=== PATIENT | female | born 1955 | race Caucasian/White ===

== ENCOUNTER → 2017-05-21 10:48 | Outpatient (CLI) | payer OTHER, SELFPAY ==
[2017-05-21 12:13] LABS: Erythrocyte Sedimentation Rate 26 mm/hr (0-30)
[2017-05-21 12:18] LABS: Hematocrit 39.1 % (37-47); Hemoglobin 10.9 g/dl (12.0-15.0); Mean Corp Hgb Conc 27.9 g/gl (32-36); Mean Corpuscular Hgb 19.4 pg (27.0-32.0); Mean Corpuscular Volume 69.6 fL (81-99); Mean Platelet Vol. 10.9 fl (6.2-12.0); Platelet Count 321 K/mm3 (150-450); RBC Distribution Width CV 16.2 % (11.6-14.6); RBC Distribution Width SD 40.8 fl (35.1-43.9); Red Blood Count 5.62 M/mm3 (4.2-5.4)
[2017-05-21 12:28] LABS: ALB/GLOB Ratio 0.8 RATIO (0.9-2.4); AST(SGOT) 16 U/L (15-37); Alanine Aminotransfer ALT/SGPT 20 U/L (13-56); Albumin, Serum 3.2 g/dL (3.2-5.0); Alkaline Phosphatase 50 U/L (45-117); Anion Gap 6 (5-15); BUN 13 mg/dL (7-18); BUN/Creat Ratio 17.9 RATIO (10-20); CRP 5.69 mg/L (0.0-3.0); Calcium,Total 8.4 mg/dL (8.5-10.1); Chloride 103 mmol/L (98-107); Creatinine, Serum 0.73 mg/dL (0.55-1.02); EST Glomerular Filtration Rate 86 mL/min (>60); Est Glom Filt Rate - Afr Amer 104 mL/min (>60); Globulin 3.8 g/dL (2.2-4.2); Glucose 100 mg/dL (74-106); Potassium 4.2 mmol/L (3.5-5.1); Sodium Level 138 mmol/L (136-145)
[2017-05-21 12:44] LABS: Scan Indicated on CBC? Y/N YES- FLAGS NOTED
== END ==
PROVIDERS: Family Provider Family Medicine; PCP Family Medicine; Visit Provider Internal Medicine Gastroenterology
DX: K50.90 Crohn's disease, unspecified, without complications (principal)
CPT/HCPCS: 36415; 80053; 85027; 85652; 86140

== ENCOUNTER → 2017-06-09 15:34 | Outpatient (CLI) | payer OTHER, SELFPAY ==
[2017-06-09 17:51] LABS: AST(SGOT) 12 U/L (15-37); Alanine Aminotransfer ALT/SGPT 16 U/L (13-56); Albumin, Serum 3.5 g/dL (3.2-5.0); Alkaline Phosphatase 52 U/L (45-117); Bilirubin, Direct 0.09 mg/dL (0.00-0.30); Protein, Total 7.5 g/dL (6.4-8.2)
[2017-06-09 17:58] LABS: Absolute Lymphocyte Count 1.08 X10^3/ul (0.83-4.51); Basophil# 0.08 X10^3/uL; Basophil% 0.7 % (0-1); Eosinophil# 0.08 X10^3/uL; Eosinophils% 0.7 % (0-5); Hematocrit 43.8 % (37-47); Hemoglobin 12.7 g/dl (12.0-15.0); Lymphocyte # 1.08 X10^3/ul (4.0); Mean Corpuscular Hgb 21.1 pg (27.0-32.0); Mean Corpuscular Volume 72.6 fL (81-99); Mean Platelet Vol. 11.5 fl (6.2-12.0); Monocyte# 0.55 X10^3/uL; Monocyte% 5.1 % (0-10); Neutrophil # 9.03 X10^3/uL (2.7-7.7); Neutrophil % 83.3 % (47-70); Platelet Count 310 K/mm3 (150-450); RBC Distribution Width SD 58.9 fl (35.1-43.9); Red Blood Count 6.03 M/mm3 (4.2-5.4); White Blood Count 10.8 K/mm3 (4.4-11.0)
[2017-06-09 17:59] LABS: Differential Indicated SCAN CRITERIA MET; POSITIVE COUNT NO; POSITIVE DIFFERENTIAL NO; POSITIVE MORPHOLOGY YES
[2017-06-09 18:19] LABS: Differential Comment SCANNED
== END ==
PROVIDERS: Family Provider Family Medicine; PCP Family Medicine; Visit Provider Internal Medicine Gastroenterology
DX: K50.90 Crohn's disease, unspecified, without complications (principal)
CPT/HCPCS: 36415; 80076; 85025

== ENCOUNTER → 2017-07-07 11:06 | Outpatient (CLI) | payer OTHER, SELFPAY ==
[2017-07-07 12:55] LABS: AST(SGOT) 12 U/L (15-37); Alanine Aminotransfer ALT/SGPT 16 U/L (13-56); Albumin, Serum 3.1 g/dL (3.2-5.0); Alkaline Phosphatase 48 U/L (45-117); Bilirubin, Direct 0.08 mg/dL (0.00-0.30); Globulin 3.5 g/dL (2.2-4.2); Protein, Total 6.6 g/dL (6.4-8.2)
[2017-07-07 13:32] LABS: Absolute Lymphocyte Count 1.12 X10^3/ul (0.83-4.51); Absolute Neutrophil Count 4.2 X10^3/uL (2.0-7.7); Basophil# 0.08 X10^3/uL; Basophil% 1.3 % (0-1); Eosinophil# 0.13 X10^3/uL; Eosinophils% 2.1 % (0-5); Hematocrit 43.2 % (37-47); Hemoglobin 13.3 g/dl (12.0-15.0); Lymphocyte # 1.12 X10^3/ul (4.0); Lymphocyte % 18.2 % (19-41); Mean Corp Hgb Conc 30.8 g/gl (32-36); Mean Corpuscular Hgb 23.5 pg (27.0-32.0); Mean Corpuscular Volume 76.2 fL (81-99); Mean Platelet Vol. 10.9 fl (6.2-12.0); Monocyte# 0.57 X10^3/uL; Monocyte% 9.3 % (0-10); Neutrophil # 4.23 X10^3/uL (2.7-7.7); Neutrophil % 68.9 % (47-70); Platelet Count 283 K/mm3 (150-450); RBC Distribution Width CV 25.2 % (11.6-14.6); RBC Distribution Width SD 67.8 fl (35.1-43.9); Red Blood Count 5.67 M/mm3 (4.2-5.4); White Blood Count 6.1 K/mm3 (4.4-11.0)
[2017-07-07 13:33] LABS: Differential Indicated SCAN CRITERIA MET; POSITIVE COUNT NO; POSITIVE DIFFERENTIAL NO; POSITIVE MORPHOLOGY YES
== END ==
PROVIDERS: Family Provider Family Medicine; PCP Family Medicine; Visit Provider Internal Medicine Gastroenterology
DX: K50.90 Crohn's disease, unspecified, without complications (principal)
CPT/HCPCS: 36415; 80076; 85025

== ENCOUNTER → 2017-07-28 10:14 | Outpatient (CLI) | payer OTHER, SELFPAY ==
--- NOTE | 2017-07-28 10:15 | BI_ITS ---
MAMMOGRAPHY - BILATERAL SCREENING REASON FOR EXAM: Female, 62 years old. Routine annual screening examination. PERTINENT HISTORY: Non-contributory. History of prior bilateral breast reduction surgery. TECHNIQUE: Digital bilateral breast papa (3D mammographic acquisition) in the CC and MLO projections. 2-D mediolateral oblique (MLO) and craniocaudad (CC) views of both breasts were obtained. CAD: Full Field Digital Mammography with Computer Added Detection was performed. COMPARISON: Comparison is made with prior study dated April 18, 2016 and January 13, 2015. FINDINGS: Breast Composition: There are scattered areas of fibroglandular density. There are no dominant masses or suspicious calcifications. The patient is status post bilateral reduction surgery. Once again, a bandlike density is seen in the upper outer aspect of the left breast as well as in the deep mid medial portion of the right breast. Calcifications are seen within it most likely representing postoperative changes and calcifications. The calcifications have progressed in the left breast as compared to prior study. No other significant abnormalities are identified. BI/SCREENING MAMM (CAD), BILAT IMPRESSION: Stable bilateral screening mammogram. Yearly follow-up mammogram recommended. (A) ASSESSMENT CATEGORY: BIRADS Category 2: Benign. A letter regarding these results will be sent to the patient by the facility within 30 days. Approximately 10% of breast cancers are not detected by mammography. A normal mammogram should not delay biopsy of a clinically suspicious abnormality. [id number] Electronically Signed: Bob Oro MD at 12:24 EDT Tel [phone], Service support ,
== END ==
PROVIDERS: Family Provider Family Medicine; PCP Family Medicine; Visit Provider Obstetrics & Gynecology
DX: Z12.31 Encounter for screening mammogram for malignant neoplasm of breast (principal)
CPT/HCPCS: 77063; 77067

== ENCOUNTER → 2017-08-12 08:00 | Outpatient (CLI) | payer OTHER, SELFPAY ==
--- NOTE | 2017-08-12 08:00 | DT_ITS ---
This patient was seen during an EMR downtime August 11, 2017 - August 18, 2017. This patient may have a combination of paper and electronic documentation or all paper documentation. All documentation is viewable within the e-chart portion of [employer] for each patient visit.
== END ==
PROVIDERS: Family Provider Family Medicine; PCP Family Medicine; Visit Provider Obstetrics & Gynecology
DX: Z12.4 Encounter for screening for malignant neoplasm of cervix (principal)
CPT/HCPCS: 88175; G0145

== ENCOUNTER → 2017-09-15 11:04 | Outpatient (CLI) | payer OTHER, SELFPAY ==
[2017-09-15 12:10] LABS: Absolute Lymphocyte Count 0.79 X10^3/ul (0.83-4.51); Absolute Neutrophil Count 3.8 X10^3/uL (2.0-7.7); Basophil# 0.06 X10^3/uL; Basophil% 1.1 % (0-1); Eosinophil# 0.12 X10^3/uL; Eosinophils% 2.3 % (0-5); Hematocrit 43.7 % (37-47); Hemoglobin 13.5 g/dl (12.0-15.0); Lymphocyte # 0.79 X10^3/ul (4.0); Mean Corp Hgb Conc 30.9 g/gl (32-36); Mean Corpuscular Hgb 25.7 pg (27.0-32.0); Mean Corpuscular Volume 83.1 fL (81-99); Mean Platelet Vol. 11.1 fl (6.2-12.0); Monocyte# 0.48 X10^3/uL; Monocyte% 9.1 % (0-10); Neutrophil % 72.3 % (47-70); Platelet Count 289 K/mm3 (150-450); RBC Distribution Width CV 15.6 % (11.6-14.6); RBC Distribution Width SD 45.1 fl (35.1-43.9); Red Blood Count 5.26 M/mm3 (4.2-5.4); White Blood Count 5.3 K/mm3 (4.4-11.0)
[2017-09-15 12:11] LABS: AST(SGOT) 13 U/L (15-37); Alanine Aminotransfer ALT/SGPT 23 U/L (13-56); Albumin, Serum 3.1 g/dL (3.2-5.0); Alkaline Phosphatase 38 U/L (45-117); Bilirubin, Direct 0.08 mg/dL (0.00-0.30); Globulin 3.5 g/dL (2.2-4.2); Protein, Total 6.6 g/dL (6.4-8.2)
[2017-09-15 12:24] LABS: POSITIVE COUNT NO; POSITIVE DIFFERENTIAL NO; POSITIVE MORPHOLOGY NO
== END ==
PROVIDERS: Family Provider Family Medicine; PCP Family Medicine; Visit Provider Internal Medicine Gastroenterology
DX: K50.90 Crohn's disease, unspecified, without complications (principal)
CPT/HCPCS: 36415; 80076; 85025

== ENCOUNTER → 2017-10-17 15:00 | Outpatient (CLI) | payer OTHER, SELFPAY ==
[2017-10-17 17:33] LABS: Absolute Lymphocyte Count 0.88 X10^3/ul (0.83-4.51); Absolute Neutrophil Count 4.7 X10^3/uL (2.0-7.7); Basophil# 0.05 X10^3/uL; Basophil% 0.8 % (0-1); Eosinophil# 0.06 X10^3/uL; Hematocrit 43.4 % (37-47); Hemoglobin 13.8 g/dl (12.0-15.0); Lymphocyte # 0.88 X10^3/ul (4.0); Lymphocyte % 14.1 % (19-41); Mean Corp Hgb Conc 31.8 g/gl (32-36); Mean Corpuscular Hgb 26.8 pg (27.0-32.0); Mean Corpuscular Volume 84.4 fL (81-99); Mean Platelet Vol. 11.3 fl (6.2-12.0); Monocyte# 0.48 X10^3/uL; Monocyte% 7.7 % (0-10); Neutrophil # 4.74 X10^3/uL (2.7-7.7); Neutrophil % 76.1 % (47-70); POSITIVE COUNT NO; POSITIVE DIFFERENTIAL NO; POSITIVE MORPHOLOGY NO; Platelet Count 302 K/mm3 (150-450); RBC Distribution Width CV 14.6 % (11.6-14.6); RBC Distribution Width SD 44.4 fl (35.1-43.9); Red Blood Count 5.14 M/mm3 (4.2-5.4); White Blood Count 6.2 K/mm3 (4.4-11.0)
== END ==
PROVIDERS: Family Provider Family Medicine; PCP Family Medicine; Visit Provider Internal Medicine Gastroenterology
DX: K50.90 Crohn's disease, unspecified, without complications (principal)
CPT/HCPCS: 36415; 85025

== ENCOUNTER → 2017-11-06 15:16 | Outpatient (CLI) | payer OTHER, SELFPAY ==
[2017-11-06 18:34] LABS: Ferritin 22 ng/mL (8-252); Iron 31 ug/dL (50-170); T4 Free Direct 0.99 ng/dL (0.76-1.46); Thyroid Stim Hormone (TSH) 1.52 uIU/mL (0.358-3.74)
[2017-11-07 09:22] LABS: Vitamin B12 259 pg/mL (211-911)
== END ==
PROVIDERS: Family Provider Family Medicine; PCP Family Medicine; Visit Provider Family Medicine
DX: E04.2 Nontoxic multinodular goiter (principal); D64.9 Anemia, unspecified; I48.91 Unspecified atrial fibrillation; K50.90 Crohn's disease, unspecified, without complications
CPT/HCPCS: 36415; 82607; 82728; 83540; 84439; 84443

== ENCOUNTER → 2017-12-22 13:06 | Outpatient (CLI) | payer OTHER, SELFPAY ==
[2017-12-22 14:03] LABS: Absolute Neutrophil Count 2.8 X10^3/uL (2.0-7.7); Basophil# 0.04 X10^3/uL; Basophil% 0.9 % (0-1); Eosinophil# 0.11 X10^3/uL; Eosinophils% 2.3 % (0-5); Hematocrit 44.7 % (37-47); Hemoglobin 14.2 g/dl (12.0-15.0); Lymphocyte % 25.6 % (19-41); Mean Corp Hgb Conc 31.8 g/gl (32-36); Mean Corpuscular Hgb 26.9 pg (27.0-32.0); Mean Corpuscular Volume 84.8 fL (81-99); Mean Platelet Vol. 11.5 fl (6.2-12.0); Monocyte# 0.51 X10^3/uL; Monocyte% 10.9 % (0-10); Neutrophil # 2.82 X10^3/uL (2.7-7.7); Neutrophil % 60.1 % (47-70); Platelet Count 323 K/mm3 (150-450); RBC Distribution Width CV 14.4 % (11.6-14.6); Red Blood Count 5.27 M/mm3 (4.2-5.4); White Blood Count 4.7 K/mm3 (4.4-11.0)
[2017-12-22 14:07] LABS: POSITIVE COUNT NO; POSITIVE DIFFERENTIAL NO; POSITIVE MORPHOLOGY NO
[2017-12-22 14:20] LABS: AST(SGOT) 20 U/L (15-37); Alanine Aminotransfer ALT/SGPT 23 U/L (13-56); Albumin, Serum 3.4 g/dL (3.2-5.0); Alkaline Phosphatase 43 U/L (45-117); Bilirubin, Direct 0.14 mg/dL (0.00-0.30); Protein, Total 7.4 g/dL (6.4-8.2)
== END ==
PROVIDERS: Family Provider Family Medicine; PCP Family Medicine; Referring Provider Internal Medicine Gastroenterology; Visit Provider Internal Medicine Gastroenterology
DX: K50.90 Crohn's disease, unspecified, without complications (principal)
CPT/HCPCS: 36415; 80076; 85025

== ENCOUNTER → 2018-01-15 08:31 | Outpatient (CLI) | payer OTHER, SELFPAY ==
[2018-01-15 10:33] LABS: Absolute Lymphocyte Count 1.11 X10^3/ul (0.83-4.51); Absolute Neutrophil Count 3.1 X10^3/uL (2.0-7.7); Basophil# 0.03 X10^3/uL; Basophil% 0.6 % (0-1); Eosinophil# 0.11 X10^3/uL; Eosinophils% 2.3 % (0-5); Hematocrit 43.3 % (37-47); Hemoglobin 13.3 g/dl (12.0-15.0); Lymphocyte # 1.11 X10^3/ul (4.0); Lymphocyte % 22.7 % (19-41); Mean Corp Hgb Conc 30.7 g/gl (32-36); Mean Corpuscular Hgb 26.4 pg (27.0-32.0); Mean Corpuscular Volume 85.9 fL (81-99); Monocyte# 0.52 X10^3/uL; Monocyte% 10.7 % (0-10); Neutrophil % 63.5 % (47-70); Platelet Count 248 K/mm3 (150-450); RBC Distribution Width CV 14.9 % (11.6-14.6); Red Blood Count 5.04 M/mm3 (4.2-5.4); White Blood Count 4.9 K/mm3 (4.4-11.0)
[2018-01-15 10:36] LABS: POSITIVE COUNT NO; POSITIVE DIFFERENTIAL NO; POSITIVE MORPHOLOGY NO
== END ==
PROVIDERS: Family Provider Family Medicine; PCP Family Medicine; Referring Provider Internal Medicine Gastroenterology; Visit Provider Internal Medicine Gastroenterology
DX: K50.90 Crohn's disease, unspecified, without complications (principal)
CPT/HCPCS: 36415; 85025

== ENCOUNTER 2018-01-25 14:19 | Emergency (ER) | payer OTHER, SELFPAY ==
[2018-01-25 14:20] VITALS: BP 152/76; PULSE 70; RESP 18; TEMP 36.3; O2SAT 98; BMI 34.4
--- NOTE | 2018-01-25 14:52 | ED.VISSUMM ---
- ER Visit Summary Date of Service: 01/25/18 Chief Complaint: [] Lumbar back pain for about a week after straining to lift objects History of Present Illness: The patient is a 62 F [] she of chronic lumbar back pain, Crohn's disease, she indicates her lumbar back pain related to disc disease and spinal stenosis she indicates a few days ago she was basically pulling objects up some stairs the next day she felt hot constant pain to her lumbar back that is worse when she moves or leans back turns etc. better when she rests she has had no direct trauma any part of her body her bowel bladder habits have been normal she had no fever or cough she is under pain management and she receives back injections and other therapies for her back, her Crohn's is also stable there is a consideration to change her to a different immunomodulating drug, she has had no fever no cough she does not believe this back illness related to her Crohn's it is very consistent with prior back flare she has had, she not been told she is back surgery Physical Examination: [] 152/76 General, no distress resting comfortably HEENT is generally unremarkable The neck is supple no adenopathy Cardiovascular, regular rate and rhythm Lungs, clear bilateral Abdomen, soft nontender Extremities, no clubbing cyanosis or edema Pain to the mid lumbar level. She is in no distress palpation of the area shows really no significant pain there is no bruising contusion or skin rash or lesion, Neurologic, awake alert answering questions appropriately moving all 4 extremities, she is able to stand and walk she can toe raise heel raise knee bend and walk about the room without difficulty there is no signs of cauda equina Test Results: [] Emergency Department Course and Treatment: [] Long conversation with the patient we discussed imaging she deferred that we discussed the differential she believes this is related to her chronic lumbar back condition and not related to something else she simply wants something for the pain, at this time she is treated with morphine IM Flexeril she will be discharged continue her home medications and she will follow with her pain management doctors tomorrow Treatment Plan: [] Disposition: [] Home stable Impression: [] Acute exacerbation of chronic lumbar back disorder This note was generated with [employer] software. It may contain incorrect words, spelling, and punctuation that were not noted in review of the chart prior to signing ED Disposition - Plan for ED Patient: Chief Complaint: Back Referrals: Matthew Wallace DO [Primary Care Provider] -
[2018-01-25] MEDS: morphine 8 MG/ML Syringe SC (14:55)
--- NOTE | 2018-01-25 14:57 | ED.DEP ---
ED Disposition - Plan for ED Patient: Chief Complaint: Back Instructions: ED Flank Pain Uncertain Cause, ED Spasm Back No Trauma Referrals: Matthew Wallace DO [Primary Care Provider] - Additional Instructions: Follow-up with all of your outpatient providers for further management tomorrow
[2018-01-25 15:22] VITALS: BP 128/56; PULSE 74; RESP 18; O2SAT 96
== END 2018-01-25 15:36 | disposition home or self-care (01) ==
LOC: ED 15:10
PROVIDERS: Emergency Provider Emergency Medicine; Family Provider Family Medicine; PCP Family Medicine
DX: S39.012A Strain of muscle, fascia and tendon of lower back, initial encounter (principal); X50.0XXA Overexertion from strenuous movement or load, initial encounter; Y93.89 Activity, other specified; K50.90 Crohn's disease, unspecified, without complications; Z79.82 Long term (current) use of aspirin; Z79.899 Other long term (current) drug therapy
CPT/HCPCS: 96372; 99283

== ENCOUNTER → 2018-02-03 09:14 | Outpatient (CLI) | payer OTHER, SELFPAY ==
[2018-01-25 14:20] VITALS: BMI 34.4
--- NOTE | 2018-02-03 09:30 | MRI_ITS ---
STUDY: MRI LUMBAR SPINE WITHOUT CONTRAST REASON FOR EXAM: Female, 62 years old. LOW BACK PAIN, LEG WEAKNESS. TECHNIQUE: Standardized fat and water weighted pulse sequences were obtained in the sagittal and axial planes. COMPARISON: March 06, 2011 FINDINGS: T12-L1: Normal endplates. Normal disc height, hydration and morphology. Normal bilateral facet joints. Normal central canal and bilateral lateral recesses. Normal bilateral intervertebral neural foramina. Normal lumbar lordosis. There is no substantial scoliosis. Normal conus medullaris that terminates at the T12 L1-2: Normal endplates. Normal disc height, hydration and morphology. Normal bilateral facet joints. Normal central canal and bilateral lateral recesses. Normal bilateral intervertebral neural foramina. L2-3: Normal endplates. Normal disc height, hydration and morphology. Normal bilateral facet joints. Normal central canal and bilateral lateral recesses. Normal bilateral intervertebral neural foramina. L3-4: There is minimal disc space narrowing and endplates spondylosis. There is decreased mild disc bulge and moderate facet hypertrophy with mild central canal and mild bilateral foraminal stenosis. L4-5: There is minimal disc space narrowing and endplates spondylosis. There is moderate facet arthropathy with grade 1 anterolisthesis and disc bulging with mild central canal stenosis. There is mild bilateral foraminal stenosis. Findings are stable since the prior examination L5-S1: There is minimal disc space narrowing and endplates spondylosis. There is mild facet adenopathy. Normal visualized sacral ala. Normal visualized paraspinous soft tissue structures. MRI/Spine Lumbar (Routine) IMPRESSION: Mild multilevel degenerative changes. L4/L5: Stable grade 1 anterolisthesis. Electronically Signed: Nav Ruiz MD at 9:24 EST Tel , Service support ,
--- OUTSIDE RECORDS SUMMARY | 2018-03-17 22:30 | XMS RPT_ITS ---
:1955 Author Organization OHIP Support Name Relationship Address Phone DANIEL ISADORA Unavailable [address] + [place] [address] R Unavailable Unavailable Unavailable REILLY, IBETH Unavailable Unavailable + JUSTICE, ISADORA Unavailable [address] + [place] [address] R Unavailable Unavailable Unavailable REILLY, IBETH Unavailable Unavailable + [place] [address] JUSTICE, ISADORA Unavailable [address] + [place] [address] R Unavailable Unavailable Unavailable REILLY, IBETH Unavailable Unavailable + [place] [address] JUSTICE, ISADORA Unavailable Unavailable + [place] [address] R Unavailable Unavailable Unavailable REILLY, IBETH Unavailable Unavailable + [place] [address] JUSTICE, ISADORA Unavailable Unavailable + [place] [address] R Unavailable Unavailable Unavailable REILLY, IBETH Unavailable Unavailable + [place] [address] JUSTICE, ISADORA Unavailable Unavailable + [place] [address] R Unavailable Unavailable Unavailable REILLY, IBETH Unavailable Unavailable + [place] [address] JUSTICE, ISADORA Unavailable Unavailable + [place] [address] R Unavailable Unavailable Unavailable REILLY, IBETH Unavailable Unavailable + [place] [address] JUSTICE, ISADORA Unavailable Unavailable + [place] [address] R Unavailable Unavailable Unavailable REILLY, IBETH Unavailable Unavailable + [place] [address] JUSTICE, ISADORA Unavailable Unavailable + [place] [address] R Unavailable Unavailable Unavailable REILLY, IBETH Unavailable Unavailable + [place] [address] ISADORA SANCHEZ Unavailable Unavailable + [place] [address] R Unavailable Unavailable Unavailable REILLY, IBETH Unavailable Unavailable + [place] [address] R Unavailable Unavailable Unavailable REILLY, IBETH Unavailable Unavailable + [place] [address] R Unavailable Unavailable Unavailable REILLY, IBETH Unavailable Unavailable + [place] [address] R Unavailable Unavailable Unavailable REILLY, IBETH Unavailable Unavailable + [place] [address] R Unavailable Unavailable Unavailable R Unavailable Unavailable Unavailable REILLY, IBETH Unavailable . + [place] [address] BAUGHAN, LEFTY Unavailable [address] + [place] [address] JUSTICE, KAREL Unavailable [address] + [place] [address] R Unavailable Unavailable Unavailable BAUGHAN, LEFTY Unavailable [address] + [place] [address] JUSTICE, KAREL Unavailable [address] + [place] [address] R Unavailable Unavailable Unavailable BAUGHAN, LEFTY Unavailable [address] + [place] [address] JUSTICE, KAREL Unavailable [address] + [place] [address] R Unavailable Unavailable Unavailable BAUGHAN, LEFTY Unavailable [address] + [place] [address] JUSTICE, KAREL Unavailable [address] + [place] [address] R Unavailable Unavailable Unavailable BAUGHAN, LEFTY Unavailable [address] + [place] [address] JUSTICE, KAREL Unavailable [address] + [place] [address] R Unavailable Unavailable Unavailable Care Team Providers Name Role Phone Andrew Keane Attending Unavailable Matthew Wallace Referring Unavailable Jabour, Vincent Attending Unavailable Jabour, Vincent Referring Unavailable Madison, Matthew Primary Care Unavailable Francisco Blair Attending Unavailable Johnnie, Francisco Referring Unavailable Madison, Matthew Primary Care Unavailable Madison, Matthew Primary Care Unavailable Nalini Evans Attending Unavailable Jabour, Vincent Attending Unavailable Jabour, Vincent Referring Unavailable Madison, Matthew Primary Care Unavailable Jabour, Vincent Attending Unavailable Jabour, Vincent Referring Unavailable Madison, Matthew Primary Care Unavailable Madison, Matthew Attending Unavailable Madison, Matthew Primary Care Unavailable Jabour, Vincent Attending Unavailable Jabour, Vincent Referring Unavailable Madison, Matthew Primary Care Unavailable Jabour, Vincent Attending Unavailable Jabour, Vincent Referring Unavailable Madison, Matthew Primary Care Unavailable Benekos, Carola Attending Unavailable Benekos, Carola Referring Unavailable Madison, Matthew Primary Care Unavailable Benekos, Carola Attending Unavailable Benekos, Carola Referring Unavailable Madison, Matthew Primary Care Unavailable Germán Dave Attending Unavailable Madison, Matthew Referring Unavailable Madison, Matthew Primary Care Unavailable Jabour, Vincent Attending Unavailable Jabour, Vincent Referring Unavailable Madison, Matthew Primary Care Unavailable Rhiannon Chávez Attending Unavailable Jabour, Vincent Attending Unavailable Madison, Matthew Primary Care Unavailable Jabour, Vincent Referring Unavailable Jabour, Vincent Attending Unavailable Madison, Matthew Primary Care Unavailable Samantha Marx NURSE SANE-C Attending Unavailable Madison, Matthew Primary Care Unavailable Stevan Saldana D.O. Attending Unavailable Madison, Matthew Primary Care Unavailable Stevan Saldana D.O. Attending Unavailable Madison, Matthew Referring Unavailable PROBLEMS PROBLEMS DATE TYPE CONDITION / CODE ATTENDING STATUS SOURCE 02/19/2018 Unknown Z20.1 - Contact Stevan Saldana Active [place] with and D.O. 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 / Z20.1(ICD-10) 02/12/2018 Unknown I48.0 - Paroxysmal Lakhwinder, Andrew Active [place] atrial fibrillation Community / I48.0(ICD-10) Hospital Repository 02/12/2018 Unknown I10 - Essential Lakhwinder, Taylor Active [place] (primary) Community hypertension / Hospital I10(ICD-10) Repository 11/06/2017 Unknown E04.2 - Nontoxic Madison, Matthew Active [place] multinodular goiter Community / E04.2(ICD-10) Hospital Repository 11/06/2017 Unknown D64.9 - Anemia, Matthew Wallace Active [place] unspecified / Community D64.9(ICD-10) Hospital Repository 11/06/2017 Unknown I48.91 - Matthew Wallaec Active [place] Unspecified atrial Community fibrillation / Hospital I48.91(ICD-10) Repository 11/06/2017 Unknown K50.90 - Crohn's Matthew Wallace Active [place] disease, Community unspecified, Hospital without Repository complications / K50.90(ICD-10) 09/03/2017 Unknown Z12.4 - Encounter Carola Gary Active [place] for screening for Community malignant neoplasm Hospital of cervix / Repository Z12.4(ICD-10) 07/28/2017 Unknown Z12.31 - Encounter AmintasCarola Active [place] for screening Community mammogram for Hospital malignant neoplasm Repository of breast / Z12.31(ICD-10) 07/08/2017 Unknown R00.2 - Germán Dave Active [place] Palpitations / Community R00.2(ICD-10) Hospital Repository PROCEDURES PROCEDURES No Procedure Records FoundRESULTS RESULTS PULMONARY VISIT REPORT Observed: 02/19/2018 Status: F Source: [place] 11:14 AM [facility] REPOSITORY [facility] Pulmonary Medicine of [address] [place] [address] OFFICE VISIT Date of Service: 02/19/18 MR#: [id number] Acct: [id number] Name: AMANDA SANCHEZ Rep #: [id number] : 1955 Provider: Stevan Saldana D.O. Age/Sex: 62/F Location: [facility] Status: Signed Assessment AND Plan 1. IBD (inflammatory bowel disease) K52.9 Plan The patient has a history of Crohn's disease and is currently being considered for the initiation of Stelara. As part of her initial workup and interferon gamma release assay was completed and found to be positive. However, the patient does have a history of latent TB, having been treated previously in the by the health department. She has no active pulmonary symptoms. 2. TB (tuberculosis) contact Z20.1 Plan As noted above, the patient has a history of latent TB that was previously treated. A plain film chest x-ray was obtained this morning and revealed no acute cardiopulmonary process. Given that the patient is asymptomatic and has already been previously treated, there is no reason from a pulmonary perspective that she could not proceed with treatment. If there is additional concern, would recommend gastroenterology refer the patient to infectious diseases. However, at this time, I do not feel that this is warranted. Orders Orders: Plan Detail Follow Up PRN HPI HPI Comments Details: The patient is a 62-year-old female who presents to the clinic today for clearance prior to initiation of systemic immunotherapy for a diagnosis of Crohn's disease. The patient is currently being followed by Dr. Facundo Brody. 6 pages of outside medical records were personally reviewed at today's office visit. The patient does have a history of paroxysmal atrial fibrillation but is not currently anticoagulated due to a previous history of craniotomy as well as anemia related to her Crohn's disease. She does report having been exposed previously to TD her family member in the . She did follow-up with local health department and was treated for latent TB at that time. Her crater and packer is currently considering the initiation of an immunomodulating agent to treat her inflammatory bowel disease. As part of her initial workup a QuantiFERON test was completed and found to be positive. Therefore, she was referred to our office. The patient does have a history of tobacco utilization, 1 pack/day x 20 years, but quit smoking completely 15 years ago. Denies any respiratory symptoms. Specifically, she denies shortness of breath, chest pain, cough, hemoptysis, fevers, chills or night sweats. She does report that her was also treated for latent TB at the same time that she was. He is also currently on an immunomodulating medication as well. Intake Vital Signs02/19/18 Height 5 ft 10 in 02/19/18 Weight: 241 lb 02/19/18 Body Mass Index (BMI) 34.5 Intake Visit Reasons: CLEARANCE FOR STELARA Accompanied by: Self Allergies acetaminophen [From Darvocet-N] Adverse Reaction (Severe, Verified 02/19/18 08:21) GI upset hydrocodone [From Vicodin] Adverse Reaction (Severe, Verified 02/19/18 08:21) GI upset propoxyphene [From Darvocet-N] Adverse Reaction (Severe, Verified 02/19/18 08:21) GI upset cortisone Adverse Reaction (Intermediate, Verified 02/19/18 08:21) Unknown Medications aspirin 81 mg tablet,delayed release 81 mg PO QDAY 07/02/17 [History Confirmed 02/19/18] fluoxetine 40 mg capsule 40 mg PO QDAY 07/02/17 [History Confirmed 02/19/18] omeprazole 20 mg capsule,delayed release 20 mg PO QDAY 07/02/17 [History Confirmed 02/19/18] oxycodone-acetaminophen 5 mg-325 mg tablet 1 tab PO .Q4-6H PRN tab 07/02/17 [History Confirmed 02/19/18] azathioprine 50 mg tablet 150 mg PO QDAY tab 07/08/17 [History Confirmed 02/19/18] budesonide DR - ER 3 mg capsule,delayed,extended release 9 mg PO QDAY ea 07/08/17 [History Confirmed 02/19/18] ferrous sulfate 325 mg (65 mg iron) tablet 325 mg PO BID tab 07/08/17 [History Confirmed 02/19/18] multivitamin tablet 1 tab PO QDAY 07/08/17 [History Confirmed 02/19/18] sotalol 80 mg tablet 80 mg PO BID #180 tab 11/04/17 [Rx Confirmed 02/19/18] Cranberry Fruit 01/25/18 [History Confirmed 02/19/18] Cyanocobalamin (Vitamin B-12) [Vitamin B-12] 1,500 mcg PO DAILY 01/25/18 [History Confirmed 02/19/18] Pregabalin [Lyrica] 25 mg PO DAILY 01/25/18 [History Confirmed 02/19/18] Promethazine HCl 12.5 mg PO Q8H PRN 01/25/18 [History Confirmed 02/19/18] PFSH Medical History Hypertension (Chronic) Palpitations (Chronic) Hyperlipidemia (Chronic) Paroxysmal atrial fibrillation (Chronic) Shortness of breath (Acute) Surgical History Hx of craniotomy (Resolved) thyroid lobectomy (Resolved) Family History Mother CAD (coronary artery disease) Myocardial infarction Father Hypertension Brother CAD (coronary artery disease) Social History Smoking Status: Never smoker alcohol intake: never substance use type: does not use caffeine: Yes Type: carbonated beverages Number of servings: 2 what type of physical activity do you participate in: walking frequency: 3-4 times per week duration: 30-45 minutes/day seatbelt use: always do you feel safe at home: Yes Review of Systems Const CONSTITUTIONAL: Negative anorexia, body ache, chills, daytime sleepiness, fever(s), night sweats, oral thrush, stops breathing during sleep, weight loss, sleeping in chair, fatigue, weight loss, weight gain, frequent colds, seasonal allergies, other, orthopnea or headache(s) EETM Ear Nose Throat Mouth: Positive hearing normal; negative hoarseness, dry mouth in morning, change in vision, itchy eyes, eye pain, swallowing Difficulty, ear pain, nose bleed, headache(s), mouth pain, nasal congestion, nasal discharge, post nasal drip, sinus pain, sinus pressure, sore throat, other or hard of hearing Cardio Cardiovascular: Negative chest pain, chest pain at rest, chest pain with activity, irregular heart rhythm, edema, shortness of breath when lying down, palpitations, murmur or other Resp Respiratory: Positive as per HPI; negative shortness of breath, pain with cough, wheezing, chest congestion, cough, chest tightness, pain on inspiration, inhalers, increase use of rescue inhalers, snoring, apnea or other Gastro Gastrointestional: Negative bloody stools, change in appetite, difficulty swallowing, reflux, hematemesis, melena stool, loose stool, constipation or other Genitourinary: Negative blood in urine, nocturia, pain with urination or other Musc Musculoskeletal: Negative body pain, back pain, neck pain or other Skin/Breast Skin/Breast: Negative dry skin, itching, rash, unusual bruising, breast lump or other Neuro Neurological: Negative restless legs, confusion, weakness or other Psych Psychocological: Negative abnormal sleep pattern, anxiety, thoughts of hurting self/others, hopelessness or other Lymph Lymphatic: Negative easy bleeding, easy bruising, swollen lymph nodes or other Exam Const Constitutional: Positive cooperative, in no acute respiratory distress, well developed, well nourished, good hygiene, obese and conversant Head Head: Positive normocephalic and atraumatic; negative cyanosis of lips/distal nose Eyes Eye: Positive clear conjunctiva; negative nystagmus or scleral abnormality Ears Ear: Positive external ears normal and hearing normal; negative hard of hearing Nose Nose: Positive external nose normal; negative epistaxis Mouth Mouth: Positive oral mucosae normal and posterior oropharynx is adequate; negative no lesions or post nasal drip Mallampati Score: II: Mallampati Score Neck Neck: Positive normal visual inspection and trachea midline; negative lymphadenopathy Chest Wall Chest: Positive symmetric chest movement Normal AP diameter. Resp lung sounds: Positive clear to auscultation and good air exchange; negative wheezes, rhonchi or rales Cardio Cardiac: Positive regular rate, regular rhythm, S1 normal and S2 normal; negative rub, gallop or murmur GI GI: Positive normal bowel sounds and obese Soft without distention Genitourinary: Positive deferred Musc Musculoskeletal: Positive steady gait Skin Pulmonary Skin Exam: Positive intact; negative lesion, ulcers, dermal atrophy or rash Pulses Pulse: Yes Pedal pulses present: Extremities Extremities: No clubbing, No cyanosis, No edema Neuro Neurologic: Yes no focal neuro deficits, Yes cooperative, Yes conversant Lymph Lymphatic: No lymphadenopathy Psych Appearance: Positive grossly normal Mental Status: Positive mental status grossly normal Mood: Positive congruent mood Affect: Positive normal affect Coding Level of Care Code Off vis,new,level 4 Diagnoses IBD (inflammatory bowel disease) K52.9 TB (tuberculosis) contact Z20.1 02/19/18 1114 <Electronically signed by Stevan Saldana DO> Date Stevan Saldana DO Cosigner Signature: Date (if applicable) CC: Facundo Brody CHEST PA AND LATERAL Observed: 02/19/2018 Status: F Source: [place] 9:12 AM [facility] REPOSITORY [facility] Imaging Services [address] [place], [place] [address] [address] Chest PA and Lateral MR#: [id number] Acct: [id number] Name: AMANDA SANCHEZ Rep #: [id number] : 1955 F 62 From: Armen Amezcua MD PCP: Matthew Wallace DO Status: REG CLI Study: Chest PA and Lateral Date of Exam: 02/19/18 Exam# [id number] Ordering Dr: Stevan Saldana DO HISTORY: SOBShort of Breath/DyspneaRAD - Chest EXAM: XR Chest 2 Views: COMPARISON: 05/20/2013 FINDINGS: No significant change. Normal heart size. No vascular congestion, pleural effusion, or acute pulmonary infiltration. Senescent changes of the aorta and dorsal spine. RAD/Chest PA and Lateral IMPRESSION: No acute disease or significant change. at 0315 Reported and signed by: Armen Amezcua MD Electronically Signed: Armen Amezcua, at 3:13 EST Tel , Service support , CC: Stevan Saldana D.O.; Matthew Wallace DO Watch Engineer: Signed CARDIOLOGY VISIT Observed: 02/12/2018 Status: F Source: [place] REPORT 10:10 AM [facility] REPOSITORY [facility] [address] [place] [address]. [address] [place] [address] OFFICE VISIT Date of Service: 02/12/18 MR#: [id number] Acct: [id number] Name: AMANDA SANCHEZ Rep #: [id number] : 1955 Provider: Andrew Keane MD Age/Sex: 62/F Location: [facility] [place] Status: Signed HPI HPI Chief Complaint: Follow-up visit. Details: AMANDA SANCHEZ, is a 62 F who presents to the office today for a follow-up visit. She is a lady with a history of paroxysmal atrial fibrillation, hypertension, hyperlipidemia. She returns for follow-up visit. She says that she has had only occasional short episodes of tachycardia. She has tolerated the above well she has had no dizziness or diaphoresis no near syncope or syncope. She has been compliant with all her medications. She has had no neck arm or jaw discomfort suggest angina. Her physical exam today demonstrates clear lung muhammad regular rate and rhythm and no pedal edema. Intake Vital Signs02/12/18 Height 5 ft 10 in 02/12/18 Weight: 239 lb 02/12/18 Body Mass Index (BMI) 34.2 02/12/18 Blood Pressure 118/72 02/12/18 Blood Pressure Location Lt brachial Intake Visit Reasons: 7 m fu Kennel Helper Required: No Is patient in pain?: No Allergies acetaminophen [From Darvocet-N] Adverse Reaction (Severe, Verified 02/12/18 09:53) GI upset hydrocodone [From Vicodin] Adverse Reaction (Severe, Verified 02/12/18 09:53) GI upset propoxyphene [From Darvocet-N] Adverse Reaction (Severe, Verified 02/12/18 09:53) GI upset cortisone Adverse Reaction (Intermediate, Verified 02/12/18 09:53) Unknown Medications aspirin 81 mg tablet,delayed release 81 mg PO QDAY 07/02/17 [History Confirmed 02/12/18] fluoxetine 40 mg capsule 40 mg PO QDAY 07/02/17 [History Confirmed 02/12/18] omeprazole 20 mg capsule,delayed release 20 mg PO QDAY 07/02/17 [History Confirmed 02/12/18] oxycodone-acetaminophen 5 mg-325 mg tablet 1 tab PO .Q4-6H PRN tab 07/02/17 [History Confirmed 02/12/18] azathioprine 50 mg tablet 150 mg PO QDAY tab 07/08/17 [History Confirmed 02/12/18] budesonide DR - ER 3 mg capsule,delayed,extended release 9 mg PO QDAY ea 07/08/17 [History Confirmed 02/12/18] ferrous sulfate 325 mg (65 mg iron) tablet 325 mg PO BID tab 07/08/17 [History Confirmed 02/12/18] multivitamin tablet 1 tab PO QDAY 07/08/17 [History Confirmed 02/12/18] sotalol 80 mg tablet 80 mg PO BID #180 tab 11/04/17 [Rx Confirmed 02/12/18] Cranberry Fruit 01/25/18 [History Confirmed 02/12/18] Cyanocobalamin (Vitamin B-12) [Vitamin B-12] 1,500 mcg PO DAILY 01/25/18 [History Confirmed 02/12/18] Pregabalin [Lyrica] 25 mg PO DAILY 01/25/18 [History Confirmed 02/12/18] Promethazine HCl 12.5 mg PO Q8H PRN 01/25/18 [History Confirmed 02/12/18] PFSH Medical History Hypertension (Chronic) Palpitations (Chronic) Hyperlipidemia (Chronic) Paroxysmal atrial fibrillation (Chronic) Shortness of breath (Acute) Surgical History Hx of craniotomy (Resolved) thyroid lobectomy (Resolved) Family History Mother CAD (coronary artery disease) Myocardial infarction Father Hypertension Brother CAD (coronary artery disease) Social History Smoking Status: Never smoker alcohol intake: never substance use type: does not use caffeine: Yes Type: carbonated beverages Number of servings: 2 what type of physical activity do you participate in: walking frequency: 3-4 times per week duration: 30-45 minutes/day seatbelt use: always do you feel safe at home: Yes ROS Const Const: Negative for fatigue, weakness, night sweats, excessive sweating, frequent falls, headache(s) or daytime sleepiness Eyes Eyes: Negative for loss of peripheral vision, transient loss of vision, blind spots, double vision or blurry vision ENT ENT: Negative for headache(s), dizziness, balance problems, Nosebleed/epistaxis, tongue swelling or lip swelling Cardio Chest Pain: No Palpitations: No Edema: None Muscle aches with walking: None Resp Respiratory: Negative for SOB at rest, SOB orthopnea\SOB lying down, Cough, paroxysmal nocturnal dyspnea or SOB with activity GI GI: Negative nausea, vomiting, heartburn, black,tarry stools or bright, red blood in stools : Negative for hematuria Musc Musc: Negative for balance problems, muscle aches/ myalgia, muscle weakness or joint pain Skin Skin: Negative non-healing lesions, unusual bruising or rash Neuro Neuro: Negative for weakness, frequent falls, headache(s), double vision, dizziness, lightheadedness, orthostatic symptoms, blurry vision or lack of coordination Gamaliel Hematologic/Lymphatic: Negative for easy bruising or easy bleeding Endo Endo: Negative for fatigue, excessive sweating, cold intolerance, heat intolerance, increased thirst/drinking or hair loss Psych Psych: Negative for anxiety or depression Allergy Allergy/Immunology: Negative for throat swelling, Negative for tongue swelling, Negative for hives, Negative for rash, Negative for lip swelling Cardiology Exam Const Appearance: cooperative, healthy appearing, well developed, well groomed and no acute distress Nutritional Appearance: well nourished and average body habitus Orientation: alert, awake and oriented x3 Head Head: normal to inspection, normocephalic and atraumatic Ears: hearing grossly normal bilaterally and external ears normal Nose: external nose normal, nasal mucous membranes and turbinates normal, nares normal, septum normal, no nasal discharge Face and Sinus: face symmetric Mouth: oral mucosae normal, tongue normal, oropharynx normal and moist mucous membranes Teeth and gingiva: dentition normal Throat: posterior oropharynx normal, tonsils normal and uvula midline Eyes General: appearance normal, both eyes and all related structures Eyelids: eyelids normal Conjunctivae: conjunctivae normal Pupils: PERRL, normal by confrontation and accommodation normal EOM: EOM intact bilaterally Neck Neck: normal visual inspection, trachea midline and no JVD JVD: +5 Carotids: normal carotid upstroke and bounding pulses Chest Chest inspection: normal inspection of the chest, symmetric chest movement and normal respiratory effort Auscultation: Bilateral: Clear to Auscultation Cardio Palpation: normal PMI Rate: regular rate Rhythm: regular rhythm Heart sounds: S1 normal, S2 normal and normal, physiologic split S2; negative rub, gallop or murmur GI GI: normal to inspection, soft, no hepatosplenomegaly and bowel sounds present Neuro General: alert, awake, oriented x3, no focal sensory deficit, gait normal and moves all extremities Skin Skin: no rashes or lesions noted Extremities Pulses: Normal: Right Femoral Pulse, Left Femoral Pulse, Right Dorsalis Pedis Pulse, Left Dorsalis Pedis Pulse, Right Posterior Tibial Pulse, Left Posterior Tibial Pulse, Right Radial Pulse, Left Radial Pulse Lower Extremity Edema: None: Bilateral Musculoskel Musculoskeletal: No joint tenderness Psych Psychological: normal affect Assessment AND Plan 1. Paroxysmal atrial fibrillation I48.0 Plan She does have a history of paroxysmal atrial fibrillation with very rare episodes. She continues to be compliant with her sotalol which she has taken. She is not on oral anticoagulation due to previous history of craniotomy as well as anemia related to her Crohn's disease. Her chads score however remains low. We will continue to monitor the above. 2. Essential hypertension I10 Plan She does have a history of high blood pressure which is well controlled on the sotalol. No other changes will be made with regard to the above. Plan Detail Follow Up 8 Months (r) Coding Level of Care Code Off vis,est,level 3 Diagnoses Paroxysmal atrial fibrillation I48.0 Essential hypertension I10 Hypertension type: essential hypertension Coding Level of Care Code Off vis,est,level 3 Diagnoses Paroxysmal atrial fibrillation I48.0 Essential hypertension I10 Hypertension type: essential hypertension 02/12/18 1010 <Electronically signed by Andrew Keane MD> Date Andrew Keane MD Cosigner Signature: Date (if applicable) CC: Matthew Wallace DO HEPATITIS B SURFACE Collected: 02/09/2018 Status: F Source: ROBIN AG 2:35 PM [facility] REPOSITORY TYPE CODE TESTS RESULT OUT OF RANGE REFERENCE UNITS LAB L3100.0400 Negative Normal HB Negative SURF AG Result Comment: Performed at: [facility] [address] [id number] Hall Worker: Facundo Gray PhD, Phone: [phone] Performed By: #### L3100.0390 #### [facility] (refer to report for specific site) refer to report for address and phone number MISCELLANEOUS LAB Collected: 02/09/2018 Status: F Source: ROBIN PROCEDURE 2:35 PM [facility] REPOSITORY Order Comment: Comments: QFT [id number] Test(s) Ordered: QFT [id number] TYPE CODE TESTS RESULT OUT OF RANGE REFERENCE UNITS LAB L801.1541 Normal [facility] LAB TEST Result Comment: TEST RESULT LIMITS QFT-TB Plus (Client Incubated) QuantiFERON Criteria The QuantiFERON-TB Gold Plus result is determined by subtracting the Nil value from either TB antigen (Ag) tube. The mitogen tube serves as a control for the test. QuantiFERON TB1 Ag Value 0.84 IU/mL QuantiFERON TB2 Ag Value 0.94 IU/mL QuantiFERON Nil Value 0.03 IU/mL QuantiFERON Mitogen Value >10.00 IU/mL QuantiFERON-TB Gold Plus Positive Abnormal Negative The specimen received for QuantiFERON testing was incubated by the ordering institution. Specific procedures outlined in our Directory of Services and in the package insert for the QuantiFERON Gold (In Tube) test must be followed to enable for proper stimulation of cells for the production of interferon gamma. TESTING PERFORMED AT [facility]. ORIGINAL REPORT ON FILE IN LAB CONTAINS ADDITIONAL TEST SITE INFORMATION. Performed By: #### L801.1541 #### [facility] [address] [place], [place], [address] MISCELLANEOUS LAB Collected: 02/09/2018 Status: F Source: ROBIN PROCEDURE 2:35 PM [facility] REPOSITORY Order Comment: Comments: PROMETHEUS 7300 Test(s) Ordered: PROMETHEUS 7300 TYPE CODE TESTS RESULT OUT OF RANGE REFERENCE UNITS LAB L801.1541 Normal [facility] LAB TEST Result Comment: Scanned image report available in EMR Performed By: #### L801.1541 #### [facility] [address] [place], [address] CBC W/DIFF, AUTOMATED Collected: 02/09/2018 Status: F Source: SHADYSIDE 2:34 PM [facility] REPOSITORY TYPE CODE TESTS RESULT OUT OF RANGE REFERENCE UNITS LAB L100.1000 4.4-11.0 K/mm3 Normal WBC 5.1 LAB L100.1200 4.2-5.4 M/mm3 Normal RBC 5.24 LAB L100.1300 12.0-15.0 g/dl Normal HGB 14.0 LAB L100.1400 37-47 % Normal HCT 44.8 LAB L100.1500 81-99 fL Normal MCV 85.5 LAB L100.1600 27.0-32.0 pg Low MCH 26.7 LAB L100.1700 32-36 g/gl Low MCHC 31.3 LAB L100.1810 11.6-14.6 % High RDW CV 15.2 LAB L100.1820 35.1-43.9 fl High RDW SD 47.3 LAB L100.1900 150-450 K/mm3 Normal PLT 319 LAB L100.2000 6.2-12.0 fl Normal MPV 11.1 LAB L100.2100 47-70 % Normal NEUT% 67.7 LAB L100.2200 19-41 % Low LY% 18.6 LAB L100.2300 0-10 % Normal MONO% 9.8 LAB L100.2400 0-5 % Normal EO% 2.9 LAB L100.2500 0-1 % Normal BASO% 0.8 LAB L100.2550 0.0-0.9 % Normal IM GRAN % 0.200 Result Comment: IG% - Immature Granulocytes (promyelocytes, myelocytes and metamyelocytes) > 1% indicates that a LEFT SHIFT is Present. LAB L100.2620 2.0-7.7 X10 3/uL Normal Absolute Neut 3.5 LAB L100.2720 0.83-4.51 X10 3/ul Normal Absolute Lymph 0.95 Performed By: #### L100.0100 #### [facility] [address] [place], [address] SPINE LUMBAR Observed: 02/03/2018 Status: F Source: SHADYSIDE (ROUTINE) 9:31 AM [facility] REPOSITORY [facility] Imaging Services [address] [place] [address] Spine Lumbar (Routine) MR#: [id number] Acct: [id number] Name: AMANDA SANCHEZ Rep #: [id number] : 1955 F 62 From: Nav MIN: Matthew Wallace DO Status: REG CLI Study: Spine Lumbar (Routine) Date of Exam: 02/03/18 Exam# [id number] Ordering Dr: Francisco Blair MD STUDY: MRI LUMBAR SPINE WITHOUT CONTRAST REASON FOR EXAM: Female, 62 years old. LOW BACK PAIN, LEG WEAKNESS. TECHNIQUE: Standardized fat and water weighted pulse sequences were obtained in the sagittal and axial planes. COMPARISON: March 06, 2011 FINDINGS: T12-L1: Normal endplates. Normal disc height, hydration and morphology. Normal bilateral facet joints. Normal central canal and bilateral lateral recesses. Normal bilateral intervertebral neural foramina. Normal lumbar lordosis. There is no substantial scoliosis. Normal conus medullaris that terminates at the T12 L1-2: Normal endplates. Normal disc height, hydration and morphology. Normal bilateral facet joints. Normal central canal and bilateral lateral recesses. Normal bilateral intervertebral neural foramina. L2-3: Normal endplates. Normal disc height, hydration and morphology. Normal bilateral facet joints. Normal central canal and bilateral lateral recesses. Normal bilateral intervertebral neural foramina. L3-4: There is minimal disc space narrowing and endplates spondylosis. There is decreased mild disc bulge and moderate facet hypertrophy with mild central canal and mild bilateral foraminal stenosis. L4-5: There is minimal disc space narrowing and endplates spondylosis. There is moderate facet arthropathy with grade 1 anterolisthesis and disc bulging with mild central canal stenosis. There is mild bilateral foraminal stenosis. Findings are stable since the prior examination L5-S1: There is minimal disc space narrowing and endplates spondylosis. There is mild facet adenopathy. Normal visualized sacral ala. Normal visualized paraspinous soft tissue structures. MRI/Spine Lumbar (Routine) IMPRESSION: Mild multilevel degenerative changes. L4/L5: Stable grade 1 anterolisthesis. Electronically Signed: Nav Ruiz MD at 9:24 EST Tel , Service support , CC: Francisco Blair; Matthew Wallace DO Watch Engineer: Signed EMERGENCY DEPARTMENT Observed: 01/25/2018 Status: F Source: SHADYSIDE SUMMARY 3:44 PM [facility] REPOSITORY [facility] Medical Records Department [address] [place] [address] Emergency Department Summary 01/25/18 1452 MR#: [id number] Acct: [id number] Name: AMANDA SANCHEZ Rep #: [id number] : 1955 62 From: Nalini Evans MD PCP: Matthew Wallace DO Status: DEP ER - ER Visit Summary Date of Service: 01/25/18 Chief Complaint: [] Lumbar back pain for about a week after straining to lift objects History of Present Illness: The patient is a 62 F [] she of chronic lumbar back pain, Crohn's disease, she indicates her lumbar back pain related to disc disease and spinal stenosis she indicates a few days ago she was basically pulling objects up some stairs the next day she felt hot constant pain to her lumbar back that is worse when she moves or leans back turns etc. better when she rests she has had no direct trauma any part of her body her bowel bladder habits have been normal she had no fever or cough she is under pain management and she receives back injections and other therapies for her back, her Crohn's is also stable there is a consideration to change her to a different immunomodulating drug, she has had no fever no cough she does not believe this back illness related to her Crohn's it is very consistent with prior back flare she has had, she not been told she is back surgery Physical Examination: [] 152/76 General, no distress resting comfortably HEENT is generally unremarkable The neck is supple no adenopathy Cardiovascular, regular rate and rhythm Lungs, clear bilateral Abdomen, soft nontender Extremities, no clubbing cyanosis or edema Pain to the mid lumbar level. She is in no distress palpation of the area shows really no significant pain there is no bruising contusion or skin rash or lesion, Neurologic, awake alert answering questions appropriately moving all 4 extremities, she is able to stand and walk she can toe raise heel raise knee bend and walk about the room without difficulty there is no signs of cauda equina Test Results: [] Emergency Department Course and Treatment: [] Long conversation with the patient we discussed imaging she deferred that we discussed the differential she believes this is related to her chronic lumbar back condition and not related to something else she simply wants something for the pain, at this time she is treated with morphine IM Flexeril she will be discharged continue her home medications and she will follow with her pain management doctors tomorrow Treatment Plan: [] Disposition: [] Home stable Impression: [] Acute exacerbation of chronic lumbar back disorder This note was generated with [employer] software. It may contain incorrect words, spelling, and punctuation that were not noted in review of the chart prior to signing ED Disposition - Plan for ED Patient: Chief Complaint: Back Referrals: Matthew Wallace DO [Primary Care Provider] - What to do if you have Problems For any increased pain, shortness of breath, bleeding, nausea or vomiting, chest pain, or any unexpected problems, contact your Primary Care Provider. Call [facility] ([phone]) or report to the closest Emergency Room. Call 911 if necessary. 01/25/18 1544 <Electronically signed by Nalini Evans MD> Date Nalini Evans MD Cosigner Signature (If Indicated): Date CC: Matthew Wallace DO DISCHARGE INSTRUCTION Observed: 01/25/2018 Status: F Source: ROBIN 2:58 PM [facility] REPOSITORY [facility] Medical Records Department [address] [place] [address] Discharge Instruction 01/25/18 1457 MR#: [id number] Acct: [id number] Name: AMANDA SANCHEZ Rep #: [id number] : 1955 62 From: Nalini Evans MD PCP: Matthew Wallace DO Status: PRE ER ED Disposition - Plan for ED Patient: Chief Complaint: Back Instructions: ED Flank Pain Uncertain Cause, ED Spasm Back No Trauma Referrals: Matthew Wallace DO [Primary Care Provider] - Additional Instructions: Follow-up with all of your outpatient providers for further management tomorrow What to do if you have Problems For any increased pain, shortness of breath, bleeding, nausea or vomiting, chest pain, or any unexpected problems, contact your Primary Care Provider. Call [facility] ([phone]) or report to the closest Emergency Room. Call 911 if necessary. 01/25/18 8714 <Electronically signed by Nalini Evans MD> Date Nalini Evans MD Cosigner Signature (If Indicated): Date CC: Matthew Wallace DO CBC W/DIFF, AUTOMATED Collected: 01/15/2018 Status: F Source: SHADYSIDE 8:37 AM [facility] REPOSITORY TYPE CODE TESTS RESULT OUT OF RANGE REFERENCE UNITS LAB L100.1000 4.4-11.0 K/mm3 Normal WBC 4.9 LAB L100.1200 4.2-5.4 M/mm3 Normal RBC 5.04 LAB L100.1300 12.0-15.0 g/dl Normal HGB 13.3 LAB L100.1400 37-47 % Normal HCT 43.3 LAB L100.1500 81-99 fL Normal MCV 85.9 LAB L100.1600 27.0-32.0 pg Low MCH 26.4 LAB L100.1700 32-36 g/gl Low MCHC 30.7 LAB L100.1810 11.6-14.6 % High RDW CV 14.9 LAB L100.1820 35.1-43.9 fl High RDW SD 46.0 LAB L100.1900 150-450 K/mm3 Normal PLT 248 LAB L100.2000 6.2-12.0 fl Normal MPV 11.0 LAB L100.2100 47-70 % Normal NEUT% 63.5 LAB L100.2200 19-41 % Normal LY% 22.7 LAB L100.2300 0-10 % High MONO% 10.7 LAB L100.2400 0-5 % Normal EO% 2.3 LAB L100.2500 0-1 % Normal BASO% 0.6 LAB L100.2550 0.0-0.9 % Normal IM GRAN % 0.200 Result Comment: IG% - Immature Granulocytes (promyelocytes, myelocytes and metamyelocytes) > 1% indicates that a LEFT SHIFT is Present. LAB L100.2620 2.0-7.7 X10 3/uL Normal Absolute Neut 3.1 LAB L100.2720 0.83-4.51 X10 3/ul Normal Absolute Lymph 1.11 Performed By: #### L100.0100 #### [facility] [address] [place], [place], [address] CBC W/DIFF, AUTOMATED Collected: 12/22/2017 Status: F Source: SHADYSIDE 1:11 PM [facility] REPOSITORY TYPE CODE TESTS RESULT OUT OF RANGE REFERENCE UNITS LAB L100.1000 4.4-11.0 K/mm3 Normal WBC 4.7 LAB L100.1200 4.2-5.4 M/mm3 Normal RBC 5.27 LAB L100.1300 12.0-15.0 g/dl Normal HGB 14.2 LAB L100.1400 37-47 % Normal HCT 44.7 LAB L100.1500 81-99 fL Normal MCV 84.8 LAB L100.1600 27.0-32.0 pg Low MCH 26.9 LAB L100.1700 32-36 g/gl Low MCHC 31.8 LAB L100.1810 11.6-14.6 % Normal RDW CV 14.4 LAB L100.1820 35.1-43.9 fl High RDW SD 44.0 LAB L100.1900 150-450 K/mm3 Normal PLT 323 LAB L100.2000 6.2-12.0 fl Normal MPV 11.5 LAB L100.2100 47-70 % Normal NEUT% 60.1 LAB L100.2200 19-41 % Normal LY% 25.6 LAB L100.2300 0-10 % High MONO% 10.9 LAB L100.2400 0-5 % Normal EO% 2.3 LAB L100.2500 0-1 % Normal BASO% 0.9 LAB L100.2550 0.0-0.9 % Normal IM GRAN % 0.200 Result Comment: IG% - Immature Granulocytes (promyelocytes, myelocytes and metamyelocytes) > 1% indicates that a LEFT SHIFT is Present. LAB L100.2620 2.0-7.7 X10 3/uL Normal Absolute Neut 2.8 LAB L100.2720 0.83-4.51 X10 3/ul Normal Absolute Lymph 1.20 Performed By: #### L100.0100 #### [facility] [address] [place], [address] LIVER PROFILE Collected: 12/22/2017 Status: F Source: ROBIN 1:11 PM [facility] REPOSITORY TYPE CODE TESTS RESULT OUT OF RANGE REFERENCE UNITS LAB L501.1500 6.4-8.2 g/dL Normal T PROT 7.4 LAB L501.1800 3.2-5.0 g/dL Normal ALB 3.4 LAB L501.1950 2.2-4.2 g/dL Normal GLOB 4.0 LAB L501.4100 15-37 U/L Normal AST 20 LAB L501.4305 45-117 U/L Low ALK P 43 LAB L501.4405 13-56 U/L Normal ALT 23 LAB L501.4600 0.20-1.00 mg/dL Normal T BILI 0.60 LAB L501.4700 0.00-0.30 mg/dL Normal D BILI 0.14 Performed By: #### L500.3400 #### [facility] [address] [place], [address] THYROID STIM HORMONE Collected: 11/06/2017 Status: F Source: ROBIN (TSH) 3:18 PM [facility] REPOSITORY TYPE CODE TESTS RESULT OUT OF RANGE REFERENCE UNITS LAB L501.9520 0.358-3.74 uIU/mL Normal TSH 1.52 Performed By: #### L501.9520, L503.6150, L503.6550, L506.0400 #### [facility] [address] [place], [address] IRON Collected: 11/06/2017 Status: F Source: SHADYSIDE 3:18 PM [facility] REPOSITORY TYPE CODE TESTS RESULT OUT OF RANGE REFERENCE UNITS LAB L503.6150 50-170 ug/dL Low IRON 31 Performed By: #### L501.9520, L503.6150, L503.6550, L506.0400 #### [facility] [address] [place], [address] FERRITIN Collected: 11/06/2017 Status: F Source: SHADYSIDE 3:18 PM [facility] REPOSITORY TYPE CODE TESTS RESULT OUT OF RANGE REFERENCE UNITS LAB L503.6550 8-252 ng/mL Normal FERRITIN 22 Performed By: #### L501.9520, L503.6150, L503.6550, L506.0400 #### [facility] [address] [place], [address] T4 FREE DIRECT Collected: 11/06/2017 Status: F Source: SHADYSIDE 3:18 PM [facility] REPOSITORY TYPE CODE TESTS RESULT OUT OF RANGE REFERENCE UNITS LAB L506.0400 0.76-1.46 ng/dL Normal T4 FREE 0.99 DIRECT Performed By: #### L501.9520, L503.6150, L503.6550, L506.0400 #### [facility] [address] [place], [address] VITAMIN B12 Collected: 11/06/2017 Status: F Source: SHADYSIDE 3:18 PM [facility] REPOSITORY TYPE CODE TESTS RESULT OUT OF RANGE REFERENCE UNITS LAB L503.0105 211-911 pg/mL Normal Vitamin B12 259 Performed By: #### L503.0105 #### [facility] [address] [place], [address] CBC W/DIFF, AUTOMATED Collected: 10/17/2017 Status: F Source: SHADYSIDE 3:08 PM [facility] REPOSITORY TYPE CODE TESTS RESULT OUT OF RANGE REFERENCE UNITS LAB L100.1000 4.4-11.0 K/mm3 Normal WBC 6.2 LAB L100.1200 4.2-5.4 M/mm3 Normal RBC 5.14 LAB L100.1300 12.0-15.0 g/dl Normal HGB 13.8 LAB L100.1400 37-47 % Normal HCT 43.4 LAB L100.1500 81-99 fL Normal MCV 84.4 LAB L100.1600 27.0-32.0 pg Low MCH 26.8 LAB L100.1700 32-36 g/gl Low MCHC 31.8 LAB L100.1810 11.6-14.6 % Normal RDW CV 14.6 LAB L100.1820 35.1-43.9 fl High RDW SD 44.4 LAB L100.1900 150-450 K/mm3 Normal PLT 302 LAB L100.2000 6.2-12.0 fl Normal MPV 11.3 LAB L100.2100 47-70 % High NEUT% 76.1 LAB L100.2200 19-41 % Low LY% 14.1 LAB L100.2300 0-10 % Normal MONO% 7.7 LAB L100.2400 0-5 % Normal EO% 1.0 LAB L100.2500 0-1 % Normal BASO% 0.8 LAB L100.2550 0.0-0.9 % Normal IM GRAN % 0.300 Result Comment: IG% - Immature Granulocytes (promyelocytes, myelocytes and metamyelocytes) > 1% indicates that a LEFT SHIFT is Present. LAB L100.2620 2.0-7.7 X10 3/uL Normal Absolute Neut 4.7 LAB L100.2720 0.83-4.51 X10 3/ul Normal Absolute Lymph 0.88 Performed By: #### L100.0100 #### [facility] [address] [place], [address] LIVER PROFILE Collected: 09/15/2017 Status: F Source: SHADYSIDE 11:10 AM [facility] REPOSITORY TYPE CODE TESTS RESULT OUT OF RANGE REFERENCE UNITS LAB L501.1500 6.4-8.2 g/dL Normal T PROT 6.6 LAB L501.1800 3.2-5.0 g/dL Low ALB 3.1 LAB L501.1950 2.2-4.2 g/dL Normal GLOB 3.5 LAB L501.4100 15-37 U/L Low AST 13 LAB L501.4305 45-117 U/L Low ALK P 38 LAB L501.4405 13-56 U/L Normal ALT 23 LAB L501.4600 0.20-1.00 mg/dL Normal T BILI 0.30 LAB L501.4700 0.00-0.30 mg/dL Normal D BILI 0.08 Performed By: #### L500.3400 #### [facility] [address] [place], [address] CBC W/DIFF, AUTOMATED Collected: 09/15/2017 Status: F Source: SHADYSIDE 11:10 AM [facility] REPOSITORY TYPE CODE TESTS RESULT OUT OF RANGE REFERENCE UNITS LAB L100.1000 4.4-11.0 K/mm3 Normal WBC 5.3 LAB L100.1200 4.2-5.4 M/mm3 Normal RBC 5.26 LAB L100.1300 12.0-15.0 g/dl Normal HGB 13.5 LAB L100.1400 37-47 % Normal HCT 43.7 LAB L100.1500 81-99 fL Normal MCV 83.1 LAB L100.1600 27.0-32.0 pg Low MCH 25.7 LAB L100.1700 32-36 g/gl Low MCHC 30.9 LAB L100.1810 11.6-14.6 % High RDW CV 15.6 LAB L100.1820 35.1-43.9 fl High RDW SD 45.1 LAB L100.1900 150-450 K/mm3 Normal PLT 289 LAB L100.2000 6.2-12.0 fl Normal MPV 11.1 LAB L100.2100 47-70 % High NEUT% 72.3 LAB L100.2200 19-41 % Low LY% 15.0 LAB L100.2300 0-10 % Normal MONO% 9.1 LAB L100.2400 0-5 % Normal EO% 2.3 LAB L100.2500 0-1 % High BASO% 1.1 LAB L100.2550 0.0-0.9 % Normal IM GRAN % 0.200 Result Comment: IG% - Immature Granulocytes (promyelocytes, myelocytes and metamyelocytes) > 1% indicates that a LEFT SHIFT is Present. LAB L100.2620 2.0-7.7 X10 3/uL Normal Absolute Neut 3.8 LAB L100.2720 0.83-4.51 X10 3/ul Low Absolute Lymph 0.79 Performed By: #### L100.0100 #### [facility] [address] [place], [address] DOWNTIME REPORT Observed: 08/28/2017 Status: F Source: ROBIN 1:22 PM [facility] REPOSITORY [facility] Medical Records Department [address] [place] [address] Downtime Report MR#: [id number] Acct: [id number] Name: AMANDA SANCHEZ Rep #: [id number] : 1955 62 From: Arjun Vinson PCP: Matthew Wallace DO Status: REG CLI This patient was seen during an EMR downtime August 11, 2017 - August 18, 2017. This patient may have a combination of paper and electronic documentation or all paper documentation. All documentation is viewable within the e-chart portion of [employer] for each patient visit. PAP I-G W/RFX HRHPV Collected: 08/12/2017 Status: F Source: ROBIN 12:00 AM [facility] REPOSITORY Order Comment: CYTOLOGY INFORMATION: - CLINICAL INFORMATION: POSTMENOPAUSAL - DATE LMP/MENOPAUSE: - COLLECTION VIAL: Thin Prep Vial - INVESTMENT STRATEGIST SOURCE: CERVICAL/ENDOCERVICAL - COLLECTION TECHNIQUE: BRUSH/SPATULA TYPE CODE TESTS RESULT OUT OF RANGE REFERENCE UNITS LAB L7400.0800 Normal DIAGN Result Comment: NEGATIVE FOR INTRAEPITHELIAL LESION AND MALIGNANCY. THIS SPECIMEN WAS RESCREENED PART OF OUR TOP TAPER MACHINE PROGRAM. LAB L7400.0900 Normal ADEQ Result Comment: Satisfactory for evaluation. Endocervical and/or squamous metaplastic cells (endocervical component) are present. LAB L7400.1400 Normal PERFORM Result Comment: Performed by Saida Gaxiola Rehab Specialist (ASCP) LAB L7400.2550 Normal COMMENT Result Comment: The Pap smear is a screening test designed to aid in the detection of premalignant and malignant conditions of the uterine cervix. It is not a diagnostic procedure and should not be used as the sole means of detecting cervical cancer. Both false-positive and false-negative reports do occur LAB L7400.2575 Normal TEST METHOD Result Comment: This liquid based ThinPrep(R) pap test was screened with the use of an image guided system Performed By: #### L7400.0350 #### [facility] (refer to report for specific site) refer to report for address and phone number SCREENING MAMM (CAD), Observed: 07/28/2017 Status: F Source: SHADYSIDE BIL 10:15 AM [facility] REPOSITORY [facility] Imaging Services [address] [place] [address] SCREENING MAMM (CAD), BILAT MR#: [id number] Acct: [id number] Name: AMANDA SANCHEZ Rep #: [id number] : 1955 F 62 From: Bob Oro MD PCP: Matthew Wallace DO Status: REG CLI Study: SCREENING MAMM (CAD), BILAT Date of Exam: 07/28/17 Exam# [id number] Ordering Dr: Carola Gary MD MAMMOGRAPHY - BILATERAL SCREENING REASON FOR EXAM: Female, 62 years old. Routine annual screening examination. PERTINENT HISTORY: Non-contributory. History of prior bilateral breast reduction surgery. TECHNIQUE: Digital bilateral breast papa (3D mammographic acquisition) in the CC and MLO projections. 2-D mediolateral oblique (MLO) and craniocaudad (CC) views of both breasts were obtained. CAD: Full Field Digital Mammography with Computer Added Detection was performed. COMPARISON: Comparison is made with prior study dated April 18, 2016 and January 13, 2015. FINDINGS: Breast Composition: There are scattered areas of fibroglandular density. There are no dominant masses or suspicious calcifications. The patient is status post bilateral reduction surgery. Once again, a bandlike density is seen in the upper outer aspect of the left breast as well as in the deep mid medial portion of the right breast. Calcifications are seen within it most likely representing postoperative changes and calcifications. The calcifications have progressed in the left breast as compared to prior study. No other significant abnormalities are identified. BI/SCREENING MAMM (CAD), BILAT IMPRESSION: Stable bilateral screening mammogram. Yearly follow-up mammogram recommended. (A) ASSESSMENT CATEGORY: BIRADS Category 2: Benign. A letter regarding these results will be sent to the patient by the facility within 30 days. Approximately 10% of breast cancers are not detected by mammography. A normal mammogram should not delay biopsy of a clinically suspicious abnormality. [id number] Electronically Signed: Bob Oro MD at 12:24 EDT Tel [phone], Service support , CC: Carola Gary MD; Matthew Wallace DO Watch Engineer: Signed CARDIOLOGY VISIT Observed: 07/08/2017 Status: F Source: SHADYSIDE REPORT 4:27 PM [facility] REPOSITORY [facility] [address] [place] [address]. [address] [place] [address] OFFICE VISIT Date of Service: 07/08/17 MR#: [id number] Acct: [id number] Name: AMANDA SANCHEZ Rep #: [id number] : 1955 Provider: SHEMAR Dave Age/Sex: 62/F Location: [facility] [place] Status: Signed HPI HPI Details: AMANDA SANCHEZ, is a 62 F who presents to the office today for a cardiovascular outpatient follow-up. She has history of paroxysmal atrial fibrillation, hypertension, and hyperlipidemia. Pt. denies chest, arm, jaw, or neck discomfort. Her exercise tolerance is stable via walking 4 days a week. Pt. denies symptoms of CHF, lightheadedness, dizziness, near syncope, or syncopal episodes. Pt. denies edema or claudication issues. Pt. denies PND, fever, chills, blood in urine, blood in stool, myalgia, or unexplainable fatigue. She continues to get episodes of skipped beats. She states for years she has noticed some SOB when lying flat, this has not changed or worsened. Intake Vital Signs07/08/17 Height 5 ft 10 in 07/08/17 Weight: 236 lb 07/08/17 Body Mass Index (BMI) 33.8 07/08/17 Blood Pressure 128/72 Intake Visit Reasons: 6 M Kennel Helper Required: No Accompanied by: none Is patient in pain?: No Allergies acetaminophen [From Darvocet-N] Adverse Reaction (Severe, Verified 07/08/17 10:57) GI upset hydrocodone [From Vicodin] Adverse Reaction (Severe, Verified 07/08/17 10:57) GI upset propoxyphene [From Darvocet-N] Adverse Reaction (Severe, Verified 07/08/17 10:57) GI upset cortisone Adverse Reaction (Intermediate, Verified 07/08/17 10:57) Unknown Medications aspirin 81 mg tablet,delayed release 81 mg PO QDAY 07/02/17 [History Confirmed 07/08/17] fluoxetine 40 mg capsule 40 mg PO QDAY 07/02/17 [History Confirmed 07/08/17] omeprazole 20 mg capsule,delayed release 20 mg PO QDAY PRN 07/02/17 [History Confirmed 07/08/17] oxycodone-acetaminophen 5 mg-325 mg tablet 1 tab PO .Q4-6H PRN tab 07/02/17 [History Confirmed 07/08/17] sotalol 80 mg tablet 80 mg PO BID tab 07/02/17 [History Confirmed 07/08/17] azathioprine 50 mg tablet 100 mg PO QDAY tab 07/08/17 [History Confirmed 07/08/17] budesonide DR - ER 3 mg capsule,delayed,extended release 9 mg PO QDAY ea 07/08/17 [History Confirmed 07/08/17] ferrous sulfate 325 mg (65 mg iron) tablet 325 mg PO BID PRN tab 07/08/17 [History Confirmed 07/08/17] multivitamin tablet 1 tab PO QDAY 07/08/17 [History Confirmed 07/08/17] Ejection fraction %: 60 to 64 PFSH Medical History Hypertension (Chronic) Palpitations (Chronic) Hyperlipidemia (Chronic) Paroxysmal atrial fibrillation (Chronic) Shortness of breath (Acute) Surgical History Hx of craniotomy (Resolved) thyroid lobectomy (Resolved) Family History Mother CAD (coronary artery disease) Myocardial infarction Father Hypertension Brother CAD (coronary artery disease) Social History Smoking Status: Never smoker alcohol intake: never substance use type: does not use caffeine: Yes Type: carbonated beverages Number of servings: 2 what type of physical activity do you participate in: walking frequency: 3-4 times per week duration: 30-45 minutes/day seatbelt use: always do you feel safe at home: Yes ROS Const Const: Negative for weakness, body ache, fever(s), chills or fatigue ENT ENT: Negative for dizziness Cardio Chest Pain: No Palpitations: Yes Edema: None Muscle aches with walking: None Resp Respiratory: Positive for SOB orthopnea\SOB lying down; negative for SOB with activity, SOB at rest or paroxysmal nocturnal dyspnea GI GI: Negative nausea, black,tarry stools, bright, red blood in stools or vomiting blood/hematemesis : Negative for hematuria or frequent nighttime urination/ nocturia Musc Musc: Negative for muscle aches/ myalgia Neuro Neuro: Negative for lightheadedness, near syncope, syncope, orthostatic symptoms, weakness or dizziness Endo Endo: Negative for fatigue Cardiology Exam Const Appearance: cooperative, healthy appearing, comfortable and no acute distress Orientation: alert, awake and oriented x3 Head Head: normal to inspection Mouth: oral mucosae normal Neck Neck: no JVD and normal visual inspection Carotids: normal carotid upstroke Chest Chest inspection: normal inspection of the chest and normal respiratory effort Auscultation: Bilateral: Clear to Auscultation Cardio Rate: regular rate Rhythm: regular rhythm Heart sounds: S1 normal and S2 normal; negative rub or gallop GI GI: normal to inspection Neuro General: alert, awake, oriented x3 and CN's II-XI intact bilaterally Skin Skin: no rashes or lesions noted Extremities Pulses: Normal: Right Posterior Tibial Pulse, Left Posterior Tibial Pulse, Right Radial Pulse, Left Radial Pulse Lower Extremity Edema: None: Bilateral Psych Psychological: normal affect Supplemental Info Echocardiogram from September 2015 showed estimated ejection fraction of 60%, structurally normal valves, and when compared to previous study no significant changes. Stress test from August 2010 was a normal exercise stress test with no EKG changes at moderate workload, no clinical angina, no arrhythmias noted, no atrial fibrillation, and nuclear images demonstrate no evidence of ischemia. Assessment AND Plan 1. Paroxysmal atrial fibrillation I48.0 Plan - LUBA Sumner Echocardiogram from September 2015 showed estimated ejection fraction of 60%. Patient's stress test from August 2010 was negative for stress-induced myocardial ischemia. Patient's EKG in office showed sinus rhythm at a rate of 68 bpm. She does state episodes of palpitations over the last year. She has taken extra one half pill of sotalol twice when palpitations did not resolve and 5 minutes over the last year. She has not presented to the emergency department for ongoing palpitations. She is not on oral anticoagulation due to maintaining sinus rhythm, anemia in relation to Crohn's disease flares, and previous history of craniotomy. She will continue current medications and we will continue to monitor this. Orders Orders: 2. Essential hypertension I10 Plan - LUBA Sumner Patient's blood pressure is well-controlled today in the office. We will continue to monitor this. We will not make any medication regimen changes. 3. Palpitations R00.2 Plan - LUBA Sumner This is occurred very rarely. She will continue with current plan to take 40 mg of sotalol if the palpitations last for longer than 5 minutes. If the palpitations do not subside after 1 hour she was instructed to present to emergency department further evaluation. She will continue current medications. Orders Orders: 4. Pure hypercholesterolemia E78.00; E78.0 Plan - LUBA Sumner Patient's most recent lipid panel from February 2016 showed cholesterol: 175, HDL: 55, LDL: 83, and triglycerides: 187. She is not on any cholesterol lowering medication. She was instructed to discuss this with primary care physician if this has been drawn or will be drawn. She will continue with diet and lifestyle modifications. Plan Detail Additional Comments - LUBA Sumner Discussed the above patient with Dr. Keane, he agrees with the plan of care. Thank you for allowing us to participate in the patients plan of care, if you have any questions please do not hesitate to call. This note was generated using a voice recognition system and there may be incorrect words, spelling or punctuation that were not noted when reviewing the office note prior to saving. 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) Coding Level of Care Code Off vis,est,level 3 Diagnoses Paroxysmal atrial fibrillation I48.0 Essential hypertension I10 Hypertension type: essential hypertension Palpitations R00.2 Pure hypercholesterolemia E78.00; E78.0 Hyperlipidemia type: pure hypercholesterolemia Coding Level of Care Code Off vis,est,level 3 Diagnoses Paroxysmal atrial fibrillation I48.0 Essential hypertension I10 Hypertension type: essential hypertension Palpitations R00.2 Pure hypercholesterolemia E78.00; E78.0 Hyperlipidemia type: pure hypercholesterolemia 07/08/17 1253 <Electronically signed by Germán Dave NURSE SANE-C> Date Germán Dave NURSE SANE-C 07/08/17 1627<Electronically signed by Andrew Keane MD> Cosigner Signature: Date (if applicable) Andrew Keane MD CC: Matthew Wallace DO 12 LEAD EKG PERFORMED Observed: 07/08/2017 Status: F Source: [facility]IN BY [facility] 11:00 AM [facility] REPOSITORY [facility] [address] [place] [address] 12 Lead EKG performed by [facility] 07/08/17 1049 MR#: [id number] Acct: [id number] Name: AMANDA SANCHEZ Rep #: [id number] : 1955 62 From: Germán Dave NURSE SANE-C Attending Dr: Germán Dave NP Status: DEP AMB Ordering Dr: Germán Dave NURSE SANE-C Date: 07/08/17 Location: [facility] [place] Sex: F C Admitted: [facility]/12 Lead EKG performed by [facility] ECG Report Interpretation Sinus Rhythm -Incomplete left bundle branch block. ABNORMAL Electronically signed on 07/10/2017 at 17:05 by Andrew Keane 07/10/17 1710 Date Germán Dave NURSE SANE-C CC: Matthew Wallace DO Date Dictated: 07/08/171048 Date Transcribed: 07/08/171048 Watch Engineer: JOSE LUIS Signed LIVER PROFILE Collected: 07/07/2017 Status: F Source: [place] 11:15 AM [facility] REPOSITORY TYPE CODE TESTS RESULT OUT OF RANGE REFERENCE UNITS LAB L501.1500 6.4-8.2 g/dL Normal T PROT 6.6 LAB L501.1800 3.2-5.0 g/dL Low ALB 3.1 LAB L501.1950 2.2-4.2 g/dL Normal GLOB 3.5 LAB L501.4100 15-37 U/L Low AST 12 LAB L501.4305 45-117 U/L Normal ALK P 48 LAB L501.4405 13-56 U/L Normal ALT 16 LAB L501.4600 0.20-1.00 mg/dL Normal T BILI 0.30 LAB L501.4700 0.00-0.30 mg/dL Normal D BILI 0.08 Performed By: #### L500.3400 #### [facility] [address] [place], [place], [address] CBC W/DIFF, AUTOMATED Collected: 07/07/2017 Status: F Source: [place] 11:15 AM [facility] REPOSITORY TYPE CODE TESTS RESULT OUT OF RANGE REFERENCE UNITS LAB L100.1000 4.4-11.0 K/mm3 Normal WBC 6.1 LAB L100.1200 4.2-5.4 M/mm3 High RBC 5.67 LAB L100.1300 12.0-15.0 g/dl Normal HGB 13.3 LAB L100.1400 37-47 % Normal HCT 43.2 LAB L100.1500 81-99 fL Low MCV 76.2 LAB L100.1600 27.0-32.0 pg Low MCH 23.5 LAB L100.1700 32-36 g/gl Low MCHC 30.8 LAB L100.1810 11.6-14.6 % High RDW CV 25.2 LAB L100.1820 35.1-43.9 fl High RDW SD 67.8 LAB L100.1900 150-450 K/mm3 Normal PLT 283 LAB L100.2000 6.2-12.0 fl Normal MPV 10.9 LAB L100.2100 47-70 % Normal NEUT% 68.9 LAB L100.2200 19-41 % Low LY% 18.2 LAB L100.2300 0-10 % Normal MONO% 9.3 LAB L100.2400 0-5 % Normal EO% 2.1 LAB L100.2500 0-1 % High BASO% 1.3 LAB L100.2550 0.0-0.9 % Normal IM GRAN % 0.200 Result Comment: IG% - Immature Granulocytes (promyelocytes, myelocytes and metamyelocytes) > 1% indicates that a LEFT SHIFT is Present. LAB L100.2620 2.0-7.7 X10 3/uL Normal Absolute Neut 4.2 LAB L100.2720 0.83-4.51 X10 3/ul Normal Absolute Lymph 1.12 LAB L100.4500 Normal SMEAR COMMENT COMMENT Result Comment: SLIDE SCANNED - 1+ ANISO. Performed By: #### L100.0100 #### [facility] [address] [facility] [place], [place], [address] LIVER PROFILE Collected: 06/09/2017 Status: F Source: [place] 3:39 PM [facility] REPOSITORY TYPE CODE TESTS RESULT OUT OF RANGE REFERENCE UNITS LAB L501.1500 6.4-8.2 g/dL Normal T PROT 7.5 LAB L501.1800 3.2-5.0 g/dL Normal ALB 3.5 LAB L501.1950 2.2-4.2 g/dL Normal GLOB 4.0 LAB L501.4100 15-37 U/L Low AST 12 LAB L501.4305 45-117 U/L Normal ALK P 52 LAB L501.4405 13-56 U/L Normal ALT 16 Result Comment: Please note revised ALT reference range effective 2017. LAB L501.4600 0.20-1.00 mg/dL Normal T BILI 0.30 LAB L501.4700 0.00-0.30 mg/dL Normal D BILI 0.09 Performed By: #### L500.3400 #### [facility] [address] [place], [address] CBC W/DIFF, AUTOMATED Collected: 06/09/2017 Status: F Source: [place] 3:39 PM [facility] REPOSITORY TYPE CODE TESTS RESULT OUT OF RANGE REFERENCE UNITS LAB L100.1000 4.4-11.0 K/mm3 Normal WBC 10.8 LAB L100.1200 4.2-5.4 M/mm3 High RBC 6.03 LAB L100.1300 12.0-15.0 g/dl Normal HGB 12.7 LAB L100.1400 37-47 % Normal HCT 43.8 LAB L100.1500 81-99 fL Low MCV 72.6 LAB L100.1600 27.0-32.0 pg Low MCH 21.1 LAB L100.1700 32-36 g/gl Low MCHC 29.0 LAB L100.1810 11.6-14.6 % High RDW CV 23.0 LAB L100.1820 35.1-43.9 fl High RDW SD 58.9 LAB L100.1900 150-450 K/mm3 Normal PLT 310 LAB L100.2000 6.2-12.0 fl Normal MPV 11.5 LAB L100.2100 47-70 % High NEUT% 83.3 LAB L100.2200 19-41 % Low LY% 10.0 LAB L100.2300 0-10 % Normal MONO% 5.1 LAB L100.2400 0-5 % Normal EO% 0.7 LAB L100.2500 0-1 % Normal BASO% 0.7 LAB L100.2550 0.0-0.9 % Normal IM GRAN % 0.200 Result Comment: IG% - Immature Granulocytes (promyelocytes, myelocytes and metamyelocytes) > 1% indicates that a LEFT SHIFT is Present. LAB L100.2620 2.0-7.7 X10 3/uL High Absolute Neut 9.0 LAB L100.2720 0.83-4.51 X10 3/ul Normal Absolute Lymph 1.08 LAB L100.4500 Normal SMEAR COMMENT SCANNED Result Comment: 2+ ANISOCYTOSIS Performed By: #### L100.0100 #### [facility] [address] [place], [place], [address] CBC-COMPLETE BLOOD CNT Collected: 05/21/2017 Status: F Source: [place] NO DIFF 10:56 AM [facility] REPOSITORY Order Comment: SEND COPY OF RESULTS TO ALSO. TYPE CODE TESTS RESULT OUT OF RANGE REFERENCE UNITS LAB L100.1000 4.4-11.0 K/mm3 Normal WBC 8.0 LAB L100.1200 4.2-5.4 M/mm3 High RBC 5.62 LAB L100.1300 12.0-15.0 g/dl Low HGB 10.9 LAB L100.1400 37-47 % Normal HCT 39.1 LAB L100.1500 81-99 fL Low MCV 69.6 LAB L100.1600 27.0-32.0 pg Low MCH 19.4 LAB L100.1700 32-36 g/gl Low MCHC 27.9 LAB L100.1810 11.6-14.6 % High RDW CV 16.2 LAB L100.1820 35.1-43.9 fl Normal RDW SD 40.8 LAB L100.1900 150-450 K/mm3 Normal PLT 321 LAB L100.2000 6.2-12.0 fl Normal MPV 10.9 Performed By: #### L100.0500, L101.9900 #### [facility] [address] [place], [place], [id number] ERYTHROCYTE SED RATE Collected: 05/21/2017 Status: F Source: [place] 10:56 AM [facility] REPOSITORY Order Comment: SEND COPY OF RESULTS TO ALSO. TYPE CODE TESTS RESULT OUT OF RANGE REFERENCE UNITS LAB L102.0000 0-30 mm/hr Normal SED RATE 26 Performed By: #### L100.0500, L101.9900 #### [facility] [address] [place], [place], [address] COMPREHENSIVE METABOLIC Collected: 05/21/2017 Status: F Source: [place] PROFIL 10:56 AM [facility] REPOSITORY Order Comment: SEND COPY OF RESULTS TO ALSO. Comments: WB EDTA TUBE TYPE CODE TESTS RESULT OUT OF RANGE REFERENCE UNITS LAB L501.0100 74-106 mg/dL Normal GLU 100 Result Comment: Fasting Glucose result from 100 to 125 mg/dL suggests IMPAIRED HOMEOSTASIS per A.D.A. criteria. Please note revised GLUCOSE reference range effective 2017. LAB L501.1000 7-18 mg/dL Normal BUN 13 LAB L501.1100 0.55-1.02 mg/dL Normal CREAT,SERUM 0.73 Result Comment: The validity of the calculated GFR AND GFRAA in patients over 70 years has not been determined. Clinical correlation is essential. LAB L501.1110 >60 mL/min Normal EST GFR 86 Result Comment: Non- GFR Calc LAB L501.1115 >60 mL/min Normal EST GFR - AA 104 Result Comment: GFR Calc LAB L501.1300 10-20 RATIO Normal BUN/CRE 17.9 LAB L501.1500 6.4-8.2 g/dL T Normal PROT 7.0 LAB L501.1800 3.2-5.0 g/dL Normal ALB 3.2 LAB L501.1950 2.2-4.2 g/dL Normal GLOB 3.8 LAB L501.2000 0.9-2.4 RATIO Low A/G 0.8 LAB L501.2200 8.5-10.1 mg/dL Low CA 8.4 LAB L501.4100 15-37 U/L Normal AST 16 LAB L501.4305 45-117 U/L Normal ALK P 50 LAB L501.4405 13-56 U/L Normal ALT 20 Result Comment: Please note revised ALT reference range effective 2017. LAB L501.4600 0.20-1.00 mg/dL Normal T BILI 0.40 LAB L501.5300 136-145 mmol/L Normal NA 138 LAB L501.5600 3.5-5.1 mmol/L Normal K 4.2 LAB L501.5900 98-107 mmol/L Normal CL 103 LAB L501.6100 21.0-32.0 mmol/L Normal CO2 29.0 LAB L501.6200 5-15 Normal GAP 6 Performed By: #### L500.4050, L501.6710 #### [facility] [address] [place], [address] CRP Collected: 05/21/2017 Status: F Source: [place] 10:56 AM [facility] REPOSITORY Order Comment: SEND COPY OF RESULTS TO ALSO. Comments: WB EDTA TUBE TYPE CODE TESTS RESULT OUT OF RANGE REFERENCE UNITS LAB L501.6710 0.0-3.0 mg/L High 5.69 C-REACTIVE PROT Result Comment: C-Reactive Protein (CRP) provides useful information for the diagnosis, therapy and monitoring of inflammatory processes and associated diseases. For the evaluation of Relative Risk for Cardiovascular Disease, a High Sensitivity CRP (HSCRP) should be ordered. Performed By: #### L500.4050, L501.6710 #### [facility] [address] [place], [address] MISCELLANEOUS LAB Collected: 05/21/2017 Status: F Source: [place] PROCEDURE 10:56 AM [facility] REPOSITORY Order Comment: Comments: WB EDTA TUBE Test(s) Ordered: PROMETHEUS TPMT ENZYME TYPE CODE TESTS RESULT OUT OF RANGE REFERENCE UNITS LAB L801.1541 Normal MISC LAB TEST Result Comment: Scanned image report available in EMR Performed By: #### L801.1541 #### [facility] [address] [place], [address] THORACIC SPINE 3 Observed: 03/27/2017 Status: F Source: [place] VIEWS 12:14 PM [facility] REPOSITORY [facility] Imaging Services [address] [place] [address] Thoracic Spine 3 Views MR#: [id number] Acct: [id number] Name: AMANDA SANCHEZ Rep #: [id number] : 1955 F 61 From: Bob Oro MD PCP: Matthew Wallace DO Status: REG CLI Study: Thoracic Spine 3 Views Date of Exam: 03/27/17 Exam# [id number] Ordering Dr: Samantha Marx STUDY: X-RAY - THORACIC SPINE REASON FOR EXAM: Female, 61 years old. Chronic back pain. TECHNIQUE: 3 view(s) of the thoracic spine were obtained. COMPARISON: None. FINDINGS: There is an increase in the normal thoracic kyphosis. There is no substantial scoliosis. There is demineralization of the thoracic spine with endplate spondylosis. There is multilevel disc space narrowing of the thoracic spine. Approximately 20% loss of height of the superior endplate of the T8 vertebrae. The soft tissue structures are unremarkable. RAD/Thoracic Spine 3 Views IMPRESSION: Increased kyphosis. Multilevel disc space narrowing and loss of height of the T8 vertebrae. Electronically Signed: Bob Oro MD at 15:06 EST Tel [phone], Service support , CC: Samantha Marx; Matthew Wallace DO Watch Engineer: Signed ALLERGIES ALLERGIES DATE TYPE / CODE NAME / CODE REACTION SEVERITY SOURCE 02/19/2018 Drug hydrocodone/ gi upset [facility] Allergy/4160 [id number]( Hospital [facility](SNOMED XNORM) Repository CT) 02/19/2018 Drug propoxyphene gi upset [facility] Allergy/4160 /[id number]( Hospital 12407(SNOMED RXNORM) Repository CT) 02/19/2018 Drug acetaminophe gi upset [facility] Allergy/4160 n/[id number] Hospital [facility](SNOMED (RXNORM) Repository CT) 02/19/2018 Drug cortisone/F0 Unknown [place] [facility] Allergy/4160 [id number](RXN Hospital 84294(SNOMED ORM) Repository CT) ENCOUNTERS ENCOUNTERS ADMIT/DISCHARGE ACCOUNT ADMITTING ENCOUNTER LOCATION SOURCE NUMBER CLASS 02/19/2018 [id number] Ambulatory [place] [address] [facility] ing:RAD Repository 02/19/2018/ [id number] Ambulatory BMSBuilding:B [place] 8 5 MS.PMW Repository 02/12/2018/ [id number] Ambulatory BMSBuilding:B [place] 8 5 MS.WHG Repository 02/09/2018 [id number] Ambulatory [place] Robin [address] [facility] ing:MTLAB Repository 02/03/2018 [id number] Ambulatory [place] Robin [address] [facility] ing:MRI Repository 01/25/2018/ [id number] Emergency [place] [facility] Rep[facility] 01/15/2018 [id number] [facility] [place] 2 [facility] ing:MTLAB Repository 12/22/2017 [id number] Ambulatory [place] 6 [facility] ing:MTLAB Repository 11/06/2017 [id number] Ambulatory [place] 2 [facility] ing:BFHLAB Repository 10/17/2017 [id number] Ambulatory [place] [facility] 7 [facility] ing:MTLAB Repository 09/15/2017 [id number] [place] 3 [facility] ing:MTLAB Repository 08/12/2017 [id number] Ambulatory [place] 3 [facility] ing:WOBLAB Repository 07/28/2017 [id number] Ambulatory [place] 3 [facility] ing:OPBI Repository 07/08/2017/ [id number] Ambulatory BMSBuilding:B [place] 8 5 [facility] Repository 07/07/2017 [id number] Ambulatory [place] 4 [facility] ing:MTLAB Repository 07/02/2017 [id number] Ambulatory B[place] 5 [facility] Hospital Repository 06/09/2017 [id number] Amb[place] 9 [facility] ing:LAB.FUTUR Repository E 05/21/2017 [id number] Ambulatory [place] 1 [facility] ing:MTLAB Repository 03/27/2017 [id number] Ambulatory [place] 2 [facility] ing:MTRAD Repository PAYERS PAYERS ENCOUNTER GUARANTOR PAYER SUBSCRIBER SOURCE 02/19/2018 ISADORA Yuen [place] [id number] Insurance:MEDICAL JUSTICEDOB: [facility] [id number] Number: Repository [id number]: [phone] [id number] [phone] () Date:7016-00-82VU [address] [place] [address]AT: 02/19/2018 Secondary ISADORA L [place] Insurance:MED MUT JUSTICEDOB: [facility] [id number] Hospital Number: Repository [id number] Date:1498-48-36ZD [address] [address]MC: 02/19/2018 Tertiary NOT GIVENUNK [place] Insurance:SELF PAY [facility] Hospital Number: Effective Repository Date:2018-02-19 02/19/2018 ISADORA L Primary AMANDA J [place] [id number] Insurance:MEDICAL JUSTICEDOB: [facility] [id number] Number: Repository [id number]: [phone] [id number] [phone] (HP) Date:7934-12-10JY [address] [address]DN: 02/19/2018 Secondary ISADORA L [place] Insurance:MED MUT JUSTICEDOB: [facility] [id number] Hospital Number: Repository [id number] Date:8449-18-14KB [address] [address]AD: 02/19/2018 Tertiary NOT GIVENUNK [place] Insurance:SELF PAY [facility] Hospital Number: Effective Repository Date:2018-02-16 02/12/2018 ISADORA L Primary AMANDA J [place] [id number] Insurance:MEDICAL JUSTICEDOB: [facility] [id number] Number: Repository [id number]: [phone]) [id number] [phone] (HP) Date:7369-94-81SF [address] [address]HT: 02/12/2018 Secondary ISADORA L [place] Insurance:MED MUT JUSTICEDOB: [facility] [id number] Hospital Number: Repository [id number] Date:5455-81-11CH [address] [address]PW: 02/12/2018 Tertiary NOT GIVENUNK [place] Insurance:SELF PAY [facility] Hospital Number: Effective Repository Date:2018-02-12 02/09/2018 ISADORA L Primary AMANDA J [place] [id number] Insurance:MEDICAL JUSTICEDOB: [facility] [id number] Number: Repository [id number]: [phone] [id number] [phone] (HP) Date:7621-89-07CE [address] [place] [address]UY: 02/09/2018 Secondary ISADORA L [place] Insurance:MED MUT JUSTICEDOB: [facility] [id number] Hospital Number: Repository [id number] Date:4083-86-93CI [address] [address]ZE: 02/09/2018 Tertiary NOT GIVENUNK [place] Insurance:SELF PAY [facility] Hospital Number: Effective Repository Date:2018-02-09 02/03/2018 ISADORA L Primary AMANDA J [place] [id number] Insurance:MEDICAL JUSTICEDOB: [facility] [id number], [place] Number: Repository [id number]: [phone] [id number] [phone] (HP) Date:6813-00-73YS [address] [address]BJ: 02/03/2018 Secondary ISADORA L [place] Insurance:MED MUT JUSTICEDOB: [facility] [id number] Hospital Number: Repository [id number] Date:7212-36-55OP [address] [address]QD: 02/03/2018 Tertiary NOT GIVENUNK [place] Insurance:SELF PAY [facility] Number: Effective Repository Date:2018-01-26 01/25/2018 ISADORA L Primary AMANDA J [place] [id number] Insurance:MEDICAL JUSTICEDOB: [facility] [id number] [place] [address] Number: Repository [id number]: [id number] [phone]) Date:2245-03-31QE [address] [address]ZU: 01/25/2018 Secondary ISADORA L [place] Insurance:MED MUT JUSTICEDOB: [facility] [id number] Hospital Number: Repository [id number] Date:5395-01-12FU [address] [address]SP: 01/25/2018 Tertiary NOT GIVENUNK [place] Insurance:SELF PAY [facility] Number: Effective Repository Date:2018-01-25 01/15/2018 ISADORA L Primary AMANDA J [place] [id number] Insurance:MEDICAL JUSTICEDOB: [facility] [id number] Number: Repository [id number]: [phone] [id number] [phone] (HP) Date:3227-26-57DB [address] [address]NN: 01/15/2018 Secondary ISADORA L [place] Insurance:MED MUT JUSTICEDOB: [facility] [id number] Hospital Number: Repository [id number] Date:9116-63-82AD [address] [address]HN: 01/15/2018 Tertiary NOT GIVENUNK [place] Insurance:SELF PAY [facility] Number: Effective Repository Date:2018-01-15 12/22/2017 ISADORA L Primary AMANDA J [place] [id number] Insurance:MEDICAL JUSTICEDOB: [facility] [id number] Number: Repository [id number]: [phone] [id number] [phone]) Date:7332-42-27VC [address] [address]GV: 12/22/2017 Secondary ISADORA L Robin Insurance:MED MUT JUSTICEDOB: [facility] [id number] Hospital Number: Repository [id number] Date:1775-40-29WT [address] [address]IG: 12/22/2017 Tertiary NOT GIVENUNK [place] Insurance:SELF PAY [facility] Number: Effective Repository Date:2017-12-22 11/06/2017 ISADORA L Primary AMANDA J [place] [id number] Insurance:MEDICAL JUSTICEDOB: [facility] [id number] Number: Repository [id number]: [phone] [id number] [phone] (HP) Date:5462-09-14OM [address] [address]XK: 11/06/2017 Secondary ISADORA L Robin Insurance:MED MUT JUSTICEDOB: [facility] [id number] Hospital Number: Repository [id number] Date:6377-77-92GQ [address] [address]WZ: 11/06/2017 Tertiary NOT GIVENUNK [place] Insurance:SELF PAY [facility] Number: Effective Repository Date:2017-11-06 10/17/2017 ISADORA L Primary AMANDA J [place] [id number] Insurance:MEDICAL JUSTICEDOB: [facility] [id number] Number: Repository [id number]: [phone] [id number] [phone] (HP) Date:8817-63-66FL [address] [address]FI: 10/17/2017 Secondary ISADORA L Robin Insurance:MED MUT JUSTICEDOB: [facility] [id number] Hospital Number: Repository [id number] Date:1994-16-55XN [address] [address]TO: 10/17/2017 Tertiary NOT GIVENUNK [place] Insurance:SELF PAY [facility] Number: Effective Repository Date:2017-10-17 09/15/2017 Isadora L Primary AMANDA J [place] [id number] Insurance:MEDICAL JUSTICEDOB: [facility] [id number] Number: Repository [id number]: [phone] [id number] [phone]) Date:6492-31-80YI [address] [place] [address]VL: 09/15/2017 Secondary Isadora L Robin Insurance:MED MUT JusticeDOB: [facility] [id number] Hospital Number: Repository [id number] Date:4153-97-18NG [address] [address]GF: 09/15/2017 Tertiary NOT GIVENUNK [place] Insurance:SELF PAY [facility] Number: Effective Repository Date:2017-09-15 08/12/2017 Isadora L Primary AMANDA J [place] [id number] Insurance:MEDICAL JUSTICEDOB: [facility] [id number] Number: Repository [id number]: [phone] [id number] [phone]) Date:5446-68-25UL[address] [address]YW: 08/12/2017 Secondary Isadora L Robin Insurance:MED MUT JusticeDOB: [facility] [id number] Hospital Number: Repository [id number] Date:4282-10-71QV [address] [address]AP: 08/12/2017 Tertiary NOT GIVENUNK [place] Insurance:SELF PAY [facility] Number: Effective Repository Date:2017-08-12 07/28/2017 Isadora L Primary AMANDA J [place] [id number] Insurance:MEDICAL JUSTICEDOB: [facility] [id number], [place] Number: Repository [id number]: 234 [id number] [phone] (HP) Date:8572-16-84KD [address] [address]YS: 07/28/2017 Secondary Isadora L Robin Insurance:MED MUT JusticeDOB: [facility] [id number] Hospital Number: Repository [id number] Date:9413-69-49AI [address] [address]RH: 07/28/2017 Tertiary NOT GIVENUNK Robin Insurance:SELF PAY [facility] Number: Effective Repository Date:2017-07-01 07/08/2017 Isadora L Primary AMANDA J [place] [id number] Insurance:MEDICAL JUSTICEDOB: [facility] [id number] Number: Repository [id number]: ([phone] [id number] [phone]) Date:3724-89-48BG [address] [address]MZ: 07/08/2017 Secondary Isadora L Robin Insurance:MED MUT JusticeDOB: [facility] [id number] Hospital Number: Repository [id number] Date:6447-98-55AC [address] [address]DP: 07/08/2017 Tertiary NOT GIVENUNK [place] Insurance:SELF PAY [facility] Number: Effective Repository Date:2017-02-20 07/07/2017 Isadora L Primary AMANDA J [place] [id number] Insurance:MEDICAL JUSTICEDOB: [facility] [id number] Number: Repository [id number]: [phone] [id number] [phone]) Date:7893-06-98HR [address] [address]RA: 07/07/2017 Secondary Isadora L [place] Insurance:MED MUT JusticeDOB: [facility] [id number] Hospital Number: Repository [id number] Date:4032-13-98XY [address] [place] [address]XP: 07/07/2017 Tertiary NOT GIVENUNK [place] Insurance:SELF PAY [facility] Number: Effective Repository Date:2017-07-07 07/02/2017 Isadora L Primary AMANDA J [place] [id number] Insurance:MEDICAL JUSTICEDOB: [facility] [id number], [place] Number: Repository [id number]: [phone] [id number] [phone] (HP) Date:9222-16-18AG [address] [address]TC: 07/02/2017 Secondary Isadora L Robin Insurance:MED MUT JusticeDOB: [facility] [id number] Hospital Number: Repository [id number] Date:7887-04-01BO [address] [address]SP: 07/02/2017 Tertiary NOT GIVENUNK [place] Insurance:SELF PAY [facility] Number: Effective Repository Date:2017-07-02 06/09/2017 Isadora L Primary AMANDA J [place] [id number] Insurance:MEDICAL JUSTICEDOB: [facility] [id number], [place] Number: Repository [id number]: 234 [id number] [phone] (HP) Date:0142-79-96AO [address] [address]MI: 06/09/2017 Secondary Isadora L [place] Insurance:MED MUT JusticeDOB: [facility] [id number] Hospital Number: Repository [id number] Date:5360-51-24SB [address] [address]SO: 06/09/2017 Tertiary NOT GIVENUNK [place] Insurance:SELF PAY [facility] Number: Effective Repository Date:2017-05-27 05/21/2017 Isadora L Primary AMANDA J [place] [id number] Insurance:MEDICAL JUSTICEDOB: [facility] [id number], [place] Number: Repository [id number]: [phone] [id number] [phone] (HP) Date:8498-21-52BG [address] [place] [address]FN: 05/21/2017 Secondary Isadora L Robin Insurance:MED MUT JusticeDOB: [facility] [id number] Hospital Number: Repository [id number] Date:0701-62-45HZ [address] [place] [address]VY: 05/21/2017 Tertiary NOT GIVENUNK [place] Insurance:SELF PAY [facility] Number: Effective Repository Date:2017-05-21 03/27/2017 Isadora L Primary AMANDA J [place] [id number] Insurance:MEDICAL JUSTICEDOB: [facility] [id number] Number: Repository [id number]: [id number] [phone] Date:0453-71-93NF [address] () [address] [place] [address]VM: 03/27/2017 Secondary Isadora L [place] Insurance:MED MUT JusticeDOB: [facility] [id number] Hospital Number: Repository [id number] Date:4514-02-46KU [address] [place] [address]MA: 03/27/2017 Tertiary NOT GIVENUNK [place] Insurance:SELF PAY [facility] Number: Effective Repository Date:2017-03-27
== END ==
PROVIDERS: Family Provider Family Medicine; PCP Family Medicine; Referring Provider Anesthesiology Pain Medicine; Visit Provider Anesthesiology Pain Medicine
DX: M43.16 Spondylolisthesis, lumbar region (principal)
CPT/HCPCS: 72148

== ENCOUNTER 2018-02-09 14:24 | Outpatient (RCR) | payer OTHER, SELFPAY ==
[2018-02-09 16:07] LABS: Absolute Lymphocyte Count 0.95 X10^3/ul (0.83-4.51); Absolute Neutrophil Count 3.5 X10^3/uL (2.0-7.7); Basophil# 0.04 X10^3/uL; Basophil% 0.8 % (0-1); Eosinophil# 0.15 X10^3/uL; Eosinophils% 2.9 % (0-5); Hematocrit 44.8 % (37-47); Lymphocyte # 0.95 X10^3/ul (4.0); Lymphocyte % 18.6 % (19-41); Mean Corp Hgb Conc 31.3 g/gl (32-36); Mean Corpuscular Hgb 26.7 pg (27.0-32.0); Mean Corpuscular Volume 85.5 fL (81-99); Mean Platelet Vol. 11.1 fl (6.2-12.0); Monocyte% 9.8 % (0-10); Neutrophil # 3.47 X10^3/uL (2.7-7.7); Neutrophil % 67.7 % (47-70); Platelet Count 319 K/mm3 (150-450); RBC Distribution Width CV 15.2 % (11.6-14.6); RBC Distribution Width SD 47.3 fl (35.1-43.9); Red Blood Count 5.24 M/mm3 (4.2-5.4); White Blood Count 5.1 K/mm3 (4.4-11.0)
[2018-02-09 16:09] LABS: POSITIVE COUNT NO; POSITIVE DIFFERENTIAL NO; POSITIVE MORPHOLOGY NO
[2018-02-11 11:24] LABS: HEPATITIS B SURFACE AG Negative (Negative)
== END 2018-02-09 15:00 | disposition home or self-care (01) ==
LOC: MTLAB 14:24
PROVIDERS: Family Provider Family Medicine; PCP Family Medicine; Referring Provider Internal Medicine Gastroenterology; Visit Provider Internal Medicine Gastroenterology
DX: K50.80 Crohn's disease of both small and large intestine without complications (principal)
CPT/HCPCS: 36415; 85025; 87340

== ENCOUNTER → 2018-02-19 09:10 | Outpatient (CLI) | payer OTHER, SELFPAY ==
[2018-02-19 08:21] VITALS: BMI 34.5
--- NOTE | 2018-02-19 09:15 | RAD_ITS ---
HISTORY: SOBShort of Breath/DyspneaRAD - Chest EXAM: XR Chest 2 Views: COMPARISON: 05/20/2013 FINDINGS: No significant change. Normal heart size. No vascular congestion, pleural effusion, or acute pulmonary infiltration. Senescent changes of the aorta and dorsal spine. RAD/Chest PA and Lateral IMPRESSION: No acute disease or significant change. at [id number] Reported and signed by: Armen Amezcua MD Electronically Signed: Armen Amezcua, at 3:13 EST Tel , Service support ,
--- OUTSIDE RECORDS SUMMARY | 2018-04-07 02:32 | XMS RPT_ITS ---
:1955 Author Organization OHIP Support Name Relationship Address Phone ISADORA SANCHEZ Unavailable [address] + [place] [address] R Unavailable Unavailable Unavailable REILLY, IBETH Unavailable Unavailable + ISADORA SANCHEZ Unavailable [address] + [place] [address] R Unavailable Unavailable Unavailable REILLY, IBETH Unavailable Unavailable + JESSE SANCHEZIL Unavailable [address] + [place] [address] R Unavailable Unavailable Unavailable REILLY, IBETH Unavailable Unavailable + JESSE SANCHEZIL Unavailable [address] + [place] [address] R Unavailable Unavailable Unavailable REILLY, IBETH Unavailable Unavailable + [place] [address] JESSE SANCHEZIL Unavailable [address] + [place] [address] R Unavailable Unavailable Unavailable REILLY, IBETH Unavailable Unavailable + [place] [address] ISADORA SANCHEZ Unavailable Unavailable + [place] [address] R Unavailable Unavailable Unavailable REILLY, IBETH Unavailable Unavailable + [place] [address] ISADORA SANCHEZ Unavailable Unavailable + [place] [address] R Unavailable Unavailable Unavailable REILLY, IBETH Unavailable Unavailable + [place] [address] ISADORA SANCHEZ Unavailable Unavailable + [place] [address] R Unavailable Unavailable Unavailable REILLY, IBETH Unavailable Unavailable + [place] [address] JESSE SANCHEZIL Unavailable Unavailable + [place] [address] R Unavailable Unavailable Unavailable REILLY, IBETH Unavailable Unavailable + [place] [address] JESSE SANCHEZIL Unavailable Unavailable + [place] [address] R Unavailable Unavailable Unavailable REILLY, IBETH Unavailable Unavailable + [place] [address] JESSE SANCHEZIL Unavailable Unavailable + [place] [address] R Unavailable Unavailable Unavailable REILLY, IBETH Unavailable Unavailable + [place] [address] DANIEL ISADORA Unavailable Unavailable + [place] [address] R Unavailable Unavailable Unavailable REILLY, IBETH Unavailable Unavailable + [place] [address] R Unavailable Unavailable Unavailable REILLY, IBETH Unavailable Unavailable + [place] [address] R Unavailable Unavailable Unavailable REILLY, IBETH Unavailable Unavailable + [place] [address] R Unavailable Unavailable Unavailable REILLY, IBETH Unavailable Unavailable + [place] [address] R Unavailable Unavailable Unavailable R Unavailable Unavailable Unavailable REILLY, IBETH Unavailable . + [place] [address] BAUGHAN, LEFTY Unavailable [address] + [place] [address] JUSTICE, KAREL Unavailable [address] + [place] [address] R Unavailable Unavailable Unavailable BAUGHAN, LEFTY Unavailable [address] + [place] [address] JUSTICE, KAREL Unavailable [address] + [place] [address] R Unavailable Unavailable Unavailable BAUGHAN, LEFTY Unavailable [address] + [place] [address] JUSTICE, KAREL Unavailable [address] + [place] [address] R Unavailable Unavailable Unavailable BAUGHAN, LEFTY Unavailable [address] + [place] [address] JUSTICE, KAREL Unavailable [address] + [place] [address] R Unavailable Unavailable Unavailable Care Team Providers Name Role Phone Stevan Saldana D.O. Attending Unavailable Madison, Matthew Referring Unavailable Stevan Saldana D.O. Attending Unavailable Madison, Matthew Primary Care Unavailable Jabour, Vincent Attending Unavailable Madison, Matthew Primary Care Unavailable Jabour, Vincent Attending Unavailable Madison, Matthew Primary Care Unavailable Jabour, Vincent Referring Unavailable Jabour, Vincent Attending Unavailable Jabour, Vincent Referring Unavailable Madison, Matthew Primary Care Unavailable Jabour, Vincent Attending Unavailable Jabour, Vincent Referring Unavailable Madison, Matthew Primary Care Unavailable Rhiannon Chávez Attending Unavailable Jabour, Vincent Attending Unavailable Jabour, Vincent Referring Unavailable Madison, Matthew Primary Care Unavailable Germán Dave Attending Unavailable Madison, Matthew Referring Unavailable Madsion, Matthew Primary Care Unavailable Benekos, Carola Attending [...] Primary Care Unavailable Nalini Evans Attending Unavailable Francisco Blair Attending Unavailable JohnnieFrancisco Referring Unavailable Madison, Matthew Primary Care Unavailable Jabour, Vincent Attending Unavailable Jabour, Vincent Referring Unavailable Madison, Matthew Primary Care Unavailable Lakhwinder, [place] Attending Unavailable [place], Matthew Referring Unavailable PROBLEMS PROBLEMS DATE TYPE CONDITION / CODE ATTENDING STATUS SOURCE 02/19/2018 Unknown Z20.1 - Contact Marely Owen with and D.O. 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 / Z20.1(ICD-10) 02/12/2018 Unknown I48.0 - Paroxysmal Lakhwinder, [place] Active [place] atrial fibrillation Community / I48.0(ICD-10) Hospital Repository 02/12/2018 Unknown I10 - Essential Lakhwinder, Andrew Active [place] (primary) Community hypertension / Hospital I10(ICD-10) Repository 03/09/2018 Unknown K50.80 - Crohn's Facundo Brody Active [place] disease of both Community small and large Hospital intestine without Repository complications / K50.80(ICD-10) 11/06/2017 Unknown K50.90 - Crohn's Matthew Wallace Active [place] disease, Community unspecified, Hospital without Repository complications / K50.90(ICD-10) 11/06/2017 Unknown E04.2 - Nontoxic Matthew Wallace Active [place] multinodular goiter Community / E04.2(ICD-10) Hospital Repository 11/06/2017 Unknown D64.9 - Anemia, Matthew Wallace Active [place] unspecified / Community D64.9(ICD-10) Hospital Repository 11/06/2017 Unknown I48.91 - Matthew Wallace Active [place] Unspecified atrial Community fibrillation / Hospital I48.91(ICD-10) Repository 09/03/2017 Unknown Z12.4 - Encounter Carola Gary Active [place] for screening for Community malignant neoplasm Hospital of cervix / Repository Z12.4(ICD-10) 07/28/2017 Unknown Z12.31 - Encounter ClaudemesfinelliCarola Active [place] for screening Community mammogram for Hospital malignant neoplasm Repository of breast / Z12.31(ICD-10) 07/08/2017 Unknown R00.2 - Germán Dave Active [place] Palpitations / Community R00.2(ICD-10) Hospital Repository PROCEDURES PROCEDURES No Procedure Records FoundRESULTS RESULTS PULMONARY VISIT REPORT Observed: 02/19/2018 Status: F Source: [place] 11:14 AM [facility] HOSPITAL REPOSITORY [facility] [place] [address] [place] [address] OFFICE VISIT Date of Service: 02/19/18 MR#: [id number] Acct: [id number] Name: AMANDA SANCHEZ Rep #: [id number] : 1955 Provider: Stevan Saldana D.O. Age/Sex: 62/F Location: [facility] Status: Signed Assessment AND Plan 1. IBD [...] for latent TB at that time. Her mastic man is currently considering the initiation of an [...] 02/19/2018 Status: F Source: [place] 9:12 AM [facility] REPOSITORY [facility] Imaging Services [address] [place] [address] Chest PA and Lateral MR#: [id number] Acct: [id number] Name: AMANDA SANCHEZ Rep #: [id number] : 1955 F 62 From: Armen Amezcua MD PCP: Matthew Wallace DO Status: REG CLI Study: Chest PA and Lateral Date of Exam: 02/19/18 Exam# [id number] Ordering Dr: Stevan Saldana DO HISTORY: SOBShort [...] CC: Stevan Saldana D.O.; Matthew Wallace DO Monomer Recovery Supervisor: Signed CARDIOLOGY VISIT Observed: 02/12/2018 Status: F Source: [place] REPORT 10:10 AM [facility] REPOSITORY [facility] [place] [facility] 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 Plan Detail Follow Up 8 Months (jhr) Coding Level of Care Code Off vis,est,level [...] Status: F Source: [place] AG 2:35 PM [facility] REPOSITORY TYPE CODE TESTS RESULT OUT OF RANGE REFERENCE UNITS LAB L3100.0400 Negative Normal HB Negative SURF AG Result Comment: Performed at: - [facility] [address] [id number] Mud Temperer: Facundo Gray PhD, Phone: [phone] Performed By: #### L3100.0390 #### [facility] (refer to report for specific site) refer to report for address and phone number MISCELLANEOUS LAB Collected: 02/09/2018 Status: F Source: [place] PROCEDURE 2:35 PM [facility] REPOSITORY Order Comment: Comments: QFT [id number] Test(s) Ordered: QFT [id number] TYPE CODE TESTS RESULT OUT OF RANGE REFERENCE UNITS LAB L801.1541 Normal [facility] LAB TEST Result Comment: TEST RESULT LIMITS [...] production of interferon gamma. TESTING PERFORMED AT [facility]. ORIGINAL REPORT ON FILE IN LAB CONTAINS ADDITIONAL TEST SITE INFORMATION. Performed By: #### L801.1541 #### [place] [facility] [address] [place], [address] MISCELLANEOUS LAB Collected: 02/09/2018 Status: F Source: [place] PROCEDURE 2:35 PM [facility] REPOSITORY Order Comment: Comments: PROMETHEUS 7300 Test(s) Ordered: PROMETHEUS 7300 TYPE CODE TESTS RESULT OUT OF RANGE REFERENCE UNITS LAB L801.1541 Normal [facility] LAB TEST Result Comment: Scanned image report available in EMR Performed By: #### L801.1541 #### [facility] [address] [place], [place], [address] CBC W/DIFF, AUTOMATED Collected: 02/09/2018 Status: F Source: [place] 2:34 PM [facility] REPOSITORY TYPE CODE TESTS RESULT OUT OF [...] Lymph 0.95 Performed By: #### L100.0100 #### [facility] [address] [place], [place], [address] SPINE LUMBAR Observed: 02/03/2018 Status: F Source: [place] (ROUTINE) 9:31 AM [facility] REPOSITORY [facility] Imaging Services [address] [place] [address] Spine Lumbar (Routine) MR#: [id number] Acct: [id number] Name: AMANDA SANCHEZ Rep #: [id number] : 1955 F 62 From: Nav Ruiz PCP: Matthew Wallace DO Status: REG CLI Study: Spine Lumbar (Routine) Date of Exam: 02/03/18 Exam# [id number] Ordering Dr: Francisco Blair MD STUDY: MRI [...] , CC: Francisco Blair; Matthew Wallace DO Monomer Recovery Supervisor: Signed EMERGENCY DEPARTMENT Observed: 01/25/2018 Status: F Source: [place] SUMMARY 3:44 PM [facility] REPOSITORY [facility] Medical Records Department [address] [facility] [facility] [place] [address] Emergency Department Summary 01/25/18 1452 MR#: [id number] Acct: [id number] Name: AMANDA SANCHEZ Alpa Rep #: [id number] : 1955 62 From: Nalini Evans MD [...] back disorder This note was generated with [employer] dictation software. It may contain incorrect words, spelling, and punctuation that were not noted in review of the chart prior to signing ED Disposition - Plan for ED Patient: Chief Complaint: Back Referrals: Matthew Wallace, DO [Primary Care Provider] - What to do if you have Problems For any increased pain, shortness of breath, bleeding, nausea or vomiting, chest pain, or any unexpected problems, contact your Primary Care Provider. Call [facility] ([phone]) or report to the closest Emergency Room. Call 911 if necessary. 01/25/18 1544 <Electronically signed by Nalini Evans MD> Date Nalini Evans MD Cosigner Signature (If Indicated): Date CC: Matthew Wallace DO DISCHARGE INSTRUCTION Observed: 01/25/2018 Status: F Source: [place] 2:58 PM [facility] REPOSITORY [facility] Medical Records Department [address] [place] [address] Discharge Instruction 01/25/187 MR#: [id number] Acct: [id number] Name: AMANDA SANCHEZ Rep #: [id number] : 1955 62 From: Nalini Evans MD [...] your Primary Care Provider. Call [facility] ([phone]) or report to the closest Emergency Room. Call 911 if necessary. 01/25/181457 <Electronically signed by Nalini Evans MD> Date Nalini Evans MD Cosigner Signature (If Indicated): Date CC: Matthew Wallace DO CBC W/DIFF, AUTOMATED Collected: 01/15/2018 Status: F Source: [place] 8:37 AM [facility] REPOSITORY TYPE CODE TESTS RESULT OUT OF [...] Lymph 1.11 Performed By: #### L100.0100 #### [facility] [address] [facility] [place], [address] CBC W/DIFF, AUTOMATED Collected: 12/22/2017 Status: F Source: [place] 1:11 PM [facility] REPOSITORY TYPE CODE TESTS RESULT OUT OF [...] Lymph 1.20 Performed By: #### L100.0100 #### [facility] [address] [place], [place], [id number] LIVER PROFILE Collected: 12/22/2017 Status: F Source: [place] 1:11 PM [facility] REPOSITORY TYPE CODE TESTS RESULT OUT OF [...] BILI 0.14 Performed By: #### L500.3400 #### [facility] [address] [place], [address] THYROID STIM HORMONE Collected: 11/06/2017 Status: F Source: [place] (TSH) 3:18 PM [facility] REPOSITORY TYPE CODE TESTS RESULT OUT OF RANGE REFERENCE UNITS LAB L501.9520 0.358-3.74 uIU/mL Normal TSH 1.52 Performed By: #### L501.9520, L503.6150, L503.6550, L506.0400 #### [facility] [address] [place], [address] IRON Collected: 11/06/2017 Status: F Source: [place] 3:18 PM [facility] REPOSITORY TYPE CODE TESTS RESULT OUT OF RANGE REFERENCE UNITS LAB L503.6150 50-170 ug/dL Low IRON 31 Performed By: #### L501.9520, L503.6150, L503.6550, L506.0400 #### [facility] [address] [place], [address] FERRITIN Collected: 11/06/2017 Status: F Source: [place] 3:18 PM [facility] REPOSITORY TYPE CODE TESTS RESULT OUT OF RANGE REFERENCE UNITS LAB L503.6550 8-252 ng/mL Normal FERRITIN 22 Performed By: #### L501.9520, L503.6150, L503.6550, L506.0400 #### [facility] [address] [place], [address] T4 FREE DIRECT Collected: 11/06/2017 Status: F Source: [place] 3:18 PM [facility] REPOSITORY TYPE CODE TESTS RESULT OUT OF RANGE REFERENCE UNITS LAB L506.0400 0.76-1.46 ng/dL Normal T4 FREE 0.99 DIRECT Performed By: #### L501.9520, L503.6150, L503.6550, L506.0400 #### [facility] [address] [place], [address] VITAMIN B12 Collected: 11/06/2017 Status: F Source: [place] 3:18 PM [facility] REPOSITORY TYPE CODE TESTS RESULT OUT OF RANGE REFERENCE UNITS LAB L503.0105 211-911 pg/mL Normal Vitamin B12 259 Performed By: #### L503.0105 #### [facility] [address] [place], [place], [address] CBC W/DIFF, AUTOMATED Collected: 10/17/2017 Status: F Source: [place] 3:08 PM [facility] REPOSITORY TYPE CODE TESTS RESULT OUT OF [...] Lymph 0.88 Performed By: #### L100.0100 #### [facility] [address] [facility] [place], [address] LIVER PROFILE Collected: 09/15/2017 Status: F Source: [place] 11:10 AM [facility] REPOSITORY TYPE CODE TESTS RESULT OUT OF [...] BILI 0.08 Performed By: #### L500.3400 #### [facility] [address] [place], [address] CBC W/DIFF, AUTOMATED Collected: 09/15/2017 Status: F Source: [place] 11:10 AM [facility] REPOSITORY TYPE CODE TESTS RESULT OUT OF [...] Lymph 0.79 Performed By: #### L100.0100 #### [facility] [address] [place], [address] DOWNTIME REPORT Observed: 08/28/2017 Status: F Source: [place] 1:22 PM [facility] REPOSITORY [facility] Medical Records Department [address] [place] [address] Downtime Report MR#: [id number] Acct: [id number] Name: AMANDA SANCHEZ Rep #: [id number] : 1955 62 From: Arjun Vinson PCP: Matthew Wallace DO Status: REG CLI This patient was seen during an EMR downtime August 11, 2017 - August 18, 2017. This patient may have a combination of paper and electronic documentation or all paper documentation. All documentation is viewable within the e-chart portion of [employer] for each patient visit. PAP I-G W/RFX HRHPV Collected: 08/12/2017 Status: F Source: [place] 12:00 AM [facility] REPOSITORY Order Comment: CYTOLOGY INFORMATION: - CLINICAL INFORMATION: POSTMENOPAUSAL - DATE LMP/MENOPAUSE: - COLLECTION VIAL: Thin Prep Vial - ELECTRONIC SERVICE TECHNICIAN SOURCE: CERVICAL/ENDOCERVICAL - COLLECTION TECHNIQUE: BRUSH/SPATULA TYPE CODE TESTS RESULT OUT OF RANGE REFERENCE UNITS LAB L7400.0800 Normal DIAGN Result Comment: NEGATIVE FOR INTRAEPITHELIAL LESION AND MALIGNANCY. THIS SPECIMEN WAS RESCREENED PART OF OUR UNIT SUPPORT REPRESENTATIVE PROGRAM. LAB L7400.0900 Normal ADEQ Result Comment: Satisfactory for evaluation. Endocervical and/or squamous metaplastic cells (endocervical component) are present. LAB L7400.1400 Normal PERFORM Result Comment: Performed by Saida Gaxiola, Still Operator (ASCP) LAB L7400.2550 Normal COMMENT Result Comment: [...] MAMM (CAD), Observed: 07/28/2017 Status: F Source: [place] BILAT 10:15 AM [facility] REPOSITORY [facility] Imaging Services [address] [place] [address] SCREENING MAMM (CAD), BIL MR#: [id number] Acct: [id number] Name: AMANDA SANCHEZ Rep #: [id number] : 1955 F 62 From: Bob Oro MD PCP: Matthew Wallace DO Status: REG NESTOR Study: SCREENING MAMM (CAD), BILAT Date of Exam: 07/28/17 Exam# [id number] Ordering Dr: Carola Gary MD MAMMOGRAPHY - [...] delay biopsy of a clinically suspicious abnormality. [id number] Electronically Signed: Bob Oro MD at 12:24 EDT Tel [phone], Service support , CC: Carola Gary MD; Matthew Wallace DO Monomer Recovery Supervisor: Signed CARDIOLOGY VISIT Observed: 07/08/2017 Status: F Source: [place] REPORT 4:27 PM [facility] REPOSITORY [facility] [address] [place] [address]. [address] [place] [address] OFFICE VISIT Date of Service: 07/08/17 MR#: [id number] Acct: [id number] Name: AMANDA SANCHEZ Rep #: [id number] : 1955 Provider: SHEMAR Dave Age/Sex: 62/F [place] [facility] [place] Status: Signed HPI HPI Details: AMANDA SANCHEZ, [...] Pressure 128/72 Intake Visit Reasons: 6 M [employer] Professor Required: No Accompanied by: none Is patient [...] prior to saving. 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 [address] [facility] [place] [address] 12 Lead EKG performed by [facility] 07/08/17 1049 MR#: [id number] Acct: [id number] Name: AMANDA SANCHEZ Rep #: [id number] : 1955 62 From: Germán Dave PROTEIN SPECIALIST-C Attending Dr: Germán Dave NP Status: DEP AMB Ordering Dr: Germán DaveC Date: 07/08/17 Location: [facility] [place] Sex: F C Admitted: [facility]/12 Lead EKG performed by [facility] ECG Report Interpretation Sinus Rhythm -Incomplete left bundle branch block. ABNORMAL Electronically signed on 07/10/2017 at 17:05 by Andrew Keane 07/10/17 6990 Date Germán Palma Tenzin PROTEIN SPECIALIST-C CC: Matthew Wallace DO Date Dictated: 07/08/171048 Date Transcribed: 07/08/171048 Monomer Recovery Supervisor: JOSE LUIS Signed LIVER PROFILE Collected: 07/07/2017 Status: F Source: [place] 11:15 AM [facility] REPOSITORY TYPE CODE TESTS RESULT OUT OF [...] BILI 0.08 Performed By: #### L500.3400 #### [facility] [place], [address] CBC W/DIFF, AUTOMATED Collected: 07/07/2017 Status: F Source: [place] 11:15 AM [facility] REPOSITORY TYPE CODE TESTS RESULT OUT OF [...] 1+ ANISO. Performed By: #### L100.0100 #### [facility] [address] [place], [place] [address], [address] LIVER PROFILE Collected: 06/09/2017 Status: F Source: [place] 3:39 PM [facility] REPOSITORY TYPE CODE TESTS RESULT OUT OF [...] BILI 0.09 Performed By: #### L500.3400 #### [facility] [address] [place], [place], [address] CBC W/DIFF, AUTOMATED Collected: 06/09/2017 Status: F Source: [place] 3:39 PM [facility] REPOSITORY TYPE CODE TESTS RESULT OUT OF [...] 2+ ANISOCYTOSIS Performed By: #### L100.0100 #### [facility] [address] [place], [place], [address] CBC-COMPLETE BLOOD CNT Collected: 05/21/2017 Status: F Source: [place] NO DIFF 10:56 AM [facility] REPOSITORY Order Comment: SEND COPY OF RESULTS [...] 10.9 Performed By: #### L100.0500, L101.9900 #### [facility] [address] [place], [place], [address] ERYTHROCYTE SED RATE Collected: 05/21/2017 Status: F Source: [place] 10:56 AM [facility] REPOSITORY Order Comment: SEND COPY OF RESULTS TO ALSO. TYPE CODE TESTS RESULT OUT OF RANGE REFERENCE UNITS LAB L102.0000 0-30 mm/hr Normal SED RATE 26 Performed By: #### L100.0500, L101.9900 #### [facility] [address] [place], [address] COMPREHENSIVE METABOLIC Collected: 05/21/2017 Status: F Source: [place] GRIMM 10:56 AM [facility] REPOSITORY Order Comment: SEND COPY OF RESULTS [...] 6 Performed By: #### L500.4050, L501.6710 #### [facility] [address] [place], [address] CRP Collected: 05/21/2017 Status: F Source: [place] 10:56 AM [facility] REPOSITORY Order Comment: SEND COPY OF RESULTS [...] ordered. Performed By: #### L500.4050, L501.6710 #### [facility] [address] [place], [address] MISCELLANEOUS LAB Collected: 05/21/2017 Status: F Source: [place] PROCEDURE 10:56 AM [facility] REPOSITORY Order Comment: Comments: WB EDTA TUBE Test(s) Ordered: PROMETHEUS TPMT ENZYME TYPE CODE TESTS RESULT OUT OF RANGE REFERENCE UNITS LAB L801.1541 Normal MISC LAB TEST Result Comment: Scanned image report available in EMR Performed By: #### L801.1541 #### [facility] [address] [place], [address] ALLERGIES ALLERGIES DATE TYPE / CODE NAME / CODE REACTION SEVERITY SOURCE 02/19/2018 Drug hydrocodone/ gi upset [facility] Allergy/4160 [id number]( Hospital [facility](SNOMED XNORM) Repository CT) 02/19/2018 Drug propoxyphene gi upset [facility] Allergy/4160 /[id number]( Hospital [facility](SNOMED RXNORM) Repository CT) 02/19/2018 Drug acetaminophe gi upset [facility] Allergy/4160 n/[id number] Hospital [facility](SNOMED (RXNORM) Repository CT) 02/19/2018 Drug cortisone/F0 Unknown [place] [facility] Allergy/4160 [id number]([facility] [address](SNOMED ORM) Repository CT) ENCOUNTERS ENCOUNTERS ADMIT/DISCHARGE ACCOUNT ADMITTING ENCOUNTER LOCATION SOURCE NUMBER CLASS 04/01/2018 [id number] [place] [facility] ing:MTLAB Repository 03/05/2018 [id number] [place] [facility] ing:MEDOUTP Repository 02/19/2018 [id number] [place] [facility] Repository 02/19/2018/ [id number] Ambulatory [facility] [place] [facility] 5 [facility] Repository 02/12/2018/ [id number] Ambulatory [facility] [place] [facility] Repository 02/09/2018/ [id number] Amb[place] 8 [facility] ing:MTLAB Repository 02/03/2018 [id number] Ambulatory [place] 8 [facility] ing:MRI Repository 01/25/2018/ [id number] Emergency [place] [facility] 4 [facility] [facility] Rep[facility] 01/15/2018 [id number] Ambulatory [place] Robin 2 [facility] ing:MTLAB Repository 12/22/2017 [id number] Ambulatory Robin [place] 6 [facility] ing:MTLAB Repository 11/06/2017 [id number] Ambulatory Robin [place] 2 [facility] ing:BFHLAB Repository 10/17/2017 [id number] Ambulatory [place] 7 [facility] ing:MTLAB Repository 09/15/2017 [id number] Ambulatory [place] Robin 3 [facility] ing:MTLAB Repository 08/12/2017 [id number] Ambulatory Robin [place] 3 [facility] ing:WOBLAB Repository 07/28/2017 [id number] Ambulatory [place] 3 [facility] ing:OPBI Repository 07/08/2017/ [id number] Ambulatory BMSBuilding:B [place] 8 5 [facility] Repository 07/07/2017 [id number] Ambulatory [place] 4 [facility] ing:MTLAB Repository 07/02/2017 [id number] Ambulatory BMS [place] 5 [facility] Repository 06/09/2017 [id number] Ambulatory Robin [place] 9 [facility] ing:LAB.KARELY Repository E 05/21/2017 [id number] Ambulatory Robin [place] 1 [facility] ing:MTLAB Repository PAYERS PAYERS ENCOUNTER GUARANTOR PAYER SUBSCRIBER SOURCE 04/01/2018 AMANDA J Primary AMANDA J [place] [id number] Insurance:MEDICAL JUSTICEDOB: [facility] [place] Number: Repository [id number]: ([phone]) [id number] [phone] (HP) Date:5345-91-08OA [address] [address]UV: 04/01/2018 Secondary ISADORA L [place] Insurance:MED MUT JUSTICEDOB: [facility] [id number] Hospital Number: Repository [id number] Date:7640-84-10EQ[address] [address]TT: 04/01/2018 Tertiary NOT GIVENUNK [place] Insurance:SELF PAY [facility] Number: Effective Repository Date:2018-03-09 03/05/2018 ISADORA L Primary AMANDA J [place] [id number] Insurance:MEDICAL JUSTICEDOB: [facility] [place]73[place] Number: Repository [id number]: 234 [id number] [phone] (HP) Date:2950-32-31FP [address] [place] [address]CG: 03/05/2018 Secondary ISADORA L [place] Insurance:MED MUT JUSTICEDOB: [facility] [id number] Hospital Number: Repository [id number] Date:9120-29-29YA [address] [address]FO: 03/05/2018 Tertiary NOT GIVENUNK [place] Insurance:SELF PAY [facility] Hospital Number: Effective Repository Date:2018-02-23 02/19/2018 ISADORA L Primary AMANDA J [place] [id number] Insurance:MEDICAL JUSTICEDOB: [facility] 7357[place]58[place] Number: Repository [id number]: (066) [id number] [phone] (HP) Date:2825-20-44AY [address] [place] [address]FL: 02/19/2018 Secondary ISADORA L [place] Insurance:MED MUT JUSTICEDOB: [facility] [id number] Hospital Number: Repository [id number] Date:0098-34-14HD [address] [address]PB: 02/19/2018 Tertiary NOT GIVENUNK [place] Insurance:SELF PAY [facility] Hospital Number: Effective Repository Date:2018-02-19 02/19/2018 ISADORA L Primary AMANDA J [place] [id number] Insurance:MEDICAL JUSTICEDOB: [facility] [id number] Number: Repository [address]Srb: 234 [id number] [phone] (HP) Date:4139-44-69PW [address] [address]VK: 02/19/2018 Secondary ISADORA L [place] Insurance:MED MUT JUSTICEDOB: [facility] [id number] Hospital Number: Repository [id number] Date:1408-30-28SN [address] [address]LN: 02/19/2018 Tertiary NOT GIVENUNK [place] Insurance:SELF PAY [facility] Number: Effective Repository Date:2018-02-16 02/12/2018 ISADORA L Primary AMANDA J [place] [id number] Insurance:MEDICAL JUSTICEDOB: [facility] [id number] Number: Repository [id number]: 234 [id number] [phone] (HP) Date:9130-20-35VY [address] [address]OB: 02/12/2018 Secondary ISADORA L [place] Insurance:MED MUT JUSTICEDOB: [facility] [id number] Hospital Number: Repository [id number] Date:5101-41-87BU [address] [address]CT: 02/12/2018 Tertiary NOT GIVENUNK [place] Insurance:SELF PAY [facility] Number: Effective Repository Date:2018-02-12 02/09/2018 ISADORA L Primary AMANDA J [place] [id number] Insurance:MEDICAL JUSTICEDOB: [facility] 5057[place]75[place]DFW[place] Number: Repository [id number]: 234 [id number] [phone] (HP) Date:5580-56-22BG [address] [address]ZT: 02/09/2018 Secondary ISADORA L [place] Insurance:MED MUT JUSTICEDOB: [facility] [id number] Hospital Number: Repository [id number] Date:1700-97-71RR [address] [address]MV: 02/09/2018 Tertiary NOT GIVENUNK [place] Insurance:SELF PAY [facility] Hospital Number: Effective Repository Date:2018-02-09 02/03/2018 ISADORA L Primary AMANDA J [place] [id number] Insurance:MEDICAL JUSTICEDOB: [facility] 3676[place]35[place]AD[place] Number: Repository [id number]: ([phone]) [id number] [phone] (HP) Date:2663-44-32HM [address] [address]TG: 02/03/2018 Secondary ISADORA L [place] Insurance:MED MUT JUSTICEDOB: [facility] [id number] Hospital Number: Repository [id number] Date:9634-25-64OT [address] [address]UI: 02/03/2018 Tertiary NOT GIVENUNK [place] Insurance:SELF PAY [facility] Hospital Number: Effective Repository Date:2018-01-26 01/25/2018 ISADORA L Primary AMANDA J [place] [id number] Insurance:MEDICAL JUSTICEDOB: [facility] 6352-35[place]EL[place] Number: Repository [id number]: ([phone]) [id number] [phone] (HP) Date:6829-14-87QS [address] [address]YM: 01/25/2018 Secondary ISADORA L [place] Insurance:MED MUT JUSTICEDOB: [facility] [id number] Hospital Number: Repository [id number] Date:4455-76-47FO [address] [address]KW: 01/25/2018 Tertiary NOT GIVENUNK [place] Insurance:SELF PAY [facility] Hospital Number: Effective Repository Date:2018-01-25 01/15/2018 ISADORA L Primary AMANDA J [place] [id number] Insurance:MEDICAL JUSTICEDOB: [facility] [id number] Number: Repository [id number]: 234 [id number] [phone] (HP) Date:2572-42-66BU [address] [address]GK: 01/15/2018 Secondary ISADORA L [place] Insurance:MED MUT JUSTICEDOB: [facility] [id number] Hospital Number: Repository [id number] Date:6945-65-71ZC [address] [address]DG: 01/15/2018 Tertiary NOT GIVENUNK [place] Insurance:SELF PAY [facility] Hospital Number: Effective Repository Date:2018-01-15 12/22/2017 ISADORA L Primary AMANDA J [place] [id number] Insurance:MEDICAL JUSTICEDOB: [facility] 7629-99-[place]LLL[place] Number: Repository [id number]: ([phone]) [id number] [phone]) Date:2781-83-34IP [address] [address]MI: 12/22/2017 Secondary ISADORA L [place] Insurance:MED MUT JUSTICEDOB: [facility] [id number] Hospital Number: Repository [id number] Date:9897-87-37NP [address] [address]VN: 12/22/2017 Tertiary NOT GIVENUNK [place] Insurance:SELF PAY [facility] Number: Effective Repository Date:2017-12-22 11/06/2017 ISADORA L Primary AMANDA J [place] [id number] Insurance:MEDICAL JUSTICEDOB: [facility] 8476-66-[place]OU[place] Number: Repository [id number]: 234 [id number] [phone] (HP) Date:0669-74-34FJ [address] [address]CT: 11/06/2017 Secondary ISADORA L [place] Insurance:MED MUT JUSTICEDOB: [facility] [id number] Hospital Number: Repository [id number] Date:9766-27-01YN [address] [address]NN: 11/06/2017 Tertiary NOT GIVENUNK [place] Insurance:SELF PAY [facility] Hospital Number: Effective Repository Date:2017-11-06 10/17/2017 IASDORA L Primary AMANDA J [place] [id number] Insurance:MEDICAL JUSTICEDOB: [place]8416-[place] Number: Repository [address]Nxz: ([phone]) [id number] [phone]) Date:8278-42-32ID [address] [address]LQ: 10/17/2017 Secondary ISADORA L [place] Insurance:MED MUT JUSTICEDOB: [facility] [id number] Hospital Number: Repository [id number] Date:2380-97-10KY [address] [address]OM: 10/17/2017 Tertiary NOT GIVENUNK [place] Insurance:SELF PAY [facility] Number: Effective Repository Date:2017-10-17 09/15/2017 Isadora L Primary AMANDA J [place] [id number] Insurance:MEDICAL JUSTICEDOB: [facility] [id number] Number: Repository [id number]: 234 [id number] [phone] (HP) Date:1226-15-38ZY [address] [address]FS: 09/15/2017 Secondary Isadora L [place] Insurance:MED MUT JusticeDOB: [facility] [id number] Hospital Number: Repository [id number] Date:9817-51-27BN [address] [address]SA: 09/15/2017 Tertiary NOT GIVENUNK [place] Insurance:SELF PAY [facility] Hospital Number: Effective Repository Date:2017-09-15 08/12/2017 Iasdora L Primary AMANDA J [place] [id number] Insurance:MEDICAL JUSTICEDOB: [facility] 0025-91[place] Number: Repository [address]Oux: 234 [id number] [phone] (HP) Date:6950-57-36XE [address] [address]LH: 08/12/2017 Secondary Isadora L [place] Insurance:MED MUT JusticeDOB: [facility] [id number] Hospital Number: Repository [id number] Date:2243-42-32QE [address] [place] [address]VB: 08/12/2017 Tertiary NOT GIVENUNK [place] Insurance:SELF PAY [facility] Number: Effective Repository Date:2017-08-12 07/28/2017 Isadora L Primary AMANDA J [place] [id number] Insurance:MEDICAL JUSTICEDOB: [facility] 4755-17-66[place]NI[place] Number: Repository [address]Zev: 234 [id number] [phone] (HP) Date:9232-96-40OJ [address] [address]NK: 07/28/2017 Secondary Isadora L [place] Insurance:MED MUT JusticeDOB: [facility] [id number] Hospital Number: Repository [id number] Date:1228-60-33TA [address] [address]BA: 07/28/2017 Tertiary NOT GIVENUNK [place] Insurance:SELF PAY [facility] Number: Effective Repository Date:2017-07-01 07/08/2017 Isadora L Primary AMANDA J [place] [id number] Insurance:MEDICAL JUSTICEDOB: [facility] 0655-44-23[place]NB[place] Number: [place]ository [id number]: 234 [id number] [phone] (HP) Date:4470-00-52PG [address] [address]QA: 07/08/2017 Secondary Isadora L [place] Insurance:MED MUT JusticeDOB: [facility] [id number] Hospital Number: Repository [id number] Date:6674-86-01CG [address] [address]JU: 07/08/2017 Tertiary NOT GIVENUNK [place] Insurance:SELF PAY [facility] Number: Effective Repository Date:2017-02-20 07/07/2017 Isadora L Primary AMANDA J [place] [id number] Insurance:MEDICAL JUSTICEDOB: [facility] 8507-22-15[place]JK[place] Number: Repository [address]Ohp: (130) [id number] [phone] (HP) Date:5311-22-21FO [address] [place] [address]PC: 07/07/2017 Secondary Isadora L [place] Insurance:MED MUT JusticeDOB: [facility] [id number] Hospital Number: Repository [id number] Date:3313-20-20XO [address] [place] [address]HZ: 07/07/2017 Tertiary NOT GIVENUNK [place] Insurance:SELF PAY [facility] Hospital Number: Effective Repository Date:2017-07-07 07/02/2017 Isadora L Primary AMANDA J [place] [id number] Insurance:MEDICAL JUSTICEDOB: [facility] 5307-85-[place] Number[place]ository [address]Dbb: (201) [id number] [phone] (HP) Date:1957-50-58CE [address] [place] [address]GK: 07/02/2017 Secondary Isadora L [place] Insurance:MED MUT JusticeDOB: [facility] [id number] Hospital Number: Repository [id number] Date:2702-73-20DN [address] [address]LS: 07/02/2017 Tertiary NOT GIVENUNK [place] Insurance:SELF PAY [facility] Hospital Number: Effective Repository Date:2017-07-02 06/09/2017 Isadora L Primary AMANDA J [place] [id number] Insurance:MEDICAL JUSTICEDOB: [facility] 6246-16-37CTC[place] Number[place]ository [id number]: ([phone]) [id number] [phone] (HP) Date:1812-49-23VS [address] [place] [address]QM: 06/09/2017 Secondary Isadora L [place] Insurance:MED MUT JusticeDOB: [facility] [id number] Hospital Number: Repository [id number] Date:4490-85-58LT [address] [address]FD: 06/09/2017 Tertiary NOT GIVENUNK [place] Insurance:SELF PAY [facility] Hospital Number: Effective Repository Date:2017-05-27 05/21/2017 Isadora L Primary AMANDA J [place] [id number] Insurance:MEDICAL JUSTICEDOB: [facility] 6449-20-59[place]EE[place] Number: Repository [id number]: ([phone]) [id number] [phone] Date:7915-69-34PU [address] [address]XT: 05/21/2017 Secondary Isadora L [place] Insurance:MED MUT JusticeDOB: [facility] [id number] Hospital Number: Repository [id number] Date:4251-13-33UK [address] [address]SJ: 05/21/2017 Tertiary NOT GIVENUNK [place] Insurance:SELF PAY [facility] Number: Effective Repository Date:2017-05-21
== END ==
PROVIDERS: Family Provider Family Medicine; PCP Family Medicine; Visit Provider Internal Medicine Critical Care Medicine
DX: Z20.1 Contact with and (suspected) exposure to tuberculosis (principal)
CPT/HCPCS: 71046

== ENCOUNTER → 2018-03-05 08:50 | Outpatient (CLI) | payer OTHER, SELFPAY ==
[2018-02-19 08:21] VITALS: BMI 34.5
[2018-03-05 09:00] VITALS: BP 136/76; PULSE 74; RESP 16; TEMP 36.1; O2SAT 98; BMI 34.4
== END ==
PROVIDERS: Family Provider Family Medicine; PCP Family Medicine; Referring Provider Internal Medicine Gastroenterology; Visit Provider Internal Medicine Gastroenterology
DX: K50.90 Crohn's disease, unspecified, without complications (principal)
CPT/HCPCS: 96365; J7050; A4216; J3358

== ENCOUNTER 2018-04-01 10:48 | Outpatient (RCR) | payer OTHER, SELFPAY ==
[2018-03-05 09:00] VITALS: BMI 34.4
[2018-04-01 12:31] LABS: Absolute Lymphocyte Count 0.82 X10^3/ul (0.83-4.51); Absolute Neutrophil Count 2.1 X10^3/uL (2.0-7.7); Basophil# 0.07 X10^3/uL; Eosinophil# 0.15 X10^3/uL; Eosinophils% 4.2 % (0-5); Hematocrit 37.2 % (37-47); Hemoglobin 11.3 g/dl (12.0-15.0); Lymphocyte # 0.82 X10^3/ul (4.0); Lymphocyte % 23.2 % (19-41); Mean Corp Hgb Conc 30.4 g/gl (32-36); Mean Corpuscular Hgb 25.4 pg (27.0-32.0); Mean Corpuscular Volume 83.6 fL (81-99); Mean Platelet Vol. 11.4 fl (6.2-12.0); Monocyte# 0.36 X10^3/uL; Monocyte% 10.2 % (0-10); Neutrophil # 2.13 X10^3/uL (2.7-7.7); Neutrophil % 60.1 % (47-70); Platelet Count 277 K/mm3 (150-450); RBC Distribution Width CV 14.1 % (11.6-14.6); RBC Distribution Width SD 42.4 fl (35.1-43.9); Red Blood Count 4.45 M/mm3 (4.2-5.4); White Blood Count 3.5 K/mm3 (4.4-11.0)
[2018-04-01 12:35] LABS: POSITIVE COUNT NO; POSITIVE DIFFERENTIAL NO; POSITIVE MORPHOLOGY NO
--- OUTSIDE RECORDS SUMMARY | 2018-06-03 08:31 | XMS RPT_ITS ---
:1955 Author Organization OHIP Support Name Relationship Address Phone ISADORA SANCHEZ Unavailable [address] + [place] [address] R Unavailable Unavailable Unavailable REILLY, IBETH Unavailable Unavailable + ISADORA SANCHEZ Unavailable [address] + [place] [address] R Unavailable Unavailable Unavailable REILLY, IBETH Unavailable Unavailable + JESSE SANCHEZIL Unavailable [address] + [place] [address] R Unavailable Unavailable Unavailable REILLY, IBETH Unavailable Unavailable + JESSE SANCHEZIL Unavailable [address] + [place] [address] R Unavailable Unavailable Unavailable REILLY, IBETH Unavailable Unavailable + [place] [address] JESSE SANCHEZIL Unavailable [address] + [place] [address] R Unavailable Unavailable Unavailable REILLY, IBETH Unavailable Unavailable + [place] [address] ISADORA SANCHEZ Unavailable Unavailable + [place] [address] R Unavailable Unavailable Unavailable REILLY, IBETH Unavailable Unavailable + [place] [address] ISADORA SANCHEZ Unavailable Unavailable + [place] [address] R Unavailable Unavailable Unavailable REILLY, IBETH Unavailable Unavailable + [place] [address] ISADORA SANCHEZ Unavailable Unavailable + [place] [address] R Unavailable Unavailable Unavailable REILLY, IBETH Unavailable Unavailable + [place] [address] JESSE SANCHEZIL Unavailable Unavailable + [place] [address] R Unavailable Unavailable Unavailable REILLY, IBETH Unavailable Unavailable + [place] [address] JESSE SANCHEZIL Unavailable Unavailable + [place] [address] R Unavailable Unavailable Unavailable REILLY, IBETH Unavailable Unavailable + [place] [address] JESSE SANCHEZIL Unavailable Unavailable + [place] [address] R Unavailable Unavailable Unavailable REILLY, IBETH Unavailable Unavailable + [place] [address] DANIEL ISADORA Unavailable Unavailable + [place] [address] R Unavailable Unavailable Unavailable REILLY, IBETH Unavailable Unavailable + [place] [address] R Unavailable Unavailable Unavailable REILLY, IBETH Unavailable Unavailable + [place] [address] R Unavailable Unavailable Unavailable REILLY, IBETH Unavailable Unavailable + [place] [address] R Unavailable Unavailable Unavailable REILLY, IBETH Unavailable Unavailable + [place] [address] R Unavailable Unavailable Unavailable R Unavailable Unavailable Unavailable REILLY, IBETH Unavailable . + [place] [address] BAUGHAN, LEFTY Unavailable [address] + [place] [address] JUSTICE, KAREL Unavailable [address] + [place] [address] R Unavailable Unavailable Unavailable BAUGHAN, LEFTY Unavailable [address] + [place] [address] JUSTICE, KAREL Unavailable [address] + [place] [address] R Unavailable Unavailable Unavailable BAUGHAN, LEFTY Unavailable [address] + [place] [address] JUSTICE, KAREL Unavailable [address] + [place] [address] R Unavailable Unavailable Unavailable BAUGHAN, LEFTY Unavailable [address] + [place] [address] JUSTICE, KAREL Unavailable [address] + [place] [address] R Unavailable Unavailable Unavailable Care Team Providers [...] Unavailable [place], Matthew Primary Care Unavailable Lakhwinder, [place] Attending Unavailable [place], Matthew Referring Unavailable PROBLEMS PROBLEMS DATE TYPE CONDITION / CODE ATTENDING STATUS SOURCE 02/19/2018 Unknown Z20.1 - Contact Marely Owen with and D.O. 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 / Z20.1(ICD-10) 02/12/2018 Unknown I48.0 - Paroxysmal Lakhwinder, [place] Active [place] atrial fibrillation Community / I48.0(ICD-10) Hospital Repository 02/12/2018 Unknown I10 - Essential Lakhwinder, Andrew Active [place] (primary) Community hypertension / Hospital I10(ICD-10) Repository 03/09/2018 Unknown K50.80 - Crohn's Facundo Brody Active [place] disease of both Community small and large Hospital intestine without Repository complications / K50.80(ICD-10) 11/06/2017 Unknown K50.90 - Crohn's Matthew Wallace Active [place] disease, Community unspecified, Hospital without Repository complications / K50.90(ICD-10) 11/06/2017 Unknown E04.2 - Nontoxic Matthew Wallace Active [place] multinodular goiter Community / E04.2(ICD-10) Hospital Repository 11/06/2017 Unknown D64.9 - Anemia, Matthew Wallace Active [place] unspecified / Community D64.9(ICD-10) Hospital Repository 11/06/2017 Unknown I48.91 - Matthew Wallace Active [place] Unspecified atrial Community fibrillation / Hospital I48.91(ICD-10) Repository 09/03/2017 Unknown Z12.4 - Encounter AbdirahmanIdalmisCarola Active [place] for screening for Community malignant neoplasm Hospital of cervix / Repository Z12.4(ICD-10) 07/28/2017 Unknown Z12.31 - Encounter Carola Gary Active [place] for screening Community mammogram for Hospital malignant neoplasm Repository of breast / Z12.31(ICD-10) 07/08/2017 Unknown R00.2 - Germán Dave Active [place] Palpitations / Community R00.2(ICD-10) Hospital Repository PROCEDURES PROCEDURES No Procedure Records FoundRESULTS RESULTS CBC W/DIFF, AUTOMATED Collected: 04/01/2018 Status: F Source: [place] 10:55 [facility] TYPE CODE TESTS RESULT OUT OF RANGE REFERENCE UNITS LAB L100.1000 4.4-11.0 K/mm3 Low WBC 3.5 LAB L100.1200 4.2-5.4 M/mm3 Normal RBC 4.45 LAB L100.1300 12.0-15.0 g/dl Low HGB 11.3 LAB L100.1400 37-47 % Normal HCT 37.2 LAB L100.1500 81-99 fL Normal MCV 83.6 LAB L100.1600 27.0-32.0 pg Low MCH 25.4 LAB L100.1700 32-36 g/gl Low MCHC 30.4 LAB L100.1810 11.6-14.6 % Normal RDW CV 14.1 LAB L100.1820 35.1-43.9 fl Normal RDW SD 42.4 LAB L100.1900 150-450 K/mm3 Normal PLT 277 LAB L100.2000 6.2-12.0 fl Normal MPV 11.4 LAB L100.2100 47-70 % Normal NEUT% 60.1 LAB L100.2200 19-41 % Normal LY% 23.2 LAB L100.2300 0-10 % High MONO% 10.2 LAB L100.2400 0-5 % Normal EO% 4.2 LAB L100.2500 0-1 % High BASO% 2.0 LAB L100.2550 0.0-0.9 % Normal IM GRAN % 0.300 Result Comment: IG% - Immature Granulocytes (promyelocytes, myelocytes and metamyelocytes) > 1% indicates that a LEFT SHIFT is Present. LAB L100.2620 2.0-7.7 X10 3/uL Normal Absolute Neut 2.1 LAB L100.2720 0.83-4.51 X10 3/ul Low Absolute Lymph 0.82 Performed By: #### L100.0100 #### [facility] [address] [facility]. [place], [place], [address] PULMONARY VISIT REPORT Observed: 02/19/2018 Status: F Source: [place] 11:14 AM [facility] REPOSITORY [facility] Pulmonary Medicine of [address] [place] [address] OFFICE VISIT Date of Service: 02/19/18 MR#: [id number] Acct: [id number] Name: CHIDI SANCHEZTESS Yuen Rep #: [id number] : 1955 Provider: Stevan Saldana D.O. Age/Sex: 62/F Location: [facility] Status: Signed Assessment AND Plan 1. IBD [...] for latent TB at that time. Her needle control cheniller is currently considering the initiation of an [...] 02/19/2018 Status: F Source: [place] 9:12 AM [facility] REPOSITORY [facility] Imaging Services [address] [place] [address] Chest PA and Lateral MR#: [id number] Acct: [id number] Name: AMANDA SANCHEZ Rep #: [id number] : 1955 F 62 From: Armen Amezcua MD PCP: Matthew Wallace DO Status: REG CLI Study: Chest PA and Lateral Date of Exam: 02/19/18 Exam# [id number] Ordering Dr: Stevan Saldana DO HISTORY: SOBShort [...] CC: Stevan Saldana D.O.; Matthew Wallace DO Examining Officer: Signed CARDIOLOGY VISIT Observed: 02/12/2018 Status: F Source: [place] REPORT 10:10 AM [facility] REPOSITORY [facility] [place] [facility] [address] [place] [address] OFFICE VISIT Date of Service: 02/12/18 MR#: [id number] Acct: [id number] Name: AMANDA SANCHEZ Rep #: [id number] : 1955 Provider: Andrew Keane MD Age/Sex: 62/F Location: [facility] Status: Signed HPI HPI Chief Complaint: Follow-up [...] Lt brachial Intake Visit Reasons: 7 m Community Relations Liaison Required: No Is patient in pain?: No [...] Status: F Source: [place] AG 2:35 PM [facility] REPOSITORY TYPE CODE TESTS RESULT OUT OF RANGE REFERENCE UNITS LAB L3100.0400 Negative Normal HB Negative SURF AG Result Comment: Performed at: - [facility] [address] [id number] Cord Cutter: Facundo Gray PhD, Phone: [phone] Performed By: #### L3100.0390 #### [facility] (refer to report for specific site) refer to report for address and phone number MISCELLANEOUS LAB Collected: 02/09/2018 Status: F Source: [place] PROCEDURE 2:35 PM [facility] REPOSITORY Order Comment: Comments: QFT [id number] Test(s) Ordered: QFT [id number] TYPE CODE TESTS RESULT OUT OF RANGE REFERENCE UNITS LAB L801.1541 Normal [facility] TEST Result Comment: TEST RESULT LIMITS [...] of interferon gamma. TESTING PERFORMED AT [facility]. ORIGINAL REPORT ON FILE IN LAB CONTAINS ADDITIONAL TEST SITE INFORMATION. Performed By: #### L801.1541 #### [facility] [address] [place], [place], [address] MISCELLANEOUS LAB Collected: 02/09/2018 Status: F Source: [place] PROCEDURE 2:35 PM [facility] REPOSITORY Order Comment: Comments: PROMETHEUS 7300 Test(s) Ordered: PROMETHEUS 7300 TYPE CODE TESTS RESULT OUT OF RANGE REFERENCE UNITS LAB L801.1541 Normal [facility] TEST Result Comment: Scanned image report available in EMR Performed By: #### L801.1541 #### [facility] [address] [place], [address] CBC W/DIFF, AUTOMATED Collected: 02/09/2018 Status: F Source: [place] 2:34 PM [facility] REPOSITORY TYPE CODE TESTS RESULT OUT [...] Lymph 0.95 Performed By: #### L100.0100 #### [facility] [address] [facility] [place], [address] SPINE LUMBAR Observed: 02/03/2018 Status: F Source: [place] (ROUTINE) 9:31 AM [facility] REPOSITORY [facility] Imaging [address] [address] Spine Lumbar (Routine) MR#: [id number] Acct: [id number] Name: AMANDA SANCHEZ Rep #: [id number] : 1955 F 62 From: Nav Ruiz PCP: Matthew Wallace DO Status: REG CLI Study: Spine Lumbar (Routine) Date of Exam: 02/03/18 Exam# [id number] Ordering Dr: Francisco Blair MD STUDY: MRI [...] , CC: Francisco Blair; Matthew Wallace DO Examining Officer: Signed EMERGENCY DEPARTMENT Observed: 01/25/2018 Status: F Source: [place] SUMMARY 3:44 PM [facility] REPOSITORY [facility] Medical Records Department [address] [place] [address] Emergency Department Summary 01/25/18 1452 MR#: [id number] Acct: [id number] Name: AMANDA SANCHEZ Rep #: [id number] : 1955 62 From: Nalini Evans MD [...] back disorder This note was generated with Safety[employer]atation software. It may contain incorrect words, spelling, [...] your Primary Care Provider. Call [facility] ([phone]) or report to the closest Emergency Room. Call 911 if necessary. 01/25/18 1544 <Electronically signed by Nalini Evans MD> Date Nalini Evans MD Cosigner Signature (If Indicated): Date CC: Matthew Wallace DO DISCHARGE INSTRUCTION Observed: 01/25/2018 Status: F Source: [place] 2:58 PM [facility] REPOSITORY [facility] Medical Records Department [address] [place] [address] [place] [address] Discharge Instruction 01/25/18 1457 MR#: [id number] Acct: [id number] Name: AMANDA SANCHEZ Rep #: [id number] : 1955 62 From: Nalini Evans MD [...] problems, contact your Primary Care Provider. Call [facility] [employer] ([phone]) or report to the closest Emergency Room. Call 911 if necessary. 01/25/18 1458 <Electronically signed by Nalini Evans MD> Date Nalini Evans MD Cosigner Signature (If Indicated): Date CC: Matthew Wallace DO CBC W/DIFF, AUTOMATED Collected: 01/15/2018 Status: F Source: [place] 8:37 AM [facility] REPOSITORY TYPE CODE TESTS RESULT OUT [...] Lymph 1.11 Performed By: #### L100.0100 #### [facility] [address] [employer] [facility] [place], [place], [address] CBC W/DIFF, AUTOMATED Collected: 12/22/2017 Status: F Source: [place] 1:11 PM [facility] REPOSITORY TYPE CODE TESTS RESULT OUT [...] Lymph 1.20 Performed By: #### L100.0100 #### [facility] [address] [facility]. [place], [place], [address] LIVER PROFILE Collected: 12/22/2017 Status: F Source: [place] 1:11 PM [facility] REPOSITORY TYPE CODE TESTS RESULT OUT [...] BILI 0.14 Performed By: #### L500.3400 #### [facility] [address] [facility]. [place], [place], [address] THYROID STIM HORMONE Collected: 11/06/2017 Status: F Source: [place] (TSH) 3:18 PM [facility] REPOSITORY TYPE CODE TESTS RESULT OUT OF RANGE REFERENCE UNITS LAB L501.9520 0.358-3.74 uIU/mL Normal TSH 1.52 Performed By: #### L501.9520, L503.6150, L503.6550, L506.0400 #### [facility] [address] [place], [address] IRON Collected: 11/06/2017 Status: F Source: [place] 3:18 PM [facility] REPOSITORY TYPE CODE TESTS RESULT OUT OF RANGE REFERENCE UNITS LAB L503.6150 50-170 ug/dL Low IRON 31 Performed By: #### L501.9520, L503.6150, L503.6550, L506.0400 #### [facility] [address] [place], [address] FERRITIN Collected: 11/06/2017 Status: F Source: [place] 3:18 PM [facility] REPOSITORY TYPE CODE TESTS RESULT OUT OF RANGE REFERENCE UNITS LAB L503.6550 8-252 ng/mL Normal FERRITIN 22 Performed By: #### L501.9520, L503.6150, L503.6550, L506.0400 #### [facility] [address] [place], [address] T4 FREE DIRECT Collected: 11/06/2017 Status: F Source: [place] 3:18 PM [facility] REPOSITORY TYPE CODE TESTS RESULT OUT OF RANGE REFERENCE UNITS LAB L506.0400 0.76-1.46 ng/dL Normal T4 FREE 0.99 DIRECT Performed By: #### L501.9520, L503.6150, L503.6550, L506.0400 #### [facility] [address] [place], [address] VITAMIN B12 Collected: 11/06/2017 Status: F Source: [place] 3:18 PM [facility] REPOSITORY TYPE CODE TESTS RESULT OUT OF RANGE REFERENCE UNITS LAB L503.0105 211-911 pg/mL Normal Vitamin B12 259 Performed By: #### L503.0105 #### [facility] [address] [place], [address] CBC W/DIFF, AUTOMATED Collected: 10/17/2017 Status: F Source: [place] 3:08 PM [facility] REPOSITORY TYPE CODE TESTS RESULT OUT [...] Lymph 0.88 Performed By: #### L100.0100 #### [facility] [address] [place], [place], [address] LIVER PROFILE Collected: 09/15/2017 Status: F Source: [place] 11:10 AM [facility] REPOSITORY TYPE CODE TESTS RESULT OUT [...] BILI 0.08 Performed By: #### L500.3400 #### [facility] [address] [place], [address] CBC W/DIFF, AUTOMATED Collected: 09/15/2017 Status: F Source: [place] 11:10 AM [facility] REPOSITORY TYPE CODE TESTS RESULT OUT [...] Lymph 0.79 Performed By: #### L100.0100 #### [facility] [address] [facility] [place], [address] DOWNTIME REPORT Observed: 08/28/2017 Status: F Source: [place] 1:22 PM [facility] REPOSITORY [facility] Medical Records Department [address] [facility] [address] Downtime Report MR#: [id number] Acct: [id number] Name: AMANDA SANCHEZ Rep #: [id number] : 1955 62 From: Arjun Vinson PCP: Matthew Wallace DO Status: REG CLI This patient was seen during an EMR downtime August 11, 2017 - August 18, 2017. This patient may have a combination of paper and electronic documentation or all paper documentation. All documentation is viewable within the e-chart portion of [facility] for each patient visit. PAP I-G W/RFX HRHPV Collected: 08/12/2017 Status: F Source: [place] 12:00 AM [facility] REPOSITORY Order Comment: CYTOLOGY INFORMATION: - CLINICAL INFORMATION: POSTMENOPAUSAL - DATE LMP/MENOPAUSE: - COLLECTION VIAL: Thin Prep Vial - DEPUTY JAILER SOURCE: CERVICAL/ENDOCERVICAL - COLLECTION TECHNIQUE: BRUSH/SPATULA TYPE CODE TESTS RESULT OUT OF RANGE REFERENCE UNITS LAB L7400.0800 Normal DIAGN Result Comment: NEGATIVE FOR INTRAEPITHELIAL LESION AND MALIGNANCY. THIS SPECIMEN WAS RESCREENED PART OF OUR RESCUE BOAT OPERATOR PROGRAM. LAB L7400.0900 Normal ADEQ Result Comment: Satisfactory for evaluation. Endocervical and/or squamous metaplastic cells (endocervical component) are present. LAB L7400.1400 Normal PERFORM Result Comment: Performed by Saida Gaxiola Exchange Operator (ASCP) LAB L7400.2550 Normal COMMENT Result [...] MAMM (CAD), Observed: 07/28/2017 Status: F Source: [facility] 10:15 AM [facility] REPOSITORY [facility] Imaging Services [address] [place] [address] SCREENING MAMM (CAD), BILAT MR#: [id number] Acct: [id number] Name: AMANDA SANCHEZ Rep #: [id number] : 1955 F 62 From: Bob Oro MD PCP: Matthew Wallace DO Status: REG CLLauren Study: SCREENING MAMM (CAD), BILAT Date of Exam: 07/28/17 Exam# [id number] Ordering Dr: Carola Gary MD MAMMOGRAPHY - [...] delay biopsy of a clinically suspicious abnormality. [id number] Electronically Signed: Bob Oro MD at 12:24 EDT Tel [phone], Service support , CC: Carola Gary MD; Matthew Wallace DO Examining Officer: Signed CARDIOLOGY VISIT Observed: 07/08/2017 Status: F Source: [place] REPORT 4:27 PM [facility] REPOSITORY [place] [facility] [address] [place] [address]. [address] [place] [address] OFFICE VISIT Date of Service: 07/08/17 MR#: [id number] Acct: [id number] Name: AMANDA SANCHEZ Rep #: [id number] : 1955 Provider: SHEMAR Dave Age/Sex: 62/F Location: [facility] Status: Signed HPI HPI Details: AMANDA SANCHEZ, [...] Pressure 128/72 Intake Visit Reasons: 6 M Community Relations Liaison Required: No Accompanied by: none Is patient [...] AND Plan 1. Paroxysmal atrial fibrillation I48.0 LUBA Abraham Echocardiogram from September 2015 showed estimated ejection [...] prior to saving. 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) Coding Level of Care Code Off vis,est,level [...] 07/08/17 1253 <Electronically signed by Germán Dave PRODUCT/INDUSTRY CONSULTANT-C> Date Germán Dave PRODUCT/INDUSTRY CONSULTANT-C 07/08/17 1627<Electronically signed by Andrew Keane MD> Cosigner Signature: Date (if applicable) Andrew Keane MD CC: Matthew Wallace DO 12 LEAD EKG PERFORMED Observed: 07/08/2017 Status: F Source: [place] [facility] 11:[address] [address] 12 Lead EKG performed by [facility] 07/08/17 1049 MR#: [id number] Acct: [id number] Name: AMANDA SANCHEZ Rep #: [id number] : 1955 62 From: Germán Dave PRODUCT/INDUSTRY CONSULTANT-C Attending Dr: Germán Dave PRODUCT/INDUSTRY CONSULTANT Status: DEP AMB Ordering Dr: Germán Dave PRODUCT/INDUSTRY CONSULTANTInduC Date: 07/08/17 Location: [facility] Sex: F C Admitted: [facility]/12 Lead EKG performed by [facility] ECG Report Interpretation Sinus Rhythm -Incomplete left bundle branch block. ABNORMAL Electronically signed on 07/10/2017 at 17:05 by Andrew Keane 07/10/17 1710 Date Germán Dave PRODUCT/INDUSTRY CONSULTANT-C CC: Matthew Wallace DO Date Dictated: 07/08/171048 Date Transcribed: 07/08/171048 Examining Officer: JOSE LUIS Signed LIVER PROFILE Collected: 07/07/2017 Status: F Source: [place] 11:15 AM [facility] REPOSITORY TYPE CODE TESTS RESULT OUT [...] BILI 0.08 Performed By: #### L500.3400 #### [facility] [address] [place], [address] CBC W/DIFF, AUTOMATED Collected: 07/07/2017 Status: F Source: [place] 11:15 AM [facility] REPOSITORY TYPE CODE TESTS RESULT OUT [...] 1+ ANISO. Performed By: #### L100.0100 #### [facility] [place], [address] LIVER PROFILE Collected: 06/09/2017 Status: F Source: [place] 3:39 PM [facility] REPOSITORY TYPE CODE TESTS RESULT OUT [...] BILI 0.09 Performed By: #### L500.3400 #### [facility] [address] [place], [address] CBC W/DIFF, AUTOMATED Collected: 06/09/2017 Status: F Source: [place] 3:39 PM [facility] REPOSITORY TYPE CODE TESTS RESULT OUT [...] 2+ ANISOCYTOSIS Performed By: #### L100.0100 #### [facility] [address] [place], [place], [address] CBC-COMPLETE BLOOD CNT Collected: 05/21/2017 Status: F Source: [place] NO DIFF 10:56 AM [facility] REPOSITORY Order Comment: SEND COPY OF [...] 10.9 Performed By: #### L100.0500, L101.9900 #### [facility] [address] [place], [place], [address] ERYTHROCYTE SED RATE Collected: 05/21/2017 Status: F Source: [place] 10:56 AM [facility] REPOSITORY Order Comment: SEND COPY OF RESULTS TO ALSO. TYPE CODE TESTS RESULT OUT OF RANGE REFERENCE UNITS LAB L102.0000 0-30 mm/hr Normal SED RATE 26 Performed By: #### L100.0500, L101.9900 #### [facility] [address] [place], [place], [address] COMPREHENSIVE METABOLIC Collected: 05/21/2017 Status: F Source: [place] PROFIL 10:56 AM [facility] REPOSITORY Order Comment: SEND COPY OF [...] 6 Performed By: #### L500.4050, L501.6710 #### [facility] [address] [place], [address] CRP Collected: 05/21/2017 Status: F Source: [place] 10:56 AM [facility] REPOSITORY Order Comment: SEND COPY OF [...] ordered. Performed By: #### L500.4050, L501.6710 #### [facility] [address] [place], [address] MISCELLANEOUS LAB Collected: 05/21/2017 Status: F Source: [place] PROCEDURE 10:56 AM [facility] REPOSITORY Order Comment: Comments: WB EDTA TUBE Test(s) Ordered: PROMETHEUS TPMT ENZYME TYPE CODE TESTS RESULT OUT OF RANGE REFERENCE UNITS LAB L801.1541 Normal [facility] Result Comment: Scanned image report available in EMR Performed By: #### L801.1541 #### [facility] [address] [place], [address] ALLERGIES ALLERGIES DATE TYPE / CODE NAME / CODE REACTION SEVERITY SOURCE 02/19/2018 Drug hydrocodone/ gi upset [facility] Allergy/4160 [id number]( Hospital [facility](SNOMED XNORM) Repository CT) 02/19/2018 Drug propoxyphene gi upset [facility] Allergy/4160 /[id number]( Hospital [facility](SNOMED RXNORM) Repository CT) 02/19/2018 Drug acetaminophe gi upset [facility] Allergy/4160 n/[id number] Hospital [facility](SNOMED (RXNORM) Repository CT) 02/19/2018 Drug cortisone/F0 Unknown [facility] Allergy/4160 [id number](RXN Hospital [address](SNOMED ORM) Repository CT) ENCOUNTERS ENCOUNTERS ADMIT/DISCHARGE ACCOUNT ADMITTING ENCOUNTER LOCATION SOURCE NUMBER CLASS 04/01/2018 [id number] [facility] [place] [facility] Repository 03/05/2018 [id number] [facility] [place] [facility] Repository 02/19/2018 [id number] [facility] [place] [place] [facility]:RAD Repository 02/19/2018/ [id number] Ambulatory BMSBuilding:B [place] 8 5 [facility] Hospital Repository 02/12/2018/ [id number] Ambulatory BMSBuilding:B [place] 8 5 [facility] Hospital Repository 02/09/2018/ [id number] Ambulatory [place] 8 8 [facility] ing:MTLAB Repository 02/03/2018 [id number] Ambulatory [place] 8 [facility] ing:MRI Repository 01/25/2018/ [id number] Emergency [place] 8 4 [facility]:ED Repository 01/15/2018 [id number] Ambulatory [place] 2 [facility] ing:MTLAB Repository 12/22/2017 [id number] Ambulatory [place] 6 [facility] ing:MTLAB Repository 11/06/2017 [id number] Ambulatory [place] [facility] ing:BFHLAB Repository 10/17/2017 [id number] Ambulatory [place] 7 [facility] ing:MTLAB Repository 09/15/2017 [id number] Ambulatory [place] 3 [facility] ing:MTLAB Repository 08/12/2017 [id number] Ambulatory [place] 3 [facility] ing:WOBLAB Repository 07/28/2017 [id number] Ambulatory [place] 3 [facility] ing:OPBI Repository 07/08/2017/ [id number] Ambulatory BMSBuilding:B [place] 8 5 [facility] Hospital Repository 07/07/2017 [id number] Ambulatory [place] 4 [facility] ing:MTLAB Repository 07/02/2017 [id number] Ambulatory BMS [place] 5 [facility] Hospital Repository 06/09/2017 [id number] Ambulatory [place] 9 [facility] ing:LAB.FUTUR Repository E 05/21/2017 [id number] Ambulatory [place] 1 [facility] ing:MTLAB Repository PAYERS PAYERS ENCOUNTER GUARANTOR PAYER SUBSCRIBER SOURCE 04/01/2018 AMANDA Yuen Primary AMANDA J [place] [id number] Insurance:MEDICAL JUSTICEDOB: [facility] [id number] [place] [address] Number: Repository [id number]: ([phone]) [id number] [phone] (HP) Date:6255-84-84VK [address] [address]SK: 04/01/2018 Secondary ISADORA L [place] Insurance:MED MUT JUSTICEDOB: [facility] [id number] Hospital Number: Repository [id number] Date:5578-19-97LL [address] [address]IX: 04/01/2018 Tertiary NOT GIVENUNK [place] Insurance:SELF PAY [facility] Hospital Number: Effective Repository Date:2018-03-09 03/05/2018 ISADORA L Primary AMANDA J [place] [id number] Insurance:MEDICAL JUSTICEDOB: [address] Number: Repository [id number]: [id number] [phone] (HP) Date:2431-94-02LU [address] [address]JG: 03/05/2018 Secondary ISADORA L [place] Insurance:MED MUT JUSTICEDOB: [facility] [id number] Hospital Number: Repository [id number] Date:2730-42-42SM [address] [address]PL: 03/05/2018 Tertiary NOT GIVENUNK [place] Insurance:SELF PAY [facility] Hospital Number: Effective Repository Date:2018-02-23 02/19/2018 ISADORA L Primary AMANDA J [place] [id number] Insurance:MEDICAL JUSTICEDOB: [facility] [id number] Number: Repository [id number]: (063) [id number] [phone]) Date:6245-35-19SN [address] [place] [address]BX: 02/19/2018 Secondary IASDORA L [place] Insurance:MED MUT JUSTICEDOB: [facility] [id number] Hospital Number: Repository [id number] Date:7549-15-58GE [address] [address]LY: 02/19/2018 Tertiary NOT GIVENUNK [place] Insurance:SELF PAY [facility] Hospital Number: Effective Repository Date:2018-02-19 02/19/2018 ISADORA L Primary AMANDA J [place] [id number] Insurance:MEDICAL JUSTICEDOB: [facility] [id number] Number: Repository [id number]: [phone] [id number] [phone]) Date:0142-00-90LF [address] [address]IS: 02/19/2018 Secondary ISADORA L [place] Insurance:MED MUT JUSTICEDOB: [facility] [id number] Hospital Number: Repository [id number] Date:2650-67-63AR [address] [address]YY: 02/19/2018 Tertiary NOT GIVENUNK [place] Insurance:SELF PAY [facility] Hospital Number: Effective Repository Date:2018-02-16 02/12/2018 ISADORA L Primary AMANDA J [place] [id number] Insurance:MEDICAL JUSTICEDOB: [facility] 2038-94-66CFDSan [place] Number: Repository [id number]: ([phone]) [id number] [phone] (HP) Date:0081-37-05TZ [address] [address]MJ: 02/12/2018 Secondary ISADORA L Robin Insurance:MED MUT JUSTICEDOB: [facility] [id number] Hospital Number: Repository [id number] Date:0978-49-46MP [address] [address]YZ: 02/12/2018 Tertiary NOT GIVENUNK [place] Insurance:SELF PAY [facility] Hospital Number: Effective Repository Date:2018-02-12 02/09/2018 ISADORA L Primary AMANDA J [place] [id number] Insurance:MEDICAL JUSTICEDOB: [facility] [id number] Number: Repository [address]Vfw: ([phone]) [id number] [phone] (HP) Date:9329-83-76ZK [address] [address]TS: 02/09/2018 Secondary ISADORA L [place] Insurance:MED MUT JUSTICEDOB: [facility] [id number] Hospital Number: Repository [id number] Date:9795-81-94QJ [address] [address]KJ: 02/09/2018 Tertiary NOT GIVENUNK [place] Insurance:SELF PAY [facility] Number: Effective Repository Date:2018-02-09 02/03/2018 ISADORA L Primary AMANDA J [place] [id number] Insurance:MEDICAL JUSTICEDOB: [facility] [id number] [place] Number: Repository [id number]: [phone] [id number] [phone] (HP) Date:1181-46-19KT [address] [address]JA: 02/03/2018 Secondary ISADORA L [place] Insurance:MED MUT JUSTICEDOB: [facility] [id number] Hospital Number: Repository [id number] Date:6175-24-47TW [address] [address]GG: 02/03/2018 Tertiary NOT GIVENUNK [place] Insurance:SELF PAY [facility] Hospital Number: Effective Repository Date:2018-01-26 01/25/2018 ISADORA L Primary AMANDA J [place] [id number] Insurance:MEDICAL JUSTICEDOB: [facility] 6219-89-26HDYSan [place] Number: Repository [id number]: (350) [id number] [phone] (HP) Date:5146-60-38SC [address] [place] [address]JW: 01/25/2018 Secondary ISADORA L [place] Insurance:MED MUT JUSTICEDOB: [facility] [id number] Hospital Number: Repository [id number] Date:4738-32-95GE [address] [address]DK: 01/25/2018 Tertiary NOT GIVENUNK [place] Insurance:SELF PAY [facility] Hospital Number: Effective Repository Date:2018-01-25 01/15/2018 ISADORA L Primary AMANDA J [place] [id number] Insurance:MEDICAL JUSTICEDOB: [facility] [id number] Number: Repository [id number]: ([phone]) [id number] [phone] (HP) Date:7175-67-13TE [address] [address]PO: 01/15/2018 Secondary ISADORA L [place] Insurance:MED MUT JUSTICEDOB: [facility] [id number] Hospital Number: Repository [id number] Date:0845-91-16VV [address] [address]EH: 01/15/2018 Tertiary NOT GIVENUNK [place] Insurance:SELF PAY [facility] Hospital Number: Effective Repository Date:2018-01-15 12/22/2017 ISADORA L Primary AMANDA J [place] [id number] Insurance:MEDICAL JUSTICEDOB: [facility] 8558-54-98TZRSan [place] Number: Repository [address]Hxp: ([phone]) [id number] [phone]) Date:1350-48-58IH [address] [address]ZG: 12/22/2017 Secondary ISADORA L [place] Insurance:MED MUT JUSTICEDOB: [facility] [id number] Hospital Number: Repository [id number] Date:4615-78-36ND [address] [address]RY: 12/22/2017 Tertiary NOT GIVENUNK [place] Insurance:SELF PAY [facility] Hospital Number: Effective Repository Date:2017-12-22 11/06/2017 ISADORA L Primary AMANDA J [place] [id number] Insurance:MEDICAL JUSTICEDOB: [facility] [id number] [place] Number: Repository [id number]: 234 [id number] [phone] (HP) Date:7183-31-27TY [address] [address]MH: 11/06/2017 Secondary ISADORA L Robin Insurance:MED MUT JUSTICEDOB: [facility] [id number] Hospital Number: Repository [id number] Date:3397-10-22JC [address] [address]SD: 11/06/2017 Tertiary NOT GIVENUNK [place] Insurance:SELF PAY [facility] Hospital Number: Effective Repository Date:2017-11-06 10/17/2017 ISADORA L Primary AMANDA J [place] [id number] Insurance:MEDICAL JUSTICEDOB: [facility] [id number] [place] Number: Repository [address]Ggb: (117) [id number] [phone]) Date:7962-84-69KZ [address] [address]BL: 10/17/2017 Secondary ISADORA L [place] Insurance:MED MUT JUSTICEDOB: [facility] [id number] Hospital Number: Repository [id number] Date:7715-12-59BL [address] [place] [address]CU: 10/17/2017 Tertiary NOT GIVENUNK [place] Insurance:SELF PAY [facility] Number: Effective Repository Date:2017-10-17 09/15/2017 Isadora L Primary AMANDA J [place] [id number] Insurance:MEDICAL JUSTICEDOB: [facility] [id number] [place] Number: Repository [address]Tqo: 234 [id number] [phone] (HP) Date:8556-97-47YW [address] [address]GR: 09/15/2017 Secondary Isadora L [place] Insurance:MED MUT JusticeDOB: [facility] [id number] Hospital Number: Repository [id number] Date:0960-43-22PK [address] [address]FM: 09/15/2017 Tertiary NOT GIVENUNK [place] Insurance:SELF PAY [facility] Hospital Number: Effective Repository Date:2017-09-15 08/12/2017 Isadora L Primary AMANDA J [place] [id number] Insurance:MEDICAL JUSTICEDOB: [facility] 0332-87-28CAWSan [place] Number: Repository [id number]: 234 [id number] [phone] (HP) Date:9932-12-76PT [address] [place] [address]VU: 08/12/2017 Secondary Isadora L [place] Insurance:MED MUT JusticeDOB: [facility] [id number] Hospital Number: Repository [id number] Date:5709-92-86XH [address] [address]IX: 08/12/2017 Tertiary NOT GIVENUNK [place] Insurance:SELF PAY [facility] Number: Effective Repository Date:2017-08-12 07/28/2017 Isadora L Primary AMANDA J [place] [id number] Insurance:MEDICAL JUSTICEDOB: [facility] 8134-86-93ESOSan [place] Number: Repository [id number]: (494) [id number] [phone] (HP) Date:2638-12-57SQ [address] [address]FN: 07/28/2017 Secondary Isadora L [place] Insurance:MED MUT JusticeDOB: [facility] [id number] Hospital Number: Repository [id number] Date:3293-09-07QE [address] [address]EA: 07/28/2017 Tertiary NOT GIVENUNK [place] Insurance:SELF PAY [facility] Hospital Number: Effective Repository Date:2017-07-01 07/08/2017 Isadora L Primary AMANDA J [place] [id number] Insurance:MEDICAL JUSTICEDOB: [facility] [id number] [place] Number: Repository [address]Kue: (366) [id number] [phone] (HP) Date:5971-23-35HM [address] [address]AO: 07/08/2017 Secondary Isadora L [place] Insurance:MED MUT JusticeDOB: [facility] [id number] Hospital Number: Repository [id number] Date:2317-28-34PK [address] [address]PV: 07/08/2017 Tertiary NOT GIVENUNK [place] Insurance:SELF PAY [facility] Number: Effective Repository Date:2017-02-20 07/07/2017 Isadora L Primary AMANDA J [place] [id number] Insurance:MEDICAL JUSTICEDOB: [facility] 2498-77-62LCSSan [place] Number: Repository [id number]: ([phone]) [id number] [phone] (HP) Date:7374-18-84LZ [address] [place] [address]WI: 07/07/2017 Secondary Isadora L [place] Insurance:MED MUT JusticeDOB: [facility] [id number] Hospital Number: Repository [id number] Date:9541-65-39QL [address] [place] [address]KQ: 07/07/2017 Tertiary NOT GIVENUNK [place] Insurance:SELF PAY [facility] Hospital Number: Effective Repository Date:2017-07-07 07/02/2017 Isadora L Primary AMANDA J [place] [id number] Insurance:MEDICAL JUSTICEDOB: [facility] [id number] [place] Number: Repository [address]Pzj: 234 [id number] [phone] (HP) Date:1111-83-14UC [address] [address]BX: 07/02/2017 Secondary Isadora L [place] Insurance:MED MUT JusticeDOB: [facility] [id number] Hospital Number: Repository [id number] Date:9772-02-97HS [address] [address]OY: 07/02/2017 Tertiary NOT GIVENUNK [place] Insurance:SELF PAY [facility] Hospital Number: Effective Repository Date:2017-07-02 06/09/2017 Isadora L Primary AMANDA J [place] [id number] Insurance:MEDICAL JUSTICEDOB: [facility] [id number] [place] Number: Repository [address]Xkj: ([phone]) [id number] [phone] (HP) Date:3265-38-18BX [address] [address]HC: 06/09/2017 Secondary Isadora L [place] Insurance:MED MUT JusticeDOB: [facility] [id number] Hospital Number: Repository [id number] Date:3399-27-43UF[address] [address]IQ: 06/09/2017 Tertiary NOT GIVENUNK [place] Insurance:SELF PAY [facility] Number: Effective Repository Date:2017-05-27 05/21/2017 Isadora Wilks Primary AMANDA J [place] [id number] Insurance:MEDICAL JUSTICEDOB: [facility] [id number] [place], [place] Number: Repository [address]Eor: (110) [id number] [phone] Date:4932-88-94SE[address] [address]PO: 05/21/2017 Secondary Isadora Kelly Insurance:MED MUT JusticeDOB: [facility] [id number] Hospital Number: Repository [id number] Date:0945-96-38RO[address] [address]OV: 05/21/2017 Tertiary NOT GIVENUNK [place] Insurance:SELF PAY [facility] Hospital Number: Effective Repository Date:2017-05-21
== END 2018-04-01 12:00 | disposition home or self-care (01) ==
LOC: MTLAB 10:48
PROVIDERS: Family Provider Family Medicine; PCP Family Medicine; Referring Provider Internal Medicine Gastroenterology; Visit Provider Internal Medicine Gastroenterology
DX: K50.90 Crohn's disease, unspecified, without complications (principal)
CPT/HCPCS: 36415; 85025

== ENCOUNTER 2018-04-09 07:20 | Observation (INO) | payer OTHER, SELFPAY ==
[2018-03-05 09:00] VITALS: BMI 34.4
[2018-04-09] VITALS (12 sets, daily range): BP systolic 129–152; BP diastolic 57–81; PULSE 67–84; RESP 16–20; TEMP 36.6–37.3; O2SAT 91–100; BMI 34.9; BMI 34.2
--- NOTE | 2018-04-09 07:43 | EKG12_ITS ---
Test Reason : UPPER EXTREMITYPAIN Blood Pressure : / mmHG Vent. Rate : 083 BPM Atrial Rate : 083 BPM P-R Int : 166 ms QRS Dur : 092 ms QT Int : 390 ms P-R-T Axes : 031 009 002 degrees QTc Int : 458 ms Normal sinus rhythm Nonspecific ST abnormality Abnormal ECG Confirmed by SIMEON RICK, JULEE ([id number]), book or script editor VERONICA CHAMBERS ([id number]) on 04/14/2018 8:34:47 AM Referred By: MARIAH Confirmed By:JULEE HENDRIX MD
--- NOTE | 2018-04-09 07:43 | CT_ITS ---
STUDY: CTA CHEST REASON FOR EXAM: Female, 62 years old. Left shoulder pain. Vomiting. RADIATION DOSAGE (If Supplied By Facility): CTDIvol = ( 17.9 ) mGy, DLP = ( 618.79 ) mGycm TECHNIQUE: The examination was performed with the intravenous administration of 100 ml of Isovue 370 contrast material. Post-processing of the angiographic images was performed, with multiplanar reformation and 3D reconstruction. Individualized dose optimization techniques were used for this CT. COMPARISON: None. FINDINGS: Small nonocclusive intraluminal filling defects in branches of the left lower lobe pulmonary artery. Normal thoracic aorta and visualized great vessels. There is no demonstrated aortic dissection. Normal heart and pericardium. Normal mediastinum. There are calcified left hilar lymph nodes. Normal visualized trachea and bronchi. The lungs are well expanded. Mild increased linear markings at the bases suggestive scarring. Calcified granuloma in the left lower lobe. Normal pleura. Normal chest wall structures. There are degenerative changes of thoracic spine. Scattered calcified splenic granulomas. CT/CTA Chest W/WO Contrast IMPRESSION: Nonocclusive intraluminal filling defects in branches of the left lower lobe pulmonary artery. Mild pulmonary embolism. Linear scarring at the lung bases. Electronically Signed: Bob Oro MD at 9:33 EST , Service support ,
[2018-04-09 08:27] LABS: Absolute Lymphocyte Count 0.47 X10^3/ul (0.83-4.51); Basophil# 0.05 X10^3/uL; Basophil% 1.2 % (0-1); Differential Indicated SCAN CRITERIA MET; Eosinophil# 0.14 X10^3/uL; Eosinophils% 3.4 % (0-5); Hematocrit 35.9 % (37-47); Hemoglobin 10.8 g/dl (12.0-15.0); Lymphocyte # 0.47 X10^3/ul (4.0); Lymphocyte % 11.5 % (19-41); Mean Corp Hgb Conc 30.1 g/gl (32-36); Mean Corpuscular Hgb 24.5 pg (27.0-32.0); Mean Corpuscular Volume 81.6 fL (81-99); Mean Platelet Vol. 11.2 fl (6.2-12.0); Monocyte# 0.39 X10^3/uL; Monocyte% 9.5 % (0-10); Neutrophil # 3.04 X10^3/uL (2.7-7.7); Neutrophil % 74.2 % (47-70); POSITIVE COUNT NO; POSITIVE DIFFERENTIAL YES; POSITIVE MORPHOLOGY NO; Platelet Count 164 K/mm3 (150-450); RBC Distribution Width CV 14.1 % (11.6-14.6); RBC Distribution Width SD 42.4 fl (35.1-43.9); White Blood Count 4.1 K/mm3 (4.4-11.0)
[2018-04-09] MEDS: 0.9% Normal Saline 1,000 ML 1000 ML IV (08:28)
[2018-04-09] MEDS: fentaNYL 100 MCG/2 ML Ampul 50 MCG IV (08:29)
[2018-04-09] MEDS: Ondansetron 4 MG/2 ML Vial IV (08:29)
--- NOTE | 2018-04-09 08:39 | ED.RN ---
PT GIVEN FENTANYL PER ORDER FOR SHOULDER PAIN AND SPO2 DROPPED TO 80% ON RA. HOB UP AND O2 ON AT 2L AND SPO2 AT 91%.
[2018-04-09 08:42] LABS: ALB/GLOB Ratio 0.9 RATIO (0.9-2.4); AST(SGOT) 23 U/L (15-37); Alanine Aminotransfer ALT/SGPT 21 U/L (13-56); Albumin, Serum 3.1 g/dL (3.2-5.0); Alkaline Phosphatase 34 U/L (45-117); Anion Gap 5 (5-15); BUN 9 mg/dL (7-18); BUN/Creat Ratio 13.5 RATIO (10-20); Calcium,Total 8.2 mg/dL (8.5-10.1); Chloride 108 mmol/L (98-107); Creatinine, Serum 0.67 mg/dL (0.55-1.02); EST Glomerular Filtration Rate 95 mL/min (>60); Est Glom Filt Rate - Afr Amer 115 mL/min (>60); Estimated Creatinine Clearance 94.14 ml/min; Globulin 3.4 g/dL (2.2-4.2); Glucose 106 mg/dL (74-106); Lipase 174 U/L (73-393); Potassium 4.1 mmol/L (3.5-5.1); Protein, Total 6.5 g/dL (6.4-8.2); Sodium Level 139 mmol/L (136-145)
[2018-04-09 08:44] LABS: Hypochromasia RARE; Platelet Estimate ADEQUATE (ADEQ)
--- NOTE | 2018-04-09 10:09 | PCM.HP.STD ---
Problem List (1) Acute pulmonary embolism Status: Acute Qualifiers: Pulmonary embolism type: unspecified Acute cor pulmonale presence: without acute cor pulmonale Qualified Code(s): I26.99 - Other pulmonary embolism without acute cor pulmonale (2) History Thyroid Goiter Status: Chronic (3) Anxiety and depression Status: Chronic (4) Crohn disease Status: Chronic Qualifiers: Gastrointestinal tract location: unspecified location Digestive disease complication type: unspecified complication Qualified Code(s): K50.919 - Crohn's disease, unspecified, with unspecified complications (5) History of meningioma of the brain Status: Chronic (6) Hx of craniotomy Status: Chronic Comment: for meningioma (7) Hyperlipidemia Status: Chronic Qualifiers: Hyperlipidemia type: pure hypercholesterolemia Qualified Code(s): E78.00 - Pure hypercholesterolemia, unspecified; E78.0 - Pure hypercholesterolemia (8) Paroxysmal atrial fibrillation Status: Chronic History of Present Illness Date of Admission: 04/09/18 Chief Complaint: Shoulder pain, dyspnea, extremity paresthesias The patient is a 62 y/o F w/ PMHx: Crohn's Disease following w/ Dr. Brody, HLD, Obesity, Anxiety and Depression, PAF, History of Meningioma s/p craniotomy 2010, History of Thyroid Goiter s/p resection, RLS who presents to the [facility] ED on 04/09/18 with history of of sudden onset of BL shoulder to shoulder severe pain, 10/10 with associated mild dyspnea in addition to BL UE paresthesias, awakening her at 7 am, unrelenting prompting transition to the ED for evaluation. In the ED following treatment with pain regimen patient pain resolved upon evaluation. She noted additionally felling nauseated secondary to the severity of the pain with emesis x 1 and upon attempted walking, lightheaded and dizziness but this improved. She denied any chest pain specifically and noted the discomfort was primarily between her shoulders. In the ED work-up included T 99.1, heart rate 84, BP 152/81, respiratory rate 20, 98% on room air initially, BC with W BC 4.1, hemoglobin 10.8, platelet 164 with mild shift, CMP not marked appearing, troponin < 0.015, EKG without acute evidence of ischemia, CTPA w/ nonocclusive intraluminal filling defects in the branch of the left lower lobe pulmonary artery with mild pulmonary embolism with linear scarring at the lung bases bilaterally. Discussed patient presentation and history with ED physician and noted remarkable maternal family history of frequent clotting, unclear specific etiology with no recent patient travel, surgery, immobility therefore decision to obtain hypercoagulable panel prior to initiation of heparin drip. Past Medical History Past Medical History (Chronic Problems): Chronic Problems (Last Reviewed 02/19/18 @ 08:22 by Glo Meehan) History Thyroid Goiter (Chronic) Anxiety and depression (Chronic) Crohn disease (Chronic) History of meningioma of the brain (Chronic) Hypertension (Chronic) Palpitations (Chronic) Hx of craniotomy (Chronic) for meningioma Hyperlipidemia (Chronic) Paroxysmal atrial fibrillation (Chronic) Medical History: Medical History (Last Reviewed 02/19/18 @ 08:22 by Glo Meehan) Hypertension (Chronic) I10 Palpitations (Chronic) R00.2 Hyperlipidemia (Chronic) E78.5 Paroxysmal atrial fibrillation (Chronic) I48.0 Shortness of breath R06.02 Allergies prednisone Allergy (Verified 04/09/18 07:25) Itching acetaminophen [From Darvocet-N] Adverse Reaction (Severe, Verified 02/19/18 08:21) GI upset hydrocodone [From Vicodin] Adverse Reaction (Severe, Verified 02/19/18 08:21) GI upset propoxyphene [From Darvocet-N] Adverse Reaction (Severe, Verified 02/19/18 08:21) GI upset cortisone Adverse Reaction (Intermediate, Verified 02/19/18 08:21) Unknown Home Medications: Ambulatory Orders Medication Instructions Recorded aspirin 81 mg tablet,delayed 81 mg PO QDAY 07/02/17 release oxycodone-acetaminophen 5 mg-325 1 tab PO .Q4-6H PRN tab 07/02/17 mg tablet azathioprine 50 mg tablet 150 mg PO QDAY tab 07/08/17 Cranberry Fruit 1 cap PO BID 01/25/18 Cyanocobalamin (Vitamin B-12) 1,500 mcg PO QHS 01/25/18 [Vitamin B-12] Fluoxetine [Prozac] 40 mg PO DAILY 04/09/18 Sotalol Hydrochloride [Betapace 80 mg PO BID 04/09/18 (Beta Migue)] Ustekinumab [Stelara] 90 mg SQ Q60D 04/09/18 Surgical History: Surgical History (Last Reviewed 02/19/18 @ 08:22 by Glo Meehan) Hx of craniotomy (Resolved) Z98.890 for meningioma thyroid lobectomy (Resolved) Surgical History: - - Tonsillectomy, cholecystectomy, craniotomy for meningioma, partial thyroid resection for thyroid goiter. Psychiatric History: Anxiety, Depression VENEREAL DISEASE CONTROL HEAD History: No pertinent VENEREAL DISEASE CONTROL HEAD history Lives: Spouse/ Significant Other Smoking Status: Former smoker - 1/2-1 ppd x 20 year history, quit cigarette tobacco use 2004 Tobacco Use: Non-smoker Alcohol: None Drugs: None - *Family History Maternal Family History: Family History (Last Reviewed 02/19/18 @ 08:22 by Glo Meehan) Mother CAD (coronary artery disease) Myocardial infarction Father Hypertension Brother CAD (coronary artery disease) History Items: - - Patient with a maternal family history of hypertension, diabetes, coronary disease status post OR, history of multiple sclerosis in addition to history of frequent VTE. Paternal Family History: Family History (Last Reviewed 02/19/18 @ 08:22 by Glo Meehan) Mother CAD (coronary artery disease) Myocardial infarction Father Hypertension Brother CAD (coronary artery disease) History Items: Hypertension Review of Systems Constitutional: Reports: Malaise, Weakness, Fatigue. Denies: Chills, Fever, Weight Change HEENT: Denies: Head Aches, Sinus Congestion, Sinus Drainage Cardiovascular: Reports: - - Pain between BL shoulders.. Denies: Chest Pain, Palpitations Respiratory: Reports: Shortness of Breath. Denies: Cough, Shortness of breath at rest, Sputum production Gastrointestinal: Reports: Nausea, Vomiting. Denies: Abdominal Pain Genitourinary: Denies: Dysuria Musculoskeletal: Reports: Back Pain, Joint Pain, Shoulder Pain. Denies: Joint Tenderness Skin: Denies: Rash, Wounds Neurological: Denies: Numbness, Tingling, Focal weakness Psychiatric: Reports: Anxiety, Depression. Denies: Homicidal Ideations, Suicidal Ideations Hematologic/ Lymphatic: Denies: Easy Bruising, Easy Bleeding VTE Information - Inpt Only VTE Present on Admission: No VTE Mechan Device Prophylaxis: SCD's VTE Pharm Prophylaxis ordered?: Yes Patient Problems: Active and Suspected Problems (Last Reviewed 02/19/18 @ 08:22 by Glo Meehan) Acute pulmonary embolism (Acute) Subjective: Seated upright in the bed, no acute distress, notes currently no discomfort between her shoulder blades and resolution of prior noted paresthesias and mild dyspnea. Objective: Physical Examination: General: awake, alert, oriented x 3 and cooperative, seated upright in the PCU bed in no apparent distress. Skin: normal color, turgor, no icterus, cyanosis. HEENT: AT/NC, EOMI, PERRLA, MMM, no carotid bruits or JVD noted. Lungs: CTA bilaterally, moderate effort, mild decrease BL bases, no rales, ronchi or wheezing. Heart: Regular rate and rhythm; no gallop, rub audible. Abdomen: soft, obese, NTTP, ND, normal BS, no HSM. Extremities: no cyanosis, clubbing, or edema, no market tenderness to palpations of bilateral lower extremities. Neurological: patient awake, alert, oriented x 3; cognitive function intact; pupils equally reactive to light and accomodation; cranial nerves II-XII grossly normal, moving all 4 extremities, no focal deficits, strength mildly globally decreased secondary to acute presentation. Psychiatric: affect appears normal, no acute evidence of depressive or anxiety feelings. - Physical Exam Vital Signs Temp Pulse Resp BP Pulse Ox 99.1 F 84 17 138/64 H 97 04/09/18 07:20 04/09/18 09:16 04/09/18 09:16 04/09/18 09:16 04/09/18 09:16 Oxygen Flow Rate (L/min) 2 Oxygen Delivery Method Nasal Cannula Weight: 243 lb 6.245 oz Body Mass Index (BMI) 34.9 Laboratory Tests Past 24 Hrs 04/09/18 04/09/18 08:20 08:20 WBC 4.1 L RBC 4.40 Hgb 10.8 L Hct 35.9 L MCV 81.6 MCH 24.5 L MCHC 30.1 L RDW 14.1 RDW Differential 42.4 Plt Count 164 MPV 11.2 Immature Gran % (Auto) 0.200 Neut % (Auto) 74.2 H Lymph % (Auto) 11.5 L [place] % (Auto) 9.5 Eos % (Auto) 3.4 Baso % (Auto) 1.2 H Absolute Neuts (auto) 3.0 Absolute Lymphs (auto) 0.47 L Total Counted Not Reportable Platelet Estimate ADEQUATE Hypochromasia RARE Sodium 139 Potassium 4.1 Chloride 108 H Carbon Dioxide 26.0 Anion Gap 5 BUN 9 Creatinine 0.67 Estim Creat Clear Calc 94.14 Est GFR (MDRD) Af Amer 115 Est GFR (MDRD) Non-Af 95 BUN/Creatinine Ratio 13.5 Glucose 106 Calcium 8.2 L Total Bilirubin 0.60 AST 23 ALT 21 Alkaline Phosphatase 34 L Troponin I < 0.015 Total Protein 6.5 Albumin 3.1 L Globulin 3.4 Albumin/Globulin Ratio 0.9 Lipase 174 Assessment/Plan All Active Problems (Last Reviewed 02/19/18 @ 08:22 by Glo Meehan) Acute pulmonary embolism (Acute) thyroid lobectomy (Resolved) The patient is a 62 y/o F w/ PMHx: Crohn's Disease following w/ Dr. Brody, HLD, Obesity, Anxiety and Depression, PAF, History of Meningioma s/p craniotomy 2010, History of Thyroid Goiter s/p resection, RLS who presents to the [facility] ED on 04/09/18 with history of of sudden onset of BL shoulder to shoulder severe pain, 12/17 with associated mild dyspnea in addition to BL UE paresthesias, awakening her at 7 am, unrelenting prompting transition to the ED for evaluation. In the ED following treatment with pain regimen patient pain resolved upon evaluation. (1) Dyspnea, BL Shoulder pain, BL UE Paresthesias secondary to Acute Pulmonary Embolism: ED work-up included T 99.1, heart rate 84, BP 152/81, respiratory rate 20, 98% on room air initially, BC with W BC 4.1, hemoglobin 10.8, platelet 164 with mild shift, CMP not marked appearing, troponin < 0.015, EKG without acute evidence of ischemia, CTPA w/ nonocclusive intraluminal filling defects in the branch of the left lower lobe pulmonary artery with mild pulmonary embolism with linear scarring at the lung bases bilaterally. Discussed patient presentation and history with ED physician and noted remarkable maternal family history of frequent clotting, unclear specific etiology with no recent patient travel, surgery, immobility therefore decision to obtain hypercoagulable panel prior to initiation of heparin drip. Will admit to PCU, maintain on cardiac telemetry. Will obtain ECHO, BNP and BL LE DVT US. Hypercoaguable panel obtained in ED prior to administration anticoagulation heparin drip. Will continue heparin drip with pending AM insurance oral regimen investigation. (2) PAF: Maintain on home regimen sotaolol, currently on heparin drip, transition to oral anticoagulant planned as noted. (3) Crohn's Disease: Following w/ Dr. Brody, no recent flares, maintained on Stelara outpatient, continued additionally on azathioprine. (4) Anxiety and Depression: Continue home regimen prozac. (5) History of Meningioma: s/p craniotomy 2010, given timeline per discussion with ED and acute presentation initiated on anticoagulation, patient had near her surgery years prior only been placed on ASA with PAF history onset, but given timeline necessitates transition to oral anticoagulant. (6) History of Thyroid Goiter: s/p resection, was benign. (7) RLS: Start mirapex low dose. (8) GERD: Famotidine. (9) DVT Prophylaxis: SCDs pending DVT US BL LE, heparin drip continued, initiated in the ED. Pending CM/SW assist w/ oral anticoagulant cost to patient. Code Visit Inpatient E&M: 79099 Init Hosp L3
--- NOTE | 2018-04-09 10:10 | NURSING ---
DR TEJADA FOR DR LEMUS
--- NOTE | 2018-04-09 10:21 | NURSING ---
PCU PE WHITE
[2018-04-09] MEDS: HEPARIN/D5w 25,000 UNITS 25,000 UNITS/250 ML IV.SOLN. 15 UNITS IV (11:01)
[2018-04-09] MEDS: Heparin Injection (Vial) 5,000 UNIT/ML VIAL 8000 UNIT IV (11:01)
--- NOTE | 2018-04-09 11:15 | ED.VISSUMM ---
- ER Visit Summary Date of Service: 04/09/18 Chief Complaint: Pain History of Present Illness: The patient is a 62 F with bilateral shoulder pain worse on the left that started today suddenly around 7 AM. She also has tingling down her arms. This was associated with nausea, vomiting, sweats, lightheadedness, near syncope, and the need to have a bowel movement. She never had this before. She has a history of atrial fibrillation but denies any history of coronary disease. She says she had a stress test 2 or 3 years ago and it was normal. She follows with Dr. Keane. She does take aspirin but does not take any other anticoagulation. She had a craniotomy in 2010 for meningioma and she says her doctor did not want her on any other blood thinners. She denies any history of bleeding or complications from the neurosurgery. Patient denies chest pain or shortness of breath. Denies any history of PE, but her mother had a history of PE. Denies any history of aortic disease. Physical Examination: Afebrile and vital signs unremarkable. Patient is alert and oriented. No acute distress. Heart regular rate and rhythm. Lungs clear. Abdomen soft and nontender. Extremities nontender with no edema. Skin appears normal. Test Results: EKG showed sinus rhythm at a rate of 83. No sign of acute ischemia or infarction pattern. CBC showed a white count of 4.1 and hemoglobin of 10.8. Chemistry panel unremarkable. Troponin normal. CT chest showed a nonocclusive left lower lobe pulmonary embolism. Emergency Department Course and Treatment: Patient had an EKG on arrival. Placed on a monitor. I was concerned for cardiac, vascular, and pulmonary pathologies. Her workup showed a PE. Patient was discussed with the hospitalist. We cannot identify a complication to starting anticoagulation. We will start heparin. PT and PTT pending. Hypercoagulability panel is pending. Patient will be admitted for further care. Treatment Plan: As above Disposition: Admission to PCU Impression: 1. Pulmonary embolism This note was generated with Filter Squadation software. It may contain incorrect words, spelling, and punctuation that were not noted in review of the chart prior to signing ED Disposition - Plan for ED Patient: Disposition: Home or Assisted Living
--- NOTE | 2018-04-09 12:10 | ECHOCS_ITS ---
Reason For Study: Emboli Procedure This was a 2D Doppler, Color Flow transthoracic echocardiogram. Exam performed portable in patient room. Left Ventricle Normal LV size. Left ventricular systolic function is normal. The estimated ejection fraction is 60 %. Stage 1 diastolic dysfunction. No regional wall motion abnormalities noted. Right Ventricle Normal RV size. Normal systolic function. Atria Normal left atrium. Normal right atrium. Mitral Valve Normal mitral valve. Tricuspid Valve Normal tricuspid valve. Aortic Valve Trisinus/trileaflet aortic valve. Pulmonic Valve Normal pulmonic valve. Great Vessels Normal aortic root. The pulmonary artery is normal size. Normal inferior vena cava. Pericardium/Pleural No pericardial effusion. Medication Diluted definity 2ml given slow IV push to enhance endocardial definition. MMode/2D Measurements & Calculations LVIDd: 4.8 cm IVSd: 1.0 cm Ao root diam: 3.6 cm LVIDs: 2.9 cm LVPWd: 1.1 cm LA dimension: 3.6 cm RVDd: 3.9 cm FS: 38.1 % LAV(MOD-bp): 53.4 ml LA A4 area: 19.5 cm2 RA A4 area: 14.2 cm2 LAV(MOD-bp) Indexed: 23.8 ml/m2 LAV(MOD-sp2): 46.8 ml LAV(MOD-sp4): 54.4 ml Time Measurements MV dec time: 0.21 sec Doppler Measurements & Calculations MV E max kurt: 70.5 cm/sec Lat Peak E' Kurt: 11.0 cm/sec Med Peak E' Kurt: 8.3 cm/sec MV A max kurt: 84.5 cm/sec E/E' lat: 6.4 E/E' med: 8.5 MV E/A: 0.83 MV V2 max: 94.5 cm/sec MV P1/2t max kurt: 67.3 cm/sec Ao V2 max: 144.5 cm/sec MV max P.6 mmHg MV P1/2t: 94.4 msec Ao max P.3 mmHg MV V2 mean: 51.2 cm/sec MV dec slope: 208.9 cm/sec2 Ao V2 mean: 86.5 cm/sec MV mean P.2 mmHg Ao mean P.6 mmHg MV V2 VTI: 23.6 cm MVA(P1/2t): 2.3 cm2 Ao V2 VTI: 26.1 cm LV V1 max: 119.9 cm/sec PA V2 max: 114.6 cm/sec LV V1 max P.7 mmHg LV V1 mean P.7 mmHg LV V1 mean: 77.0 cm/sec LV V1 VTI: 23.3 cm Interpretation Summary Normal LV size. Left ventricular systolic function is normal. The estimated ejection fraction is 60 %. Stage 1 diastolic dysfunction. Contrast injection was performed. Ordering Physician: Adriana Mesa Referring Physician: Matthew Wallace Performed By: Te Saenz RCS
--- NOTE | 2018-04-09 12:10 | VDLE_ITS ---
Reason For Study: PE RIGHT LEFT GSV is normal. GSV is normal. CFV is compressible, spontaneous, phasic, CFV is compressible, spontaneous, phasic, competent and demonstrates normal competent, and demonstrates normal augmentation. augmentation. FV is compressible, spontaneous, phasic, FV is compressible, spontaneous, phasic, competent and demonstrates normal competent and demonstrates normal augmentation. augmentation. POP V is compressible, spontaneous, phasic, POP V is compressible, spontaneous, phasic, competent and demonstrates normal competent and demonstrates normal augmentation. augmentation. T/P Trunk is compressible. T/P Trunk is compressible. PTV is compressible. PTV is compressible. RT PerV is compressible. LT PerV is compressible. Procedure Exam performed portable in patient room. The exam was diagnostic. A preliminary report was called and/or faxed to [facility]. Interpretation Summary No evidence for acute deep venous thrombosis bilateral lower extremities with patent and compressible bilateral great saphenous veins. Ordering Physician: Adriana Mesa Performed By: Ritesh Enriquez RVDaren
[2018-04-09 12:57] LABS: Magnesium 1.9 mg/dL (1.6-2.6)
[2018-04-09 12:59] LABS: BNP,B-Type NATRIURETIC PEPTIDE 51.8 pg/mL (0-100)
[2018-04-09] MEDS: oxyCODONE 5 MG Tablet PO ×2 (13:19→21:11)
[2018-04-09] MEDS: 0.9% Normal Saline 1,000 ML 100 ML IV (13:20)
[2018-04-09] MEDS: Famotidine 20 MG Tablet PO ×2 (13:41→21:10)
[2018-04-09 14:12] LABS: Partial Thromboplast Time 141.9 Seconds (24.1-36.2)
[2018-04-09] MEDS: FLUoxetine 20 MG Capsule 40 MG PO (15:29)
[2018-04-09] MEDS: azaTHIOprine 50 MG Tablet 150 MG PO (15:30)
[2018-04-09 20:48] LABS: Partial Thromboplast Time 55.4 Seconds (24.1-36.2)
[2018-04-09] MEDS: Sotalol Hydrochloride 80 MG Tablet PO (21:10)
[2018-04-09] MEDS: Pramipexole Di-HCl 0.125 MG Tablet PO (21:11)
[2018-04-10 02:22] VITALS: BP 131/91; PULSE 71; RESP 16; TEMP 36.6; O2SAT 95
[2018-04-10 02:37] LABS: Absolute Lymphocyte Count 1.17 X10^3/ul (0.83-4.51); Absolute Neutrophil Count 2.4 X10^3/uL (2.0-7.7); Basophil# 0.05 X10^3/uL; Basophil% 1.2 % (0-1); Eosinophil# 0.15 X10^3/uL; Eosinophils% 3.5 % (0-5); Lymphocyte # 1.17 X10^3/ul (4.0); Lymphocyte % 27.3 % (19-41); Mean Corp Hgb Conc 30.3 g/gl (32-36); Mean Corpuscular Volume 82.5 fL (81-99); Mean Platelet Vol. 11.1 fl (6.2-12.0); Monocyte# 0.54 X10^3/uL; Monocyte% 12.6 % (0-10); Neutrophil # 2.36 X10^3/uL (2.7-7.7); Neutrophil % 55.2 % (47-70); POSITIVE COUNT NO; POSITIVE DIFFERENTIAL NO; POSITIVE MORPHOLOGY NO; Platelet Count 236 K/mm3 (150-450); RBC Distribution Width SD 41.7 fl (35.1-43.9); White Blood Count 4.3 K/mm3 (4.4-11.0)
[2018-04-10 02:41] LABS: Partial Thromboplast Time 61.3 Seconds (24.1-36.2)
[2018-04-10 02:55] LABS: Anion Gap 9 (5-15); BUN 9 mg/dL (7-18); BUN/Creat Ratio 16.1 RATIO (10-20); Calcium,Total 8.2 mg/dL (8.5-10.1); Chloride 108 mmol/L (98-107); Creatinine, Serum 0.56 mg/dL (0.55-1.02); EST Glomerular Filtration Rate 116 mL/min (>60); Est Glom Filt Rate - Afr Amer 141 mL/min (>60); Estimated Creatinine Clearance 112.64 ml/min; Glucose 96 mg/dL (74-106); Potassium 3.7 mmol/L (3.5-5.1); Sodium Level 143 mmol/L (136-145)
[2018-04-10 03:24] VITALS: PULSE 65
[2018-04-10] MEDS: Ondansetron 4 MG/2 ML Vial IV (05:40)
[2018-04-10] MEDS: 0.9% NaCl Peripheral Flush Adult/Peds IV (05:40)
--- NOTE | 2018-04-10 05:55 | EKG12_ITS ---
Test Reason : AM EKG Blood Pressure : / mmHG Vent. Rate : 071 BPM Atrial Rate : 071 BPM P-R Int : 178 ms QRS Dur : 094 ms QT Int : 424 ms P-R-T Axes : 038 017 013 degrees QTc Int : 460 ms Normal sinus rhythm Cannot rule out Anterior infarct , age undetermined Abnormal ECG When compared with ECG of 09-APR-2018 07:58, MANUAL COMPARISON REQUIRED, DATA IS UNCONFIRMED Confirmed by SIMEON RICK, JULEE ([id number]), art editor VERONICA CHAMBERS ([id number]) on 04/14/2018 8:59:17 AM Referred By: MALLORY Confirmed By:JULEE HENDRIX MD
--- NOTE | 2018-04-10 07:12 | DCINST_ITS ---
- Discharge Diagnoses Current Active Problems: Current Active and Chronic Problems (Last Reviewed 02/19/18 @ 08:22 by Glo Meehan) (1) Dyspnea, BL Shoulder pain, BL UE Paresthesias secondary to Acute Pulmonary Embolism (2) PAF (3) Crohn's Disease (4) Anxiety and Depression (5) History of Meningioma s/p craniotomy 2010 (6) History of Thyroid Goiter s/p resection (7) RLS (8) GERD (9) Obesity You will use the following diet at home:: Cardiac Your food should be the consistency of: Regular Your liquids should be the consistency of: Regular/Thin Discharge Activity: - - Encourage routine daily activity. No driving if still using narcotic therapy. May resume sexual activity in: No Restrictions Call your doctor if you observe: Fever of 101 or Higher, Inability to urinate, Inability to have a bowel movement, Shortness of breath, Dizziness, Fainting spells, Chest pain, Uncontrolled pain Instructions: Discharge Instructions for Pulmonary Embolism, Apixaban Oral tablet Additional Instructions: It is vital that you maintain strict adherence to your anticoagulation regimen. Pending Tests on Discharge: Hypercoagulable pending upon discharge. Please follow-up these test results with your PCP. The will take 1-2 weeks to result. Allergies/Adverse Reactions: Allergies prednisone Allergy (Verified 04/09/18 07:25) Itching acetaminophen [From Darvocet-N] Adverse Reaction (Severe, Verified 02/19/18 08:21) GI upset hydrocodone [From Vicodin] Adverse Reaction (Severe, Verified 02/19/18 08:21) GI upset propoxyphene [From Darvocet-N] Adverse Reaction (Severe, Verified 02/19/18 08:21) GI upset cortisone Adverse Reaction (Intermediate, Verified 02/19/18 08:21) Unknown Medications to take at Discharge oxycodone-acetaminophen 5 mg-325 mg tablet 1 tab PO .Q4-6H PRN tab 07/02/17 azathioprine 50 mg tablet 150 mg PO QDAY tab 07/08/17 Cranberry Fruit 1 cap PO BID 01/25/18 Cyanocobalamin (Vitamin B-12) [Vitamin B-12] 1,500 mcg PO QHS 01/25/18 Apixaban [Eliquis] 5 mg PO UD 30 Days #74 tab.ds.pk 04/09/18 Fluoxetine [Prozac] 40 mg PO DAILY 04/09/18 Sotalol Hydrochloride [Betapace (Beta Migue)] 80 mg PO BID 04/09/18 Ustekinumab [Stelara] 90 mg SQ Q60D 04/09/18 Famotidine [Pepcid] 20 mg PO BID #60 tablet 04/10/18 Ondansetron [Zofran] 8 mg PO Q8H PRN PRN #30 tablet 04/10/18 Oxycodone [Oxyir] 5 mg PO Q4H PRN PRN 4 Days #24 tablet 04/10/18 The following prescriptions were given: Oxycodone [Oxyir] 5 mg PO Q4H PRN PRN 4 Days #24 tablet PRN Reason: Moderate Pain (pain scale 4-5) Ondansetron [Zofran] 8 mg PO Q8H PRN PRN #30 tablet PRN Reason: nausea, emesis Apixaban [Eliquis] 5 mg PO UD 30 Days #74 tab.ds.pk Famotidine [Pepcid] 20 mg PO BID #60 tablet Primary Care Physician: Matthew Wallace DO [Primary Care Provider] - Please follow up with your Primary Care Physician in: Follow-up within 3-5 days to review admission. Test Results: Test results from this visit will be discussed in further detail at your follow- up appointment, if applicable. Proposed Discharge Date: 04/10/18
--- NOTE | 2018-04-10 07:12 | PCM.DC.SUM ---
Discharge Date and Diagnosis Date of Admission: 04/09/18 Date of Discharge: 04/10/18 - Primary Discharge Diagnosis Active and Suspected Problems (Last Reviewed 02/19/18 @ 08:22 by Glo Meehan) (1) Dyspnea, BL Shoulder pain, BL UE Paresthesias secondary to Acute Pulmonary Embolism (2) PAF (3) Crohn's Disease (4) Anxiety and Depression (5) History of Meningioma s/p craniotomy 2010 (6) History of Thyroid Goiter s/p resection (7) RLS (8) GERD (9) Obesity - Secondary Discharge Diagnosis Chronic Problems (Last Reviewed 02/19/18 @ 08:22 by Glo Meehan) History Thyroid Goiter (Chronic) Anxiety and depression (Chronic) Crohn disease (Chronic) History of meningioma of the brain (Chronic) Hypertension (Chronic) Palpitations (Chronic) Hx of craniotomy (Chronic) for meningioma Hyperlipidemia (Chronic) Paroxysmal atrial fibrillation (Chronic) Hospital Course and Treatment Operations: None Procedures: 2-D Echocardiogram, EKG Summary of Care Provided: The patient is a 62 y/o F w/ PMHx: Crohn's Disease following w/ Dr. Brody, HLD, Obesity, Anxiety and Depression, PAF, History of Meningioma s/p craniotomy 2010, History of Thyroid Goiter s/p resection, RLS who presented to the [facility] ED on 04/09/18 with history of of sudden onset of BL shoulder to shoulder severe pain, 10/10 with associated mild dyspnea in addition to BL UE paresthesias, awakening her at 7 am, unrelenting prompting transition to the ED for evaluation. In the ED following treatment with pain regimen patient pain resolved upon evaluation. She noted additionally felling nauseated secondary to the severity of the pain with emesis x 1 and upon attempted walking, lightheaded and dizziness but this improved. She denied any chest pain specifically and noted the discomfort was primarily between her shoulders. In the ED work-up included T 99.1, heart rate 84, BP 152/81, respiratory rate 20, 98% on room air initially, BC with W BC 4.1, hemoglobin 10.8, platelet 164 with mild shift, CMP not marked appearing, troponin < 0.015, EKG without acute evidence of ischemia, CTPA w/ nonocclusive intraluminal filling defects in the branch of the left lower lobe pulmonary artery with mild pulmonary embolism with linear scarring at the lung bases bilaterally. Discussed patient presentation and history with ED physician and noted remarkable maternal family history of frequent clotting, unclear specific etiology with no recent patient travel, surgery, immobility therefore decision to obtain hypercoagulable panel prior to initiation of heparin drip. Patient was admitted to PCU, maintained on cardiac telemetry without event, BNP obtained and was noted to be unremarkable, bilateral lower extremity DVT ultrasound was obtained with no evidence of acute DVT, obtained ECHO w/ normal LV size, normal LV systolic function, EF 60%, stage I diastolic dysfunction. Discussed patient oral anticoagulation possibilities with patient local pharmacy and they noted that Xarelto not covered however Eliquis starter pack approximately $60 however likely there would be a reduction in the following month secondary to decreased pill usage and they recommended having a 30-day free to cover the first initial month which was requested to [facility] and noted affordable to patient. 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 DAY OF DISCHARGE PROGRESS NOTE: Subjective: Patient without acute event overnight per self and nursing report. Again discussed oral anticoagulant therapy and patient notes that this will be affordable upon discharge and eager for discharge to home. Patient denies fever, chills, nausea, emesis, abdominal pain, recurrent or worsened chest pain or dyspnea. Patient will be discharged with follow-up with primary care physician within 3-5 days in addition to encouraged notification of her cardiology office to update medications as now she is on oral anticoagulant therapy. Objective: T 99, heart rate 77, BP 120/78, respiratory rate 18, 94% on RA. Physical Examination: General: awake, alert, oriented x 3 and cooperative, seated upright in the bed, NAD. Skin: normal color, turgor, no icterus, cyanosis. HEENT: AT/NC, EOMI, PERRLA, MMM. Lungs: CTA bilaterally, moderate effort, mild decrease BL bases, no rales, ronchi or wheezing; Heart: Regular rate and rhythm; no gallop, rub audible. Abdomen: soft, obese, NTTP, ND, normal BS. Extremities: no cyanosis, clubbing, or edema, NTTP. Neurological: patient awake, alert, oriented x 3; cognitive function appears intact upon questioning,; pupils equally reactive to light and accomodation; cranial nerves II-XII grossly normal, moving all 4 extremities, strength appropriate. Psychiatric: affect appears normal, no acute evidence of depressive or anxiety feelings. Assessment and Plan: Please see hospital summary above. - Physical Exam Vital Signs Temp Pulse Resp BP Pulse Ox 97.9 F 65 16 131/91 H 95 04/10/18 02:22 04/10/18 03:24 04/10/18 02:22 04/10/18 02:22 04/10/18 02:22 Oxygen Flow Rate (L/min) 2 Oxygen Delivery Method Room Air Weight: 238 lb 8.642 oz Body Mass Index (BMI) 34.2 Intake and Output for Last 24 Hours 04/08/18 04/09/18 04/10/18 23:59 23:59 23:59 Intake Total 924 / 924 1006.0 / 1006.0 Balance 924 / 924 1006.0 / 1006.0 Laboratory Tests Past 24 Hrs 04/09/18 04/09/18 04/09/18 08:20 08:20 08:20 WBC 4.1 L RBC 4.40 Hgb 10.8 L Hct 35.9 L MCV 81.6 MCH 24.5 L MCHC 30.1 L RDW 14.1 RDW Differential 42.4 Plt Count 164 MPV 11.2 Immature Gran % (Auto) 0.200 Neut % (Auto) 74.2 H Lymph % (Auto) 11.5 L [place] % (Auto) 9.5 Eos % (Auto) 3.4 Baso % (Auto) 1.2 H Absolute Neuts (auto) 3.0 Absolute Lymphs (auto) 0.47 L Total Counted Not Reportable Platelet Estimate ADEQUATE Hypochromasia RARE PT INR APTT Protein C Antigen Functional Protein C Prot C Funct Activity Antithrombin III Ag Func Antithrombin III Factor V Leiden Mutat Sodium 139 Potassium 4.1 Chloride 108 H Carbon Dioxide 26.0 Anion Gap 5 BUN 9 Creatinine 0.67 Estim Creat Clear Calc 94.14 Est GFR (MDRD) Af Amer 115 Est GFR (MDRD) Non-Af 95 BUN/Creatinine Ratio 13.5 Glucose 106 Calcium 8.2 L Magnesium 1.9 Total Bilirubin 0.60 AST 23 ALT 21 Alkaline Phosphatase 34 L Troponin I < 0.015 B-Natriuretic Peptide Total Protein 6.5 Albumin 3.1 L Globulin 3.4 Albumin/Globulin Ratio 0.9 Lipase 174 Beta-2-GPI IgG Ab Beta-2-GPI IgA Ab Beta-2-GPI IgM Ab Anti-Cardiolipin IgG Ab Anti-Cardiolipin IgM Ab Factor II DNA Analysis Miscellaneous Test 04/09/18 04/09/18 04/09/18 08:20 10:55 10:55 WBC RBC Hgb Hct MCV MCH MCHC RDW RDW Differential Plt Count MPV Immature Gran % (Auto) Neut % (Auto) Lymph % (Auto) [place] % (Auto) Eos % (Auto) Baso % (Auto) Absolute Neuts (auto) Absolute Lymphs (auto) Total Counted Platelet Estimate Hypochromasia PT 13.0 INR 1.0 APTT 25.0 Protein C Antigen Functional Protein C Prot C Funct Activity Antithrombin III Ag Func Antithrombin III Factor V Leiden Mutat Sodium Potassium Chloride Carbon Dioxide Anion Gap BUN Creatinine Estim Creat Clear Calc Est GFR (MDRD) Af Amer Est GFR (MDRD) Non-Af BUN/Creatinine Ratio Glucose Calcium Magnesium Total Bilirubin AST ALT Alkaline Phosphatase Troponin I B-Natriuretic Peptide 51.8 Total Protein Albumin Globulin Albumin/Globulin Ratio Lipase Beta-2-GPI IgG Ab Beta-2-GPI IgA Ab Beta-2-GPI IgM Ab Anti-Cardiolipin IgG Ab Anti-Cardiolipin IgM Ab Factor II DNA Analysis Miscellaneous Test Pending 04/09/18 04/09/18 04/09/18 10:55 13:55 20:26 WBC RBC Hgb Hct MCV MCH MCHC RDW RDW Differential Plt Count MPV Immature Gran % (Auto) Neut % (Auto) Lymph % (Auto) [place] % (Auto) Eos % (Auto) Baso % (Auto) Absolute Neuts (auto) Absolute Lymphs (auto) Total Counted Platelet Estimate Hypochromasia PT INR APTT 141.9 H* 55.4 H Protein C Antigen Pending Functional Protein C Pending Prot C Funct Activity Pending Antithrombin III Ag Pending Func Antithrombin III Pending Factor V Leiden Mutat Pending Sodium Potassium Chloride Carbon Dioxide Anion Gap BUN Creatinine Estim Creat Clear Calc Est GFR (MDRD) Af Amer Est GFR (MDRD) Non-Af BUN/Creatinine Ratio Glucose Calcium Magnesium Total Bilirubin AST ALT Alkaline Phosphatase Troponin I B-Natriuretic Peptide Total Protein Albumin Globulin Albumin/Globulin Ratio Lipase Beta-2-GPI IgG Ab Pending Beta-2-GPI IgA Ab Pending Beta-2-GPI IgM Ab Pending Anti-Cardiolipin IgG Ab Pending Anti-Cardiolipin IgM Ab Pending Factor II DNA Analysis Pending Miscellaneous Test 04/10/18 04/10/18 04/10/18 02:20 02:20 02:20 WBC 4.3 L RBC 4.00 L Hgb 10.0 L Hct 33.0 L MCV 82.5 MCH 25.0 L MCHC 30.3 L RDW 14.0 RDW Differential 41.7 Plt Count 236 MPV 11.1 Immature Gran % (Auto) 0.200 Neut % (Auto) 55.2 Lymph % (Auto) 27.3 [place] % (Auto) 12.6 H Eos % (Auto) 3.5 Baso % (Auto) 1.2 H Absolute Neuts (auto) 2.4 Absolute Lymphs (auto) 1.17 Total Counted Not Reportable Platelet Estimate Hypochromasia PT INR APTT 61.3 H Protein C Antigen Functional Protein C Prot C Funct Activity Antithrombin III Ag Func Antithrombin III Factor V Leiden Mutat Sodium 143 Potassium 3.7 Chloride 108 H Carbon Dioxide 26.0 Anion Gap 9 BUN 9 Creatinine 0.56 Estim Creat Clear Calc 112.64 Est GFR (MDRD) Af Amer 141 Est GFR (MDRD) Non-Af 116 BUN/Creatinine Ratio 16.1 Glucose 96 Calcium 8.2 L Magnesium Total Bilirubin AST ALT Alkaline Phosphatase Troponin I B-Natriuretic Peptide Total Protein Albumin Globulin Albumin/Globulin Ratio Lipase Beta-2-GPI IgG Ab Beta-2-GPI IgA Ab Beta-2-GPI IgM Ab Anti-Cardiolipin IgG Ab Anti-Cardiolipin IgM Ab Factor II DNA Analysis Miscellaneous Test Discharge Activity: - - Encourage routine daily activity. No driving if still using narcotic therapy. May resume sexual activity in: No Restrictions Call your doctor if you observe: Fever of 101 or Higher, Inability to urinate, Inability to have a bowel movement, Shortness of breath, Dizziness, Fainting spells, Chest pain, Uncontrolled pain Home Medications: Medications to take at Discharge oxycodone-acetaminophen 5 mg-325 mg tablet 1 tab PO .Q4-6H PRN tab 07/02/17 azathioprine 50 mg tablet 150 mg PO QDAY tab 07/08/17 Cranberry Fruit 1 cap PO BID 01/25/18 Cyanocobalamin (Vitamin B-12) [Vitamin B-12] 1,500 mcg PO QHS 01/25/18 Apixaban [Eliquis] 5 mg PO UD 30 Days #74 tab.ds.pk 04/09/18 Fluoxetine [Prozac] 40 mg PO DAILY 04/09/18 Sotalol Hydrochloride [Betapace (Beta Migue)] 80 mg PO BID 04/09/18 Ustekinumab [Stelara] 90 mg SQ Q60D 04/09/18 Famotidine [Pepcid] 20 mg PO BID #60 tablet 04/10/18 Ondansetron [Zofran] 8 mg PO Q8H PRN PRN #30 tablet 04/10/18 Oxycodone [Oxyir] 5 mg PO Q4H PRN PRN 4 Days #24 tablet 04/10/18 Following Prescrptions Were Given to Patient: Oxycodone [Oxyir] 5 mg PO Q4H PRN PRN 4 Days #24 tablet PRN Reason: Moderate Pain (pain scale 4-5) Ondansetron [Zofran] 8 mg PO Q8H PRN PRN #30 tablet PRN Reason: nausea, emesis Apixaban [Eliquis] 5 mg PO UD 30 Days #74 tab.ds.pk Famotidine [Pepcid] 20 mg PO BID #60 tablet Primary Care Physician: Matthew Wallace DO [Primary Care Provider] - Please follow up with your Primary Care Physician in: Follow-up within 3-5 days to review admission. Patient Instructions: Apixaban Oral tablet, Discharge Instructions for Pulmonary Embolism Disposition: Home Minutes spent on discharge:: 35 Patient Condition:: Fair Medical Necessity - Tobacco Use Smoking Status: Former smoker - 1/2-1 ppd x 20 year history, quit cigarette tobacco use 2004 Tobacco Use: Non-smoker Meaningful Use Info Meaningful Use Diagnoses (Choose all that apply): VTE - VTE Anticoag overlap given w/in hospital stay or rx'd at dc?: No Pt receive overlap for 5 days?: No Reason overlap not ordered, prescribed, or given for 5 days: Treatment Not Indicated - discharged on eliquis regimen. Code Visit Inpatient E&M: 52471 Disch Hosp
[2018-04-10 07:17] VITALS: PULSE 76
[2018-04-10 07:22] VITALS: O2SAT 94
[2018-04-10 08:22] VITALS: BP 120/78; PULSE 77; RESP 18; TEMP 37.2; O2SAT 93
[2018-04-10 08:47] LABS: Partial Thromboplast Time 59.9 Seconds (24.1-36.2)
[2018-04-10] MEDS: APIXABAN 5 MG TABLET 10 MG PO (08:58)
[2018-04-10] MEDS: FLUoxetine 20 MG Capsule 40 MG PO (08:59)
[2018-04-10] MEDS: Famotidine 20 MG Tablet PO (08:59)
[2018-04-10] MEDS: Sotalol Hydrochloride 80 MG Tablet PO (08:59)
[2018-04-10] MEDS: Pantoprazole Sodium 20 MG Tablet PO (08:59)
--- NOTE | 2018-04-10 09:02 | CASEMGMT ---
WON CM NOTE: Per Ahmet, pharmacist @ [facility], pt just had 60 tabs Percocet dispensed 04/07. Dr Mesa notified and reqiested for Oxycodone Prescription to not be filled. Called placed back to [place] and he was notified. [place] check done on [employer] with 30-day free trial offer. 1st month will be free and he states refills thereafter will be $60. Pt made aware and is agreeable with this. Levi JERONIMON RN CM
--- NOTE | 2018-04-10 09:13 | CASEMGMT ---
WON ESCOBAR SUPPORT MANAGER CM to room to meet with patient for initial transition planning/care coordination assessment. WON ESCOBAR introduced self and role at [facility]. Pt voices understanding and consents to assessment at this time. Pt resting in bed in no distress at this time. Pt is A/O at this time and answers all questions appropriately. Care providers, pharmacy, and demographics verified/updated at this time. PCP: Madison Arevalo Pharmacy: [facility] Insurance: MMO Prescription Benefit: Yes Living Will/HPOA: has both LW and HCPOA, who is her , Isadora. Neither found in e-chart. Pt made aware and states will see if someone can bring these into hospital sometime in the future. LNOK: Living Arrangements: Lives @ home with her . States is independent. Transportation: Pt states drives self and states no transportation concerns at this time. DME: States occasionally will use a cane when my back is bad. Also has rails beside commode. Pt states no need for further DME at this time. HHC/SNF: Has never been to a SNF or used HHC. Denies needs and no needs identified. Pt wishes to return home and states has no concerns with going home at time of discharge. CM further discharge planning/needs. Pt voices no further concerns/needs at this time. Advised pt to ask for CM if any further questions/concerns/needs arise. Voices understanding. PLAN: Home Levi AYOUB RN, CM
--- NOTE | 2018-04-10 09:42 | NURSING ---
provided krames medication teaching on [place]
[2018-04-14 20:07] LABS: Protein C Antigen 100 % (60-150); Protein C, Functional 129 % (73-180)
[2018-04-15 12:07] LABS: Anti-Cardiolipin Ab, IgG, Qn < 9 GPL U/mL (0-14)
[2018-04-15 12:08] LABS: Anti-Cardiolipin Ab, IgM, Qn < 9 MPL U/mL (0-12); Anti-Thrombin 3 AG, Immunol 82 % (72-124); Antithrombin 3 Function 117 % (75-135); Beta-2-Glycoprotein I IgA <9 (0-25); Beta-2-Glycoprotein I IgG <9 (0-20); Beta-2-Glycoprotein I IgM <9 (0-32)
== END 2018-04-10 09:45 | disposition home or self-care (01) ==
LOC: ED 07:45 → PCU 11:23
PROVIDERS: Admitting Provider Family Medicine; Emergency Provider Emergency Medicine; Family Provider Family Medicine; PCP Family Medicine; Visit Provider Family Medicine
DX: M25.512 Pain in left shoulder (principal); I26.99 Other pulmonary embolism without acute cor pulmonale; F41.9 Anxiety disorder, unspecified; F32.9 Major depressive disorder, single episode, unspecified; K50.90 Crohn's disease, unspecified, without complications; E78.5 Hyperlipidemia, unspecified; I48.0 Paroxysmal atrial fibrillation; E66.9 Obesity, unspecified; Z68.34 Body mass index [BMI] 34.0-34.9, adult; Z71.3 Dietary counseling and surveillance; Z79.899 Other long term (current) drug therapy; Z79.82 Long term (current) use of aspirin; G25.81 Restless legs syndrome; Z87.891 Personal history of nicotine dependence; K21.9 Gastro-esophageal reflux disease without esophagitis; R06.00 Dyspnea, unspecified; R20.2 Paresthesia of skin
CPT/HCPCS: 36415; 71275; 80048; 80053; 81240; 81241; 83690; 83735; 83880; 84484; 85025; 85300; 85301; 85302; 85303; 85610; 85730; 86146; 86147; 93005; 93306; 93970; 96365; 96366; 96375; 96376; 97802; 99285; J7030; Q9957; Q9967; A4216; C8929; J2405

== ENCOUNTER 2018-04-21 11:34 | Outpatient (RCR) | payer OTHER, SELFPAY ==
[2018-04-10 10:27] VITALS: BMI 34.4
[2018-04-21 13:59] LABS: Absolute Lymphocyte Count 0.94 X10^3/ul (0.83-4.51); Absolute Neutrophil Count 3.3 X10^3/uL (2.0-7.7); Basophil# 0.07 X10^3/uL; Basophil% 1.4 % (0-1); Eosinophil# 0.19 X10^3/uL; Eosinophils% 3.9 % (0-5); Hematocrit 33.8 % (37-47); Hemoglobin 9.9 g/dl (12.0-15.0); Lymphocyte # 0.94 X10^3/ul (4.0); Lymphocyte % 19.4 % (19-41); Mean Corp Hgb Conc 29.3 g/gl (32-36); Mean Platelet Vol. 11.4 fl (6.2-12.0); Monocyte# 0.34 X10^3/uL; Neutrophil # 3.29 X10^3/uL (2.7-7.7); Neutrophil % 68.1 % (47-70); Platelet Count 333 K/mm3 (150-450); RBC Distribution Width CV 14.3 % (11.6-14.6); RBC Distribution Width SD 43.2 fl (35.1-43.9); Red Blood Count 4.12 M/mm3 (4.2-5.4); White Blood Count 4.8 K/mm3 (4.4-11.0)
[2018-04-21 14:00] LABS: POSITIVE COUNT NO; POSITIVE DIFFERENTIAL NO; POSITIVE MORPHOLOGY NO
== END 2018-05-07 14:56 | disposition home or self-care (01) ==
LOC: MTLAB 11:34
PROVIDERS: Family Provider Family Medicine; PCP Family Medicine; Referring Provider Internal Medicine Gastroenterology; Visit Provider Internal Medicine Gastroenterology
DX: K50.90 Crohn's disease, unspecified, without complications (principal)
CPT/HCPCS: 36415; 85025

== ENCOUNTER → 2018-05-13 12:01 | Outpatient (CLI) | payer OTHER, SELFPAY ==
[2018-05-08 14:56] VITALS: BMI 34.2
[2018-05-13 16:31] LABS: Color, Urine Yellow (Yellow); Glucose, Dipstick Normal (Normal); Ketone-Dipstick Negative (Negative); Leukocyte Esterase-Dipstick 500 /ul (Negative); Nitrite-Dipstick Negative (Negative); Occult Blood-Urine 10 /ul (Negative); Protein-Dipstick Negative (Negative); Urine Bilirubin Dipstick Negative (Negative); Urine Clarity Clear (Clear); Urine Urobilinogen Normal (Normal)
== END ==
PROVIDERS: Family Provider Family Medicine; PCP Family Medicine; Visit Provider Family Medicine
DX: N39.0 Urinary tract infection, site not specified (principal)
CPT/HCPCS: 81002; 87077; 87086; 87088; 87186

== ENCOUNTER 2018-05-15 15:43 | Emergency (ER) | payer OTHER, SELFPAY ==
[2018-05-08 14:56] VITALS: BMI 34.2
[2018-05-15 15:44] VITALS: BP 153/93; PULSE 81; RESP 16; TEMP 37.2; O2SAT 97; BMI 34.8
--- NOTE | 2018-05-15 15:51 | RAD_ITS ---
STUDY: X-RAY - LEFT WRIST REASON FOR EXAM: Female, 62 years old. Fall pain TECHNIQUE: 3 view(s) of the wrist were obtained. COMPARISON: None. FINDINGS: There is an acute fracture of the distal radius with slight volar displacement. Normal radiocarpal articulation. Normal distal radioulnar articulation. Normal carpal bones. Normal carpal articulations. Normal carpometacarpal articulation of the thumb. Normal second through fifth carpometacarpal articulations. Normal visualized metacarpal bones. Soft tissue swelling. RAD/Wrist min 3 Views IMPRESSION: Acute fracture of the distal radius. Electronically Signed: Michelle aWtters MD at 16:11 EST Tel , Service support ,
--- NOTE | 2018-05-15 16:00 | RAD_ITS ---
STUDY: X-RAY - RIGHT KNEE REASON FOR EXAM: Female, 62 years old. Status post fall TECHNIQUE: 4 view(s) of the knee. COMPARISON: None. FINDINGS: Normal visualized distal femur. Normal visualized proximal tibia and fibula. Normal proximal tibiofibular articulation. There is mild degenerative arthrosis of the medial femorotibial compartment. There is mild degenerative arthrosis of the lateral femorotibial compartment. There is mild degenerative arthrosis of the patellofemoral articulation. The soft tissue structures are unremarkable. RAD/Knee 4 or More Views IMPRESSION: Degenerative arthrosis. Electronically Signed: Michelle Watters MD at 16:13 EST Tel , Service support ,
--- NOTE | 2018-05-15 16:35 | CT_ITS ---
STUDY: CT BRAIN WITHOUT CONTRAST REASON FOR EXAM: Female, 62 years old. Aditus post fall RADIATION DOSAGE (If Supplied By Facility): CTDIvol = ( 44.99 ) mGy, DLP = ( 846.73 ) mGycm TECHNIQUE: Transaxial CT imaging of the brain was performed without administration of intravenous contrast material. Individualized dose optimization techniques were used for this CT. COMPARISON: September 30, 2014 FINDINGS: Normal soft tissue structures. This been a left posterior parietal craniotomy. There is mild cerebral atrophy with widening of the extra-axial spaces and ventricular dilatation. There are minimal areas of decreased attenuation within the white matter tracts of the supratentorial brain, consistent with microvascular disease changes. There is low attenuation within the left side basal ganglia compatible with prior ischemic change. Normal brainstem. There is mild cerebellar atrophy. There is no intracranial hemorrhage. There are no findings of an acute ischemic infarction. Normal visualized paranasal sinuses. CT/Brain/Head without Contrast IMPRESSION: Mild atrophy. 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 Postoperative changes left side calvarium. No evidence of an acute hemorrhage infarct or edema visualized acute fracture. Electronically Signed: Michelle Watters MD at 17:25 EST Tel , Service support ,
--- NOTE | 2018-05-15 16:35 | CT_ITS ---
STUDY: CT FACIAL BONES WITHOUT CONTRAST REASON FOR EXAM: Female, 62 years old. Status post fall RADIATION DOSAGE (If Supplied By Facility): CTDIvol = ( 29.38 ) mGy, DLP = ( 496.03 ) mGycm TECHNIQUE: The patient was scanned in a multi detector CT scanner. Sagittal and coronal images were reconstructed. Individualized dose optimization techniques were used for this CT. COMPARISON: None. FINDINGS: There is a focus of right facial soft tissue edema. Normal orbital mobley and orbital contents. Normal nasal bones and anterior nasal spine. Normal facial bones. There is no demonstrated fracture. Normal visualized paranasal sinuses. Is visualized degenerative changes C1-C2. CT/Sinus/Facial Bone IMPRESSION: Mild facial soft tissue edema. No visualized acute fracture. Electronically Signed: Michelle Watters MD at 17:40 EST Tel , Service support ,
[2018-05-15 17:19] VITALS: BP 145/80; PULSE 75; RESP 14; O2SAT 98
--- NOTE | 2018-05-15 17:51 | ED.DCSUM_ITS ---
- ER Visit Summary Date of Service: 05/15/18 Chief Complaint: [Fall] History of Present Illness: The patient is a 62 F [presents the emergency department complaint of a fall that occurred just prior to arrival in emergency department around 3 PM. Patient states that she tripped on a curb and injured her right knee as well as her left hand and wrist. Patient did strike her face on the ground but had no loss of consciousness. Patient is on Eliquis for history of PEs and history of A. fib. She denies any neck pain. She denies any chest pain or abdominal pain. Patient has been ambulatory since the fall.] Physical Examination: [HEENT-PERRLA, EOMI. Cranial nerves II through XII grossly intact. TMs clear. Mucous membranes moist. No adenopathy. Patient has soft tissue swelling to the right zygomatic arch with some tenderness to palpation. Cardiovascular-regular rate and rhythm without murmur or ectopy Lungs-clear to auscultation, chest wall stable without crepitus or subcu emphysema Abdomen-normoactive bowel sounds, soft, nontender, no rebound or rigidity, no peritoneal signs. Extremities-intact ?4, normal range of motion, normal pulses. Left wrist- patient has diffuse soft tissue swelling with tenderness over the distal radius and pain with range of motion. She is neurovascular intact with normal station normal cap refill. Right knee-patient has superficial abrasion over the area of the patella with some mild tenderness to palpation. Ligamentously stable.] Test Results: [CT scan of the brain without contrast showed chronic changes related to craniotomy that was remote. No acute hemorrhage or skull fractures noted. CT facial bones showed no fractures. X-rays of the knee showed degenerative arthrosis without fractures. X-rays of the left wrist showed a distal radius fracture that is intra-articular with minimal displacement.] Emergency Department Course and Treatment: [Patient was placed in a volar splint. Patient was given a dose of [place] for pain and given a sling.] Treatment Plan: [Patient will be referred to [facility] for follow-up from she has seen in the past. She is given a prescription for Percocet for pain.] Disposition: [Discharged home in stable condition. Patient advised to ice and elevate extremity.] Impression: [Mechanical fall Left distal radius fracture Facial contusion Contusion right knee] This note was generated with Zipzoom[employer] software. It may contain incorrect words, spelling, and punctuation that were not noted in review of the chart prior to signing ED Disposition - Plan for ED Patient: Referrals: Matthew Wallace DO [Primary Care Provider] -
--- NOTE | 2018-05-15 17:51 | ED.DEP ---
ED Disposition - Plan for ED Patient: Instructions: ED Mechanical Fall, ED Fx Colles Wrist No Redu Requ, ED Contusion Face Prescriptions: Oxycodone HCl/Acetaminophen [Percocet 5/325] 1 tab PO Q6H PRN PRN 5 Days #20 tab PRN Reason: Pain Referrals: Matthew Wallace DO [Primary Care Provider] - Amadou Vinson MD [STAFF PHYSICIAN] - 3-5 Days
[2018-05-15] MEDS: oxyCODONE 5 MG Tablet PO (17:58)
[2018-05-15 18:01] VITALS: BP 135/78; PULSE 80; RESP 14; O2SAT 98
== END 2018-05-15 18:03 | disposition home or self-care (01) ==
LOC: ED 17:14
PROVIDERS: Emergency Provider Emergency Medicine; Family Provider Family Medicine; PCP Family Medicine
DX: S52.572A Other intraarticular fracture of lower end of left radius, initial encounter for closed fracture (principal); S80.01XA Contusion of right knee, initial encounter; S00.83XA Contusion of other part of head, initial encounter; W18.09XA Striking against other object with subsequent fall, initial encounter; Y93.9 Activity, unspecified; Y92.9 Unspecified place or not applicable; I48.91 Unspecified atrial fibrillation; Z86.711 Personal history of pulmonary embolism; Z79.01 Long term (current) use of anticoagulants; Z79.899 Other long term (current) drug therapy
CPT/HCPCS: 70450; 70486; 73110; 73564; 99283

== ENCOUNTER 2018-05-19 09:09 | Outpatient (RCR) | payer OTHER, SELFPAY ==
[2018-05-08 14:56] VITALS: BMI 34.2
[2018-05-19 10:00] LABS: Absolute Lymphocyte Count 0.63 X10^3/ul (0.83-4.51); Absolute Neutrophil Count 2.9 X10^3/uL (2.0-7.7); Basophil# 0.05 X10^3/uL; Basophil% 1.2 % (0-1); Eosinophil# 0.13 X10^3/uL; Eosinophils% 3.2 % (0-5); Hematocrit 40.1 % (37-47); Hemoglobin 11.5 g/dl (12.0-15.0); Lymphocyte # 0.63 X10^3/ul (4.0); Lymphocyte % 15.3 % (19-41); Mean Corp Hgb Conc 28.7 g/gl (32-36); Mean Corpuscular Hgb 24.9 pg (27.0-32.0); Mean Corpuscular Volume 86.8 fL (81-99); Mean Platelet Vol. 11.2 fl (6.2-12.0); Monocyte# 0.36 X10^3/uL; Monocyte% 8.7 % (0-10); Neutrophil # 2.94 X10^3/uL (2.7-7.7); Neutrophil % 71.4 % (47-70); POSITIVE COUNT NO; POSITIVE DIFFERENTIAL NO; POSITIVE MORPHOLOGY NO; Platelet Count 331 K/mm3 (150-450); RBC Distribution Width CV 18.3 % (11.6-14.6); RBC Distribution Width SD 57.5 fl (35.1-43.9); Red Blood Count 4.62 M/mm3 (4.2-5.4); White Blood Count 4.1 K/mm3 (4.4-11.0)
[2018-05-19 10:52] LABS: Ferritin 24 ng/mL (8-252); Iron 29 ug/dL (50-170)
== END 2018-05-19 10:00 | disposition home or self-care (01) ==
LOC: MTLAB 09:09
PROVIDERS: Family Provider Family Medicine; PCP Family Medicine; Referring Provider Internal Medicine Gastroenterology; Visit Provider Internal Medicine Gastroenterology
DX: D64.9 Anemia, unspecified (principal)
CPT/HCPCS: 36415; 82728; 83540; 85025

== ENCOUNTER → 2018-06-03 11:33 | Outpatient (CLI) | payer OTHER, SELFPAY ==
[2018-05-15 15:44] VITALS: BMI 34.8
== END ==
PROVIDERS: Family Provider Family Medicine; PCP Family Medicine; Referring Provider Nurse Practitioner Adult Health; Visit Provider Nurse Practitioner Adult Health
DX: R30.0 Dysuria (principal)
CPT/HCPCS: 87086; 87088; 87186

== ENCOUNTER → 2018-09-03 10:19 | Outpatient (CLI) | payer OTHER, SELFPAY | PROVIDERS: Family Provider Family Medicine; PCP Family Medicine; Referring Provider Nurse Practitioner Adult Health; Visit Provider Nurse Practitioner Adult Health | DX: R82.998 Other abnormal findings in urine (principal) | CPT/HCPCS: 87077; 87086; 87088; 87186 ==

== ENCOUNTER → 2018-09-04 09:49 | Outpatient (CLI) | payer OTHER, SELFPAY ==
--- NOTE | 2018-09-04 09:53 | RAD_ITS ---
STUDY: X-RAY - PELVIS AND BILATERAL HIPS REASON FOR EXAM: Female, 63 years old. Hip pain TECHNIQUE: AP view of the pelvis.? 2 views of the right hip, and 2 views of the left hip were obtained. COMPARISON: None. FINDINGS: There is a non-specific bowel gas pattern. Normal visualized soft tissue structures. Normal bilateral iliac wings, sacroiliac joints and visualized sacrum. Normal bilateral superior and inferior pubic rami. Normal pubic symphysis. Normal bilateral ischial tuberosities. Normal visualized right femoral head. Normal right acetabulum. Normal right hip joint. Normal visualized left femoral head. Normal left acetabulum. Normal left hip joint. RAD/Hips B/L min 2 views w/ Pelvis IMPRESSION: Normal x-ray examination of the pelvis and bilateral hips. Electronically Signed: Narciso Pate MD at 16:08 EDT Tel , Service support ,
--- NOTE | 2018-09-04 09:53 | RAD_ITS ---
STUDY: X-RAY - RIGHT KNEE REASON FOR EXAM: Female, 63 years old. Knee pain TECHNIQUE: 4 view(s) of the knee. COMPARISON: 05/15/2018 FINDINGS: Normal visualized distal femur. Normal visualized proximal tibia and fibula. Normal proximal tibiofibular articulation. Normal medial femorotibial compartment. Normal lateral femorotibial compartment. Normal patellofemoral articulation. The soft tissue structures are unremarkable. RAD/Knee 4 or More Views IMPRESSION: Normal x-ray examination of the knee. Electronically Signed: Narciso Pate MD at 16:07 EDT Tel , Service support ,
--- NOTE | 2018-09-04 09:55 | RAD_ITS ---
STUDY: X-RAY - LEFT KNEE REASON FOR EXAM: Female, 63 years old. Knee pain TECHNIQUE: 4 view(s) of the knee. COMPARISON: None. FINDINGS: Normal visualized distal femur. Normal visualized proximal tibia and fibula. Normal proximal tibiofibular articulation. Normal medial femorotibial compartment. Normal lateral femorotibial compartment. Normal patellofemoral articulation. The soft tissue structures are unremarkable. RAD/Knee 4 or More Views IMPRESSION: Normal x-ray examination of the knee. Electronically Signed: Narciso Pate MD at 16:06 EDT Tel , Service support ,
== END ==
PROVIDERS: Family Provider Family Medicine; PCP Family Medicine; Referring Provider Nurse Practitioner Family; Visit Provider Nurse Practitioner Family
DX: M25.562 Pain in left knee (principal); M25.561 Pain in right knee; M25.552 Pain in left hip; M25.551 Pain in right hip
CPT/HCPCS: 73521; 73564

== ENCOUNTER → 2018-09-29 12:06 | Outpatient (CLI) | payer OTHER, SELFPAY ==
[2018-10-04 17:12] LABS: Rubeola IgG Ab > 300.0 AU/mL (Immune >29.9); Rubeola IgM Ab < 0.80 AU (0.00-0.79)
== END ==
PROVIDERS: Family Provider Family Medicine; PCP Family Medicine; Visit Provider Family Medicine
DX: Z28.3 Underimmunization status (principal)
CPT/HCPCS: 86765

== ENCOUNTER → 2018-10-05 13:14 | Outpatient (CLI) | payer OTHER, SELFPAY ==
[2018-10-05 13:52] LABS: Erythrocyte Sedimentation Rate 12 mm/hr (0-30)
[2018-10-05 14:19] LABS: CRP 4.57 mg/L (0.0-3.0); Rheumatoid Factor < 10.0 IU/mL (<15)
[2018-10-06 12:59] LABS: ANTINUCLEAR ANTIBODIES DIRECT Negative (Negative)
[2018-10-07 11:15] LABS: CCP IgG Antibodies 15 units (0-19)
== END ==
PROVIDERS: Family Provider Family Medicine; PCP Family Medicine; Referring Provider Family Medicine; Visit Provider Family Medicine
DX: M25.50 Pain in unspecified joint (principal)
CPT/HCPCS: 36415; 85652; 86038; 86140; 86200; 86225; 86235; 86431

== ENCOUNTER → 2018-10-07 07:07 | Outpatient (CLI) | payer OTHER, SELFPAY ==
--- NOTE | 2018-10-07 07:09 | BI_ITS ---
MAMMOGRAPHY - BILATERAL SCREENING REASON FOR EXAM: Female, 63 years old. Routine annual screening examination. PERTINENT HISTORY: Non-contributory. History of bilateral breast reduction surgery. TECHNIQUE: Digital bilateral breast patel (3D mammographic acquisition) in the CC and MLO projections. 2-D mediolateral oblique (MLO) and craniocaudad (CC) views of both breasts were obtained. CAD: Full Field Digital Mammography with Computer Added Detection was performed. COMPARISON: Comparison is made with prior examination dated July 28, 2017 and April 18, 2016. FINDINGS: Breast Composition: The breasts are almost entirely fatty. There are no dominant masses or suspicious calcifications. Postsurgical changes are seen in both breasts especially in the upper outer aspect of the left breast and keep with prior surgery. A dense linear band of calcification is once again seen in the upper lateral portion of the left breast in keeping with prior surgery. No other significant abnormalities are identified. There has been no significant change since the prior study. BI/SCREEN MAMM (CAD) W/PATEL BILAT IMPRESSION: Stable bilateral screening mammogram. Yearly follow-up mammogram recommended. (A) ASSESSMENT CATEGORY: BIRADS Category 2: Benign. A letter regarding these results will be sent to the patient by the facility within 30 days. Approximately 10% of breast cancers are not detected by mammography. A normal mammogram should not delay biopsy of a clinically suspicious abnormality. [id number] Electronically Signed: Bob Oro, at 9:27 EDT , Service support ,
== END ==
PROVIDERS: Family Provider Family Medicine; PCP Family Medicine; Referring Provider Obstetrics & Gynecology; Visit Provider Obstetrics & Gynecology
DX: Z12.31 Encounter for screening mammogram for malignant neoplasm of breast (principal)
CPT/HCPCS: 77063; 77067

== ENCOUNTER 2018-11-30 09:00 | Outpatient (RCR) | payer OTHER, SELFPAY ==
[2018-10-13 08:23] VITALS: BMI 35.3
[2018-11-30 10:40] LABS: Ferritin 48 ng/mL (8-252); Iron 77 ug/dL (50-170)
== END 2018-11-30 18:00 | disposition home or self-care (01) ==
LOC: MTLAB 09:00
PROVIDERS: Family Provider Family Medicine; PCP Family Medicine; Referring Provider Internal Medicine Gastroenterology; Visit Provider Internal Medicine Gastroenterology
DX: D64.9 Anemia, unspecified (principal)
CPT/HCPCS: 36415; 82728; 83540

== ENCOUNTER 2019-01-05 11:04 | Outpatient (RCR) | payer OTHER, SELFPAY ==
[2018-10-13 08:23] VITALS: BMI 35.3
[2019-01-05 12:16] LABS: Absolute Lymphocyte Count 1.12 X10^3/uL (0.83-4.51); Absolute Neutrophil Count 3.3 X10^3/uL (2.0-7.7); Basophil# 0.07 X10^3/uL; Basophil% 1.3 % (0-1); Eosinophil# 0.23 X10^3/uL; Eosinophils% 4.3 % (0-5); Hematocrit 47.8 % (37-47); Hemoglobin 15.1 g/dL (12.0-15.0); Lymphocyte # 1.12 X10^3/ul (4.0); Lymphocyte % 21.1 % (19-41); Mean Corp Hgb Conc 31.6 g/dL (32-36); Mean Corpuscular Hgb 26.7 pg (27.0-32.0); Mean Corpuscular Volume 84.5 fL (81-99); Mean Platelet Vol. 11.6 fl (6.2-12.0); Monocyte# 0.56 X10^3/uL; Monocyte% 10.6 % (0-10); NRBC Flagged by Analyzer 0 % (0-5); Neutrophil % 62.3 % (47-70); Platelet Count 249 K/mm3 (150-450); RBC Distribution Width CV 12.8 % (11.6-14.6); RBC Distribution Width SD 39.4 fl (35.1-43.9); Red Blood Count 5.66 M/mm3 (4.2-5.4); White Blood Count 5.3 K/mm3 (4.4-11.0)
[2019-01-05 14:04] LABS: Ferritin 60 ng/mL (8-252); Iron 58 ug/dL (50-170)
== END 2019-01-05 18:00 | disposition home or self-care (01) ==
LOC: MTLAB 11:04
PROVIDERS: Family Provider Family Medicine; PCP Family Medicine; Referring Provider Internal Medicine Gastroenterology; Visit Provider Internal Medicine Gastroenterology
DX: D50.9 Iron deficiency anemia, unspecified (principal); K50.90 Crohn's disease, unspecified, without complications
CPT/HCPCS: 36415; 82728; 83540; 85025

== ENCOUNTER → 2019-02-10 07:19 | Outpatient (CLI) | payer OTHER, SELFPAY ==
[2018-10-13 08:23] VITALS: BMI 35.3
--- NOTE | 2019-02-10 07:21 | CT_ITS ---
STUDY: CT ENTEROGRAPHY WITH CONTRAST REASON FOR EXAM: Female, 63 years old. History of recent flareup of Crohn''s disease. RADIATION DOSAGE (If Supplied By Facility): CTDIvol = ( 24.37 ) mGy, DLP = ( 2795.30 ) mGycm TECHNIQUE: Transaxial images were obtained from the dome of the diaphragm to the symphysis pubis with oral contrast. 450ml of Volumen was administered orally at 60 minutes and 40 minutes and 225ml of Volumen was administered 20 minutes and 10 minutes prior to scanning, to a total of 1,350ml. 100 cc of Isovue 370 was administered intravenously. Sagittal and coronal images were reconstructed. TECHNICAL QUALITY: Image Quality: Satisfactory Small Bowel Distension: Adequate. Individualized dose optimization techniques were used for this CT. COMPARISON: Comparison is made with prior study dated June 24, 2014 FINDINGS: Bowel: Bowel wall thickening: Is evidence of circumferential bowel wall thickening with narrowing in the terminal ileum. There is minimal proximal dilatation of the small bowel loop. There is no evidence of bowel dilatation. Skip lesions: None. Vascularity: Normal. Enhancement: Normal. Fistula: None. Abscess: None. Other Findings: The lung bases are unremarkable. The visualized portions of the heart are within normal limits There is evidence of diffuse fatty infiltration of the liver. The patient is status post cholecystectomy. Stable 1.4 cm x 1.9 cm rounded hypodensity in the peripheral posterior aspect of the spleen. Multiple calcified splenic granulomas. Normal pancreas. Normal bilateral adrenal glands. Normal right kidney. Normal left kidney. Normal visualized stomach. Normal colon. The appendix is visualized and appears normal. Normal abdominal aorta. Normal interior vena cava. Normal retroperitoneum. Normal urinary bladder. Enlarged fibroid uterus. The Normal abdominal wall. Normal osseous structures. CT/Abdomen/Pelvis WITH Contrast IMPRESSION: Circumferential wall thickening of the terminal ileum with minimal localized bowel dilatation. There is no evidence of abscess or fistula at this time. Electronically Signed: Bbo Oro, at 8:53 EST , Service support ,
[2019-02-10 07:41] LABS: CREATININE FINGERSTICK 0.9 mg/dL (0.55-1.02); EGFR FINGERSTICK > 60.0000 mL/min (>60)
[2019-02-10 09:05] LABS: D-Dimer Quantitative (DVT/PE) 0.37 FEU/ug/m (0.27-0.49)
== END ==
PROVIDERS: Family Provider Family Medicine; PCP Family Medicine; Referring Provider Internal Medicine Gastroenterology; Visit Provider Internal Medicine Gastroenterology
DX: K50.90 Crohn's disease, unspecified, without complications (principal); R06.00 Dyspnea, unspecified
CPT/HCPCS: 36415; 74177; 85379; Q9967

== ENCOUNTER → 2019-03-31 09:16 | Outpatient (CLI) | payer OTHER, SELFPAY ==
[2018-10-13 08:23] VITALS: BMI 35.3
[2019-03-31 10:02] LABS: Absolute Lymphocyte Count 1.11 X10^3/uL (0.83-4.51); Absolute Neutrophil Count 3.5 X10^3/uL (2.0-7.7); Basophil# 0.09 X10^3/uL; Basophil% 1.7 % (0-1); Eosinophil# 0.19 X10^3/uL; Eosinophils% 3.5 % (0-5); Hematocrit 49.3 % (37-47); Hemoglobin 15.6 g/dL (12.0-15.0); Lymphocyte # 1.11 X10^3/ul (4.0); Lymphocyte % 20.6 % (19-41); Mean Corp Hgb Conc 31.6 g/dL (32-36); Mean Corpuscular Hgb 26.6 pg (27.0-32.0); Mean Platelet Vol. 11.2 fl (6.2-12.0); Monocyte# 0.48 X10^3/uL; Monocyte% 8.9 % (0-10); NRBC Flagged by Analyzer 0 % (0-5); Neutrophil % 65.1 % (47-70); Platelet Count 256 K/mm3 (150-450); RBC Distribution Width CV 13.3 % (11.6-14.6); RBC Distribution Width SD 40.8 fl (35.1-43.9); Red Blood Count 5.87 M/mm3 (4.2-5.4); White Blood Count 5.4 K/mm3 (4.4-11.0)
[2019-03-31 10:28] LABS: Ferritin 87 ng/mL (8-252); Iron 44 ug/dL (50-170)
== END ==
PROVIDERS: PCP Family Medicine; Referring Provider Internal Medicine Gastroenterology; Visit Provider Internal Medicine Gastroenterology
DX: D50.9 Iron deficiency anemia, unspecified (principal); K50.80 Crohn's disease of both small and large intestine without complications
CPT/HCPCS: 36415; 82728; 83540; 85025

== ENCOUNTER → 2019-07-16 14:16 | Outpatient (CLI) | payer OTHER, SELFPAY ==
[2018-10-13 08:23] VITALS: BMI 35.3
--- NOTE | 2019-07-16 14:21 | RAD_ITS ---
STUDY: X-RAY - LUMBAR SPINE REASON FOR EXAM: Female, 64 years old. Arthropathy of lumbar facet joint -- degeneration of lumbar intervertebral disc TECHNIQUE: 5 view(s) of the lumbar spine were obtained including oblique views. COMPARISON: Comparison is made with prior examination of November 20, 2015. FINDINGS: Normal lumbar lordosis. There is no substantial scoliosis. There is a normal alignment of the vertebrae. Normal vertebral bodies and endplates. There is mild multi-level degenerative disc disease with multi-level disc space narrowing. Facet joint osteoarthritis. There is atherosclerotic calcification of the abdominal aorta without a demonstrated aneurysm. Surgical clips are seen in the right upper quadrant suggestive of a prior cholecystectomy. Calcified granulomas in the left lower lobe. RAD/L/S Spine Min 4 Views IMPRESSION: Degenerative changes of the spine, as detailed above. Electronically Signed: Bob Oro, at 14:53 EDT , Service support ,
== END ==
PROVIDERS: PCP Family Medicine; Referring Provider Nurse Practitioner Family; Visit Provider Nurse Practitioner Family
DX: M46.96 Unspecified inflammatory spondylopathy, lumbar region (principal); M51.36 Other intervertebral disc degeneration, lumbar region; M54.16 Radiculopathy, lumbar region; M47.817 Spondylosis without myelopathy or radiculopathy, lumbosacral region
CPT/HCPCS: 72110

== ENCOUNTER → 2019-07-26 07:29 | Outpatient (CLI) | payer OTHER, SELFPAY ==
[2018-10-13 08:23] VITALS: BMI 35.3
--- NOTE | 2019-07-26 07:34 | MRI_ITS ---
STUDY: MRI LUMBAR SPINE WITHOUT CONTRAST REASON FOR EXAM: Female, 64 years old. degen disc, radiculopathy, lbp, left leg and gt; right leg pain TECHNIQUE: Standardized fat and water weighted pulse sequences were obtained in the sagittal and axial planes. COMPARISON: None FINDINGS: T12-L1: Normal endplates. Normal disc height, hydration and morphology. Normal bilateral facet joints. Normal central canal and bilateral lateral recesses. Normal bilateral intervertebral neural foramina. Normal lumbar lordosis. There is no substantial scoliosis. Normal conus medullaris that terminates at the L1-2: Normal endplates. Normal disc height, hydration and morphology. Normal bilateral facet joints. Normal central canal and bilateral lateral recesses. Normal bilateral intervertebral neural foramina. There is a hemangioma in the vertebral body of L2, it has no clinical significance. L2-3: Normal endplates. Normal disc height, hydration and morphology. Normal bilateral facet joints. Normal central canal and bilateral lateral recesses. Normal bilateral intervertebral neural foramina. L3-4: Endplate spondylosis. Decreased disc height and moderate circumferential disc bulge. Degenerative changes of the bilateral facet joints. Moderate narrowing of the central canal and bilateral intervertebral neural foramina. L4-5: Endplate spondylosis. Decreased disc height and moderate circumferential disc bulge. 5 mm spondylolisthesis. Degenerative changes of the bilateral facet joints. Moderate to severe narrowing of the central canal and bilateral intervertebral neural foramina. L5-S1: Endplate spondylosis. Decreased disc height and small circumferential disc bulge. Superimposed left paramidline disc herniation impinging on the left S1 nerve root. Degenerative changes of the bilateral facet joints. Mild narrowing of the central canal and bilateral intervertebral neural foramina. Normal visualized sacral ala. Normal visualized paraspinous soft tissue structures. MRI/Spine Lumbar (Routine) IMPRESSION: Multilevel degenerative changes, as described above. Electronically Signed: Aguila Ho, at 10:07 EDT Tel , Service support ,
== END ==
PROVIDERS: PCP Family Medicine; Referring Provider Anesthesiology Pain Medicine; Visit Provider Anesthesiology Pain Medicine
DX: M51.37 Other intervertebral disc degeneration, lumbosacral region (principal); M54.17 Radiculopathy, lumbosacral region
CPT/HCPCS: 72148

== ENCOUNTER → 2019-09-03 10:15 | Outpatient (CLI) | payer OTHER, SELFPAY ==
[2018-10-13 08:23] VITALS: BMI 35.3
[2019-09-03 12:15] LABS: Absolute Lymphocyte Count 1.24 X10^3/uL (0.83-4.51); Basophil# 0.07 X10^3/uL; Basophil% 1.1 % (0-1); Eosinophil# 0.22 X10^3/uL; Eosinophils% 3.6 % (0-5); Hematocrit 49.8 % (37-47); Hemoglobin 15.4 g/dL (12.0-15.0); Lymphocyte # 1.24 X10^3/ul (4.0); Lymphocyte % 20.3 % (19-41); Mean Corp Hgb Conc 30.9 g/dL (32-36); Mean Corpuscular Hgb 27.2 pg (27.0-32.0); Mean Platelet Vol. 11.4 fl (6.2-12.0); Monocyte# 0.56 X10^3/uL; Monocyte% 9.2 % (0-10); NRBC Flagged by Analyzer 0 % (0-5); Neutrophil # 3.98 X10^3/uL (2.7-7.7); Neutrophil % 65.3 % (47-70); Platelet Count 235 K/mm3 (150-450); RBC Distribution Width CV 13.6 % (11.6-14.6); RBC Distribution Width SD 43.3 fl (35.1-43.9); Red Blood Count 5.66 M/mm3 (4.2-5.4); White Blood Count 6.1 K/mm3 (4.4-11.0)
[2019-09-03 12:30] LABS: AST(SGOT) 25 U/L (15-37); Alanine Aminotransfer ALT/SGPT 51 U/L (13-56); Albumin, Serum 3.6 g/dL (3.2-5.0); Alkaline Phosphatase 69 U/L (45-117); Bilirubin, Direct 0.28 mg/dL (0.00-0.30); Cholesterol 192 mg/dL (200); Ferritin 123 ng/mL (8-252); Globulin 3.8 g/dL (2.2-4.2); High Density Lipoprotein 59 mg/dL; Iron 73 ug/dL (50-170); Protein, Total 7.4 g/dL (6.4-8.2); Triglycerides 116 mg/dL; Very Low Density Lipoprotein 23 mg/dL (5-40)
== END ==
PROVIDERS: PCP Family Medicine; Referring Provider Internal Medicine Cardiovascular Disease; Visit Provider Internal Medicine Cardiovascular Disease
DX: E78.00 Pure hypercholesterolemia, unspecified (principal); D50.9 Iron deficiency anemia, unspecified; K50.80 Crohn's disease of both small and large intestine without complications
CPT/HCPCS: 36415; 80061; 80076; 82728; 83540; 85025

== ENCOUNTER → 2019-10-04 14:19 | Outpatient (CLI) | payer OTHER, SELFPAY ==
[2019-09-23 13:09] VITALS: BMI 37.4
--- NOTE | 2019-10-04 14:22 | RAD_ITS ---
STUDY: X-RAY - LEFT KNEE REASON FOR EXAM: Female, 64 years old. Bilateral knee pain TECHNIQUE: 4 view(s) of the knee. COMPARISON: None. FINDINGS: Normal visualized distal femur. Normal visualized proximal tibia and fibula. Normal proximal tibiofibular articulation. There is mild degenerative arthrosis of the medial femorotibial compartment. Normal lateral femorotibial compartment. There is mild degenerative arthrosis of the patellofemoral articulation. The soft tissue structures are unremarkable. RAD/Knee 4 or More Views IMPRESSION: Mild arthrosis Electronically Signed: Remy Weeks MD at 18:55 EDT , Service support ,
--- NOTE | 2019-10-04 14:22 | RAD_ITS ---
STUDY: X-RAY - RIGHT KNEE REASON FOR EXAM: Bilateral knee pain. TECHNIQUE: 4 view(s) of the knee. COMPARISON: Radiographs 09/04/2018. FINDINGS: Normal visualized distal femur. Normal visualized proximal tibia and fibula. Normal proximal tibiofibular articulation. Normal medial femorotibial compartment. Normal lateral femorotibial compartment. Normal patellofemoral articulation. There is a small joint effusion. RAD/Knee 4 or More Views IMPRESSION: Small joint effusion. Otherwise, unremarkable x-ray examination of the right knee. Electronically Signed: Rahat Zuñiga MD at 15:02 EDT Tel , Service support ,
== END ==
PROVIDERS: PCP Family Medicine; Referring Provider Anesthesiology Pain Medicine; Visit Provider Anesthesiology Pain Medicine
DX: M25.562 Pain in left knee (principal); M25.561 Pain in right knee
CPT/HCPCS: 73564

== ENCOUNTER → 2019-11-29 12:34 | Outpatient (CLI) | payer OTHER, SELFPAY ==
[2019-09-23 13:09] VITALS: BMI 37.4
--- NOTE | 2019-11-29 12:36 | BI_ITS ---
MAMMOGRAPHY - BILATERAL SCREENING REASON FOR EXAM: Female, 64 years old. Routine annual screening examination. PERTINENT HISTORY: Non-contributory. History of bilateral breast reduction surgery. TECHNIQUE: Digital bilateral breast patel (3D mammographic acquisition) in the CC and MLO projections. 2-D mediolateral oblique (MLO) and craniocaudad (CC) views of both breasts were obtained. CAD: Full Field Digital Mammography with Computer Added Detection was performed. COMPARISON: Comparison is made with prior study dated 10/07/2018 and 07/28/2017. FINDINGS: Breast Composition: The breasts are almost entirely fatty. There are no dominant masses or suspicious calcifications. Stable postsurgical changes seen in both breasts especially in the upper outer aspect of the left breast with the linear calcification. No other significant abnormalities are identified. There has been no significant change since the prior study. BI/SCREEN MAMM (CAD) W/PATEL BILAT IMPRESSION: Stable bilateral screening mammogram. Yearly follow-up mammogram recommended. (A) ASSESSMENT CATEGORY: BIRADS Category 2: Benign. A letter regarding these results will be sent to the patient by the facility within 30 days. Approximately 10% of breast cancers are not detected by mammography. A normal mammogram should not delay biopsy of a clinically suspicious abnormality. [id number] Electronically Signed: Bob Oro, at 13:42 EDT , Service support ,
== END ==
PROVIDERS: PCP Family Medicine; Referring Provider Family Medicine; Visit Provider Student in an Organized Health Care Education/Training Program
DX: Z12.31 Encounter for screening mammogram for malignant neoplasm of breast (principal)
CPT/HCPCS: 77063; 77067

== ENCOUNTER → 2019-12-10 11:11 | Outpatient (CLI) | payer OTHER, SELFPAY ==
[2019-09-23 13:09] VITALS: BMI 37.4
--- NOTE | 2019-12-10 11:13 | RAD_ITS ---
STUDY: X-RAY - RIGHT KNEE REASON FOR EXAM: Female, 64 years old. TWISTING INJURY, FELT A and quot;POP and quot;, PAINFUL AND LROM SINCE TECHNIQUE: 4 view(s) of the knee. COMPARISON: 10/04/2019 FINDINGS: Normal visualized distal femur. Normal visualized proximal tibia and fibula. Normal proximal tibiofibular articulation. Normal medial femorotibial compartment. Normal lateral femorotibial compartment. Normal patellofemoral articulation. There is a soft tissue prominence in the suprapatellar region suggesting a small volume joint effusion. The soft tissue structures are unremarkable. RAD/Knee 4 or More Views IMPRESSION: Effusion, as described above. Electronically Signed: Narciso Pate MD at 6:36 EDT Tel , Service support ,
== END ==
PROVIDERS: PCP Family Medicine; Referring Provider Family Medicine; Visit Provider Family Medicine
DX: M25.561 Pain in right knee (principal)
CPT/HCPCS: 73564

== ENCOUNTER → 2019-12-29 09:00 | Outpatient (CLI) | payer OTHER, SELFPAY ==
[2019-09-23 13:09] VITALS: BMI 37.4
== END ==
PROVIDERS: PCP Family Medicine; Referring Provider Orthopaedic Surgery; Visit Provider Orthopaedic Surgery
DX: Z11.59 Encounter for screening for other viral diseases (principal)
CPT/HCPCS: 87635; C9803; U0003

== ENCOUNTER → 2020-01-14 14:39 | Outpatient (CLI) | payer OTHER, SELFPAY ==
[2019-09-23 13:09] VITALS: BMI 37.4
[2020-01-14 17:24] LABS: Absolute Lymphocyte Count 1.87 X10^3/uL (0.83-4.51); Absolute Neutrophil Count 3.8 X10^3/uL (2.0-7.7); Basophil# 0.08 X10^3/uL; Basophil% 1.2 % (0-1); Eosinophil# 0.25 X10^3/uL; Eosinophils% 3.8 % (0-5); Hematocrit 49.1 % (37-47); Hemoglobin 15.1 g/dL (12.0-15.0); Lymphocyte # 1.87 X10^3/ul (4.0); Lymphocyte % 28.4 % (19-41); Mean Corp Hgb Conc 30.8 g/dL (32-36); Mean Corpuscular Volume 87.8 fL (81-99); Mean Platelet Vol. 11.5 fl (6.2-12.0); Monocyte# 0.59 X10^3/uL; NRBC Flagged by Analyzer 0 % (0-5); Neutrophil # 3.78 X10^3/uL (2.7-7.7); Neutrophil % 57.3 % (47-70); Platelet Count 249 K/mm3 (150-450); RBC Distribution Width CV 13.2 % (11.6-14.6); RBC Distribution Width SD 42.3 fl (35.1-43.9); Red Blood Count 5.59 M/mm3 (4.2-5.4); White Blood Count 6.6 K/mm3 (4.4-11.0)
== END ==
PROVIDERS: PCP Family Medicine; Referring Provider Internal Medicine Gastroenterology; Visit Provider Internal Medicine Gastroenterology
DX: K50.90 Crohn's disease, unspecified, without complications (principal)
CPT/HCPCS: 36415; 85025

== ENCOUNTER → 2020-01-24 10:20 | Outpatient (CLI) | payer OTHER, SELFPAY ==
[2019-09-23 13:09] VITALS: BMI 37.4
== END ==
PROVIDERS: PCP Family Medicine; Referring Provider Family Medicine; Visit Provider Family Medicine
DX: Z20.828 Contact with and (suspected) exposure to other viral communicable diseases (principal)
CPT/HCPCS: 87635; C9803; U0003

== ENCOUNTER → 2020-02-10 09:07 | Outpatient (CLI) | payer OTHER, SELFPAY ==
[2019-09-23 13:09] VITALS: BMI 37.4
[2020-02-10 12:46] LABS: Vitamin B12 361 pg/mL (211-911)
[2020-02-10 12:58] LABS: ALB/GLOB Ratio 0.8 RATIO (0.9-2.4); AST(SGOT) 29 U/L (15-37); Alanine Aminotransfer ALT/SGPT 48 U/L (13-56); Albumin, Serum 3.3 g/dL (3.2-5.0); Alkaline Phosphatase 56 U/L (45-117); Anion Gap 6 (5-15); BUN 15 mg/dL (7-18); BUN/Creat Ratio 18.2 RATIO (10-20); Calcium,Total 8.8 mg/dL (8.5-10.1); Chloride 99 mmol/L (98-107); Cholesterol 171 mg/dL (200); Creatinine, Serum 0.82 mg/dL (0.55-1.02); EST Glomerular Filtration Rate 74 mL/min (>60); Est Glom Filt Rate - Afr Amer 90 mL/min (>60); Glucose 100 mg/dL (74-106); High Density Lipoprotein 48 mg/dL; Potassium 3.7 mmol/L (3.5-5.1); Protein, Total 7.3 g/dL (6.4-8.2); Sodium Level 138 mmol/L (136-145); Thyroid Stim Hormone (TSH) 1.78 uIU/mL (0.358-3.74); Triglycerides 149 mg/dL; Very Low Density Lipoprotein 30 mg/dL (5-40)
== END ==
PROVIDERS: PCP Family Medicine; Visit Provider Family Medicine
DX: Z00.00 Encounter for general adult medical examination without abnormal findings (principal); E04.2 Nontoxic multinodular goiter; R03.0 Elevated blood-pressure reading, without diagnosis of hypertension; I48.91 Unspecified atrial fibrillation; K50.90 Crohn's disease, unspecified, without complications; E53.8 Deficiency of other specified B group vitamins
CPT/HCPCS: 36415; 80053; 80061; 82607; 84443

== ENCOUNTER 2020-04-27 11:16 | Observation (INO) | payer OTHER, SELFPAY ==
[2019-09-23 13:09] VITALS: BMI 37.4
--- NOTE | 2020-04-14 08:25 | EKG12_ITS ---
Test Reason : PREOP Blood Pressure : / mmHG Vent. Rate : 079 BPM Atrial Rate : 079 BPM P-R Int : 172 ms QRS Dur : 094 ms QT Int : 378 ms P-R-T Axes : 039 026 035 degrees QTc Int : 433 ms Normal sinus rhythm Normal ECG Confirmed by ELAINE RICK, SHANNON ([id number]), editor & co founder JEANNINE MINOR ([id number]) on 04/14/2020 10:50:12 AM Referred By: Francisco Santos Confirmed By:SHANNON HENRY MD
--- NOTE | 2020-04-14 08:32 | RAD_ITS ---
STUDY: X-RAY CHEST REASON FOR EXAM: Female, 64 years old. Pre-op for lumbar surgery -- h/o Afib, no chest complaints TECHNIQUE: PA and lateral views of the chest. COMPARISON: Comparison is made with prior examination dated 02/19/2018. FINDINGS: Hyperinflation. Scattered calcified granulomas. There is no demonstrated pleural abnormality. Normal size heart. Normal mediastinum and ngoc. Normal visualized pulmonary arteries. There is atherosclerotic tortuosity of the aortic arch and descending thoracic aorta. There are diffuse degenerative changes of the visualized thoracic spine. Normal visualized ribs, clavicles, and shoulders. Prior cholecystectomy. RAD/Chest PA and Lateral IMPRESSION: Hyperinflation. No acute abnormality is seen. Electronically Signed: Bob Oro MD at 12:56 EST , Service support ,
[2020-04-14 09:10] LABS: Absolute Lymphocyte Count 1.46 X10^3/uL (0.83-4.51); Basophil# 0.09 X10^3/uL; Basophil% 1.4 % (0-1); Eosinophil# 0.24 X10^3/uL; Eosinophils% 3.8 % (0-5); Hematocrit 54.5 % (37-47); Hemoglobin 16.5 g/dL (12.0-15.0); Lymphocyte # 1.46 X10^3/ul (4.0); Lymphocyte % 23.3 % (19-41); Mean Corp Hgb Conc 30.3 g/dL (32-36); Mean Corpuscular Hgb 25.9 pg (27.0-32.0); Mean Corpuscular Volume 85.7 fL (81-99); Mean Platelet Vol. 11.5 fl (6.2-12.0); Monocyte# 0.48 X10^3/uL; Monocyte% 7.7 % (0-10); NRBC Flagged by Analyzer 0 % (0-5); Neutrophil # 3.98 X10^3/uL (2.7-7.7); Neutrophil % 63.5 % (47-70); Platelet Count 231 K/mm3 (150-450); RBC Distribution Width CV 14.2 % (11.6-14.6); RBC Distribution Width SD 44.4 fl (35.1-43.9); Red Blood Count 6.36 M/mm3 (4.2-5.4); White Blood Count 6.3 K/mm3 (4.4-11.0)
[2020-04-14 09:19] LABS: Prothrombin Time (Protime)PT. 12.5 SECONDS (11.7-14.9)
[2020-04-14 09:20] LABS: Partial Thromboplast Time 22.5 Seconds (24.1-36.2)
[2020-04-14 09:30] LABS: Hemoglobin A1c 5.9 % (3.8-5.6)
[2020-04-14 09:41] LABS: Anion Gap 4 (5-15); BUN 16 mg/dL (7-18); BUN/Creat Ratio 19.5 RATIO (10-20); Calcium,Total 9.3 mg/dL (8.5-10.1); Chloride 96 mmol/L (98-107); Creatinine, Serum 0.82 mg/dL (0.55-1.02); EST Glomerular Filtration Rate 75 mL/min (>60); Est Glom Filt Rate - Afr Amer 90 mL/min (>60); Glucose 99 mg/dL (74-106); Potassium 3.6 mmol/L (3.5-5.1); Sodium Level 134 mmol/L (136-145)
[2020-04-27] VITALS (18 sets, daily range): BP systolic 100–166; BP diastolic 49–76; PULSE 76–110; RESP 15–18; TEMP 36.3–37.2; O2SAT 92–98; BMI 38.2
--- NOTE | 2020-04-27 11:15 | RAD_ITS ---
HISTORY: L3-4 laminectomy. Comparison study is an MRI of the lumbar spine from July 26, 2019. Dorsal plate devices are present at the level of the L4 spinous process of the L3-L4 interspace. Trace anterior subluxation of L4 on L5 is similar to the MRI. Solitary spot fluoroscopic intraoperative image. RAD/Spine 1 View Any Level IMPRESSION: Localization of the L4 spinous process of the L3-L4 interspace. at 0658 Reported and signed by: Naveed Garcia MD Electronically Signed: Naveed Garcia MD at 6:57 EST Tel , Service support ,
--- NOTE | 2020-04-27 11:23 | PCM.DC.ORTHO ---
Discharge Diet: No Restrictions Discharge Activity: - - No bending, twisting, or lifting greater than 5 pounds May shower in (days): 1 - [place] dressing applied to incision when showering May resume sexual activity in: 3 weeks Weight Bearing Status: Weight bearing as tolerated Call your doctor if your incision/area has: Continuous Slow Oozing, Sudden Increased Bleeding, Increased Pain/ Swelling, Increased Redness, Foul Smelling Discharge, Swelling at the incision site Call your doctor if you observe: Fever of 101 or Higher, Coldness, Increased Pain, Numbness or Tingling, Change in Color, Inability to urinate, Inability to have a bowel movement, Using more than one pad per hour, Shortness of breath, Dizziness, Fainting spells, Swelling in the ankles, Chest pain, Prolonged hiccoughing, Increased palpitations (irregular heartbeat), Calf discomfort, Uncontrolled pain Change Dressing in (Days):: 1 - Daily dressing changes with iodine to incision Allergies/Adverse Reactions: Allergies prednisone Allergy (Verified 04/27/20 10:38) Itching acetaminophen [From Darvocet-N] Adverse Reaction (Severe, Verified 04/27/20 10:38) GI upset hydrocodone [From Vicodin] Adverse Reaction (Severe, Verified 04/27/20 10:38) GI upset propoxyphene [From Darvocet-N] Adverse Reaction (Severe, Verified 04/27/20 10:38) GI upset cortisone Adverse Reaction (Intermediate, Verified 04/27/20 10:38) Unknown Medications to take at Discharge oxycodone-acetaminophen 5 mg-325 mg tablet 1 tab PO .Q4-6H PRN tab 07/02/17 gabapentin 300 mg capsule 300 mg PO TID 10/13/18 pantoprazole 40 mg tablet,delayed release 40 mg PO DAILY 10/13/18 ropinirole 0.5 mg tablet 0.5 mg PO .0600, 1400 10/13/18 cephalexin 250 mg tablet 250 mg PO DAILY tab 09/23/19 cyclobenzaprine 10 mg tablet 10 mg PO PRN PRN 09/23/19 fluoxetine 40 mg capsule 40 mg PO DAILY cap 09/23/19 oxybutynin chloride 5 mg tablet,extended release 24 hr 10 mg PO DAILY 09/23/19 sotalol 80 mg tablet 80 mg PO BID #180 tab 09/23/19 Hydrochlorothiazide [Hctz] 25 mg PO DAILY 04/13/20 Latanoprost 0.005% [Xalatan Opthalmic] 1 drp EACH EYE QHS 04/13/20 Ropinirole HCl 1 mg PO QHS 04/13/20 Oxycodone HCl/Acetaminophen [Percocet 5/325] 1 - 2 tab PO Q6H PRN PRN 7 Days #56 tab 04/27/20 The following prescriptions were given: Oxycodone HCl/Acetaminophen [Percocet 5/325] 1 - 2 tab PO Q6H PRN PRN 7 Days #56 tab PRN Reason: Pain Transmission Status: Received by [facility] Primary Care Physician: Matthew Wallace DO [Primary Care Provider] - Test Results: Test results from this visit will be discussed in further detail at your follow-up appointment, if applicable. Please Follow Up With: Francisco Santos DO - 3 weeks
[2020-04-27] MEDS: Lactated Ringers 1,000 ML 100 ML IV ×3 (11:26→16:00)
[2020-04-27] MEDS: Cefazolin 2 GM in 0.9% Normal Saline 100 ML IV (11:28)
[2020-04-27] MEDS: Thrombin 5,000 IU Kit (PSA) 5,000 IU Vial 5000 IU (12:00)
[2020-04-27] MEDS: Bupivacaine 0.25% 30 ML Vial (15:15)
--- NOTE | 2020-04-27 15:32 | OP.PCM_ITS ---
Problem List (1) Lumbar stenosis without neurogenic claudication Status: Acute Report of Operation Date of Procedure: 04/27/20 Pre-Operative Diagnosis: 1. Lumbar stenosis, L3-4, L4-5 with spondylosis. 2. Lumbar degenerative disc disease, L3-4, L4-5 Post-Operative Diagnosis: 1. Lumbar stenosis, L3-4, L4-5 with spondylosis. 2. Lumbar degenerative disc disease, L3-4, L4-5 Surgery/Procedure Performed:: 1. L3 bilateral laminectomies, foraminotomies, decompression of bilateral L3 nerve roots. 2. L4 bilateral laminectomies, foraminotomies, decompression of bilateral L4 nerve roots. Description of Surgical Findings:: STATEMENT OF MEDICAL NECESSITY: The patient is a 64-year-old female with intractable back and leg pain. Image studies confirm above diagnosis. She has failed conservative treatment to include: medicine, therapy, and injections. The patient opted for operative intervention, understanding the risks to include, but not limited to infection, bleeding, damage to nerves, arteries, and veins, possibility of spinal fluid leak, continued pain, need for further surgery, deep vein thrombosis, pulmonary embolism, heart attack, risk of stroke, or . DESCRIPTION OF PROCEDURE: The patient's identity was confirmed by the patient, staff, anesthesia, and the surgeon. She was given preoperative antibiotics, Ancef, then the patient was transferred to the [facility] operating table in the prone position. All bony prominences were padded accordingly. The lumbar spine was prepped and draped in standard surgical fashion. Harvey huggers were not turned on until drapes were placed and sealed with Ioban. A Midline incision was made and taken down to the lumbodorsal fascia. This was divided and subperiosteal dissection taken down to the level of facet joints. Deep ret ractors were placed. We began with the Misonix bone scalpel, then a series of rongeurs and Kerrisons removing the spinous process and lamina at L3, and L4. Then, foraminotomies were performed decompressing bilateral the L3 and L4 nerve roots. The incision was then thoroughly irrigated. Tissel was placed over the dura as a hemostatic agent. A deep drain was placed. Fascia was closed with #1 Vicryl, subcutaneous with 2-0 Vicryl, and skin with 2-0 nylon. Sterile dressing was applied with 4 x 4, ABD, and tape. Sponge, instrument, and needle counts were correct at the end of the case. The patient was extubated, taken to PACU without incident. Type of Anesthesia:: General Specimen's removed: none Drains: hemavac Estimated Blood Loss (mL): 100 Fluids Replaced: 2000 - Complications none - Admit VTE Documentation VTE Present on Admission: No VTE Mechan Device Prophylaxis: SCD's, Knee High SHARIF Hose
--- NOTE | 2020-04-27 15:34 | PCM.PN.HOSP ---
Patient Problems: Active and Suspected Problems (Last Reviewed 09/23/19 @ 16:[address] Andrew Keane MD) Lumbar stenosis without neurogenic claudication (Acute) Subjective: 64-year-old female presenting to the hospital for an elective surgery for her lumbar stenosis with spondylosis and degenerative disc disease. She underwent bilateral laminectomies and foraminotomies as well as decompression of her bilateral nerve roots on L3-4. She states that the pain that caused her to need surgery has resolved after surgery. She states that she has been in her general health prior to admission and has no complaints otherwise. She currently feels fine however while in PACU it was thought by anesthesia that she went into an 8 run beat of V. tach and therefore she was transitioned to the PCU with a cardiology consult. Heart rate is currently normal and she is on 2 L nasal cannula. She denies any chest pain or lightheadedness or dizziness. Vitals/I&O's: Vital Signs Temp Pulse Resp BP Pulse Ox 98.8 F 76 16 130/68 H 98 04/27/20 10:42 04/27/20 10:42 04/27/20 10:42 04/27/20 10:42 04/27/20 10:42 Oxygen Delivery Method Room Air Weight: 266 lb 12.149 oz Body Mass Index (BMI) 38.2 Intake and Output for Last 24 Hours 04/25/20 04/26/20 04/27/20 23:59 23:59 23:59 Output Total 900 / 900 Balance -900 / -900 General: Alert, Oriented x3, Cooperative, No apparent distress HEENT: Atraumatic, PERRLA, EOMI, Normocephalic Oral: Moist Mucosa Neck: Supple, No JVD Lungs: Clear to auscultation, Normal air movement, No rhonchi, No wheeze, No rales, Diminished Cardiovascular: Regular rate, Regular Rhythm, Normal S1, Normal S2, No murmurs Abdomen: Soft, Non Tender, Non-Distended, No Hepato-splenomegaly Extremities: No edema, Capillary Refill Less than 3 Seconds Skin: No rashes, No breakdown Neurological: Neuro grossly intact, Sensory exam intact to light touch and pain Psych/Mental Status: Normal Affect, Appropriate Microbiology Past 72 Hours 04/26/20 08:30 Interface Orders SARS-CoV-2 Antigen (Rapid) - Final Current Medications Lactated Ringer's () 1,000 mls @ 100 mls/hr IV .Q10H VALERIE Last Admin: 04/27/20 11:26 Dose: 100 mls/hr Documented by: Medical Necessity - Tobacco Use Smoking Status: Former smoker Tobacco Use: Non-smoker Assessment/Plan All Active Problems (Last Reviewed 09/23/19 @ 16:[address] Andrew Keane MD) Lumbar stenosis without neurogenic claudication (Acute) Dyspnea (Acute) History of pulmonary embolus (PE) (Resolved 04/09/18) Acute pulmonary embolism (Resolved) 1. Status post laminectomies and foraminotomies L3-L4 on 04/27/2020 -Pain management per primary -PT/OT -Discussed with her that she will need to use incentive spirometer to try to wean herself off of oxygen -Continue with her Flexeril as well as oxycodone and as needed morphine -Maintain Ancef while she has a drain in 2. A wide-complex tachycardia/paroxysmal A. fib/hyperlipidemia/hypertension -Cardiology feels that this could potentially be an atrial tachycardia with aberrancy -She does have a history of paroxysmal A. fib -Continue with her sotalol and hydrochlorothiazide -We will continue to monitor her on telemetry -Per cardiology, no anticoagulation at this time -Her magnesium was 1.7 was replaced by cardiology -Echo in a.m. 3. Anxiety/depression -Stable -Continue with Prozac 4. GERD -Stable -Continue with PPI DVT: SCDs OBSV E&M: [id number] Subsequent observation care L3
--- NOTE | 2020-04-27 15:44 | PCM.PN.ORT ---
Patient Problems: Active and Suspected Problems (Last Reviewed 09/23/19 @ 16:[address] Andrew Keane MD) Lumbar stenosis without neurogenic claudication (Acute) Subjective: The patient was seen and examined in the PACU. She is resting comfortably. Her pain is controlled. She has no complaints. - Physical Exam Vitals/I&O's: Vital Signs Temp Pulse Resp BP Pulse Ox 98.8 F 76 16 130/68 H 98 04/27/20 10:42 04/27/20 10:42 04/27/20 10:42 04/27/20 10:42 04/27/20 10:42 Oxygen Delivery Method Room Air Weight: 266 lb 12.149 oz Body Mass Index (BMI) 38.2 Intake and Output for Last 24 Hours 04/25/20 04/26/20 04/27/20 23:59 23:59 23:59 Intake Total 110 / 110 Output Total 900 / 900 Balance -790 / -790 General: Alert, Oriented x3, Cooperative, No apparent distress HEENT: PERRLA, EOMI Neck: Supple, No JVD Lungs: Normal air movement Cardiovascular: Regular rate Abdomen: Soft, Non Tender Extremities: No cyanosis, No edema, Capillary Refill Less than 3 Seconds, No Calf Tenderness Skin: - - Dressing clean dry and intact. Drain in place and functioning Neurological: Cranial nerves II-XII grossly intact, Deep Tendon Reflexes 2+/4 and Symmetrical, Neuro grossly intact, Motor Exam 5/5 strength throughout Psych/Mental Status: Normal Affect, Appropriate Microbiology Past 72 Hours 04/26/20 08:30 Interface Orders SARS-CoV-2 Antigen (Rapid) - Final Current Medications Lactated Ringer's () 1,000 mls @ 100 mls/hr IV .Q10H VALERIE Last Admin: 04/27/20 11:26 Dose: 100 mls/hr Documented by: Medical Necessity - Tobacco Use Smoking Status: Former smoker Tobacco Use: Non-smoker Assessment/Plan All Active Problems (Last Reviewed 09/23/19 @ 16:[address] Andrew Keane MD) Lumbar stenosis without neurogenic claudication (Acute) Dyspnea (Acute) History of pulmonary embolus (PE) (Resolved 04/09/18) Acute pulmonary embolism (Resolved) Admit to floor, see orders Pain control and activity as tolerated Continue antibiotics until drain is out
--- NOTE | 2020-04-27 16:08 | EKG12_ITS ---
Test Reason : Blood Pressure : / mmHG Vent. Rate : 110 BPM Atrial Rate : 110 BPM P-R Int : 168 ms QRS Dur : 094 ms QT Int : 358 ms P-R-T Axes : 030 -06 138 degrees QTc Int : 484 ms Sinus tachycardia Left ventricular hypertrophy with repolarization abnormality Inferior infarct , age undetermined Anterior infarct , age undetermined Abnormal ECG Confirmed by SIMEON RICK, JULEE ([id number]), builder operator JOSELUIS MELLO ([id number]) on 05/01/2020 11:02:37 AM Referred By: Francisco Santos Confirmed By:JULEE HENDRIX MD
--- NOTE | 2020-04-27 16:23 | EKG12_ITS ---
Test Reason : Blood Pressure : / mmHG Vent. Rate : 158 BPM Atrial Rate : 159 BPM P-R Int : 000 ms QRS Dur : 142 ms QT Int : 324 ms P-R-T Axes : 000 -39 140 degrees QTc Int : 525 ms Wide QRS tachycardia Left axis deviation Left bundle branch block Abnormal ECG Confirmed by SIMEON RICK, JULEE ([id number]), society editor JOSELUIS MELLO ([id number]) on 05/01/2020 11:03:02 AM Referred By: Francisco Santos Confirmed By:JULEE HENDRIX MD
[2020-04-27 17:09] LABS: ALB/GLOB Ratio 0.9 RATIO (0.9-2.4); AST(SGOT) 33 U/L (15-37); Alanine Aminotransfer ALT/SGPT 42 U/L (13-56); Albumin, Serum 3.2 g/dL (3.2-5.0); Alkaline Phosphatase 57 U/L (45-117); Anion Gap 5 (5-15); BUN 11 mg/dL (7-18); BUN/Creat Ratio 13.5 RATIO (10-20); Calcium,Total 8.6 mg/dL (8.5-10.1); Chloride 104 mmol/L (98-107); Creatinine, Serum 0.81 mg/dL (0.55-1.02); EST Glomerular Filtration Rate 75 mL/min (>60); Est Glom Filt Rate - Afr Amer 91 mL/min (>60); Estimated Creatinine Clearance 75.88 ml/min; Globulin 3.4 g/dL (2.2-4.2); Glucose 158 mg/dL (74-106); Magnesium 1.7 mg/dL (1.6-2.6); Potassium 4.1 mmol/L (3.5-5.1); Protein, Total 6.6 g/dL (6.4-8.2); Sodium Level 138 mmol/L (136-145)
--- NOTE | 2020-04-27 17:20 | CON.PCM_ITS ---
Reason for Consult Date of Consultation: 04/27/20 Reason for Consultation: Abnormal cardiac rhythm History of Present Illness: The patient is a 64 year old F with a history of hypertension and paroxysmal atrial fibrillation who presented for back surgery today. She apparently had been in her normal state of health denying any chest pain or shortness of breath or paroxysmal nocturnal dyspnea or pedal edema she has had no neck arm or jaw discomfort suggest angina she has been compliant with all her medications. She did have blood work done almost 2 weeks ago which had demonstrated a potassium of 3.6. Today she underwent back surgery and postoperatively was noted to have short runs of a wide-complex tachycardia. She initially had an 8 beat run and then subsequently had a long enough run to be called on twelve-lead EKG. She was completely asymptomatic. She has no known previous coronary artery disease and had previous echocardiogram done demonstrated preserved ejection fraction. [] Past Medical History Allergies/Adverse Reactions: Allergies prednisone Allergy (Verified 04/27/20 10:38) Itching acetaminophen [From Darvocet-N] Adverse Reaction (Severe, Verified 04/27/20 10:38) GI upset hydrocodone [From Vicodin] Adverse Reaction (Severe, Verified 04/27/20 10:38) GI upset propoxyphene [From Darvocet-N] Adverse Reaction (Severe, Verified 04/27/20 10:38) GI upset cortisone Adverse Reaction (Intermediate, Verified 04/27/20 10:38) Unknown Home Medications: Ambulatory Orders Medication Instructions Recorded oxycodone-acetaminophen 5 mg-325 1 tab PO .Q4-6H PRN tab 07/02/17 mg tablet gabapentin 300 mg capsule 300 mg PO TID 10/13/18 pantoprazole 40 mg tablet,delayed 40 mg PO DAILY 10/13/18 release ropinirole 0.5 mg tablet 0.5 mg PO .0600, 1400 10/13/18 cephalexin 250 mg tablet 250 mg PO DAILY tab 09/23/19 cyclobenzaprine 10 mg tablet 10 mg PO PRN PRN 09/23/19 fluoxetine 40 mg capsule 40 mg PO DAILY cap 09/23/19 oxybutynin chloride 5 mg 10 mg PO DAILY 09/23/19 tablet,extended release 24 hr sotalol 80 mg tablet 80 mg PO BID #180 tab 09/23/19 Hydrochlorothiazide [Hctz] 25 mg PO DAILY 04/13/20 Latanoprost 0.005% [Xalatan 1 drp EACH EYE QHS 04/13/20 Opthalmic] Ropinirole HCl 1 mg PO QHS 04/13/20 Oxycodone HCl/Acetaminophen 1 - 2 tab PO Q6H PRN PRN 7 Days 04/27/20 [Percocet 5/325] #56 tab Past Medical History (Chronic Problems): Chronic Problems (Last Reviewed 09/23/19 @ 16:[address] Andrew Keane MD) Palpitations (Chronic) Paroxysmal atrial fibrillation (Chronic) Essential (primary) hypertension (Chronic) Hyperlipidemia (Chronic) Surgical History: - - Tonsillectomy, cholecystectomy, craniotomy for meningioma, partial thyroid resection for thyroid goiter. Psychiatric History: Anxiety, Depression BAR HOSTESS History: No pertinent BAR HOSTESS history - *Family History Maternal Family History: Family History (Last Reviewed 09/23/19 @ 16:[address] Andrew Keane MD) Mother CAD (coronary artery disease) Myocardial infarction Father Hypertension Brother CAD (coronary artery disease) History Items: - Paternal Family History: Family History (Last Reviewed 09/23/19 @ 16:[address] Andrew Keane MD) Mother CAD (coronary artery disease) Myocardial infarction Father Hypertension Brother CAD (coronary artery disease) History Items: Hypertension Smoking Status: Former smoker Tobacco Use: Non-smoker Alcohol: None Drugs: None Review of Systems - Review of Systems General: Denies: Fever, Night Sweats, Fatigue HEENT: Denies: Vision Change Cardiovascular: Denies: Chest Discomfort, Shortness of Breath, Orthopnea, PND, Peripheral Edema, Palpitations, Lightheadedness, Dizziness, Near Syncope, Syncope Respiratory: Denies: Cough, Sputum Production, Hemoptysis Gastrointestinal: Denies: Hematemesis, Hematochezia, Melena Genitourinary: Denies: Dysuria, Hematuria Skin: Denies: Rash Neurological: Denies: Dizziness Psychiatric: Denies: Anxiety Subjectve: Pleasant lady in no distress seen postop in the PACU Objective: Vital Signs Temp Pulse Resp BP Pulse Ox 98.9 F 105 H 16 116/58 L 93 04/27/20 15:42 04/27/20 17:15 04/27/20 17:15 04/27/20 17:15 04/27/20 17:15 Oxygen Flow Rate (L/min) 2 Oxygen Delivery Method Nasal Cannula Weight: 266 lb 12.149 oz Body Mass Index (BMI) 38.2 Intake and Output for Last 24 Hours 04/25/20 04/26/20 04/27/20 23:59 23:59 23:59 Intake Total 2110 / 2110 Output Total 900 / 900 Balance 1210 / 1210 General: Awake, Alert, Oriented x 3 HEENT: PERRL, EOMI, Sclera Non Icteric Neck: Supple, Good ROM, No Lymph Node Enlargement Lungs: Clear to auscultation Cardiovascular: Regular Rhythm, Normal S1, Normal S2, No Murmurs, No Rubs, No Gallops Vascular: No Carotid Bruits, Normal Femoral Pulses, Normal Radial Pulses, Normal Dorsalis Pedal Pulse, Normal Posterior Tibial Pulses Abdomen: Bowel Sounds Present, Soft, Non Tender, No HSM, No Organomegaly Extremities: No Cyanosis, No Clubbing, No edema Musculoskeletal: No Erythema Skin: No Rashes Lymphatic: No Lymph Node Enlargement Neurological: No Focal Motor or Sensory Deficit Psych/Mental Status: Appropriate 04/27/20 16:28: Troponin I < 0.015 04/27/20 16:28: Sodium 138, Potassium 4.1, Chloride 104, Carbon Dioxide 29.0, Anion Gap 5, BUN 11, Creatinine 0.81, Est GFR (MDRD) Af Amer 91, Est GFR (MDRD) Non-Af 75, BUN/Creatinine Ratio 13.5, Glucose 158 H, Calcium 8.6, Magnesium 1.7, Total Bilirubin 1.00 Rhythm: EKG: Wide-complex tachycardia with a rate of approximately 138 bpm. Atrial flutter with 2-1 and aberrancy cannot be completely excluded. ECHO: Stress Test: Cardiac Cath: PCI: CT Surgery: Holter monitor: EPS: PPM: CXR: Chest CT Scan: Assessment/Plan 1. Wide-complex tachycardia-likely atrial tachycardia with aberrancy * Would recommend obtaining echocardiogram to reassess left ventricular function * Would suggest repleting magnesium to a level of more than 2 * Continue sotalol tonight * Continue telemetry monitoring * Depending on the findings of the above tests further recommendations will be made. * 2. Hypertension * Good control on the current medical therapy * 3. Paroxysmal atrial fibrillation * Patient has been maintaining sinus rhythm on the current medical therapy. * I would not recommend anticoagulation at this present time. * * Thank you for allowing me to participate in the care of your patient. Please don't hesitate to call if any issues arise.
--- NOTE | 2020-04-27 17:27 | ECHOCS_ITS ---
Reason For Study: ARRHYTHMIA Procedure This was a 2D Doppler, Color Flow transthoracic echocardiogram. The study was technically difficult. Due to body habitus. Contrast injection was performed. Exam performed portable in patient room. Left Ventricle Normal LV size. Left ventricular systolic function is normal. The estimated ejection fraction is 65 %. Stage 1 diastolic dysfunction. No regional wall motion abnormalities noted. Right Ventricle Normal RV size. Normal systolic function. Atria The left atrium is mildly enlarged. Normal right atrium. Mitral Valve Normal mitral valve. Tricuspid Valve Normal tricuspid valve. Mild tricuspid valve insufficiency. Pulmonary artery systolic pressure is 23 mmHg. Aortic Valve Normal aortic valve. Pulmonic Valve The pulmonic valve is not well visualized. Great Vessels Normal aortic root. The pulmonary artery is normal size. Normal inferior vena cava. Pericardium/Pleural No pericardial effusion. Medication Diluted definity 4.0ml given slow IV push to enhance endocardial definition. MMode/2D Measurements & Calculations LVIDd: 4.5 cm IVSd: 1.1 cm Ao root diam: 3.0 cm LVIDs: 3.1 cm LVPWd: 1.1 cm FS: 31.7 % LAV(MOD-bp): 58.5 ml LA A4 area: 21.0 cm2 LA dimension(2D): 3.6 cm LAV(MOD-bp) Indexed: 24.8 ml/m2 LAV(MOD-sp2): 48.8 ml LAV(MOD-sp4): 64.5 ml RA A4 area: 15.4 cm2 Time Measurements MV dec time: 0.21 sec Doppler Measurements & Calculations MV E max kurt: 57.4 cm/sec Lat Peak E' Kurt: 8.7 cm/sec Med Peak E' Kurt: 8.0 cm/sec MV A max kurt: 65.2 cm/sec E/E' lat: 6.6 E/E' med: 7.2 MV E/A: 0.88 Ao V2 max: 159.7 cm/sec LV V1 max: 100.3 cm/sec PA V2 max: 117.7 cm/sec Ao max P.2 mmHg LV V1 max P.0 mmHg TR max kurt: 216.5 cm/sec TR max P.7 mmHg Interpretation Summary Normal LV size. Left ventricular systolic function is normal. The estimated ejection fraction is 65 %. Pulmonary artery systolic pressure is 23 mmHg. Stage 1 diastolic dysfunction. Contrast injection was performed. Ordering Physician: Andrew Keane Referring Physician: Francisco Santos Performed By: Gloria Scott RDCS, RVT
[2020-04-27] MEDS: Ensure Surgery 237 ML LIQUID PO (19:15)
[2020-04-27] MEDS: oxyCODONE 5 MG Tablet PO (20:24)
[2020-04-27] MEDS: Cefazolin 1 GM/50 ML BAG IV (20:59)
[2020-04-27] MEDS: Sotalol Hydrochloride 80 MG Tablet PO (22:14)
[2020-04-27] MEDS: Pramipexole Di-HCl 0.5 MG Tablet PO (22:14)
[2020-04-27] MEDS: Gabapentin 300 MG Capsule PO (22:15)
[2020-04-28] VITALS (12 sets, daily range): BP systolic 99–109; BP diastolic 44–80; PULSE 65–85; RESP 15–18; TEMP 36.7–36.8; O2SAT 91–100; BMI 38.3
[2020-04-28] MEDS: oxyCODONE 5 MG Tablet PO ×3 (00:34→16:07)
[2020-04-28] MEDS: Lactated Ringers 1,000 ML 100 ML IV (02:19)
[2020-04-28] MEDS: Cefazolin 1 GM/50 ML BAG IV ×2 (03:08→11:17)
[2020-04-28] MEDS: Pramipexole Di-HCl 0.25 MG Tablet PO ×2 (06:31→11:22)
[2020-04-28 06:55] LABS: Absolute Lymphocyte Count 1.01 X10^3/uL (0.83-4.51); Absolute Neutrophil Count 9.8 X10^3/uL (2.0-7.7); Basophil# 0.02 X10^3/uL; Basophil% 0.2 % (0-1); Hematocrit 41.4 % (37-47); Hemoglobin 12.8 g/dL (12.0-15.0); Lymphocyte # 1.01 X10^3/ul (4.0); Lymphocyte % 8.7 % (19-41); Mean Corp Hgb Conc 30.9 g/dL (32-36); Mean Corpuscular Hgb 26.7 pg (27.0-32.0); Mean Corpuscular Volume 86.3 fL (81-99); Mean Platelet Vol. 10.8 fl (6.2-12.0); Monocyte# 0.83 X10^3/uL; Monocyte% 7.1 % (0-10); NRBC Flagged by Analyzer 0 % (0-5); Neutrophil # 9.76 X10^3/uL (2.7-7.7); Neutrophil % 83.7 % (47-70); Platelet Count 222 K/mm3 (150-450); RBC Distribution Width CV 13.9 % (11.6-14.6); RBC Distribution Width SD 44.4 fl (35.1-43.9); White Blood Count 11.7 K/mm3 (4.4-11.0)
[2020-04-28 07:26] LABS: Anion Gap 4 (5-15); BUN 10 mg/dL (7-18); BUN/Creat Ratio 12.9 RATIO (10-20); Calcium,Total 8.5 mg/dL (8.5-10.1); Chloride 103 mmol/L (98-107); Creatinine, Serum 0.78 mg/dL (0.55-1.02); EST Glomerular Filtration Rate 79 mL/min (>60); Est Glom Filt Rate - Afr Amer 96 mL/min (>60); Estimated Creatinine Clearance 78.79 ml/min; Glucose 136 mg/dL (74-106); Magnesium 2.1 mg/dL (1.6-2.6); Potassium 3.8 mmol/L (3.5-5.1); Sodium Level 137 mmol/L (136-145)
--- NOTE | 2020-04-28 07:33 | PCM.PN.ORT ---
Patient Problems: Active and Suspected Problems (Last Reviewed 09/23/19 @ 16:[address] Andrew Keane MD) Lumbar stenosis without neurogenic claudication (Acute) Subjective: The patient was seen and examined. She is doing very well. She is resting comfortably in bed and her pain is controlled. She denies any complaints including numbness, tingling, weakness, chest pain or shortness of breath. She has been out of bed and mobilizing. Her Jalloh catheter has been removed. The patient had a short run of wide-complex tachycardia postop in the PACU. She was admitted to the progressive care unit and placed on telemetry monitoring. She has so far been stable. She is scheduled for an echocardiogram today. - Physical Exam Vitals/I&O's: Vital Signs Temp Pulse Resp BP Pulse Ox 98.2 F 74 15 109/51 L 95 04/28/20 05:34 04/28/20 05:34 04/28/20 05:34 04/28/20 05:34 04/28/20 05:34 Oxygen Flow Rate (L/min) 1 Oxygen Delivery Method Nasal Cannula Weight: 266 lb 12.149 oz Body Mass Index (BMI) 38.2 Intake and Output for Last 24 Hours 04/26/20 04/27/20 04/28/20 23:59 23:59 23:59 Intake Total 2264 / 2664 2463.33 / 2463.33 Output Total 1160 / 1580 1530 / 1530 Balance 1104 / 1084 933.33 / 933.33 General: Alert, Oriented x3, Cooperative, No apparent distress HEENT: PERRLA, EOMI Neck: Supple, No JVD Lungs: Normal air movement Cardiovascular: Regular rate Abdomen: Soft, Non Tender Extremities: No cyanosis, No edema, Capillary Refill Less than 3 Seconds, No Calf Tenderness Skin: - - Dressing clean dry and intact. Drain in place and functioning. 80 cc output over the past 12 hours per the nurse. Neurological: Cranial nerves II-XII grossly intact, Deep Tendon Reflexes 2+/4 and Symmetrical, Neuro grossly intact, Motor Exam 5/5 strength throughout Psych/Mental Status: Normal Affect, Appropriate Microbiology Past 72 Hours 04/26/20 08:30 Interface Orders SARS-CoV-2 Antigen (Rapid) - Final Laboratory Results 04/27/20 16:28: Troponin I < 0.015 04/27/20 16:28: Sodium 138, Potassium 4.1, Chloride 104, Carbon Dioxide 29.0, Anion Gap 5, BUN 11, Creatinine 0.81, Estim Creat Clear Calc 75.88, Est GFR (MDRD) Af Amer 91, Est GFR (MDRD) Non-Af 75, BUN/Creatinine Ratio 13.5, Glucose 158 H, Calcium 8.6, Magnesium 1.7, Total Bilirubin 1.00, AST 33, ALT 42, Alkaline Phosphatase 57, Total Protein 6.6, Albumin 3.2, Globulin 3.4, Albumin/Globulin Ratio 0.9 04/28/20 06:16: WBC 11.7 H, RBC 4.80, Hgb 12.8, Hct 41.4, MCV 86.3, MCH 26.7 L, MCHC 30.9 L, RDW Std Deviation 44.4 H, RDW Coeff of Laura 13.9, Plt Count 222, MPV 10.8, Immature Gran % (Auto) 0.300, Neut % (Auto) 83.7 H, Lymph % (Auto) 8.7 L, [place] % (Auto) 7.1, Eos % (Auto) 0.0, Baso % (Auto) 0.2, Absolute Neuts (auto) 9.8 H, Absolute Lymphs (auto) 1.01, Nucleated RBC % 0 04/28/20 06:16: Sodium 137, Potassium 3.8, Chloride 103, Carbon Dioxide 30.0, Anion Gap 4 L, BUN 10, Creatinine 0.78, Estim Creat Clear Calc 78.79, Est GFR (MDRD) Af Amer 96, Est GFR (MDRD) Non-Af 79, BUN/Creatinine Ratio 12.9, Glucose 136 H, Calcium 8.5, Magnesium 2.1 Current Medications Cyclobenzaprine HCl (Cyclobenzaprine Hcl 10 Mg Tablet) 10 mg PO TID PRN PRN Reason: MUSCLE RELAXANT Enteral Nutritional Formula (Ensure Surgery 237 Ml Liquid) 237 ml PO TIDCM [facility] Last Admin: 04/27/20 19:16 Dose: Not Given Documented by: Fluoxetine HCl (Fluoxetine 20 Mg Capsule) 40 mg PO DAILY VALERIE Gabapentin (Gabapentin 300 Mg Capsule) 300 mg PO TIDCM [facility] Last Admin: 04/27/20 22:15 Dose: 300 mg Documented by: Hydrochlorothiazide (Hydrochlorothiazide 25 Mg Tablet) 25 mg PO DAILY [facility] Lactated Ringer's () 1,000 mls @ 100 mls/hr IV .Q10H [facility] Last Infusion: 04/28/20 05:15 Dose: 0 mls/hr Documented by: Cefazolin Sodium () 1 gm in 50 mls @ 100 mls/hr IV Q8H [facility] Last Infusion: 04/28/20 03:38 Dose: Infused Documented by: Morphine Sulfate (Morphine 4 Mg/Ml Syringe) 2 - 4 mg IV Q2H PRN PRN PRN Reason: Pain Score 6-10 Morphine Sulfate (Morphine 2 Mg/Ml Syringe) 2 - 4 mg IV Q2H PRN PRN PRN Reason: Pain Score 6-10 Oxycodone HCl (Oxycodone 5 Mg Tablet) 2.5 - 5 mg PO Q4H PRN PRN PRN Reason: Pain Score 6-10 Last Admin: 04/28/20 00:34 Dose: 5 mg Documented by: Pantoprazole Sodium (Pantoprazole Sodium 40 Mg Tablet) 40 mg PO DAILY [facility] Pramipexole Dihydrochloride (Pramipexole Di-Hcl 0.5 Mg Tablet) 0.5 mg PO QHS [facility] Last Admin: 04/27/20 22:14 Dose: 0.5 mg Documented by: Pramipexole Dihydrochloride (Pramipexole Di-Hcl 0.25 Mg Tablet) 0.25 mg PO 0600,1400 [facility] Last Admin: 04/28/20 06:31 Dose: 0.25 mg Documented by: Sodium Chloride (0.9% Saline Lock 10 Ml Syringe) 10 - 40 ml IV UD PRN PRN Reason: SALINE FLUSH Sotalol HCl (Sotalol Hydrochloride 80 Mg Tablet) 80 mg PO BID [facility] Last Admin: 04/27/20 22:14 Dose: 80 mg Documented by: Medical Necessity - Tobacco Use Smoking Status: Former smoker Tobacco Use: Non-smoker Assessment/Plan All Active Problems (Last Reviewed 09/23/19 @ 16:[address] Andrew Keane MD) Lumbar stenosis without neurogenic claudication (Acute) Dyspnea (Acute) History of pulmonary embolus (PE) (Resolved 04/09/18) Acute pulmonary embolism (Resolved) Postoperative day 1 status post L3 and L4 laminectomy decompression. The patient had a short run of wide-complex tachycardia. Scheduled for an echocardiogram today Jalloh catheter has been removed. If no urine output after 4 hours of Jalloh being removed, bladder scan. If scan is greater than 400 cc, straight cath and call Dr. Santos. Continue pain control and mobilization. Activity as tolerated. No repetitive bending twisting or lifting anything greater than 5 pounds Give last dose of antibiotics, Ancef, then okay to stop antibiotics.
[2020-04-28] MEDS: Pantoprazole Sodium 40 MG Tablet PO (08:07)
[2020-04-28] MEDS: FLUoxetine 20 MG Capsule 40 MG PO (08:07)
[2020-04-28] MEDS: Sotalol Hydrochloride 80 MG Tablet PO (08:07)
[2020-04-28] MEDS: Gabapentin 300 MG Capsule PO ×3 (08:07→16:08)
[2020-04-28] MEDS: hydroCHLOROthiazide 25 MG Tablet PO (08:10)
[2020-04-28] MEDS: Ensure Surgery 237 ML LIQUID PO ×3 (08:10→16:07)
[2020-04-28] MEDS: cycloBENZAPRine HCl 10 MG Tablet PO (15:11)
--- NOTE | 2020-04-28 17:06 | PCM.DC.SUM ---
Discharge Date and Diagnosis - Problem List Patient Problems: Active and Suspected Problems (Last Reviewed 09/23/19 @ 16:[address] Andrew Keane MD) Lumbar stenosis without neurogenic claudication (Acute) Date of Admission: 04/27/20 Date of Discharge: 04/28/20 - Primary Discharge Diagnosis Acute Problems: Active Problems (Last Reviewed 09/23/19 @ 16:[address] Andrew Keane MD) Lumbar stenosis without neurogenic claudication (Acute) - Secondary Discharge Diagnosis Chronic Problems: Chronic Problems (Last Reviewed 09/23/19 @ 16:[address] Andrew Keane MD) Palpitations (Chronic) Paroxysmal atrial fibrillation (Chronic) Essential (primary) hypertension (Chronic) Hyperlipidemia (Chronic) Hospital Course and Treatment Internal medicine for medical management. Cardiology for episode of wide complex tachycardia. Operations: None, - - Lumbar 3, lumbar 4 laminectomy Procedures: 2-D Echocardiogram Summary of Care Provided: The patient is a 64 year old F Who underwent an L3 and L4 laminectomy on 04/27/20. The surgery was uneventful. However, postoperatively in the PACU she had an episode of wide complex tachycardia. She was subsequently admitted to the progressive care unit and cardiology was consulted. She underwent an echocardiogram on 04/28/20. Her rhythm stabilized and she did not experience any other episodes of arrhythmia. The hospitalist was consulted for medical management. She progressed well with physical therapy and was mobilizing including walking the halls. Her drain was removed on 04/28/20. Her pain was well controlled. Her diet was advanced as tolerated without issue. Her Jalloh catheter was removed on postoperative day 1. 4 hours after catheter removal she underwent a bladder scan which showed 400 cc of residual urine. She was given a straight cath. Subsequently, she was urinating normally. She had no other medical issues during her stay. The medicine and cardiology service cleared her for discharge on 04/28/20. [] Patient Problems: Active and Suspected Problems (Last Reviewed 09/23/19 @ 16:[address] Andrew Keane MD) Lumbar stenosis without neurogenic claudication (Acute) Subjective: The patient was seen and examined postoperative day 1. She is resting comfortably in bed. She stood up without difficulty and her drain was removed. Her pain is well controlled and she has no complaints including numbness, tingling, weakness, chest pain, or shortness of breath. She has been out of bed and walking the halls with physical therapy and is mobilizing well. - Physical Exam Vitals/I&O's: Vital Signs Temp Pulse Resp BP Pulse Ox 98.2 F 72 18 104/58 L 100 04/28/20 14:00 04/28/20 14:51 04/28/20 14:00 04/28/20 14:00 04/28/20 14:00 Oxygen Flow Rate (L/min) 1 Oxygen Delivery Method Room Air Weight: 266 lb 12.149 oz Body Mass Index (BMI) 38.2 Intake and Output for Last 24 Hours 04/26/20 04/27/20 04/28/20 23:59 23:59 23:59 Intake Total 2264 / 2664 2513.33 / 2513.33 Output Total 1160 / 1580 3080 / 3080 Balance 1104 / 1084 -566.67 / -566.67 General: Alert, Oriented x3, Cooperative, No apparent distress HEENT: PERRLA, EOMI Neck: No JVD, Negative Carotid Bruits Lungs: Normal air movement Cardiovascular: Regular rate Abdomen: Bowel Sounds Present, Soft, Non Tender Skin: - - Drain was pulled and incision examined. Lumbar incision is well approximated with interrupted sutures In place. Minimal erythema and tenderness. No drainage or fluctuance Neurological: Cranial nerves II-XII grossly intact, Deep Tendon Reflexes 2+/4 and Symmetrical, Neuro grossly intact, Motor Exam 5/5 strength throughout Psych/Mental Status: Normal Affect, Appropriate Microbiology Past 72 Hours 04/26/20 08:30 Interface Orders SARS-CoV-2 Antigen (Rapid) - Final Laboratory Results 04/27/20 16:28: Sodium 138, Potassium 4.1, Chloride 104, Carbon Dioxide 29.0, Anion Gap 5, BUN 11, Creatinine 0.81, Estim Creat Clear Calc 75.88, Est GFR (MDRD) Af Amer 91, Est GFR (MDRD) Non-Af 75, BUN/Creatinine Ratio 13.5, Glucose 158 H, Calcium 8.6, Magnesium 1.7, Total Bilirubin 1.00, AST 33, ALT 42, Alkaline Phosphatase 57, Total Protein 6.6, Albumin 3.2, Globulin 3.4, Albumin/Globulin Ratio 0.9 04/28/20 06:16: WBC 11.7 H, RBC 4.80, Hgb 12.8, Hct 41.4, MCV 86.3, MCH 26.7 L, MCHC 30.9 L, RDW Std Deviation 44.4 H, RDW Coeff of Laura 13.9, Plt Count 222, MPV 10.8, Immature Gran % (Auto) 0.300, Neut % (Auto) 83.7 H, Lymph % (Auto) 8.7 L, [place] % (Auto) 7.1, Eos % (Auto) 0.0, Baso % (Auto) 0.2, Absolute Neuts (auto) 9.8 H, Absolute Lymphs (auto) 1.01, Nucleated RBC % 0 04/28/20 06:16: Sodium 137, Potassium 3.8, Chloride 103, Carbon Dioxide 30.0, Anion Gap 4 L, BUN 10, Creatinine 0.78, Estim Creat Clear Calc 78.79, Est GFR (MDRD) Af Amer 96, Est GFR (MDRD) Non-Af 79, BUN/Creatinine Ratio 12.9, Glucose 136 H, Calcium 8.5, Magnesium 2.1 Current Medications Cyclobenzaprine HCl (Cyclobenzaprine Hcl 10 Mg Tablet) 10 mg PO TID PRN PRN Reason: MUSCLE RELAXANT Last Admin: 04/28/20 15:11 Dose: 10 mg Documented by: Enteral Nutritional Formula (Ensure Surgery 237 Ml Liquid) 237 ml PO TIDCM [facility] Last Admin: 04/28/20 16:07 Dose: 237 ml Documented by: Fluoxetine HCl (Fluoxetine 20 Mg Capsule) 40 mg PO DAILY [facility] Last Admin: 04/28/20 08:07 Dose: 40 mg Documented by: Gabapentin (Gabapentin 300 Mg Capsule) 300 mg PO TIDCM [facility] Last Admin: 04/28/20 16:08 Dose: 300 mg Documented by: Hydrochlorothiazide (Hydrochlorothiazide 25 Mg Tablet) 25 mg PO DAILY [facility] Last Admin: 04/28/20 08:10 Dose: 25 mg Documented by: Lactated Ringer's () 1,000 mls @ 100 mls/hr IV .Q10H [facility] Last Infusion: 04/28/20 05:15 Dose: 0 mls/hr Documented by: Morphine Sulfate (Morphine 4 Mg/Ml Syringe) 2 - 4 mg IV Q2H PRN PRN PRN Reason: Pain Score 6-10 Morphine Sulfate (Morphine 2 Mg/Ml Syringe) 2 - 4 mg IV Q2H PRN PRN PRN Reason: Pain Score 6-10 Oxycodone HCl (Oxycodone 5 Mg Tablet) 2.5 - 5 mg PO Q4H PRN PRN PRN Reason: Pain Score 6-10 Last Admin: 04/28/20 16:07 Dose: 5 mg Documented by: Pantoprazole Sodium (Pantoprazole Sodium 40 Mg Tablet) 40 mg PO DAILY [facility] Last Admin: 04/28/20 08:07 Dose: 40 mg Documented by: Pramipexole Dihydrochloride (Pramipexole Di-Hcl 0.5 Mg Tablet) 0.5 mg PO QHS [facility] Last Admin: 04/27/20 22:14 Dose: 0.5 mg Documented by: Pramipexole Dihydrochloride (Pramipexole Di-Hcl 0.25 Mg Tablet) 0.25 mg PO 0600,1400 [facility] Last Admin: 04/28/20 11:22 Dose: 0.25 mg Documented by: Sodium Chloride (0.9% Saline Lock 10 Ml Syringe) 10 - 40 ml IV UD PRN PRN Reason: SALINE FLUSH Sotalol HCl (Sotalol Hydrochloride 80 Mg Tablet) 80 mg PO BID [facility] Last Admin: 04/28/20 08:07 Dose: 80 mg Documented by: Discharge Diet: No Restrictions Discharge Activity: - - No bending, twisting, or lifting greater than 5 pounds May shower in (days): 1 - [place] dressing applied to incision when showering May resume sexual activity in: 3 weeks Weight Bearing Status: Weight bearing as tolerated Additional Activity Instructions:: Wear SHARIF hose As instructed for 6 weeks. Call your doctor if your incision/area has: Continuous Slow Oozing, Sudden Increased Bleeding, Increased Pain/ Swelling, Increased Redness, Foul Smelling Discharge, Swelling at the incision site Call your doctor if you observe: Fever of 101 or Higher, Coldness, Increased Pain, Numbness or Tingling, Change in Color, Inability to urinate, Inability to have a bowel movement, Using more than one pad per hour, Shortness of breath, Dizziness, Fainting spells, Swelling in the ankles, Chest pain, Prolonged hiccoughing, Increased palpitations (irregular heartbeat), Calf discomfort, Uncontrolled pain Change Dressing in (Days):: 1 - Daily dressing changes with iodine to incision Cleanse incision/area with: Do not get Incision Wet, Keep Dressing Clean & Dry, - - Okay to shower if waterproof dressing is applied to incision. Home Medications: Medications to take at Discharge oxycodone-acetaminophen 5 mg-325 mg tablet 1 tab PO .Q4-6H PRN tab 07/02/17 gabapentin 300 mg capsule 300 mg PO TID 10/13/18 pantoprazole 40 mg tablet,delayed release 40 mg PO DAILY 10/13/18 ropinirole 0.5 mg tablet 0.5 mg PO .0600, 1400 10/13/18 cephalexin 250 mg tablet 250 mg PO DAILY tab 09/23/19 cyclobenzaprine 10 mg tablet 10 mg PO PRN PRN 09/23/19 fluoxetine 40 mg capsule 40 mg PO DAILY cap 09/23/19 oxybutynin chloride 5 mg tablet,extended release 24 hr 10 mg PO DAILY 09/23/19 sotalol 80 mg tablet 80 mg PO BID #180 tab 09/23/19 Hydrochlorothiazide [Hctz] 25 mg PO DAILY 04/13/20 Latanoprost 0.005% [Xalatan Opthalmic] 1 drp EACH EYE QHS 04/13/20 Ropinirole HCl 1 mg PO QHS 04/13/20 Oxycodone HCl/Acetaminophen [Percocet 5/325] 1 - 2 tab PO Q6H PRN PRN 7 Days #56 tab 04/27/20 Following Prescriptions Were Given to Patient: Oxycodone HCl/Acetaminophen [Percocet 5/325] 1 - 2 tab PO Q6H PRN PRN 7 Days #56 tab PRN Reason: Pain Transmission Status: Received by [facility] Primary Care Physician: Matthew Wallace DO [Primary Care Provider] - Please Follow Up With: Francisco Santos DO - 3 weeks Please Follow Up With: Andrew Keane MD - 1 week or as scheduled. Call office to schedule if needed Disposition: Home Patient Condition:: Stable Medical Necessity - Tobacco Use Smoking Status: Former smoker Tobacco Use: Non-smoker Meaningful Use Info Meaningful Use Diagnoses (Choose all that apply): None applicable
== END 2020-04-28 17:27 | disposition home or self-care (01) ==
LOC: SDC 11:41 → MS3 14:46 → PCU 17:07
PROVIDERS: Anesthesiology; Family Medicine; Admitting Provider Orthopaedic Surgery; PCP Family Medicine; Referring Provider Orthopaedic Surgery; Visit Provider Orthopaedic Surgery
PROC: (CPT 63030; principal; 2020-04-27 11:00)
DX: M48.061 Spinal stenosis, lumbar region without neurogenic claudication (principal); M51.36 Other intervertebral disc degeneration, lumbar region; M47.896 Other spondylosis, lumbar region; I47.2 Ventricular tachycardia; E78.5 Hyperlipidemia, unspecified; I10 Essential (primary) hypertension; I48.0 Paroxysmal atrial fibrillation; F41.9 Anxiety disorder, unspecified; F32.9 Major depressive disorder, single episode, unspecified; K21.9 Gastro-esophageal reflux disease without esophagitis; Z20.828 Contact with and (suspected) exposure to other viral communicable diseases; Z79.899 Other long term (current) drug therapy; Z79.82 Long term (current) use of aspirin; Z87.891 Personal history of nicotine dependence; Z86.711 Personal history of pulmonary embolism; K50.90 Crohn's disease, unspecified, without complications; G25.81 Restless legs syndrome
CPT/HCPCS: 63047; 63048; 36415; 71046; 72020; 76000; 80048; 80053; 83036; 83735; 84484; 85025; 85610; 85730; 87426; 93005; 93306; 96361; 96365; 96366; 97162; 99218; 99251; C9803; J7120; Q9957; A4216; C8929; G0378; G0379; G0463; J2405

== ENCOUNTER → 2020-05-12 10:27 | Outpatient (CLI) | payer OTHER, SELFPAY ==
[2020-05-03 13:04] VITALS: BMI 35.9
== END ==
PROVIDERS: PCP Family Medicine; Referring Provider Internal Medicine Cardiovascular Disease; Visit Provider Internal Medicine Cardiovascular Disease
DX: I48.0 Paroxysmal atrial fibrillation (principal); I47.2 Ventricular tachycardia
CPT/HCPCS: 93225; 93226

== ENCOUNTER → 2020-06-13 13:15 | Outpatient (CLI) | payer OTHER, SELFPAY ==
[2020-05-03 13:04] VITALS: BMI 35.9
[2020-06-13 15:20] LABS: Absolute Lymphocyte Count 1.68 X10^3/uL (0.83-4.51); Absolute Neutrophil Count 3.9 X10^3/uL (2.0-7.7); Basophil% 1.5 % (0-1); Eosinophil# 0.26 X10^3/uL; Hematocrit 50.3 % (37-47); Hemoglobin 15.6 g/dL (12.0-15.0); Lymphocyte # 1.68 X10^3/ul (4.0); Mean Corpuscular Volume 83.8 fL (81-99); Mean Platelet Vol. 11.7 fl (6.2-12.0); Monocyte% 7.7 % (0-10); NRBC Flagged by Analyzer 0 % (0-5); Neutrophil # 3.91 X10^3/uL (2.7-7.7); Neutrophil % 60.5 % (47-70); Platelet Count 300 K/mm3 (150-450); RBC Distribution Width CV 13.8 % (11.6-14.6); RBC Distribution Width SD 41.6 fl (35.1-43.9); White Blood Count 6.5 K/mm3 (4.4-11.0)
== END ==
PROVIDERS: PCP Family Medicine; Referring Provider Internal Medicine Gastroenterology; Visit Provider Internal Medicine Gastroenterology
DX: K50.90 Crohn's disease, unspecified, without complications (principal)
CPT/HCPCS: 36415; 85025

== ENCOUNTER → 2020-06-29 12:56 | Outpatient (CLI) | payer OTHER, SELFPAY ==
[2020-05-03 13:04] VITALS: BMI 35.9
[2020-06-29 13:14] LABS: Bacteria 0 SEEN /hpf (None Seen); Mucous, Urine 0 SEEN /hpf (<or=2+); Red Blood Cells-Urine 0 SEEN /hpf (0-5)
[2020-06-29 13:35] LABS: Color, Urine Yellow (Yellow); Glucose, Dipstick Normal (Normal); Ketone-Dipstick Negative (Negative); Leukocyte Esterase-Dipstick Negative /ul (Negative); Nitrite-Dipstick Negative (Negative); Occult Blood-Urine 25 /ul (Negative); Protein-Dipstick Negative (Negative); Specific Gravity, Urine 1.005 (1.002-1.030); Urine Bilirubin Dipstick Negative (Negative); Urine Clarity Clear (Clear); Urine Urobilinogen Normal (Normal)
[2020-06-29 13:59] LABS: Squamous Epithelial Cells - UA 0-5 SEEN /hpf (5-10); White Blood Cells 0-5 SEEN /hpf (0-5)
== END ==
PROVIDERS: PCP Family Medicine; Referring Provider Nurse Practitioner Adult Health; Visit Provider Nurse Practitioner Adult Health
DX: N30.21 Other chronic cystitis with hematuria (principal)
CPT/HCPCS: 81001

== ENCOUNTER → 2020-07-26 15:22 | Outpatient (CLI) | payer OTHER, SELFPAY ==
[2020-05-03 13:04] VITALS: BMI 35.9
== END ==
PROVIDERS: PCP Family Medicine; Referring Provider Internal Medicine Gastroenterology; Visit Provider Internal Medicine Gastroenterology
DX: Z11.59 Encounter for screening for other viral diseases (principal)
CPT/HCPCS: 87635; C9803; U0002

== ENCOUNTER 2020-09-01 10:19 | Day surgery (SDC) | payer OTHER, SELFPAY ==
[2020-05-03 13:04] VITALS: BMI 35.9
[2020-09-01 10:47] VITALS: BP 148/69; PULSE 74; RESP 16; TEMP 36.3; O2SAT 98; BMI 37.6
[2020-09-01] MEDS: Lactated Ringers 1,000 ML 100 ML IV (11:12)
[2020-09-01] MEDS: Cefazolin 2 GM in 0.9% Normal Saline 100 ML IV (12:30)
--- NOTE | 2020-09-01 12:43 | HP.PCM_ITS ---
HPI - General HPI Narrative AMANDA SANCHEZ, is a 65 F who presents for Botox injection she has a history of urge incontinence has failed medical therapy and we talked about options of management including InterStim therapy Botox second line third line medications and she is elected to undergo Botox therapy we will use 100 units. She unde rstands of the risk of infection bleeding and urinary retention and failure to improve symptoms. [facility] Medical History (Updated 09/01/20 @ 12:[address] Renato Frazier MD) Ambulates with cane Anxiety and depression Arthritis Back pain Bladder disease Cardiology follow-up encounter COVID-19 virus detected (01/24/20) Crohn disease Essential (primary) hypertension Former smoker Gastric reflux High cholesterol History of atrial fibrillation History of Crohn's disease History of IBS History of meningioma of the brain History of pain when walking History of pulmonary embolus (PE) (04/09/18) History of stress test History of trigger finger Hx of echocardiogram Hyperlipidemia Hypertension Leg cramps Lumbar stenosis without neurogenic claudication Obesity Palpitations Paroxysmal atrial fibrillation Pulmonary embolism Restless legs Shortness of breath Thyroid goiter Wears dentures Wears glasses Wide-complex tachycardia (04/27/20) Home Medications oxycodone-acetaminophen 5 mg-325 mg tablet 1 tab PO .Q4-6H PRN tab 07/02/17 [History Last Taken 04/08/18 22:00] gabapentin 300 mg capsule 300 mg PO TID 10/13/18 [History Last Taken 09/01/20 05:30] pantoprazole 40 mg tablet,delayed release 40 mg PO DAILY 10/13/18 [History Last Taken 09/01/20 05:30] ropinirole 0.5 mg tablet 1 mg PO .0600, 1400 10/13/18 [History Last Taken 09/01/20 05:30] cephalexin 250 mg tablet 250 mg PO DAILY tab 09/23/19 [History Last Taken Unknown] cyclobenzaprine 10 mg tablet 10 mg PO PRN PRN 09/23/19 [History Last Taken Unknown] fluoxetine 40 mg capsule 40 mg PO DAILY cap 09/23/19 [History Last Taken Unknown] sotalol 80 mg tablet 80 mg PO BID #180 tab 09/23/19 [Rx Last Taken 09/01/20 05:30] hydrochlorothiazide 25 mg PO DAILY 04/13/20 [History Last Taken Unknown] latanoprost 1 drp EACH EYE QHS 04/13/20 [History Last Taken Unknown] ropinirole 2 mg PO QHS 04/13/20 [History Last Taken Unknown] Stelara 90 mg SUBCUT .Q2MO 08/24/20 [History Last Taken Unknown] aspirin 81 mg PO QHS 08/24/20 [History Last Taken 08/21/20] lorazepam 0.5 mg PO DAILY PRN 08/24/20 [History Last Taken Unknown] promethazine 25 mg PO Q6H PRN 08/24/20 [History Last Taken Unknown] ciprofloxacin HCl [Cipro] 500 mg PO BID #10 tab 09/01/20 [Rx Last Taken Unknown] Allergy/AdvReac Type Severity Reaction Status Date / Time prednisone Allergy Itching Verified 09/01/20 10:44 acetaminophen AdvReac Severe GI upset Verified 09/01/20 10:44 [From Darvocet-N] hydrocodone [From Vicodin] AdvReac Severe GI upset Verified 09/01/20 10:44 propoxyphene AdvReac Severe GI upset Verified 09/01/20 10:44 [From Darvocet-N] cortisone AdvReac Intermediate Unknown Verified 09/01/20 10:44 Family History Mother CAD (coronary artery disease) Myocardial infarction Father Hypertension Brother CAD (coronary artery disease) Surgical History (Updated 08/24/20 @ 09:26 by Shanta Dent) History of back surgery (04/2020) History of carpal tunnel surgery of right wrist History of lobectomy of thyroid History of tonsillectomy and adenoidectomy Hx laparoscopic cholecystectomy Hx of bilateral breast reduction surgery Hx of craniotomy Social History (Updated 05/03/20 @ 13:[address] Andrew Keane MD) Smoking Status: Former smoker alcohol intake: never substance use type: does not use caffeine: Yes Type: carbonated beverages Number of servings: 2 what type of physical activity do you participate in: walking frequency: 3-4 times per week duration: 30-45 minutes/day seatbelt use: always do you feel safe at home: Yes ROS Constitutional Constitutional: Denies chills, fever(s) or malaise Eyes Eyes: Denies blurry vision or change in vision ENT HEENT: Reports none Cardiovascular Cardiovascular: Denies chest pain or palpitations Respiratory/Chest Respiratory/Chest: Denies cough or shortness of breath with exertion Gastrointestinal Gastrointestinal: Denies abdominal pain, constipation or diarrhea Musculoskeletal Musculoskeletal: Denies back pain, joint stiffness or joint swelling Integumentary Integumentary: Denies dry skin, jaundice, lesions or rash Neurologic Neurologic: Denies confusion, syncope or weakness Psychiatric Psychiatric: Reports none; Denies anxiety or depression Endocrine Endocrinology: Denies excessive sweating, fatigue or flushing Hematologic/Lymphatic Hematologic/Lymphatic: Denies anemia, easy bleeding or easy bruising Vital Signs Vital Signs Vital Signs: 09/01/20 10:47 Temperature 97.4 F L Temperature Source Temporal Pulse Rate 74 Respiratory Rate 16 Respiratory Pattern Normal Blood Pressure 148/69 H Blood Pressure Mean 95 Blood Pressure Source Monitor Blood Pressure Position Semi-Fowlers Blood Pressure Location Left Arm Pulse Ox 98 Oxygen Delivery Method Room Air Weight Weight: 119 kg Body Mass Index (BMI) 37.6 Physical Exam Const alert and oriented x3 General Appearance: cooperative HEENT normocephalic, head/scalp atraumatic, EAC's normal and TM's normal bilaterally Eyes PERRL and EOMs intact bilaterally Pupil: sluggish Neck no lymphadenopathy, supple and no JVD General: trachea midline Lymph Lymphatic: no lymphadenopathy noted, lymphedema and lymphadenopathy Resp normal respiratory effort, normal air movement and clear to auscultation bilaterally Cardio regular rate, regular rhythm and peripheral pulses 2+ throughout GI soft to palpation, non-tender and non-distended Extremity normal capillary refill and no clubbing, cyanosis or edema General Extremity: no tenderness to palpation of joints or extremities Skin no rashes or lesions noted General Skin Exam: turgor normal Lesions: no lesions Rashes: no rashes Neuro CN's II-XII intact bilaterally Speech: speech normal Motor Exam: strength 5/5 throughout; Negative for general weakness Psych thought process normal, cooperative and affect normal Appearance: appropriate Assessment & Plan Assessment/Plan (1) Urge incontinence: PLAN: Plan to proceed with Botox therapy and in the operating room 100 units
--- NOTE | 2020-09-01 12:43 | PCM.DC ---
Discharge Instructions Diet Discharge Diet: No restrictions Activity Discharge Activity: Return to Normal Activity and May Not Drive (while taking narcotic pain medications.) Dressing / Incision Call your doctor if you observe: Fever of 101 or Higher Follow Up Care Please Follow Up With: Renato Frazier MD When: Call [phone] for an appointment Test Results: Test results from this visit will be discussed in further detail at your follow-up appointment, if applicable. Discharge Plan Admission Primary Reason for Your Visit: botox inj. Attending Provider: Renato Frazier Primary Care Provider: Matthew Wallace Discharge Orders/Prescriptions Prescriptions: New ciprofloxacin HCl [Cipro] 500 mg tablet 500 mg PO BID Qty: 10 RF: 0 Continued oxycodone-acetaminophen 5-325 mg tablet 1 tab PO .Q4-6H PRN (Reason: Pain) RF: 0 pantoprazole [Protonix] 40 mg tablet,delayed release (DR/EC) 40 mg PO DAILY RF: 0 ropinirole 0.5 mg tablet 1 mg PO .0600, 1400 RF: 0 gabapentin 300 mg capsule 300 mg PO TID RF: 0 fluoxetine 40 mg capsule 40 mg PO DAILY RF: 0 cyclobenzaprine 10 mg tablet 10 mg PO PRN PRN (Reason: MUSCLE RELAXANT) RF: 0 cephalexin 250 mg tablet 250 mg tablet 250 mg PO DAILY RF: 0 sotalol 80 mg tablet 80 mg PO BID Qty: 180 RF: 3 latanoprost 1 DROP bottle 1 drp EACH EYE QHS RF: 0 ropinirole 1 MG tablet 2 mg PO QHS RF: 0 hydrochlorothiazide 25 MG tablet 25 mg PO DAILY RF: 0 aspirin 81 mg Tablet,Delayed Release (Dr/Ec) 81 mg PO QHS RF: 0 promethazine 25 mg Tablet 25 mg PO Q6H PRN (Reason: Nausea) RF: 0 lorazepam 1 mg Tablet 0.5 mg PO DAILY PRN (Reason: Anxiety) RF: 0 Stelara 90 mg/mL Syringe 90 mg SUBCUT .Q2MO RF: 0 Referrals / Follow Up: Renato Frazier MD [STAFF PHYSICIAN] - Matthew Wallace DO [Primary Care Provider] - Disposition Disposition (needs filled in before D/C Order can be placed): Home, Self Care
[2020-09-01] MEDS: 0.9% Normal Saline (Pres. free 10 ML Vial (12:50)
--- NOTE | 2020-09-01 12:53 | OP.PCM_ITS ---
Report of Operation Date of Procedure: 09/01/20 Pre-Operative Diagnosis: Urge incontinence Post-Operative Diagnosis: Same Surgery/Procedure Performed:: Cystoscopy with injection of neuro paralytic Botox into the bladder 100 units Description of Surgical Findings:: Patient has a history of urge incontinence which is failed conservative measures and medical therapy. Today the patient presents to the hospital for an injection of Botox into the bladder. The patient understands the risk of the procedure involved bleeding, infection, paralytic bladder and failure to empty the bladder. The possibility of needing a catheter or self intermittent catheterization of the bladder is not able to function properly. The risk of infection and bleeding and the risk of anesthesia was discussed with the patient. Patient signed the consent form and we proceeded to the operating room. Patient was taken back to the operating room after induction of anesthesia, the patient was placed supine on the table in the legs were placed in dorsolithotomy position. The genitals and urethra were prepped and draped in usual sterile fashion. Using a 21 Ethiopian offset cystoscope I went into the bladder via the urethra. The bladder was inspected. The trigone was normal. The left and right ureter orifice were identified. On the back table the Botox medication was prepared per the clip on sunglasses assembler's instruction, a total of 100 units of Botox were prepared. We then used a Botox needle through the cystoscope and then injected 0.5 cc of Botox solution into each site going through a matrix pattern in the back of the bladder to inject about every centimeter across the back of the bladder in several layers avoiding the trigone. After a total of 100 units of Botox was injected into the bladder there was minimal bleeding. The bladder was drained. The patient's anesthetic was reversed and the patient was taken back to the PACU in stable condition. Surgeon: Karin Type of Anesthesia: MAC Admit VTE Documentation VTE Present on Admission: No VTE Mechan Device Prophylaxis: SCD's
[2020-09-01 13:00] VITALS: BP 144/72; BP 148/69; PULSE 89; RESP 16; TEMP 37; O2SAT 94
[2020-09-01 13:05] VITALS: BP 148/69; BP 149/89; PULSE 88; RESP 16; O2SAT 94
[2020-09-01 13:10] VITALS: BP 130/81; BP 148/69; PULSE 85; RESP 16; O2SAT 95
[2020-09-01 13:15] VITALS: BP 133/78; BP 148/69; PULSE 83; RESP 16; TEMP 37.2; O2SAT 95
[2020-09-01 14:05] VITALS: BP 123/53; BP 148/69; PULSE 76; RESP 16; TEMP 36.2; O2SAT 96
== END 2020-09-01 14:13 | disposition home or self-care (01) ==
LOC: SDC 10:20 → AC 10:21
PROVIDERS: PCP Family Medicine; Referring Provider Urology; Visit Provider Urology
PROC: 3E0K8GC Introduction of Other Therapeutic Substance into Genitourinary Tract, Via Natural or Artificial Opening Endoscopic (ICD-10-PCS; CPT 52287; principal; 2020-09-01 12:20)
DX: N39.41 Urge incontinence (principal); I10 Essential (primary) hypertension; F32.9 Major depressive disorder, single episode, unspecified; F41.9 Anxiety disorder, unspecified; M19.90 Unspecified osteoarthritis, unspecified site; K50.90 Crohn's disease, unspecified, without complications; E78.5 Hyperlipidemia, unspecified; K21.9 Gastro-esophageal reflux disease without esophagitis; E66.9 Obesity, unspecified; G25.81 Restless legs syndrome; I48.0 Paroxysmal atrial fibrillation; Z86.16 Personal history of COVID-19; Z87.891 Personal history of nicotine dependence; Z86.711 Personal history of pulmonary embolism; Z79.899 Other long term (current) drug therapy; Z79.82 Long term (current) use of aspirin; Z86.718 Personal history of other venous thrombosis and embolism; Z68.37 Body mass index [BMI] 37.0-37.9, adult
CPT/HCPCS: 00910; 52287; J7120; J0585; J3490

== ENCOUNTER → 2020-12-14 15:10 | Outpatient (CLI) | payer OTHER, SELFPAY ==
[2020-12-14 18:03] LABS: Absolute Lymphocyte Count 1.82 X10^3/uL (0.83-4.51); Absolute Neutrophil Count 4.1 X10^3/uL (2.0-7.7); Basophil# 0.08 X10^3/uL; Basophil% 1.2 % (0-1); Eosinophil# 0.24 X10^3/uL; Eosinophils% 3.5 % (0-5); Hematocrit 46.3 % (37-47); Hemoglobin 14.2 g/dL (12.0-15.0); Lymphocyte # 1.82 X10^3/ul (0.83-4.51); Lymphocyte % 26.6 % (19-41); Mean Corp Hgb Conc 30.7 g/dL (32-36); Mean Corpuscular Hgb 25.6 pg (27.0-32.0); Mean Corpuscular Volume 83.6 fL (81-99); Mean Platelet Vol. 11.6 fl (6.2-12.0); Monocyte# 0.61 X10^3/uL; Monocyte% 8.9 % (0-10); NRBC Flagged by Analyzer 0 % (0-5); Neutrophil # 4.06 X10^3/uL (2.7-7.7); Neutrophil % 59.4 % (47-70); Platelet Count 242 K/mm3 (150-450); RBC Distribution Width CV 14.7 % (11.6-14.6); RBC Distribution Width SD 44.7 fl (35.1-43.9); Red Blood Count 5.54 M/mm3 (4.2-5.4); White Blood Count 6.8 K/mm3 (4.4-11.0)
== END ==
PROVIDERS: PCP Family Medicine; Referring Provider Internal Medicine Gastroenterology; Visit Provider Internal Medicine Gastroenterology
DX: K50.90 Crohn's disease, unspecified, without complications (principal)
CPT/HCPCS: 36415; 85025

== ENCOUNTER → 2021-01-16 11:13 | Outpatient (CLI) | payer OTHER, SELFPAY ==
[2021-01-19 13:35] LABS: HPV APTIMA, High Risk Negative (Negative)
== END ==
PROVIDERS: PCP Family Medicine; Visit Provider Student in an Organized Health Care Education/Training Program
DX: Z12.4 Encounter for screening for malignant neoplasm of cervix (principal)
CPT/HCPCS: 87624; 88175; G0145

== ENCOUNTER → 2021-01-24 09:13 | Outpatient (CLI) | payer OTHER, SELFPAY ==
--- NOTE | 2021-01-24 09:16 | BI_ITS ---
MAMMOGRAPHY - BILATERAL SCREENING REASON FOR EXAM: Female, 65 years old. Routine annual screening examination. PERTINENT HISTORY: Non-contributory. History of prior bilateral breast reduction surgery. TECHNIQUE: Digital bilateral breast patel (3D mammographic acquisition) in the CC and MLO projections. 2-D mediolateral oblique (MLO) and craniocaudad (CC) views of both breasts were obtained. CAD: Full Field Digital Mammography with Computer Added Detection was performed. COMPARISON: Comparison is made with prior study dated 11/29/2019 and 10/07/2018. FINDINGS: Breast Composition: The breasts are almost entirely fatty. There are no dominant masses or suspicious calcifications. Stable postsurgical calcification in the upper lateral portion of the left breast. The patient is status post bilateral breast reduction. No other significant abnormalities are identified. There has been no significant change since the prior study. BI/SCRN MAMM (CAD)W/PATEL BILAT IMPRESSION: Stable bilateral screening mammogram. Yearly follow-up mammogram recommended. (A) ASSESSMENT CATEGORY: BIRADS Category 2: Benign. A letter regarding these results will be sent to the patient by the facility within 30 days. Approximately 10% of breast cancers are not detected by mammography. A normal mammogram should not delay biopsy of a clinically suspicious abnormality. [id number] Electronically Signed: Bob Oro MD at 10:20 EST , Service support ,
== END ==
PROVIDERS: PCP Family Medicine; Referring Provider Student in an Organized Health Care Education/Training Program; Visit Provider Student in an Organized Health Care Education/Training Program
DX: Z12.31 Encounter for screening mammogram for malignant neoplasm of breast (principal)
CPT/HCPCS: 77063; 77067

== ENCOUNTER → 2021-02-20 07:40 | Outpatient (CLI) | payer OTHER, SELFPAY ==
[2021-02-20 10:32] LABS: Cholesterol 173 mg/dL (200); High Density Lipoprotein 47 mg/dL; Thyroid Stim Hormone (TSH) 4.56 uIU/mL (0.358-3.74); Triglycerides 179 mg/dL; Very Low Density Lipoprotein 36 mg/dL (5-40)
== END ==
PROVIDERS: Student in an Organized Health Care Education/Training Program; PCP Family Medicine; Referring Provider Family Medicine; Visit Provider Family Medicine
DX: E04.2 Nontoxic multinodular goiter (principal); E78.5 Hyperlipidemia, unspecified; Z03.818 Encounter for observation for suspected exposure to other biological agents ruled out
CPT/HCPCS: 36415; 80061; 84443; 87635; U0005; U0003

== ENCOUNTER 2021-02-22 06:57 | Day surgery (SDC) | payer OTHER, SELFPAY ==
[2021-02-20 10:32] LABS: Hematocrit 47.3 % (37-47); Hemoglobin 14.7 g/dL (12.0-15.0); Mean Corp Hgb Conc 31.1 g/dL (32-36); Mean Corpuscular Hgb 26.1 pg (27.0-32.0); Mean Platelet Vol. 12.3 fl (6.2-12.0); Platelet Count 241 K/mm3 (150-450); RBC Distribution Width CV 13.9 % (11.6-14.6); RBC Distribution Width SD 42.4 fl (35.1-43.9); Red Blood Count 5.63 M/mm3 (4.2-5.4); White Blood Count 6.2 K/mm3 (4.4-11.0)
--- NOTE | 2021-02-22 | EMB_PTH ---
PATIENT: AMANDA SANCHEZ LOC: [facility] [place] U#:[id number] AGE/SX: 65/F ROOM: RE02/22/[address]: Dr. Breanne Vinson DO : 1955 BED: DIS: 02/22/2021 SPEC #: [id number] RECD: 02/23/21 10:23 STATUS: ANTONIA KEYONA #: [id number] YANICK: 02/22/21 00:[address]: Breanne Vinson DEPT: SURGICAL PATHOLOGY RECD BY: Farhan River ENTERED: 02/23/21 10:24 SP TYPE: ENDOM BX/C CAROLYN DR: Dr. Matthew Wallace, Tissues: Endometrium, NOS Procedures: Surgery Specimen Level IV HEADER OPERATION: Hysteroscopy, dilation and curettage PRE-OP DIAGNOSIS: Postmenopausal bleeding TISSUE SUBMITTED: Endometrial curettings MICROSCOPIC DIAGNOSIS Endometrium, curettings: Strips of benign superficial glandular and squamous mucosa. AM:ludy 02/26/2021 MICROSCOPIC DESCRIPTION Slides are reviewed. GROSS DESCRIPTION Received in fixative is one container labeled with the patient's name and designated endometrial curettings. The specimen consists of multiple mucoid fragments of godwin tissue that in aggregate measure 1.5 x 1 x <0.1 cm. The specimen is totally submitted in one cassette. / AM:ludy 02/23/21 TC:5 CPT: 08392
--- NOTE | 2021-02-22 07:15 | PCM.HP.BLA ---
History and Physical Date of Admission: 02/22/21 HISTORY OF PRESENT ILLNESS: On 02/20/2021, Abi Reyna, a 65 year old female 4 0 0 0 4, presented for: hysteroscopy dilation and curettage for post menopausal bleeding. Ultrasound findings showed fluid in endometrial canal with nodule at fundus. MEDICAL HISTORY: 1. Atrial fibrillation 2. Hypertension 3. Anxiety/Depression 4. Chronic pain ALLERGIES: Darvocet, vicodin, Darvocet-N, Severe nausea & vomiting, Vicodin, Paranoia, Prednisone and Paranoia MEDICATIONS HISTORY: Patient is also takin. sotalol 80 mg tablet, 1 bid for A.Fib 2. fluoxetine 40 mg capsule, 1 paulino 3. promethazine 25 mg tablet, 1/2 q 8 hrs prn 4. Protonix [address] for susp in packet, 1 bid 5. ropinirole 0.5 mg tablet, One tablet am, one tab lunch, 2 tabs bedtime 6. Stelara 90 mg/mL subcutaneous syringe, 60 days 7. aspirin 81 mg tablet,delayed release, One tablet by mouth at bedtime 8. gabapentin 300 mg capsule, One capsule by mouth 3 x daily 9. cephalexin 250 mg capsule, One capsule by mouth once daily 10. hydrochlorothiazide 25 mg tablet, one tablet by mouth once daily 11. cyclobenzaprine 10 mg tablet, one table three times daily as needed 12. Flonase Allergy Relief 50 mcg/actuation nasal spray,suspension, As Directed 13. lorazepam 1 mg tablet, 0.5 tablet two times daily as needed 14. oxycodone 5 mg tablet, As needed SURGICAL HISTORY: 1. cholecystectomy, 1989 2. colonoscopy, 1991 3. T and A, 1960 4. 06/01/2013 A1 tendon release, right carpel tunnel Dr. Tejada 5. Colonoscopy 2007 Dr. Davis screening 6. 09/14/2009 Brain Tumor Removed tumor 7. 11/17/2009 Partial Thyroidectomy 8. 01/04/14, Breast Reduction 9. Rhizotomy of back, 09/18 MENSTRUAL HISTORY: LMP Known?- Postmenopausal, LMP - 08/26/07, Age Onset Menarche - 12 PAST PREGNANCIES: Total Pregnancies - 4; Full Term Pregnancies - 4; Premature - 0; Abortions, Induced - 0; Abortions, Spontaneous - 0; Ectopics - 0; Multiple Births - 0; Living Children - 4 FAMILY HISTORY: heart disease SOCIAL HISTORY: Alcohol Use - denies use Smoking - used to smoke but quit and 2000 Drug Use - denies REVIEW OF SYSTEMS: GENERAL - Denies fever, or chills SKIN - Denies skin changes EYES - wears eye glasses EARS - Denies difficulty hearing NOSE - Denies nasal congestion or bleeding MOUTH - Denies sore throat or difficulty swallowing NECK - Denies pain or swelling RESPIRATORY - Denies shortness of breath or wheezing CARDIOVASCULAR - Denies palpitations or chest pain GASTROINTESTINAL - Denies nausea, vomiting, diarrhea, constipation GENITOURINARY - Denies dysuria, frequency of urination, urgency, or hesitancy MUSCULOSKELETAL - Denies joint or muscle pain NEUROLOGICAL - Denies localized numbness or weakness PSYCHIATRIC - Depression -- On Fluoxetine ENDOCRINE - Denies heat or cold intolerance, weight loss or gain HEMATO-IMMUNOLOGIC - Denies excessive bleeding with cuts PHYSICAL EXAMINATION BP- 130/68 sitting, right forearm Weight- [id number] lbs Height- 69.75 inch BMI:37.80 CONSTITUTIONAL - NAD, well nourished, and well developed SKIN - No rash, lesions, or ulcers HEENT - Normocephalic, PERRLA, EOMI LUNGS - CTA x2 without wheezes, crackles or rales ABDOMEN - Without hepatosplenomegaly, distention, masses, rebound, or guarding; normal bowel sounds; no hernias EXTREMITIES - No edema or calf tenderness NEUROLOGICAL - Cranial nerves II-XII grossly intact PSYCHIATRIC - A and O to time, place, person, mood and affect ASSESSMENT: PLAN BY DIAGNOSIS: 1. Postmenopausal Bleeding One time PMB, spotting. US with mostly fluid in endometrial cavity likely secondary to cervical stenosis. Nodule noted in endometrial cavity Based on nodule at fundus - would recommend hysteroscopy, dilation and curettage to ensure evaluation of this region. R/B/A discussed. Risks include, but are not limited to: risks of bleeding to the point of transfusion, infection, injury to surrounding tissue (bowel/bladder/uterine perforation), VTE, ICU admission. Consented.
[2021-02-22 07:30] VITALS: BP 127/58; PULSE 75; RESP 16; TEMP 36; O2SAT 99; BMI 37.6
[2021-02-22] MEDS: Lactated Ringers 1,000 ML 15 ML IV (07:39)
--- NOTE | 2021-02-22 08:01 | PCM.OPRPT ---
Report of Operation Date of Procedure: 02/22/21 Pre-Operative Diagnosis: Postmenopausal Bleeding Post-Operative Diagnosis: Postmenopausal Bleeding Surgery/Procedure Performed:: Hysteroscopy, Dilation and Curettage Description of Surgical Findings:: Normal-appearing external genitalia. Grade 3 anterior and uterine prolapse. Endometrial polyp right lateral wall. Type of Anesthesia: MAC Specimen's removed: Endometrial curettings Estimated Blood Loss (mL): 5cc Fluids Replaced: 400cc Description of Procedure: Patient taken to the operating room, MAC anesthesia induced. Patient placed in the dorsal lithotomy position and prepped and draped in the usual sterile fashion. Weighted speculum placed in the posterior vagina and a Arguello retractor used to visualize cervix. Anterior lip of the cervix grasped with Allis clamp. Cervix sequentially dilated. Hysteroscope placed through cervical canal and inspection of endometrial cavity completed with findings as above. Hysteroscope removed. Endometrial curettage completed in a 360 degree manner. Hysteroscope replaced. Polyp noted to be gone. Hysteroscope removed. Allis clamp removed. Weighted speculum and Arguello retractor removed. Cervix hemostatic. At the end of the procedure all needle, lap, sponge counts correct. Complications None
--- NOTE | 2021-02-22 08:02 | PCM.DC ---
Discharge Instructions Diet Discharge Diet: No restrictions Activity Discharge Activity: Return to Normal Activity and May Shower May resume sexual activity in: 2 weeks Weight Bearing Status: Weight bearing as tolerated Lifting Restrictions: None Dressing / Incision Call your doctor if you observe: Fever of 101 or Higher, Change in Color, Inability to urinate, Using more than 1 pad per hour, Shortness of breath, Dizziness, Swelling in the ankles, Chest pain and Calf discomfort Follow Up Care Please Follow Up With: Breanne Vinson DO When: 1-2 wee post op visit Test Results: Test results from this visit will be discussed in further detail at your follow-up appointment, if applicable. Discharge Plan Admission Primary Reason for Your Visit: Hysteroscopy, Dilation and Curettage Attending Provider: Breanne Vinson Primary Care Provider: Matthew Wallace Discharge Orders/Prescriptions Prescriptions: Continued oxycodone-acetaminophen 5-325 mg tablet 1 tab PO .Q4-6H PRN (Reason: Pain) RF: 0 pantoprazole [Protonix] 40 mg tablet,delayed release (DR/EC) 40 mg PO DAILY RF: 0 ropinirole 0.5 mg tablet 1 mg PO .0600, 1400 RF: 0 gabapentin 300 mg capsule 300 mg PO TID RF: 0 fluoxetine 40 mg capsule 40 mg PO DAILY RF: 0 cyclobenzaprine 10 mg tablet 10 mg PO PRN PRN (Reason: MUSCLE RELAXANT) RF: 0 cephalexin 250 mg tablet 250 mg tablet 250 mg PO DAILY RF: 0 meloxicam 15 mg tablet 15 mg PO PRN PRN (Reason: Pain) RF: 0 latanoprost 1 DROP bottle 1 drp EACH EYE QHS RF: 0 ropinirole 1 MG tablet 2 mg PO QHS RF: 0 hydrochlorothiazide 25 MG tablet 25 mg PO DAILY RF: 0 aspirin 81 mg Tablet,Delayed Release (Dr/Ec) 81 mg PO QHS RF: 0 promethazine 25 mg Tablet 25 mg PO Q6H PRN (Reason: Nausea) RF: 0 lorazepam 1 mg Tablet 0.5 mg PO DAILY PRN (Reason: Anxiety) RF: 0 Stelara 90 mg/mL Syringe 90 mg SUBCUT .Q2MO RF: 0 sotalol 80 mg tablet 80 mg PO BID Qty: 180 RF: 3 Referrals / Follow Up: Matthew Wallace DO [Primary Care Provider] - Disposition Disposition (needs filled in before D/C Order can be placed): Home, Self Care
[2021-02-22 08:40] VITALS: BP 127/58; BP 129/64; PULSE 81; RESP 16; TEMP 36.3; O2SAT 91
[2021-02-22 08:45] VITALS: BP 120/56; BP 127/58; PULSE 82; RESP 18; O2SAT 97
[2021-02-22 08:50] VITALS: BP 101/44; BP 127/58; PULSE 74; RESP 18; O2SAT 94
[2021-02-22 08:55] VITALS: BP 108/75; BP 127/58; PULSE 70; RESP 18; TEMP 35.9; O2SAT 100
[2021-02-22 10:03] VITALS: BP 111/68; BP 127/58; PULSE 60; RESP 16; TEMP 36.4; O2SAT 97
== END 2021-02-22 10:06 | disposition home or self-care (01) ==
LOC: SDC 06:57 → AC 06:58
PROVIDERS: PCP Family Medicine; Referring Provider Student in an Organized Health Care Education/Training Program; Visit Provider Student in an Organized Health Care Education/Training Program
PROC: 0UDB8ZZ Extraction of Endometrium, Via Natural or Artificial Opening Endoscopic (ICD-10-PCS; CPT 58558; principal; 2021-02-22 08:05)
DX: N95.0 Postmenopausal bleeding (principal); N84.0 Polyp of corpus uteri; I10 Essential (primary) hypertension; F41.9 Anxiety disorder, unspecified; F32.A Depression, unspecified; G89.29 Other chronic pain; Z79.899 Other long term (current) drug therapy; Z79.82 Long term (current) use of aspirin; I48.0 Paroxysmal atrial fibrillation; N39.41 Urge incontinence; M19.90 Unspecified osteoarthritis, unspecified site; E78.00 Pure hypercholesterolemia, unspecified; K21.9 Gastro-esophageal reflux disease without esophagitis; K50.90 Crohn's disease, unspecified, without complications; E66.9 Obesity, unspecified; Z86.711 Personal history of pulmonary embolism; G25.81 Restless legs syndrome; Z68.37 Body mass index [BMI] 37.0-37.9, adult; Z87.891 Personal history of nicotine dependence
CPT/HCPCS: 58558; 36415; 85027; 86850; 86900; 86901; 88305; J7120; J2405

== ENCOUNTER → 2021-08-02 | Outpatient (CLI) | payer OTHER, SELFPAY ==
[2021-08-02 15:07] LABS: Absolute Neutrophil Count 3.5 X10^3/uL (2.0-7.7); Basophil# 0.08 X10^3/uL; Basophil% 1.4 % (0-1); Eosinophil# 0.24 X10^3/uL; Eosinophils% 4.1 % (0-5); Hematocrit 44.4 % (37-47); Hemoglobin 13.7 g/dL (12.0-15.0); Lymphocyte % 25.5 % (19-41); Mean Corp Hgb Conc 30.9 g/dL (32-36); Mean Corpuscular Hgb 25.1 pg (27.0-32.0); Mean Corpuscular Volume 81.5 fL (81-99); Mean Platelet Vol. 12.6 fl (6.2-12.0); Monocyte# 0.58 X10^3/uL; Monocyte% 9.8 % (0-10); NRBC Flagged by Analyzer 0 % (0-5); Neutrophil # 3.47 X10^3/uL (2.7-7.7); Neutrophil % 58.9 % (47-70); Platelet Count 232 K/mm3 (150-450); RBC Distribution Width CV 14.5 % (11.6-14.6); RBC Distribution Width SD 42.5 fl (35.1-43.9); Red Blood Count 5.45 M/mm3 (4.2-5.4); White Blood Count 5.9 K/mm3 (4.4-11.0)
== END | disposition home or self-care (01) ==
PROVIDERS: PCP Family Medicine; Referring Provider Internal Medicine Gastroenterology; Visit Provider Internal Medicine Gastroenterology
DX: K50.90 Crohn's disease, unspecified, without complications (principal); R19.7 Diarrhea, unspecified
CPT/HCPCS: 36415; 85025; 86140

== ENCOUNTER → 2021-08-08 | Outpatient (CLI) | payer OTHER, SELFPAY ==
[2021-08-13 16:29] LABS: Calprotectin, Stool 199 ug/g (0-120)
== END | disposition home or self-care (01) ==
PROVIDERS: PCP Family Medicine; Referring Provider Internal Medicine Gastroenterology; Visit Provider Internal Medicine Gastroenterology
DX: K50.90 Crohn's disease, unspecified, without complications (principal); R19.7 Diarrhea, unspecified
CPT/HCPCS: 83993; 87493

== ENCOUNTER → 2021-08-15 | Outpatient (CLI) | payer OTHER, SELFPAY | END | disposition home or self-care (01) | LOC: MTLAB 15:35 | PROVIDERS: PCP Family Medicine; Referring Provider Internal Medicine Gastroenterology; Visit Provider Internal Medicine Gastroenterology | DX: K50.90 Crohn's disease, unspecified, without complications (principal) | CPT/HCPCS: 36415 ==

== ENCOUNTER → 2021-09-14 | Outpatient (CLI) | payer OTHER, SELFPAY ==
--- NOTE | 2021-09-14 14:07 | CT_ITS ---
STUDY: CT Abdomen And Pelvis W/ Contrast Injection 09/14/2021 7:07 PM REASON FOR EXAM: Female, 66 years old. ABDOMINAL PAIN CROHNS Technologist Notes Chrohns flare up, diagnosed in 1990. History of cholecystectomy. TECHNIQUE: Transaxial images were obtained without oral contrast, and with IV 100mL Isovue-300 intravenous contrast. Individualized dose optimization techniques were used for this CT. COMPARISON: 02/10/2019. FINDINGS: The visualized lung bases are unremarkable. The visualized portions of the heart are within normal limits. There is decreased attenuation of the liver consistent with steatosis. Unremarkable 23 gallbladder and extrahepatic biliary system. There are multiple benign calcified granulomata of the spleen. Unremarkable pancreas. Unremarkable bilateral adrenal glands. No acute findings of the right kidney. No acute findings of the left kidney. Unremarkable visualized stomach. Wall thickening and inflammation of the terminal ileum. Scattered subcentimeter mesenteric lymph nodes. Mild diffuse inflammation of the colon. There is non-visualization of the appendix. There are calcifications of the abdominal aorta. This is consistent for atherosclerotic disease. There is no abdominal aortic aneurysm. Unremarkable inferior vena cava. Subcentimeter mesenteric lymph nodes. Unremarkable urinary bladder. There is absence of the uterus consistent with a prior hysterectomy. There is an umbilical hernia containing fat. There are diffuse degenerative changes of the visualized lumbar spine. Grade 1 anterolisthesis of L4 on L5. CT/Abdomen/Pelvis WITH Contrast IMPRESSION: (NOT LISTED IN ORDER OF SIGNIFICANCE) Fatty liver. Pancolitis. This can be seen in Crohn''s disease. Terminal ileitis. Other findings as above. Electronically Signed: Isaac Chong MD at 19:25 EDT ,
[2021-09-14 14:51] LABS: CREATININE FINGERSTICK < 0.9 mg/dL (0.55-1.02); EGFR FINGERSTICK > 60.0000 mL/min (>60)
== END | disposition home or self-care (01) ==
LOC: CT 14:03
PROVIDERS: PCP Family Medicine; Referring Provider Internal Medicine Gastroenterology; Visit Provider Internal Medicine Gastroenterology
DX: K50.90 Crohn's disease, unspecified, without complications (principal)
CPT/HCPCS: 74177

== ENCOUNTER → 2021-11-27 | Outpatient (CLI) | payer OTHER, SELFPAY ==
--- NOTE | 2021-11-27 11:15 | TISS_PTH ---
PATIENT: AMANDA SANCHEZ LOC: [facility] U#:[id number] AGE/SX: 66/F ROOM: RE11/27/[address]: Dr. 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 See comment. NICK:ludy 11/29/2021 COMMENT No evidence of melanocytic lesion is noted in the specimen. MICROSCOPIC DESCRIPTION Slides are reviewed. GROSS DESCRIPTION Received in fixative is one container labeled with the patient's name and designated right posterior thigh. The specimen consists of a piece of godwin-brown skin measuring 0.5 x 0.4 x 0.1 cm. The specimen is inked, bisected and submitted entirely in one cassette. / SJ:rg 11/28/2021 TC:1 [facility]: [id number]
== END | disposition home or self-care (01) ==
PROVIDERS: PCP Family Medicine; Visit Provider Family Medicine
DX: D48.5 Neoplasm of uncertain behavior of skin (principal)
CPT/HCPCS: 88305

== ENCOUNTER → 2022-01-02 | Outpatient (CLI) | payer OTHER, SELFPAY ==
--- NOTE | 2022-01-02 12:07 | EKG12_ITS ---
Test Reason : PRE OP Blood Pressure : / mmHG Vent. Rate : 074 BPM Atrial Rate : 074 BPM P-R Int : 170 ms QRS Dur : 090 ms QT Int : 390 ms P-R-T Axes : 055 062 082 degrees QTc Int : 432 ms Normal sinus rhythm Nonspecific ST abnormality Abnormal ECG Confirmed by SIMEON RICK, JULEE ([id number]), market editor JOSELUIS MELLO ([id number]) on 01/03/2022 10:27:07 AM Referred By: Makeda Hermosillo Confirmed By:JULEE HENDRIX MD
[2022-01-02 12:44] LABS: Absolute Lymphocyte Count 1.81 X10^3/uL (0.83-4.51); Absolute Neutrophil Count 4.9 X10^3/uL (2.0-7.7); Basophil# 0.08 X10^3/uL; Eosinophil# 0.21 X10^3/uL; Eosinophils% 2.7 % (0-5); Hematocrit 44.1 % (37-47); Hemoglobin 14.1 g/dL (12.0-15.0); Lymphocyte # 1.81 X10^3/ul (0.83-4.51); Lymphocyte % 23.7 % (19-41); Mean Corpuscular Hgb 26.3 pg (27.0-32.0); Mean Corpuscular Volume 82.1 fL (81-99); Mean Platelet Vol. 11.2 fl (6.2-12.0); Monocyte# 0.57 X10^3/uL; Monocyte% 7.5 % (0-10); NRBC Flagged by Analyzer 0 % (0-5); Neutrophil # 4.94 X10^3/uL (2.7-7.7); Neutrophil % 64.7 % (47-70); Platelet Count 255 K/mm3 (150-450); RBC Distribution Width CV 14.4 % (11.6-14.6); RBC Distribution Width SD 43.2 fl (35.1-43.9); Red Blood Count 5.37 M/mm3 (4.2-5.4); White Blood Count 7.6 K/mm3 (4.4-11.0)
[2022-01-02 13:08] LABS: Anion Gap 4 (5-15); BUN 16 mg/dL (7-18); BUN/Creat Ratio 21.7 RATIO (10-20); Calcium,Total 9.1 mg/dL (8.5-10.1); Chloride 99 mmol/L (98-107); Creatinine, Serum 0.74 mg/dL (0.55-1.02); EST Glomerular Filtration Rate 83 mL/min (>60); Est Glom Filt Rate - Afr Amer 101 mL/min (>60); Glucose 165 mg/dL (74-106); Potassium 3.3 mmol/L (3.5-5.1); Sodium Level 137 mmol/L (136-145)
== END | disposition home or self-care (01) ==
LOC: PSN 12:00
PROVIDERS: PCP Family Medicine; Referring Provider Physician Assistant Surgical; Visit Provider Physician Assistant Surgical
DX: Z01.810 Encounter for preprocedural cardiovascular examination (principal)
CPT/HCPCS: 36415; 80048; 85025; 93005

== ENCOUNTER → 2022-03-21 | Outpatient (CLI) | payer OTHER, SELFPAY ==
[2022-03-21 15:15] LABS: Absolute Lymphocyte Count 1.85 X10^3/uL (0.83-4.51); Absolute Neutrophil Count 3.3 X10^3/uL (2.0-7.7); Basophil% 1.7 % (0-1); Eosinophils% 3.3 % (0-5); Hemoglobin 13.3 g/dL (12.0-15.0); Lymphocyte # 1.85 X10^3/ul (0.83-4.51); Lymphocyte % 30.9 % (19-41); Mean Corp Hgb Conc 30.2 g/dL (32-36); Mean Corpuscular Hgb 24.6 pg (27.0-32.0); Mean Corpuscular Volume 81.3 fL (81-99); Mean Platelet Vol. 11.9 fl (6.2-12.0); Monocyte# 0.52 X10^3/uL; Monocyte% 8.7 % (0-10); NRBC Flagged by Analyzer 0 % (0-5); Neutrophil % 55.2 % (47-70); Platelet Count 250 K/mm3 (150-450); RBC Distribution Width CV 14.1 % (11.6-14.6); RBC Distribution Width SD 41.1 fl (35.1-43.9); Red Blood Count 5.41 M/mm3 (4.2-5.4)
== END | disposition home or self-care (01) ==
PROVIDERS: PCP Family Medicine; Referring Provider Internal Medicine Gastroenterology; Visit Provider Internal Medicine Gastroenterology
DX: K50.90 Crohn's disease, unspecified, without complications (principal)
CPT/HCPCS: 36415; 85025

== ENCOUNTER → 2022-04-22 | Outpatient (CLI) | payer OTHER, SELFPAY ==
[2022-04-22 15:00] LABS: Absolute Lymphocyte Count 2.15 X10^3/uL (0.83-4.51); Absolute Neutrophil Count 7.2 X10^3/uL (2.0-7.7); Basophil# 0.08 X10^3/uL; Basophil% 0.8 % (0-1); Eosinophil# 0.09 X10^3/uL; Eosinophils% 0.9 % (0-5); Hematocrit 47.4 % (37-47); Hemoglobin 14.8 g/dL (12.0-15.0); Lymphocyte # 2.15 X10^3/ul (0.83-4.51); Lymphocyte % 20.9 % (19-41); Mean Corp Hgb Conc 31.2 g/dL (32-36); Mean Corpuscular Hgb 24.8 pg (27.0-32.0); Mean Corpuscular Volume 79.4 fL (81-99); Mean Platelet Vol. 10.9 fl (6.2-12.0); Monocyte# 0.77 X10^3/uL; Monocyte% 7.5 % (0-10); NRBC Flagged by Analyzer 0 % (0-5); Neutrophil # 7.19 X10^3/uL (2.7-7.7); Neutrophil % 69.6 % (47-70); Platelet Count 278 K/mm3 (150-450); RBC Distribution Width CV 14.2 % (11.6-14.6); RBC Distribution Width SD 40.9 fl (35.1-43.9); Red Blood Count 5.97 M/mm3 (4.2-5.4); White Blood Count 10.3 K/mm3 (4.4-11.0)
[2022-04-22 15:45] LABS: Estradiol < 11.0 pg/mL; Follicle Stimulating Hormone 29.7 mIU/mL; Luteinizing Hormone 18.3 mIU/mL; Thyroid Stim Hormone (TSH) 3.24 uIU/mL (0.358-3.74)
[2022-04-22 17:29] LABS: Progesterone Level < 0.21 ng/mL (See Comment)
== END | disposition home or self-care (01) ==
PROVIDERS: PCP Family Medicine; Visit Provider Student in an Organized Health Care Education/Training Program
DX: N95.1 Menopausal and female climacteric states (principal)
CPT/HCPCS: 36415; 82670; 83001; 83002; 84144; 84443; 85025

== ENCOUNTER → 2022-09-20 | Outpatient (CLI) | payer OTHER, SELFPAY ==
[2022-09-20 12:32] LABS: Absolute Lymphocyte Count 1.49 X10^3/uL (0.83-4.51); Absolute Neutrophil Count 3.3 X10^3/uL (2.0-7.7); Basophil# 0.08 X10^3/uL; Basophil% 1.5 % (0-1); Eosinophil# 0.18 X10^3/uL; Eosinophils% 3.3 % (0-5); Hematocrit 43.4 % (37-47); Lymphocyte # 1.49 X10^3/ul (0.83-4.51); Mean Corpuscular Hgb 23.8 pg (27.0-32.0); Mean Corpuscular Volume 79.5 fL (81-99); Mean Platelet Vol. 11.4 fl (6.2-12.0); Monocyte# 0.49 X10^3/uL; Monocyte% 8.9 % (0-10); NRBC Flagged by Analyzer 0 % (0-5); Neutrophil # 3.26 X10^3/uL (2.7-7.7); Neutrophil % 59.1 % (47-70); Platelet Count 252 K/mm3 (150-450); RBC Distribution Width CV 15.7 % (11.6-14.6); RBC Distribution Width SD 44.6 fl (35.1-43.9); Red Blood Count 5.46 M/mm3 (4.2-5.4); White Blood Count 5.5 K/mm3 (4.4-11.0)
[2022-09-20 12:47] LABS: Anion Gap 3 (5-15); BUN 13 mg/dL (7-18); BUN/Creat Ratio 16.4 RATIO (10-20); Chloride 103 mmol/L (98-107); Creatinine, Serum 0.79 mg/dL (0.55-1.02); EST Glomerular Filtration Rate 77 mL/min (>60); Est Glom Filt Rate - Afr Amer 93 mL/min (>60); Glucose 114 mg/dL (74-106); Potassium 4.1 mmol/L (3.5-5.1); Sodium Level 138 mmol/L (136-145)
== END | disposition home or self-care (01) ==
LOC: MTLAB 10:03
PROVIDERS: Nurse Practitioner Acute Care; PCP Family Medicine; Referring Provider Internal Medicine Gastroenterology; Visit Provider Internal Medicine Gastroenterology
DX: K50.90 Crohn's disease, unspecified, without complications (principal)
CPT/HCPCS: 36415; 80048; 85025

== ENCOUNTER → 2022-10-21 | Outpatient (CLI) | payer OTHER, SELFPAY ==
--- NOTE | 2022-10-21 12:18 | US_ITS ---
EXAM: US RETROPERITONEAL LIMITED, RENAL CLINICAL INDICATION: UTI, FLANK PAIN TECHNIQUE: Limited grayscale and color Doppler sonographic evaluation of the retroperitoneum was performed. COMPARISON: September 14, 2021 CT abdomen and pelvis. FINDINGS: RIGHT KIDNEY: 13.7 cm x 6.2 cm x 4.4 cm. Slightly prominent calyces. No shadowing calculus. No focal lesion. No perinephric collection is demonstrated. LEFT KIDNEY: Slightly prominent calyces. 12.3 cm x 5.1 cm x 5.6 cm. No shadowing calculus. No focal lesion. No perinephric collection is demonstrated. BLADDER: Calculated volume 328 cc. Bilateral ureteral jets are demonstrated in the bladder, evidence against a high-grade ureter obstruction. No significant bladder wall thickening. 3.5 mm estimated wall. No intraluminal debris. US/Kidney and Bladder IMPRESSION: Slightly prominent calyces of the kidneys but well demonstrated ureteral jets, evidence against a high-grade ureter obstruction. Otherwise unremarkable exam. Electronically Signed: Lupe Brizuela MD at 6:25 EDT ,
== END | disposition home or self-care (01) ==
LOC: US 12:16
PROVIDERS: PCP Family Medicine; Referring Provider Urology; Visit Provider Urology
DX: N39.0 Urinary tract infection, site not specified (principal); R10.9 Unspecified abdominal pain
CPT/HCPCS: 76770

== ENCOUNTER → 2022-11-22 | Outpatient (CLI) | payer OTHER, SELFPAY ==
[2022-11-22 15:06] LABS: Absolute Neutrophil Count 4.4 X10^3/uL (2.0-7.7); Basophil# 0.08 X10^3/uL; Basophil% 1.2 % (0-1); Eosinophil# 0.13 X10^3/uL; Eosinophils% 1.9 % (0-5); Hematocrit 46.1 % (37-47); Hemoglobin 13.5 g/dL (12.0-15.0); Lymphocyte % 23.4 % (19-41); Mean Corp Hgb Conc 29.3 g/dL (32-36); Mean Corpuscular Hgb 23.5 pg (27.0-32.0); Mean Corpuscular Volume 80.3 fL (81-99); Mean Platelet Vol. 11.6 fl (6.2-12.0); Monocyte# 0.58 X10^3/uL; Monocyte% 8.5 % (0-10); NRBC Flagged by Analyzer 0 % (0-5); Neutrophil # 4.41 X10^3/uL (2.7-7.7); Neutrophil % 64.6 % (47-70); Platelet Count 297 K/mm3 (150-450); RBC Distribution Width CV 16.1 % (11.6-14.6); RBC Distribution Width SD 46.4 fl (35.1-43.9); Red Blood Count 5.74 M/mm3 (4.2-5.4); White Blood Count 6.8 K/mm3 (4.4-11.0)
[2022-11-22 15:54] LABS: ALB/GLOB Ratio 0.8 RATIO (0.9-2.4); AST(SGOT) 36 U/L (15-37); Alanine Aminotransfer ALT/SGPT 49 U/L (13-56); Albumin, Serum 3.3 g/dL (3.2-5.0); Alkaline Phosphatase 61 U/L (45-117); Anion Gap 5 (5-15); BUN 11 mg/dL (7-18); BUN/Creat Ratio 15.9 RATIO (10-20); Calcium,Total 9.1 mg/dL (8.5-10.1); Chloride 101 mmol/L (98-107); Creatinine, Serum 0.69 mg/dL (0.55-1.02); EST Glomerular Filtration Rate 90 mL/min (>60); Est Glom Filt Rate - Afr Amer 109 mL/min (>60); Globulin 3.9 g/dL (2.2-4.2); Glucose 110 mg/dL (74-106); Potassium 3.3 mmol/L (3.5-5.1); Protein, Total 7.2 g/dL (6.4-8.2); Sodium Level 139 mmol/L (136-145); Thyroid Stim Hormone (TSH) 2.11 uIU/mL (0.358-3.74)
== END | disposition home or self-care (01) ==
LOC: BFHLAB 11:39
PROVIDERS: PCP Family Medicine; Referring Provider Family Medicine; Visit Provider Family Medicine
DX: R53.83 Other fatigue (principal); R61 Generalized hyperhidrosis
CPT/HCPCS: 36415; 80053; 84443; 85025

== ENCOUNTER → 2023-02-21 | Outpatient (CLI) | payer OTHER, SELFPAY ==
--- NOTE | 2023-02-21 08:46 | VDLE_ITS ---
Reason For Study: BLE Venous Insufficiency RIGHT LEFT CFV is compressible, spontaneous, phasic, CFV is compressible, spontaneous, phasic, competent and demonstrates normal competent, and demonstrates normal augmentation. augmentation. FV is compressible, spontaneous, phasic, FV is compressible, spontaneous, phasic, competent and demonstrates normal competent and demonstrates normal augmentation. augmentation. POP V is compressible, spontaneous, phasic, POP V is compressible, spontaneous, phasic, competent and demonstrates normal competent and demonstrates normal augmentation. augmentation. T/P Trunk is compressible. T/P Trunk is compressible. PTV is compressible. PTV is compressible. RT PerV is compressible. LT PerV is compressible. SFJ is competent and measures 0.63 cm. SFJ is competent and measures 0.60 cm. GSV proximal thigh measures 0.24 x 0.29 cm. GSV proximal thigh measures 0.28 x 0.26 cm. GSV at knee measures 0.41x 0.35 cm. GSV at knee measures 0.32 x 0.30 cm. GSV is competent throughout. GSV is competent throughout. SSV proximal calf is competent and measures SSV proximal calf is competent and measures 0.50 x 0.54 cm. 0.46 x 0.45 cm. Procedure This is a venous duplex using B-mode, color flow and spectral Doppler. Exam performed in department. The exam was diagnostic. VL/Venous Duplex US - Zhen Extrem Interpretation Summary Deep veins of the bilateral lower extremities are patent and compressible segme ntally. There is no evidence of bilateral lower extremity deep vein thrombosis. The bilateral great saphenous veins appear patent and compressible segmentally. Negative for reflux bilateral Ordering Physician: Matthew Wallace Referring Physician: Matthew Wallace Performed By: Henok Govea, RVDaren
== END | disposition home or self-care (01) ==
LOC: CVS 08:45
PROVIDERS: PCP Family Medicine; Referring Provider Family Medicine; Visit Provider Family Medicine
DX: I87.2 Venous insufficiency (chronic) (peripheral) (principal)
CPT/HCPCS: 93970

== ENCOUNTER 2023-06-20 14:08 | Outpatient (RCR) | payer OTHER, SELFPAY ==
[2023-06-20 17:54] LABS: Absolute Lymphocyte Count 2.04 X10^3/uL (0.83-4.51); Absolute Neutrophil Count 4.9 X10^3/uL (2.0-7.7); Basophil# 0.13 X10^3/uL; Basophil% 1.6 % (0-1); Eosinophil# 0.26 X10^3/uL; Eosinophils% 3.2 % (0-5); Hematocrit 43.4 % (37-47); Hemoglobin 12.6 g/dL (12.0-15.0); Lymphocyte # 2.04 X10^3/ul (0.83-4.51); Lymphocyte % 25.3 % (19-41); Mean Corpuscular Hgb 21.9 pg (27.0-32.0); Mean Corpuscular Volume 75.5 fL (81-99); Mean Platelet Vol. 11.9 fl (6.2-12.0); Monocyte# 0.65 X10^3/uL; Monocyte% 8.1 % (0-10); NRBC Flagged by Analyzer 0 % (0-5); Neutrophil # 4.94 X10^3/uL (2.7-7.7); Neutrophil % 61.4 % (47-70); POSITIVE COUNT YES; RBC Distribution Width CV 15.9 % (11.6-14.6); RBC Distribution Width SD 42.6 fl (35.1-43.9); Red Blood Count 5.75 M/mm3 (4.2-5.4); White Blood Count 8.1 K/mm3 (4.4-11.0)
[2023-06-20 17:59] LABS: Differential Indicated SCAN CRITERIA MET
[2023-06-20 18:18] LABS: Differential Comment SCANNED; Platelet Estimate ADEQUATE (ADEQ)
== END 2023-07-08 22:13 | disposition home or self-care (01) ==
LOC: MTLAB 14:08
PROVIDERS: PCP Family Medicine; Referring Provider Internal Medicine Gastroenterology; Visit Provider Internal Medicine Gastroenterology
DX: K50.90 Crohn's disease, unspecified, without complications (principal)
CPT/HCPCS: 36415; 85025

== ENCOUNTER → 2023-07-05 | Outpatient (CLI) | payer OTHER, SELFPAY ==
[2023-07-05 08:45] LABS: CRP 7.67 mg/L (0.0-3.0); Ferritin 24 ng/mL (8-252); Iron 55 ug/dL (50-170); Iron Binding Capacity,Total 486 ug/dL (250-450); PERCENT IRON SATURATION 11.3 % (15.0-55.0)
== END | disposition home or self-care (01) ==
LOC: LAB 07:14
PROVIDERS: PCP Family Medicine; Referring Provider Internal Medicine Gastroenterology; Visit Provider Internal Medicine Gastroenterology
DX: D50.9 Iron deficiency anemia, unspecified (principal)
CPT/HCPCS: 36415; 82728; 83540; 83550; 86140

== ENCOUNTER 2023-08-11 09:05 | Outpatient (RCR) | payer OTHER, SELFPAY ==
[2023-08-11 10:31] LABS: Absolute Neutrophil Count 3.8 X10^3/uL (2.0-7.7); Basophil# 0.08 X10^3/uL; Basophil% 1.3 % (0-1); Eosinophil# 0.21 X10^3/uL; Eosinophils% 3.3 % (0-5); Hematocrit 44.9 % (37-47); Hemoglobin 13.1 g/dL (12.0-15.0); Lymphocyte % 26.7 % (19-41); Mean Corp Hgb Conc 29.2 g/dL (32-36); Mean Corpuscular Hgb 23.4 pg (27.0-32.0); Mean Corpuscular Volume 80.3 fL (81-99); Mean Platelet Vol. 11.5 fl (6.2-12.0); Monocyte# 0.51 X10^3/uL; NRBC Flagged by Analyzer 0 % (0-5); Neutrophil # 3.84 X10^3/uL (2.7-7.7); Neutrophil % 60.2 % (47-70); Platelet Count 211 K/mm3 (150-450); RBC Distribution Width CV 19.3 % (11.6-14.6); RBC Distribution Width SD 55.1 fl (35.1-43.9); Red Blood Count 5.59 M/mm3 (4.2-5.4); White Blood Count 6.4 K/mm3 (4.4-11.0)
[2023-08-11 14:12] LABS: Anion Gap 7 (5-15); BUN 14 mg/dL (7-18); BUN/Creat Ratio 21.1 RATIO (10-20); Calcium,Total 9.2 mg/dL (8.5-10.1); Chloride 101 mmol/L (98-107); Creatinine, Serum 0.66 mg/dL (0.55-1.02); EST Glomerular Filtration Rate 94 mL/min (>60); Est Glom Filt Rate - Afr Amer 114 mL/min (>60); Free T3 2.7 pg/mL (2.18-3.98); Glucose 120 mg/dL (74-106); Magnesium 2.1 mg/dL (1.6-2.6); Potassium 3.7 mmol/L (3.5-5.1); Sodium Level 137 mmol/L (136-145); T4 Free Direct 1.01 ng/dL (0.76-1.46); Thyroid Stim Hormone (TSH) 2.73 uIU/mL (0.358-3.74)
== END 2023-08-11 18:00 | disposition home or self-care (01) ==
LOC: LAB 09:05
PROVIDERS: Physician Assistant Medical; PCP Family Medicine; Referring Provider Internal Medicine Gastroenterology; Visit Provider Internal Medicine Gastroenterology
DX: K50.90 Crohn's disease, unspecified, without complications (principal)
CPT/HCPCS: 36415; 80048; 83735; 84439; 84443; 84481; 85025

== ENCOUNTER → 2023-08-20 | Outpatient (CLI) | payer OTHER, SELFPAY | END | disposition home or self-care (01) | LOC: PSN 08:39 | PROVIDERS: PCP Family Medicine; Referring Provider Physician Assistant Medical; Visit Provider Physician Assistant Medical | DX: I48.0 Paroxysmal atrial fibrillation (principal); E78.00 Pure hypercholesterolemia, unspecified; I10 Essential (primary) hypertension | CPT/HCPCS: 93225; 93226 ==

== ENCOUNTER 2023-10-28 08:38 | Outpatient (RCR) | payer OTHER, SELFPAY ==
[2023-10-28 10:40] LABS: Absolute Lymphocyte Count 1.63 X10^3/uL (0.83-4.51); Absolute Neutrophil Count 4.2 X10^3/uL (2.0-7.7); Basophil# 0.07 X10^3/uL; Basophil% 1.1 % (0-1); Eosinophil# 0.21 X10^3/uL; Eosinophils% 3.2 % (0-5); Hematocrit 47.8 % (37-47); Hemoglobin 14.9 g/dL (12.0-15.0); Lymphocyte # 1.63 X10^3/ul (0.83-4.51); Lymphocyte % 24.5 % (19-41); Mean Corp Hgb Conc 31.2 g/dL (32-36); Mean Corpuscular Hgb 25.9 pg (27.0-32.0); Mean Corpuscular Volume 83.1 fL (81-99); Mean Platelet Vol. 11.5 fl (6.2-12.0); Monocyte% 7.5 % (0-10); NRBC Flagged by Analyzer 0 % (0-5); Neutrophil # 4.23 X10^3/uL (2.7-7.7); Neutrophil % 63.4 % (47-70); Platelet Count 262 K/mm3 (150-450); RBC Distribution Width CV 14.8 % (11.6-14.6); RBC Distribution Width SD 44.1 fl (35.1-43.9); Red Blood Count 5.75 M/mm3 (4.2-5.4); White Blood Count 6.7 K/mm3 (4.4-11.0)
== END 2023-10-28 18:00 | disposition home or self-care (01) ==
LOC: MTLAB 08:38
PROVIDERS: PCP Family Medicine; Referring Provider Internal Medicine Gastroenterology; Visit Provider Internal Medicine Gastroenterology
DX: K50.90 Crohn's disease, unspecified, without complications (principal)
CPT/HCPCS: 36415; 85025

== ENCOUNTER 2024-01-05 10:06 | Outpatient (RCR) | payer OTHER, SELFPAY ==
[2024-01-05 12:21] LABS: Absolute Neutrophil Count 4.4 X10^3/uL (2.0-7.7); Basophil# 0.07 X10^3/uL; Eosinophil# 0.28 X10^3/uL; Eosinophils% 4.1 % (0-5); Hematocrit 45.9 % (37-47); Hemoglobin 14.3 g/dL (12.0-15.0); Lymphocyte % 22.2 % (19-41); Mean Corp Hgb Conc 31.2 g/dL (32-36); Mean Corpuscular Hgb 26.7 pg (27.0-32.0); Mean Corpuscular Volume 85.8 fL (81-99); Mean Platelet Vol. 11.8 fl (6.2-12.0); Monocyte# 0.51 X10^3/uL; Monocyte% 7.6 % (0-10); NRBC Flagged by Analyzer 0 % (0-5); Neutrophil # 4.37 X10^3/uL (2.7-7.7); Neutrophil % 64.8 % (47-70); Platelet Count 218 K/mm3 (150-450); RBC Distribution Width CV 14.3 % (11.6-14.6); RBC Distribution Width SD 43.8 fl (35.1-43.9); Red Blood Count 5.35 M/mm3 (4.2-5.4); White Blood Count 6.8 K/mm3 (4.4-11.0)
== END 2024-01-05 18:00 | disposition home or self-care (01) ==
LOC: MTLAB 10:06
PROVIDERS: PCP Family Medicine; Referring Provider Internal Medicine Gastroenterology; Visit Provider Internal Medicine Gastroenterology
DX: M25.552 Pain in left hip (principal); K50.90 Crohn's disease, unspecified, without complications
CPT/HCPCS: 36415; 73502; 85025

== ENCOUNTER → 2024-04-20 | Outpatient (CLI) | payer OTHER, SELFPAY ==
--- NOTE | 2024-04-20 16:24 | RAD_ITS ---
EXAM: HIP, UNI W/ PELVIS 2-3 VIEWS CLINICAL HISTORY: Right hip pain. COMPARISON: None. TECHNIQUE: Three views were obtained. FINDINGS: Moderate degree of joint space narrowing involving both hip joints with acetabular spurs. Narrowing and sclerosis of the symphysis pubis. Degenerative changes of the sacroiliac joints. A calcified phlebolith is seen in the right hemipelvis. RAD/HIP, UNI W/ Pelvis 2-3 Views IMPRESSION: Degenerative changes as described. Reading Location: [facility]
--- NOTE | 2024-04-20 16:24 | RAD_ITS ---
PROCEDURE: L/S SPINE MIN 4 VIEWS REASON FOR EXAM: Pain. TECHNIQUE: 6 view lumbar spine series including bilateral oblique and lateral flexion and extension views. COMPARISON: None. RAD/L/S Spine Min 4 Views IMPRESSION: Right upper quadrant abdominal surgical clips are noted. Mild right and [id number] left sacroiliac joint degenerative changes are noted. No evidence of spondylolysis. Slight anterolisthesis of L4 upon L5 is noted. No dynamic instability is seen on lateral flexion and extension views. Fjkt-[id number] degenerative changes are seen throughout the lumbar spine, mos t prominent at the mid to lower lumbar posterior facets. Moderate disc narrowing is seen at L4-L5 and L5-S1 levels. No fracture site is evident. Reading Location: [id number]
== END | disposition home or self-care (01) ==
LOC: MTRAD 16:22
PROVIDERS: PCP Family Medicine; Referring Provider Clinical Nurse Specialist Adult Health; Visit Provider Clinical Nurse Specialist Adult Health
DX: M25.551 Pain in right hip (principal); M51.369 Other intervertebral disc degeneration, lumbar region without mention of lumbar back pain or lower extremity pain
CPT/HCPCS: 72110; 73502

== ENCOUNTER 2024-05-10 08:58 | Outpatient (RCR) | payer OTHER, SELFPAY | END 2024-05-10 18:00 | disposition home or self-care (01) | LOC: MTLAB 08:58 | PROVIDERS: PCP Family Medicine; Referring Provider Internal Medicine Gastroenterology; Visit Provider Internal Medicine Gastroenterology | DX: K50.90 Crohn's disease, unspecified, without complications (principal) ==

== ENCOUNTER 2024-05-27 10:05 | Day surgery (SDC) | payer OTHER, SELFPAY ==
[2024-05-10 13:24] LABS: Absolute Neutrophil Count 4.7 X10^3/uL (2.0-7.7); Basophil% 1.4 % (0-1); Eosinophil# 0.28 X10^3/uL; Eosinophils% 3.9 % (0-5); Hematocrit 45.9 % (37-47); Hemoglobin 14.7 g/dL (12.0-15.0); Lymphocyte % 22.3 % (19-41); Mean Corpuscular Volume 84.2 fL (81-99); Mean Platelet Vol. 11.5 fl (6.2-12.0); Monocyte# 0.49 X10^3/uL; Monocyte% 6.8 % (0-10); NRBC Flagged by Analyzer 0 % (0-5); Neutrophil # 4.69 X10^3/uL (2.7-7.7); Neutrophil % 65.2 % (47-70); Platelet Count 241 K/mm3 (150-450); RBC Distribution Width CV 13.8 % (11.6-14.6); RBC Distribution Width SD 42.1 fl (35.1-43.9); Red Blood Count 5.45 M/mm3 (4.2-5.4); White Blood Count 7.2 K/mm3 (4.4-11.0)
[2024-05-10 13:26] LABS: Anion Gap 10 (5-15); BUN 9 mg/dL (4-19); BUN/Creat Ratio 13.5 RATIO (10-20); Calcium 9.5 mg/dL (7.6-11.0); Carbon Dioxide 30.3 mmol/L (22.0-29.0); Chloride 97 mmol/L (96-108); Creatinine, Serum 0.65 mg/dL (0.70-1.20); EST Glomerular Filtration Rate 96 (>60); Glucose 114 mg/dL (70-99); Sodium Level 137 mmol/L (133-145)
--- NOTE | 2024-05-12 11:48 | PAT.ANESEVAL ---
Pre-Assessment Diagnosis/Proposed Procedure Planned Operative Procedure(s): CARPAL METACARPAL ARTHROPLASTY, TRAPEZIECTOMY, LIGAMENT RECONSTRUCTION, TENDON INTERPOSITION Anesthesia History Anesthesia History - medical reviewer: Anesthesia History - medical reviewer Hx Hospitalization No 05/12/24 11:05 Any Problems With Anesthesia No 05/12/24 11:05 Cholinesterase deficiency No 05/12/24 11:05 You/Your Family Experience No 05/12/24 11:05 fever (hyperthermia) with Relationship Recent Exposure to Contagious No 02/22/21 07:30 Disease Does patient have nerve No 05/12/24 11:05 stimulator Patient instructed to have device shut off --Does patient have Pacemaker or ICD? When Was Last Pacemaker Check QUESTION #4 FULL TEXT: You/Your Family Experience fever (hyperthermia) with Anesthesia Last Oral Intake Last Oral intake: Last Oral Intake NPO since Meds taken in AM with sips of water? Meds patient instructed to take am of surgery PONV PONV - medical reviewer: PONV - medical reviewer Female Yes 05/12/24 11:05 HX of Motion Sickness Yes 05/12/24 11:05 HX of N/V After Surgery No 05/12/24 11:05 Non-Smoker Yes 05/12/24 11:05 Duration of Surgery greater Yes 05/12/24 11:05 than 60 minutes Number of Risk Factors 4 05/12/24 11:05 PONV Score Severe Risk 05/12/24 11:05 Height & Weight Height & Weight: Anesthesia: Height & Weight Height 5 ft 10 in 08/11/23 08:29 Respiratory Assessment Respiratory Assessment - medical reviewer: Respiratory Tract Infection Hx - medical reviewer Hx Respiratory Tract Infection No 05/12/24 11:05 STOP Sleep Apnea STOP Sleep Apnea - medical reviewer: STOP Sleep Apnea - medical reviewer Hx Hypertension Yes: CONTROLLED WITH MEDS 05/12/24 11:05 Hx Sleep Apnea No 05/12/24 11:05 CPAP BIPAP Do you snore loudly (louder No 05/12/24 11:05 than talking or can be heard Do you often feel tired/ No 05/12/24 11:05 fatigued/ sleepy during daytime? Has anyone observed you stop No 05/12/24 11:05 breathing during sleep? STOP Results Negative 05/12/24 11:05 QUESTION #5 FULL TEXT : Do you snore loudly (louder than talking or can be heard through closed doors)? 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 Specify any problems Hx of Preganancy in last 3 No 05/12/24 11:05 Months Nurse Filling Out Transfusion [email or web address] 05/12/24 11:05 & Questions: Date: 05/12/24 05/12/24 11:05 Time: 11:08 05/12/24 11:05 Patient unable to answer at this time (ie. confused, unrespo /Reproduction History /Reproductive History - medical reviewer: /Reproductive Hx- medical reviewer Hx Now Gestational Age (in weeks): EDC: Hx Hx Para Hx Section SAB No 02/20/21 08:22 PFSH Medical History (Updated 05/12/24 @ 11:13 by Bernard Hernadez) History of steroid therapy History of Holter monitoring Cardiology follow-up encounter Wears glasses Wears dentures Arthritis Bladder disease Pulmonary embolism High cholesterol Restless legs Back pain History of IBS History of Crohn's disease Gastric reflux Former smoker Leg cramps History of pain when walking Hypertension History of stress test Hx of echocardiogram History of atrial fibrillation History of trigger finger Wide-complex tachycardia (04/27/20) COVID-19 virus detected (01/24/20) Obesity Lumbar stenosis without neurogenic claudication Essential (primary) hypertension History of pulmonary embolus (PE) (04/09/18) Thyroid goiter History of meningioma of the brain Crohn disease Anxiety and depression Shortness of breath Palpitations Hyperlipidemia Paroxysmal atrial fibrillation Home Medications ?Medication ?Instructions ?Recorded ?Last Taken ?Type oxycodone-acetaminophen 5 mg-325 1 tab PO Q4H PRN Pain 07/02/17 04/08/18 22:00 History mg tablet pantoprazole 40 mg tablet,delayed 40 mg PO DAILY 10/13/18 02/22/21 History release (Protonix) 40 MG ropinirole 0.5 mg tablet 0.5 mg PO BID 10/13/18 02/22/21 History 1 MG cephalexin 250 mg tablet 250 mg PO DAILY 09/23/19 Unknown History cyclobenzaprine 10 mg tablet 10 mg PO PRN PRN MUSCLE RELAXANT 09/23/19 Unknown History hydrochlorothiazide 25 mg tablet 25 mg PO DAILY 04/13/20 Unknown History latanoprost 0.005 % eye drops 1 drp EACH EYE QHS 04/13/20 Unknown History ropinirole 1 mg tablet 1 mg PO QHS 04/13/20 Unknown History aspirin 81 mg tablet,delayed 81 mg PO QHS 08/24/20 08/21/20 History release promethazine 25 mg tablet 25 mg PO Q6H PRN Nausea 08/24/20 Unknown History ustekinumab 90 mg/mL subcutaneous 90 mg subcut .Q2MO 08/24/20 Unknown History syringe (Stelara) bupropion HCl 150 mg tablet,12 hr 150 mg PO QAM 08/11/23 Unknown History sustained-release (Wellbutrin SR) sotalol 80 mg tablet 80 mg PO BID #180 TABLETS 08/25/23 Unknown Rx gabapentin 400 mg capsule 400 mg PO TID 05/12/24 Unknown History Allergy/AdvReac Type Severity Reaction Status Date / Time prednisone Allergy Itching Verified 05/12/24 11:00 hydrocodone (From Vicodin) AdvReac Severe GI upset Verified 05/12/24 11:00 propoxyphene (From AdvReac Severe GI upset Verified 05/12/24 11:00 Darvocet-N) cortisone AdvReac Intermediate Unknown Verified 05/12/24 11:00 Family History Mother CAD (coronary artery disease) Myocardial infarction Father Hypertension Brother CAD (coronary artery disease) Surgical History History of cystoscopy History of tonsillectomy and adenoidectomy Hx laparoscopic cholecystectomy History of carpal tunnel surgery of right wrist Hx of bilateral breast reduction surgery History of back surgery (04/2020) History of lobectomy of thyroid Hx of craniotomy Social History Smoking Status: Former smoker alcohol intake: never substance use type: does not use caffeine: Yes Type: carbonated beverages Number of servings: 2 what type of physical activity do you participate in: walking frequency: 3-4 times per week duration: 30-45 minutes/day seatbelt use: always do you feel safe at home: Yes Audit: Pertinent Findings Pertinent Findings EKG Perinent findings: 08/11/2023 sinus rhythm frequent PACs Echo (EF%) pertinent findings: 04/27/2020 EF 65%. PA pressure 23 Consult pertinent findings: Cardiology 08/11/2023. 1. Paroxysmal A-fib. Continue sotalol and ASA. 2. Hypertension. Chronic. Controlled on hydrochlorothiazide. Recommendation Anesthesia Recommendation Anesthesia recommendation: OPTIMIZED for anesthesia
--- NOTE | 2024-05-21 07:45 | EKG12_ITS ---
Test Reason : PRE OP Blood Pressure : */* mmHG Vent. Rate : 63 BPM Atrial Rate : 63 BPM P-R Int : 194 ms QRS Dur : 92 ms QT Int : 414 ms P-R-T Axes : 51 45 41 degrees QTcB Int : 423 ms Normal sinus rhythm Normal ECG Confirmed by BYRON RICK, BENJAMIN ([id number]), assignment editor ATUL MARINO ([id number]) on 05/24/2024 10:51:06 AM Referred By: Bruno Avila Confirmed By: BENJAMIN MATTHEWS MD
[2024-05-27] VITALS (10 sets, daily range): BP systolic 101–118; BP diastolic 51–65; PULSE 69–79; RESP 16–22; TEMP 36.2–37; O2SAT 92–98; BMI 36.0
[2024-05-27] MEDS: 0.9% Normal Saline (1000mL) 1,000 ML 15 ML IV (10:56)
--- NOTE | 2024-05-27 11:05 | PCM.PRE.AN2 ---
ASA Classification* ASA Classification ASA Classification: 3 Assessment & Plan Anesthesia* Anesthesia Assessment Anesthesia Assessment: Discussed sedation and/or anesthesia options, risks, benefits, and alternatives with patient/parents/legal guardian/POA. Questions invited. The patient/parents/legal guardian/POA seems to understand and agrees to proceed with anesthesia plan. Reviewed the physical assessment, medical history, allergy history and patient home medications list prior to surgery/procedure/anesthetic and documented any changes. Performed airway and anesthesia risk assessments. Anesthesia Type Anesthesia Type: General and Block (Patient is consented for axillary block.) History Source History Obtained from:: Patient and Chart Anesthesia Focused Assessment* Temperature: 97.2 F Pulse Rate: 76 Blood Pressure: 117/65 Respiratory Rate: 18 Pulse Ox: 92 Oxygen Delivery Method: Room Air Airway Assessment Mouth opens: >3 cm Mallampati Score: IV Teeth Condition: Dentures (Patient has full upper and lower dentures. They will come out prior to surgery.) Neck Range of motion (ROM): Limited ROM (Slight decrease in extension) Focused Labs Anesthesia Preop lab: CBC WBC 7.2 K/mm3 (4.4-11.0) 05/10/24 09:16 05/10/24 RBC 5.45 M/mm3 (4.2-5.4) H 05/10/24 09:16 05/10/24 Hgb 14.7 g/dL (12.0-15.0) 05/10/24 09:16 05/10/24 Hct 45.9 % (37-47) 05/10/24 09:16 05/10/24 Plt Count 241 K/mm3 (150-450) 05/10/24 09:16 05/10/24 CHEMISTRY Potassium 4.0 mmol/L (3.3-5.1) 05/10/24 09:16 05/10/24 Sodium 137 mmol/L (133-145) 05/10/24 09:16 05/10/24 Magnesium 2.1 mg/dL (1.6-2.6) 08/11/23 09:16 08/11/23 BUN 9 mg/dL (4-19) 05/10/24 09:16 05/10/24 Creatinine 0.65 mg/dL (0.70-1.20) L 05/10/24 09:16 05/10/24 Glucose 114 mg/dL (70-99) H 05/10/24 09:16 05/10/24 TSH 2.73 uIU/mL (0.358-3.74) 08/11/23 09:16 08/11/23 COAG PT 12.5 SECONDS (11.7-14.9) 04/14/20 08:13 04/14/20 Pre-Assessment Diagnosis/Proposed Procedure Planned Operative Procedure(s): CARPAL METACARPAL ARTHROPLASTY, TRAPEZIECTOMY, LIGAMENT RECONSTRUCTION, TENDON INTERPOSITION Anesthesia History Anesthesia History - musical string maker: Anesthesia History - musical string maker Hx Hospitalization No 05/12/24 11:05 Any Problems With Anesthesia No 05/12/24 11:05 Cholinesterase deficiency No 05/12/24 11:05 You/Your Family Experience No 05/12/24 11:05 fever (hyperthermia) with Relationship Recent Exposure to Contagious No 05/27/24 10:37 Disease Does patient have nerve No 05/12/24 11:05 stimulator Patient instructed to have device shut off --Does patient have Pacemaker No 05/27/24 10:40 or ICD? When Was Last Pacemaker Check QUESTION #4 FULL TEXT: You/Your Family Experience fever (hyperthermia) with Anesthesia Last Oral Intake Last Oral intake: Last Oral Intake NPO since 22:00 05/27/24 10:40 Meds taken in AM with sips of Yes 05/27/24 10:40 water? Meds patient instructed to take am of surgery PONV PONV - musical string maker: PONV - musical string maker Female Yes 05/12/24 11:05 HX of Motion Sickness Yes 05/12/24 11:05 HX of N/V After Surgery No 05/12/24 11:05 Non-Smoker Yes 05/12/24 11:05 Duration of Surgery greater Yes 05/12/24 11:05 than 60 minutes Number of Risk Factors 4 05/12/24 11:05 PONV Score Severe Risk 05/12/24 11:05 Height & Weight Height & Weight: Anesthesia: Height & Weight Height 5 ft 10 in 05/27/24 10:40 Weight: 113.852 kg 05/27/24 10:40 Body Mass Index (BMI) 36.0 05/27/24 10:40 Respiratory Assessment Respiratory Assessment - musical string maker: Respiratory Tract Infection Hx - musical string maker Hx Respiratory Tract Infection No 05/12/24 11:05 STOP Sleep Apnea STOP Sleep Apnea - musical string maker: STOP Sleep Apnea - musical string maker Hx Hypertension Yes: CONTROLLED WITH MEDS 05/12/24 11:05 Hx Sleep Apnea No 05/12/24 11:05 CPAP BIPAP Do you snore loudly (louder No 05/12/24 11:05 than talking or can be heard Do you often feel tired/ No 05/12/24 11:05 fatigued/ sleepy during daytime? Has anyone observed you stop No 05/12/24 11:05 breathing during sleep? STOP Results Negative 05/12/24 11:05 QUESTION #5 FULL TEXT : Do you snore loudly (louder than talking or can be heard through closed doors)? 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 Specify any problems Hx of Preganancy in last 3 No 05/12/24 11:05 Months Nurse Filling Out Transfusion [email or web address] 05/12/24 11:05 & Questions: Date: 05/12/24 05/12/24 11:05 Time: 11:08 05/12/24 11:05 Patient unable to answer at this time (ie. confused, unrespo /Reproduction History /Reproductive History - musical string maker: /Reproductive Hx- musical string maker Hx Now Gestational Age (in weeks): EDC: Hx Hx Para Hx Section SAB No 02/20/21 08:22 Active Medications Active Medications: Current Medications Generic Name Dose Route Start Last Admin Trade Name Freq PRN Reason Stop Dose Admin Cefazolin Sodium 2 gm/ N/A 20 mls @ 400 mls/hr 05/27/24 12:25 IV 05/27/24 12:27 PREOP ONE Sodium Chloride 1,000 mls @ 15 mls/hr 05/27/24 10:25 05/27/24 10:56 IV 06/01/24 23:44 15 mls/hr .Q48H VALERIE Administration PFSH Medical History History of steroid therapy History of Holter monitoring Cardiology follow-up encounter Wears glasses Wears dentures Arthritis Bladder disease Pulmonary embolism High cholesterol Restless legs Back pain History of IBS History of Crohn's disease Gastric reflux Former smoker Leg cramps History of pain when walking Hypertension History of stress test Hx of echocardiogram History of atrial fibrillation History of trigger finger Wide-complex tachycardia (04/27/20) COVID-19 virus detected (01/24/20) Obesity Lumbar stenosis without neurogenic claudication Essential (primary) hypertension History of pulmonary embolus (PE) (04/09/18) Thyroid goiter History of meningioma of the brain Crohn disease Anxiety and depression Shortness of breath Palpitations Hyperlipidemia Paroxysmal atrial fibrillation Home Medications ?Medication ?Instructions ?Recorded ?Last Taken ?Type oxycodone-acetaminophen 5 mg-325 1 tab PO Q4H PRN Pain 07/02/17 04/08/18 22:00 History mg tablet pantoprazole 40 mg tablet,delayed 40 mg PO DAILY 10/13/18 05/27/24 07:30 History release (Protonix) ropinirole 0.5 mg tablet 0.5 mg PO BID 10/13/18 05/26/24 History cephalexin 250 mg tablet 250 mg PO DAILY 09/23/19 05/26/24 History cyclobenzaprine 10 mg tablet 10 mg PO PRN PRN MUSCLE RELAXANT 09/23/19 Unknown History hydrochlorothiazide 25 mg tablet 25 mg PO DAILY 04/13/20 Unknown History latanoprost 0.005 % eye drops 1 drp EACH EYE QHS 04/13/20 Unknown History ropinirole 1 mg tablet 1 mg PO QHS 04/13/20 05/26/24 History aspirin 81 mg tablet,delayed 81 mg PO QHS 08/24/20 05/26/24 History release promethazine 25 mg tablet 25 mg PO Q6H PRN Nausea 08/24/20 Unknown History ustekinumab 90 mg/mL subcutaneous 90 mg subcut .Q2MO 08/24/20 Unknown History syringe (Stelara) bupropion HCl 150 mg tablet,12 hr 150 mg PO QAM 08/11/23 05/26/24 History sustained-release (Wellbutrin SR) sotalol 80 mg tablet 80 mg PO BID #180 TABLETS 08/25/23 05/27/24 07:30 Rx gabapentin 400 mg capsule 400 mg PO TID 05/12/24 05/27/24 07:30 History Allergy/AdvReac Type Severity Reaction Status Date / Time prednisone Allergy Itching Verified 05/27/24 10:34 hydrocodone (From Vicodin) AdvReac Severe GI upset Verified 05/27/24 10:34 propoxyphene (From AdvReac Severe GI upset Verified 05/27/24 10:34 Darvocet-N) cortisone AdvReac Intermediate Unknown Verified 05/27/24 10:34 Family History Mother CAD (coronary artery disease) Myocardial infarction Father Hypertension Brother CAD (coronary artery disease) Surgical History History of cystoscopy History of tonsillectomy and adenoidectomy Hx laparoscopic cholecystectomy History of carpal tunnel surgery of right wrist Hx of bilateral breast reduction surgery History of back surgery (04/2020) History of lobectomy of thyroid Hx of craniotomy Social History Smoking Status: Former smoker alcohol intake: never substance use type: does not use caffeine: Yes Type: carbonated beverages Number of servings: 2 what type of physical activity do you participate in: walking frequency: 3-4 times per week duration: 30-45 minutes/day seatbelt use: always do you feel safe at home: Yes Review of Systems (Anesthesia) ROS Narrative System reviewed and no additional complaints, except as documented.
[2024-05-27] MEDS: Cefazolin 2 GM in Syringe IV (11:53)
--- NOTE | 2024-05-27 12:15 | RAD_ITS ---
EXAM: XR Left Hand, 2 Views CLINICAL INDICATION: PAIN TECHNIQUE: Frontal and lateral views of the left hand. COMPARISON: No relevant prior studies available. FINDINGS: BONES/JOINTS: Unremarkable. No acute fracture. No dislocation. SOFT TISSUES: Unremarkable. No radiopaque foreign body. OTHER FINDINGS: Multiple fluoroscopic spot images were used intraoperatively for guidance. A total 4 images were obtained. Total fluoroscopy time 9.3 seconds. Total radiation dose 0.24 mGy. RAD/Hand 2 Views IMPRESSION: Fluoroscopic guidance used intraoperatively. Please refer to the operative not e for further details. Reading Location: [facility]
--- NOTE | 2024-05-27 13:41 | OP.PCM_ITS ---
Operative Report (Standard) Operative Information Date of Procedure: 05/27/24 Pre-Operative Diagnosis: Right first carpal metacarpal joint osteoarthritis Post-Operative Diagnosis: Right first carpal metacarpal joint osteoarthritis Surgery/Procedure Performed: Right first carpometacarpal joint arthroplasty with trapezium excision, ligament reconstruction tendon interposition sales account representative: Yes Recreational Counselor: Makeda Hermosillo Tasks completed by surgical supply assistant: Opening & closing and Implanting device Type of Anesthesia: Block,Axillary and General RN Documented Start/Stop Times: Operation Date: 05/27/24 11:45 Case Time Into Pre-Op 05/27/24 10:22 Anesthesia Start 05/27/24 11:48 Into Room 05/27/24 11:48 Out of Pre-Op 05/27/24 11:48 Procedure Start 05/27/24 12:06 Procedure End 05/27/24 13:36 Anesthesia End 05/27/24 13:41 Out of Room 05/27/24 13:41 Procedure Start Time: 12:06 Procedure Stop Time: 13:36 Select all DRAINS/GRAFTS/IMPLANTS that apply: Implanted device Implanted device details: Arthrex bio composite 4 x 10 mm tenodesis screw, fiber tape suture Estimated Blood Loss: 10 cc Specimen collected: No Description of surgery: Patient was seen in preoperative holding area. She was identified by name, medical record number, date of . The operative extremity was marked with a surgical marker. We confirmed informed consent with the patient and all questions were answered to his satisfaction. Axillary block was then placed by anesthesia staff prior to the procedure. At time of her procedure, patient was brought to the operative suite and positioned supine a standard operating table. All bony prominences were well- padded. General anesthesia was induced and endotracheal tube placed. The right upper extremity was then prepped for surgery by first applying a well-padded pneumatic tourniquet to the right upper arm. The hand table attached to the right side of the table. We spun the bed 90 degrees. The right upper extremities then prepped and draped in normal, sterile orthopedic fashion. 2 g Ancef was administered prior to incision by anesthesia staff. We performed a timeout at this point confirming side, site, and operation to be performed. No concerns voiced and elected to proceed. We first exsanguinated the right upper extremity with an Esmarch bandage. Tourniquet was inflated to 250 mmHg, approximately 1 hour inflation time. I first made my incision overlying the anatomic snuffbox of the right dorsal first CMC. Incision was carried sharply through skin and subcutaneous tissue. Superfic ial veins were cauterized. Superficial sensory branches from the radial nerve were protected and retracted. We bluntly dissected through the fascia down to the level of the dorsal branch of the radial artery. I retracted this dorsally after cauterizing capsular branches from the radial artery using bipolar cautery. We then identified the dorsal radial capsule of the first CMC. This was split in line with the incision and elevated subperiosteally. The trapezium was then freed from capsular attachment sharply with 15 blade scalpel and subsequently with a McGlamry elevator. We were able to free the trapezium circumferentially and excised the trapezium en bloc. This was examined and had severe degenerative changes on the distal articular surface at the first CMC. The trapezoid was examined and appeared unremarkable. The FCR was identified in the wound. Attenuation of the tendon was noted at this time. The wound was copiously irrigated with normal saline and any loose pieces of cartilage were debrided. I then turned my attention to the flexor carpi radialis and the right mid to distal forearm. A transverse incision approximately 5 mm was made overlying the flexor carpi radialis tendon. Superficial vein was identified and cauterized with bipolar cautery. I was then able to bluntly dissect through the tendon sheath down the level of the tendon. A Ragnell retractor was placed underneath the tendon and the tendon was pulled out of the wound. Sharply transected the tendon at the level of the incision. I then used a right angle hemostat to retrieve the flexor carpi radialis tendon from the distal wound. When I retrieved the distal tendon, it was noted that a complete rupture had occurred at the distal insertion of the FCR tendon. I made a decision to proceed with a suture suspensioplasty. FCR tendon stump was identified. I used a #2 tape suture to establish our suspensioplasty by first securing into the distal tendon stump of the FCR tendon. I drilled in standard fashion at the base of the fifth metacarpal and passed a single limb of suture within the first metacarpal base and another limb around the base. Sutures were then tensioned and tied. I did place our tenodesis screw for additional fixation within the bony tunnel. The first metacarpal base was stable to axial traction with appropriate pistoning and stability. The FCR tendon that was harvested was then wrapped in an accordion fashion and secured with a 3-0 Ethibond suture to the capsule. Final images were obtained. We then deflated the tourniquet. Hemostasis was excellent. I closed the caps ule in watertight fashion with an 0 Vicryl suture. Subcutaneous layers were reapproximated with 3-0 Vicryl in a running subcuticular Monocryl. Dermabond was used to finally reapproximate skin. Sterile compression dressing was applied. A well-padded thumb spica fiberglass splint was then applied. Patient tolerated procedure well without apparent complication. She was subsequently extubated and transferred to PACU in stable condition. Need for skilled catering administrative assistant: Makeda Hermosillo PA-C was critical to the outcome of the case. During the course of the procedure the physician catering administrative assistant played a vital role. Her intimate knowledge of my steps in the procedure aided in safe and expedient completion of the procedure. The PA played a vital role in positioning particularly in obtaining the appropriate positioning. The PA was also vital in the retraction of soft tissues during the exposure and protecting vital structures. The PA was also vital and obtaining reduction and assisting with hardware placement. She also played a vital role in closure and splint application with my direct supervision. Intraoperative medications: 2 g Ancef administered by anesthesia prior to incision Post Operative Plan: Weightbearing: Nonweightbearing operative extremity Antibiotics: Ancef 2 g x 1 dose preoperatively DVT Prophylaxis: 81 mg aspirin twice daily beginning postoperative day number 1 x 2 weeks Jalloh: None Dressing: Maintain splint, keep it clean dry and intact until follow-up. Plan to transition to short arm thumb spica cast for an additional 2 weeks for a total immobilization time of 4 weeks. X-Rays: 2 weeks postop in the office Pain Medication: Oxycodone Rx upon discharge Follow-up: 2 weeks post-operatively with me in the office Surgical Findings: Stable first metacarpal base following final fixation. FCR rupture. Complications Complications: No Admit VTE Documentation VTE Present on Admission: No VTE Mechan Device Prophylaxis: SCD's VTE Pharm Prophylaxis ordered?: Yes
--- NOTE | 2024-05-27 13:46 | PCM.POST.ANE ---
Anesthesia: Postop Eval I Current Vital Signs Temperature: 98.6 F Pulse Rate: 79 Blood Pressure: 118/61 Respiratory Rate: 22 Pulse Ox: 95 Oxygen Delivery Method: Room Air Assessment Airway patent: Yes Spontaneous unlabored respirations: Yes Mental status: Awake and Calm nausea: No Vomiting: No Anesthesia Complication: No Fluid Hydration Crystalloid volume administer (ml): 800 Total IV fluid infused: 800 Progress Note Anesthesia document: Postop Eval 1 completed: Yes
--- NOTE | 2024-05-27 14:41 | POSTOPAN2_ITS ---
Anesthesia Postop Eval I Sum Postop Eval Completion status Anesthesia document: Postop Eval 1 completed: Yes Anesthesia Postop Eval I Summary Anesthesia Postop Eval I Summary: Anesthesia Postop Eval I: Assessment Summary Airway patent Yes 05/27/24 13:47 TRAINING [email or web address] Spontaneous unlabored Yes 05/27/24 13:47 TRAINING LEAD.OS respirations Mental status Awake,Calm 05/27/24 13:47 TRAINING [email or web address] nausea No 05/27/24 13:47 TRAINING [email or web address].[email or web address] Vomiting No 05/27/24 13:47 TRAINING LEAD.[facility] Anesthesia Postop Eval I: Fluid Summary Crystalloid volume administer 800 05/27/24 13:47 TRAINING [email or web address].BHOS (ml) Colloids volume administered ( ml) Blood Product volume administered (ml) Total IV fluid infused 800 05/27/24 13:47 TRAINING LEAD.OS Anesthesia Postop Eval I: Summary Notes Anesthesia Complication No 05/27/24 13:47 TRAINING LEAD.[facility] Anesthesia Complication Comment: Post-operative progress note Anesthesia: Postop Eval II Evaluation Mental status: Awake Pain Level: 1 nausea: No Vomiting: No
--- NOTE | 2024-05-27 14:41 | PCM.POSTANE2 ---
Anesthesia Postop Eval I Sum Postop Eval Completion status Anesthesia document: Postop Eval 1 completed: Yes Anesthesia Postop Eval I Summary Anesthesia Postop Eval I Summary: Anesthesia Postop Eval I: Assessment Summary Airway patent Yes 05/27/24 13:47 [email or web address] Spontaneous unlabored Yes 05/27/24 13:47 [email or web address] respirations Mental status Awake,Calm 05/27/24 13:47 [email or web address] nausea No 05/27/24 13:47 [email or web address] Vomiting No 05/27/24 13:47 [email or web address].[email or web address] Anesthesia Postop Eval I: Fluid Summary Crystalloid volume administer 800 05/27/24 13:47 [email or web address] (ml) Colloids volume administered ( ml) Blood Product volume administered (ml) Total IV fluid infused 800 05/27/24 13:47 [email or web address] Anesthesia Postop Eval I: Summary Notes Anesthesia Complication No 05/27/24 13:47 [email or web address].[email or web address] Anesthesia Complication Comment: Post-operative progress note Anesthesia: Postop Eval II Evaluation Mental status: Awake Pain Level: 1 nausea: No Vomiting: No
== END 2024-05-27 15:05 | disposition home or self-care (01) ==
LOC: SDC 10:08 → AC 10:08
PROVIDERS: PCP Family Medicine; Referring Provider Student in an Organized Health Care Education/Training Program; Visit Provider Student in an Organized Health Care Education/Training Program
PROC: (CPT 25447; principal; 2024-05-27 11:30)
DX: M18.11 Unilateral primary osteoarthritis of first carpometacarpal joint, right hand (principal); K50.90 Crohn's disease, unspecified, without complications; I48.91 Unspecified atrial fibrillation; F32.A Depression, unspecified; Z79.82 Long term (current) use of aspirin; Z79.899 Other long term (current) drug therapy; Z86.711 Personal history of pulmonary embolism; Z87.891 Personal history of nicotine dependence
CPT/HCPCS: 25447; 01830; 36415; 73120; 76000; 80048; 85025; 93005; J2405

== ENCOUNTER 2024-07-20 11:30 | Outpatient (RCR) | payer OTHER, SELFPAY ==
--- NOTE | 2024-06-28 17:46 | HP.OTEVAL ---
Patient's Visit Information Visit Information Visit Information: AMANDA SANCHEZ is a 69 year old F, referred to Occupational Therapy by Dr. Bruno Avila DO, with a diagnosis of right primary OA cmcJ. Date of Evaluation: 06/28/24 Occupational Therapist: ANTHONY Durant/Lashaun, CHT Subjective Subjective: This 69 year old female was seen for OT eval with dx of right unilateral primary osteoarthritis of first carpometacarpal joint. pt states she had difficulty with right thumb pain for years and went through a number of injections. pt states when last injection- pt is right handed pt arrives with cast on and ready to remove the cast and get into the orthosis. pt denies pain at this time- pt states her does help her with daily tasks ( cooking, laundry etc) Pain right thumb/hand: Current Pain Intensity: 0 Pain Intensity Range: 0 and 1 ROM Wrist: right 40/ 20 left 65/60 CMC: right 10 left 20 MP: right 20 left 60 IP: right 20 left 60 Strength Automotive Service Assistant: right NT left 65# Lateral Pinch: right NT left 12# Tripod Pinch: right NT left 16# Sensation Sensation Comments: denies Goals Goal:Daily scar massage when approriate: Yes Goal:ROM equal to unaffected hand: Yes Goal:Automotive Service Assistant/Pinch strength at least 75% of unaffected hand: Yes Comment: will not initiate until week 6 for cooper helper/pinch at week 8 or later Goal:No pain with affected hand use: Yes Goal:Full use of affected hand in daily activities including work: Yes Other Goal: Orthosis use: pt will demo understanding of using orthosis and skin care precautions by end of 1st session. Rehabilitation General Assessment: pt arrives s/p 4 weeks and 4 days s/p right cmc arthroplasty. Pt currently limited with ROM and strength due to newly healing structures. This increases need of assistance by her to assist with IADLs and some ADLs. pt demo need for skilled OT services 1-2x week for 6-8 weeks to return pt to her PLOF. Today therapist abe. custom orthosis to provide support and protection while healing. therapist ed. in skin care and precautions- also ed. pt on short arch wrist ROM and supporting CMC to allow for light IP and MP motion- pt to initiate scar mobilization - pt was given handout and demo understanding and agree to POC. Rehabilitation Potential: Good Anticipated Interventions Anticipated Interventions: A/AAROM/PROM, Strengthening, Scar Care, Modalities, Orthoses, Joint Protection/Energy Conservation, Ergonomic Education, Fine Motor Coord/Gio, Education re assistive Equipment and Education re Diagnosis Visit Plan Frequency: 1-2x /Week Duration: 6-8 weeks General Plan: CMC arthroplasty Week 4: exercise- AROM performed for digits and thumb IP joint only Begin short arc wrist motion - initiate scar mtg Week 4: thumb spica -Begin PROM to wrist if tight- AROM for thumb CMC- joint- cont. scar mtg/edema control (modalities as indicated for pain and edema. Week 6: comfort cool splint orthoplast splint at night and heavy activity. Exercise: start gentle strengthening(thera-putty), progress as tolerated Progress to wrist strengthening and heavier prehension tasks at 8 weeks post-operative *Avoid forceful extension of thumb * Week 8 D/C orthoplast splint by week 8 except for heavy activity PRN -progress to wrist strengthening and heavier prehension tasks *Avoid forceful extension of the thumb* Expectations: Most patients are treated with a Home Program and checked after each MD visit for program progression 2x weekly for 4-6 weeks for symptomatic patients or those returning to heavier work demands. 2 months to resume normal activities, 3 months for strenuous 3-6 months to reach optimum results slight decrease in pinch and cooper helper strength generally, gain 70% of strength and motion of unoperated hand. TEXT: Thank you for the opportunity to evaluate your patient. For Medicare and Medicare HMO plans, please review the plan of care and approve it. It will need to be FAXED BACK to us at [phone] for Medicare purposes. Please let me know if there are questions or concerns regarding this plan of care. Physician Signature: Date:
--- NOTE | 2024-07-20 12:00 | OTREVAL_ITS ---
Re-Evaluation Intro: Dr. Bruno Avila, DO, It has been my pleasure to treat AMANDA SANCHEZ over the last 4 visits for right primary OA cmcJ. Please see the progress note below for an update on the occupational therapy plan of care! Subjective Subjective: pt arrives 7 weeks and 5 days s/p from cmc arthroplasty. pt states she is doing well- pt states she is using her right hand with bathing and dressing, light cleaning and light cooking. pt states she does go to the grocery store and will push her cart ok. carries bags in the home. pt states she is driving now. Objective Objective/Function: right wrist 55/30 right IP 40* right MP 40* right boilermaker pipe fitter strength 32# left is 55# right lateral pinch 6# pt is making good gains with her ROM and strength. she returns to next week and will see if he would like her to cont. with therapy vs HEP. Plan Plan Visits in this POC: 12 Plan: light strengthening will return to next week to see if he agrees with cont. of therapy vs HEP. Pt demo understanding of his HEP. Goals Goals Patient Goals: Regain Mobility, Improve Fine Motor Skills, Use Hand/Wrist/Arm Normally Again and Be More Independent in ADLS Goal:Daily scar massage when approriate: Yes Goal:ROM equal to unaffected hand: Yes Goal:Real Estate Appraiser Supervisor/Pinch strength at least 75% of unaffected hand: Yes Goal:No pain with affected hand use: Yes Goal:Full use of affected hand in daily activities including work: Yes Other Goal: Orthosis use: pt will demo understanding of using orthosis and skin care precautions by end of 1st session. Anticipated Interventions Anticipated Interventions Anticipated Interventions: A/AAROM/PROM, Strengthening, Scar Care, Modalities, Orthoses, Joint Protection/Energy Conservation, Ergonomic Education, Fine Motor Coord/Gio, Education re assistive Equipment and Education re Diagnosis Re-Evaluation Ending Re-evaluation ending: Please do not hesitate to contact me at [phone] by phone or Fax: if you have questions or concerns regarding this new plan of care! Sincerely, Janeth Nash, OTR/L, CHT
--- NOTE | 2024-11-11 09:20 | HP.OT.NRP ---
Patient Information Patient Information: AMANDA SANCHEZ was seen in my office for initial evaluation on 06/28/24. The following Plan of Care was established for this patient: POC Established Initial Frequency: 1-2x /Week Initial Duration: 6-8 weeks Plan: light strengthening will return to DrMarek next week to see if he agrees with cont. of therapy vs HEP. Pt demo understanding of his HEP. Anticipated Interventions Anticipated Interventions: A/AAROM/PROM, Strengthening, Scar Care, Modalities, Orthoses, Joint Protection/Energy Conservation, Ergonomic Education, Fine Motor Coord/Gio, Education re assistive Equipment and Education re Diagnosis Last Seen Last Seen: This patient was last seen in our office 07/20/24. Pertinent comments regarding their Occupational therapy will appear below: No further apts have been scheduled and due to time lapse in services pt is d/c. At this point I will be discontinuing this patient from occupational therapy. I would be happy to see this patient again in the future if found appropriate by the physician. Thank you! Janeth Nash, OTR/L, CHT
== END 2024-07-20 19:00 | disposition home or self-care (01) ==
LOC: OT 11:30
PROVIDERS: PCP Family Medicine; Referring Provider Student in an Organized Health Care Education/Training Program; Visit Provider Student in an Organized Health Care Education/Training Program
DX: M18.11 Unilateral primary osteoarthritis of first carpometacarpal joint, right hand (principal)
CPT/HCPCS: 97110; 97140; 97166; 97530; 97760

== ENCOUNTER → 2024-08-04 | Outpatient (CLI) | payer OTHER, SELFPAY ==
--- NOTE | 2024-08-04 08:49 | BI_ITS ---
EXAM: SCRN MAMM (CAD)W/PATEL BILAT 08/04/2024 CLINICAL HISTORY: F, Age 69 y/o , SCREENING TECHNIQUE: Bilateral screening digital breast tomosynthesis with 2D and 3D images. Computer aided detection. COMPARISON: Prior exam(s) dated 01/24/2021, 11/29/2019, 10/07/2018. FINDINGS: TISSUE DENSITY: The breast tissue is composed of scattered area of fibroglandular density. Bilateral Breast Mammographic Findings: No significant masses, calcifications or other abnormalities are identified. BI/SCRN MAMM (CAD)W/PATEL BILAT IMPRESSION: Right Breast: BIRADS 1 NEGATIVE. Left Breast: BIRADS 1 NEGATIVE. OVERALL FINAL ASSESSMENT: BIRADS 1 NEGATIVE. RECOMMENDATION: Routine annual follow-up in 1 Year A letter with findings and recommendations will be mailed to the patient. Reading Location: [id number]
== END | disposition home or self-care (01) ==
PROVIDERS: PCP Family Medicine; Referring Provider Family Medicine; Visit Provider Family Medicine
DX: Z12.31 Encounter for screening mammogram for malignant neoplasm of breast (principal)
CPT/HCPCS: 77063; 77067

== ENCOUNTER 2024-08-15 01:45 | Emergency (ER) | payer OTHER, SELFPAY ==
[2024-08-15 01:47] VITALS: BP 119/94; PULSE 135; RESP 18; TEMP 36.7; O2SAT 98; BMI 37.5
--- NOTE | 2024-08-15 02:03 | EX.ED.DYSGE1 ---
HPI History of Present Illness Chief Complaint: Palpitations Informant: patient Narrative Narrative: Palpitations recurrent A-fib waking her at 11:30 PM 2.5 hours ago. Went to bed feeling fine. History of paroxysmal A-fib followed by ramp service employee Dr. Keane. She states she had a brain tumor craniotomy 2004 therefore she election was not to do anticoagulants. She has no recent illness no cough no recent vomiting or diarrhea. No coronary disease history. She is on sotalol she took extra half dose of sotalol at midnight as treatment plans with her ramp service employee. She still feels symptoms. Prior similar symptoms: Yes PFSH [facility] Medical History History of steroid therapy History of Holter monitoring Cardiology follow-up encounter Wears glasses Wears dentures Arthritis Bladder disease Pulmonary embolism High cholesterol Restless legs Back pain History of IBS History of Crohn's disease Gastric reflux Former smoker Leg cramps History of pain when walking Hypertension History of stress test Hx of echocardiogram History of atrial fibrillation History of trigger finger Wide-complex tachycardia (04/27/20) COVID-19 virus detected (01/24/20) Obesity Lumbar stenosis without neurogenic claudication Essential (primary) hypertension History of pulmonary embolus (PE) (04/09/18) Thyroid goiter History of meningioma of the brain Crohn disease Anxiety and depression Shortness of breath Palpitations Hyperlipidemia Paroxysmal atrial fibrillation Home Medications ?Medication ?Instructions ?Recorded ?Last Taken ?Type oxycodone-acetaminophen 5 mg-325 1 tab PO Q4H PRN Pain 07/02/17 04/08/18 22:00 History mg tablet pantoprazole 40 mg tablet,delayed 40 mg PO DAILY 10/13/18 05/27/24 07:30 History release (Protonix) cephalexin 250 mg tablet 250 mg PO DAILY 09/23/19 05/26/24 History cyclobenzaprine 10 mg tablet 10 mg PO PRN PRN MUSCLE RELAXANT 09/23/19 Unknown History hydrochlorothiazide 25 mg tablet 25 mg PO DAILY 04/13/20 Unknown History latanoprost 0.005 % eye drops 1 drp EACH EYE QHS 04/13/20 Unknown History aspirin 81 mg tablet,delayed 81 mg PO QHS 08/24/20 05/26/24 History release promethazine 25 mg tablet 25 mg PO Q6H PRN Nausea 08/24/20 Unknown History ustekinumab 90 mg/mL subcutaneous 90 mg subcut .Q2MO 08/24/20 Unknown History syringe (Stelara) sotalol 80 mg tablet 80 mg PO BID #180 TABLETS 08/25/23 05/27/24 07:30 Rx gabapentin 400 mg capsule 400 mg PO TID 05/12/24 05/27/24 07:30 History betamethasone dipropionate 0.05 % 1 applic topical QDAY PRN skin 08/10/24 Unknown History topical ointment irritation bupropion HCl 150 mg 24 hr tablet, 150 mg PO QDAY 08/10/24 Unknown History extended release clobetasol 0.05 % topical cream 1 applic topical BID 08/10/24 Unknown History clotrimazole 1 % topical cream 1 applic topical BID 08/10/24 Unknown History ferrous sulfate 325 mg (65 mg 325 mg PO QDAY 08/10/24 Unknown History iron) tablet,delayed release hyoscyamine sulfate 0.125 mg 0.125 mg PO Q6 PRN nausea/vomiting 08/10/24 Unknown History disintegrating tablet primidone 50 mg tablet 100 mg PO BID 08/10/24 Unknown History ropinirole 0.5 mg tablet 0.5 mg PO .COMPLEX 08/10/24 Unknown History timolol maleate 0.5 % eye drops 1 drp ophthalmic (eye) DAILY 08/10/24 Unknown History Allergy/AdvReac Type Severity Reaction Status Date / Time prednisone Allergy Itching Verified 08/15/24 01:46 hydrocodone (From Vicodin) AdvReac Severe GI upset Verified 08/15/24 01:46 propoxyphene (From AdvReac Severe GI upset Verified 08/15/24 01:46 Darvocet-N) cortisone AdvReac Intermediate Unknown Verified 08/15/24 01:46 Family History Mother CAD (coronary artery disease) Myocardial infarction Father Hypertension Brother CAD (coronary artery disease) Surgical History History of thumb surgery (~05/2024) History of cystoscopy History of tonsillectomy and adenoidectomy Hx laparoscopic cholecystectomy History of carpal tunnel surgery of right wrist Hx of bilateral breast reduction surgery History of back surgery (04/2020) History of lobectomy of thyroid Hx of craniotomy Social History Smoking Status: Former smoker alcohol intake: never substance use type: does not use caffeine: Yes Type: carbonated beverages Number of servings: 2 what type of physical activity do you participate in: walking frequency: 3-4 times per week duration: 30-45 minutes/day seatbelt use: always do you feel safe at home: Yes ROS ROS ED Constitutional Constitutional ED: Denies chills, fever(s) or sweats ENT ENT ED: Denies sore throat Cardiovascular Cardiovascular: Reports palpitations and racing heartbeat; Denies chest pain or leg edema Respiratory/Chest Respiratory/Chest: Denies cough, dyspnea or dyspnea on exertion Gastrointestinal Gastrointestinal: Denies abdominal pain, diarrhea, nausea or vomiting Genitourinary Genitourinary ED: Denies dysuria, hematuria or urinary frequency Musculoskeletal Musculoskeletal: Denies back pain, extremity pain or neck pain Integumentary Denies rash or wounds Neurologic Neurologic: Denies headache(s), paresthesias or weakness EXAM Physical Exam Const Vital Signs: 08/15/24 01:47 08/15/24 01:49 Temperature 98.1 F Temperature Source Oral Pulse Rate 135 H Respiratory Rate 18 Respiratory Effort Normal Non-Labored Respiratory Pattern Normal Blood Pressure 119/94 H Blood Pressure Mean 102 Pulse Ox 98 Oxygen Delivery Method Room Air Positive well nourished and well developed General Appearance ED: well developed and NAD HEENT Reports moist mucous membranes normocephalic and atraumatic Eyes General Eye ED: Yes normal appearance of both eyes Neck full ROM Chest Wall Chest: Negative for tenderness Resp normal respiratory effort and normal air movement Effort and Inspection: symmetric chest movement; Negative for respiratory distress Cardio no murmurs Rate: tachycardic Rhythm: abnormal rhythm Peripheral Pulses: pulses 2+ throughout GI normal to inspection, nondistended, normoactive bowel sounds and non-tender Palpation: Negative for guarding or rebound tenderness present Extremity normal to inspection General Extremety ED: Negative for edema or tenderness General Extremity: Negative for edema Neuro oriented x3 and no sensory deficits noted Sensorium / Orientation: awake and alert Skin no rashes or lesions noted and no wounds MDM MDM MDM Narrative Medical decision making narrative: Interventions / MDM: Differential diagnosis: A-fib with RVR, Diagnosis considered but do not suspect: N/A My EKG interpretation: A-fib RVR rate 151, no ST changes. QTc 497. Repeat EKG at 0209: Sinus rate of [address] changes. QTc 431. Imaging independently reviewed and interpreted by myself: N/A External documents reviewed: N/A Test considered but not ordered:N/A ED course: EKG A-fib RVR blood pressure 119/94. IV established labs were sent. No clinical illnesses to cause recurrent A-fib last time she when A-fib was over a year ago. Symptoms onset 2.5 hours ago. 0200: I spoke with on-call ramp service employee Dr. Manuel, with patient's known feeling symptomatic 2 and half hours ago, discussed no current anticoagulants. Reports since symptoms are known, cardioversion can be performed discussing risk and benefits with the patient. She agrees to pursue. Will set up for cardioversion. Written consent. Risk and benefits discussed. Patient's last meal was 7 PM over 7 hours ago. 0208: Prior to any preparations, reported she may have converted. In the room she is sinus rate in the 80s. Blood pressure systolic 102. Will repeat EKG. 0209: Repeat EKG sinus rhythm. 0255: Labs all stable. Remains sinus rhythm rate in the 70s on reevaluation. Patient continue home medications. Follow-up with her ramp service employee. All questions were answered. Re-evaluation: stable Disposition discussed with patient/family/significant other: Case discussed with consulting clinician: Cardiology This note was generated with [employer] dictation software. It may contain incorrect words, spelling, and punctuation that were not noted in checking the note before signing. Lab Data Attestation: I reviewed the patient's lab results. Labs: Laboratory Results - last 24 hr 08/15/24 02:07 WBC 7.8 RBC 5.53 H Hgb 14.8 Hct 46.5 MCV 84.1 MCH 26.8 L MCHC 31.8 L RDW Std Deviation 41.9 RDW Coeff of Laura 13.7 Plt Count 238 MPV 11.1 Immature Gran % (Auto) 0.300 Neut % (Auto) 56.9 Lymph % (Auto) 29.9 Edwards % (Auto) 8.6 Eos % (Auto) 3.3 Baso % (Auto) 1.0 Absolute Neuts (auto) 4.4 Absolute Lymphs (auto) 2.33 Nucleated RBC % 0 PT 12.3 INR 0.9 APTT 22.6 L Sodium 139 Potassium 3.6 Chloride 100 Carbon Dioxide 27.8 Anion Gap 11 BUN 9 Creatinine 0.70 Estim Creat Clear Calc 92.81 Est GFR (MDRD) Non-Af 94 BUN/Creatinine Ratio 12.8 Glucose 138 H Calcium 9.1 Discharge Plan Triage Chief Complaint: Palpitations ED Provider: Hugh Hooker Dx/Rx/DC Orders Clinical Impression: Paroxysmal atrial fibrillation, Palpitations Instructions: AFib Dc Prescriptions: No Action oxycodone-acetaminophen 5-325 mg tablet 1 tab PO Q4H PRN (Reason: Pain) pantoprazole [Protonix] 40 mg tablet,delayed release (DR/EC) 40 mg PO DAILY ropinirole 0.5 mg tablet 0.5 mg PO .COMPLEX Rx Instructions: 0.5 mg orally; 1 qam, 2 @ 12, 2 qpm cyclobenzaprine 10 mg tablet 10 mg PO PRN PRN (Reason: MUSCLE RELAXANT) Patient Comments: take 1 tablet by mouth three times a day if needed for muscle spasm cephalexin 250 mg tablet 250 mg PO DAILY ferrous sulfate 325 mg (65 mg iron) tablet,delayed release (DR/EC) 325 mg PO QDAY primidone 50 mg tablet 100 mg PO BID hyoscyamine sulfate 0.125 mg tablet,disintegrating 0.125 mg PO Q6 PRN (Reason: nausea/vomiting) clotrimazole 1 % cream 1 applic topical BID betamethasone dipropionate 0.05 % ointment 1 applic topical QDAY PRN (Reason: skin irritation) clobetasol 0.05 % cream 1 applic topical BID bupropion HCl 150 mg tablet extended release 24 hr 150 mg PO QDAY timolol maleate 0.5 % drops 1 drp ophthalmic (eye) DAILY latanoprost 1 DROP bottle 1 drp EACH EYE QHS hydrochlorothiazide 25 MG tablet 25 mg PO DAILY aspirin 81 mg Tablet,Delayed Release (Dr/Ec) 81 mg PO QHS promethazine 25 mg Tablet 25 mg PO Q6H PRN (Reason: Nausea) ustekinumab [Stelara] 90 mg/mL Syringe 90 mg SUBCUT .Q2MO gabapentin 400 mg capsule 400 mg PO TID sotalol 80 mg tablet 80 mg PO BID Qty: 180 3RF Primary Care Provider: Matthew Wallace Referrals: Andrew Keane MD [Med Staff - Active Staff] - 1-2 Weeks Matthew Wallace DO [Primary Care Provider] - Activity Restrictions/Additional Instructions: You were in A-fib with RVR spontaneous converted before cardioversion needed. Continue your home medications. Follow-up with Dr. Keane. Print Language: Burkinan Disposition Disposition: Home, Self Care
[2024-08-15 02:06] VITALS: PULSE 85
--- NOTE | 2024-08-15 02:10 | EKG12_ITS ---
Test Reason : HIGH HR Blood Pressure : */* mmHG Vent. Rate : 151 BPM Atrial Rate : * BPM P-R Int : * ms QRS Dur : 92 ms QT Int : 314 ms P-R-T Axes : * 27 10 degrees QTcB Int : 497 ms Critical Test Result: High HR Atrial fibrillation with rapid ventricular response Possible Inferior infarct , age undetermined Abnormal ECG Confirmed by Chavez Schroeder ([id number]), editor school photograph ATUL MARINO ([id number]) on 08/16/2024 9:33:58 AM Referred By: Confirmed By: Chavez Schroeder
--- NOTE | 2024-08-15 02:14 | EKG12_ITS ---
Test Reason : REPEAT Blood Pressure : */* mmHG Vent. Rate : 79 BPM Atrial Rate : 79 BPM P-R Int : 190 ms QRS Dur : 92 ms QT Int : 376 ms P-R-T Axes : 28 26 25 degrees QTcB Int : 431 ms Normal sinus rhythm Normal ECG Confirmed by Chavez Schroeder ([id number]), photograph editor ATUL MARINO ([id number]) on 08/16/2024 9:34:09 AM Referred By: Confirmed By: Chavez Schroeder
[2024-08-15 02:18] LABS: Absolute Lymphocyte Count 2.33 X10^3/uL (0.83-4.51); Absolute Neutrophil Count 4.4 X10^3/uL (2.0-7.7); Basophil# 0.08 X10^3/uL; Eosinophil# 0.26 X10^3/uL; Eosinophils% 3.3 % (0-5); Hematocrit 46.5 % (37-47); Hemoglobin 14.8 g/dL (12.0-15.0); Lymphocyte # 2.33 X10^3/ul (0.83-4.51); Lymphocyte % 29.9 % (19-41); Mean Corp Hgb Conc 31.8 g/dL (32-36); Mean Corpuscular Hgb 26.8 pg (27.0-32.0); Mean Corpuscular Volume 84.1 fL (81-99); Mean Platelet Vol. 11.1 fl (6.2-12.0); Monocyte# 0.67 X10^3/uL; Monocyte% 8.6 % (0-10); NRBC Flagged by Analyzer 0 % (0-5); Neutrophil # 4.42 X10^3/uL (2.7-7.7); Neutrophil % 56.9 % (47-70); Platelet Count 238 K/mm3 (150-450); RBC Distribution Width CV 13.7 % (11.6-14.6); RBC Distribution Width SD 41.9 fl (35.1-43.9); Red Blood Count 5.53 M/mm3 (4.2-5.4); White Blood Count 7.8 K/mm3 (4.4-11.0)
[2024-08-15 02:32] LABS: International Normalized Ratio 0.9; Prothrombin Time (Protime)PT. 12.3 SECONDS (11.7-14.9)
[2024-08-15 02:33] LABS: Partial Thromboplast Time 22.6 Seconds (24.1-36.2)
[2024-08-15 02:41] LABS: Anion Gap 11 (5-15); BUN 9 mg/dL (4-19); BUN/Creat Ratio 12.8 RATIO (10-20); Calcium,Total 9.1 mg/dL (7.6-11.0); Carbon Dioxide 27.8 mmol/L (21.0-32.0); Chloride 100 mmol/L (98-108); EST Glomerular Filtration Rate 94 (>60); Estimated Creatinine Clearance 92.81 ml/min (50-250); Glucose 138 mg/dL (70-99); Potassium 3.6 mmol/L (3.3-5.1); Sodium Level 139 mmol/L (133-145)
--- OUTSIDE RECORDS SUMMARY | 2024-08-15 02:56 | XMS RPT_ITS | CCD ---
Author Organization [facility] Care Team Providers Care Electronic Commerce Specialist Name Role Phone DR OTTONIEL PAGE DO A Primary Care Physician [phone] Dr. Ottoniel Page Primary Care Provider [phone] Dr. Ottoniel Page Referring Provider Dr. Andrew Keane Attending Provider [phone] OTTONIEL PAGE DO A Primary Care Physician [phone] Dr. Ottoniel Page Primary Care Provider [phone] Dr. Andrew Keane Attending Provider [phone] KIMBERLY Hermosillo Referring Provider Dr. Ottoniel Page Primary Care Provider Dr. Ottoniel Page Referring Provider KIMBERLY Rider Attending Provider Dr. Ottoniel Page Primary Care Provider Dr. Wilmer Erazo Attending Provider [phone] Ottoniel Page DO Primary Care Provider NP. Daly Del Rio Attending Provider [phone] NP. Daly Del Rio Referring Provider [phone] Dr. Facundo Kat MD Attending Provider Dr. Facundo Kat MD Referring Provider Dr. Daphne Manuel MD Attending Provider Dr. Bruno Avila DO Referring Provider Dr. Bruno Avila DO Attending Provider Makeda Us Other Provider Dr. Ottoniel Page DO Attending Provider [phone] Dr. Ottoniel Page DO Referring Provider [phone] Janeth Rider Attending Provider Ottoniel Page Attending Unavailable Madison, Ottoniel Referring Unavailable Madison, Ottoniel Primary Care Unavailable Janeth Rider Attending Unavail able Janeth Rider Referring Unavail able Madison, Ottoniel Primary Care Unavailable Madison, Ottoniel Primary Care Unavailable Bruno Avila Attending Unavailable Bruno Avila Referring Unavailable Makeda Hermosillo Consulting Unavailable Facundo Kat Attending Unavailable Jabour, Facundo Referring Unavailable Madison, Ottoniel Primary Care Unavailable Facundo Kat Attending Unavailable Jabour, Facundo Referring Unavailable Madison, Ottoniel Primary Care Unavailable Bruno Avila Attending Unavailable Bruno Avila Referring Unavailable Madison, Ottoniel Primary Care Unavailable Janeth Rider Attending Unavail able Madison, Ottoniel Referring Unavailable Madison, Ottoniel Primary Care Unavailable Janeth Rider Referring Unavail able Andrew Keane Attending Unavailable Madison, Ottoniel Primary Care Unavailable SpiBruno torres Referring Unavailable Daphne Manuel Attending Unavailabl e Madison, Ottoniel Primary Care Unavailable Jabour, Facundo Attending Unavailable Jabour, Antoinetteent Referring Unavailable Steptoe, Daly Consulting Unavailable Madison, Ottoniel Primary Care Unavailable Madison, Ottoniel Primary Care Unavailable Jabour, Antoinetteent Attending Unavailable Jabour, Vincent Referring Unavailable Eliane, Daly Consulting Unavailable Eliane, Daly Attending Unavailable Eliane, Daly Referring Unavailable Mdaison, Ottoniel Primary Care Unavailable Allergies Allergy Classification Reported Allergen(s) Allergy Type Date of Onset Reaction(s) Facility (5 sources) Acetaminophen / HYDROcodone; Translations: [acetaminophen-hy drocodone] Drug Allergy Paranoid disorder (disorder), Vomiting (disorder), Nausea (finding) [facility] (20 sources) predniSONE; Translations: [prednisone] Drug Allergy 2 Paranoid disorder (disorder) [facility] (13 sources) Acetaminophen Drug Allergy 2 GI upset [facility] (17 sources) Cortisone Drug Allergy 2 Unknown [facility] (17 sources) HYDROcodone Drug Allergy 2 GI upset [facility] (17 sources) Propoxyphene Drug Allergy 2 GI upset [facility] (1 source) Acetaminophen Drug Allergy 4 [facility] (1 source) Cortisone Drug Allergy 5 [facility] (1 source) HYDROcodone Drug Allergy 5 [facility] (1 source) predniSONE Drug Allergy 5 [facility] (1 source) Propoxyphene Drug Allergy 5 [facility] Medications Current Medications Medication Drug Class(es) Dates Sig (Normalized) Sig (Original) acetaminophen 325 mg oral capsule (1 source) Start: 06-11-2021 End: 06-25-2021 acetaminophen 325 mg oral capsule Dose : 650 mg = 2 cap(s), Oral, q6hr, PRN as needed for pain, X 7 day(s), # 28 cap(s), 1 Refill(s), 06/25/21 13:17:00 EDT, Pharmacy: [facility], 177.8, cm, 06/11/21 8:38:00 EDT, Height Start Date: 06/11/21 Stop Date: 06/25/21 Status: Ordered acetaminophen 325 mg / oxyCODONE hydrochloride 5 mg oral tablet (20 sources) Opioid Agonist Start: 04-25-2021 acetaminophen-oxyCOD ONE 325 mg-5 mg oral tablet Dose = 1 tab(s), Oral, TID, PRN as needed for pain, TAKE 1 TABLET BY MOUTH 2-3 TIMES DAILY NEEDED FOR PAIN, 0 Refill(s) Start Date: 04/25/21 Status: Ordered Start: 04-25-2021 acetaminophen- oxyCODONE 325 mg-5 mg oral tablet TAKE 1 TABLET BY MOUTH 2-3 TIMES DAILY NEEDED FOR PAIN Start Date: 04/25/21 Status: Ordered Start: 04-27-2020 End: 05-04-2020 Oxycodone-Acetaminophen 1 TA BLET tablet Discontinued 1 - 2 {tbl} PO EVERY 6 HOURS NEEDED as needed for Pain 56 7 April 27, 2020 May 03, 2020 1:00am May 04, 2020 1:03am PRN pain Start: 04-27-2020 End: 05-04-2020 take 1 tablet by mouth every six hours as needed for pain Oxycodone-Acetaminophen Discontinued 1 - 2 TABLET PO EVERY 6 HOURS NEEDED 56 7 April 27, 2020 May 04, 2020 1:03am PRN pain Start: 05-15-2018 End: 05-20-2018 Oxycodone-Acetaminophen 1 TA BLET tablet Discontinued 1 {tbl} PO EVERY 6 HOURS NEEDED as needed for Pain 20 May 15, 2018 1:00am May 19, 2018 12:00am May 20, 2018 12:08am Start: 05-15-2018 End: 05-20-2018 take 1 tablet by mouth every six hours as needed Oxycodone-Acetaminophen Discontinued 1 TABLET PO EVERY 6 HOURS NEEDED 20 May 15, 2018 1:00am May 20, 2018 12:08am Start: 07-02-2017 Oxycodone-Acet aminophen 5-325 mg tablet Active 1 {tbl} PO Q4H as needed for Pain July 02, 2017 12:00am Start: 07-02-2017 take 1 tablet by kane th every four to six hours Oxycodone-Acetaminophen Active 1 TABLET PO .Q4-6H July 02, 2017 12:00am aspirin 81 mg delayed release oral tablet (20 sources) Platelet Aggregation Inhibitor, Nonsteroidal Anti-inflammatory Drug Start: 04-25-2021 aspirin 81 mg ora l delayed release tablet Dose : 81 mg = 1 tab(s), Oral, qHS, 0 Refill(s) Start Date: 04/25/21 Status: Ordered Start: 04-25-2021 aspirin 81 mg oral delayed release tablet Dose : 81 mg = 1 tab(s), Oral, qDay, # 90 tab(s), 0 Refill(s) Start Date: 04/25/21 Status: Ordered Start: 08-24-2020 take 1 tablet by kane th at bedtime Aspirin 81 mg Tablet,Delayed Release (Dr/Ec) Active 81 mg PO AT BEDTIME August 24, 2020 12:00am Start: 10-13-2018 End: 04-27-2020 take 1 tablet by mouth once daily Aspirin 81 mg tablet,delayed release (DR/EC) Discontinued 81 mg PO DAILY October 13, 2018 12:00am April 27, 2020 12:07pm Start: 07-02-2017 End: 04-10-2018 Aspirin (Adult Low Dose Aspi rin) 81 mg tablet,delayed release (DR/EC) Discontinued 81 mg PO daily July 02, 2017 12:00am April 10, 2018 8:04am betamethasone 0.0005 mg/mg topical ointment (1 source) Corticosteroid Start: 08-10-2024 Betamethasone Dipropionate 0.05 % ointment Active TOPICAL daily as needed August 10, 2024 12:00am brimonidine tartrate 2 mg/ml / brinzolamide 10 mg/ml ophthalmic suspension (4 sources) Carbonic Anhydrase Inhibitor, alpha-Adrenergic Agonist Start: 05-28-2021 brimonidine-brinzola m gopal 0.2%-1% ophthalmic suspension Dose = 1 drop(s), Eye, left, BID, # 8 mL, 0 Refill(s) Start Date: 05/28/21 Status: Ordered Start: 05-28-2021 brimonidine-br inzolamide 0.2%-1% ophthalmic suspension Dose = 1 drop(s), Eye, left, BID, # 8 mL, 0 Refill(s) Start Date: 05/28/21 Status: Ordered 12 hr buPROPion hydrochloride 150 mg extended release oral tablet (5 sources) Aminoketone Start: 08-11-2023 End: 08-10-2024 take 1 tablet by mouth once daily Bupropion Hcl 150 mg tablet extended release 24 hr Active 150 mg PO daily August 10, 2024 12:00am cephalexin 250 mg oral tablet (20 sources) Cephalosporin Antibacterial Start: 09-23-2019 End: 05-05-2021 take 1 tablet by mouth once daily Cephalexin 250 mg tablet Active 250 mg PO DAILY September 23, 2019 12:00am clobetasol propionate 0.5 mg/ml topical cream (1 source) Corticosteroid Start: 08-10-2024 Clobetasol 0.05 % cream Active TOPICAL TWICE A DAY as needed August 10, 2024 12:00am clotrimazole 10 mg/ml topical cream (1 source) Azole Antifungal Start: 08-10-2024 Clotrimazole 1 % cream Active NMA TOPICAL TWICE A DAY August 10, 2024 12:00am cyclobenzaprine hydrochloride 10 mg oral tablet (20 sources) Muscle Relaxant Start: 09-23-2019 Cyclobenzaprine 10 mg tablet Active 10 mg PO NEEDED as needed for MUSCLE RELAXANT September 23, 2019 12:00am docusate sodium 100 mg oral capsule (5 sources) Start: 06-11-2021 Colace 100 mg oral capsule Dose : 100 mg = 1 cap(s), Oral, BID, PRN for constipation, # 60 cap(s), 1 Refill(s), Pharmacy: [facility], 177.8, cm, 06/11/21 8:38:00 EDT, Height Start Date: 06/11/21 Status: Ordered Start: 04-25-2021 Dulcolax Stool Softener 100 mg oral capsule Dose : 100 mg = 1 cap(s), Oral, BID, PRN as needed for constipation, # 20 cap(s), 0 Refill(s) Start Date: 04/25/21 Status: Ordered ferrous sulfate 325 mg delayed release oral tablet (18 sources) Start: 08-10-2024 take 1 tablet by mouth once daily Ferrous Sulfate 325 mg (65 mg iron) tablet,delayed release (DR/EC) Active 325 mg PO daily August 10, 2024 12:00am Start: 10-13-2018 End: 09-23-2019 take 1 tablet by mouth twice daily Ferrous Sulfate 325 mg (65 mg iron) tablet,delayed release (DR/EC) Discontinued 325 mg PO TWICE A DAY October 13, 2018 12:00am September 23, 2019 3:47pm gabapentin 400 mg oral capsule (20 sources) Anti-epileptic Agent Start: 05-12-2024 take 1 capsule by mouth three times daily Gabapentin 400 mg capsule Active 400 mg PO THREE TIMES A DAY May 12, 2024 1:00am Start: 10-13-2018 End: 05-12-2024 take 1 capsule by mouth three times daily Gabapentin 300 mg capsule Discontinued 300 mg PO THREE TIMES A DAY October 13, 2018 12:00am May 12, 2024 12:02pm Start: 07-02-2017 End: 07-08-2017 take 1 capsule by mouth four times daily Gabapentin 300 mg capsule Discontinued 300 mg PO .QID July 02, 2017 12:00am July 08, 2017 11:13am hydroCHLOROthiazide 25 mg oral tablet (20 sources) Thiazide Diuretic Start: 04-13-2020 take 1 tablet by mouth once daily Hydrochlorothiazide 25 MG tablet Active 25 mg PO DAILY April 13, 2020 1:00am hyoscyamine sulfate 0.125 mg disintegrating oral tablet (1 source) Start: 08-10-2024 take 1 tablet by mouth every six hours as needed for nausea Hyoscyamine Sulfate 0.125 mg tablet,disintegrating Active 0.125 mg PO EVERY 6 HOURS as needed for nausea/vomiting August 10, 2024 12:00am latanoprost 0.05 mg/ml ophthalmic solution (20 sources) Prostaglandin Analog Start: 04-25-2021 take 1 dose into the eye(s) once daily at bedtime latanoprost 0.005% ophthalmic solution Dose = 1 drop(s), Eyes, both, qHS, 0 Refill(s) Start Date: 04/25/21 Status: Ordered Start: 04-25-2021 take 1 dose into the eye(s) once daily at bedtime latanoprost 0.005% ophthalmic solution Dose = 1 drop(s), Eyes, both, qHS, 0 Refill(s) Start Date: 04/25/21 Status: Ordered Start: 04-25-2021 take 1 dose into the eye(s) once daily at bedtime latanoprost 0.005% ophthalmic solution Dose = 1 drop(s), Eyes, both, qHS, # 2.5 mL, 0 Refill(s) Start Date: 04/25/21 Status: Ordered Start: 04-13-2020 Latanoprost 1 DROP bottle Active 1 NMA EACH EYE AT BEDTIME April 13, 2020 1:00am Start: 04-13-2020 Latanoprost Ac tive 1 DRP EACH EYE AT BEDTIME April 13, 2020 1:00am LORazepam 1 mg oral tablet (20 sources) Benzodiazepine Start: 04-25-2021 LORazepam 1 mg oral tablet Dose : 1 mg = 1 tab(s), Oral, BID, PRN as needed for anxiety, take 1/2 to 1 tablet, 0 Refill(s) Start Date: 04/25/21 Status: Ordered Start: 08-24-2020 End: 05-12-2024 take 0.5 mg by mouth once daily as needed for anxiety Lorazepam 1 mg Tablet Discontinued 0.5 mg PO DAILY as needed for Anxiety August 24, 2020 12:00am May 12, 2024 12:03pm Start: 08-24-2020 take 0.5 mg by mouth once lorenzo y Lorazepam Active 0.5 MG PO DAILY August 24, 2020 12:00am oxyCODONE hydrochloride 5 mg oral tablet (20 sources) Opioid Agonist Start: 06-27-2021 take 1 tablet by mouth every four hours for pain oxyCODONE 5 mg oral tablet ( IMMEDIATE release ) take 1 tablet by mouth every 4 hours if needed for pain Start Date: 06/27/21 Status: Ordered Start: 06-11-2021 End: 06-18-2021 oxyCODONE 5 mg oral tablet ( IMMEDIATE release ) Dose : 5 mg = 1 tab(s), Oral, q4h, PRN for pain, X 7 day(s), # 42 tab(s), 0 Refill(s), 06/18/21 13:15:00 EDT, Pharmacy: [facility], Post-op pain, 177.8, cm, 06/11/21 8:38:00 EDT, Height, 117.1 Start Date: 06/11/21 Stop Date: 06/18/21 Status: Ordered Start: 04-10-2018 End: 04-14-2018 take 1 tablet by mouth every four hours as needed for pain Oxycodone 5 MG tablet Discontinued 5 mg PO EVERY 4 HOURS NEEDED as needed for Moderate Pain (pain scale 4-5) 24 4 April 10, 2018 1:00am April 13, 2018 1:00am April 14, 2018 1:08am pantoprazole 40 mg delayed release oral tablet (20 sources) Proton Pump Inhibitor Start: 10-13-2018 take 1 tablet by mouth once daily Pantoprazole (Protonix) 40 mg tablet,delayed release (DR/EC) Active 40 mg PO DAILY October 13, 2018 12:00am primidone 50 mg oral tablet (1 source) Anti-epileptic Agent Start: 08-10-2024 take 1 tablet by mouth twice daily Primidone 50 mg tablet Active 100 mg PO TWICE A DAY August 10, 2024 12:00am promethazine hydrochloride 25 mg oral tablet (20 sources) Phenothiazine Start: 04-25-2021 promethazine 12.5 mg oral tablet Dose : 12.5 mg = 1 tab(s), Oral, q4h, PRN for nausea/vomiting, # 60 tab(s), 0 Refill(s) Start Date: 04/25/21 Status: Ordered Start: 08-24-2020 take 1 tablet by kane th every six hours as needed for nausea Promethazine 25 mg Tablet Active 25 mg PO EVERY 6 HOURS as needed for Nausea August 24, 2020 12:00am rOPINIRole 0.5 mg oral tablet (20 sources) Nonergot Dopamine Agonist Start: 08-10-2024 Ropinirole 0.5 mg tablet Active 0.5 mg PO .COMPLEX August 10, 2024 8:34am 0.5 mg orally; 1 qam, 2 @ 12, 2 qpm Start: 04-25-2021 rOPINIRole 0.5 mg oral tablet Dose : 1 mg = 2 tab(s), Oral, qHS, 0 Refill(s) Start Date: 05/28/21 Status: Ordered Start: 04-13-2020 End: 08-10-2024 take 1 tablet by mouth at bedtime Ropinirole 1 MG tablet Discontinued 1 mg PO AT BEDTIME April 13, 2020 1:00am August 10, 2024 8:36am Start: 04-13-2020 take 2 mg by mouth at bedtime Ropinirole Active 2 MG PO AT BEDTIME April 13, 2020 1:00am Start: 10-13-2018 End: 08-10-2024 take 1 tablet by mouth twice daily Ropinirole 0.5 mg tablet Discontinued 0.5 mg PO TWICE A DAY October 13, 2018 12:00am August 10, 2024 8:39am Start: 10-13-2018 Ropinirole Act francis 1 MG PO .0600, 1400 October 13, 2018 12:00am Start: 07-02-2017 End: 07-08-2017 take 1 tablet by mouth at bedtime Ropinirole 0.5 mg tablet Discontinued 0.5 mg PO AT BEDTIME July 02, 2017 12:00am July 08, 2017 11:15am Timolol Maleate (1 source) beta-Adrenergic Migue Start: 08-10-2024 Timolo l Maleate 0.5 % drops Active NMA OPHTHALMIC August 10, 2024 12:00am 1 ml ustekinumab 90 mg/ml prefilled syringe (20 sources) Interleukin-12 Antagonist, Interleukin-23 Antagonist Start: 08-24-2020 Ustekinumab (Stelara) 90 mg/mL Syringe Active 90 mg SC .Q2MO August 24, 2020 12:00am Start: 09-23-2019 End: 04-27-2020 Ustekinumab 90 mg/mL syringe Discontinued 90 mg SC Q2M September 23, 2019 3:46pm April 27, 2020 12:08pm Start: 04-09-2018 End: 09-23-2019 Ustekinumab 90 MG/ML syringe Discontinued 90 mg SQ Q60D April 09, 2018 1:00am September 23, 2019 3:47pm Start: 04-09-2018 End: 04-27-2020 Ustekinumab Discontinued 90 MG SC Q2M September 23, 2019 3:46pm April 27, 2020 12:08pm Completed/Discontinued Medications Medication Drug Class(es) Dates Sig (Normalized) Sig (Original) apixaban 5 mg oral tablet (20 sources) Factor Xa Inhibitor Start: 10-13-2018 End: 10-13-2018 take 1 tablet by mouth twice daily Apixaban (Eliquis) 5 mg tablet Discontinued 5 mg PO TWICE A DAY October 13, 2018 12:00am October 13, 2018 8:30am Start: 04-09-2018 End: 05-09-2018 take 2 tablets by mouth twice daily, then take 1 tablet by mouth twice daily Apixaban (Eliquis) 5 MG Tab.Ds.Pk Discontinued 5 mg PO DIRECTED 74 April 09, 2018 1:00am May 08, 2018 1:00am May 09, 2018 1:10am Take 10 mg BID x 7 days and then transition to 5 mg BID. azaTHIOprine 50 mg oral tablet (17 sources) Purine Antimetabolite Start: 07-08-2017 End: 10-13-2018 take 1 tablet by mouth once daily Azathioprine 50 mg tablet Discontinued 150 mg PO daily July 08, 2017 12:00am October 13, 2018 8:29am Start: 07-08-2017 End: 10-13-2018 take 150 mg by mouth once daily Azathioprine Discontinued 150 MG PO daily July 08, 2017 12:00am October 13, 2018 8:29am ciprofloxacin 500 mg oral tablet (17 sources) Quinolone Antimicrobial Start: 09-01-2020 End: 10-31-2020 take 1 tablet by mouth twice daily Ciprofloxacin Hcl (Cipro) 500 mg tablet Discontinued 500 mg PO TWICE A DAY September 01, 2020 12:00am October 31, 2020 1:04pm Cranberry Fruit (17 sources) Start: 01-25-2018 End: 09-23-2019 take 1 capsule by mouth twice daily Cranberry Fruit Discontinued 1 CAP PO TWICE A DAY January 25, 2018 3:33pm September 23, 2019 3:45pm Start: 01-25-2018 End: 09-23-2019 Cranberry Fruit Discontinued 1 NMA PO TWICE A DAY January 25, 2018 1:00am September 23, 2019 3:45pm Start: 01-25-2018 End: 09-23-2019 take 1 capsule by mouth twice daily Cranberry Fruit Discontinued 1 CAP PO TWICE A DAY January 25, 2018 12:00am September 23, 2019 2:45pm Start: 01-25-2018 End: 09-23-2019 take 1 capsule by mouth twice daily Cranberry Fruit Discontinued 1 CAP PO TWICE A DAY January 25, 2018 1:00am September 23, 2019 3:45pm famotidine 20 mg oral tablet (17 sources) Histamine-2 Receptor Antagonist Start: 04-10-2018 End: 10-13-2018 take 1 tablet by mouth twice daily Famotidine 20 MG tablet Discontinued 20 mg PO TWICE A DAY April 10, 2018 1:00am October 13, 2018 8:28am FLUoxetine 40 mg oral capsule (20 sources) Serotonin Reuptake Inhibitor Start: 09-23-2019 End: 08-08-2022 take 1 capsule by mouth once daily Fluoxetine 40 mg capsule Discontinued 40 mg PO DAILY September 23, 2019 12:00am August 08, 2022 8:44am Start: 04-09-2018 End: 09-23-2019 take 2 capsules by mouth once daily Fluoxetine 20 MG capsule Discontinued 40 mg PO DAILY April 09, 2018 1:00am September 23, 2019 3:45pm Start: 04-09-2018 End: 09-23-2019 take 40 mg by mouth once daily Fluoxetine Discontinued 40 MG PO DAILY April 09, 2018 1:00am September 23, 2019 3:45pm ibuprofen 200 mg oral tablet (17 sources) Nonsteroidal Anti-inflammatory Drug Start: 07-02-2017 End: 07-08-2017 Ibuprofen 200 mg tablet Discontinued 200 mg PO .As Needed July 02, 2017 12:00am July 08, 2017 11:15am meloxicam 15 mg oral tablet (20 sources) Nonsteroidal Anti-inflammatory Drug Start: 10-31-2020 End: 05-12-2024 Meloxicam 15 mg tablet Discontinued 15 mg PO NEEDED as needed for Pain October 31, 2020 12:00am May 12, 2024 12:03pm Start: 04-13-2020 End: 04-27-2020 take 1-10 tablets by mouth once daily as needed for pain Meloxicam 15 MG tablet Discontinued 15 mg PO DAILY as needed for Pain 1-10 Or Fever April 13, 2020 1:00am April 27, 2020 12:07pm ondansetron 8 mg oral tablet (17 sources) Serotonin-3 Receptor Antagonist Start: 04-10-2018 End: 10-13-2018 take 1 tablet by mouth every eight hours as needed for nausea Ondansetron Hcl 8 MG tablet Discontinued 8 mg PO EVERY 8 HOURS NEEDED as needed for nausea, emesis April 10, 2018 1:00am October 13, 2018 8:30am sotalol hydrochloride 80 mg oral tablet (20 sources) Antiarrhythmic Start: 07-02-2017 End: 08-25-2023 take 1 tablet by mouth twice daily Sotalol 80 mg tablet Discontinued 80 mg PO TWICE A DAY August 28, 2022 8:40am August 25, 2023 8:02am Stelara PFS 90 mg/mL subcutaneous solution (1 source) Start: 06-07-2021 inject 1 mL by subcutaneous injection every two months Stelara PFS 90 mg/mL subcutaneous solution Dose : 90 mg = 1 mL, Subcutaneous, EVERY 2 MONTHS, # 1 mL, 0 Refill(s) Start Date: 06/07/21 Status: Ordered vitamin b12 1 mg oral capsule (17 sources) Vitamin B12 Start: 01-25-2018 End: 10-13-2018 Cyanocobalamin (Vitamin B-12) 1,000 MCG capsule Discontinued 1500 ug PO AT BEDTIME January 25, 2018 1:00am October 13, 2018 8:32am Start: 01-25-2018 End: 10-13-2018 take 1500 ug by mouth at bedtime Cyanocobalamin (Vitamin B-12) Discontinued 1500 MCG PO AT BEDTIME January 25, 2018 1:00am October 13, 2018 8:32am Problems Active Problems Problem Classification Problem Date Documented Da te Episodic/Chronic Anxiety disorders (5 sources) Anxiety 04-24-2021 Chronic Cardiac dysrhythmias (20 sources) Atrial fibrillation; Translations: [Wide QRS ventricular tachycardia] Onset: 04-27-2020 04-24-2021 Chronic Cardiac dysrhythmias (20 sources) Palpitations; Translations: [Palpitations] Onset: 04-27-2020 09-23-2019 Episodic Disorders of lipid metabolism (17 sources) Hyperlipidemia; Translations: [Hyperlipidemia, unspecified] 04-09-2018 Chronic Essential hypertension (20 sources) Essential hypertension; Translations: [Essential (primary) hypertension] Chronic Genitourinary symptoms and ill-defined conditions (17 sources) Urge incontinence of urine; Translations: [Urge incontinence] 09-01-2020 Chronic Menopausal disorders (1 source) Postmenopausal bleeding; Translations: [Postmenopausal bleeding] Onset: 05-28-2021 Chronic Mood disorders (5 sources) Depression 04-24-2021 Chronic Osteoarthritis (1 source) Unilateral primary osteoarthritis of first carpometacarpal joint, right hand; Translations: [Unilateral primary osteoarthritis of first carpometacarpal joint, right hand] Onset: 05-31-2024 Chronic Other gastrointestinal disorders (1 source) Intra-abdominal and pelvic swelling, mass and lump; Translations: [Other intra-abdominal and pelvic swelling, mass and lump] Onset: 05-28-2021 Episodic Other screening for suspected conditions (not mental disorders or infectious disease) (1 source) Encounter for screening mammogram for malignant neoplasm of breast; Translations: [Encounter for screening mammogram for malignant neoplasm of breast] Onset: 08-09-2024 Episodic Pulmonary heart disease (20 sources) Pulmonary embolism; Translations: [Acute pulmonary embolism] Onset: 04-09-2018 04-24-2021 Episodic Regional enteritis and ulcerative colitis (5 sources) Crohn's disease 02-15-2022 Chronic Residual codes; unclassified (5 sources) Chronic back pain 04-24-2021 Episodic Past or Other Problems Problem Classification Problem Date Documented Da te Episodic/Chronic Other non-traumatic joint disorders (1 source) Pain in right hip; Translations: [Pain in right hip] Onset: 05-06-2024 Episodic Viral infection (17 sources) COVID-19; Translations: [Severe acute respiratory syndrome coronavirus 2 (SARS-CoV-2) detected] Onset: 01-24-2020 05-02-2020 Episodic Results Test Name Value Interpretation Reference Range Facility Cardiology Visit Reporton Cardiology Visit Report [facility] [address] [place] [address] OFFICE VISIT Date of Service: 08/10/24 MR#: [id number] Acct: [id number] Name: ABI REYNA Rep #: [id number] : 1955 Provider: KIMBERLY Casey Age/Sex: 69/F Location: [email or web address] Status: Signed HPI HPI History of Present Illness Details: ABI REYNA, is a 69 F who presents to the office today for a follow-up visit. She has a history of paroxysmal atrial fibrillation, hypertension, and hyperlipidemia. 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 You remember that her ejection fraction is preserved. From a cardiac standpoint, patient is doing well. She does not have any chest discomfort/heaviness/ tightness. Her exercise tolerance is stable for her age. She does not have any worsening symptoms of shortness of breath. She does not have any orthopnea. She denies PND. She does not have any symptoms of congestive heart failure. She does not have any palpitations that she is aware of. She does not have any lightheadedness or dizziness. She does not have any near- syncope or syncope. She does not have any lower extremity edema. She does not have any symptoms of claudication. She has been haivn g back issues and has been doing PT for this. Intake Vital Signs 08/11/23 08:29 05/27/24 10:40 08/10/24 08:31 Height 5 ft 10 in 5 ft 10 in 5 ft 10 in Weight: 253 lb BMI 36.3 BP 117/73 Blood Pressure Location Lt brachial Position Sitting Respiration 16 Pulse 74 Pulse Source NIBP Intake Visit Reasons: 1 Y FU Piping Drafter Required: No Is patient in pain?: No Allergies prednisone Allergy (Verified 08/10/24 08:32) Itching hydrocodone (From Vicodin) Adverse Reaction (Severe, Verified 08/10/24 08:32) GI upset propoxyphene (From Darvocet-N) Adverse Reaction (Severe, Verified 08/10/24 08:32) GI upset cortisone Adverse Reaction (Intermediate, Verified 08/10/24 08:32) Unknown Medications ???Medication ???Instructions ???Recorded ???Confirmed ???Type oxycodone-acetaminoph en 5 mg-325 1 tab PO Q4H PRN Pain 07/02/1706/01 History mg tablet pantoprazole 40 mg tablet,delayed 40 mg PO DAILY 10/13/18 08/10/24 History release (Protonix) cephalexin 250 mg tablet 250 mg PO DAILY 09/23/19 08/10/24 History cyclobenzaprine 10 mg tablet 10 mg PO PRN PRN MUSCLE RELAXANT 0 09/23/19 08/10/24 History hydrochlorothiazide 25 mg tablet 25 mg PO DAILY 04/13/20 08/10/24 H istory latanoprost 0.005 % eye drops 1 drp EACH EYE QHS 04/13/20 History aspirin 81 mg tablet,delayed 81 mg PO QHS 08/24/20 08/10/24 His tory release promethazine 25 mg tablet 25 mg PO Q6H PRN Nausea 08/24/20 0 08/10/24 History ustekinumab 90 mg/mL subcutaneous 90 mg subcut .Q2MO 08/24/2008/10 History syringe (Stelara) sotalol 80 mg tablet 80 mg PO BID #180 TABLETS 08/25/23 08/10/24 Rx gabapentin 400 mg capsule 400 mg PO TID 05/12/24 08/10/24 Hi story betamethasone dipropionate 0.05 % topical QDAY PRN 08/10/24 5 History topical ointment bupropion HCl 150 mg 24 hr tablet, 150 mg PO QDAY 08/10/24 08/10/24 History extended release clobetasol 0.05 % topical cream topical BID PRN 08/10/24 08/10/24 History clotrimazole 1 % topical cream applic topical BID 08/10/24 History ferrous sulfate 325 mg (65 mg 325 mg PO QDAY 08/10/24 08/10/24 H istory iron) tablet,delayed release hyoscyamine sulfate 0.125 mg 0.125 mg PO Q6 PRN nausea/vomiting 08/10/24 08/10/24 History disintegrating tablet primidone 50 mg tablet 100 mg PO BID 08/10/24 08/10/24 Hi story ropinirole 0.5 mg tablet 0.5 mg PO .COMPLEX 08/10/24 History timolol maleate 0.5 % eye drops drp ophthalmic (eye) 08/10/2406/01 History Ejection fraction %: 65 Have you fallen in the past year?: Yes PFSH Medical History History of steroid therapy History of Holter monitoring Cardiology follow-up encounter Wears glasses Wears dentures Arthritis Bladder disease Pulmonary embolism High cholesterol Restless legs Back pain History of IBS History of Crohn's disease Gastric reflux Former smoker Leg cramps History of pain when walking Hypertension History of stress test Hx of echocardiogram History of atrial fibrillation History of trigger finger Wide-complex tachycardia (04/27/20) COVID-19 virus detected (01/24/20) Obesity Lumbar stenosis without neurogenic claudication Essential (primary) hypertension History of pulmonary embolus (PE) (04/09/18) Thyroid goiter History of meningioma of the brain Crohn disease Anxiety and depression Shortness of breath Palpitations Hyperlipidemia Paroxysmal a (more content not included)... Normal [facility] Breast imaging reportOrdered By: Basilia Estrada on 08-04-2024 Study report [facility] Imaging Services [address] [place] [address] SCRN MAMM (CAD)W/PATEL STEVEAT MR#: [id number] Acct: [id number] Name: DANIELABITESS GREGORY Rep #: [id number] : 1955 F 69 From: Miroslava Estrada MD PCP: Dr. Ottoniel Page DO Status: REG CLI Study:SCRN MAMM (CAD)W/PATEL BILAT Date of Exa m: 08/04/24 Exam# [id number] Ordering Dr: Ottoniel Page DO EXAM: SCRN MAMM (CAD)W/PATEL BILAT 08/04/2024 CLINICAL HISTORY: F, Age 69 y/o , SCREENING TECHNIQUE: Bilateral screening digital breast tomosynthesis with 2D and 3D images. Computeraided detection. COMPARISON: Prior exam(s) dated 01/24/2021, 11/29/2019, 10/07/2018. FINDINGS: TISSUE DENSITY: The breast tissue is composed of scattered area of fibroglandular density. Bilateral Breast Mammographic Findings: No significant masses, calcifications or other abnormalities are identified. BI/SCRN MAMM (CAD)W/PATEL BILAT IMPRESSION: Right Breast: BIRADS 1 NEGATIVE. Left Breast: BIRADS 1 NEGATIVE. OVERALL FINAL ASSESSMENT: BIRADS 1 NEGATIVE. RECOMMENDATION: Routine annual follow-up in 1 Year A letter with findings and recommendations will be mailed to the patient. Reading Location: [facility] CC: Dr. Ottoniel Page DO ~ Electrical Equipment Technician: Signed [facility] SCRN MAMM (CAD)W/PATEL BILATo n 08-04-2024 SCRN MAMM (CAD)W/PATEL BILAT [facility] Imaging Services [address] [place], [place] [id number] SCRN MAMM (CAD)W/PATEL BILAT MR#: [id number] Acct: [id number] Name: ABI REYNA Rep #: [id number] : 1955 F 69 From: Basilia Estrada MD PCP: Dr. Ottoniel Page DO Status: REG CLI Study: SCRN MAMM (CAD)W/PATEL BILAT Date of Exam: 07/09 11/01 Exam# [id number] Ordering Dr: Ottoniel Page DO EXAM: SCRN MAMM (CAD)W/PATEL BILAT 08/04/2024 CLINICAL HISTORY: F, Age 69 y/o , SCREENING TECHNIQUE: Bilateral screening digital breast tomosynthesis with 2D and 3D images. Computer aided detection. COMPARISON: Prior exam(s) dated 01/24/2021, 11/29/2019, 10/07/2018. FINDINGS: TISSUE DENSITY: The breast tissue is composed of scattered area of fibroglandular density. Bilateral Breast Mammographic Findings: No significant masses, calcifications or other abnormalities are identified. BI/SCRN MAMM (CAD)W/PATEL BILAT IMPRESSION: Right Breast: BIRADS 1 NEGATIVE. Left Breast: BIRADS 1 NEGATIVE. OVERALL FINAL ASSESSMENT: BIRADS 1 NEGATIVE. RECOMMENDATION: Routine annual follow-up in 1 Year A letter with findings and recommendations will be mailed to the patient. Reading Location: [facility] CC: Dr. Ottoniel Page DO Electrical Equipment Technician: Signed Normal [facility] Re-Evalution OT 07-20-2024 Re-Evalution OT [facility] Occupational Therapy [facility] [address] [place] [address]. [address] [place] [address] / REEVALUATION / MEDICARE RECERTIFICATION OCCUPATIONAL THERAPY MR#: [id number] Acct: [id number] Name: ABI REYNA Rep #: [id number] : 1955 69 From: Janeth CRUZ/Lashaun, T Referring Dr.: Dr. Bruno Avila DO Status: REG R Insurance: [employer] Date: SELF PAY INSURANCE Re-Evaluation Intro: Dr. Bruno Avila DO, It has been my pleasure to treat ABI REYNA over the last 4 visits for right primary OA cmcJ. Please see the progress note below for an update on the occupational therapy plan of care! Subjective Subjective: pt arrives 7 weeks and 5 days s/p from cmc arthroplasty. pt states she is doing well- pt states she is using her right hand with bathing and dressing, light cleaning and light cooking. pt states she does go to the grocery store and will push her cart ok. carries bags in the home. pt states she is driving now. Objective Objective/Function: right wrist 55/30 right IP 40* right MP 40* right financial recruiter strength 32# left is 55# right lateral pinch 6# pt is making good gains with her ROM and strength. she returns to next week and will see if he would like her to cont. with therapy vs HEP. Plan Plan Visits in this POC: 12 Plan: light strengthening will return to next week to see if he agrees with cont. of therapy vs HEP. Pt demo understanding of his HEP. Goals Goals Patient Goals: Regain Mobility, Improve Fine Motor Skills, Use Hand/Wrist/Arm Normally Again and Be More Independent in ADLS Goal:Daily scar massage when approriate: Yes Goal:ROM equal to unaffected hand: Yes Goal:Degreaser/Pinch strength at least 75% of unaffected hand: Yes Goal:No pain with affected hand use: Yes Goal:Full use of affected hand in daily activities including work: Yes Other Goal: Orthosis use: pt will demo understanding of using orthosis and skin care precautions by end of 1st session. Anticipated Interventions Anticipated Interventions Anticipated Interventions: A/AAROM/PROM, Strengthening, Scar Care, Modalities, Orthoses, Joint Protection/Energy Conservation, Ergonomic Education, Fine Motor Coord/Gio, Education re assistive Equipment and Education re Diagnosis Re-Evaluation Ending Re-evaluation ending: Please do not hesitate to contact me at [phone] by phone or if you have questions or concerns regarding this new plan of care! Sincerely, Janeth Nash, OTR/L, CHT 07/20/24 1201 CC: Dr. Ottoniel Page, DO; Dr. Bruno Avila, DO MK Signed For Medicare only, by signing this I certify the plan of care. Physicians Signature Date Normal [facility] OT General Evaluationon - OT General Evaluation [facility] Occupational Therapy [address] [place] [address] / REHABILITATION SERVICES INITIAL EVALUATION MR#: [id number] Acct: [id number] Name: ABI REYNA Rep #: [id number] : 1955 69 From: Janeth SOTO, BK Referring Dr.: Dr. Bruno Avila DO Status: REG RCR Insurance: [employer] Date: SELF PAY INSURANCE Patient's Visit Information Visit Information Visit Information: ABI REYNA is a 69 year old F, referred to Occupational Therapy by Dr. Bruno Avila DO, with a diagnosis of right primary OA cmcJ. Date of Evaluation: 06/28/24 Occupational Therapist: ANTHONY Durant/Lashaun, STEPHANIET Subjective Subjective: This 69 year old female was seen for OT eval with dx of right unilateral primary osteoarthritis of first carpometacarpal joint. pt states she had difficulty with right thumb pain for years and went through a number of injections. pt states when last injection- pt is right handed pt arrives with cast on and ready to remove the cast and get into the orthosis. pt denies pain at this time- pt states her does help her with daily tasks ( cooking, laundry etc) Pain right thumb/hand: Current Pain Intensity: 0 Pain Intensity Range: 0 and 1 ROM Wrist: right 40/ 20 left 65/60 CMC: right 10 left 20 MP: right 20 left 60 IP: right 20 left 60 Strength Degreaser: right NT left 65# Lateral Pinch: right NT left 12# Tripod Pinch: right NT left 16# Sensation Sensation Comments: denies Goals Goal:Daily scar massage when approriate: Yes Goal:ROM equal to unaffected hand: Yes Goal:Degreaser/Pinch strength at least 75% of unaffected hand: Yes Comment: will not initiate until week 6 for financial recruiter/pinch at week 8 or later Goal:No pain with affected hand use: Yes Goal:Full use of affected hand in daily activities including work: Yes Other Goal: Orthosis use: pt will demo understanding of using orthosis and skin care precautions by end of 1st session. Rehabilitation General Assessment: pt arrives s/p 4 weeks and 4 days s/p right cmc arthroplasty. Pt currently limited with ROM and strength due to newly healing structures. This increases need of assistance by her to assist with IADLs and some ADLs. pt demo need for skilled OT services 1-2x week for 6-8 weeks to return pt to her PLOF. Today therapist abe. custom orthosis to provide support and protection while healing. therapist ed. in skin care and precautions- also ed. pt on short arch wrist ROM and supporting CMC to allow for light IP and MP motion- pt to initiate scar mobilization - pt was given handout and demo understanding and agree to POC. Rehabilitation Potential: Good Anticipated Interventions Anticipated Interventions: A/AAROM/PROM, Strengthening, Scar Care, Modalities, Orthoses, Joint Protection/Energy Conservation, Ergonomic Education, Fine Motor Coord/Gio, Education re assistive Equipment and Education re Diagnosis Visit Plan Frequency: 1-2x /Week Duration: 6-8 weeks General Plan: CMC arthroplasty Week 4: exercise- AROM performed for digits and thumb IP joint only Begin short arc wrist motion - initiate scar mtg Week 4: thumb spica -Begin PROM to wrist if tight- AROM for thumb CMC- joint- cont. scar mtg/edema control (modalities as indicated for pain and edema. Week 6: comfort cool splint orthoplast splint at night and heavy activity. Exercise: start gentle strengthening(thera-p utty), progress as tolerated Progress to wrist strengthening and heavier prehension tasks at 8 weeks post-operative *Avoid forceful extension of thumb * Week 8 D/C orthoplast splint by week 8 except for heavy activity PRN -progress to wrist strengthening and heavier prehension tasks *Avoid forceful extension of the thumb* Expectations: Most patients are treated with a Home Program and checked after each MD visit for program progression 2x weekly for 4-6 weeks for symptomatic patients or those returning to heavier work demands. 2 months to resume normal activities, 3 months for strenuous 3-6 months to reach optimum results slight decrease in pinch and financial recruiter strength generally, gain 70% of strength and motion of unoperated hand. TEXT: Thank you for the opportunity to evaluate your patient. For Medicare and Medicare HMO plans, please review the plan of care and approve it. It will need to be FAXED BACK to us at [phone] for Medicare purposes. Please let me know if there are questions or concerns regarding this plan of care. Physician Signature: Date : 06/28/24 1746 CC: Dr. Ottoniel Page DO; Dr. Bruno Avila DO MK Signed For Medicare only, by signing this I certify the plan of care. _ (more content not included)... Normal [facility] Hand 2 Viewson 05-27-2024 Hand 2 Views [facility] Imaging Services [address] [place] [address] Hand 2 Views MR#: [id number] Acct: [id number] Name: ABI REYNA Rep #: [id number] : 1955 F 68 From: Ottoniel Hooker MD PCP: Dr. Ottoniel Page DO Status: [facility] Study: Hand 2 Views Date of Exam: 05/27/24 Exam# [id number] Ordering Dr: Bruno Avila DO EXAM: XR Left Hand, 2 Views CLINICAL INDICATION: PAIN TECHNIQUE: Frontal and lateral views of the left hand. COMPARISON: No relevant prior studies available. FINDINGS: BONES/JOINTS: Unremarkable. No acute fracture. No dislocation. SOFT TISSUES: Unremarkable. No radiopaque foreign body. OTHER FINDINGS: Multiple fluoroscopic spot images were used intraoperatively for guidance. A total 4 images were obtained. Total fluoroscopy time 9.3 seconds. Total radiation dose 0.24 mGy. RAD/Hand 2 Views IMPRESSION: Fluoroscopic guidance used intraoperatively. Please refer to the operative note for further details. Reading [facility] CC: Dr. Ottoniel Page DO; Dr. Bruno Avila DO Electrical Equipment Technician: Signed Normal [facility] MR/POSTOP.ANEon 05-27-2024 MR/POSTOP.ANE [facility] Medical Records Department [address] [place] [address] Anesthesia Postop Eval I 05/27/24 1346 MR#: [id number] Acct: [id number] Name: ABI REYNAETTE Rep #: [id number] : 1955 68 From: Gatito Jiménez CRNA PCP: Dr. Ottoniel Page, DO Status:REG SDC Y Race: C Location: [place] [address] Anesthesia: Postop Eval I Current Vital Signs Temperature: 98.6 F Pulse Rate: 79 Blood Pressure: 118/61 Respiratory Rate: 22 Pulse Ox: 95 Oxygen Delivery Method: Room Air Assessment Airway patent: Yes Spontaneous unlabored respirations: Yes Mental status: Awake and Calm nausea: No Vomiting: No Anesthesia Complication: No Fluid Hydration Crystalloid volume administer (ml): 800 Total IV fluid infused: 800 Progress Note Anesthesia document: Postop Eval 1 completed: Yes 05/27/24 1347 Date Gatito Jiménez STRUCTURAL STEEL PAINTER Cosigner Signature: Date CC: Signed Normal [facility] MR/[id number] 05-27-2024 /[facility] Medical Records Department [address] [facility] [place] [address] Anesthesia Postop Eval II 05/27/24 1441 MR#: [id number] Acct: [id number] Name: ABI REYNAETTE Rep #: [id number] : 1955 68 From: Zuri Copeland PCP: Dr. Ottoniel Page, DO Status:REG SDC Y Race: C Location: [place] [address] Anesthesia Postop Eval I Sum Postop Eval Completion status Anesthesia document: Postop Eval 1 completed: Yes Anesthesia Postop Eval I Summary Anesthesia Postop Eval I Summary: Anesthesia Postop Eval I: Assessment Summary Airway patent Yes 05/27/24 13:47 STRUCTURAL STEEL PAINTER.BHOS Spontaneous unlabored Yes 05/27/24 13:47 STRUCTURAL STEEL PAINTER[employer]BHOS respirations Mental status Awake,Calm 05/27/24 13:47 STRUCTURAL STEEL PAINTER.BHOS nausea No 05/27/24 13:47 STRUCTURAL STEEL PAINTER[employer]BHOS Vomiting No 05/27/24 13:47 STRUCTURAL STEEL PAINTER[employer]BHOS Anesthesia Postop Eval I: Fluid Summary Crystalloid volume administer 800 05/27/24 13:47 STRUCTURAL STEEL PAINTER.BHOS (ml) Colloids volume administered ( ml) Blood Product volume administered (ml) Total IV fluid infused 800 05/27/24 13:47 STRUCTURAL STEEL PAINTER.BHOS Anesthesia Postop Eval I: Summary Notes Anesthesia Complication No 05/27/24 13:47 STRUCTURAL STEEL PAINTER.BHOS Anesthesia Complication Comment: Post-operative progress note Anesthesia: Postop Eval II Evaluation Mental status: Awake Pain Level: 1 nausea: No Vomiting: No 05/27/24 1441 Date Zuri Madrid Signature: Date CC: Signed Normal [facility] Operative Reporton 5 Operative Report [facility] Medical Records Department [address] [place] [address] Operative Report 05/27/24 1341 MR#: [id number] Acct: [id number] Name: ABI REYNA Rep #: [id number] : 1955 68 From: Bruno Avila DO PCP: Dr. Ottoniel Page DO Status:[facility] Location: [place] [address] Operative Report (Standard) Operative Information Date of Procedure: 05/27/24 Pre-Operative Diagnosis: Right first carpal metacarpal joint osteoarthritis Post-Operative Diagnosis: Right first carpal metacarpal joint osteoarthritis Surgery/Procedure Performed: Right first carpometacarpal joint arthroplasty with trapezium excision, ligament reconstruction tendon interposition metal expediter: Yes Papeterie Table Assembler: Makeda Hermosillo Tasks completed by first helper: Opening closing and Implanting device Type of Anesthesia: Block,Axillary and General RN Documented Start/Stop Times: Operation Date: 05/27/24 11:45 Case Time Into Pre-Op 05/27/24 10:22 Anesthesia Start 05/27/24 11:48 Into Room 05/27/24 11:48 Out of Pre-Op 05/27/24 11:48 Procedure Start 05/27/24 12:06 Procedure End 05/27/24 13:36 Anesthesia End 05/27/24 13:41 Out of Room 05/27/24 13:41 Procedure Start Time: 12:06 Procedure Stop Time: 13:36 Select all DRAINS/GRAFTS/IMPLANT S that apply: Implanted device Implanted device details: Arthrex bio composite 4 x 10 mm tenodesis screw, fiber tape suture Estimated Blood Loss: 10 cc Specimen collected: No Description of surgery: Patient was seen in preoperative holding area. She was identified by name, medical record number, date of . The operative extremity was marked with a surgical marker. We confirmed informed consent with the patient and all questions were answered to his satisfaction. Axillary block was then placed by anesthesia staff prior to the procedure. At time of her procedure, patient was brought to the operative suite and positioned supine a standard operating table. All bony prominences were well-padded. General anesthesia was induced and endotracheal tube placed. The right upper extremity was then prepped for surgery by first applying a well-padded pneumatic tourniquet to the right upper arm. The hand table attached to the right side of the table. We spun the bed 90 degrees. The right upper extremities then prepped and draped in normal, sterile orthopedic fashion. 2 g Ancef was administered prior to incision by anesthesia staff. We performed a timeout at this point confirming side, site, and operation to be performed. No concerns voiced and elected to proceed. We first exsanguinated the right upper extremity with an Esmarch bandage. Tourniquet was inflated to 250 mmHg, approximately 1 hour inflation time. I first made my incision overlying the anatomic snuffbox of the right dorsal first CMC. Incision was carried sharply through skin and subcutaneous tissue. Superficial veins were cauterized. Superficial sensory branches from the radial nerve were protected and retracted. We bluntly dissected through the fascia down to the level of the dorsal branch of the radial artery. I retracted this dorsally after cauterizing capsular branches from the radial artery using bipolar cautery. We then identified the dorsal radial capsule of the first CMC. This was split in line with the incision and elevated subperiosteally. The trapezium was then freed from capsular attachment sharply with 15 blade scalpel and subsequently with a McGlamry elevator. We were able to free the trapezium circumferentially and excised the trapezium en bloc. This was examined and had severe degenerative changes on the distal articular surface at the first CMC. The trapezoid was examined and appeared unremarkable. The FCR was identified in the wound. Attenuation of the tendon was noted at this time. The wound was copiously irrigated with normal saline and any loose pieces of cartilage were debrided. I then turned my attention to the flexor carpi radialis and the right mid to distal forearm. A transverse incision approximately 5 mm was made overlying the flexor carpi radialis tendon. Superficial vein was identified and cauterized with bipolar cautery. I was then able to bluntly dissect through the tendon sheath down the level of the tendon. A Ragnell retractor was placed underneath the tendon and the tendon was pulled out of the wound. Sharply transected the tendon at the level of the incision. I then used a right angle hemostat to retrieve the flexor carpi radialis tendon from the distal wound. When I retrieved the distal tendon, it was noted that a complete rupture had occurred at the distal insertion of the FCR tendon. I made a decision to proceed with a suture suspensioplasty. FCR tendon stump was identified. I used a #2 tape suture to establish our suspensioplasty by first securing into the distal tendon stump of the FCR tendon. (more content not included)... Normal [facility] Electrocardiogram reportOrde red By: Daphne Manuel on 05-24-2024 EKG study [facility] Cardiovascular Services [address] [place] [address] 12 Lead EKG 05/21/24 0753 MR#: [id number] Acct: [id number] Name: ABI REYNA Rep #:[id number] : 1955 68 From: Daphne marie MD Attending Dr: Dr. Bruno Avila, DO Status: PRE SDC Ordering Dr: Bruno Avila DO Date: 05/21/24 Location: SDC Sex: F C Admitted: Test Reason : PRE OP Blood Pressure : */* mmHG Vent. Rate : 63 BPM Atrial Rate : 63 BPM P-R Int : 194 ms QRS Dur : 92 ms QT Int : 414 ms P-R-T Axes : 51 45 41 degrees QTcB Int : 423 ms Normal sinus rhythm Normal ECG Confirmed by BYRON RICK, BENJAMIN ([id number]), movie editor ATUL MARINO ([id number]) on 05/24/2024 10:51:06 AM Referred By: Bruno Avila Confirmed By: BENJAMIN MANUEL MD 05/24/24 105 Date _ Daphne Manuel MD CC: Dr. Ottoniel Page, ; Dr. Bruno Avila DO ~ Signed [facility] Work Phone: 12 Lead EKGon 05-21-2024 12 Lead EKG [facility] Cardiovascular Services [address] [place] [address] 12 Lead EKG 05/21/24 0753 MR#: [id number] Acct: [id number] Name: ABI REYNA Rep #: [id number] : 1955 68 From: Daphne Manuel MD Attending Dr: Dr. Bruno Avila DO Status: PRE SDC Ordering Dr: Bruno Avila DO Date: 05/21/24 Location: SDC Sex: F C Admitted: Test Reason : PRE OP Blood Pressure : */* mmHG Vent. Rate : 63 BPM Atrial Rate : 63 BPM P-R Int : 194 ms QRS Dur : 92 ms QT Int : 414 ms P-R-T Axes : 51 45 41 degrees QTcB Int : 423 ms Normal sinus rhythm Normal ECG Confirmed by BENJAMIN MANUEL MD ([id number]), movie editor ATUL MARINO ([id number]) on 05/24/2024 10:51:06 AM Referred By: Bruno Avila Confirmed By: BENJAMIN MANUEL MD 05/24/24 1051 Date Daphne Manuel MD CC: Dr. Ottoniel Page DO; Dr. Bruno Avila, DO Signed [facility] MR/PAT.[facility] 05-12-2024 MR/PAT.[facility] Medical Records Department [address] [place] [address] PAT - Anesthesia 05/12/24 1148 MR#: [id number] Acct: [id number] Name: ABI REYNA Rep #: [id number] : 1955 68 From: Lars Dela Cruz MD PCP: Dr. 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 When Was Last Pacemaker Check QUESTION #4 FULL TEXT: You/Your Family Experience fever (hyperthermia) with Anesthesia Last Oral Intake Last Oral intake: Last Oral Intake NPO since Meds taken in AM with sips of water? Meds patient instructed to take am of surgery PONV PONV - paymaster of purses: PONV - paymaster of purses Female Yes 05/12/24 11:05 HX of Motion Sickness Yes 05/12/24 11:05 HX of N/V After Surgery No 05/12/24 11:05 Non-Smoker Yes 05/12/24 11:05 Duration of Surgery greater Yes 05/12/24 11:05 than 60 minutes Number of Risk Factors 4 05/12/24 11:05 PONV Score Severe Risk 05/12/24 11:05 Height Weight Height Weight: Anesthesia: Height Weight Height 5 ft 10 in 08/11/23 08:29 Respiratory Assessment Respiratory Assessment - paymaster of purses: Respiratory Tract Infection Hx - paymaster of purses Hx Respiratory Tract Infection No 05/12/24 11:05 STOP Sleep Apnea STOP Sleep Apnea - paymaster of purses: STOP Sleep Apnea - paymaster of purses Hx Hypertension Yes: CONTROLLED WITH MEDS 05/12/24 11:05 Hx Sleep Apnea No 05/12/24 11:05 CPAP BIPAP Do you snore loudly (louder No 05/12/24 11:05 than talking or can be heard Do you often feel tired/ No 05/12/24 11:05 fatigued/ sleepy during daytime? Has anyone observed you stop No 05/12/24 11:05 breathing during sleep? STOP Results Negative 05/12/24 11:05 QUESTION #5 FULL TEXT : Do you snore loudly (louder than talking or can be heard through closed doors)? 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 Specify any problems Hx of Preganancy in last 3 No 05/12/24 11:05 Months Nurse Filling Out Transfusion [email or web address] 05/12/24 11:05 Questions: Date: 05/12/24 05/12/24 11:05 Time: 11:08 05/12/24 11:05 Patient unable to answer at this time (ie. confused, unrespo /Reproductio n History /Reproductiv e History - paymaster of purses: /Reproductiv e Hx- paymaster of purses Hx Now Gestational Age (in weeks): EDC: Hx Hx Para Hx Section SAB No 02/20/21 08:22 [facility] Medical History (Updated 05/12/24 @ 11:13 by Bernard Hernadez) History of steroid therapy History of Holter monitoring Cardiology follow-up encounter Wears glasses Wears dentures Arthritis Bladder disease Pulmonary embolism High cholesterol Restless legs Back pain History of IBS History of Crohn's disease Gastric reflux Former smoker Leg cramps History of pain when walking Hypertension History of stress test Hx of echocardiogram History of atrial fibrillation History of trigger finger Wide-complex tachycardia (04/27/20) COVID-19 virus detected (01/24/20) Obesity Lumbar stenosis without neurogenic claudication Essential (primary) hypertension History of pulmonary embolus (PE) (04/09/18) Thyroid goiter History of meningioma of the brain Crohn disease Anxiety and depression (more content not included)... Normal [facility] Absolute lymphocyte countOrd ered By: Bruno Avila on 05-10-2024 Lymphocytes Auto (Unsp spec) [#/Vol] 1.60 10*3/uL 0.83-4.51 [facility] Absolute neutrophil countOrd ered By: Bruno Avila on 05-10-2024 Neutrophils (Bld) [#/Vol] 4.7 10*3/uL 2.0-7.7 [facility] Automated lymphocyte count a s percentage of total leukocytesOrdered By: Bruno Avila on 05-10-2024 Lymphocytes/100 WBC Auto (Unsp spec) 22.3 % 19-41 [facility] BUN/creatinine ratioOrdered By: Bruno Avila on 05-10-2024 Urea nitrogen/Creatinine [Mass ratio] 13.5 mg/mg 10-20 [facility] Basic Metabolic Profile (BMP )on 05-10-2024 Anion gap [Moles/Vol] 10 mmol/L Normal 5-15 [facility] Comment on above: Order Comment: DR PAL STOKES NEEDS RESULTS OF CBC ALSO Performed By: #### L 100.0100, L500.2500 ####[facility] [address] [place], [address] BUN/CRE 13.5 RATIO Normal 10-20 [facility] Comment on above: Order Comment: DR PAL STOKES NEEDS RESULTS OF CBC ALSO Performed By: #### L 100.0100, L500.2500 ####[facility] [address] [place], [address] Calcium [Mass/Vol] 9.5 mg/dL Normal 7.6-11.0 [facility] Comment on above: Order Comment: DR PAL STOKES NEEDS RESULTS OF CBC ALSO Performed By: #### L 100.0100, L500.2500 ####[facility] [address] [place], [address] Chloride [Moles/Vol] 97 mmol/L Normal 96-108 [facility] Comment on above: Order Comment: DR PAL STOKES NEEDS RESULTS OF CBC ALSO Performed By: #### L 100.0100, L500.2500 ####[facility] [address] [place], [address] CO2 [Moles/Vol] 30.3 mmol/L High 22.0-29.0 [facility] Comment on above: Order Comment: DR PAL STOKES NEEDS RESULTS OF CBC ALSO Performed By: #### L 100.0100, L500.2500 ####[facility] [address] [place], [address] Creatinine [Mass/Vol] 0.65 mg/dL Low 0.70-1.20 [facility] Comment on above: Order Comment: DR PAL STOKES NEEDS RESULTS OF CBC ALSO Performed By: #### L 100.0100, L500.2500 ####[facility] [address] [place], [address] GFR/1.73 sq M.predicted among non-blacks MDRD (S/P/Bld) [Vol rate/Area] 96 mL/min/{1.73_m2} Normal >60 [facility] Comment on above: Order Comment: DR PAL STOKES NEEDS RESULTS OF CBC ALSO Result Comment: mL/m in/1.73m2 CKD-EPI Creatinine Equation (2020) Performed By: #### L 100.0100, L500.2500 ####[facility] [address] [place], [address] Glucose [Mass/Vol] 114 mg/dL High 70-99 [facility] Comment on above: Order Comment: DR PAL STOKES NEEDS RESULTS OF CBC ALSO Performed By: #### L 100.0100, L500.2500 ####[facility] [address] [place], [address] Potassium [Moles/Vol] 4.0 mmol/L Normal 3.3-5.1 [facility] Comment on above: Order Comment: DR PAL STOKES NEEDS RESULTS OF CBC ALSO Performed By: #### L 100.0100, L500.2500 ####[facility] [address] [place], [address] Sodium [Moles/Vol] 137 mmol/L Normal 133-145 [facility] Comment on above: Order Comment: DR PAL STOKES NEEDS RESULTS OF CBC ALSO Performed By: #### L 100.0100, L500.2500 ####[facility] [address] [place], [address] Urea nitrogen [Mass/Vol] 9 mg/dL Normal 4-19 [facility] Comment on above: Order Comment: DR PAL STOKES NEEDS RESULTS OF CBC ALSO Performed By: #### L 100.0100, L500.2500 ####[facility] [address] [place], [address] Anion Gap Normal 5-15 [facility] Comment on above: Result Comment: ANNA G V ACCOUNT Performed By: #### L 500.2500, L100.0100 ####[facility] [address] [place], [address] BUN Normal 4-19 [facility] Comment on above: Result Comment: WRON G V ACCOUNT Performed By: #### L 500.2500, L100.0100 ####[facility] [address] [place], [address] BUN/CRE Normal 10-20 [facility] Comment on above: Result Comment: WRON G V ACCOUNT Performed By: #### L 500.2500, L100.0100 ####[facility] [address] [place], [address] Calcium Normal 7.6-11.0 [facility] Comment on above: Result Comment: WRON G V ACCOUNT Performed By: #### L 500.2500, L100.0100 ####[facility] [address] [place], [address] Chloride Normal 96-108 [facility] Comment on above: Result Comment: WRON G V ACCOUNT Performed By: #### L 500.2500, L100.0100 ####[facility] [address] [place], [address] CO2 Normal 22.0-29.0 [facility] Comment on above: Result Comment: WRON G V ACCOUNT Performed By: #### L 500.2500, L100.0100 ####[facility] [address] [place], [address] CREAT,SERUM Normal 0.70-1.20 [facility] Comment on above: Result Comment: WRON G V ACCOUNT Performed By: #### L 500.2500, L100.0100 ####[facility] [address] [place], [address] eGFR Normal >60 [facility] Comment on above: Result Comment: WRON G V ACCOUNT Performed By: #### L 500.2500, L100.0100 ####[facility] [address] [place], [address] GLU Normal 70-99 [facility] Comment on above: Result Comment: WRON G V ACCOUNT Performed By: #### L 500.2500, L100.0100 ####[facility] [address] [place], [address] Potassium Normal 3.3-5.1 [facility] Comment on above: Result Comment: WRON G V ACCOUNT Performed By: #### L 500.2500, L100.0100 ####[facility] [address] [place], [address] Sodium Normal 133-145 [facility] Comment on above: Result Comment: WRON G V ACCOUNT Performed By: #### L 500.2500, L100.0100 ####[facility] [address] [place], [address] Basophil percentageOrdered B y: Bruno Avila on 05-10-2024 Basophils/100 WBC (Bld) 1.4 % High 0-1 [facility] CBC W/ Manual Differentialon 05-10-2024 Absolute Neut Normal 2.0-7.7 [facility] Comment on above: Result Comment: WRON G V ACCOUNT Performed By: #### L 100.0125 #### [facility] [address] [place], [address] HCT Normal 37-47 [facility] Comment on above: Result Comment: WRON G V ACCOUNT Performed By: #### L 100.0125 #### [facility] [address] [place], [address] HGB Normal 12.0-15.0 [facility] Comment on above: Result Comment: WRON G V ACCOUNT Performed By: #### L 100.0125 #### [facility] [address] [place], [address] MCH Normal 27.0-32.0 [facility] Comment on above: Result Comment: WRON G V ACCOUNT Performed By: #### L 100.0125 #### [facility] [address] [place], [address] MCHC Normal 32-36 [facility] Comment on above: Result Comment: WRON G V ACCOUNT Performed By: #### L 100.0125 #### [facility] [address] [place], [address] MCV Normal 81-99 [facility] Comment on above: Result Comment: WRON G V ACCOUNT Performed By: #### L 100.0125 #### [facility] [address] [place], [address] PLT Normal 150-450 [facility] Comment on above: Result Comment: WRON G V ACCOUNT Performed By: #### L 100.0125 #### [facility] [address] [place], [address] RBC Normal 4.2-5.4 [facility] Comment on above: Result Comment: WRON G V ACCOUNT Performed By: #### L 100.0125 #### [facility] [address] [place], [address] RDW Normal 11.6-14.6 [facility] Comment on above: Result Comment: WRON G V ACCOUNT Performed By: #### L 100.0125 #### [facility] [address] [place], [address] WBC Normal 4.4-11.0 [facility] Comment on above: Result Comment: WRON G V ACCOUNT Performed By: #### L 100.0125 #### [facility] [address] [place], [address] CBC W/Diff, Automatedon 03-0 3-2024 Absolute Lymph 1.60 X10 3/uL Normal 0.83-4.51 [facility] Comment on above: Order Comment: DR. Alpa DONOVAN NEEDS RESULTS OF CBC ALSO Performed By: #### L 100.0100, L500.2500 #### [facility] [address] [place], [address] Absolute Neut 4.7 X10 3/uL Normal 2.0-7.7 [facility] Comment on above: Order Comment: DR. Alpa DONOVAN NEEDS RESULTS OF CBC ALSO Performed By: #### L 100.0100, L500.2500 #### [facility] [address] [place], [address] Basophils/100 WBC (Bld) 1.4 % High 0-1 [facility] Comment on above: Order Comment: DR. Alpa DONOVAN NEEDS RESULTS OF CBC ALSO Performed By: #### L 100.0100, L500.2500 #### [facility] [address] [place], [address] Eosinophils/100 WBC (Bld) 3.9 % Normal 0-5 [facility] Comment on above: Order Comment: DR. Alpa DONOVAN NEEDS RESULTS OF CBC ALSO Performed By: #### L 100.0100, L500.2500 #### [facility] [address] [place], [address] Erythrocyte distribution width (RBC) [Ratio] 13.8 % Normal 11.6-14.6 [facility] Comment on above: Order Comment: DR. Alpa DONOVAN NEEDS RESULTS OF CBC ALSO Performed By: #### L 100.0100, L500.2500 #### [facility] [address] [place], [address] Hematocrit (Bld) [Volume fraction] 45.9 % Normal 37-47 [facility] Comment on above: Order Comment: DR. Alpa DONOVAN NEEDS RESULTS OF CBC ALSO Performed By: #### L 100.0100, L500.2500 #### [facility] [address] [place], [address] Hemoglobin (Bld) [Mass/Vol] 14.7 g/dL Normal 12.0-15.0 [facility] Comment on above: Order Comment: DR. Alpa DONOVAN NEEDS RESULTS OF CBC ALSO Performed By: #### L 100.0100, L500.2500 #### [facility] [address] [place], [address] IG% 0.400 Normal 0.0-0.9 [facility] Comment on above: Order Comment: DR. Alpa DONOVAN NEEDS RESULTS OF CBC ALSO Result Comment: IG% - Immature Granulocytes (promyelocytes, myelocytes and metamyelocytes) > 1% indicates that a LEFT SHIFT is Present. Performed By: #### L 100.0100, L500.2500 #### [facility] [address] [place], [address] Lymphocytes/100 WBC (Bld) 22.3 % Normal 19-41 [facility] Comment on above: Order Comment: DR. Alpa DONOVAN NEEDS RESULTS OF CBC ALSO Performed By: #### L 100.0100, L500.2500 #### [facility] [address] [place], [address] MCH (RBC) [Entitic mass] 27.0 pg Normal 27.0-32.0 [facility] Comment on above: Order Comment: DR. Alpa DONOVAN NEEDS RESULTS OF CBC ALSO Performed By: #### L 100.0100, L500.2500 #### [facility] [address] [place], [address] MCHC (RBC) [Mass/Vol] 32.0 g/dL Normal 32-36 [facility] Comment on above: Order Comment: DR. Alpa DONOVAN NEEDS RESULTS OF CBC ALSO Performed By: #### L 100.0100, L500.2500 #### [facility] [address] [place], [address] MCV (RBC) [Entitic vol] 84.2 fL Normal 81-99 [facility] Comment on above: Order Comment: DR. Alpa DONOVAN NEEDS RESULTS OF CBC ALSO Performed By: #### L 100.0100, L500.2500 #### [facility] [address] [place], [address] Monocytes/100 WBC (Bld) 6.8 % Normal 0-10 [facility] Comment on above: Order Comment: DR. Alpa DONOVAN NEEDS RESULTS OF CBC ALSO Performed By: #### L 100.0100, L500.2500 #### [facility] [address] [place], [address] Neutrophils/100 WBC (Bld) 65.2 % Normal 47-70 [facility] Comment on above: Order Comment: DR. Alpa DONOVAN NEEDS RESULTS OF CBC ALSO Performed By: #### L 100.0100, L500.2500 #### [facility] [address] [place], [address] Nucleated RBC (Bld) [#/Vol] 0 10*3/uL Normal 0-5 [facility] Comment on above: Order Comment: DR. Alpa DONOVAN NEEDS RESULTS OF CBC ALSO Performed By: #### L 100.0100, L500.2500 #### [facility] [address] [place], [address] Platelet mean volume (Bld) [Entitic vol] 11.5 fL Normal 6.2-12.0 [facility] Comment on above: Order Comment: DR. Alpa DONOVAN NEEDS RESULTS OF CBC ALSO Performed By: #### L 100.0100, L500.2500 #### [facility] [address] [place], [address] Platelets (Bld) [#/Vol] 241 10*3/uL Normal 150-450 [facility] Comment on above: Order Comment: DR. Alpa DONOVAN NEEDS RESULTS OF CBC ALSO Performed By: #### L 100.0100, L500.2500 #### [facility] [address] [place], [address] RBC (Bld) [#/Vol] 5.45 10*6/uL High 4.2-5.4 [facility] Comment on above: Order Comment: DR. Alpa DONOVAN NEEDS RESULTS OF CBC ALSO Performed By: #### L 100.0100, L500.2500 #### [facility] [address] [place], [address] RDW SD 42.1 fl Normal 35.1-43.9 [facility] Comment on above: Order Comment: DR. Alpa DONOVAN NEEDS RESULTS OF CBC ALSO Performed By: #### L 100.0100, L500.2500 #### [facility] [address] [place], [address] WBC (Bld) [#/Vol] 7.2 10*3/uL Normal 4.4-11.0 [facility] Comment on above: Order Comment: DR. Alpa DONOVAN NEEDS RESULTS OF CBC ALSO Performed By: #### L 100.0100, L500.2500 #### [facility] [address] [place], [address] Absolute Neut Normal 2.0-7.7 [facility] Comment on above: Result Comment: WRON G V ACCOUNT Performed By: #### L 500.2500, L100.0100 ####[facility] [address] [place], [address] HCT Normal 37-47 [facility] Comment on above: Result Comment: WRON G V ACCOUNT Performed By: #### L 500.2500, L100.0100 ####[facility] [address] [place], [address] HGB Normal 12.0-15.0 [facility] Comment on above: Result Comment: WRON G V ACCOUNT Performed By: #### L 500.2500, L100.0100 ####[facility] [address] [place], [address] MCH Normal 27.0-32.0 [facility] Comment on above: Result Comment: WRON G V ACCOUNT Performed By: #### L 500.2500, L100.0100 ####[facility] [address] [place], [address] MCHC Normal 32-36 [facility] Comment on above: Result Comment: WRON G V ACCOUNT Performed By: #### L 500.2500, L100.0100 ####[facility] [address] [place], [address] MCV Normal 81-99 [facility] Comment on above: Result Comment: WRON G V ACCOUNT Performed By: #### L 500.2500, L100.0100 ####[facility] [address] [place], [address] NEUT% Normal 47-70 [facility] Comment on above: Result Comment: WRON G V ACCOUNT Performed By: #### L 500.2500, L100.0100 ####[facility] [address] [place], [address] PLT Normal 150-450 [facility] Comment on above: Result Comment: WRON G V ACCOUNT Performed By: #### L 500.2500, L100.0100 ####[facility] [address] [place], [address] RBC Normal 4.2-5.4 [facility] Comment on above: Result Comment: WRON G V ACCOUNT Performed By: #### L 500.2500, L100.0100 ####[facility] [address] [place], [address] RDW CV Normal 11.6-14.6 [facility] Comment on above: Result Comment: WRON G V ACCOUNT Performed By: #### L 500.2500, L100.0100 ####[facility] [address] [place], [address] RDW SD Normal 35.1-43.9 [facility] Comment on above: Result Comment: WRON G V ACCOUNT Performed By: #### L 500.2500, L100.0100 ####[facility] [address] [place], [place], [address] WBC Normal 4.4-11.0 [facility] Comment on above: Result Comment: WRANCELMO Salgado V ACCOUNT Performed By: #### L 500.2500, L100.0100 ####[facility] [address] [place], [place], [address] Carbon dioxide measurementOr dered By: Bruno Avila on 05-10-2024 CO2 [Moles/Vol] 30.3 mmol/L High 22.0-29.0 [facility] Chloride measurementOrdered By: Bruno Avila on 05-10-2024 Chloride [Moles/Vol] 97 mmol/L 96-108 [facility] Eosinophil percentageOrdered By: Bruno Avila on 05-10-2024 Eosinophils/100 WBC (Bld) 3.9 % 0-5 [facility] Erythrocyte distribution wid th ratioOrdered By: Bruno Avila on 05-10-2024 Erythrocyte distribution width (RBC) [Ratio] 13.8 % 11.6-14.6 [facility] Erythrocyte distribution wid th standard deviationOrdered By: Bruno Avila on 05-10-2024 Erythrocyte distribution width (RBC) [Entitic vol] 42.1 fL 35.1-43.9 [facility] Erythrocyte distribution width (RBC) [Ratio] 42.1 fl 35.1-43.9 [facility] GFR/1.73 sq M.predicted nikki g non-blacks MDRD (S/P/Bld) [Vol rate/Area]Ordered By: Bruno Avila on 05-10-2024 Estimated GFR (MDRD) Non-Af Amer 96 >60 [facility] Comment on above: mL/min/1.73m2 CKD-EP I Creatinine Equation (2020) Glomerular filtration rate ( GFR) estimation/1.73 sq m using serum, plasma, or whole bOrdered By: Bruno Avila on 05-10-2024 GFR/1.73 sq M.predicted among non-blacks MDRD (S/P/Bld) [Vol rate/Area] 96 mL/min/{1.73_m2} >60 [facility] Comment on above: mL/min/1.73m2 CKD-EP I Creatinine Equation (2020) Hematocrit Auto (Bld) [Volum e fraction]Ordered By: Bruno Avila on 05-10-2024 Hematocrit (Bld) [Volume fraction] 45.9 % 37-47 [facility] Hemoglobin measurementOrdere d By: Bruno Avila on 05-10-2024 Hemoglobin (Bld) [Mass/Vol] 14.7 g/dL 12.0-15.0 [facility] Immature granulocytes/100 WB C Auto (Bld)Ordered By: Bruno Avila on 05-10-2024 Immature granulocytes/100 WBC (Bld) 0.400 % 0.0-0.9 [facility] Comment on above: IG% - Immature Granu locytes (promyelocytes, myelocytes and metamyelocytes) > 1% indicates that a LEFT SHIFT is Present. Lymphocytes Auto (Unsp spec) [#/Vol]Ordered By: Bruno Avila on 05-10-2024 Lymphocytes (Bld) [#/Vol] 1.60 10*3/uL 0.83-4.51 [facility] Lymphocytes/100 WBC Auto (Un sp spec)Ordered By: Bruno Avila on 05-10-2024 Lymphocytes/100 WBC (Bld) 22.3 % 19-41 [facility] MCV (mean corpuscular volume ) determinationOrdered By: Bruno Avila on 05-10-2024 MCV (RBC) [Entitic vol] 84.2 fL 81-99 [facility] Mean corpuscular hemoglobin (MCH) determinationOrdered By: Bruno Avila on 05-10-2024 MCH (RBC) [Entitic mass] 27.0 pg 27.0-32.0 [facility] Mean corpuscular hemoglobin concentration (MCHC) determinationOrdered By: Bruno Avila on 05-10-2024 MCHC (RBC) [Mass/Vol] 32.0 g/dL 32-36 [facility] Mean platelet volume determi nationOrdered By: Bruno Avila on 05-10-2024 Platelet mean volume (Bld) [Entitic vol] 11.5 fL 6.2-12.0 [facility] Monocyte percentageOrdered B y: Bruno Avila on 05-10-2024 Monocytes/100 WBC (Bld) 6.8 % 0-10 [facility] Neutrophil percentageOrdered By: Bruno Avila on 05-10-2024 Neutrophils/100 WBC (Bld) 65.2 % 47-70 [facility] Nucleated red blood cell per centageOrdered By: Bruno Avila on 05-10-2024 Nucleated RBC/100 WBC (Bld) [Ratio] 0 % 0-5 [facility] Platelet countOrdered By: Rosita Avila on 05-10-2024 Platelets (Bld) [#/Vol] 241 10*3/uL 150-450 [facility] RBC Auto (Bld) [#/Vol]Ordere d By: Bruno Avila on 05-10-2024 RBC (Bld) [#/Vol] 5.45 10*6/uL High 4.2-5.4 [facility] Serum creatinine measurement (mass/volume)Ordered By: Bruno Avila on 05-10-2024 Creatinine [Mass/Vol] 0.65 mg/dL Low 0.70-1.20 [facility] Serum glucose measurement (m ass/volume)Ordered By: Bruno Avila on 05-10-2024 Glucose [Mass/Vol] 114 mg/dL High 70-99 [facility] Serum or plasma anion gap de termination (moles/volume)Ordered By: Bruno Avila on 05-10-2024 Anion gap [Moles/Vol] 10 mmol/L 5-15 [facility] Serum or plasma calcium [place] urement (mass/volume)Ordered By: Bruno Avila on 05-10-2024 Calcium [Mass/Vol] 9.5 mg/dL 7.6-11.0 [facility] Serum or plasma potassium me asurementOrdered By: Bruno Avila on 05-10-2024 Potassium [Moles/Vol] 4.0 mmol/L 3.3-5.1 [facility] Serum or plasma sodium measu rement (moles/volume)Ordered By: Bruno Avila on 05-10-2024 Sodium [Moles/Vol] 137 mmol/L 133-145 [facility] Serum or plasma urea nitroge n measurement (mass/volume)Ordered By: Bruno Avila on 05-10-2024 Urea nitrogen [Mass/Vol] 9 mg/dL 4-19 [facility] White blood cell (WBC) count Ordered By: Bruno Avila on 05-10-2024 WBC (Bld) [#/Vol] 7.2 10*3/uL 4.4-11.0 [facility] HIP, UNI W/ Pelvis 2-3 Views on 04-20-2024 HIP, UNI W/ Pelvis 2-3 Views [facility] Imaging Services [address], [place] [id number] HIP, UNI W/ Pelvis 2-3 Views MR#: [id number] Acct: [id number] Name: ABI REYNA Rep #: [id number] : 1955 F 68 From: Bob amaro MD PCP: Dr. Ottoniel Page DO Status: REG CLI Study: HIP, UNI W/ Pelvis 2-3 Views Date of Exam: 02/01 Exam# [id number] Ordering Dr: Daly Del Rio EXAM: HIP, UNI W/ PELVIS 2-3 VIEWS CLINICAL HISTORY: Right hip pain. COMPARISON: None. TECHNIQUE: Three views were obtained. FINDINGS: Moderate degree of joint space narrowing involving both hip joints with acetabular spurs. Narrowing and sclerosis of the symphysis pubis. Degenerative changes of the sacroiliac joints. A calcified phlebolith is seen in the right hemipelvis. RAD/HIP, UNI W/ Pelvis 2-3 Views IMPRESSION: Degenerative changes as described. Reading Location: [place] [address] CC: Daly Del Rio; Dr. Ottoniel Page DO Electrical Equipment Technician: Signed Normal [facility] L/S Spine Min 4 Viewson 04-10 L/S Spine Min 4 Views [facility] [address] [place] [address] L/S Spine Min 4 Views MR#: [id number] Acct: [id number] Name: ABI REYNA Rep #: [id number] : 1955 F 68 From: Mitch Rogers PCP: Dr. Ottoniel Page DO Status: REG CLI Study: L/S Spine Min 4 Views Date of Exam: 04/20/24 Exam# [id number] Ordering Dr: Daly Del Rio PROCEDURE: L/S SPINE MIN 4 VIEWS REASON FOR EXAM: Pain. TECHNIQUE: 6 view lumbar spine series including bilateral oblique and lateral flexion and extension views. COMPARISON: None. RAD/L/S Spine Min 4 Views IMPRESSION: Right upper quadrant abdominal surgical clips are noted. Mild right and qegk-ak-tzxqemkt left sacroiliac joint degenerative changes are noted. No evidence of spondylolysis. Slight anterolisthesis of L4 upon L5 is noted. No dynamic instability is seen on lateral flexion and extension views. Xmvc-kn-grtwkyua degenerative changes are seen throughout the lumbar spine, most prominent at the mid to lower lumbar posterior facets. Moderate disc narrowing is seen at L4-L5 and L5-S1 levels. No fracture site is evident. Reading Location: [address] CC: Daly Del Rio; Dr. Ottoniel Page DO Electrical Equipment Technician: Signed Normal [facility] CBC W/Diff, Automatedon 10-2 Absolute Lymph 1.50 X10 3/uL Normal 0.83-4.51 [facility] Comment on above: Performed By: #### L 100.0100 ####[facility] [address] [place], [address] Absolute Neut 4.4 X10 3/uL Normal 2.0-7.7 [facility] Comment on above: Performed By: #### L 100.0100 ####[facility] [address] [place], [address] Basophils/100 WBC (Bld) 1.0 % Normal 0-1 [facility] Comment on above: Performed By: #### L 100.0100 ####[facility] [address] [place], [address] Eosinophils/100 WBC (Bld) 4.1 % Normal 0-5 [facility] Comment on above: Performed By: #### L 100.0100 ####[facility] [address] [place], [address] Erythrocyte distribution width (RBC) [Ratio] 14.3 % Normal 11.6-14.6 [facility] Comment on above: Performed By: #### L 100.0100 ####[facility] [address] [place], [address] Hematocrit (Bld) [Volume fraction] 45.9 % Normal 37-47 [facility] Comment on above: Performed By: #### L 100.0100 ####[facility] [address] [place], [address] Hemoglobin (Bld) [Mass/Vol] 14.3 g/dL Normal 12.0-15.0 [facility] Comment on above: Performed By: #### L 100.0100 ####[facility] [address] [place], [address] IG% 0.300 Normal 0.0-0.9 [facility] Comment on above: Result Comment: IG% - Immature Granulocytes (promyelocytes, myelocytes and metamyelocytes) > 1% indicates that a LEFT SHIFT is Present. Performed By: #### L 100.0100 ####[facility] [address] [place], [address] Lymphocytes/100 WBC (Bld) 22.2 % Normal 19-41 [facility] Comment on above: Performed By: #### L 100.0100 ####[facility] [address] [place], [address] MCH (RBC) [Entitic mass] 26.7 pg Low 27.0-32.0 [facility] Comment on above: Performed By: #### L 100.0100 ####[facility] [address] [place], [address] MCHC (RBC) [Mass/Vol] 31.2 g/dL Low 32-36 [facility] Comment on above: Performed By: #### L 100.0100 ####[facility] [address] [place], [address] MCV (RBC) [Entitic vol] 85.8 fL Normal 81-99 [facility] Comment on above: Performed By: #### L 100.0100 ####[facility] [address] [place], [address] Monocytes/100 WBC (Bld) 7.6 % Normal 0-10 [facility] Comment on above: Performed By: #### L 100.0100 ####[facility] [address] [place], [address] Neutrophils/100 WBC (Bld) 64.8 % Normal 47-70 [facility] Comment on above: Performed By: #### L 100.0100 ####[facility] [address] [place], [address] Nucleated RBC (Bld) [#/Vol] 0 10*3/uL Normal 0-5 [facility] Comment on above: Performed By: #### L 100.0100 ####[facility] [address] [place], [address] Platelet mean volume (Bld) [Entitic vol] 11.8 fL Normal 6.2-12.0 [facility] Comment on above: Performed By: #### L 100.0100 ####[facility] [address] [place], [address] Platelets (Bld) [#/Vol] 218 10*3/uL Normal 150-450 [facility] Comment on above: Performed By: #### L 100.0100 ####[facility] [address] [place], [address] RBC (Bld) [#/Vol] 5.35 10*6/uL Normal 4.2-5.4 [facility] Comment on above: Performed By: #### L 100.0100 ####[facility] [address] [place], [address] RDW SD 43.8 fl Normal 35.1-43.9 [facility] Comment on above: Performed By: #### L 100.0100 ####[facility] [address] [place], [address] WBC (Bld) [#/Vol] 6.8 10*3/uL Normal 4.4-11.0 [facility] Comment on above: Performed By: #### L 100.0100 ####[facility] [address] [place], [address] HIP, UNI W/ Pelvis 2-3 Views on 01-05-2024 HIP, UNI W/ Pelvis 2-3 Views [facility] Imaging Services [address] [place] [address] HIP, UNI W/ Pelvis 2-3 Views MR#: [id number] Acct: [id number] Name: ABI REYNA Rep #: [id number] : 1955 F 68 From: Chavez Rogers PCP: Dr. Ottoniel Page, DO Status: REG RCR Study: HIP, UNI W/ Pelvis 2-3 Views Date of Exam: Exam# [id number] Ordering Dr: Daly Del Rio [id number] EXAM: XR LEFT HIP WITH PELVIS WHEN PERFORMED, 2 OR 3 VIEWS CLINICAL INDICATION: LEFT HIP PAIN VERSUS RADICULAR SYMTOM TECHNIQUE: Two or three views of the left hip with pelvis when performed. COMPARISON: No relevant prior studies available. FINDINGS: BONES/JOINTS: Unremarkable. No displaced fracture. No destructive or sclerotic lesions. Note that overlapping bowel shadows may however obscure fine detail. Sacroiliac joint is unremarkable. No widening of the pubic symphysis. The articular structures are unremarkable. SOFT TISSUES: Unremarkable. No soft tissue swelling or gas. RAD/HIP, UNI W/ Pelvis 2-3 Views IMPRESSION: No evidence of displaced pelvic or hip fracture. Electronically Signed: Chavez Bedoya MD at 4:06 EDT , CC: Daly Del Rio; Dr. 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, [address] Absolute Neut 4.2 X10 3/uL Normal 2.0-7.7 [facility] Comment on above: Performed By: #### L 100.0100 #### [facility] [address] [place], [address] Basophils/100 WBC (Bld) 1.1 % High 0-1 [facility] Comment on above: Performed By: #### L 100.0100 #### [facility] [address] [place], [address] Eosinophils/100 WBC (Bld) 3.2 % Normal 0-5 [facility] Comment on above: Performed By: #### L 100.0100 #### [facility] [address] [place], [address] Erythrocyte distribution width (RBC) [Ratio] 14.8 % High 11.6-14.6 [facility] Comment on above: Performed By: #### L 100.0100 #### [facility] [address] [place], [address] Hematocrit (Bld) [Volume fraction] 47.8 % High 37-47 [facility] Comment on above: Performed By: #### L 100.0100 #### [facility] [address] [place], [address] Hemoglobin (Bld) [Mass/Vol] 14.9 g/dL Normal 12.0-15.0 [facility] Comment on above: Performed By: #### L 100.0100 #### [facility] [address] [place], [address] IG% 0.300 Normal 0.0-0.9 [facility] Comment on above: Result Comment: IG% - Immature Granulocytes (promyelocytes, myelocytes and metamyelocytes) > 1% indicates that a LEFT SHIFT is Present. Performed By: #### L 100.0100 #### [facility] [address] [place], [address] Lymphocytes/100 WBC (Bld) 24.5 % Normal 19-41 [facility] Comment on above: Performed By: #### L 100.0100 #### [facility] [address] [place], [address] MCH (RBC) [Entitic mass] 25.9 pg Low 27.0-32.0 [facility] Comment on above: Performed By: #### L 100.0100 #### [facility] [address] [place], [address] MCHC (RBC) [Mass/Vol] 31.2 g/dL Low 32-36 [facility] Comment on above: Performed By: #### L 100.0100 #### [facility] [address] [place], [address] MCV (RBC) [Entitic vol] 83.1 fL Normal 81-99 [facility] Comment on above: Performed By: #### L 100.0100 #### [facility] [address] [place], [address] Monocytes/100 WBC (Bld) 7.5 % Normal 0-10 [facility] Comment on above: Performed By: #### L 100.0100 #### [facility] [address] [place], [address] Neutrophils/100 WBC (Bld) 63.4 % Normal 47-70 [facility] Comment on above: Performed By: #### L 100.0100 #### [facility] [address] [place], [address] Nucleated RBC (Bld) [#/Vol] 0 10*3/uL Normal 0-5 [facility] Comment on above: Performed By: #### L 100.0100 #### [facility] [address] [place], [address] Platelet mean volume (Bld) [Entitic vol] 11.5 fL Normal 6.2-12.0 [facility] Comment on above: Performed By: #### L 100.0100 #### [facility] [address] [place], [address] Platelets (Bld) [#/Vol] 262 10*3/uL Normal 150-450 [facility] Comment on above: Performed By: #### L 100.0100 #### [facility] [address] [place], [address] RBC (Bld) [#/Vol] 5.75 10*6/uL High 4.2-5.4 [facility] Comment on above: Performed By: #### L 100.0100 #### [facility] [address] [place], [address] RDW SD 44.1 fl High 35.1-43.9 [facility] Comment on above: Performed By: #### L 100.0100 #### [facility] [address] [place], [address] WBC (Bld) [#/Vol] 6.7 10*3/uL Normal 4.4-11.0 [facility] Comment on above: Performed By: #### L 100.0100 #### [facility] [address] [place], [address] Iron measurement (mass/mass) Ordered By: Facundo Kat on 07-05-2023 Iron (Unsp spec) [Mass/Mass] 55 ug/dL 50-170 [facility] Comment on above: Moderate Hemolysis, Result may be falsely increased. Laboratory - Chemistry and C hemistry - challengeOrdered By: Facundo Kat on 07-05-2023 Ferritin [Mass/Vol] 24 ng/mL 8-252 [facility] No Panel InformationOrdered By: Facundo Kat on 07-05-2023 C-Reactive Protein Extended Range 7.67 mg/L 0.0-3.0 [facility] Comment on above: C-Reactive Protein ( CRP) provides useful information for thediagnosis, therapy and monitoring of inflammatory processesand associated diseases. For the evaluation of Relative Riskfor Cardiovascular Disease, a High Sensitivity CRP (HSCRP)should be ordered. Total Iron Binding Capacity 486 ug/dL 250-450 [facility] Comment on above: Moderate Hemolysis, Result may be falsely increased. Serum or plasma iron saturat ion measurement (mass fraction)Ordered By: Facundo Kat on 07-05-2023 Iron saturation [Mass fraction] 11.3 % 15.0-55.0 [facility] Absolute lymphocyte countOrd ered By: Facundo Kat on 06-20-2023 Lymphocytes Auto (Unsp spec) [#/Vol] 2.04 10*3/uL 0.83-4.51 [facility] Automated lymphocyte count a s percentage of total leukocytesOrdered By: Facundo Kat on 06-20-2023 Lymphocytes/100 WBC Auto (Unsp spec) 25.3 % 19-41 [facility] Basophil percentageOrdered B y: Facundo Kat on 06-20-2023 Basophils/100 WBC (Bld) 1.6 % 0-1 [facility] Eosinophils/100 WBC (Bld) 3.2 % 0-5 [facility] Hemoglobin (Bld) [Mass/Vol] 12.6 g/dL 12.0-15.0 [facility] Monocytes/100 WBC (Bld) 8.1 % 0-10 [facility] Neutrophils (Bld) [#/Vol] 4.9 10*3/uL 2.0-7.7 [facility] Neutrophils/100 WBC (Bld) 61.4 % 47-70 [facility] WBC (Bld) [#/Vol] 8.1 10*3/uL 4.4-11.0 [facility] Blood manual differential co mment interpretation (narrative result)Ordered By: Facundo Kat on 06-20-2023 Manual differential comment Popeye (Bld) [Interp] SCANNED [facility] Comment on above: Please note: For thi s sample, a platelet estimate is provided rather than a platelet count due to platelet clumping. Other parameters associated with this sample are not affected by platelet clumping. If a more accurate platelet count is required, a redraw of the patient will be necessary. Blood platelet adequacy dete ction by light microscopyOrdered By: Facundo Kat on 06-20-2023 Platelets LM Ql (Bld) ADEQUATE ADEQ [facility] Determination of erythrocyte mean corpuscular volume (MCV)Ordered By: Facundo Kat on 06-20-2023 MCV (RBC) [Entitic vol] 75.5 fL 81-99 [facility] Erythrocyte distribution wid th ratioOrdered By: Facundo Kat on 06-20-2023 Erythrocyte distribution width (RBC) [Ratio] 15.9 % 11.6-14.6 [facility] Erythrocyte distribution wid th standard deviationOrdered By: Facundo Kat on 06-20-2023 Erythrocyte distribution width (RBC) [Entitic vol] 42.6 fL 35.1-43.9 [facility] Hematocrit Auto (Bld) [Volum e fraction]Ordered By: Facundo Kat on 06-20-2023 Hematocrit (Bld) [Volume fraction] 43.4 % 37-47 [facility] Immature granulocytes/100 WB C Auto (Bld)Ordered By: Facundo Kat on 06-20-2023 Immature granulocytes/100 WBC (Bld) 0.400 % 0.0-0.9 [facility] Comment on above: IG% - Immature Granu locytes (promyelocytes, myelocytes and metamyelocytes) > 1% indicates that a LEFT SHIFT is Present. Laboratory - Hematology and Cell countsOrdered By: Facundo Kat on 06-20-2023 MCH (RBC) [Entitic mass] 21.9 pg 27.0-32.0 [facility] MCHC (RBC) [Mass/Vol] 29.0 g/dL 32-36 [facility] Nucleated RBC/100 WBC (Bld) [Ratio] 0 % 0-5 [facility] Platelet mean volume (Bld) [Entitic vol] 11.9 fL 6.2-12.0 [facility] No Panel InformationOrdered By: Facundo Kat on 06-20-2023 Platelet Count TNP [facility] Comment on above: Test not performedPl ease note: For this sample, a platelet estimate is provided rather than a platelet count due to platelet clumping. Other parameters associated with this sample are not affected by platelet clumping. If a more accurate platelet count is required, a redraw of the patient will be necessary.Previous reported result: 263 [id number] by: CHRISTIN on 06/20/23:8 AMENDED REPORT 06/20/231817 PLT previously reported as: 263 K/mm3 RBC Auto (Bld) [#/Vol]Ordere d By: Facundo Kat on 06-20-2023 RBC (Bld) [#/Vol] 5.75 10*6/uL 4.2-5.4 [facility] Absolute lymphocyte countOrd ered By: Ottoniel Page on 11-22-2022 Lymphocytes Auto (Unsp spec) [#/Vol] 1.60 10*3/uL 0.83-4.51 [facility] Basophil percentageOrdered B y: Ottoniel Page on 11-22-2022 Basophils/100 WBC (Bld) 1.2 % 0-1 [facility] Bilirubin [Mass/Vol] 0.50 mg/dL 0.20-1.00 [facility] Comment on above: For patients on eltr ombopag therapy, use of Dimension [place] TBIL is not recommended. Chloride [Moles/Vol] 101 mmol/L 98-107 [facility] Eosinophils/100 WBC (Bld) 1.9 % 0-5 [facility] Glucose [Mass/Vol] 110 mg/dL 74-106 [facility] Comment on above: Fasting Glucose resu lt from 100 to 125 mg/dL suggests IMPAIRED HOMEOSTASIS per A.D.A. criteria. Neutrophils (Bld) [#/Vol] 4.4 10*3/uL 2.0-7.7 [facility] Neutrophils/100 WBC (Bld) 64.6 % 47-70 [facility] Potassium [Moles/Vol] 3.3 mmol/L 3.5-5.1 [facility] Protein [Mass/Vol] 7.2 g/dL 6.4-8.2 [facility] Sodium [Moles/Vol] 139 mmol/L 136-145 [facility] WBC (Bld) [#/Vol] 6.8 10*3/uL 4.4-11.0 [facility] Blood erythrocytes count (nu mber/volume)Ordered By: Ottoniel Page on 11-22-2022 RBC (Bld) [#/Vol] 5.74 10*6/uL 4.2-5.4 [facility] Blood hemoglobin measurement (mass/volume)Ordered By: Ottoniel Page on 11-22-2022 Hemoglobin (Bld) [Mass/Vol] 13.5 g/dL 12.0-15.0 [facility] Blood lymphocytes/100 leukoc ytesOrdered By: Ottoniel Page on 11-22-2022 Lymphocytes/100 WBC (Bld) 23.4 % 19-41 [facility] Blood monocytes/100 leukocyt esOrdered By: Ottoniel Page on 11-22-2022 Monocytes/100 WBC (Bld) 8.5 % 0-10 [facility] Blood platelet mean volumeOr dered By: Ottoniel Page on 11-22-2022 Platelet mean volume (Bld) [Entitic vol] 11.6 fL 6.2-12.0 [facility] Determination of erythrocyte mean corpuscular volume (MCV)Ordered By: Ottoniel Page on 11-22-2022 MCV (RBC) [Entitic vol] 80.3 fL 81-99 [facility] Hematocrit Auto (Bld) [Volum e fraction]Ordered By: Ottoniel Page on 11-22-2022 Hematocrit (Bld) [Volume fraction] 46.1 % 37-47 [facility] Laboratory - Chemistry and C hemistry - challengeOrdered By: Ottoniel Page on 11-22-2022 ALP [Catalytic activity/Vol] 61 U/L 45-117 [facility] ALT [Catalytic activity/Vol] 49 U/L 13-56 [facility] CO2 [Moles/Vol] 33.0 mmol/L 21.0-32.0 [facility] Globulin (S) [Mass/Vol] 3.9 g/dL 2.2-4.2 [facility] Urea nitrogen/Creatinine [Mass ratio] 15.9 mg/mg 10-20 [facility] Laboratory - Hematology and Cell countsOrdered By: Ottoniel Page on 11-22-2022 Erythrocyte distribution width (RBC) [Entitic vol] 46.4 fL 35.1-43.9 [facility] Erythrocyte distribution width (RBC) [Ratio] 16.1 % 11.6-14.6 [facility] Immature granulocytes/100 WBC (Bld) 0.400 % 0.0-0.9 [facility] Comment on above: IG% - Immature Granu locytes (promyelocytes, myelocytes and metamyelocytes) > 1% indicates that a LEFT SHIFT is Present. MCH (RBC) [Entitic mass] 23.5 pg 27.0-32.0 [facility] Nucleated RBC/100 WBC (Bld) [Ratio] 0 % 0-5 [facility] MCHC Auto (RBC) [Mass/Vol]Or dered By: Ottoniel Page on 11-22-2022 MCHC (RBC) [Mass/Vol] 29.3 g/dL 32-36 [facility] No Panel InformationOrdered By: Ottoniel Page on 11-22-2022 Estimated GFR (MDRD) Amer 109 mL/min >60 [facility] Comment on above: GFR Calc Estimated GFR (MDRD) Non-Af Amer 90 mL/min >60 [facility] Comment on above: Non- GFR Calc Thyroid Stimulating Hormone (TSH) 2.11 uIU/mL 0.358-3.74 [facility] Platelets bldOrdered By: Mckenzie Page on 11-22-2022 Platelets (Bld) [#/Vol] 297 10*3/uL 150-450 [facility] Serum or plasma albumin [place] urement (mass/volume)Ordered By: Ottoniel Page on 11-22-2022 Albumin [Mass/Vol] 3.3 g/dL 3.2-5.0 [facility] Serum or plasma albumin/glob ulin mass ratioOrdered By: Ottoniel Page on 11-22-2022 Albumin/Globulin [Mass ratio] 0.8 {ratio} 0.9-2.4 [facility] Serum or plasma calcium [place] urement (mass/volume)Ordered By: Ottoniel Page on 11-22-2022 Calcium [Mass/Vol] 9.1 mg/dL 8.5-10.1 [facility] Serum or plasma creatinine m easurement (mass/volume)Ordered By: Ottoniel Page on 11-22-2022 Creatinine [Mass/Vol] 0.69 mg/dL 0.55-1.02 [facility] Comment on above: The validity of the calculated GFR & GFRAA in patients over 70 years has not been determined. Clinical correlation is essential. Serum or plasma urea nitroge n measurement (mass/volume)Ordered By: Ottoniel Page on 11-22-2022 Urea nitrogen [Mass/Vol] 11 mg/dL 7-18 [facility] Thin prep Papanicolaou smear with manual screeningOrdered By: Ottoniel Page on 11-22-2022 Thin prep Papanicolaou smear with manual screening 36 U/L 15 [facility] Thin prep Papanicolaou smear with manual screening 5 5-15 [facility] Absolute lymphocyte countOrd ered By: Fiorella Vidal on 09-20-2022 Lymphocytes Auto (Unsp spec) [#/Vol] 1.49 10*3/uL 0.83-4.51 [facility] Basophil percentageOrdered B y: Fiorella Vidal on 09-20-2022 Basophils/100 WBC (Bld) 1.5 % 0-1 [facility] Chloride [Moles/Vol] 103 mmol/L 98-107 [facility] Eosinophils/100 WBC (Bld) 3.3 % 0-5 [facility] Glucose [Mass/Vol] 114 mg/dL 74-106 [facility] Comment on above: Fasting Glucose resu lt from 100 to 125 mg/dL suggests IMPAIRED HOMEOSTASIS per A.D.A. criteria. Neutrophils (Bld) [#/Vol] 3.3 10*3/uL 2.0-7.7 [facility] Neutrophils/100 WBC (Bld) 59.1 % 47-70 [facility] Potassium [Moles/Vol] 4.1 mmol/L 3.5-5.1 [facility] Sodium [Moles/Vol] 138 mmol/L 136-145 [facility] WBC (Bld) [#/Vol] 5.5 10*3/uL 4.4-11.0 [facility] Blood erythrocytes count (nu mber/volume)Ordered By: Fiorella Vidal on 09-20-2022 RBC (Bld) [#/Vol] 5.46 10*6/uL 4.2-5.4 [facility] Blood hemoglobin measurement (mass/volume)Ordered By: Fiorella Vidal on 09-20-2022 Hemoglobin (Bld) [Mass/Vol] 13.0 g/dL 12.0-15.0 [facility] Blood lymphocytes/100 leukoc ytesOrdered By: Fiorella Vidal on 09-20-2022 Lymphocytes/100 WBC (Bld) 27.0 % 19-41 [facility] Blood monocytes/100 leukocyt esOrdered By: Fiorella Vidal on 09-20-2022 Monocytes/100 WBC (Bld) 8.9 % 0-10 [facility] Blood platelet mean volumeOr dered By: Fiorella Vidal on 09-20-2022 Platelet mean volume (Bld) [Entitic vol] 11.4 fL 6.2-12.0 [facility] Determination of erythrocyte mean corpuscular volume (MCV)Ordered By: Fiorella Vidal on 09-20-2022 MCV (RBC) [Entitic vol] 79.5 fL 81-99 [facility] Hematocrit Auto (Bld) [Volum e fraction]Ordered By: Fiorella Vidal on 09-20-2022 Hematocrit (Bld) [Volume fraction] 43.4 % 37-47 [facility] Laboratory - Chemistry and C hemistry - challengeOrdered By: Fiorella Vidal on 09-20-2022 CO2 [Moles/Vol] 32.0 mmol/L 21.0-32.0 [facility] Urea nitrogen/Creatinine [Mass ratio] 16.4 mg/mg 10-20 [facility] Laboratory - Hematology and Cell countsOrdered By: Fiorella Vidal on 09-20-2022 Erythrocyte distribution width (RBC) [Entitic vol] 44.6 fL 35.1-43.9 [facility] Erythrocyte distribution width (RBC) [Ratio] 15.7 % 11.6-14.6 [facility] Immature granulocytes/100 WBC (Bld) 0.200 % 0.0-0.9 [facility] Comment on above: IG% - Immature Granu locytes (promyelocytes, myelocytes and metamyelocytes) > 1% indicates that a LEFT SHIFT is Present. MCH (RBC) [Entitic mass] 23.8 pg 27.0-32.0 [facility] Nucleated RBC/100 WBC (Bld) [Ratio] 0 % 0-5 [facility] MCHC Auto (RBC) [Mass/Vol]Or dered By: Fiorella Vidal on 09-20-2022 MCHC (RBC) [Mass/Vol] 30.0 g/dL 32-36 [facility] No Panel InformationOrdered By: Fiorella Vidal on 09-20-2022 Estimated GFR (MDRD) Amer 93 mL/min >60 [facility] Comment on above: GFR Calc Estimated GFR (MDRD) Non-Af Amer 77 mL/min >60 [facility] Comment on above: Non- GFR Calc Platelets bldOrdered By: Anat Vidal on 09-20-2022 Platelets (Bld) [#/Vol] 252 10*3/uL 150-450 [facility] Serum or plasma calcium [place] urement (mass/volume)Ordered By: Fiorella Vidal on 09-20-2022 Calcium [Mass/Vol] 9.0 mg/dL 8.5-10.1 [facility] Serum or plasma creatinine m easurement (mass/volume)Ordered By: Fiorella Vidal on 09-20-2022 Creatinine [Mass/Vol] 0.79 mg/dL 0.55-1.02 [facility] Comment on above: The validity of the calculated GFR & GFRAA in patients over 70 years has not been determined. Clinical correlation is essential. Serum or plasma urea nitroge n measurement (mass/volume)Ordered By: Fiorella Vidal on 09-20-2022 Urea nitrogen [Mass/Vol] 13 mg/dL 7-18 [facility] Thin prep Papanicolaou smear with manual screeningOrdered By: Fiorella Vidal on 09-20-2022 Thin prep Papanicolaou smear with manual screening 3 5-15 [facility] Absolute lymphocyte countOrd ered By: Dr. Vinson on 04-22-2022 Lymphocytes Auto (Unsp spec) [#/Vol] 2.15 10*3/uL 0.83-4.51 [facility] Basophil percentageOrdered B y: Dr. Vinson on 04-22-2022 Basophils/100 WBC (Bld) 0.8 % 0-1 [facility] Eosinophils/100 WBC (Bld) 0.9 % 0-5 [facility] Neutrophils (Bld) [#/Vol] 7.2 10*3/uL 2.0-7.7 [facility] Neutrophils/100 WBC (Bld) 69.6 % 47-70 [facility] WBC (Bld) [#/Vol] 10.3 10*3/uL 4.4-11.0 [facility] Blood erythrocytes count (nu mber/volume)Ordered By: Dr. Vinson on 04-22-2022 RBC (Bld) [#/Vol] 5.97 10*6/uL 4.2-5.4 [facility] Blood hemoglobin measurement (mass/volume)Ordered By: Dr. Vinson on 04-22-2022 Hemoglobin (Bld) [Mass/Vol] 14.8 g/dL 12.0-15.0 [facility] Blood lymphocytes/100 leukoc ytesOrdered By: Dr. Vinson on 04-22-2022 Lymphocytes/100 WBC (Bld) 20.9 % 19-41 [facility] Blood monocytes/100 leukocyt esOrdered By: Dr. Vinson on 04-22-2022 Monocytes/100 WBC (Bld) 7.5 % 0-10 [facility] Blood platelet mean volumeOr dered By: Dr. Vinson on 04-22-2022 Platelet mean volume (Bld) [Entitic vol] 10.9 fL 6.2-12.0 [facility] Determination of erythrocyte mean corpuscular volume (MCV)Ordered By: Dr. Vinson on 04-22-2022 MCV (RBC) [Entitic vol] 79.4 fL 81-99 [facility] Hematocrit Auto (Bld) [Volum e fraction]Ordered By: Dr. Vinson on 04-22-2022 Hematocrit (Bld) [Volume fraction] 47.4 % 37-47 [facility] Laboratory - Hematology and Cell countsOrdered By: Dr. Vinson on 04-22-2022 Erythrocyte distribution width (RBC) [Entitic vol] 40.9 fL 35.1-43.9 [facility] Erythrocyte distribution width (RBC) [Ratio] 14.2 % 11.6-14.6 [facility] Immature granulocytes/100 WBC (Bld) 0.300 % 0.0-0.9 [facility] Comment on above: IG% - Immature Granu locytes (promyelocytes, myelocytes and metamyelocytes) > 1% indicates that a LEFT SHIFT is Present. MCH (RBC) [Entitic mass] 24.8 pg 27.0-32.0 [facility] Nucleated RBC/100 WBC (Bld) [Ratio] 0 % 0-5 [facility] MCHC Auto (RBC) [Mass/Vol]Or dered By: Dr. Vinson on 04-22-2022 MCHC (RBC) [Mass/Vol] 31.2 g/dL 32-36 [facility] No Panel InformationOrdered By: Dr. Vinson on 04-22-2022 Follicle Stimulating Hormone 29.7 mIU/mL [facility] Comment on above: NORMAL REFERENCE RAN GES FEMALE FOLLICULAR 2.3 - 12.6 mIU/mL MID-CYCLE PEAK 5.2 - 17.5 mIU/mL LUTEAL 1.7 - 12.9 mIU/mL POST-MENOPAUSAL ON MHT 5.9 - 72.8 mIU/mL NOT ON MHT 12.7 - 132.2 mlU/mL MALE 0.7 - 10.8 mIU/mL Luteinizing Hormone 18.3 mIU/mL [facility] Comment on above: NORMAL REFERENCE RAN GES FEMALE FOLLICULAR 1.9 - 26.2 mIU/mL MID-CYCLE PEAK 22.8 - 76.1 mIU/mL LUTEAL 0.6 - 16.6 mIU/mL POST-MENOPAUSAL ON MHT 1.1 - 52.4 mIU/mL NOT ON MHT 8.6 - 61.8 mIU/mL MALE 1.2 - 10.6 mIU/mL Thyroid Stimulating Hormone (TSH) 3.24 uIU/mL 0.358-3.74 [facility] Platelets bldOrdered By: Dr. Vinson on 04-22-2022 Platelets (Bld) [#/Vol] 278 10*3/uL 150-450 [facility] Serum or plasma estradiol (E 2) measurement (mass/volume)Ordered By: Dr. Vinson on 04-22-2022 E2 [Mass/Vol] pg/mL [facility] Comment on above: NORMAL REFERENCE RAN GES FEMALE FOLLICULAR 21.4 - 164.8 pg/mL MID-CYCLE PEAK 49.9 - 367.2 pg/mL LUTEAL 40.2 - 259.0 pg/mL POST-MENOPAUSAL ON MHT <11.0 - 462.1 pg/mL NOT ON MHT <11.0 - 58.3 pg/mL MALE <11.0 - 52.5 pg/mL NOTE:[employer] HAS CONFIRMED THE DRUG FULVETRANT (FASLODEX) MAY CAUSE FALSELY ELEVATED ESTRADIOL RESULTS WHEN USING THIS TEST METHOD. IF PATIENT IS TAKING FULVESTRANT AN ALTERNATIVE METHOD SHOULD BE USED TO DETERMINE ESTRADIOL CONCENTRATION. Serum or plasma progesterone measurement (mass/volume)Ordered By: Dr. Vinson on 04-22-2022 Progesterone [Mass/Vol] ng/mL See Comment [facility] Comment on above: Progesterone Referen ce Table: UNITS Female: Follicular 0.15 - 1.40 ng/mL Luteal 3.34 - 25.56 ng/mL Mid-luteal 4.44 - 28.03 ng/mL Postmenopausal 0.0 - 0.73 ng/mL : 1st Trimester 11.22 - 90.00 ng/mL 2nd Trimester 25.55 - 89.40 ng/mL 3rd Trimester 48.40 -422.50 ng/mL Absolute lymphocyte countOrd ered By: Dr. Kat on 03-21-2022 Lymphocytes Auto (Unsp spec) [#/Vol] 1.85 10*3/uL 0.83-4.51 [facility] Basophil percentageOrdered B y: Dr. Kat on 03-21-2022 Basophils/100 WBC (Bld) 1.7 % 0-1 [facility] Eosinophils/100 WBC (Bld) 3.3 % 0-5 [facility] Neutrophils (Bld) [#/Vol] 3.3 10*3/uL 2.0-7.7 [facility] Neutrophils/100 WBC (Bld) 55.2 % 47-70 [facility] WBC (Bld) [#/Vol] 6.0 10*3/uL 4.4-11.0 [facility] Blood erythrocytes count (nu mber/volume)Ordered By: Dr. Kat on 03-21-2022 RBC (Bld) [#/Vol] 5.41 10*6/uL 4.2-5.4 [facility] Blood hemoglobin measurement (mass/volume)Ordered By: Dr. Kat on 03-21-2022 Hemoglobin (Bld) [Mass/Vol] 13.3 g/dL 12.0-15.0 [facility] Blood lymphocytes/100 leukoc ytesOrdered By: Dr. Kat on 03-21-2022 Lymphocytes/100 WBC (Bld) 30.9 % 19-41 [facility] Blood monocytes/100 leukocyt esOrdered By: Dr. Kat on 03-21-2022 Monocytes/100 WBC (Bld) 8.7 % 0-10 [facility] Blood platelet mean volumeOr dered By: Dr. Kat on 03-21-2022 Platelet mean volume (Bld) [Entitic vol] 11.9 fL 6.2-12.0 [facility] Determination of erythrocyte mean corpuscular volume (MCV)Ordered By: Dr. Kat on 03-21-2022 MCV (RBC) [Entitic vol] 81.3 fL 81-99 [facility] Hematocrit Auto (Bld) [Volum e fraction]Ordered By: Dr. Kat on 03-21-2022 Hematocrit (Bld) [Volume fraction] 44.0 % 37-47 [facility] Laboratory - Hematology and Cell countsOrdered By: Dr. Kat on 03-21-2022 Erythrocyte distribution width (RBC) [Entitic vol] 41.1 fL 35.1-43.9 [facility] Erythrocyte distribution width (RBC) [Ratio] 14.1 % 11.6-14.6 [facility] Immature granulocytes/100 WBC (Bld) 0.200 % 0.0-0.9 [facility] Comment on above: IG% - Immature Granu locytes (promyelocytes, myelocytes and metamyelocytes) > 1% indicates that a LEFT SHIFT is Present. MCH (RBC) [Entitic mass] 24.6 pg 27.0-32.0 [facility] Nucleated RBC/100 WBC (Bld) [Ratio] 0 % 0-5 [facility] MCHC Auto (RBC) [Mass/Vol]Or dered By: Dr. Kat on 03-21-2022 MCHC (RBC) [Mass/Vol] 30.2 g/dL 32-36 [facility] Platelets bldOrdered By: Dr. Kat on 03-21-2022 Platelets (Bld) [#/Vol] 250 10*3/uL 150-450 [facility] Absolute lymphocyte countOrd ered By: Makeda Hermosillo on 01-02-2022 Lymphocytes Auto (Unsp spec) [#/Vol] 1.81 10*3/uL 0.83-4.51 [facility] Basophil percentageOrdered B y: Makeda Hermosillo on 01-02-2022 Basophils/100 WBC (Bld) 1.0 % 0-1 [facility] Chloride [Moles/Vol] 99 mmol/L 98-107 [facility] Eosinophils/100 WBC (Bld) 2.7 % 0-5 [facility] Glucose [Mass/Vol] 165 mg/dL 74-106 [facility] Comment on above: Fasting Glucose resu lt greater than or equal to 126 mg/dL suggests DIABETES MELLITUS per A.D.A. criteria. Neutrophils (Bld) [#/Vol] 4.9 10*3/uL 2.0-7.7 [facility] Neutrophils/100 WBC (Bld) 64.7 % 47-70 [facility] Potassium [Moles/Vol] 3.3 mmol/L 3.5-5.1 [facility] Comment on above: Slight Hemolysis, Re sult may be falsely increased. Sodium [Moles/Vol] 137 mmol/L 136-145 [facility] WBC (Bld) [#/Vol] 7.6 10*3/uL 4.4-11.0 [facility] Blood erythrocytes count (nu mber/volume)Ordered By: Makeda Hermosillo on 01-02-2022 RBC (Bld) [#/Vol] 5.37 10*6/uL 4.2-5.4 [facility] Blood hemoglobin measurement (mass/volume)Ordered By: Makeda Hermosillo on 01-02-2022 Hemoglobin (Bld) [Mass/Vol] 14.1 g/dL 12.0-15.0 [facility] Blood lymphocytes/100 leukoc ytesOrdered By: Makeda Hermosillo on 01-02-2022 Lymphocytes/100 WBC (Bld) 23.7 % 19-41 [facility] Blood monocytes/100 leukocyt esOrdered By: Makeda Hermosillo on 01-02-2022 Monocytes/100 WBC (Bld) 7.5 % 0-10 [facility] Blood platelet mean volumeOr dered By: Makeda Hermosillo on 01-02-2022 Platelet mean volume (Bld) [Entitic vol] 11.2 fL 6.2-12.0 [facility] Determination of erythrocyte mean corpuscular volume (MCV)Ordered By: Makeda Hermosillo on 01-02-2022 MCV (RBC) [Entitic vol] 82.1 fL 81-99 [facility] Hematocrit Auto (Bld) [Volum e fraction]Ordered By: Makeda Hermosillo on 01-02-2022 Hematocrit (Bld) [Volume fraction] 44.1 % 37-47 [facility] Laboratory - Chemistry and C hemistry - challengeOrdered By: Makeda Hermosillo on 01-02-2022 CO2 [Moles/Vol] 34.0 mmol/L 21.0-32.0 [facility] Urea nitrogen/Creatinine [Mass ratio] 21.7 mg/mg 10-20 [facility] Laboratory - Hematology and Cell countsOrdered By: Makeda Hermosillo on 01-02-2022 Erythrocyte distribution width (RBC) [Entitic vol] 43.2 fL 35.1-43.9 [facility] Erythrocyte distribution width (RBC) [Ratio] 14.4 % 11.6-14.6 [facility] Immature granulocytes/100 WBC (Bld) 0.400 % 0.0-0.9 [facility] Comment on above: IG% - Immature Granu locytes (promyelocytes, myelocytes and metamyelocytes) > 1% indicates that a LEFT SHIFT is Present. MCH (RBC) [Entitic mass] 26.3 pg 27.0-32.0 [facility] Nucleated RBC/100 WBC (Bld) [Ratio] 0 % 0-5 [facility] MCHC Auto (RBC) [Mass/Vol]Or dered By: Makeda Hermosillo on 01-02-2022 MCHC (RBC) [Mass/Vol] 32.0 g/dL 32-36 [facility] No Panel InformationOrdered By: Makeda Hermosillo on 01-02-2022 Estimated GFR (MDRD) Amer 101 mL/min >60 [facility] Comment on above: GFR Calc Estimated GFR (MDRD) Non-Af Amer 83 mL/min >60 [facility] Comment on above: Non- GFR Calc Platelets bldOrdered By: Kim Hemrosillo on 01-02-2022 Platelets (Bld) [#/Vol] 255 10*3/uL 150-450 [facility] Serum or plasma calcium [place] urement (mass/volume)Ordered By: Makeda Hermosillo on 01-02-2022 Calcium [Mass/Vol] 9.1 mg/dL 8.5-10.1 [facility] Serum or plasma creatinine m easurement (mass/volume)Ordered By: Makeda Hermosillo on 01-02-2022 Creatinine [Mass/Vol] 0.74 mg/dL 0.55-1.02 [facility] Comment on above: The validity of the calculated GFR & GFRAA in patients over 70 years has not been determined. Clinical correlation is essential. Serum or plasma urea nitroge n measurement (mass/volume)Ordered By: Makeda Hermosillo on 01-02-2022 Urea nitrogen [Mass/Vol] 16 mg/dL 7-18 [facility] Thin prep Papanicolaou smear with manual screeningOrdered By: Makeda Hermosillo on 01-02-2022 Thin prep Papanicolaou smear with manual screening 4 5-15 [facility] Basophil percentageon 2021 Basophil percentage < 0.9 mg/dL 0.55-1.02 [facility] Work Phone: No Panel Informationon 09-14 Bedside Estimated GFR (eGFR) > 60.0000 mL/min >60 [facility] Work Phone: No Panel Informationon 08-15 Miscellaneous Test See comment [facility] Work Phone: Comment on above: Scanned image report available in EMR No Panel Informationon 08-08 Stool Calprotectin 199 ug/g 0-120 [facility] Work Phone: Comment on above: Concentration Interp retation Follow-Up<16 - 50 ug/g Normal None>50 -120 ug/g Borderline Re-evaluate in 4-6 weeks >120 ug/g Abnormal Repeat as clinically indicatedPerformed at: - [facility] [id number] Director: Medardo Garcia MD, Phone: [phone] Absolute lymphocyte counton 08-02-2021 Lymphocytes Auto (Unsp spec) [#/Vol] 1.50 10*3/uL 0.83-4.51 [facility] Work Phone: Basophil percentageon 2021 Basophils/100 WBC (Bld) 1.4 % 0-1 [facility] Work Phone: Eosinophils/100 WBC (Bld) 4.1 % 0-5 [facility] Work Phone: [phone] Neutrophils (Bld) [#/Vol] 3.5 10*3/uL 2.0-7.7 [facility] Work Phone: Neutrophils/100 WBC (Bld) 58.9 % 47-70 [facility] Work Phone: WBC (Bld) [#/Vol] 5.9 10*3/uL 4.4-11.0 [facility]: Blood erythrocytes count (nu mber/volume)on 08-02-2021 RBC (Bld) [#/Vol] 5.45 10*6/uL 4.2-5.4 [facility]: Blood hemoglobin measurement (mass/volume)on 08-02-2021 Hemoglobin (Bld) [Mass/Vol] 13.7 g/dL 12.0-15.0 [facility] Work Phone: [phone] Blood lymphocytes/100 leukoc yteson 08-02-2021 Lymphocytes/100 WBC (Bld) 25.5 % 19-41 [facility] Work Phone: [phone] Blood monocytes/100 leukocyt eson 08-02-2021 Monocytes/100 WBC (Bld) 9.8 % 0-10 [facility] Work Phone: Blood platelet mean volumeon 08-02-2021 Platelet mean volume (Bld) [Entitic vol] 12.6 fL 6.2-12.0 [facility] Work Phone: Determination of erythrocyte mean corpuscular volume (MCV)on 08-02-2021 MCV (RBC) [Entitic vol] 81.5 fL 81-99 [facility] Work Phone: Hematocrit Auto (Bld) [Volum e fraction]on 08-02-2021 Hematocrit (Bld) [Volume fraction] 44.4 % 37-47 [facility] Work Phone: Laboratory - Hematology and Cell countson 08-02-2021 Erythrocyte distribution width (RBC) [Entitic vol] 42.5 fL 35.1-43.9 [facility] Work Phone: Erythrocyte distribution width (RBC) [Ratio] 14.5 % 11.6-14.6 [facility] Work Phone: Immature granulocytes/100 WBC (Bld) 0.300 % 0.0-0.9 [facility] Work Phone: Comment on above: IG% - Immature Granu locytes (promyelocytes, myelocytes and metamyelocytes) > 1% indicates that a LEFT SHIFT is Present. MCH (RBC) [Entitic mass] 25.1 pg 27.0-32.0 [facility] Work Phone: Nucleated RBC/100 WBC (Bld) [Ratio] 0 % 0-5 [facility] Work Phone: MCHC Auto (RBC) [Mass/Vol]on 08-02-2021 MCHC (RBC) [Mass/Vol] 30.9 g/dL 32-36 [facility] Work Phone: Platelets bldon 08-02-2021 Platelets (Bld) [#/Vol] 232 10*3/uL 150-450 [facility] Work Phone: Serum or plasma C reactive p rotein measurement (mass/volume)on 08-02-2021 CRP [Mass/Vol] 11.90 mg/L 0.0-3.0 [facility] Work Phone: Comment on above: C-Reactive Protein ( CRP) provides useful information for thediagnosis, therapy and monitoring of inflammatory processesand associated diseases. For the evaluation of Relative Riskfor Cardiovascular Disease, a High Sensitivity CRP (HSCRP)should be ordered. Final Surgical Pathology Rep riley 06-13-2021 Final Surgical Pathology Report . Pathology Reports Accession: Collected Date/Time: Received Date/Time: Pathologist: [id number] 06/11/2021 12:41 EDT 06/11/2021 14:28 EDT TANIYA HLOMAN MD Final Surgical Pathology Report DIAGNOSIS: A) UTERUS, CERVIX - SQUAMOUS METAPLASIA AND NABOTHIAN CYST FORMATION. UTERUS, ENDOMETRIUM - SIMPLE HYPERPLASIA WITHOUT ATYPIA. UTERUS, MYOMETRIUM - NO SIGNIFICANT PATHOLOGY. OVARIES AND FALLOPIAN TUBES - NO SIGNIFICANT PATHOLOGY. B) RETROPERITONEAL MASS - LEIOMYOMA. CLINICAL INFORMATION: Procedure: EXAM UNDER ANESTHESIA, TOTAL LAPAROSCOPIC HYSTERECTOMY, BILATERAL SALPINGO-OOPHORECTO MY, CYSTOSCOPY Preoperative diagnosis: PELVIC MASS, POSTMENOPAUSAL BLEEDING Postoperative diagnosis: PELVIC MASS, POSTMENOPAUSAL BLEEDING SPECIMEN: A UTERUS, CERVIX, BILATERAL FALLOPIAN TUBES AND OVARIES B LEFT RETROPERITONEAL MASS GROSS DESCRIPTION: A. Received in formalin, labeled with the patients name, Case #[id number], and uterus, cervix, bilat eral fallopian tubes and ovaries Weight/dimensions-124 g and measures 9.5 cm (fundus to cervix), 3.5 cm (cornu to cornu), 3 cm (anterior to posterior). Serosa-godwin predominantly smooth Cervix/endocervix-3 cm in diameter and 4.5 cm in length Endometrium-triangula r-shaped endometrial cavity measuring 2 x 3 cm. Endometrium lining measur ing 0.1 cm Fioirwhkmi-efi-nyrn measuring up to 1.8 cm with no identified masses or nodules Right fallopian tube: 3.5 x 0.4 cm Right ovary: 3 x 2.1 x 1.8 cm, cut surfaces appear unremarkable Left fallopian tube: 6 x 0.5 cm Left ovary: 2.5 x 2.2 x 1.5 cm, cut surfaces appear unremarkable RS-6 Cassette Summary: A1-Cervix A2-Anterior endomyometrium A3-Posterior endomyometrium A4-Right fallopian tube A5 -Right ovary A6-Left fallopian tube and left ovary B. Received in formalin labeled left retroperitoneal mass is a 103 g white rolled nodule augusto suring 6.5 x 6 x 4.5 cm. Cut surfaces have a unremarkable white whorled appearance with no areas of hemorrhage or necrosis. RS -3 Dictated by KUSUM CONKLIN MICROSCOPIC DESCRIPTION: Slides reviewed. Pathology Reports Accession: Collected Date/Time: Received Date/Time: Pathologist: [id number] 06/11/2021 12:41 EDT 06/11/2021 14:28 EDT TANIYA HOLMAN MD Electronically Signed by Pathology Report verified by [facility] Electronically signed by TANIYA HOLMAN Sign out Date: 06/13/2021 14:26 Performing Lab: [facility], [address] [place] [address] States Normal [facility] ([place]) ABO/Rh (Gel)on 06-11-2021 ABO/Rh Interp Positive Invalid Interpretation Code [facility] ([place] Comment on above: Performed By: #### A ELKIN ABSGEL #### [address] [address] ABS (Gel)on 06-11-2021 ABSC Interp (Gel) Negative Normal [facility] ([place]) Comment on above: Performed By: #### A AAKASH GRANGER #### [address] [id number] LABORATORYOrdered By: Mitch Flores on 06-11-2021 ABO and Rh group Nom (Bld) Blood group A Rh(D) positive Invalid Interpretation Code AH BB Auto SS Blood group antibody screen Ql NEG (06/11/21 8:30 AM) Invalid Interpretation Code AH BB Auto SS XR CHEST 2 VIEWSon 2 XR CHEST 2 VIEWS ORIGINAL EXAMINATION: TWO XRAY VIEWS OF THE CHEST 05/28/2021 9:20 am COMPARISON: None. HISTORY: ORDERING SYSTEM PROVIDED HISTORY: Reason for Exam: cough FINDINGS: The cardiomediastinal silhouette demonstrates a normal appearance. No consolidative opacity is identified. A trace left pleural effusion is noted on lateral view. There is no pneumothorax. No free air seen beneath the level of the diaphragm. The bony thorax appears acutely intact with degenerative changes of the thoracic spine noted. IMPRESSION: Trace left pleural effusion. Interpreted by: Faisal Nunez MD Preliminary Report By: Faisal Nunez MD Electronically signed By Faisal Nunez MD Dictated Date: 05/29/2021 2:13:44 PM Prelim Date: 05/29/2021 2:15:07 PM Sign Date: 05/29/2021 2:15:07 PM Ordering Provider: BREANNE RICHARDSON [facility] ([place]) .Auto Diffon 05-28-2021 Basophil, Absolute 0.10 10 3/mcL Normal 0.00-0.27 [facility] ([place]) Comment on above: Performed By: #### A AAKASH GRANGER, ANEU, CBC, GFR, ADIFF, CMP #### [address] [address] Basophils/100 WBC (Bld) 1.5 % Normal 0.0-2.5 [facility] ([place]) Comment on above: Performed By: #### A AAKASH GRANGER, ANEU, CBC, GFR, ADIFF, CMP #### [address] [address] Eosinophil, Absolute 0.20 10 3/mcL Normal 0.00-0.65 A [facility] ([place]) Comment on above: Performed By: #### A BOGEL, ABSGEL, ANEU, CBC, GFR, ADIFF, CMP #### [address] [address] Eosinophils/100 WBC (Bld) 3.4 % Normal 0.0-6.0 [facility] ([place]) Comment on above: Performed By: #### A BOGEL, ABSGEL, ANEU, CBC, GFR, ADIFF, CMP #### [address] [address] Lymphocyte, Absolute 1.30 10 3/mcL Normal 0.90-4.32 A [facility] ([place]) Comment on above: Performed By: #### A BOGEL, ABSGEL, ANEU, CBC, GFR, ADIFF, CMP #### [address] [address] Lymphocytes/100 WBC (Bld) 20.6 % Normal 20.0-40.0 [facility] ([place]) Comment on above: Performed By: #### A ELKIN, ABSGEL, ANEU, CBC, GFR, ADIFF, CMP #### [address] [address] Monocyte, Absolute 0.60 10 3/mcL Normal 0.09-1.40 [facility] ([place]) Comment on above: Performed By: #### A BOGLEONIE, ABSGEL, ANEU, CBC, GFR, ADIFF, CMP #### [address] [address] Monocytes/100 WBC (Bld) 8.8 % Normal 2.0-13.0 A [facility] ([place]) Comment on above: Performed By: #### A BOGEL, ABSGEL, ANEU, CBC, GFR, ADIFF, CMP #### [address] [address] Neutrophils/100 WBC (Bld) 65.7 % Normal 50.0-75.0 [facility] ([place]) Comment on above: Performed By: #### A BOGEL, ABSGEL, ANEU, CBC, GFR, ADIFF, CMP #### [address] [address] .GFRon 05-28-2021 GFR >60 Normal [facility] ([place]) Comment on above: Result Comment: GFR Population mean for , Non- Americans Ages 20-29 = 116 mL/min/1.73 sq.m. Ages 30-39 = 107 mL/min/1.73 sq.m. Ages 40-49 = 99 mL/min/1.73 sq.m. Ages 50-59 = 93 mL/min/1.73 sq.m. Ages 60-69 = 85 mL/min/1.73 sq.m. Ages 70+ = 75 mL/min/1.73 sq.m. Chronic Kidney Disease: Less than 60 mL/min/1.73 square meters End Stage Renal Disease: Less than 15 mL/min/1.73 square meters Performed By: #### A AAKASH GRANGER, ANEU, CBC, GFR, ADIFF, CMP #### [address] [address] GFR Non- >60 Normal [facility] ([place]) Comment on above: Result Comment: GFR Population mean for , Non- Americans Ages 20-29 = 116 mL/min/1.73 sq.m. Ages 30-39 = 107 mL/min/1.73 sq.m. Ages 40-49 = 99 mL/min/1.73 sq.m. Ages 50-59 = 93 mL/min/1.73 sq.m. Ages 60-69 = 85 mL/min/1.73 sq.m. Ages 70+ = 75 mL/min/1.73 sq.m. Chronic Kidney Disease: Less than 60 mL/min/1.73 square meters End Stage Renal Disease: Less than 15 mL/min/1.73 square meters Performed By: #### A AAKASH GRANGER, ANEU, CBC, GFR, ADIFF, CMP #### [address] [address] .NEUABSon 05-28-2021 Neutrophil, Absolute 4.20 10 3/mcL Normal 2.25-8.10 [facility] ([place]) Comment on above: Performed By: #### A BOGEL, ABSGEL, ANEU, CBC, GFR, ADIFF, CMP #### [address] [address] ABO/Rh (Gel)on 05-28-2021 ABO/Rh Interp Positive Invalid Interpretation Code [facility] ([place]) Comment on above: Performed By: #### A ELKIN, ABSGEL, ANEU, CBC, GFR, ADIFF, CMP #### [address] [address] ABS (Gel)on 05-28-2021 ABSC Interp (Gel) Negative Normal [facility] ([place]) Comment on above: Performed By: #### A ELKIN, ABSGEL, ANEU, CBC, GFR, ADIFF, CMP #### [address] [address] CBCon 05-28-2021 Erythrocyte distribution width (RBC) [Ratio] 15.9 % High 11.5-15.5 [facility] ([place]) Comment on above: Performed By: #### A ELKIN, ABSGEL, ANEU, CBC, GFR, ADIFF, CMP #### [address] [address] Hematocrit (Bld) [Volume fraction] 44.5 % Normal 34.0-46.0 [facility] ([place]) Comment on above: Performed By: #### A ELKIN, ABSGEL, ANEU, CBC, GFR, ADIFF, CMP #### [address] [address] Hgb 14.5 G/dL Normal 12.0-16.0 [facility] ([place]) Comment on above: Performed By: #### A ELKIN, ABSGEL, ANEU, CBC, GFR, ADIFF, CMP #### [address] [address] MCH (RBC) [Entitic mass] 25.8 pg Low 27.0-33.0 [facility] ([place]) Comment on above: Performed By: #### A BOGEL, ABSGEL, ANEU, CBC, GFR, ADIFF, CMP #### [place] [id number] MCHC 32.5 G/dL Normal 32.0-36.0 [facility] ([place]) Comment on above: Performed By: #### A AAKASH GRANGER, ANEU, CBC, GFR, ADIFF, CMP #### [place] [address] MCV (RBC) [Entitic vol] 79.2 fL Low 80.0-99.0 A [facility] ([place]) Comment on above: Performed By: #### A ELKIN ABSGEL, ANEU, CBC, GFR, ADIFF, CMP #### [place] [address] Platelet 228 10 3/mcL Normal 150-450 [facility] ([place]) Comment on above: Performed By: #### A ELKIN ABSGEL, ANEU, CBC, GFR, ADIFF, CMP #### [place] [address] Platelet mean volume (Bld) [Entitic vol] 9.7 fL Normal 6.6-10.5 [facility] ([place]) Comment on above: Performed By: #### A ELKIN ABSGEL, ANEU, CBC, GFR, ADIFF, CMP #### [place] [address] RBC 5.62 10 6/mcL High 4.10-5.30 [facility] ([place]) Comment on above: Performed By: #### A ELKIN ABSGEL, ANEU, CBC, GFR, ADIFF, CMP #### [place] [address] WBC 6.50 10 3/mcL Normal 4.50-10.80 [facility] ([place]) Comment on above: Performed By: #### A ELKIN ABSGEL, ANEU, CBC, GFR, ADIFF, CMP #### [place] [address] CMPon 05-28-2021 Albumin Level 3.4 G/dL Normal 3.2-4.8 [facility] ([place]) Comment on above: Performed By: #### A ELKIN ABSGEL, ANEU, CBC, GFR, ADIFF, CMP #### [facility] [address] [place], [place] [address] Albumin/Globulin [Mass ratio] 1.0 {ratio} Normal 0.9-1.6 [facility] ([place]) Comment on above: Performed By: #### A AAKASH GRANGER, ANEU, CBC, GFR, ADIFF, CMP #### [address] [address] ALP [Catalytic activity/Vol] 59 U/L Normal 38-126 [facility] ([place]) Comment on above: Performed By: #### A AAKASH GRANGER, ANEU, CBC, GFR, ADIFF, CMP #### [address] [address] ALT [Catalytic activity/Vol] 26 U/L Normal 10-49 [facility] ([place]) Comment on above: Performed By: #### A AAKASH GRANGER, ANEU, CBC, GFR, ADIFF, CMP #### [address] [address] AST [Catalytic activity/Vol] 24 U/L Normal 8-34 [facility] ([place]) Comment on above: Performed By: #### A AAKASH GRANGER, ANEU, CBC, GFR, ADIFF, CMP #### [address] [address] Bili Total 0.50 mg/dL Normal 0.20-1.20 [facility] ([place]) Comment on above: Result Comment: Use of this assay is not recommended for patients undergoing treatment with eltrombopag due to the potential for falsely elevated results. Performed By: #### A AAKASH GRANGER, ANEU, CBC, GFR, ADIFF, CMP #### [address] [address] BUN/Creatinine Ratio 19.0 ratio Normal 10.0-22.0 [facility] ([place]) Comment on above: Performed By: #### A AAKASH GRANGER, ANEU, CBC, GFR, ADIFF, CMP #### [address] [address] Calcium [Mass/Vol] 10.2 mg/dL Normal 8.7-10.4 [facility] ([place]) Comment on above: Result Comment: No te - New Reference Range in effect 19 Performed By: #### A ELKIN ABSGEL, ANEU, CBC, GFR, ADIFF, CMP #### [address] [address] Chloride [Moles/Vol] 101 mmol/L Normal 98-110 [facility] ([place]) Comment on above: Performed By: #### A BOGEL ABSGEL, ANEU, CBC, GFR, ADIFF, CMP #### [address] [address] CO2 [Moles/Vol] 36 mmol/L High 22-32 [facility] ([place]) Comment on above: Performed By: #### A ELKIN ABSGEL, ANEU, CBC, GFR, ADIFF, CMP #### [address] [address] Creatinine [Mass/Vol] 0.84 mg/dL Normal 0.50-1.20 [facility] ([place]) Comment on above: Performed By: #### A BOGEL ABSGEL, ANEU, CBC, GFR, ADIFF, CMP #### [address] [address] Electrolyte Balance 5.0 mEq/L Normal 4.0-15.0 [facility] ([place]) Comment on above: Performed By: #### A BOGLEONIE, ABSGEL, ANEU, CBC, GFR, ADIFF, CMP #### [address] [address] Globulin 3.3 G/dL Normal 1.5-3.8 [facility] ([place]) Comment on above: Performed By: #### A BOGEL, ABSGEL, ANEU, CBC, GFR, ADIFF, CMP #### [address] [address] Glucose [Mass/Vol] 105 mg/dL Normal 82-115 [facility] ([place]) Comment on above: Performed By: #### A BOGEL, ABSGEL, ANEU, CBC, GFR, ADIFF, CMP #### [place] [id number] Potassium [Moles/Vol] 4.3 mmol/L Normal 3.5-5.0 [facility] ([place]) Comment on above: Result Comment: Spec imen slightly hemolyzed. Performed By: #### A AAKASH GRANGER, RICHARD, CBC, GFR, ADIFF, CMP #### [address] [address] Sodium [Moles/Vol] 142 mmol/L Normal 136-145 [facility] ([place]) Comment on above: Performed By: #### A AAKASH GRNAGER, RICHARD, CBC, GFR, ADIFF, CMP #### [address] [address] Total Protein 6.7 G/dL Normal 5.7-8.2 [facility] ([place]) Comment on above: Result Comment: No te - New Reference Range in effect 19 Performed By: #### A AAKASH GRANGER, RICHARD, CBC, GFR, ADIFF, CMP #### [address] [address] Urea nitrogen [Mass/Vol] 16.0 mg/dL Normal 8.0-22.0 [facility] ([place]) Comment on above: Performed By: #### A AAKASH GRANGER, RICHARD, CBC, GFR, ADIFF, CMP #### [address] [address] LABORATORYOrdered By: Mitch Flores on 05-28-2021 ABO and Rh group Nom (Bld) Blood group A Rh(D) positive Invalid Interpretation Code BB Auto SS Blood group antibody screen Ql NEG (05/28/21 7:34 AM) Invalid Interpretation Code AH BB Auto SS LABORATORYOrdered By: SYSTEM SYSTEM on 05-28-2021 Albumin BCP dye [Mass/Vol] 3.4 G/dL Invalid Interpretation Code 3.2 - 4.8 G/dL ADM SS Albumin/Globulin [Mass ratio] 1.0 {ratio} Invalid Interpretation Code 0.9 - 1.6 ratio ADM SS ALP [Catalytic activity/Vol] 59 U/L Invalid Interpretation Code 38 - 126 U/L ADM SS ALT No additional P-5'-P [Catalytic activity/Vol] 26 U/L Invalid Interpretation Code 10 - 49 U/L AH ADM SS AST [Catalytic activity/Vol] 24 U/L Invalid Interpretation Code 8 - 34 U/L AH ADM SS Basophils (Bld) [#/Vol] 0.10 103/mcL Invalid Interpretation Code 0.00 - 0.27 10^3/mcL AH Remisol SS Basophils/100 WBC (Bld) 1.5 % Invalid Interpretation Code 0.0 - 2.5 % AH Remisol SS Bilirubin [Mass/Vol] 0.50 mg/dL Invalid Interpretation Code 0.20 - 1.20 mg/dL AH ADM SS Calcium [Mass/Vol] 10.2 mg/dL Invalid Interpretation Code 8.7 - 10.4 mg/dL AH ADM SS Chloride [Moles/Vol] 101 mmol/L Invalid Interpretation Code 98 - 110 mEq/L AH ADM SS CO2 [Moles/Vol] 36 mmol/L Invalid Interpretation Code 22 - 32 mEq/L AH ADM SS Creatinine [Mass/Vol] 0.84 mg/dL Invalid Interpretation Code 0.50 - 1.20 mg/dL AH ADM SS Electrolyte Balance 5.0 mEq/L Invalid Interpretation Code 4.0 - 15.0 mEq/L ADM SS Eosinophils (Bld) [#/Vol] 0.20 103/mcL Invalid Interpretation Code 0.00 - 0.65 10^3/mcL AH Remisol SS Eosinophils/100 WBC (Bld) 3.4 % Invalid Interpretation Code 0.0 - 6.0 % AH Remisol SS Erythrocyte distribution width (RBC) [Ratio] 15.9 % Invalid Interpretation Code 11.5 - 15.5 % AH Remisol SS GFR/1.73 sq M.predicted among blacks MDRD (S/P/Bld) [Vol rate/Area] ml/min/1.73sqm Invalid Interpretation Code Chemistry S GFR/1.73 sq M.predicted among non-blacks MDRD (S/P/Bld) [Vol rate/Area] ml/min/1.73sqm Invalid Interpretation Code Chemistry S Globulin 3.3 G/dL Invalid Interpretation Code 1.5 - 3.8 G/dL ADM SS Glucose [Mass/Vol] 105 mg/dL Invalid Interpretation Code 82 - 115 mg/dL AH ADM SS Hematocrit (Bld) [Volume fraction] 44.5 % Invalid Interpretation Code 34.0 - 46.0 % AH Remisol SS Hemoglobin (Bld) [Mass/Vol] 14.5 G/dL Invalid Interpretation Code 12.0 - 16.0 G/dL AH Remisol SS Lymphocytes (Bld) [#/Vol] 1.30 103/mcL Invalid Interpretation Code 0.90 - 4.32 10^3/mcL AH Remisol SS Lymphocytes/100 WBC (Bld) 20.6 % Invalid Interpretation Code 20.0 - 40.0 % AH Remisol SS MCH (RBC) [Entitic mass] 25.8 pg Invalid Interpretation Code 27.0 - 33.0 pg AH Remisol SS MCHC (RBC) [Mass/Vol] 32.5 G/dL Invalid Interpretation Code 32.0 - 36.0 G/dL AH Remisol SS MCV (RBC) [Entitic vol] 79.2 fL Invalid Interpretation Code 80.0 - 99.0 fL AH Remisol SS Monocytes (Bld) [#/Vol] 0.60 103/mcL Invalid Interpretation Code 0.09 - 1.40 10^3/mcL AH Remisol SS Monocytes/100 WBC (Bld) 8.8 % Invalid Interpretation Code 2.0 - 13.0 % AH Remisol SS Neutrophils (Bld) [#/Vol] 4.20 103/mcL Invalid Interpretation Code 2.25 - 8.10 10^3/mcL AH Remisol SS Neutrophils/100 WBC (Bld) 65.7 % Invalid Interpretation Code 50.0 - 75.0 % AH Remisol SS Platelet mean volume (Bld) [Entitic vol] 9.7 fL Invalid Interpretation Code 6.6 - 10.5 fL AH Remisol SS Platelets (Bld) [#/Vol] 228 103/mcL Invalid Interpretation Code 150 - 450 10^3/mcL AH Remisol SS Potassium [Moles/Vol] 4.3 mmol/L Invalid Interpretation Code 3.5 - 5.0 mEq/L AH ADM SS Comment on above: Result Comment: Spec imen slightly hemolyzed. Protein [Mass/Vol] 6.7 G/dL Invalid Interpretation Code 5.7 - 8.2 G/dL AH ADM SS RBC (Bld) [#/Vol] 5.62 106/mcL Invalid Interpretation Code 4.10 - 5.30 10^6/mcL AH Remisol SS Sodium [Moles/Vol] 142 mmol/L Invalid Interpretation Code 136 - 145 mEq/L AH ADM SS Urea nitrogen [Mass/Vol] 16.0 mg/dL Invalid Interpretation Code 8.0 - 22.0 mg/dL AH ADM SS Urea nitrogen/Creatinine [Mass ratio] 19.0 ratio Invalid Interpretation Code 10.0 - 22.0 ratio AH ADM SS WBC (Bld) [#/Vol] 6.50 103/mcL Invalid Interpretation Code 4.50 - 10.80 10^3/mcL AH Remisol SS CNOVSPon 09-21-2018 CNOVSP Visit (SP) Office ([facility]) ABI REYNA ([id number]) 1955 F Date Time Provider Department 09/21/18 8:50 AM TIMI PARSONS During your visit today, we recorded the following information about you: Temperature Pulse Blood pressure Weight 97.2 degrees 68/minute 135/64 110.9 kg Timi Parsons MD 09/22/2018 7:20 AM Signed PATIENT NAME: Abi Reyna. CLINIC NO: [id number]. ATTENDING PHYSICIAN: Timi Parsons MD. DATE OF SERVICE: 09/21/2018. ? DIAGNOSIS: Iron deficiency anemia, history of Crohn's disease and chronic anticoagulation on Eliquis ? HPI: This is a 62-year-old female with history of Crohn's disease and chronic arthropathy, history of atrial supraventricular tachycardia on ELIQUIS. She presented to Dr. Kat earlier this year with increased symptoms of fatigue and iron deficiency anemia for about 2 months. She denies any rectal bleeding or melena. However, she has some epigastric discomfort along with nausea for about a month, and she was instructed to increase protonic to twice daily. She presented with symptom of pallor and dyspnea with exertion despite taking iron supplement, ferrous sulfate 325mg twice daily. Patient has no history of celiac disease, however, her granddaughter has celiac disease. Her Crohn's disease has been stable since she started Imuran, and Budesonide. ? Patient denies frequent headaches or increased lethargy. She has no chest pain or palpitation today. She denies weakness, lightheadedness, or dizziness. She has increased fatigue, but no change in weight appetite. She denies any jaundice or increased diarrhea. She currently has no epigastric discomfort or reflux symptoms. No recent falls or restless leg symptom. Interim history: Patient is doing well on anticoagulation treatment and iron. She is not anemic but still has mild iron deficiency. Her Crohn's disease is controlled with Imuran. She denies any rectal bleeding or melena. She had a colonoscopy last year, and will have a follow-up colonoscopy in 5 year because of Crohn's disease and increased risk for colon cancer. All medications AND allergies updated and reviewed by me. REVIEW OF SYSTEMS: ? CONSTITUTIONAL: No fevers, chills, nightsweats, unintended weight loss + fatigue HEENT: Denies frequent or severe heaches, nasal congestion/sinus symptoms, problematic allergy problems. EYES: No diplopia or blurry vision. CARDIOVASCULAR: No chest pain, + dyspnea with exertion, palpitations, orthopnea, PND, ankle edema. PULM: No dyspnea, unexplained cough. GI: No dysphagia/odynophagia , problematic reflux, constipation, diarrhea, changes in stool habits, hematochezia, melena. : No new urinary complaints, including dysuria, gross hematuria or pyuria. NEURO: No new balance problems, peripheral weakness/paresthesias or numbness of concern. MUSC-SKEL: No new joint pain, swelling, or erythema. PSY: No concerns regarding depression, anxiety or panic. INTEGUMENTARY: No new skin changes (rash, new or changing mole, new growth) ? PHYSICAL EXAMINATION: 63-year-old well-nourished well-developed female in no acute distress. Performance status 90% BP 135/64 Pulse 68 Temp (Src) 97.2 (Temporal) Wt 244 lb 8 oz (110.9kg) LMP 12/27/2005 HEENT: Head is normocephalic, atraumatic. Sclerae white, conjunctivae pink. PEERL. EOMs are intact. Oropharynx is benign. LYMPHATICS: There is no palpable adenopathy in the neck, supraclavicular region, axillae, or groin. LUNGS: Lungs are clear to percussion and auscultation. HEART: Heart is normal without murmurs, gallops, or rubs. ABDOMEN: Soft and nontender without organomegaly. No masses can be palpated. EXTREMITIES: Are without edema. NEUROLOGIC: Exam is physiologic ? LABORATORY DATA: Component Latest Ref Rng AND Units 09/17/2018 WBC, Robin 3.70 - 11.00 k/uL 4.38 RBC, Elkins 3.90 - 5.20 m/uL 5.24 (H) Hemoglobin, Robin 11.5 - 15.5 g/dL 14.3 Hematocrit, Elkins 36.0 - 46.0 % 44.5 MCV, Elkins 80.0 - 100.0 fL 84.9 MCH, Elkins 26.0 - 34.0 pg 27.3 MCHC, Robin 30.5 - 36.0 g/dL 32.1 RDW, Robin 11.5 - 15.0 % 14.1 Platelet Cnt, Elkins 150 - 400 k/uL 213 MPV, Robin 9.0 - 12.7 fL 11.6 Absol Gran Count 1.45 - 7.50 k/uL 3.01 Component Latest Ref Rng AND Units 09/17/2018 Iron 41 - 186 ug/dL 39 (L) TIBC 232 - 386 ug/dL 354 Transferrin Saturation 15 - 57 % 11 (L) Ferritin 14.7 - 205.1 ng/mL 41.4 ? ASSESSMENT: 63 -year-old with iron malabsorption and Crohn's disease. She has been taking oral iron supplement and her anemia has resolved. She is also on ELIQUIS for atrial fibrillation. She is clinically asymptomatic. ? PLAN: - Continue iron twice daily and Eliquis and follow-up with PCP. - She also need to follow with GI, Dr. Kat for colonoscopy in 3-5 years. - No further follow-up here as needed. Timi Parsons MD Cc: Dr. Ottoniel Page Referring Provider: TIMI PARSONS [[id number]] Allergies As of Date: 09/21/2018 Noted Allergy Reaction CORTISONE 03/10/2016 1 - Mental Status Change Comments: Patient feels Paranoid DARVOCET-N 100 (PROPOXYPHENE N-AC*07/12/2005 8 - GI Upset DARVON (PROPOXYPHENE HCL) 07/11/2005 PREDNISONE 03/10/2016 1 - Mental Status Change Comments: Patient feels Paranoid VICODIN (HYDROCODONE-ACETAMIN OPHE*07/11/2005 Comments: paranoid and had fireworks in her eyes Date Reviewed: 09/21/2018 Reviewed by: Aliya Vasquez - Fully Assessed Reason for Visit: Established Patient [175] Primary Visit Diagnosis:Arthropathy in Crohn's disease (HCC) [M07.60, K50.90] Other Visit Diagnosis:Iron malabsorption [K90.9] Level of Service: EST PATIENT VISIT LEVEL 3 [93684] Disposition: Return if symptoms worsen or fail to improve. Follow-up and Disposition History Recorded Prescriptions as of 09/21/2018 Sig: PANTOPRAZOLE 40 MG TABLET,DEL* Take 40 mg by mouth once lorenzo* APIXABAN 5 MG TABLET Take by mouth twice daily. AZATHIOPRINE 50 MG TABLET 3 tablets once daily. ROPINIROLE 0.5 MG TABLET 0.5 mg. 1 tablet at lunch, 2 * USTEKINUMAB 90 MG/ML SUBCUTAN* Inject 90 mg subcutaneously e* ESTRADIOL 0.01% (0.1 MG/GRAM)* Use 1 g vaginally twice a wee* METHENAMINE HIPPURATE 1 GRAM * Take 1 g by mouth daily at be* CIPROFLOXACIN 500 MG TABLET Take one tablet by mouth twic* PROMETHAZINE 25 MG TABLET Take 25 mg by mouth every 6 h* OXYCODONE-ACETAMINOPH EN 5 MG-* Take 1-2 tablets by mouth keshav* FERROUS SULFATE 325 MG (65 MG* Take 325 mg by mouth twice da* SOTALOL 80 MG TABLET Take 1 tablet by mouth twice * Medication notes this encounter GABAPENTIN 300 MG CAPSULE >> Aliya Vasquez MA 09/21/2018 8:33 AM >> ALIYA VASQUEZ MA FriSep 21, 2018 8:33 AM Taking one capsule three times daily. CHOLECALCIFEROL (VITAMIN D3) 2,000 UNIT CAPSULE >> Aliya Vasquez MA 09/21/2018 8:34 AM >> ALIYA VASQUEZ MA FriSep 21, 2018 8:34 AM No longer taking. MAGNESIUM 250 MG TABLET >> Aliya Vasquez MA 09/21/2018 8:34 AM >> ALIYA VASQUEZ MA FriSep 21, 2018 8:34 AM No longer taking. ASPIRIN 81 MG CHEWABLE TABLET >> Aliya Vasquez MA 09/21/2018 8:34 AM >> KADEN WHITEALIYA Mon Sep 21, 2018 8:34 AM No longer taking. Problem List As Of Date 09/21/2018 Noted Resolved ESOPHAGEAL REFLUX [K21.9] More... 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 REGIONAL ENTERITIS NOS [K50.90] More... 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 Author Type: Physician Type: Progress Notes Filed: 09/22/2018 7:20 AM Note Text: PATIENT NAME: Abi Reyna. CLINIC NO: [id number]. ATTENDING PHYSICIAN: Timi Parsons MD. DATE OF SERVICE: 09/21/2018. ? DIAGNOSIS: Iron deficiency anemia, history of Crohn's disease and chronic anticoagulation on Eliquis ? HPI: This is a 62-year-old female with history of Crohn's disease and chronic arthropathy, history of atrial supraventricular tachycardia on ELIQUIS. She presented to Dr. Kat earlier this year with increased symptoms of fatigue and iron deficiency anemia for about 2 months. She denies any rectal bleeding or melena. However, she has some epigastric discomfort along with nausea for about a month, and she was instructed to increase protonic to twice daily. She presented with symptom of pallor and dyspnea with exertion despite taking iron supplement, ferrous sulfate 325mg twice daily. Patient has no history of celiac disease, however, her granddaughter has celiac disease. Her Crohn's disease has been stable since she started Imuran, and Budesonide. ? Patient denies frequent headaches or increased lethargy. She has no chest pain or palpitation today. She denies weakness, lightheadedness, or dizziness. She has increased fatigue, but no change in weight appetite. She denies any jaundice or increased diarrhea. She currently has no epigastric discomfort or reflux symptoms. No recent falls or restless leg symptom. Interim history: Patient is doing well on anticoagulation treatment and iron. She is not anemic but still has mild iron deficiency. Her Crohn's disease is controlled with Imuran. She denies any rectal bleeding or melena. She had a colonoscopy last year, and will have a follow-up colonoscopy in 5 year because of Crohn's disease and increased risk for colon cancer. All medications AND allergies updated and reviewed by me. REVIEW OF SYSTEMS: ? CONSTITUTIONAL: No fevers, chills, nightsweats, unintended weight loss + fatigue HEENT: Denies frequent or severe heaches, nasal congestion/sinus symptoms, problematic allergy problems. EYES: No diplopia or blurry vision. CARDIOVASCULAR: No chest pain, + dyspnea with exertion, palpitations, orthopnea, PND, ankle edema. PULM: No dyspnea, unexplained cough. GI: No dysphagia/odynophagia , problematic reflux, constipation, diarrhea, changes in stool habits, hematochezia, melena. : No new urinary complaints, including dysuria, gross hematuria or pyuria. NEURO: No new balance problems, peripheral weakness/paresthesias or numbness of concern. MUSC-SKEL: No new joint pain, swelling, or erythema. PSY: No concerns regarding depression, anxiety or panic. INTEGUMENTARY: No new skin changes (rash, new or changing mole, new growth) ? PHYSICAL EXAMINATION: 63-year-old well-nourished well-developed female in no acute distress. Performance status 90% BP 135/64 Pulse 68 Temp (Src) 97.2 (Temporal) Wt 244 lb 8 oz (110.9kg) LMP 12/27/2005 HEENT: Head is normocephalic, atraumatic. Sclerae white, conjunctivae pink. PEERL. EOMs are intact. Oropharynx is benign. LYMPHATICS: There is no palpable adenopathy in the neck, supraclavicular region, axillae, or groin. LUNGS: Lungs are clear to percussion and auscultation. HEART: Heart is normal without murmurs, gallops, or rubs. ABDOMEN: Soft and nontender without organomegaly. No masses can be palpated. EXTREMITIES: Are without edema. NEUROLOGIC: Exam is physiologic ? LABORATORY DATA: Component Latest Ref Rng AND Units 09/17/2018 WBC, Elkins 3.70 - 11.00 k/uL 4.38 RBC, Robin 3.90 - 5.20 m/uL 5.24 (H) Hemoglobin, Robin 11.5 - 15.5 g/dL 14.3 Hematocrit, Elkins 36.0 - 46.0 % 44.5 MCV, Elkins 80.0 - 100.0 fL 84.9 MCH, Robin 26.0 - 34.0 pg 27.3 MCHC, Elkins 30.5 - 36.0 g/dL 32.1 RDW, Robin 11.5 - 15.0 % 14.1 Platelet Cnt, Elkins 150 - 400 k/uL 213 MPV, Elkins 9.0 - 12.7 fL 11.6 Absol Gran Count 1.45 - 7.50 k/uL 3.01 Component Latest Ref Rng AND Units 09/17/2018 Iron 41 - 186 ug/dL 39 (L) TIBC 232 - 386 ug/dL 354 Transferrin Saturation 15 - 57 % 11 (L) Ferritin 14.7 - 205.1 ng/mL 41.4 ? ASSESSMENT: 63 -year-old with iron malabsorption and Crohn's disease. She has been taking oral iron supplement and her anemia has resolved. She is also on ELIQUIS for atrial fibrillation. She is clinically asymptomatic. ? PLAN: - Continue iron twice daily and Eliquis and follow-up with PCP. - She also need to follow with GI, Dr. Kat for colonoscopy in 3-5 years. - No further follow-up here as needed. Timi Parsons MD Cc: Dr. Ottoniel Page Normal [facility] Ferritinon 09-17-2018 Ferritin [Mass/Vol] 41.4 ng/mL Normal 14.7-205.1 [facility] Comment on above: Performed By: #### I LESLEE FERR ####[facility] [place], [place] [phone] Iron and TIBCon 07-11-2019 Iron [Mass/Vol] 39 ug/dL Low 41-186 [facility] Comment on above: Performed By: #### I LESLEE, FERR ####[facility] [place], [place] [phone] TIBC 354 ug/dL Normal 232-386 [facility] Comment on above: Performed By: #### I LESLEE, FERR ####[facility] [place], [place] [phone] Transferrin Saturatn 11 % Low 15-57 [facility] Comment on above: Performed By: #### I LESLEE, GABRIELLE ####[facility] [place], [place] [phone] Robin Abs Gr + CBCon 09-17 Absol Gran Count 3.01 k/uL Normal 1.45-7.50 [facility] Erythrocyte distribution width (RBC) [Ratio] 14.1 % Normal 11.5-15.0 [facility] Hematocrit (Bld) [Volume fraction] 44.5 % Normal 36.0-46.0 [facility] Hemoglobin (Bld) [Mass/Vol] 14.3 g/dL Normal 11.5-15.5 [facility] MCH (RBC) [Entitic mass] 27.3 pg Normal 26.0-34.0 [facility] MCHC (RBC) [Mass/Vol] 32.1 g/dL Normal 30.5-36.0 [facility] MCV (RBC) [Entitic vol] 84.9 fL Normal 80.0-100.0 [facility] Platelet mean volume (Bld) [Entitic vol] 11.6 fL Normal 9.0-12.7 [facility] Comment on above: Result Comment: Test performed by: [facility] Carlos Manuel Kelly [facility] [place] [address]. RBC (Bld) [#/Vol] 5.24 10*6/uL High 3.90-5.20 [facility] WBC (Bld) [#/Vol] 4.38 10*3/uL Normal 3.70-11.00 [facility] Robin Platelet Cnt 213 k/uL Normal 150-400 [facility] Basic Metabolic Panlon 06-12 Anion gap [Moles/Vol] 10 mmol/L Normal [facility] Calcium [Mass/Vol] 9.0 mg/dL Normal 8.5-10.2 [facility] Chloride [Moles/Vol] 103 mmol/L Normal 97-105 [facility] CO2 [Moles/Vol] 26 mmol/L Normal 22-30 [facility] Creatinine [Mass/Vol] 0.60 mg/dL Normal 0.58-0.96 [facility] eGFR- Amer. >60 Normal [facility] GFR/1.73 sq M predicted among non-blacks MDRD (S/P/Bld) [Vol rate/Area] mL/min/{1.73_m2} Normal [facility] Comment on above: Result Comment: eGFR (Estimated GFR) Units of measure: mL/min/1.73 meters squared eGFR is derived from the reexpressed MDRD Study equation using the following parameters: serum creatinine, age, gender and race. The creatinine assay has been calibrated to be traceable to IDMS. An eGFR <60 mL/min/1.73m2 for >3 months is consistent with chronic kidney disease. Refer to KDOQI guidelines for clinical interpretation. In patients with unstable renal function, e.g. those with acute kidney injury, the eGFR may not accurately reflect actual GFR. Glucose [Mass/Vol] 105 mg/dL High 74-99 [facility] Potassium [Moles/Vol] 3.6 mmol/L Low 3.7-5.1 [facility] Sodium [Moles/Vol] 139 mmol/L Normal 136-144 [facility] Urea nitrogen [Mass/Vol] 8 mg/dL Normal 7-21 [facility] CNOVSPon 06-12-2018 CNOVSP Visit (SP) Office ([place]) ABI REYNA ([id number]) 1955 F Date Time Provider Department 06/12/18 10:00 AM TIMI PARSONS During your visit today, we recorded the following information about you: Temperature Pulse Blood pressure Weight 98.8 degrees 70/minute 114/60 108.9 kg Height 1.778 m Daniella Burden LPN, [place] 06/12/2018 10:16 AM Signed New patient, rubenuu diagnosis : iron defeincy anemia [place] Turpin MD 06/13/2018 10:04 AM Signed Hematology and Medical Oncology PATIENT NAME: Abi Reyna. CLINIC NO: [id number]. ATTENDING PHYSICIAN: Timi Parsons MD. DATE OF SERVICE:06/12/2018. DIAGNOSIS: Iron deficiency anemia, history of Crohn's disease and iron malabsorption. Consultation requested by Dr. Kat for an opinion regarding anemia. My final recommendations will be communicated back to the requesting physician by way of shared Medical record or letter to requesting physician via US mail. PERFORMANCE STATUS:80% HPI: This is a 62-year-old female with history of Crohn's disease and chronic arthropathy, history of atrial supraventricular tachycardia on ELIQUIS. She presented to Dr. Kat earlier this year with increased symptoms of fatigue and iron deficiency anemia for about 2 months. She denies any rectal bleeding or melena. However, she has some epigastric discomfort along with nausea for about a month, and she was instructed to increase protonic to twice daily. She presented with symptom of pallor and dyspnea with exertion despite taking iron supplement, ferrous sulfate 325mg twice daily. Patient has no history of celiac disease, however, her granddaughter has celiac disease. Her Crohn's disease has been stable since she started Imuran, and Budesonide. Patient denies frequent headaches or increased lethargy. She has no chest pain or palpitation today. She denies weakness, lightheadedness, or dizziness. She has increased fatigue, but no change in weight appetite. She denies any jaundice or increased diarrhea. She currently has no epigastric discomfort or reflux symptoms. No recent falls or restless leg symptom. Patient is here today to discuss treatment for her iron deficiency. MEDICATIONS: Current Outpatient Medications: pantoprazole DR (PROTONIX) 40 mg tablet Take 40 mg by mouth twice daily. apixaban (ELIQUIS) 5 mg tab(s) Take by mouth twice daily. azaTHIOprine (IMURAN) 50 mg tablet 3 tablets once daily. rOPINIRole (REQUIP) 0.5 mg tablet 0.5 mg. 1 tablet at lunch, 2 tablets at bedtime ustekinumab (STELARA) 90 mg/mL injection Inject 90 mg subcutaneously one time only. 1 injection every 60 days estradiol (ESTRACE) 0.01 % (0.1 mg/gram) vaginal cream Use 1 g vaginally twice a week. Methenamine Hippurate (HIPREX) 1 gram tablet Take 1 g by mouth daily at bedtime. ciprofloxacin HCl (CIPRO) 500 mg tablet take 1 tablet by mouth twice a day for 3 days promethazine (PHENERGAN) 25 mg tablet oxyCODONE-acetaminoph en (PERCOCET) 5325 mg per tablet Take 1-2 tablets by mouth every 6 hours as needed. FLUoxetine 20 mg capsule Take 20 mg by mouth once daily. Ferrous Sulfate 325 mg (65 mg iron) tablet Take 325 mg by mouth twice daily. Ascorbic Acid (VITAMIN C) 1,000 mg tablet Take 1,000 mg by mouth once daily. sotalol (SOTALOL AF) 80 mg ORAL tablet Take 1 tablet by mouth twice daily. naproxen (NAPROSYN) 500 mg tablet Take 1 tablet by mouth twice daily as needed. FOR PAIN. TAKE WITH FOOD. hyoscyamine sublingual (LEVSIN SL) 0.125 mg subl Dissolve 2 tablets under the tongue four times daily as needed. (Patient not taking: Reported on 06/12/2018 ) Mesalamine 500 mg CR capsule Take 2 capsules by mouth three times daily. (Pentasa) (Patient not taking: Reported on 06/12/2018 ) omeprazole (PRILOSEC) 20 mg capsule Take 20 mg by mouth once daily. gabapentin 300 mg capsule Take 300 mg by mouth four times daily. cyanocobalamin (VITAMIN B-12) 1,000 mcg Tab Take 1,000 mcg by mouth once daily. Cholecalciferol, Vitamin D3, (VITAMIN D-3) 2,000 unit cap Take 1 capsule by mouth once daily. Magnesium 250 mg Tab Take 250 mg by mouth once daily. aspirin 81 mg ORAL chewable tablet Take 1 tablet by mouth once daily. No current facility-administered medications for this visit. . ALLERGIES: ALLERGIES Allergen Reactions - Cortisone Mental Status Change Patient feels Paranoid - Darvocet-N 100 [Pro* GI Upset - Darvon [Propoxyphen* - Prednisone Mental Status Change Patient feels Paranoid - Vicodin [Hydrocodon* paranoid and had fireworks in her eyes . PAST MEDICAL HISTORY: PAST MEDICAL HISTORY Diagnosis Date - Atrial fibrillation (HCC) - Compression fracture of thoracic vertebra (HCC) - Dysthymic disorder Depression (non-psychotic) - Esophageal reflux Gastroesophageal reflux - Palpitations - Regional enteritis of unspecified site crohns disease . PAST SURGICAL HISTORY: PAST SURGICAL HISTORY Procedure Laterality Date - COLONOSCOP W/ OR W/O [facility] SPEC 04/17/2007 Colonoscopy - COLONOSCOP W/ OR W/O [facility] SPEC 09/18/2012 Colonoscopy - ERCP stone removal - LAPAROSCOPIC CHOLEYCYSTECTOMY 1989 BILE DUCT BLOCKED AND TRANSFERRED TO [place] FOR FUTHER SURGERY - PAST SURGICAL HISTORY OF crainiotomy for meningioma - REDUCTION OF LARGE BREAST - REMOVE TONSILS/ADENOIDS,<12 Y/O Age 5 - RHIZOTOMY -2011 back surgery, had nerves burnt - THYROIDECTOMY right . FAMILY HISTORY: FAMILY HISTORY Problem Relation Age of Onset - other (Other) Mother MULTIPLE SCLEROSIS - Hypertension Father - Cancer Paternal Grandfather - Hypertension Maternal Grandfather - Psychiatry Maternal Grandmother - Stroke Maternal Grandmother . SOCIAL HISTORY:Social History Socioeconomic History Marital status: Spouse name: Not on file Number of children: Not on file Years of education: Not on file Highest education level: Not on file Social Needs Financial resource strain: Not on file Food insecurity - worry: Not on file Food insecurity - inability: Not on file Transportation needs - medical: Not on file Transportation needs - non-medical: Not on file Occupational History Not on file Tobacco Use Smoking status: Former Smoker Packs/day: 1.00 Years: 30.00 Pack years: 30 Types: Cigarettes Quit date: 06/27/2004 Years since quittin.9 Smokeless tobacco: Never Used Substance and Sexual Activity Alcohol use: No Drug use: No Sexual activity: Not on file Other Topics Concerns: Not on file Social History Narrative Not on file . REVIEW OF SYSTEMS: CONSTITUTIONAL: No fevers, chills, nightsweats, unintended weight loss + fatigue HEENT: Denies frequent or severe heaches, nasal congestion/sinus symptoms, problematic allergy problems. EYES: No diplopia or blurry vision. CARDIOVASCULAR: No chest pain, + dyspnea with exertion, palpitations, orthopnea, PND, ankle edema. PULM: No dyspnea, unexplained cough. GI: No dysphagia/odynophagia , problematic reflux, constipation, diarrhea, changes in stool habits, hematochezia, melena. : No new urinary complaints, including dysuria, gross hematuria or pyuria. NEURO: No new balance problems, peripheral weakness/paresthesias or numbness of concern. MUSC-SKEL: No new joint pain, swelling, or erythema. PSY: No concerns regarding depression, anxiety or panic. INTEGUMENTARY: No new skin changes (rash, new or changing mole, new growth) PHYSICAL EXAMINATION: 63-year-old well-nourished well-developed female in no acute distress. BP 114/60 Pulse 70 Temp 98.8 Ht 5' 10[verified[ (1.78m) Wt 240 lb (108.9kg) LMP 12/27/2005 BMI 34.44 kg/(m2). HEENT: Head is normocephalic, atraumatic. Sclerae white, conjunctivae pink. PEERL. EOMs are intact. Oropharynx is benign. LYMPHATICS: There is no palpable adenopathy in the neck, supraclavicular region, axillae, or groin. LUNGS: Lungs are clear to percussion and auscultation. HEART: Heart is normal without murmurs, gallops, or rubs. ABDOMEN: Soft and nontender without organomegaly. No masses can be palpated. EXTREMITIES: Are without edema. NEUROLOGIC: Exam is physiologic LABORATORY DATA: Component Latest Ref Rng AND Units 06/12/2018 WBC, Elkins 3.70 - 11.00 k/uL 4.43 RBC, Robin 3.90 - 5.20 m/uL 4.76 Hemoglobin, Robin 11.5 - 15.5 g/dL 12.6 Hematocrit, Robin 36.0 - 46.0 % 40.8 MCV, Elkins 80.0 - 100.0 fL 85.7 MCH, Robin 26.0 - 34.0 pg 26.5 MCHC, Elkins 30.5 - 36.0 g/dL 30.9 RDW, Elkins 11.5 - 15.0 % 16.4 (H) Platelet Cnt, Elkins 150 - 400 k/uL 273 MPV, Robin 9.0 - 12.7 fL 11.0 Neut%, Elkins % 74.5 Lymp%, Elkins % 13.1 Wharton%, Robin % 8.1 Eos%, Elkins % 3.2 Baso%, Elkins % 1.1 Abs Neut, Elkins 1.45 - 7.50 k/uL 3.30 Abs Lymp, Elkins 1.00 - 4.00 k/uL 0.58 (L) Abs Wharton, Robin <0.87 k/uL 0.36 Abs Eos, Elkins <0.46 k/uL 0.14 Abs Baso, Elkins <0.11 k/uL 0.05 Component Latest Ref Rng AND Units 06/12/2018 Iron 41 - 186 ug/dL 94 TIBC 232 - 386 ug/dL 406 (H) Transferrin Saturation 15 - 57 % 23 Retic % 0.4 - 2.0 % 1.8 Abs Retic 0.0180 - 0.1000 M/uL 0.086 Ferritin 14.7 - 205.1 ng/mL 34.6 Folate >4.7 ng/mL >20.0 Vitamin B12 232 - 1,245 pg/mL 807 ASSESSMENT: 63 -year-old with iron malabsorption and mild symptom from anemia. She has been taking oral iron supplement for the last 3 months without improvement in her serum iron levels. Rule out celiac disease versus GI bleeding from gastritis or Crohn's disease. She is also on ELIQUIS for atrial fibrillation. PLAN: - Repeat anemia panel today along with iron study. - Check renal function and celiac antibodies. - If iron deficiency confirmed along with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 Normal <0.46 [facility] Abs Lymp 0.58 k/uL Low 1.00-4.00 [facility] Abs Wharton 0.36 k/uL Normal <0.87 [facility] Abs Neut 3.30 k/uL Normal 1.45-7.50 [facility] Wharton% 8.1 % Normal [facility] Platelet Cnt 273 k/uL Normal 150-400 [facility] Vital Signs Date Time Vital Sign Value Performing Clinician Facility 08-10-2024 08:31-0400 Body height 177.[address] Ottoniel Page DO Work Phone: [facility] 08-10-2024 08:31-0400 Body mass index (BMI) [Ratio] 36.3 kg/m2 Dr. Ottoniel Page DO Work Phone: [facility] 08-10-2024 08:31-0400 Body weight 114.[address] Ottoniel Page DO Work Phone: [facility] 08-10-2024 08:31-0400 Diastolic blood pressure 73 mm[Hg] Dr. Ottoniel Page DO Work Phone: [facility] 08-10-2024 08:31-0400 Heart rate 74 /min Dr. Ottoniel Page DO Work Phone: [facility] 08-10-2024 08:31-0400 Respiratory rate 16 /min Dr. Ottoniel Page DO Work Phone: [facility] 08-10-2024 08:31-0400 Systolic blood pressure 117 mm[Hg] Dr. Ottoniel Page DO Work Phone: [facility] 05-27-2024 14:51-0400 Body temperature 97.9 [degF] Dr. Ottoniel Page DO Work Phone: [facility] 05-27-2024 14:51-0400 Diastolic blood pressure 51 mm[Hg] Dr. Ottoniel Page DO Work Phone: [facility] 05-27-2024 14:51-0400 Heart rate 69 /min Dr. Ottoniel Page DO Work Phone: [facility] 05-27-2024 14:51-0400 Respiratory rate 16 /min Dr. Ottoniel Page DO Work Phone: [facility] 05-27-2024 14:51-0400 SaO2% (BldA) [Mass fraction] 93 % Dr. Ottoniel Page DO Work Phone: [facility] 05-27-2024 14:51-0400 Systolic blood pressure 104 mm[Hg] Dr. Ottoniel Page DO Work Phone: [facility] 05-27-2024 14:00-0400 Inhaled oxygen flow rate 2 L/min Dr. Ottoniel Page DO Work Phone: [facility] 05-27-2024 10:40-0400 Body height 177.[address] Ottoniel Page DO Work Phone: [facility] 05-27-2024 10:40-0400 Body mass index (BMI) [Ratio] 36 kg/m2 Dr. Ottoniel Page DO Work Phone: [facility] 05-27-2024 10:40-0400 Body weight 113.[address] Ottoniel Page DO Work Phone: [facility] 08-08-2022 08:38-0400 Body height 177.[address] Ottoniel Page Work Phone: [facility] 08-08-2022 08:38-0400 Body mass index (BMI) [Ratio] 37.4 kg/m2 Dr. Ottoniel Page Work Phone: [facility] 08-08-2022 08:38-0400 Body weight 118.[address] Ottoniel Page Work Phone: [facility] 08-08-2022 08:38-0400 Diastolic blood pressure 79 mm[Hg] Dr. Ottoniel Page Work Phone: [facility] 08-08-2022 08:38-0400 Heart rate 80 /min Dr. Ottoniel Page Work Phone: [facility] 08-08-2022 08:38-0400 Respiratory rate 20 /min Dr. Ottoniel Page Work Phone: [facility] 08-08-2022 08:38-0400 SaO2% (BldA) [Mass fraction] 97 % Dr. Ottoniel Page Work Phone: [facility] 08-08-2022 08:38-0400 Systolic blood pressure 130 mm[Hg] Dr. Ottoniel Page Work Phone: [facility] 08-07-2021 13:16-0400 Body height 177.[address] Ottoniel Page Work Phone: [facility] Work Phone: 08-07-2021 13:16-0400 Body mass index (BMI) [Ratio] 37 kg/m2 Dr. Ottoniel Page Work Phone: [facility] Work Phone: 08-07-2021 13:16-0400 Body weight 117.[address] Ottoniel Page Work Phone: [facility] Work Phone: 08-07-2021 13:16-0400 Diastolic blood pressure 80 mm[Hg] Dr. Ottoniel Page Work Phone: [facility] Work Phone: 08-07-2021 13:16-0400 Heart rate 63 /min Dr. Ottoniel Page Work Phone: [facility] Work Phone: 08-07-2021 13:16-0400 Respiratory rate 18 /min Dr. Ottoniel Page Work Phone: [facility] Work Phone: 08-07-2021 13:16-0400 SaO2% (BldA) [Mass fraction] 95 % Dr. Ottoniel Page Work Phone: [facility] Work Phone: 08-07-2021 13:16-0400 Systolic blood pressure 124 mm[Hg] Dr. Ottoniel Page Work Phone: [facility] Work Phone: 08-07-2021 13:16-0400 Body height 177.[address] Ottoniel Page Work Phone: [facility] Work Phone: 08-07-2021 13:16-0400 Body mass index (BMI) [Ratio] 37 kg/m2 Dr. Ottoniel Page Work Phone: [facility] Work Phone: 08-07-2021 13:16-0400 Body weight 117.[address] Ottoniel Page Work Phone: [facility] Work Phone: 08-07-2021 13:16-0400 Diastolic blood pressure 80 mm[Hg] Dr. Ottoniel Page Work Phone: [facility] Work Phone: 08-07-2021 13:16-0400 Heart rate 63 /min Dr. Ottoniel Page Work Phone: [facility] Work Phone: 08-07-2021 13:16-0400 Respiratory rate 18 /min Dr. Ottoniel Page Work Phone: [facility] Work Phone: 08-07-2021 13:16-0400 SaO2% (BldA) [Mass fraction] 95 % Dr. Ottoniel Page Work Phone: [facility] Work Phone: 08-07-2021 13:16-0400 Systolic blood pressure 124 mm[Hg] Dr. Ottoniel Page Work Phone: [facility] Work Phone: 06-11-2021 18:55-0400 Body temperature 97.88 [degF] GERARDO HOOKS MD [facility] 06-11-2021 18:55-0400 Diastolic blood pressure 65 mm[Hg] GERARDO HOOKS MD [facility] 06-11-2021 18:55-0400 Heart rate 70 /min GERARDO HOOKS MD [facility] 06-11-2021 18:55-0400 Respiratory rate 18 /min GERARDO HOOKS MD [facility] 06-11-2021 18:55-0400 Systolic blood pressure 111 mm[Hg] GERARDO HOOKS MD [facility] 06-11-2021 15:20-0400 Body temperature 97.7 [degF] GERARDO HOOKS MD [facility] 06-11-2021 15:20-0400 Diastolic blood pressure 70 mm[Hg] GERARDO HOOKS MD [facility] 06-11-2021 15:20-0400 Heart rate 68 /min GERARDO HOOKS MD [facility] 06-11-2021 15:20-0400 Mean blood pressure 85 mm[Hg] GERARDO HOOKS MD [facility] 06-11-2021 15:20-0400 Reason For Taking VItal Signs GERARDO HOOKS MD [facility] 06-11-2021 15:20-0400 Respiratory rate 16 /min GERARDO HOOKS MD [facility] 06-11-2021 15:20-0400 Systolic blood pressure 114 mm[Hg] GERARDO HOOKS MD [facility] 06-11-2021 14:56-0400 Body temperature 97.52 [degF] GERARDO HOOKS MD [facility] 06-11-2021 14:56-0400 Diastolic Blood Pressure NBP 58 1 GERARDO HOOKS MD [facility] 06-11-2021 14:56-0400 Heart rate 74 /min GERARDO HOOKS MD [facility] 06-11-2021 14:56-0400 Mean blood pressure 71 mm[Hg] GERARDO HOOKS MD [facility] 06-11-2021 14:56-0400 Respiratory rate 16 /min GERARDO HOOKS MD [facility] 06-11-2021 14:56-0400 Systolic Blood Pressure NBP 110 1 GERARDO HOOKS MD [facility] 06-11-2021 14:25-0400 Diastolic Blood Pressure NBP 52 1 GERARDO HOOKS MD [facility] 06-11-2021 14:25-0400 Heart rate 70 /min GERARDO HOOKS MD [facility] 06-11-2021 14:25-0400 Mean blood pressure 67 mm[Hg] GERARDO HOOKS MD [facility] 06-11-2021 14:25-0400 Systolic Blood Pressure NBP 114 1 GERARDO HOOKS MD [facility] 06-11-2021 14:08-0400 Diastolic Blood Pressure NBP 58 1 GERARDO HOOKS MD [facility] [facility] 06-11-2021 14:08-0400 Mean blood pressure 74 mm[Hg] GERARDO HOOKS MD [facility] 06-11-2021 14:08-0400 Systolic Blood Pressure NBP 123 1 GERARDO HOOKS MD [facility] 06-11-2021 13:38-0400 Body temperature 97.52 [degF] GERARDO HOOKS MD [facility] 06-11-2021 13:05-0400 Body temperature 98.42 [degF] GERARDO HOOKS MD [facility] 06-11-2021 13:00-0400 Body temperature 98.58 [degF] GERARDO HOOKS MD [facility] 06-11-2021 12:55-0400 Body temperature 98.67 [degF] GERARDO HOOKS MD [facility] 06-11-2021 08:34-0400 Body height 177.8 cm GERARDO HOOKS MD [facility] 06-11-2021 08:34-0400 Body weight 117.1 kg GERARDO HOOKS MD [facility] 06-11-2021 08:34-0400 Diastolic blood pressure 70 mm[Hg] GERARDO HOOKS MD [facility] 06-11-2021 08:34-0400 Heart rate 70 /min GERARDO HOOKS MD [facility] 06-11-2021 08:34-0400 Systolic blood pressure 123 mm[Hg] GERARDO HOOKS MD [facility] 05-28-2021 07:48-0400 Body height 177 cm GERARDO HOOKS MD [facility] 05-28-2021 07:48-0400 Body temperature 97.88 [degF] GERARDO HOOKS MD [facility] 05-28-2021 07:48-0400 Body weight 119.5 kg GERARDO HOOKS MD [facility] 05-28-2021 07:48-0400 diastolic 75 mm[Hg] GERARDO HOOKS MD [facility] 05-28-2021 07:48-0400 Heart rate 75 /min GERARDO HOOKS MD [facility] 05-28-2021 07:48-0400 systolic 124 mm[Hg] GERARDO HOOKS MD [facility] Encounters Encounter Date Encounter Type Care Provider Facility Start: 08-10-2024 End: 08-10-2024 Patient encounter procedure Janeth HARRIS -[facility] Work Phone: Start: 08-10-2024 End: 08-10-[address] Ottoniel Page DO Work Phone: [facility] Work Phone: Start: 08-04-2024 End: 08-04-[address] Ottoniel Page DO Work Phone: [facility] Work Phone: Start: 08-04-2024 End: 08-04-[address] Ottoniel Page DO -Outpatient Breast Imaging Work Phone: Start: 08-04-2024 End: 08-04-2024 ambulatory Ottoniel Page Facility:[facility] Start: 07-20-2024 ambulatory Bruno Morton ty:[facility] Start: 07-20-[address] Jethro Avila DO -Occupational Therapy Work Phone: Start: 06-08-[facility] Start: 05-27-2024 End: 05-27-2024 Admission to same day surgery center Dr. Bruno Avila DO -Surgical Day Care Start: 05-27-2024 End: 05-27-[address] Ottoniel Page DO Work Phone: [facility] Work Phone: Start: 05-21-2024 End: 05-21-2024 ambulatory Bruno Avila Facility:[facility] Start: 05-21-2024 End: 05-21-2024 Non-patient / Non-visit Dr. Daphne Manuel MD -[facility] Work Phone: Start: 05-10-2024 End: 05-10-[address] [facility] Start: 05-10-[address] Facundo win MD -Laboratory, [place] Work Phone: Start: 05-10-2024 End: 05-10-[address] Ottoniel Page DO Work Phone: [facility] Work Phone: Start: 04-20-2024 End: 04-20-2024 Patient encounter procedure [facility] -Radiology, [place] Work Phone: Start: 04-20-2024 End: 04-20-2024 ambulatory [facility] Facility:[facility] Start: 01-05-2024 End: 01-05-2024 ambulatory Facundo babita Facility:[facility] Start: 10-28-2023 End: 10-28-2023 [facility] Start: 08-20-2023 ambulatory Janeth HARRIS Facility:[facility] Start: 08-20-2023 End: 08-20-2023 ambulatory Janeth HARRIS Facility:[facility] Start: 07-05-2023 End: 07-05-2023 ambulatory [facility] Work Phone: Start: 07-05-2023 End: 07-05-2023 Patient encounter procedure [facility]-Laboratory Work Phone: Start: 06-20-2023 End: 07-08-2023 ambulatory [facility] Work Phone: Start: 06-20-2023 End: 07-08-2023 [facility]charged [facility]urring [facility] Start: 02-21-2023 Non-patient / Non-visit Dr. Gerald Page Work Phone: [facility] Start: 02-21-2023 End: 02-21-[address] Ottoniel Page Work Phone: [facility] Work Phone: Start: 02-21-2023 End: 02-21-[address] Ottoniel Page Work Phone: [facility]-Cardiovascula r Services Work Phone: Start: 11-22-2022 End: 11-22-[address] Ottoniel Page Work Phone: [facility] Work Phone: Start: 11-22-2022 End: 11-22-[address] Ottoniel Page Work Phone: [facility] Start: 10-21-2022 End: 10-21-[address] Ottoniel Page Work Phone: [facility] Work Phone: Start: 10-21-2022 End: 10-21-[address] Ottoniel Page Work Phone: [facility] Work Phone: Start: 09-20-2022 End: 09-20-[address] Ottoniel Page Work Phone: [facility] Work Phone: Start: 09-20-2022 End: 09-20-[address] Ottoniel Page Work Phone: [facility] Work Phone: Start: 08-08-2022 End: 08-08-[address] Ottoniel Page Work Phone: [facility] Work Phone: Start: 04-22-2022 End: 04-22-[address] Ottoniel Page Work Phone: [facility] Work Phone: Start: 04-22-2022 End: 04-22-[address] Ottoniel Page Work Phone: [facility]-Laboratory, [employer] Start: 03-21-2022 End: 03-21-[address] Ottoniel Page Work Phone: [facility] Work Phone: Start: 03-21-2022 End: 03-21-[address] Ottoniel Page Work Phone: [facility] Start: 01-02-2022 End: 01-02-2022 ambulatory [facility] Work Phone: Start: 01-02-2022 End: 01-02-2022 Patient encounter procedure [facility]-Pulmonary Services/Neurology Start: 01-02-2022 Non-patient / Non-visit Dr. Gerald Page Work Phone: [facility] Start: 11-27-2021 End: 11-27-[address] Ottoniel Page Work Phone: [facility] Work Phone: Start: 11-27-2021 End: 11-27-[address] [facility] Start: 09-14-2021 End: 09-14-[address] Ottoniel Page Work Phone: [facility] Start: 08-15-2021 End: 08-15-[address] Ottoniel Page Work Phone: [facility] Start: 08-08-2021 End: 08-08-[address] Ottoniel Page [facility] Start: 08-07-2021 End: 08-08-[address] Ottoniel Page Work Phone: [facility] Start: 08-02-2021 End: 08-02-[address] Ottoniel Page Work Phone: [facility]-Laboratory, [place] Start: 06-27-2021 End: 06-27-2021 Patient encounter procedure GERARDO HOOKS MD [facility] Start: 06-11-2021 End: 06-11-2021 SAME DAY STAY GERARDO HOOKS MD [facility] Start: 05-28-2021 End: 05-28-2021 Admission to establishment GERARDO HOOKS MD [facility] Start: 04-25-2021 End: 04-25-2021 Patient encounter procedure GERARDO HOOKS MD [facility] Procedures Date Procedure Procedure Detail Performing Clinician Start: 08-04-[address] Ottoniel Page DO Work Phone: Start: 05-27-[address] Ottoniel Page DO Work Phone: Start: 05-27-2024 Plain x-ray of hand Dr. Ottoniel Page DO Work Phone: Start: 05-27-2024 Carpal Metacarpal Arthroplasty (Right) Dr. Ottoniel Page DO Work Phone: Start: 04-20-2024 Plain x-ray of pelvis and lower extremity Dr. Ottoniel Page DO Work Phone: Start: 04-20-2024 X-ray of lumbosacral spine Dr. Ottoniel khan DO Work Phone: Start: 10-21-[address] Ottoniel Page Work Phone: Start: 09-14-2021 Computed tomography of abdomen and pelvis with contrast Dr. Ottoniel Page Work Phone: Start: 08-08-2021 End: 08-08-[address] Ottoniel Page Work Phone: Start: 06-11-2021 Examination under anesthesia (qualifier value) GERARDO HOOKS MD Comment on above: TOTAL LAPAROSCOPIC HYSTERECTOMY, BILATER AL SALPINGO-OOPHORECTOMY, RESECTION OF LEFT RETROPERITONEAL MASS, REPAIR OF COLON SEROSA, CYSTOSCOPY Start: 06-11-2021 Laparoscopic hysterectomy GERARDO HOOKS MD Start: 02-22-2021 Hysteroscopy GERARDO HOOKS MD Start: 04-10-2020 Excision of lumbar intervertebral disc GERARDO HOOKS MD Start: 03-10-2009 Reduction mammoplasty, bilateral GERARDO HOOKS MD Start: 03-10-2004 Craniotomy GERARDO HOOKS MD Start: 03-10-2004 Thyroidectomy GERARDO HOOKS MD Start: 03-10-1999 Carpal tunnel syndrome (disorder) JOSE G HOOKS MD Comment on above: RIGHT Start: 03-10-1999 Release of trigger finger GERARDO HOOKS MD Comment on above: RIGHT RING FINGER Start: 03-10-1990 Laparoscopic cholecystectomy GERARDO WALKER MD Start: 03-10-1989 Laparoscopic cholecystectomy GERARDO WALKER MD Start: 03-10-1960 Tonsillectomy and adenoidectomy GERARDO HOOKS MD Clostridium difficile detection Dr. Ottoniel Page Work Phone: Colonoscopy GERARDO Rogers Esophagogastroduodenoscopy Sherie HOOKS MD Plan of Treatment Date Care Activity Detail Author Start: 05-27-2024 Anes arthrs/endscpy dstl radius ulna/wrist/hand ANESTH LOWER ARM SURGERY [facility] Start: 05-27-2024 Arthrp interpos intercarpal/metacarpal joints ARTHRP NTRCRP/CRP/MTCR NTRPS [facility] Start: 05-27-2024 Application of ice collar, cap or bag [facility] Start: 05-27-2024 Catheterization of vein [facility] Start: 05-27-2024 Following clinical pathway protocol [facility] Start: 05-27-2024 Patient discharge [facility] Start: 05-27-2024 Procedure discontinued [facility] Start: 05-27-2024 Taking patient vital signs [facility] Start: 05-27-2024 Vital signs measurements [facility] Start: 05-27-2024 [facility] Start: 05-27-2024 Medication education [facility] Electrocardiographic procedure [facility] Patient referral [facility] Work Phone: Immunizations Immunization Date Immunization Notes Care Provider Fa cili 03-07-2021 SARS-CoV-2 (COVID-19 ) mRNA-1273 vaccine GERARDO HOOKS MD [facility] 11-14-2020 influenza virus vaccine, unspecified formulation GERARDO HOOKS MD [facility] 08-06-2020 SARS-CoV-2 (COVID-19 ) mRNA-1273 vaccine GERARDO HOOKS MD [facility] 07-06-2020 SARS-CoV-2 (COVID-19 ) mRNA-1273 vaccine GERARDO HOOKS MD [facility] 12-27-2019 influenza virus vaccine, unspecified formulation GERARDO HOOKS MD [facility] 11-24-2017 influenza, injectabl e, quadrivalent, preservative free Dr. Ottoniel Page Work Phone: [facility] 11-24-2017 influenza, seasonal, injectable Dr. Ottoniel Page Work Phone: [facility] 12-21-2012 influenza virus vaccine, unspecified formulation GERARDO HOOKS MD [facility] Payers Date Payer Category Payer Self-pay [id number] 2014 Unknown [id number] [id number] 2011 Private Health Insurance [employer]ET[employer] [id number] [facility] Medicare MEDICARE A ONLY [id number] [facility] Unknown [id number] Unknown [id number] Unknown [id number] Unknown [id number] Unknown [id number] Unknown [id number] Unknown [id number] Unknown [id number] Unknown [id number] Unknown [id number] Unknown [id number] Unknown [id number] Social History Date Type Detail Facility Start: 04-24-2021 End: 05-12-2024 Ex-smoker (finding) [facility] Comment on above: Quit in 1999 Sex Assigned At [facility] Start: 08-07-2021 End: 08-08-2022 Tobacco smoking status NHIS Unknown if ever smoked [facility] Start: 04-27-2020 None [facility] Start: 04-09-2018 Spouse/ Signif icant Other [facility] Start: 04-13-2020 Non-smoker [facility] Start: 1955 Sex Assigned At Female [facility] Start: 05-27-2024 End: 06-07-2024 Sex Female (finding) [facility] Medical Equipment Procedure Code Equipment Code Equipment Origin al Text Equipment Identifier Dates Arthroplasty, CMC joint ([id number]) Orthopaedic bone screw, non-bioabsorbable, sterile ([id number] FDA Start: 05-27-2024 DRESSING,FIBRILL AR 1X2 1 FDA Start: 04-27-2020 DRESSING,FIBRILL AR 1X2 1960 FDA Start: 04-27-2020 SEALANT,FLOSEAL HEMOSTATIC 5ML FDA Start: 04-27-2020 SEALANT,TISSEEL 2ML FDA Start : 04-27-2020 DRESSING,FIBRILL AR 1X2 1960 FDA Start: 04-27-2020 DRESSING,FIBRILL AR 1X2 1960 FDA Start: 04-27-2020 SEALANT,FLOSEAL HEMOSTATIC 5ML FDA Start: 04-27-2020 SEALANT,TISSEEL 2ML FDA Start : 04-27-2020 DRESSING,FIBRILL AR 1X2 1 FDA Start: 04-27-2020 DRESSING,FIBRILL AR 1X2 1960 FDA Start: 04-27-2020 SEALANT,FLOSEAL HEMOSTATIC 5ML FDA Start: 04-27-2020 SEALANT,TISSEEL 2ML FDA Start : 04-27-2020 DRESSING,FIBRILL AR 1X2 1960 FDA Start: 04-27-2020 DRESSING,FIBRILL AR 1X2 1960 FDA Start: 04-27-2020 SEALANT,FLOSEAL HEMOSTATIC 5ML FDA Start: 04-27-2020 SEALANT,TISSEEL 2ML FDA Start : 04-27-2020 DRESSING,FIBRILL AR 1X2 1960 FDA Start: 04-27-2020 DRESSING,FIBRILL AR 1X2 1960 FDA Start: 04-27-2020 SEALANT,FLOSEAL HEMOSTATIC 5ML FDA Start: 04-27-2020 SEALANT,TISSEEL 2ML FDA Start : 04-27-2020 DRESSING,FIBRILL AR 1X2 1960 FDA Start: 04-27-2020 DRESSING,FIBRILL AR 1X2 1960 FDA Start: 04-27-2020 SEALANT,FLOSEAL HEMOSTATIC 5ML FDA Start: 04-27-2020 SEALANT,TISSEEL 2ML FDA Start : 04-27-2020 DRESSING,FIBRILL AR 1X2 1960 FDA Start: 04-27-2020 DRESSING,FIBRILL AR 1X2 1 FDA Start: 04-27-2020 SEALANT,FLOSEAL HEMOSTATIC 5ML FDA Start: 04-27-2020 SEALANT,TISSEEL 2ML FDA Start : 04-27-2020 DRESSING,FIBRILL AR 1X2 1960 FDA Start: 04-27-2020 DRESSING,FIBRILL AR 1X2 1960 FDA Start: 04-27-2020 SEALANT,FLOSEAL HEMOSTATIC 5ML FDA Start: 04-27-2020 SEALANT,TISSEEL 2ML FDA Start : 04-27-2020 DRESSING,FIBRILL AR 1X2 1960 FDA Start: 04-27-2020 DRESSING,FIBRILL AR 1X2 1960 FDA Start: 04-27-2020 SEALANT,FLOSEAL HEMOSTATIC 5ML FDA Start: 04-27-2020 SEALANT,TISSEEL 2ML FDA Start : 04-27-2020 DRESSING,FIBRILL AR 1X2 1 FDA Start: 04-27-2020 DRESSING,FIBRILL AR 1X2 1960 FDA Start: 04-27-2020 SEALANT,FLOSEAL HEMOSTATIC 5ML FDA Start: 04-27-2020 SEALANT,TISSEEL 2ML FDA Start : 04-27-2020 DRESSING,FIBRILL AR 1X2 1960 FDA Start: 04-27-2020 DRESSING,FIBRILL AR 1X2 1960 FDA Start: 04-27-2020 SEALANT,FLOSEAL HEMOSTATIC 5ML FDA Start: 04-27-2020 SEALANT,TISSEEL 2ML FDA Start : 04-27-2020 DRESSING,FIBRILL AR 1X2 1960 FDA Start: 04-27-2020 DRESSING,FIBRILL AR 1X2 1960 FDA Start: 04-27-2020 SEALANT,FLOSEAL HEMOSTATIC 5ML FDA Start: 04-27-2020 SEALANT,TISSEEL 2ML FDA Start : 04-27-2020 DRESSING,FIBRILL AR 1X2 1960 FDA Start: 04-27-2020 DRESSING,FIBRILL AR 1X2 1960 FDA Start: 04-27-2020 SEALANT,FLOSEAL HEMOSTATIC 5ML FDA Start: 04-27-2020 SEALANT,TISSEEL 2ML FDA Start : 04-27-2020 DRESSING,FIBRILL AR 1X2 1960 FDA Start: 04-27-2020 DRESSING,FIBRILL AR 1X2 1960 FDA Start: 04-27-2020 SEALANT,FLOSEAL HEMOSTATIC 5ML FDA Start: 04-27-2020 SEALANT,TISSEEL 2ML FDA Start : 04-27-2020 DRESSING,FIBRILL AR 1X2 1960 FDA Start: 04-27-2020 DRESSING,FIBRILL AR 1X2 1960 FDA Start: 04-27-2020 SEALANT,FLOSEAL HEMOSTATIC 5ML FDA Start: 04-27-2020 SEALANT,TISSEEL 2ML FDA Start : 04-27-2020 DRESSING,FIBRILL AR 1X2 1960 FDA Start: 04-27-2020 DRESSING,FIBRILL AR 1X2 1960 FDA Start: 04-27-2020 SEALANT,FLOSEAL HEMOSTATIC 5ML FDA Start: 04-27-2020 SEALANT,TISSEEL 2ML FDA Start : 04-27-2020 DRESSING,FIBRILL AR 1X2 1961 FDA Start: 04-27-2020 DRESSING,FIBRILL AR 1X2 1 FDA Start: 04-27-2020 SEALANT,FLOSEAL HEMOSTATIC 5ML FDA Start: 04-27-2020 SEALANT,TISSEEL 2ML FDA Start : 04-27-2020 Goals Date Patient Goal Desired Activity /State Functional Status Date Assessment Result Facility 06-11-2021 [facility] Mental Status Date Assessment Result Facility 05-27-2024 Cognitive function Voice/Name [facility] Work Phone[facility]11[facility] Clinical Notes 06-11-2021 to 05-27-2024 Note Date & Type Note Facility 05-27-2024 Consult note [facility] 05-27-2024 Procedure note [facility] 05-27-2024 Consult note [facility] 05-27-2024 Radiology Diagnostic study note [facility] Imaging Services [address] [place] [address] Hand 2 Views MR#: [id number] Acct: [id number] Name: ABI REYNA Rep #: [id number] : 1955 F 68 From: Mckenzie Hooker MD PCP: Dr. Ottoniel Page, DO Status: [facility] Study:Hand 2 Views Date of Exam: 5 Exam# [id number] Ordering Dr: Bruno Avila DO EXAM: XR Left Hand, 2 Views CLINICAL INDICATION: PAIN TECHNIQUE: Frontal and lateral views of the left hand. COMPARISON: No relevant prior studies available. FINDINGS: BONES/JOINTS: Unremarkable. No acute fracture. No dislocation. SOFT TISSUES: Unremarkable. No radiopaque foreign body. OTHER FINDINGS: Multiple fluoroscopic spot images were used intraoperatively for guidance. A total 4 images were obtained. Total fluoroscopy time 9.3 seconds. Total radiation dose 0.24 mGy. RAD/Hand 2 Views IMPRESSION: Fluoroscopic guidance used intraoperatively. Please refer to the operative notefor further details. Reading [facility] CC: Dr. Ottoniel Page, ; Dr. Bruno Avila, ~ Electrical Equipment Technician: Signed [facility] 05-27-2024 Consult note Note Date/Time May 27, 2024 11:17am [facility] Medical Records Department [address] [facility] [place] [address] Pre-Anesthesia Evaluation 05/27/24 1105 MR#: [id number] Acct: [id number] Name: ABI REYNA Rep #:[id number] : 1955 68 From: Tom Roger MD PCP: Dr. Ottoniel Page DO Status:REG SDC Y Race: C Location: [place] [address] ASA Classification* ASA Classification ASA Classification: 3 Assessment & Plan Anesthesia* Anesthesia Assessment Anesthesia Assessment: Discussed sedation and/or anesthesia options, risks, benefits, and alternatives with patient/parents/legal guardian/POA. Questions invited. The patient/parents/legal guardian/POA seems to understand and agrees to proceedwith anesthesia plan. Reviewed the physical assessment, medical history, allergy history and patient home medications list prior to surgery/procedure/anesthetic and documented any changes. Performed airway and anesthesia risk assessments. Anesthesia Type Anesthesia Type: General and Block (Patient is consented for axillary block.) History Source History Obtained from:: Patient and Chart Anesthesia Focused Assessment* Temperature: 97.2 F Pulse Rate: 76 Blood Pressure: 117/65 Respiratory Rate: 18 Pulse Ox: 92 Oxygen Delivery Method: Room Air Airway Assessment Mouth opens: >3 cm Mallampati Score: IV Teeth Condition: Dentures (Patient has full upper and lower dentures. They willcome out prior to surgery.) Neck Range of motion (ROM): Limited ROM (Slight decrease in extension) Focused Labs Anesthesia Preop lab: CBC WBC 7.2 K/mm3 (4.4-11.0) 05/10/24 09:16 05/10/24 RBC 5.45 M/mm3 (4.2-5.4) H 05/10/24 09:16 05/10/24 Hgb 14.7 g/dL (12.0-15.0) 05/10/24 09:16 05/10/24 Hct 45.9 % (37-47) 05/10/24 09:16 05/10/24 Plt Count 241 K/mm3 (150-450) 05/10/24 09:16 05/10/24 CHEMISTRY Potassium 4.0 mmol/L (3.3-5.1) 05/10/24 09:16 05/10/24 Sodium 137 mmol/L (133-145) 05/10/24 09:16 05/10/24 Magnesium 2.1 mg/dL (1.6-2.6) 08/11/23 09:16 08/11/23 BUN 9 mg/dL (4-19) 05/10/24 09:16 05/10/24 Creatinine 0.65 mg/dL (0.70-1.20) L 05/10/24 09:16 Glucose 114 mg/dL (70-99) H 05/10/24 09:16 05/10/24 TSH 2.73 uIU/mL (0.358-3.74) 08/11/23 09:16 COAG PT 12.5 SECONDS (11.7-14.9) 04/14/20 08:13 Pre-Assessment Diagnosis/Proposed Procedure Planned Operative Procedure(s): CARPAL METACARPAL ARTHROPLASTY, TRAPEZIECTOMY, LIGAMENT RECONSTRUCTION, TENDON INTERPOSITION Anesthesia History Anesthesia History - paymaster of purses: Anesthesia History - paymaster of purses Hx Hospitalization No 05/12/24 11:05 Any Problems With Anesthesia No 05/12/24 11:05 Cholinesterase deficiency No 05/12/24 11:05 You/Your Family Experience No 05/12/24 11:05 fever (hyperthermia) with Relationship Recent Exposure to Contagious No 05/27/24 10:37 Disease Does patient have nerve No 05/12/24 11:05 stimulator Patient instructed to have device shut off --Does patient have Pacemaker No 05/27/24 10:40 or ICD? When Was Last Pacemaker Check QUESTION #4 FULL TEXT: You/Your Family Experience fever (hyperthermia) with Anesthesia Last Oral Intake Last Oral intake: Last Oral Intake NPO since 22:00 05/27/24 10:40 Meds taken in AM with sips of Yes 05/27/24 10:40 water? Meds patient instructed to take am of surgery PONV PONV - paymaster of purses: PONV - paymaster of purses Female Yes 05/12/24 11:05 HX of Motion Sickness Yes 05/12/24 11:05 HX of N/V After Surgery No 05/12/24 11:05 Non-Smoker Yes 05/12/24 11:05 Duration of Surgery greater Yes 05/12/24 11:05 than 60 minutes Number of Risk Factors 4 05/12/24 11:05 PONV Score Severe Risk 05/12/24 11:05 Height & Weight Height & Weight: Anesthesia: Height & Weight Height 5 ft 10 in 05/27/24 10:40 Weight: 113.852 kg 05/27/24 10:40 Body Mass Index (BMI) 36.0 05/27/24 10:40 Respiratory Assessment Respiratory Assessment - paymaster of purses: Respiratory Tract Infection Hx - paymaster of purses Hx Respiratory Tract Infection No 05/12/24 11:05 STOP Sleep Apnea STOP Sleep Apnea - paymaster of purses: STOP Sleep Apnea - paymaster of purses Hx Hypertension Yes: CONTROLLED WITH MEDS 05/12/24 11:05 Hx Sleep Apnea No 05/12/24 11:05 CPAP BIPAP Do you snore loudly (louder No 05/12/24 11:05 than talking or can be heard Do you often feel tired/ No 05/12/24 11:05 fatigued/ sleepy during daytime? Has anyone observed you stop No 05/12/24 11:05 breathing during sleep? STOP Results Negative 05/12/24 11:05 QUESTION #5 FULL TEXT : Do you snore loudly (louder than talking or can be heard through closed doors)? 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 Specify any problems Hx of Preganancy in last 3 No 05/12/24 11:05 Months Nurse Filling Out Transfusion [email or web address] 05/12/24 11:05 & Questions: Date: 05/12/24 05/12/24 11:05 Time: 11:08 05/12/24 11:05 Patient unable to answer at this time (ie. confused, unrespo /Reproduction History /Reproductive History - paymaster of purses: /Reproductive Hx- paymaster of purses Hx Now Gestational Age (in weeks): EDC: Hx Hx Para Hx Section SAB No 02/20/21 08:22 Active Medications Active Medications: Current Medications Generic Name Dose Route Start Last Admin Trade Name Freq PRN Reason Stop Dose Admin Cefazolin Sodium 2 gm/ N/A 20 mls @ 400 mls/hr 05/27/24 12:25 IV 05/27/24 12:27 PREOP ONE Sodium Chloride 1,000 mls @ 15 mls/hr 05/27/24 10:25 05/27/24 10:56 IV 06/01/24 23:44 15 mls/hr .Q48H VALERIE Administration PFSH Medical History History of steroid therapy History of Holter monitoring Cardiology follow-up encounter Wears glasses Wears dentures Arthritis Bladder disease Pulmonary embolism High cholesterol Restless legs Back pain History of IBS History of Crohn's disease Gastric reflux Former smoker Leg cramps History of pain when walking Hypertension History of stress test Hx of echocardiogram History of atrial fibrillation History of trigger finger Wide-complex tachycardia (04/27/20) COVID-19 virus detected (01/24/20) Obesity Lumbar stenosis without neurogenic claudication Essential (primary) hypertension History of pulmonary embolus (PE) (04/09/18) Thyroid goiter History of meningioma of the brain Crohn disease Anxiety and depression Shortness of breath Palpitations Hyperlipidemia Paroxysmal atrial fibrillation Home Medications ?Medication ?Instructions ?Recorded ?Last Taken ?Type oxycodone-acetaminophen 5 mg-325 1 tab PO Q4H PRN Pain 07/02/17 04/08/18 22:00 History mg tablet pantoprazole 40 mg tablet,delayed 40 mg PO DAILY 10/1305/27/24 07:30 History release (Protonix) ropinirole 0.5 mg tablet 0.5 mg PO BID 10/13/1805/26 History cephalexin 250 mg tablet 250 mg PO DAILY 09/23/19 History cyclobenzaprine 10 mg tablet 10 mg PO PRN PRN MUSCLE R ELAXANT 09/23/19 Unknown History hydrochlorothiazide 25 mg tablet 25 mg PO DAILY Unknown History latanoprost 0.005 % eye drops 1 drp EACH EYE QHS 04/13 Unknown History ropinirole 1 mg tablet 1 mg PO QHS 04/13/20 5 History aspirin 81 mg tablet,delayed 81 mg PO QHS 08/24/20 History release promethazine 25 mg tablet 25 mg PO Q6H PRN Nausea 08/08 09/27 Unknown History ustekinumab 90 mg/mL subcutaneous 90 mg subcut .Q2MO 0 08/24/20 Unknown History syringe (Stelara) bupropion HCl 150 mg tablet,12 hr 150 mg PO QAM 05/26/24 History sustained-release (Wellbutrin SR) sotalol 80 mg tablet 80 mg PO BID #180 TABLETS 05/27/24 07:30 Rx gabapentin 400 mg capsule 400 mg PO TID 05/12/2405/27 07:30 History Allergy/AdvReac Type Severity Reaction Status Date / Time prednisone Allergy Itching Verified 05/27/24 10:34 hydrocodone (From Vicodin) AdvReac Severe GI upset Verified 05/27/24 10:34 propoxyphene (From AdvReac Severe GI upset Verified 05/27/24 10:34 Darvocet-N) cortisone AdvReac Intermediate Unknown Verified 05/27/24 10:34 Family History Mother CAD (coronary artery disease) Myocardial infarction Father Hypertension Brother CAD (coronary artery disease) Surgical History History of cystoscopy History of tonsillectomy and adenoidectomy Hx laparoscopic cholecystectomy History of carpal tunnel surgery of right wrist Hx of bilateral breast reduction surgery History of back surgery (04/2020) History of lobectomy of thyroid Hx of craniotomy Social History Smoking Status: Former smoker alcohol intake: never substance use type: does not use caffeine: Yes Type: carbonated beverages Number of servings: 2 what type of physical activity do you participate in: walking frequency: 3-4 times per week duration: 30-45 minutes/day seatbelt use: always do you feel safe at home: Yes Review of Systems (Anesthesia) ROS Narrative System reviewed and no additional complaints, except as documented. 05/27/24 1117 <Electronically signed by Tom hardy MD> Date _ Tom Roger MD Cosigner Signature: Date CC: ~ Signed [facility] Work Phone: [phone] Consult note [facility] Medical Records Department [address] [place] [address] Pre-Anesthesia Evaluation 05/27/24 1105 MR#: [id number] Acct: [id number] Name: ABI REYNA Rep #:[id number] : 1955 68 From: Tom Roger MD PCP: Dr. Ottoniel Page, DO Status:REG SDC Y Race: C Location: [facility]14-1 ASA Classification* ASA Classification ASA Classification: 3 Assessment & Plan Anesthesia* Anesthesia Assessment Anesthesia Assessment: Discussed sedation and/or anesthesia options, risks, benefits, and alternatives with patient/parents/legal guardian/POA. Questions invited. The patient/parents/legal guardian/POA seems to understand and agrees to proceedwith anesthesia plan. Reviewed the physical assessment, medical history, allergy history and patient home medications list prior to surgery/procedure/anesthetic and documented any changes. Performed airway and anesthesia risk assessments. Anesthesia Type Anesthesia Type: General and Block (Patient is consented for axillary block.) History Source History Obtained from:: Patient and Chart Anesthesia Focused Assessment* Temperature: 97.2 F Pulse Rate: 76 Blood Pressure: 117/65 Respiratory Rate: 18 Pulse Ox: 92 Oxygen Delivery Method: Room Air Airway Assessment Mouth opens: >3 cm Mallampati Score: IV Teeth Condition: Dentures (Patient has full upper and lower dentures. They willcome out prior to surgery.) Neck Range of motion (ROM): Limited ROM (Slight decrease in extension) Focused Labs Anesthesia Preop lab: CBC WBC 7.2 K/mm3 (4.4-11.0) 05/10/24 09:16 05/10/24 RBC 5.45 M/mm3 (4.2-5.4) H 05/10/24 09:16 05/10/24 Hgb 14.7 g/dL (12.0-15.0) 05/10/24 09:16 05/10/24 Hct 45.9 % (37-47) 05/10/24 09:16 05/10/24 Plt Count 241 K/mm3 (150-450) 05/10/24 09:16 05/10/24 CHEMISTRY Potassium 4.0 mmol/L (3.3-5.1) 05/10/24 09:16 05/10/24 Sodium 137 mmol/L (133-145) 05/10/24 09:16 05/10/24 Magnesium 2.1 mg/dL (1.6-2.6) 08/11/23 09:16 08/11/23 BUN 9 mg/dL (4-19) 05/10/24 09:16 05/10/24 Creatinine 0.65 mg/dL (0.70-1.20) L 05/10/24 09:16 Glucose 114 mg/dL (70-99) H 05/10/24 09:16 05/10/24 TSH 2.73 uIU/mL (0.358-3.74) 08/11/23 09:16 COAG PT 12.5 SECONDS (11.7-14.9) 04/14/20 08:13 Pre-Assessment Diagnosis/Proposed Procedure Planned Operative Procedure(s): CARPAL METACARPAL ARTHROPLASTY, TRAPEZIECTOMY, LIGAMENT RECONSTRUCTION, TENDON INTERPOSITION Anesthesia History Anesthesia History - paymaster of purses: Anesthesia History - paymaster of purses Hx Hospitalization No 05/12/24 11:05 Any Problems With Anesthesia No 05/12/24 11:05 Cholinesterase deficiency No 05/12/24 11:05 You/Your Family Experience No 05/12/24 11:05 fever (hyperthermia) with Relationship Recent Exposure to Contagious No 05/27/24 10:37 Disease Does patient have nerve No 05/12/24 11:05 stimulator Patient instructed to have device shut off --Does patient have Pacemaker No 05/27/24 10:40 or ICD? When Was Last Pacemaker Check QUESTION #4 FULL TEXT: You/Your Family Experience fever (hyperthermia) with Anesthesia Last Oral Intake Last Oral intake: Last Oral Intake NPO since 22:00 05/27/24 10:40 Meds taken in AM with sips of Yes 05/27/24 10:40 water? Meds patient instructed to take am of surgery PONV PONV - paymaster of purses: PONV - paymaster of purses Female Yes 05/12/24 11:05 HX of Motion Sickness Yes 05/12/24 11:05 HX of N/V After Surgery No 05/12/24 11:05 Non-Smoker Yes 05/12/24 11:05 Duration of Surgery greater Yes 05/12/24 11:05 than 60 minutes Number of Risk Factors 4 05/12/24 11:05 PONV Score Severe Risk 05/12/24 11:05 Height & Weight Height & Weight: Anesthesia: Height & Weight Height 5 ft 10 in 05/27/24 10:40 Weight: 113.852 kg 05/27/24 10:40 Body Mass Index (BMI) 36.0 05/27/24 10:40 Respiratory Assessment Respiratory Assessment - paymaster of purses: Respiratory Tract Infection Hx - paymaster of purses Hx Respiratory Tract Infection No 05/12/24 11:05 STOP Sleep Apnea STOP Sleep Apnea - paymaster of purses: STOP Sleep Apnea - paymaster of purses Hx Hypertension Yes: CONTROLLED WITH MEDS 05/12/24 11:05 Hx Sleep Apnea No 05/12/24 11:05 CPAP BIPAP Do you snore loudly (louder No 05/12/24 11:05 than talking or can be heard Do you often feel tired/ No 05/12/24 11:05 fatigued/ sleepy during daytime? Has anyone observed you stop No 05/12/24 11:05 breathing during sleep? STOP Results Negative 05/12/24 11:05 QUESTION #5 FULL TEXT : Do you snore loudly (louder than talking or can be heard through closeddoors)? 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 Specify any problems Hx of Preganancy in last 3 No 05/12/24 11:05 Months Nurse Filling Out Transfusion [email or web address] 05/12/24 11:05 & Questions: Date: 05/12/24 05/12/24 11:05 Time: 11:08 05/12/24 11:05 Patient unable to answer at this time (ie. confused, unrespo /Reproduction History /Reproductive History - paymaster of purses: /Reproductive Hx- paymaster of purses Hx Now Gestational Age (in weeks): EDC: Hx Hx Para Hx Section SAB No 02/20/21 08:22 Active Medications Active Medications: Current Medications Generic Name Dose Route Start Last Admin Trade Name Freq PRN Reason Stop Dose Admin Cefazolin Sodium 2 gm/ N/A 20 mls @ 400 mls/hr 05/27/24 12:25 IV 05/27/24 12:27 PREOP ONE Sodium Chloride 1,000 mls @ 15 mls/hr 05/27/24 10:25 05/27/24 10:56 IV 06/01/24 23:44 15 mls/hr .Q48H VALERIE Administration PFSH Medical History History of steroid therapy History of Holter monitoring Cardiology follow-up encounter Wears glasses Wears dentures Arthritis Bladder disease Pulmonary embolism High cholesterol Restless legs Back pain History of IBS History of Crohn's disease Gastric reflux Former smoker Leg cramps History of pain when walking Hypertension History of stress test Hx of echocardiogram History of atrial fibrillation History of trigger finger Wide-complex tachycardia (04/27/20) COVID-19 virus detected (01/24/20) Obesity Lumbar stenosis without neurogenic claudication Essential (primary) hypertension History of pulmonary embolus (PE) (04/09/18) Thyroid goiter History of meningioma of the brain Crohn disease Anxiety and depression Shortness of breath Palpitations Hyperlipidemia Paroxysmal atrial fibrillation Home Medications ?Medication ?Instructions ?Recorded ?Last Taken ?Type oxycodone-acetaminophen 5 mg-325 1 tab PO Q4H PRN Pain 07/02/17 04/08/18 22:00 History mg tablet pantoprazole 40 mg tablet,delayed 40 mg PO DAILY 10/1305/27/24 07:30 History release (Protonix) ropinirole 0.5 mg tablet 0.5 mg PO BID 10/13/1805/26 History cephalexin 250 mg tablet 250 mg PO DAILY 09/23/19 History cyclobenzaprine 10 mg tablet 10 mg PO PRN PRN MUSCLE R ELAXANT 09/23/19 Unknown History hydrochlorothiazide 25 mg tablet 25 mg PO DAILY Unknown History latanoprost 0.005 % eye drops 1 drp EACH EYE QHS 04/13 Unknown History ropinirole 1 mg tablet 1 mg PO QHS 02/04/21 03/19/2 5 History aspirin 81 mg tablet,delayed 81 mg PO QHS 08/24/20 History release promethazine 25 mg tablet 25 mg PO Q6H PRN Nausea 08/08 09/27 Unknown History ustekinumab 90 mg/mL subcutaneous 90 mg subcut .Q2MO 0 08/24/20 Unknown History syringe (Stelara) bupropion HCl 150 mg tablet,12 hr 150 mg PO QAM 05/26/24 History sustained-release (Wellbutrin SR) sotalol 80 mg tablet 80 mg PO BID #180 TABLETS 05/27/24 07:30 Rx gabapentin 400 mg capsule 400 mg PO TID 05/12/2405/27 07:30 History Allergy/AdvReac Type Severity Reaction Status Date / Time prednisone Allergy Itching Verified 05/27/24 10:34 hydrocodone (From Vicodin) AdvReac Severe GI upset Verified 05/27/24 10:34 propoxyphene (From AdvReac Severe GI upset Verified 05/27/24 10:34 Darvocet-N) cortisone AdvReac Intermediate Unknown Verified 05/27/24 10:34 Family History Mother CAD (coronary artery disease) Myocardial infarction Father Hypertension Brother CAD (coronary artery disease) Surgical History History of cystoscopy History of tonsillectomy and adenoidectomy Hx laparoscopic cholecystectomy History of carpal tunnel surgery of right wrist Hx of bilateral breast reduction surgery History of back surgery (04/2020) History of lobectomy of thyroid Hx of craniotomy Social History Smoking Status: Former smoker alcohol intake: never substance use type: does not use caffeine: Yes Type: carbonated beverages Number of servings: 2 what type of physical activity do you participate in: walking frequency: 3-4 times per week duration: 30-45 minutes/day seatbelt use: always do you feel safe at home: Yes Review of Systems (Anesthesia) ROS Narrative System reviewed and no additional complaints, except as documented. 05/27/24 1117 hayley RICK> Date _ Tom Madrid Signature: Date CC: ~ Signed [facility]03-14-2025 Hospital Discharge instructionsAmbulatory Orders* 12 Lead EKG [[facility]] Time Frame: 05/21/24, Location: None Selected [facility] Work Phone: [phone] 950-369204-04-2022 Hospital Discharge instructions Patient Education 06/11/2021 15:45:44 1-SDS Discharge Instructions Template (12/2017)(CUSTOM) [facility] SAME DAY SURGERY DISCHARGE INSTRUCTIONS PLEASE FOLLOW THE INSTRUCTIONS BELOW MARKED WITH AN X: _x__ Regular Diet: Start with clear liquids, then soup and crackers and gradually add other foods. _x__ Drink extra fluids. ___ Special Diet Instructions: ___ ACTIVITY: _x__ Avoid stress to suture line. Since you have had an anesthetic, it would be advisable not to drive, drink alcohol, or make major decisions over the next 24 hours. You may require more rest tonight and tomorrow. ___ May resume regular activity as tolerated. ___ Restrict activity as follows: ___ ___ Walk Only ___ ___ Do not go up and down stairs. ___ Do not ride in car until ___ ___ Do not drive car. ___ Do not have sexual intercourse. ___ No heavy lifting, pushing or straining. _x__ Other: _Follow all instructions provided to you by Dr. Hooks.__ BATHING/SHOWERING: ___ Sponge bathe until office visit. ___ Sitting in tub of warm water may relieve discomfort. ___ May tub bathe _x__ May shower ___ On day after surgery sit in tub of warm water to soak off dressing. DRESSING: ___ Keep operative area dry and clean for ___ _x__ Check the operative area for signs of bleeding. Apply pressure to the bleeding site if necessary and call your physician. ___ Change dressing as necessary using sterile dressing material or bandaid. ___ Reinforce dressing as necessary. ___ Change and care for wound as follows: ___ ___ Wear bra for ___ days following breast surgery for comfort. ___ Change drip pad as needed. ___ Wear scrotal support for comfort. WATCH FOR SIGNS OF INFECTION: (Usually appears 36-48 hours after surgery) Increased temperature (101 degrees Fahrenheit or higher) Redness or swelling Increased pain Foul odor or drainage. If you have any questions, please call your doctor at the number listed on your follow up instructions. Follow all instructions given to you by your physician. Please complete and return the survey you will be receiving in the mail to help us better serve our patients. Form: [id number]) R: 06/1606/11/2021 15:44:54 Total Laparoscopic Hysterectomy, Care After Total Laparoscopic Hysterectomy, Care After This sheet gives you information about how to care for yourself after your procedure. Your health care provider may also give you more specific instructions. If you have problems or questions, contact your health care provider. What can I expect after the procedure? After the procedure, it is common to have: Pain and bruising around your incisions. A sore throat, if a breathing tube was used during surgery. Fatigue. Poor appetite. Less interest in sex. If your ovaries were also removed, it is also common to have symptoms of menopause such as hot flashes, night sweats, and lack of sleep (insomnia). Follow these instructions at home: Bathing Do not take baths, swim, or use a hot tub until your health care provider approves. You may need toonly take showers for 2 3 weeks. Keep your bandage (dressing) dry until your health care provider says it can be removed. Incision care Follow instructions from your health care provider about how to take care of your incisions. Make sure you: ?Wash your hands with soap and water before you change your dressing. If soap and water are not available, use hand continuity manager. ?Change your dressing as told by your health care provider. ?Leave stitches (sutures), skin glue, or adhesive strips in place. These skin closures may need to stay in place for 2 weeks or longer. If adhesive strip edges start to loosen and curl up, you may trim the loose edges. Do not remove adhesive strips completely unless your health care provider tells you to do that. Check your incision area every day for signs of infection. Check for: ?Redness, swelling, or pain. ?Fluid or blood. ?Warmth. ?Pus or a bad smell. Activity Get plenty of rest and sleep. Do not lift anything that is heavier than 10 lbs (4.5 kg) for one month after surgery, or as long as told by your health care provider. Do not drive or use heavy machinery while taking prescription pain medicine. Do not drive for 24 hours if you were given a medicine to help you relax (sedative). Return to your normal activities as told by your health care provider. Ask your health care provider what activities are safe for you. Lifestyle Do not use any products that contain nicotine or tobacco, such as cigarettes and e-cigarettes. These can delay healing. If you need help quitting, ask your health care provider. Do not drink alcohol until your health care provider approves. General instructions Do not douche, use tampons, or have sex for at least 6 weeks, or as told by your health care provider. Take fhts-dki-tweseyw and prescription medicines only as told by your health care provider. To monitor yourself for a fever, take your temperature at least once a day during recovery. If you struggle with physical or emotional changes after your procedure, speak with your health care provider or a therapist. To prevent or treat constipation while you are taking prescription pain medicine, your health care provider may recommend that you: ?Drink enough fluid to keep your urine clear or pale yellow. ?Take [id number] or prescription medicines. ?Eat foods that are high in fiber, such as fresh fruits and vegetables, whole grains, and beans. ?Limit foods that are high in fat and processed sugars, such as fried and sweet foods. Keep all follow-up visits as told by your health care provider. This is important. Contact a health care provider if: You have chills or a fever. You have redness, swelling, or pain around an incision. You have fluid or blood coming from an incision. Your incision feels warm to the touch. You have pus or a bad smell coming from an incision. An incision breaks open. You feel dizzy or light-headed. You have pain or bleeding when you urinate. You have diarrhea, nausea, or vomiting that does not go away. You have abnormal vaginal discharge. You have a rash. You have pain that does not get better with medicine. Get help right away if: You have a fever and your symptoms suddenly get worse. You have severe abdominal pain. You have chest pain. You have shortness of breath. You faint. You have pain, swelling, or redness on your leg. You have heavy vaginal bleeding with blood clots. Summary After the procedure it is common to have abdominal pain. Your provider will give you medication forthis. Do not take baths, swim, or use a hot tub until your health care provider approves. Do not lift anything that is heavier than 10 lbs (4.5 kg) for one month after surgery, or as long as told by your health care provider. Notify your provider if you have any signs or symptoms of infection after the procedure. This information is not intended to replace advice given to you by your health care provider. Make sure you discuss any questions you have with your health care provider. Document Released: 12/15/2013 Document Revised: 02/06/2018 Document Reviewed: 05/07/2017 [employer] Patient Education 2020 [email or web address]. Follow Up Care 04/25/2021 12:00:50 With:GERARDO HOOKS MD, ANIMAL TRAINER SUPERVISOR-ONC Address: When: Unknown Comments:Follow-up as scheduled [facility] Consult note Author Gatito Jiménez [facility] Note Date/Time May 27, 2024 1:4 7pm [facility] Medical Records Department [address] [place] [address] Anesthesia Postop Eval I 05/27/24 1346 MR#: [id number] Acct: [id number] Name: ABI REYNA Rep #:[id number] : 1955 68 From: Gatito mata CRNA PCP: Dr. Ottoniel Page, DO Status:REG SDC Y Race: C Location: [place] [address] Anesthesia: Postop Eval I Current Vital Signs Temperature: 98.6 F Pulse Rate: 79 Blood Pressure: 118/61 Respiratory Rate: 22 Pulse Ox: 95 Oxygen Delivery Method: Room Air Assessment Airway patent: Yes Spontaneous unlabored respirations: Yes Mental status: Awake and Calm nausea: No Vomiting: No Anesthesia Complication: No Fluid Hydration Crystalloid volume administer (ml): 800 Total IV fluid infused: 800 Progress Note Anesthesia document: Postop Eval 1 completed: Yes 05/27/24 1347 <Electronically signed by Gatito motrensen STRUCTURAL STEEL PAINTER> Date _ Gatito Jiménez STRUCTURAL STEEL PAINTER Cosigner Signature: Date CC: ~ Signed [facility] Work Phone: Consult note Author Zuri Copeland [facility] Note Date/Time May 27, 2024 3:0 5pm [facility] Medical Records Department [address] [place] [address] Anesthesia Postop Eval II 05/27/24 1441 MR#: [id number] Acct: [id number] Name: ABI REYNA Rep #:[id number] : 1955 68 From: Zuri Copeland PCP: Dr. Ottoniel Page, DO Status:REG SD Y Race: C Location: [place] [address] Anesthesia Postop Eval I Sum Postop Eval Completion status Anesthesia document: Postop Eval 1 completed: Yes Anesthesia Postop Eval I Summary Anesthesia Postop Eval I Summary: Anesthesia Postop Eval I: Assessment Summary Airway patent Yes 05/27/24 13:47 STRUCTURAL STEEL PAINTER.[email or web address] Spontaneous unlabored Yes 05/27/24 13:47 STRUCTURAL STEEL PAINTER.BHOS respirations Mental status Awake,Calm 05/27/24 13:47 STRUCTURAL STEEL PAINTER.BHOS nausea No 05/27/24 13:47 STRUCTURAL STEEL PAINTER.BHOS Vomiting No 05/27/24 13:47 STRUCTURAL STEEL PAINTER.BHOS Anesthesia Postop Eval I: Fluid Summary Crystalloid volume administer 800 05/27/24 13:47 STRUCTURAL STEEL PAINTER.BHOS (ml) Colloids volume administered ( ml) Blood Product volume administered (ml) Total IV fluid infused 800 05/27/24 13:47 STRUCTURAL STEEL PAINTER.[email or web address] Anesthesia Postop Eval I: Summary Notes Anesthesia Complication No 05/27/24 13:47 STRUCTURAL STEEL PAINTER.[email or web address] Anesthesia Complication Comment: Post-operative progress note Anesthesia: Postop Eval II Evaluation Mental status: Awake Pain Level: 1 nausea: No Vomiting: No 05/27/24 1441 <Electronically signed by Zuri salinas> Date _ Zuri Madrid Signature: Date CC: ~ Signed [facility] Work Phone: Evaluation + Plan note Future Appointments [facility] Evaluation + Plan note Future Appointments Appointment Date:06/27/2021 11:00:00 AM Scheduled Provider:GERARDO HOOKS MD Location:[facility] [employer] Appointment Type:SO OV Post Op [facility] Evaluation + Plan note Future Appointments Appointment Date:07/25/2021 11:30:00 AM Scheduled Provider:GEARRDO HOOKS MD Location:[facility] [employer] Appointment Type:SO OV Post Op [facility] evaluation note* Diagnosis Onset Date Resolution Status Essential (primary) hypertension chronic Paroxysmal atrial fibrillation chronic [facility] Work Phone: Evaluation noteNo assessment information available [facility] Work Phone: evaluation note* Diagnosis Onset Date Resolution Status Admit Date Essential (primary) hypertension chr onic August 10, 2024 8:20am Paroxysmal atrial fibrillation chron ic August 10, 2024 8:20am [facility] Work Phone: Hospital course Narrative No data available for this section [facility] Hospital Discharge instructions No data available for this section [facility] Progress note No data available for this section [facility] Reason for referral (narrative)[facility] Summary Purpose Family History No Family History Records Found Relationship Condition Age at Onset Recorded Date/T blanca mother Coronary artery disease Unknown Myocardial infarction Unknown father Hypertension Unknown brother Coronary artery disease Unknown Advance Directives No Advanced Directives Records Found Advance Directive Response Recorded Date/ Time Living Will Yes February 20 9:22am Power of Commercial Artist Lettering Yes February 20, 2021 9:22am Advance Directive Response Recorded Date/ Time Living Will Yes February 20 8:22am Power of Commercial Artist Lettering Yes February 20, 2021 8:22am Advance Directive Response Recorded Date/ Time Living Will Yes February 20 9:22am Do you have a Healthcare Pow er of Commercial Artist Lettering? Yes February 20, 2021 9:22am Living Will Yes May 12, 2024 12:05pm Do you have a Healthcare Pow er of Commercial Artist Lettering? Yes May 12, 2024 12:05pm Name of Medical Power of Commercial Artist Lettering - ELLA REYNA May 12, 2024 12:05pm Chief Complaint and Reason for Visit Chief Complaint 9 M FU Reason for Visit Essential (primary) hypertension Paroxysmal atrial fibrillation Chief Complaint 9 M FU PROMETHEUS TEST Reason for Visit Essential (primary) hypertension Paroxysmal atrial fibrillation Chief Complaint 9 M FU PROMETHEUS TEST ENTEROGRAPHY CROHNS Reason for Visit Essential (primary) hypertension Paroxysmal atrial fibrillation Chief Complaint ENTEROGRAPHY CROHNS PREOP Chief Complaint PREOP PREOP S/O- Chief Complaint 1 Y FU 2 DRS/ 2 ORDERS- S/O Reason for Visit Essential (primary) hypertension Paroxysmal atrial fibrillation Chief Complaint 1 Y FU 2 DRS/ 2 ORDERS- S/O Urinary tract infection, site not specified Reason for Visit Essential (primary) hypertension Paroxysmal atrial fibrillation Chief Complaint 1 Y FU 2 DRS/ 2 ORDERS- S/O Urinary tract infection, site not specified LAB WORK Reason for Visit Essential (primary) hypertension Paroxysmal atrial fibrillation Chief Complaint LAB WORK B/L VENOUS INSUFFICIENCY Chief Complaint S/O- NEEDED Chief Complaint Admit Date LUMBAR AND RIGHT HIP April 20, 2024 4:21pm S/O- NEEDED May 10, 2024 8:58 am PREOP May 21, 2024 7:5 3am Carpal Metacarpal Arthroplasty, Trapezie ctomy, Li May 27, 2024 10:05am Chief Complaint Admit Date LUMBAR AND RIGHT HIP April 20, 2024 4:21pm S/O- NEEDED May 10, 2024 8:58 am PREOP May 21, 2024 7:5 3am Carpal Metacarpal Arthroplasty, Trapezie ctomy, Li May 27, 2024 10:05am S/P WRIST SURGERY,[facility] JT RT FLORES Parker FAX July 20, 2024 11:30am SCREENING August 04, 2024 8:11a m Chief Complaint Admit Date LUMBAR AND RIGHT HIP April 20, 2024 4:21pm S/O- NEEDED May 10, 2024 8:58 am PREOP May 21, 2024 7:5 3am Carpal Metacarpal Arthroplasty, Trapezie ctomy, Li May 27, 2024 10:05am S/P WRIST SURGERY,[facility] JT RT FLORES Parker FAX July 20, 2024 11:30am SCREENING August 04, 2024 8:11a m 1 Y FU August 10, 2024 8:20a m Reason for Visit Admit Date Essential (primary) hypertension August 8:20am Paroxysmal atrial fibrillation August 10, 2024 8:20am Additional Source Comments INFORMATION SOURCE (unrecogn ized section and content) DATE CREATED AUTHOR 09/26/2018 [facility] DATE CREATED AUTHOR AUTHOR'S ORGANIZ ATION 11/17/2021 [facility] ([place]) DATE CREATED AUTHOR AUTHOR'S ORGANIZ ATION 08/11/2024 [facility] y Hospital Care Team (unrecognized sect ion and content) Team Status: Active Member Role Status Dates Dr. Ottoniel Page DO Family Provider Active Dr. Ottoniel Page , Primary Care Provider Active Team Status: Active Member Role Status Dates Dr. Ottoniel Page DO Primary Care Provider Active Dr. Andrew Keane MD Attending Provider Active KIMBERLY Resendez Referring Provider Active Team Status: Inactive Member Role Status Dates Dr. Ottoniel Madison , DO Primary Care Provider Active KIMBERLY Resendez Attending Provider, Referring Provide r Active Team Status: Inactive Member Role Status Dates Dr. Ottoniel Page DO Primary Care Provider Active Dr. Facundo Kat MD Attending Provider, Referring Provider Active Team Status: Inactive Member Role Status Dates Dr. Ottoniel Page DO Primary Care Provider Active Dr. Breanne Vinson DO Attending Provider Active Team Status: Inactive Member Role Status Dates Dr. Ottoniel Page DO Primary Care Provider, Referrin g Provider Active Janeth HARRIS, PA Attending Provider Active Team Status: Inactive Member Role Status Dates Dr. Ottoniel Page DO Primary Care Provider Active Dr. Facundo Kat MD Attending Provider, Referring Provider Active Fiorella Vidal [employer] Other Provider Active Team Status: Inactive Member Role Status Dates Dr. Ottoniel Page DO Primary Care Provider Active Dr. Kayleen Murphy MD Attending Provider, Referring P rovider Active Team Status: Inactive Member Role Status Dates Dr. Ottoniel Page DO Primary Care Prov ider, Attending Provider, Referring Provider Active Team Status: Active Member Role Status Dates Dr. Ottoniel Page DO Primary Care Provider Active Dr. Wilmer Erazo MD Attending Provider Active Team Status: Active Member Role Status Dates Dr. Ottoniel Page DO Primary Care Provider Active Dr. Facundo Kat MD Attending Provider, Referring Provider Active Team Status: Active Member Role Status Dates Dr. Ottoniel Page DO Primary Care Provider Active Team Status: Inactive Member Role Status Dates Dr. Ottoniel Page DO Primary Care Provider Active Start: April 20, 2024 End: April 20, 2024 NP. Daly Del Rio Attending Provider Active Star t: April 20, 2024 End: April 20, 2024 NP. Daly Del Rio Referring Provider Active Star t: April 20, 2024 End: April 20, 2024 Team Status: Active Member Role Status Dates Dr. Ottoniel Page DO Primary Care Provider Active Start: May 10, 2024 Dr. Facundo Kat MD Attending Provider Active Start: May 10, 2024 Dr. Facundo Kat MD Referring Provider Active Start: May 10, 2024 Team Status: Active Member Role Status Dates Dr. Ottoniel Page DO Primary Care Provider Active Start: May 21, 2024 End: May 21, 2024 Dr. Daphne Manuel MD Attending Provider Activ e Start: May 21, 2024 End: May 21, 2024 Dr. Bruno Avila DO Referring Provider Active Start: May 21, 2024 End: May 21, 2024 Team Status: Inactive Member Role Status Dates Dr. Ottoniel Page DO Primary Care Provider Active Start: May 27, 2024 End: May 27, 2024 Dr. Bruno Avila DO Attending Provider Active Start: May 27, 2024 End: May 27, 2024 Dr. Bruno Avila DO Referring Provider Active Start: May 27, 2024 End: May 27, 2024 KIMBERLY Resendez Other Provider Active Start: [facility] 2024 End: May 27, 2024 Team Status: Inactive Member Role Status Dates Dr. Ottoniel Page DO Primary Care Provider Active Start: May 10, 2024 End: May 10, 2024 Dr. Facundo Kat MD Attending Provider Active Start: May 10, 2024 End: May 10, 2024 Dr. Facundo Kat MD Referring Provider Active Start: May 10, 2024 End: May 10, 2024 Team Status: Active Member Role Status Dates Dr. Ottoniel Page DO Primary Care Provider Active Start: July 20, 2024 Dr. Bruno Avila DO Attending Provider Active Start: July 20, 2024 Dr. Bruno Avila DO Referring Provider Active Start: July 20, 2024 Team Status: Inactive Member Role Status Dates Dr. Ottoniel Page DO Primary Care Provider Active Start: August 04, 2024 End: August 04, 2024 Dr. Ottoniel Page DO Attending Provider Active Start: August 04, 2024 End: August 04, 2024 Dr. Ottoniel Page DO Referring Provider Active Start: August 04, 2024 End: August 04, 2024 Team Status: Inactive Member Role Status Dates Dr. Ottoniel Page DO Primary Care Provider Active Start: August 10, 2024 End: August 10, 2024 Dr. Ottoniel Page DO Referring Provider Active Start: August 10, 2024 End: August 10, 2024 Janeth Wilcox PA, PA Attending Provider Active Start: August 10, 2024 End: August 10, 2024 Goals (unrecognized section and content) Goals may be documented in a n alternate section FOR RECORDS PERTAINING TO PATIENTS WHO ARE OR HAVE BEEN ENROLLED IN A CHEMICAL DEPENDENCY/SUBSTANCEABUSE PROGRAM, SOME INFORMATION MAY BE OMITTED. This clinical summary was aggregated from multiple sources. Caution should be exercised in using it in the provision of clinical care. This summary normalizes information from multiple sources, and as a consequence, information in this document may materially change the coding, format and clinical context of patient data. In addition, data may be omitted in some cases. CLINICAL DECISIONS SHOULD BE BASED ON THE PRIMARY CLINICAL RECORDS. [facility]. provides no warranty or guarantee of the accuracy or completeness of information in this document.
[2024-08-15 02:58] VITALS: BP 102/55; PULSE 75; RESP 16; TEMP 36.8; O2SAT 95
== END 2024-08-15 03:08 | disposition home or self-care (01) ==
PROVIDERS: Emergency Provider Emergency Medicine; PCP Family Medicine; Visit Provider Emergency Medicine
DX: I48.0 Paroxysmal atrial fibrillation (principal); E78.00 Pure hypercholesterolemia, unspecified; R00.2 Palpitations; I10 Essential (primary) hypertension; Z79.82 Long term (current) use of aspirin; Z79.899 Other long term (current) drug therapy; Z87.891 Personal history of nicotine dependence; Z86.16 Personal history of COVID-19; Z86.711 Personal history of pulmonary embolism
CPT/HCPCS: 80048; 85025; 85610; 85730; 93005; 99283; A4216

== ENCOUNTER 2024-08-17 19:05 | Emergency (ER) | payer OTHER, MEDICARE, SELFPAY ==
[2024-08-17] VITALS (7 sets, daily range): BP systolic 130–163; BP diastolic 67–87; PULSE 77–80; RESP 15–28; TEMP 36.6; O2SAT 95–99; BMI 36.8
--- NOTE | 2024-08-17 19:26 | ED.RN ---
1919: PROVIDER Gray EDWARDS CONSULTED FOR PT. IN TRIAGE
--- NOTE | 2024-08-17 19:28 | EKG12_ITS ---
Test Reason : STROKE Blood Pressure : */* mmHG Vent. Rate : 83 BPM Atrial Rate : 83 BPM P-R Int : 198 ms QRS Dur : 90 ms QT Int : 392 ms P-R-T Axes : 45 19 20 degrees QTcB Int : 460 ms Normal sinus rhythm Cannot rule out Anterior infarct , age undetermined Abnormal ECG Confirmed by Chavez Schroeder ([id number]), newspaper editor JOSELUIS MELLO ([id number]) on 08/19/2024 6:08:30 AM Referred By: Confirmed By: Chavez Schroeder
--- NOTE | 2024-08-17 19:28 | CT_ITS ---
PROCEDURE: STROKE BRAIN/HEAD WITHOUT CONT 08/17/2024 REASON FOR EXAM: NEURO DEFICIT, ACUTE, STROKE SUSPECTED TECHNIQUE: Head CT without intravenous contrast. Coronal and Sagittal reconstruction series were provided. One or more dose reduction techniques were used (e.g., Automated exposure control, adjustment of the mA and/or kV according to patient size, use of iterative reconstruction technique. RADIATION DOSE SUMMARY: CTDlvol: 45.0 mGy DLP: 864 mGycm COMPARISON: CT head on 05/15/2018 FINDINGS: Brain: There is an ovoid hyperdense intraparenchymal hemorrhage in the left parietal lobe measuring 1.3 x 2.5 x 2.6 cm (AP x TR x CC). No associated midline shift. Angela-white differentiation is maintained. CSF Spaces: No hydrocephalus. Mild generalized cerebral atrophy Sinuses/Mastoids: Clear at visualized levels Bones: Postoperative changes of the left parietal calvarium. Status post bilateral cataract extraction. CT/STROKE Brain/Head without Cont IMPRESSION: Left parietal intraparenchymal hemorrhage measuring up to 2.6 cm in size. Tim mmend Neurosurgical consultation. Red Alert: Left parietal intraparenchymal hemorrhage The critical information above was relayed directly by me by telephone to Young Venegas on 08/17/2024 at 7:50 pm with readback verification. Reading Location: [id number]
--- NOTE | 2024-08-17 19:29 | ED.VIS.STROK ---
HPI History of Present Illness Chief Complaint: Stroke Alert Detail of Chief Complaint: Numbness right side of her body that started at 1630. Informant: patient Onset/Context/Timing Onset: Today Quality and Location: Positive for Right Face Paresthesia, Right Arm Parasthesia and Right Leg Parasthesia Onset: 1630 today Current Severity: Mild Maximum Severity: Mild Worsened by: Nothing Relieved by: Nothing Associated Symptoms Associated Symptoms: Negative for Headache, Nausea, Vomiting or Chest Pain Narrative Narrative: Patient presents with right-sided paresthesia. She contacted her travel counselor automobile [employer] Dr. Henok Schroeder who instructed her to come in several hours ago. She is on a baby aspirin. She is on no other antithrombotic or anticoagulant. She was told by Dr. Chavez Schroeder to call 911. I was asked to see patient in triage. Patient has right-sided altered sensation. She has no other complaints or symptoms. Apparently she had a recent intracranial procedure. 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 Prior similar symptoms: No Recent Illness/Hospitalization: No PFSH PFSH Medical History (Updated 08/17/24 @ 20:10 by Ines Deluca) Stroke/cerebrovascular accident History of steroid therapy History of Holter monitoring Cardiology follow-up encounter Wears glasses Wears dentures Arthritis Bladder disease Pulmonary embolism High cholesterol Restless legs Back pain History of IBS History of Crohn's disease Gastric reflux Former smoker Leg cramps History of pain when walking Hypertension History of stress test Hx of echocardiogram History of atrial fibrillation History of trigger finger Wide-complex tachycardia (04/27/20) COVID-19 virus detected (01/24/20) Obesity Lumbar stenosis without neurogenic claudication Essential (primary) hypertension History of pulmonary embolus (PE) (04/09/18) Thyroid goiter History of meningioma of the brain Crohn disease Anxiety and depression Shortness of breath Palpitations Hyperlipidemia Paroxysmal atrial fibrillation Home Medications ?Medication ?Instructions ?Recorded ?Last Taken ?Type oxycodone-acetaminophen 5 mg-325 1 tab PO Q4H PRN Pain 07/02/17 04/08/18 22:00 History mg tablet pantoprazole 40 mg tablet,delayed 40 mg PO DAILY 10/13/18 05/27/24 07:30 History release (Protonix) cephalexin 250 mg tablet 250 mg PO DAILY 09/23/19 05/26/24 History cyclobenzaprine 10 mg tablet 10 mg PO PRN PRN MUSCLE RELAXANT 09/23/19 Unknown History hydrochlorothiazide 25 mg tablet 25 mg PO DAILY 04/13/20 Unknown History latanoprost 0.005 % eye drops 1 drp EACH EYE QHS 04/13/20 Unknown History aspirin 81 mg tablet,delayed 81 mg PO QHS 08/24/20 05/26/24 History release promethazine 25 mg tablet 25 mg PO Q6H PRN Nausea 08/24/20 Unknown History ustekinumab 90 mg/mL subcutaneous 90 mg subcut .Q2MO 08/24/20 Unknown History syringe (Stelara) gabapentin 400 mg capsule 400 mg PO TID 05/12/24 05/27/24 07:30 History betamethasone dipropionate 0.05 % 1 applic topical QDAY PRN skin 08/10/24 Unknown History topical ointment irritation bupropion HCl 150 mg 24 hr tablet, 150 mg PO QDAY 08/10/24 Unknown History extended release clobetasol 0.05 % topical cream 1 applic topical BID 08/10/24 Unknown History clotrimazole 1 % topical cream 1 applic topical BID 08/10/24 Unknown History ferrous sulfate 325 mg (65 mg 325 mg PO QDAY 08/10/24 Unknown History iron) tablet,delayed release hyoscyamine sulfate 0.125 mg 0.125 mg PO Q6 PRN nausea/vomiting 08/10/24 Unknown History disintegrating tablet primidone 50 mg tablet 100 mg PO BID 08/10/24 Unknown History ropinirole 0.5 mg tablet 0.5 mg PO .COMPLEX 08/10/24 Unknown History timolol maleate 0.5 % eye drops 1 drp ophthalmic (eye) DAILY 08/10/24 Unknown History sotalol 80 mg tablet 80 mg PO BID #180 TABLETS 08/17/24 Unknown Rx Allergy/AdvReac Type Severity Reaction Status Date / Time prednisone Allergy Itching Verified 08/17/24 19:11 hydrocodone (From Vicodin) AdvReac Severe GI upset Verified 08/17/24 19:11 propoxyphene (From AdvReac Severe GI upset Verified 08/17/24 19:11 Darvocet-N) cortisone AdvReac Intermediate Unknown Verified 08/17/24 19:11 Family History Mother CAD (coronary artery disease) Myocardial infarction Father Hypertension Brother CAD (coronary artery disease) Surgical History History of thumb surgery (~05/2024) History of cystoscopy History of tonsillectomy and adenoidectomy Hx laparoscopic cholecystectomy History of carpal tunnel surgery of right wrist Hx of bilateral breast reduction surgery History of back surgery (04/2020) History of lobectomy of thyroid Hx of craniotomy Social History Smoking Status: Former smoker alcohol intake: never substance use type: does not use caffeine: Yes Type: carbonated beverages Number of servings: 2 what type of physical activity do you participate in: walking frequency: 3-4 times per week duration: 30-45 minutes/day seatbelt use: always do you feel safe at home: Yes ROS ROS ED Constitutional Constitutional ED: Denies chills, fever(s), subjective, sweats or weakness Eyes Eyes: Denies blurry vision or change in vision ENT ENT ED: Denies ear pain, rhinorrhea or sore throat Cardiovascular Cardiovascular: Denies chest pain, palpitations or racing heartbeat Respiratory/Chest Respiratory/Chest: Denies cough, dyspnea or dyspnea on exertion Gastrointestinal Gastrointestinal: Denies abdominal pain, nausea or vomiting Genitourinary Genitourinary ED: Denies dysuria, hematuria or urinary frequency Musculoskeletal Musculoskeletal: Denies arthralgias, myalgias or neck pain Integumentary Denies rash Neurologic Neurologic: Reports paresthesias RUE and RLE; Denies headache(s) or weakness Psychiatric Psychiatric: Denies anxiety or depression Hematologic/Lymphatic Hematologic/Lymphatic: Denies easy bleeding or easy bruising EXAM Physical Exam Const Vital Signs: 08/17/24 19:11 08/17/24 19:39 08/17/24 19:43 Temperature 98 F Temperature Source Oral Pulse Rate 78 80 Respiratory Rate 18 17 Blood Pressure 135/77 H 134/77 H Blood Pressure Mean 96 96 Pulse Ox 99 97 Oxygen Delivery Method Room Air Room Air Room Air 08/17/24 19:45 08/17/24 19:58 08/17/24 20:11 Temperature Temperature Source Pulse Rate 80 79 Respiratory Rate 28 H 17 Blood Pressure 144/81 H 148/74 H Blood Pressure Mean 102 98 Pulse Ox 95 95 Oxygen Delivery Method Room Air Room Air Room Air 08/17/24 20:13 08/17/24 20:15 08/17/24 20:23 Temperature Temperature Source Pulse Rate 79 77 77 Respiratory Rate 18 15 19 H Blood Pressure 151/87 H 163/72 H 130/67 H Blood Pressure Mean 108 102 88 Pulse Ox 96 99 99 Oxygen Delivery Method Room Air Room Air Room Air 08/17/24 20:23 Temperature 98 F Temperature Source Pulse Rate 77 Respiratory Rate 19 H Blood Pressure 130/67 H Blood Pressure Mean 88 Pulse Ox 99 Oxygen Delivery Method Positive well nourished and well developed Constitutional Narrative: BMI is 36.8. General Appearance ED: well developed HEENT atraumatic Nose: other Eyes PERRL and EOMs intact bilaterally General Eye ED: Negative for pale conjunctiva or scleral icterus Neck no lymphadenopathy, supple and no JVD Chest Wall inspection of chest normal and palpation of chest normal Resp normal respiratory effort and clear to auscultation bilaterally Cardio no murmurs Rate: regular rate Rhythm: regular rhythm GI normal to inspection, nondistended, normoactive bowel sounds, soft to palpation, non-tender, non-distended and no masses Extremity normal to inspection General Extremety ED: Yes edema General Extremity: edema Neuro oriented x3, CN's II-XII intact bilaterally and No no sensory deficits noted Walden Coma Scale: document GCS findings Spontaneous Obeys Commands Oriented 15 Sensorium / Orientation: alert Speech: speech normal Gait (Neuro): normal gait Psych mental status grossly normal Skin no wounds General Skin Exam: Negative for jaundice Rashes: no rashes MDM MDM Lab Data Labs: Laboratory Results - last 24 hr 08/17/24 08/17/24 19:29 19:45 WBC 9.7 RBC 5.44 H Hgb 14.6 Hct 45.4 MCV 83.5 MCH 26.8 L MCHC 32.2 RDW Std Deviation 41.1 RDW Coeff of Laura 13.7 Plt Count 248 MPV 11.2 Immature Gran % (Auto) 0.300 Neut % (Auto) 64.8 Lymph % (Auto) 24.5 [place] % (Auto) 7.0 Eos % (Auto) 2.7 Baso % (Auto) 0.7 Absolute Neuts (auto) 6.3 Absolute Lymphs (auto) 2.38 Nucleated RBC % 0 PT 12.8 INR 1.0 APTT 23.5 L Sodium 138 Potassium 3.8 Chloride 99 Carbon Dioxide 28.2 Anion Gap 11 BUN 10 Creatinine 0.80 Estim Creat Clear Calc 91.80 Est GFR (MDRD) Non-Af 79 BUN/Creatinine Ratio 12.1 Glucose 114 H Calcium 9.7 Troponin T High Sens 17 H POC Glucose 96 Radiography Diagnostic Testing: Clinical Impression(s) from Imaging Studies Brain CT 08/17/24 19:28 IMPRESSION: Left parietal intraparenchymal hemorrhage measuring up to 2.6 cm in size. Recommend Neurosurgical consultation. Red Alert: Left parietal intraparenchymal hemorrhage The critical information above was relayed directly by me by telephone to Young Venegas on 08/17/2024 at 7:50 pm with readback verification. Reading Location: [facility] CT reveals a left posterior parietal hemorrhagic stroke that shows up on 6 cuts axial cut and is 12.4 mm anterior to posterior and 24.1 left to right in size. Management Discussion w/another healthcare provider: Geomagnetist ([facility] neurologist. He agrees with my read.) and Radiologist (Radiologist contacted me at 195. He also agreed with my read.) Critical Care Time Critical Care Time: Yes Critical care time (excluding procedures): 30-74 minutes (32), Including time spent: (History, physical, documentation, interventional rotation of CT and order set for hemorrhagic stroke.), Discussing w/Patient &/or Family/Machine Operator General (Patient and were informed that she will require transfer. She will be transferred to [facility].), Discussing w/Consultants (Spoke with [facility] neurologist. The transfer line nurse is contacting the neurosurgical attending/resident. Patient urgent transfer ED to ED for hemorrhagic stroke) and Arranging Admission or Transfer Discharge Plan Triage Chief Complaint: Stroke Alert Other Complaint: Numb/Ting ED Provider: Young Venegas Dx/Rx/DC Orders Clinical Impression: Cerebrovascular accident, hemorrhagic, Paroxysmal atrial fibrillation, Essential (primary) hypertension, Hyperlipidemia, Paresthesia of right upper and lower extremity Prescriptions: No Action oxycodone-acetaminophen 5-325 mg tablet 1 tab PO Q4H PRN (Reason: Pain) pantoprazole [Protonix] 40 mg tablet,delayed release (DR/EC) 40 mg PO DAILY ropinirole 0.5 mg tablet 0.5 mg PO .COMPLEX Rx Instructions: 0.5 mg orally; 1 qam, 2 @ 12, 2 qpm cyclobenzaprine 10 mg tablet 10 mg PO PRN PRN (Reason: MUSCLE RELAXANT) Patient Comments: take 1 tablet by mouth three times a day if needed for muscle spasm cephalexin 250 mg tablet 250 mg PO DAILY ferrous sulfate 325 mg (65 mg iron) tablet,delayed release (DR/EC) 325 mg PO QDAY primidone 50 mg tablet 100 mg PO BID hyoscyamine sulfate 0.125 mg tablet,disintegrating 0.125 mg PO Q6 PRN (Reason: nausea/vomiting) clotrimazole 1 % cream 1 applic topical BID betamethasone dipropionate 0.05 % ointment 1 applic topical QDAY PRN (Reason: skin irritation) clobetasol 0.05 % cream 1 applic topical BID bupropion HCl 150 mg tablet extended release 24 hr 150 mg PO QDAY timolol maleate 0.5 % drops 1 drp ophthalmic (eye) DAILY latanoprost 1 DROP bottle 1 drp EACH EYE QHS hydrochlorothiazide 25 MG tablet 25 mg PO DAILY aspirin 81 mg Tablet,Delayed Release (Dr/Ec) 81 mg PO QHS promethazine 25 mg Tablet 25 mg PO Q6H PRN (Reason: Nausea) ustekinumab [Stelara] 90 mg/mL Syringe 90 mg SUBCUT .Q2MO gabapentin 400 mg capsule 400 mg PO TID sotalol 80 mg tablet 80 mg PO BID Qty: 180 3RF Primary Care Provider: Matthew Wallace Referrals: Matthew Wallace DO [Primary Care Provider] - Print Language: [place] Verdean Disposition Disposition: Acute Care Hospital Discharge Location: [facility] Discharge Date/Time: 08/17/24 20:30 NIHSS NIHSS 1a. Level of Consciousness: 0 - Alert; keenly responsive 1b. LOC Questions: 0 - Answers BOTH questions correctly 1c. LOC Commands: 0 - Performs BOTH tasks correctly 2. Best Gaze: 0 - Normal 3. Visual: 0 - No visual loss 4. Facial Palsy: 0 - Normal symmetrical movements 5a. Left Arm: 0 - No drift; arm holds 90 (or 45) degrees for full 10 seconds 5b. Right Arm: 0 - No drift; arm holds 90 (or 45) degrees for full 10 seconds 6a. Left Le - No drift; leg holds 30-degree position for full 5 seconds 6b. Right Le - No drift; leg holds 30-degree position for full 5 seconds 7. Limb Ataxia: 0 - Absent 8. Sensory: 1 - [id number] sensory loss; 9. Best Language: 0 - No aphasia; normal 10. Dysarthria: 0 - Normal 11. Extinction and Inattention: 0 - No abnormality Total: 1
--- NOTE | 2024-08-17 19:42 | ED.RN ---
[facility] NOTIFIED PT. IN ROOM
[2024-08-17 19:56] LABS: Absolute Lymphocyte Count 2.38 X10^3/uL (0.83-4.51); Absolute Neutrophil Count 6.3 X10^3/uL (2.0-7.7); Basophil# 0.07 X10^3/uL; Basophil% 0.7 % (0-1); Eosinophil# 0.26 X10^3/uL; Eosinophils% 2.7 % (0-5); Hematocrit 45.4 % (37-47); Hemoglobin 14.6 g/dL (12.0-15.0); Lymphocyte # 2.38 X10^3/ul (0.83-4.51); Lymphocyte % 24.5 % (19-41); Mean Corp Hgb Conc 32.2 g/dL (32-36); Mean Corpuscular Hgb 26.8 pg (27.0-32.0); Mean Corpuscular Volume 83.5 fL (81-99); Mean Platelet Vol. 11.2 fl (6.2-12.0); Monocyte# 0.68 X10^3/uL; NRBC Flagged by Analyzer 0 % (0-5); Neutrophil # 6.28 X10^3/uL (2.7-7.7); Neutrophil % 64.8 % (47-70); Platelet Count 248 K/mm3 (150-450); RBC Distribution Width CV 13.7 % (11.6-14.6); RBC Distribution Width SD 41.1 fl (35.1-43.9); Red Blood Count 5.44 M/mm3 (4.2-5.4); White Blood Count 9.7 K/mm3 (4.4-11.0)
[2024-08-17] MEDS: Labetalol 20 MG/4 ML Vial IV (20:07)
[2024-08-17 20:21] LABS: Anion Gap 11 (5-15); BUN 10 mg/dL (4-19); BUN/Creat Ratio 12.1 RATIO (10-20); Calcium,Total 9.7 mg/dL (7.6-11.0); Carbon Dioxide 28.2 mmol/L (21.0-32.0); Chloride 99 mmol/L (98-108); EST Glomerular Filtration Rate 79 (>60); Glucose 114 mg/dL (70-99); Potassium 3.8 mmol/L (3.3-5.1); Sodium Level 138 mmol/L (133-145); Troponin T High Sensitivity 17 ng/L (<=14)
--- NOTE | 2024-08-17 20:28 | ED.RN ---
2024: TRANSPORT TEAM AT BEDSIDE. REPORT OF CARE GIVEN.
[2024-08-17 20:34] LABS: Prothrombin Time (Protime)PT. 12.8 SECONDS (11.7-14.9)
[2024-08-17 20:35] LABS: Partial Thromboplast Time 23.5 Seconds (24.1-36.2)
[2024-08-17 20:37] LABS: Bedside Glucose 96 mg/dL (74-106)
--- NOTE | 2024-08-17 20:44 | ED.RN ---
2039: REPORT CALLED TO [facility] NURSE RAMONA AT THIS TIME.
== END 2024-08-17 20:30 | disposition short-term general hospital (02) ==
PROVIDERS: Emergency Provider Emergency Medicine; PCP Family Medicine; Visit Provider Emergency Medicine
DX: I61.1 Nontraumatic intracerebral hemorrhage in hemisphere, cortical (principal); I48.0 Paroxysmal atrial fibrillation; R29.701 NIHSS score 1; I10 Essential (primary) hypertension; E66.9 Obesity, unspecified; Z68.36 Body mass index [BMI] 36.0-36.9, adult; Z79.82 Long term (current) use of aspirin; Z79.899 Other long term (current) drug therapy; Z86.16 Personal history of COVID-19; Z87.891 Personal history of nicotine dependence
CPT/HCPCS: 70450; 80048; 82962; 84484; 85025; 85610; 85730; 93005; 96374; 99285; A4216

== ENCOUNTER 2024-08-29 12:48 | Inpatient (IN) | payer OTHER, MEDICARE, SELFPAY ==
--- OUTSIDE RECORDS SUMMARY | 2024-08-29 12:54 | XMS RPT_ITS | CCD ---
Author Organization [facility] Care Team Providers Care Cyber Ops Planner Name Role Phone DR OTTONIEL PAGE DO A Primary Care Physician [phone] Dr. Ottoniel Page Primary Care Provider [phone] Dr. Ottoniel Page Referring Provider Dr. Andrew Keane Attending Provider [phone] OTTONIEL PAGE DO A Primary Care Physician [phone] Dr. Ottoniel Page Primary Care Provider [phone] Dr. Andrew Keane Attending Provider [phone] KIMBERLY Hermosillo Referring Provider Dr. Ottoniel Page Primary Care Provider Dr. Ottoniel Page Referring Provider KIMBERLY Rider Attending Provider Dr. Ottoniel Page Primary Care Provider Dr. Wilmer Erazo Attending Provider [phone] Ottoniel Page DO Primary Care Provider NP. Daly Del Rio Attending Provider NP. Daly Del Rio Referring Provider Dr. Facundo Kat MD Attending Provider Dr. Facundo Kat MD Referring Provider Dr. Daphne Manuel MD Attending Provider Dr. Bruon Avila DO Referring Provider [phone] Dr. Bruno Avila DO Attending Provider Jaimee HARRIS, Makeda Other Provider Dr. Ottoniel Page DO Attending Provider [phone] Camilo UMAÑA, Dr. Castro Referring Provider [phone] Janeth Rider Attending Provider Nhung UMAÑA, Dr. Reese Emergency Provider Dr. Young Edwards MD Emergency Provider PROVIDER, UNKNOWN Attending Unavailable PROVIDER, UNKNOWN Admitting Unavailable Camilo, Ottoniel Primary Care Unavailable Oatman, Daly Attending Unavailable Oatman, Daly Referring Unavailable SpittBruno mercado Attending Unavailable Spittle, Bruno Referring Unavailable Makeda Hermosillo Consulting Unavailable Camilo, Ottoniel Primary Care Unavailable Hugh Mercado Attending Unavailable Camilo, Ottoniel Primary Care Unavailable Camilo, Ottoniel Attending Unavailable Camilo, Ottoniel Referring Unavailable Camilo, Ottoniel Primary Care Unavailable Camilo, Ottoniel Primary Care Unavailable Jabour, Facundo Attending Unavailable Jabour, Antoinetteent Referring Unavailable SpittBruno mercado Attending Unavailable Spittle, Bruno Referring Unavailable Camilo, Ottoniel Primary Care Unavailable Janeth Rider Attending Unavail able Camilo, Ottoniel Referring Unavailable Camilo, Ottoniel Primary Care Unavailable Camilo, Ottoniel Primary Care Unavailable Spittle, Bruno Referring Unavailable Roxanne Manuele Attending Unavailabl e Edwards, Young Attending Unavailable Camilo, Ottoniel Primary Care Unavailable Jabour, Vincent Referring Unavailable Jabour, Facundo Attending Unavailable Camilo, Ottoniel Primary Care Unavailable Jabour, Vincent Referring Unavailable Jabour, Antoinetteent Attending Unavailable Oatman, Daly Consulting Unavailable Camilo, Ottoniel Primary Care Unavailable Jabour, Vincent Referring Unavailable Jabour, Vincent Attending Unavailable Oatman, Daly Consulting Unavailable Camilo, Ottoniel Primary Care Unavailable CONSULT, SURGERY - NEURO Consulting Unavail able GRADY MCDONALD Attending Unavailab PRATIBHA Ivory Admitting Unavailable CAMILO, OTTONIEL A Primary Care Unavailable EDWARDS, YOUNG Referring Unavailable Allergies Allergy Classification Reported Allergen(s) Allergy Type Date of Onset Reaction(s) Facility (5 sources) Acetaminophen / HYDROcodone; Translations: [acetaminophen-hy drocodone] Drug Allergy Paranoid disorder (disorder), Vomiting (disorder), Nausea (finding) [facility] (20 sources) predniSONE; Translations: [prednisone] Drug Allergy 2 Paranoid disorder (disorder) [facility] (13 sources) Acetaminophen Drug Allergy 2 GI upset [facility] (19 sources) Cortisone Drug Allergy 2 Unknown [facility] (19 sources) HYDROcodone Drug Allergy 2 GI upset [facility] (19 sources) Propoxyphene Drug Allergy 2 GI upset [facility] (1 source) Acetaminophen Drug Allergy 4 [facility] (1 source) Cortisone Drug Allergy 5 [facility] (1 source) HYDROcodone Drug Allergy 5 [facility] (1 source) predniSONE Drug Allergy 5 [facility] (1 source) Propoxyphene Drug Allergy 5 [facility] Medications Current Medications Medication Drug Class(es) Dates Sig (Normalized) Sig (Original) acetaminophen 325 mg oral capsule (1 source) Start: 06-11-2021 End: 06-25-2021 acetaminophen 325 mg oral capsule Dose : 650 mg = 2 cap(s), Oral, q6hr, PRN as needed for pain, X 7 day(s), # 28 cap(s), 1 Refill(s), 06/25/21 13:17:00 EDT, [facility], 177.8, cm, 06/11/21 8:38:00 EDT, Height Start [...] 2018 8:04am betamethasone 0.0005 mg/mg topical ointment (3 sources) Corticosteroid Start: 08-10-2024 Betamethasone Dipropionate 0.05 % ointment Active 1 [facility] TOPICAL daily as needed for skin irritation August 10, 2024 12:00am brimonidine tartrate 2 [...] hydrochloride 150 mg extended release oral tablet (9 sources) Aminoketone Start: 08-11-2023 End: 08-10-2024 take [...] 12:00am clobetasol propionate 0.5 mg/ml topical cream (3 sources) Corticosteroid Start: 08-10-2024 Clobetasol 0.05 % cream Active 1 [facility] TOPICAL TWICE A DAY August 10, 2024 12:00am clotrimazole 10 mg/ml topical cream (3 sources) Azole Antifungal Start: 08-10-2024 Clotrimazole 1 % cream Active 1 [facility] TOPICAL TWICE A DAY August 10, [...] # 60 cap(s), 1 Refill(s), Pharmacy: [facility], 177.8, cm, 06/11/21 8:38:00 EDT, Height Start Date: 06/11/21 Status: Ordered Start: 04-25-2021 Dulcolax Stool Softener 100 mg oral capsule Dose : 100 mg = 1 cap(s), Oral, BID, PRN as needed for constipation, # 20 cap(s), 0 Refill(s) Start Date: 04/25/21 Status: Ordered ferrous sulfate 325 mg delayed release oral tablet (20 sources) Start: 08-10-2024 take 1 tablet by [...] oral capsule (20 sources) Anti-epileptic Agent Start: 03-05-2025 take 1 capsule by mouth three times [...] hyoscyamine sulfate 0.125 mg disintegrating oral tablet (3 sources) Start: 08-10-2024 take 1 tablet by [...] 0 Refill(s), 06/18/21 13:15:00 EDT, [facility], Post-op pain, 177.8, cm, 06/11/21 8:38:00 EDT, [...] 2018 12:00am primidone 50 mg oral tablet (3 sources) Anti-epileptic Agent Start: 08-10-2024 take 1 tablet [...] 02, 2017 12:00am July 08, 2017 11:15am sotalol hydrochloride 80 mg oral tablet (20 sources) Antiarrhythmic Start: 07-02-2017 End: 08-17-2024 take 1 tablet by mouth twice daily Sotalol 80 mg tablet Active 80 mg PO TWICE A DAY 180 August 17, 2024 7:54am Timolol Maleate (3 sources) beta-Adrenergic Migue Start: 08-10-2024 Timolol Maleate 0.5 % drops Active 1 NMA OPHTHALMIC DAILY August 10, 2024 12:00am Start: 08-10-2024 Timolol Maleat e 0.5 % drops Active NMA OPHTHALMIC August [...] 23, 2019 3:46pm April 27, 2020 12:08pm Ustekinumab (Stelara) 90 mg/ mL Syringe (2 sources) Start: 08-24-2020 Ustekinumab (S telara) 90 mg/mL Syringe Active 90 mg SC .Q2MO August 24, 2020 12:00am Completed/Discontinued Medications Medication Drug Class(es) Dates Sig [...] mg BID. azaTHIOprine 50 mg oral tablet (19 sources) Purine Antimetabolite Start: 07-08-2017 End: 10-13-2018 take 1 tablet by mouth once daily Azathioprine 50 mg tablet Discontinued 150 mg PO daily July 08, 2017 12:00am October 13, 2018 8:29am Start: 07-08-2017 End: 10-13-2018 take 150 mg by mouth once daily Azathioprine Discontinued 150 MG PO daily July 08, 2017 12:00am October 13, 2018 8:29am ciprofloxacin 500 mg oral tablet (19 sources) Quinolone Antimicrobial Start: 09-01-2020 End: 10-31-2020 take 1 tablet by mouth twice daily Ciprofloxacin Hcl (Cipro) 500 mg tablet Discontinued 500 mg PO TWICE A DAY September 01, 2020 12:00am October 31, 2020 1:04pm Cranberry Fruit (19 sources) Start: 01-25-2018 End: 09-23-2019 take 1 [...] 2019 3:45pm famotidine 20 mg oral tablet (19 sources) Histamine-2 Receptor Antagonist Start: 04-10-2018 End: 10-13-2018 take 1 tablet by mouth twice daily Famotidine 20 MG tablet Discontinued 20 mg PO TWICE A DAY 60 April 10, 2018 1:00am October 13, 2018 [...] 2019 3:45pm ibuprofen 200 mg oral tablet (19 sources) Nonsteroidal Anti-inflammatory Drug Start: 07-02-2017 End: [...] 2020 12:07pm ondansetron 8 mg oral tablet (19 sources) Serotonin-3 Receptor Antagonist Start: 04-10-2018 End: 10-13-2018 take 1 tablet by mouth every eight hours as needed for nausea Ondansetron Hcl 8 MG tablet Discontinued 8 mg PO EVERY 8 HOURS NEEDED as needed for nausea, emesis April 10, 2018 1:00am October 13, 2018 8:30am Stelara PFS 90 mg/mL subcutaneous solution (1 source) Start: 06-07-2021 inject 1 mL by subcutaneous injection every two months Stelara PFS 90 mg/mL subcutaneous solution Dose : 90 mg = 1 mL, Subcutaneous, EVERY 2 MONTHS, # 1 mL, 0 Refill(s) Start Date: 06/07/21 Status: Ordered vitamin b12 1 mg oral capsule (19 sources) Vitamin B12 Start: 01-25-2018 End: 10-13-2018 [...] Classification Problem Date Documented Da te Episodic/Chronic Acute cerebrovascular disease (3 sources) Hemorrhagic cerebral infarction; 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, unspecified] Onset: 08-17-2024 08-17-2024 Chronic Anxiety disorders (5 sources) Anxiety 04-24-2021 Chronic Cardiac dysrhythmias (20 sources) Atrial fibrillation; Translations: [Wide QRS ventricular tachycardia] Onset: 04-27-2020 04-24-2021 Chronic Cardiac dysrhythmias (20 sources) Palpitations; Translations: [Palpitations] Onset: 04-27-2020 09-23-2019 Episodic Disorders of lipid metabolism (19 sources) Hyperlipidemia; Translations: [Hyperlipidemia, unspecified] 04-09-2018 Chronic Essential hypertension (20 sources) Essential hypertension; Translations: [Essential (primary) hypertension] Chronic Genitourinary symptoms and ill-defined conditions (19 sources) Urge incontinence of urine; Translations: [Urge [...] mass and lump] Onset: 05-28-2021 Episodic Other nervous system disorders (1 source) Paresthesia; Translations: [Paresthesia of skin] 08-17-2024 Episodic Other nervous system disorders (1 source) Anesthesia of skin; Translations: [Anesthesia of skin] Onset: 08-23-2024 Episodic Other screening for suspected conditions (not mental disorders or infectious disease) (1 source) Encounter for screening mammogram for malignant neoplasm of breast; Translations: [Encounter for screening mammogram for malignant neoplasm of breast] Onset: 08-09-2024 Episodic Other skin disorders (2 sources) Other specified disorders of the skin and subcutaneous tissue; Translations: [Other specified disorders of the skin and subcutaneous tissue] Onset: 08-17-2024 Episodic Pulmonary heart disease (20 sources) Pulmonary embolism; Translations: [Acute pulmonary embolism] Onset: 04-09-2018 04-24-2021 Episodic Regional enteritis and ulcerative colitis (5 sources) Crohn's disease 04-24-2021 Chronic Residual codes; unclassified (5 sources) Chronic back pain 04-24-2021 Episodic Past or Other Problems Problem Classification Problem Date Documented Da te Episodic/Chronic Other non-traumatic joint disorders (1 source) Pain in right hip; Translations: [Pain in right hip] Onset: 05-06-2024 Episodic Viral infection (19 sources) COVID-19; Translations: [Severe acute respiratory syndrome coronavirus 2 (SARS-CoV-2) detected] Onset: 01-24-2020 05-02-2020 Episodic Results Test Name Value Interpretation Reference Range Facility CBC,PLATELETSon 08-26-2024 Hematocrit (Bld) [Volume fraction] 44.9 % High 34.9-44.[address] [facility] Comment on above: Performed By: #### X M #### [facility] (DEFAULT) [address] [place] [address] Hemoglobin (Bld) [Mass/Vol] 14.0 g/dL Normal 11.4-15.[address] [facility] Comment on above: Performed By: #### X M #### [facility] (DEFAULT) [address] [place] [address] MCV (RBC) [Entitic vol] 85.5 fL Normal 79.6-97.7 [facility] Comment on above: Performed By: #### X M #### [facility] (DEFAULT) [address] [address] Mean Cell Hgb 26.7 pg Normal 25.9-33.[address] [facility] Comment on above: Performed By: #### X M #### [facility] (DEFAULT) [address] [address] Mean Cell Hgb Conc 31.2 g/dL Low 31.4-35.9 [facility] Comment on above: Performed By: #### X M #### [facility] (DEFAULT) [address] [address] Platelet mean volume (Bld) [Entitic vol] 12.0 fL Normal 8.5-12.[address] [facility] Comment on above: Performed By: #### X M #### [facility] (DEFAULT) [address] [address] Platelets (Bld) [#/Vol] 211 10*3/uL Normal 150-[address] [facility] Comment on above: Performed By: #### X M #### [facility] (DEFAULT) [address] [address] RBC (Bld) [#/Vol] 5.25 10*6/uL High 3.91-5.[address] [facility] Comment on above: Performed By: #### X M #### [facility] (DEFAULT) [address] [address] RBC Distribution 14.1 % Normal 10.8-14.9 [facility] Comment on above: Performed By: #### X M #### [facility] (DEFAULT) [address] [place] [address] WBC (Bld) [#/Vol] 7.77 10*3/uL Normal 3.99-11.[address] [facility] Comment on above: Performed By: #### X M #### [facility] (DEFAULT) [address] [place] [phone] CHEM 7 (LYTES,BUN,CREA,GLUC) on 08-26-2024 Anion gap [Moles/Vol] 14 mmol/L Normal 7-17 [facility] Comment on above: Performed By: #### C HM7, MGO, IPB #### [facility] (DEFAULT) [address] [place] [address] Chloride [Moles/Vol] 101 mmol/L Normal 98-[address] [facility] Comment on above: Performed By: #### Tasneem HM7, MGO, IPB #### [facility] (DEFAULT) [address] [place] [address]11 CO2 [Moles/Vol] 27 mmol/L Normal 21-31 [facility] Comment on above: Performed By: #### Tasneem HM7, MGO, IPB #### [facility] (DEFAULT) [address] [place] [address] 26954 Creatinine [Mass/Vol] 0.56 mg/dL Normal 0.50-1.20 [facility] Comment on above: Performed By: #### Tasneem HM7, MGO, IPB #### [facility] (DEFAULT) [address] [place] [address] eGFR, CKD-EPI, Female > Normal >=60 [facility] Comment on above: Result Comment: Repo rted eGFR is based on the CKD-EPI 2020 equation using creatinine, age, and sex. Performed By: #### Tasneem HM7, MGO, IPB #### [facility] (DEFAULT) [address] [place] [address]692 Glucose [Mass/Vol] 101 mg/dL Normal Nonfastin -179 mg/dL; Fastin-[address] [facility] Comment on above: Performed By: #### FLASH WILLINGHAM, IPB #### [facility] (DEFAULT) [address] [place] [address] Osmolality [Osmolality] 290 mosm/kg Normal 278-[address] [facility] Comment on above: Performed By: #### Tasneem BARROS MGO, IPB #### [facility] (DEFAULT) [address] [place] [address] Potassium [Moles/Vol] 4.0 mmol/L Normal 3.5-5.0 [facility] Comment on above: Performed By: #### FLASH WILLINGHAM, IPB #### [facility] (DEFAULT) [address] [place] [address]234 Sodium [Moles/Vol] 138 mmol/L Normal 135-145 [facility] Comment on above: Performed By: #### MG TARSHAO, IPB #### [facility] (DEFAULT) [address] [place] [address]194 Urea nitrogen [Mass/Vol] 14 mg/dL Normal 7-[address] [facility] Comment on above: Performed By: #### Tasneem BARROS, MGO, IPB #### [facility] (DEFAULT) [address] [place] [address]35 Urea nitrogen/Creatinine [Mass ratio] 25 mg/mg Normal [facility] Comment on above: Performed By: #### Tasneem BARROS, MGO, IPB #### [facility] (DEFAULT) [address] [place] [address] HEAD WITHOUT CONTRASTon 0 08-26-2024 CT HEAD WITHOUT CONTRAST EXAM: CT HEAD WITHOUT CONTRAST, 08/26/2024 1:40 AM COMPARISON: CT HEAD WITHOUT CONTRAST August 24, 2024 CLINICAL INDICATIONS: 69 years Female stability RELEVANT CLINICAL HISTORY: TECHNIQUE: A series of transaxial computerized tomographic images are obtained from base of skull to vertex without intravenous contrast. Axial whole-head and thin section posterior fossa slices are provided. Reformats: Sagittal and coronal. FINDINGS: Patient is status post left parietal craniotomy for evacuation of a parenchymal hematoma and resection of an AVM. Stable underlying hypodensity is noted. Stable pneumocephalus is present. No major intracranial hemorrhage is noted. Stable hypodensities of the basal ganglia on the left. Stable subdural collection underlying the craniotomy. No acute large territory infarction is seen. No new intracranial hemorrhage is seen. No significant mass effect or midline shift. Ventricles are normal in size and configuration for patient age. Visualized orbits appear normal. Visualized paranasal sinuses are clear. Visualized mastoid air cells are clear. Atherosclerotic calcifications of the major arteries at the skull base are noted. IMPRESSION: Stable examination as compared to August 24, 2024. Normal [facility] IONIZED CALCIUM, WHOLE BLOOD on 08-26-2024 ICA 4.20 mg/dL Low 4.60-5.[address] [facility] Comment on above: Performed By: #### S URGP #### [facility] (DEFAULT) [address] [place] [phone] MAGNESIUMon 08-26-2024 Magnesium [Mass/Vol] 1.9 mg/dL Normal 1.6-2.[address] [facility] Comment on above: Performed By: #### C HM7, MGO, IPB #### [facility] (DEFAULT) [address] [place] [phone] PHOSPHATE, INORGANICon 08-26 Phosphorous 4.4 mg/dL Normal 2.2-4.[address] [facility] Comment on above: Performed By: #### X M #### [facility] (DEFAULT) [address] [place] [phone] CBC,PLATELETSon 08-25-2024 Hematocrit (Bld) [Volume fraction] 44.0 % Normal 34.9-44.[address] [facility] Comment on above: Performed By: #### U R #### [facility] (DEFAULT) [address] [place] [address]72 Hemoglobin (Bld) [Mass/Vol] 13.5 g/dL Normal 11.4-15.[address] [facility] Comment on above: Performed By: #### U R #### [facility] (DEFAULT) [address] [address] MCV (RBC) [Entitic vol] 85.6 fL Normal 79.6-97.7 [facility] Comment on above: Performed By: #### U R #### [facility] (DEFAULT) [address] [address] Mean Cell Hgb 26.3 pg Normal 25.9-33.[address] [facility] Comment on above: Performed By: #### U R #### [facility] (DEFAULT) [address] [address] Mean Cell Hgb Conc 30.7 g/dL Low 31.4-35.9 [facility] Comment on above: Performed By: #### U R #### [facility] (DEFAULT) [address] [address] Platelet mean volume (Bld) [Entitic vol] 11.6 fL Normal 8.5-12.[address] [facility] Comment on above: Performed By: #### U R #### [facility] (DEFAULT) [address] [address] Platelets (Bld) [#/Vol] 200 10*3/uL Normal 150-[address] [facility] Comment on above: Performed By: #### U R #### [facility] (DEFAULT) [address] [address] RBC (Bld) [#/Vol] 5.14 10*6/uL High 3.91-5.[address] [facility] Comment on above: Performed By: #### U R #### [facility] (DEFAULT) [address] [address] RBC Distribution 13.9 % Normal 10.8-14.9 [facility] Comment on above: Performed By: #### U R #### [facility] (DEFAULT) [address] [place] [address]12 WBC (Bld) [#/Vol] 6.86 10*3/uL Normal 3.99-11.[address] [facility] Comment on above: Performed By: #### U R #### [facility] (DEFAULT) [address] [place] [id number] CHEM 7 (LYTES,BUN,CREA,GLUC) on 08-25-2024 Anion gap [Moles/Vol] 16 mmol/L Normal 7-17 [facility] Comment on above: Performed By: #### U R #### [facility] (DEFAULT) [address] [place] [address]56 Chloride [Moles/Vol] 101 mmol/L Normal 98-[address] [facility] Comment on above: Performed By: #### U R #### [facility] (DEFAULT) [address] [place] [address]684 CO2 [Moles/Vol] 26 mmol/L Normal 21-31 [facility] Comment on above: Performed By: #### U R #### [facility] (DEFAULT) [address] [place] [address] 19146 Creatinine [Mass/Vol] 0.56 mg/dL Normal 0.50-1.20 [facility] Comment on above: Performed By: #### U R #### [facility] (DEFAULT) [address] [place] [address]37 eGFR, CKD-EPI, Female > Normal >=60 [facility] Comment on above: Result Comment: Repo rted eGFR is based on the CKD-EPI 2020 equation using creatinine, age, and sex. Performed By: #### U R #### [facility] (DEFAULT) [address] [place] [address] Glucose [Mass/Vol] 113 mg/dL Normal Nonfastin -179 mg/dL; Fastin-[address] [facility] Comment on above: Performed By: #### U R #### [facility] (DEFAULT) [address] [place] [address] Osmolality [Osmolality] 292 mosm/kg Normal 278-[address] [facility] Comment on above: Performed By: #### U R #### [facility] (DEFAULT) [address] [place] [address] Potassium [Moles/Vol] 4.0 mmol/L Normal 3.5-5.0 [facility] Comment on above: Performed By: #### U R #### [facility] (DEFAULT) [address] [place] [address]209 Sodium [Moles/Vol] 139 mmol/L Normal 135-145 [facility] Comment on above: Performed By: #### U R #### [facility] (DEFAULT) [address] [place] [address] 62449 Urea nitrogen [Mass/Vol] 13 mg/dL Normal 7-[address] [facility] Comment on above: Performed By: #### U R #### [facility] (DEFAULT) [address] [place] [address] Urea nitrogen/Creatinine [Mass ratio] 23 mg/mg Normal [facility] Comment on above: Performed By: #### U R #### [facility] (DEFAULT) [address] [place] [address] IONIZED CALCIUM, WHOLE BLOOD on 08-25-2024 ICA 4.29 mg/dL Low 4.60-5.30 [facility] [facility] Comment on above: Performed By: #### X M #### [facility] (DEFAULT) [address] [place] [address] MAGNESIUMon 08-25-2024 Magnesium [Mass/Vol] 1.8 mg/dL Normal 1.6-2.[address] [facility] Comment on above: Performed By: #### U R #### [facility] (DEFAULT) [address] [place] [address] 17790 PHOSPHATE, INORGANICon 08-25 Phosphorous 3.8 mg/dL Normal 2.2-4.[address] [facility] Comment on above: Performed By: #### U [id number] #### [facility] (DEFAULT) [address] [address] CBC,PLATELETSon 08-24-2024 Hematocrit (Bld) [Volume fraction] 42.8 % Normal 34.9-44.[address] [facility] Comment on above: Performed By: #### U [id number] #### [facility] (DEFAULT) [address] [place] [address] 21783 Hemoglobin (Bld) [Mass/Vol] 13.3 g/dL Normal 11.4-15.[address] [facility] Comment on above: Performed By: #### U [id number] #### [facility] (DEFAULT) [address] [address] MCV (RBC) [Entitic vol] 86.1 fL Normal 79.6-97.7 [facility] Comment on above: Performed By: #### U [id number] #### [facility] (DEFAULT) [address] [address] Mean Cell Hgb 26.8 pg Normal 25.9-33.[address] [facility] Comment on above: Performed By: #### U [id number] #### [facility] (DEFAULT) [address] [address] Mean Cell Hgb Conc 31.1 g/dL Low 31.4-35.9 [facility] Comment on above: Performed By: #### U [id number] #### [facility] (DEFAULT) [address] [address] Platelet mean volume (Bld) [Entitic vol] 12.1 fL Normal 8.5-12.[address] [facility] Comment on above: Performed By: #### U [id number] #### [facility] (DEFAULT) [address] [address] Platelets (Bld) [#/Vol] 195 10*3/uL Normal 150-[address] [facility] Comment on above: Performed By: #### U [id number] #### [facility] (DEFAULT) [address] [place] [address] 30459 RBC (Bld) [#/Vol] 4.97 10*6/uL Normal 3.91-5.[address] [facility] Comment on above: Performed By: #### U [id number] #### [facility] (DEFAULT) [address] [place] [address] 55036 RBC Distribution 13.9 % Normal 10.8-14.9 [facility] Comment on above: Performed By: #### U [id number] #### U [facility] (DEFAULT) [address] [place] [address] 82889 WBC (Bld) [#/Vol] 6.61 10*3/uL Normal 3.99-11.[address] [facility] Comment on above: Performed By: #### U [id number] #### [facility] (DEFAULT) [address] [place] [address] 12457 CHEM 7 (LYTES,BUN,CREA,GLUC) on 08-24-2024 Anion gap [Moles/Vol] 19 mmol/L High - [facility] Comment on above: Performed By: #### U R #### [facility] (DEFAULT) [address] [place] [address] 68631 Chloride [Moles/Vol] 100 mmol/L Normal 98-[address] [facility] Comment on above: Performed By: #### U R #### [facility] (DEFAULT) [address] [place] [address] 08172 CO2 [Moles/Vol] 23 mmol/L Normal 21-31 [facility] Comment on above: Performed By: #### U R #### [facility] (DEFAULT) [address] [place] [address] 10221 Creatinine [Mass/Vol] 0.58 mg/dL Normal 0.50-1.20 [facility] Comment on above: Performed By: #### U R #### [facility] (DEFAULT) [address] [place] [address] 99688 eGFR, CKD-EPI, Female > Normal >=60 [facility] Comment on above: Result Comment: Repo rted eGFR is based on the CKD-EPI 2020 equation using creatinine, age, and sex. Performed By: #### U R #### [facility] (DEFAULT) [address] [place] [address] 52798 Glucose [Mass/Vol] 125 mg/dL Normal Nonfastin -179 mg/dL; Fastin-[address] [facility] Comment on above: Performed By: #### U R #### [facility] (DEFAULT) [address] [place] [address] 95190 Osmolality [Osmolality] 290 mosm/kg Normal 278-[address] [facility] Comment on above: Performed By: #### U R #### [facility] (DEFAULT) [address] [place] [address] 45758 Potassium [Moles/Vol] 4.0 mmol/L Normal 3.5-5.0 [facility] Comment on above: Performed By: #### U R #### [facility] (DEFAULT) [address] [place] [address] 36428 Sodium [Moles/Vol] 138 mmol/L Normal 135-145 [facility] Comment on above: Performed By: #### U R #### [facility] (DEFAULT) [address] [place] [address] 95817 Urea nitrogen [Mass/Vol] 11 mg/dL Normal 7-[address] [facility] Comment on above: Performed By: #### U R #### [facility] (DEFAULT) [address] [place] [address] 18625 Urea nitrogen/Creatinine [Mass ratio] 19 mg/mg Normal [facility] Comment on above: Performed By: #### U R #### U [facility] (DEFAULT) [address] [address] [address] HEAD WITHOUT CONTRASTon 0 08-24-2024 CT HEAD WITHOUT CONTRAST EXAM: CT HEAD WITHOUT CONTRAST, 08/24/2024 7:58 AM COMPARISON: CT HEAD WITHOUT CONTRAST August 20, 2024 CLINICAL INDICATIONS: 69 years Female intermittent new weakness RELEVANT CLINICAL HISTORY: TECHNIQUE: A series of transaxial computerized tomographic images are obtained from base of skull to vertex without intravenous contrast. Axial whole-head and thin section posterior fossa slices are provided. Reformats: Sagittal and coronal. FINDINGS: Postoperative changes from left parietal craniotomy for intraparenchymal hematoma evacuation and AVM resection. Improved pneumocephalus. Significant improvement in the previously noted subarachnoid hemorrhage in the left frontoparietal region. No discrete residual space-occupying hematoma. Minimal extra-axial subdural collection over the left parietal convexity. Minimal surrounding edema is not significantly changed. Resolution of the previously noted midline shift. Low-attenuation changes in the left parietal lobe. No significant ventriculomegaly. Evidence of prior bilateral cataract surgery. Visualized paranasal sinuses show scattered mucosal thickening. Visualized mastoid air cells are clear. Atherosclerotic calcifications of the major arteries at the skull base are noted. IMPRESSION: Improved postoperative changes for intraparenchymal hematoma and AVM resection in the left parietal lobe. Residual pneumocephalus, small amount of blood products low-attenuation changes in the left parietal lobe as described above. Normal [facility] IONIZED CALCIUM, WHOLE BLOOD on 08-24-2024 ICA 4.03 mg/dL Low 4.60-5.[address] [facility] Comment on above: Performed By: #### X M #### U [facility] (DEFAULT) [address] [address] MAGNESIUMon 08-24-2024 Magnesium [Mass/Vol] 1.8 mg/dL Normal 1.6-2.[address] [facility] Comment on above: Performed By: #### U R #### [facility] (DEFAULT) [address] [address] MRI BRAIN WITH AND WITHOUT C ONTRASTon 08-24-2024 MRI BRAIN WITH AND WITHOUT CONTRAST EXAM: MRI BRAIN WITH AND WITHOUT CONTRAST, 08/24/2024 13:02 PM COMPARISON: Multiple previous imaging studies dating back to 08/17/2024 CLINICAL INDICATIONS: 69 years Female new hypodensity postop in premotor v primary area (L side), new R sided weakness. The patient has prior history of meningioma resection and presented with a left parietal cortical hemorrhage. Taken to OR on 08/20/2024, with revision craniotomy with repeat evacuation of hematoma and resection of small AVM/fistula identified underneath the prior parietal craniotomy flap. TECHNIQUE: A series of multisequence, multiplanar images of the brain are obtained both before and after intravenous administration of gadolinium-based contrast using standard protocol. Study was performed at [address]. CONTRAST: Gadopiclenol SOLN 1-25 mL; Route of Administration: Intravenous; Dose: 10.4 mL. FINDINGS: There are postoperative changes since the previous MRI following repeat craniotomy and evacuation of acute cortical hematoma on the left parietal lobe. There is a surgical resection cavity which shows nearly low-density postoperative fluid and some FLAIR hyperintense blood products on MRI. This appears stable compared to the earlier head CT. There is a small amount of pneumocephalus as well, related to the procedure. There is mild subcortical parenchymal edema surrounding the resection site on T2 and FLAIR imaging. This edema has progressed since the preoperative MRI from 08/18/2024. It shows primarily facilitated diffusion and is suggestive of localized swelling or possibly altered perfusion in the area (venous congestion, perhaps luxury perfusion, etc. Continued noncontrast CT follow-up is recommended. Elsewhere in the brain, there are stable findings of a tiny enhancing lesion in the right IAC suggesting schwannoma. Patchy periventricular white matter FLAIR signal hyperintensities, which are nonspecific but compatible with chronic small vessel ischemic changes. No other evidence of mass lesion. No other abnormal enhancement. No extracerebral collection. Sellar and parasellar structures are unremarkable. Posterior fossa is otherwise unremarkable. Ventricles and sulci are stable in size limits. IMPRESSION: Postoperative changes following repeat craniotomy with evacuation of left parietal hematoma and AVM/fistula associated with the previous craniotomy. Mild progression of edema surrounding the hematoma evacuation site, compared to the 08/18 MRI. This could be reactive edema or altered perfusion following resection of the vascular lesion. Continued noncontrast CT follow-up recommended. I personally viewed and interpreted these images and I have reviewed and approved this report. Normal [facility] PHOSPHATE, INORGANICon 08-24 Phosphorous 3.8 mg/dL Normal 2.2-4.[address] [facility] Comment on above: Performed By: #### U R #### [facility] (DEFAULT) [address] [address] URINALYSIS REFLEX TO CULTURE PERFORMABLEon 08-24-2024 Appearance (U) Cloudy Abnormal Clear [facility] Comment on above: Order Comment: For i ndwelling catheters, specimen collection is acceptable on catheter day 1 and 2 only. ? Performed By: #### X M #### [facility] (DEFAULT) [address] [address] Bacteria PRESENT Abnormal ABSENT [facility] Comment on above: Order Comment: For i ndwelling catheters, specimen collection is acceptable on catheter day 1 and 2 only. ? Performed By: #### X M #### [facility] (DEFAULT) [address] [address] Blood Urine Moderate Abnormal Negative [facility] Comment on above: Order Comment: For i ndwelling catheters, specimen collection is acceptable on catheter day 1 and 2 only. ? Performed By: #### X M #### [facility] (DEFAULT) [address] [address] Color (U) Yellow Normal Yellow [facility] Comment on above: Order Comment: For i ndwelling catheters, specimen collection is acceptable on catheter day 1 and 2 only. ? Performed By: #### X M #### [facility] (DEFAULT) [address] [address] Glucose Ql (U) Negative Normal Negative [facility] Comment on above: Order Comment: For i ndwelling catheters, specimen collection is acceptable on catheter day 1 and 2 only. ? Performed By: #### X M #### [facility] (DEFAULT) [address] [place] [address] Ketones Ql (U) Negative Normal Negative [facility] Comment on above: Order Comment: For i ndwelling catheters, specimen collection is acceptable on catheter day 1 and 2 only. ? Performed By: #### X M #### [facility] (DEFAULT) [address] [place] [address]953 Leukocyte esterase Test strip Ql (U) Large Abnormal Negative [facility] Comment on above: Order Comment: For i ndwelling catheters, specimen collection is acceptable on catheter day 1 and 2 only. ? Performed By: #### X M #### [facility] (DEFAULT) [address] [place] [address] 58369 Nitrites Urine Positive Abnormal Negative [facility] Comment on above: Order Comment: For i ndwelling catheters, specimen collection is acceptable on catheter day 1 and 2 only. ? Performed By: #### X M #### [facility] (DEFAULT) [address] [place] [address]448 pH (U) 7.5 [pH] Abnormal 5.0-7.[address] [facility] Comment on above: Order Comment: For i ndwelling catheters, specimen collection is acceptable on catheter day 1 and 2 only. ? Performed By: #### X M #### [facility] (DEFAULT) [address] [place] [address] 48435 Protein Urine Negative Normal Negative [facility] Comment on above: Order Comment: For i ndwelling catheters, specimen collection is acceptable on catheter day 1 and 2 only. ? Performed By: #### X M #### [facility] (DEFAULT) [address] [place] [address] 45576 RBC Urine 3-5 Abnormal 0-[address] [facility] Comment on above: Order Comment: For i ndwelling catheters, specimen collection is acceptable on catheter day 1 and 2 only. ? Performed By: #### X M #### [facility] (DEFAULT) [address] [place] [address]79 Specific [place] Urine 1.014 Normal 1.001-1.035 [facility] Comment on above: Order Comment: For i ndwelling catheters, specimen collection is acceptable on catheter day 1 and 2 only. ? Performed By: #### X M #### [facility] (DEFAULT) [address] [address] Squamous/Epithelial Cells, Urine 0-2/hpf Normal 0-2/hpf, 3-5/hpf = 1+ [facility] Comment on above: Order Comment: For i ndwelling catheters, specimen collection is acceptable on catheter day 1 and 2 only. ? Performed By: #### X M #### [facility] (DEFAULT) [address] [address] Urobilinogen Urine 0.2 E.U./dL Normal 0.2 E.U/d L, 1.0 E.U/dL [facility] Comment on above: Order Comment: For i ndwelling catheters, specimen collection is acceptable on catheter day 1 and 2 only. ? Performed By: #### X M #### [facility] (DEFAULT) [address] [address] WBC Urine 11 - 20 Abnormal 0 - [address] [facility] Comment on above: Order Comment: For i ndwelling catheters, specimen collection is acceptable on catheter day 1 and 2 only. ? Performed By: #### X M #### [facility] (DEFAULT) [address] [address] URINE CULTUREon 08-24-2024 Ampicillin [Susceptibility] <= Invalid Interpretation Code [facility] Comment on above: Order Comment: For i ndwelling catheters, specimen collection is acceptable on catheter day 1 and 2 only. Ashley top vacutainer. Urine must be to the fill line to process (4mls). If minimum volume, send urine in a yellow top vacutainer tube. For indwelling catheters, specimen collection is acceptable on catheter day 1 and 2 only. ? Performed By: #### U R #### [facility] (DEFAULT) [address] [address] Nitrofurantoin [Susceptibility] <= Invalid Interpretation Code [facility] Comment on above: Order Comment: For i ndwelling catheters, specimen collection is acceptable on catheter day 1 and 2 only. Ashley top vacutainer. Urine must be to the fill line to process (4mls). If minimum volume, send urine in a yellow top vacutainer tube. For indwelling catheters, specimen collection is acceptable on catheter day 1 and 2 only. ? Performed By: #### U R #### [facility] (DEFAULT) [address] [address] Penicillin [Susceptibility] 8 ug/mL Invalid Interpretation Code [facility] Comment on above: Order Comment: For i ndwelling catheters, specimen collection is acceptable on catheter day 1 and 2 only. Ashley top vacutainer. Urine must be to the fill line to process (4mls). If minimum volume, send urine in a yellow top vacutainer tube. For indwelling catheters, specimen collection is acceptable on catheter day 1 and 2 only. ? Performed By: #### U R #### [facility] (DEFAULT) [address] [place] [phone] Vancomycin [Susceptibility] 1 ug/mL Invalid Interpretation Code [facility] Comment on above: Order Comment: For i ndwelling catheters, specimen collection is acceptable on catheter day 1 and 2 only. Ashley top vacutainer. Urine must be to the fill line to process (4mls). If minimum volume, send urine in a yellow top vacutainer tube. For indwelling catheters, specimen collection is acceptable on catheter day 1 and 2 only. ? Performed By: #### U R #### [facility] (DEFAULT) [address] [address] CBC,PLATELETSon 08-22-2024 Hematocrit (Bld) [Volume fraction] 42.7 % Normal 34.9-44.[address] [facility] Comment on above: Performed By: #### X M #### [facility] (DEFAULT) [address] [address] Hemoglobin (Bld) [Mass/Vol] 12.8 g/dL Normal 11.4-15.[address] [facility] Comment on above: Performed By: #### X M #### [facility] (DEFAULT) [address] [place] [address] MCV (RBC) [Entitic vol] 88.4 fL Normal 79.6-97.7 [facility] Comment on above: Performed By: #### X M #### [facility] (DEFAULT) [address] [place] [address] Mean Cell Hgb 26.5 pg Normal 25.9-33.[address] [facility] Comment on above: Performed By: #### X M #### [facility] (DEFAULT) [address] [place] [address] 46818 Mean Cell Hgb Conc 30.0 g/dL Low 31.4-35.9 [facility] Comment on above: Performed By: #### X M #### [facility] (DEFAULT) [address] [place] [address]179 Platelet mean volume (Bld) [Entitic vol] 12.0 fL Normal 8.5-12.[address] [facility] Comment on above: Performed By: #### X M #### [facility] (DEFAULT) [address] [place] [address] 21412 Platelets (Bld) [#/Vol] 188 10*3/uL Normal 150-[address] [facility] Comment on above: Performed By: #### X M #### [facility] (DEFAULT) [address] [place] [address] 72771 RBC (Bld) [#/Vol] 4.83 10*6/uL Normal 3.91-5.[address] [facility] Comment on above: Performed By: #### X M #### [facility] (DEFAULT) [address] [place] [address] 11855 RBC Distribution 13.9 % Normal 10.8-14.9 [facility] Comment on above: Performed By: #### X M #### [facility] (DEFAULT) [address] [place] [address] 79825 WBC (Bld) [#/Vol] 6.11 10*3/uL Normal 3.99-11.[address] [facility] Comment on above: Performed By: #### X M #### [facility] (DEFAULT) [address] [place] [address]34 Hematocrit (Bld) [Volume fraction] 38.1 % Normal 34.9-44.[address] [facility] Comment on above: Performed By: #### U [id number] #### [facility] (DEFAULT) [address] [place] [address]309 Hemoglobin (Bld) [Mass/Vol] 11.7 g/dL Normal 11.4-15.[address] [facility] Comment on above: Performed By: #### U [id number] #### [facility] (DEFAULT) [address] [place] [address] 7[address]17 MCV (RBC) [Entitic vol] 87.4 fL Normal 79.6-97.7 [facility] Comment on above: Performed By: #### U [id number] #### [facility] (DEFAULT) [address] [place] [address]396 Mean Cell Hgb 26.8 pg Normal 25.9-33.[address] [facility] Comment on above: Performed By: #### U [id number] #### [facility] (DEFAULT) [address] [place] [address] 22843 Mean Cell Hgb Conc 30.7 g/dL Low 31.4-35.9 [facility] Comment on above: Performed By: #### U [id number] #### [facility] (DEFAULT) [address] [place] [address] Platelet mean volume (Bld) [Entitic vol] 11.4 fL Normal 8.5-12.[address] [facility] Comment on above: Performed By: #### U [id number] #### [facility] (DEFAULT) [address] [place] [address]697 Platelets (Bld) [#/Vol] 164 10*3/uL Normal 150-[address] [facility] Comment on above: Performed By: #### U [id number] #### [facility] (DEFAULT) [address] [place] [address] 17390 RBC (Bld) [#/Vol] 4.36 10*6/uL Normal 3.91-5.[address] [facility] Comment on above: Performed By: #### U [id number] #### [facility] (DEFAULT) [address] [place] [address] 30054 RBC Distribution 13.9 % Normal 10.8-14.9 [facility] Comment on above: Performed By: #### U [id number] #### [facility] (DEFAULT) [address] [place] [address] WBC (Bld) [#/Vol] 6.45 10*3/uL Normal 3.99-11.[address] [facility] Comment on above: Performed By: #### U [id number] #### [facility] (DEFAULT) [address] [place] [address] [phone] CHEM 7 (LYTES,BUN,CREA,GLUC) on 08-22-2024 Anion gap [Moles/Vol] 12 mmol/L Normal 7-17 [facility] Comment on above: Performed By: #### U [id number] #### [facility] (DEFAULT) [address] [place] [address]59 Chloride [Moles/Vol] 102 mmol/L Normal 98-[address] [facility] Comment on above: Performed By: #### U [id number] #### [facility] (DEFAULT) [address] [place] [address] 26479 CO2 [Moles/Vol] 29 mmol/L Normal 21-31 [facility] Comment on above: Performed By: #### U [id number] #### [facility] (DEFAULT) [address] [place] [address] 63351 Creatinine [Mass/Vol] 0.60 mg/dL Normal 0.50-1.20 [facility] Comment on above: Performed By: #### U [id number] #### [facility] (DEFAULT) [address] [place] [address] 43204 eGFR, CKD-EPI, Female > Normal >=60 [facility] Comment on above: Result Comment: Repo rted eGFR is based on the CKD-EPI 2020 equation using creatinine, age, and sex. Performed By: #### U [id number] #### U [facility] (DEFAULT) [address] [place] [address] 62497 Glucose [Mass/Vol] 94 mg/dL Normal Nonfastin -179 mg/dL; Fastin-[address] [facility] Comment on above: Performed By: #### U [id number] #### U [facility] (DEFAULT) [address] [place] [address] 05393 Osmolality [Osmolality] 290 mosm/kg Normal 278-[address] [facility] Comment on above: Performed By: #### U [id number] #### U [facility] (DEFAULT) [address] [place] [address] 98596 Potassium [Moles/Vol] 4.4 mmol/L Normal 3.5-5.0 [facility] Comment on above: Performed By: #### U [id number] #### [facility] (DEFAULT) [address] [place] [address] 66095 Sodium [Moles/Vol] 139 mmol/L Normal 135-145 [facility] Comment on above: Performed By: #### U [id number] #### U [facility] (DEFAULT) [address] [place] [address] 87761 Urea nitrogen [Mass/Vol] 10 mg/dL Normal 7-[address] [facility] Comment on above: Performed By: #### U [id number] #### U [facility] (DEFAULT) [address] [place] [address] 95708 Urea nitrogen/Creatinine [Mass ratio] 17 mg/mg Normal [facility] Comment on above: Performed By: #### U [id number] #### U [facility] (DEFAULT) [address] [place] [address] 74418 Anion gap [Moles/Vol] 11 mmol/L Normal 7-17 [facility] Comment on above: Performed By: #### H EMOGC #### U [facility] (DEFAULT) [address] [place] [address] 64681 Chloride [Moles/Vol] 101 mmol/L Normal 98-[address] [facility] Comment on above: Performed By: #### H EMOGC #### U [facility] (DEFAULT) [address] [place] [address] 23323 CO2 [Moles/Vol] 31 mmol/L Normal 21-31 [facility] Comment on above: Performed By: #### H EMOGC #### U [facility] (DEFAULT) [address] [place] [address] 05409 Creatinine [Mass/Vol] 0.61 mg/dL Normal 0.50-1.20 [facility] Comment on above: Performed By: #### H EMOGC #### U [facility] (DEFAULT) [address] [place] [address] 73837 eGFR, CKD-EPI, Female > Normal >=60 [facility] Comment on above: Result Comment: Repo rted eGFR is based on the CKD-EPI 2020 equation using creatinine, age, and sex. Performed By: #### H EMOGC #### [facility] (DEFAULT) [address] [place] [address] 08029 Glucose [Mass/Vol] 122 mg/dL Normal Nonfastin -179 mg/dL; Fastin-[address] [facility] Comment on above: Performed By: #### H EMOGC #### U [facility] (DEFAULT) [address] [place] [address] 61149 Osmolality [Osmolality] 291 mosm/kg Normal 278-[address] [facility] Comment on above: Performed By: #### H EMOGC #### [facility] (DEFAULT) [address] [place] [address] 85670 Potassium [Moles/Vol] 3.9 mmol/L Normal 3.5-5.0 [facility] Comment on above: Performed By: #### H EMOGC #### [facility] (DEFAULT) [address] [place] [address] 63265 Sodium [Moles/Vol] 139 mmol/L Normal 135-145 [facility] Comment on above: Performed By: #### H EMOGC #### [facility] (DEFAULT) [address] [place] [address] 12312 Urea nitrogen [Mass/Vol] 10 mg/dL Normal 7-[address] [facility] Comment on above: Performed By: #### H EMOGC #### [facility] (DEFAULT) [address] [place] [address] 54795 Urea nitrogen/Creatinine [Mass ratio] 16 mg/mg Normal [facility] Comment on above: Performed By: #### H EMOGC #### [facility] (DEFAULT) [address] [place] [address] 49747 IONIZED CALCIUM, WHOLE BLOOD on 08-22-2024 ICA 4.26 mg/dL Low 4.60-5.[address] [facility] Comment on above: Performed By: #### X M #### [facility] (DEFAULT) [address] [place] [address] 28271 ICA 4.24 mg/dL Low 4.60-5.[address] [facility] Comment on above: Performed By: #### H EMOGC #### [facility] (DEFAULT) [address] [place] [address] 51603 MAGNESIUMon 08-22-2024 Magnesium [Mass/Vol] 1.9 mg/dL Normal 1.6-2.[address] [facility] Comment on above: Performed By: #### U [id number] #### [facility] (DEFAULT) [address] [place] [address] 80483 Magnesium [Mass/Vol] 2.0 mg/dL Normal 1.6-2.[address] [facility] Comment on above: Performed By: #### H EMOGC #### [facility] (DEFAULT) [address] [place] [address] 29733 PHOSPHATE, INORGANICon 08-22 Phosphorous 3.7 mg/dL Normal 2.2-4.[address] [facility] Comment on above: Performed By: #### M GO, IPB, CHM7 ####[facility] (DEFAULT)[address] [place], [place] [address], [place] [address] Phosphorous 3.8 mg/dL Normal 2.2-4.[address] [facility] Comment on above: Performed By: #### H EMO #### [facility] (DEFAULT) [address] [place] [address] 45520 CBC,PLATELETSon 08-21-2024 Hematocrit (Bld) [Volume fraction] 39.1 % Normal 34.9-44.[address] [facility] Comment on above: Performed By: #### U [id number] #### [facility] (DEFAULT) [address] [place] [address] 74711 Hemoglobin (Bld) [Mass/Vol] 12.1 g/dL Normal 11.4-15.[address] [facility] Comment on above: Performed By: #### U [id number] #### [facility] (DEFAULT) [address] [place] [address] 96225 MCV (RBC) [Entitic vol] 85.6 fL Normal 79.6-97.7 [facility] Comment on above: Performed By: #### U [id number] #### [facility] (DEFAULT) [address] [place] [address] 49190 Mean Cell Hgb 26.5 pg Normal 25.9-33.[address] [facility] Comment on above: Performed By: #### U [id number] #### [facility] (DEFAULT) [address] [place] [address] 57185 Mean Cell Hgb Conc 30.9 g/dL Low 31.4-35.9 [facility] Comment on above: Performed By: #### U [id number] #### [facility] (DEFAULT) [address] [place] [address] 91181 Platelet mean volume (Bld) [Entitic vol] 11.4 fL Normal 8.5-12.[address] [facility] Comment on above: Performed By: #### U [id number] #### [facility] (DEFAULT) [address] [place] [address] 98398 Platelets (Bld) [#/Vol] 191 10*3/uL Normal 150-[address] [facility] Comment on above: Performed By: #### U [id number] #### [facility] (DEFAULT) [address] [place] [address] 96148 RBC (Bld) [#/Vol] 4.57 10*6/uL Normal 3.91-5.[address] [facility] Comment on above: Performed By: #### U [id number] #### [facility] (DEFAULT) [address] [place] [address] 25060 RBC Distribution 13.8 % Normal 10.8-14.9 [facility] Comment on above: Performed By: #### U [id number] #### [facility] (DEFAULT) [address] [place] [address] 59732 WBC (Bld) [#/Vol] 11.05 10*3/uL Normal 3.99-11.[address] [facility] Comment on above: Performed By: #### U [id number] #### [facility] (DEFAULT) [address] [place] [address] 30329 CHEM 7 (LYTES,BUN,CREA,GLUC) on 08-21-2024 Anion gap [Moles/Vol] 10 mmol/L Normal 7-17 [facility] Comment on above: Performed By: #### S URGP #### [facility] (DEFAULT) [address] [place] [address] 73046 Chloride [Moles/Vol] 101 mmol/L Normal 98-[address] [facility] Comment on above: Performed By: #### S URGP #### [facility] (DEFAULT) [address] [place] [address] 05226 CO2 [Moles/Vol] 32 mmol/L High 21-31 [facility] Comment on above: Performed By: #### S URGP #### [facility] (DEFAULT) [address] [place] [address] 82865 Creatinine [Mass/Vol] 0.57 mg/dL Normal 0.50-1.20 [facility] Comment on above: Performed By: #### S URGP #### [facility] (DEFAULT) [address] [place] [address] 87751 eGFR, CKD-EPI, Female > Normal >=60 [facility] Comment on above: Result Comment: Repo rted eGFR is based on the CKD-EPI 2020 equation using creatinine, age, and sex. Performed By: #### S URGP #### [facility] (DEFAULT) [address] [place] [address] 86070 Glucose [Mass/Vol] 125 mg/dL Normal Nonfastin -179 mg/dL; Fastin-[address] [facility] Comment on above: Performed By: #### S URGP #### [facility] (DEFAULT) [address] [place] [address] 70705 Osmolality [Osmolality] 291 mosm/kg Normal 278-[address] [facility] Comment on above: Performed By: #### S URGP #### [facility] (DEFAULT) [address] [place] [address] 22825 Potassium [Moles/Vol] 4.1 mmol/L Normal 3.5-5.0 [facility] Comment on above: Performed By: #### S URGP #### [facility] (DEFAULT) [address] [place] [address] 31624 Sodium [Moles/Vol] 139 mmol/L Normal 135-145 [facility] Comment on above: Performed By: #### S URGP #### [facility] (DEFAULT) [address] [place] [address] 36247 Urea nitrogen [Mass/Vol] 8 mg/dL Normal 7-[address] [facility] Comment on above: Performed By: #### S URGP #### [facility] (DEFAULT) [address] [place] [address] 89033 Urea nitrogen/Creatinine [Mass ratio] 14 mg/mg Normal [facility] Comment on above: Performed By: #### S URGP #### [facility] (DEFAULT) [address] [place] [address] 61567 IONIZED CALCIUM, WHOLE BLOOD on 08-21-2024 ICA 4.52 mg/dL Low 4.60-5.[address] [facility] Comment on above: Performed By: #### U R #### [facility] (DEFAULT) [address] [place] [address] 00308 MAGNESIUMon 08-21-2024 Magnesium [Mass/Vol] 1.8 mg/dL Normal 1.6-2.[address] [facility] Comment on above: Performed By: #### S URGP #### [facility] (DEFAULT) [address] [place] [address] 88839 PHOSPHATE, INORGANICon 08-21 Phosphorous 3.6 mg/dL Normal 2.2-4.[address] [facility] Comment on above: Performed By: #### S URGP #### [facility] (DEFAULT) [address] [place] [address] 20900 XR CHEST 1 VIEW PORTABLEon 0 08-21-2024 XR CHEST 1 VIEW PORTABLE EXAM: XR CHEST 1 VIEW PORTABLE, 08/21/2024 11:22 AM COMPARISON: No prior studies available for comparison. CLINICAL INDICATIONS: O2 requirement RELEVANT CLINICAL HISTORY: FINDINGS: (Adequate technique) Implanted Devices: None Thorax: No acute findings in the chest. The lungs are grossly clear with no focal airspace disease or overt pulmonary edema. No definite pleural effusion or pneumothorax. Heart size is within normal limits. Chest wall structures are unremarkable. IMPRESSION: No acute cardiopulmonary findings Normal [facility] CBC,PLATELETSon 08-20-2024 Hematocrit (Bld) [Volume fraction] 45.1 % High 34.9-44.[address] [facility] Comment on above: Performed By: #### H EMOGC #### [facility] (DEFAULT) [address] [place] [address] 00941 Hemoglobin (Bld) [Mass/Vol] 13.5 g/dL Normal 11.4-15.[address] [facility] Comment on above: Performed By: #### H EMOGC #### [facility] (DEFAULT) [address] [place] [address] 54662 MCV (RBC) [Entitic vol] 88.4 fL Normal 79.6-97.7 [facility] Comment on above: Performed By: #### H EMOGC #### [facility] (DEFAULT) [address] [place] [address] 69550 Mean Cell Hgb 26.5 pg Normal 25.9-33.[address] [facility] Comment on above: Performed By: #### H EMOGC #### [facility] (DEFAULT) [address] 31470 Mean Cell Hgb Conc 29.9 g/dL Low 31.4-35.9 [facility] Comment on above: Performed By: #### H EMOGC #### [facility] (DEFAULT) [address] [place] [address] 06798 Platelet mean volume (Bld) [Entitic vol] 11.4 fL Normal 8.5-12.[address] [facility] Comment on above: Performed By: #### H EMOGC #### [facility] (DEFAULT) [address] [address]666 Platelets (Bld) [#/Vol] 190 10*3/uL Normal 150-[address] [facility] Comment on above: Performed By: #### H EMOGC #### [facility] (DEFAULT) [address] [place] [address] 02205 RBC (Bld) [#/Vol] 5.10 10*6/uL High 3.91-5.[address] [facility] Comment on above: Performed By: #### H [facility] #### [facility] (DEFAULT) [address] [place] [address] 53129 RBC Distribution 13.6 % Normal 10.8-14.9 [facility] Comment on above: Performed By: #### H [facility] #### [facility] (DEFAULT) [address] [place] [address] 37963 WBC (Bld) [#/Vol] 6.45 10*3/uL Normal 3.99-11.[address] [facility] Comment on above: Performed By: #### H [facility] #### [facility] (DEFAULT) [address] [place] [address] 07931 CHEM 7 (LYTES,BUN,CREA,GLUC) on 08-20-2024 Anion gap [Moles/Vol] 15 mmol/L Normal 7-17 [facility] Comment on above: Performed By: #### X M #### [facility] (DEFAULT) [address] [place] [address] 86400 Chloride [Moles/Vol] 104 mmol/L Normal 98-[address] [facility] Comment on above: Performed By: #### X M #### [facility] (DEFAULT) [address] [place] [address] 37559 CO2 [Moles/Vol] 25 mmol/L Normal 21-31 [facility] Comment on above: Performed By: #### X M #### [facility] (DEFAULT) [address] [place] [address] 67792 Creatinine [Mass/Vol] 0.66 mg/dL Normal 0.50-1.20 [facility] Comment on above: Performed By: #### X M #### [facility] (DEFAULT) [address] [place] [address] 65278 eGFR, CKD-EPI, Female > Normal >=60 [facility] Comment on above: Result Comment: Repo rted eGFR is based on the CKD-EPI 2020 equation using creatinine, age, and sex. Performed By: #### X M #### [facility] (DEFAULT) [address] [place] [address] 64440 Glucose [Mass/Vol] 101 mg/dL Normal Nonfastin -179 mg/dL; Fastin-[address] [facility] Comment on above: Performed By: #### X M #### [facility] (DEFAULT) [address] [place] [address] 19333 Osmolality [Osmolality] 292 mosm/kg Normal 278-[address] [facility] Comment on above: Performed By: #### X M #### [facility] (DEFAULT) [address] [place] [address] 56915 Potassium [Moles/Vol] 4.2 mmol/L Normal 3.5-5.0 [facility] Comment on above: Performed By: #### X M #### [facility] (DEFAULT) [address] [place] [address] 57699 Sodium [Moles/Vol] 140 mmol/L Normal 135-145 [facility] Comment on above: Performed By: #### X M #### [facility] (DEFAULT) [address] [place] [address] 48450 Urea nitrogen [Mass/Vol] 8 mg/dL Normal 7-[address] [facility] Comment on above: Performed By: #### X M #### [facility] (DEFAULT) [address] [place] [address] 72484 Urea nitrogen/Creatinine [Mass ratio] 12 mg/mg Normal [facility] Comment on above: Performed By: #### X M #### [facility] (DEFAULT) [address] [place] [address] HEAD WITHOUT CONTRASTon 0 08-20-2024 CT HEAD WITHOUT CONTRAST EXAM: CT HEAD WITHOUT CONTRAST, 08/20/2024 2:44 PM COMPARISON: CT head dated August 18, 2024 CLINICAL INDICATIONS: 69-year-old female. postop AVM resection & hematoma evac TECHNIQUE: A series of transaxial computerized tomographic images are obtained from base of skull to vertex without intravenous contrast. Axial whole-head and thin section posterior fossa slices are provided. Reformats: Sagittal and coronal. FINDINGS: Postoperative changes from left parietal craniotomy for intraparenchymal hematoma evacuation and AVM resection. Expected scattered foci of pneumocephalus. Dominant collection of air anterior to the bilateral frontal lobes. Small curvilinear foci of hyperdensity in the upper left frontoparietal extra-axial spaces, compatible with minimal blood. No discrete residual space-occupying hematoma. Minimal surrounding edema is not significantly changed. There is new mild rightward midline shift measuring approximately 3 mm and mildly increased left cerebral sulcal effacement. Angela-white matter differentiation is preserved. No acute large territory infarction is seen. Patchy hypoattenuation in the periventricular and deep white matter is nonspecific but compatible with chronic microvascular changes. No significant ventriculomegaly. Evidence of prior bilateral cataract surgery. Visualized paranasal sinuses show scattered mucosal thickening. Visualized mastoid air cells are clear. Atherosclerotic calcifications of the major arteries at the skull base are noted. IMPRESSION: 1. Interval left parietal craniotomy for intraparenchymal hematoma evacuation. Mild postoperative pneumocephalus and minimal extra-axial blood. 2. Mildly increased left cerebral mass effect may be related to a left frontal convexity air collection. I personally viewed and interpreted these images and I have reviewed and approved this report. Normal [facility] MAGNESIUMon 08-20-2024 Magnesium [Mass/Vol] 1.9 mg/dL Normal 1.6-2.[address] [facility] Comment on above: Performed By: #### X M #### [facility] (DEFAULT) [address] [address] PHOSPHATE, INORGANICon 08-20 Phosphorous 4.2 mg/dL Normal 2.2-4.[address] [facility] Comment on above: Performed By: #### X M #### [facility] (DEFAULT) [address] [address] PT,INR,PTTon 08-20-2024 aPTT Coag (Bld) [Time] 24.8 s Normal 24.0-34.3 [facility] Comment on above: Performed By: #### H EMOGC #### [facility] (DEFAULT) [address] [place] [address] 69273 INR Coag (PPP) [Relative time] 0.9 {INR} Normal 0.9-1.[address] [facility] Comment on above: Performed By: #### H EMOGC #### [facility] (DEFAULT) [address] [address] PT Coag (PPP) [Time] 12.5 s Normal 11.9-14.[address] [facility] Comment on above: Performed By: #### H EMOGC #### [facility] (DEFAULT) [address] [place] [address] SURG PATH REQUESTon 08-21-19 Case Report Normal [facility] Comment on above: Result Comment: Surg ical Pathology Report Case: [id number] Authorizing Provider: Grady Mcdonald MD Collected: 08/20/2024 11:18 AM Ordering Location: [facility] Received: 08/20/2024 01:15 PM Pathologist: Vitaliy Peace MD Specimens: A) - SURG PATH, left parietal lesion B) - SURG PATH, left parietal hematoma C) - SURG PATH, left parietal vascular malformation Performed By: #### S URGP #### [facility] (DEFAULT) [address] [address] Clinical History Preop Diagnosis: Fistula. History of Crohn's disease, restless leg syndrome, and atrial fibrillation. Normal 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 Normal [facility] Comment on above: Performed By: #### S URGP #### [facility] (DEFAULT) [address] [place] [address] Gross Description Normal [facility] Comment on above: Result Comment: The specimens are received in three properly labeled containers with the patient's name and accession number. A. The specimen is designated left parietal lesion and consists of a 0.4 x 0.4 x 0.2 cm red-pink fragment of soft tissue. TE 1 B. The specimen is designated left parietal hematoma and consists of a 2.5 x 2.5 x 0.4 cm aggregate of red-brown clotted blood. No discrete soft tissue is identified. TE 1 C. The specimen is designated left parietal vascular malformation and consists of a 1.0 x 0.7 x 0.4 cm red-pink hemorrhagic fragment of soft tissue. The specimen is bisected. TE 1 Lab Use Only: JobID [id number] Grosser for this case was: Man Zambrano Performed By: #### S URGP #### [facility] (DEFAULT) [address] [place] [address] [facility] Comment on above: Result Comment: A mi croscopic examination was performed. All controls show appropriate reactivity. All immunohistochemistry (IHC), in situ hybridization (LELE), and histochemical tests were developed by and are performed at the [facility] Clinical Laboratory, Histology and IHC Lab, [address] [place] [address]. All Immunofluorescent (IF) tests were developed by and are performed at the [facility], Renal Division, [address] [place] [address]. All tests reported here, except for PD-L1, have not been cleared by or approved by the [place] Food and Drug Administration (FDA). The laboratory is regulated under CLIA as qualified to perform high-complexity testing. The tests are used for clinical purposes. They should not be regarded as investigational or for research. Performed By: #### S URGP #### [facility] (DEFAULT) [address] [place] [address] Pathologic Diagnosis Normal [facility] [facility] Comment on above: Result Comment: A. L eft parietal lesion, excision: Meningothelial proliferation, calcification, hemorrhage, and reactive vascular proliferation Benign cyst with flat epithelial lining B. Clot, left parietal hematoma, excision: Acute and organizing hemorrhage C. 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 Comment on above: Result Comment: [facility] For Immediate Release to [facility] Yes [address] [address] Performed By: #### S URGP #### [facility] (DEFAULT) [address] [address] TYPE AND SCREENon 08-20-2024 ABO/RH(D) TYPE Positive Normal [facility] Comment on above: Performed By: #### X M #### [facility] (DEFAULT) [address] [address] Specimen Expiration 08/23/2024 23:[address] [facility] Comment on above: Performed By: #### X M #### [facility] (DEFAULT) [address] [address] CBC,PLATELETSon 08-19-2024 Hematocrit (Bld) [Volume fraction] 42.1 % Normal 34.9-44.[address] [facility] Comment on above: Performed By: #### S URGP #### [facility] (DEFAULT) [address] [address] Hemoglobin (Bld) [Mass/Vol] 13.0 g/dL Normal 11.4-15.[address] [facility] Comment on above: Performed By: #### S URGP #### [facility] (DEFAULT) [address] [address] MCV (RBC) [Entitic vol] 85.9 fL Normal 79.6-97.7 [facility] Comment on above: Performed By: #### S URGP #### [facility] (DEFAULT) [address] [address] Mean Cell Hgb 26.5 pg Normal 25.9-33.[address] [facility] Comment on above: Performed By: #### S URGP #### [facility] (DEFAULT) [address] [address] Mean Cell Hgb Conc 30.9 g/dL Low 31.4-35.9 [facility] Comment on above: Performed By: #### S URGP #### [facility] (DEFAULT) [address] [address] Platelet mean volume (Bld) [Entitic vol] 11.3 fL Normal 8.5-12.[address] [facility] Comment on above: Performed By: #### S URGP #### [facility] (DEFAULT) [address] [address] Platelets (Bld) [#/Vol] 174 10*3/uL Normal 150-[address] [facility] Comment on above: Performed By: #### S URGP #### [facility] (DEFAULT) [address] [address] RBC (Bld) [#/Vol] 4.90 10*6/uL Normal 3.91-5.[address] [facility] Comment on above: Performed By: #### S URGP #### [facility] (DEFAULT) [address] [address] RBC Distribution 13.8 % Normal 10.8-14.9 [facility] Comment on above: Performed By: #### S URGP #### [facility] (DEFAULT) [address] [address] WBC (Bld) [#/Vol] 5.76 10*3/uL Normal 3.99-11.[address] [facility] Comment on above: Performed By: #### S URGP #### [facility] (DEFAULT) [address] [place] [address] CHEM 7 (LYTES,BUN,CREA,GLUC) on 08-19-2024 Anion gap [Moles/Vol] 11 mmol/L Normal 7-17 [facility] Comment on above: Performed By: #### U R #### [facility] (DEFAULT) [address] [place] [address] Chloride [Moles/Vol] 103 mmol/L Normal 98-[address] [facility] Comment on above: Performed By: #### U R #### [facility] (DEFAULT) [address] [place] [address] CO2 [Moles/Vol] 30 mmol/L Normal 21-31 [facility] Comment on above: Performed By: #### U R #### [facility] (DEFAULT) [address] [place] [address] Creatinine [Mass/Vol] 0.61 mg/dL Normal 0.50-1.20 [facility] Comment on above: Performed By: #### U R #### [facility] (DEFAULT) [address] [place] [address] eGFR, CKD-EPI, Female > Normal >=60 [facility] Comment on above: Result Comment: Repo rted eGFR is based on the CKD-EPI 2020 equation using creatinine, age, and sex. Performed By: #### U R #### [facility] (DEFAULT) [address] [place] [address] Glucose [Mass/Vol] 104 mg/dL Normal Nonfastin -179 mg/dL; Fastin-[address] [facility] Comment on above: Performed By: #### U R #### [facility] (DEFAULT) [address] [place] [address] Osmolality [Osmolality] 292 mosm/kg Normal 278-[address] [facility] Comment on above: Performed By: #### U R #### [facility] (DEFAULT) [address] [place] [address] Potassium [Moles/Vol] 4.2 mmol/L Normal 3.5-5.0 [facility] Comment on above: Performed By: #### U R #### [facility] (DEFAULT) [address] [place] [address] Sodium [Moles/Vol] 140 mmol/L Normal 135-145 [facility] Comment on above: Performed By: #### U R #### [facility] (DEFAULT) [address] [place] [address] Urea nitrogen [Mass/Vol] 9 mg/dL Normal 7-[address] [facility] Comment on above: Performed By: #### U R #### [facility] (DEFAULT) [address] [place] [address] Urea nitrogen/Creatinine [Mass ratio] 15 mg/mg Normal [facility] Comment on above: Performed By: #### U R #### [facility] (DEFAULT) [address] [place] [address] HEAD WITHOUT CONTRASTon 0 08-19-2024 CT HEAD WITHOUT CONTRAST EXAM: CT HEAD WITHOUT CONTRAST, 08/18/2024 10:13 PM COMPARISON: CT HEAD WITHOUT CONTRAST August 18, 2024 CLINICAL INDICATIONS: 69 years Female 24H after admission. Re-eval L parietal ICH. Obtain at 2200 08/18/24 RELEVANT CLINICAL HISTORY: TECHNIQUE: A series of transaxial computerized tomographic images are obtained from base of skull to vertex without intravenous contrast. Axial whole-head and thin section posterior fossa slices are provided. Reformats: Sagittal and coronal. FINDINGS: Stable intraparenchymal hematoma in the left parietal lobe with mild surrounding edema. No significant mass effect or midline shift. No acute large territory infarction is seen. Patchy periventricular white matter hypoattenuation is noted which is non-specific, but likely due to chronic small vessel ischemic changes. Ventricles are normal in size and configuration for patient age. Prior left parietal craniotomy. Evidence of prior bilateral cataract surgery. Visualized paranasal sinuses are clear. IMPRESSION: No significant interval change. Stable left parietal lobe hematoma. Normal [facility] MAGNESIUMon 08-19-2024 Magnesium [Mass/Vol] 1.9 mg/dL Normal 1.6-2.[address] [facility] Comment on above: Performed By: #### S URGP #### [facility] (DEFAULT) [address] [place] [address] PHOSPHATE, INORGANICon 08-19 Phosphorous 4.5 mg/dL Normal 2.2-4.[address] [facility] Comment on above: Performed By: #### U R #### [facility] (DEFAULT) [address] [place] [address] PT,INR,PTTon 08-19-2024 aPTT Coag (Bld) [Time] 25.4 s Normal 24.0-34.3 [facility] Comment on above: Performed By: #### X M #### [facility] (DEFAULT) [address] [place] [address] INR Coag (PPP) [Relative time] 1.0 {INR} Normal 0.9-1.[address] [facility] Comment on above: Performed By: #### X M #### [facility] (DEFAULT) [address] [place] [address] PT Coag (PPP) [Time] 13.2 s Normal 11.9-14.[address] [facility] Comment on above: Performed By: #### X M #### [facility] (DEFAULT) [address] [place] [address] ABORH TYPE RECONFIRMATIONon 08-18-2024 ABO/RH(D) TYPE Positive Normal [facility] Comment on above: Performed By: #### T YPEC #### [facility] (DEFAULT) [address] [place] [address] CALCIUMon 08-18-2024 Calcium [Mass/Vol] 8.0 mg/dL Low 8.6-10.5 [facility] Comment on above: Performed By: #### U [id number] #### [facility] (DEFAULT) [address] [place] [address] CBC AND ELECTRONIC DIFFon Basophils (Bld) [#/Vol] 0.08 10*3/uL Normal 0.00-0.[address] [facility] Comment on above: Performed By: #### U R #### [facility] (DEFAULT) [address] [place] [address] Basophils/100 WBC (Bld) 1.3 % Normal [facility] Comment on above: Performed By: #### U R #### [facility] (DEFAULT) [address] [place] [address] DIFF STATUS Electronic Differential Normal [facility] Comment on above: Performed By: #### U R #### [facility] (DEFAULT) [address] [place] [address] Eosinophils (Bld) [#/Vol] 0.16 10*3/uL Normal 0.00-0.[address] [facility] Comment on above: Performed By: #### U R #### [facility] (DEFAULT) [address] [place] [address] Eosinophils/100 WBC (Bld) 2.6 % Normal [facility] Comment on above: Performed By: #### U R #### [facility] (DEFAULT) [address] [place] [address] Hematocrit (Bld) [Volume fraction] 41.5 % Normal 34.9-44.[address] [facility] Comment on above: Performed By: #### U R #### [facility] (DEFAULT) [address] [place] [address] Hemoglobin (Bld) [Mass/Vol] 12.7 g/dL Normal 11.4-15.[address] [facility] Comment on above: Performed By: #### U R #### [facility] (DEFAULT) [address] [place] [address] Immature Grans % 0.3 % Normal [facility] Comment on above: Performed By: #### U R #### [facility] (DEFAULT) [address] [address] Immature Grans Absolute < Normal <=0.08 [facility] Comment on above: Performed By: #### U R #### [facility] (DEFAULT) [address] [address] Lymphocytes (Bld) [#/Vol] 1.80 10*3/uL Normal 1.16-3.[address] [facility] Comment on above: Performed By: #### U R #### [facility] (DEFAULT) [address] [address] Lymphocytes/100 WBC (Bld) 28.8 % Normal [facility] Comment on above: Performed By: #### U R #### [facility] (DEFAULT) [address] [address] MCV (RBC) [Entitic vol] 86.1 fL Normal 79.6-97.7 [facility] Comment on above: Performed By: #### U R #### [facility] (DEFAULT) [address] [address] Mean Cell Hgb 26.3 pg Normal 25.9-33.[address] [facility] Comment on above: Performed By: #### U R #### [facility] (DEFAULT) [address] [address] Mean Cell Hgb Conc 30.6 g/dL Low 31.4-35.9 [facility] Comment on above: Performed By: #### U R #### [facility] (DEFAULT) [address] [address] Monocytes (Bld) [#/Vol] 0.47 10*3/uL Normal 0.22-0.[address] [facility] Comment on above: Performed By: #### U R #### [facility] (DEFAULT) [address] [place] [address] Monocytes/100 WBC (Bld) 7.5 % Normal [facility] Comment on above: Performed By: #### U R #### [facility] (DEFAULT) [address] [place] [address] Nucleated RBC 0.0 /100 WBC Normal <=0.2 [facility] Comment on above: Performed By: #### U R #### [facility] (DEFAULT) [address] [place] [address] Platelet mean volume (Bld) [Entitic vol] 11.4 fL Normal 8.5-12.[address] [facility] Comment on above: Performed By: #### U R #### [facility] (DEFAULT) [address] [place] [address] Platelets (Bld) [#/Vol] 194 10*3/uL Normal 150-[address] [facility] Comment on above: Performed By: #### U R #### [facility] (DEFAULT) [address] [place] [address] RBC (Bld) [#/Vol] 4.82 10*6/uL Normal 3.91-5.[address] [facility] Comment on above: Performed By: #### U R #### [facility] (DEFAULT) [address] [place] [address] RBC Distribution 13.7 % Normal 10.8-14.9 [facility] Comment on above: Performed By: #### U R #### [facility] (DEFAULT) [address] [place] [address] Segs + Bands Auto 59.5 % Normal [facility] Comment on above: Performed By: #### U R #### [facility] (DEFAULT) [address] [place] [address] Segs + Bands,Absolute Auto 3.73 K/uL Normal 1.64-7.[address] [facility] Comment on above: Performed By: #### U R #### [facility] (DEFAULT) [address] [place] [address] WBC (Bld) [#/Vol] 6.26 10*3/uL Normal 3.99-11.[address] [facility] Comment on above: Performed By: #### U R #### [facility] (DEFAULT) [address] [place] [address] CHEM 7 (LYTES,BUN,CREA,GLUC) on 08-18-2024 Anion gap [Moles/Vol] 13 mmol/L Normal 7-17 [facility] Comment on above: Performed By: #### U [id number] #### [facility] (DEFAULT) [address] [place] [address] Chloride [Moles/Vol] 103 mmol/L Normal 98-[address] [facility] Comment on above: Performed By: #### U [id number] #### [facility] (DEFAULT) [address] [place] [address] CO2 [Moles/Vol] 25 mmol/L Normal 21-31 [facility] Comment on above: Performed By: #### U [id number] #### [facility] (DEFAULT) [address] [place] [address] Creatinine [Mass/Vol] 0.54 mg/dL Normal 0.50-1.20 [facility] Comment on above: Performed By: #### U [id number] #### [facility] (DEFAULT) [address] [place] [address] eGFR, CKD-EPI, Female > Normal >=60 [facility] Comment on above: Result Comment: Repo rted eGFR is based on the CKD-EPI 2020 equation using creatinine, age, and sex. Performed By: #### U [id number] #### [facility] (DEFAULT) [address] [place] [address] Glucose [Mass/Vol] 103 mg/dL Normal Nonfastin -179 mg/dL; Fastin-[address] [facility] Comment on above: Performed By: #### U [id number] #### [facility] (DEFAULT) [address] [place] [address] Osmolality [Osmolality] 285 mosm/kg Normal 278-[address] [facility] Comment on above: Performed By: #### U [id number] #### [facility] (DEFAULT) [address] [place] [address] Potassium [Moles/Vol] 3.6 mmol/L Normal 3.5-5.0 [facility] Comment on above: Performed By: #### U [id number] #### [facility] (DEFAULT) [address] [place] [address] Sodium [Moles/Vol] 137 mmol/L Normal 135-145 [facility] Comment on above: Performed By: #### U [id number] #### [facility] (DEFAULT) [address] [place] [address]62 Urea nitrogen [Mass/Vol] 8 mg/dL Normal 7-[address] [facility] Comment on above: Performed By: #### U [id number] #### [facility] (DEFAULT) [address] [place] [address]26 Urea nitrogen/Creatinine [Mass ratio] 15 mg/mg Normal [facility] Comment on above: Performed By: #### U [id number] #### [facility] (DEFAULT) [address] [place] [address] HEAD WITHOUT CONTRASTon 0 08-18-2024 CT HEAD WITHOUT CONTRAST EXAM: CT HEAD WITHOUT CONTRAST, 08/18/2024 4:02 AM COMPARISON: CT STROKE HEAD-STROKE ALERT ONLY August 17, 2024 CLINICAL INDICATIONS: 69 years Female Stroke, hemorrhagic; Stroke, hemorrhagic RELEVANT CLINICAL HISTORY: Perform in 6 hours; TECHNIQUE: A series of transaxial computerized tomographic images are obtained from base of skull to vertex without intravenous contrast. Axial whole-head and thin section posterior fossa slices are provided. Reformats: Sagittal and coronal. FINDINGS: Stable appearance of the intraparenchymal hematoma involving the anterior aspect of the left parietal lobe. The surrounding vasogenic edema appears unchanged. No new hemorrhage is identified. Patchy areas of hypoattenuation are again noted in the cerebral white matter likely related to chronic microvascular ischemic changes. Angela-white matter differentiation is otherwise preserved. No acute large territory infarction is seen. Ventricles are normal in size and configuration for patient age. No air-fluid level within the paranasal sinuses. No orbital mass is identified. The mastoids are clear. Postsurgical changes related to prior left parietal craniotomy. Skull base and calvarium appear otherwise intact. No definite lytic lesion is identified. IMPRESSION: Stable intraparenchymal hematoma involving the left parietal lobe. No new hemorrhage. Normal [facility] MAGNESIUMon 08-18-2024 Magnesium [Mass/Vol] 1.5 mg/dL Low 1.6-2.[address] [facility] Comment on above: Performed By: #### U [id number] #### [facility] (DEFAULT) [address] [place] [address] [facility] BRAIN WITH AND WITHOUT CONTRAST EXAM: MRI BRAIN WITH AND WITHOUT CONTRAST, 08/18/2024 04:48 AM COMPARISON: CT head without contrast from earlier the same day and the prior day. Prior day CTA brain/neck. 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 TECHNIQUE: A series of multisequence, multiplanar images of the brain are obtained both before and after intravenous administration of gadolinium-based contrast using standard protocol. Study was performed at 1.5 Stephany. CONTRAST: Gadopiclenol SOLN 1-25 mL; Route of Administration: Intravenous; Dose: 10.4 mL. FINDINGS: Postoperative changes from left parietal craniotomy. Grossly similar size of an intraparenchymal hematoma in the superomedial left parietal lobe along the postcentral gyrus. The hematoma demonstrates heterogenous signal characteristics. Blooming susceptibility artifact and high DWI and low ADC signal are noted. There is mild surrounding vasogenic edema with minimal effacement of the surrounding sulci. No significant midline shift. No abnormal enhancement or underlying mass lesion is identified. No diffusion restriction is identified elsewhere to suggest acute infarct. No abnormal enhancement. Moderate scattered T2/FLAIR hyperintense foci in the periventricular subcortical white matter, which are nonspecific but likely related to chronic small vessel ischemic disease. No extracerebral collection. No sellar or parasellar mass is identified. Posterior fossa is unremarkable. No hydrocephalus. Evidence of prior bilateral cataract surgery. The paranasal sinuses and mastoid air cells are largely clear. The mastoids are generally clear. There is a contrast enhancing focus adjacent to the coronal suture in the right frontal bone there is associated mild restricted diffusion in the same region. 3 mm contrast enhancing nodule in the right internal auditory canal suggestive of a small schwannoma. IMPRESSION: 1. Grossly stable size of left parietal intraparenchymal hematoma. Mild surrounding vasogenic edema with minimal local mass effect. No contrast enhancing nodularity to suggest underlying neoplasm. No evidence of acute infarct. 2. Indeterminate right frontal bone lesion with mild associated contrast enhancement. Attention to this area on follow-up examination is suggested to differentiate between benign processes such as a fibrous osseous lesion versus neoplasm. 3. Small contrast enhancing nodule in the right internal auditory canal suggestive of a small schwannoma. 4. Prior left parietal craniotomy. I personally viewed and interpreted these images and I have reviewed and approved this report. Normal [facility] PHOSPHATE, INORGANICon 08-18 Phosphorous 4.5 mg/dL Normal 2.2-4.[address] [facility] Comment on above: Performed By: #### U [id number] #### [facility] (DEFAULT) [address] [address] PT,INR,PTTon 08-18-2024 aPTT Coag (Bld) [Time] 25.6 s Normal 24.0-34.3 [facility] Comment on above: Performed By: #### X M #### [facility] (DEFAULT) [address] [address] INR Coag (PPP) [Relative time] 1.1 {INR} Normal 0.9-1.[address] [facility] Comment on above: Performed By: #### X M #### [facility] (DEFAULT) [address] [place] [address]757 PT Coag (PPP) [Time] 13.9 s Normal 11.9-14.[address] [facility] Comment on above: Performed By: #### X M #### [facility] (DEFAULT) [address] [place] [address] URINALYSIS REFLEX TO CULTURE PERFORMABLEon 08-18-2024 Appearance (U) Clear Normal Clear [facility] Comment on above: Order Comment: For i ndwelling catheters, specimen collection is acceptable on catheter day 1 and 2 only. ? Performed By: #### U [id number] #### [facility] (DEFAULT) [address] [place] [address] Bacteria ABSENT Normal ABSENT [facility] Comment on above: Order Comment: For i ndwelling catheters, specimen collection is acceptable on catheter day 1 and 2 only. ? Performed By: #### U [id number] #### [facility] (DEFAULT) [address] [place] [address] 70058 Blood Urine Negative Normal Negative [facility] Comment on above: Order Comment: For i ndwelling catheters, specimen collection is acceptable on catheter day 1 and 2 only. ? Performed By: #### U [id number] #### [facility] (DEFAULT) [address] [place] [id number] Color (U) Yellow Normal Yellow [facility] Comment on above: Order Comment: For i ndwelling catheters, specimen collection is acceptable on catheter day 1 and 2 only. ? Performed By: #### U [id number] #### U [facility] (DEFAULT) [address] [place] [address]852 Glucose Ql (U) Negative Normal Negative [facility] Comment on above: Order Comment: For i ndwelling catheters, specimen collection is acceptable on catheter day 1 and 2 only. ? Performed By: #### U [id number] #### [facility] (DEFAULT) [address] [place] [address] 61569 Ketones Ql (U) Negative Normal Negative [facility] Comment on above: Order Comment: For i ndwelling catheters, specimen collection is acceptable on catheter day 1 and 2 only. ? Performed By: #### U [id number] #### [facility] (DEFAULT) [address] [place] [address] 70768 Leukocyte esterase Test strip Ql (U) Negative Normal Negative [facility] Comment on above: Order Comment: For i ndwelling catheters, specimen collection is acceptable on catheter day 1 and 2 only. ? Performed By: #### U [id number] #### [facility] (DEFAULT) [address] [place] [address] 17853 Nitrites Urine Negative Normal Negative [facility] Comment on above: Order Comment: For i ndwelling catheters, specimen collection is acceptable on catheter day 1 and 2 only. ? Performed By: #### U [id number] #### [facility] (DEFAULT) [address] [place] [address] 94072 pH (U) 6.5 [pH] Normal 5.0-7.[address] [facility] Comment on above: Order Comment: For i ndwelling catheters, specimen collection is acceptable on catheter day 1 and 2 only. ? Performed By: #### U [id number] #### [facility] (DEFAULT) [address] [place] [address] 17254 Protein Urine Negative Normal Negative [facility] Comment on above: Order Comment: For i ndwelling catheters, specimen collection is acceptable on catheter day 1 and 2 only. ? Performed By: #### U [id number] #### [facility] (DEFAULT) [address] [place] [address] 73171 RBC Urine 0-2 Normal 0-[address] [facility] Comment on above: Order Comment: For i ndwelling catheters, specimen collection is acceptable on catheter day 1 and 2 only. ? Performed By: #### U [id number] #### [facility] (DEFAULT) [address] [place] [address]1995 Specific [place] Urine 1.011 Normal 1.001-1.035 [facility] Comment on above: Order Comment: For i ndwelling catheters, specimen collection is acceptable on catheter day 1 and 2 only. ? Performed By: #### U [id number] #### U [facility] (DEFAULT) [address] [address] Squamous/Epithelial Cells, Urine 0-2/hpf Normal 0-2/hpf, 3-5/hpf = 1+ [facility] Comment on above: Order Comment: For i ndwelling catheters, specimen collection is acceptable on catheter day 1 and 2 only. ? Performed By: #### U [id number] #### [facility] (DEFAULT) [address] [address] Urobilinogen Urine 0.2 E.U./dL Normal 0.2 E.U/d L, 1.0 E.U/dL [facility] Comment on above: Order Comment: For i ndwelling catheters, specimen collection is acceptable on catheter day 1 and 2 only. ? Performed By: #### U [id number] #### [facility] (DEFAULT) [address] [address] WBC Urine 0 - 5 Normal 0 - [address] [facility] Comment on above: Order Comment: For i ndwelling catheters, specimen collection is acceptable on catheter day 1 and 2 only. ? Performed By: #### U [id number] #### [facility] (DEFAULT) [address] [address] URINE DRUG SCREEN 08-18 Amphetamine/Methampheta mine Not detected Normal Cutoff: 500 ng/mL [facility] Comment on above: Order Comment: For m edical purposes only. Positive results are unconfirmed unless otherwise noted. Performed By: #### H EMOGC #### [facility] (DEFAULT) [address] [address] Barbiturates Positive Abnormal Cutoff: 200 ng/mL [facility] Comment on above: Order Comment: For m edical purposes only. Positive results are unconfirmed unless otherwise noted. Performed By: #### H EMOGC #### [facility] (DEFAULT) [address] [address] Benzodiazepines Not detected Normal Cutoff: 200 ng/mL [facility] Comment on above: Order Comment: For m edical purposes only. Positive results are unconfirmed unless otherwise noted. Performed By: #### H EMOGC #### [facility] (DEFAULT) [address] [address] Buprenorphine Not detected Normal Cutoff: 5 ng/mL [facility] Comment on above: Order Comment: For m edical purposes only. Positive results are unconfirmed unless otherwise noted. Performed By: #### H EMOGC #### [facility] (DEFAULT) [address] [address] Cannabinoids Screen Ql (U) Not detected Normal Cutoff: 50 ng/mL [facility] Comment on above: Order Comment: For m edical purposes only. Positive results are unconfirmed unless otherwise noted. Performed By: #### H EMOGC #### [facility] (DEFAULT) [address] [address] Cocaine Not detected Normal Cutoff: 150 ng/mL [facility] Comment on above: Order Comment: For edical purposes only. Positive results are unconfirmed unless otherwise noted. Performed By: #### H EMOGC #### [facility] (DEFAULT) [address] [address] Fentanyl Not detected Normal Cutoff: 1 ng/mL [facility] Comment on above: Order Comment: For m edical purposes only. Positive results are unconfirmed unless otherwise noted. Performed By: #### H EMOGC #### [facility] (DEFAULT) [address] [address] Methadone Not detected Normal Cutoff: 300 ng/mL [facility] Comment on above: Order Comment: For m edical purposes only. Positive results are unconfirmed unless otherwise noted. Performed By: #### H EMOGC #### [facility] (DEFAULT) [address] [address] Opiates Not detected Normal Cutoff: 300 ng/mL [facility] Comment on above: Order Comment: For m edical purposes only. Positive results are unconfirmed unless otherwise noted. Performed By: #### H EMOGC #### [facility] (DEFAULT) [address] [address] Oxycodone Not detected Normal Cutoff: 100 ng/mL [facility] Comment on above: Order Comment: For m edical purposes only. Positive results are unconfirmed unless otherwise noted. Performed By: #### H EMOGC #### [facility] (DEFAULT) [address] [place] [address] 12 Lead EKGon 08-17-2024 12 Lead EKG [facility] [address] [place] [address] 12 Lead EKG 08/17/241943 MR#: [id number] Acct: [id number] Name: ABI REYNA Rep #: [id number] : 1955 69 From: Chavez Schroeder MD Attending Dr: Status: DEP ER Ordering Dr: Young Edwards MD Date: 08/17/24 Location: ED Sex: F C Admitted: Test Reason : STROKE Blood Pressure : */* mmHG Vent. Rate : 83 BPM Atrial Rate : 83 BPM P-R Int : 198 ms QRS Dur : 90 ms QT Int : 392 ms P-R-T Axes : 45 19 20 degrees QTcB Int : 460 ms Normal sinus rhythm Cannot rule out Anterior infarct , age undetermined Abnormal ECG Confirmed by Chavez Schroeder ([id number]), non linear editor JOSELUIS MELLO ([id number]) on 08/19/2024 6:08:30 AM Referred By: Confirmed By: Chavez Schroeder 08/19/24 0608 Date Chavez Scrhoeder MD CC: Dr. Ottoniel Page DO; Dr. Young Edwards MD Signed Normal [facility] Absolute lymphocyte countOrd ered By: Young Edwards on 08-17-2024 Lymphocytes Auto (Unsp spec) [#/Vol] 2.38 10*3/uL 0.83-4.51 [facility] Absolute neutrophil countOrd ered By: Young Edwards on 08-17-2024 Neutrophils (Bld) [#/Vol] 6.3 10*3/uL 2.0-7.7 [facility] Activated partial thrombopla stin time (aPTT) in platelet poor plasma by coagulation aOrdered By: Young Edwards on 08-17-2024 aPTT Coag (PPP) [Time] 23.5 s Low 24.1-36.[address] [facility] Anion gap in Serum or Plasma Ordered By: Young Edwards on 08-17-2024 Anion gap [Moles/Vol] 11 mmol/L 07-22 [facility] Automated lymphocyte count a s percentage of total leukocytesOrdered By: Young Edwards on 08-17-2024 Lymphocytes/100 WBC Auto (Unsp spec) 24.5 % [facility] BUN/creatinine ratioOrdered By: Young Edwards on 08-17-2024 Urea nitrogen/Creatinine [Mass ratio] 12.1 mg/mg 12-27 [facility] Basic Metabolic Profile (BMP )on 08-17-2024 BUN/CRE 12.1 RATIO Normal 12-27 [facility] Comment on above: Performed By: #### L 500.2500, L300.3900, L300.4310, L100.0100, L501.4021 #### [facility] [address] [place], [address] Calcium [Mass/Vol] 9.7 mg/dL Normal 7.6-11.0 [facility] Comment on above: Performed By: #### L 500.2500, L300.3900, L300.4310, L100.0100, L501.4021 #### [facility] [address] [place], [address] Chloride [Moles/Vol] 99 mmol/L Normal 98-108 [facility] Comment on above: Performed By: #### L 500.2500, L300.3900, L300.4310, L100.0100, L501.4021 #### [facility] [address] [place], [address] CO2 [Moles/Vol] 28.2 mmol/L Normal 21.0-32.0 [facility] Comment on above: Performed By: #### L 500.2500, L300.3900, L300.4310, L100.0100, L501.4021 #### [facility] [address] [place], [address] Creatinine [Mass/Vol] 0.80 mg/dL Normal 0.70-1.20 [facility] Comment on above: Performed By: #### L 500.2500, L300.3900, L300.4310, L100.0100, L501.4021 #### [facility] [address] [place], [address] ECRCL 91.80 ml/min Normal 50-250 [facility] Comment on above: Performed By: #### L 500.2500, L300.3900, L300.4310, L100.0100, L501.4021 #### [facility] [address] [place], [address] GAP 11 Normal 5-15 [facility] Comment on above: Performed By: #### L 500.2500, L300.3900, L300.4310, L100.0100, L501.4021 #### [facility] [address] [place], [address] GFR/1.73 sq M.predicted among non-blacks MDRD (S/P/Bld) [Vol rate/Area] 79 mL/min/{1.73_m2} Normal >60 [facility] Comment on above: Result Comment: mL/m in/1.73m2 CKD-EPI Creatinine Equation (2020) Performed By: #### L 500.2500, L300.3900, L300.4310, L100.0100, L501.4021 #### [facility] [address] [place], [address] Glucose [Mass/Vol] 114 mg/dL High 70-99 [facility] Comment on above: Performed By: #### L 500.2500, L300.3900, L300.4310, L100.0100, L501.4021 #### [facility] [address] [place], [address] Potassium [Moles/Vol] 3.8 mmol/L Normal 3.3-5.1 [facility] Comment on above: Performed By: #### L 500.2500, L300.3900, L300.4310, L100.0100, L501.4021 #### [facility] [address] [place], [address] Sodium [Moles/Vol] 138 mmol/L Normal 133-145 [facility] Comment on above: Performed By: #### L 500.2500, L300.3900, L300.4310, L100.0100, L501.4021 #### [facility] [address] [place], [address] Urea nitrogen [Mass/Vol] 10 mg/dL Normal 4-19 [facility] Comment on above: Performed By: #### L 500.2500, L300.3900, L300.4310, L100.0100, L501.4021 #### [facility] [address] [place], [address] Basophil percentageOrdered B y: Young Edwards on 08-17-2024 Basophils/100 WBC (Bld) 0.7 % 0-1 [facility] Bedside Glucoseon 08-17-2024 FINGERSTICK GLU 96 mg/dL Normal 74-106 [facility] Comment on above: Result Comment: LENI GARCÍA OF PATIENT CARE PER NURSING PROTOCOL Performed By: #### L 501.080 ####[facility] [id number] [place], [address] CBC AND ELECTRONIC DIFFon Basophils (Bld) [#/Vol] 0.08 10*3/uL Normal 0.00-0.[address] [facility] Comment on above: Performed By: #### H EMOGC #### [facility] (DEFAULT) [address] [address] Basophils/100 WBC (Bld) 1.0 % Normal [facility] Comment on above: Performed By: #### H EMOGC #### U [facility] (DEFAULT) [address] [address] DIFF STATUS Electronic Differential Normal [facility] Comment on above: Performed By: #### H EMOGC #### [facility] (DEFAULT) [address] [address] Eosinophils (Bld) [#/Vol] 0.18 10*3/uL Normal 0.00-0.[address] [facility] Comment on above: Performed By: #### H EMOGC #### [facility] (DEFAULT) [address] [address] Eosinophils/100 WBC (Bld) 2.3 % Normal [facility] Comment on above: Performed By: #### H EMOGC #### [facility] (DEFAULT) [address] [address] Hematocrit (Bld) [Volume fraction] 39.8 % Normal 34.9-44.[address] [facility] Comment on above: Performed By: #### H EMOGC #### [facility] (DEFAULT) [address] [address] Hemoglobin (Bld) [Mass/Vol] 12.8 g/dL Normal 11.4-15.[address] [facility] Comment on above: Performed By: #### H EMOGC #### [facility] (DEFAULT) [address] [address] Immature Grans % 0.4 % Normal [facility] Comment on above: Performed By: #### H EMOGC #### [facility] (DEFAULT) [address] [place] [address] Immature Grans Absolute < Normal <=0.08 [facility] Comment on above: Performed By: #### H EMOGC #### [facility] (DEFAULT) [address] [place] [address] Lymphocytes (Bld) [#/Vol] 1.96 10*3/uL Normal 1.16-3.[address] [facility] Comment on above: Performed By: #### H EMOGC #### [facility] (DEFAULT) [address] [address] Lymphocytes/100 WBC (Bld) 25.0 % Normal [facility] Comment on above: Performed By: #### H EMOGC #### [facility] (DEFAULT) [address] [place] [address] MCV (RBC) [Entitic vol] 82.7 fL Normal 79.6-97.7 [facility] Comment on above: Performed By: #### H EMOGC #### [facility] (DEFAULT) [address] [address] Mean Cell Hgb 26.6 pg Normal 25.9-33.[address] [facility] Comment on above: Performed By: #### H EMOGC #### [facility] (DEFAULT) [address] [address] Mean Cell Hgb Conc 32.2 g/dL Normal 31.4-35.9 [facility] Comment on above: Performed By: #### H EMOGC #### [facility] (DEFAULT) [address] [place] [address] Monocytes (Bld) [#/Vol] 0.63 10*3/uL Normal 0.22-0.[address] [facility] Comment on above: Performed By: #### H EMOGC #### [facility] (DEFAULT) [address] [place] [address] Monocytes/100 WBC (Bld) 8.0 % Normal [facility] Comment on above: Performed By: #### H EMOGC #### [facility] (DEFAULT) [address] [address] Nucleated RBC 0.0 /100 WBC Normal <=0.2 [facility] Comment on above: Performed By: #### H EMOGC #### [facility] (DEFAULT) [address] [address] Platelet mean volume (Bld) [Entitic vol] 11.3 fL Normal 8.5-12.[address] [facility] Comment on above: Performed By: #### H EMOGC #### [facility] (DEFAULT) [address] [address] Platelets (Bld) [#/Vol] 198 10*3/uL Normal 150-[address] [facility] Comment on above: Performed By: #### H EMOGC #### [facility] (DEFAULT) [address] [address] RBC (Bld) [#/Vol] 4.81 10*6/uL Normal 3.91-5.[address] [facility] Comment on above: Performed By: #### H EMOGC #### [facility] (DEFAULT) [address] [address] RBC Distribution 13.6 % Normal 10.8-14.9 [facility] Comment on above: Performed By: #### H EMOGC #### [facility] (DEFAULT) [address] [address] Segs + Bands Auto 63.3 % Normal [facility] Comment on above: Performed By: #### H EMOGC #### [facility] (DEFAULT) [address] [address] Segs + Bands,Absolute Auto 4.97 K/uL Normal 1.64-7.[address] [facility] Comment on above: Performed By: #### H EMOGC #### [facility] (DEFAULT) [address] [place] [address] WBC (Bld) [#/Vol] 7.85 10*3/uL Normal 3.99-11.[address] [facility] Comment on above: Performed By: #### H [facility] #### [facility] (DEFAULT) [address] [place] [address] CBC W/Diff, Automatedon 06- 0-2024 Absolute Lymph 2.38 X10 3/uL Normal 0.83-4.51 [facility] Comment on above: Performed By: #### L 500.2500, L300.3900, L300.4310, L100.0100, L501.4021 #### [facility] [address] [place], [address] Absolute Neut 6.3 X10 3/uL Normal 2.0-7.7 [facility] Comment on above: Performed By: #### L 500.2500, L300.3900, L300.4310, L100.0100, L501.4021 #### [facility] [address] [place], [address] Basophils/100 WBC (Bld) 0.7 % Normal 0-1 [facility] Comment on above: Performed By: #### L 500.2500, L300.3900, L300.4310, L100.0100, L501.4021 #### [facility] [address] [place], [address] Eosinophils/100 WBC (Bld) 2.7 % Normal 0-5 [facility] Comment on above: Performed By: #### L 500.2500, L300.3900, L300.4310, L100.0100, L501.4021 #### [facility] [address] [place], [address] Erythrocyte distribution width (RBC) [Ratio] 13.7 % Normal 11.6-14.6 [facility] Comment on above: Performed By: #### L 500.2500, L300.3900, L300.4310, L100.0100, L501.4021 #### [facility] [address] [place], [address] Hematocrit (Bld) [Volume fraction] 45.4 % Normal 37-47 [facility] Comment on above: Performed By: #### L 500.2500, L300.3900, L300.4310, L100.0100, L501.4021 #### [facility] [address] [place], [address] Hemoglobin (Bld) [Mass/Vol] 14.6 g/dL Normal 12.0-15.0 [facility] Comment on above: Performed By: #### L 500.2500, L300.3900, L300.4310, L100.0100, L501.4021 #### [facility] [address] [place], [address] IG% 0.300 Normal 0.0-0.9 [facility] Comment on above: Result Comment: IG% - Immature Granulocytes (promyelocytes, myelocytes and metamyelocytes) > 1% indicates that a LEFT SHIFT is Present. Performed By: #### L 500.2500, L300.3900, L300.4310, L100.0100, L501.4021 #### [facility] [address] [place], [address] Lymphocytes/100 WBC (Bld) 24.5 % Normal 19-41 [facility] Comment on above: Performed By: #### L 500.2500, L300.3900, L300.4310, L100.0100, L501.4021 #### [facility] [address] [place], [address] MCH (RBC) [Entitic mass] 26.8 pg Low 27.0-32.0 [facility] Comment on above: Performed By: #### L 500.2500, L300.3900, L300.4310, L100.0100, L501.4021 #### [facility] [address] [place], [address] MCHC (RBC) [Mass/Vol] 32.2 g/dL Normal 32-36 [facility] Comment on above: Performed By: #### L 500.2500, L300.3900, L300.4310, L100.0100, L501.4021 #### [facility] [address] [place], [address] MCV (RBC) [Entitic vol] 83.5 fL Normal 81-99 [facility] Comment on above: Performed By: #### L 500.2500, L300.3900, L300.4310, L100.0100, L501.4021 #### [facility] [address] [place], [address] Monocytes/100 WBC (Bld) 7.0 % Normal 0-10 [facility] Comment on above: Performed By: #### L 500.2500, L300.3900, L300.4310, L100.0100, L501.4021 #### [facility] [address] [place], [address] Neutrophils/100 WBC (Bld) 64.8 % Normal 47-70 [facility] Comment on above: Performed By: #### L 500.2500, L300.3900, L300.4310, L100.0100, L501.4021 #### [facility] [address] [place], [address] Nucleated RBC (Bld) [#/Vol] 0 10*3/uL Normal 0-5 [facility] Comment on above: Performed By: #### L 500.2500, L300.3900, L300.4310, L100.0100, L501.4021 #### [facility] [address] [place], [address] Platelet mean volume (Bld) [Entitic vol] 11.2 fL Normal 6.2-12.0 [facility] Comment on above: Performed By: #### L 500.2500, L300.3900, L300.4310, L100.0100, L501.4021 #### [facility] [address] [place], [address] Platelets (Bld) [#/Vol] 248 10*3/uL Normal 150-450 [facility] Comment on above: Performed By: #### L 500.2500, L300.3900, L300.4310, L100.0100, L501.4021 #### [facility] [address] [place], [address] RBC (Bld) [#/Vol] 5.44 10*6/uL High 4.2-5.4 [facility] Comment on above: Performed By: #### L 500.2500, L300.3900, L300.4310, L100.0100, L501.4021 #### [facility] [address] [place], [address] RDW SD 41.1 fl Normal 35.1-43.9 [facility] Comment on above: Performed By: #### L 500.2500, L300.3900, L300.4310, L100.0100, L501.4021 #### [facility] [address] [place], [address] WBC (Bld) [#/Vol] 9.7 10*3/uL Normal 4.4-11.0 [facility] Comment on above: Performed By: #### L 500.2500, L300.3900, L300.4310, L100.0100, L501.4021 #### [facility] [address] [place], [address] CH 7 - EDon 08-17-2024 Anion gap [Moles/Vol] 11 mmol/L Normal 7-17 [facility] Comment on above: Performed By: #### S URGP #### [facility] (DEFAULT) [address] [place] [address]41 Chloride [Moles/Vol] 99 mmol/L Normal 98-[address] [facility] Comment on above: Performed By: #### S URGP #### [facility] (DEFAULT) [address] [place] [address] 65689 CO2 [Moles/Vol] 29 mmol/L Normal 21-31 [facility] Comment on above: Performed By: #### S URGP #### [facility] (DEFAULT) [address] [place] [address]403 Creatinine [Mass/Vol] 0.64 mg/dL Normal 0.50-1.20 [facility] Comment on above: Performed By: #### S URGP #### [facility] (DEFAULT) [address] [place] [address] 69168 eGFR, CKD-EPI, Female > Normal >=60 [facility] Comment on above: Result Comment: Repo rted eGFR is based on the CKD-EPI 2020 equation using creatinine, age, and sex. Performed By: #### S URGP #### [facility] (DEFAULT) [address] [place] [address] 85372 Glucose [Mass/Vol] 109 mg/dL Normal Nonfastin -179 mg/dL; Fastin-[address] [facility] Comment on above: Performed By: #### S URGP #### [facility] (DEFAULT) [address] [address] Osmolality [Osmolality] 282 mosm/kg Normal 278-[address] [facility] Comment on above: Performed By: #### S URGP #### [facility] (DEFAULT) [address] [place] [address] 16990 Potassium [Moles/Vol] 3.6 mmol/L Normal 3.5-5.0 [facility] Comment on above: Performed By: #### S URGP #### [facility] (DEFAULT) [address] [place] [address] 65802 Sodium [Moles/Vol] 135 mmol/L Normal 135-145 [facility] Comment on above: Performed By: #### S URGP #### [facility] (DEFAULT) [address] [place] [address] 36777 Urea nitrogen [Mass/Vol] 10 mg/dL Normal 7-[address] [facility] Comment on above: Performed By: #### S URGP #### [facility] (DEFAULT) [address] [place] [address] 81414 Urea nitrogen/Creatinine [Mass ratio] 16 mg/mg Normal [facility] Comment on above: Performed By: #### S URGP #### [facility] (DEFAULT) [address] [place] [address] STROKE ANGIO BRAIN/NECKon 08-17-2024 CT STROKE ANGIO BRAIN/NECK EXAM: CT STROKE ANGIO BRAIN/NECK, 08/17/2024 22:08 PM COMPARISON: Same day CT head CLINICAL INDICATIONS: 69 years Female Suspected Stroke RELEVANT CLINICAL HISTORY: TECHNIQUE: A series of transaxial multislice computerized tomographic images are obtained with helical technique from top of aortic arch to vertex following bolus intravenous administration of nonionic contrast. Axial thin section source images, as well as sagittal and coronal thin section reformats, were provided at the scanner. Additional multiplanar and 3D reconstructions were provided. CONTRAST: iohexol (OMNIPAQUE) 350 MG/ML injection 1-171 mL; Route of Administration: Intravenous; Dose: 100 mL. FINDINGS: CT ANGIOGRAM NECK: AORTIC ARCH: Conventional anatomic origin of the great vessels. Atherosclerosis involving the great vessel origins is noted, without significant stenosis. RIGHT CAROTID ARTERY: Common carotid artery is patent and normal in caliber. Internal carotid artery origin at the bifurcation demonstrates atherosclerotic plaque, without significant stenosis. More distal cervical segments of the internal carotid artery are patent and normal in caliber. LEFT CAROTID ARTERY: Common carotid artery is patent and normal in caliber. Internal carotid artery origin at the bifurcation is patent and normal in caliber. More distal cervical segments of the internal carotid artery are patent and normal in caliber. RIGHT VERTEBRAL ARTERY: Origin is patent. More distal cervical segments are patent and normal in caliber. LEFT VERTEBRAL ARTERY: Origin is patent. More distal cervical segments are patent and normal in caliber. OTHER: No dissection or pseudoaneurysm. CT ANGIOGRAM HEAD: INTERNAL CAROTID ARTERIES: Atherosclerotic calcifications, without significant stenosis. ANTERIOR CEREBRAL ARTERIES: Patent and normal in caliber. MIDDLE CEREBRAL ARTERIES: Patent and normal in caliber. POSTERIOR CEREBRAL ARTERIES: Patent and normal in caliber. origin of the right SETTER MACHINE is noted. VERTEBRAL ARTERIES: Patent and normal in caliber. BASILAR ARTERY: Patent. No significant stenosis. OTHER: No aneurysm or AVM. ADDITIONAL FINDINGS: No major incidental findings. Previous left hemithyroidectomy. IMPRESSION: 1. Widely patent cervical and intracranial arterial vasculature. 2. No evidence of aneurysm, vascular malformation, or active bleeding. I personally viewed and interpreted these images and I have reviewed and approved this report. Normal [facility] CT STROKE HEAD-STROKE ALERT ONLYon 08-17-2024 CT STROKE HEAD-STROKE ALERT ONLY EXAM: CT STROKE HEAD-STROKE ALERT ONLY, 08/17/2024 9:51 PM COMPARISON: None CLINICAL INDICATIONS: 69 years Female Suspected Stroke; Suspected Stroke RELEVANT CLINICAL HISTORY: Right face, arm, hip numbness. TECHNIQUE: A series of transaxial computerized tomographic images are obtained from base of skull to vertex without intravenous contrast. Axial whole-head and thin section posterior fossa slices are provided. Reformats: Sagittal and coronal. FINDINGS: Angela-white matter differentiation is preserved. No acute large territory infarction is seen. Patchy periventricular white matter hypoattenuation is noted which is non-specific, but likely due to chronic small vessel ischemic changes. Suspect remote left basal ganglial lacunar insults. Imaged parenchyma hematoma within the left parietal lobe along the postcentral gyrus, near vertex, measuring approximately 23 x 12 x 26 mm (900/22). There is minimal surrounding vasogenic edema. No midline shift or herniation. Ventricles are normal in size and configuration for patient age. Prior left parietal craniotomy.. Visualized orbits appear normal. Visualized paranasal sinuses are clear. Visualized mastoid air cells are clear. IMPRESSION: 1. Acute left parietal intraparenchymal hematoma near vertex. 2. No significant midline shift, herniation, hydrocephalus. 3. Suspect remote left basal ganglial lacunar insults. Correlate with outside imaging to ensure stability. Findings were discussed with Ana Lilia Hurley DO at 2157 on 08/17/2024. I personally viewed and interpreted these images and I have reviewed and approved this report. Normal [facility] Carbon dioxide, total [Moles /volume] in Central venous bloodOrdered By: Young Edwards on 08-17-2024 CO2 [Moles/Vol] 28.2 mmol/L 21.0-32.0 [facility] Chloride assayOrdered By: Jordon Edwards on 08-17-2024 Chloride [Moles/Vol] 99 mmol/L 98-108 [facility] Emergency Department Summary on 08-17-2024 Emergency Department Summary [facility] Medical Records Department [address] [place] [address] Emergency Department Summary 08/17/24 MR#: [id number] Acct: [id number] Name: ABI REYNA Rep #: [id number] : [id number] From: Young Edwards MD PCP: Dr. Ottoniel Page DO Status:DEP ER Location: ED HPI History of Present Illness Chief Complaint: Stroke Alert Detail of Chief Complaint: Numbness right side of her body that started at 1630. Informant: patient Onset/Context/Timing Onset: Today Quality and Location: Positive for Right Face Paresthesia, Right Arm Parasthesia and Right Leg Parasthesia Onset: 1630 today Current Severity: Mild Maximum Severity: Mild Worsened by: Nothing Relieved by: Nothing Associated Symptoms Associated Symptoms: Negative for Headache, Nausea, Vomiting or Chest Pain Narrative Narrative: Patient presents with right-sided paresthesia. She contacted her roll scale man Dr. Henok Schroeder who instructed her to come in several hours ago. She is on a baby aspirin. She is on no other antithrombotic or anticoagulant. She was told by Dr. Chavez Schroeder to call 911. I was asked to see patient in triage. Patient has right-sided altered sensation. She has no other complaints or symptoms. Apparently she had a recent intracranial procedure. 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 Prior similar symptoms: No Recent Illness/Hospitalization : No PFSH PFSH Medical History (Updated 08/17/24 @ 20:10 by Ines Deluca) Stroke/cerebrovascular accident History of steroid therapy History of Holter [...] Palpitations Hyperlipidemia Paroxysmal atrial fibrillation Home Medications ???Medication ???Instructions ???Recorded ???Last Taken ???Type oxycodone-acetaminophen 5 mg-325 1 tab PO Q4H PRN Pain 07/02/17 22:00 History mg tablet pantoprazole 40 mg tablet,delayed 40 mg PO DAILY 10/13/18 05/27/24 07:30 History release (Protonix) cephalexin 250 mg tablet 250 mg PO DAILY 09/23/19 05/26/24 History cyclobenzaprine 10 mg tablet 10 mg PO PRN PRN MUSCLE RELAXANT 0 09/23/19 Unknown History hydrochlorothiazide 25 mg tablet 25 mg PO DAILY 04/13/20 Unknown Hi story latanoprost 0.005 % eye drops 1 drp EACH EYE QHS 04/13/20 Unknow n History aspirin 81 mg tablet,delayed 81 mg PO QHS 08/24/20 05/26/24 His tory release promethazine 25 mg tablet 25 mg PO Q6H PRN Nausea 08/24/20 U nknown History ustekinumab 90 mg/mL subcutaneous 90 mg subcut .Q2MO 08/24/20 Unkno wn History syringe (Stelara) gabapentin 400 mg capsule 400 mg PO TID 05/12/24 05/27/24 07 :30 History betamethasone dipropionate 0.05 % 1 applic topical QDAY PRN skin Unknown History topical ointment irritation bupropion HCl 150 mg 24 hr tablet, 150 mg PO QDAY 08/10/24 Unknown History extended release clobetasol 0.05 % topical cream 1 applic topical BID 08/10/24 Unkn own History clotrimazole 1 % topical cream 1 applic topical BID 08/10/24 Unkn own History ferrous sulfate 325 mg (65 mg 325 mg PO QDAY 08/10/24 Unknown Hi story iron) tablet,delayed release hyoscyamine sulfate 0.125 mg 0.125 mg PO Q6 PRN nausea/vomiting 08/10/24 Unknown History disintegrating tablet primidone 50 mg tablet 100 mg PO BID 08/10/24 Unknown His tory ropinirole 0.5 mg tablet 0.5 mg PO .COMPLEX 08/10/24 Unknow n History timolol maleate 0.5 % eye drops 1 drp ophthalmic (eye) DAILY 08/10 Unknown History sotalol 80 mg tablet 80 mg PO BID #180 TABLETS 08/17/24 Unknown Rx Allergy/AdvReac Type Severity Reaction Status Date / Time prednisone Allergy Itching Verified 08/17/24 19:11 hydrocodone (From Vicodin) AdvReac Severe GI upset Verified 08/17/24 19:11 propoxyphene (From AdvReac Severe GI upset Verified 08/17/24 19:11 Darvocet-N) cortisone AdvReac Intermediate Unknown Verified 08/17/24 19:11 Family History Mother CAD (coronary artery disease) Myocardial infarction Father Hypertension Brother CAD (coronary artery disease) Surgical History (Revie (more content not included)... Normal [facility] Eosinophil percentageOrdered By: Young Edwards on 08-17-2024 Eosinophils/100 WBC (Bld) 2.7 % 0-5 [facility] Erythrocyte distribution wid th ratioOrdered By: Young Edwards on 08-17-2024 Erythrocyte distribution width (RBC) [Ratio] 13.7 % 11.6-14.6 [facility] Erythrocyte distribution wid th standard deviationOrdered By: Young Edwards on 08-17-2024 Erythrocyte distribution width (RBC) [Ratio] 41.1 fl 35.1-43.9 [facility] Glomerular filtration rate ( GFR) estimation/1.73 sq m using serum, plasma, or whole bOrdered By: Young Edwards on 08-17-2024 GFR/1.73 sq M.predicted among non-blacks MDRD (S/P/Bld) [Vol rate/Area] 79 mL/min/{1.73_m2} >60 [facility] Comment on above: mL/min/1.73m2 CKD-EP I Creatinine Equation (2020) [facility]dered By: Young Edwards on 08-17-2024 Glucose [Mass/Vol] 96 mg/dL 74-106 [facility] Comment on above: MANAGEMENT OF PATIEN T CARE PER NURSING PROTOCOL HEMOGLOBIN A1Con 08-17-2024 Glucose [Mass/Vol] 128 mg/dL Normal [facility] Comment on above: Performed By: #### H EMOGC #### [facility] (DEFAULT) [address] [address] Hemoglobin A1C HPLC 6.1 % High 4.7-5.[address] [facility] Comment on above: Performed By: #### H EMOGC #### [facility] (DEFAULT) [address] [address] HEPATIC FUNCTION PANELon Albumin [Mass/Vol] 3.4 g/dL Low 3.5-5.0 [facility] Comment on above: Performed By: #### S URGP #### [facility] (DEFAULT) [address] [address] ALP [Catalytic activity/Vol] 46 U/L Normal 32-[address] [facility] Comment on above: Performed By: #### S URGP #### [facility] (DEFAULT) [address] [address] ALT [Catalytic activity/Vol] 16 U/L Normal 9-[address] [facility] Comment on above: Performed By: #### S URGP #### [facility] (DEFAULT) [address] [place] [address] 17192 AST [Catalytic activity/Vol] 17 U/L Normal 10-[address] [facility] Comment on above: Performed By: #### S URGP #### [facility] (DEFAULT) [address] [place] [address]28 Bilirubin [Mass/Vol] 0.4 mg/dL Normal <1.[address] [facility] Comment on above: Performed By: #### S URGP #### [facility] (DEFAULT) [address] [place] [address]35 Bilirubin.indirect [Mass/Vol] 0.1 mg/dL Normal <0.[address] [facility] Comment on above: Performed By: #### S URGP #### [facility] (DEFAULT) [address] [place] [address]015 Protein [Mass/Vol] 5.7 g/dL Low 6.4-8.3 [facility] Comment on above: Performed By: #### S URGP #### [facility] (DEFAULT) [address] [place] [address] HIGH SENSITIVITY TROPONIN I - SINGLE ORDERon 08-17-2024 hs-Troponin I <3 Normal <[address] [facility] Comment on above: Order Comment: Acute Coronary Syndrome (ACS): Initial Evaluation and Management:[email or web address] Performed By: #### S URGP #### [facility] (DEFAULT) [address] [place] [address] Hematocrit Auto (Bld) [Volum e fraction]Ordered By: Young Edwards on 08-17-2024 Hematocrit (Bld) [Volume fraction] 45.4 % 37-47 [facility] Hemoglobin measurementOrdere d By: Young Edwards on 08-17-2024 Hemoglobin (Bld) [Mass/Vol] 14.6 g/dL 12.0-15.0 [facility] Immature granulocytes/100 WB C Auto (Bld)Ordered By: Young Edwards on 08-17-2024 Immature granulocytes/100 WBC (Bld) 0.300 % 0.0-0.9 [facility] Comment on above: IG% - Immature Granu locytes (promyelocytes, myelocytes and metamyelocytes) > 1% indicates that a LEFT SHIFT is Present. International normalized rat io (INR) calculationOrdered By: Young Edwards on 08-17-2024 INR Coag (Bld) [Relative time] 1.0 {INR} [facility] L499.0042on 08-17-2024 Trop T High Sen Normal <=14 [facility] Comment on above: Result Comment: Canc elled via OM: Order cancelled - Patient discharged Performed By: #### L 499.0042 #### [facility] [address] [place], [address] L499.0043on 08-17-2024 Trop T High Sen Normal <=14 [facility] Comment on above: Result Comment: Canc elled via OM: Order cancelled - Patient discharged Performed By: #### L 499.0043 #### [facility] [address] [place], [address] L501.4021on 08-17-2024 Trop T High Sen 17 ng/L High <=14 [facility] Comment on above: Performed By: #### L 500.2500, L300.3900, L300.4310, L100.0100, L501.4021 #### [facility] [address] [place], [address] LIPID PANEL WITH REFLEX TO M EASURED LDLon 08-17-2024 Calculated LDL Cholesterol 83 mg/dL Normal 0-[address] [facility] Comment on above: Result Comment: [<10 0 mg/dL: Optimal] [100-129 mg/dL: Near Optimal] [130-159 mg/dL: Borderline High] [160-189 mg/dL: High] [>189 mg/dL: Very High] Performed By: #### S URGP #### [facility] (DEFAULT) [address] [place] [address] Cholesterol [Mass/Vol] 159 mg/dL Normal <200 [facility] Comment on above: Result Comment: [<20 0 mg/dL: Desirable] [200-239 mg/dL: Borderline High] [>239 mg/dL: High] Performed By: #### S URGP #### [facility] (DEFAULT) [address] [place] [address] Cholesterol in HDL [Mass/Vol] 48 mg/dL Normal >=[address] [facility] Comment on above: Result Comment: [<40 mg/dL: Low (High Risk)] [>59 mg/dL: High (Low Risk)] Performed By: #### S URGP #### [facility] (DEFAULT) [address] [place] [address]28 Non HDL Cholesterol 111 mg/dL Normal <[address] [facility] Comment on above: Performed By: #### S URGP #### [facility] (DEFAULT) [address] [place] [address] Total Cholesterol/HDL Ratio 3.3 Normal <4.[address] [facility] Comment on above: Performed By: #### S URGP #### [facility] (DEFAULT) [address] [place] [address] Triglyceride [Mass/Vol] 138 mg/dL Normal <150 [facility] Comment on above: Result Comment: [<15 0 mg/dL: Desirable] [150-199 mg/dL: Borderline] [200-499 mg/dL: High] [>500 mg/dL: Very High] Performed By: #### S URGP #### [facility] (DEFAULT) [address] [place] [address] MCV (mean corpuscular volume ) determinationOrdered By: Young Edwards on 08-17-2024 MCV (RBC) [Entitic vol] 83.5 fL 81-99 [facility] Mean corpuscular hemoglobin (MCH) determinationOrdered By: Young Edwards on 08-17-2024 MCH (RBC) [Entitic mass] 26.8 pg Low 27.0-32.0 [facility] Mean corpuscular hemoglobin concentration (MCHC) determinationOrdered By: Youngkatalina Edwards on 08-17-2024 MCHC (RBC) [Mass/Vol] 32.2 g/dL 32-36 [facility] Mean platelet volume determi nationOrdered By: [facility] on 08-17-2024 Platelet mean volume (Bld) [Entitic vol] 11.2 fL 6.2-12.0 [facility] Monocyte percentageOrdered B y: [facility] on 08-17-2024 Monocytes/100 WBC (Bld) 7.0 % 0-10 [facility] Neutrophil percentageOrdered By: [facility] on 08-17-2024 Neutrophils/100 WBC (Bld) 64.8 % 47-70 [facility] Nucleated red blood cell per centageOrdered By: [facility] on 08-17-2024 Nucleated RBC/100 WBC (Bld) [Ratio] 0 % 0-5 [facility] PTINR-STROKEon 08-17-2024 INR Coag (PPP) [Relative time] 1.0 {INR} Normal 0.9-1.[address] [facility] Comment on above: Performed By: #### H [facility] #### [facility] (DEFAULT) [address] [address] PT Coag (PPP) [Time] 13.5 s Normal 11.9-14.[address] [facility] Comment on above: Performed By: #### H [facility] #### [facility] (DEFAULT) [address] [address] PTTon 08-17-2024 aPTT Coag (Bld) [Time] 25.1 s Normal 24.0-34.3 [facility] Comment on above: Performed By: #### H [facility] #### [facility] (DEFAULT) [address] [address] Partial Thromboplast Timeon 08-17-2024 aPTT Coag (Bld) [Time] 23.5 s Low 24.1-36.[address] [facility] Comment on above: Performed By: #### L 500.2500, L300.3900, L300.4310, L100.0100, L501.4021 ####[facility] [id number] [place], [address] Platelet countOrdered By: Jordon Edwards on 08-17-2024 Platelets (Bld) [#/Vol] 248 10*3/uL 150-450 [facility] Potassium measurement (mass/ volume)Ordered By: Young Edwards on 08-17-2024 Potassium (Unsp spec) [Mass/Vol] 3.8 mmol/L 3.3-5.1 [facility] Prothrombin Time w/INRon INR Coag (PPP) [Relative time] 1.0 {INR} Normal [facility] Comment on above: Performed By: #### L 500.2500, L300.3900, L300.4310, L100.0100, L501.4021 #### [facility] [address] [place], [address] PT Coag (PPP) [Time] 12.8 s Normal 11.7-14.9 [facility] Comment on above: Performed By: #### L 500.2500, L300.3900, L300.4310, L100.0100, L501.4021 #### [facility] [address] [place], [address] Prothrombin timeOrdered By: Young Edwards on 08-17-2024 PT Coag (PPP) [Time] 12.8 s 11.7-14.9 [facility] RBC Auto (Bld) [#/Vol]Ordere d By: Young Edwards on 08-17-2024 RBC (Bld) [#/Vol] 5.44 10*6/uL High 4.2-5.4 [facility] STROKE Brain/Head without Co nton 08-17-2024 STROKE Brain/Head without Cont [facility] Services [address] [place] [address] STROKE Brain/Head without Cont MR#: [id number] Acct: [id number] Name: ABI REYNA Rep #: [id number] : 1955 F 69 From: Naveed Howe MD PCP: Dr. Ottoniel Page DO Status: REG ER Study: STROKE Brain/Head without Cont Date of Exam: 0 08/17/24 Exam# [id number] Ordering Dr: Young Edwards MD PROCEDURE: STROKE BRAIN/HEAD WITHOUT CONT 08/17/2024 REASON FOR EXAM: NEURO DEFICIT, ACUTE, STROKE SUSPECTED TECHNIQUE: Head CT without intravenous contrast. Coronal and Sagittal reconstruction series were provided. One or more dose reduction techniques were used (e.g., Automated exposure control, adjustment of the mA and/or kV according to patient size, use of iterative reconstruction technique. RADIATION DOSE SUMMARY: CTDlvol: 45.0 mGy DLP: 864 mGycm COMPARISON: CT head on 05/15/2018 FINDINGS: Brain: There is an ovoid hyperdense intraparenchymal hemorrhage in the left parietal lobe measuring 1.3 x 2.5 x 2.6 cm (AP x TR x CC). No associated midline shift. Angela-white differentiation is maintained. CSF Spaces: No hydrocephalus. Mild generalized cerebral atrophy Sinuses/Mastoids: Clear at visualized levels Bones: Postoperative changes of the left parietal calvarium. Status post bilateral cataract extraction. CT/STROKE Brain/Head without Cont IMPRESSION: Left parietal intraparenchymal hemorrhage measuring up to 2.6 cm in size. Recommend Neurosurgical consultation. Red Alert: Left parietal intraparenchymal hemorrhage The critical information above was relayed directly by me by telephone to Young Edwards on 08/17/2024 at 7:50 pm with readback verification. Reading Location: [id number] CC: Dr. Ottoniel Page DO; Dr. Young Edwards MD Pharmacy General Manager: Signed Normal [facility] Serum creatinine measurement (mass/volume)Ordered By: Young Edwards on 08-17-2024 Creatinine [Mass/Vol] 0.80 mg/dL 0.70-1.20 [facility] Serum glucose measurement (m ass/volume)Ordered By: [facility] on 08-17-2024 Glucose [Mass/Vol] 114 mg/dL High 70-99 [facility] Serum or plasma calcium [place] urement (mass/volume)Ordered By: [facility] on 08-17-2024 Calcium [Mass/Vol] 9.7 mg/dL 7.6-11.0 [facility] Serum or plasma urea nitroge n measurement (mass/volume)Ordered By: [facility] on 08-17-2024 Urea nitrogen [Mass/Vol] 10 mg/dL 4-19 [facility] Sodium levelOrdered By: [facility] on 08-17-2024 Sodium [Moles/Vol] 138 mmol/L 133-145 [facility] TYPE AND SCREENon 08-17-2024 ABO/RH(D) TYPE Positive Normal [facility] Comment on above: Performed By: #### X M #### [facility] (DEFAULT) [address] [place] [address] Specimen Expiration 08/20/2024 03:[address] [facility] Comment on above: Performed By: #### X M #### [facility] (DEFAULT) [address] [place] [address] Troponin T.cardiac [Mass/vol ume] in Serum or Plasma by High sensitivity methodOrdered By: [facility] on 08-17-2024 Troponin T.cardiac High sensitivity method [Mass/Vol] 17 ng/L High <14 [facility] White blood cell (WBC) count Ordered By: [facility] on 08-17-2024 WBC (Bld) [#/Vol] 9.7 10*3/uL 4.4-11.0 [facility] 12 Lead EKGon 08-15-2024 12 Lead EKG [facility] Cardiovascular Services [address] [place] [address] 12 Lead EKG 08/15/24 0209 MR#: [id number] Acct: [id number] Name: DANIELABIETTE Rep #: [id number] : 1955 69 From: Chavez Schroeder MD Attending Dr: Status: DEP ER Ordering Dr: Hugh Mercado DO Date: 08/15/24 Location: ED Sex: F C Admitted: Test Reason : REPEAT Blood Pressure : */* mmHG Vent. Rate : 79 BPM Atrial Rate : 79 BPM P-R Int : 190 ms QRS Dur : 92 ms QT Int : 376 ms P-R-T Axes : 28 26 25 degrees QTcB Int : 431 ms Normal sinus rhythm Normal ECG Confirmed by Chavez Schroeder ([id number]), non linear editor ATUL MARINO ([id number]) on 08/16/2024 9:34:09 AM Referred By: Confirmed By: Chavez Schroeder 08/16/2434 Date Chavez Schroeder MD CC: Dr. Ottoniel Page DO; Dr. Hugh Mercado DO Signed Normal [facility] 12 Lead EKG [facility] Cardiovascular Services [address] [place] [address] 12 Lead EKG 08/15/24 0148 MR#: [id number] Acct: [id number] Name: ABI REYNA Rep #: [id number] : 1955 69 From: Chavez Schroeder MD Attending Dr: Status: DEP ER Ordering Dr: Hugh Mercado DO Date: 08/15/24 Location: ED Sex: F C Admitted: Test Reason : HIGH HR Blood Pressure : */* mmHG Vent. Rate : 151 BPM Atrial Rate : * BPM P-R Int : * ms QRS Dur : 92 ms QT Int : 314 ms P-R-T Axes : * 27 10 degrees QTcB Int : 497 ms Critical Test Result: High HR Atrial fibrillation with rapid ventricular response Possible Inferior infarct , age undetermined Abnormal ECG Confirmed by Chavez Schroeder ([id number]), non linear editor ATUL MARINO ([id number]) on 08/16/2024 9:33:58 AM Referred By: Confirmed By: Chavez Schroeder 08/16/24 0934 Date Chavez Schroeder MD CC: Dr. Ottoniel Page, DO; Dr. Hugh Mercado, DO Signed Normal [facility] Absolute lymphocyte countOrd ered By: Hugh Mercado on 08-15-2024 Lymphocytes Auto (Unsp spec) [#/Vol] 2.33 10*3/uL 0.83-4.51 [facility] Absolute neutrophil countOrd ered By: Hugh Mercado on 08-15-2024 Neutrophils (Bld) [#/Vol] 4.4 10*3/uL 2.0-7.7 [facility] Activated partial thrombopla stin time (aPTT) in platelet poor plasma by coagulation aOrdered By: Hugh Mercado on 08-15-2024 aPTT Coag (PPP) [Time] 22.6 s Low 24.1-36.[address] [facility] Anion gap in Serum or Plasma Ordered By: Hugh Mercado on 08-15-2024 Anion gap [Moles/Vol] 11 mmol/L 5-15 [facility] Automated lymphocyte count a s percentage of total leukocytesOrdered By: Hugh Mercado on 08-15-2024 Lymphocytes/100 WBC Auto (Unsp spec) 29.9 % 19-41 [facility] BUN/creatinine ratioOrdered By: Hugh Mercado on 08-15-2024 Urea nitrogen/Creatinine [Mass ratio] 12.8 mg/mg 10-20 [facility] Basic Metabolic Profile (BMP )on 08-15-2024 BUN/CRE 12.8 RATIO Normal - [facility] Comment on above: Performed By: #### L 499.0043 #### [facility] Laboratory [address] [place], [address] Calcium [Mass/Vol] 9.1 mg/dL Normal 7.6-11.0 [facility] Comment on above: Performed By: #### L 499.0043 #### [facility] Laboratory [address] [place], [address] Chloride [Moles/Vol] 100 mmol/L Normal 98-108 [facility] Comment on above: Performed By: #### L 499.0043 #### [facility] Laboratory [address] [place], [address] CO2 [Moles/Vol] 27.8 mmol/L Normal 21.0-32.0 [facility] Comment on above: Performed By: #### L 499.0043 #### [facility] Laboratory [address] [place], [address] Creatinine [Mass/Vol] 0.70 mg/dL Normal 0.70-1.20 [facility] Comment on above: Performed By: #### L 499.0043 #### [facility] Laboratory [address] [place], [address] ECRCL 92.81 ml/min Normal 50-250 [facility] Comment on above: Performed By: #### L 499.0043 #### [facility] Laboratory [address] [place], [address] GAP 11 Normal 5-15 [facility] Comment on above: Performed By: #### L 499.0043 #### [facility] Laboratory [address] [place], [address] GFR/1.73 sq M.predicted among non-blacks MDRD (S/P/Bld) [Vol rate/Area] 94 mL/min/{1.73_m2} Normal >60 [facility] Comment on above: Result Comment: mL/m in/1.73m2 CKD-EPI Creatinine Equation (2020) Performed By: #### L 499.0043 #### [facility] Laboratory [address] [place], [address] Glucose [Mass/Vol] 138 mg/dL High 70-99 [facility] Comment on above: Performed By: #### L 499.0043 #### [facility] Laboratory [address] [place], [address] Potassium [Moles/Vol] 3.6 mmol/L Normal 3.3-5.1 [facility] Comment on above: Performed By: #### L 499.0043 #### [facility] Laboratory [address] [place], [address] Sodium [Moles/Vol] 139 mmol/L Normal 133-145 [facility] Comment on above: Performed By: #### L 499.0043 #### [facility] Laboratory [address] [place], [address] Urea nitrogen [Mass/Vol] 9 mg/dL Normal 4-19 [facility] Comment on above: Performed By: #### L 499.0043 #### [facility] Laboratory [address] [place], [address] Basophil percentageOrdered B y: Hugh Mercado on 08-15-2024 Basophils/100 WBC (Bld) 1.0 % 0-1 [facility] CBC W/Diff, Automatedon Absolute Lymph 2.33 X10 3/uL Normal 0.83-4.51 [facility] Comment on above: Performed By: #### L 300.3900, L500.2500, L100.0100, L300.4310 ####[facility] [address] [place], [address] Absolute Neut 4.4 X10 3/uL Normal 2.0-7.7 [facility] Comment on above: Performed By: #### L 300.3900, L500.2500, L100.0100, L300.4310 ####[facility] [address] [place], [address] Basophils/100 WBC (Bld) 1.0 % Normal 0-1 [facility] Comment on above: Performed By: #### L 300.3900, L500.2500, L100.0100, L300.4310 ####[facility] [address] [place], [address] Eosinophils/100 WBC (Bld) 3.3 % Normal 0-5 [facility] Comment on above: Performed By: #### L 300.3900, L500.2500, L100.0100, L300.4310 ####[facility] [address] [place], [address] Erythrocyte distribution width (RBC) [Ratio] 13.7 % Normal 11.6-14.6 [facility] Comment on above: Performed By: #### L 300.3900, L500.2500, L100.0100, L300.4310 ####[facility] [address] [place], [address] Hematocrit (Bld) [Volume fraction] 46.5 % Normal 37-47 [facility] Comment on above: Performed By: #### L 300.3900, L500.2500, L100.0100, L300.4310 ####[facility] [address] [place], [address] Hemoglobin (Bld) [Mass/Vol] 14.8 g/dL Normal 12.0-15.0 [facility] Comment on above: Performed By: #### L 300.3900, L500.2500, L100.0100, L300.4310 ####[facility] [address] [place], [address] IG% 0.300 Normal 0.0-0.9 [facility] Comment on above: Result Comment: IG% - Immature Granulocytes (promyelocytes, myelocytes and metamyelocytes) > 1% indicates that a LEFT SHIFT is Present. Performed By: #### L 300.3900, L500.2500, L100.0100, L300.4310 ####[facility] [address] [place], [address] Lymphocytes/100 WBC (Bld) 29.9 % Normal 19-41 [facility] Comment on above: Performed By: #### L 300.3900, L500.2500, L100.0100, L300.4310 ####[facility] [address] [place], [address] MCH (RBC) [Entitic mass] 26.8 pg Low 27.0-32.0 [facility] Comment on above: Performed By: #### L 300.3900, L500.2500, L100.0100, L300.4310 ####[facility] [address] [place], [address] MCHC (RBC) [Mass/Vol] 31.8 g/dL Low 32-36 [facility] Comment on above: Performed By: #### L 300.3900, L500.2500, L100.0100, L300.4310 ####[facility] [address] [place], [address] MCV (RBC) [Entitic vol] 84.1 fL Normal 81-99 [facility] Comment on above: Performed By: #### L 300.3900, L500.2500, L100.0100, L300.4310 ####[facility] [address] [place], [address] Monocytes/100 WBC (Bld) 8.6 % Normal 0-10 [facility] Comment on above: Performed By: #### L 300.3900, L500.2500, L100.0100, L300.4310 ####[facility] [address] [place], [address] Neutrophils/100 WBC (Bld) 56.9 % Normal 47-70 [facility] Comment on above: Performed By: #### L 300.3900, L500.2500, L100.0100, L300.4310 ####[facility] [address] [place], [address] Nucleated RBC (Bld) [#/Vol] 0 10*3/uL Normal 0-5 [facility] Comment on above: Performed By: #### L 300.3900, L500.2500, L100.0100, L300.4310 ####[facility] [address] [place], [address] Platelet mean volume (Bld) [Entitic vol] 11.1 fL Normal 6.2-12.0 [facility] Comment on above: Performed By: #### L 300.3900, L500.2500, L100.0100, L300.4310 ####[facility] [address] [place], [address] Platelets (Bld) [#/Vol] 238 10*3/uL Normal 150-450 [facility] Comment on above: Performed By: #### L 300.3900, L500.2500, L100.0100, L300.4310 ####[facility] [address] [place], [address] RBC (Bld) [#/Vol] 5.53 10*6/uL High 4.2-5.4 [facility] Comment on above: Performed By: #### L 300.3900, L500.2500, L100.0100, L300.4310 ####[facility] [address] [place], [address] RDW SD 41.9 fl Normal 35.1-43.9 [facility] Comment on above: Performed By: #### L 300.3900, L500.2500, L100.0100, L300.4310 ####[facility] [address] [place], [address] WBC (Bld) [#/Vol] 7.8 10*3/uL Normal 4.4-11.0 [facility] Comment on above: Performed By: #### L 300.3900, L500.2500, L100.0100, L300.4310 ####[facility] [address] [place], [address] Carbon dioxide, total [Moles /volume] in Central venous bloodOrdered By: Hugh Mercado on 08-15-2024 CO2 [Moles/Vol] 27.8 mmol/L 21.0-32.0 [facility] Chloride assayOrdered By: Peterson Mercado on 08-15-2024 Chloride [Moles/Vol] 100 mmol/L 98-108 [facility] Emergency Department Summary on 08-15-2024 Emergency Department Summary [facility] Medical Records Department [address] [place] [address] Emergency Department Summary 08/15/24 MR#: [id number] Acct: [id number] Name: ABI REYNA Rep #: [id number] : 1955 69 From: Hugh Gayle PCP: Dr. Ottoniel Page DO Status:REG ER Location: ED HPI History of Present Illness Chief Complaint: Palpitations Informant: patient Narrative Narrative: Palpitations recurrent A-fib waking her at 11:30 PM 2.5 hours ago. Went to bed feeling fine. History of paroxysmal A-fib followed by roll scale man Dr. Keane. She states she had a brain tumor craniotomy 2003 therefore she election was not to do anticoagulants. She has no recent illness no cough no recent vomiting or diarrhea. No coronary disease history. She is on sotalol she took extra half dose of sotalol at midnight as treatment plans with her roll scale man. She still feels symptoms. Prior similar symptoms: Yes PFSH PFSH Medical History History of steroid therapy [...] Palpitations Hyperlipidemia Paroxysmal atrial fibrillation Home Medications ???Medication ???Instructions ???Recorded ???Last Taken ???Type oxycodone-acetaminophen 5 mg-325 1 tab PO Q4H PRN Pain 07/02/17 22:00 History mg tablet pantoprazole 40 mg tablet,delayed 40 mg PO DAILY 10/13/18 05/27/24 07:30 History release (Protonix) cephalexin 250 mg tablet 250 mg PO DAILY 09/23/19 05/26/24 History cyclobenzaprine 10 mg tablet 10 mg PO PRN PRN MUSCLE RELAXANT 0 09/23/19 Unknown History hydrochlorothiazide 25 mg tablet 25 mg PO DAILY 04/13/20 Unknown Hi story latanoprost 0.005 % eye drops 1 drp EACH EYE QHS 04/13/20 Unknow n History aspirin 81 mg tablet,delayed 81 mg PO QHS 08/24/20 05/26/24 His tory release promethazine 25 mg tablet 25 mg PO Q6H PRN Nausea 08/24/20 U nknown History ustekinumab 90 mg/mL subcutaneous 90 mg subcut .Q2MO 08/24/20 Unkno wn History syringe (Stelara) sotalol 80 mg tablet 80 mg PO BID #180 TABLETS 08/25/23 05/27/24 07:30 Rx gabapentin 400 mg capsule 400 mg PO TID 05/12/24 05/27/24 07 :30 History betamethasone dipropionate 0.05 % 1 applic topical QDAY PRN skin Unknown History topical ointment irritation bupropion HCl 150 mg 24 hr tablet, 150 mg PO QDAY 08/10/24 Unknown History extended release clobetasol 0.05 % topical cream 1 applic topical BID 08/10/24 Unkn own History clotrimazole 1 % topical cream 1 applic topical BID 08/10/24 Unkn own History ferrous sulfate 325 mg (65 mg 325 mg PO QDAY 08/10/24 Unknown Hi story iron) tablet,delayed release hyoscyamine sulfate 0.125 mg 0.125 mg PO Q6 PRN nausea/vomiting 08/10/24 Unknown History disintegrating tablet primidone 50 mg tablet 100 mg PO BID 08/10/24 Unknown His tory ropinirole 0.5 mg tablet 0.5 mg PO .COMPLEX 08/10/24 Unknow n History timolol maleate 0.5 % eye drops 1 drp ophthalmic (eye) DAILY 08/10 Unknown History Allergy/AdvReac Type Severity Reaction Status Date / Time prednisone Allergy Itching Verified 08/15/24 01:46 hydrocodone (From Vicodin) AdvReac Severe GI upset Verified 08/15/24 01:46 propoxyphene (From AdvReac Severe GI upset Verified 08/15/24 01:46 Darvocet-N) cortisone AdvReac Intermediate Unknown Verified 08/15/24 01:46 Family History Mother CAD (coronary artery disease) Myocardial infarction Father Hypertension Brother CAD (coronary artery disease) Surgical History History of thumb surgery ( 05/2024) History of cystoscopy History of tonsillectomy and adenoidectomy Hx laparoscopic cholecystectomy History of carpal tunnel surgery of right wrist Hx of bilateral breast reduction surgery History of back surgery (04/2020) History of lobectomy of thyroid Hx of craniotomy Social History Smoking Status: Former smoker alcohol intake: never substance use type: does not use (more content not included)... Normal [facility] Eosinophil percentageOrdered By: Hugh Mercado on 08-15-2024 Eosinophils/100 WBC (Bld) 3.3 % 0-5 [facility] Erythrocyte distribution wid th ratioOrdered By: Hugh Mercado on 08-15-2024 Erythrocyte distribution width (RBC) [Ratio] 13.7 % 11.6-14.6 [facility] Erythrocyte distribution wid th standard deviationOrdered By: Hugh Mercado on 08-15-2024 Erythrocyte distribution width (RBC) [Ratio] 41.9 fl 35.1-43.9 [facility] Glomerular filtration rate ( GFR) estimation/1.73 sq m using serum, plasma, or whole bOrdered By: Hugh Mercado on 08-15-2024 GFR/1.73 sq M.predicted among non-blacks MDRD (S/P/Bld) [Vol rate/Area] 94 mL/min/{1.73_m2} >60 [facility] Comment on above: mL/min/1.73m2 CKD-EP I Creatinine Equation (2020) Hematocrit Auto (Bld) [Volum e fraction]Ordered By: Hugh Mercado on 08-15-2024 Hematocrit (Bld) [Volume fraction] 46.5 % 37-47 [facility] Hemoglobin measurementOrdere d By: Hugh Mercado on 08-15-2024 Hemoglobin (Bld) [Mass/Vol] 14.8 g/dL 12.0-15.0 [facility] Immature granulocytes/100 WB C Auto (Bld)Ordered By: Hugh Mercado on 08-15-2024 Immature granulocytes/100 WBC (Bld) 0.300 % 0.0-0.9 [facility] Comment on above: IG% - Immature Granu locytes (promyelocytes, myelocytes and metamyelocytes) > 1% indicates that a LEFT SHIFT is Present. International normalized rat io (INR) calculationOrdered By: Hugh Mercado on 08-15-2024 INR Coag (Bld) [Relative time] 0.9 {INR} [facility] MCV (mean corpuscular volume ) determinationOrdered By: Hugh Mercado on 08-15-2024 MCV (RBC) [Entitic vol] 84.1 fL 81-99 [facility] Mean corpuscular hemoglobin (MCH) determinationOrdered By: Hugh Mercado on 08-15-2024 MCH (RBC) [Entitic mass] 26.8 pg Low 27.0-32.0 [facility] Mean corpuscular hemoglobin concentration (MCHC) determinationOrdered By: Hugh Mercado on 08-15-2024 MCHC (RBC) [Mass/Vol] 31.8 g/dL Low 32-36 [facility] Mean platelet volume determi nationOrdered By: Hugh Mercado on 08-15-2024 Platelet mean volume (Bld) [Entitic vol] 11.1 fL 6.2-12.0 [facility] Monocyte percentageOrdered B y: Hugh Mercado on 08-15-2024 Monocytes/100 WBC (Bld) 8.6 % 0-10 [facility] Neutrophil percentageOrdered By: Hugh Mercado on 08-15-2024 Neutrophils/100 WBC (Bld) 56.9 % 47-70 [facility] Nucleated red blood cell per centageOrdered By: Hugh Mercado on 08-15-2024 Nucleated RBC/100 WBC (Bld) [Ratio] 0 % 0-5 [facility] Partial Thromboplast Timeon 08-15-2024 aPTT Coag (Bld) [Time] 22.6 s Low 24.1-36.[address] [facility] Comment on above: Performed By: #### L 499.0043 #### [facility] Laboratory [address] [place], [address] Platelet countOrdered By: Peterson Mercado on 08-15-2024 Platelets (Bld) [#/Vol] 238 10*3/uL 150-450 [facility] Potassium measurement (mass/ volume)Ordered By: Hugh Mercado on 08-15-2024 Potassium (Unsp spec) [Mass/Vol] 3.6 mmol/L 3.3-5.1 [facility] Prothrombin Time w/INRon INR Coag (PPP) [Relative time] 0.9 {INR} Normal [facility] Comment on above: Performed By: #### L 499.0043 #### [facility] Laboratory [address] [place], [address] PT Coag (PPP) [Time] 12.3 s Normal 11.7-14.9 [facility] Comment on above: Performed By: #### L 499.0043 #### [facility] Laboratory [address] [place], [address] Prothrombin timeOrdered By: Hugh Mercado on 08-15-2024 PT Coag (PPP) [Time] 12.3 s 11.7-14.9 [facility] RBC Auto (Bld) [#/Vol]Ordere d By: Hugh Mercado on 08-15-2024 RBC (Bld) [#/Vol] 5.53 10*6/uL High 4.2-5.4 [facility] Serum creatinine measurement (mass/volume)Ordered By: Hugh Mercado on 08-15-2024 Creatinine [Mass/Vol] 0.70 mg/dL 0.70-1.20 [facility] Serum glucose measurement (m ass/volume)Ordered By: Hugh Mercado on 08-15-2024 Glucose [Mass/Vol] 138 mg/dL High 70-99 [facility] Serum or plasma calcium [place] urement (mass/volume)Ordered By: Hugh Mercado on 08-15-2024 Calcium [Mass/Vol] 9.1 mg/dL 7.6-11.0 [facility] Serum or plasma urea nitroge n measurement (mass/volume)Ordered By: Hugh Nhung on 08-15-2024 Urea nitrogen [Mass/Vol] 9 mg/dL 4-19 [facility] Sodium levelOrdered By: Hugh Mercado on 08-15-2024 Sodium [Moles/Vol] 139 mmol/L 133-145 [facility] White blood cell (WBC) count Ordered By: Hugh Mercado on 08-15-2024 WBC (Bld) [#/Vol] 7.8 10*3/uL 4.4-11.0 [facility] Cardiology Visit Reporton Cardiology Visit Report [facility] [place] [address] OFFICE VISIT Date of Service: 08/10/24 MR#: [id number] Acct: [id number] Name: ABI REYNA Rep #: [id number] : 1955 Provider: KIMBERLY Casey Age/Sex: 69/F Location[facility] Status: Signed HPI HPI History of Present [...] well. She does not have any chest discomfort/heaviness/ti ghtness. Her exercise tolerance is stable for her [...] NIBP Intake Visit Reasons: 1 Y [employer] Required: No Is patient in pain?: No Allergies prednisone Allergy (Verified 08/10/24 08:32) Itching hydrocodone (From Vicodin) Adverse Reaction (Severe, Verified 08/10/24 08:32) GI upset propoxyphene (From Darvocet-N) Adverse Reaction (Severe, Verified 08/10/24 08:32) GI upset cortisone Adverse Reaction (Intermediate, Verified 08/10/24 08:32) Unknown Medications ???Medication ???Instructions ???Recorded ???Confirmed ???Type oxycodone-acetaminophen 5 mg-325 1 tab PO Q4H [...] Paroxysmal a (more content not included)... Normal [facility] Breast imaging reportOrdered By: Basilia Estrada on 08-04-2024 Study report [facility] Imaging Services [address] [place] [id number] SCRN MAMM (CAD)W/PATEL BILAT MR#: [id number] Acct: [id number] Name: ABI REYNA Rep #: [id number] : 1955 F 69 From: Miroslava Estrada MD PCP: Dr. Ottoniel Page DO Status: REG CLI Study:SCRN MAMM (CAD)W/PATEL BILAT Date of Exa m: 08/04/24 Exam# [id number] Ordering Dr: Ottoniel Page DO EXAM: SCRN [...] be mailed to the patient. Reading Location: [facility] CC: Dr. Ottoniel Page DO ~ Pharmacy General Manager: Signed [facility] SCRN MAMM (CAD)W/PATEL BILATo n 08-04-2024 SCRN MAMM (CAD)W/PATEL BILAT [facility] Imaging Services [address] [place], [place] [address] SCRN MAMM (CAD)W/PATEL BILAT MR#: [id number] Acct: [id number] Name: ABI REYNA Rep #: [id number] : 1955 F 69 From: Basilia Estrada MD PCP: Dr. Ottoniel Page, DO Status: REG CLI Study: SCRN MAMM (CAD)W/PATEL BILAT Date of Exam: 07/09 11/01 Exam# [id number] Ordering Dr: Ottoniel Page DO EXAM: SCRN [...] be mailed to the patient. Reading Location: [facility] CC: Dr. Ottoniel Page, Pharmacy General Manager: Signed Normal [facility] Re-Evalution OTon 07-20-2024 Re-Evalution OT [facility] Occupational Therapy [address] [place] [address] / REEVALUATION / MEDICARE RECERTIFICATION OCCUPATIONAL THERAPY MR#: [id number] Acct: [id number] Name: ABI REYNA Rep #: [id number] : 1955 69 From: Janeth Nash OTR/L, CHT Referring Dr.: Dr. Bruno Avila, DO Status: REG RCR Insurance: [facility] Date: SELF PAY INSURANCE Re-Evaluation Intro: Dr. [...] right IP 40* right MP 40* right machine silk screen printer strength 32# left is 55# right lateral [...] Yes Goal:ROM equal to unaffected hand: Yes Goal:Metal Gauge Maker/Pinch strength at least 75% of unaffected hand: [...] do not hesitate to contact me at [phone] by phone or if you have questions or concerns regarding this new plan of care! Sincerely, Janeth Nash, PROSPERR/[place], CHT 07/20/24 1201 CC: Dr. Ottoniel Page DO; Dr. Bruno Avila DO MK Signed For Medicare only, by signing this I certify the plan of care. Physicians Signature Date Normal [facility] OT General Evaluationon 06-09 OT General Evaluation [facility] Occupational Therapy [facility] [address] [place] [address] / REHABILITATION SERVICES INITIAL EVALUATION MR#: [id number] Acct: [id number] Name: ABI REYNA Rep #: [id number] : 1955 69 From: Janeth SOTO CHT Referring Dr.: Dr. Bruno Avila DO Status: REG R Insurance: [facility] Date: SELF PAY INSURANCE Patient's Visit Information Visit Information Visit Information: ABI REYNA is a 69 year old F, referred to Occupational Therapy by Dr. Bruno Avila DO, with a diagnosis of right primary OA cmcJ. Date of Evaluation: 06/28/24 Occupational Therapist: CHARLES Durant, BK Subjective Subjective: This 69 year old female [...] 60 IP: right 20 left 60 Strength Metal Gauge Maker: right NT left 65# Lateral Pinch: right NT left 12# Tripod Pinch: right NT left 16# Sensation Sensation Comments: denies Goals Goal:Daily scar massage when approriate: Yes Goal:ROM equal to unaffected hand: Yes Goal:Metal Gauge Maker/Pinch strength at least 75% of unaffected hand: Yes Comment: will not initiate until week 6 for machine silk screen printer/pinch at week 8 or later Goal:No pain [...] night and heavy activity. Exercise: start gentle strengthening(thera-put ty), progress as tolerated Progress to wrist strengthening [...] optimum results slight decrease in pinch and machine silk screen printer strength generally, gain 70% of strength and motion of unoperated hand. TEXT: Thank you for the opportunity to evaluate your patient. For Medicare and Medicare HMO plans, please review the plan of care and approve it. It will need to be FAXED BACK to us at [phone] for Medicare purposes. Please let me know if there are questions or concerns regarding this plan of care. Physician Signature: Date: 06/28/24 1746 CC: Dr. Ottoniel Page DO; Dr. Bruno Avila DO MK Signed For Medicare only, by signing this I certify the plan of care. _ (more content not included)... Normal [facility] Hand 2 Viewson 05-27-2024 Hand 2 Views [facility] Imaging Services [address], [place] [id number] Hand 2 Views MR#: [id number] Acct: [id number] Name: ABI REYNA Rep #: [id number] : 1955 F 68 From: Ottoniel Mercado MD PCP: Dr. Ottoniel Page DO Status: [facility] Study: Hand 2 Views Date of Exam: 05/27/24 Exam# [id number] Ordering Dr: Bruno Avila DO EXAM: XR [...] operative note for further details. Reading Location: [facility] CC: Dr. Ottoniel Page DO; Dr. Bruno Avila DO Pharmacy General Manager: Signed [facility] MR/POSTOP.ANEon 05-27-2024 MR/POSTOP.[facility] Medical Records Department [address] [place] [address] Anesthesia Postop Eval I 05/27/24 1346 MR#: [id number] Acct: [id number] Name: ABI REYNA Rep #: [id number] : 1955 68 From: Gatiot Jiménez CRNA PCP: Dr. Ottoniel Page DO Status:REG [facility] Y Race: C Location: [place] [address] Anesthesia: Postop Eval I Current Vital Signs [...] completed: Yes 05/27/24 1347 Date Gatito Jiménez SAFETY PROFESSIONAL Cosigner Signature: Date CC: Signed [facility] MR/UUVRLBBW0hx 05-27-2024 MR/POSTOPAN2 [facility] Medical Records Department [address] [place] [address] Anesthesia Postop Eval II 05/27/24 1441 MR#: [id number] Acct: [id number] Name: ABI REYNA Rep #: [id number] : 1955 68 From: Zuri Copeland PCP: Dr. Ottoniel Page, DO Status:REG SDC Y Race: C Location: [place] [address] Anesthesia Postop Eval I Sum Postop Eval Completion status Anesthesia document: Postop Eval 1 completed: Yes Anesthesia Postop Eval I Summary Anesthesia Postop Eval I Summary: Anesthesia Postop Eval I: Assessment Summary Airway patent Yes 05/27/24 13:47 SAFETY PROFESSIONAL.BHOS Spontaneous unlabored Yes 05/27/24 13:47 SAFETY PROFESSIONAL.BHOS respirations Mental status Awake,Calm 05/27/24 13:47 SAFETY PROFESSIONAL.BHOS nausea No 05/27/24 13:47 SAFETY PROFESSIONAL.BHOS Vomiting No 05/27/24 13:47 SAFETY PROFESSIONAL.BHOS Anesthesia Postop Eval I: Fluid Summary Crystalloid volume administer 800 05/27/24 13:47 SAFETY PROFESSIONAL.BHOS (ml) Colloids volume administered ( ml) Blood Product volume administered (ml) Total IV fluid infused 800 05/27/24 13:47 SAFETY PROFESSIONAL.BHOS Anesthesia Postop Eval I: Summary Notes Anesthesia Complication No 05/27/24 13:47 SAFETY PROFESSIONAL.BHOS Anesthesia Complication Comment: Post-operative progress note Anesthesia: Postop Eval II Evaluation Mental status: Awake Pain Level: 1 nausea: No Vomiting: No 05/27/24 1441 Date Zuri Madrid Signature: Date CC: Signed Normal [facility] Operative Reporton 5 Operative Report [facility] Medical Records Department [address] [place] [address] Operative Report 05/27/24 1341 MR#: [id number] Acct: [id number] Name: ABI REYNA Rep #: [id number] : 1955 68 From: Bruno Avila DO PCP: Dr. Ottoniel Page DO Status:REG [facility] Location: [place] [address] Operative Report (Standard) Operative Information Date of Procedure: 05/27/24 Pre-Operative Diagnosis: Right first carpal metacarpal joint osteoarthritis Post-Operative Diagnosis: Right first carpal metacarpal joint osteoarthritis Surgery/Procedure Performed: Right first carpometacarpal joint arthroplasty with trapezium excision, ligament reconstruction tendon interposition transmitter engineer in charge: Yes Fixed Route Operator: Makeda Hermosillo Tasks completed by electrician assistant: Opening closing and Implanting device Type of [...] 12:06 Procedure Stop Time: 13:36 Select all DRAINS/GRAFTS/IMPLANTS that apply: Implanted device Implanted device details: [...] FCR tendon. (more content not included)... Normal [facility] Electrocardiogram reportOrde red By: Daphne Manuel on 05-24-2024 EKG study [facility] Cardiovascular Services [address] [place] [address] 12 Lead EKG 05/21/24 0753 MR#: [id number] Acct: [id number] Name: ABI REYNA Rep #:[id number] : 1955 68 From: Daphne marie MD Attending Dr: Dr. Bruno Avila DO Status: PRE SDC Ordering Dr: Bruno Avila DO Date: 05/21/24 Location: [facility] Sex: F C Admitted: Test Reason : PRE OP Blood Pressure : */* mmHG Vent. Rate : 63 BPM Atrial Rate : 63 BPM P-R Int : 194 ms QRS Dur : 92 ms QT Int : 414 ms P-R-T Axes : 51 45 41 degrees QTcB Int : 423 ms Normal sinus rhythm Normal ECG Confirmed by BYORN RICK, BENJAMIN ([id number]), non linear editor ATUL MARINO ([id number]) on 05/24/2024 10:51:06 AM Referred By: Bruno Avila Confirmed By: BENJAMIN MANUEL MD 05/24/24 105 Date _ Daphne Manuel MD CC: Dr. Ottoniel Page, ; Dr. Bruno Avila DO ~ Signed [facility] Work Phone: 12 Lead EKGon 05-21-2024 12 Lead EKG [facility] Cardiovascular Services [address] [place] [address] 12 Lead EKG 05/21/24 0753 MR#: [id number] Acct: [id number] Name: ABI REYNA Rep #: [id number] : 1955 68 From: Daphne Manuel MD Attending Dr: Dr. Bruno Avila DO Status: PRE SDC Ordering Dr: Bruno Avila DO Date: 05/21/24 Location: [facility] Sex: F C Admitted: Test Reason : PRE OP Blood Pressure : */* mmHG Vent. Rate : 63 BPM Atrial Rate : 63 BPM P-R Int : 194 ms QRS Dur : 92 ms QT Int : 414 ms P-R-T Axes : 51 45 41 degrees QTcB Int : 423 ms Normal sinus rhythm Normal ECG Confirmed by BYRON RICK, BENJAMIN ([id number]), non linear editor ATUL MARINO ([id number]) on 05/24/2024 10:51:06 AM Referred By: Bruno Avila Confirmed By: BENJAMIN MANUEL MD 05/24/24 1051 Date Daphne Manuel MD CC: Dr. Ottoniel Page DO; Dr. Bruno Avila DO Signed [facility] MR/PAT.ANEon 05-12-2024 MR/PAT.[facility] Medical Records Department [address] [place] [address] PAT - Anesthesia 05/12/24 1148 MR#: [id number] Acct: [id number] Name: ABI REYNA Rep #: [id number] : 1955 68 From: Lars Dela Cruz MD PCP: Dr. 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 Hx Hospitalization No 05/12/24 11:05 Any Problems [...] take am of surgery PONV PONV - tug boat engineer: PONV - tug boat engineer Female Yes 05/12/24 11:05 HX of Motion [...] 08/11/23 08:29 Respiratory Assessment Respiratory Assessment - tug boat engineer: Respiratory Tract Infection Hx - tug boat engineer Hx Respiratory Tract Infection No 05/12/24 11:05 STOP Sleep Apnea STOP Sleep Apnea - tug boat engineer: STOP Sleep Apnea - tug boat engineer Hx Hypertension Yes: CONTROLLED WITH MEDS 05/12/24 [...] Tobacco Use History Tobacco Use History - tug boat engineer: Tobacco Use History - tug boat engineer Tobacco Use Smoking Status Former smoker 05/12/24 11:05 Hx Tobacco Use No 05/12/24 11:05 Years Smoking Packs Smoked per Day Smoking Cessation Date was No - quit smoking greater 05/12/24 11:05 within the last 15 years than 15 years ago Hx Smoking Cessation Date 03/10/99 05/12/24 11:05 Hx Smoking Cessation Counseling Hematologic Medial History Hematologic Hx - tug boat engineer: 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 Normal [facility] Absolute lymphocyte countOrd ered By: Bruno Avila on 05-10-2024 Lymphocytes Auto (Unsp spec) [#/Vol] 1.60 10*3/uL 0.83-4.51 [facility] Absolute neutrophil countOrd ered By: Bruno Avila on 05-10-2024 Neutrophils (Bld) [#/Vol] 4.7 10*3/uL 2.0-7.7 [facility] Automated lymphocyte count a s percentage of total leukocytesOrdered By: Bruno Avila on 05-10-2024 Lymphocytes/100 WBC Auto (Unsp spec) 22.3 % 19-41 [facility] BUN/creatinine ratioOrdered By: Bruno Avila on 05-10-2024 Urea nitrogen/Creatinine [Mass ratio] 13.5 mg/mg 10-20 [facility] Basic Metabolic Profile (BMP )on 05-10-2024 Anion gap [Moles/Vol] 10 mmol/L Normal 5-15 [facility] Comment on above: Order Comment: DR PAL STKOES NEEDS RESULTS OF CBC ALSO Performed By: #### L 100.0100, L500.2500 ####[facility] [address] [place], [address] BUN/CRE 13.5 RATIO Normal 10-20 [facility] Comment on above: Order Comment: DR PAL STOKES NEEDS RESULTS OF CBC ALSO Performed By: #### L 100.0100, L500.2500 ####[facility] [address] [place], [address] Calcium [Mass/Vol] 9.5 mg/dL Normal 7.6-11.0 [facility] Comment on above: Order Comment: DR PAL STOKES NEEDS RESULTS OF CBC ALSO Performed By: #### L 100.0100, L500.2500 ####[facility] [address] [place], [address] Chloride [Moles/Vol] 97 mmol/L Normal 96-108 [facility] Comment on above: Order Comment: DR PAL STOKES NEEDS RESULTS OF CBC ALSO Performed By: #### L 100.0100, L500.2500 ####[facility] [address] [place], [address] CO2 [Moles/Vol] 30.3 mmol/L High 22.0-29.0 [facility] Comment on above: Order Comment: DR PAL STOKES NEEDS RESULTS OF CBC ALSO Performed By: #### L 100.0100, L500.2500 ####[facility] [address] [place], [address] Creatinine [Mass/Vol] 0.65 mg/dL Low 0.70-1.20 [facility] Comment on above: Order Comment: DR PAL STOKES NEEDS RESULTS OF CBC ALSO Performed By: #### L 100.0100, L500.2500 ####[facility] [address] [place], [address] GFR/1.73 sq M.predicted among non-blacks MDRD (S/P/Bld) [Vol rate/Area] 96 mL/min/{1.73_m2} Normal >60 [facility] Comment on above: Order Comment: DR PAL STOKES NEEDS RESULTS OF CBC ALSO Result Comment: mL/m in/1.73m2 CKD-EPI Creatinine Equation (2020) Performed By: #### L 100.0100, L500.2500 ####[facility] [address] [place], [address] Glucose [Mass/Vol] 114 mg/dL High 70-99 [facility] Comment on above: Order Comment: DR PAL STOKES NEEDS RESULTS OF CBC ALSO Performed By: #### L 100.0100, L500.2500 ####[facility] [address] [place], [address] Potassium [Moles/Vol] 4.0 mmol/L Normal 3.3-5.1 [facility] Comment on above: Order Comment: DR PAL STOKES NEEDS RESULTS OF CBC ALSO Performed By: #### L 100.0100, L500.2500 ####[facility] [address] [place], [address] Sodium [Moles/Vol] 137 mmol/L Normal 133-145 [facility] Comment on above: Order Comment: DR PAL STOKES NEEDS RESULTS OF CBC ALSO Performed By: #### L 100.0100, L500.2500 ####[facility] [address] [place], [address] Urea nitrogen [Mass/Vol] 9 mg/dL Normal 4-19 [facility] Comment on above: Order Comment: DR PAL STOKES NEEDS RESULTS OF CBC ALSO Performed By: #### L 100.0100, L500.2500 ####[facility] [address] [place], [address] Anion Gap Normal 5-15 [facility] Comment on above: Result Comment: WRON G V ACCOUNT Performed By: #### L 500.2500, L100.0100 #### [facility] Laboratory [address] [place], [address] BUN Normal 4-19 [facility] Comment on above: Result Comment: WRON G V ACCOUNT Performed By: #### L 500.2500, L100.0100 #### [facility] Laboratory [address] [place], [address] BUN/CRE Normal 10-20 [facility] Comment on above: Result Comment: WRON G V ACCOUNT Performed By: #### L 500.2500, L100.0100 #### [facility] Laboratory [address] [place], [address] Calcium Normal 7.6-11.0 [facility] Comment on above: Result Comment: WRON G V ACCOUNT Performed By: #### L 500.2500, L100.0100 #### [facility] Laboratory [address] [place], [address] Chloride Normal 96-108 [facility] Comment on above: Result Comment: WRON G V ACCOUNT Performed By: #### L 500.2500, L100.0100 #### [facility] Laboratory [address] [place], [address] CO2 Normal 22.0-29.0 [facility] Comment on above: Result Comment: WRON G V ACCOUNT Performed By: #### L 500.2500, L100.0100 #### [facility] Laboratory [address] [place], [address] CREAT,SERUM Normal 0.70-1.20 [facility] Comment on above: Result Comment: WRON G V ACCOUNT Performed By: #### L 500.2500, L100.0100 #### [facility] Laboratory [address] [place], [address] eGFR Normal >60 [facility] Comment on above: Result Comment: WRON G V ACCOUNT Performed By: #### L 500.2500, L100.0100 #### [facility] Laboratory [address] [place], [address] GLU Normal 70-99 [facility] Comment on above: Result Comment: WRON G V ACCOUNT Performed By: #### L 500.2500, L100.0100 #### [facility] Laboratory [address] [place], [address] Potassium Normal 3.3-5.1 [facility] Comment on above: Result Comment: WRON G V ACCOUNT Performed By: #### L 500.2500, L100.0100 #### [facility] Laboratory [address] [place], [address] Sodium Normal 133-145 [facility] Comment on above: Result Comment: WRON G V ACCOUNT Performed By: #### L 500.2500, L100.0100 #### [facility] Laboratory [address] [place], [address] Basophil percentageOrdered B y: Bruno Avila on 05-10-2024 Basophils/100 WBC (Bld) 1.4 % High 0-1 [facility] CBC W/ Manual Differentialon 05-10-2024 Absolute Neut Normal 2.0-7.7 [facility] Comment on above: Result Comment: WRON G V ACCOUNT Performed By: #### L 100.0125 ####[facility] [address] [place], [address] HCT Normal 37-47 [facility] Comment on above: Result Comment: WRON G V ACCOUNT Performed By: #### L 100.0125 ####[facility] [address] [place], [address] HGB Normal 12.0-15.0 [facility] Comment on above: Result Comment: WRON G V ACCOUNT Performed By: #### L 100.0125 ####[facility] [address] [place], [address] MCH Normal 27.0-32.0 [facility] Comment on above: Result Comment: WRON G V ACCOUNT Performed By: #### L 100.0125 ####[facility] [address] [place], [address] MCHC Normal 32-36 [facility] Comment on above: Result Comment: WRON G V ACCOUNT Performed By: #### L 100.0125 ####[facility] [address] [place], [address] MCV Normal 81-99 [facility] Comment on above: Result Comment: WRON G V ACCOUNT Performed By: #### L 100.0125 ####[facility] [address] [place], [address] PLT Normal 150-450 [facility] Comment on above: Result Comment: WRON G V ACCOUNT Performed By: #### L 100.0125 ####[facility] [address] [place], [address] RBC Normal 4.2-5.4 [facility] Comment on above: Result Comment: WRON G V ACCOUNT Performed By: #### L 100.0125 ####[facility] [address] [place], [address] RDW Normal 11.6-14.6 [facility] Comment on above: Result Comment: WRON G V ACCOUNT Performed By: #### L 100.0125 ####[facility] [address] [place], [address] WBC Normal 4.4-11.0 [facility] Comment on above: Result Comment: WRON G V ACCOUNT Performed By: #### L 100.0125 ####[facility] [address] [place], [address] CBC W/Diff, Automatedon 03-0 3-2024 Absolute Lymph 1.60 X10 3/uL Normal 0.83-4.51 [facility] Comment on above: Order Comment: DR. Alpa DONOVAN NEEDS RESULTS OF CBC ALSO Performed By: #### L 100.0100, L500.2500 ####[facility] [address] [place], [address] Absolute Neut 4.7 X10 3/uL Normal 2.0-7.7 [facility] Comment on above: Order Comment: DR. Alpa DONOVAN NEEDS RESULTS OF CBC ALSO Performed By: #### L 100.0100, L500.2500 ####[facility] [address] [place], [address] Basophils/100 WBC (Bld) 1.4 % High 0-1 [facility] Comment on above: Order Comment: DR. Alpa DONOVAN NEEDS RESULTS OF CBC ALSO Performed By: #### L 100.0100, L500.2500 ####[facility] [address] [place], [address] Eosinophils/100 WBC (Bld) 3.9 % Normal 0-5 [facility] Comment on above: Order Comment: DR. Alpa DONOVAN NEEDS RESULTS OF CBC ALSO Performed By: #### L 100.0100, L500.2500 ####[facility] [address] [place], [address] Erythrocyte distribution width (RBC) [Ratio] 13.8 % Normal 11.6-14.6 [facility] Comment on above: Order Comment: DR. Alpa DONOVAN NEEDS RESULTS OF CBC ALSO Performed By: #### L 100.0100, L500.2500 ####[facility] [address] [place], [address] Hematocrit (Bld) [Volume fraction] 45.9 % Normal 37-47 [facility] Comment on above: Order Comment: DR. Alpa DONOVAN NEEDS RESULTS OF CBC ALSO Performed By: #### L 100.0100, L500.2500 ####[facility] [address] [place], [address] Hemoglobin (Bld) [Mass/Vol] 14.7 g/dL Normal 12.0-15.0 [facility] Comment on above: Order Comment: DR. Alpa DONOVAN NEEDS RESULTS OF CBC ALSO Performed By: #### L 100.0100, L500.2500 ####[facility] [address] [place], [address] IG% 0.400 Normal 0.0-0.9 [facility] Comment on above: Order Comment: DR. Alpa DONOVAN NEEDS RESULTS OF CBC ALSO Result Comment: IG% - Immature Granulocytes (promyelocytes, myelocytes and metamyelocytes) > 1% indicates that a LEFT SHIFT is Present. Performed By: #### L 100.0100, L500.2500 ####[facility] [address] [place], [address] Lymphocytes/100 WBC (Bld) 22.3 % Normal 19-41 [facility] Comment on above: Order Comment: DR. Alpa DONOVAN NEEDS RESULTS OF CBC ALSO Performed By: #### L 100.0100, L500.2500 ####[facility] [address] [place], [address] MCH (RBC) [Entitic mass] 27.0 pg Normal 27.0-32.0 [facility] Comment on above: Order Comment: DR. Alpa DONOVAN NEEDS RESULTS OF CBC ALSO Performed By: #### L 100.0100, L500.2500 ####[facility] [address] [place], [address] MCHC (RBC) [Mass/Vol] 32.0 g/dL Normal 32-36 [facility] Comment on above: Order Comment: DR. Alpa DONOVAN NEEDS RESULTS OF CBC ALSO Performed By: #### L 100.0100, L500.2500 ####[facility] [address] [place], [address] MCV (RBC) [Entitic vol] 84.2 fL Normal 81-99 [facility] Comment on above: Order Comment: DR. Alpa DONOVAN NEEDS RESULTS OF CBC ALSO Performed By: #### L 100.0100, L500.2500 ####[facility] [address] [place], [address] Monocytes/100 WBC (Bld) 6.8 % Normal 0-10 [facility] Comment on above: Order Comment: DR. Alpa DONOVAN NEEDS RESULTS OF CBC ALSO Performed By: #### L 100.0100, L500.2500 ####[facility] [address] [place], [address] Neutrophils/100 WBC (Bld) 65.2 % Normal 47-70 [facility] Comment on above: Order Comment: DR. Alpa DONOVAN NEEDS RESULTS OF CBC ALSO Performed By: #### L 100.0100, L500.2500 ####[facility] [address] [place], [address] Nucleated RBC (Bld) [#/Vol] 0 10*3/uL Normal 0-5 [facility] Comment on above: Order Comment: DR. Alpa DONOVAN NEEDS RESULTS OF CBC ALSO Performed By: #### L 100.0100, L500.2500 ####[facility] [address] [place], [address] Platelet mean volume (Bld) [Entitic vol] 11.5 fL Normal 6.2-12.0 [facility] Comment on above: Order Comment: DR. Alpa DONOVAN NEEDS RESULTS OF CBC ALSO Performed By: #### L 100.0100, L500.2500 ####[facility] [address] [place], [address] Platelets (Bld) [#/Vol] 241 10*3/uL Normal 150-450 [facility] Comment on above: Order Comment: DR. Alpa DONOVAN NEEDS RESULTS OF CBC ALSO Performed By: #### L 100.0100, L500.2500 ####[facility] [address] [place], [address] RBC (Bld) [#/Vol] 5.45 10*6/uL High 4.2-5.4 [facility] Comment on above: Order Comment: DR. Alpa DONOVAN NEEDS RESULTS OF CBC ALSO Performed By: #### L 100.0100, L500.2500 ####[facility] [address] [place], [address] RDW SD 42.1 fl Normal 35.1-43.9 [facility] Comment on above: Order Comment: DR. Alpa DONOVAN NEEDS RESULTS OF CBC ALSO Performed By: #### L 100.0100, L500.2500 ####[facility] [address] [place], [address] WBC (Bld) [#/Vol] 7.2 10*3/uL Normal 4.4-11.0 [facility] Comment on above: Order Comment: DR. Alpa DONOVAN NEEDS RESULTS OF CBC ALSO Performed By: #### L 100.0100, L500.2500 ####[facility] [address] [place], [address] Absolute Neut Normal 2.0-7.7 [facility] Comment on above: Result Comment: ANNA Salgado V ACCOUNT Performed By: #### L 500.2500, L100.0100 #### [facility] Laboratory [address] [place], [address] HCT Normal 37-47 [facility] Comment on above: Result Comment: ANNA G V ACCOUNT Performed By: #### L 500.2500, L100.0100 #### [facility] Laboratory [address] [place], [address] HGB Normal 12.0-15.0 [facility] Comment on above: Result Comment: WRON G V ACCOUNT Performed By: #### L 500.2500, L100.0100 #### [facility] [address] [place], [address] MCH Normal 27.0-32.0 [facility] Comment on above: Result Comment: WRON G V ACCOUNT Performed By: #### L 500.2500, L100.0100 #### [facility] Laboratory [address] [place], [address] MCHC Normal 32-36 [facility] Comment on above: Result Comment: WRON G V ACCOUNT Performed By: #### L 500.2500, L100.0100 #### [facility] [address] [place], [address] MCV Normal 81-99 [facility] Comment on above: Result Comment: WRON G V ACCOUNT Performed By: #### L 500.2500, L100.0100 #### [facility] [address] [place], [address] NEUT% Normal 47-70 [facility] Comment on above: Result Comment: WRON G V ACCOUNT Performed By: #### L 500.2500, L100.0100 #### [facility] [address] [place], [address] PLT Normal 150-450 [facility] Comment on above: Result Comment: WRON G V ACCOUNT Performed By: #### L 500.2500, L100.0100 #### [facility] [address] [place], [address] RBC Normal 4.2-5.4 [facility] Comment on above: Result Comment: WRON G V ACCOUNT Performed By: #### L 500.2500, L100.0100 #### [facility] [address] [place], [address] RDW CV Normal 11.6-14.6 [facility] Comment on above: Result Comment: WRON G V ACCOUNT Performed By: #### L 500.2500, L100.0100 #### [facility] [address] [place], [address] RDW SD Normal 35.1-43.9 [facility] Comment on above: Result Comment: WRON G V ACCOUNT Performed By: #### L 500.2500, L100.0100 #### [facility] [address] [place], [address] WBC Normal 4.4-11.0 [facility] Comment on above: Result Comment: WRON G V ACCOUNT Performed By: #### L 500.2500, L100.0100 #### [facility] [address] [place], [address] Carbon dioxide measurementOr dered By: Bruno Avila on 05-10-2024 CO2 [Moles/Vol] 30.3 mmol/L High 22.0-29.0 [facility] Chloride measurementOrdered By: Bruno Avila on 05-10-2024 Chloride [Moles/Vol] 97 mmol/L 96-108 [facility] Eosinophil percentageOrdered By: Bruno Avila on 05-10-2024 Eosinophils/100 WBC (Bld) 3.9 % 0-5 [facility] Erythrocyte distribution wid th ratioOrdered By: Bruno Avila on 05-10-2024 Erythrocyte distribution width (RBC) [Ratio] 13.8 % 11.6-14.6 [facility] Erythrocyte distribution wid th standard deviationOrdered By: Bruno Avila on 05-10-2024 Erythrocyte distribution width (RBC) [Entitic vol] 42.1 fL 35.1-43.9 [facility] Erythrocyte distribution width (RBC) [Ratio] 42.1 fl 35.1-43.9 [facility] GFR/1.73 sq M.predicted nikki g non-blacks MDRD (S/P/Bld) [Vol rate/Area]Ordered By: Bruno Avila on 05-10-2024 Estimated GFR (MDRD) Non-Af Amer 96 >60 [facility] Comment on above: mL/min/1.73m2 CKD-EP I Creatinine Equation (2020) Glomerular filtration rate ( GFR) estimation/1.73 sq m using serum, plasma, or whole bOrdered By: Bruno Avila on 05-10-2024 GFR/1.73 sq M.predicted among non-blacks MDRD (S/P/Bld) [Vol rate/Area] 96 mL/min/{1.73_m2} >60 [facility] Comment on above: mL/min/1.73m2 CKD-EP I Creatinine Equation (2020) Hematocrit Auto (Bld) [Volum e fraction]Ordered By: Bruno Avila on 05-10-2024 Hematocrit (Bld) [Volume fraction] 45.9 % 37-47 [facility] Hemoglobin measurementOrdere d By: Bruno Avila on 05-10-2024 Hemoglobin (Bld) [Mass/Vol] 14.7 g/dL 12.0-15.0 [facility] Immature granulocytes/100 WB C Auto (Bld)Ordered By: Bruno Avila on 05-10-2024 Immature granulocytes/100 WBC (Bld) 0.400 % 0.0-0.9 [facility] Comment on above: IG% - Immature Granu locytes (promyelocytes, myelocytes and metamyelocytes) > 1% indicates that a LEFT SHIFT is Present. Lymphocytes Auto (Unsp spec) [#/Vol]Ordered By: Bruno Avila on 05-10-2024 Lymphocytes (Bld) [#/Vol] 1.60 10*3/uL 0.83-4.51 [facility] Lymphocytes/100 WBC Auto (Un sp spec)Ordered By: Bruno Avila on 05-10-2024 Lymphocytes/100 WBC (Bld) 22.3 % 19-41 [facility] MCV (mean corpuscular volume ) determinationOrdered By: Bruno Avila on 05-10-2024 MCV (RBC) [Entitic vol] 84.2 fL 81-99 [facility] Mean corpuscular hemoglobin (MCH) determinationOrdered By: Bruno Avila on 05-10-2024 MCH (RBC) [Entitic mass] 27.0 pg 27.0-32.0 [facility] Mean corpuscular hemoglobin concentration (MCHC) determinationOrdered By: Bruno Avila on 05-10-2024 MCHC (RBC) [Mass/Vol] 32.0 g/dL 32-36 [facility] Mean platelet volume determi nationOrdered By: Bruno Avila on 05-10-2024 Platelet mean volume (Bld) [Entitic vol] 11.5 fL 6.2-12.0 [facility] Monocyte percentageOrdered B y: Bruno Avila on 05-10-2024 Monocytes/100 WBC (Bld) 6.8 % 0-10 [facility] Neutrophil percentageOrdered By: Bruno Avila on 05-10-2024 Neutrophils/100 WBC (Bld) 65.2 % 47-70 [facility] Nucleated red blood cell per centageOrdered By: Bruno Avila on 05-10-2024 Nucleated RBC/100 WBC (Bld) [Ratio] 0 % 0-5 [facility] Platelet countOrdered By: Rosita Avila on 05-10-2024 Platelets (Bld) [#/Vol] 241 10*3/uL 150-450 [facility] RBC Auto (Bld) [#/Vol]Ordere d By: Bruno Avila on 05-10-2024 RBC (Bld) [#/Vol] 5.45 10*6/uL High 4.2-5.4 [facility] Serum creatinine measurement (mass/volume)Ordered By: Bruno Avila on 05-10-2024 Creatinine [Mass/Vol] 0.65 mg/dL Low 0.70-1.20 [facility] Serum glucose measurement (m ass/volume)Ordered By: Bruno Avila on 05-10-2024 Glucose [Mass/Vol] 114 mg/dL High 70-99 [facility] Serum or plasma anion gap de termination (moles/volume)Ordered By: Bruno Avila on 05-10-2024 Anion gap [Moles/Vol] 10 mmol/L 5-15 [facility] Serum or plasma calcium [place] urement (mass/volume)Ordered By: Bruno Avila on 05-10-2024 Calcium [Mass/Vol] 9.5 mg/dL 7.6-11.0 [facility] Serum or plasma potassium me asurementOrdered By: Bruno Avila on 05-10-2024 Potassium [Moles/Vol] 4.0 mmol/L 3.3-5.1 [facility] Serum or plasma sodium measu rement (moles/volume)Ordered By: [facility]24 Sodium [Moles/Vol] 137 mmol/L 133-145 [facility] Serum or plasma urea nitroge n measurement (mass/volume)Ordered By: Bruno [facility] 05-10-2024 Urea nitrogen [Mass/Vol] 9 mg/dL 4-19 [facility] White blood cell (WBC) count Ordered By: [facility] on 05-10-2024 WBC (Bld) [#/Vol] 7.2 10*3/uL 4.4-11.0 [facility] HIP, UNI W/ Pelvis 2-3 Views on 04-20-2024 HIP, UNI W/ Pelvis 2-3 Views [facility] Imaging Services [address] [place] [address] HIP, UNI W/ Pelvis 2-3 Views MR#: [id number] Acct: [id number] Name: ABI REYNA Rep #: [id number] : 1955 F 68 From: Bob amaro MD PCP: Dr. Ottoniel Page, DO Status: REG CLI Study: HIP, UNI W/ Pelvis 2-3 Views Date of Exam: 02/01 Exam# [id number] Ordering Dr: Daly Del Rio EXAM: HIP, [...] IMPRESSION: Degenerative changes as described. [facility] CC: Daly Del Rio; Dr. Ottoniel Page DO Pharmacy General Manager: Signed Normal [facility] L/S Spine Min 4 Viewson 04-10 L/S Spine Min 4 Views [facility] Imaging Services [address] [place], [place] [address] L/S Spine Min 4 Views MR#: [id number] Acct: [id number] Name: ABI REYNA Rep #: [id number] : 1955 F 68 From: Mitch Rogers PCP: Dr. Ottoniel Page DO Status: REG CLI Study: L/S Spine Min 4 Views Date of Exam: 04/20/24 Exam# [id number] Ordering Dr: Daly Del Rio PROCEDURE: L/S SPINE MIN 4 VIEWS REASON FOR EXAM: Pain. TECHNIQUE: 6 view lumbar spine series including bilateral oblique and lateral flexion and extension views. COMPARISON: None. RAD/L/S Spine Min 4 Views IMPRESSION: Right upper quadrant abdominal surgical clips are noted. Mild right and bfos-fx-kxpxdagp left sacroiliac joint degenerative changes are noted. No evidence of spondylolysis. Slight anterolisthesis of L4 upon L5 is noted. No dynamic instability is seen on lateral flexion and extension views. Bjcj-vb-gknifdti degenerative changes are seen throughout the lumbar spine, most prominent at the mid to lower lumbar posterior facets. Moderate disc narrowing is seen at L4-L5 and L5-S1 levels. No fracture site is evident. Reading Location: [id number] CC: Daly Del Rio; Dr. Ottoniel Page DO Pharmacy General Manager: Signed Normal [facility] CBC W/Diff, Automatedon 10-2 Absolute Lymph 1.50 X10 3/uL Normal 0.83-4.51 [facility] Comment on above: Performed By: #### L 100.0100 ####[facility] [address] [place], [address] Absolute Neut 4.4 X10 3/uL Normal 2.0-7.7 [facility] Comment on above: Performed By: #### L 100.0100 ####[facility] [address] [place], [address] Basophils/100 WBC (Bld) 1.0 % Normal 0-1 [facility] Comment on above: Performed By: #### L 100.0100 ####[facility] [address] [place], [address] Eosinophils/100 WBC (Bld) 4.1 % Normal 0-5 [facility] Comment on above: Performed By: #### L 100.0100 ####[facility] [address] [place], [address] Erythrocyte distribution width (RBC) [Ratio] 14.3 % Normal 11.6-14.6 [facility] Comment on above: Performed By: #### L 100.0100 ####[facility] [address] [place], [address] Hematocrit (Bld) [Volume fraction] 45.9 % Normal 37-47 [facility] Comment on above: Performed By: #### L 100.0100 ####[facility] [address] [place], [address] Hemoglobin (Bld) [Mass/Vol] 14.3 g/dL Normal 12.0-15.0 [facility] Comment on above: Performed By: #### L 100.0100 ####[facility] [address] [place], [address] IG% 0.300 Normal 0.0-0.9 [facility] Comment on above: Result Comment: IG% - Immature Granulocytes (promyelocytes, myelocytes and metamyelocytes) > 1% indicates that a LEFT SHIFT is Present. Performed By: #### L 100.0100 ####[facility] [address] [place], [address] Lymphocytes/100 WBC (Bld) 22.2 % Normal 19-41 [facility] Comment on above: Performed By: #### L 100.0100 ####[facility] [address] [place], [address] MCH (RBC) [Entitic mass] 26.7 pg Low 27.0-32.0 [facility] Comment on above: Performed By: #### L 100.0100 ####[facility] [address] [place], [address] MCHC (RBC) [Mass/Vol] 31.2 g/dL Low 32-36 [facility] Comment on above: Performed By: #### L 100.0100 ####[facility] [address] [place], [address] MCV (RBC) [Entitic vol] 85.8 fL Normal 81-99 [facility] Comment on above: Performed By: #### L 100.0100 ####[facility] [address] [place], [address] Monocytes/100 WBC (Bld) 7.6 % Normal 0-10 [facility] Comment on above: Performed By: #### L 100.0100 ####[facility] [address] [place], [address] Neutrophils/100 WBC (Bld) 64.8 % Normal 47-70 [facility] Comment on above: Performed By: #### L 100.0100 ####[facility] [address] [place], [address] Nucleated RBC (Bld) [#/Vol] 0 10*3/uL Normal 0-5 [facility] Comment on above: Performed By: #### L 100.0100 ####[facility] [address] [place], [address] Platelet mean volume (Bld) [Entitic vol] 11.8 fL Normal 6.2-12.0 [facility] Comment on above: Performed By: #### L 100.0100 ####[facility] [address] [place], [address] Platelets (Bld) [#/Vol] 218 10*3/uL Normal 150-450 [facility] Comment on above: Performed By: #### L 100.0100 ####[facility] [address] [place], [address] RBC (Bld) [#/Vol] 5.35 10*6/uL Normal 4.2-5.4 [facility] Comment on above: Performed By: #### L 100.0100 ####[facility] [address] [place], [address] RDW SD 43.8 fl Normal 35.1-43.9 [facility] Comment on above: Performed By: #### L 100.0100 ####[facility] [address] [place], [address] WBC (Bld) [#/Vol] 6.8 10*3/uL Normal 4.4-11.0 [facility] Comment on above: Performed By: #### L 100.0100 ####[facility] [address] [place], [address] HIP, UNI W/ Pelvis 2-3 Views on 01-05-2024 HIP, UNI W/ Pelvis 2-3 Views [facility] Imaging Services [address] [place] [address] HIP, UNI W/ Pelvis 2-3 Views MR#: [id number] Acct: [id number] Name: ABI REYNA Rep #: [id number] : 1955 F 68 From: Chavez Rogers PCP: Dr. Ottoniel Page, Status: REG RCR Study: HIP, UNI W/ Pelvis 2-3 Views Date of Exam: Exam# [id number] Ordering Dr: Daly Del Rio [id number] EXAM: XR LEFT HIP WITH PELVIS WHEN [...] , CC: Daly Del Rio; Dr. Ottoniel Page, Pharmacy General Manager: Signed Normal [facility] CBC W/Diff, Automatedon 08-2 0-2023 Absolute Lymph 1.63 X10 3/uL Normal 0.83-4.51 [facility] Comment on above: Performed By: #### L 100.0100 ####[facility] [address] [place], [address] Absolute Neut 4.2 X10 3/uL Normal 2.0-7.7 [facility] Comment on above: Performed By: #### L 100.0100 ####[facility] [address] [place], [address] Basophils/100 WBC (Bld) 1.1 % High 0-1 [facility] Comment on above: Performed By: #### L 100.0100 ####[facility] [address] [place], [address] Eosinophils/100 WBC (Bld) 3.2 % Normal 0-5 [facility] Comment on above: Performed By: #### L 100.0100 ####[facility] [address] [place], [address] Erythrocyte distribution width (RBC) [Ratio] 14.8 % High 11.6-14.6 [facility] Comment on above: Performed By: #### L 100.0100 ####[facility] [address] [place], [address] Hematocrit (Bld) [Volume fraction] 47.8 % High 37-47 [facility] Comment on above: Performed By: #### L 100.0100 ####[facility] [address] [place], [address] Hemoglobin (Bld) [Mass/Vol] 14.9 g/dL Normal 12.0-15.0 [facility] Comment on above: Performed By: #### L 100.0100 ####[facility] [address] [place], [address] IG% 0.300 Normal 0.0-0.9 [facility] Comment on above: Result Comment: IG% - Immature Granulocytes (promyelocytes, myelocytes and metamyelocytes) > 1% indicates that a LEFT SHIFT is Present. Performed By: #### L 100.0100 ####[facility] [address] [place], [address] Lymphocytes/100 WBC (Bld) 24.5 % Normal 19-41 [facility] Comment on above: Performed By: #### L 100.0100 ####[facility] [address] [place], [address] MCH (RBC) [Entitic mass] 25.9 pg Low 27.0-32.0 [facility] Comment on above: Performed By: #### L 100.0100 ####[facility] [address] [place], [address] MCHC (RBC) [Mass/Vol] 31.2 g/dL Low 32-36 [facility] Comment on above: Performed By: #### L 100.0100 ####[facility] [address] [place], [address] MCV (RBC) [Entitic vol] 83.1 fL Normal 81-99 [facility] Comment on above: Performed By: #### L 100.0100 ####[facility] [address] [place], [address] Monocytes/100 WBC (Bld) 7.5 % Normal 0-10 [facility] Comment on above: Performed By: #### L 100.0100 ####[facility] [address] [place], [address] Neutrophils/100 WBC (Bld) 63.4 % Normal 47-70 [facility] Comment on above: Performed By: #### L 100.0100 ####[facility] [address] [place], [address] Nucleated RBC (Bld) [#/Vol] 0 10*3/uL Normal 0-5 [facility] Comment on above: Performed By: #### L 100.0100 ####[facility] [address] [place], [address] Platelet mean volume (Bld) [Entitic vol] 11.5 fL Normal 6.2-12.0 [facility] Comment on above: Performed By: #### L 100.0100 ####[facility] [address] [place], [address] Platelets (Bld) [#/Vol] 262 10*3/uL Normal 150-450 [facility] Comment on above: Performed By: #### L 100.0100 ####[facility] [address] [place], [address] RBC (Bld) [#/Vol] 5.75 10*6/uL High 4.2-5.4 [facility] Comment on above: Performed By: #### L 100.0100 ####[facility] [address] [place], [address] RDW SD 44.1 fl High 35.1-43.9 [facility] Comment on above: Performed By: #### L 100.0100 ####[facility] [address] [place], [address] WBC (Bld) [#/Vol] 6.7 10*3/uL Normal 4.4-11.0 [facility] Comment on above: Performed By: #### L 100.0100 ####[facility] [address] [place], [address] Iron measurement (mass/mass) Ordered By: Facundo Kat on 07-05-2023 Iron (Unsp spec) [Mass/Mass] 55 ug/dL 50-170 [facility] Comment on above: Moderate Hemolysis, Result may be falsely increased. Laboratory - Chemistry and C hemistry - challengeOrdered By: Facundo Kat on 07-05-2023 Ferritin [Mass/Vol] 24 ng/mL 8-252 [facility] No Panel InformationOrdered By: Facundo Kat on 07-05-2023 C-Reactive Protein Extended Range 7.67 mg/L 0.0-3.0 [facility] Comment on above: C-Reactive Protein ( CRP) provides useful information for thediagnosis, therapy and monitoring of inflammatory processesand associated diseases. For the evaluation of Relative Riskfor Cardiovascular Disease, a High Sensitivity CRP (HSCRP)should be ordered. Total Iron Binding Capacity 486 ug/dL 250-450 [facility] Comment on above: Moderate Hemolysis, Result may be falsely increased. Serum or plasma iron saturat ion measurement (mass fraction)Ordered By: Facundo Kat on 07-05-2023 Iron saturation [Mass fraction] 11.3 % 15.0-55.0 [facility] Absolute lymphocyte countOrd ered By: Facundo Kat on 06-20-2023 Lymphocytes Auto (Unsp spec) [#/Vol] 2.04 10*3/uL 0.83-4.51 [facility] Automated lymphocyte count a s percentage of total leukocytesOrdered By: Facundo Kat on 06-20-2023 Lymphocytes/100 WBC Auto (Unsp spec) 25.3 % 19-41 [facility] Basophil percentageOrdered B y: Facundo Kat on 06-20-2023 Basophils/100 WBC (Bld) 1.6 % 0-1 [facility] Eosinophils/100 WBC (Bld) 3.2 % 0-5 [facility] Hemoglobin (Bld) [Mass/Vol] 12.6 g/dL 12.0-15.0 [facility] Monocytes/100 WBC (Bld) 8.1 % 0-10 [facility] Neutrophils (Bld) [#/Vol] 4.9 10*3/uL 2.0-7.7 [facility] Neutrophils/100 WBC (Bld) 61.4 % 47-70 [facility] WBC (Bld) [#/Vol] 8.1 10*3/uL 4.4-11.0 [facility] Blood manual differential co mment interpretation (narrative result)Ordered By: Facundo Kat on 06-20-2023 Manual differential comment Popeye (Bld) [Interp] SCANNED [facility] Comment on above: Please note: For thi [...] 06-20-2023 Platelets LM Ql (Bld) ADEQUATE ADEQ [facility] Determination of erythrocyte mean corpuscular volume (MCV)Ordered By: Facundo Kat on 06-20-2023 MCV (RBC) [Entitic vol] 75.5 fL 81-99 [facility] Erythrocyte distribution wid th ratioOrdered By: Facundo Kat on 06-20-2023 Erythrocyte distribution width (RBC) [Ratio] 15.9 % 11.6-14.6 [facility] Erythrocyte distribution wid th standard deviationOrdered By: Facundo Kat on 06-20-2023 Erythrocyte distribution width (RBC) [Entitic vol] 42.6 fL 35.1-43.9 [facility] Hematocrit Auto (Bld) [Volum e fraction]Ordered By: Facundo Kat on 06-20-2023 Hematocrit (Bld) [Volume fraction] 43.4 % 37-47 [facility] Immature granulocytes/100 WB C Auto (Bld)Ordered By: Facundo Kat on 06-20-2023 Immature granulocytes/100 WBC (Bld) 0.400 % 0.0-0.9 [facility] Comment on above: IG% - Immature Granu locytes (promyelocytes, myelocytes and metamyelocytes) > 1% indicates that a LEFT SHIFT is Present. Laboratory - Hematology and Cell countsOrdered By: Facundo Kat on 06-20-2023 MCH (RBC) [Entitic mass] 21.9 pg 27.0-32.0 [facility] MCHC (RBC) [Mass/Vol] 29.0 g/dL 32-36 [facility] Nucleated RBC/100 WBC (Bld) [Ratio] 0 % 0-5 [facility] Platelet mean volume (Bld) [Entitic vol] 11.9 fL 6.2-12.0 [facility] No Panel InformationOrdered By: Facundo Kat on 06-20-2023 Platelet Count TNP [facility] Comment on above: Test not performedPl ease note: For this sample, a platelet estimate is provided rather than a platelet count due to platelet clumping. Other parameters associated with this sample are not affected by platelet clumping. If a more accurate platelet count is required, a redraw of the patient will be necessary.Previous reported result: [id number] by: CHRISTIN on 06/20/23:1817 AMENDED REPORT 06/20/231817 PLT previously reported as: [id number] K/mm3 RBC Auto (Bld) [#/Vol]Ordere d By: Facundo Kat on 06-20-2023 RBC (Bld) [#/Vol] 5.75 10*6/uL 4.2-5.4 [facility] Absolute lymphocyte countOrd ered By: Ottoniel Page on 11-22-2022 Lymphocytes Auto (Unsp spec) [#/Vol] 1.60 10*3/uL 0.83-4.51 [facility] Basophil percentageOrdered B y: Ottoniel Page on 11-22-2022 Basophils/100 WBC (Bld) 1.2 % 0-1 [facility] Bilirubin [Mass/Vol] 0.50 mg/dL 0.20-1.00 [facility] Comment on above: For patients on eltr ombopag therapy, use of Dimension [place] TBIL is not recommended. Chloride [Moles/Vol] 101 mmol/L 98-107 [facility] Eosinophils/100 WBC (Bld) 1.9 % 0-5 [facility] Glucose [Mass/Vol] 110 mg/dL 74-106 [facility] Comment on above: Fasting Glucose resu lt from 100 to 125 mg/dL suggests IMPAIRED HOMEOSTASIS per A.D.A. criteria. Neutrophils (Bld) [#/Vol] 4.4 10*3/uL 2.0-7.7 [facility] Neutrophils/100 WBC (Bld) 64.6 % 47-70 [facility] Potassium [Moles/Vol] 3.3 mmol/L 3.5-5.1 [facility] Protein [Mass/Vol] 7.2 g/dL 6.4-8.2 [facility] Sodium [Moles/Vol] 139 mmol/L 136-145 [facility] WBC (Bld) [#/Vol] 6.8 10*3/uL 4.4-11.0 [facility] Blood erythrocytes count (nu mber/volume)Ordered By: Ottoniel Page on 11-22-2022 RBC (Bld) [#/Vol] 5.74 10*6/uL 4.2-5.4 [facility] Blood hemoglobin measurement (mass/volume)Ordered By: Ottoniel Page on 11-22-2022 Hemoglobin (Bld) [Mass/Vol] 13.5 g/dL 12.0-15.0 [facility] Blood lymphocytes/100 leukoc ytesOrdered By: Ottoniel Page on 11-22-2022 Lymphocytes/100 WBC (Bld) 23.4 % 19-41 [facility] Blood monocytes/100 leukocyt esOrdered By: Ottoniel Page on 11-22-2022 Monocytes/100 WBC (Bld) 8.5 % 0-10 [facility] Blood platelet mean volumeOr dered By: Ottoniel Page on 11-22-2022 Platelet mean volume (Bld) [Entitic vol] 11.6 fL 6.2-12.0 [facility] Determination of erythrocyte mean corpuscular volume (MCV)Ordered By: Ottoniel Page on 11-22-2022 MCV (RBC) [Entitic vol] 80.3 fL 81-99 [facility] Hematocrit Auto (Bld) [Volum e fraction]Ordered By: Ottoniel Page on 11-22-2022 Hematocrit (Bld) [Volume fraction] 46.1 % 37-47 [facility] Laboratory - Chemistry and C hemistry - challengeOrdered By: Ottoniel Page on 11-22-2022 ALP [Catalytic activity/Vol] 61 U/L 45-117 [facility] ALT [Catalytic activity/Vol] 49 U/L 13-56 [facility] CO2 [Moles/Vol] 33.0 mmol/L 21.0-32.0 [facility] Globulin (S) [Mass/Vol] 3.9 g/dL 2.2-4.2 [facility] Urea nitrogen/Creatinine [Mass ratio] 15.9 mg/mg 10-20 [facility] Laboratory - Hematology and Cell countsOrdered By: Ottoniel Page on 11-22-2022 Erythrocyte distribution width (RBC) [Entitic vol] 46.4 fL 35.1-43.9 [facility] Erythrocyte distribution width (RBC) [Ratio] 16.1 % 11.6-14.6 [facility] Immature granulocytes/100 WBC (Bld) 0.400 % 0.0-0.9 [facility] Comment on above: IG% - Immature Granu locytes (promyelocytes, myelocytes and metamyelocytes) > 1% indicates that a LEFT SHIFT is Present. MCH (RBC) [Entitic mass] 23.5 pg 27.0-32.0 [facility] Nucleated RBC/100 WBC (Bld) [Ratio] 0 % 0-5 [facility] MCHC Auto (RBC) [Mass/Vol]Or dered By: Ottoniel Page on 11-22-2022 MCHC (RBC) [Mass/Vol] 29.3 g/dL 32-36 [facility] No Panel InformationOrdered By: Ottoniel Page on 11-22-2022 Estimated GFR (MDRD) Amer 109 mL/min >60 [facility] Comment on above: GFR Calc Estimated GFR (MDRD) Non-Af Amer 90 mL/min >60 [facility] Comment on above: Non- GFR Calc Thyroid Stimulating Hormone (TSH) 2.11 uIU/mL 0.358-3.74 [facility] Platelets bldOrdered By: Mckenzie Page on 11-22-2022 Platelets (Bld) [#/Vol] 297 10*3/uL 150-450 [facility] Serum or plasma albumin [place] urement (mass/volume)Ordered By: Ottoniel Page on 11-22-2022 Albumin [Mass/Vol] 3.3 g/dL 3.2-5.0 [facility] Serum or plasma albumin/glob ulin mass ratioOrdered By: Ottoniel Page on 11-22-2022 Albumin/Globulin [Mass ratio] 0.8 {ratio} 0.9-2.4 [facility] Serum or plasma calcium [place] urement (mass/volume)Ordered By: Ottoniel Page on 11-22-2022 Calcium [Mass/Vol] 9.1 mg/dL 8.5-10.1 [facility] Serum or plasma creatinine m easurement (mass/volume)Ordered By: Ottoniel Page on 11-22-2022 Creatinine [Mass/Vol] 0.69 mg/dL 0.55-1.02 [facility] Comment on above: The validity of the calculated GFR & GFRAA in patients over 70 years has not been determined. Clinical correlation is essential. Serum or plasma urea nitroge n measurement (mass/volume)Ordered By: Ottoniel Page on 09-15-2023 Urea nitrogen [Mass/Vol] 11 mg/dL 7-18 [facility] Thin prep Papanicolaou smear with manual screeningOrdered By: Ottoniel Page on 11-22-2022 Thin prep Papanicolaou smear with manual screening 36 U/L 15-37 [facility] Thin prep Papanicolaou smear with manual screening 5 5-15 [facility] Absolute lymphocyte countOrd ered By: Fiorella Vidal on 09-20-2022 Lymphocytes Auto (Unsp spec) [#/Vol] 1.49 10*3/uL 0.83-4.51 [facility] Basophil percentageOrdered B y: Fiorella Vidal on 09-20-2022 Basophils/100 WBC (Bld) 1.5 % 0-1 [facility] Chloride [Moles/Vol] 103 mmol/L 98-107 [facility] Eosinophils/100 WBC (Bld) 3.3 % 0-5 [facility] Glucose [Mass/Vol] 114 mg/dL 74-106 [facility] Comment on above: Fasting Glucose resu lt from 100 to 125 mg/dL suggests IMPAIRED HOMEOSTASIS per A.D.A. criteria. Neutrophils (Bld) [#/Vol] 3.3 10*3/uL 2.0-7.7 [facility] Neutrophils/100 WBC (Bld) 59.1 % 47-70 [facility] Potassium [Moles/Vol] 4.1 mmol/L 3.5-5.1 [facility] Sodium [Moles/Vol] 138 mmol/L 136-145 [facility] WBC (Bld) [#/Vol] 5.5 10*3/uL 4.4-11.0 [facility] Blood erythrocytes count (nu mber/volume)Ordered By: Fiorella Vidal on 09-20-2022 RBC (Bld) [#/Vol] 5.46 10*6/uL 4.2-5.4 [facility] Blood hemoglobin measurement (mass/volume)Ordered By: Fiorella Vidal on 09-20-2022 Hemoglobin (Bld) [Mass/Vol] 13.0 g/dL 12.0-15.0 [facility] Blood lymphocytes/100 leukoc ytesOrdered By: Fiorella Vidal on 09-20-2022 Lymphocytes/100 WBC (Bld) 27.0 % 19-41 [facility] Blood monocytes/100 leukocyt esOrdered By: Fiorella Vidal on 09-20-2022 Monocytes/100 WBC (Bld) 8.9 % 0-10 [facility] Blood platelet mean volumeOr dered By: Fiorella Vidal on 09-20-2022 Platelet mean volume (Bld) [Entitic vol] 11.4 fL 6.2-12.0 [facility] Determination of erythrocyte mean corpuscular volume (MCV)Ordered By: Fiorella Vidal on 09-20-2022 MCV (RBC) [Entitic vol] 79.5 fL 81-99 [facility] Hematocrit Auto (Bld) [Volum e fraction]Ordered By: Fiorella Vidal on 09-20-2022 Hematocrit (Bld) [Volume fraction] 43.4 % 37-47 [facility] Laboratory - Chemistry and C hemistry - challengeOrdered By: Fiorella Vidal on 09-20-2022 CO2 [Moles/Vol] 32.0 mmol/L 21.0-32.0 [facility] Urea nitrogen/Creatinine [Mass ratio] 16.4 mg/mg 10-20 [facility] Laboratory - Hematology and Cell countsOrdered By: Fiorella Vidal on 09-20-2022 Erythrocyte distribution width (RBC) [Entitic vol] 44.6 fL 35.1-43.9 [facility] Erythrocyte distribution width (RBC) [Ratio] 15.7 % 11.6-14.6 [facility] Immature granulocytes/100 WBC (Bld) 0.200 % 0.0-0.9 [facility] Comment on above: IG% - Immature Granu locytes (promyelocytes, myelocytes and metamyelocytes) > 1% indicates that a LEFT SHIFT is Present. MCH (RBC) [Entitic mass] 23.8 pg 27.0-32.0 [facility] Nucleated RBC/100 WBC (Bld) [Ratio] 0 % 0-5 [facility] MCHC Auto (RBC) [Mass/Vol]Or dered By: Fiorella Vidal on 09-20-2022 MCHC (RBC) [Mass/Vol] 30.0 g/dL 32-36 [facility] No Panel InformationOrdered By: Fiorella Vidal on 09-20-2022 Estimated GFR (MDRD) Amer 93 mL/min >60 [facility] Comment on above: GFR Calc Estimated GFR (MDRD) Non-Af Amer 77 mL/min >60 [facility] Comment on above: Non- GFR Calc Platelets bldOrdered By: Anat Vidal on 09-20-2022 Platelets (Bld) [#/Vol] 252 10*3/uL 150-450 [facility] Serum or plasma calcium [place] urement (mass/volume)Ordered By: Fiorella Vidal on 09-20-2022 Calcium [Mass/Vol] 9.0 mg/dL 8.5-10.1 [facility] Serum or plasma creatinine m easurement (mass/volume)Ordered By: Fiorella Vidal on 09-20-2022 Creatinine [Mass/Vol] 0.79 mg/dL 0.55-1.02 [facility] Comment on above: The validity of the calculated GFR & GFRAA in patients over 70 years has not been determined. Clinical correlation is essential. Serum or plasma urea nitroge n measurement (mass/volume)Ordered By: Fiorella Vidal on 09-20-2022 Urea nitrogen [Mass/Vol] 13 mg/dL 7-18 [facility] Thin prep Papanicolaou smear with manual screeningOrdered By: Fiorella Vidal on 09-20-2022 Thin prep Papanicolaou smear with manual screening 3 5-15 [facility] Absolute lymphocyte countOrd ered By: Dr. Vinson on 04-22-2022 Lymphocytes Auto (Unsp spec) [#/Vol] 2.15 10*3/uL 0.83-4.51 [facility] Basophil percentageOrdered B y: Dr. Vinson on 04-22-2022 Basophils/100 WBC (Bld) 0.8 % 0-1 [facility] Eosinophils/100 WBC (Bld) 0.9 % 0-5 [facility] Neutrophils (Bld) [#/Vol] 7.2 10*3/uL 2.0-7.7 [facility] Neutrophils/100 WBC (Bld) 69.6 % 47-70 [facility] WBC (Bld) [#/Vol] 10.3 10*3/uL 4.4-11.0 [facility] Blood erythrocytes count (nu mber/volume)Ordered By: Dr. Vinson on 04-22-2022 RBC (Bld) [#/Vol] 5.97 10*6/uL 4.2-5.4 [facility] Blood hemoglobin measurement (mass/volume)Ordered By: Dr. Vinson on 04-22-2022 Hemoglobin (Bld) [Mass/Vol] 14.8 g/dL 12.0-15.0 [facility] Blood lymphocytes/100 leukoc ytesOrdered By: Dr. Vinson on 04-22-2022 Lymphocytes/100 WBC (Bld) 20.9 % 19-41 [facility] Blood monocytes/100 leukocyt esOrdered By: Dr. Vinson on 04-22-2022 Monocytes/100 WBC (Bld) 7.5 % 0-10 [facility] Blood platelet mean volumeOr dered By: Dr. Vinson on 04-22-2022 Platelet mean volume (Bld) [Entitic vol] 10.9 fL 6.2-12.0 [facility] Determination of erythrocyte mean corpuscular volume (MCV)Ordered By: Dr. Vinson on 04-22-2022 MCV (RBC) [Entitic vol] 79.4 fL 81-99 [facility] Hematocrit Auto (Bld) [Volum e fraction]Ordered By: Dr. Vinson on 04-22-2022 Hematocrit (Bld) [Volume fraction] 47.4 % 37-47 [facility] Laboratory - Hematology and Cell countsOrdered By: Dr. Vinson on 04-22-2022 Erythrocyte distribution width (RBC) [Entitic vol] 40.9 fL 35.1-43.9 [facility] Erythrocyte distribution width (RBC) [Ratio] 14.2 % 11.6-14.6 [facility] Immature granulocytes/100 WBC (Bld) 0.300 % 0.0-0.9 [facility] Comment on above: IG% - Immature Granu locytes (promyelocytes, myelocytes and metamyelocytes) > 1% indicates that a LEFT SHIFT is Present. MCH (RBC) [Entitic mass] 24.8 pg 27.0-32.0 [facility] Nucleated RBC/100 WBC (Bld) [Ratio] 0 % 0-5 [facility] MCHC Auto (RBC) [Mass/Vol]Or dered By: Dr. Vinson on 04-22-2022 MCHC (RBC) [Mass/Vol] 31.2 g/dL 32-36 [facility] No Panel InformationOrdered By: Dr. Vinson on 04-22-2022 Follicle Stimulating Hormone 29.7 mIU/mL [facility] Comment on above: NORMAL REFERENCE RAN GES FEMALE FOLLICULAR 2.3 - 12.6 mIU/mL MID-CYCLE PEAK 5.2 - 17.5 mIU/mL LUTEAL 1.7 - 12.9 mIU/mL POST-MENOPAUSAL ON MHT 5.9 - 72.8 mIU/mL NOT ON MHT 12.7 - 132.2 mlU/mL MALE 0.7 - 10.8 mIU/mL Luteinizing Hormone 18.3 mIU/mL [facility] Comment on above: NORMAL REFERENCE RAN [facility] FEMALE FOLLICULAR 1.9 - 26.2 mIU/mL MID-CYCLE PEAK 22.8 - 76.1 mIU/mL LUTEAL 0.6 - 16.6 mIU/mL POST-MENOPAUSAL ON MHT 1.1 - 52.4 mIU/mL NOT ON MHT 8.6 - 61.8 mIU/mL MALE 1.2 - 10.6 mIU/mL Thyroid Stimulating Hormone (TSH) 3.24 uIU/mL 0.358-3.74 [facility] Platelets bldOrdered By: Dr. Vinson on 04-22-2022 Platelets (Bld) [#/Vol] 278 10*3/uL 150-450 [facility] Serum or plasma estradiol (E 2) measurement (mass/volume)Ordered By: Dr. Vinson on 04-22-2022 E2 [Mass/Vol] pg/mL [facility] Comment on above: NORMAL REFERENCE RAN GES [...] on 04-22-2022 Progesterone [Mass/Vol] ng/mL See Comment [facility] Comment on above: Progesterone Referen ce Table: [...] Auto (Unsp spec) [#/Vol] 1.85 10*3/uL 0.83-4.51 [facility] Basophil percentageOrdered B y: Dr. Kat on 03-21-2022 Basophils/100 WBC (Bld) 1.7 % 0-1 [facility] Eosinophils/100 WBC (Bld) 3.3 % 0-5 [facility] Neutrophils (Bld) [#/Vol] 3.3 10*3/uL 2.0-7.7 [facility] Neutrophils/100 WBC (Bld) 55.2 % 47-70 [facility] WBC (Bld) [#/Vol] 6.0 10*3/uL 4.4-11.0 [facility] Blood erythrocytes count (nu mber/volume)Ordered By: Dr. Kat on 03-21-2022 RBC (Bld) [#/Vol] 5.41 10*6/uL 4.2-5.4 [facility] Blood hemoglobin measurement (mass/volume)Ordered By: Dr. Kat on 03-21-2022 Hemoglobin (Bld) [Mass/Vol] 13.3 g/dL 12.0-15.0 [facility] Blood lymphocytes/100 leukoc ytesOrdered By: Dr. Kat on 03-21-2022 Lymphocytes/100 WBC (Bld) 30.9 % 19-41 [facility] Blood monocytes/100 leukocyt esOrdered By: Dr. Kat on 03-21-2022 Monocytes/100 WBC (Bld) 8.7 % 0-10 [facility] Blood platelet mean volumeOr dered By: Dr. Kat on 03-21-2022 Platelet mean volume (Bld) [Entitic vol] 11.9 fL 6.2-12.0 [facility] Determination of erythrocyte mean corpuscular volume (MCV)Ordered By: Dr. Kat on 03-21-2022 MCV (RBC) [Entitic vol] 81.3 fL 81-99 [facility] Hematocrit Auto (Bld) [Volum e fraction]Ordered By: Dr. Kat on 03-21-2022 Hematocrit (Bld) [Volume fraction] 44.0 % 37-47 [facility] Laboratory - Hematology and Cell countsOrdered By: Dr. Kat on 03-21-2022 Erythrocyte distribution width (RBC) [Entitic vol] 41.1 fL 35.1-43.9 [facility] Erythrocyte distribution width (RBC) [Ratio] 14.1 % 11.6-14.6 [facility] Immature granulocytes/100 WBC (Bld) 0.200 % 0.0-0.9 [facility] Comment on above: IG% - Immature Granu locytes (promyelocytes, myelocytes and metamyelocytes) > 1% indicates that a LEFT SHIFT is Present. MCH (RBC) [Entitic mass] 24.6 pg 27.0-32.0 [facility] Nucleated RBC/100 WBC (Bld) [Ratio] 0 % 0-5 [facility] MCHC Auto (RBC) [Mass/Vol]Or dered By: Dr. Kat on 03-21-2022 MCHC (RBC) [Mass/Vol] 30.2 g/dL 32-36 [facility] Platelets bldOrdered By: Dr. Kat on 03-21-2022 Platelets (Bld) [#/Vol] 250 10*3/uL 150-450 [facility] Absolute lymphocyte countOrd ered By: Makeda Hermosillo on 01-02-2022 Lymphocytes Auto (Unsp spec) [#/Vol] 1.81 10*3/uL 0.83-4.51 [facility] Basophil percentageOrdered B y: Makeda Hermosillo on 01-02-2022 Basophils/100 WBC (Bld) 1.0 % 0-1 [facility] Chloride [Moles/Vol] 99 mmol/L 98-107 [facility] Eosinophils/100 WBC (Bld) 2.7 % 0-5 [facility] Glucose [Mass/Vol] 165 mg/dL 74-106 [facility] Comment on above: Fasting Glucose resu lt greater than or equal to 126 mg/dL suggests DIABETES MELLITUS per A.D.A. criteria. Neutrophils (Bld) [#/Vol] 4.9 10*3/uL 2.0-7.7 [facility] Neutrophils/100 WBC (Bld) 64.7 % 47-70 [facility] Potassium [Moles/Vol] 3.3 mmol/L 3.5-5.1 [facility] Comment on above: Slight Hemolysis, Re sult may be falsely increased. Sodium [Moles/Vol] 137 mmol/L 136-145 [facility] WBC (Bld) [#/Vol] 7.6 10*3/uL 4.4-11.0 [facility] Blood erythrocytes count (nu mber/volume)Ordered By: Makeda Hermosillo on 01-02-2022 RBC (Bld) [#/Vol] 5.37 10*6/uL 4.2-5.4 [facility] Blood hemoglobin measurement (mass/volume)Ordered By: Makeda Hermosillo on 01-02-2022 Hemoglobin (Bld) [Mass/Vol] 14.1 g/dL 12.0-15.0 [facility] Blood lymphocytes/100 leukoc ytesOrdered By: Makeda Hermosillo on 01-02-2022 Lymphocytes/100 WBC (Bld) 23.7 % 19-41 [facility] Blood monocytes/100 leukocyt esOrdered By: Makeda Hermosillo on 01-02-2022 Monocytes/100 WBC (Bld) 7.5 % 0-10 [facility] Blood platelet mean volumeOr dered By: Makeda Hermosillo on 01-02-2022 Platelet mean volume (Bld) [Entitic vol] 11.2 fL 6.2-12.0 [facility] Determination of erythrocyte mean corpuscular volume (MCV)Ordered By: Makeda Hermosillo on 01-02-2022 MCV (RBC) [Entitic vol] 82.1 fL 81-99 [facility] Hematocrit Auto (Bld) [Volum e fraction]Ordered By: Makeda Hermosillo on 01-02-2022 Hematocrit (Bld) [Volume fraction] 44.1 % 37-47 [facility] Laboratory - Chemistry and C hemistry - challengeOrdered By: Makeda Hermosillo on 01-02-2022 CO2 [Moles/Vol] 34.0 mmol/L 21.0-32.0 [facility] Urea nitrogen/Creatinine [Mass ratio] 21.7 mg/mg 10-20 [facility] Laboratory - Hematology and Cell countsOrdered By: Makeda Hermosillo on 01-02-2022 Erythrocyte distribution width (RBC) [Entitic vol] 43.2 fL 35.1-43.9 [facility] Erythrocyte distribution width (RBC) [Ratio] 14.4 % 11.6-14.6 [facility] Immature granulocytes/100 WBC (Bld) 0.400 % 0.0-0.9 [facility] Comment on above: IG% - Immature Granu locytes (promyelocytes, myelocytes and metamyelocytes) > 1% indicates that a LEFT SHIFT is Present. MCH (RBC) [Entitic mass] 26.3 pg 27.0-32.0 [facility] Nucleated RBC/100 WBC (Bld) [Ratio] 0 % 0-5 [facility] MCHC Auto (RBC) [Mass/Vol]Or dered By: Makeda Hermosillo on 01-02-2022 MCHC (RBC) [Mass/Vol] 32.0 g/dL 32-36 [facility] No Panel InformationOrdered By: Makeda Hermosillo on 01-02-2022 Estimated GFR (MDRD) Amer 101 mL/min >60 [facility] Comment on above: GFR Calc Estimated GFR (MDRD) Non-Af Amer 83 mL/min >60 [facility] Comment on above: Non- GFR Calc Platelets bldOrdered By: Kim Hermosillo on 01-02-2022 Platelets (Bld) [#/Vol] 255 10*3/uL 150-450 [facility] Serum or plasma calcium [place] urement (mass/volume)Ordered By: Makeda Hermosillo on 01-02-2022 Calcium [Mass/Vol] 9.1 mg/dL 8.5-10.1 [facility] Serum or plasma creatinine m easurement (mass/volume)Ordered By: Makeda Hermosillo on 01-02-2022 Creatinine [Mass/Vol] 0.74 mg/dL 0.55-1.02 [facility] Comment on above: The validity of the calculated GFR & GFRAA in patients over 70 years has not been determined. Clinical correlation is essential. Serum or plasma urea nitroge n measurement (mass/volume)Ordered By: Makeda Hermosillo on 01-02-2022 Urea nitrogen [Mass/Vol] 16 mg/dL 7-18 [facility] Thin prep Papanicolaou smear with manual screeningOrdered By: Makeda Hermosillo on 01-02-2022 Thin prep Papanicolaou smear with manual screening 4 5-15 [facility] Basophil percentageon 2021 Basophil percentage < 0.9 mg/dL 0.55-1.02 [facility] Work Phone: No Panel Informationon 09-14 Bedside Estimated GFR (eGFR) > 60.0000 mL/min >60 [facility] Work Phone: No Panel Informationon 08-15 Miscellaneous Test See comment [facility] Work Phone: Comment on above: Scanned image report available in EMR No Panel Informationon 08-08 Stool Calprotectin 199 ug/g 0-120 [facility] Work Phone: Comment on above: Concentration Interp retation Follow-Up<16 - 50 ug/g Normal None>50 -120 ug/g Borderline Re-evaluate in 4-6 weeks >120 ug/g Abnormal Repeat as clinically indicatedPerformed at: BN - [facility] [address] [id number] Director: Medardo Garcia MD, Phone: [phone] Absolute lymphocyte counton 08-02-2021 Lymphocytes Auto (Unsp spec) [#/Vol] 1.50 10*3/uL 0.83-4.51 [facility] Work Phone: Basophil percentageon 2021 Basophils/100 WBC (Bld) 1.4 % 0-1 [facility] Work Phone: Eosinophils/100 WBC (Bld) 4.1 % 0-5 [facility] Work Phone: Neutrophils (Bld) [#/Vol] 3.5 10*3/uL 2.0-7.7 [facility] Work Phone: Neutrophils/100 WBC (Bld) 58.9 % 47-70 [facility] Work Phone: [phone] WBC (Bld) [#/Vol] 5.9 10*3/uL 4.4-11.0 [facility] Work Phone: Blood erythrocytes count (nu mber/volume)on 08-02-2021 RBC (Bld) [#/Vol] 5.45 10*6/uL 4.2-5.4 [facility] Work Phone: [phone] Blood hemoglobin measurement (mass/volume)on 08-02-2021 Hemoglobin (Bld) [Mass/Vol] 13.7 g/dL 12.0-15.0 [facility] Work Phone: Blood lymphocytes/100 leukoc yteson 08-02-2021 Lymphocytes/100 WBC (Bld) 25.5 % 19-41 [facility] Work Phone: [phone] Blood monocytes/100 leukocyt eson 08-02-2021 Monocytes/100 WBC (Bld) 9.8 % 0-10 [facility] Work Phone: [phone] Blood platelet mean volumeon 08-02-2021 Platelet mean volume (Bld) [Entitic vol] 12.6 fL 6.2-12.0 [facility] Work Phone: Determination of erythrocyte mean corpuscular volume (MCV)on 08-02-2021 MCV (RBC) [Entitic vol] 81.5 fL 81-99 [facility] Work Phone: Hematocrit Auto (Bld) [Volum e fraction]on 08-02-2021 Hematocrit (Bld) [Volume fraction] 44.4 % 37-47 [facility] Work Phone: Laboratory - Hematology and Cell countson 08-02-2021 Erythrocyte distribution width (RBC) [Entitic vol] 42.5 fL 35.1-43.9 [facility] Work Phone: [phone] Erythrocyte distribution width (RBC) [Ratio] 14.5 % 11.6-14.6 [facility] Work Phone: Immature granulocytes/100 WBC (Bld) 0.300 % 0.0-0.9 [facility] Work Phone: [phone] Comment on above: IG% - Immature Granu locytes (promyelocytes, myelocytes and metamyelocytes) > 1% indicates that a LEFT SHIFT is Present. MCH (RBC) [Entitic mass] 25.1 pg 27.0-32.0 [facility] Work Phone: [phone] Nucleated RBC/100 WBC (Bld) [Ratio] 0 % 0-5 [facility] Work Phone: [phone] MCHC Auto (RBC) [Mass/Vol]on 08-02-2021 MCHC (RBC) [Mass/Vol] 30.9 g/dL 32-36 [facility] Work Phone: [phone] Platelets bldon 08-02-2021 Platelets (Bld) [#/Vol] 232 10*3/uL 150-450 [facility] Work Phone: Serum or plasma C reactive p rotein measurement (mass/volume)on 08-02-2021 CRP [Mass/Vol] 11.90 mg/L 0.0-3.0 [facility] Work Phone: Comment on above: C-Reactive Protein ( CRP) provides useful information for thediagnosis, therapy and monitoring of inflammatory processesand associated diseases. For the evaluation of Relative Riskfor Cardiovascular Disease, a High Sensitivity CRP (HSCRP)should be ordered. Final Surgical Pathology Rep [facility] 06-13-2021 Final Surgical Pathology Report . Pathology Reports Accession: Collected Date/Time: Received Date/Time: Pathologist: [id number] 06/11/2021 12:41 EDT 06/11/2021 14:28 EDT TANIYA HOLMAN MD Final Surgical Pathology Report DIAGNOSIS: A) [...] in diameter and 4.5 cm in length Endometrium-triangular- shaped endometrial cavity measuring 2 x 3 cm. Endometrium lining measur ing 0.1 cm [id number] measuring up to 1.8 cm with no [...] Reports Accession: Collected Date/Time: Received Date/Time: Pathologist: [id number] 06/11/2021 12:41 EDT 06/11/2021 14:28 EDT TANIYA HOLMAN MD Electronically Signed by Pathology Report verified by [facility] Electronically signed by TANIYA HOLMAN Sign out Date: 06/13/2021 14:26 Performing Lab: [facility], [address] [place] [id number] [facility] Normal [facility] ([place]) ABO/Rh (Gel)on 06-11-2021 ABO/Rh Interp Positive Invalid Interpretation Code [facility] ([place]) Comment on above: Performed By: #### A AAKASH GRANGER #### [address] [address] ABS (Gel)on 06-11-2021 ABSC Interp (Gel) Negative Normal [facility] ([place]) Comment on above: Performed By: #### A AAKASH GRANGER #### [address] [address] LABORATORYOrdered By: Mitch Flores on 06-11-2021 ABO and Rh group Nom (Bld) Blood group A Rh(D) positive Invalid Interpretation Code AH BB Auto SS Blood group antibody screen Ql NEG (06/11/21 8:30 AM) Invalid Interpretation Code AH BB Auto SS XR CHEST 2 VIEWSon XR CHEST 2 VIEWS ORIGINAL EXAMINATION: TWO [...] 05/29/2021 2:15:07 PM Ordering Provider: BREANNE RICHARDSON [facility] ([place]) .Auto Diffon 05-28-2021 Basophil, Absolute 0.10 10 3/mcL Normal 0.00-0.27 [facility] ([place]) Comment on above: Performed By: #### A BOGEL, ABSGEL, ANEU, CBC, GFR, ADIFF, CMP #### [address] [address] Basophils/100 WBC (Bld) 1.5 % Normal 0.0-2.5 A [facility] ([place]) Comment on above: Performed By: #### A BOGEL, ABSGEL, ANEU, CBC, GFR, ADIFF, CMP #### [address] [address] Eosinophil, Absolute 0.20 10 3/mcL Normal 0.00-0.65 A [facility] ([place]) Comment on above: Performed By: #### A BOGEL, ABSGEL, ANEU, CBC, GFR, ADIFF, CMP #### [address] [address] Eosinophils/100 WBC (Bld) 3.4 % Normal 0.0-6.0 [facility] ([place] Comment on above: Performed By: #### A BOGEL, ABSGEL, ANEU, CBC, GFR, ADIFF, CMP #### [address] [address] Lymphocyte, Absolute 1.30 10 3/mcL Normal 0.90-4.32 A [facility] ([place] Comment on above: Performed By: #### A BOGEL, ABSGEL, ANEU, CBC, GFR, ADIFF, CMP #### [address] [address] Lymphocytes/100 WBC (Bld) 20.6 % Normal 20.0-40.0 [facility] ([place] Comment on above: Performed By: #### A BOGEL, ABSGEL, ANEU, CBC, GFR, ADIFF, CMP #### [address] [address] Monocyte, Absolute 0.60 10 3/mcL Normal 0.09-1.40 [facility] ([place] Comment on above: Performed By: #### A BOGEL, ABSGEL, ANEU, CBC, GFR, ADIFF, CMP #### [address] [address] Monocytes/100 WBC (Bld) 8.8 % Normal 2.0-13.0 A [facility] ([place] Comment on above: Performed By: #### A AAKASH GRANGER, ANEU, CBC, GFR, ADIFF, CMP #### [address] [address] Neutrophils/100 WBC (Bld) 65.7 % Normal 50.0-75.0 [facility] ([place] Comment on above: Performed By: #### A ELKIN ABSNI, ANEU, CBC, GFR, ADIFF, CMP #### [address] [address] .GFRon 05-28-2021 GFR >60 Normal [facility] ([place]) Comment on above: Result Comment: GFR Population [...] mL/min/1.73 square meters Performed By: #### A ELKIN ABSGEL, ANEU, CBC, GFR, ADIFF, CMP #### [address] [address] GFR Non- >60 Normal [facility] ([place] Comment on above: Result Comment: GFR Population [...] mL/min/1.73 square meters Performed By: #### A ELKIN ABSGEL, ANEU, CBC, GFR, ADIFF, CMP #### [address] [address] .NEUABSon 05-28-2021 Neutrophil, Absolute 4.20 10 3/mcL Normal 2.25-8.10 A [facility] ([place] Comment on above: Performed By: #### A ELKIN ABSGEL, ANEU, CBC, GFR, ADIFF, CMP #### [place] [address] ABO/Rh (Gel)on 05-28-2021 ABO/Rh Interp Positive Invalid Interpretation Code [facility] ([place] Comment on above: Performed By: #### A ELKIN ABSGEL, ANEU, CBC, GFR, ADIFF, CMP #### [place] [id number] ABS (Gel)on 05-28-2021 ABSC Interp (Gel) Negative Normal [facility] ([place] Comment on above: Performed By: #### A ELKIN ABSGEL, ANEU, CBC, GFR, ADIFF, CMP #### [place] [address] CBCon 05-28-2021 Erythrocyte distribution width (RBC) [Ratio] 15.9 % High 11.5-15.5 [facility] ([place] Comment on above: Performed By: #### A ELKIN ABSGEL, ANEU, CBC, GFR, ADIFF, CMP #### [place] [address] Hematocrit (Bld) [Volume fraction] 44.5 % Normal 34.0-46.0 [facility] ([place] Comment on above: Performed By: #### A ELKIN ABSGEL, ANEU, CBC, GFR, ADIFF, CMP #### [place] [id number] Hgb 14.5 G/dL Normal 12.0-16.0 [facility] ([place] Comment on above: Performed By: #### A BOGEL, ABSGEL, ANEU, CBC, GFR, ADIFF, CMP #### [place] [id number] MCH (RBC) [Entitic mass] 25.8 pg Low 27.0-33.0 [facility] ([place] Comment on above: Performed By: #### A AAKASH GRANGER, ANEU, CBC, GFR, ADIFF, CMP #### [place] [address] MCHC 32.5 G/dL Normal 32.0-36.0 [facility] ([place] Comment on above: Performed By: #### A AAKASH GRANGER, ANEU, CBC, GFR, ADIFF, CMP #### [place] [address] MCV (RBC) [Entitic vol] 79.2 fL Low 80.0-99.0 A [facility] ([place] Comment on above: Performed By: #### A AAKASH GRANGER, ANEU, CBC, GFR, ADIFF, CMP #### [place] [address] Platelet 228 10 3/mcL Normal 150-450 [facility] ([place] Comment on above: Performed By: #### A AAKASH GRANGER, ANEU, CBC, GFR, ADIFF, CMP #### [place] [address] Platelet mean volume (Bld) [Entitic vol] 9.7 fL Normal 6.6-10.5 [facility] ([place] Comment on above: Performed By: #### A AAKASH GRANGER, ANEU, CBC, GFR, ADIFF, CMP #### [place] [address] RBC 5.62 10 6/mcL High 4.10-5.30 [facility] ([place] Comment on above: Performed By: #### A AAKASH GRANGER, ANEU, CBC, GFR, ADIFF, CMP #### [place] [address] WBC 6.50 10 3/mcL Normal 4.50-10.80 [facility] ([place] Comment on above: Performed By: #### A ELKIN, ABSGEL, ANEU, CBC, GFR, ADIFF, CMP #### [place] [address] CMPon 05-28-2021 Albumin Level 3.4 G/dL Normal 3.2-4.8 [facility] ([place] Comment on above: Performed By: #### A BOGEL, ABSGEL, ANEU, CBC, GFR, ADIFF, CMP #### [place] [address] Albumin/Globulin [Mass ratio] 1.0 {ratio} Normal 0.9-1.6 [facility] ([place] Comment on above: Performed By: #### A ELKIN ABSGEL, ANEU, CBC, GFR, ADIFF, CMP #### [place] [address] ALP [Catalytic activity/Vol] 59 U/L Normal 38-126 [facility] ([place] Comment on above: Performed By: #### A ELKIN, ABSGEL, ANEU, CBC, GFR, ADIFF, CMP #### [place] [address] ALT [Catalytic activity/Vol] 26 U/L Normal 10-49 [facility] ([place] Comment on above: Performed By: #### A BOGLEONIE, ABSGEL, ANEU, CBC, GFR, ADIFF, CMP #### [place] [address] AST [Catalytic activity/Vol] 24 U/L Normal 8-34 [facility] ([place] Comment on above: Performed By: #### A BOGEL, ABSGEL, ANEU, CBC, GFR, ADIFF, CMP #### [place] [address] Bili Total 0.50 mg/dL Normal 0.20-1.20 [facility] ([place]) Comment on above: Result Comment: Use of this assay is not recommended for patients undergoing treatment with eltrombopag due to the potential for falsely elevated results. Performed By: #### A BOGEL, ABSGEL, ANEU, CBC, GFR, ADIFF, CMP #### [place] [id number] BUN/Creatinine Ratio 19.0 ratio Normal 10.0-22.0 [facility] ([place]) Comment on above: Performed By: #### A AAKASH GRANGER, ANEU, CBC, GFR, ADIFF, CMP #### [place] [address] Calcium [Mass/Vol] 10.2 mg/dL Normal 8.7-10.4 [facility] ([place]) Comment on above: Result Comment: No te - New Reference Range in effect 19 Performed By: #### A ELKIN ABSNI, ANEU, CBC, GFR, ADIFF, CMP #### [place] [address] Chloride [Moles/Vol] 101 mmol/L Normal 98-110 [facility] ([place] Comment on above: Performed By: #### A AAKASH GRANGER, ANEU, CBC, GFR, ADIFF, CMP #### [place] [id number] CO2 [Moles/Vol] 36 mmol/L High 22-32 [facility] ([place] Comment on above: Performed By: #### A AAKASH GRANGER, ANEU, CBC, GFR, ADIFF, CMP #### [place] [address] Creatinine [Mass/Vol] 0.84 mg/dL Normal 0.50-1.20 [facility] ([place]) Comment on above: Performed By: #### A AAKASH GRANGER, ANEU, CBC, GFR, ADIFF, CMP #### [address] [address] Electrolyte Balance 5.0 mEq/L Normal 4.0-15.0 [facility] ([place]) Comment on above: Performed By: #### A AAKASH GRANGER, ANEU, CBC, GFR, ADIFF, CMP #### [address] [address] Globulin 3.3 G/dL Normal 1.5-3.8 [facility] ([place] Comment on above: Performed By: #### A AAKASH GRANGER, ANEU, CBC, GFR, ADIFF, CMP #### [address] [address] Glucose [Mass/Vol] 105 mg/dL Normal 82-115 [facility] ([place] Comment on above: Performed By: #### A AAKASH GRANGER, ANEU, CBC, GFR, ADIFF, CMP #### [address] [address] Potassium [Moles/Vol] 4.3 mmol/L Normal 3.5-5.0 [facility] ([place]) Comment on above: Result Comment: Spec imen slightly hemolyzed. Performed By: #### A AAKASH GRANGER, ANEU, CBC, GFR, ADIFF, CMP #### [place] [id number] Sodium [Moles/Vol] 142 mmol/L Normal 136-145 [facility] ([place] Comment on above: Performed By: #### A AAKASH GRANGER, ANEU, CBC, GFR, ADIFF, CMP #### [place] [address] Total Protein 6.7 G/dL Normal 5.7-8.2 [facility] ([place]) Comment on above: Result Comment: No te - New Reference Range in effect 19 Performed By: #### A AAKASH GRANGER, ANEU, CBC, GFR, ADIFF, CMP #### [place] [address] Urea nitrogen [Mass/Vol] 16.0 mg/dL Normal 8.0-22.0 [facility] ([place] Comment on above: Performed By: #### A AAKASH GRANGER, ANEU, CBC, GFR, ADIFF, CMP #### [place] [address] LABORATORYOrdered By: Mitch Flores on 05-28-2021 ABO [...] Invalid Interpretation Code 10 - 49 U/L ADM SS AST [Catalytic activity/Vol] 24 U/L Invalid Interpretation Code 8 - 34 U/L ADM SS Basophils (Bld) [#/Vol] 0.10 103/mcL Invalid Interpretation Code 0.00 - 0.27 10^3/mcL AH Remisol SS Basophils/100 WBC (Bld) 1.5 % Invalid Interpretation Code 0.0 - 2.5 % Remisol SS Bilirubin [Mass/Vol] 0.50 mg/dL Invalid Interpretation Code 0.20 - 1.20 mg/dL ADM SS Calcium [Mass/Vol] 10.2 mg/dL Invalid Interpretation Code 8.7 - 10.4 mg/dL ADM SS Chloride [Moles/Vol] 101 mmol/L Invalid Interpretation Code 98 - 110 mEq/L ADM SS CO2 [Moles/Vol] 36 mmol/L Invalid Interpretation Code 22 - 32 mEq/L ADM SS Creatinine [Mass/Vol] 0.84 mg/dL Invalid [...] Invalid Interpretation Code 1.5 - 3.8 G/dL AH ADM SS Glucose [Mass/Vol] 105 mg/dL Invalid [...] 4.50 - 10.80 10^3/mcL AH Rem[facility] Visit (SP) Office (HEMAWS) ABI REYNA ([id number]) 1955 F Date Time Provider Department 09/21/18 8:50 AM TIMI PARSONS During your visit today, we recorded the following information about you: Temperature Pulse Blood pressure Weight 97.2 degrees 68/minute 135/64 110.9 kg Timi Parsons MD 09/22/2018 7:20 AM Signed PATIENT NAME: Abi Reyna. CLINIC NO: [id number]. ATTENDING PHYSICIAN: Timi Parsons MD. DATE OF [...] PULM: No dyspnea, unexplained cough. GI: No dysphagia/odynophagia, problematic reflux, constipation, diarrhea, changes in stool [...] Latest Ref Rng AND Units 09/17/2018 WBC, [place] 3.70 - 11.00 k/uL 4.38 RBC, [place] 3.90 - 5.20 m/uL 5.24 (H) Hemoglobin, [place] 11.5 - 15.5 g/dL 14.3 Hematocrit, [place] 36.0 - 46.0 % 44.5 MCV, [place] 80.0 - 100.0 fL 84.9 MCH, [place] 26.0 - 34.0 pg 27.3 MCHC, [place] 30.5 - 36.0 g/dL 32.1 RDW, [place] 11.5 - 15.0 % 14.1 Platelet Cnt, [place] 150 - 400 k/uL 213 MPV, [place] 9.0 - 12.7 fL 11.6 Absol Gran [...] Dr. 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 CHOLECALCIFEROL (VITAMIN D3) 2,000 UNIT CAPSULE >> Aliya Vasquez MA 09/21/2018 8:34 AM >> ALIYA VASQUEZ MA FriSep 21, 2018 8:34 AM No longer taking. MAGNESIUM 250 MG TABLET >> Aliya Vasquez MA 09/21/2018 8:34 AM >> KATTYFAHAD ALIYA WHITE FriSep 21, 2018 8:34 AM No longer taking. ASPIRIN 81 MG CHEWABLE TABLET >> Aliya Vasquez MA 09/21/2018 8:34 AM >> KATTYFAHAD ALIYA WHITE FriSep 21, 2018 8:34 AM No longer taking. Problem List As Of Date 09/21/2018 Noted Resolved ESOPHAGEAL REFLUX [K21.9] More... 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 REGIONAL ENTERITIS NOS [K50.90] More... 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 Author Type: Physician Type: Progress Notes Filed: 09/22/2018 7:20 AM Note Text: PATIENT NAME: Abi Reyna. CLINIC NO: [id number]. ATTENDING PHYSICIAN: Timi Parsons MD. DATE OF [...] PULM: No dyspnea, unexplained cough. GI: No dysphagia/odynophagia, problematic reflux, constipation, diarrhea, changes in stool [...] [place] 3.70 - 11.00 k/uL 4.38 RBC, [place] 3.90 - 5.20 m/uL 5.24 (H) Hemoglobin, [place] 11.5 - 15.5 g/dL 14.3 Hematocrit, [place] 36.0 - 46.0 % 44.5 MCV, [place] 80.0 - 100.0 fL 84.9 MCH, [place] 26.0 - 34.0 pg 27.3 MCHC, [place] 30.5 - 36.0 g/dL 32.1 RDW, [place] 11.5 - 15.0 % 14.1 Platelet Cnt, [place] 150 - 400 k/uL 213 MPV, [place] 9.0 - 12.7 fL 11.6 Absol Gran [...] Parsons MD Cc: Dr. Ottoniel Page Normal [facility] Ferritinon 09-17-2018 Ferritin [Mass/Vol] 41.4 ng/mL Normal 14.7-205.1 [facility] Comment on above: Performed By: #### I LESLEE, FERR ####[place] [phone] Iron and TIBCon 09-17-2018 Iron [Mass/Vol] 39 ug/dL Low 41-186 [facility] Comment on above: Performed By: #### I LESLEE, FERR ####[place] [phone] TIBC 354 ug/dL Normal 232-386 [facility] Comment on above: Performed By: #### I LESLEE, FERR ####[place] [phone] Transferrin Saturatn 11 % Low 15-57 [facility] Comment on above: Performed By: #### I LESLEE, FERR ####[place] [phone] [place] Abs Gr + CBCon 09-17 Absol Gran Count 3.01 k/uL Normal 1.45-7.50 [facility] Erythrocyte distribution width (RBC) [Ratio] 14.1 % Normal 11.5-15.0 [facility] Hematocrit (Bld) [Volume fraction] 44.5 % Normal 36.0-46.0 [facility] Hemoglobin (Bld) [Mass/Vol] 14.3 g/dL Normal 11.5-15.5 [facility] MCH (RBC) [Entitic mass] 27.3 pg Normal 26.0-34.0 [facility] MCHC (RBC) [Mass/Vol] 32.1 g/dL Normal 30.5-36.0 [facility] MCV (RBC) [Entitic vol] 84.9 fL Normal 80.0-100.0 [facility] Platelet mean volume (Bld) [Entitic vol] 11.6 fL Normal 9.0-12.7 [facility] Comment on above: Result Comment: Test performed by: [facility] [place], [address] [place] [address]. RBC (Bld) [#/Vol] 5.24 10*6/uL High 3.90-5.20 [facility] WBC (Bld) [#/Vol] 4.38 10*3/uL Normal 3.70-11.00 [facility] [place] Platelet Cnt 213 k/uL Normal 150-400 [facility] Basic Metabolic Panlon 06-12 Anion gap [Moles/Vol] 10 mmol/L Normal [facility] Calcium [Mass/Vol] 9.0 mg/dL Normal 8.5-10.2 [facility] Chloride [Moles/Vol] 103 mmol/L Normal 97-105 [facility] CO2 [Moles/Vol] 26 mmol/L Normal 22-30 [facility] Creatinine [Mass/Vol] 0.60 mg/dL Normal 0.58-0.96 [facility] eGFR- Amer. >60 Normal [facility] GFR/1.73 sq M predicted among non-blacks MDRD (S/P/Bld) [Vol rate/Area] mL/min/{1.73_m2} Normal [facility] Comment on above: Result Comment: eGFR [...] GFR. Glucose [Mass/Vol] 105 mg/dL High 74-99 [facility] Potassium [Moles/Vol] 3.6 mmol/L Low 3.7-5.1 [facility] Sodium [Moles/Vol] 139 mmol/L Normal 136-144 [facility] Urea nitrogen [Mass/Vol] 8 mg/dL Normal 7-21 [facility] CNOVSPon 06-12-2018 CNOVSP Visit (SP) Office (HEMAWS) ABI REYNA ([id number]) 1955 F Date Time Provider Department 06/12/18 10:00 AM TIMI PARSONS During your visit today, we recorded the following information about you: Temperature Pulse Blood pressure Weight 98.8 degrees 70/minute 114/60 108.9 kg Height 1.778 m Daniella Burden LPN, LPN 06/12/2018 10:16 AM Signed New patient, discsuu diagnosis : iron defeincy anemia MILTON Turpin MD 06/13/2018 10:04 AM Signed Hematology and Medical Oncology PATIENT NAME: Abi Reyna. CLINIC NO: [id number]. ATTENDING PHYSICIAN: Timi Parsons MD. DATE OF [...] 3 days promethazine (PHENERGAN) 25 mg tablet oxyCODONE-acetaminophen (PERCOCET) 5325 mg per tablet Take 1-2 [...] Laterality Date - COLONOSCOP W/ OR W/O [facility] SPEC 04/17/2007 Colonoscopy - COLONOSCOP W/ OR W/O [facility] SPEC 09/18/2012 Colonoscopy - ERCP stone removal - LAPAROSCOPIC CHOLEYCYSTECTOMY 1989 [place] DUCT BLOCKED AND TRANSFERRED TO [facility] FOR FUTHER SURGERY - PAST SURGICAL HISTORY [...] PULM: No dyspnea, unexplained cough. GI: No dysphagia/odynophagia, problematic reflux, constipation, diarrhea, changes in stool [...] Latest Ref Rng AND Units 06/12/2018 WBC, Robin 3.70 - 11.00 k/uL 4.43 RBC, Robin 3.90 - 5.20 m/uL 4.76 Hemoglobin, [place] 11.5 - 15.5 g/dL 12.6 Hematocrit, [place] 36.0 - 46.0 % 40.8 MCV, Robin 80.0 - 100.0 fL 85.7 MCH, Robin 26.0 - 34.0 pg 26.5 MCHC, Robin 30.5 - 36.0 g/dL 30.9 RDW, [place] 11.5 - 15.0 % 16.4 (H) Platelet Cnt, Robin 150 - 400 k/uL 273 MPV, [place] 9.0 - 12.7 fL 11.0 Neut%, [place] % 74.5 Lymp%, [place] % 13.1 [place]%, Robin % 8.1 Eos%, [place] % 3.2 Baso%, Robin % 1.1 Abs Neut, [place] 1.45 - 7.50 k/uL 3.30 Abs Lymp, [place] 1.00 - 4.00 k/uL 0.58 (L) Abs [place], Robin <0.87 k/uL 0.36 Abs Eos, Robin [...] with more than 50% of the total yeco-my-oegc time of the visit in counseling / coordination of care. Timi Parsons MD. ELECTRONICALLY SIGNED Cc: Dr. Arvin Danielle Referring Provider: FACUNDO KAT [[id number]] Allergies As of Date: 06/12/2018 Noted Allergy Reaction CORTISONE 03/10/2016 1 - Mental Status Change Comments: Patient feels Paranoid DARVOCET-N 100 (PROPOXYPHENE N-AC*07/12/2005 8 - GI Upset DARVON (PROPOXYPHENE HCL) 07/11/2005 PREDNISONE 03/10/2016 1 - Mental Status Change Comments: Patient feels Paranoid VICODIN (HYDROCODONE-ACETAMINOP HE*07/11/2005 Comments: paranoid and had fireworks in her eyes Date Reviewed: 06/12/2018 Reviewed by: Daniella Castellano ([place]) MILTON Burden - Fully Assessed Reason for Visit: New Patient [172] Primary Visit Diagnosis:Iron deficiency anemia secondary to inadequate dietary iron intake [D50.8] Other Visit Diagnoses:Iron malabsorption [K90.9] Arthropathy in Crohn's disease (HCC) [M07.60, K50.90] Anemia, unspecified type [D64.9] Order(s):FERRITIN BLD [SQFERR] Order #: [id number] FUTURE FOLATE SERUM [SQSERFOL] Order #: [id number] FUTURE METHYLMALONIC ACID [SQMMA] Order #: [id number] FUTURE RETIC COUNT [SQRETIC] Order #: [id number] FUTURE VITAMIN B12 BLOOD [SQB12] Order #: [id number] FUTURE VITAMIN B6/PYRIDOXIN [SQVITB6] Order #: [id number] FUTURE IRON + TIBC [SQIRON] Order #: [id number] FUTURE CELIAC SCREEN WITH REFLEX [SQCELSCR] Order #: [id number] FUTURE BASIC METABOLIC PNL [SQBMP] Order #: [id number] FUTURE Level of Service: NEW PATIENT VISIT LEVEL 4 [19013] Disposition: Return in about 1 month (around [...] mouth twice * PROMETHAZINE 25 MG TABLET OXYCODONE-ACETAMINOPHEN 5 MG-* Take 1-2 tablets by mouth [...] More... 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] INVALID FOR* Skin lesion [L98.9] INVALID FOR* Pelvic mass [R19.00] INVALID FOR* Crohn's disease (HCC) [K50.90] INVALID FOR* Uterine mass [N85.9] INVALID FOR* Iron deficiency anemia secondary to inadequate *INVALID FOR* Visit Notes: >> Daniella Burden LPN FriJun 12, 2018 10:07 AM Status: Signed New patient, discsuu diagnosis : iron defeincy anemia Daniella Burden LPN Encounter Status:Closed by TIMI PARSONS MD on 06/13/18 Normal [facility] Celiac Scr w Reflexon 2018 IgA [Mass/Vol] 187 mg/dL Normal 78-391 [facility] Comment on above: Performed By: #### S ERFOL, MMA, IRON, B12, RETIC, FERR, CELSCR #### [facility] [address] [address] #### VITB6 #### [facility] [address] [place], [place] [id number] [phone] Interpretation No serologic evidenc e of celiac disease. Normal No serologic evidence of celiac disease. [facility] Comment on above: Performed By: #### S ERFOL, MMA, IRON, B12, RETIC, FERR, CELSCR #### [facility] [address] [place] [address] #### VITB6 #### [facility] [address] [place], [place] [id number] [phone] Transglutaminase IgA 4 Units Normal <20 [facility] Comment on above: Result Comment: Nega tive : < 20 Units Weak Positive : 20 - 30 Units Moderate Pos to Strong Pos: >30 Units The following results were obtained with the [employer] Direct QUANTA Lite h-tTG IgA JOHN. h-tTG IgA values obtained with different manufacturers' assay methods may not be used interchangeably. The magnitude of the reported IgA levels cannot be correlated to an endpoint titer. Performed By: #### S ERFOL, MMA,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 Phone: [facility] Work Phone: Start: 11-27-2021 End: 11-27-[address] [facility] Start: 09-14-2021 End: 09-14-[address] Ottoniel Page Work Phone: [facility] Start: 08-15-2021 End: 08-15-[address] Ottoniel Page Work Phone: [facility] Start: 08-08-2021 End: 08-08-[address] [facility]iel [facility] Start: 08-07-2021 End: 08-08-[address] Ottoniel Page Work Phone: [facility] Start: 08-02-2021 End: 08-02-[address] Ottoniel Page Work Phone: [facility] Start: 06-27-2021 End: 06-27-2021 Patient encounter procedure GERARDO HOOKS MD [facility] Start: 06-11-2021 End: 06-11-2021 SAME DAY STAY GERARDO HOOKS MD [facility] Start: 05-28-2021 End: 05-28-2021 Admission to establishment GERARDO HOOKS MD [facility] Start: 04-25-2021 End: 04-25-2021 Patient encounter procedure GERARDO HOOKS MD [facility] Procedures Date Procedure Procedure Detail Performing Clinician Start: 08-20-2024 Antibody screen SURGERY CONSULT Comment on above: Performed By: #### XM #### [facility] (DEFAULT) [address] [place] [address] Start: 08-17-2024 Antibody screen SURGERY CONSULT Comment on above: Performed By: #### XM #### [facility] (DEFAULT) [address] [place] [address] Start: 08-17-[address] Ottoniel Page DO Work Phone: Start: 08-17-2024 CT of head without contrast Dr. Ottoniel yee DO Work Phone: Start: 08-15-[address] Ottoniel Page DO Work Phone: Start: 08-04-[address] Ottoniel Page [...] Treatment Date Care Activity Detail Author Start: 08-17-2024 Oxygen therapy [facility] Start: 08-17-2024 End: 08-17-2024 [facility] Start: 08-15-2024 [facility] Start: 05-27-2024 Anes arthrs/endscpy dstl radius ulna/wrist/hand ANESTH LOWER ARM SURGERY [facility] Start: 05-27-2024 Arthrp interpos intercarpal/metacarpal joints ARTHRP NTRCRP/CRP/MTCR NTRPS [facility] Start: 05-27-2024 Application of ice collar, cap or bag [facility] Start: 05-27-2024 Catheterization of vein [facility] Start: 05-27-2024 Following clinical pathway protocol [facility] Start: 05-27-2024 Patient discharge [facility] Start: 05-27-2024 Procedure discontinued [facility] Start: 05-27-2024 Taking patient vital signs [facility] Start: 05-27-2024 Vital signs measurements [facility] Start: 05-27-2024 [facility] Start: 05-27-2024 Medication education [facility] Electrocardiographic procedure [facility] Patient Education AFib Dc [facility] Work Phone: Patient referral [facility] Work Phone: Immunizations Immunization Date Immunization Notes Care Provider Fa cili 03-07-2021 SARS-CoV-2 (COVID-19 ) mRNA-1273 vaccine GERARDO HOOKS MD [facility] 11-14-2020 influenza virus vaccine, unspecified formulation GERARDO HOOKS MD [facility] 08-06-2020 SARS-CoV-2 (COVID-19 ) mRNA-1273 vaccine GERARDO HOOKS MD [facility] 07-06-2020 SARS-CoV-2 (COVID-19 ) mRNA-1273 vaccine GERARDO HOOKS MD [facility] 12-27-2019 influenza virus vaccine, unspecified formulation GERARDO HOOKS MD [facility] 11-24-2017 influenza, injectabl e, quadrivalent, preservative free Dr. Ottoniel Page Work Phone: [facility] 11-24-2017 influenza, seasonal, injectable Dr. Ottoniel Page Work Phone: [facility] 12-21-2012 influenza virus vaccine, unspecified formulation GERARDO HOOKS MD [facility] Payers Date Payer Category Payer Self-pay [id number] 2020 Medicare [id number] 2011 Private Health Insurance AETNA [id number] 2010 Unknown [id number] 1955 Unknown [id number] 2.16. [id number] 1955 Unknown [id number] 2.16. [id number] Unknown [id number] 2.16.8 [id number] Unknown [id number] 2.16.8 [id number] Unknown [id number] 2.16.8 [id number] Unknown [id number] 2.16.8 [id number] Unknown [id number] 2.16.8 [id number] Unknown [id number] 2.16.8 [id number] Unknown [id number] 2.16.8 [id number] Unknown [id number] 2.16.8 [id number] Unknown [id number] 2.16.8 [id number] Unknown [id number] 2.16.8 [id number] Unknown [id number] 2.16.8 [id number] Unknown [id number] 2.16.8 [id number] Social History Date Type Detail Facility Start: 04-24-2021 End: 08-17-2024 Ex-smoker (finding) [facility] Comment on above: Quit in 1999 [facility]igned At [facility] Start: 08-07-2021 End: 08-08-2022 Tobacco smoking status NHIS Unknown if ever smoked [facility] Start: 04-27-2020 None [facility] Start: 04-09-2018 Spouse/ Signif icant Other [facility] Start: 04-13-2020 Non-smoker [facility] Start: 1955 Sex Assigned At Female W [facility] Start: 05-27-2024 End: 06-07-2024 Sex Female (finding) [facility] Medical Equipment Procedure Code Equipment Code Equipment Origin al Text Equipment Identifier Dates Arthroplasty, CMC joint ([id number]) Orthopaedic bone screw, non-bioabsorbable, sterile ([id number] FDA Start: 05-27-2024 DRESSING,FIBRILL AR 1X2 1960 FDA Start: 04-27-2020 [...] 1961 FDA Start: 04-27-2020 DRESSING,FIBRILL AR 1X2 1960 [...] 1961 FDA Start: 04-27-2020 DRESSING,FIBRILL AR 1X2 1960 [...] [facility] 06-11[facility]20[facility] 06-11[facility]2021 [facility] 06-11[facility]21 [facility] Date Assessment Result Facility 08-17-2024 Cognitive function Voice/Name [facility] Work Phone: 08-15-2024 Cognitive function Voice/Name [facility] Work Phone: 05-27-2024 Cognitive function Voice/Name [facility] Work Phone: 06-11-2021 [facility] 06-11-2021 to 08-17-2024 Note Date & Type Note Facility 08-17-2024 Radiology Diagnostic study note [facility] Imaging Services [address] [place] [address] [id number] STROKE Brain/Head without Cont MR#: [id number] Acct: [id number] Name: ABI REYNA Rep #: [id number] : 1955 F 69 From: Queenie Howe MD PCP: Dr. Ottoniel Page, DO Status: REG ER Study:STROKE Brain/Head without Cont Date of Exam: 08/17/24 Exam# [id number] Ordering Dr: Jordon Edwards MD PROCEDURE: STROKE BRAIN/HEAD WITHOUT CONT 08/17/2024 REASON FOR EXAM: NEURO DEFICIT, ACUTE, STROKE SUSPECTED TECHNIQUE: Head CT without intravenous contrast. Coronal and Sagittal reconstruction serieswere provided. One or more dose reduction techniques were used (e.g., Automated exposure control, adjustment of the mA and/or kV according to patient size, use of iterative reconstruction technique. RADIATION DOSE SUMMARY: CTDlvol: 45.0 mGy DLP: 864 mGycm COMPARISON: CT head on 05/15/2018 FINDINGS: Brain: There is an ovoid hyperdense intraparenchymal hemorrhage in the left parietal lobe measuring 1.3 x 2.5 x 2.6 cm (AP x TR x CC). No associated midline shift. Angela-white differentiation is maintained. CSF Spaces: No hydrocephalus. Mild generalized cerebral atrophy Sinuses/Mastoids: Clear at visualized levels Bones: Postoperative changes of the left parietal calvarium. Status post bilateral cataract extraction. CT/STROKE Brain/Head without Cont IMPRESSION: Left parietal intraparenchymal hemorrhage measuring up to 2.6 cm in size. Recommend Neurosurgical consultation. Red Alert: Left parietal intraparenchymal hemorrhage The critical information above was relayed directly by me by telephone to Young Edwards on 08/17/2024 at 7:50 pm with readback verification. Reading Location: [facility] CC: Dr. Ottoniel Page DO; Dr. Young Edwards MD ~ Pharmacy General Manager: Signed [facility] 08-15-2024 Discharge summary [facility] 08-10-2024 Evaluation note Diagnosis Onset Date Resolution Essential (primary) hypertension chronic August 10, 2024 8 :20am Paroxysmal atrial fibrillation chronic August 10, 2024 8 :20am [facility] Work Phone: 1(645) 687-594503-20-2025 Consult note [facility] Medical Records Department [address] [place] [address] Anesthesia Postop Eval II 05/27/24 1441 MR#: [id number] Acct: [id number] Name: ABI REYNA Rep #:[id number] : 1955 68 From: Zuri Copeland PCP: Dr. Ottoniel Page DO Status:REG SDC Y Race: C Location: [address] Anesthesia Postop Eval I Sum Postop Eval Completion status Anesthesia document: Postop Eval 1 completed: Yes Anesthesia Postop Eval I Summary Anesthesia Postop Eval I Summary: Anesthesia Postop Eval I: Assessment Summary Airway patent Yes 05/27/24 13:47 SAFETY PROFESSIONAL.BHOS Spontaneous unlabored Yes 05/27/24 13:47 SAFETY PROFESSIONAL.BHOS respirations Mental status Awake,Calm 05/27/24 13:47 SAFETY PROFESSIONAL.BHOS nausea No 05/27/24 13:47 SAFETY PROFESSIONAL.BHOS Vomiting No 05/27/24 13:47 SAFETY PROFESSIONAL.BHOS Anesthesia Postop Eval I: Fluid Summary Crystalloid volume administer 800 05/27/24 13:47 SAFETY PROFESSIONAL.BHOS (ml) Colloids volume administered ( ml) Blood Product volume administered (ml) Total IV fluid infused 800 05/27/24 13:47 SAFETY PROFESSIONAL.BHOS Anesthesia Postop Eval I: Summary Notes Anesthesia Complication No 05/27/24 13:47 SAFETY PROFESSIONAL.BHOS Anesthesia Complication Comment: Post-operative progress note Anesthesia: Postop Eval II Evaluation Mental status: Awake Pain Level: 1 nausea: No Vomiting: No 05/27/24 1441 a> Date _ Zuri Hoskinsignadolfo Signature: Date CC: ~ Signed [facility]03-20-2025 Procedure note [facility] Medical Records Department [address] [place] [address] Operative Report 05/27/24 1341 MR#: [id number] Acct: [id number] Name: ABI REYNA Rep #:[id number] : 1955 68 From: Bruno gold DO PCP: Dr. Ottoniel Page DO Status:REG [facility] Location: [place] [address] Operative Report (Standard) Operative Information Date of Procedure: 05/27/24 Pre-Operative Diagnosis: Right first carpal metacarpal joint osteoarthritis Post-Operative Diagnosis: Right first carpal metacarpal joint osteoarthritis Surgery/Procedure Performed: Right first carpometacarpal joint arthroplasty withtrapezium excision,ligament reconstruction tendon interposition transmitter engineer in charge: Yes Fixed Route Operator: Makeda Hermosillo Tasks completed by electrician assistant: Opening & closing and Implanting device Type of Anesthesia: [...] 12:06 Procedure Stop Time: 13:36 Select all DRAINS/GRAFTS/IMPLANTS that apply: Implanted device Implanted device details: Arthrex bio composite 4 x 10 mm tenodesis screw, fiber tape suture Estimated Blood Loss: 10 cc Specimen collected: No Description of surgery: Patient was seen in preoperative holding area. She was identified by name, medical record number, date of . The operative extremity was marked with asurgical marker. We confirmed informed consent with the patient and all questions were answered to his satisfaction. Axillary block was then placed by anesthesia staff prior to the procedure. At time of her procedure, patient was brought to the operative suite and positioned supine a standard operating table. All bony prominences were well- padded. General anesthesia was induced and endotracheal tube placed. The right upper extremity was then prepped for surgery by first applying a well-padded pneumatic tourniquet to the right upper arm. The hand table attached to the right side of [facility]. We spun the bed 90 degrees. The right upper extremitiesthen prepped and draped in normal, sterile orthopedic [...] the anatomic snuffbox of the right dorsal firstCMC. Incision was carried sharply through skin and subcutaneous tissue. Superficial veins were cauterized. Superficial sensory branches from the radial nerve were protected and retracted. We bluntly dissected through the fascia downto the level of the dorsal branch of [...] subsequently with a McGlamry elevator. We were ableto free the trapezium circumferentially and excised the trapezium en bloc. This was examined and had severe degenerative changes on the distal articular surface at the first CMC. The trapezoid was examined and appeared unremarkable. The FCR was identified in the wound. Attenuation of the tendon wasnoted at this time. The wound was copiously [...] a complete rupture had occurred at the distalinsertion of the FCR tendon. I made a decision to proceed with a suture suspensioplasty. FCR tendonstump was identified. I useda #2 tape suture to establish our suspensioplasty by first securing into the distal tendon stump of the FCR tendon. I drilled in standard fashion at the base of the fifth metacarpal and passed a single limb of suture within the firstmetacarpal base and another limb around the base. Sutures were then tensioned and tied. I did place our tenodesis screw for additional fixation within the bony tunnel. The first metacarpal base was stable to axial traction with appropriate pistoning and stability. The FCR tendon that was harvested was thenwrapped in an accordion fashionand secured with a 3-0 Ethibond suture to the capsule. Final images were obtained. We then deflated the tourniquet. Hemostasis was excellent. I closed the capsule in watertight fashion with an 0 Vicryl suture. Subcutaneous layers werereapproximated with 3-0 Vicryl in a running subcuticular Monocryl. Dermabond was used to finally reapproximate skin. Sterile compression dressing was applied. A well-padded thumb spica fiberglass splint was then applied. Patient tolerated procedure well without apparent complication. She was subsequently extubated and transferred to PACU in stable condition. Need for skilled clinical trials assistant: Makeda Hermosillo PA-C was critical to the outcome of thecase. During the course of the procedure the physician clinical trials assistant played a vitalrole. Her intimate knowledge of my stepsin the procedure aided in safe and expedient completion of the procedure. The PA played a vital role in positioning particularly in obtaining the appropriate positioning. The PA was also vital in theretraction of soft tissues during the exposure and protecting vital structures. The PA was also vital and obtaining reduction and assisting with hardware placement. She also played a vital role in closure and splint application with my direct supervision. Intraoperative medications: 2 g Ancef administered by anesthesia prior to incision Post Operative Plan: Weightbearing: Nonweightbearing operative extremity Antibiotics: Ancef 2 g x 1 dose preoperatively DVT Prophylaxis: 81 mg aspirin twice daily beginning postoperative day number 1 x 2 weeks Jalloh: None Dressing: Maintain splint, keep it clean dry and intact until follow-up. Plan to transition to short arm thumb spica cast for an additional 2 weeks for a total immobilization time of 4 weeks. X-Rays: 2 weeks postop in the office Pain Medication: Oxycodone Rx upon discharge Follow-up: 2 weeks post-operatively with me in the office Surgical Findings: Stable first metacarpal base following final fixation. FCR rupture. Complications Complications: No Admit VTE Documentation VTE Present on Admission: No VTE Mechan Device Prophylaxis: SCD's VTE Pharm Prophylaxis ordered?: Yes 05/27/24 1349 Cosigner Signature (if applicable): CC: Dr. Ottoniel Page DO; Dr. Bruno Avila DO; KIMBERLY Resendez~ Signed [facility]03-20-2025 Consult note [facility] Medical Records Department [address] [place] [address] Anesthesia Postop Eval I 05/27/24 1346 MR#: [id number] Acct: [id number] Name: ABI REYNA Rep #:[id number] : 1955 68 From: Gatito mata CRNA PCP: Dr. Ottoniel Page, DO Status:REG [facility] Y Race: C Location: [place] [address] Anesthesia: Postop Eval I Current Vital Signs [...] Postop Eval 1 completed: Yes 05/27/24 1347 tler SAFETY PROFESSIONAL> Date _ Gatito Jiménez SAFETY PROFESSIONAL Cosigner Signature: Date CC: ~ Signed [facility]03-20-2025 Radiology Diagnostic study note [facility] Imaging Services [address] [place] [address] Hand 2 Views MR#: [id number] Acct: [id number] Name: ABI REYNA Rep #: [id number] : 1955 F 68 From: Mckenzie Mercado MD PCP: Dr. Ottoniel Page, DO Status: REG [facility] Study:Hand 2 Views Date of Exam: 5 Exam# [id number] Ordering Dr: Bruno Avila DO EXAM: XR [...] the operative notefor further details. Reading Location: [facility] CC: Dr. Ottoniel Page DO; Dr. Bruno Avila DO ~ Pharmacy General Manager: Signed [facility]03-20-2025 Consult note Author Tom Roger [facility] Note Date/Time May 27, 2024 11: 17am [facility] Medical Records Department [address] [place] [address] Pre-Anesthesia Evaluation 05/27/24 1105 MR#: [id number] Acct: [id number] Name: ABI REYNA Rep #:[id number] : 1955 68 From: Tom Roger MD PCP: Dr. 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 - tug boat engineer Hx Hospitalization No 05/12/24 11:05 Any Problems [...] take am of surgery PONV PONV - tug boat engineer: PONV - tug boat engineer Female Yes 05/12/24 11:05 HX of Motion [...] 05/27/24 10:40 Respiratory Assessment Respiratory Assessment - tug boat engineer: Respiratory Tract Infection Hx - tug boat engineer Hx Respiratory Tract Infection No 05/12/24 11:05 STOP Sleep Apnea STOP Sleep Apnea - tug boat engineer: STOP Sleep Apnea - tug boat engineer Hx Hypertension Yes: CONTROLLED WITH MEDS 05/12/24 [...] Tobacco Use History Tobacco Use History - tug boat engineer: Tobacco Use History - tug boat engineer Tobacco Use Smoking Status Former smoker 05/12/24 11:05 Hx Tobacco Use No 05/12/24 11:05 Years Smoking Packs Smoked per Day Smoking Cessation Date was No - quit smoking greater 05/12/24 11:05 within the last 15 years than 15 years ago Hx Smoking Cessation Date 03/10/99 05/12/24 11:05 Hx Smoking Cessation Counseling Hematologic Medial History Hematologic Hx - tug boat engineer: 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 Female Yes 05/12/24 11:05 HX of Motion [...] 05/27/24 10:40 Respiratory Assessment Respiratory Assessment - tug boat engineer: Respiratory Tract Infection Hx - tug boat engineer Hx Respiratory Tract Infection No 05/12/24 11:05 STOP Sleep Apnea STOP Sleep Apnea - tug boat engineer: STOP Sleep Apnea - tug boat engineer Hx Hypertension Yes: CONTROLLED WITH MEDS 05/12/24 [...] Tobacco Use History Tobacco Use History - tug boat engineer: Tobacco Use History - tug boat engineer Tobacco Use Smoking Status Former smoker 05/12/24 11:05 Hx Tobacco Use No 05/12/24 11:05 Years Smoking Packs Smoked per Day Smoking Cessation Date was No - quit smoking greater 05/12/24 11:05 within the last 15 years than 15 years ago Hx Smoking Cessation Date 03/10/99 05/12/24 11:05 Hx Smoking Cessation Counseling Hematologic Medial History Hematologic Hx - tug boat engineer: 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 Medical Hx - marine service 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 Hx of Blood Transfusion No 05/12/24 11:05 [...] confused, unrespo /Reproduction History /Reproductive History - tug boat engineer: /Reproductive Hx- tug boat engineer Hx Now Gestational Age (in weeks): EDC: [...] Tom Madrid Signature: Date CC: ~ Signed [facility]03-14-2025 Hospital Discharge instructionsAmbulatory Orders* 12 Lead EKG [[facility]] Time Frame: 05/21/24, Location: None Selected [facility] Work Phone: 1(632) 265-968004-04-2022 Hospital Discharge instructions Patient Education 06/11/2021 15:45:44 [...] us better serve our patients. Form: 1522 (13906) R: 06/1606/11/2021 15:44:54 Total Laparoscopic Hysterectomy, Care [...] and water are not available, use hand three dimensional art instructor. ?Change your dressing as told by your [...] told by your health care provider. Take wqga-avr-veuhxqg and prescription medicines only as told by [...] your urine clear or pale yellow. ?Take vqat-ffn-dmtilvk or prescription medicines. ?Eat foods that are [...] 12/15/2013 Document Revised: 02/06/2018 Document Reviewed: 05/07/2017 [employer] Patient Education [employer]. Follow Up Care 04/25/2021 12:00:50 With:GERARDO HOOKS MD, [facility] Address: When: Unknown Comments:Follow-up as scheduled [facility] Consult note Author Gatito Jiménez [facility] Note Date/Time May 27, 2024 1:4 7pm [facility] Medical Records Department [address] [place] [address] Anesthesia Postop Eval I 05/27/24 1346 MR#: [id number] Acct: [id number] Name: ABI REYNA Rep #:[id number] : 1955 68 From: Gatito mata CRNA PCP: Dr. Ottoniel Page, DO Status:REG SDC Y Race: C Location: [place] [address]- Anesthesia: Postop Eval I Current Vital Signs [...] Yes 05/27/24 1347 <Electronically signed by Gatito mortensen SAFETY PROFESSIONAL> Date _ Gatito Jiménez SAFETY PROFESSIONAL Cosigner Signature: Date CC: ~ Signed [facility] Work Phone: Consult note Author Zuri Copeland [facility] Note Date/Time May 27, 2024 3:0 5pm [facility] Medical Records Department [address] [place] [address] Anesthesia Postop Eval II 05/27/24 1441 MR#: [id number] Acct: [id number] Name: ABI REYNA Rep #:[id number] : 1955 68 From: Zuri Copeland PCP: Dr. Ottoniel Page, DO Status:REG SDC Y Race: C Location: [place] [address] Anesthesia Postop Eval I Sum Postop Eval Completion status Anesthesia document: Postop Eval 1 completed: Yes Anesthesia Postop Eval I Summary Anesthesia Postop Eval I Summary: Anesthesia Postop Eval I: Assessment Summary Airway patent Yes 05/27/24 13:47 SAFETY PROFESSIONAL.BHOS Spontaneous unlabored Yes 05/27/24 13:47 SAFETY PROFESSIONAL.BHOS respirations Mental status Awake,Calm 05/27/24 13:47 SAFETY PROFESSIONAL.BHOS nausea No 05/27/24 13:47 SAFETY PROFESSIONAL.BHOS Vomiting No 05/27/24 13:47 SAFETY PROFESSIONAL.BHOS Anesthesia Postop Eval I: Fluid Summary Crystalloid volume administer 800 05/27/24 13:47 SAFETY PROFESSIONAL.BHOS (ml) Colloids volume administered ( ml) Blood Product volume administered (ml) Total IV fluid infused 800 05/27/24 13:47 SAFETY PROFESSIONALNEYDA Anesthesia Postop Eval I: Summary Notes Anesthesia Complication No 05/27/24 13:47 SAFETY PROFESSIONAL.BHCHADD Anesthesia Complication Comment: Post-operative progress note Anesthesia: Postop Eval II Evaluation Mental status: Awake Pain Level: 1 nausea: No Vomiting: No 05/27/24 1441 <Electronically signed by Zuri salinas> Date _ Zuri Copeland Cosigner Signature: Date CC: ~ Signed [facility] Work Phone: Discharge summary Author Hugh Mercado [facility] Note Date/Time August 15, 2024 2:57a [facility] Medical Records Department [address] [place] [address] Emergency Department Summary 08/15/24 MR#: [id number] Acct: [id number] Name: ABI REYNA Rep #:[id number] : 1955 69 From: Hugh Gayle PCP: Dr. Ottoniel Page DO Status:REG ER Location: ED HPI History of Present Illness Chief Complaint: Palpitations Informant: patient Narrative Narrative: Palpitations recurrent A-fib waking her at 11:30 PM 2.5 hours ago. Went to bed feeling fine. History of paroxysmal A-fib followed by roll scale man Dr. Keane. She states she had a brain tumor craniotomy 2003 therefore she election was not to do anticoagulants. She has no recent illness no cough no recent vomiting or diarrhea. No coronary disease history. She is on sotalol she took extra half dose of sotalol at midnight as treatment plans with her roll scale man. She stillfeels symptoms. Prior similar symptoms: Yes PFSH PFSH Medical History History of steroid therapy [...] PO DAILY 10/1305/27/24 07:30 History release (Protonix) cephalexin 250 mg tablet 250 mg PO DAILY 09/23/19 History cyclobenzaprine 10 mg tablet 10 mg PO PRN PRN MUSCLE R ELAXANT 09/23/19 Unknown History hydrochlorothiazide 25 mg tablet 25 mg PO DAILY Unknown History latanoprost 0.005 % eye drops 1 drp EACH EYE QHS 04/13 Unknown History aspirin 81 mg tablet,delayed 81 mg PO QHS 08/24/20 History release promethazine 25 mg tablet 25 mg PO Q6H PRN Nausea 08/08 09/27 Unknown History ustekinumab 90 mg/mL subcutaneous 90 mg subcut .Q2MO 0 08/24/20 Unknown History syringe (Stelara) sotalol 80 mg tablet 80 mg PO BID #180 TABLETS 05/27/24 07:30 Rx gabapentin 400 mg capsule 400 mg PO TID 05/12/2405/27 07:30 History betamethasone dipropionate 0.05 % 1 applic topical QDA Y PRN skin 08/10/24 Unknown History topical ointment irritation bupropion HCl 150 mg 24 hr tablet, 150 mg PO QDAY 06/01 Unknown History extended release clobetasol 0.05 % topical cream 1 applic topical BID 0 08/10/24 Unknown History clotrimazole 1 % topical cream 1 applic topical BID Unknown History ferrous sulfate 325 mg (65 mg 325 mg PO QDAY 08/10/24 Unknown History iron) tablet,delayed release hyoscyamine sulfate 0.125 mg 0.125 mg PO Q6 PRN nausea /vomiting 08/10/24 Unknown History disintegrating tablet primidone 50 mg tablet 100 mg PO BID 08/10/24 Unkno wn History ropinirole 0.5 mg tablet 0.5 mg PO .COMPLEX 08/10/24 Unknown History timolol maleate 0.5 % eye drops 1 drp ophthalmic (eye) DAILY 08/10/24 Unknown History Allergy/AdvReac Type Severity Reaction Status Date / Time prednisone Allergy Itching Verified 08/15/24 01:46 hydrocodone (From Vicodin) AdvReac Severe GI upset Verified 08/15/24 01:46 propoxyphene (From AdvReac Severe GI upset Verified 08/15/24 01:46 Darvocet-N) cortisone AdvReac Intermediate Unknown Verified 08/15/24 01:46 Family History Mother CAD (coronary artery disease) Myocardial infarction Father Hypertension Brother CAD (coronary artery disease) Surgical History History of thumb surgery (~05/2024) History of cystoscopy History of tonsillectomy and [...] you feel safe at home: Yes ROS ROS ED Constitutional Constitutional ED: Denies chills, fever(s) or sweats ENT ENT ED: Denies sore throat Cardiovascular Cardiovascular: Reports palpitations and racing heartbeat; Denies chest pain or leg edema Respiratory/Chest Respiratory/Chest: Denies cough, dyspnea or dyspnea on exertion Gastrointestinal Gastrointestinal: Denies abdominal pain, diarrhea, nausea or vomiting Genitourinary Genitourinary ED: Denies dysuria, hematuria or urinary frequency Musculoskeletal Musculoskeletal: Denies back pain, extremity pain or neck pain Integumentary Denies rash or wounds Neurologic Neurologic: Denies headache(s), paresthesias or weakness EXAM Physical Exam Const Vital Signs: 08/15/24 01:47 08/15/24 01:49 Temperature 98.1 F Temperature Source Oral Pulse Rate 135 H Respiratory Rate 18 Respiratory Effort Normal Non-Labored Respiratory Pattern Normal Blood Pressure 119/94 H Blood Pressure Mean 102 Pulse Ox 98 Oxygen Delivery Method Room Air Positive well nourished and well developed General Appearance ED: well developed and NAD HEENT Reports moist mucous membranes normocephalic and atraumatic Eyes General Eye ED: Yes normal appearance of both eyes Neck full ROM Chest Wall Chest: Negative for tenderness Resp normal respiratory effort and normal air movement Effort and Inspection: symmetric chest movement; Negative for respiratory distress Cardio no murmurs Rate: tachycardic Rhythm: abnormal rhythm Peripheral Pulses: pulses 2+ throughout GI normal to inspection, nondistended, normoactive bowel sounds and non-tender Palpation: Negative for guarding or rebound tenderness present Extremity normal to inspection General Extremety ED: Negative for edema or tenderness General Extremity: Negative for edema Neuro oriented x3 and no sensory deficits noted Sensorium / Orientation: awake and alert Skin no rashes or lesions noted and no wounds MDM MDM MDM Narrative Medical decision making narrative: Interventions / MDM: Differential diagnosis: A-fib with RVR, Diagnosis considered but do not suspect: N/A My EKG interpretation: A-fib RVR rate 151, no ST changes. QTc 497. Repeat EKG at 0209: Sinus rate of [address] changes. QTc 431. Imaging independently reviewed and interpreted by myself: N/A External documents reviewed: N/A Test considered but not ordered:N/A ED course: EKG A-fib RVR blood pressure 119/94. IV established labs were sent. No clinical illnesses to cause recurrent A-fib last time she when A-fib was overa year ago. Symptoms onset 2.5 hours ago. 0200: I spoke with on-call roll scale man Dr. Manuel, with patient's known feeling symptomatic 2 and half hours ago, discussed no current anticoagulants. Reports since symptoms are known, cardioversion can be performed discussing riskand benefits with the patient. She agrees to pursue. Will set up for cardioversion. Written consent. Risk and benefits discussed. Patient's last meal was 7 PM over 7 hours ago. 0208: Prior to any preparations, reported she may have converted. In the room she is sinus rate in the 80s. Blood pressure systolic 102. Will repeat EKG. 0209: Repeat EKG sinus rhythm. 0255: Labs all stable. Remains sinus rhythm rate in the 70s on reevaluation. Patient continue home medications. Follow-up with her roll scale man. All questions were answered. Re-evaluation: stable Disposition discussed with patient/family/significant other: Case discussed with consulting clinician: Cardiology This note was generated with [employer]ieldex dictation software. It may contain incorrectwords, spelling, and punctuation that were not noted in checking the note beforesigning. Lab Data Attestation: I reviewed the patient's lab results. Labs: Laboratory Results - last 24 hr 08/15/24 02:07 WBC 7.8 RBC 5.53 H Hgb 14.8 Hct 46.5 MCV 84.1 MCH 26.8 L MCHC 31.8 L RDW Std Deviation 41.9 RDW Coeff of Laura 13.7 Plt Count 238 MPV 11.1 Immature Gran % (Auto) 0.300 Neut % (Auto) 56.9 Lymph % (Auto) 29.9 [place] % (Auto) 8.6 Eos % (Auto) 3.3 Baso % (Auto) 1.0 Absolute Neuts (auto) 4.4 Absolute Lymphs (auto) 2.33 Nucleated RBC % 0 PT 12.3 INR 0.9 APTT 22.6 L Sodium 139 Potassium 3.6 Chloride 100 Carbon Dioxide 27.8 Anion Gap 11 BUN 9 Creatinine 0.70 Estim Creat Clear Calc 92.81 Est GFR (MDRD) Non-Af 94 BUN/Creatinine Ratio 12.8 Glucose 138 H Calcium 9.1 Discharge Plan Triage Chief Complaint: Palpitations ED Provider: Hugh Mercado Dx/Rx/DC Orders Clinical Impression: Paroxysmal atrial fibrillation, Palpitations Instructions: AFib Dc Prescriptions: No Action oxycodone-acetaminophen 5-325 mg tablet 1 tab PO Q4H PRN (Reason: Pain) pantoprazole [Protonix] 40 mg tablet,delayed release (DR/EC) 40 mg PO DAILY ropinirole 0.5 mg tablet 0.5 mg PO .COMPLEX Rx Instructions: 0.5 mg orally; 1 qam, 2 @ 12, 2 qpm cyclobenzaprine 10 mg tablet 10 mg PO PRN PRN (Reason: MUSCLE RELAXANT) Patient Comments: take 1 tablet by mouth three times a day if needed for muscle spasm cephalexin 250 mg tablet 250 mg PO DAILY ferrous sulfate 325 mg (65 mg iron) tablet,delayed release (DR/EC) 325 mg PO QDAY primidone 50 mg tablet 100 mg PO BID hyoscyamine sulfate 0.125 mg tablet,disintegrating 0.125 mg PO Q6 PRN (Reason: nausea/vomiting) clotrimazole 1 % cream 1 applic topical BID betamethasone dipropionate 0.05 % ointment 1 applic topical QDAY PRN (Reason: skin irritation) clobetasol 0.05 % cream 1 applic topical BID bupropion HCl 150 mg tablet extended release 24 hr 150 mg PO QDAY timolol maleate 0.5 % drops 1 drp ophthalmic (eye) DAILY latanoprost 1 DROP bottle 1 drp EACH EYE QHS hydrochlorothiazide 25 MG tablet 25 mg PO DAILY aspirin 81 mg Tablet,Delayed Release (Dr/Ec) 81 mg PO QHS promethazine 25 mg Tablet 25 mg PO Q6H PRN (Reason: Nausea) ustekinumab [Stelara] 90 mg/mL Syringe 90 mg SUBCUT .Q2MO gabapentin 400 mg capsule 400 mg PO TID sotalol 80 mg tablet 80 mg PO BID Qty: 180 3RF Primary Care Provider: Ottoniel Page Referrals: Andrew Keane MD [Med Staff - Active Staff] - 1-2 Weeks Ottoniel Page DO [Primary Care Provider] - Activity Restrictions/Additional Instructions: You were in A-fib with RVR spontaneous converted before cardioversion needed. Continue your home medications. Follow-up with Dr. Keane. Print Language: Nauruan Disposition Disposition: Home, Self Care What to do if you have Problems For any increased pain, shortness of breath, bleeding, nausea or vomiting, chestpain, or any unexpected problems, contact your Primary Care Provider. Call [facility] ([phone]) or report to the closest Emergency Room. Call 911 if necessary. 08/15/24 0257 <Electronically signed by Hugh Gayle> Cosigner Signature (if applicable): CC: Andrew Keane MD; Dr. Ottoniel Page DO ~ Signed [facility] Work Phone: Evaluation + Plan note Future Appointments [facility] Evaluation + Plan note Future Appointments Appointment Date:06/27/2021 11:00:00 AM Scheduled Provider:GERARDO HOOKS MD Location:[facility] Appointment Type:SO OV Post Op [facility] Evaluation + Plan note Future Appointments Appointment Date:07/25/2021 11:30:00 AM Scheduled Provider:GERARDO HOOKS MD Location:[facility] Appointment Type:SO OV Post Op [facility] Evaluation note* Diagnosis Onset Date Resolution Status Essential (primary) hypertension chronic Paroxysmal atrial fibrillation chronic [facility] Work Phone: Evaluation noteNo assessment information available [facility] Work Phone: Evaluation note* Diagnosis Onset Date Resolution Status Admit Date Essential (primary) hypertension chr onic August 10, 2024 8:20am Paroxysmal atrial fibrillation chron ic August 10, 2024 8:20am [facility] Work Phone: Hospital course Narrative No data available for this section [facility] Hospital Discharge instructions No data available for this section [facility] Hospital Discharge instructions Additional Instructions You were in A-fib with RVR spontaneous converted before cardioversion needed. Continue your home medications. Follow-up with Dr. Keane.[facility] Work Phone: Progress note No data available for this section [facility] Reason for referral (narrative)No reason for referral information available[facility] Work Phone: Summary Purpose Family History No Family History Records Found Relationship Condition Age at Onset Recorded Date/T blanca mother Coronary artery disease Unknown Myocardial infarction Unknown father Hypertension Unknown brother Coronary artery disease Unknown Advance Directives No Advanced Directives Records Found Advance Directive Response Recorded Date/ Time Living Will Yes February 20 9:22am Power of Candy Cooker Helper Yes February 20, 2021 9:22am Advance Directive Response Recorded Date/ Time Living Will Yes February 20 8:22am Power of Candy Cooker Helper Yes February 20, 2021 8:22am Advance Directive Response Recorded Date/ Time Living Will Yes February 20 9:22am Do you have a Healthcare Pow er of Candy Cooker Helper? Yes February 20, 2021 9:22am Living Will Yes May 12, 2024 12:05pm Do you have a Healthcare Pow er of Candy Cooker Helper? Yes May 12, 2024 12:05pm Name of Medical Power of Candy Cooker Helper Indu REYNA May 12, 2024 12:05pm Advance Directive Response Recorded Date/ Time Living Will Yes February 20 9:22am Do you have a Healthcare Pow er of Candy Cooker Helper? Yes February 20, 2021 9:22am Living Will Yes May 12, 2024 12:05pm Do you have a Healthcare Pow er of Candy Cooker Helper? Yes May 12, 2024 12:05pm Name of Medical Power of Candy Cooker Helper MAXIMO REYNA May 12, 2024 12:05pm Do you have a Healthcare Pow er of Candy Cooker Helper? Yes August 15, 2024 1:49am Advance Directive Response Recorded Date/ Time Living Will Yes February 20 9:22am Do you have a Healthcare Pow er of Candy Cooker Helper? Yes February 20, 2021 9:22am Living Will Yes May 12, 2024 12:05pm Do you have a Healthcare Pow er of Candy Cooker Helper? Yes May 12, 2024 12:05pm Name of Medical Power of Candy Cooker Helper MAXIMO REYNA May 12, 2024 12:05pm Do you have a Healthcare Pow er of Candy Cooker Helper? Yes August 17, 2024 8:09pm Do you have a Healthcare Pow er of Candy Cooker Helper? Yes August 15, 2024 1:49am Chief Complaint and Reason for Visit Chief [...] WRIST SURGERY,[facility] RT FLORES Parekr FAX July 20, 2024 11:30am SCREENING August 04, 2024 8:11a m 1 Y FU August 10, 2024 8:20a m Reason for Visit Admit Date Essential (primary) hypertension August 8:20am Paroxysmal atrial fibrillation August 10, 2024 8:20am Chief Complaint Admit Date LUMBAR AND RIGHT HIP April 20, 2024 4:21pm S/O- NEEDED May 10, 2024 8:58 am PREOP May 21, 2024 7:5 3am Carpal Metacarpal Arthroplasty, Trapezie ctomy, Li May 27, 2024 10:05am S/P WRIST SURGERY,[facility] RT FLORES Parker FAX July 20, 2024 11:30am SCREENING August 04, 2024 8:11a m 1 Y FU August 10, 2024 8:20a m palpitations August 15, 2024 1:45a m Chief Complaint Admit Date LUMBAR AND [...] Y FU August 10, 2024 8:20a m palpitations August 15, 2024 1:45a m NUMBNESS AND TINGLING August 17, 2024 7: 05pm Additional Source Comments INFORMATION SOURCE (unrecogn ized section and content) DATE CREATED AUTHOR 09/26/2018 [facility] DATE CREATED AUTHOR AUTHOR'S ORGANIZ ATION 11/17/2021 [facility] ([place]) DATE CREATED AUTHOR AUTHOR'S ORGANIZ ATION 08/20/2024 [facility] DATE CREATED AUTHOR AUTHOR'S ORGANIZ ATION 08/25/2024 [facility] DATE CREATED AUTHOR AUTHOR'S ORGANIZ ATION 08/26/2024 [facility] Care Team (unrecognized sect ion and [...] Inactive Member Role Status Dates Dr. Ottoniel Camilo , DO Primary Care Provider Active KIMBERLY [...] Attending Provider, Referring Provider Active Fiorella Vidal [employer] Other Provider Active Team Status: Inactive Member [...] 2024 KIMBERLY Resendez Other Provider Active Start: [facility] 2024 End: May 27, 2024 Team Status: [...] August 10, 2024 End: August 10, 2024 Team Status: Inactive Member Role Status Dates Dr. Ottoniel Page DO Primary Care Provider Active Start: August 15, 2024 End: August 15, 2024 Dr. Hugh Mercado DO Emergency Provider Active Start : August 15, 2024 End: August 15, 2024 Team Status: Inactive Member Role Status Dates Dr. Ottoniel Page DO Primary Care Provider Active Start: August 17, 2024 End: August 17, 2024 Dr. Young Edwards MD Emergency Provider Active Sta rt: August 17, 2024 End: August 17, 2024 Goals (unrecognized section and content) Goals [...] BE BASED ON THE PRIMARY CLINICAL RECORDS. [employer] [facility]. provides no warranty or guarantee of the accuracy or completeness of information in this document.
[2024-08-29 13:08] VITALS: BP 117/72; PULSE 77; RESP 17; TEMP 36.6; O2SAT 96; BMI 35.1
[2024-08-29 17:48] VITALS: BP 126/57; PULSE 74; RESP 16; TEMP 36.3; O2SAT 96
[2024-08-29] MEDS: Sotalol Hydrochloride 80 MG Tablet PO (20:50)
[2024-08-29] MEDS: Latanoprost 0.005% 1 Bottle 1 DRP EACH EYE (20:51)
[2024-08-30 05:41] LABS: Hematocrit 41.5 % (37-47); Hemoglobin 13.2 g/dL (12.0-15.0); Immature Granulocytes Count 0.040 X10^3/uL (0.0-0.0); Mean Corp Hgb Conc 31.8 g/dL (32-36); Mean Corpuscular Volume 84.3 fL (81-99); Mean Platelet Vol. 11.8 fl (6.2-12.0); NRBC Flagged by Analyzer 0 % (0-5); Platelet Count 195 K/mm3 (150-450); RBC Distribution Width CV 13.8 % (11.6-14.6); RBC Distribution Width SD 42.5 fl (35.1-43.9); Red Blood Count 4.92 M/mm3 (4.2-5.4); White Blood Count 7.4 K/mm3 (4.4-11.0)
[2024-08-30 06:27] LABS: Anion Gap 11 (5-15); BUN 8 mg/dL (4-19); BUN/Creat Ratio 13.8 RATIO (10-20); Calcium,Total 9.3 mg/dL (7.6-11.0); Carbon Dioxide 25.8 mmol/L (21.0-32.0); Chloride 99 mmol/L (98-108); Estimated Creatinine Clearance 89.62 ml/min (50-250); Glucose 116 mg/dL (70-99); Magnesium 1.8 mg/dL (1.5-2.2); Potassium 3.9 mmol/L (3.3-5.1)
[2024-08-30 06:46] VITALS: BP 96/69; PULSE 72; RESP 16; TEMP 36.9; O2SAT 97
[2024-08-30] MEDS: buPROPion (XL) 150 MG TABLET.XL PO (07:48)
[2024-08-30] MEDS: Timolol 0.5% 5ML OPTH.BTL 1 DRP OPHTHALMIC (07:49)
[2024-08-30] MEDS: Sotalol Hydrochloride 80 MG Tablet PO ×2 (07:49→21:01)
--- NOTE | 2024-08-30 12:11 | PCM.HP.STD ---
HPI - General General Date of Admission: 08/29/24 Date of Service: 08/30/24 Chief Complaint: POST STROKE DEBILITY HPI Narrative AMANDA SANCHEZ, is a 69 YO F with a PMH of SVT, coronary artery disease, Crohn's disease (follows with Dr. Brody), irritable bowel syndrome, essential tremor (on Mysoline and was referred to neurology by Dr. Wallace) , resection of a meningioma in 2009, obesity, or, history of pulmonary embolism (unprovoked), RLS, HLD, GERD, iron deficiency, tobacco dependence in remission, hypertension, anxiety/depression, glaucoma, wide-complex tachycardia and paroxysmal atrial fibrillation who presented to the emergency department at [facility] on 08/17/2024 complaining of numbness on the right side of her body. A stat noncontrast CT brain showed a left parietal intraparenchymal hemorrhage measuring up to 2.6 cm. Teleneurology was consulted and recommended transfer to [facility] for hemorrhagic stroke. They also recommended discussing with neurosurgery. CT was repeated at [facility] and demonstrated a left parietal hemorrhage measuring 2.4 cm x 1.9 cm x 2.5 cm without an underlying vascular malformation or aneurysm on CTA and with no midline shift. She was started on Keppra for seizure prophylaxis and an MRI of the brain was ordered. ASA was placed on hold. MRI of the brain on 08/18/2024 showed grossly stable size of the left parietal intraparenchymal hematoma with mild surrounding vasogenic edema with minimal local mass effect. There was an indeterminate right frontal bone lesion with mild associated contrast-enhancement and a small contrast-enhancing nodule in the right internal auditory canal suggestive of a small schwannoma. 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 She was taken to the OR on 08/20/2024 for resection of SM II AVF and evacuation of the hematoma. While ihn the hospital she was seen by PT/OT and . She was requiring MOD to total assist with ADL's and [facility]. She was transferred to the acute inpt rehab unit at [facility] on 08/29/24 for 3 hours of therapy daily to restore function/independence at or her level prior to the stroke. I reviewed the last cardiology note from 08/10/2024 and the results of the last echocardiogram which was in 2020 showed a left ventricular ejection fraction of 65% with a PA systolic estimated at 23. There was stage I diastolic dysfunction. She denied any long episodes of palpitations but has an occasional short run of palpitations. She was maintained on low-dose metoprolol but if the episodes become longer we will have a repeat Holter monitor. EEG at [facility] was negative for seizures. All lab drawn this morning was personally reviewed. The white blood cell count is 7.2 hemoglobin is 13.2. MCV is 84. Platelets are within normal limits. Sodium is 136 and the potassium is 3.9. BUN is 8 with a creatinine of 0.58 which is actually below her baseline. Calcium is 9.3 and the phosphorus is 4.0. Magnesium is 1.8. Blood pressure has ranged from 96/69 to 126/57. The heart rate is ranged from 72-77. Afebrile Maintaining appropriate oxygen saturation on room air. She tells me that she was seen in the ED a few days before the stroke for sustained AF with RVR.....she spontaneously converted in the ED prior to planned cardioversion. [facility] Medical History (Updated 08/30/24 @ 16:[address] Debi Deleon, ) Loud snoring Essential tremor Obesity (BMI 35.0-39.9 without comorbidity) Glaucoma Urge incontinence Stroke/cerebrovascular accident History of steroid therapy History of Holter monitoring Cardiology follow-up encounter Wears glasses Wears dentures Arthritis Pulmonary embolism Restless legs Back pain History of IBS History of Crohn's disease Gastric reflux Former smoker Leg cramps History of stress test Hx of echocardiogram History of trigger finger Wide-complex tachycardia (04/27/20) COVID-19 virus detected (01/24/20) Lumbar stenosis without neurogenic claudication Essential (primary) hypertension Thyroid goiter History of meningioma of the brain Anxiety and depression Hyperlipidemia Paroxysmal atrial fibrillation Home Medications ?Medication ?Instructions ?Recorded ?Last Taken ?Type pantoprazole 40 mg tablet,delayed 40 mg PO DAILY GERD 10/13/18 08/29/24 History release (Protonix) cephalexin 250 mg tablet 250 mg PO QHS Antibiotic 09/23/19 05/26/24 History hydrochlorothiazide 25 mg tablet 25 mg PO DAILY BP 04/13/20 Unknown History latanoprost 0.005 % eye drops 1 drp EACH EYE QHS eye drops 04/13/20 Unknown History promethazine 25 mg tablet 25 mg PO Q6H PRN Nausea 08/24/20 Unknown History gabapentin 400 mg capsule 400 mg PO TID Nerve pain 05/12/24 05/27/24 07:30 History betamethasone dipropionate 0.05 % 1 applic topical QDAY PRN skin 08/10/24 08/29/24 History topical ointment irritation bupropion HCl 150 mg 24 hr tablet, 150 mg PO QDAY Mood 08/10/24 08/29/24 History extended release clobetasol 0.05 % topical cream 1 applic topical 0600,2200 PRN 08/10/24 Unknown History Skin irritation clotrimazole 1 % topical cream 1 applic topical 0600,2200 PRN 08/10/24 Unknown History Skin irritation ferrous sulfate 325 mg (65 mg 325 mg PO DAILY supplement 08/10/24 Unknown History iron) tablet,delayed release hyoscyamine sulfate 0.125 mg 0.125 mg PO Q6 PRN nausea/vomiting 08/10/24 Unknown History disintegrating tablet primidone 50 mg tablet 100 mg PO BID Essential tremors 08/10/24 08/29/24 History ropinirole 0.5 mg tablet 0.5 mg PO TID Restless leg 08/10/24 08/29/24 History timolol maleate 0.5 % eye drops 1 drp ophthalmic (eye) DAILY eye 08/10/24 08/29/24 History drops sotalol 80 mg tablet 80 mg PO BID BP #180 TABLETS 08/17/24 08/29/24 Rx enoxaparin 40 mg/0.4 mL 40 mg subcut DAILY Blood thinner 08/29/24 Unknown History subcutaneous syringe (Lovenox) oxycodone 5 mg tablet 5 mg PO Q6H PRN pain 08/29/24 Unknown History Allergy/AdvReac Type Severity Reaction Status Date / Time prednisone Allergy Itching Verified 08/17/24 19:11 hydrocodone (From Vicodin) AdvReac Severe GI upset Verified 08/17/24 19:11 propoxyphene (From AdvReac Severe GI upset Verified 08/17/24 19:11 Darvocet-N) cortisone AdvReac Intermediate Unknown Verified 08/17/24 19:11 Family History (Updated 08/30/24 @ 16:[address] Debi Deleon DO) Mother CAD (coronary artery disease) Myocardial infarction VTE (venous thromboembolism) Father Hypertension Brother CAD (coronary artery disease) Surgical History (Updated 08/30/24 @ 16:[address] Debi Deleon DO) History of cataract extraction History of craniectomy History of thumb surgery (~05/2024) History of cystoscopy History of tonsillectomy and adenoidectomy Hx laparoscopic cholecystectomy History of carpal tunnel surgery of right wrist Hx of bilateral breast reduction surgery History of back surgery (04/2020) History of lobectomy of thyroid Hx of craniotomy Social History (Updated 08/30/24 @ 16:[address] Debi Deleon DO) household members: spouse housing: house number of children: 4 Smoking Status: Former smoker how long ago did patient quit smokin-25 years ago. alcohol intake: never substance use type: does not use caffeine: Yes Type: carbonated beverages Number of servings: 2 what type of physical activity do you participate in: walking frequency: 3-4 times per week duration: 30-45 minutes/day seatbelt use: always do you feel safe at home: Yes ROS Review of Systems ROS Unobtainable: Denies due to encephalopathy, due to endotracheal tube, due to mental condition or due to mental status Constitutional Constitutional: Reports fatigue, snoring and weakness; Denies anorexia, change in weight, chills, fever(s) or night sweats Eyes Eyes: Denies blurry vision, change in vision, eye pain or loss of vision ENT HEENT: Denies abnormal hearing, dysphagia, headache(s), hearing loss, nasal congestion or sore throat Cardiovascular Cardiovascular: Reports edema, lightheadedness and racing heartbeat; Denies chest pain, dyspnea on exertion, orthopnea, palpitations, paroxysmal nocturnal dyspnea or syncope Respiratory/Chest Respiratory/Chest: Denies cough, dyspnea, shortness of breath at rest, shortness of breath with exertion or wheezing Gastrointestinal Gastrointestinal: Reports diarrhea, loose stools and other Details: She is having 3-4 loose BM's a day. Rare BM in the middle of the night. She has crohn's and also IBS. Denies abd pain today and has no blood or mucous in her stool. No abd pain. No N/V. ; Denies abdominal pain, constipation, dyspepsia, hematemesis, hematochezia, melena, nausea, odynophagia, rectal bleeding or vomiting Genitourinary Genitourinary: Denies dysuria, hematuria, nocturia, urinary frequency, urinary hesitancy, urinary incontinence or urinary urgency Musculoskeletal Musculoskeletal: Reports back pain, difficulty walking, numbness, radiating pain into limb and other Details: Sees Dr. Hernandez for epidurals. She is having numbness of the R face, arm and leg but, she denies weakness. ; Denies joint pain, joint swelling or neck pain Neurologic Neurologic: Reports headache(s), numbness, radicular pain and restless legs; Denies abnormal speech, confusion, disequilibrium, dizziness, focal weakness, loss of vision, memory loss, paresthesias, seizures or tremor(s) Psychiatric Psychiatric: Denies anxiety, depression, homicidal ideation or suicidal ideation Endocrine Endocrinology: Denies change in body appearance, polydipsia or polyuria Hematologic/Lymphatic Hematologic/Lymphatic: Denies easy bleeding, easy bruising or lymphadenopathy Allergic/Immunologic Allergic/Immunologic: Denies rhinitis, eczemia or asthma Vital Signs Vital Signs Vital Signs: 08/29/24 13:08 08/29/24 16:43 08/29/24 17:48 Temperature 98 F 97.3 F L Temperature Source Temporal Temporal Pulse Rate 77 74 Respiratory Rate 17 16 Respiratory Effort Normal Non-Labored Respiratory Depth Normal Respiratory Pattern Normal Blood Pressure 117/72 126/57 H Blood Pressure Mean 87 80 Blood Pressure Source Monitor Monitor Blood Pressure Position Semi-Fowlers Semi-Fowlers Blood Pressure Location Right Arm Right Arm Pulse Ox 96 96 Oxygen Delivery Method Room Air Room Air Room Air 08/29/24 22:00 08/30/24 06:46 08/30/24 07:08 Temperature 98.5 F Temperature Source Oral Pulse Rate 72 Respiratory Rate 16 Respiratory Effort Normal Non-Labored Respiratory Depth Normal Respiratory Pattern Normal Blood Pressure 96/69 Blood Pressure Mean 78 Blood Pressure Source Monitor Blood Pressure Position Sitting Blood Pressure Location Left Arm Pulse Ox 97 Oxygen Delivery Method Room Air Room Air Room Air Weight Weight: 244 lb 14.937 oz Body Mass Index (BMI) 35.1 Physical Exam Const alert, oriented x3 and no apparent distress Constitutional Narrative: Making good eye contact, appropriate General Appearance: cooperative, comfortable and well kempt HEENT HEENT Narrative: Very dry MM. Eyes PERRL, EOMs intact bilaterally, conjunctivae normal and no scleral icterus Eyes Narrative: No discharge from the eyes and no mattering of the eyelashes. General Eye: normal appearance of both eyes Neck no lymphadenopathy, supple, no JVD, No nodes and no carotid bruits Neck Narrative: Brisk carotid upstroke with good pulse volume. Chest Chest: symmetrical chest wall rise Resp normal respiratory effort, normal air movement, no use of accessory muscles and clear to auscultation bilaterally Resp Narrative: Not tachypneic and no conversational dyspnea. Effort and Inspection: able to speak in complete sentences Cardio regular rate, regular rhythm, S1 normal heart sound, S2 normal heart sound, no murmurs, no rub and no gallops Cardio Narrative: No ectopy GI normal to inspection, nondistended, normoactive bowel sounds, soft to palpation and non-tender GI Narrative: No guarding with palpation. no CVA tenderness Back/Spine Back/Spine Narrative: She has kyphosis. Has not had a BMD test in many years. The last bone mineral density at [facility] was in 2017 and at that time she had normal bone density. Extremity no clubbing, cyanosis or edema, no calf tenderness and no pedal edema Extremity Narrative: Negative Hardy's and Sandi's signs. SHARIF hose are in place. Skin Skin Narrative: No rashes, no skin breakdown. Rashes: no rashes Wound Narrative: The craniotomy incision is intact and sutured. There is no dehiscence. No purulent discharge. No shirin-incisional erythema and no significant swelling around the incision. Neuro oriented x3, CN's II-XII intact bilaterally and no focal motor deficits Neuro Narrative: Tongue protrudes on the midline. Pupils are equal round and reactive to light and accommodation. Smooth pursuit but a few beats of nystagmus. Denies vertigo. Good strength in the arms and legs......no drift. Numbness R side. She had a recent surgery on the R thumb for severe OA.......has a scar. Good plantar flexion and dorsiflexion. No ataxia, No extinction. No visual field cuts. Normal speech. No aphasia or dysarthria. Psych affect normal, denies hallucinations, denies homicidal ideation and denies suicidal ideation Psych Narrative: Appropriate, making good eye contact. Able to stay on topic and focus. No flight of ideas. Does not appear anxious or depressed. Conversant and relating well to staff. Appearance: grossly normal and well kempt Attitude: calm and engaged Results Lab / Micro Data 08/30/24 05:30 08/30/24 05:30 Labs: Laboratory Results - last 24 hr 08/30/24 05:30: WBC 7.4, RBC 4.92, Hgb 13.2, Hct 41.5, MCV 84.3, MCH 26.8 L, MCHC 31.8 L, RDW Std Deviation 42.5, RDW Coeff of Laura 13.8, Plt Count 195, MPV 11.8, Immature Gran % (Auto) 0.500, Neut % (Auto) 62.6, Lymph % (Auto) 23.1, [place] % (Auto) 10.3 H, Eos % (Auto) 2.6, Baso % (Auto) 0.9, Absolute Neuts (auto) 4.6, Absolute Lymphs (auto) 1.70, Nucleated RBC % 0, Sodium 136, Potassium 3.9, Chloride 99, Carbon Dioxide 25.8, Anion Gap 11, BUN 8, Creatinine 0.58 L, Estim Creat Clear Calc 89.62, Est GFR (MDRD) Non-Af 98, BUN/Creatinine Ratio 13.8, Glucose 116 H, Calcium 9.3, Phosphorus 4.0, Magnesium 1.8 Assessment & Plan Assessment/Plan (1) Physical debility: (2) 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: (3) History of craniectomy: (4) Essential tremor: (5) Paroxysmal atrial fibrillation: (6) Essential (primary) hypertension: (7) Hyperlipidemia: QUALIFIERS: Hyperlipidemia type: pure hypercholesterolemia Qualified Code(s): E78.00 - Pure hypercholesterolemia, unspecified; E78.0 - Pure hypercholesterolemia (8) Glaucoma: QUALIFIERS: Glaucoma type: unspecified (9) Obesity (BMI 35.0-39.9 without comorbidity): (10) Anxiety and depression: (11) Restless legs: (12) Loud snoring: (13) Kyphosis: QUALIFIERS: Kyphosis type: postural Spinal region: cervicothoracic Qualified Code(s): M40.03 - Postural kyphosis, cervicothoracic region PLAN: Plan PLAN PT for gait stability OT for ADL's ST for evaluation Analgesics as needed Bowel protocol Fall precautions Assess for Anxiety/Depression GI prophylaxis -pantoprazole DVT prophylaxis with Lovenox Follow up with neurosurgery, Dr. Dodge, Dr. Hernandez, Dr. Rock for neurology and Dr. Matthew Wallace following DC from [facility] AM lab including CMP, CBC, Mag and Phos - all reviewed. Check iron studies Overnight trending pulse ox for suspected JANNETH Increase the ropinirole dose to 0.25 mg every morning, 0.5 mg in the afternoon and 0.5 mg at bedtime.......this is what she has been taking at home. Takes Neurontin for back pain and radicular pain. Would like to wean Keppra down and possibly off prior to DC Will need to reschedule her appt with neurosurgery on 09/02 because she will still be on acute rehab. Imodium PRN for diarrhea........she has no abdominal pain, no blood or mucus in her stool, no bowel movements at night and no nausea or vomiting so I suspect the loose stool was secondary to her irritable bowel syndrome rather than Crohn's disease. If it continues and does not respond to Imodium we will discuss with Dr. Brody. She had a prolonged episode of atrial fibrillation just 2 days prior to her stroke. I reviewed the last cardiology note from [facility] Wilcox and she will likely need a Holter monitor or event monitor to see if she is having significant episodes of AF. Will discuss with cardiology. Continue Sotalol for now. She is on Wellbutrin for depression but, she also has anxiety and Wellbutrin does not treat anxiety. Consider an SSRI rather than Wellbutrin? This would also treat anxiety and possibly IBS. Weight loss recommended - would like to see th BMI at least less than 30 Encouraged her to increase her water intake......MM are very dry and intake is poor. Lightheadedness with standing is likely related to IV volume depletion. Will check orthostatics in the AM........DC HCTZ. BP is on the low side today........likely due to dehydration. 1. Do you snore loudly? Yes 2. Do you often feel tired, fatigued or sleepy during the day? Yes 3. Has anyone ever observed you stop breathing during sleep? No 4. Do you have (or are you being treated for) HTN? Yes BMI 35 AGE 69 Neck circumference [ ] Gender female Total [ ] She falls asleep watching TV and reading a book. She also falls asleep after meals. She frequently feels fatigued during the day. Charges/Coding Visit Charges Inpatient E&M: 96745 Init Hosp L3
[2024-08-30 15:45] LABS: AST(SGOT) 21 U/L (<=31); Alanine Aminotransfer ALT/SGPT 25 U/L (<=34); Albumin, Serum 3.5 g/dL (3.4-4.8); Alkaline Phosphatase 69 U/L (35-104); Bilirubin, Direct 0.21 mg/dL (0.00-0.30); Globulin 2.9 g/dL (2.2-4.2)
--- NOTE | 2024-08-30 17:02 | PCM.RU.PYE ---
Admission Information Primary Diagnosis:: Poststroke debility Status Changes from Prescreening?: No changes Identified Actual Problem List:: Skin Intergrity, Pain, ALteration in Cmfrt, Alteration in Sleep, Mobility Impaired, Self Care Deficit, Fluid Change-Dehydration and Alteration-Leisure Activ. Potential Problem List:: DVT, Bleeding, Infection, UTI, Aspiration, Falls, Skin Integrity and Depression Risk of Complications DVT: LMWH and SHARIF Hose Bleeding: Monitor Lab Values, Nursing to Teach Precautions for anti-coagulation therapy., Wound, if applicable, to be assessed every shift. and Stroke patients assessed for lethargy or change in status. Infection: Clinical Staff to Monitor for S/S of infection: and S/S of infection include fever, redness, warmth, etc. Urinary Tract Infection: Monitor for frequency, burning, discomfort, or incontinence. and Nursing will obtain urine sample for urinalysis and C&S when ordered. Aspiration: Clinical staff will monitor for coughing, drooling, congestion., Speech will evaluate swallowing and dsyphasia. and Nursing will monitor patient swallowing during meals. Falls: Patient will be evaluated for Fall Precautions and Patient will be placed on Fall Precautions as indicated per protocol. Skin Breakdown: Nursing will assess skin daily using assessment tool. and Nursing will place on Skin Breakdown Precautions as indicated. Pain: Clinical staff will assess patient's pain level per protocol., Medications will be given, if needed, and the pain level reassessed. and Other methods: Massage, distraction, decrease stimulus, etc. used PRN. Plan of Care Patient requires physician specializing in physical medicine and rehab oversight to provide close medical supervision of rehab issues including: Pain Management, Sleep Problems, Bowel and Bladder, Medical and co-morbidity Management, DVT prophylaxis, Rehabilitation Leadership and Coordination of treatment team Patient needs Physical Therapy: For a minimum of 1 hour and At least 5 out of 7 days Patient needs Physical Therapy to improve:: Mobility, Strengthening, Transfers, Stretching, ROM, Endurance, Stairs, Gait and Balance Patient needs Occupational Therapy: For a minimum of 1 hour and At least 5 out of 7 days Patient needs Occupational Therapy to improve ADL's incl.: Eating, Grooming, Bathing, Dressing, Toileting, Toilet transfers, Community Reintegration, Higher functioning activities, Household tasks, Adaptive Equipment, Splinting and Other activities as determined Patient requires 24/ Rehabilitation Nursing for: Pain Issues, Identifying and preventing risk factors, Monitoring and reporting current medical conditions, Assisting with ambulation, transfer, and all ADL's, Teaching patients about disease process and medications, Family teaching, Providing safe environment, Bowel and Bladder Issues, Skin integrity and Medication Management Patient needs Funeral Home General Manager/ Case Management for: Discharge Planning, Arranging Home Equipment or Services and Family Interventions Patient needs Dietary and Nutrition Services for: Adequate Nutrition, Nutritional Supplements and Nutritional Education Goals Goals Patient will remain: free from falls Patient will perform eating at: MOD I level of assist. Patient will perform bed mobility at: MOD I level of assist. Patient will complete transfers from bed to chair at: MOD I level of assist. Patient will ambulate: - (500 feet with least restrictive device at mod I) Patient will complete upper body dressing at: MOD I level of assist. Patient will complete lower body dressing at: MOD I level of assist. Patient will complete toilet transfer at: MOD I level of assist. Patient will complete toileting at: MOD I level of assist. Patient will perform bathing at: MOD I level of assist. (With adaptive this equipment as needed) Patient will perform Tub/Shower transfer at: - (Supervision) Patient will complete grooming at: MOD I level of assist. (While standing at the sink) Patient will achieve: - (At least 4 steps with a handrail at standby assist) Patient will have pain level of: of 3 or less Patient's skin will: remain intact Patient will receive: adequate nutrition. Discharge Planning Pt Prognosis for Sig. Practical Improv. w/in Reasonable Time: Good Estimated Length of stay (days): 21 Anticipated D/C Destination: Home with Outpt Therapy Was Preadmission Assessment Accurate?: Yes
[2024-08-30 17:22] LABS: Ferritin 213 ng/mL (22-378); Iron 34 ug/dL (50-170); Iron Binding Capacity,Total 281 ug/dL (250-450); Iron Binding Capacity,Unsat 247 ug/dL (228-428)
[2024-08-30] MEDS: Magnesium Chloride 64 MG Delay Rel.Tablet 128 MG PO (17:32)
[2024-08-30] MEDS: Potassium Chloride Oral Tablet 20 MEQ PO (17:32)
[2024-08-30 18:00] VITALS: BP 169/55; PULSE 63; RESP 16; TEMP 36.8; O2SAT 94
[2024-08-30 20:55] VITALS: BP 131/58; PULSE 74; RESP 16; O2SAT 95
[2024-08-30] MEDS: Latanoprost 0.005% 1 Bottle 1 DRP EACH EYE (21:04)
[2024-08-30 21:37] VITALS: PULSE 72; O2SAT 94
[2024-08-30] MEDS: Triamcinolone Ointment 1 APPLIC TUBE TOPICAL (22:42)
[2024-08-31 06:00] VITALS: BP 131/62; BP 149/91; BP 158/73; PULSE 75; PULSE 77; PULSE 87; RESP 17; TEMP 36.1; O2SAT 96
[2024-08-31 07:15] VITALS: O2SAT 92
[2024-08-31] MEDS: Potassium Chloride Oral Tablet 20 MEQ PO (08:06)
--- NOTE | 2024-08-31 08:47 | PN_ITS ---
Subjective Subjective Afebrile Blood pressure over the past 24 hours has ranged from 96/69 yesterday at 7 AM to 169/55. Blood pressure this a.m. is 131/62. Heart rate is within normal limits. Maintaining appropriate oxygen saturation on room air while awake. Oral fluid intake yesterday was 1780. Ate 75 to 100% of all the meals she has had on rehab. She complained of nausea last night and received Phenergan. Also tells me that she slept from about 10:30 to 2:30 and then had to use the RR......then could not go back to sleep. Ate 75-100% of breakfast today and denies nausea. she also took and Imodium to help with loose stool........she has had 2 stools today already. there is only 1 stool recorded for yesterday. No CP, SOB, hemoptysis, no vomiting, no dysuria, no calf tenderness. she is requesting Flonase.......she takes it at home. Nausea and TADEO are regular complaints. Overnight trending pulse ox shows she is hypoxic 75% of the time she was monitored. She had 40 desaturation events. Objective Data Objective Data Vital Signs: Vital Signs Temp Pulse Resp BP Pulse Ox O2 Del Method O2 Flow Rate 97.0 F L 77 17 131/62 H 96 Room Air 0 08/31/24 06:00 08/31/24 06:00 08/31/24 06:00 08/31/24 06:00 08/31/24 06:00 08/31/24 06:00 08/30/24 21:37 FiO2 21 08/30/24 21:37 Oxygen Flow Rate (L/min) 0 Oxygen Delivery Method Room Air Weight: 244 lb 14.937 oz Body Mass Index (BMI) 35.1 Intake & Output: Intake and Output for Last 24 Hours 08/29/24 08/30/24 08/31/24 23:59 23:59 23:59 Intake Total 1780 / 1780 300 / 300 Output Total 200 / 200 400 / 400 Balance -200 / -200 1380 / 1380 300 / 300 Lab / Micro Data 08/30/24 05:30 08/30/24 05:30 Labs: Laboratory Results - last 24 hr 08/30/24 05:30: Iron 34 L, TIBC 281, Iron Saturation 12.0 L, Unsaturated IBC 247, Ferritin 213, Total Bilirubin 0.59, Direct Bilirubin 0.21, AST 21, ALT 25, Alkaline Phosphatase 69, Total Protein 6.4, Albumin 3.5, Globulin 2.9 Physical Exam Const oriented x3 and no apparent distress General Appearance: cooperative HEENT Mouth: dry mucous membranes Resp normal respiratory effort, normal air movement and clear to auscultation bilaterally Effort and Inspection: Negative for tachypneic Cardio regular rate, regular rhythm and no gallops GI normal to inspection, nondistended, normoactive bowel sounds, soft to palpation and non-tender Extremity no calf tenderness General Extremity: Negative for edema Skin Skin Narrative: Eczematous rash on the palm of her hand. Has a steroid cream that she uses PRN. 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 Continue therapy 2. Apply supplemental oxygen anytime she is sleeping. Sleep study at [place] from rehab. 3. Discontinue Wellbutrin -I suspect this contributes to her chronic headaches, insomnia and anxiety. She tells me that she does not feel this medication helps her. Depression and anxiety may not improve with medication because the sx are related to sleep deprivation. IF she needs a medication for anxiety/depression after she is treated for JANNETH would favor an SSRI to help with both anxiety and depression. 4. Wean Ropinirole off.....I suspect she is experiencing Augmentation and it does not really help because the RLS is due to a combination of iron deficiency and JANNETH. She is chronically on a PPI and likely not absorbing oral iron. will give Iron sucrose. 5. It will be interesting to see if the JANNETH is treated whether or not she still has PAF. She is using 2 antifungal creams and a steroid cream.........why 2 different antifungals? She tells me that one of the creams is for vaginal dryness? Charges/Coding Visit Charges Inpatient E&M: 89573 Subs Hosp L2
--- NOTE | 2024-08-31 10:41 | NURSING ---
left message neurology Jenn Avila [facility] for sucture removal date
[2024-08-31] MEDS: Magnesium Chloride 64 MG Delay Rel.Tablet 128 MG PO (10:42)
[2024-08-31] MEDS: Sotalol Hydrochloride 80 MG Tablet PO ×2 (10:43→21:50)
[2024-08-31] MEDS: Timolol 0.5% 5ML OPTH.BTL 1 DRP OPHTHALMIC (10:44)
[2024-08-31] MEDS: Sodium Ferric Gluconat/Sucrose 125 MG in 0.9% Normal Saline (100mL Bag) 100 ML 110 MG IV (13:14)
[2024-08-31] MEDS: 0.9% Normal Saline (250mL Bag) 250 ML 15 ML IV (13:14)
[2024-08-31] MEDS: 0.9% Saline Lock 10 ML Syringe IV ×2 (13:14→13:17)
[2024-08-31 17:45] VITALS: BP 104/37; PULSE 68; RESP 16; TEMP 36.6; O2SAT 90
[2024-08-31 21:30] VITALS: PULSE 68; RESP 16; O2SAT 90
[2024-08-31] MEDS: Latanoprost 0.005% 1 Bottle 1 DRP EACH EYE (21:51)
[2024-09-01 05:00] VITALS: BP 106/48; PULSE 66; RESP 16; TEMP 36.4; O2SAT 92
[2024-09-01] MEDS: Potassium Chloride Oral Tablet 20 MEQ PO (05:07)
[2024-09-01 06:41] VITALS: O2SAT 92
[2024-09-01] MEDS: Sotalol Hydrochloride 80 MG Tablet PO ×2 (08:14→21:50)
[2024-09-01] MEDS: Magnesium Chloride 64 MG Delay Rel.Tablet 128 MG PO (08:15)
[2024-09-01] MEDS: Timolol 0.5% 5ML OPTH.BTL 1 DRP OPHTHALMIC (08:16)
[2024-09-01] MEDS: Fluticasone 0.05% 1 SPRAY NASAL.SRY 2 SPRAY NASAL (08:26)
[2024-09-01] MEDS: 0.9% Saline Lock 10 ML Syringe IV (15:24)
[2024-09-01 17:26] VITALS: BP 112/50; PULSE 69; RESP 16; TEMP 36.3; O2SAT 94
[2024-09-01 21:40] VITALS: PULSE 69; RESP 16; O2SAT 94
[2024-09-01] MEDS: Latanoprost 0.005% 1 Bottle 1 DRP EACH EYE (21:50)
[2024-09-02 06:00] VITALS: BP 103/48; PULSE 69; RESP 16; TEMP 36.4; O2SAT 94
[2024-09-02] MEDS: Fluticasone 0.05% 1 SPRAY NASAL.SRY 2 SPRAY NASAL (07:56)
[2024-09-02] MEDS: Magnesium Chloride 64 MG Delay Rel.Tablet 128 MG PO (07:56)
[2024-09-02] MEDS: Sotalol Hydrochloride 80 MG Tablet PO ×2 (07:56→22:21)
[2024-09-02] MEDS: Potassium Chloride Oral Tablet 20 MEQ PO (07:57)
[2024-09-02] MEDS: Timolol 0.5% 5ML OPTH.BTL 1 DRP OPHTHALMIC (07:58)
--- NOTE | 2024-09-02 12:04 | PN_ITS ---
Subjective Subjective Jennifer was seen on team rounds today. Afebrile VSS -blood pressure is well-controlled and she denies lightheadedness. Maintaining appropriate oxygen saturation on RA Oral intake - FOOD good FLUIDS fair Discussed with nursing - no problems that need addressed Reviewed the THERAPY notes Medication list reviewed. She tolerated iron sucrose 100 mg without any adverse effects. Will order 2 additional doses and continue ferrous sulfate and Vitamin C. Denies restless leg. She is complaining of some nausea today and took Phenergan. 2 bowel movements this morning. She had 1 bowel movement yesterday. Denies restless leg. No lightheadedness. No vomiting. No CP, palpitations, dysuria, calf tenderness. Objective Data Objective Data Vital Signs: Vital Signs Temp Pulse Resp BP Pulse Ox O2 Del Method O2 Flow Rate 97.5 F L 69 16 103/48 L 94 Room Air 2 09/02/24 06:00 09/02/24 06:00 09/02/24 06:00 09/02/24 06:00 09/02/24 06:00 09/02/24 09:19 09/01/24 05:00 FiO2 21 08/30/24 21:37 Oxygen Flow Rate (L/min) 2 Oxygen Delivery Method Room Air Weight: 244 lb 14.937 oz Body Mass Index (BMI) 35.1 Intake & Output: Intake and Output for Last 24 Hours 08/31/24 09/01/24 09/02/24 23:59 23:59 23:59 Intake Total 1254.75 / 1254.75 1270 / 1270 500 / 500 Balance 1254.75 / 1254.75 1270 / 1270 500 / 500 Lab / Micro Data 09/03/24 06:49 09/03/24 06:41 Physical Exam Const oriented x3 and no apparent distress General Appearance: cooperative Resp normal respiratory effort, normal air movement and clear to auscultation bilaterally Effort and Inspection: Negative for tachypneic Cardio regular rate, regular rhythm and no gallops Cardio Narrative: No ectopy GI normal to inspection, nondistended, normoactive bowel sounds, soft to palpation and non-tender Extremity no calf tenderness General Extremity: Negative for edema Assessment & Plan Assessment/Plan (1) Physical debility: (2) 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 Continue therapy 2. Decrease ropinirole to twice daily at 0700 and 2100. the goal is to taper this off. RLS related to untreated JANNETH and iron deficiency. She takes Gabapentin for radular pain and this should also treat RLS. 3. Recheck lab in the AM 4. sleep study at [place] from rehab. Will need to go home with O2 for sleeping. Repeat an overnight trending pulse ox prior to DC. 5. Iron sucrose 200 mg daily x 2 doses and then continue ferrous sulfate with vitamin C. Charges/Coding Visit Charges Inpatient E&M: 33420 Subs Hosp L2
--- NOTE | 2024-09-02 13:18 | CASEMGMT ---
Social Work IDT met with patient at bedside, then dtr via conference call for Team meeting. Discussed patient's progress in PT/OT/SN/MD. Educated to MMO CM insurance with [employer] 09/09 and continued stay is not guaranteed with each review and advanced notice for DC is not required. Pt is progressing well. Pt's goal is to return home with . SW educated to HHC vs OP therapy and any DME needs. SW will continue to follow for DC planning. Demetra العراقي [employer] OPERATOR [employer] BU[employer]DER
[2024-09-02] MEDS: Sodium Ferric Gluconat 250 MG in 0.9% Normal Saline 250 ML 135 MG IV (13:33)
[2024-09-02] MEDS: 0.9% Saline Lock 10 ML Syringe IV (13:39)
[2024-09-02 18:00] VITALS: BP 108/45; PULSE 65; RESP 16; TEMP 36.4; O2SAT 94
[2024-09-02 22:18] VITALS: BP 117/59; PULSE 65
[2024-09-02] MEDS: Latanoprost 0.005% 1 Bottle 1 DRP EACH EYE (22:21)
[2024-09-03 06:00] VITALS: BP 108/54; PULSE 64; RESP 18; TEMP 36.6; O2SAT 94
[2024-09-03 06:49] VITALS: BMI 35.0
[2024-09-03 07:06] LABS: Hematocrit 40.3 % (37-47); Hemoglobin 12.5 g/dL (12.0-15.0)
[2024-09-03 08:09] LABS: Anion Gap 13 (5-15); BUN 8 mg/dL (4-19); BUN/Creat Ratio 13.8 RATIO (10-20); Calcium,Total 9.1 mg/dL (7.6-11.0); Carbon Dioxide 21.3 mmol/L (21.0-32.0); Chloride 102 mmol/L (98-108); Estimated Creatinine Clearance 89.58 ml/min (50-250); Glucose 107 mg/dL (70-99); Magnesium 1.9 mg/dL (1.5-2.2); Potassium 3.5 mmol/L (3.3-5.1)
[2024-09-03] MEDS: Sotalol Hydrochloride 80 MG Tablet PO ×2 (09:02→22:28)
[2024-09-03] MEDS: Magnesium Chloride 64 MG Delay Rel.Tablet 128 MG PO (09:03)
[2024-09-03] MEDS: Fluticasone 0.05% 1 SPRAY NASAL.SRY 2 SPRAY NASAL (09:03)
[2024-09-03] MEDS: Timolol 0.5% 5ML OPTH.BTL 1 DRP OPHTHALMIC (09:04)
--- NOTE | 2024-09-03 10:30 | PN_ITS ---
Subjective Subjective Afebrile Vital signs are stable and blood pressure is well-controlled. He had a total of 3 bowel movements yesterday and has had 2 today. No bowel movements at night. Suspect the loose stool is due to IBS and no to Crohn's. May also be related to ropinirole. All lab drawn this morning was personally reviewed. Hemoglobin is within normal limits at 12.5. Sodium is 136 and the potassium is 3.5. BUN is 8 and a creatinine is stable at 0.58. Calcium is 9.8 and urinary magnesium is 1.9. Abi tells me that she had some RLS sx last night. She denies cephalgia, lightheadedness, chest pain, shortness of breath, abdominal pain, dysuria and calf tenderness. She tends to have loose stool early in the morning and then no bowel movements until the following day. Objective Data Objective Data Vital Signs: Vital Signs Temp Pulse Resp BP Pulse Ox O2 Del Method O2 Flow Rate 97.8 F 64 18 108/54 L 94 Room Air 2 09/03/24 06:00 09/03/24 06:00 09/03/24 06:00 09/03/24 06:00 09/03/24 06:00 09/03/24 06:00 09/01/24 05:00 FiO2 21 08/30/24 21:37 Oxygen Flow Rate (L/min) 2 Oxygen Delivery Method Room Air Weight: 244 lb 11.41 oz Body Mass Index (BMI) 35.0 Intake & Output: Intake and Output for Last 24 Hours 09/01/24 09/02/24 09/03/24 23:59 23:59 23:59 Intake Total 1270 / 1270 1550 / 1950 640 / 640 Output Total 350 / 650 1000 / 1000 Balance 1270 / 1270 1200 / 1300 -360 / -360 Lab / Micro Data 09/03/24 06:49 09/03/24 06:41 Labs: Laboratory Results - last 24 hr 09/03/24 06:41: Sodium 136, Potassium 3.5, Chloride 102, Carbon Dioxide 21.3, Anion Gap 13, BUN 8, Creatinine 0.58 L, Estim Creat Clear Calc 89.58, Est GFR (MDRD) Non-Af 98, BUN/Creatinine Ratio 13.8, Glucose 107 H, Calcium 9.1, Magnesium 1.9 09/03/24 06:49: Hgb 12.5, Hct 40.3 Physical Exam Const oriented x3 and no apparent distress General Appearance: cooperative Resp normal respiratory effort, normal air movement and clear to auscultation bilaterally Effort and Inspection: Negative for tachypneic Cardio regular rate, regular rhythm and no gallops Cardio Narrative: No ectopy GI normal to inspection, nondistended, normoactive bowel sounds, soft to palpation and non-tender Extremity no calf tenderness General Extremity: Negative for edema Psych Psych Narrative: appears more rested and is not fidgety today. 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 Continue with ropinirole 0.25 mg at at bedtime. If she continues to complain RLS symptoms at night (she is not having any RLS during the day) we will DC ropinirole and increase gabapentin at at bedtime. I suspect the ropinirole has been contributing to chronic nausea as this is much better since we have been tapering ropinirole off. 3. We discussed the loose stool and since she is only having 2 bowel movements early in the day and she has no bowel movements at night I suspect this is due to irritable bowel syndrome rather than Crohn's disease. She admits to feeling anxious and she has had panic attacks in the past that were incapacitating. Wellbutrin has been been discontinued because it exacerbates anxiety and a lot of people and also contributes to insomnia. She is agreeable to a trial of sertraline. Will start 50 mg daily today. Charges/Coding Visit Charges Inpatient E&M: 12032 Subs Hosp L1
[2024-09-03 18:00] VITALS: BP 127/59; PULSE 68; RESP 16; TEMP 36.6; O2SAT 94
[2024-09-03 22:00] VITALS: PULSE 69; O2SAT 97
[2024-09-03 22:25] VITALS: BP 131/51; PULSE 69; O2SAT 97
[2024-09-03] MEDS: Latanoprost 0.005% 1 Bottle 1 DRP EACH EYE (22:28)
[2024-09-04 00:45] VITALS: PULSE 68; O2SAT 97
[2024-09-04 06:00] VITALS: BP 126/69; PULSE 70; RESP 16; TEMP 36.9; O2SAT 96
[2024-09-04] MEDS: Sotalol Hydrochloride 80 MG Tablet PO ×2 (08:03→20:41)
[2024-09-04] MEDS: Magnesium Chloride 64 MG Delay Rel.Tablet 128 MG PO (08:03)
[2024-09-04] MEDS: Timolol 0.5% 5ML OPTH.BTL 1 DRP OPHTHALMIC (08:03)
[2024-09-04] MEDS: Fluticasone 0.05% 1 SPRAY NASAL.SRY 2 SPRAY NASAL (08:04)
[2024-09-04 17:44] VITALS: BP 120/49; PULSE 63; RESP 16; TEMP 36.4; O2SAT 93
[2024-09-04] MEDS: Latanoprost 0.005% 1 Bottle 1 DRP EACH EYE (20:40)
[2024-09-04] MEDS: 0.9% Saline Lock 10 ML Syringe IV (20:41)
[2024-09-05 06:00] VITALS: BP 103/45; PULSE 60; RESP 18; TEMP 36.6; O2SAT 98
[2024-09-05] MEDS: Magnesium Chloride 64 MG Delay Rel.Tablet 128 MG PO (07:43)
[2024-09-05] MEDS: Sotalol Hydrochloride 80 MG Tablet PO ×2 (07:43→21:10)
[2024-09-05] MEDS: Fluticasone 0.05% 1 SPRAY NASAL.SRY 2 SPRAY NASAL (07:44)
[2024-09-05] MEDS: Timolol 0.5% 5ML OPTH.BTL 1 DRP OPHTHALMIC (07:44)
[2024-09-05 07:55] VITALS: O2SAT 98
[2024-09-05 17:15] VITALS: BP 113/59; PULSE 68; RESP 16; TEMP 36.9; O2SAT 93
[2024-09-05] MEDS: Latanoprost 0.005% 1 Bottle 1 DRP EACH EYE (21:10)
[2024-09-05 21:19] VITALS: BP 113/59; PULSE 61; RESP 16; O2SAT 93
[2024-09-05 22:00] VITALS: PULSE 64; RESP 18; O2SAT 93
[2024-09-06 06:42] VITALS: BP 140/60; PULSE 60; RESP 16; TEMP 37; O2SAT 2
[2024-09-06] MEDS: Magnesium Chloride 64 MG Delay Rel.Tablet 128 MG PO (07:53)
[2024-09-06] MEDS: Fluticasone 0.05% 1 SPRAY NASAL.SRY 2 SPRAY NASAL (07:53)
[2024-09-06] MEDS: Timolol 0.5% 5ML OPTH.BTL 1 DRP OPHTHALMIC (07:54)
[2024-09-06] MEDS: Sotalol Hydrochloride 80 MG Tablet PO ×2 (07:54→21:04)
--- NOTE | 2024-09-06 09:49 | PN_ITS ---
Subjective Subjective Afebrile VSS - Maintaining appropriate oxygen saturation on RA Oral intake - FOOD good FLUIDS I&O not accurate for 09/05 Discussed with nursing - no problems that need addressed Reviewed the THERAPY notes Medication list reviewed. TElls me that only her RLE was restless last night. She got 5 mg of Oxycodone and Tylenol and in about 45 minutes the restlessness had resolved and she slept well for the rest of the night. She is wearing oxygen even when napping now. Does not feel so tired during the day and less napping. Very alert this morning. Denies cephalgia, lightheadedness, chest pain, palpitations, nausea (m,uch improved with the discontinuation of Ropinirole. 2 BM's yesterday.......none at night. Denies abd pain. Not having RLS sx during the day. Objective Data Objective Data Vital Signs: Vital Signs Temp Pulse Resp BP Pulse Ox O2 Del Method O2 Flow Rate 98.6 F 60 16 140/60 H 2 Nasal Cannula 2 09/06/24 06:42 09/06/24 06:42 09/06/24 06:42 09/06/24 06:42 09/06/24 06:42 09/06/24 06:42 09/05/24 21:19 FiO2 21 08/30/24 21:37 Oxygen Flow Rate (L/min) 2 Oxygen Delivery Method Nasal Cannula Weight: 244 lb 11.41 oz Body Mass Index (BMI) 35.0 Intake & Output: Intake and Output for Last 24 Hours 09/04/24 09/05/24 09/06/24 23:59 23:59 23:59 Intake Total 1950 / 1950 750 / 750 200 / 200 Output Total 700 / 700 200 / 200 Balance 1250 / 1250 550 / 550 200 / 200 Lab / Micro Data 09/03/24 06:49 09/03/24 06:41 Physical Exam Const oriented x3 and no apparent distress General Appearance: cooperative Resp normal respiratory effort, normal air movement and clear to auscultation bilaterally Effort and Inspection: Negative for tachypneic Cardio regular rate, regular rhythm and no gallops Cardio Narrative: No ectopy GI normal to inspection, nondistended, normoactive bowel sounds, soft to palpation and non-tender Extremity no calf tenderness General Extremity: Negative for edema Skin Wound Narrative: The cranial incision is intact with no dehiscence. There is no erythema and no discharge from the incision. Ngozi-incisional swelling has significantly decreased. Psych Psych Narrative: appears more rested and is not fidgety today. Tolerating Sertraline for anxiety/depression. 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 Continue therapy 2. No changes to the drug regimen today 3. Check a potassium and folate in the a.m. Charges/Coding Visit Charges Inpatient E&M: 80091 Subs Hosp L1
[2024-09-06 18:00] VITALS: BP 123/66; PULSE 68; RESP 16; TEMP 36.6; O2SAT 94
[2024-09-06 21:00] VITALS: PULSE 68; RESP 16; O2SAT 94
[2024-09-06] MEDS: Latanoprost 0.005% 1 Bottle 1 DRP EACH EYE (21:05)
[2024-09-07 06:00] VITALS: BP 115/58; PULSE 63; RESP 16; TEMP 35.7; O2SAT 95
[2024-09-07] MEDS: Fluticasone 0.05% 1 SPRAY NASAL.SRY 2 SPRAY NASAL (07:37)
[2024-09-07] MEDS: Timolol 0.5% 5ML OPTH.BTL 1 DRP OPHTHALMIC (07:37)
[2024-09-07 08:46] LABS: Potassium 3.4 mmol/L (3.3-5.1)
[2024-09-07] MEDS: Magnesium Chloride 64 MG Delay Rel.Tablet 128 MG PO (08:58)
[2024-09-07] MEDS: Sotalol Hydrochloride 80 MG Tablet PO ×2 (08:58→20:18)
--- NOTE | 2024-09-07 10:15 | PCM.PROGNOTE ---
Subjective Subjective Afebrile VSS - Maintaining appropriate oxygen saturation on RA Oral intake - FOOD good FLUIDS good Discussed with nursing - no problems that need addressed Reviewed the THERAPY notes Medication list reviewed. Had stiffness, aching in her legs last night and to her they felt restless. She got up and walked and that helped and she had an Oxycodone. I suspect this restlessness is actually due to increased activity than she has been doing at home, fatigue and stiffness and not due to RLS. It resolved with oxycodone. She is also c/o nausea and diarrhea....mostly in the AM......she does not wake up with this at night. I suspect this is also related to anxiety. She admits to being anxious about getting home....missing her animals, getting out of rehab. She denies lightheadedness, chest pain, cough, shortness of breath, palpitations, calf pain, dysuria. Objective Data Objective Data Vital Signs: Vital Signs Temp Pulse Resp BP Pulse Ox O2 Del Method O2 Flow Rate 96.2 F L 63 16 115/58 L 95 Room Air 2 09/07/24 06:00 09/07/24 06:00 09/07/24 06:00 09/07/24 06:00 09/07/24 06:00 09/07/24 07:20 09/05/24 21:19 FiO2 21 08/30/24 21:37 Oxygen Flow Rate (L/min) 2 Oxygen Delivery Method Room Air Weight: 244 lb 11.41 oz Body Mass Index (BMI) 35.0 Intake & Output: Intake and Output for Last 24 Hours 09/05/24 09/06/24 09/07/24 23:59 23:59 23:59 Intake Total 750 / 750 1680 / 1680 500 / 500 Output Total 200 / 200 700 / 700 300 / 300 Balance 550 / 550 980 / 980 200 / 200 Lab / Micro Data 09/03/24 06:49 09/07/24 07:29 Labs: Laboratory Results - last 24 hr 09/07/24 07:29: Potassium 3.4 Physical Exam Const oriented x3 and no apparent distress General Appearance: cooperative Resp normal respiratory effort, normal air movement and clear to auscultation bilaterally Effort and Inspection: Negative for tachypneic Cardio regular rate, regular rhythm and no gallops Cardio Narrative: No ectopy GI normal to inspection, nondistended, normoactive bowel sounds, soft to palpation and non-tender Extremity no calf tenderness General Extremity: Negative for edema Skin Wound Narrative: The cranial incision is intact with no dehiscence. There is no erythema and no discharge from the incision. Ngozi-incisional swelling has significantly decreased. 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 Continue therapy 2. Supplement potassium 3. Start Xanax PRN while Sertraline is being initiated. I think the restless leg that starts around 9 at night is actually related more to fatigue, increased activity during the day and anxiety (she is not distracted with PT or other therapies at 9 PM at night). She has been on Xanax in the past.......this is temporary until we can increase the sertraline. 4. Recheck a BMP in a few days. 5. Discuss follow up with behavioral health post DC from rehab. Charges/Coding Visit Charges Inpatient E&M: 02230 [facility] Hosp L1
[2024-09-07] MEDS: Potassium Chloride Oral Tablet 20 MEQ 40 MEQ PO (11:25)
[2024-09-07 17:13] VITALS: BP 126/65; PULSE 66; RESP 17; TEMP 36.6; O2SAT 93
[2024-09-07 19:30] VITALS: PULSE 66; RESP 17; O2SAT 93
[2024-09-07] MEDS: Latanoprost 0.005% 1 Bottle 1 DRP EACH EYE (20:19)
[2024-09-08 05:59] VITALS: BP 118/61; PULSE 64; RESP 16; TEMP 36.2; O2SAT 94
[2024-09-08] MEDS: Magnesium Chloride 64 MG Delay Rel.Tablet 128 MG PO (07:30)
[2024-09-08] MEDS: Fluticasone 0.05% 1 SPRAY NASAL.SRY 2 SPRAY NASAL (07:30)
[2024-09-08] MEDS: Timolol 0.5% 5ML OPTH.BTL 1 DRP OPHTHALMIC (07:30)
[2024-09-08] MEDS: Sotalol Hydrochloride 80 MG Tablet PO ×2 (07:31→20:39)
[2024-09-08] MEDS: Potassium Chloride Oral Tablet 10 MEQ PO (07:38)
[2024-09-08 15:08] LABS: Folate, Hemolysate Test 499.0 ng/mL (Not Estab.); Folate, RBC (Hct) Test 39.9 % (34.0-46.6); Folates, RBC Test 1251 ng/mL (>498)
[2024-09-08 18:00] VITALS: BP 108/38; PULSE 62; RESP 17; TEMP 36.4; O2SAT 97
[2024-09-08 20:35] VITALS: PULSE 62; RESP 17; O2SAT 97
[2024-09-08] MEDS: Latanoprost 0.005% 1 Bottle 1 DRP EACH EYE (20:38)
[2024-09-09 05:38] VITALS: BP 124/67; PULSE 63; RESP 16; TEMP 37; O2SAT 96
[2024-09-09] MEDS: Magnesium Chloride 64 MG Delay Rel.Tablet 128 MG PO (08:16)
[2024-09-09] MEDS: Potassium Chloride Oral Tablet 10 MEQ PO (08:16)
[2024-09-09] MEDS: Sotalol Hydrochloride 80 MG Tablet PO ×2 (08:16→21:00)
[2024-09-09] MEDS: Timolol 0.5% 5ML OPTH.BTL 1 DRP OPHTHALMIC (08:17)
[2024-09-09] MEDS: Fluticasone 0.05% 1 SPRAY NASAL.SRY 2 SPRAY NASAL (08:17)
[2024-09-09 10:00] VITALS: PULSE 60; RESP 16; O2SAT 95
--- NOTE | 2024-09-09 10:18 | PCM.PROGNOTE ---
Subjective Subjective Сергей was seen on team rounds today. Afebrile VSS -blood pressure is well-controlled. Maintaining appropriate oxygen saturation on RA Oral intake - FOOD good FLUIDS good Had 3 BM's yesterday.....she generally takes 2 mg of Imodium with each BM. She has not had any BM's yet today.......she has usually had 2 by this time of the day. Discussed with nursing - no problems that need addressed Reviewed the THERAPY notes Medication list reviewed. Took and Oxycodone around 8 last night and went to sleep about 10:30. Slept through the night and awoke feeling refreshed today. Denies nausea. No TADEO, lightheadedness, CP, SOB, palpitations, N/V/dysuria or calf pain. It is not really restless leg she is having at night......she has chronic back pain and radicular pain and she has been doing 3 hours of therapy daily and the pain is more likely than not due to increased activity rather than restless leg. Did not have to take a Xanax for the past 24H....has only taken 1 since it was ordered. She is very alert during the day and not frequently napping since the oxygen was ordered anytime she was sleeping. Objective Data Objective Data Vital Signs: Vital Signs Temp Pulse Resp BP Pulse Ox O2 Del Method O2 Flow Rate 98.6 F 63 16 124/67 H 96 Nasal Cannula 2 09/09/24 05:38 09/09/24 05:38 09/09/24 05:38 09/09/24 05:38 09/09/24 05:38 09/09/24 05:38 09/09/24 06:32 FiO2 21 08/30/24 21:37 Oxygen Flow Rate (L/min) 2 Oxygen Delivery Method Nasal Cannula Weight: 244 lb 11.41 oz Body Mass Index (BMI) 35.0 Intake & Output: Intake and Output for Last 24 Hours 09/07/24 09/08/24 09/09/24 23:59 23:59 23:59 Intake Total 1140 / 1140 1840 / 1840 760 / 760 Output Total 600 / 600 200 / 200 Balance 540 / 540 1640 / 1640 760 / 760 Lab / Micro Data 09/03/24 06:49 09/07/24 07:29 Labs: Laboratory Results - last 24 hr 09/07/24 07:29: RBC Folate Hemolysate 499.0, RBC Folate 1251, Hematocrit 39.9 Physical Exam Const alert, oriented x3 and no apparent distress General Appearance: cooperative Neck supple Resp clear to auscultation bilaterally Cardio regular rate, regular rhythm and no gallops GI normal to inspection, nondistended, normoactive bowel sounds, soft to palpation and non-tender GI Narrative: Denies nausea and abdominal pain today. Has had no bowel movements today yet. Extremity no calf tenderness General Extremity: Negative for edema Skin Skin Narrative: Cranial incision is intact with no dehiscence, no shirin-incisional erythema and no discharge. Psych cooperative Psych Narrative: Less anxious. Somatic complaints have diminished significantly since we have discontinued Wellbutrin and instituted an SSRI and as needed Xanax. I suspect the Wellbutrin was exacerbating the anxiety. She also has a hx of panic attacks in the past. Making good eye contact with me. Interacting well with staff. Talkative, pleasant, engaged in our conversations. 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 PLAN: Plan 1. Continue therapy 2. DC ropinirole at at bedtime 3. Sertraline was increased to 100 mg daily today 4. We will need an outpatient sleep study at discharge or following discharge from rehab 5. Will need an overnight trending pulse ox the night before planned discharge to qualify her for home oxygen until she can be treated for suspected JANNETH we have been able to discontinue ropinirole while she has been on rehab. Ropinirole likely contributed to chronic nausea and diarrhea. If may be very difficult to arrange home O2 over the holiday weekend if she gets cut. She is doing well and will likely be ready for DC early next week. 6. We have treated her for iron deficiency which contributes to restless leg while she is on rehab. 7. I feel the sertraline is helping with control of anxiety. Will continue Xanax as needed for breakthrough anxiety. Recommend follow-up with behavioral health postdischarge from rehab. 8. Craniotomy incision is intact with no dehiscence, no discharge and no shirin-incisional erythema. She denies headache. No lightheadedness. Charges/Coding Visit Charges Inpatient E&M: 65790 Subs Hosp L2
--- NOTE | 2024-09-09 12:25 | DCINST_ITS ---
Discharge Instructions Diet Discharge Diet: - (Low-fat, low-salt) DC O2, CPAP, BIPAP needs Home O2 Discharge instructions: Yes Type of respiratory needs?: Oxygen Oxygen frequency: With Sleeping Oxygen liters per minute when sleepin Dressing / Incision Discharge Activity: May Not Drive and - (use a cane or a Walker for ambulation. ) Weight Bearing Status: Full weight bearing Keep extremity elevated above heart level: Legs Dressing / Incision Call your doctor if your incision/area has: Continuous Slow Oozing, Sudden Increased Bleeding, Increased Pain/ Swelling, Increased Redness, Foul Smelling Discharge and Swelling at the incision site Call your doctor if you observe: Fever of 101 or Higher, Shortness of breath, Dizziness, Fainting spells, Swelling in the ankles, Chest pain, Increased palpitations (irregular heartbeat), Calf discomfort, Uncontrolled pain and - (STROKE symptoms: facial droop, slurred speech, inability to get words out, weakness on 1 side of the body and not the other, numbness on 1 side of the body and not the other, inability to maintain your balance sitting or standing, vertigo. ) Suture Line Care: Avoid Pulling/Pushing and Avoid Pinching/Bending Cleanse incision/area with: Soap & Water Additional Dressing/Incision Instructions:: No dressing is need. Leave the incision open to air. Follow Up Care Please Follow Up With: Matthew Wallace When: a message was left with the office to call you with and appt. You should be seen within 7-10 days post discharge from rehab. Other appts need to be made.....listed at the end of the discharge instructions. Test Results: Test results from this visit will be discussed in further detail at your follow- up appointment, if applicable. 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 I believe the restless leg was due to untreated sleep apnea and iron deficiency. I also believe the Ropinirole was causing augmentation and making things worse. I believe the Ropinirole was contributing to chronic nausea, lightheadedness, fatigue and headache. Since the ropinirole has been decreased and we have been applying oxygen anytime you are sleeping and we have given you IV iron the restless less is much better. Actually I think the soreness/stiffness and pain in the legs you are having at the end of the day are due to your chronic back problems and the increased amount of exercise you have been doing. I think it would be a good idea to continue to use Oxycodone in the evening to treat this. since the oxygen you are sleeping good at night and you are very alert during the day and taking less naps. The sleep lab will call you to schedule a sleep study and we have ordered oxygen for you to have at home anytime you are sleeping. 2. Outwardly you do not appear very anxious but, you have a lot of anxiety and you have even been treated for panic attacks in the past. Wellbutrin is a good antidepressant but, it does not treat anxiety and in fact it can cause increased anxiety, insomnia and headaches. WE have discontinued Wellbutrin and started you a medication called Sertraline that treats both anxiety and depression. It takes this medication 3-4 weeks to get the full effect. In the meantime I am g iving you a prescription for Xanax (also called alprazolam) to take every 4-6 hours as needed for anxiety/panic attacks. You have not had to take much of this while on rehab. I think the diarrhea has more to do with irritable bowel syndrome (IBS) rather than Crohn's. Anxiety increase IBS sx. With IBS the diarrhea happens usually only during the day and does not wake you up at night. With IBS you will not have mucous or blood in the stool. I always think medication and counselling work much better together than either alone. I think you may benefit from follow up with behavioral health at Discharge. 3. I discontinued the hydrochlorothiazide (HCTZ) that you were taking. Your potassium and magnesium have both been low despite discontinuing hydrochlorothiazide. You will now take a potassium supplement and a magnesium supplement. We should recheck your lab in approximately 1 week to make sure that potassium/magnesium are now within normal limits. The swelling in your legs is very well-controlled with compression stockings. Swelling is always worse in the summer because it is hot and this leads to dilation of the veins and increased swelling in the legs, especially if you are not elevating them. Watch your salt intake because a high salt diet will increase peripheral edema. Diuretics generally only help once you are dehydrated and diuretics also decrease potassium and magnesium and low potassium and magnesium can lead to a problem with the rhythm of your heart called atrial fibrillation. Losing weight will help a lot with swollen ankles and it will also help with the chronic back pain. 4. You have done very well in therapy and we have all appreciated your hard work and your willingness to do whatever we have asked of you.....with a smile on your face. If you or any of your family have questions after you leave rehab please do not hesitate to call me. OFFICE: [phone] CELL: [phone] NURSES STATION ON REHAB: [phone] Discharge Orders/Prescriptions Prescriptions: New acetaminophen 325 mg Tablet 650 mg PO Q6H PRN PRN (Reason: Pain Score 1-10) Qty: 100 0RF alprazolam 0.25 mg Tablet 0.25 mg PO Q6H PRN PRN (Reason: Anxiety/Restlessness/Sleep) 7 Days Qty: 15 0RF loperamide 2 mg Capsule 2 mg PO Q4H PRN PRN (Reason: diarrhea) Qty: 1 0RF fluticasone propionate 50 mcg/actuation [place],Suspension 2 spray NASAL DAILY Qty: 1 0RF magnesium chloride [Mag 64] 64 mg Tablet,Delayed Release (Dr/Ec) 128 mg PO DAILY Qty: 30 0RF sertraline 100 mg Tablet 100 mg PO DAILY Qty: 30 0RF potassium chloride 10 mEq Tablet,Er Particles/Crystals 10 meq PO DAILYCM Qty: 30 0RF Continued pantoprazole [Protonix] 40 mg tablet,delayed release (DR/EC) 40 mg PO DAILY cephalexin 250 mg tablet 250 mg PO QHS primidone 50 mg tablet 100 mg PO BID hyoscyamine sulfate 0.125 mg tablet,disintegrating 0.125 mg PO Q6 PRN (Reason: nausea/vomiting) clotrimazole 1 % cream 1 applic topical 0600,2200 PRN (Reason: Skin irritation) Rx Instructions: Abdominal folds betamethasone dipropionate 0.05 % ointment 1 applic topical QDAY PRN (Reason: skin irritation) Rx Instructions: Apply to hands clobetasol 0.05 % cream 1 applic topical 0600,2200 PRN (Reason: Skin irritation) Rx Instructions: Apply to vaginal area timolol maleate 0.5 % drops 1 drp ophthalmic (eye) DAILY Rx Instructions: Apply to Left eye latanoprost 1 DROP bottle 1 drp EACH EYE QHS promethazine 25 mg Tablet 25 mg PO Q6H PRN (Reason: Nausea) gabapentin 400 mg capsule 400 mg PO TID Qty: 90 0RF ferrous sulfate 325 mg (65 mg iron) tablet,delayed release (DR/EC) 325 mg PO DAILY Qty: 1 0RF Rx Instructions: Take this with 1,000 mg of Vitamin C. TAke with a meal. oxycodone 5 mg tablet 5 mg PO Q6H PRN (Reason: pain) 7 Days Qty: 15 0RF sotalol 80 mg tablet 80 mg PO BID Qty: 180 3RF Discontinued ropinirole 0.5 mg tablet 0.5 mg PO TID bupropion HCl 150 mg tablet extended release 24 hr 150 mg PO QDAY hydrochlorothiazide 25 MG tablet 25 mg PO DAILY enoxaparin [Lovenox] 40 mg/0.4 mL syringe 40 mg subcut DAILY Referrals / Follow Up: sleep study [Other] (Hospital will call you to set up appointment ) Matthew Wallace DO [Primary Care Provider] - (message left with office) Jayson Baker DO [Med Staff - [employer]] - (message left for office to call and make appointment ) Jenn Avila NP-C [Non-Staff] - 09/21/24 10:00 am Disposition Disposition (needs filled in before D/C Order can be placed): Home, Self Care
--- NOTE | 2024-09-09 13:35 | CASEMGMT ---
Team meeting held with pt and pt's present. PT/OT/SN provided updates on pt progress in the rehab unit. Pt is progressing well with with therapy. KRUPA updated that insurance update was due today and insurance has issued a decision to end services with last covered day today and discharge tomorrow. Pt is agreeable with dc and plans to return home with her spouse. Spouse does work but pt's dgt works from home and can be with the pt to assist if needed. Team is recommending out patient PT at time of discharge and pt is agreeable. PT would like to utilize [facility] and the hospital van. SW to follow up for discharge planning. ENRIQUETA Paulino
--- NOTE | 2024-09-09 16:30 | CASEMGMT ---
Social Work Pt has been issued a last covered day by insurance of today with planned discharge tomorrow 09/10/24. Pt and spouse are agreeable to dc and feel ready for pt to return home. Pt requesting outpt PT at [facility] with the use of the hospital van. Referral faxed to [facility] to follow up with pt to set appointment. Home oxygen at night is required. Home O2 set up through [employer] with concentrator to be delivered to the home today. Pt has all needed DME. No other dc needs. Discharge Date: 09/10/24 Discharge Disposition: Home with spouse and outpatient PT at [facility] ENRIQUETA Paulino
--- NOTE | 2024-09-09 16:55 | PCM.DC.SUM ---
Providers Date of Admission: 08/29/24 Date of Discharge: 09/10/24 Primary Care Physician: Dr. 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 (4) Essential tremor: Status: Chronic Code(s): G25.0 - Essential tremor Plan: Will continue Mysoline. (5) Paroxysmal atrial fibrillation: Status: Chronic Code(s): I48.0 - Paroxysmal atrial fibrillation Plan: Will continue to follow with [facility]. She was in the ED a few days prior to the intracerebral hemorrhage for atrial fibrillation with rapid ventricular response. The episode was prolonged but she spontaneously converted while in the emergency department. She is on metoprolol. She is not on an anticoagulant. (6) Essential (primary) hypertension: Status: Chronic Code(s): I10 - Essential (primary) hypertension Plan: BP is well controlled. (7) Hyperlipidemia: Status: Chronic Code(s): E78.5 - Hyperlipidemia, unspecified Qualifiers: Hyperlipidemia type: pure hypercholesterolemia Qualified Code(s): E78.00 - Pure hypercholesterolemia, unspecified; E78.0 - Pure hypercholesterolemia Plan: Not on a statin. Defer treatment to Dr. Wallace. (8) Anxiety and depression: Status: Chronic Code(s): F41.9 - Anxiety disorder, unspecified; F32.9 - Major depressive disorder, single episode, unspecified Plan: Predominantly anxious. She has a hx of panic attacks in the past and was on Benzo's. Wellbutrin was discontinued and she was started on Sertraline and is tolerating well with less anxiety. Now sleeping well at night. RAre use of low dose PRN Xanax. Is agreeable to following up with behavioral health for counselling. (9) Restless legs: Status: Chronic Code(s): G25.81 - Restless legs syndrome Plan: Ropinirole was weaned off due to chronic nausea, diarrhea and fatigue. Iron studies revealed iron deficiency and she received IV iron sucrose. She is chronically on a PPI and even though she takes the oral iron supplement with orange juice she may not be absorbing the iron. An overnight trending pulse ox was done and the O2 sat was <89% 75% of the time she was monitored. She was placed on supplemental oxygen at night and since then the restless leg has markedly improved. She has been c/o R leg pain at the end of the day and she will relate this to restless leg but, it resolves with Oxycodone. I suspect the pain is related to chronic low back pain with radicular pain that has been exacerbated because she has been doing 3 hours of therapy daily and not due to RLS. She will continue to follow with Dr. Hernandez post DC from rehab. (10) Hypoxemia associated with sleep: Status: Chronic Code(s): G47.36 - Sleep related hypoventilation in conditions classified elsewhere Plan: Overnight trending pulse ox was repeated the night prior to DC from rehab and it continues to show hypoxemia with sleep. 47.91% of the time the pulse ox was 89 or less and she had 16 desaturations lasting 60 sec.......the longest desauration event lasted 18 minutes. (11) JANNETH (obstructive sleep apnea): Status: Suspected Code(s): G47.33 - Obstructive sleep apnea (adult) (pediatric) Plan: arranged for home O2 at DC. 2 LPM. The sleep lab has an order for a sleep study and all documentation for the test has been completed. The sleep lab will contact her to schedule a formal sleep study and then she will follow up with pulmonary medicine for treatment. (12) Anxiety: Status: Chronic Code(s): F41.9 - Anxiety disorder, unspecified Plan: Chronic long standing anxiety. Recommend psychotherapy......pt agreeable to referral to behavioral health. Referral was made. Started on Sertraline at admission to rehab. she did not feel the Wellbutrin was helping and she had chronic TADEO's. Wellbutrin does not treat anxiety and can actually increase anxiety. She is tolerating Sertraline well. No longer has chronic nausea. She is sleeping well. Rare use of Xanax 0.25 mg. TADEO's are much better. (13) Glaucoma: Status: Chronic Code(s): H40.9 - Unspecified glaucoma Qualifiers: Glaucoma type: unspecified Laterality: bilateral Qualified Code(s): H40.9 - Unspecified glaucoma (14) IBS (irritable bowel syndrome): Status: Chronic Code(s): K58.9 - Irritable bowel syndrome, unspecified Qualifiers: Irritable bowel syndrome type: with diarrhea Qualified Code(s): K58.0 - Irritable bowel syndrome with diarrhea Plan: Has had loose stool on rehab.......much less at the time of DC. Has had 0-2 BM's daily the 72 hours preceding DC from rehab. The diarrhea mostly occurs in the AM. She has not had any stools at night. She has not had any blood in the stool or mucous. This is most likely due to IBS and not to exacerbation of Crohn's dissease. (15) History of Crohn's disease: Status: Chronic Code(s): Z87.19 - Personal history of other diseases of the digestive system Plan: She will continue to follow with Dr. Brody. (16) Hypokalemia: Status: Acute Code(s): E87.6 - Hypokalemia Plan: Hypokalemia persisted even after the HCTZ was discontinued. She is being discharged on 10 mEq of potassium daily. Will need follow-up labs in 7 to 10 days. (17) Hypomagnesemia: Status: Chronic Code(s): E83.42 - Hypomagnesemia Plan: She was started on a magnesium supplement. Would like to keep the MAG at about 2 since she is known to have PAF. (18) Nodule of ear canal: Status: Acute Code(s): H61.899 - Other specified disorders of external ear, unspecified ear Qualifiers: Laterality: right Qualified Code(s): H61.891 - Other specified disorders of right external ear Plan: She also has a indeterminate R frontal bone lesion that mildly enhances with contrast. Plan 1. DC home on 09/10/24. 2. Supplemental oxygen when sleeping arranged by 2 LPM 3. She will follow up with the neurosurgeon, Dr. Wallace, Janeth HARRIS (cardiology for AF), Dr. Brody and behavioral Health 4. The sleep lab will contact her to arrange a time for the sleep study to be done. They will arrange an appt with pulmonary medicine to go over the results of the study and discuss treatment options. 5. She should have a BMP and MAG level in 1 week. A lab requisition was given to the patient and we requested the results be sent to Dr. Wallace. 6. Follow up with neurosurgery for the R frontal bone lesion and the nodule in the R auditory canal. Medications at Discharge Home Medications pantoprazole 40 mg tablet,delayed release (Protonix) 40 mg PO DAILY GERD 10/13/18 cephalexin 250 mg tablet 250 mg PO QHS Antibiotic 09/23/19 latanoprost 0.005 % eye drops 1 drp EACH EYE QHS eye drops 04/13/20 promethazine 25 mg tablet 25 mg PO Q6H PRN Nausea 08/24/20 betamethasone dipropionate 0.05 % topical ointment 1 applic topical QDAY PRN skin irritation 08/10/24 clobetasol 0.05 % topical cream 1 applic topical 0600,2200 PRN Skin irritation 08/10/24 clotrimazole 1 % topical cream 1 applic topical 0600,2200 PRN Skin irritation 08/10/24 hyoscyamine sulfate 0.125 mg disintegrating tablet 0.125 mg PO Q6 PRN nausea/vomiting 08/10/24 primidone 50 mg tablet 100 mg PO BID Essential tremors 08/10/24 timolol maleate 0.5 % eye drops 1 drp ophthalmic (eye) DAILY eye drops 08/10/24 sotalol 80 mg tablet 80 mg PO BID BP #180 TABLETS 08/17/24 acetaminophen 325 mg tablet 650 mg (2 x 325 mg) PO Q6H PRN PRN Pain Score 1-10 #100 tabs 09/09/24 alprazolam 0.25 mg tablet 0.25 mg PO Q6H PRN PRN Anxiety/Restlessness/Sleep 1 week #15 tabs 09/09/24 ferrous sulfate 325 mg (65 mg iron) tablet,delayed release 325 mg PO DAILY supplement #1 TAB 09/09/24 fluticasone propionate 50 mcg/actuation nasal spray,suspension 2 spray NASAL DAILY #1 BOTTLE 09/09/24 gabapentin 400 mg capsule 400 mg PO TID Nerve pain #90 caps 09/09/24 loperamide 2 mg capsule 2 mg PO Q4H PRN PRN diarrhea #1 cap 09/09/24 magnesium chloride 64 mg (magnesium chloride) tablet,delayed release (Mag 64) 128 mg (2 x 64 mg) PO DAILY #30 tabs 09/09/24 oxycodone 5 mg tablet 5 mg PO Q6H PRN pain 1 week #15 tabs 09/09/24 potassium chloride 10 mEq tablet,extended release(part/cryst) 10 meq PO DAILYCM #30 tabs 09/09/24 sertraline 100 mg tablet 100 mg PO DAILY #30 tabs 09/09/24 aspirin 81 mg tablet 81 mg PO DAILY #1 TAB 09/10/24 Hospital Course Operations - (craniectomy 08/20/24 for excision of AV fistula and drainage of intracerebral hematoma. ) Summary of Care Provided Minutes Spent on Discharge: 45 Hospital Course: AMANDA SANCHEZ, is a 69 YO F with a PMH of SVT, paroxysmal atrial fibrillation (not on anticoagulation), history of wide-complex tachycardia, coronary artery disease, Crohn's disease (follows with Dr. Brody), irritable bowel syndrome, essential tremor (on Mysoline and was referred to neurology by Dr. Wallace but, has not seen neurology yet) , resection of a meningioma in 2009, obesity, history of pulmonary embolism (unprovoked), RLS, HLD, GERD, iron deficiency, tobacco dependence in remission, hypertension, anxiety/depression (with hx of panic attacks in past) and glaucoma who presented to the emergency department at [facility] on 08/17/2024 complaining of numbness on the right side of her body. A stat noncontrast CT brain showed a left parietal intraparenchymal hemorrhage measuring up to 2.6 cm. Teleneurology was consulted and recommended transfer to [facility] for hemorrhagic stroke. They also recommended discussing with neurosurgery. CT was repeated at [facility] and demonstrated a left parietal hemorrhage measuring 2.4 cm x 1.9 cm x 2.5 cm without an underlying vascular malformation or aneurysm on CTA and with no midline shift. She was started on Keppra for seizure prophylaxis and an MRI of the brain was ordered. ASA was placed on hold. MRI of the brain on 08/18/2024 showed grossly stable size of the left parietal intraparenchymal hematoma with mild surrounding vasogenic edema with minimal local mass effect. There was an indeterminate right frontal bone lesion with mild associated contrast-enhancement and a small contrast-enhancing nodule in the right internal auditory canal suggestive of a small schwannoma. 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 She was taken to the OR on 08/20/2024 for resection of SM II AVF and evacuation of the hematoma. While in the hospital she was seen by PT/OT and ST. She was requiring MOD to total assist with ADL's and acute rehab was recommended at [place] from [facility]. She was transferred to the acute inpt rehab unit at [facility] on 08/29/24 for 3 hours of therapy daily to restore function/independence at or her level prior to the stroke. Amanda had many somatic complaints at presentation to rehab. She complained of chronic fatigue with the need to nap during the day, chronic headaches, chronic nausea, diarrhea and restless legs. She was taking both gabapentin and ropinirole. Iron studies were checked to rule out iron deficiency as the etiology of restless leg syndrome. She was iron deficient and she was given intravenous iron sucrose. She is on an oral iron supplement which she takes with orange juice but she is chronically on a PPI and still may not be able to absorb oral iron. Following iron sucrose we restarted ferrous sulfate with 1000 mg of ascorbic acid once daily with a meal. An overnight trending pulse ox was ordered looking for obstructive sleep apnea as etiology of restless leg. The overnight trending pulse ox showed that 74. For 1% of the time her pulse ox was 89% or less. She had 40 desaturation events lasting 60 seconds or longer. The longest desaturation event was 9 minutes and 48 seconds. She was started on oxygen supplementation at 2 L/min anytime she is sleeping. The restless leg symptoms improved greatly and the Ropinirole was weaned off. She c/o restless leg on in the evening but, it only involved the R leg and the symptoms were stiffness and muscle soreness. The sx resolved with Oxycodone and ambulation and then she could go to sleep and has been sleeping well through the night and awakening feeling refreshed in the AM. She has chronic back pain with radicular symptoms send she sees Dr. Hernandez for pain management. I suspect the pain in the right leg is secondary to chronic back pain/radicular pain and not due to restless leg. Somatic complaints are much less at DC from rehab. She was having loose stool but she only had diarrhea during the day and never woke up to have a bowel movement at night. She denies any mucus or blood in her stools and she did not have any significant abdominal pain. I suspect the loose stool was secondary to uncontrolled anxiety/irritable bowel syndrome. She had been taking Wellbutrin for anxiety/depression but Wellbutrin does not treat anxiety. She has a long history of anxiety and has had severe panic attacks in the past requiring benzodiazepines. Wellbutrin was discontinued and she was started on sertraline 50 mg daily. She tolerated this dose well and prior to discharge it was increased to 100 mg daily. At times she feels much more anxious and so Xanax was ordered as needed and she is taken only 2 doses since it was ordered. It is helpful when she does take it. The BM's have decreased. On 09/09/24 she had no BM's. Her chronic TADEO's have resolved. She has a good appetite and she is sleeping well at night. She denies felling depressed. She is much more alert during the day and not always napping. Potassium and mag were both low at admission. HCTZ was discontinued (she was taking this for leg edema due to venous insufficiency) and K and MAG were supplemented for a few days but, on follow up labs the Mag and K were both low after the supplementation was stopped. She was restarted on potassium chloride 10 mEq daily and magnesium chloride 128 mg daily. At discharge she was given a lab requisition to obtain a BMP and magnesium in 1 week with the results to go to Dr. Wallace. She has had no atrial fibrillation anytime I have examined her on rehab and she denies palpitations. Amanda did very well in rehab. Her modified [place] score has gone from 4 at admission to rehab to 2 at discharge. She is able to ascend/descend 816 steps with 1 handrail and a straight cane at standby assist. She has ambulated up to 600 feet on various surfaces using a straight cane at standby assist. She has been ambulating on the rehab unit with a straight cane independently with no loss of balance. She is independent with eating, grooming, dressing, bathing, toileting and toilet transfer. We recommend supervision with tub/shower transfer for at least 1 week postdischarge. Amanda was discharged from acute inpatient rehab on 09/10/2024 to her home. She will have outpatient physical therapy at [facility]. The sleep lab will contact her to arrange an appointment for an overnight sleep study in the sleep lab at [facility]. All the documentation has been completed and they have an order for the study. Messages were left with Dr. Wallace's office and behavioral health and we requested they call her to schedule an appointment. She has an appointment with Jenn Avila on 09/21/2024 at 10 AM and I assume this is for follow-up at [facility] with neurosurgery. We will defer follow-up of the right frontal bone lesion and the nodule in the right auditory canal to neurosurgery. All dheeraj have been removed from the craniectomy incision and the incision is intact with no dehiscence, no discharge, no shirin-incisional erythema and no significant swelling around the incision. She denies cephalgia. She will continue to follow-up with Dr. Brody for Crohn's disease and [facility] for cardiology/A-fib. Physical Exam Const alert, oriented x3 and no apparent distress Constitutional Narrative: Making good eye contact, appropriate General Appearance: cooperative, comfortable and well kempt HEENT HEENT Narrative: Very dry MM. Scalp incision is healing well. There is no dehiscence, no discharge, no shirin-incisional erythema and no significant swelling. She had no pain with palpation around the incision and she denied cephalgia today. Eyes PERRL, EOMs intact bilaterally, conjunctivae normal and no scleral icterus Eyes Narrative: No discharge from the eyes and no mattering of the eyelashes. General Eye: normal appearance of both eyes Neck no lymphadenopathy, supple, no JVD, No nodes and no carotid bruits Neck Narrative: Brisk carotid upstroke with good pulse volume. General: trachea midline Chest Chest: symmetrical chest wall rise Resp normal respiratory effort, normal air movement, no use of accessory muscles and clear to auscultation bilaterally Resp Narrative: Not tachypneic and no conversational dyspnea. Effort and Inspection: able to speak in complete sentences Cardio regular rate, regular rhythm, S1 normal heart sound, S2 normal heart sound, no murmurs, no rub and no gallops Cardio Narrative: No ectopy. She has been in normal sinus rhythm every time I have examined her on rehab. She denies palpitations and lightheadedness. GI normal to inspection, nondistended, normoactive bowel sounds, soft to palpation and non-tender GI Narrative: No guarding with palpation. Denies nausea, abdominal cramping and had no bowel movements on 09/09/2024. At the time I spoke to her on 09/10/2024 if she had not had any bowel movements that morning either. no CVA tenderness Narrative: Denies dysuria. Back/Spine Back/Spine Narrative: She has kyphosis. Has not had a BMD test in many years. The last bone mineral density at [facility] was in 2017 and at that time she had normal bone density. Extremity no clubbing, cyanosis or edema, no calf tenderness and no pedal edema Extremity Narrative: Negative Hardy's and Sandi's signs. SHARIF hose are in place. Skin Skin Narrative: No rashes, no skin breakdown. Rashes: no rashes Wound Narrative: The craniotomy incision is intact and sutured. There is no dehiscence. No purulent discharge. No shirin-incisional erythema and no significant swelling around the incision. Neuro oriented x3, CN's II-XII intact bilaterally and no focal motor deficits Neuro Narrative: Tongue protrudes on the midline. Pupils are equal round and reactive to light and accommodation. Smooth pursuit but a few beats of nystagmus. Denies vertigo. Good strength in the arms and legs......no drift. Numbness R side. She had a recent surgery on the R thumb for severe OA.......has a scar. Good plantar flexion and dorsiflexion. No ataxia, No extinction. No visual field cuts. Normal speech. No aphasia or dysarthria. Psych affect normal, denies hallucinations, denies homicidal ideation and denies suicidal ideation Psych Narrative: Appropriate, making good eye contact. Able to stay on topic and focus. No flight of ideas. Does not appear anxious or depressed. Conversant and relating well to staff. Sleeping through the night now and feels much more rested in the morning. She is alert during the day and I see her up in the recliner rather than napping between therapy sessions. When she is anxious she does not outwardly appear very anxious but, diarrhea increases and she has more somatic complaints when she is anxious. Appearance: grossly normal and well kempt Attitude: calm and engaged Activity / Motor Behavior: appropriate eye contact Weight / BMI Weight Weight: 247 lb 3 oz Body Mass Index (BMI) 35.4 ABG / Lab / Microbiology Data 09/03/24 06:49 09/07/24 07:29 D/C Instructions Discharge Diet: - (Low-fat, low-salt) Weight Bearing Status: Full weight bearing Keep extremity elevated above heart level: Legs Call your doctor if your incision/area has: Continuous Slow Oozing, Sudden Increased Bleeding, Increased Pain/ Swelling, Increased Redness, Foul Smelling Discharge and Swelling at the incision site Call your doctor if you observe: Fever of 101 or Higher, Shortness of breath, Dizziness, Fainting spells, Swelling in the ankles, Chest pain, Increased palpitations (irregular heartbeat), Calf discomfort, Uncontrolled pain and - (STROKE symptoms: facial droop, slurred speech, inability to get words out, weakness on 1 side of the body and not the other, numbness on 1 side of the body and not the other, inability to maintain your balance sitting or standing, vertigo. ) Suture Line Care: Avoid Pulling/Pushing and Avoid Pinching/Bending Cleanse incision/area with: Soap & Water Additional Dressing/Incision Instructions: No dressing is need. Leave the incision open to air. DC O2, CPAP, BIPAP Needs Home O2 Discharge instructions: Yes Type of respiratory needs?: Oxygen Oxygen frequency: With Sleeping Oxygen liters per minute when sleepin DC home with Oxygen: Yes Home O2 MD Review: I have reviewed the oxygen testing, and the patient qualifies for home oxygen equipment and portability. The patient is mobile in the home and the community. Pending Tests Upon Discharge: none Please Follow Up With: Matthew Wallace When: a message was left with the office to call you with and appt. You should be seen within 7-10 days post discharge from rehab. Other appts need to be made.....listed at the end of the discharge instructions. 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 * Patients 75 years or YOUNGER should receive HIGH intensity statin dose unless contraindicated. You will be required to document reason for non-treatment if statin daily dose does not meet guidelines. HIGH DOSE STATIN THERAPY DAILY Atorvastatin > than or = to 40 mg Rosuvastatin > than or = to 20 mg Amlodipine + Atorvastatin > than or = to 2.5/40 mg Ezetimibe + Simvastatin 10/80 mg Simvastatin 80mg Discharge Plan Admission Admit Date/Time: 08/29/24 12:48 Primary Reason for Your Visit: Debility secondary to craniotomy for left parietal intraparenchymal hemorrh Attending Provider: Debi Deleon Primary Care Provider: Matthew Wallace Instructions Patient Instructions: Caring for Your Incision Additional Instructions / Restrictions: 1. I believe the restless leg was due to untreated sleep apnea and iron deficiency. I also believe the Ropinirole was causing augmentation and making things worse. I believe the Ropinirole was contributing to chronic nausea, lightheadedness, fatigue and headache. Since the ropinirole has been decreased and we have been applying oxygen anytime you are sleeping and we have given you IV iron the restless less is much better. Actually I think the soreness/stiffness and pain in the legs you are having at the end of the day are due to your chronic back problems and the increased amount of exercise you have been doing. I think it would be a good idea to continue to use Oxycodone in the evening to treat this. since the oxygen you are sleeping good at night and you are very alert during the day and taking less naps. The sleep lab will call you to schedule a sleep study and we have ordered oxygen for you to have at home anytime you are sleeping. 2. Outwardly you do not appear very anxious but, you have a lot of anxiety and you have even been treated for panic attacks in the past. Wellbutrin is a good antidepressant but, it does not treat anxiety and in fact it can cause increased anxiety, insomnia and headaches. WE have discontinued Wellbutrin and started you a medication called Sertraline that treats both anxiety and depression. It takes this medication 3-4 weeks to get the full effect. In the meantime I am giving you a prescription for Xanax (also called alprazolam) to take every 4-6 hours as needed for anxiety/panic attacks. You have not had to take much of this while on rehab. I think the diarrhea has more to do with irritable bowel syndrome (IBS) rather than Crohn's. Anxiety increase IBS sx. With IBS the diarrhea happens usually only during the day and does not wake you up at night. With IBS you will not have mucous or blood in the stool. I always think medication and counselling work much better together than either alone. I think you may benefit from follow up with behavioral health at [facility]. 3. I discontinued the hydrochlorothiazide (HCTZ) that you were taking. Your potassium and magnesium have both been low despite discontinuing hydrochlorothiazide. You will now take a potassium supplement and a magnesium supplement. We should recheck your lab in approximately 1 week to make sure that potassium/magnesium are now within normal limits. The swelling in your legs is very well-controlled with compression stockings. Swelling is always worse in the summer because it is hot and this leads to dilation of the veins and increased swelling in the legs, especially if you are not elevating them. Watch your salt intake because a high salt diet will increase peripheral edema. Diuretics generally only help once you are dehydrated and diuretics also decrease potassium and magnesium and low potassium and magnesium can lead to a problem with the rhythm of your heart called atrial fibrillation. Losing weight will help a lot with swollen ankles and it will also help with the chronic back pain. 4. You have done very well in therapy and we have all appreciated your hard work and your willingness to do whatever we have asked of you.....with a smile on your face. If you or any of your family have questions after you leave rehab please do not hesitate to call me. OFFICE: [phone] CELL: [phone] NURSES STATION ON REHAB: [phone] Discharge Orders/Prescriptions Prescriptions: New acetaminophen 325 mg Tablet 650 mg PO Q6H PRN PRN (Reason: Pain Score 1-10) Qty: 100 0RF alprazolam 0.25 mg Tablet 0.25 mg PO Q6H PRN PRN (Reason: Anxiety/Restlessness/Sleep) 7 Days Qty: 15 0RF loperamide 2 mg Capsule 2 mg PO Q4H PRN PRN (Reason: diarrhea) Qty: 1 0RF fluticasone propionate 50 mcg/actuation [place],Suspension 2 spray NASAL DAILY Qty: 1 0RF magnesium chloride [Mag 64] 64 mg Tablet,Delayed Release (Dr/Ec) 128 mg PO DAILY Qty: 30 0RF sertraline 100 mg Tablet 100 mg PO DAILY Qty: 30 0RF potassium chloride 10 mEq Tablet,Er Particles/Crystals 10 meq PO DAILYCM Qty: 30 0RF aspirin 81 mg tablet 81 mg PO DAILY Qty: 1 0RF Continued pantoprazole [Protonix] 40 mg tablet,delayed release (DR/EC) 40 mg PO DAILY cephalexin 250 mg tablet 250 mg PO QHS primidone 50 mg tablet 100 mg PO BID hyoscyamine sulfate 0.125 mg tablet,disintegrating 0.125 mg PO Q6 PRN (Reason: nausea/vomiting) clotrimazole 1 % cream 1 applic topical 0600,2200 PRN (Reason: Skin irritation) Rx Instructions: Abdominal folds betamethasone dipropionate 0.05 % ointment 1 applic topical QDAY PRN (Reason: skin irritation) Rx Instructions: Apply to hands clobetasol 0.05 % cream 1 applic topical 0600,2200 PRN (Reason: Skin irritation) Rx Instructions: Apply to vaginal area timolol maleate 0.5 % drops 1 drp ophthalmic (eye) DAILY Rx Instructions: Apply to Left eye latanoprost 1 DROP bottle 1 drp EACH EYE QHS promethazine 25 mg Tablet 25 mg PO Q6H PRN (Reason: Nausea) gabapentin 400 mg capsule 400 mg PO TID Qty: 90 0RF ferrous sulfate 325 mg (65 mg iron) tablet,delayed release (DR/EC) 325 mg PO DAILY Qty: 1 0RF Rx Instructions: Take this with 1,000 mg of Vitamin C. TAke with a meal. oxycodone 5 mg tablet 5 mg PO Q6H PRN (Reason: pain) 7 Days Qty: 15 0RF sotalol 80 mg tablet 80 mg PO BID Qty: 180 3RF Discontinued ropinirole 0.5 mg tablet 0.5 mg PO TID bupropion HCl 150 mg tablet extended release 24 hr 150 mg PO QDAY hydrochlorothiazide 25 MG tablet 25 mg PO DAILY enoxaparin [Lovenox] 40 mg/0.4 mL syringe 40 mg subcut DAILY Other Ambulatory Orders: Basic Metabolic Profile (BMP) (Routine) Timeframe: 1 Week Facility: [facility] - Location: Laboratory Ordered By: Dr. Debi Deleon Magnesium (Routine) Timeframe: 1 Week Facility: [facility] - Location: Laboratory Ordered By: Dr. Debi Deleon Referrals / Follow Up: sleep study [Other] (Hospital will call you to set up appointment ) Matthew Wallace DO [Primary Care Provider] - (message left with office) Jayson Baker DO [Med Staff - [employer]ding Machine [employer]er] - (message left for office to call and make appointment ) Jenn Avila, SHEMAR-C [Non-Staff] - 09/21/24 10:00 am Disposition Disposition (needs filled in before D/C Order can be placed): Home, Self Care Charges/Coding Visit Charges Inpatient E&M: 03689 Disch Hosp >30min
[2024-09-09 17:54] VITALS: BP 121/51; PULSE 64; RESP 17; TEMP 36.6; O2SAT 95
[2024-09-09 20:07] VITALS: O2SAT 95
[2024-09-09 20:36] VITALS: RESP 16; O2SAT 94
[2024-09-09] MEDS: Latanoprost 0.005% 1 Bottle 1 DRP EACH EYE (21:01)
[2024-09-09 21:56] VITALS: PULSE 66; O2SAT 97
[2024-09-10 05:09] VITALS: BP 115/58; PULSE 69; RESP 18; TEMP 36.7; O2SAT 96; BMI 35.4
[2024-09-10] MEDS: Timolol 0.5% 5ML OPTH.BTL 1 DRP OPHTHALMIC (08:23)
[2024-09-10] MEDS: Potassium Chloride Oral Tablet 10 MEQ PO (08:24)
[2024-09-10] MEDS: Magnesium Chloride 64 MG Delay Rel.Tablet 128 MG PO (08:24)
[2024-09-10] MEDS: Fluticasone 0.05% 1 SPRAY NASAL.SRY 2 SPRAY NASAL (08:24)
[2024-09-10] MEDS: Sotalol Hydrochloride 80 MG Tablet PO (08:27)
== END 2024-09-10 12:58 | disposition home or self-care (01) | DRG 56 ==
PROVIDERS: Admitting Provider Internal Medicine; PCP Family Medicine; Visit Provider Internal Medicine
DX: I69.198 Other sequelae of nontraumatic intracerebral hemorrhage (principal); Q28.2 Arteriovenous malformation of cerebral vessels; K50.90 Crohn's disease, unspecified, without complications; G47.36 Sleep related hypoventilation in conditions classified elsewhere; E66.9 Obesity, unspecified; I48.0 Paroxysmal atrial fibrillation; E61.1 Iron deficiency; G25.0 Essential tremor; F32.9 Major depressive disorder, single episode, unspecified; G25.81 Restless legs syndrome; I10 Essential (primary) hypertension; K58.0 Irritable bowel syndrome with diarrhea; G47.33 Obstructive sleep apnea (adult) (pediatric); K21.9 Gastro-esophageal reflux disease without esophagitis; F41.9 Anxiety disorder, unspecified; E78.00 Pure hypercholesterolemia, unspecified; E87.6 Hypokalemia; M54.10 Radiculopathy, site unspecified; M40.03 Postural kyphosis, cervicothoracic region; I87.2 Venous insufficiency (chronic) (peripheral); I25.10 Atherosclerotic heart disease of native coronary artery without angina pectoris; H61.899 Other specified disorders of external ear, unspecified ear; E83.42 Hypomagnesemia; Z86.711 Personal history of pulmonary embolism; G89.29 Other chronic pain; H40.9 Unspecified glaucoma; Z87.891 Personal history of nicotine dependence; Z68.35 Body mass index [BMI] 35.0-35.9, adult; Z98.890 Other specified postprocedural states; Z79.899 Other long term (current) drug therapy; R20.0 Anesthesia of skin
CPT/HCPCS: 36415; 80048; 80076; 82728; 82747; 83540; 83550; 83735; 84100; 84132; 85014; 85018; 85025; 92523; 94762; 97110; 97112; 97116; 97162; 97166; 97530; 97535; 97802; 97803; A4216; J2916

== ENCOUNTER → 2024-09-17 | Outpatient (CLI) | payer OTHER, SELFPAY ==
[2024-09-17 18:03] LABS: Anion Gap 12 (5-15); BUN 9 mg/dL (4-19); BUN/Creat Ratio 14.5 RATIO (10-20); Calcium,Total 9.1 mg/dL (7.6-11.0); Carbon Dioxide 24.7 mmol/L (21.0-32.0); Chloride 101 mmol/L (98-108); Glucose 126 mg/dL (70-99); Magnesium 1.8 mg/dL (1.5-2.2); Potassium 3.7 mmol/L (3.3-5.1)
== END | disposition home or self-care (01) ==
LOC: MTLAB 15:35
PROVIDERS: PCP Family Medicine; Referring Provider Internal Medicine; Visit Provider Internal Medicine
DX: E83.42 Hypomagnesemia (principal); E87.6 Hypokalemia
CPT/HCPCS: 36415; 80048; 83735

== ENCOUNTER → 2024-09-20 | Outpatient (CLI) | payer OTHER, SELFPAY ==
[2024-09-20 12:54] LABS: Color, Urine Yellow (Yellow); Glucose, Dipstick Normal (Normal); Ketone-Dipstick Negative (Negative); Leukocyte Esterase-Dipstick 500 /ul (Negative); Nitrite-Dipstick Negative (Negative); Occult Blood-Urine 10 /ul (Negative); Protein-Dipstick 15 mg/dl (Negative); Specific Gravity, Urine 1.025 (1.002-1.030); Urine Bilirubin Dipstick Negative (Negative)
== END | disposition home or self-care (01) ==
LOC: LABSPEC 09:56
PROVIDERS: PCP Family Medicine; Visit Provider Family Medicine
DX: N39.0 Urinary tract infection, site not specified (principal)
CPT/HCPCS: 81002; 87077; 87086; 87088; 87186

== ENCOUNTER → 2024-09-23 | Outpatient (CLI) | payer OTHER, SELFPAY | END | disposition home or self-care (01) | PROVIDERS: PCP Family Medicine; Referring Provider Internal Medicine; Visit Provider Internal Medicine | DX: G47.30 Sleep apnea, unspecified (principal) | CPT/HCPCS: 95810 ==

== ENCOUNTER → 2024-10-01 | Outpatient (CLI) | payer OTHER, SELFPAY ==
--- NOTE | 2024-10-01 15:23 | RAD_ITS ---
EXAM: XR Lumbosacral Spine, 4 or 5 Views CLINICAL INDICATION: PAIN TECHNIQUE: Frontal, lateral and bilateral oblique views of the lumbar spine. COMPARISON: No relevant prior studies available. FINDINGS: VERTEBRAE: Grade 1 anterior spondylolisthesis of L4 over L5 by 5 mm. Multilevel endplate degenerative change of the visualized spine. Facet arthropathy of L4-S1. No acute fracture. SACRUM/COCCYX: Unremarkable as visualized. No acute fracture. DISC SPACES: Mild disc degeneration of L4-5 and L5-S1. SOFT TISSUES: Unremarkable. VASCULATURE: Scattered calcified atherosclerotic disease of aorta. RAD/L/S Spine Min 4 Views IMPRESSION: 1. No acute fracture. 2. Grade 1 anterior spondylolisthesis of L4 over L5 by 5 mm. 3. Degenerative changes as above. Reading Location: [id number]
--- NOTE | 2024-10-01 15:23 | RAD_ITS ---
PROCEDURE: THORACIC SPINE 3 VIEWS 10/01/2024 REASON FOR EXAM: PAIN TECHNIQUE: THORACIC SPINE 3 VIEWS COMPARISON: None. FINDINGS: Vertebrae: No acute bony abnormalities. Discs: Multilevel disc space narrowing with sclerotic endplates and marginal osteophytes. Alignment: Normal alignment. RAD/Thoracic Spine 3 Views IMPRESSION: No acute bony abnormalities. Reading Location: [id number]
== END | disposition home or self-care (01) ==
LOC: MTRAD 15:21
PROVIDERS: PCP Family Medicine; Referring Provider Family Medicine; Visit Provider Family Medicine
DX: M54.50 Low back pain, unspecified (principal)
CPT/HCPCS: 72072; 72110

== ENCOUNTER 2024-11-01 12:00 | Outpatient (RCR) | payer OTHER, SELFPAY ==
--- NOTE | 2024-10-07 10:26 | HP.PTEVAL_ITS ---
Patient's Visit Information Visit Information Visit Information: AMANDA SANCHEZ is a 69 year old F referred to Physical Therapy by Dr. Debi Deleon DO with a diagnosis of CVA. Date of Evaluation: 10/07/24 Physical Therapist: Margarita Mcallister DPT Visit Plan Frequency: 2x /Week Duration: 4 Weeks Plan: Focus on functional mobility- stairs and balance HEP Given IE: sit to stand, tandem stance, SLS Subjective Subjective: Patient reports she had a stroke in the middle of August- it affected her right side- she was in [place] in the hospital- could not use her right leg at all- now she can move it and its doing well. She can walk, steps and do chores. She does not trust her balance to push the vacuum paper cleaner. She has back issues so that's an issue. She does not carry a clothes basket or groceries anymore. She only used the cane when her back was really bothering her before now she uses is when she is in the community all the time. She has had low back pain for years- she goes back Dr. Hernandez for injections- she now has higher back pain that is now wrapping around- no compression fracture. She was told she can have an adjustment and she is planning on going in to have him do it. It bothers her the worst when she rolling over in bed and trying to relax the muscles. She has stopped using the weights with her upper body exercises. She is not seeing OT just PT. Goals: walk without the cane and feel more secure with balance. No falls since the stroke. Feels the right side is heavy- numbness in her right from the knee to the neck but none in her foot. Her feet hurt at night. Sleep: not disturbed. She lives with her and 2 dogs. She is fully indep with ADL's. She does most of the cooking and she is able to sweep and mop the floors. PMHx/Meds: see list in chart. Objective Objective: Posture: forward head, rounded shoulders Gait: straight cane- decreased amanda Stairs: asc recip with 2 HR, desc: non recip- turned to the left- bilateral HR HR/TR: able with UE A SLS: weight shift only Balance: see FGA ROM: WNL Strength: Core: fair, Hip: Left: Flexion: 25 Abd: 29 Extn: 47 Right: Flexion: 21 Abd: 27, Ext: 50 Knee: Left: Flexion: 32 Extn: 43 Right: Flexion: 35 Extn: 46. Ankle:5/5 Flex: HS: moderate, Gastroc: moderate Balance/Special Test Scores Functional Gait Assessment Score: 21 % Disability: 30.0000 Lower Extremity Functional Score: 42 30 Second Chair Rise Test Seconds: 8 Goals Goal 1:: Patient will be I with HEP and progression Goal Time Frame: 4-6 Weeks Goal 2:: Patient will desc 8 stairs recip Goal Time Frame: 4-6 Weeks Goal 3:: Patient will improve her FGA by 5 points Goal Time Frame: 4-6 Weeks Goal 4:: Patient will report 80% improvement Goal Time Frame: 4-6 Weeks Rehabilitation Potential Physical Therapy Diagnosis: Patient presents with decreased LE and core strength/stabilization, proprioception, flex and muscular endurance leading to increased fall risk, decreased confidence and inability to complete all ADL's. Rehabilitation Potential: Good Anticipated Interventions Patient/Client Instruction: Educate patient on: Benefits of Fitness Program Therapeutic Exercise to Include: Strength training, Endurance training, Balance training, Coordination, Agility training, Body mechanics, Postural training, Flexibilty training, Gait and locomotor training, Neuromotor development, Passive ROM, Active ROM, Dynamic Lumbar Stabilization and Scapular Strength/Stabilization For the Purpose of:: To improve muscle performance and motor function Text: Thank you for the opportunity to evaluate your patient. For Medicare and Medicare HMO plans, please review the plan of care and approve it. It will need to be FAXED BACK to us at [phone] for Medicare purposes. For Medicare only, by signing this I certify the plan of care. Please let me know if there are questions or concerns regarding this plan of care. Physician Signature: Date:
--- NOTE | 2025-03-24 10:39 | HP.PT.NRP ---
Patient Information Patient Information: AMANAD SANCHEZ was seen in my office for initial evaluation on 10/07/24. The following Plan of Care was established for this patient: POC Established Initial Frequency: 2x /Week Initial Duration: 4 Weeks Anticipated Interventions Patient/Client Instruction: Educate patient on: Benefits of Fitness Program Therapeutic Exercise to Include: Strength training, Endurance training, Balance training, Coordination, Agility training, Body mechanics, Postural training, Flexibilty training, Gait and locomotor training, Neuromotor development, Passive ROM, Active ROM, Dynamic Lumbar Stabilization and Scapular Strength/Stabilization For the Purpose of:: To improve muscle performance and motor function Last Seen Last Seen: This patient was last seen in our office . Pertinent comments regarding their Physical therapy will appear below: Patient has not attended PT in over 30 days- appropriate to d/c and return to MD as needed. At this point I will be discontinuing this patient from physical therapy. I would be happy to see this patient again in the future if found appropriate by the physician. Thank you! ZEN McbrideT Balance/Gait/Functional tests Balance/Special Test Scores Functional Gait Assessment Score: 21 % Disability: 30.0000 Lower Extremity Functional Score: 42 30 Second Chair Rise Test Seconds: 8
== END 2024-11-01 19:00 | disposition home or self-care (01) ==
LOC: PT 12:00
PROVIDERS: PCP Family Medicine; Referring Provider Internal Medicine; Visit Provider Internal Medicine
DX: Z86.73 Personal history of transient ischemic attack (TIA), and cerebral infarction without residual deficits (principal)
CPT/HCPCS: 97110; 97162

== ENCOUNTER → 2024-11-03 | Outpatient (CLI) | payer OTHER, SELFPAY ==
--- NOTE | 2024-11-03 08:51 | RAD_ITS ---
PROCEDURE: THORACIC SPINE 2 VIEWS 11/03/2024 REASON FOR EXAM: THORACIC SPINE PAIN TECHNIQUE: THORACIC SPINE 2 VIEWS COMPARISON: 10/01/2024. FINDINGS: Vertebral body heights are maintained. Moderate discogenic degenerative changes. Normal alignment. Evidence of acute fracture. RAD/Thoracic Spine 2 Views IMPRESSION: Spondylosis. Reading Location: [id number]
== END | disposition home or self-care (01) ==
LOC: MTRAD 08:46
PROVIDERS: PCP Family Medicine; Referring Provider Clinical Nurse Specialist Adult Health; Visit Provider Clinical Nurse Specialist Adult Health
DX: M54.6 Pain in thoracic spine (principal)
CPT/HCPCS: 72070

== ENCOUNTER → 2024-11-19 | Outpatient (CLI) | payer OTHER, SELFPAY ==
--- OUTSIDE RECORDS SUMMARY | 2024-11-19 08:37 | XMS RPT_ITS | CCD ---
Author Organization [facility] Care Team Providers Care Tube Pusher Name Role Phone DR OTTONIEL PAGE DO A Primary Care Physician [phone] Dr. Ottoniel Page Primary Care Provider [phone] Dr. Ottoniel Page Referring Provider Dr. Andrew Kaene Attending Provider [phone] OTTONIEL PAGE DO A Primary Care Physician [phone] Dr. Ottoniel Page Primary Care Provider [phone] Provider Dr. Bruno Avila DO Referring Provider [phone] Dr. Bruno Avila DO Attending Provider [phone] Makeda Us Other Provider Camilo UMAÑA, Dr. Castro Attending Provider Camilo UMAÑA, Dr. Castro Referring Provider Janeth Rider Attending Provider Jess UMAÑA, Dr. Reese Emergency Provider [phone] Theo RICK, Dr. Vidal Emergency Provider PROVIDER, UNKNOWN Attending Unavailable PROVIDER, UNKNOWN Admitting Unavailable Camiloadin UMAÑA, Ottoniel A Primary Care Provider Camilo UMAÑA, Dr. Castro Primary Care Provider Jess UMAÑA, Dr. Reese Attending Provider [phone] Theo RICK, Dr. Vidal Attending Provider Semenrowdy UMAÑA, Dr. Debi Loya Admit Provider Semenrowdy DO, Dr. Debi Loya Attending Provide r Semenrowdy DO, Dr. Debi Loya Other Provider Camiloadin UMAÑA, Ottoniel A Primary Care Provider OTTONIEL PAGE A Primary Care Unavailable EDWARDS, YOUNG Referring Unavailable CONSULT, SURGERY - NEURO Consulting Unavail able MARIAN MCDONALD Attending Unavailab PRATIBHA Ivory Admitting Unavailable CAMILO, OTTONIEL A Primary Care Unavailable CAMILO, OTTONIEL A Referring Unavailable DOMINIK MEDEIROS Attending Unavailable Camilo, Ottoniel Attending Unavailable Camilo, Ottoniel Referring Unavailable Camilo, Ottoniel Primary Care Unavailable Sementi, Debi Loya Attending Unavaila ble Camilo, Ottoniel Primary Care Unavailable Sementi, Debi Loya Admitting Unavaila ble Camilo, Ottoniel Primary Care Unavailable Bruno Avila Attending Unavailable Bruno Avila Referring Unavailable Makeda Hermosillo Consulting Unavailable Edwards, Young Attending Unavailable Camilo, Ottoniel Primary Care Unavailable Sementi, Debi Loya Attending Unavaila ble Camilo, Ottoniel Primary Care Unavailable Sementi, Debi Loya Admitting Unavaila ble Sementi, Debi Loya Consulting Unavaila ble Camilo, Ottoniel Referring Unavailable Janeth Rider Attending Unavail able Camilo, Ottoniel Primary Care Unavailable Camilo, Ottoniel Primary Care Unavailable Sementi, Debi Loya Attending Unavaila ble Sementi, Debi Loya Referring Unavaila ble Camilo, Ottoniel Primary Care Unavailable Jabour, Vincent Referring Unavailable Jabour, Antoinetteent Attending Unavailable Camilo, Ottoniel Primary Care Unavailable Sementi, Debi Loya Attending Unavaila ble Sementi, Debi Loya Referring Unavaila ble Le, Hugh Attending Unavailable Camilo, Ottoniel Primary Care Unavailable Camilo, Ottoniel Attending Unavailable Camilo, Ottoniel Referring Unavailable Camilo, Ottoniel Primary Care Unavailable Camilo, Ottoniel Referring Unavailable Camilo, Ottoniel Primary Care Unavailable Mayra Maza NP Attending Unavailable Camilo, Ottoniel Primary Care Unavailable Jayson Baker Attending Unavailable [place], Daly Attending Unavailable [place], Daly Referring Unavailable Camilo, Ottoniel Primary Care Unavailable [place], Daly Consulting Unavailable Camilo, Ottoniel Primary Care Unavailable Jabour, Antoinetteent Attending Unavailable Jabour, Vincent Referring Unavailable [place], Daly Consulting Unavailable Camilo, Ottoniel Primary Care Unavailable Jabour, Vincent Referring Unavailable Jabour, Antoinetteent Attending Unavailable [place], Daly Attending Unavailable Eliane, Daly Referring Unavailable Camilo, Ottoniel Primary Care Unavailable Camilo, Ottoniel Primary Care Unavailable Bruno Avila Attending Unavailable SpittleBruno Referring Unavailable Camilo, Ottoniel Primary Care Unavailable GoranleRocBruno Referring Unavailable Daphne Manuel Attending Unavailabl e Sementi, Debi Loya Attending Unavaila ble Camilo, Ottoniel Primary Care Unavailable Sementi, Debi Loya Referring Unavaila ble Camilo, Ottoniel Attending Unavailable Camilo, Ottoniel Primary Care Unavailable Allergies Allergy Classification Reported Allergen(s) Allergy Type Date of Onset Reaction(s) Facility (5 sources) Acetaminophen / HYDROcodone; Translations: [acetaminophen-hy drocodone] Drug Allergy Paranoid disorder (disorder), Vomiting (disorder), Nausea (finding) [facility] (20 sources) predniSONE; Translations: [prednisone] Drug Allergy 2 Paranoid disorder (disorder) [facility] (13 sources) Acetaminophen Drug Allergy 2 GI upset [facility] (20 sources) Cortisone Drug Allergy 7 Agitation [facility] (20 sources) HYDROcodone Drug Allergy 2 GI upset [facility] (20 sources) Propoxyphene Drug Allergy 6 [facility] (1 source) Acetaminophen / HYDROcodone Drug Allergy 6 [place] (1 source) Prednisone Propensity to adverse reactions to drug 7 Agitation, Paranoia [place] (1 source) Acetaminophen Drug Allergy 4 [facility] (1 source) Cortisone Drug Allergy 5 [facility] (1 source) HYDROcodone Drug Allergy 5 [facility] (1 source) predniSONE Drug Allergy 5 [facility] (1 source) Propoxyphene Drug Allergy 5 [facility] Medications Current Medications Medication Drug Class(es) Dates Sig (Normalized) Sig (Original) acetaminophen 325 mg oral tablet (3 sources) Start: 09-09-2024 take 2 tablets by mouth every six hours as needed for pain Acetaminophen 325 mg Tablet Active 650 mg PO EVERY 6 HOURS NEEDED as needed for Pain Score 1-10 100 0 September 09, 2024 12:00am Start: 08-18-2024 End: 08-18-2024 Start: 06-11-2021 End: 06-25-2021 acetaminophen 325 mg oral ca psule Dose : 650 mg = 2 cap(s), Oral, q6hr, PRN as needed for pain, X 7 day(s), # 28 cap(s), 1 Refill(s), 06/25/21 13:17:00 EDT, Pharmacy: [facility], 177.8, cm, 06/11/21 8:38:00 EDT, Height Start Date: 06/11/21 Stop Date: 06/25/21 Status: Ordered ALPRAZolam 0.25 mg oral tablet (2 sources) Benzodiazepine Start: 09-09-2024 take 1 tablet by mouth at bedtime as needed ALPRAZolam 0.25 MG tablet Take 1 tablet by mouth at bedtime as needed for Insomnia. 09/09/2024 Active aspirin 81 mg oral tablet (20 sources) Platelet Aggregation Inhibitor, Nonsteroidal Anti-inflammatory Drug Start: 09-10-2024 take 1 tablet by mouth once daily Aspirin 81 mg tablet Active 81 mg PO DAILY 1 0 September 10, 2024 12:00am Start: 04-25-2021 aspirin 81 mg oral delayed release tablet Dose : 81 mg = 1 tab(s), Oral, qHS, 0 Refill(s) Start Date: 04/25/21 Status: Ordered Start: 04-25-2021 aspirin 81 mg oral delayed release tablet Dose : 81 mg = 1 tab(s), Oral, qDay, # 90 tab(s), 0 Refill(s) Start Date: 04/25/21 Status: Ordered Start: 08-24-2020 End: 08-29-2024 take 1 tablet by mouth at bedtime Aspirin 81 mg Tablet,Delayed Release (Dr/Ec) Discontinued 81 mg PO AT BEDTIME August 24, 2020 12:00am August 29, 2024 1:58pm Start: 10-13-2018 End: 04-27-2020 take 1 tablet by mouth once daily Aspirin 81 mg tablet,delayed release (DR/EC) Discontinued 81 mg PO DAILY October 13, 2018 12:00am April 27, 2020 12:07pm Start: 07-02-2017 End: 04-10-2018 Aspirin (Adult Low Dose Aspi rin) 81 mg tablet,delayed release (DR/EC) Discontinued 81 mg PO daily July 02, 2017 12:00am April 10, 2018 8:04am [facility] betamethasone 0.0005 mg/mg topical ointment (9 sources) Corticosteroid Start: 08-11-2024 betamethasone dipropionate 0.05 % Ointment Apply 1 Application topically daily. 08/11/2024 Active Start: 08-10-2024 Betamethasone Dipropionate 0.05 % ointment Active 1 NMA TOPICAL daily as needed for skin irritation August 10, 2024 12:00am Apply to hands Start: 10-10-2023 End: 08-29-2024 augmented betamethasone dipr opionate 0.05 % Cream Apply 1 Application topically 2 times daily. 10/10/2023 Active brimonidine tartrate 2 mg/ml / brinzolamide 10 mg/ml ophthalmic suspension (4 sources) Carbonic Anhydrase Inhibitor, alpha-Adrenergic Agonist Start: 05-28-2021 brimonidine-brinzolamide 0.2%-1% ophthalmic suspension Dose = 1 drop(s), Eye, left, BID, # 8 mL, 0 Refill(s) Start Date: 05/28/21 Status: Ordered Start: 05-28-2021 brimonidine-br inzolamide 0.2%-1% ophthalmic suspension Dose = 1 drop(s), Eye, left, BID, # 8 mL, 0 Refill(s) Start Date: 05/28/21 Status: Ordered clobetasol propionate 0.5 mg/ml topical cream (7 sources) Corticosteroid Start: 08-11-2024 clobetasol 0.0 5 % Cream Apply 1 Application topically 2 times daily. 08/11/2024 Active Start: 08-10-2024 End: 08-29-2024 Clobetasol 0.05 % cream Acti ve 1 NMA TOPICAL 0600,2200 as needed for Skin irritation August 10, 2024 12:00am Apply to vaginal area clotrimazole 10 mg/ml topical cream (7 sources) Azole Antifungal Start: 03-01-2024 Clotrimazole 1 % Cream Apply 1 Application topically 2 times daily. 03/01/2024 Active Start: 03-01-2024 End: 08-29-2024 Clotrimazole 1 % cream Activ e 1 NMA TOPICAL 0600,2200 as needed for Skin irritation August 10, 2024 12:00am Abdominal folds cyclobenzaprine hydrochloride 10 mg oral tablet (20 sources) Muscle Relaxant Start: 09-23-2019 End: 08-29-2024 take 1 tablet by mouth at bedtime as needed for muscle spasms Cyclobenzaprine 10 MG tablet Take 1 tablet by mouth at bedtime as needed for Muscle spasms. 05/03/2024 Active docusate sodium 100 mg oral capsule (5 sources) Start: 06-11-2021 Colace 100 mg oral capsule Dose : 100 mg = 1 cap(s), Oral, BID, PRN for constipation, # 60 cap(s), 1 Refill(s), Pharmacy: [facility], 177.8, cm, 06/11/21 8:38:00 EDT, Height Start Date: 06/11/21 Status: Ordered Start: 04-25-2021 Dulcolax Stool Softener 100 mg oral capsule Dose : 100 mg = 1 cap(s), Oral, BID, PRN as needed for constipation, # 20 cap(s), 0 Refill(s) Start Date: 04/25/21 Status: Ordered estradiol 0.1 mg/ml vaginal cream (1 source) Estrogen estradiol 0.1 MG /GM cream Insert 1 g vaginally twice a week. Active ferrous sulfate 325 mg delayed release oral tablet (20 sources) Start: 09-09-2024 Ferrous Sulfat e 325 mg (65 mg iron) tablet,delayed release (DR/EC) Active 325 mg PO DAILY 1 September 09, 2024 2:12pm supplement Take this with 1,000 mg of Vitamin C. TAke with a meal. Start: 08-10-2024 End: 09-09-2024 take 1 tablet by mouth once daily Ferrous Sulfate 325 mg (65 mg iron) tablet,delayed release (DR/EC) Discontinued 325 mg PO DAILY August 10, 2024 12:00am September 09, 2024 2:12pm supplement Start: 10-13-2018 End: 09-23-2019 take 1 tablet by mouth twice daily Ferrous Sulfate 325 mg (65 mg iron) tablet,delayed release (DR/EC) Discontinued 325 mg PO TWICE A DAY October 13, 2018 12:00am September 23, 2019 3:47pm take 1 tablet by kane twice daily ferrous sulfate 325 (65 Fe) MG tablet Take 1 tablet by mouth 2 times daily. Active fluticasone propionate 0.05 mg/actuat metered dose nasal spray (2 sources) Corticosteroid Start: 09-09-2024 Fluticasone Pr opionate 50 mcg/actuation [place],Suspension Active 2 NMA NASAL DAILY 1 September 09, 2024 12:00am Start: 08-18-2024 End: 08-29-2024 gabapentin 400 mg oral capsule (20 sources) Anti-epileptic Agent Start: 05-12-2024 End: 09-09-2024 take 1 capsule by mouth three times daily Gabapentin 400 MG capsule Take 1 capsule by mouth 3 times daily. 08/17/2024 Active Start: 10-13-2018 End: 05-12-2024 take 1 capsule by mouth three times daily Gabapentin 300 mg capsule Discontinued 300 mg PO THREE TIMES A DAY October 13, 2018 12:00am May 12, 2024 12:02pm Start: 07-02-2017 End: 07-08-2017 take 1 capsule by mouth four times daily Gabapentin 300 mg capsule Discontinued 300 mg PO .QID July 02, 2017 12:00am July 08, 2017 11:13am hyoscyamine sulfate 0.125 mg disintegrating oral tablet (6 sources) Start: 06-17-2024 take 1 tablet by mouth every six hours as needed hyoscyamine 0.125 MG Tab Dispersible tablet Take 1 tablet by mouth every 6 hours as needed. 06/17/2024 Active latanoprost 0.05 mg/ml ophthalmic solution (20 sources) Prostaglandin Analog Start: 08-10-2024 take 1 drop(s) into the eye(s) at bedtime Latanoprost 0.005 % Solution ophthalmic solution Place 1 drop in both eyes at bedtime. 08/10/2024 Active Start: 04-25-2021 take 1 dose into the [...] Start Date: 04/25/21 Status: Ordered Start: 04-13-2020 End: 08-29-2024 Latanoprost 1 DROP bottle Ac tive 1 NMA EACH EYE AT BEDTIME April 13, 2020 1:00am eye drops Start: 04-13-2020 Latanoprost Ac tive 1 DRP EACH EYE AT BEDTIME April 13, 2020 1:00am loperamide hydrochloride 2 mg oral capsule (1 source) Opioid Agonist Start: 09-09-2024 take 1 capsule by mouth every four hours as needed for diarrhea Loperamide 2 mg Capsule Active 2 mg PO EVERY 4 HOURS NEEDED as needed for diarrhea 1 0 September 09, 2024 12:00am LORazepam 1 mg oral tablet (20 sources) [...] MG PO DAILY August 24, 2020 12:00am magnesium chloride 598 mg delayed release oral tablet (2 sources) Start: 09-20-2024 take 1 tablet by mouth once daily SlowMag Mg Muscle/Heart 71.5-[address] Take 1 tablet by mouth daily. 09/20/2024 Active Start: 09-09-2024 Magnesium Chlo ride (Mag 64) 64 mg Tablet,Delayed Release (Dr/Ec) Active 128 mg PO DAILY 30 0 September 09, 2024 12:00am pantoprazole 40 mg delayed release oral tablet (20 sources) Proton Pump Inhibitor Start: 10-13-2018 End: 08-29-2024 take 1 tablet by mouth once daily Pantoprazole (Protonix) 40 mg tablet,delayed release (DR/EC) Active 40 mg PO DAILY October 13, 2018 12:00am GERD potassium chloride 10 meq extended release oral tablet (3 sources) Start: 09-20-2024 take 2 tablets by mouth once daily potassium chloride 10 MEQ Tab CR tablet ER Take 2 tablets by mouth daily. 09/20/2024 Active Start: 09-09-2024 take 1 tablet by kane th once daily at mealtime Potassium Chloride 10 mEq Tablet,Er Particles/Crystals Active 10 meq PO DAILY WITH MEALS 30 September 09, 2024 12:00am Start: 08-18-2024 End: 08-18-2024 primidone 50 mg oral tablet (7 sources) Anti-epileptic Agent Start: 06-25-2024 End: 08-29-2024 take 1 tablet by mouth twice daily Primidone 50 MG tablet Take 1 tablet by mouth 2 times daily. 06/25/2024 Active promethazine hydrochloride 25 mg oral tablet (20 sources) Phenothiazine Start: 04-25-2021 promethazine 12.5 mg oral tablet Dose : 12.5 mg = 1 tab(s), Oral, q4h, PRN for nausea/vomiting, # 60 tab(s), 0 Refill(s) Start Date: 04/25/21 Status: Ordered Start: 08-24-2020 take 1 tablet by kane th every six hours as needed Promethazine 25 MG tablet Take 1 tablet by mouth every 6 hours as needed. 02/29/2024 Active sertraline 100 mg oral tablet (2 sources) Serotonin Reuptake Inhibitor Start: 09-20-2024 take 1 tablet by mouth once daily Sertraline 100 MG tablet Take 1 tablet by mouth daily. 09/20/2024 Active Start: 09-09-2024 take 1 tablet by kane th once daily Sertraline 100 mg Tablet Active 100 mg PO DAILY 30 0 September 09, 2024 12:00am sotalol hydrochloride 80 mg oral tablet (20 sources) Antiarrhythmic Start: 07-02-2017 End: 08-29-2024 take 1 tablet by mouth twice daily Sotalol 80 MG tablet Take 1 tablet by mouth 2 times daily. 05/19/2024 Active Timolol Maleate (9 sources) beta-Adrenergic [place] Start: 08-10-2024 Timolol Maleate 0.5 % drops Active 1 NMA OPHTHALMIC DAILY August 10, 2024 12:00am eye drops Apply to Left eye Start: 08-10-2024 Timolol Maleat e 0.5 % drops Active 1 NMA OPHTHALMIC DAILY August 10, 2024 12:00am Start: 08-10-2024 Timolol Maleat e 0.5 % drops Active NMA OPHTHALMIC August 10, 2024 12:00am Start: 06-28-2024 End: 08-29-2024 take 1 drop(s) into the eye(s) once daily Timolol maleate 0.5 % Solution ophthalmic solution Place 1 drop in left eye daily. 06/28/2024 Active 1 ml ustekinumab 90 mg/ml prefilled syringe [...] 2019 3:46pm April 27, 2020 12:08pm Ustekinumab 90 M G/ML Solution Prefilled Syringe injection Inject 1 mL under the skin every 90 Days. Active Completed/Discontinued Medications Medication Drug Class(es) Dates Sig (Normalized) Sig (Original) acetaminophen 325 mg / oxyCODONE hydrochloride 5 mg oral tablet (20 sources) Opioid Agonist Start: 08-17-2024 End: 08-21-2024 Start: 07-14-2024 take 5-325 tablets b y mouth every eight hours as needed for pain oxyCODONE-acetaminophen 5-325 MG per tablet Take by mouth every 8 hours as needed for Severe Pain. 07/14/2024 Active Start: 04-25-2021 acetaminophen- oxyCODONE 325 mg-5 mg oral tablet Dose = [...] 03, 2020 1:00am May 04, 2020 1:03am Spinal stenosis, lumbar region without neurogenic claudication PRN pain Start: 04-27-2020 End: 05-04-2020 take 1 tablet by mouth every six hours as needed for pain Oxycodone-Acetaminophen Discontinued 1 - 2 TABLET PO EVERY 6 HOURS NEEDED 56 7 April 27, 2020 May 04, 2020 1:03am PRN pain Start: 05-15-2018 End: 05-20-2018 Oxycodone-Acetaminophen 1 TA BLET tablet Discontinued 1 {tbl} PO EVERY 6 HOURS NEEDED as needed for Pain 20 5 0 May 15, 2018 1:00am May 19, 2018 12:00am May 20, 2018 12:08am Fracture of wrist Start: 05-15-2018 End: 05-20-2018 take 1 tablet by mouth every six hours as needed Oxycodone-Acetaminophen Discontinued 1 TABLET PO EVERY 6 HOURS NEEDED 20 5 May 15, 2018 1:00am May 20, 2018 12:08am Start: 07-02-2017 End: 08-29-2024 Oxycodone-Acetaminophen 5-32 5 mg tablet Discontinued 1 {tbl} PO Q4H as needed for Pain 0 July 02, 2017 12:00am August 29, 2024 2:12pm Start: 07-02-2017 take 1 tablet by kane th every four to six hours Oxycodone-Acetaminophen Active 1 TABLET PO .Q4-6H July 02, 2017 12:00am apixaban 5 mg oral tablet (20 sources) [...] Tab.Ds.Pk Discontinued 5 mg PO DIRECTED 74 30 0 April 09, 2018 1:00am May 08, 2018 1:00am May 09, 2018 1:10am Acute pulmonary embolism Other pulmonary embolism without acute cor pulmonale pulmonary embolism Take 10 mg BID x 7 days and then transition to 5 mg BID. azaTHIOprine 50 mg oral tablet (20 sources) Purine Antimetabolite Start: 07-08-2017 End: 10-13-2018 take 1 tablet by mouth once daily Azathioprine 50 mg tablet Discontinued 150 mg PO daily July 08, 2017 12:00am October 13, 2018 8:29am Crohns Start: 07-08-2017 End: 10-13-2018 take 150 mg by mouth once daily Azathioprine Discontinued 150 MG PO daily July 08, 2017 12:00am October 13, 2018 8:29am 24 hr buPROPion hydrochloride 150 mg extended release oral tablet (14 sources) Aminoketone Start: 07-15-2024 End: 09-21-2024 take 1 tablet by mouth once daily in the morning buPROPion 150 MG tablet XL Take 1 tablet by mouth daily every morning. 07/15/2024 09/21/2024 Discontinued Start: 08-11-2023 End: 08-10-2024 take 1 tablet by mouth once daily in the morning Bupropion Hcl (Wellbutrin Sr) 150 mg tablet sustained-release 12 hr Discontinued 150 mg PO EVERY MORNING August 11, 2023 12:00am August 10, 2024 8:38am calcium chloride 0.0014 meq/ ml / potassium chloride 0.004 meq/ml / sodium chloride 0.103 meq/ml / sodium lactate 0.028 meq/ml injectable solution (1 source) Start: 08-19-2024 End: 08-21-2024 ceFAZolin 2000 mg injection (1 source) Cephalosporin Antibacterial Start: 08-20-2024 End: 08-21-2024 cephalexin 250 mg oral capsu le (20 sources) Cephalosporin Antibacterial Start: 06-25-2024 End: 08-27-2024 Start: 06-25-2024 Start: 09-23-2019 End: 05-05-2021 take 1 tablet by mouth at bedtime Cephalexin 250 mg tablet Active 250 mg PO AT BEDTIME September 23, 2019 12:00am Antibiotic ciprofloxacin 500 mg oral tablet (20 sources) Quinolone Antimicrobial Start: 09-01-2020 End: 10-31-2020 take 1 tablet by mouth twice daily Ciprofloxacin Hcl (Cipro) 500 mg tablet Discontinued 500 mg PO TWICE A DAY 10 0 September 01, 2020 12:00am October 31, 2020 1:04pm Cranberry Fruit (20 sources) Start: 01-25-2018 End: 09-23-2019 take 1 capsule by mouth twice daily Cranberry Fruit Discontinued 1 CAP PO TWICE A DAY January 25, 2018 3:33pm September 23, 2019 3:45pm Start: 01-25-2018 End: 09-23-2019 Cranberry Fruit Discontinued 1 NMA PO TWICE A DAY January 25, 2018 1:00am September 23, 2019 3:45pm supplement Start: 01-25-2018 End: 09-23-2019 Cranberry Fruit Discontinued [...] 25, 2018 1:00am September 23, 2019 3:45pm 0.4 ml enoxaparin sodium 100 mg/ml prefilled syringe (1 source) Low Molecular Weight Heparin Start: 08-29-2024 End: 09-09-2024 Enoxaparin (Lovenox) 40 mg/0.4 mL syringe Discontinued 40 mg SC DAILY August 29, 2024 12:00am September 09, 2024 2:00pm Blood thinner famotidine 20 mg oral tablet (20 sources) Histamine-2 Receptor Antagonist Start: 04-10-2018 End: 10-13-2018 take 1 tablet by mouth twice daily Famotidine 20 MG tablet Discontinued 20 mg PO TWICE A DAY 60 0 April 10, 2018 1:00am October 13, 2018 [...] 09, 2018 1:00am September 23, 2019 3:45pm afib Start: 04-09-2018 End: 09-23-2019 take 40 mg by mouth once daily Fluoxetine Discontinued 40 MG PO DAILY April 09, 2018 1:00am September 23, 2019 3:45pm hydroCHLOROthiazide 25 mg oral tablet (20 sources) Thiazide Diuretic Start: 04-13-2020 End: 09-21-2024 take 1 tablet by mouth once daily hydroCHLOROthiazide 25 MG tablet Take 1 tablet by mouth daily. 08/04/2024 09/21/2024 Discontinued 1 ml HYDROmorphone hydrochloride 1 mg/ml cartridge (2 sources) Opioid Agonist Start: 08-20-2024 End: 08-29-2024 take 0.2 mg intravenously every four hours as needed ibuprofen 200 mg oral tablet (20 sources) Nonsteroidal Anti-inflammato ry Drug Start: 07-02-2017 End: 07-08-2017 Ibuprofen 200 mg tablet Discontinued 200 mg PO .As Needed July 02, 2017 12:00am July 08, 2017 11:15am levETIRAcetam 1000 mg oral tablet (2 sources) Start: 08-19-2024 End: 08-20-2024 Start: 08-18-2024 End: 08-29-2024 50 ml magnesium sulfate 80 m g/ml injection (4 sources) Start: 08-25-2024 End: 08-25-2024 Start: 08-21-2024 End: 08-21-2024 Start: 08-20-2024 End: 08-20-2024 Start: 08-18-2024 End: 08-18-2024 meloxicam 15 mg oral tablet (20 sources) [...] 2020 12:07pm ondansetron 8 mg oral tablet (20 sources) Serotonin-3 Receptor Antagonist Start: 04-10-2018 End: 10-13-2018 take 1 tablet by mouth every eight hours as needed for nausea Ondansetron Hcl 8 MG tablet Discontinued 8 mg PO EVERY 8 HOURS NEEDED as needed for nausea, emesis 30 0 April 10, 2018 1:00am October 13, 2018 8:30am oxyCODONE hydrochloride 5 mg oral tablet (20 sources) Opioid Agonist Start: 05-10-2024 End: 09-21-2024 take 1 tablet by mouth every six hours as needed oxyCODONE 5 MG tablet Take 1 tablet by mouth every 6 hours as needed. 05/10/2024 09/21/2024 Discontinued Start: 06-27-2021 take 1 tablet by kane th every four hours for pain oxyCODONE 5 [...] 0 Refill(s), 06/18/21 13:15:00 EDT, Pharmacy: [facility], Post-op pain, 177.8, cm, 06/11/21 8:38:00 EDT, Height, 117.1 Start Date: 06/11/21 Stop Date: 06/18/21 Status: Ordered Start: 04-10-2018 End: 04-14-2018 take 1 tablet by mouth every four hours as needed for pain Oxycodone 5 MG tablet Discontinued 5 mg PO EVERY 4 HOURS NEEDED as needed for Moderate Pain (pain scale 4-5) 24 4 0 April 10, 2018 1:00am April 13, 2018 1:00am April 14, 2018 1:08am Acute pulmonary embolism Other pulmonary embolism without acute cor pulmonale 1000 ml potassium chloride 0 .02 meq/ml / sodium chloride 9 mg/ml injection (1 source) Start: 08-18-2024 End: 08-18-2024 rOPINIRole 0.25 mg oral tabl et (20 sources) Nonergot Dopamine Agonist Start: 08-20-2024 End: 08-29-2024 Start: 08-10-2024 End: 09-21-2024 take 1 tablet by mouth three times daily rOPINIRole 0.5 MG tablet Take 1 tablet by mouth 3 times daily. 08/10/2024 09/21/2024 Discontinued Start: 08-10-2024 End: 08-29-2024 Start: 04-25-2021 rOPINIRole 0.5 mg oral tablet [...] 02, 2017 12:00am July 08, 2017 11:15am 20 ml sodium chloride 9 mg/ml injection (2 sources) Start: 08-17-2024 End: 08-18-2024 Stelara PFS 90 mg/mL subcutaneous solution (1 source) Start: 06-07-2021 inject 1 mL by subcutaneous injection every two months Stelara PFS 90 mg/mL subcutaneous solution Dose : 90 mg = 1 mL, Subcutaneous, EVERY 2 MONTHS, # 1 mL, 0 Refill(s) Start Date: 06/07/21 Status: Ordered Ustekinumab (Stelara) 90 mg/mL Syringe (3 sources) Start: 08-24-2020 End: 08-29-2024 Ustekinumab (Stelara) 90 mg/mL Syringe Discontinued 90 mg SC .Q2MO August 24, 2020 12:00am August 29, 2024 2:16pm Start: 08-24-2020 Ustekinumab (S telara) 90 mg/mL Syringe Active 90 mg SC .Q2MO August 24, 2020 12:00am vitamin b12 1 mg oral capsule (20 sources) Vitamin B12 Start: 01-25-2018 End: 10-13-2018 Cyanocobalamin (Vitamin B-12 ) 1,000 MCG capsule Discontinued 1500 ug PO AT BEDTIME January 25, 2018 1:00am October 13, 2018 8:32am supplement Start: 01-25-2018 End: 10-13-2018 take 1500 ug by mouth at bedtime Cyanocobalamin (Vitamin B-12) Discontinued 1500 MCG PO AT BEDTIME January 25, 2018 1:00am October 13, 2018 8:32am (2 sources) Start: 08-24-2024 End: 08-24-2024 Start: 08-18-2024 End: 08-18-2024 (9 sources) Start: 08-22-2024 End: 08-29-2024 [Order 1 Start] Name: Enoxap marty Sodium (LOVENOX) injection 40 mg Signed Summary: 40 mg, Subcutaneous, DAILY, First dose on Fri08/22/24 at 0900, Until Discontinued, For SUBCUTANEOUS route ONLY: alternate injection sites between left and right abdominal wall, pinching location and avoiding area around navel. If unable to use abdominal sites, may use the front or side of thighs., Indications: DVT/PE prophylaxis [Order 1 End] [Order 2 Start] Name: PLATELET COUNT Signed Summary: Routine, EVERY 3 DAYS AM LAB, First occurrence on Fri08/24/24 at 0500, Until Specified, New collection [Order 2 End] Start: 08-21-2024 End: 08-29-2024 take 10 mg intravenously every hour as needed [Order 1 Start] Name: Labetalol (NORMODYNE) injection 10 mg Signed Summary: 10 mg, Intravenous, EVERY 1 HOUR NEEDED, Starting on Fri08/21/24 at 1210, Until 08/29/24 at 1330, SBP > 160 mmHg with HR >60 bpm, Use as initial dose. Use if Heart Rate GREATER THAN 60 beats per minute. Higher dose may be administered if lower dose was previously documented as ineffective 10 minutes after administration and did not result in adverse effects (HR 160 mmHg with HR >60 bpm, Use if Heart Rate GREATER THAN 60 beats per minute. Higher dose may be administered if lower dose was previously documented as ineffective 10 minutes after administration and did not result in adverse effects (HR<60). Decrease back to lower dose if patient has adverse effects, or no PRN used in previous 3 hours. For vials: labetalol should be treated as a SINGLE USE VIAL. Discard remaining contents after one use. [Order 2 End] Start: 08-21-2024 End: 08-29-2024 take 10 mg intravenously every hour as needed [Order 1 Start] Name: hydrALAZINE (APRESOLINE) injection 10 mg Signed Summary: 10 mg, Intravenous, EVERY 1 HOUR NEEDED, Starting on 08/21/24 at 1210, Until 08/29/24 at 1330, Other, SBP > 160 mmHg with HR 90). [Order 1 End] [Order 2 Start] Name: hydrALAZINE (APRESOLINE) injection 20 mg Signed Summary: 20 mg, Intravenous, EVERY 1 HOUR NEEDED, Starting on 08/21/24 at 1210, Until 08/29/24 at 1330, Other, SBP > 160 mmHg with HR 90). Decrease back to lower dose if patient has adverse effects, or no PRN used in previous 3 hours. [Order 2 End] Start: 08-18-2024 End: 08-29-2024 [Order 1 Start] Name: Senna (SENOKOT) tablet 8.6 mg Signed Summary: 8.6 mg, Oral, DAILY, First dose on Fri08/18/24 at 0900, Until Discontinued [Order 1 End] [Order 2 Start] Name: Senna (SENOKOT) tablet 8.6 mg Signed Summary: 8.6 mg, Per NG tube, DAILY, First dose on Fri08/18/24 at 0900, Until Discontinued [Order 2 End] Start: 08-18-2024 End: 08-19-2024 Start: 08-17-2024 End: 08-29-2024 take 4 mg intravenously every six hours as needed [Order 1 Start] Name: Ondansetron 4mg/2ml (ZOFRAN) injection 4 mg Signed Summary: 4 mg, Intravenous, EVERY 6 HOURS NEEDED, Starting on Fri08/17/24 at 2341, Until Fri08/29/24 at 1330, Nausea / Vomiting [Order 1 End] [Order 2 Start] Name: Ondansetron (ZOFRAN) tablet 4 mg Signed Summary: 4 mg, Oral, EVERY 6 HOURS NEEDED, Starting on Fri08/17/24 at 2341, Until Fri08/29/24 at 1330, Nausea / Vomiting [Order 2 End] Start: 08-17-2024 End: 08-29-2024 [Order 1 Start] Name: Polyet hylene glycol (MIRALAX) packet 17 g Signed Summary: 17 g, Oral, DAILY NEEDED, Starting on Fri08/17/24 at 2341, Until Fri08/29/24 at 1330, Constipation If No Bowel Movement in 48 Hours [Order 1 End] [Order 2 Start] Name: Polyethylene glycol (MIRALAX) packet 17 g Signed Summary: 17 g, Per NG tube, DAILY NEEDED, Starting on Fri08/17/24 at 2341, Until Fri08/29/24 at 1330, Constipation If No Bowel Movement in 48 Hours [Order 2 End] Start: 08-17-2024 End: 08-21-2024 take 10 mg intravenously every hour as needed Start: 08-17-2024 End: 08-29-2024 take 325 mg by mouth every four hours as needed [Order 1 Start] Name: Acetaminophen (TYLENOL) tablet 325 mg Signed Summary: 325 mg, Oral, EVERY 4 HOURS NEEDED, Starting on Fri08/17/24 at 2341, Until Fri08/29/24 at 1330, Mild Pain, Moderate Pain, Maximum dose of acetaminophen is 4000 mg from all sources in 24 hours. [Order 1 End] [Order 2 Start] Name: Acetaminophen (TYLENOL) tablet 325 mg Signed Summary: 325 mg, Per NG tube, EVERY 4 HOURS NEEDED, Starting on Fri08/17/24 at 2341, Until Fri08/29/24 at 1330, Mild Pain, Moderate Pain, Maximum dose of acetaminophen is 4000 mg from all sources in 24 hours. [Order 2 End] [Order 3 Start] Name: Acetaminophen (TYLENOL) tablet 650 mg Signed Summary: 650 mg, Oral, EVERY 4 HOURS NEEDED, Starting on Fri08/17/24 at 2341, Until Fri08/29/24 at 1330, Severe Pain, Oral temp > 99.5, Maximum dose of acetaminophen is 4000 mg from all sources in 24 hours. [Order 3 End] [Order 4 Start] Name: Acetaminophen (TYLENOL) tablet 650 mg Signed Summary: 650 mg, Per NG tube, EVERY 4 HOURS NEEDED, Starting on Fri08/17/24 at 2341, Until 08/29/24 at 1330, Severe Pain, Oral temp > 99.5, Maximum dose of acetaminophen is 4000 mg from all sources in 24 hours. [Order 4 End] (1 source) Start: 08-20-2024 End: 08-20-2024 (1 source) Start: 08-20-2024 End: 08-20-2024 (1 source) Start: 08-17-2024 End: 08-17-2024 Problems Active Problems Problem Classification Problem Date Documented Da te Episodic/Chronic Acute cerebrovascular disease (14 sources) Hemorrhagic cerebral infarction; 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, unspecified] Onset: 08-17-2024 08-17-2024 Chronic Anxiety disorders (10 sources) Anxiety; Translations: [Anxiety disorder, unspecified] Onset: 09-10-2024 04-24-2021 Chronic Comment on above: with panic attacks. Cardiac and circulatory congenital anomalies (3 sources) Cerebral arteriovenous malformation; Translations: [Arteriovenous malformation of cerebral vessels] Onset: 08-17-2024 09-21-2024 Chronic Cardiac dysrhythmias (20 sources) Atrial fibrillation; Translations: [Wide QRS ventricular tachycardia] Onset: 04-27-2020 04-24-2021 Chronic Cardiac dysrhythmias (20 sources) Palpitations; Translations: [Palpitations] Onset: 04-27-2020 09-23-2019 Episodic Disorders of lipid metabolism (20 sources) Hyperlipidemia; Translations: [Hyperlipidemia, unspecified] Onset: 09-10-2024 04-09-2018 Chronic Essential hypertension (20 sources) Essential hypertension; Translations: [Essential (primary) hypertension] Onset: 09-10-2024 Chronic Fluid and electrolyte disorders (2 sources) Hypokalemia; Translations: [Hypokalemia] 09-10-2024 Episodic Genitourinary symptoms and ill-defined conditions (20 sources) Urge incontinence of urine; Translations: [Urge incontinence] 09-01-2020 Chronic Comment on above: Has been treated wit h Botox in the past. Glaucoma (3 sources) Glaucoma; Translations: [Unspecified glaucoma] Onset: 09-10-2024 09-10-2024 Chronic Malaise and fatigue (3 sources) Asthenia; Translations: [Other malaise] Onset: 09-10-2024 08-30-2024 Episodic Menopausal disorders (1 source) Postmenopausal bleeding; Translations: [Postmenopausal bleeding] Onset: 05-28-2021 Chronic Mood disorders (6 sources) Depression; Translations: [Major depressive disorder, single episode, unspecified] Onset: 09-10-2024 04-24-2021 Chronic Osteoarthritis (1 source) Unilateral primary osteoarthritis of first carpometacarpal joint, right hand; Translations: [Unilateral primary osteoarthritis of first carpometacarpal joint, right hand] Onset: 05-31-2024 Chronic Other acquired deformities (2 sources) Kyphosis deformity of spine; Translations: [Unspecified kyphosis, site unspecified] 08-30-2024 Chronic Other acquired deformities (1 source) Postural kyphosis, cervicothoracic region; Translations: [Postural kyphosis, cervicothoracic region] Onset: 09-10-2024 Chronic Other and unspecified benign neoplasm (2 sources) Acoustic neuroma; Translations: [Benign neoplasm of cranial nerves] Onset: 08-19-2024 09-21-2024 Chronic Other ear and sense organ disorders (2 sources) Disorder of external ear; Translations: [Other specified disorders of external ear, unspecified ear] 09-10-2024 Episodic Comment on above: Right....possible sc hwannoma Other gastrointestinal disorders (2 sources) Irritable bowel syndrome; Translations: [Irritable bowel syndrome without diarrhea] 09-10-2024 Chronic Other gastrointestinal disorders (1 source) Intra-abdominal and pelvic swelling, mass and lump; Translations: [Other intra-abdominal and pelvic swelling, mass and lump] Onset: 05-28-2021 Episodic Other gastrointestinal disorders (2 sources) History of Crohns disease; Translations: [Personal history of other diseases of the digestive system] 09-10-2024 Episodic Other hereditary and degenerative nervous system conditions (2 sources) Essential tremor; Translations: [Essential tremor] 08-30-2024 Chronic Other hereditary and degenerative nervous system conditions (2 sources) Restless legs; Translations: [Restless legs syndrome] 08-30-2024 Chronic Comment on above: on med Other hereditary and degenerative nervous system conditions (1 source) Essential tremor; Translations: [Essential tremor] Onset: 09-10-2024 Chronic Other hereditary and degenerative nervous system conditions (1 source) Restless legs syndrome; Translations: [Restless legs syndrome] Onset: 09-10-2024 Chronic Other lower respiratory disease (2 sources) Snoring; Translations: [Snoring] 08-30-2024 Episodic Other lower respiratory disease (1 source) Snoring; Translations: [Snoring] Onset: 09-10-2024 Episodic Other nervous system disorders (2 sources) Paresthesia; Translations: [Paresthesia of skin] 08-17-2024 Episodic Other nervous system disorders (1 source) Anesthesia of skin; Translations: [Anesthesia of skin] Onset: 08-23-2024 Episodic Other nutritional; endocrine; and metabolic disorders (2 sources) Body mass index 30+ - obesity; Translations: [Obesity, unspecified] 08-30-2024 Chronic Other nutritional; endocrine; and metabolic disorders (2 sources) Hypomagnesemia; Translations: [Hypomagnesemia] 09-10-2024 Chronic Other nutritional; endocrine; and metabolic disorders (1 source) Obese class II; Translations: [Obesity, Class II, BMI 35-39.9] Onset: 09-21-2024 09-21-2024 Chronic Other nutritional; endocrine; and metabolic disorders (1 source) Hypomagnesemia; Translations: [Hypomagnesemia] Onset: 09-23-2024 Chronic Other nutritional; endocrine; and metabolic disorders (1 source) Obesity, unspecified; Translations: [Obesity, unspecified] Onset: 09-10-2024 Chronic Other skin disorders (1 source) Fistula; Translations: [Other specified disorders of the skin and subcutaneous tissue] 08-20-2024 Episodic Other skin disorders (2 sources) Other specified disorders of the skin and subcutaneous tissue; Translations: [Other specified disorders of the skin and subcutaneous tissue] Onset: 08-17-2024 Episodic Pulmonary heart disease (20 sources) Pulmonary embolism; Translations: [Acute pulmonary embolism] Onset: 04-09-2018 04-24-2021 Episodic Regional enteritis and ulcerative colitis (5 sources) Crohn's disease 04-24-2021 Chronic Residual codes; unclassified (2 sources) Sleep related hypoxemia; Translations: [Sleep related hypoventilation in conditions classified elsewhere] 09-10-2024 Chronic Residual codes; unclassified (1 source) Obstructive sleep apnea syndrome; Translations: [Obstructive sleep apnea (adult) (pediatric)] 09-10-2024 Chronic Residual codes; unclassified (1 source) Sleep apnea, unspecified; Translations: [Sleep apnea, unspecified] Onset: 09-29-2024 Chronic Residual codes; unclassified (1 source) Sleep related hypoventilation in conditions classified elsewhere; Translations: [Sleep related hypoventilation in conditions classified elsewhere] Onset: 09-10-2024 Chronic Residual codes; unclassified (1 source) Obstructive sleep apnea (adult) (pediatric); Translations: [Obstructive sleep apnea (adult) (pediatric)] Onset: 09-10-2024 Chronic Residual codes; unclassified (5 sources) Chronic back pain 04-24-2021 Episodic Residual codes; unclassified (3 sources) Other specified postprocedural states; Translations: [History of craniectomy] Onset: 09-10-2024 08-30-2024 Episodic Comment on above: 08/20/24 at [facility] with resection of AVM and evacuation of hematoma. Spondylosis; intervertebral disc disorders; other back problems (1 source) Pain in thoracic spine; Translations: [Pain in thoracic spine] Onset: 11-12-2024 Episodic Unclassified (1 source) Hospital will call you to set up appointment Unclassified (1 source) message left with office Unclassified (1 source) message left for office to call and make appointment Unclassified (1 source) Low back pain, unspecified; Translations: [Low back pain, unspecified] Onset: 10-06-2024 Urinary tract infections (1 source) Urinary tract infection, site not specified; Translations: [Urinary tract infection, site not specified] Onset: 09-24-2024 Episodic Past or Other Problems Problem Classification Problem Date Documented Da te Episodic/Chronic Other non-traumatic joint disorders (1 source) Pain in right hip; Translations: [Pain in right hip] Onset: 05-06-2024 Episodic Other screening for suspected conditions (not mental disorders or infectious disease) (1 source) Encounter for screening mammogram for malignant neoplasm of breast; Translations: [Encounter for screening mammogram for malignant neoplasm of breast] Onset: 08-09-2024 Episodic Viral infection (20 sources) COVID-19; Translations: [Severe acute respiratory syndrome coronavirus 2 (SARS-CoV-2) detected] Onset: 01-24-2020 05-02-2020 Episodic Results Test Name Value Interpretation Reference Range Facility OT D/C of Non Returning Pton 11-11-2024 OT D/C of Non Returning Pt [facility] Occupational Therapy [facility] [address] [place] [address] / REHABILITATION SERVICES DISCHARGE SUMMARY MR#: [id number] Acct: [id number] Name: AMANDA REYNA Rep #: [id number] : 1955 69 From: Janeth Nash OTR/L, CHT Referring Dr.: Dr. Bruno Avila, DO Status: REG RCR Eval Date: Discharge Date: Patient Information Patient Information: AMANDA REYNA was seen in my office for initial evaluation on 06/28/24. The following Plan of Care was established for this patient: POC Established Initial Frequency: 1-2x /Week Initial Duration: 6-8 weeks Plan: light strengthening will return to next week to see if he agrees with cont. of therapy vs HEP. Pt demo understanding of his HEP. Anticipated Interventions Anticipated Interventions: A/AAROM/PROM, Strengthening, Scar Care, Modalities, Orthoses, Joint Protection/Energy Conservation, Ergonomic Education, Fine Motor Coord/Gio, Education re assistive Equipment and Education re Diagnosis Last Seen Last Seen: This patient was last seen in our office 07/20/24. Pertinent comments regarding their Occupational therapy will appear below: No further apts have been scheduled and due to time lapse in services pt is d/c. At this point I will be discontinuing this patient from occupational therapy. I would be happy to see this patient again in the future if found appropriate by the physician. Thank you! Janeth Nash, OTR/L, CHT 11/11/24 0920 CC: Dr. Ottoniel Page DO; Dr. Bruno Avila DO MK Signed Normal [facility] Thoracic Spine 2 Viewson Thoracic Spine 2 Views [facility] Imaging Services [address] [place], [place] [id number] Thoracic Spine 2 Views MR#: [id number] Acct: [id number] Name: AMANDA REYNA Rep #: [id number] : 1955 F 69 From: Armen Moreno MD PCP: Dr. Ottoniel Page DO Status: REG CLI Study: Thoracic Spine 2 Views Date of Exam: 11/03/24 Exam# [id number] Ordering Dr: Daly Del Rio PROCEDURE: THORACIC SPINE 2 VIEWS 11/03/2024 REASON FOR EXAM: THORACIC SPINE PAIN TECHNIQUE: THORACIC SPINE 2 VIEWS COMPARISON: 10/01/2024. FINDINGS: Vertebral body heights are maintained. Moderate discogenic degenerative changes. Normal alignment. Evidence of acute fracture. RAD/Thoracic Spine 2 Views IMPRESSION: Spondylosis. Reading Location: [facility] CC: Daly Del Rio; Dr. 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 Jayson Medina se, DO Age/Sex: 69/F [place] [facility] Status: Signed Intake Vital Signs 09/06/24 14:26 10/08/24 08:11 10/14/24 09:24 Height 5 ft 10 in 5 ft 10 in 5 ft 10 in Weight: 247 lb BMI 35.4 BP 111/74 Blood Pressure Location Lt brachial Position Sitting Respiration 16 Pulse 69 Pulse Source Monitor BP Intake Visit Reasons: Hospital FU/Anxiety Accompanied by: Self Allergies prednisone Allergy (Verified 10/14/24 09:28) Itching hydrocodone (From Vicodin) Adverse Reaction (Severe, Verified 10/14/24 09:28) GI upset propoxyphene (From Darvocet-N) Adverse Reaction (Severe, Verified 10/14/24 09:28) GI upset cortisone Adverse Reaction (Intermediate, Verified 10/14/24 09:28) Unknown Medications ???Medication ???Instructions ???Recorded ???Confirmed ???Type pantoprazole 40 mg tablet,delayed 40 mg PO DAILY GERD 10/13/1810/01 History release (Protonix) cephalexin 250 mg tablet 250 mg PO QHS Antibiotic 09/23/19 10/14/24 History latanoprost 0.005 % eye drops 1 drp EACH EYE QHS eye drops 04/1310/14/24 History promethazine 25 mg tablet 25 mg PO Q6H PRN Nausea 08/24/20 0 10/14/24 History betamethasone dipropionate 0.05 % 1 applic topical QDAY PRN skin 10/14/24 History topical ointment irritation clobetasol 0.05 % topical cream 1 applic topical 0600,2200 PRN 06/0110/14/24 History Skin irritation clotrimazole 1 % topical cream 1 applic topical 0600,2200 PRN 06/0110/14/24 History Skin irritation hyoscyamine sulfate 0.125 mg 0.125 mg PO Q6 PRN nausea/vomiting 08/10/24 10/14/24 History disintegrating tablet primidone 50 mg tablet 100 mg PO BID Essential tremors 10/14/24 History timolol maleate 0.5 % eye drops 1 drp ophthalmic (eye) DAILY eye 0 08/10/24 10/14/24 History drops sotalol 80 mg tablet 80 mg PO BID BP #180 TABLETS 08/1710/14/24 Rx acetaminophen 325 mg tablet 650 mg (2 x 325 mg) PO Q6H PRN PRN 09/09/24 10/14/24 Rx Pain Score 1-10 #100 tabs alprazolam 0.25 mg tablet 0.25 mg PO Q6H PRN PRN 09/09/24 Rx Anxiety/Restlessness/Sl eep 1 week #15 tabs ferrous sulfate 325 mg (65 mg 325 mg PO DAILY supplement #1 TAB 09/09/24 10/14/24 Rx iron) tablet,delayed release fluticasone propionate 50 2 spray NASAL DAILY #1 BOTTLE 06/0110/14/24 Rx mcg/actuation nasal spray,suspension gabapentin 400 mg capsule 400 mg PO TID Nerve pain #90 caps 09/09/24 10/14/24 Rx loperamide 2 mg capsule 2 mg PO Q4H PRN PRN diarrhea #1 ca p 09/09/24 10/14/24 Rx magnesium chloride 64 mg 128 mg (2 x 64 mg) PO DAILY #30 10/14/24 Rx (magnesium chloride) tabs tablet,delayed release (Mag 64) oxycodone 5 mg tablet 5 mg PO Q6H PRN pain 1 week #15 10/14/24 Rx tabs potassium chloride 10 mEq 10 meq PO DAILYCM #30 tabs 5 10/14/24 Rx tablet,extended release(part/cryst) sertraline 100 mg tablet 100 mg PO DAILY #30 tabs 09/09/24 10/14/24 Rx aspirin 81 mg tablet 81 mg PO DAILY #1 TAB 09/10/2410/01 Rx ramelteon 8 mg tablet 8 mg PO QHS 10/08/24 10/14/24 Hist ory ustekinumab 90 mg/mL subcutaneous 90 mg subcut Q12W 10/14/24 History syringe (Stelara) Have you fallen in the past year?: No [facility] Medical History (Updated 10/14/24 @ 10:[address] Jayson Baker, ) Depression due to cerebrovascular accident (CVA) Kyphosis IBS (irritable bowel syndrome) Anxiety and depression Loud snoring Essential tremor Obesity (BMI 35.0-39.9 without comorbidity) Glaucoma Urge incontinence Stroke/cerebrovascular accident History of steroid therapy History of Holter monitoring Cardiology follow-up encounter Wears glasses Wears dentures Arthritis Pulmonary embolism Restless legs Back pain History of IBS History of Crohn's disease Gastric reflux Former smoker Leg cramps History of stress test Hx of echocardiogram History of trigger finger Wide-complex tachycardia (04/27/20) COVID-19 virus detected (01/24/20) Lumbar stenosis without neurogenic claudication Essential (primary) hypertension Thyroid goiter History of meningioma of the brain Hyperlipidemia Paroxysmal atrial fibrillation Surgical History (Reviewed 10/08/24 @ 09:09 by Mayra Maza SUPERVISOR [employer]INNING, SUPERVISOR H[employer] TINNING-C) History of cataract extraction History of craniectomy History of thumb surgery ( 05/2024) History of cystoscopy History of tonsillectomy and adenoidectomy Hx laparoscopic cholecystectomy History of carpal tunnel surgery of right wrist Hx of bilateral breast reduction surgery His (more content not included)... Normal [facility] Pulmonary Visit Reporton Pulmonary Visit Report [facility] [address] [place] [address] OFFICE VISIT Date of Service: 10/08/24 MR#: [id number] Acct: [id number] Name: AMANDA REYNA Rep #: [id number] : 1955 Provider: LUBA Maza Age/Sex: 69/F [place] [facility] Status: Signed Assessment and Plan Assessment and Plan (1) Nocturnal oxygen desaturation: Status: Chronic Comment: 2 L/min Plan: She is using and benefiting from 2 L/min of supplemental oxygen with sleep. Sleep apnea successfully ruled out during the polysomnogram. The patient did spend the majority of the time of testing on her back, therefore I believe this test result is reliable. The patient also believes that she slept well that night. No indication to repeat testing. Follow-up in 6 months to evaluate continued response to supplemental oxygen. She has been encouraged to contact the office with any new or worsening symptoms in the meantime. The patient is not complaining of any respiratory system symptoms. Therefore no indication for PFT or 6-minute walk test. Plan Details Additional Comments: This note was generated with JetSuiteation software. It may contain incorrect words, spelling, and punctuation that were not noted in checking the note before signing. Follow Up: 6 Months HPI Sleep problems Chief Complaint: Test results HPI Comments Details: This patient presents to the office today for initial consultation regarding concern for obstructive sleep apnea. She is ambulatory with use of a cane. She is on room air. The patient reports that she does snore. She was recently treated in the rehab unit following a cerebrovascular accident occurring on August 20, 2024. It was then that it was discovered she had nocturnal hypoxia and required 2 L/min of supplemental oxygen with sleep. The patient states that her states that her snoring is fairly quiet and not bothersome. The patient typically feels rested when she wakes up in the morning. She only occasionally naps. She is no longer nodding off to sleep since instituting the supplemental oxygen. She denies any difficulty with dry mouth or morning headaches. The patient is currently retired. She previously worked at the [employer] and [employer]. 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 The patient has a distant smoking history. She quit smoking 20 years ago. If you recall, the patient was seen here in [address] Saldana because that she had responded on some type of paperwork that she had a history of being a TB carrier. She has only been prescribed inhalers for occasional episodes of bronchitis. She is not on any maintenance inhalers. She denies any difficulty with shortness of breath. She denies any cough, sputum production or hemoptysis. She denies any wheezing, chest tightness, chest pain or palpitations. She denies any fever, chills or body aches. She is compliant with 2 L/min of supplemental oxygen with sleep. She states that she was surprised at how easily she acclimated to using the supplemental oxygen. She does not find herself taking it off. She believes it has been very helpful. Test results personally reviewed with the patient: Polysomnogram completed on September 23, 2024. 223 minutes recorded in the supine position. AHI 3.9 events per hour. Gamaliel of 81% recorded. Impression is that this study does not meet the definition used to define the presence of sleep apnea. He clinical correlation is suggested given the degree of desaturation that occurred. The patient spent 132 minutes equal to or less than 88%. 1 L of supplemental oxygen is suggested with sleep. Intake Vital Signs 09/06/24 14:26 10/08/24 08:11 Height 5 ft 10 in 5 ft 10 in Weight: 252 lb BMI 36.1 BP 117/75 Blood Pressure Location Lt brachial Position Sitting Respiration 18 Pulse 64 Pulse Source Monitor Temp 97.4 F L Temperature Source Temporal Artery Pulse Oximetry (%) 98 Oxygen Delivery Method room air Intake Visit Reasons: Sleep problems Chief Complaint: hemorrhagic stroke Import/Export Specialist Required: No DME Vendor: [employer] Accompanied by: Self Is patient in pain?: No Allergies prednisone Allergy (Verified 10/08/24 08:51) Itching hydrocodone (From Vicodin) Adverse Reaction (Severe, Verified 10/08/24 08:51) GI upset propoxyphene (From Darvocet-N) Adverse Reaction (Severe, Verified 10/08/24 08:51) GI upset cortisone Adverse Reaction (Intermediate, Verified 10/08/24 08:51) Unknown Medications ???Medication ???Instructions ???Recorded ???Confirmed ???Type pantoprazole 40 mg tablet,delayed 40 mg PO DAILY GERD 10/13/18 08/04/03 History release (Protonix) cephalexin 250 mg tablet 250 mg PO QHS Antibiotic 09/23/19 10/08/24 History (more content not included)... Normal [facility] Inital Evaluation (1) - PTon 10-07-2024 Inital Evaluation (1) - PT [facility] Physical Therapy [facility] [address] [place] [address] [address] [place] [id number] / REHABILITATION SERVICES INITIAL EVALUATION MR#: [id number] Acct: [id number] Name: AMANDA REYNA Rep #: [id number] : 1955 69 From: Margarita Mcallister DPT Referring Dr.: Dr. Debi Deleon DO Status: REG RCR Insurance: [facility] SELF PAY INSURANCE Patient's Visit Information Visit Information Visit Information: AMANDA REYNA is a 69 year old F referred to Physical Therapy by Dr. Debi Deleon DO with a diagnosis of CVA. Date of Evaluation: 10/07/24 Physical Therapist: Margarita Mcallister DPT Visit Plan Frequency: 2x /Week Duration: 4 Weeks Plan: Focus on functional mobility- stairs and balance HEP Given IE: sit to stand, tandem stance, SLS Subjective Subjective: Patient reports she had a stroke in the middle of August- it affected her right side- she was in [place] in the hospital- could not use her right leg at all- now she can move it and its doing well. She can walk, steps and do chores. She does not trust her balance to push the vacuum pecan cleaner. She has back issues so that's an issue. She does not carry a clothes basket or groceries anymore. She only used the cane when her back was really bothering her before now she uses is when she is in the community all the time. She has had low back pain for years- she goes back Dr. Hernandez for injections- she now has higher back pain that is now wrapping around- no compression fracture. She was told she can have an adjustment and she is planning on going in to have him do it. It bothers her the worst when she rolling over in bed and trying to relax the muscles. She has stopped using the weights with her upper body exercises. She is not seeing OT just PT. Goals: walk without the cane and feel more secure with balance. No falls since the stroke. Feels the right side is heavy- numbness in her right from the knee to the neck but none in her foot. Her feet hurt at night. Sleep: not disturbed. She lives with her and 2 dogs. She is fully indep with ADL's. She does most of the cooking and she is able to sweep and mop the floors. PMHx/Meds: see list in chart. Objective Objective: Posture: forward head, rounded shoulders Gait: straight cane- decreased amanda Stairs: asc recip with 2 HR, desc: non recip- turned to the left- bilateral HR HR/TR: able with UE A SLS: weight shift only Balance: see FGA ROM: WNL Strength: Core: fair, Hip: Left: Flexion: 25 Abd: 29 Extn: 47 Right: Flexion: 21 Abd: 27, Ext: 50 Knee: Left: Flexion: 32 Extn: 43 Right: Flexion: 35 Extn: 46. Ankle:5/5 Flex: HS: moderate, Gastroc: moderate Balance/Special Test Scores Functional Gait Assessment Score: 21 % Disability: 30.0000 Lower Extremity Functional Score: 42 30 Second Chair Rise Test Seconds: 8 Goals Goal 1:: Patient will be I with HEP and progression Goal Time Frame: 4-6 Weeks Goal 2:: Patient will desc 8 stairs recip Goal Time Frame: 4-6 Weeks Goal 3:: Patient will improve her FGA by 5 points Goal Time Frame: 4-6 Weeks Goal 4:: Patient will report 80% improvement Goal Time Frame: 4-6 Weeks Rehabilitation Potential Physical Therapy Diagnosis: Patient presents with decreased LE and core strength/stabilization, proprioception, flex and muscular endurance leading to increased fall risk, decreased confidence and inability to complete all ADL's. Rehabilitation Potential: Good Anticipated Interventions Patient/Client Instruction: Educate patient on: Benefits of Fitness Program Therapeutic Exercise to Include: Strength training, Endurance training, Balance training, Coordination, Agility training, Body mechanics, Postural training, Flexibilty training, Gait and locomotor training, Neuromotor development, Passive ROM, Active ROM, Dynamic Lumbar Stabilization and Scapular Strength/Stabilization For the Purpose of:: To improve muscle performance and motor function Text: Thank you for the opportunity to evaluate your patient. For Medicare and Medicare HMO plans, please review the plan of care and approve it. It will need to be FAXED BACK to us at [phone] for Medicare purposes. For Medicare only, by signing this I certify the plan of care. Please let me know if there are questions or concerns regarding this plan of care. Physician Signature: Date: 10/07/24 1026 CC: Dr. Ottoniel Page, DO; Dr. Debi Deleon, DO ELR Signed Normal [facility] L/S Spine Min 4 Viewson 09-08 L/S Spine Min 4 Views [facility] Imaging Services [address] [place], [place] [address] L/S Spine Min 4 Views MR#: [id number] Acct: [id number] Name: AMANDA REYNA Rep #: [id number] : 1955 F 69 From: Ottoniel Hooker MD PCP: Dr. Ottoniel Page DO Status: REG CLI Study: L/S Spine Min 4 Views Date of Exam: 10/01/24 Exam# [id number] Ordering Dr: Ottoniel Page DO EXAM: XR Lumbosacral Spine, 4 or 5 Views CLINICAL INDICATION: PAIN TECHNIQUE: Frontal, lateral and bilateral oblique views of the lumbar spine. COMPARISON: No relevant prior studies available. FINDINGS: VERTEBRAE: Grade 1 anterior spondylolisthesis of L4 over L5 by 5 mm. Multilevel endplate degenerative change of the visualized spine. Facet arthropathy of L4-S1. No acute fracture. SACRUM/COCCYX: Unremarkable as visualized. No acute fracture. DISC SPACES: Mild disc degeneration of L4-5 and L5-S1. SOFT TISSUES: Unremarkable. VASCULATURE: Scattered calcified atherosclerotic disease of aorta. RAD/L/S Spine Min 4 Views IMPRESSION: 1. No acute fracture. 2. Grade 1 anterior spondylolisthesis of L4 over L5 by 5 mm. 3. Degenerative changes as above. Reading Location: [facility] CC: Dr. Ottoniel Page DO Automatic Die Cutting Machine Operator: Signed Normal [facility] Thoracic Spine 3 Viewson Thoracic Spine 3 Views [facility] Imaging Services [address] [place] [address] Thoracic Spine 3 Views MR#: [id number] Acct: [id number] Name: AMANDA REYNA Rep #: [id number] : 1955 F 69 From: Joi Lamas MD PCP: Dr. Ottoniel Page DO Status: REG CLI Study: Thoracic Spine 3 Views Date of Exam: 10/01/24 Exam# [id number] Ordering Dr: Ottoniel Page DO PROCEDURE: THORACIC SPINE 3 VIEWS 10/01/2024 REASON FOR EXAM: PAIN TECHNIQUE: THORACIC SPINE 3 VIEWS COMPARISON: None. FINDINGS: Vertebrae: No acute bony abnormalities. Discs: Multilevel disc space narrowing with sclerotic endplates and marginal osteophytes. Alignment: Normal alignment. RAD/Thoracic Spine 3 Views IMPRESSION: No acute bony abnormalities. Reading Location: [facility] CC: Dr. Ottoniel Page, DO Automatic [employer] Cutting Machine Operator: Signed Normal [facility] Urine Cultureon 09-22-2024 URC Escherichia coli [place] Count 11,000-25,000 Escherichia coli: REACTION Ampicillin Islt JOSÉ MIGUEL >=32 Ampicillin+Sulbac Islt JOSÉ MIGUEL 16 I Cefepime Islt JOSÉ MIGUEL <=0.12 S cefTRIAXone Islt JOSÉ MIGUEL 32 R Ciprofloxacin Islt JOSÉ MIGUEL <=0.06 S B-Lactamase Extended Susc Islt NEG Gentamicin Islt JOSÉ MIGUEL <=1 S levoFLOXacin Islt JOSÉ MIGUEL <=0.12 S Meropenem Islt JOSÉ MIGUEL <=0.25 S Nitrofurantoin Islt JOSÉ MIGUEL <=16 S Pip+Tazo Islt JOSÉ MIGUEL <=4 S TMP SMX Islt JOSÉ MIGUEL <=20 S Normal [facility] Comment on above: Performed By: #### L 400. ####[facility] [address] [place], [address] Urinalysis, Routine (Dipstic k)on 09-20-2024 BILIRUBIN URINE Negative Normal Negative [facility] Comment on above: Order Comment: CUUR[facility] LEAN CATCH Performed By: #### L 400. ####[facility] [address] [place], [address] Clarity (U) Sl. Cloudy Normal Clear [facility] Comment on above: Order Comment: CUURC LEAN CATCH Performed By: #### L 400. ####[facility] [address] [place], [address] Color (U) Yellow Normal Yellow [facility] Comment on above: Order Comment: [facility] LEAN CATCH Performed By: #### L 400. ####[facility] [address] [place], [address] GLUCOSE, UR Normal Normal Normal [facility] Comment on above: Order Comment: [facility]URC LEAN CATCH Performed By: #### L 400.2010, ####[facility] [address] [place], [address] KETONE UR Negative Normal Negative [facility] Comment on above: Order Comment: CUURC LEAN CATCH Performed By: #### L 400.2010, ####[facility] [address] [place], [address] LEUK ESTERASE 500 /ul Abnormal Negative [facility] Comment on above: Order Comment: [facility]URC LEAN CATCH Performed By: #### L 400.2010, ####[facility] [address] [place], [address] Nitrite Ql (U) Negative Normal Negative [facility] Comment on above: Order Comment: CUURC LEAN CATCH Performed By: #### L 400.2010, ####[facility] [address] [place], [address] OCCULT BLOOD-UR 10 /ul Abnormal Negative [facility] Comment on above: Order Comment: [facility]URC LEAN CATCH Performed By: #### L 400.2010, ####[facility] [address] [place], [address] pH UR 5.0 Normal 5.0 - 8.0 [facility] Comment on above: Order Comment: [facility]URC LEAN CATCH Performed By: #### L 400.2010, ####[facility] [address] [place], [address] PROT DIPSTX 15 mg/dl Abnormal Negative [facility] Comment on above: Order Comment: [facility]C LEAN CATCH Performed By: #### L 400.2010, ####[facility] [address] [place], [address] SP.GR. DIPSTX 1.025 Normal 1.002-1.030 [facility] Comment on above: Order Comment: CUURC LEAN CATCH Performed By: #### L 400.2010, M1.2199 ####[facility] [address] [place], [address] UROBILI Normal Normal Normal [facility] Comment on above: Order Comment: CUURC LEAN CATCH Performed By: #### L 400.2010, .2199 ####[facility] [address] [place], [address] Basic Metabolic Profile (BMP )on 09-17-2024 BUN/CRE 14.5 RATIO Normal 10-20 [facility] Comment on above: Performed By: #### L 501.5200, L500.2500 #### [facility] Laboratory [address] [place], [address] Calcium [Mass/Vol] 9.1 mg/dL Normal 7.6-11.0 [facility] Comment on above: Performed By: #### L 501.5200, L500.2500 #### [facility] [address] [place], [address] Chloride [Moles/Vol] 101 mmol/L Normal 98-108 [facility] Comment on above: Performed By: #### L 501.5200, L500.2500 #### [facility] [address] [place], [address] CO2 [Moles/Vol] 24.7 mmol/L Normal 21.0-32.0 [facility] Comment on above: Performed By: #### L 501.5200, L500.2500 #### [facility] [address] [place], [address] Creatinine [Mass/Vol] 0.62 mg/dL Low 0.70-1.20 [facility] Comment on above: Performed By: #### L 501.5200, L500.2500 #### [facility] [address] [place], [address] GAP 12 Normal 5-15 [facility] Comment on above: Performed By: #### L 501.5200, L500.2500 #### [facility] [address] [place], [address] GFR/1.73 sq M.predicted among non-blacks MDRD (S/P/Bld) [Vol rate/Area] 96 mL/min/{1.73_m2} Normal >60 [facility] Comment on above: Result Comment: mL/m in/1.73m2 CKD-EPI Creatinine Equation (2020) Performed By: #### L 501.5200, L500.2500 #### [facility] [address] [place], [address] Glucose [Mass/Vol] 126 mg/dL High 70-99 [facility] Comment on above: Performed By: #### L 501.5200, L500.2500 #### [facility] [address] [place], [address] Potassium [Moles/Vol] 3.7 mmol/L Normal 3.3-5.1 [facility] Comment on above: Performed By: #### L 501.5200, L500.2500 #### [facility] [address] [place], [address] Sodium [Moles/Vol] 138 mmol/L Normal 133-145 [facility] Comment on above: Performed By: #### L 501.5200, L500.2500 #### [facility] [address] [place], [address] Urea nitrogen [Mass/Vol] 9 mg/dL Normal 4-19 [facility] Comment on above: Performed By: #### L 501.5200, L500.2500 #### [facility] [address] [place], [address] Magnesiumon 09-17-2024 Magnesium [Mass/Vol] 1.8 mg/dL Normal 1.5-2.2 [facility] Comment on above: Performed By: #### L 501.5200, L500.2500 #### [facility] [address] [place], [address] Discharge Instructionon 07-0 Discharge Instruction [facility] Medical Records Department [address] [place] [address] Instructions for Home/Discharge Instructions 09/09/24 1225 MR#: [id number] Acct: [id number] Name: AMANDA REYNA Rep #: [id number] : 1955 69 From: Debi Deleon DO PCP: Dr. Ottoniel Page DO Status:ADM IN Discharge Instructions Diet Discharge Diet: - (Low-fat, low-salt) DC O2, CPAP, BIPAP needs Home O2 Discharge instructions: Yes Type of respiratory needs?: Oxygen Oxygen frequency: With Sleeping Oxygen liters per minute when sleepin Dressing / Incision Discharge Activity: May Not Drive and - (use a cane or a Walker for ambulation. ) Weight Bearing Status: Full weight bearing Keep extremity elevated above heart level: Legs Dressing / Incision Call your doctor if your incision/area has: Continuous Slow Oozing, Sudden Increased Bleeding, Increased Pain/ Swelling, Increased Redness, Foul Smelling Discharge and Swelling at the incision site Call your doctor if you observe: Fever of 101 or Higher, Shortness of breath, Dizziness, Fainting spells, Swelling in the ankles, Chest pain, Increased palpitations (irregular heartbeat), Calf discomfort, Uncontrolled pain and - (STROKE symptoms: facial droop, slurred speech, inability to get words out, weakness on 1 side of the body and not the other, numbness on 1 side of the body and not the other, inability to maintain your balance sitting or standing, vertigo. ) Suture Line Care: Avoid Pulling/Pushing and Avoid Pinching/Bending Cleanse incision/area with: Soap Water Additional Dressing/Incision Instructions:: No dressing is need. Leave the incision open to air. Follow Up Care Please Follow Up With: Ottoniel Page When: a message was left with the office to call you with and appt. You should be seen within 7-10 days post discharge from rehab. Other appts need to be made.....listed at the end of the discharge instructions. Test Results: Test results from this visit will be discussed in further detail at your follow-up appointment, if applicable. Pending Tests Upon Discharge: none Discharge Plan Admission Admit Date/Time: 08/29/24 12:48 Primary Reason for Your Visit: Debility secondary to craniotomy for left parietal intraparenchymal hemorrh Attending Provider: Debi Deleon Primary Care Provider: Ottoniel Page Instructions Patient Instructions: Caring for Your Incision Additional Instructions / Restrictions: 1. I believe the restless leg was due to untreated sleep apnea and iron deficiency. I also believe the Ropinirole was causing augmentation and making things worse. I believe the Ropinirole was contributing to chronic nausea, lightheadedness, fatigue and headache. Since the ropinirole has been decreased and we have been applying oxygen anytime you are sleeping and we have given you IV iron the restless less is much better. Actually I think the soreness/stiffness and pain in the legs you are having at the end of the day are due to your chronic back problems and the increased amount of exercise you have been doing. I think it would be a good idea to continue to use Oxycodone in the evening to treat this. since the oxygen you are sleeping good at night and you are very alert during the day and taking less naps. The sleep lab will call you to schedule a sleep study and we have ordered oxygen for you to have at home anytime you are sleeping. 2. Outwardly you do not appear very anxious but, you have a lot of anxiety and you have even been treated for panic attacks in the past. Wellbutrin is a good antidepressant but, it does not treat anxiety and in fact it can cause increased anxiety, insomnia and headaches. WE have discontinued Wellbutrin and started you a medication called Sertraline that treats both anxiety and depression. It takes this medication 3-4 weeks to get the full effect. In the meantime I am giving you a prescription for Xanax (also called alprazolam) to take every 4-6 hours as needed for anxiety/panic attacks. You have not had to take much of this while on rehab. I think the diarrhea has more to do with irritable bowel syndrome (IBS) rather than Crohn's. Anxiety increase IBS sx. With IBS the diarrhea happens usually only during the day and does not wake you up at night. With IBS you will not have mucous or blood in the stool. I always think medication and counselling work much better together than either alone. I think you may benefit from follow up with behavioral health at Discharge. 3. I discontinued the hydrochlorothiazide (HCTZ) that you were taking. Your potassium and magnesium have both been low despite discontinuing hydrochlorothiazide. You will now take a potassium supplement and a magnesium supplement. We should recheck your lab in approximately 1 week to make sure that potassium/magnesium are now within normal limits. The swelling in your legs is (more content not included)... Normal [facility] Folates, RBCon 09-08-2024 Fol.,Hemolysate 499.0 ng/mL Normal Not Estab. [facility] Comment on above: Performed By: #### L 206.5600, L3904.2917 ####[facility] [address] [place], [address] Folate, RBC 1251 ng/mL Normal >498 [facility] Comment on above: Result Comment: Perf ormed at: - [facility] [address] [id number] Remote Inpatient Coder: Facundo Gray PhD, Phone: [phone] Performed By: #### L 820.5609, S2078.9608 ####[facility] [address] [place], [address] Hematocrit (Bld) [Volume fraction] 39.9 % Normal 34.0-46.6 [facility] Comment on above: Performed By: #### L 5015600, L3237.1723 ####[facility] [address] [place], [place], [id number] Erythrocyte folate measureme nt with hematocritOrdered By: Debi Deleon on 09-07-2024 Hematocrit (Bld) [Volume fraction] 39.9 % 34.0-46.6 [facility] Potassiumon 09-07-2024 Potassium [Moles/Vol] 3.4 mmol/L Normal 3.3-5.1 [facility] Comment on above: Performed By: #### L 501.5600, L3100.1725 ####[facility] [address] [place], [address] Potassium measurement (mass/ volume)Ordered By: Debi Deleon on 09-07-2024 Potassium (Unsp spec) [Mass/Vol] 3.4 mmol/L 3.3-5.1 [facility] Anion gap in Serum or Plasma Ordered By: Debi Deleon on 09-03-2024 Anion gap [Moles/Vol] 13 mmol/L 07-22 [facility] BUN/creatinine ratioOrdered By: Debi Deleon on 09-03-2024 Urea nitrogen/Creatinine [Mass ratio] 13.8 mg/mg 12-27 [facility] Basic Metabolic Profile (BMP )on 09-03-2024 BUN/CRE 13.8 RATIO Normal 12-27 [facility] Comment on above: Performed By: #### L 500.2500, L501.5200, L100.0600 #### [facility] [address] [place], [address] Calcium [Mass/Vol] 9.1 mg/dL Normal 7.6-11.0 [facility] Comment on above: Performed By: #### L 500.2500, L501.5200, L100.0600 #### [facility] [address] [place], [address] Chloride [Moles/Vol] 102 mmol/L Normal 98-108 [facility] Comment on above: Performed By: #### L 500.2500, L501.5200, L100.0600 #### [facility] [address] [place], [address] CO2 [Moles/Vol] 21.3 mmol/L Normal 21.0-32.0 [facility] Comment on above: Performed By: #### L 500.2500, L501.5200, L100.0600 #### [facility] [address] [place], [address] Creatinine [Mass/Vol] 0.58 mg/dL Low 0.70-1.20 [facility] Comment on above: Performed By: #### L 500.2500, L501.5200, L100.0600 #### [facility] [address] [place], [address] ECRCL 89.58 ml/min Normal 50-250 [facility] Comment on above: Performed By: #### L 500.2500, L501.5200, L100.0600 #### [facility] [address] [place], [address] GAP 13 Normal 5-15 [facility] Comment on above: Performed By: #### L 500.2500, L501.5200, L100.0600 #### [facility] [address] [place], [address] GFR/1.73 sq M.predicted among non-blacks MDRD (S/P/Bld) [Vol rate/Area] 98 mL/min/{1.73_m2} Normal >60 [facility] Comment on above: Result Comment: mL/m in/1.73m2 CKD-EPI Creatinine Equation (2020) Performed By: #### L 500.2500, L501.5200, L100.0600 #### [facility] [address] [place], [address] Glucose [Mass/Vol] 107 mg/dL High 70-99 [facility] Comment on above: Performed By: #### L 500.2500, L501.5200, L100.0600 #### [facility] [address] [place], [address] Potassium [Moles/Vol] 3.5 mmol/L Normal 3.3-5.1 [facility] Comment on above: Performed By: #### L 500.2500, L501.5200, L100.0600 #### [facility] [address] [place], [address] Sodium [Moles/Vol] 136 mmol/L Normal 133-145 [facility] Comment on above: Performed By: #### L 500.2500, L501.5200, L100.0600 #### [facility] [address] [place], [address] Urea nitrogen [Mass/Vol] 8 mg/dL Normal 4-19 [facility] Comment on above: Performed By: #### L 500.2500, L501.5200, L100.0600 #### [facility] [address] [place], [address] Carbon dioxide, total [Moles /volume] in Central venous bloodOrdered By: Debi Deleon on 09-03-2024 CO2 [Moles/Vol] 21.3 mmol/L 21.0-32.0 [facility] Chloride assayOrdered By: Gerald Deleon on 09-03-2024 Chloride [Moles/Vol] 102 mmol/L 98-108 [facility] Glomerular filtration rate ( GFR) estimation/1.73 sq m using serum, plasma, or whole bOrdered By: Debi Deleon on 09-03-2024 GFR/1.73 sq M.predicted among non-blacks MDRD (S/P/Bld) [Vol rate/Area] 98 mL/min/{1.73_m2} >60 [facility] Comment on above: mL/min/1.73m2 CKD-EP I Creatinine Equation (2020) HH, Hemoglobin AND Hematocri ton 09-03-2024 Hematocrit (Bld) [Volume fraction] 40.3 % Normal 37-47 [facility] Comment on above: Performed By: #### L 500.2500, L501.5200, L100.0600 #### [facility] [address] [place], [address] Hemoglobin (Bld) [Mass/Vol] 12.5 g/dL Normal 12.0-15.0 [facility] Comment on above: Performed By: #### L 500.2500, L501.5200, L100.0600 #### [facility] [address] [place], [place], [id number] Hematocrit Auto (Bld) [Volum e fraction]Ordered By: Debi dArienne on 09-03-2024 Hematocrit (Bld) [Volume fraction] 40.3 % 37-47 [facility] Hemoglobin measurementOrdere d By: Debi Adrienne on 09-03-2024 Hemoglobin (Bld) [Mass/Vol] 12.5 g/dL 12.0-15.0 [facility] Magnesiumon 09-03-2024 Magnesium [Mass/Vol] 1.9 mg/dL Normal 1.5-2.2 [facility] Comment on above: Performed By: #### L 500.2500, L501.5200, L100.0600 #### [facility] [address] [facility] [place], [place], [address] Magnesium measurement (mass/ volume)Ordered By: Debi Deleon on 09-03-2024 Magnesium (Unsp spec) [Mass/Vol] 1.9 mg/dL 1.5-2.2 [facility] Serum creatinine measurement (mass/volume)Ordered By: Debi Deleon on 09-03-2024 Creatinine [Mass/Vol] 0.58 mg/dL Low 0.70-1.20 [facility] Serum glucose measurement (m ass/volume)Ordered By: Debi Deleon on 09-03-2024 Glucose [Mass/Vol] 107 mg/dL High 70-99 [facility] Serum or plasma calcium [place] urement (mass/volume)Ordered By: Debi Deleon on 09-03-2024 Calcium [Mass/Vol] 9.1 mg/dL 7.6-11.0 [facility] Serum or plasma urea nitroge n measurement (mass/volume)Ordered By: Debi Deleon on 09-03-2024 Urea nitrogen [Mass/Vol] 8 mg/dL 4-19 [facility] Sodium levelOrdered By: Debi Deleon on 09-03-2024 Sodium [Moles/Vol] 136 mmol/L 133-145 [facility] Absolute lymphocyte countOrd ered By: Debi Deleon on 08-30-2024 Lymphocytes Auto (Unsp spec) [#/Vol] 1.70 10*3/uL 0.83-4.51 [facility] Absolute neutrophil countOrd ered By: Debi Deleon on 08-30-2024 Neutrophils (Bld) [#/Vol] 4.6 10*3/uL 2.0-7.7 [facility] Automated lymphocyte count a s percentage of total leukocytesOrdered By: Debi Deleon on 08-30-2024 Lymphocytes/100 WBC Auto (Unsp spec) 23.1 % 19-41 [facility] Basic Metabolic Profile (BMP )on 08-30-2024 BUN/CRE 13.8 RATIO Normal 10-20 [facility] Comment on above: Performed By: #### L 500.2500, L501.5200, L100.0100, L501.2300 ####[facility] [address] [place], [address] Calcium [Mass/Vol] 9.3 mg/dL Normal 7.6-11.0 [facility] Comment on above: Performed By: #### L 500.2500, L501.5200, L100.0100, L501.2300 ####[facility] [address] [place], [address] Chloride [Moles/Vol] 99 mmol/L Normal 98-108 [facility] Comment on above: Performed By: #### L 500.2500, L501.5200, L100.0100, L501.2300 ####[facility] [address] [place], [address] CO2 [Moles/Vol] 25.8 mmol/L Normal 21.0-32.0 [facility] Comment on above: Performed By: #### L 500.2500, L501.5200, L100.0100, L501.2300 ####[facility] [address] [place], [address] Creatinine [Mass/Vol] 0.58 mg/dL Low 0.70-1.20 [facility] Comment on above: Performed By: #### L 500.2500, L501.5200, L100.0100, L501.2300 ####[facility] [address] [place], [address] ECRCL 89.62 ml/min Normal 50-250 [facility] Comment on above: Performed By: #### L 500.2500, L501.5200, L100.0100, L501.2300 ####[facility] [address] [place], [address] GAP 11 Normal 5-15 [facility] Comment on above: Performed By: #### L 500.2500, L501.5200, L100.0100, L501.2300 ####[facility] [address] [place], [address] GFR/1.73 sq M.predicted among non-blacks MDRD (S/P/Bld) [Vol rate/Area] 98 mL/min/{1.73_m2} Normal >60 [facility] Comment on above: Result Comment: mL/m in/1.73m2 CKD-EPI Creatinine Equation (2020) Performed By: #### L 500.2500, L501.5200, L100.0100, L501.2300 ####[facility] [address] [place], [address] Glucose [Mass/Vol] 116 mg/dL High 70-99 [facility] Comment on above: Performed By: #### L 500.2500, L501.5200, L100.0100, L501.2300 ####[facility] [address] [place], [address] Potassium [Moles/Vol] 3.9 mmol/L Normal 3.3-5.1 [facility] Comment on above: Performed By: #### L 500.2500, L501.5200, L100.0100, L501.2300 ####[facility] [address] [place], [address] Sodium [Moles/Vol] 136 mmol/L Normal 133-145 [facility] Comment on above: Performed By: #### L 500.2500, L501.5200, L100.0100, L501.2300 ####[facility] [address] [place], [address] Urea nitrogen [Mass/Vol] 8 mg/dL Normal 4-19 [facility] Comment on above: Performed By: #### L 500.2500, L501.5200, L100.0100, L501.2300 ####[facility] [address] [place], [address] Basophil percentageOrdered B y: Debi eDnsonrowdy on 08-30-2024 Basophils/100 WBC (Bld) 0.9 % 0-1 [facility] Bilirubin directOrdered By: Debi Adrienne on 08-30-2024 Bilirubin.direct [Mass/Vol] 0.21 mg/dL 0.00-0.30 [facility] Bilirubin, totalOrdered By: Debi Adrienne on 08-30-2024 Bilirubin [Mass/Vol] 0.59 mg/dL 0.00-1.30 [facility] CBC W/Diff, Automatedon 08-09 Absolute Lymph 1.70 X10 3/uL Normal 0.83-4.51 [facility] Comment on above: Performed By: #### L 500.2500, L501.5200, L100.0100, L501.2300 ####[facility] [address] [place], [address] Absolute Neut 4.6 X10 3/uL Normal 2.0-7.7 [facility] Comment on above: Performed By: #### L 500.2500, L501.5200, L100.0100, L501.2300 ####[facility] [address] [place], [address] Basophils/100 WBC (Bld) 0.9 % Normal 0-1 [facility] Comment on above: Performed By: #### L 500.2500, L501.5200, L100.0100, L501.2300 ####[facility] [address] [place], [address] Eosinophils/100 WBC (Bld) 2.6 % Normal 0-5 [facility] Comment on above: Performed By: #### L 500.2500, L501.5200, L100.0100, L501.2300 ####[facility] [address] [place], [address] Erythrocyte distribution width (RBC) [Ratio] 13.8 % Normal 11.6-14.6 [facility] Comment on above: Performed By: #### L 500.2500, L501.5200, L100.0100, L501.2300 ####[facility] [address] [place], [address] Hematocrit (Bld) [Volume fraction] 41.5 % Normal 37-47 [facility] Comment on above: Performed By: #### L 500.2500, L501.5200, L100.0100, L501.2300 ####[facility] [address] [place], [address] Hemoglobin (Bld) [Mass/Vol] 13.2 g/dL Normal 12.0-15.0 [facility] Comment on above: Performed By: #### L 500.2500, L501.5200, L100.0100, L501.2300 ####[facility] [address] [place], [address] IG% 0.500 Normal 0.0-0.9 [facility] Comment on above: Result Comment: IG% - Immature Granulocytes (promyelocytes, myelocytes and metamyelocytes) > 1% indicates that a LEFT SHIFT is Present. Performed By: #### L 500.2500, L501.5200, L100.0100, L501.2300 ####[facility] [address] [place], [address] Lymphocytes/100 WBC (Bld) 23.1 % Normal 19-41 [facility] Comment on above: Performed By: #### L 500.2500, L501.5200, L100.0100, L501.2300 ####[facility] [address] [place], [address] MCH (RBC) [Entitic mass] 26.8 pg Low 27.0-32.0 [facility] Comment on above: Performed By: #### L 500.2500, L501.5200, L100.0100, L501.2300 ####[facility] [address] [place], [address] MCHC (RBC) [Mass/Vol] 31.8 g/dL Low 32-36 [facility] Comment on above: Performed By: #### L 500.2500, L501.5200, L100.0100, L501.2300 ####[facility] [address] [place], [address] MCV (RBC) [Entitic vol] 84.3 fL Normal 81-99 [facility] Comment on above: Performed By: #### L 500.2500, L501.5200, L100.0100, L501.2300 ####[facility] [address] [place], [address] Monocytes/100 WBC (Bld) 10.3 % High 0-10 [facility] Comment on above: Performed By: #### L 500.2500, L501.5200, L100.0100, L501.2300 ####[facility] [address] [place], [address] Neutrophils/100 WBC (Bld) 62.6 % Normal 47-70 [facility] Comment on above: Performed By: #### L 500.2500, L501.5200, L100.0100, L501.2300 ####[facility] [address] [place], [address] Nucleated RBC (Bld) [#/Vol] 0 10*3/uL Normal 0-5 [facility] Comment on above: Performed By: #### L 500.2500, L501.5200, L100.0100, L501.2300 ####[facility] [address] [place], [address] Platelet mean volume (Bld) [Entitic vol] 11.8 fL Normal 6.2-12.0 [facility] Comment on above: Performed By: #### L 500.2500, L501.5200, L100.0100, L501.2300 ####[facility] [address] [place], [address] Platelets (Bld) [#/Vol] 195 10*3/uL Normal 150-450 [facility] Comment on above: Performed By: #### L 500.2500, L501.5200, L100.0100, L501.2300 ####[facility] [address] [place], [address] RBC (Bld) [#/Vol] 4.92 10*6/uL Normal 4.2-5.4 [facility] Comment on above: Performed By: #### L 500.2500, L501.5200, L100.0100, L501.2300 ####[facility] [address] [place], [address] RDW SD 42.5 fl Normal 35.1-43.9 [facility] Comment on above: Performed By: #### L 500.2500, L501.5200, L100.0100, L501.2300 ####[facility] [address] [place], [address] WBC (Bld) [#/Vol] 7.4 10*3/uL Normal 4.4-11.0 [facility] Comment on above: Performed By: #### L 500.2500, L501.5200, L100.0100, L501.2300 ####[facility] [address] [place], [address] Eosinophil percentageOrdered By: Debi Densonrowdy on 08-30-2024 Eosinophils/100 WBC (Bld) 2.6 % 0-5 [facility] Erythrocyte distribution wid th ratioOrdered By: Debi Densonrowdy on 08-30-2024 Erythrocyte distribution width (RBC) [Ratio] 13.8 % 11.6-14.6 [facility] Erythrocyte distribution wid th standard deviationOrdered By: Deib Densonrowdy on 08-30-2024 Erythrocyte distribution width (RBC) [Ratio] 42.5 fl 35.1-43.9 [facility] Ferritinon 08-30-2024 Ferritin [Mass/Vol] 213 ng/mL Normal 22-378 [facility] Comment on above: Performed By: #### L 501.5200, L500.2500 #### [facility] [address] [place], [address] Immature granulocytes/100 WB C Auto (Bld)Ordered By: Debi Adrienne on 08-30-2024 Immature granulocytes/100 WBC (Bld) 0.500 % 0.0-0.9 [facility] Comment on above: IG% - Immature Granu locytes (promyelocytes, myelocytes and metamyelocytes) > 1% indicates that a LEFT SHIFT is Present. Iron measurement (mass/mass) Ordered By: Debi Adrienne on 08-30-2024 Iron (Unsp spec) [Mass/Mass] 34 ug/dL Low 50-170 [facility] Iron+Iron Binding Capacityon 08-30-2024 Iron [Mass/Vol] 34 ug/dL Low 50-170 [facility] Comment on above: Performed By: #### L 501.5200, L500.2500 #### [facility] [address] [place], [address] IRON SATURATION 12.0 Low 13-59 [facility] Comment on above: Performed By: #### L 501.5200, L500.2500 #### [facility] [address] [place], [address] TIBC 281 ug/dL Normal 250-450 [facility] Comment on above: Performed By: #### L 501.5200, L500.2500 #### [facility] [address] [place], [address] UIBC 247 ug/dL Normal 228-428 [facility] Comment on above: Performed By: #### L 501.5200, L500.2500 #### [facility] [address] [place], [address] Laboratory - Chemistry and C hemistry - challengeOrdered By: Debi Deleon on 08-30-2024 AST [Catalytic activity/Vol] 21 U/L <32 [facility] Liver Profileon 08-30-2024 Albumin [Mass/Vol] 3.5 g/dL Normal 3.4-4.8 [facility] Comment on above: Performed By: #### L 500.3400 #### [facility] [address] [place], [address] ALK PHOS 69 U/L Normal 35-104 [facility] Comment on above: Performed By: #### L 500.3400 #### [facility] [address] [place], [address] ALT [Catalytic activity/Vol] 25 U/L Normal <=34 [facility] Comment on above: Performed By: #### L 500.3400 #### [facility] [address] [place], [address] AST [Catalytic activity/Vol] 21 U/L Normal <=31 [facility] Comment on above: Performed By: #### L 500.3400 #### [facility] [address] [place], [address] Bilirubin [Mass/Vol] 0.59 mg/dL Normal 0.00-1.30 [facility] Comment on above: Performed By: #### L 500.3400 #### [facility] [address] [place], [address] Bilirubin.direct [Mass/Vol] 0.21 mg/dL Normal 0.00-0.30 [facility] Comment on above: Performed By: #### L 500.3400 #### [facility] [address] [place], [address] Globulin (S) [Mass/Vol] 2.9 g/dL Normal 2.2-4.2 [facility] Comment on above: Performed By: #### L 500.3400 #### [facility] [address] [place], [address] T PROT 6.4 g/dL Normal 5.9-8.4 [facility] Comment on above: Performed By: #### L 500.3400 #### [facility] [address] [place], [address] MCV (mean corpuscular volume ) determinationOrdered By: Debi Deleon on 08-30-2024 MCV (RBC) [Entitic vol] 84.3 fL 81-99 [facility] Magnesiumon 08-30-2024 Magnesium [Mass/Vol] 1.8 mg/dL Normal 1.5-2.2 [facility] Comment on above: Performed By: #### L 500.2500, L501.5200, L100.0100, L501.2300 ####[facility] [address] [place], [address] Mean corpuscular hemoglobin (MCH) determinationOrdered By: Debi Deleon on 08-30-2024 MCH (RBC) [Entitic mass] 26.8 pg Low 27.0-32.0 [facility] Mean corpuscular hemoglobin concentration (MCHC) determinationOrdered By: Debi Adrienne on 08-30-2024 MCHC (RBC) [Mass/Vol] 31.8 g/dL Low 32-36 [facility] Mean platelet volume determi nationOrdered By: Debi Deleon on 08-30-2024 Platelet mean volume (Bld) [Entitic vol] 11.8 fL 6.2-12.0 [facility] Monocyte percentageOrdered B y: Debi Deleon on 08-30-2024 Monocytes/100 WBC (Bld) 10.3 % High 0-10 [facility] Neutrophil percentageOrdered By: Debi Deleon on 08-30-2024 Neutrophils/100 WBC (Bld) 62.6 % 47-70 [facility] No Panel InformationOrdered By: Debi Deleon on 08-30-2024 Unsaturated Iron Binding Capacity 247 ug/dL 228-428 [facility] Nucleated red blood cell per centageOrdered By: Debi Deleon on 08-30-2024 Nucleated RBC/100 WBC (Bld) [Ratio] 0 % 0-5 [facility] Phosphoruson 08-30-2024 Phosphate [Mass/Vol] 4.0 mg/dL Normal 2.7-4.5 [facility] Comment on above: Performed By: #### L 500.2500, L501.5200, L100.0100, L501.2300 ####[facility] [address] [place], [place], [id number] Platelet countOrdered By: Gerald Deleon on 08-30-2024 Platelets (Bld) [#/Vol] 195 10*3/uL 150-450 [facility] RBC Auto (Bld) [#/Vol]Ordere d By: Debi Deleon on 08-30-2024 RBC (Bld) [#/Vol] 4.92 10*6/uL 4.2-5.4 [facility] Serum globulin measurementOr dered By: Debi Deleon on 08-30-2024 Globulin (S) [Mass/Vol] 2.9 g/dL 2.2-4.2 [facility] Serum or plasma alanine byers otransferase (ALT) measurementOrdered By: Debi Adrienne on 08-30-2024 ALT [Catalytic activity/Vol] 25 U/L <35 [facility] Serum or plasma albumin [place] urement (mass/volume)Ordered By: Debi Adrienne on 08-30-2024 Albumin [Mass/Vol] 3.5 g/dL 3.4-4.8 [facility] Serum or plasma alkaline kristy sphatase measurementOrdered By: Debi Deleon on 08-30-2024 ALP [Catalytic activity/Vol] 69 U/L 35-104 [facility] Serum or plasma ferritin augusto surement (mass/volume)Ordered By: Debi Adrienne on 08-30-2024 Ferritin [Mass/Vol] 213 ng/mL 22-378 [facility] Serum or plasma iron saturat ion measurement (mass fraction)Ordered By: Debi Adrienne on 08-30-2024 Iron saturation [Mass fraction] 12.0 % Low 13-59 [facility] Total proteinOrdered By: Mckenzie shelton Adrienne on 08-30-2024 Protein [Mass/Vol] 6.4 g/dL 5.9-8.4 [facility] White blood cell (WBC) count Ordered By: Debi Adrienne on 08-30-2024 WBC (Bld) [#/Vol] 7.4 10*3/uL 4.4-11.0 [facility] CBC,PLATELETSon 08-29-2024 Erythrocyte distribution width (RBC) [Ratio] 13.7 % 10.8 - 14.9 % [place] Hematocrit (Bld) [Volume fraction] 42.4 % 34.9 - 44.3 % [place] Hemoglobin (Bld) [Mass/Vol] 13.4 g/dL 11.4 - 15.2 g/dL [facility] Interpretation and review of laboratory results Normal [facility] MCH (RBC) [Entitic mass] 26.9 pg 25.9 - 33.9 pg [facility] MCHC (RBC) [Mass/Vol] 31.6 g/dL 31.4 - 35.9 g/dL [facility] MCV (RBC) [Entitic vol] 85.1 fL 79.6 - 97.7 fL [facility] Platelet mean volume (Bld) [Entitic vol] 12.1 fL 8.5 - 12.2 fL [facility] Platelets (Bld) [#/Vol] 192 10*3/uL 150 - 393 K/uL [place] RBC (Bld) [#/Vol] 4.98 10*6/uL [facility] WBC (Bld) [#/Vol] 9.05 10*3/uL 3.99 - 11.19 K/uL [facility] Hematocrit (Bld) [Volume fraction] 42.4 % Normal 34.9-44.3 [facility] Comment on above: Performed By: #### U [id number] #### [place] (DEFAULT) [address] [place] [address] Hemoglobin (Bld) [Mass/Vol] 13.4 g/dL Normal 11.4-15.2 [facility] Comment on above: Performed By: #### U [id number] #### [place] (DEFAULT) [address] [address] MCV (RBC) [Entitic vol] 85.1 fL Normal 79.6-97.7 [facility] Comment on above: Performed By: #### U [id number] #### [place] (DEFAULT) [address] [place] [address] 72593 Mean Cell Hgb 26.9 pg Normal 25.9-33.9 [facility] Comment on above: Performed By: #### U [id number] #### [place] (DEFAULT) [address] [place] [address] 90716 Mean Cell Hgb Conc 31.6 g/dL Normal 31.4-35.9 [facility] Comment on above: Performed By: #### U [id number] #### [place] (DEFAULT) [address] [place] [address] 78275 Platelet mean volume (Bld) [Entitic vol] 12.1 fL Normal 8.5-12.2 [facility] Comment on above: Performed By: #### U [id number] #### [facility] (DEFAULT) [address] [place] [address] 04993 Platelets (Bld) [#/Vol] 192 10*3/uL Normal 150-393 [facility] Comment on above: Performed By: #### U [id number] #### [place] (DEFAULT) [address] [place] [address] 93708 RBC (Bld) [#/Vol] 4.98 10*6/uL Normal 3.91-5.04 [facility] Comment on above: Performed By: #### U [id number] #### [place] (DEFAULT) [address] [place] [address] 49456 RBC Distribution 13.7 % Normal 10.8-14.9 [facility] Comment on above: Performed By: #### U [id number] #### [place] (DEFAULT) [address] [place] [address] 31600 WBC (Bld) [#/Vol] 9.05 10*3/uL Normal 3.99-11.19 [facility] Comment on above: Performed By: #### U [id number] #### [place] (DEFAULT) [address] [place] [address] 87460 CHEM 7 (LYTES,BUN,CREA,GLUC) on 08-29-2024 Anion gap [Moles/Vol] 15 mmol/L 7 - 17 mmol/L [place] Chloride [Moles/Vol] 98 mmol/L 98 - 10 8 mmol/L [place] CO2 [Moles/Vol] 26 mmol/L 21 - 31 mmol/L [place] Creatinine [Mass/Vol] 0.54 mg/dL 0.50 - 1.20 mg/dL [place] eGFR, CKD-EPI, Female - PINF [place] Glucose [Mass/Vol] 105 mg/dL 70 - 179 mg/dL [place] Osmolality Calc [Osmolality] 282 [place] Potassium [Moles/Vol] 3.6 mmol/L 3.5 - 5.0 mmol/L [place] Sodium [Moles/Vol] 135 mmol/L 135 - 145 mmol/L [place] Urea nitrogen [Mass/Vol] 10 mg/dL 7 - 25 mg/dL [place] Urea nitrogen/Creatinine [Mass ratio] 19 mg/mg [place] Anion gap [Moles/Vol] 15 mmol/L Normal 7-17 [facility] Comment on above: Performed By: #### S URGP #### [place] (DEFAULT) [address] [address] Chloride [Moles/Vol] 98 mmol/L Normal 98-108 [facility] Comment on above: Performed By: #### S URGP #### [place] (DEFAULT) [address] [address] CO2 [Moles/Vol] 26 mmol/L Normal 21-31 [facility] Comment on above: Performed By: #### S URGP #### [place] (DEFAULT) [address] [address] Creatinine [Mass/Vol] 0.54 mg/dL Normal 0.50-1.20 [facility] Comment on above: Performed By: #### S URGP #### [place] (DEFAULT) [address] [place] [address] 38952 eGFR, CKD-EPI, Female > Normal >=60 [facility] Comment on above: Result Comment: Repo rted eGFR is based on the CKD-EPI 2020 equation using creatinine, age, and sex. Performed By: #### S URGP #### [place] (DEFAULT) [address] [place] [address] 74280 Glucose [Mass/Vol] 105 mg/dL Normal Nonfastin -179 mg/dL; Fastin-99 [facility] Comment on above: Performed By: #### S URGP #### [place] (DEFAULT) [address] [place] [address] 49955 Osmolality [Osmolality] 282 mosm/kg Normal 278-305 [facility] Comment on above: Performed By: #### S URGP #### [place] (DEFAULT) [address] [place] [address] Potassium [Moles/Vol] 3.6 mmol/L Normal 3.5-5.0 [facility] Comment on above: Performed By: #### S URGP #### [place] (DEFAULT) [address] [place] [address] 30225 Sodium [Moles/Vol] 135 mmol/L Normal 135-145 [facility] Comment on above: Performed By: #### S URGP #### [place] (DEFAULT) [address] [place] [address] 83949 Urea nitrogen [Mass/Vol] 10 mg/dL Normal 7-25 [facility] Comment on above: Performed By: #### S URGP #### [place] (DEFAULT) [address] [place] [address] 40321 Urea nitrogen/Creatinine [Mass ratio] 19 mg/mg Normal [facility] Comment on above: Performed By: #### S URGP #### [place] (DEFAULT) [address] [place] [address] 36132 IONIZED CALCIUM, WHOLE BLOOD on 08-29-2024 Calcium.ionized (Bld) [Moles/Vol] 4.39 mg/dL Low 4.60 - 5.30 mg/dL [place] Interpretation and review of laboratory results Abnormal [facility] ICA 4.39 mg/dL Low 4.60-5.30 [facility] Comment on above: Performed By: #### U R #### [place] (DEFAULT) [address] [place] [address] 26501 MAGNESIUMon 08-29-2024 Magnesium [Mass/Vol] 1.7 mg/dL 1.6 - 2 .6 mg/dL [place] Magnesium [Mass/Vol] 1.7 mg/dL Normal 1.6-2.6 [facility] Comment on above: Performed By: #### S URGP #### [place] (DEFAULT) [address] [place] [address] 86220 No Panel Informationon 08-29 Interpretation and review of laboratory results Normal [facility] PHOSPHATE, INORGANICon 08-29 Phosphate [Mass/Vol] 3.7 mg/dL 2.2 - 4 .6 mg/dL [place] Phosphorous 3.7 mg/dL Normal 2.2-4.6 [facility] Comment on above: Performed By: #### S URGP #### [place] (DEFAULT) [address] [phone] CBC,PLATELETSon 08-28-2024 Erythrocyte distribution width (RBC) [Ratio] 14.1 % 10.8 - 14.9 % [place] Hematocrit (Bld) [Volume fraction] 43 % 34.9 - 44.3 % [place] Hemoglobin (Bld) [Mass/Vol] 13.5 g/dL 11.4 - 15.2 g/dL [place] Interpretation and review of laboratory results Abnormal [place] MCH (RBC) [Entitic mass] 26.6 pg 25.9 - 33.9 pg [place] MCHC (RBC) [Mass/Vol] 31.4 g/dL 31.4 - 35.9 g/dL [place] MCV (RBC) [Entitic vol] 84.8 fL 79.6 - 97.7 fL [place] Platelet mean volume (Bld) [Entitic vol] 11.8 fL 8.5 - 12.2 fL [place] Platelets (Bld) [#/Vol] 195 10*3/uL 150 - 393 K/uL [place] RBC (Bld) [#/Vol] 5.07 10*6/uL High [facility] WBC (Bld) [#/Vol] 8.35 10*3/uL 3.99 - 11.19 K/uL [facility] Hematocrit (Bld) [Volume fraction] 43.0 % Normal 34.9-44.3 [facility] Comment on above: Performed By: #### S URGP #### [place] (DEFAULT) [address] [place] [address] 73570 Hemoglobin (Bld) [Mass/Vol] 13.5 g/dL Normal 11.4-15.2 [facility] Comment on above: Performed By: #### S URGP #### [place] (DEFAULT) [address] [address] MCV (RBC) [Entitic vol] 84.8 fL Normal 79.6-97.7 [facility] Comment on above: Performed By: #### S URGP #### [place] (DEFAULT) [address] [place] [address] 12614 Mean Cell Hgb 26.6 pg Normal 25.9-33.9 [facility] Comment on above: Performed By: #### S URGP #### [place] (DEFAULT) [address] [place] [address] 11157 Mean Cell Hgb Conc 31.4 g/dL Normal 31.4-35.9 [facility] Comment on above: Performed By: #### S URGP #### [place] (DEFAULT) [address] [address] Platelet mean volume (Bld) [Entitic vol] 11.8 fL Normal 8.5-12.2 [facility] Comment on above: Performed By: #### S URGP #### [place] (DEFAULT) [address] [address] Platelets (Bld) [#/Vol] 195 10*3/uL Normal 150-393 [facility] Comment on above: Performed By: #### S URGP #### [facility] (DEFAULT) [address] [place] [address] RBC (Bld) [#/Vol] 5.07 10*6/uL High 3.91-5.04 [facility] Comment on above: Performed By: #### S URGP #### [facility] (DEFAULT) [address] [place] [address] RBC Distribution 14.1 % Normal 10.8-14.9 [facility] Comment on above: Performed By: #### S URGP #### [facility] (DEFAULT) [address] [place] [address] 59372 WBC (Bld) [#/Vol] 8.35 10*3/uL Normal 3.99-11.19 [facility] Comment on above: Performed By: #### S URGP #### [place] (DEFAULT) [address] [place] [address] 08371 CHEM 7 (LYTES,BUN,CREA,GLUC) on 08-28-2024 Anion gap [Moles/Vol] 15 mmol/L 7 - 17 mmol/L [place] Chloride [Moles/Vol] 101 mmol/L 98 - 10 8 mmol/L [place] CO2 [Moles/Vol] 25 mmol/L 21 - 31 mmol/L [place] Creatinine [Mass/Vol] 0.6 mg/dL 0.50 - 1.20 mg/dL [place] eGFR, CKD-EPI, [facility] - [facility]F [facility] Glucose [Mass/Vol] 115 mg/dL 70 - 179 mg/dL [place] Osmolality Calc [Osmolality] 288 [facility] Potassium [Moles/Vol] 3.8 mmol/L 3.5 - 5.0 mmol/L [place] Sodium [Moles/Vol] 137 mmol/L 135 - 145 mmol/L [place] Urea nitrogen [Mass/Vol] 13 mg/dL 7 - 25 mg/dL [facility] Urea nitrogen/Creatinine [Mass ratio] 22 mg[facility] Anion gap [Moles/Vol] 15 mmol/L Normal 7-17 [facility] Comment on above: Performed By: #### X M #### [place] (DEFAULT) [address] [place] [address] 59985 Chloride [Moles/Vol] 101 mmol/L Normal 98-108 [facility] Comment on above: Performed By: #### X M #### [place] (DEFAULT) [address] [place] [address] 45715 CO2 [Moles/Vol] 25 mmol/L Normal 21-31 [facility] Comment on above: Performed By: #### X M #### [place] (DEFAULT) [address] [place] [address] 54700 Creatinine [Mass/Vol] 0.60 mg/dL Normal 0.50-1.20 [facility] Comment on above: Performed By: #### X M #### [place] (DEFAULT) [address] [place] [address] 54895 eGFR, CKD-EPI, Female > Normal >=60 [facility] Comment on above: Result Comment: Repo rted eGFR is based on the CKD-EPI 2020 equation using creatinine, age, and sex. Performed By: #### X M #### [place] (DEFAULT) [address] [place] [address] 88044 Glucose [Mass/Vol] 115 mg/dL Normal Nonfastin -179 mg/dL; Fastin-99 [facility] Comment on above: Performed By: #### X M #### [facility] (DEFAULT) [address] [place] [address] 66493 Osmolality [Osmolality] 288 mosm/kg Normal 278-305 [facility] Comment on above: Performed By: #### X M #### [facility] (DEFAULT) [address] [place] [address] 54689 Potassium [Moles/Vol] 3.8 mmol/L Normal 3.5-5.0 [facility] Comment on above: Performed By: #### X M #### [place] (DEFAULT) [address] [place] [address] 17099 Sodium [Moles/Vol] 137 mmol/L Normal 135-145 [facility] Comment on above: Performed By: #### X M #### [place] (DEFAULT) [address] [place] [address] 34253 Urea nitrogen [Mass/Vol] 13 mg/dL Normal 7-25 [facility] Comment on above: Performed By: #### X M #### [place] (DEFAULT) [address] [place] [address] 60050 Urea nitrogen/Creatinine [Mass ratio] 22 mg/mg Normal [facility] Comment on above: Performed By: #### X M #### [place] (DEFAULT) [address] [place] [address] 60624 IONIZED CALCIUM, WHOLE BLOOD Ordered By: Adela Akhtar on 08-28-2024 Calcium.ionized (Bld) [Moles/Vol] 4.62 mg/dL 4.60 - 5.30 mg/dL [place] Interpretation and review of laboratory results Normal [facility] IONIZED CALCIUM, WHOLE BLOOD on 08-28-2024 ICA 4.62 mg/dL Normal 4.60-5.30 [facility] Comment on above: Performed By: #### M [facility], IPB #### [place] (DEFAULT) [address] [place] [address] 94009 MAGNESIUMon 08-28-2024 Magnesium [Mass/Vol] 1.7 mg/dL 1.6 - 2 .6 mg/dL [place] Magnesium [Mass/Vol] 1.7 mg/dL Normal 1.6-2.6 [facility] Comment on above: Performed By: #### X M #### [place] (DEFAULT) [address] [place] [address] 93939 No Panel Informationon 06-21 -2025 Interpretation and review of laboratory results Normal [facility] PHOSPHATE, INORGANICon 08-28 Phosphate [Mass/Vol] 3.9 mg/dL 2.2 - 4 .6 mg/dL [place] Phosphorous 3.9 mg/dL Normal 2.2-4.6 [facility] Comment on above: Performed By: #### X M #### [place] (DEFAULT) [address] [place] [address] CBC,PLATELETSon 08-27-2024 Erythrocyte distribution width (RBC) [Ratio] 14.2 % 10.8 - 14.9 % [place] Hematocrit (Bld) [Volume fraction] 43 % 34.9 - 44.3 % [place] Hemoglobin (Bld) [Mass/Vol] 13.5 g/dL 11.4 - 15.2 g/dL [place] Interpretation and review of laboratory results Normal [place] MCH (RBC) [Entitic mass] 26.8 pg 25.9 - 33.9 pg [place] MCHC (RBC) [Mass/Vol] 31.4 g/dL 31.4 - 35.9 g/dL [place] MCV (RBC) [Entitic vol] 85.5 fL 79.6 - 97.7 fL [place] Platelet mean volume (Bld) [Entitic vol] 11.8 fL 8.5 - 12.2 fL [place] Platelets (Bld) [#/Vol] 189 10*3/uL 150 - 393 K/uL [place] RBC (Bld) [#/Vol] 5.03 10*6/uL [facility] WBC (Bld) [#/Vol] 6.79 10*3/uL 3.99 - 11.19 K/uL [facility] Hematocrit (Bld) [Volume fraction] 43.0 % Normal 34.9-44.3 [facility] Comment on above: Performed By: #### U [id number] #### [place] (DEFAULT) [address] [place] [address] 02236 Hemoglobin (Bld) [Mass/Vol] 13.5 g/dL Normal 11.4-15.2 [facility] Comment on above: Performed By: #### U [id number] #### [facility] (DEFAULT) [address] [place] [address] 82186 MCV (RBC) [Entitic vol] 85.5 fL Normal 79.6-97.7 [facility] Comment on above: Performed By: #### U [id number] #### [facility] (DEFAULT) [address] [place] [address] 05254 Mean Cell Hgb 26.8 pg Normal 25.9-33.9 [facility] Comment on above: Performed By: #### U [id number] #### [facility] (DEFAULT) [address] [place] [address] 61144 Mean Cell Hgb Conc 31.4 g/dL Normal 31.4-35.9 [facility] Comment on above: Performed By: #### U [id number] #### [place] (DEFAULT) [address] [place] [address] 20479 Platelet mean volume (Bld) [Entitic vol] 11.8 fL Normal 8.5-12.2 [facility] Comment on above: Performed By: #### U [id number] #### [place] (DEFAULT) [address] [place] [address] 83758 Platelets (Bld) [#/Vol] 189 10*3/uL Normal 150-393 [facility] Comment on above: Performed By: #### U [id number] #### [place] (DEFAULT) [address] [place] [address] 46733 RBC (Bld) [#/Vol] 5.03 10*6/uL Normal 3.91-5.04 [facility] Comment on above: Performed By: #### U [id number] #### [place] (DEFAULT) [address] [place] [address] 49700 RBC Distribution 14.2 % Normal 10.8-14.9 [facility] Comment on above: Performed By: #### U [id number] #### [place] (DEFAULT) [address] [place] [address] WBC (Bld) [#/Vol] 6.79 10*3/uL Normal 3.99-11.19 [facility] Comment on above: Performed By: #### U [id number] #### [place] (DEFAULT) [address] [place] [address] 69191 CHEM 7 (LYTES,BUN,CREA,GLUC) on 08-27-2024 Anion gap [Moles/Vol] 13 mmol/L 7 - 17 mmol/L [place] Chloride [Moles/Vol] 101 mmol/L 98 - 10 8 mmol/L [place] CO2 [Moles/Vol] 26 mmol/L 21 - 31 mmol/L [facility] Creatinine [Mass/Vol] 0.54 mg/dL 0.50 - 1.20 mg/dL [place] eGFR, CKD-EPI, Female - PINF [place] Glucose [Mass/Vol] 118 mg/dL 70 - 179 mg/dL [place] Osmolality Calc [Osmolality] 286 [facility] Potassium [Moles/Vol] 3.9 mmol/L 3.5 - 5.0 mmol/L [place] Sodium [Moles/Vol] 136 mmol/L 135 - 145 mmol/L [place] Urea nitrogen [Mass/Vol] 11 mg/dL 7 - 25 mg/dL [place] Urea nitrogen/Creatinine [Mass ratio] 20 mg/mg [place] Anion gap [Moles/Vol] 13 mmol/L Normal 7-17 [facility] Comment on above: Performed By: #### M GO, CHM7, IPB #### [place] (DEFAULT) [address] [place] [address] Chloride [Moles/Vol] 101 mmol/L Normal 98-108 [facility] Comment on above: Performed By: #### JOVITA GOMEZ, IPB #### [facility] (DEFAULT) [address] [address] CO2 [Moles/Vol] 26 mmol/L Normal 21-31 [facility] Comment on above: Performed By: #### JOVITA GOMEZ, IPB #### [facility] (DEFAULT) [address] [address] Creatinine [Mass/Vol] 0.54 mg/dL Normal 0.50-1.20 [facility] Comment on above: Performed By: #### JOVITA GOMEZ, IPB #### [facility] (DEFAULT) [address] [address] eGFR, CKD-EPI, Female > Normal >=60 [facility] Comment on above: Result Comment: Repo rted eGFR is based on the CKD-EPI 2020 equation using creatinine, age, and sex. Performed By: #### JOVITA GOMEZ, IPB #### [facility] (DEFAULT) [address] [address] Glucose [Mass/Vol] 118 mg/dL Normal Nonfastin -179 mg/dL; Fastin-99 [facility] Comment on above: Performed By: #### JOVITA GOMEZ, IPB #### [facility] (DEFAULT) [address] [address] Osmolality [Osmolality] 286 mosm/kg Normal 278-305 [facility] Comment on above: Performed By: #### JOVITA GOMEZ, IPB #### [facility] (DEFAULT) [address] [address] Potassium [Moles/Vol] 3.9 mmol/L Normal 3.5-5.0 [facility] Comment on above: Performed By: #### JOVITA GOMEZ, IPB #### [facility] (DEFAULT) [address] [place] [address] 70711 Sodium [Moles/Vol] 136 mmol/L Normal 135-145 [facility] Comment on above: Performed By: #### JOVITA GOMEZ, IPB #### [place] (DEFAULT) [address] [place] [address] 95003 Urea nitrogen [Mass/Vol] 11 mg/dL Normal 7-25 [facility] Comment on above: Performed By: #### JOVITA GOMEZ, IPB #### [facility] (DEFAULT) [address] [place] [address] 61026 Urea nitrogen/Creatinine [Mass ratio] 20 mg/mg Normal [facility] Comment on above: Performed By: #### JOVITA GOMEZ, IPB #### [place] (DEFAULT) [address] [place] [address] 55924 IONIZED CALCIUM, WHOLE BLOOD on 08-27-2024 Calcium.ionized (Bld) [Moles/Vol] 4.4 mg/dL Low 4.60 - 5.30 mg/dL [place] Interpretation and review of laboratory results Abnormal [facility] ICA 4.40 mg/dL Low 4.60-5.30 [facility] Comment on above: Performed By: #### S URGP #### [place] (DEFAULT) [address] [place] [address] 40304 MAGNESIUMon 08-27-2024 Magnesium [Mass/Vol] 1.9 mg/dL 1.6 - 2 .6 mg/dL [place] Magnesium [Mass/Vol] 1.9 mg/dL Normal 1.6-2.6 [facility] Comment on above: Performed By: #### JOVITA GOMEZ, IPB #### [place] (DEFAULT) [address] [place] [address] 98664 No Panel Informationon 08-27 Interpretation and review of laboratory results Normal [facility] PHOSPHATE, INORGANICon 08-27 Phosphate [Mass/Vol] 4.2 mg/dL 2.2 - 4 .6 mg/dL [place] Phosphorous 4.2 mg/dL Normal 2.2-4.6 [facility] Comment on above: Performed By: #### M JOVITA TINOCO, IPB #### [place] (DEFAULT) [address] [place] [address] 93633 CBC,PLATELETSon 08-26-2024 Erythrocyte distribution width (RBC) [Ratio] 14.1 % 10.8 - 14.9 % [place] Hematocrit (Bld) [Volume fraction] 44.9 % High 34.9 - 44.3 % [place] Hemoglobin (Bld) [Mass/Vol] 14 g/dL 11.4 - 15.2 g/dL [place] Interpretation and review of laboratory results Abnormal [place] MCH (RBC) [Entitic mass] 26.7 pg 25.9 - 33.9 pg [place] MCHC (RBC) [Mass/Vol] 31.2 g/dL Low 31.4 - 35.9 g/dL [place] MCV (RBC) [Entitic vol] 85.5 fL 79.6 - 97.7 fL [place] Platelet mean volume (Bld) [Entitic vol] 12 fL 8.5 - 12.2 fL [place] Platelets (Bld) [#/Vol] 211 10*3/uL 150 - 393 K/uL [place] RBC (Bld) [#/Vol] 5.25 10*6/uL High [facility] WBC (Bld) [#/Vol] 7.77 10*3/uL 3.99 - 11.19 K/uL [facility] Hematocrit (Bld) [Volume fraction] 44.9 % High 34.9-44.3 [facility] Comment on above: Performed By: #### M JOVITA TINOCO, IPB #### [place] (DEFAULT) [address] [place] [address] 71161 Hemoglobin (Bld) [Mass/Vol] 14.0 g/dL Normal 11.4-15.2 [facility] Comment on above: Performed By: #### JOVITA GOMEZ, IPB #### [facility] (DEFAULT) [address] [place] [address] 35997 MCV (RBC) [Entitic vol] 85.5 fL Normal 79.6-97.7 O [facility] Comment on above: Performed By: #### JOVITA GOMEZ, IPB #### [facility]DEFAULT[facility] [address] [place] [address] 63239 Mean Cell Hgb 26.7 pg Normal 25.9-33.9 [facility] Comment on above: Performed By: #### JOVITA GOMEZ, IPB #### [facility]DEFAULT[facility] [address] [place] [address] 16776 Mean Cell Hgb Conc 31.2 g/dL Low 31.4-35.9 [facility] Comment on above: Performed By: #### JOVITA GOMEZ, IPB #### [facility] (DEFAULT) [address] [place] [address] 41749 Platelet mean volume (Bld) [Entitic vol] 12.0 fL Normal 8.5-12.2 [facility] Comment on above: Performed By: #### JOVITA GOMEZ, IPB #### [facility] (DEFAULT) [address] [place] [address] 78517 Platelets (Bld) [#/Vol] 211 10*3/uL Normal 150-393 [facility] Comment on above: Performed By: #### JOVITA GOMEZ, IPB #### [facility] (DEFAULT) [address] [place] [address] 89908 RBC (Bld) [#/Vol] 5.25 10*6/uL High 3.91-5.04 [facility] Comment on above: Performed By: #### JOVITA GOMEZ, IPB #### [facility] (DEFAULT) [address] [place] [address] RBC Distribution 14.1 % Normal 10.8-14.9 [facility] Comment on above: Performed By: #### M JOVITA TINOCO, IPB #### [place] (DEFAULT) [address] [place] [address] WBC (Bld) [#/Vol] 7.77 10*3/uL Normal 3.99-11.19 [facility] Comment on above: Performed By: #### M JOVITA TINOCO, IPB #### [place] (DEFAULT) [address] [place] [address] 65889 CHEM 7 (LYTES,BUN,CREA,GLUC) on 08-26-2024 Anion gap [Moles/Vol] 14 mmol/L 7 - 17 mmol/L [place] Chloride [Moles/Vol] 101 mmol/L 98 - 10 8 mmol/L [place] CO2 [Moles/Vol] 27 mmol/L 21 - 31 mmol/L [place] Creatinine [Mass/Vol] 0.56 mg/dL 0.50 - 1.20 mg/dL [place] eGFR, CKD-EPI, Female - PINF [place] Glucose [Mass/Vol] 101 mg/dL 70 - 179 mg/dL [place] Osmolality Calc [Osmolality] 290 [place] Potassium [Moles/Vol] 4 mmol/L 3.5 - 5.0 mmol/L [place] Sodium [Moles/Vol] 138 mmol/L 135 - 145 mmol/L [place] Urea nitrogen [Mass/Vol] 14 mg/dL 7 - 25 mg/dL [place] Urea nitrogen/Creatinine [Mass ratio] 25 mg/mg [place] Anion gap [Moles/Vol] 14 mmol/L Normal 7-17 [facility] Comment on above: Performed By: #### M JOVITA TINOCO, IPB #### [place] (DEFAULT) [address] [place] [address] 44762 Chloride [Moles/Vol] 101 mmol/L Normal 98-108 [facility] Comment on above: Performed By: #### JOVITA GOMEZ, IPB #### [facility] (DEFAULT) [address] [place] [address] 76685 CO2 [Moles/Vol] 27 mmol/L Normal 21-31 [facility] Comment on above: Performed By: #### JOVITA GOMEZ, IPB #### [facility] (DEFAULT) [address] [place] [address] 68965 Creatinine [Mass/Vol] 0.56 mg/dL Normal 0.50-1.20 [facility] Comment on above: Performed By: #### JOVITA GOMEZ, IPB #### [facility] (DEFAULT) [address] [place] [address] 48712 eGFR, CKD-EPI, Female > Normal >=60 [facility] Comment on above: Result Comment: Repo rted eGFR is based on the CKD-EPI 2020 equation using creatinine, age, and sex. Performed By: #### JOVITA GOMEZ, IPB #### [facility] (DEFAULT) [address] [place] [address] 19880 Glucose [Mass/Vol] 101 mg/dL Normal Nonfastin -179 mg/dL; Fastin-99 [facility] Comment on above: Performed By: #### JOVITA GOMEZ, IPB #### [facility] (DEFAULT) [address] [place] [address] 45748 Osmolality [Osmolality] 290 mosm/kg Normal 278-305 [facility] Comment on above: Performed By: #### JOVITA GOMEZ, IPB #### [facility] (DEFAULT) [address] [place] [address] 90490 Potassium [Moles/Vol] 4.0 mmol/L Normal 3.5-5.0 [facility] Comment on above: Performed By: #### M GO, CHM7, IPB #### [facility] (DEFAULT) [address] [place] [address] 51556 Sodium [Moles/Vol] 138 mmol/L Normal 135-145 [facility] Comment on above: Performed By: #### M GO, CHM7, IPB #### [facility] (DEFAULT) [address] [place] [address] 52515 Urea nitrogen [Mass/Vol] 14 mg/dL Normal 7-25 [facility] Comment on above: Performed By: #### M GO, CHM7, IPB #### [facility] (DEFAULT) [address] [place] [address] 04565 Urea nitrogen/Creatinine [Mass ratio] 25 mg/mg Normal [facility] Comment on above: Performed By: #### M GO, CHM7, IPB #### [facility] (DEFAULT) [address] [place] [address] HEAD WITHOUT CONTRASTon 0 08-26-2024 CT [...] as compared to August 24, 2024. Normal [facility] CT Head WO contraston 2024 RADIOLOGY RADIOLOGY [facility] Radiology Study observation (narrative) [facility] CT Head WO contrastOrdered B y: Wilmer Grewal on 08-26-2024 [place] Work Phone: IONIZED CALCIUM, WHOLE BLOOD on 08-26-2024 Calcium.ionized (Bld) [Moles/Vol] 4.2 mg/dL Low 4.60 - 5.30 mg/dL [place] Interpretation and review of laboratory results Abnormal [facility] ICA 4.20 mg/dL Low 4.60-5.30 [facility] Comment on above: Performed By: #### U R #### [place] (DEFAULT) [address] [place] [address] 08353 MAGNESIUMon 08-26-2024 Magnesium [Mass/Vol] 1.9 mg/dL 1.6 - 2 .6 mg/dL [place] Magnesium [Mass/Vol] 1.9 mg/dL Normal 1.6-2.6 [facility] Comment on above: Performed By: #### JOVITA GOMEZ, IPB #### [place] (DEFAULT) [address] [place] [address] 10824 No Panel Informationon 08-26 Interpretation and review of laboratory results Normal [facility] PHOSPHATE, INORGANICon 08-26 Phosphate [Mass/Vol] 4.4 mg/dL 2.2 - 4 .6 mg/dL [place] Phosphorous 4.4 mg/dL Normal 2.2-4.6 [facility] Comment on above: Performed By: #### M GRIS TINOCO7, IPB #### [place] (DEFAULT) [address] [place] [address] 94911 URINE CULTUREOrdered By: Carmelo Narayanan on 08-26-2024 Bacteria identified Cx Nom (Unsp spec) Growth [place] Bacteria identified Cx Nom (Unsp spec) ESCHERICHIA COLI Abnormal [place] Bacteria identified Cx Nom (Unsp spec) ENTEROCOCCUS FAECALIS Abnormal [place] Interpretation and review of laboratory results Abnormal [facility] CBC,PLATELETSon 08-25-2024 Erythrocyte distribution width (RBC) [Ratio] 13.9 % 10.8 - 14.9 % [place] Hematocrit (Bld) [Volume fraction] 44 % 34.9 - 44.3 % [place] Hemoglobin (Bld) [Mass/Vol] 13.5 g/dL 11.4 - 15.2 g/dL [place] Interpretation and review of laboratory results Abnormal [place] MCH (RBC) [Entitic mass] 26.3 pg 25.9 - 33.9 pg [place] MCHC (RBC) [Mass/Vol] 30.7 g/dL Low 31.4 - 35.9 g/dL [place] MCV (RBC) [Entitic vol] 85.6 fL 79.6 - 97.7 fL [place] Platelet mean volume (Bld) [Entitic vol] 11.6 fL 8.5 - 12.2 fL [place] Platelets (Bld) [#/Vol] 200 10*3/uL 150 - 393 K/uL [place] RBC (Bld) [#/Vol] 5.14 10*6/uL High [facility] WBC (Bld) [#/Vol] 6.86 10*3/uL 3.99 - 11.19 K/uL [facility] Hematocrit (Bld) [Volume fraction] 44.0 % Normal 34.9-44.3 [facility] Comment on above: Performed By: #### S URGP #### [place] (DEFAULT) [address] [place] [address] Hemoglobin (Bld) [Mass/Vol] 13.5 g/dL Normal 11.4-15.2 [facility] Comment on above: Performed By: #### S URGP #### [facility] (DEFAULT) [address] [address] MCV (RBC) [Entitic vol] 85.6 fL Normal 79.6-97.7 O [facility] Comment on above: Performed By: #### S URGP #### [facility] (DEFAULT) [address] [address] Mean Cell Hgb 26.3 pg Normal 25.9-33.9 [facility] Comment on above: Performed By: #### S URGP #### [facility] (DEFAULT) [address] [address] Mean Cell Hgb Conc 30.7 g/dL Low 31.4-35.9 [facility] Comment on above: Performed By: #### S URGP #### [facility] (DEFAULT) [address] [address] Platelet mean volume (Bld) [Entitic vol] 11.6 fL Normal 8.5-12.2 [facility] Comment on above: Performed By: #### S URGP #### [place] (DEFAULT) [address] [address] Platelets (Bld) [#/Vol] 200 10*3/uL Normal 150-393 [facility] Comment on above: Performed By: #### S URGP #### [facility] (DEFAULT) [address] [address] RBC (Bld) [#/Vol] 5.14 10*6/uL High 3.91-5.04 [facility] Comment on above: Performed By: #### S URGP #### [facility] (DEFAULT) [address] [address] RBC Distribution 13.9 % Normal 10.8-14.9 [facility] Comment on above: Performed By: #### S URGP #### [place] (DEFAULT) [address] [place] [address] WBC (Bld) [#/Vol] 6.86 10*3/uL Normal 3.99-11.19 [facility] Comment on above: Performed By: #### S URGP #### [place] (DEFAULT) [address] [place] [address] CHEM 7 (LYTES,BUN,CREA,GLUC) on 08-25-2024 Anion gap [Moles/Vol] 16 mmol/L 7 - 17 mmol/L [facility] Chloride [Moles/Vol] 101 mmol/L 98 - 10 8 mmol/L [facility] CO2 [Moles/Vol] 26 mmol/L 21 - 31 mmol/L [place] Creatinine [Mass/Vol] 0.56 mg/dL 0.50 - 1.20 mg/dL [place] eGFR, CKD-EPI, Female - PINF [facility] Glucose [Mass/Vol] 113 mg/dL 70 - 179 mg/dL [place] Osmolality Calc [Osmolality] 292 [place] Potassium [Moles/Vol] 4 mmol/L 3.5 - 5.0 mmol/L [place] Sodium [Moles/Vol] 139 mmol/L 135 - 145 mmol/L [place] Urea nitrogen [Mass/Vol] 13 mg/dL 7 - 25 mg/dL [place] Urea nitrogen/Creatinine [Mass ratio] 23 mg/mg [facility] Anion gap [Moles/Vol] 16 mmol/L Normal 7-17 [facility] Comment on above: Performed By: #### U [id number] #### [place] (DEFAULT) [address] [place] [address] Chloride [Moles/Vol] 101 mmol/L Normal 98-108 [facility] Comment on above: Performed By: #### U [id number] #### [place] (DEFAULT) [address] [place] [address] CO2 [Moles/Vol] 26 mmol/L Normal 21-31 [facility] Comment on above: Performed By: #### U [id number] #### [facility] (DEFAULT) [address] [place] [address] 67709 Creatinine [Mass/Vol] 0.56 mg/dL Normal 0.50-1.20 [facility] Comment on above: Performed By: #### U [id number] #### [facility] (DEFAULT) [address] [place] [address] 55887 eGFR, CKD-EPI, Female > Normal >=60 [facility] Comment on above: Result Comment: Repo rted eGFR is based on the CKD-EPI 2020 equation using creatinine, age, and sex. Performed By: #### U [id number] #### [facility] (DEFAULT) [address] [place] [address] 09820 Glucose [Mass/Vol] 113 mg/dL Normal Nonfastin -179 mg/dL; Fastin-99 [facility] Comment on above: Performed By: #### U [id number] #### [place] (DEFAULT) [address] [place] [address] 34765 Osmolality [Osmolality] 292 mosm/kg Normal 278-305 [facility] Comment on above: Performed By: #### U [id number] #### [facility] (DEFAULT) [address] [place] [address] 90653 Potassium [Moles/Vol] 4.0 mmol/L Normal 3.5-5.0 [facility] Comment on above: Performed By: #### U [id number] #### [place] (DEFAULT) [address] [place] [address] 39747 Sodium [Moles/Vol] 139 mmol/L Normal 135-145 [facility] Comment on above: Performed By: #### U [id number] #### [place] (DEFAULT) [address] [place] [address] 28282 Urea nitrogen [Mass/Vol] 13 mg/dL Normal 7-25 [facility] Comment on above: Performed By: #### U [id number] #### [place] (DEFAULT) [address] [place] [address] 66957 Urea nitrogen/Creatinine [Mass ratio] 23 mg/mg Normal [facility] Comment on above: Performed By: #### U [id number] #### [place] (DEFAULT) [address] [place] [address] 7[address] IONIZED CALCIUM, WHOLE BLOOD Ordered By: William Grady on 08-25-2024 Calcium.ionized (Bld) [Moles/Vol] 4.29 mg/dL Low 4.60 - 5.30 mg/dL [place] Interpretation and review of laboratory results Abnormal [facility] IONIZED CALCIUM, WHOLE BLOOD on 08-25-2024 ICA 4.29 mg/dL Low 4.60-5.30 [facility] Comment on above: Performed By: #### X M #### [place] (DEFAULT) [address] [place] [address] 94396 MAGNESIUMon 08-25-2024 Magnesium [Mass/Vol] 1.8 mg/dL 1.6 - 2 .6 mg/dL [place] Magnesium [Mass/Vol] 1.8 mg/dL Normal 1.6-2.6 [facility] Comment on above: Performed By: #### U [id number] #### [place] (DEFAULT) [address] [place] [address] 31303 No Panel Informationon 08-25 Interpretation and review of laboratory results Normal [facility] PHOSPHATE, INORGANICon 08-25 Phosphate [Mass/Vol] 3.8 mg/dL 2.2 - 4 .6 mg/dL [place] Phosphorous 3.8 mg/dL Normal 2.2-4.6 [facility] Comment on above: Performed By: #### U [id number] #### [place] (DEFAULT) [address] [place] [address]93 CBC,PLATELETSon 08-24-2024 Erythrocyte distribution width (RBC) [Ratio] 13.9 % 10.8 - 14.9 % [place] Hematocrit (Bld) [Volume fraction] 42.8 % 34.9 - 44.3 % [place] Hemoglobin (Bld) [Mass/Vol] 13.3 g/dL 11.4 - 15.2 g/dL [place] Interpretation and review of laboratory results Abnormal [place] MCH (RBC) [Entitic mass] 26.8 pg 25.9 - 33.9 pg [place] MCHC (RBC) [Mass/Vol] 31.1 g/dL Low 31.4 - 35.9 g/dL [place] MCV (RBC) [Entitic vol] 86.1 fL 79.6 - 97.7 fL [place] Platelet mean volume (Bld) [Entitic vol] 12.1 fL 8.5 - 12.2 fL [place] Platelets (Bld) [#/Vol] 195 10*3/uL 150 - 393 K/uL [place] RBC (Bld) [#/Vol] 4.97 10*6/uL [facility] WBC (Bld) [#/Vol] 6.61 10*3/uL 3.99 - 11.19 K/uL [facility] Hematocrit (Bld) [Volume fraction] 42.8 % Normal 34.9-44.3 [facility] Comment on above: Performed By: #### JOVITA GOMEZ, IPB #### [place] (DEFAULT) [address] [place] [address] 60633 Hemoglobin (Bld) [Mass/Vol] 13.3 g/dL Normal 11.4-15.2 [facility] Comment on above: Performed By: #### JOVITA GOMEZ, IPB #### [place] (DEFAULT) [address] [place] [address] MCV (RBC) [Entitic vol] 86.1 fL Normal 79.6-97.7 [facility] Comment on above: Performed By: #### M EARNEST CHM7, IPB #### [facility] (DEFAULT) [address] [place] [address] 27136 Mean Cell Hgb 26.8 pg Normal 25.9-33.9 [facility] Comment on above: Performed By: #### Tony TINOCO CHM7, IPB #### [facility] (DEFAULT) [address] [place] [address] 53521 Mean Cell Hgb Conc 31.1 g/dL Low 31.4-35.9 [facility] Comment on above: Performed By: #### Tony TINOCO CHM7, IPB #### [facility] (DEFAULT) [address] [place] [address] 55431 Platelet mean volume (Bld) [Entitic vol] 12.1 fL Normal 8.5-12.2 [facility] Comment on above: Performed By: #### Tony TINOCO CHM7, IPB #### [facility] (DEFAULT) [address] [place] [address] 7[address] Platelets (Bld) [#/Vol] 195 10*3/uL Normal 150-393 [facility] Comment on above: Performed By: #### M EARNEST CHM7, IPB #### [facility] (DEFAULT) [address] [address] RBC (Bld) [#/Vol] 4.97 10*6/uL Normal 3.91-5.04 [facility] Comment on above: Performed By: #### M EARNEST CHM7, IPB #### [facility] (DEFAULT) [address] [place] [address] 47601 RBC Distribution 13.9 % Normal 10.8-14.9 [facility] Comment on above: Performed By: #### M EARNEST CHM7, IPB #### [facility] (DEFAULT) [address] [place] [address] 57658 WBC (Bld) [#/Vol] 6.61 10*3/uL Normal 3.99-11.19 [facility] Comment on above: Performed By: #### M ERANEST, CHM7, IPB #### [place] (DEFAULT) [address] [place] [address] CHEM 7 (LYTES,BUN,CREA,GLUC) on 08-24-2024 Anion gap [Moles/Vol] 19 mmol/L High 7 - 17 mmol/L [place] Chloride [Moles/Vol] 100 mmol/L 98 - 10 8 mmol/L [place] CO2 [Moles/Vol] 23 mmol/L 21 - 31 mmol/L [place] Creatinine [Mass/Vol] 0.58 mg/dL 0.50 - 1.20 mg/dL [place] eGFR, CKD-EPI, Female - PINF [place] Glucose [Mass/Vol] 125 mg/dL 70 - 179 mg/dL [place] Interpretation and review of laboratory results Abnormal [place] Osmolality Calc [Osmolality] 290 [place] Potassium [Moles/Vol] 4 mmol/L 3.5 - 5.0 mmol/L [place] Sodium [Moles/Vol] 138 mmol/L 135 - 145 mmol/L [place] Urea nitrogen [Mass/Vol] 11 mg/dL 7 - 25 mg/dL [place] Urea nitrogen/Creatinine [Mass ratio] 19 mg/mg [place] Anion gap [Moles/Vol] 19 mmol/L High 7-17 [facility] Comment on above: Performed By: #### U R #### [place] (DEFAULT) [address] [place] [address] Chloride [Moles/Vol] 100 mmol/L Normal 98-108 [facility] Comment on above: Performed By: #### U R #### [place] (DEFAULT) [address] [place] [address] CO2 [Moles/Vol] 23 mmol/L Normal 21-31 [facility] Comment on above: Performed By: #### U R #### [facility] (DEFAULT) [address] [place] [address] Creatinine [Mass/Vol] 0.58 mg/dL Normal 0.50-1.20 [facility] Comment on above: Performed By: #### U R #### [facility] (DEFAULT) [address] [place] [address] 60780 eGFR, CKD-EPI, Female > Normal >=60 [facility] Comment on above: Result Comment: Repo rted eGFR is based on the CKD-EPI 2020 equation using creatinine, age, and sex. Performed By: #### U R #### [place] (DEFAULT) [address] [place] [address] 27787 Glucose [Mass/Vol] 125 mg/dL Normal Nonfastin -179 mg/dL; Fastin-99 [facility] Comment on above: Performed By: #### U R #### [place] (DEFAULT) [address] [place] [address] 15853 Osmolality [Osmolality] 290 mosm/kg Normal 278-305 [facility] Comment on above: Performed By: #### U R #### [facility] (DEFAULT) [address] [place] [address] 83741 Potassium [Moles/Vol] 4.0 mmol/L Normal 3.5-5.0 [facility] Comment on above: Performed By: #### U R #### [place] (DEFAULT) [address] [place] [address] 85447 Sodium [Moles/Vol] 138 mmol/L Normal 135-145 [facility] Comment on above: Performed By: #### U R #### [place] (DEFAULT) [address] [place] [address] 18017 Urea nitrogen [Mass/Vol] 11 mg/dL Normal 7-25 [facility] Comment on above: Performed By: #### U R #### [facility] (DEFAULT) [address] [place] [address] Urea nitrogen/Creatinine [Mass ratio] 19 mg/mg Normal [facility] Comment on above: Performed By: #### U R #### [place] (DEFAULT) [address] [place] [address] CT HEAD WITHOUT CONTRASTon 0 08-24-2024 CT [...] left parietal lobe as described above. Normal [facility] CT Head WO contraston 2024 RADIOLOGY RADIOLOGY [place] Radiology Study observation (narrative) [facility] CT Head WO contrastOrdered B y: Joelle Garcia on 08-24-2024 [place] Work Phone: EEG, ROUTINEon 08-24-2024 [place] EEG, ROUTINEOrdered By: Gilda Bonilla on 08-24-2024 [place] Work Phone: EXTRA MICROon 08-24-2024 [place] IONIZED CALCIUM, WHOLE BLOOD Ordered By: Roxie Johnson on 08-24-2024 Calcium.ionized (Bld) [Moles/Vol] 4.03 mg/dL Low 4.60 - 5.30 mg/dL [place] Interpretation and review of laboratory results Abnormal [facility] IONIZED CALCIUM, WHOLE BLOOD on 08-24-2024 ICA 4.03 mg/dL Low 4.60-5.30 [facility] Comment on above: Performed By: #### X M #### [place] (DEFAULT) [address] [address] MAGNESIUMon 08-24-2024 Magnesium [Mass/Vol] 1.8 mg/dL 1.6 - 2 .6 mg/dL [place] Magnesium [Mass/Vol] 1.8 mg/dL Normal 1.6-2.6 [facility] Comment on above: Performed By: #### U R #### [place] (DEFAULT) [address] [address] MR Brain WO and W contrast I Yohannes 08-24-2024 RADIOLOGY RADIOLOGY [place] Radiology Study observation (narrative) [facility] MR Brain WO and W contrast I VOrdered By: Juwan Izaguirre on 08-24-2024 [place] Work Phone: MRI BRAIN WITH AND WITHOUT C ONTRASTon [...] have reviewed and approved this report. Normal [facility] No Panel Informationon 08-24 Interpretation and review of laboratory results Normal [facility] PHOSPHATE, INORGANICon 08-24 Phosphate [Mass/Vol] 3.8 mg/dL 2.2 - 4 .6 mg/dL [place] Phosphorous 3.8 mg/dL Normal 2.2-4.6 [facility] Comment on above: Performed By: #### U R #### [place] (DEFAULT) [address] [place] [address] SURG PATH REQUESTOrdered By: Vitaliy Peace on 08-24-2024 Case Report [place] Work Phone: Clinical History [id number] Nlx nhuByHBZbdAYyU0OqyiqdGN beCF4hWB4ucLpblZZvaXRgZ DJbAlQjo5elj444uICzz9wx FUEZhulutNd1qPryA26pe0S 0QisiS3cbNGOsHErnUYJbMZ lraCGaXSt4IFIkiIZchhLyO nGpQZOdeYFzkFU6BFNoVN0t rjgbBNnvTClaPOEphyZ9MCM unXBeD4XoBCIqVJ0dmrvlCL B4COwmIQPyDTH9HkBiLYOep 5Prihc4NoFqhPz1s1jdFGJi CJKtkSohw0mlZBA2CRZsuKI cS1wnaC0oDDKpVH9ziguxn1 uvOIcgYDavLDYkeMB9faU4R LRbqDMuO7AcpK3dLVNhTICg nmZooZxaoK8vUyQiEYwgNmV rGISyd1CoXTuhH10hz9dhBs VaFnepgABcTV1uGGoux9Jfe fclw3IjW8JykO6ayqKbrNTe ZBPzOMQfFYZ9eOXlzyAsAAg jm7vqVVMjzSBpUEFjJJXzqP KtBNnmPuzzuvqgnZR3tT5xO lxwYXJ9 [place] Work Phone: Diagnosis Comments c9tnfXEiEEOanAZuNVBn Nlx ujfWxGWXqeDSfV8AyhkryNQ qfFD9sKH0ksUyclCBtkCAlO IFmSqYtb7uts351lCBkg0ij ZJPBxexvfLh3uWrxC27vl8H 0SyghB88jtNZyYMF6CVCyLL RcgFNwPPAdKLF2YXMcpDWqS 6fzMVFiYS7jpsehHKhvKJjv QSJlhPZ3OKJjkALlS3OnKVS nYMcnGWSqrau5VsYuYz9dwO VyeTcyMFxwYXJkXHBsYWluX SEzYwLnFGmta3DvCbZfoLVb hvQovkBarU1gezBIYHCagZ2 5fdT0JAPgSAxsQOkmbWpbIN xkoP7vaJGiZRxrpJKpzzAtF FvktAyqJLYip01mKHAbSqqn QLhvqUjaXKBesF66ZY9thRG cdKOqEp2rxLI3dJ5kPzczDE J9 [place] Work Phone: For Immediate Release to Patient's MyChart? Yes Yes [place] Work Phone: Gross Description m3mvnVLiPDOan8vrQOQa bGF uZzEwMzNcZnRuYmpcdWMxIH tccnRmMVxlcGljMTExMDZcY Q3mhTzkmIo3tDddMKRlyrR0 xORlWAhiy2kiWSS7k2swewm oEPKmDUhiJn2pcDRdhOgpEn JaQRUkZNu1qF58BFXozH2qz GJsIDtccmVkMFxncmVlbjBc Gcc0TNC3zZouAHMazfbtAzG 2OSwhAIOlalgcDFb1OMghXA SwoGO1OINxnIFeS1XoLOMwZ X6cuhl4UDF2AQvtWMDtJdX8 PELthEHsELVipChuOSxhf32 0YWL4EgYbDYSrcwFtoGvpaA 5pLfWkHGZRaDUuo9TrJ0kwC A5kGZXsNGMtOUZjmDTqCVSr bmV9wTCkJBDfgj7qQKDhbLW nSCIryACqMPPtxbLcgV3ejv Obr4b7gXD6bQVmsBM4jQFue KlwED5zzWFiCQ2wOWFqZ4Oa m0qmvvUioR3hTEAxLNitLJG ccGFyIEEuICBcdGFiIFRoZS GclZYjuT7toiGlguNzNJFkT 11ujRLoXLNjQ5DcSUdzLoCs pXSchAI0CLwzyPPutF2rWMD yUMAlPTRtIQWas70wjFU0qd OeXmNfSNKkIME6XQDoOOU9W DAuMiBjbSByZWQtcGluayBm qjWneJIihGRlYyYdm0E8SPA so4Y4RN1nUEPBBYWplHYjFO BhciBCLiAgXHRhYiBUaGUgc 3BlS3oqUW6sjIXkIVQrdRde ZFUcEOGhSWLoKHKeXRB9GZS wxgqucTRiAOmsbIU4v91cPM WeNWUrLVUjIBBke39afCG7i gSsCnGvBVZtNFG2FJAfYIQ1 HPRcCMUpuXSvX2rgBYjhgSK ns9IlswBoDHDyx8xqOLTsf0 O0LYJnZrocr4UaNMEQkaYyn RJijqV9QLNma2P4HTXjr9P3 ZSBpcyBpZGVudGlmaWVkLiA gVEUgMVxwYXJccGFyIEMuXH GrUcUYxAAub7ZzY7ghFM0hw XMgZGVzaWduYXRlZCAibGVm dXArHSXhZNSbbIF7TWJfrPc zudZbSNcnb7GlLIMou45wVG DeXZYqr28ycFI2cfPvFbVjB GBdPEJ9GUFcXvG7HDIkKKLq dZBmCQTxlTjxybGfDD9scyG oYWdpYyBmcmFnbWVudCBvZi Tfd0Q1YJWxc8M7QI1uOBYuE VKhfFHrcI3sknGmvwEphJPd K2CmHB0dIMDSTXXoiVRoLFS deuHBJOFyFWLzEP3gqXx7BV kxSfbHSIf0TLYjBDxsRVKnB TLdzi58LTZ1WaHfk9Y1IBZr YgDgQZZlUF5xcAcdIRDbXF2 vGGQsF8qecS0tsfu6QiBbNE OqKyX7UDAqahN0Eui9QEOyX Ifeu4bqx3EbZXNiRBw1rRgv SxYqDKEwu6zpicLkZcVfKJN fBHDsDVRwkGCyH106l0enn5 kwacYzzGI8KJIrGAW8RMmzp tKuozK8SZndeSTtBzD2JKzf kkZhWRkjxyJirtAtYwu4MDQ eL906SLW1lFuus0hfGBK3LM EoTMPbCrDxFp7myIMfI784U RCgGTSYMPHidVz5BWWovcEr wuPnnJPLb179E042i7gzXES kbgShgZvLribre1caZ274WP BhcGVydzEyMjQwXHBhcGVya OJ0HGLqTY1ugoruWLzyHJys VETpihW6BQFqjQCpU6EvOFE kQP6shkmqDBS7KOjcZGEyHT C8AlJxHKOix3Dhnjt1QaNsb v8xru79HWD4i0NhyTgpBOE8 GOJ4FlGxRn8ewXXoOKHiUS6 lFyTakLNgYBZniy19uIcxIX lpopQkdR3nDiXqTMMefENxO LTcOG9ddEUuTYPouG4llzca XHBnYnJkcmhlYWRccGdicmR mQy8fcIhtWZO1XIjhT3dctA 7hNaT3XNqiF6ktwH3qUKh8Y BixzAW9YKMnzU8pSS8bxowo d9toHHxtWJmbASBzuaZ3yjK 6CKQhoNFeR8RtlL3gHTKmPB 0muvryu0rlCRM0EEyiTPRjA RJ9JbMjQXQwr5Xwlfl6RrJw s5DcqHKcLKbjJ43zf404DTQ xttMvV0eyfNJoihawbRIpgk ziOTyhvbO1BTZtJJQoASvmY GYxXGZzMjJcbGFuZzEwMzNc aGljaFxmMVxkYmNoXGYxXGx qA9fsNaEwJvMoJdSRnf6my9 EkAELiqpM1qIluXVUyy1Kgn 6ByXgCZV904rXVECM82hY2z ZXJccGFyfX0= [facility] Work Phone: Microscopic Description e3csmUNoVMPox3rr ZGVmbGF uZzEwMzNcZnRuYmpcdWMxIH rhdbEcHOntk9YzB6AmJhZnX FxhbnNpXGRlZmxhbmcxMDMz ALY6qvXyAKGvFRqbEDZdSYy dAr1fiTPnvSmvKxQaZAYku5 zfnpAIemoueZr0p8ndTSCzD yV9uZEmXAaeC9embtOzhHXt YHQjCSn6oK11XYPvnR6jgXF bMAfexwOkYlY8XOqbEVAwAd Z1TYPvnPOhFYHaP6uoYHFeQ AhfWEFrEPhnmFBsRQF6bBuf q5P7hBMbbBTcoHeaLbMxUcI jAcDGj9CwOJc6jLsrX1BtNO XkWwK1qQIeYWXkXDmhFYXtQ NCkigN3yN42TJxejeJ0xOXq f3Xsx52ay273fS5ioKSpOBS 3YFFkFIQjmRRaLOUtWYF9RG TswFKxG0gkQDXhFF9nrsfuO RmeGPvgDMPvkFF8RIYyyQKu O7GqDYRiEOvhFVDweuj2EeW dGt9qtZVcuYmqCWyng5fjf6 auuVNoCvs6KQOeJaEyRzhxN Wpfi5Jwo2gxSCSqbl2pOTF2 yVEssNxbf9J9tKWeHAGkvAY ihaHgTOHmBbC5ZZdaYE2kyj 50QLVwNXD4sp2uwBLcjWreb cUqeNQhCNcxX4BkKRRdw534 JNLrB0NuARZhu6F5wjEgAgW jTNOeoGB6dyT5HVAcZLf0sK OuxgO0nsRbxXMlI8zcoS4wB NRsDV6tgttxu6ndYCkvLJgf LTCvkEV7zfP5HMGezECvV7Q qsO9iQXNmCLnlAKEthlm1Ek TkIr6ahLGiuZwiCAynNspfG WdlXHBnbmNvbnRccGduZGVj XHBsYWluXHBsYWluXGYwXGZ nQvUwiAtaqIzcjF1hOaQaLa WuEXfuHZ1hKLYmA3ghnERxJ JVtYVEoQ6bqVqDxuC1akGbo XHgxyfWaJCSnvYcfvn2eE47 htQTeYYzqtFvhTNTnw42tj2 UpZBOkawCpkq2pKC9oGMJoe q13IUE7EvXxz2N7OSSjAuXp MCKhRY8jeVrpOQXiYR5cXWN hV2xdqL4ifzs7NsNmTXExDq I0DRCivgD6Miq1TDLmWPkdq 7arg4JzQXMoHJu7xGmxYgPl PABlt5wuqbYcYeAjJHYlINT dWRHbsINeA248n0nmq5krji EcyYF4OYKnDRK9REoxpyWsh jN2EQcpqPAdDvC9NLeomhVg YPmldhLtscRfSlc4OLLgW64 4TFO4cNcvl2wqMIO2OAZgJV NlWfBxAy5kvNRlI499MVRvX ESWMNToxRi2SZNyizQmfvQo uHLFi479Y721b5djWDYnhgE qfVtRhesoe2jrU503PFLfdM EzbiTsQiLgXLHwwQCsrCY9M MDhKR2mklxiOQzgEMklNBGo wiK2RPAraWJkQ9OnAVSrHZ0 dclprXBN9KNjaHXLtPRF6Ys BqIEQuh4Fdhkq9OjWlzv7hn r01ZNE6n9QsqTewZDM9HKD3 CsTuAc2rkROvHGFqGQ1kVpX afBYbQZAqiw18uRcmMLpmbg BkdW9sIrOdQUWhjJUyBVVrP B0blUTeAVLnvH2nhlfbLOLn YnJkcmhlYWRccGdicmRyZm9 ddHxlBKY4YOxrM1dviH4jWy V8IEpzY3ledA0dGPv2IRqoc JP5QESgiU1pLN9iburlk4cb JUipQNpzHCJomsE4irJ8PED kfQHuF4FvgT0vKHZzPJ6ogy tcb4ilOZX4ZRchZNJuRYL8S kPjBRWid0Xuick6VhPox8Bz oJHtJHvxP71kh710ZURmjeV pJ7iolILnueqekVKcqbtgSW vznqQ0GZUnRFHkMYniJAPvJ GZzMjBcbGFuZzEwMzNcaGlj fPmcCAasQhSkPSFoUGfcW2n zKvBcN9QeMXTqYiUjtEJkQF AlgWWjg214lw9sxeYzuV45G GFwcHJvcHJpYXRlIHJlYWN0 qZZveTroPTMgeEFmdZ31se5 jmMN6c2MbPE1hm8VolWIwGK nIIFngbA1vw4p6dEMykGSfx YRrmhV3bL0cAElJP8fwTAZy puMspWdnhX1gfBImfGPusEH 3STX8wcT0TOCrZCYahiGjf9 BlZCBieSBhbmQgYXJlIHBlc bOssg1ePLRrzFN6mSTaK6AG VYhtcF6ywqDCQPEdS1SyKQL lbnRlciBDbGluaWNhbCBMYW DhujO4g1L4DDFLaBW5h4phX 4anHA1hPLgMIpQGMVHmZPL1 YJZCO1srvc9ticIHy2XwKWJ JmTYWMFmeIIRIc0a8fQW1xs teL5knNMFhMJHaNMGMdTgaP J1egT9oPtk1l3Ghn9XpxyRj LZgXGRL1INC4yoS1DTUrISQ qiuJat0WxRWDwwAFfqwLmYG EnLTMrgmVabo5jQGHpwKQ8t TAcN8IDWCxhxJ9jqwWWGKFz T3WcVDVevqAliiVGbQfohLH rzGJOFJEpxqQ7d4M2FNSBGF 7iaTQRkXRvj0cqxnfcTWOeO FcuIDEwdGggQXZlbnVlLCBD m1n9qLY7suaoH4paSDFaIVB rMXEoqPC2UJF0jnBgBAIsvg RlZCBoZXJlLCBleGNlcHQgZ h6eHEXVRBihIIPmVFJzYM5y dCBiZWVuIGNsZWFyZWQgYnk lj0UcLUIsbs34FFGzHtwyoT ykDAFILLUsm6CdAU8pIPNbo ZasWPJykP5ql8FpDGZqo28n KEZEQSkuIFRoZSBsYWJvcmF 3r9V9LMauUMBaL3ZcSIHvXR S3wvRbusAABCbDAWTaZVR4F XevHyhuSUH4eiLoAXNpf3Wh WPapL0xoA34icBmbuXw8aRH 5NDE2mV6tIgIDuCYkmZUmrY KsJURhGCWaIGQvIg0mKQYfn I0dB3JzPLN1hkOfl0NxDnRT mPI5ZTQjq0UfDNPqo1AiYfI mgmSlELWpLGUaQPHcoY81WY D7gUpjtCclmyKgVB3iSZNtz gBwOASnOJVfrF4xxBZbsX0= [facility] Work Phone: Pathologic Diagnosis p6serRImBAIqaCRoPTH wNlx ftmUvIYMhcJRrB9WekpuzPI gmRL4qTQ0idTzvuXPrvCIeA YWiLwAtw4aiv345pLFjg8lk OVWSwqomlQe4g3nnJGEYyD4 tm2j1hL27YNVnyI6ztEUtOP bnldYkSHrmihHzbaRcEbr1T PM3nZmxGscfbGG2pAYuoIZ9 WQtni5TfqLhnuBjmBroaZpE 4MTZcbGlzdHRlbXBsYXRlaW HrFZfpmJlkxP3laDKbM64th LhgoQv2KgImJOhofLynjRje dmVsXGxldmVsbmZjMjNcbGV 7CXkhDmCyIoVljPX3AUzyYn TqsGG0MAgenAAajKM2RSkcb DW9PWc2KVr5HBktEGtrLmq3 oFknfCU7LHrxjE8yHMTeN39 wBdFzMaMfGFjjyEH7YSrwhZ V9ID56VSxcy2JpTQPcyUriZ VCwbF0yFuKfPDszqqQgirBn bjIzXGxldmVsamMwXGxldmV ox1MuprKwoGD1RHunspPwhS Y3rFryDFEjL2Y5U260GFtla dCyobTzQkOzhld4YCNaDCEe JeQ9y8rydGK9qXP5SJwdyMK 4IAdtZiZbE1wrGVCpsA6mM3 7cD4gmJVTdnFjpUBfvKNYyb OT3RCV4WCXyy2blXULelMJc uAMiItDzRXywXbg2k8rgARO niP71qNNofiB0iQslDXnfdw IwfXtcbGlzdGxldmVsXGxld zWdlfZdJpUvuVM9MEdnLfQi EuNlcHY7FYxpDlYzpLY2RZm boVOdkNL5BToyfXZ2STp1WY b1OGqbPHrbWdm1iBffjRK2V TjpjX3gYSSfD83eZhGnAwRj TY85HFsxk1HoRKEssHgpYDK ccS3mCbXsNNrobhFazfUppp IzXGxldmVsamMwXGxldmVsc 3GpjiCpzDE2ZXderrFztIA7 mJjzJIStD8H0A757XVnjvoO agfXkAxSjlne0YCAqUGEtUa T4b1qktZO3dDQ5OTkrvZV7B LkzIiJfK7ejVWCtzX5zD82s C8ejZMBbtXovHNdoAMSeeQI 9AGZ9SWCsl0njRTBejMOymG IbImKiCEttAdp5b5nsKKLiv Z27vDSvssK0pMsdFShylbWu fXtcbGlzdGxldmVsXGxldmV kjoZdUrTlgGW5XPdeSfGvOy UapOU2MYywEbHxwTT2KNhsr KZtfWI4YBlstIA7JIm4EGv3 PLxaGEmsNmv1mOuljEE8WRa coI3sIBGfF40aGuLzUvHpED 02WVaiu7PzSSMyeZvePLLut H7jLxJoOAuvhfPsufGuwlLd DFzhtrJlwgPsUDrzjjTfy3E krlOblIY0DNvsqcDhuBW7oO dtWSFdW9G5P271BJtnapCvl aJcXyWtkfl5IWLqABMoViE6 u9tmsEY7pPT2URzhpRT2PSp aPlSaG2nsGQHsaD0hD80gA7 zpNLBvaErjYTjvPFVhhFI2N RE4HNSbj3iwJYRreLLemNTg HhWrWPlaRkr8f2kpHENbaR4 0uKZcjfY8zWhkDOsqhwIsiK 45SYafz2PtpMlyhXnoPbNyN VA8LFHzB8rprFZ2aXSvdXoh pSVxOS6dz6zivAT2msQvIGX 3gJczsLO9tUiyaukct6bkeH O6nFJ9DPwfwAX8YBafIuOpS 3thNNRurF8yV82bL5maSIUo lLdpLRduMQHdkJS7EXY7OZV uq4gmTJXmpGFpxOGrCrZuGQ rbBuz1w1sqUOZwjH05oPIvr nD4pZxdUZefklIgXUlbQeLk XGZpMTgwfXtcbGlzdGxldmV rUFfbncUsgxIrKfJrsKR7LG oeSrMmElXvsPH0KMdbGmKnx RS3ULfgfQCauKD6PFchyMF3 RMr1FVi9WCclZExkMkw7bTh lvSO5NIictJ9oNWFtV46aOe ErVkHtKS86UMpey7WyDMLtz TdgVSIyqD1rCvFjWLqybaRu bmZjbjIzXGxldmVsamMwXGx hoePxx1YyqtDluYJ2MGzvac LjwBH2jSmxKOOvP7K8G081B QqxuvVxgqPxEdRteuv1UADb ZLMfGsB8g6zfcLW6uPU5WUa stWQ4EVzjUrHkK1maOIKqnD 9mW53sX2crKXGyoEchYRnnV KPibRZ9SDJ4UNLut3agKMXm uNPttXHpVjFoQFrnJhs9v9f hJTYknH32dFCpdaG1rHkhBB xmczIwfXtcbGlzdGxldmVsX ZeaxiJpniXkRqAeaUJ6TYbt RxItDfNnfBW2NHclFbGfrDW 4QOejhAKnjVR0BDlkdTF2MU i0SAu1OHdbWCraGlb8jNqul CJ7TPpqiO1zOKTxC15nSnWy XvOmNO77BCcoq0GtSJNmeBy cMBCrlZ6sOcSzDCsphpPvgw ZjbjIzXGxldmVsamMwXGxld hKyu4MymtMmkUQ0SGhuokRn ePL4qBsdDJKwB3N6O281ERj uhlMucwCuScIkphf2MYSbHJ YqQjL8q3yxgTT1iUW4YYzhs RA7XIgyBcTfJ1acKDUwfM3e F01rW7gnCSRufGwiWBpxVYK kvUP1FTU2XGFvi7naTBFhtD QdsXZlKmMvSBttKdw6n4deN XHgdI70fLDgwxR5gCrcUNop czIwfXtcbGlzdGxldmVsXGx mygRycuRyVpQhwAL7MSmjLg GlFoQmhIQ3QArnEjLhnBR8C ImmbAKqdUI0LIpjqHQ6KQh4 ESp2PLwoQWliZbw7qHwsnUY 0QMflyE0zAXPkN94eXlRiWq DnWX31CJldn0NmKQZuoIxwY LKgpO5lIsLbZVexzqKaofEd bjIzXGxldmVsamMwXGxldmV fs8DjjeAgfHT3BXibkjXgeM C7hZqaVEUsO1K1E144ZUmxl zGmmxJsVmMtmqe8NTIyWZIg MnJ8dVotwBiwcKouwOB1gNN nPixiBcHdIAOcXHsvs8A7OX 0jgTY6QUbzMIY6GIidl0NlI C7qZNw0KXucl6JpaNCehYW7 QTzkh8UgZXEmmQobKPYmhL5 mYzIzXGxldmVsbmZjbjIzXG qpijPtrqEqVCuxllOiu4Hqn fZgeYE2GJgcmuVtoPM9pTwz QHEuQ5U9F394MAuwznPizaH lWwIdtwk6MMPlORZaUdSzyP nfMiFnDhdnUBD9y4jcjYA4k KU4KCfueKC2DHxfDkGaM9cz JBEzgA5sB31eF9ptUHFpcPa fBNgeXZVoqRY8ANY5DPYsj9 xsZXZlbHRleHRcJzAxXCdiN ll2u0dwUWVwzQ30tKXsjeU1 fVxmMVxmczIwfXtcbGlzdGx ldmVsXGxldmVsbmZjMjNcbG A5DBxtTlEpDnPplLQ9RShcU eXgsZY5MCwjaSPfiDO8GYjo iWC6ROh3YTn9TMqkASzxFhc 2aKpxdCA8GJixdH2vEAXfM5 3dPeNvXmUrDJ27UOzof7VhV DSczZknGHTegS0nLhRxZGdl dmVsbmZjbjIzXGxldmVsamM sCAvwiwWgz5NuraPakSF3LP grzgVwzBT0rWycKOViF5M4Z 376NFdmqySsnnPzHjNkgim6 UFTkGWCyEtO1h0gycVI8gKF 9WBnbrTY2DWdtLcWpT5fkOY UavJ1qK36eJ1cpKPWjcNatO JwxUHTuxKN1WDG0HBWmx1jm ZXZlbHRleHRcJzAxXCdiNzt 3i4esEJIzzK64xRHudnH8dS xmMVxmczIwfXtcbGlzdGxld mVsXGxldmVsbmZjMjNcbGV2 RRnsKoIaXfRmvQF8UFaqGqD ngIB9WGcjnBSanWM4CIcbiC A5ZYj1GXd6IYpgEVguAgk5o NhbgUR4BYtreV8xGGGyI10m QgVkXgKvPS99ZNoyo9CuSFM jzGtyNNLdvS5jUiOjVMtedo VsbmZjbjIzXGxldmVsamMwX FenldToo9IwozAixNL8RAxn xwDdaUP8uJwfOTGtZ4Y3M96 2DUewqnAeosVjKvPnnpz3XD SkQQWzBuR9v3eoiOC2tQB2D IempZQ9FLdsRvZxC6igNRWb dF2rH83sR4vlAGGosDrtPEv uEDAquOZ6BJL4PGQzy6dgRW YuzXVvyMEtLcGbXDyvDmb1g 7nsDEMgdK14nSHgaoM0jTuw MVxmczIwfXtcbGlzdGxldmV ySWbhznIhafZsZfLpeQY9TN xdImUqLsZvhJO9JKzbJkCrc DI7CKajqFXfbCC8IXwjtIA3 PIp5GJg2KPiuSXgcPuc3vQi hlEQ8OMajmX1nBROoN85xHq FrNjYeXD48cStaQcfwwWW8h 5GifzFpIVE6LRLxWHzxPnih tKF7o8NkvuCzUOMtkFcilIg xBesrDxB8DFQudGcojJ07OZ SiuCZiY577emKhKIwqOY53E MeneJnvpH98QBKdrZApNKew t9DaUIWkTFLuHVVaViZsuEb dhQ11UURthIUgK708mlJwCN noPa79XJspgJucjW63WGMdc ZZwQTvim1WiVBOwEAExChGo RMNruDissP51CRTkaVSoL39 7wtOpCHwzZ882RKNgqBZfsz SdLmFwNIHgiLBbcJD9PQKtZ P4igtkoRRexFFalMFKyeiU7 INYhlAWsC8ZyVCZsQY1gddm xDBJ7DVdzQTUySGB2XqAtZM Wmz3Gzjhb3HnQgbEVzPYcui TKgcdehKJGkLnEzW1LtYLTw GFgmRxDdjHLnnGH1FXbkyAK mjI6pXLTqtLDyo2bekwipaN FyXGxpMzYwXGZpMTgwXGxpb yI7XDxtcfTfcNr4xQTvyVza iK8oRvmhuyNmJLKoPWDCAF6 ybdlpkPkzzDvjbIGzsv4jlR EvibS7lK6fSSErMEttwOTyT 6I4fX8tCEMnPG8fghVeHQju TOHbwdRqdgCwF3DyqhFrfrG nH1ZlDWWveJUvwZlaBZLkuD mdhadzXYCjRpUybIfwEKL6k 5Wde3x7kJHqaBM1GMHqrCHf ZNstRTdboFxwtS7gJDCtvml ijEbmWUEiPUmrnG33HSalrv OvgHSoGDowOQmzgF1qRGEqF MTwv3IjWGmsNmSwmQKfbDE9 OWrxfPFrGSTzzNCqASD9S4k nqU6wBmbvONNwbEfgZsOnOj kxODBcbGluMzYwXGxzMlxpb HZsMFxwbGFpblxiXGZzMjBc M1VmGLNtwOEkGNQrYCNmhzx yngd3sQ5hPKcryH0abelpE7 VccGFyXGxpOTBcZmkwXGxpb jkwXGxzMFxwYXJcbGkwXGxp hwBuGb3hUPXakMBxRAQlIBG tuNN9IVYrmAirwtTxLAbje2 EqTPDkp11nPJA8U7pygY9eR lxwYXJcbGkzNjBcZmkxODBc bLjhFfPqHGkyX0lkpCCiDIz ltVVdvktuFUPuTfPhR1BnBT IlhulkhlY5XSHjsFtjpcXmL PLcc61zP62xsCM3pOHcDTT8 xDRwPOJ8xbuoxxOxo4XeKI4 vhLSfgx3vcZyocujuCXQ1 [place] Work Phone: Professional Interpretation Performed at: x4oehNTqRGGkpXNdKeYvLOF zSVEpu3mjUFZrzGEpYzKvSb NcZnRuYmpcdWMxXGRlZmYwe 4vhf066dLJhe9ycORIpPzL1 hBWrTBXhuDPkX129RWBeUHk ky5kxd7OwKRFigSTgi7Y0MB OXnbdrcAt7uIrwB22ia8T5S swxS4xcLGXrLCNbH2PqCU8a CPYwMdi7YAJ1LSZ9DQPxXSW hI5CeVU5jOMStqNRhNPc5p1 ihiTisAYWnITC6m8ueUVrrk rPzAX5uvm7xeVa0g4vaenIq PLSeZAHanSCJHAYsA3IfcUc qMg0zgAk4mOeiZqkoQSG2Pa a6GH8ytj96qnd7uJyyPNWsl zuoRiX0AGigLRPqtkgdXMa4 BKisMQKdsSN5ENTatISjH9B hZWEhXQ3kkvk3PLJ3YGztSI YlIrW2RATmqMBvZRFoaXtfX Cfcl840RLO5QjXfWD8dB3Jn e5X7vK4xvOPvZPBulIWpKnI vOODboj2chWDuJRwfa0BkTT W2cdC5oGXdcVTbDOWeYX85B kxhq3JpIvrvWHG6UESafaKd a7Eal8vnMkIoabYrF1dsZ3Z yZHJoZWFkXHBnYnJkcmZvb3 Vyf4SwjVErcSi4v0ihFVPmU XOvnObnj3ttMHH6JOIoR6D9 kGCpn8aoZOnrQXEzoWA3cnP 9EQRbrAWkL1YvkM1vYFAdLN 8nroz8d8flJCK2UTueNYXiJ rY9dkN5NOJphFRnNFGshTbu IQtqx493PHX2YjUtYVBth2C lI4RnsHncY42pbFneC52uSG PlpIxcsG0bzVgroQ7kRdWrZ nMyNFxwYXJkXHBsYWluXGYx XGZzMjJcbGFuZzEwMzNcaGl jaFxmMVxkYmNoXGYxXGxvY2 fjKnZnPjRnZzBTZ4QuX5NJP qTWTV5JZCmBPInuN2PRXUFT ICLQZT3ZP9MVSLvCRn3WCBN IVakkoSYtSLMjFZAPDEW1SS BwhPxoVXVmOLLrpaRNt3o3w TD9bfjbH4oltoX3BcJwEZxt YXJ9 [place] Work Phone: [place] Work Phone: URINALYSIS REFLEX TO CULTURE PERFORMABLEOrdered By: Sophia Wetzel on 08-24-2024 Appearance (U) Cloudy Abnormal Clear [facility] Bacteria LM Ql (Urine sed) PRESENT Abnormal ABSENT [place] Color (U) Yellow Yellow [facility] Epithelial cells.squamous LM Ql (Urine sed) 0-2/hpf 0-2/hpf, 3-5/hpf = 1+ [facility] Glucose Test strip (U) [Mass/Vol] Negative Negative [place] Interpretation and review of laboratory results [facility] Ketones (U) [Mass/Vol] Negative Negative [facility] Leukocyte esterase Test strip Ql (U) Large Abnormal Negative [facility] Nitrite Ql (U) Positive Abnormal Negative [place] pH (U) 7.5 [pH] Abnormal 5.0 - 7.0 [facility] Protein (U) [Mass/Vol] Negative Negative OS [facility] RBC (U) [#/Vol] Moderate [facility] RBC LM.HPF (Urine sed) [#/Area] 3-5 Abnormal [place] Specific gravity (U) [Rel density] 1.014 1.001 - 1.035 [place] Urobilinogen (U) [Mass/Vol] 0.2 E.U./dL 0.2 E.U/dL, 1.0 E.U/dL [place] WBC LM.HPF (Urine sed) [#/Area] 11 - 20 [facility] URINALYSIS REFLEX TO CULTURE PERFORMABLEon 08-24-2024 Appearance (U) Cloudy Abnormal Clear [facility] Comment on above: Order Comment: For i ndwelling catheters, specimen collection is acceptable on catheter day 1 and 2 only. ? Performed By: #### M EARNEST, CHM7, IPB #### [place] (DEFAULT) [address] [place] [address] Bacteria PRESENT Abnormal ABSENT [facility] Comment on above: Order Comment: For i ndwelling catheters, specimen collection is acceptable on catheter day 1 and 2 only. ? Performed By: #### JOVITA GOMEZ, IPB #### [place] (DEFAULT) [address] [place] [address] Blood Urine Moderate Abnormal Negative [facility] Comment on above: Order Comment: For i ndwelling catheters, specimen collection is acceptable on catheter day 1 and 2 only. ? Performed By: #### JOVITA GOMEZ, IPB #### [place] (DEFAULT) [address] [place] [address] Color (U) Yellow Normal Yellow [facility] Comment on above: Order Comment: For i ndwelling catheters, specimen collection is acceptable on catheter day 1 and 2 only. ? Performed By: #### JOVITA GOMEZ, IPB #### [place] (DEFAULT) [address] [place] [address] Glucose Ql (U) Negative Normal Negative [facility] Comment on above: Order Comment: For i ndwelling catheters, specimen collection is acceptable on catheter day 1 and 2 only. ? Performed By: #### JOVITA GOMEZ, IPB #### [place] (DEFAULT) [address] [place] [address] Ketones Ql (U) Negative Normal Negative [facility] Comment on above: Order Comment: For i ndwelling catheters, specimen collection is acceptable on catheter day 1 and 2 only. ? Performed By: #### JOVITA GOMEZ, IPB #### [place] (DEFAULT) [address] [place] [address] Leukocyte esterase Test strip Ql (U) Large Abnormal Negative [facility] Comment on above: Order Comment: For i ndwelling catheters, specimen collection is acceptable on catheter day 1 and 2 only. ? Performed By: #### JOVITA GOMEZ, IPB #### [place] (DEFAULT) [address] [place] [address] Nitrites Urine Positive Abnormal Negative [facility] Comment on above: Order Comment: For i ndwelling catheters, specimen collection is acceptable on catheter day 1 and 2 only. ? Performed By: #### Tony TINOCO CHMJenise, IPB #### [facility] (DEFAULT) [address] [place] [address] pH (U) 7.5 [pH] Abnormal 5.0-7.0 [facility] Comment on above: Order Comment: For i ndwelling catheters, specimen collection is acceptable on catheter day 1 and 2 only. ? Performed By: #### JOVITA GOMEZ, IPB #### [facility] (DEFAULT) [address] [place] [address] Protein Urine Negative Normal Negative [facility] Comment on above: Order Comment: For i ndwelling catheters, specimen collection is acceptable on catheter day 1 and 2 only. ? Performed By: #### JOVITA GOMEZ, IPB #### [facility] (DEFAULT) [address] [place] [address] RBC Urine 3-5 Abnormal 0-2 [facility] Comment on above: Order Comment: For i ndwelling catheters, specimen collection is acceptable on catheter day 1 and 2 only. ? Performed By: #### JOVITA GOMEZ, IPB #### [place] (DEFAULT) [address] [place] [address] Specific [place] Urine 1.014 Normal 1.001-1.035 O [facility] Comment on above: Order Comment: For i ndwelling catheters, specimen collection is acceptable on catheter day 1 and 2 only. ? Performed By: #### Tony TINOCO CHMJenise, IPB #### [facility] (DEFAULT) [address] [place] [address] Squamous/Epithelial Cells, Urine 0-2/hpf Normal 0-2/hpf, 3-5/hpf = 1+ [facility] Comment on above: Order Comment: For i ndwelling catheters, specimen collection is acceptable on catheter day 1 and 2 only. ? Performed By: #### Tony TINOCO CHMJenise, IPB #### [facility] (DEFAULT) [address] [place] [address] Urobilinogen Urine 0.2 E.U./dL Normal 0.2 E.U/d L, 1.0 E.U/dL [facility] Comment on above: Order Comment: For i ndwelling catheters, specimen collection is acceptable on catheter day 1 and 2 only. ? Performed By: #### M JOVITA TINOCO, IPB #### [place] (DEFAULT) [address] [address] WBC Urine 11 - 20 Abnormal 0 - 5 [facility] Comment on above: Order Comment: For i ndwelling catheters, specimen collection is acceptable on catheter day 1 and 2 only. ? Performed By: #### M JOVITA TINOCO, IPB #### [place] (DEFAULT) [address] [address] URINE CULTUREon 08-24-2024 Ampicillin [Susceptibility] <= Invalid Interpretation Code [facility] Comment on above: Order Comment: For [...] ? Performed By: #### U R #### U [facility] (DEFAULT) [address] [address] Nitrofurantoin [Susceptibility] <= Invalid Interpretation Code [facility] Comment on above: Order Comment: For [...] ? Performed By: #### U R #### [place] (DEFAULT) [address] [address] Penicillin [Susceptibility] 8 ug/mL Invalid Interpretation Code [facility] Comment on above: Order Comment: For [...] ? Performed By: #### U R #### [place] (DEFAULT) [address] [place] [address] Vancomycin [Susceptibility] 1 ug/mL Invalid Interpretation Code [facility] Comment on above: Order Comment: For [...] ? Performed By: #### U R #### [place] (DEFAULT) [address] [place] [address] CBC,PLATELETSon 08-23-2024 Erythrocyte distribution width (RBC) [Ratio] 13.9 % 10.8 - 14.9 % [place] Hematocrit (Bld) [Volume fraction] 42.7 % 34.9 - 44.3 % [place] Hemoglobin (Bld) [Mass/Vol] 12.8 g/dL 11.4 - 15.2 g/dL [place] Interpretation and review of laboratory results Abnormal [place] MCH (RBC) [Entitic mass] 26.5 pg 25.9 - 33.9 pg [place] MCHC (RBC) [Mass/Vol] 30 g/dL Low 31.4 - 35.9 g/dL [place] MCV (RBC) [Entitic vol] 88.4 fL 79.6 - 97.7 fL [facility] Platelet mean volume (Bld) [Entitic vol] 12 fL 8.5 - 12.2 fL [place] Platelets (Bld) [#/Vol] 188 10*3/uL 150 - 393 K/uL [place] RBC (Bld) [#/Vol] 4.83 10*6/uL [facility] WBC (Bld) [#/Vol] 6.11 10*3/uL 3.99 - 11.19 K/uL [facility] CHEM 7 (LYTES,BUN,CREA,GLUC) on 08-23-2024 Anion gap [Moles/Vol] 12 mmol/L 7 - 17 mmol/L [place] Chloride [Moles/Vol] 102 mmol/L 98 - 10 8 mmol/L [place] CO2 [Moles/Vol] 29 mmol/L 21 - 31 mmol/L [place] Creatinine [Mass/Vol] 0.6 mg/dL 0.50 - 1.20 mg/dL [place] eGFR, CKD-EPI, Female - PINF [place] Glucose [Mass/Vol] 94 mg/dL 70 - 179 mg/dL [facility] Osmolality Calc [Osmolality] 290 [place] Potassium [Moles/Vol] 4.4 mmol/L 3.5 - 5.0 mmol/L [place] Sodium [Moles/Vol] 139 mmol/L 135 - 145 mmol/L [place] Urea nitrogen [Mass/Vol] 10 mg/dL 7 - 25 mg/dL [place] Urea nitrogen/Creatinine [Mass ratio] 17 mg/mg [place] IONIZED CALCIUM, WHOLE BLOOD Ordered By: Roni Lawton on 08-23-2024 Calcium.ionized (Bld) [Moles/Vol] 4.26 mg/dL Low 4.60 - 5.30 mg/dL [place] Interpretation and review of laboratory results Abnormal [facility] MAGNESIUMon 08-23-2024 Magnesium [Mass/Vol] 1.9 mg/dL 1.6 - 2 .6 mg/dL [place] No Panel Informationon 08-23 Interpretation and review of laboratory results Normal [facility] PHOSPHATE, INORGANICon 08-23 Phosphate [Mass/Vol] 3.7 mg/dL 2.2 - 4 .6 mg/dL [place] CBC,PLATELETSon 08-22-2024 Hematocrit (Bld) [Volume fraction] 42.7 % Normal 34.9-44.3 [facility] Comment on above: Performed By: #### JOVITA GOMEZ, IPB #### [facility] (DEFAULT) [address] [place] [address] Hemoglobin (Bld) [Mass/Vol] 12.8 g/dL Normal 11.4-15.2 [facility] Comment on above: Performed By: #### JOVITA GOMEZ, IPB #### [facility] (DEFAULT) [address] [place] [address] MCV (RBC) [Entitic vol] 88.4 fL Normal 79.6-97.7 [facility] Comment on above: Performed By: #### JOVITA GOMEZ, IPB #### [place] (DEFAULT) [address] [place] [address] Mean Cell Hgb 26.5 pg Normal 25.9-33.9 [facility] Comment on above: Performed By: #### JOVITA GOMEZ, IPB #### [place] (DEFAULT) [address] [place] [address] Mean Cell Hgb Conc 30.0 g/dL Low 31.4-35.9 [facility] Comment on above: Performed By: #### JOVITA GOMEZ, IPB #### [facility] (DEFAULT) [address] [place] [address] 35054 Platelet mean volume (Bld) [Entitic vol] 12.0 fL Normal 8.5-12.2 [facility] Comment on above: Performed By: #### JOVITA GOMEZ, IPB #### [place] (DEFAULT) [address] [place] [address] 90230 Platelets (Bld) [#/Vol] 188 10*3/uL Normal 150-393 [facility] Comment on above: Performed By: #### JOVITA GOMEZ, IPB #### [place] (DEFAULT) [address] [place] [address] 72011 RBC (Bld) [#/Vol] 4.83 10*6/uL Normal 3.91-5.04 [facility] Comment on above: Performed By: #### JOVITA GOMEZ, IPB #### [place] (DEFAULT) [address] [place] [address] 75523 RBC Distribution 13.9 % Normal 10.8-14.9 [facility] Comment on above: Performed By: #### JOVITA GOMEZ, IPB #### [place] (DEFAULT) [address] [place] [address] 53031 WBC (Bld) [#/Vol] 6.11 10*3/uL Normal 3.99-11.19 [facility] Comment on above: Performed By: #### JOVITA GOMEZ, IPB #### [place] (DEFAULT) [address] [place] [address] 59901 Erythrocyte distribution width (RBC) [Ratio] 13.9 % 10.8 - 14.9 % [place] Hematocrit (Bld) [Volume fraction] 38.1 % 34.9 - 44.3 % [facility] Hemoglobin (Bld) [Mass/Vol] 11.7 g/dL 11.4 - 15.2 g/dL [place] Interpretation and review of laboratory results Abnormal [facility] MCH (RBC) [Entitic mass] 26.8 pg 25.9 - 33.9 pg [place] MCHC (RBC) [Mass/Vol] 30.7 g/dL Low 31.4 - 35.9 g/dL [place] MCV (RBC) [Entitic vol] 87.4 fL 79.6 - 97.7 fL [place] Platelet mean volume (Bld) [Entitic vol] 11.4 fL 8.5 - 12.2 fL [place] Platelets (Bld) [#/Vol] 164 10*3/uL 150 - 393 K/uL [place] RBC (Bld) [#/Vol] 4.36 10*6/uL [facility] WBC (Bld) [#/Vol] 6.45 10*3/uL 3.99 - 11.19 K/uL [facility] Hematocrit (Bld) [Volume fraction] 38.1 % Normal 34.9-44.3 [facility] Comment on above: Performed By: #### JOVITA GOMEZ, IPB #### [place] (DEFAULT) [address] [place] [address] 12521 Hemoglobin (Bld) [Mass/Vol] 11.7 g/dL Normal 11.4-15.2 [facility] Comment on above: Performed By: #### JOVITA GOMEZ, IPB #### [place] (DEFAULT) [address] [place] [address] 93433 MCV (RBC) [Entitic vol] 87.4 fL Normal 79.6-97.7 O [facility] Comment on above: Performed By: #### JOVITA GOMEZ, IPB #### [place] (DEFAULT) [address] [place] [address] 45929 Mean Cell Hgb 26.8 pg Normal 25.9-33.9 [facility] Comment on above: Performed By: #### JOVITA GOMEZ, IPB #### [place] (DEFAULT) [address] [place] [address] 13044 Mean Cell Hgb Conc 30.7 g/dL Low 31.4-35.9 [facility] Comment on above: Performed By: #### JOVITA GOMEZ, IPB #### [place] (DEFAULT) [address] [place] [address] 89117 Platelet mean volume (Bld) [Entitic vol] 11.4 fL Normal 8.5-12.2 [facility] Comment on above: Performed By: #### Tony TINOCO CHM7, IPB #### [facility] (DEFAULT) [address] [place] [address] 74214 Platelets (Bld) [#/Vol] 164 10*3/uL Normal 150-393 [facility] Comment on above: Performed By: #### Tony TINOCO CHM7, IPB #### [facility] (DEFAULT) [address] [place] [address] 66220 RBC (Bld) [#/Vol] 4.36 10*6/uL Normal 3.91-5.04 [facility] Comment on above: Performed By: #### JOVITA GOMEZ, IPB #### [facility] (DEFAULT) [address] [place] [address] 56906 RBC Distribution 13.9 % Normal 10.8-14.9 [facility] Comment on above: Performed By: #### Tony TINOCO CHMJenise, IPB #### [facility] (DEFAULT) [address] [place] [address] 64693 WBC (Bld) [#/Vol] 6.45 10*3/uL Normal 3.99-11.19 [facility] Comment on above: Performed By: #### Tony TINOCO CHMJenise, IPB #### [facility] (DEFAULT) [address] [place] [address] 12585 CHEM 7 (LYTES,BUN,CREA,GLUC) on 08-22-2024 Anion gap [Moles/Vol] 12 mmol/L Normal 7-17 [facility] Comment on above: Performed By: #### Tony TINOCO CHM7, IPB #### [facility] (DEFAULT) [address] [place] [address] 77885 Chloride [Moles/Vol] 102 mmol/L Normal 98-108 [facility] Comment on above: Performed By: #### Tony TINOCO CHM7, IPB #### [facility] (DEFAULT) [address] [place] [address] 03856 CO2 [Moles/Vol] 29 mmol/L Normal 21-31 [facility] Comment on above: Performed By: #### JOVITA GOMEZ, IPB #### [facility] (DEFAULT) [address] [place] [address] 79474 Creatinine [Mass/Vol] 0.60 mg/dL Normal 0.50-1.20 [facility] Comment on above: Performed By: #### JOVITA GOMEZ, IPB #### [facility] (DEFAULT) [address] [place] [address] 62948 eGFR, CKD-EPI, Female > Normal >=60 [facility] Comment on above: Result Comment: Repo rted eGFR is based on the CKD-EPI 2020 equation using creatinine, age, and sex. Performed By: #### JOVITA GOMEZ, IPB #### [facility] (DEFAULT) [address] [place] [address] 36894 Glucose [Mass/Vol] 94 mg/dL Normal Nonfastin -179 mg/dL; Fastin-99 [facility] Comment on above: Performed By: #### JOVITA GOMEZ, IPB #### [facility] (DEFAULT) [address] [place] [address] 28295 Osmolality [Osmolality] 290 mosm/kg Normal 278-305 [facility] Comment on above: Performed By: #### JOVITA GOMEZ, IPB #### [facility] (DEFAULT) [address] [place] [address] 21974 Potassium [Moles/Vol] 4.4 mmol/L Normal 3.5-5.0 [facility] Comment on above: Performed By: #### JOVITA GOMEZ, IPB #### [facility] (DEFAULT) [address] [place] [address] 16618 Sodium [Moles/Vol] 139 mmol/L Normal 135-145 [facility] Comment on above: Performed By: #### JOVITA GOMEZ, IPB #### [facility] (DEFAULT) [address] [place] [address] Urea nitrogen [Mass/Vol] 10 mg/dL Normal 7-25 [facility] Comment on above: Performed By: #### JOVITA GOMEZ, IPB #### [facility] (DEFAULT) [address] [place] [address] Urea nitrogen/Creatinine [Mass ratio] 17 mg/mg Normal [facility] Comment on above: Performed By: #### M JOVITA TINOCO, IPB #### [facility] (DEFAULT) [address] [place] [address] Anion gap [Moles/Vol] 11 mmol/L 7 - 17 mmol/L [facility] Chloride [Moles/Vol] 101 mmol/L 98 - 10 8 mmol/L [facility] CO2 [Moles/Vol] 31 mmol/L 21 - 31 mmol/L [facility] Creatinine [Mass/Vol] 0.61 mg/dL 0.50 - 1.20 mg/dL [facility] eGFR, CKD-EPI, Female - PINF [facility] Glucose [Mass/Vol] 122 mg/dL 70 - 179 mg/dL [place] Osmolality Calc [Osmolality] 291 [facility] Potassium [Moles/Vol] 3.9 mmol/L 3.5 - 5.0 mmol/L [place] Sodium [Moles/Vol] 139 mmol/L 135 - 145 mmol/L [place] Urea nitrogen [Mass/Vol] 10 mg/dL 7 - 25 mg/dL [facility] Urea nitrogen/Creatinine [Mass ratio] 16 mg/mg [facility] Anion gap [Moles/Vol] 11 mmol/L Normal 7-17 [facility] Comment on above: Performed By: #### JOVITA GOMEZ, IPB #### [facility] (DEFAULT) [address] [place] [address] Chloride [Moles/Vol] 101 mmol/L Normal 98-108 [facility] Comment on above: Performed By: #### JOVITA GOMEZ, IPB #### [facility] (DEFAULT) [address] [place] [address]011 CO2 [Moles/Vol] 31 mmol/L Normal 21-31 [facility] Comment on above: Performed By: #### JOVITA GOMEZ, IPB #### [facility] (DEFAULT) [address] [place] [address] 73283 Creatinine [Mass/Vol] 0.61 mg/dL Normal 0.50-1.20 [facility] Comment on above: Performed By: #### JOVITA GOMEZ, IPB #### [facility] (DEFAULT) [address] [place] [address] 78776 eGFR, CKD-EPI, Female > Normal >=60 [facility] Comment on above: Result Comment: Repo rted eGFR is based on the CKD-EPI 2020 equation using creatinine, age, and sex. Performed By: #### JOVITA GOMEZ, IPB #### [facility] (DEFAULT) [address] [place] [address] 76484 Glucose [Mass/Vol] 122 mg/dL Normal Nonfastin -179 mg/dL; Fastin-99 [facility] Comment on above: Performed By: #### JOVITA GOMEZ, IPB #### [facility] (DEFAULT) [address] [place] [address] 09165 Osmolality [Osmolality] 291 mosm/kg Normal 278-305 [facility] Comment on above: Performed By: #### JOVITA GOMEZ, IPB #### [facility] (DEFAULT) [address] [place] [address] 04823 Potassium [Moles/Vol] 3.9 mmol/L Normal 3.5-5.0 [facility] Comment on above: Performed By: #### JOVITA GOMEZ, IPB #### [facility] (DEFAULT) [address] [place] [address] 18759 Sodium [Moles/Vol] 139 mmol/L Normal 135-145 [facility] Comment on above: Performed By: #### JOVITA GOMEZ, IPB #### [place] (DEFAULT) [address] [place] [address] 14197 Urea nitrogen [Mass/Vol] 10 mg/dL Normal 7-25 [facility] Comment on above: Performed By: #### JOVITA GOMEZ, IPB #### [place] (DEFAULT) [address] [place] [address] 98170 Urea nitrogen/Creatinine [Mass ratio] 16 mg/mg Normal [facility] Comment on above: Performed By: #### JOVITA GOMEZ, IPB #### [facility] (DEFAULT) [address] [place] [address] 45893 IONIZED CALCIUM, WHOLE BLOOD on 08-22-2024 ICA 4.26 mg/dL Low 4.60-5.30 [facility] Comment on above: Performed By: #### X M #### [place] (DEFAULT) [address] [place] [address] 10230 ICA 4.24 mg/dL Low 4.60-5.30 [facility] Comment on above: Performed By: #### JOVITA GOMEZ, IPB #### [place] (DEFAULT) [address] [place] [address] 78140 IONIZED CALCIUM, WHOLE BLOOD Ordered By: Vianey Morris on 08-22-2024 Calcium.ionized (Bld) [Moles/Vol] 4.24 mg/dL Low 4.60 - 5.30 mg/dL [place] Interpretation and review of laboratory results Abnormal [facility] MAGNESIUMon 08-22-2024 Magnesium [Mass/Vol] 1.9 mg/dL Normal 1.6-2.6 [facility] Comment on above: Performed By: #### M JOVITA TINOCO, IPB #### [place] (DEFAULT) [address] [place] [address] 82311 Magnesium [Mass/Vol] 2 mg/dL 1.6 - 2 .6 mg/dL [place] Magnesium [Mass/Vol] 2.0 mg/dL Normal 1.6-2.6 [facility] Comment on above: Performed By: #### JOVITA GOMEZ, IPB #### [place] (DEFAULT) [address] [place] [address] 90021 No Panel Informationon 08-22 Interpretation and review of laboratory results Normal [facility] PHOSPHATE, INORGANICon 08-22 Phosphorous 3.7 mg/dL Normal 2.2-4.6 [facility] Comment on above: Performed By: #### JOVITA GOMEZ, IPB #### [place] (DEFAULT) [address] [place] [address] 33397 Phosphate [Mass/Vol] 3.8 mg/dL 2.2 - 4 .6 mg/dL [place] Phosphorous 3.8 mg/dL Normal 2.2-4.6 [facility] Comment on above: Performed By: #### JOVITA GOMEZ, IPB #### [place] (DEFAULT) [address] [place] [address] 80383 CBC,PLATELETSon 08-21-2024 Erythrocyte distribution width (RBC) [Ratio] 13.8 % 10.8 - 14.9 % [place] Hematocrit (Bld) [Volume fraction] 39.1 % 34.9 - 44.3 % [place] Hemoglobin (Bld) [Mass/Vol] 12.1 g/dL 11.4 - 15.2 g/dL [place] Interpretation and review of laboratory results Abnormal [place] MCH (RBC) [Entitic mass] 26.5 pg 25.9 - 33.9 pg [place] MCHC (RBC) [Mass/Vol] 30.9 g/dL Low 31.4 - 35.9 g/dL [place] MCV (RBC) [Entitic vol] 85.6 fL 79.6 - 97.7 fL [place] Platelet mean volume (Bld) [Entitic vol] 11.4 fL 8.5 - 12.2 fL [place] Platelets (Bld) [#/Vol] 191 10*3/uL 150 - 393 K/uL [place] RBC (Bld) [#/Vol] 4.57 10*6/uL [facility] WBC (Bld) [#/Vol] 11.05 10*3/uL 3.99 - 11.19 K/uL [facility] Hematocrit (Bld) [Volume fraction] 39.1 % Normal 34.9-44.3 [facility] Comment on above: Performed By: #### GRIS GOMEZ7, IPB #### [place] (DEFAULT) [address] [place] [address] 86743 Hemoglobin (Bld) [Mass/Vol] 12.1 g/dL Normal 11.4-15.2 [facility] Comment on above: Performed By: #### JOVITA GOMEZ, IPB #### [place] (DEFAULT) [address] [place] [address] 46447 MCV (RBC) [Entitic vol] 85.6 fL Normal 79.6-97.7 O [facility] Comment on above: Performed By: #### JOVITA GOMEZ, IPB #### [place] (DEFAULT) [address] [place] [address] 20370 Mean Cell Hgb 26.5 pg Normal 25.9-33.9 [facility] Comment on above: Performed By: #### JOVITA GOMEZ, IPB #### [place] (DEFAULT) [address] [place] [address] 15056 Mean Cell Hgb Conc 30.9 g/dL Low 31.4-35.9 [facility] Comment on above: Performed By: #### Tony TINOCO CHMJenise, IPB #### [place] (DEFAULT) [address] [place] [address] 63306 Platelet mean volume (Bld) [Entitic vol] 11.4 fL Normal 8.5-12.2 [facility] Comment on above: Performed By: #### JOVITA GOMEZ, IPB #### [facility] (DEFAULT) [address] [place] [address] 26571 Platelets (Bld) [#/Vol] 191 10*3/uL Normal 150-393 [facility] Comment on above: Performed By: #### JOVITA GOMEZ, IPB #### [facility] (DEFAULT) [address] [place] [address] 09060 RBC (Bld) [#/Vol] 4.57 10*6/uL Normal 3.91-5.04 [facility] Comment on above: Performed By: #### JOVITA GOMEZ, IPB #### [place] (DEFAULT) [address] [place] [address] 63603 RBC Distribution 13.8 % Normal 10.8-14.9 [facility] Comment on above: Performed By: #### JOVITA GOMEZ, IPB #### [place] (DEFAULT) [address] [place] [address] 75102 WBC (Bld) [#/Vol] 11.05 10*3/uL Normal 3.99-11.19 [facility] Comment on above: Performed By: #### JOVITA GOMEZ, IPB #### [place] (DEFAULT) [address] [place] [address] 10833 CHEM 7 (LYTES,BUN,CREA,GLUC) on 08-21-2024 Anion gap [Moles/Vol] 10 mmol/L 7 - 17 mmol/L [place] Chloride [Moles/Vol] 101 mmol/L 98 - 10 8 mmol/L [place] CO2 [Moles/Vol] 32 mmol/L High 21 - 31 mmol/L [place] Creatinine [Mass/Vol] 0.57 mg/dL 0.50 - 1.20 mg/dL [place] eGFR, CKD-EPI, Female - PINF [place] Glucose [Mass/Vol] 125 mg/dL 70 - 179 mg/dL [place] Interpretation and review of laboratory results Abnormal [place] Osmolality Calc [Osmolality] 291 [place] Potassium [Moles/Vol] 4.1 mmol/L 3.5 - 5.0 mmol/L [place] Sodium [Moles/Vol] 139 mmol/L 135 - 145 mmol/L [place] Urea nitrogen [Mass/Vol] 8 mg/dL 7 - 25 mg/dL [place] Urea nitrogen/Creatinine [Mass ratio] 14 mg/mg [place] Anion gap [Moles/Vol] 10 mmol/L Normal 7-17 [facility] Comment on above: Performed By: #### JOVITA GOMEZ, IPB #### [place] (DEFAULT) [address] [place] [address] Chloride [Moles/Vol] 101 mmol/L Normal 98-108 [facility] Comment on above: Performed By: #### JOVITA GOMEZ, IPB #### [place] (DEFAULT) [address] [place] [address] CO2 [Moles/Vol] 32 mmol/L High 21-31 [facility] Comment on above: Performed By: #### JOVITA GOMEZ, IPB #### [place] (DEFAULT) [address] [place] [address] Creatinine [Mass/Vol] 0.57 mg/dL Normal 0.50-1.20 [facility] Comment on above: Performed By: #### JOVITA GOMEZ, IPB #### [place] (DEFAULT) [address] [place] [address] eGFR, CKD-EPI, Female > Normal >=60 [facility] Comment on above: Result Comment: Repo rted eGFR is based on the CKD-EPI 2020 equation using creatinine, age, and sex. Performed By: #### JOVITA GOMEZ, IPB #### [facility] (DEFAULT) [address] [place] [address] 30505 Glucose [Mass/Vol] 125 mg/dL Normal Nonfastin -179 mg/dL; Fastin-99 [facility] Comment on above: Performed By: #### JOVITA GOMEZ, IPB #### [facility] (DEFAULT) [address] [place] [address] 53775 Osmolality [Osmolality] 291 mosm/kg Normal 278-305 [facility] Comment on above: Performed By: #### JOVITA GOMEZ, IPB #### [facility] (DEFAULT) [address] [place] [address] 72106 Potassium [Moles/Vol] 4.1 mmol/L Normal 3.5-5.0 [facility] Comment on above: Performed By: #### JOVITA GOMEZ, IPB #### [facility] (DEFAULT) [address] [place] [address] 86699 Sodium [Moles/Vol] 139 mmol/L Normal 135-145 [facility] Comment on above: Performed By: #### JOVITA GOMEZ, IPB #### [facility] (DEFAULT) [address] [place] [address] 35732 Urea nitrogen [Mass/Vol] 8 mg/dL Normal 7-25 [facility] Comment on above: Performed By: #### JOVITA GOMEZ, IPB #### [facility] (DEFAULT) [address] [place] [address] 12381 Urea nitrogen/Creatinine [Mass ratio] 14 mg/mg Normal [facility] Comment on above: Performed By: #### JOVITA GOMEZ, IPB #### [facility] (DEFAULT) [address] [place] [address] 08731 GLUCOSE POCon 08-21-2024 Glucose [Mass/Vol] 120 mg/dL 70 - 179 mg/dL [place] POC Sample Type CAPBL [facility] IONIZED CALCIUM, WHOLE BLOOD Ordered By: Marivel Llanes on 08-21-2024 Calcium.ionized (Bld) [Moles/Vol] 4.52 mg/dL Low 4.60 - 5.30 mg/dL [place] Interpretation and review of laboratory results Abnormal [facility] IONIZED CALCIUM, WHOLE BLOOD on 08-21-2024 ICA 4.52 mg/dL Low 4.60-5.30 [facility] Comment on above: Performed By: #### U R #### [place] (DEFAULT) [address] [place] [address] MAGNESIUMon 08-21-2024 Magnesium [Mass/Vol] 1.8 mg/dL 1.6 - 2 .6 mg/dL [place] Magnesium [Mass/Vol] 1.8 mg/dL Normal 1.6-2.6 [facility] Comment on above: Performed By: #### JOVITA GOMEZ, IPB #### [place] (DEFAULT) [address] [place] [address] No Panel Informationon 08-21 Interpretation and review of laboratory results Normal [facility] PHOSPHATE, INORGANICon 08-21 Phosphate [Mass/Vol] 3.6 mg/dL 2.2 - 4 .6 mg/dL [place] Phosphorous 3.6 mg/dL Normal 2.2-4.6 [facility] Comment on above: Performed By: #### JOVITA GOMEZ, IPB #### [place] (DEFAULT) [address] [place] [address] Portable XR Chest Viewson RADIOLOGY RADIOLOGY [place] Radiology Study observation (narrative) [facility] Portable XR Chest ViewsOrder ed By: Lavelle Pate on 08-21-2024 [place] Work Phone: XR CHEST 1 VIEW PORTABLEon 0 08-21-2024 [...] unremarkable. IMPRESSION: No acute cardiopulmonary findings Normal [facility] CARDIAC RHYTHMon 08-20-2024 [place] CBC,PLATELETSon 08-20-2024 Hematocrit (Bld) [Volume fraction] 45.1 % High 34.9-44.3 [place] Comment on above: Performed By: #### JOVITA GOMEZ, IPB #### [place] (DEFAULT) [address] [place] [address] 87136 Hemoglobin (Bld) [Mass/Vol] 13.5 g/dL Normal 11.4-15.2 [place] Comment on above: Performed By: #### JOVITA GOMEZ, IPB #### [place] (DEFAULT) [address] [place] [address] 41667 MCV (RBC) [Entitic vol] 88.4 fL Normal 79.6-97.7 [facility] Comment on above: Performed By: #### JOVITA GOMEZ, IPB #### [place] (DEFAULT) [address] [place] [address] 65443 Platelet mean volume (Bld) [Entitic vol] 11.4 fL Normal 8.5-12.2 [place] Comment on above: Performed By: #### JOVITA GOMEZ, IPB #### [place] (DEFAULT) [address] [place] [address] 55215 Platelets (Bld) [#/Vol] 190 10*3/uL Normal 150-393 [place] Comment on above: Performed By: #### JOVITA GOMEZ, IPB #### [place] (DEFAULT) [address] [place] [address] 66963 WBC (Bld) [#/Vol] 6.45 10*3/uL Normal 3.99-11.19 [facility] Comment on above: Performed By: #### JOVITA GOMEZ, IPB #### [place] (DEFAULT) [address] [place] [address] 75902 Erythrocyte distribution width (RBC) [Ratio] 13.6 % 10.8 - 14.9 % [place] Interpretation and review of laboratory results Abnormal [place] MCH (RBC) [Entitic mass] 26.5 pg 25.9 - 33.9 pg [place] MCHC (RBC) [Mass/Vol] 29.9 g/dL Low 31.4 - 35.9 g/dL [place] RBC (Bld) [#/Vol] 5.1 10*6/uL High [facility] Mean Cell Hgb 26.5 pg Normal 25.9-33.9 [facility] Comment on above: Performed By: #### JOVITA GOMEZ, IPB #### [place] (DEFAULT) [address] [place] [address] 02317 Mean Cell Hgb Conc 29.9 g/dL Low 31.4-35.9 [facility] Comment on above: Performed By: #### JOVITA GOMEZ, IPB #### [place] (DEFAULT) [address] [place] [address] 93474 RBC (Bld) [#/Vol] 5.10 10*6/uL High 3.91-5.04 [facility] Comment on above: Performed By: #### JOVITA GOMEZ, IPB #### [place] (DEFAULT) [address] [place] [address] 79205 RBC Distribution 13.6 % Normal 10.8-14.9 [facility] Comment on above: Performed By: #### M GO, CHM7, IPB #### [place] (DEFAULT) [address] [place] [address] 30352 CHEM 7 (LYTES,BUN,CREA,GLUC) on 08-20-2024 Anion gap [Moles/Vol] 15 mmol/L Normal 7-17 [place] Comment on above: Performed By: #### X M #### [place] (DEFAULT) [address] [place] [address] 22580 Chloride [Moles/Vol] 104 mmol/L Normal 98-108 [place] Comment on above: Performed By: #### X M #### [place] (DEFAULT) [address] [place] [address] 72573 CO2 [Moles/Vol] 25 mmol/L Normal 21-31 [facility] Comment on above: Performed By: #### X M #### [place] (DEFAULT) [address] [place] [address] 68999 Creatinine [Mass/Vol] 0.66 mg/dL Normal 0.50-1.20 [place] Comment on above: Performed By: #### X M #### [place] (DEFAULT) [address] [place] [address] 69021 Glucose [Mass/Vol] 101 mg/dL Normal Nonfastin -179 mg/dL; Fastin-99 [place] Comment on above: Performed By: #### X M #### [place] (DEFAULT) [address] [place] [address] 62815 Potassium [Moles/Vol] 4.2 mmol/L Normal 3.5-5.0 [place] Comment on above: Performed By: #### X M #### [place] (DEFAULT) [address] [place] [address] 57376 Sodium [Moles/Vol] 140 mmol/L Normal 135-145 [facility] Comment on above: Performed By: #### X M #### [place] (DEFAULT) [address] [place] [address] Urea nitrogen [Mass/Vol] 8 mg/dL Normal 7-25 [place] Comment on above: Performed By: #### X M #### [place] (DEFAULT) [address] [place] [address] Urea nitrogen/Creatinine [Mass ratio] 12 mg/mg Normal [place] Comment on above: Performed By: #### X M #### [place] (DEFAULT) [address] [place] [address] 14745 eGFR, CKD-EPI, Female - PINF [place] Osmolality Calc [Osmolality] 292 [place] eGFR, CKD-EPI, Female > Normal >=60 [facility] Comment on above: Result Comment: Repo rted eGFR is based on the CKD-EPI 2020 equation using creatinine, age, and sex. Performed By: #### X M #### [place] (DEFAULT) [address] [place] [address] 55751 Osmolality [Osmolality] 292 mosm/kg Normal 278-305 [facility] Comment on above: Performed By: #### X M #### [place] (DEFAULT) [address] [place] [address] HEAD WITHOUT CONTRASTon 0 08-20-2024 CT [...] have reviewed and approved this report. Normal [facility] CT Head WO contraston 2024 RADIOLOGY RADIOLOGY [facility] GLUCOSE POCon 08-20-2024 Glucose [Mass/Vol] 99 mg/dL 70 - 179 mg/dL [place] POC Sample Type CAPBL [facility] Glucose [Mass/Vol] 111 mg/dL 70 - 179 mg/dL [place] POC Sample Type CAPBL [facility] MAGNESIUMon 08-20-2024 Magnesium [Mass/Vol] 1.9 mg/dL Normal 1.6-2.6 [place] Comment on above: Performed By: #### X M #### [place] (DEFAULT) [address] [place] [address] No Panel InformationOrdered By: Sis Gunter on 08-20-2024 [place] Work Phone: No Panel Informationon 08-20 Interpretation and review of laboratory results Normal [facility] Radiology Study observation (narrative) [facility] PHOSPHATE, INORGANICon 08-20 Phosphate [Mass/Vol] 4.2 mg/dL 2.2 - 4 .6 mg/dL [place] Phosphorous 4.2 mg/dL Normal 2.2-4.6 [facility] Comment on above: Performed By: #### S URGP #### [place] (DEFAULT) [address] [place] [address] 91562 PT,INR,PTTon 08-20-2024 PT Coag (PPP) [Time] 12.5 s Normal 11.9-14.2 [place] Comment on above: Performed By: #### M JOVITA TINOCO, IPB #### [place] (DEFAULT) [address] [place] [address] 03200 aPTT Coag (PPP) [Time] 24.8 s [facility] INR Coag (Bld) [Relative time] 0.9 {INR} 0.9 - 1.1 [place] Interpretation and review of laboratory results Normal [facility] aPTT Coag (Bld) [Time] 24.8 s Normal 24.0-34.3 [facility] Comment on above: Performed By: #### M JOVITA TINOCO, IPB #### [place] (DEFAULT) [address] [place] [address] 97527 INR Coag (PPP) [Relative time] 0.9 {INR} Normal 0.9-1.1 [facility] Comment on above: Performed By: #### M JOVITA TINOCO, IPB #### [place] (DEFAULT) [address] [place] [address] 60349 SURG PATH REQUESTon 08-21-19 Case Report Normal [facility] Comment on above: Result Comment: Surg ical Pathology Report Case: [id number] Authorizing Provider: Marian Mcdonald MD Collected: 08/20/2024 11:18 AM Ordering Location: [facility] Received: 08/20/2024 01:15 PM Pathologist: Vitaliy Peace MD Specimens: A) - SURG PATH, left parietal lesion B) - SURG PATH, left parietal hematoma C) - SURG PATH, left parietal vascular malformation Performed By: #### S URGP #### [place] (DEFAULT) [address] [place] [address] 32592 Clinical History Preop Diagnosis: Fistula. History of Crohn's disease, restless leg syndrome, and atrial fibrillation. 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 Normal [facility] Comment on above: Performed By: #### S URGP #### [place] (DEFAULT) [address] [place] [address] 82019 Gross Description Normal [facility] Comment on above: Result Comment: The specimens [...] bisected. TE 1 Lab Use Only: JobID [id number] Fiorellaer for this case was: Man Zambrano Performed By: #### S URGP #### [place] (DEFAULT) [address] [place] [address] 69778 Microscopic Description Normal [facility] Comment on above: Result Comment: A mi croscopic examination was performed. All controls show appropriate reactivity. All immunohistochemistry (IHC), in situ hybridization (LELE), and histochemical tests were developed by and are performed at the [facility] Histology [facility] IHC Lab, [address] [place] [address], [place] [address]. All Immunofluorescent (IF) tests were developed by and are performed at the [facility], Renal Division, [address] [place] [address]. All tests reported here, except for PD-L1, have not been cleared by or approved by the [place] Food and Drug Administration (FDA). The laboratory is regulated under CLIA as qualified to perform high-complexity testing. The tests are used for clinical purposes. They should not be regarded as investigational or for research. Performed By: #### S URGP #### [place] (DEFAULT) [address] [place] [address] Pathologic Diagnosis Normal [facility] Comment on above: Result Comment: A. L eft parietal lesion, excision: Meningothelial proliferation, calcification, hemorrhage, and reactive vascular proliferation Benign cyst with flat epithelial lining B. Clot, left parietal hematoma, excision: Acute and organizing hemorrhage C. 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 Yes [address] [place] [address] Performed By: #### S URGP #### [place] (DEFAULT) [address] [place] [address] 22047 TYPE AND SCREENon 08-20-2024 ABO/RH(D) TYPE Positive Normal [facility] Comment on above: Performed By: #### X M #### [place] (DEFAULT) [address] [address] Specimen Expiration 08/23/2024 23:59 Normal [facility] Comment on above: Performed By: #### X M #### [place] (DEFAULT) [address] [place] [address] [place] CBC,PLATELETSon 08-19-2024 Erythrocyte distribution width (RBC) [Ratio] 13.8 % 10.8 - 14.9 % [place] Hematocrit (Bld) [Volume fraction] 42.1 % 34.9 - 44.3 % [place] Hemoglobin (Bld) [Mass/Vol] 13 g/dL 11.4 - 15.2 g/dL [place] Interpretation and review of laboratory results Abnormal [place] MCH (RBC) [Entitic mass] 26.5 pg 25.9 - 33.9 pg [place] MCHC (RBC) [Mass/Vol] 30.9 g/dL Low 31.4 - 35.9 g/dL [place] MCV (RBC) [Entitic vol] 85.9 fL 79.6 - 97.7 fL [place] Platelet mean volume (Bld) [Entitic vol] 11.3 fL 8.5 - 12.2 fL [place] Platelets (Bld) [#/Vol] 174 10*3/uL 150 - 393 K/uL [place] RBC (Bld) [#/Vol] 4.9 10*6/uL [facility] WBC (Bld) [#/Vol] 5.76 10*3/uL 3.99 - 11.19 K/uL [facility] Hematocrit (Bld) [Volume fraction] 42.1 % Normal 34.9-44.3 [facility] Comment on above: Performed By: #### [facility] ####[place] (DEFAULT)[address] [place] [address] Hemoglobin (Bld) [Mass/Vol] 13.0 g/dL Normal 11.4-15.2 [facility] Comment on above: Performed By: #### [facility] ####[place] (DEFAULT)[address] [place] [address]14 MCV (RBC) [Entitic vol] 85.9 fL Normal 79.6-97.7 O [facility] Comment on above: Performed By: #### H EMOGC ####[place] (DEFAULT)[address] [place] [address] Mean Cell Hgb 26.5 pg Normal 25.9-33.9 [facility] Comment on above: Performed By: #### H EMOGC ####[place] (DEFAULT)[address] [facility] [address] Mean Cell Hgb Conc 30.9 g/dL Low 31.4-35.9 [facility] Comment on above: Performed By: #### H EMOGC ####[place] (DEFAULT)[address] [facility] [address] Platelet mean volume (Bld) [Entitic vol] 11.3 fL Normal 8.5-12.2 [facility] Comment on above: Performed By: #### H EMOGC ####[place] (DEFAULT)[address] [place] [address] Platelets (Bld) [#/Vol] 174 10*3/uL Normal 150-393 [facility] Comment on above: Performed By: #### H EMOGC ####[place] (DEFAULT)[address] [facility] [address] RBC (Bld) [#/Vol] 4.90 10*6/uL Normal 3.91-5.04 [facility] Comment on above: Performed By: #### H EMOGC ####[place] (DEFAULT)[address] [place] [address] RBC Distribution 13.8 % Normal 10.8-14.9 [facility] Comment on above: Performed By: #### H EMOGC ####[place] (DEFAULT)[address] [place] [address] WBC (Bld) [#/Vol] 5.76 10*3/uL Normal 3.99-11.19 [facility] Comment on above: Performed By: #### [facility] ####[place] (DEFAULT)[address] [place] [address]65 CHEM 7 (LYTES,BUN,CREA,GLUC) on 08-19-2024 Anion gap [Moles/Vol] 11 mmol/L 7 - 17 mmol/L [place] Chloride [Moles/Vol] 103 mmol/L 98 - 10 8 mmol/L [place] CO2 [Moles/Vol] 30 mmol/L 21 - 31 mmol/L [place] Creatinine [Mass/Vol] 0.61 mg/dL 0.50 - 1.20 mg/dL [place] eGFR, CKD-EPI, Female - PINF [place] Glucose [Mass/Vol] 104 mg/dL 70 - 179 mg/dL [place] Osmolality Calc [Osmolality] 292 [place] Potassium [Moles/Vol] 4.2 mmol/L 3.5 - 5.0 mmol/L [place] Sodium [Moles/Vol] 140 mmol/L 135 - 145 mmol/L [place] Urea nitrogen [Mass/Vol] 9 mg/dL 7 - 25 mg/dL [place] Urea nitrogen/Creatinine [Mass ratio] 15 mg/mg [place] Anion gap [Moles/Vol] 11 mmol/L Normal 7-17 [facility] Comment on above: Performed By: #### U R #### [facility] (DEFAULT) [address] [place] [address] Chloride [Moles/Vol] 103 mmol/L Normal 98-108 [facility] Comment on above: Performed By: #### U R #### [place] (DEFAULT) [address] [place] [address] CO2 [Moles/Vol] 30 mmol/L Normal 21-31 [facility] Comment on above: Performed By: #### U R #### [place] (DEFAULT) [address] [place] [address]47 Creatinine [Mass/Vol] 0.61 mg/dL Normal 0.50-1.20 [facility] Comment on above: Performed By: #### U R #### [place] (DEFAULT) [address] [place] [address] 43866 eGFR, CKD-EPI, Female > Normal >=60 [facility] Comment on above: Result Comment: Repo rted eGFR is based on the CKD-EPI 2020 equation using creatinine, age, and sex. Performed By: #### U R #### [place] (DEFAULT) [address] [place] [address]45 Glucose [Mass/Vol] 104 mg/dL Normal Nonfastin -179 mg/dL; Fastin-99 [facility] Comment on above: Performed By: #### U R #### [place] (DEFAULT) [address] [place] [address]3552 Osmolality [Osmolality] 292 mosm/kg Normal 278-305 [facility] Comment on above: Performed By: #### U R #### [place] (DEFAULT) [address] [place] [address]24 Potassium [Moles/Vol] 4.2 mmol/L Normal 3.5-5.0 [facility] Comment on above: Performed By: #### U R #### [place] (DEFAULT) [address] [place] [address] 69127 Sodium [Moles/Vol] 140 mmol/L Normal 135-145 [facility] Comment on above: Performed By: #### U R #### [place] (DEFAULT) [address] [address] Urea nitrogen [Mass/Vol] 9 mg/dL Normal 7-25 [facility] Comment on above: Performed By: #### U R #### [place] (DEFAULT) [address] [place] [address] 48698 Urea nitrogen/Creatinine [Mass ratio] 15 mg/mg Normal [facility] Comment on above: Performed By: #### U R #### [place] (DEFAULT) [address] [place] [address] HEAD WITHOUT CONTRASTon 0 08-19-2024 CT [...] change. Stable left parietal lobe hematoma. Normal [facility] CT Head WO contraston 20[address] [place] CT Head WO contrastOrdered B y: Chuy Will on 08-19-2024 [place] Work Phone: GLUCOSE POCon 08-19-2024 Glucose [Mass/Vol] 109 mg/dL 70 - 179 mg/dL [place] POC Sample Type CAPBL [facility] MAGNESIUMon 08-19-2024 Magnesium [Mass/Vol] 1.9 mg/dL 1.6 - 2 .6 mg/dL [place] Magnesium [Mass/Vol] 1.9 mg/dL Normal 1.6-2.6 [facility] Comment on above: Performed By: #### U R #### [place] (DEFAULT) [address] [place] [address]10 No Panel Informationon 08-19 Interpretation and review of laboratory results Normal [facility] PHOSPHATE, INORGANICon 08-19 Phosphate [Mass/Vol] 4.5 mg/dL 2.2 - 4 .6 mg/dL [place] Phosphorous 4.5 mg/dL Normal 2.2-4.6 [facility] Comment on above: Performed By: #### U R #### [place] (DEFAULT) [address] [place] [address] PT,INR,PTTon 08-19-2024 aPTT Coag (PPP) [Time] 25.4 s [facility] INR Coag (Bld) [Relative time] 1 {INR} 0.9 - 1.1 [place] Interpretation and review of laboratory results Normal [place] PT Coag (PPP) [Time] 13.2 s [facility] aPTT Coag (Bld) [Time] 25.4 s Normal 24.0-34.3 [facility] Comment on above: Performed By: #### X M #### [place] (DEFAULT) [address] [place] [address] 22352 INR Coag (PPP) [Relative time] 1.0 {INR} Normal 0.9-1.1 [facility] Comment on above: Performed By: #### X M #### [place] (DEFAULT) [address] [place] [address]20 PT Coag (PPP) [Time] 13.2 s Normal 11.9-14.2 [facility] Comment on above: Performed By: #### X M #### [place] (DEFAULT) [address] [place] [address] 27979 ABORH TYPE RECONFIRMATIONon 08-18-2024 ABO/RH(D) TYPE Positive [facility] ABO/RH(D) TYPE Positive Normal [facility] Comment on above: Performed By: #### T YPEC #### [place] (DEFAULT) [address] [place] [address]337 CALCIUMon 08-18-2024 Calcium [Mass/Vol] 8 mg/dL Low 8.6 - 10. 5 mg/dL [place] Calcium [Mass/Vol] 8.0 mg/dL Low 8.6-10.5 [facility] Comment on above: Performed By: #### U [id number] #### [place] (DEFAULT) [address] [place] [address]019 CBC AND ELECTRONIC DIFFon Basophils (Bld) [#/Vol] 0.08 10*3/uL 0.00 - 0.15 K/uL [place] Basophils/100 WBC (Bld) 1.3 % [facility] Differential cell count method Nom (Bld) Electronic Differential [facility] Eosinophils (Bld) [#/Vol] 0.16 10*3/uL 0.00 - 0.42 K/uL [place] Eosinophils/100 WBC (Bld) 2.6 % [place] Erythrocyte distribution width (RBC) [Ratio] 13.7 % 10.8 - 14.9 % [place] Hematocrit (Bld) [Volume fraction] 41.5 % 34.9 - 44.3 % [place] Hemoglobin (Bld) [Mass/Vol] 12.7 g/dL 11.4 - 15.2 g/dL [place] Immature granulocytes (Bld) [#/Vol] K/uL NINF - 0.08 K/uL [place] Immature granulocytes/100 WBC (Bld) 0.3 % [place] Interpretation and review of laboratory results Abnormal [place] Lymphocytes (Bld) [#/Vol] 1.8 10*3/uL 1.16 - 3.51 K/uL [place] Lymphocytes/100 WBC (Bld) 28.8 % [place] MCH (RBC) [Entitic mass] 26.3 pg 25.9 - 33.9 pg [place] MCHC (RBC) [Mass/Vol] 30.6 g/dL Low 31.4 - 35.9 g/dL [place] MCV (RBC) [Entitic vol] 86.1 fL 79.6 - 97.7 fL [place] Monocytes (Bld) [#/Vol] 0.47 10*3/uL 0.22 - 0.87 K/uL [place] Monocytes/100 WBC (Bld) 7.5 % O [facility] Neutrophils (Bld) [#/Vol] 3.73 10*3/uL 1.64 - 7.28 K/uL [place] Nucleated RBC/100 WBC (Bld) [Ratio] 0 % NINF [place] Platelet mean volume (Bld) [Entitic vol] 11.4 fL 8.5 - 12.2 fL [place] Platelets (Bld) [#/Vol] 194 10*3/uL 150 - 393 K/uL [place] RBC (Bld) [#/Vol] 4.82 10*6/uL [facility] Segmented neutrophils/100 WBC (Bld) 59.5 % [place] WBC (Bld) [#/Vol] 6.26 10*3/uL 3.99 - 11.19 K/uL [facility] Basophils (Bld) [#/Vol] 0.08 10*3/uL Normal 0.00-0.15 [facility] Comment on above: Performed By: #### U [id number] #### [place] (DEFAULT) [address] [place] [address] 67299 Basophils/100 WBC (Bld) 1.3 % Normal O [facility] Comment on above: Performed By: #### U [id number] #### [place] (DEFAULT) [address] [place] [address] 97318 DIFF STATUS Electronic Differential Normal [facility] Comment on above: Performed By: #### U [id number] #### [place] (DEFAULT) [address] [place] [address] 31802 Eosinophils (Bld) [#/Vol] 0.16 10*3/uL Normal 0.00-0.42 [facility] Comment on above: Performed By: #### U [id number] #### [place] (DEFAULT) [address] [place] [address] 45415 Eosinophils/100 WBC (Bld) 2.6 % Normal [facility] Comment on above: Performed By: #### U [id number] #### [place] (DEFAULT) [address] [place] [address] 91394 Hematocrit (Bld) [Volume fraction] 41.5 % Normal 34.9-44.3 [facility] Comment on above: Performed By: #### U [id number] #### [place] (DEFAULT) [address] [place] [address] 60594 Hemoglobin (Bld) [Mass/Vol] 12.7 g/dL Normal 11.4-15.2 [facility] Comment on above: Performed By: #### U [id number] #### [place] (DEFAULT) [address] [place] [address] 79512 Immature Grans % 0.3 % Normal [facility] Comment on above: Performed By: #### U [id number] #### [place] (DEFAULT) [address] [address] Immature Grans Absolute < Normal <=0.08 O [facility] Comment on above: Performed By: #### U [id number] #### [place] (DEFAULT) [address] [place] [address] 82655 Lymphocytes (Bld) [#/Vol] 1.80 10*3/uL Normal 1.16-3.51 [facility] Comment on above: Performed By: #### U [id number] #### [facility] (DEFAULT) [address] [place] [address] 16859 Lymphocytes/100 WBC (Bld) 28.8 % Normal [facility] Comment on above: Performed By: #### U [id number] #### [facility] (DEFAULT) [address] [place] [address] 36874 MCV (RBC) [Entitic vol] 86.1 fL Normal 79.6-97.7 O [facility] Comment on above: Performed By: #### U [id number] #### [place] (DEFAULT) [address] [place] [address] 07335 Mean Cell Hgb 26.3 pg Normal 25.9-33.9 [facility] Comment on above: Performed By: #### U [id number] #### [place] (DEFAULT) [address] [place] [address] 63436 Mean Cell Hgb Conc 30.6 g/dL Low 31.4-35.9 [facility] Comment on above: Performed By: #### U [id number] #### [place] (DEFAULT) [address] [place] [address] 45153 Monocytes (Bld) [#/Vol] 0.47 10*3/uL Normal 0.22-0.87 [facility] Comment on above: Performed By: #### U [id number] #### [place] (DEFAULT) [address] [address] Monocytes/100 WBC (Bld) 7.5 % Normal O [facility] Comment on above: Performed By: #### U [id number] #### [place] (DEFAULT) [address] [place] [address] 36343 Nucleated RBC 0.0 /100 WBC Normal <=0.2 [facility] Comment on above: Performed By: #### U [id number] #### [place] (DEFAULT) [address] [place] [address] 08810 Platelet mean volume (Bld) [Entitic vol] 11.4 fL Normal 8.5-12.2 [facility] Comment on above: Performed By: #### U [id number] #### [facility] (DEFAULT) [address] [place] [address] 08106 Platelets (Bld) [#/Vol] 194 10*3/uL Normal 150-393 [facility] Comment on above: Performed By: #### U [id number] #### [place] (DEFAULT) [address] [place] [address] 61273 RBC (Bld) [#/Vol] 4.82 10*6/uL Normal 3.91-5.04 [facility] Comment on above: Performed By: #### U [id number] #### [facility] (DEFAULT) [address] [place] [address] 49919 RBC Distribution 13.7 % Normal 10.8-14.9 [facility] Comment on above: Performed By: #### U [id number] #### [facility] (DEFAULT) [address] [place] [address] 01102 Segs + Bands Auto 59.5 % Normal [facility] Comment on above: Performed By: #### U [id number] #### [facility] (DEFAULT) [address] [place] [address] 68287 Segs + Bands,Absolute Auto 3.73 K/uL Normal 1.64-7.28 [facility] Comment on above: Performed By: #### U [id number] #### [facility] (DEFAULT) [address] [place] [address] 62961 WBC (Bld) [#/Vol] 6.26 10*3/uL Normal 3.99-11.19 [facility] Comment on above: Performed By: #### U [id number] #### [place] (DEFAULT) [address] [place] [address] 04226 CHEM 7 (LYTES,BUN,CREA,GLUC) on 08-18-2024 Anion gap [Moles/Vol] 13 mmol/L 7 - 17 mmol/L [place] Chloride [Moles/Vol] 103 mmol/L 98 - 10 8 mmol/L [facility] CO2 [Moles/Vol] 25 mmol/L 21 - 31 mmol/L [place] Creatinine [Mass/Vol] 0.54 mg/dL 0.50 - 1.20 mg/dL [place] eGFR, CKD-EPI, Female - PINF [place] Glucose [Mass/Vol] 103 mg/dL 70 - 179 mg/dL [place] Osmolality Calc [Osmolality] 285 [facility] Potassium [Moles/Vol] 3.6 mmol/L 3.5 - 5.0 mmol/L [place] Sodium [Moles/Vol] 137 mmol/L 135 - 145 mmol/L [place] Urea nitrogen [Mass/Vol] 8 mg/dL 7 - 25 mg/dL [place] Urea nitrogen/Creatinine [Mass ratio] 15 mg/mg [place] Anion gap [Moles/Vol] 13 mmol/L Normal 7-17 [facility] Comment on above: Performed By: #### U [id number] #### [place] (DEFAULT) [address] [address] Chloride [Moles/Vol] 103 mmol/L Normal 98-108 [facility] Comment on above: Performed By: #### U [id number] #### [place] (DEFAULT) [address] [place] [address] 40081 CO2 [Moles/Vol] 25 mmol/L Normal 21-31 [facility] Comment on above: Performed By: #### U [id number] #### [place] (DEFAULT) [address] [address] Creatinine [Mass/Vol] 0.54 mg/dL Normal 0.50-1.20 [facility] Comment on above: Performed By: #### U [id number] #### [place] (DEFAULT) [address] [address] eGFR, CKD-EPI, Female > Normal >=60 [facility] Comment on above: Result Comment: Repo rted eGFR is based on the CKD-EPI 2020 equation using creatinine, age, and sex. Performed By: #### U [id number] #### [facility] (DEFAULT) [address] [place] [address]5555 Glucose [Mass/Vol] 103 mg/dL Normal Nonfastin -179 mg/dL; Fastin-99 [facility] Comment on above: Performed By: #### U [id number] #### [facility] (DEFAULT) [address] [place] [address] 64688 Osmolality [Osmolality] 285 mosm/kg Normal 278-305 [facility] Comment on above: Performed By: #### U [id number] #### [place] (DEFAULT) [address] [place] [address] 53735 Potassium [Moles/Vol] 3.6 mmol/L Normal 3.5-5.0 [facility] Comment on above: Performed By: #### U [id number] #### [place] (DEFAULT) [address] [place] [address] 03098 Sodium [Moles/Vol] 137 mmol/L Normal 135-145 [facility] Comment on above: Performed By: #### U [id number] #### [place] (DEFAULT) [address] [place] [address] 44558 Urea nitrogen [Mass/Vol] 8 mg/dL Normal 7-25 [facility] Comment on above: Performed By: #### U [id number] #### [place] (DEFAULT) [address] [place] [address] 41272 Urea nitrogen/Creatinine [Mass ratio] 15 mg/mg Normal [facility] Comment on above: Performed By: #### U [id number] #### [place] (DEFAULT) [address] [place] [address] HEAD WITHOUT CONTRASTon 0 08-18-2024 CT [...] left parietal lobe. No new hemorrhage. Normal [facility] CT Head WO contraston 2024 Radiology Study observation (narrative) [facility] RADIOLOGY RADIOLOGY [place] [facility] contrastOrdered B y: Jaden Thomas on 08-18-2024 [place] Work Phone: ECGOrdered By: Naveed whalen 08-18-2024 [place] Work Phone: EEG, ROUTINEon 08-18-2024 [place] EEG, ROUTINEOrdered By: Romero Hooks on 08-18-2024 [place] Work Phone: EXTRA MICROon 08-18-2024 [place] GLUCOSE POCon 08-18-2024 Glucose [Mass/Vol] 108 mg/dL 70 - 179 mg/dL [place] POC Sample Type CAPBL [facility] Glucose [Mass/Vol] 147 mg/dL 70 - 179 mg/dL [place] POC Sample Type CAPBL [facility] Glucose [Mass/Vol] 123 mg/dL 70 - 179 mg/dL [place] [facility] [Mass/Vol] 110 mg/dL 70 - 179 mg/dL [place] POC Sample Type CAPBL [facility] HEMOGLOBIN A1Con 08-18-2024 Average glucose Estimated from glycated hemoglobin (Bld) [Mass/Vol] 128 mg/dL [place] HbA1c (Bld) [Mass fraction] 6.1 % High 4.7 - 5.6 % [place] Interpretation and review of laboratory results Abnormal [facility] LIPID PANEL WITH REFLEX TO M EASURED LDLon 08-18-2024 Cholesterol [Mass/Vol] 159 mg/dL NINF - 200 mg/dL [place] Cholesterol in HDL [Mass/Vol] 48 mg/dL 40 - PINF mg/dL [place] Cholesterol in LDL [Mass/Vol] 83 mg/dL 0 - 99 mg/dL [place] Cholesterol non HDL [Mass/Vol] 111 mg/dL NINF - 130 mg/dL [place] Cholesterol.total/Lakesha sterol in HDL [Mass ratio] 3.3 {ratio} NINF - 4.5 [place] Interpretation and review of laboratory results Normal [place] Triglyceride [Mass/Vol] 138 mg/dL NINF - 150 mg/dL [facility] MAGNESIUMon 08-18-2024 Magnesium [Mass/Vol] 1.5 mg/dL Low 1.6 - 2 .6 mg/dL [place] Magnesium [Mass/Vol] 1.5 mg/dL Low 1.6-2.6 [facility] Comment on above: Performed By: #### U [id number] #### [place] (DEFAULT) [address] [place], [place] [id number] MR Brain WO and W contrast I Von 08-18-2024 RADIOLOGY RADIOLOGY [facility] Radiology Study observation (narrative) [facility] MRI BRAIN WITH AND WITHOUT C ONTRASTon 08-18-2024 MRI BRAIN WITH AND WITHOUT CONTRAST [...] have reviewed and approved this report. Normal [facility] No Panel Informationon 08-18 Interpretation and review of laboratory results Abnormal [facility] PHOSPHATE, INORGANICon 08-18 Interpretation and review of laboratory results Normal [place] Phosphate [Mass/Vol] 4.5 mg/dL 2.2 - 4 .6 mg/dL [place] Phosphorous 4.5 mg/dL Normal 2.2-4.6 [facility] Comment on above: Performed By: #### U [id number] #### [place] (DEFAULT) [address] [address] PT,INR,PTTon 08-18-2024 aPTT Coag (PPP) [Time] 25.6 s [facility] INR Coag (Bld) [Relative time] 1.1 {INR} 0.9 - 1.1 [place] Interpretation and review of laboratory results Normal [place] PT Coag (PPP) [Time] 13.9 s [facility] aPTT Coag (Bld) [Time] 25.6 s Normal 24.0-34.3 [facility] Comment on above: Performed By: #### X M #### [place] (DEFAULT) [address] [place] [address] INR Coag (PPP) [Relative time] 1.1 {INR} Normal 0.9-1.1 [facility] Comment on above: Performed By: #### X M #### [place] (DEFAULT) [address] [place] [address] PT Coag (PPP) [Time] 13.9 s Normal 11.9-14.2 [facility] Comment on above: Performed By: #### X M #### [facility] (DEFAULT) [address] [place] [address] URINALYSIS REFLEX TO CULTURE PERFORMABLEon 08-18-2024 Appearance (U) Clear Clear [facility] Bacteria LM Ql (Urine sed) ABSENT ABSENT [facility] Color (U) Yellow Yellow [facility] Epithelial cells.squamous LM Ql (Urine sed) 0-2/hpf 0-2/hpf, 3-5/hpf = 1+ [place] Glucose Test strip (U) [Mass/Vol] Negative Negative [place] Interpretation and review of laboratory results [facility] Ketones (U) [Mass/Vol] Negative Negative OS [facility] Leukocyte esterase Test strip Ql (U) Negative Negative [place] Nitrite Ql (U) Negative Negative [place] pH (U) 6.5 [pH] 5.0 - 7.0 [facility] Protein (U) [Mass/Vol] Negative Negative OS [facility] RBC (U) [#/Vol] [facility] RBC LM.HPF (Urine sed) [#/Area] 0-2 [facility] Specific gravity (U) [Rel density] 1.011 1.001 - 1.035 [place] Urobilinogen (U) [Mass/Vol] 0.2 E.U./dL 0.2 E.U/dL, 1.0 E.U/dL [facility] WBC LM.HPF (Urine sed) [#/Area] 0 - 5 [facility] Appearance (U) Clear Normal Clear [facility] Comment on above: Order Comment: For i ndwelling catheters, specimen collection is acceptable on catheter day 1 and 2 only. ? Performed By: #### U [id number] #### [facility] (DEFAULT) [address] [place] [address] Bacteria ABSENT Normal ABSENT [facility] Comment on above: Order Comment: For i ndwelling catheters, specimen collection is acceptable on catheter day 1 and 2 only. ? Performed By: #### U [id number] #### [place] (DEFAULT) [address] [place] [address] 98666 Blood Urine Negative Normal Negative [facility] Comment on above: Order Comment: For i ndwelling catheters, specimen collection is acceptable on catheter day 1 and 2 only. ? Performed By: #### U [id number] #### [place] (DEFAULT) [address] [place] [address] 24795 Color (U) Yellow Normal Yellow [facility] Comment on above: Order Comment: For i ndwelling catheters, specimen collection is acceptable on catheter day 1 and 2 only. ? Performed By: #### U [id number] #### [place] (DEFAULT) [address] [place] [address] 32779 Glucose Ql (U) Negative Normal Negative [facility] Comment on above: Order Comment: For i ndwelling catheters, specimen collection is acceptable on catheter day 1 and 2 only. ? Performed By: #### U [id number] #### [place] (DEFAULT) [address] [place] [address] 74432 Ketones Ql (U) Negative Normal Negative [facility] Comment on above: Order Comment: For i ndwelling catheters, specimen collection is acceptable on catheter day 1 and 2 only. ? Performed By: #### U [id number] #### [place] (DEFAULT) [address] [place] [address] 08624 Leukocyte esterase Test strip Ql (U) Negative Normal Negative [facility] Comment on above: Order Comment: For i ndwelling catheters, specimen collection is acceptable on catheter day 1 and 2 only. ? Performed By: #### U [id number] #### [facility] (DEFAULT) [address] [place] [address] Nitrites Urine Negative Normal Negative [facility] Comment on above: Order Comment: For i ndwelling catheters, specimen collection is acceptable on catheter day 1 and 2 only. ? Performed By: #### U [id number] #### [place] (DEFAULT) [address] [place] [address] pH (U) 6.5 [pH] Normal 5.0-7.0 [facility] Comment on above: Order Comment: For i ndwelling catheters, specimen collection is acceptable on catheter day 1 and 2 only. ? Performed By: #### U [id number] #### [place] (DEFAULT) [address] [place] [address] Protein Urine Negative Normal Negative [facility] Comment on above: Order Comment: For i ndwelling catheters, specimen collection is acceptable on catheter day 1 and 2 only. ? Performed By: #### U [id number] #### [place] (DEFAULT) [address] [place] [address] RBC Urine 0-2 Normal 0-2 [facility] Comment on above: Order Comment: For i ndwelling catheters, specimen collection is acceptable on catheter day 1 and 2 only. ? Performed By: #### U [id number] #### [place] (DEFAULT) [address] [place] [address] Specific [place] Urine 1.011 Normal 1.001-1.035 O [facility] Comment on above: Order Comment: For i ndwelling catheters, specimen collection is acceptable on catheter day 1 and 2 only. ? Performed By: #### U [id number] #### [place] (DEFAULT) [address] [place] [address]76 Squamous/Epithelial Cells, Urine 0-2/hpf Normal 0-2/hpf, 3-5/hpf = 1+ [facility] Comment on above: Order Comment: For i ndwelling catheters, specimen collection is acceptable on catheter day 1 and 2 only. ? Performed By: #### U [id number] #### [facility] (DEFAULT) [address] [address] Urobilinogen Urine 0.2 E.U./dL Normal 0.2 E.U/d L, 1.0 E.U/dL [facility] Comment on above: Order Comment: For i ndwelling catheters, specimen collection is acceptable on catheter day 1 and 2 only. ? Performed By: #### U [id number] #### [facility] (DEFAULT) [address] [address] WBC Urine 0 - 5 Normal 0 - 5 [facility] Comment on above: Order Comment: For i ndwelling catheters, specimen collection is acceptable on catheter day 1 and 2 only. ? Performed By: #### U [id number] #### [facility] (DEFAULT) [address] [address] URINE DRUG SCREEN 10Ordered By: Sweetie Helms on 08-18-2024 Amphetamine+Methampheta mine Screen (U) [Mass/Vol] Not detected Cutoff: 500 ng/mL [place] Barbiturates Ql (U) Positive Abnormal Cutoff: 200 ng/mL [place] Benzodiazepines Ql (U) Not detected Cutof f: 200 ng/mL [place] Buprenorphine Ql (U) Not detected Cutoff: 5 ng/mL [place] Cannabinoids Screen Ql (U) Not detected Cutoff: 50 ng/mL [place] Cocaine Ql (U) Not detected Cutoff: 150 ng/mL [place] fentaNYL Ql (U) Not detected Cutoff: 1 ng/mL [place] Interpretation and review of laboratory results Abnormal [place] Methadone Ql (U) Not detected Cutoff: 300 ng/mL [place] Opiates Ql (U) Not detected Cutoff: 300 ng/mL [place] oxyCODONE Ql (U) Not detected Cutoff: 100 ng/mL [place] [facility] URINE DRUG SCREEN 10on 06-11 -2025 Amphetamine/Methampheta mine Not detected Normal Cutoff: 500 ng/mL [facility] Comment on above: Order Comment: For edical purposes only. Positive results are unconfirmed unless otherwise noted. Performed By: #### M STEPHANIE TINOCOM7, IPB #### [facility] (DEFAULT) [address] [address] Barbiturates Positive Abnormal Cutoff: 200 ng/mL [facility] Comment on above: Order Comment: For edical purposes only. Positive results are unconfirmed unless otherwise noted. Performed By: #### Tony TINOCO CHM7, IPB #### [facility] (DEFAULT) [address] [address] Benzodiazepines Not detected Normal Cutoff: 200 ng/mL [facility] Comment on above: Order Comment: For edical purposes only. Positive results are unconfirmed unless otherwise noted. Performed By: #### Tony TINOCO CHM7, IPB #### [facility] (DEFAULT) [address] [address] Buprenorphine Not detected Normal Cutoff: 5 ng/mL [facility] Comment on above: Order Comment: For edical purposes only. Positive results are unconfirmed unless otherwise noted. Performed By: #### Tony TINOCO CHM7, IPB #### [facility] (DEFAULT) [address] [address] Cannabinoids Screen Ql (U) Not detected Normal Cutoff: 50 ng/mL [facility] Comment on above: Order Comment: For edical purposes only. Positive results are unconfirmed unless otherwise noted. Performed By: #### M EARNEST CHM7, IPB #### [facility] (DEFAULT) [address] [address] Cocaine Not detected Normal Cutoff: 150 ng/mL [facility] Comment on above: Order Comment: For edical purposes only. Positive results are unconfirmed unless otherwise noted. Performed By: #### M EARNEST CHM7, IPB #### [facility] (DEFAULT) [address] [address] Fentanyl Not detected Normal Cutoff: 1 ng/mL [facility] Comment on above: Order Comment: For m edical purposes only. Positive results are unconfirmed unless otherwise noted. Performed By: #### M EARNEST CHM7, IPB #### [facility] (DEFAULT) [address] [address] Methadone Not detected Normal Cutoff: 300 ng/mL [facility] Comment on above: Order Comment: For m edical purposes only. Positive results are unconfirmed unless otherwise noted. Performed By: #### M EARNEST CHM7, IPB #### [facility] (DEFAULT) [address] [address] Opiates Not detected Normal Cutoff: 300 ng/mL [facility] Comment on above: Order Comment: For m edical purposes only. Positive results are unconfirmed unless otherwise noted. Performed By: #### M EARNEST CHM7, IPB #### [facility] (DEFAULT) [address] [address] Oxycodone Not detected Normal Cutoff: 100 ng/mL [facility] Comment on above: Order Comment: For edical purposes only. Positive results are unconfirmed unless otherwise noted. Performed By: #### M EARNEST CHM7, IPB #### [facility] (DEFAULT) [address] [address] 12 Lead EKGon 08-17-2024 12 Lead EKG [facility] Cardiovascular Services [address] [place] [address] 12 Lead EKG 08/17/241943 MR#: [id number] Acct: [id number] Name: AMANDA REYNA Rep #: [id number] : 1955 69 From: Chavez Schroeder MD [...] undetermined Abnormal ECG Confirmed by Chavez Schroeder ([id number]), associate editor JOSELUIS MELLO ([id number]) on 08/19/2024 6:08:30 AM Referred By: Confirmed By: Chavez Schroeder 08/19/24 0608 Date Chavez Schroeder MD CC: Dr. Ottoniel Page DO; Dr. Young Edwards MD Signed Normal [facility] Absolute lymphocyte countOrd ered By: Young Edwards on 08-17-2024 Lymphocytes Auto (Unsp spec) [#/Vol] 2.38 10*3/uL 0.83-4.51 [facility] Absolute neutrophil countOrd ered By: Youngkatalina Edwards on 08-17-2024 Neutrophils (Bld) [#/Vol] 6.3 10*3/uL 2.0-7.7 [facility] Activated partial thrombopla stin time (aPTT) in platelet poor plasma by coagulation aOrdered By: Young Edwards on 08-17-2024 aPTT Coag (PPP) [Time] 23.5 s Low 24.1-36.2 [facility] Anion gap in Serum or Plasma Ordered By: Young Edwards on 08-17-2024 Anion gap [Moles/Vol] 11 mmol/L 07-22 [facility] Automated lymphocyte count a s percentage of total leukocytesOrdered By: Young Edwards on 08-17-2024 Lymphocytes/100 WBC Auto (Unsp spec) 24.5 % [facility] BUN/creatinine ratioOrdered By: Young Edwards on 08-17-2024 Urea nitrogen/Creatinine [Mass ratio] 12.1 mg/mg 12-27 [facility] Basic Metabolic Profile (BMP )on 08-17-2024 BUN/CRE 12.1 RATIO Normal 12-27 [facility] Comment on above: Performed By: #### L 501.7466, L500.2500 #### [facility] [address] [place], [address] Calcium [Mass/Vol] 9.7 mg/dL Normal 7.6-11.0 [facility] Comment on above: Performed By: #### L 501.5200, L500.2500 #### [facility] [address] [place], [address] Chloride [Moles/Vol] 99 mmol/L Normal 98-108 [facility] Comment on above: Performed By: #### L 501.5200, L500.2500 #### [facility] [address] [place], [address] CO2 [Moles/Vol] 28.2 mmol/L Normal 21.0-32.0 [facility] Comment on above: Performed By: #### L 501.5200, L500.2500 #### [facility] [address] [place], [address] Creatinine [Mass/Vol] 0.80 mg/dL Normal 0.70-1.20 [facility] Comment on above: Performed By: #### L 501.5200, L500.2500 #### [facility] [address] [place], [address] ECRCL 91.80 ml/min Normal 50-250 [facility] Comment on above: Performed By: #### L 501.5200, L500.2500 #### [facility] [address] [place], [address] GAP 11 Normal 5-15 [facility] Comment on above: Performed By: #### L 501.5200, L500.2500 #### [facility] [address] [place], [address] GFR/1.73 sq M.predicted among non-blacks MDRD (S/P/Bld) [Vol rate/Area] 79 mL/min/{1.73_m2} Normal >60 [facility] Comment on above: Result Comment: mL/m in/1.73m2 CKD-EPI Creatinine Equation (2020) Performed By: #### L 501.5200, L500.2500 #### [facility] [address] [place], [address] Glucose [Mass/Vol] 114 mg/dL High 70-99 [facility] Comment on above: Performed By: #### L 501.5200, L500.2500 #### [facility] [address] [place], [address] Potassium [Moles/Vol] 3.8 mmol/L Normal 3.3-5.1 [facility] Comment on above: Performed By: #### L 501.5200, L500.2500 #### [facility] [address] [place], [address] Sodium [Moles/Vol] 138 mmol/L Normal 133-145 [facility] Comment on above: Performed By: #### L 501.5200, L500.2500 #### [facility] [address] [place], [address] Urea nitrogen [Mass/Vol] 10 mg/dL Normal 4-19 [facility] Comment on above: Performed By: #### L 501.5200, L500.2500 #### [facility] [address] [place], [address] Basophil percentageOrdered B y: Young Edwards on 08-17-2024 Basophils/100 WBC (Bld) 0.7 % 0-1 [facility] Glucoseon 08-17-2024 FINGERSTICK GLU 96 mg/dL Normal 74-106 [facility] Comment on above: Result Comment: LENI GARCÍA OF PATIENT CARE PER NURSING PROTOCOL Performed By: #### L 501.080 ####[facility] [id number] [place], [address] CBC AND ELECTRONIC DIFFon Basophils (Bld) [#/Vol] 0.08 10*3/uL 0.00 - 0.15 K[facility]L [facility] Basophils/100 WBC (Bld) 1 % O [facility] Differential cell count method Nom (Bld) Electronic Differential [facility] Eosinophils (Bld) [#/Vol] 0.18 10*3/uL 0.00 - 0.42 K/uL [facility] Eosinophils/100 WBC (Bld) 2.3 % [place] Erythrocyte distribution width (RBC) [Ratio] 13.6 % 10.8 - 14.9 % [place] Hematocrit (Bld) [Volume fraction] 39.8 % 34.9 - 44.3 % [place] Hemoglobin (Bld) [Mass/Vol] 12.8 g/dL 11.4 - 15.2 g/dL [facility] Immature granulocytes (Bld) [#/Vol] K/uL NINF - 0.08 K/uL [place] Immature granulocytes/100 WBC (Bld) 0.4 % [place] Lymphocytes (Bld) [#/Vol] 1.96 10*3/uL 1.16 - 3.51 K/uL [place] Lymphocytes/100 WBC (Bld) 25 % [place] MCH (RBC) [Entitic mass] 26.6 pg 25.9 - 33.9 pg [place] MCHC (RBC) [Mass/Vol] 32.2 g/dL 31.4 - 35.9 g/dL [place] MCV (RBC) [Entitic vol] 82.7 fL 79.6 - 97.7 fL [place] Monocytes (Bld) [#/Vol] 0.63 10*3/uL 0.22 - 0.87 K/uL [place] Monocytes/100 WBC (Bld) 8 % O [facility] Neutrophils (Bld) [#/Vol] 4.97 10*3/uL 1.64 - 7.28 K/uL [facility] Nucleated RBC/100 WBC (Bld) [Ratio] 0 % NINF [place] Platelet mean volume (Bld) [Entitic vol] 11.3 fL 8.5 - 12.2 fL [place] Platelets (Bld) [#/Vol] 198 10*3/uL 150 - 393 K/uL [place] RBC (Bld) [#/Vol] 4.81 10*6/uL [facility] Segmented neutrophils/100 WBC (Bld) 63.3 % [place] WBC (Bld) [#/Vol] 7.85 10*3/uL 3.99 - 11.19 K/uL [facility] Basophils (Bld) [#/Vol] 0.08 10*3/uL Normal 0.00-0.15 [facility] Comment on above: Performed By: #### JOVITA GOMEZ, IPB #### [place] (DEFAULT) [address] [address] Basophils/100 WBC (Bld) 1.0 % Normal O [facility] Comment on above: Performed By: #### JOVITA GOMEZ, IPB #### [place] (DEFAULT) [address] [place] [address] DIFF STATUS Electronic Differential Normal [facility] Comment on above: Performed By: #### JOVITA GOMEZ, IPB #### [place] (DEFAULT) [address] [place] [address] Eosinophils (Bld) [#/Vol] 0.18 10*3/uL Normal 0.00-0.42 [facility] Comment on above: Performed By: #### JOVITA GOMEZ, IPB #### [place] (DEFAULT) [address] [place] [address] Eosinophils/100 WBC (Bld) 2.3 % Normal [facility] Comment on above: Performed By: #### JOVITA GOMEZ, IPB #### [facility] (DEFAULT) [address] [place] [address] Hematocrit (Bld) [Volume fraction] 39.8 % Normal 34.9-44.3 [facility] Comment on above: Performed By: #### JOVITA GOMEZ, IPB #### [place] (DEFAULT) [address] [place] [address] Hemoglobin (Bld) [Mass/Vol] 12.8 g/dL Normal 11.4-15.2 [facility] Comment on above: Performed By: #### JOVITA GOMEZ, IPB #### [place] (DEFAULT) [address] [place] [address] Immature Grans % 0.4 % Normal [facility] Comment on above: Performed By: #### JOVITA GOMEZ, IPB #### [place] (DEFAULT) [address] [place] [address] Immature Grans Absolute < Normal <=0.08 O [facility] Comment on above: Performed By: #### JOVITA GOMEZ, IPB #### [place] (DEFAULT) [address] [place] [address] Lymphocytes (Bld) [#/Vol] 1.96 10*3/uL Normal 1.16-3.51 [facility] Comment on above: Performed By: #### JOVITA GOMEZ, IPB #### [place] (DEFAULT) [address] [place] [address] Lymphocytes/100 WBC (Bld) 25.0 % Normal [facility] Comment on above: Performed By: #### JOVITA GOMEZ, IPB #### [place] (DEFAULT) [address] [place] [address] MCV (RBC) [Entitic vol] 82.7 fL Normal 79.6-97.7 [facility] Comment on above: Performed By: #### JOVITA GOMEZ, IPB #### [facility] (DEFAULT) [address] [place] [address] Mean Cell Hgb 26.6 pg Normal 25.9-33.9 [facility] Comment on above: Performed By: #### JOVITA GOMEZ, IPB #### [facility] (DEFAULT) [address] [place] [address] Mean Cell Hgb Conc 32.2 g/dL Normal 31.4-35.9 [facility] Comment on above: Performed By: #### JOVITA GOMEZ, IPB #### [place] (DEFAULT) [address] [place] [address] Monocytes (Bld) [#/Vol] 0.63 10*3/uL Normal 0.22-0.87 [facility] Comment on above: Performed By: #### JOVITA GOMEZ, IPB #### [place] (DEFAULT) [address] [place] [address] Monocytes/100 WBC (Bld) 8.0 % Normal O [facility] Comment on above: Performed By: #### JOVITA GOMEZ, IPB #### [place] (DEFAULT) [address] [place] [address] Nucleated RBC 0.0 /100 WBC Normal <=0.2 [facility] Comment on above: Performed By: #### JOVITA GOMEZ, IPB #### [facility] (DEFAULT) [address] [place] [address] Platelet mean volume (Bld) [Entitic vol] 11.3 fL Normal 8.5-12.2 [facility] Comment on above: Performed By: #### JOVITA GOMEZ, IPB #### [facility] (DEFAULT) [address] [place] [address] Platelets (Bld) [#/Vol] 198 10*3/uL Normal 150-393 [facility] Comment on above: Performed By: #### JOVITA GOMEZ, IPB #### [place] (DEFAULT) [address] [place] [address] RBC (Bld) [#/Vol] 4.81 10*6/uL Normal 3.91-5.04 [facility] Comment on above: Performed By: #### JOVITA GOMEZ, IPB #### [place] (DEFAULT) [address] [place] [address] RBC Distribution 13.6 % Normal 10.8-14.9 [facility] Comment on above: Performed By: #### JOVITA GOMEZ, IPB #### [place] (DEFAULT) [address] [place] [address] Segs + Bands Auto 63.3 % Normal [facility] Comment on above: Performed By: #### JOVITA GOMEZ, IPB #### [place] (DEFAULT) [address] [place] [address] Segs + Bands,Absolute Auto 4.97 K/uL Normal 1.64-7.28 [facility] Comment on above: Performed By: #### JOVITA GOMEZ, IPB #### [place] (DEFAULT) [address] [place] [address] WBC (Bld) [#/Vol] 7.85 10*3/uL Normal 3.99-11.19 [facility] Comment on above: Performed By: #### Tony TINOCO CHMJenise, IPB #### [place] (DEFAULT) [address] [place] [address] CBC W/Diff, Automatedon - 0-2024 Absolute Lymph 2.38 X10 3/uL Normal 0.83-4.51 [facility] Comment on above: Performed By: #### L 501.5200, L500.2500 #### [facility] [address] [place], [place], [address] Absolute Neut 6.3 X10 3/uL Normal 2.0-7.7 [facility] Comment on above: Performed By: #### L 501.5200, L500.2500 #### [facility] [address] [place], [address] Basophils/100 WBC (Bld) 0.7 % Normal 0-1 [facility] Comment on above: Performed By: #### L 501.5200, L500.2500 #### [facility] [address] [place], [address] Eosinophils/100 WBC (Bld) 2.7 % Normal 0-5 [facility] Comment on above: Performed By: #### L 501.5200, L500.2500 #### [facility] [address] [place], [address] Erythrocyte distribution width (RBC) [Ratio] 13.7 % Normal 11.6-14.6 [facility] Comment on above: Performed By: #### L 501.5200, L500.2500 #### [facility] [address] [place], [address] Hematocrit (Bld) [Volume fraction] 45.4 % Normal 37-47 [facility] Comment on above: Performed By: #### L 501.5200, L500.2500 #### [facility] [address] [place], [address] Hemoglobin (Bld) [Mass/Vol] 14.6 g/dL Normal 12.0-15.0 [facility] Comment on above: Performed By: #### L 501.5200, L500.2500 #### [facility] [address] [place], [address] IG% 0.300 Normal 0.0-0.9 [facility] Comment on above: Result Comment: IG% - Immature Granulocytes (promyelocytes, myelocytes and metamyelocytes) > 1% indicates that a LEFT SHIFT is Present. Performed By: #### L 501.5200, L500.2500 #### [facility] [address] [place], [address] Lymphocytes/100 WBC (Bld) 24.5 % Normal 19-41 [facility] Comment on above: Performed By: #### L 501.5200, L500.2500 #### [facility] [address] [place], [address] MCH (RBC) [Entitic mass] 26.8 pg Low 27.0-32.0 [facility] Comment on above: Performed By: #### L 501.5200, L500.2500 #### [facility] [address] [place], [address] MCHC (RBC) [Mass/Vol] 32.2 g/dL Normal 32-36 [facility] Comment on above: Performed By: #### L 501.5200, L500.2500 #### [facility] [address] [place], [address] MCV (RBC) [Entitic vol] 83.5 fL Normal 81-99 [facility] Comment on above: Performed By: #### L 501.5200, L500.2500 #### [facility] [address] [place], [address] Monocytes/100 WBC (Bld) 7.0 % Normal 0-10 [facility] Comment on above: Performed By: #### L 501.5200, L500.2500 #### [facility] [address] [place], [address] Neutrophils/100 WBC (Bld) 64.8 % Normal 47-70 [facility] Comment on above: Performed By: #### L 501.5200, L500.2500 #### [facility] [address] [place], [address] Nucleated RBC (Bld) [#/Vol] 0 10*3/uL Normal 0-5 [facility] Comment on above: Performed By: #### L 501.5200, L500.2500 #### [facility] [address] [place], [address] Platelet mean volume (Bld) [Entitic vol] 11.2 fL Normal 6.2-12.0 [facility] Comment on above: Performed By: #### L 501.5200, L500.2500 #### [facility] [address] [place], [address] Platelets (Bld) [#/Vol] 248 10*3/uL Normal 150-450 [facility] Comment on above: Performed By: #### L 501.5200, L500.2500 #### [facility] [address] [place], [address] RBC (Bld) [#/Vol] 5.44 10*6/uL High 4.2-5.4 [facility] Comment on above: Performed By: #### L 501.5200, L500.2500 #### [facility] [address] [place], [address] RDW SD 41.1 fl Normal 35.1-43.9 [facility] Comment on above: Performed By: #### L 501.5200, L500.2500 #### [facility] [address] [place], [address] WBC (Bld) [#/Vol] 9.7 10*3/uL Normal 4.4-11.0 [facility] Comment on above: Performed By: #### L 501.5200, L500.2500 #### [facility] [address] [place], [address] CHM 7 - EDon 08-17-2024 Anion gap [Moles/Vol] 11 mmol/L 7 - 17 mmol/L [place] Chloride [Moles/Vol] 99 mmol/L 98 - 10 8 mmol/L [place] CO2 [Moles/Vol] 29 mmol/L 21 - 31 mmol/L [place] Creatinine [Mass/Vol] 0.64 mg/dL 0.50 - 1.20 mg/dL [place] eGFR, CKD-EPI, Female - PINF [place] Glucose [Mass/Vol] 109 mg/dL 70 - 179 mg/dL [place] Osmolality Calc [Osmolality] 282 [place] Potassium [Moles/Vol] 3.6 mmol/L 3.5 - 5.0 mmol/L [place] Sodium [Moles/Vol] 135 mmol/L 135 - 145 mmol/L [place] Urea nitrogen [Mass/Vol] 10 mg/dL 7 - 25 mg/dL [place] Urea nitrogen/Creatinine [Mass ratio] 16 mg/mg [place] Anion gap [Moles/Vol] 11 mmol/L Normal 7-17 [facility] Comment on above: Performed By: #### S URGP #### [place] (DEFAULT) [address] [place] [address] Chloride [Moles/Vol] 99 mmol/L Normal 98-108 [facility] Comment on above: Performed By: #### S URGP #### [place] (DEFAULT) [address] [place] [address] CO2 [Moles/Vol] 29 mmol/L Normal 21-31 [facility] Comment on above: Performed By: #### S URGP #### [place] (DEFAULT) [address] [place] [address] Creatinine [Mass/Vol] 0.64 mg/dL Normal 0.50-1.20 [facility] Comment on above: Performed By: #### S URGP #### [place] (DEFAULT) [address] [place] [address] eGFR, CKD-EPI, Female > Normal >=60 [facility] Comment on above: Result Comment: Repo rted eGFR is based on the CKD-EPI 2020 equation using creatinine, age, and sex. Performed By: #### S URGP #### [place] (DEFAULT) [address] [place] [address] Glucose [Mass/Vol] 109 mg/dL Normal Nonfastin -179 mg/dL; Fastin-99 [facility] Comment on above: Performed By: #### S URGP #### [facility] (DEFAULT) [address] [place] [address] Osmolality [Osmolality] 282 mosm/kg Normal 278-305 [facility] Comment on above: Performed By: #### S URGP #### [place] (DEFAULT) [address] [place] [address] Potassium [Moles/Vol] 3.6 mmol/L Normal 3.5-5.0 [facility] Comment on above: Performed By: #### S URGP #### [place] (DEFAULT) [address] [place] [address] Sodium [Moles/Vol] 135 mmol/L Normal 135-145 [facility] Comment on above: Performed By: #### S URGP #### [place] (DEFAULT) [address] [place] [address] Urea nitrogen [Mass/Vol] 10 mg/dL Normal 7-25 [facility] Comment on above: Performed By: #### S URGP #### [place] (DEFAULT) [address] [place] [address] Urea nitrogen/Creatinine [Mass ratio] 16 mg/mg Normal [facility] Comment on above: Performed By: #### S URGP #### [place] (DEFAULT) [address] [place] [address] Brain for per fusion and CT angiogram Head vessels WO and W contrast Luis Alberto 08-17-2024 RADIOLOGY RADIOLOGY [facility] Radiology Study observation (narrative) [facility] CT Head limitedon 08-17-2024 RADIOLOGY RADIOLOGY [place] Radiology Study observation (narrative) [facility] CT Head limitedOrdered By: Naomi Luque on 08-17-2024 [place] Work Phone: CT STROKE ANGIO BRAIN/NECKon 08-17-2024 CT STROKE [...] normal in caliber. 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 VERTEBRAL ARTERIES: Patent and normal [...] have reviewed and approved this report. Normal [facility] CT STROKE HEAD-STROKE ALERT ONLYon 08-17-2024 [...] have reviewed and approved this report. Normal [facility] Carbon dioxide, total [Moles /volume] in Central venous bloodOrdered By: Young Edwards on 08-17-2024 CO2 [Moles/Vol] 28.2 mmol/L 21.0-32.0 [facility] Chloride assayOrdered By: Jordon Edwards on 08-17-2024 Chloride [Moles/Vol] 99 mmol/L 98-108 [facility] [place] Emergency Department Summary on 08-17-2024 Emergency Department Summary [facility] Medical Records Department [address] [place] [address] Emergency Department Summary 08/17/24 MR#: [id number] Acct: [id number] Name: AMANDA REYNA Rep #: [id number] : 1955 69 From: Young Edwards MD PCP: Dr. Ottoniel Page, DO Status:DEP ER Location: ED HPI History [...] presents with right-sided paresthesia. She contacted her principal scientist Dr. Henok Schroeder who instructed her to [...] (more content not included)... Normal [facility] Eosinophil percentageOrdered By: Young Edwards on 08-17-2024 Eosinophils/100 WBC (Bld) 2.7 % 0-5 [facility] Erythrocyte distribution wid th ratioOrdered By: Young Edwards on 08-17-2024 Erythrocyte distribution width (RBC) [Ratio] 13.7 % 11.6-14.6 [facility] Erythrocyte distribution wid th standard deviationOrdered By: Young Edwards on 08-17-2024 Erythrocyte distribution width (RBC) [Ratio] 41.1 fl 35.1-43.9 [facility] GLUCOSE POCon 08-17-2024 Glucose [Mass/Vol] 99 mg/dL 70 - 179 mg/dL [place] POC Sample Type CAPBL [facility] Glomerular filtration rate ( GFR) estimation/1.73 sq m using serum, plasma, or whole bOrdered By: Young Edwards on 08-17-2024 GFR/1.73 sq M.predicted among non-blacks MDRD (S/P/Bld) [Vol rate/Area] 79 mL/min/{1.73_m2} >60 [facility] Comment on above: mL/min/1.73m2 CKD-EP I Creatinine Equation (2020) [facility] deOrdered By: Young Edwards on 08-17-2024 Glucose [Mass/Vol] 96 mg/dL 74-106 [facility] Comment on above: MANAGEMENT OF PATIEN T CARE PER NURSING PROTOCOL HEMOGLOBIN A1Con 08-17-2024 Glucose [Mass/Vol] 128 mg/dL Normal [facility] Comment on above: Performed By: #### M JOVITA TINOCO, IPB #### [facility] (DEFAULT) [address] [place] [address] Hemoglobin A1C HPLC 6.1 % High 4.7-5.6 [facility] Comment on above: Performed By: #### JOVITA GOMEZ, IPB #### [place] (DEFAULT) [address] [place] [address] HEPATIC FUNCTION PANELon Albumin [Mass/Vol] 3.4 g/dL Low 3.5 - 5.0 g/dL [place] ALP [Catalytic activity/Vol] 46 U/L 32 - 126 U/L [place] ALT [Catalytic activity/Vol] 16 U/L 9 - 48 U/L [place] AST [Catalytic activity/Vol] 17 U/L 10 - 39 U/L [place] Bilirubin [Mass/Vol] 0.4 mg/dL [facility] 1.[facility] mg/dL [place] Bilirubin.direct [Mass/Vol] 0.1 mg/dL [facility] - 0.3 mg/dL [place] Interpretation and review of laboratory results Abnormal [place] Protein [Mass/Vol] 5.7 g/dL Low 6.4 - 8.3 g/dL [place] Albumin [Mass/Vol] 3.4 g/dL Low 3.5-5.0 [facility] Comment on above: Performed By: #### S URGP #### [place] (DEFAULT) [address] [place] [address] ALP [Catalytic activity/Vol] 46 U/L Normal 32-126 [facility] Comment on above: Performed By: #### S URGP #### [place] (DEFAULT) [address] [address] ALT [Catalytic activity/Vol] 16 U/L Normal 9-48 [facility] Comment on above: Performed By: #### S URGP #### [place] (DEFAULT) [address] [address] AST [Catalytic activity/Vol] 17 U/L Normal 10-39 [facility] Comment on above: Performed By: #### S URGP #### [place] (DEFAULT) [address] [address] Bilirubin [Mass/Vol] 0.4 mg/dL Normal <1.5 [facility] Comment on above: Performed By: #### S URGP #### [place] (DEFAULT) [address] [address] Bilirubin.indirect [Mass/Vol] 0.1 mg/dL Normal <0.3 [facility] Comment on above: Performed By: #### S URGP #### [place] (DEFAULT) [address] [address] Protein [Mass/Vol] 5.7 g/dL Low 6.4-8.3 [facility] Comment on above: Performed By: #### S URGP #### [place] (DEFAULT) [address] [address] HIGH SENSITIVITY TROPONIN I - SINGLE ORDERon 08-17-2024 Interpretation and review of laboratory results Normal [place] Troponin I.cardiac High sensitivity method [Mass/Vol] ng/L NINF - 34 ng/L [facility] hs-Troponin I <3 Normal <34 [facility] Comment on above: Order Comment: Acute Coronary Syndrome (ACS): Initial Evaluation and Management:[email or web address] [email or web address]%[email or web address] Performed By: #### S URGP #### [facility] [address] [place] [address] Hematocrit Auto (Bld) [Volum e fraction]Ordered By: Youngkatalina Edwards on 08-17-2024 Hematocrit (Bld) [Volume fraction] 45.4 % 37-47 [facility] Hemoglobin measurementOrdere d By: Youngkatalina Edwards on 08-17-2024 Hemoglobin (Bld) [Mass/Vol] 14.6 g/dL 12.0-15.0 [facility] Immature granulocytes/100 WB C Auto (Bld)Ordered By: [facility] on 08-17-2024 Immature granulocytes/100 WBC (Bld) 0.300 % 0.0-0.9 [facility] Comment on above: IG% - Immature Granu locytes (promyelocytes, myelocytes and metamyelocytes) > 1% indicates that a LEFT SHIFT is Present. International normalized rat io (INR) calculationOrdered By: Young Edwards on 08-17-2024 INR Coag (Bld) [Relative time] 1.0 {INR} [facility] L499.0042on 08-17-2024 Trop T High Sen Normal <=14 [facility] Comment on above: Result Comment: Canc elled via OM: Order cancelled - Patient discharged Performed By: #### L 499.0042 ####[facility] [address] [place], [address] L499.0043on 08-17-2024 Trop T High Sen Normal <=14 [facility] Comment on above: Result Comment: Canc elled via OM: Order cancelled - Patient discharged Performed By: #### L 501.5200, L500.2500 #### [facility] Laboratory [address] [place], [address] L501.4021on 08-17-2024 Trop T High Sen 17 ng/L High <=14 [facility] Comment on above: Performed By: #### L 501.5200, L500.2500 #### [facility] Laboratory [place], [address] LIPID PANEL WITH REFLEX TO Tony PUCKETT LDLon 08-17-2024 Calculated LDL Cholesterol 83 mg/dL Normal 0-99 [facility] Comment on above: Result Comment: [<10 0 mg/dL: Optimal] [100-129 mg/dL: Near Optimal] [130-159 mg/dL: Borderline High] [160-189 mg/dL: High] [>189 mg/dL: Very High] Performed By: #### U R #### [place] (DEFAULT) [address] [address] Cholesterol [Mass/Vol] 159 mg/dL Normal <200 [facility] Comment on above: Result Comment: [<20 0 mg/dL: Desirable] [200-239 mg/dL: Borderline High] [>239 mg/dL: High] Performed By: #### U R #### [place] (DEFAULT) [address] [address] Cholesterol in HDL [Mass/Vol] 48 mg/dL Normal >=40 [facility] Comment on above: Result Comment: [<40 mg/dL: Low (High Risk)] [>59 mg/dL: High (Low Risk)] Performed By: #### U R #### [place] (DEFAULT) [address] [address] Non HDL Cholesterol 111 mg/dL Normal <130 [facility] Comment on above: Performed By: #### U R #### [place] (DEFAULT) [address] [address] Total Cholesterol/HDL Ratio 3.3 Normal <4.5 [facility] Comment on above: Performed By: #### U R #### [place] (DEFAULT) [address] [place] [address] Triglyceride [Mass/Vol] 138 mg/dL Normal <150 [facility] Comment on above: Result Comment: [<15 0 mg/dL: Desirable] [150-199 mg/dL: Borderline] [200-499 mg/dL: High] [>500 mg/dL: Very High] Performed By: #### U R #### [place] (DEFAULT) [address] [place] [address] MCV (mean corpuscular volume ) determinationOrdered By: Youngkatalina Edwards on 08-17-2024 MCV (RBC) [Entitic vol] 83.5 fL 81-99 [facility] Mean corpuscular hemoglobin (MCH) determinationOrdered By: [facility] on 08-17-2024 MCH (RBC) [Entitic mass] 26.8 pg Low 27.0-32.0 [facility] Mean corpuscular hemoglobin concentration (MCHC) determinationOrdered By: [facility] on 08-17-2024 MCHC (RBC) [Mass/Vol] 32.2 g/dL 32-36 [facility] Mean platelet volume determi nationOrdered By: [facility] on 08-17-2024 Platelet mean volume (Bld) [Entitic vol] 11.2 fL 6.2-12.0 [facility] Monocyte percentageOrdered B y: [facility] Edwards on 08-17-2024 Monocytes/100 WBC (Bld) 7.0 % 0-10 [facility] Neutrophil percentageOrdered By: [facility] on 08-17-2024 Neutrophils/100 WBC (Bld) 64.8 % 47-70 [facility] No Panel Informationon 08-17 [place] Nucleated red blood cell per centageOrdered By: Youngkatalina Edwards on 08-17-2024 Nucleated RBC/100 WBC (Bld) [Ratio] 0 % 0-5 [facility] PTINR-STROKEon 08-17-2024 INR Coag (Bld) [Relative time] 1 {INR} 0.9 - 1.1 [place] Interpretation and review of laboratory results Normal [place] PT Coag (PPP) [Time] 13.5 s [facility] INR Coag (PPP) [Relative time] 1.0 {INR} Normal 0.9-1.1 [facility] Comment on above: Performed By: #### JOVITA GOMEZ, IPB #### [place] (DEFAULT) [address] [place] [address] PT Coag (PPP) [Time] 13.5 s Normal 11.9-14.2 [facility] Comment on above: Performed By: #### JOVITA GOMEZ, IPB #### [place] (DEFAULT) [address] [place] [address] PTTon 08-17-2024 aPTT Coag (PPP) [Time] 25.1 s [facility] Interpretation and review of laboratory results Normal [facility] aPTT Coag (Bld) [Time] 25.1 s Normal 24.0-34.3 [facility] Comment on above: Performed By: #### JOVITA GOMEZ, IPB #### [place] (DEFAULT) [address] [place] [address] Partial Thromboplast Timeon 08-17-2024 aPTT Coag (Bld) [Time] 23.5 s Low 24.1-36.2 [facility] Comment on above: Performed By: #### L 501.5200, L500.2500 #### [facility] Laboratory [address] [place] [address], [id number] Platelet countOrdered By: Jordon Edwards on 08-17-2024 Platelets (Bld) [#/Vol] 248 10*3/uL 150-450 [facility] Potassium measurement (mass/ volume)Ordered By: Young Edwards on 08-17-2024 Potassium (Unsp spec) [Mass/Vol] 3.8 mmol/L 3.3-5.1 [facility] Prothrombin Time w/INRon INR Coag (PPP) [Relative time] 1.0 {INR} Normal [facility] Comment on above: Performed By: #### L 501.5200, L500.2500 #### [facility] Laboratory [address] [place], [address] PT Coag (PPP) [Time] 12.8 s Normal 11.7-14.9 [facility] [place] Comment on above: Performed By: #### L 501.5200, L500.2500 #### [facility] [address] [place], [address] Prothrombin timeOrdered By: Young Edwards on 08-17-2024 PT Coag (PPP) [Time] 12.8 s 11.7-14.9 [facility] RBC Auto (Bld) [#/Vol]Ordere d By: Young Edwards on 08-17-2024 RBC (Bld) [#/Vol] 5.44 10*6/uL High 4.2-5.4 [facility] STROKE Brain/Head without Co nton 08-17-2024 STROKE Brain/Head without Cont [facility] Imaging Services [address] [place] [address] STROKE Brain/Head without Cont MR#: [id number] Acct: [id number] Name: AMANDA REYNA Rep #: [id number] : 1955 F 69 From: Naveed Howe MD PCP: Dr. Ottoniel Page, DO Status: REG ER Study: STROKE Brain/Head without Cont Date of Exam: 0 08/17/24 Exam# [id number] Ordering Dr: Young Edwards MD PROCEDURE: STROKE [...] Reading Location: IFEANYI CC: Dr. Ottoniel Page ; Dr. Young Edwards MD Automatic [employer] Cutting Machine Operator: Signed Normal [facility] Serum creatinine measurement (mass/volume)Ordered By: Young Edwards on 08-17-2024 Creatinine [Mass/Vol] 0.80 mg/dL 0.70-1.20 [facility] Serum glucose measurement (m ass/volume)Ordered By: Young Edwards on 08-17-2024 Glucose [Mass/Vol] 114 mg/dL High 70-99 [facility] Serum or plasma calcium [place] urement (mass/volume)Ordered By: Young Edwards on 08-17-2024 Calcium [Mass/Vol] 9.7 mg/dL 7.6-11.0 [facility] Serum or plasma urea nitroge n measurement (mass/volume)Ordered By: Young Edwards on 08-17-2024 Urea nitrogen [Mass/Vol] 10 mg/dL 4-19 [facility] Sodium levelOrdered By: Young Edwards on 08-17-2024 Sodium [Moles/Vol] 138 mmol/L 133-145 [facility] TYPE AND SCREENon 08-17-2024 ABO/RH(D) TYPE Positive [place] Specimen Expiration 08/20/2024 03:16 [facility] ABO/RH(D) TYPE Positive Normal [facility] Comment on above: Performed By: #### X M #### [facility] (DEFAULT) [address] [place] [address] Specimen Expiration 08/20/2024 03:16 Normal [facility] Comment on above: Performed By: #### X M #### [facility] (DEFAULT) [address] [place] [address] Troponin T.cardiac [Mass/vol ume] in Serum or Plasma by High sensitivity methodOrdered By: Young Edwards on 08-17-2024 Troponin T.cardiac High sensitivity method [Mass/Vol] 17 ng/L High <14 [facility] White blood cell (WBC) count Ordered By: Young Edwards on 08-17-2024 WBC (Bld) [#/Vol] 9.7 10*3/uL 4.4-11.0 [facility] 12 Lead EKGon 08-15-2024 12 Lead EKG [facility] Cardiovascular Services [address] [place] [address] 12 Lead EKG 08/15/24 0209 MR#: [id number] Acct: [id number] Name: AMANDA REYNA Rep #: [id number] : 1955 69 From: Chavez Schroeder MD Attending Dr: Status: DEP ER Ordering Dr: Hugh Hooker DO Date: 08/15/24 Location: ED Sex: F [...] rhythm Normal ECG Confirmed by Chavez Schroeder ([id number]), associate editor ATUL MARINO ([id number]) on 08/16/2024 9:34:09 AM Referred By: Confirmed By: Chavez Schroeder 08/16/24 0934 Date Chavez Schroeder MD CC: Dr. Ottoniel Page DO; Dr. Hugh Hooker DO Signed Normal [facility] 12 Lead EKG [facility] Cardiovascular Services [address] [place] [address] 12 Lead EKG 08/15/24 0148 MR#: [id number] Acct: [id number] Name: AMANDA REYNA Rep #: [id number] : 1955 69 From: Chavez Schroeder MD Attending Dr: Status: DEP ER Ordering Dr: Hugh Hooker DO Date: 08/15/24 Location: ED Sex: F [...] undetermined Abnormal ECG Confirmed by Chavez Schroeder ([id number]), associate editor ATUL MARINO ([id number]) on 08/16/2024 9:33:58 AM Referred By: Confirmed By: Chavez Schroeder 08/16/24 0934 Date Chavez Schroeder MD CC: Dr. Ottoniel Page DO; Dr. Hugh Hooker DO Signed Normal [facility] Absolute lymphocyte countOrd ered By: Hugh Hooker on 08-15-2024 Lymphocytes Auto (Unsp spec) [#/Vol] 2.33 10*3/uL 0.83-4.51 [facility] Absolute neutrophil countOrd ered By: Hugh Hooker on 08-15-2024 Neutrophils (Bld) [#/Vol] 4.4 10*3/uL 2.0-7.7 [facility] Activated partial thrombopla stin time (aPTT) in platelet poor plasma by coagulation aOrdered By: Hugh Hooker on 08-15-2024 aPTT Coag (PPP) [Time] 22.6 s Low 24.1-36.2 [facility] Anion gap in Serum or Plasma Ordered By: Hugh Hooker on 08-15-2024 Anion gap [Moles/Vol] 11 mmol/L 5-15 [facility] Automated lymphocyte count a s percentage of total leukocytesOrdered By: Hugh Hooker on 08-15-2024 Lymphocytes/100 WBC Auto (Unsp spec) 29.9 % - [facility] BUN/creatinine ratioOrdered By: Hugh Hooker on 08-15-2024 Urea nitrogen/Creatinine [Mass ratio] 12.8 mg/mg - [facility] Basic Metabolic Profile (BMP )on 08-15-2024 BUN/CRE 12.8 RATIO Normal - [facility] Comment on above: Performed By: #### L 501.5200, L500.2500 #### [facility] Laboratory [address] [place], [address] Calcium [Mass/Vol] 9.1 mg/dL Normal 7.6-11.0 [facility] Comment on above: Performed By: #### L 501.5200, L500.2500 #### [facility] [address] [place], [address] Chloride [Moles/Vol] 100 mmol/L Normal 98-108 [facility] [place] Comment on above: Performed By: #### L 501.5200, L500.2500 #### [facility] [address] [place], [address] CO2 [Moles/Vol] 27.8 mmol/L Normal 21.0-32.0 [facility] Comment on above: Performed By: #### L 501.5200, L500.2500 #### [facility] Laboratory [address] [place], [address] Creatinine [Mass/Vol] 0.70 mg/dL Normal 0.70-1.20 [facility] Comment on above: Performed By: #### L 501.5200, L500.2500 #### [facility] [address] [place], [address] ECRCL 92.81 ml/min Normal 50-250 [facility] Comment on above: Performed By: #### L 501.5200, L500.2500 #### [facility] Laboratory [address] [place], [address] GAP 11 Normal 5-15 [facility] Comment on above: Performed By: #### L 501.5200, L500.2500 #### [facility] [address] [place], [address] GFR/1.73 sq M.predicted among non-blacks MDRD (S/P/Bld) [Vol rate/Area] 94 mL/min/{1.73_m2} Normal >60 [facility] Comment on above: Result Comment: mL/m in/1.73m2 CKD-EPI Creatinine Equation (2020) Performed By: #### L 501.5200, L500.2500 #### [facility] Laboratory [address] [place], [address] Glucose [Mass/Vol] 138 mg/dL High 70-99 [facility] Comment on above: Performed By: #### L 501.5200, L500.2500 #### [facility] [address] [place], [address] Potassium [Moles/Vol] 3.6 mmol/L Normal 3.3-5.1 [facility] Comment on above: Performed By: #### L 501.5200, L500.2500 #### [facility] [address] [place], [address] Sodium [Moles/Vol] 139 mmol/L Normal 133-145 [facility] Comment on above: Performed By: #### L 501.5200, L500.2500 #### [facility] [address] [place], [address] Urea nitrogen [Mass/Vol] 9 mg/dL Normal 4-19 [facility] Comment on above: Performed By: #### L 501.5200, L500.2500 #### [facility] Laboratory [address] [place], [address] Basophil percentageOrdered B y: Hugh Hooker on 08-15-2024 Basophils/100 WBC (Bld) 1.0 % 0-1 [facility] CBC W/Diff, Automatedon Absolute Lymph 2.33 X10 3/uL Normal 0.83-4.51 [facility] Comment on above: Performed By: #### L 501.5200, L500.2500 #### [facility] Laboratory [address] [place], [address] Absolute Neut 4.4 X10 3/uL Normal 2.0-7.7 [facility] Comment on above: Performed By: #### L 501.5200, L500.2500 #### [facility] [address] [place], [address] Basophils/100 WBC (Bld) 1.0 % Normal 0-1 [facility] Comment on above: Performed By: #### L 501.5200, L500.2500 #### [facility] [address] [place], [address] Eosinophils/100 WBC (Bld) 3.3 % Normal 0-5 [facility] Comment on above: Performed By: #### L 501.5200, L500.2500 #### [facility] [address] [place], [address] Erythrocyte distribution width (RBC) [Ratio] 13.7 % Normal 11.6-14.6 [facility] Comment on above: Performed By: #### L 501.5200, L500.2500 #### [facility] [address] [place], [address] Hematocrit (Bld) [Volume fraction] 46.5 % Normal 37-47 [facility] Comment on above: Performed By: #### L 501.5200, L500.2500 #### [facility] [address] [place], [address] Hemoglobin (Bld) [Mass/Vol] 14.8 g/dL Normal 12.0-15.0 [facility] Comment on above: Performed By: #### L 501.5200, L500.2500 #### [facility] [address] [place], [address] IG% 0.300 Normal 0.0-0.9 [facility] Comment on above: Result Comment: IG% - Immature Granulocytes (promyelocytes, myelocytes and metamyelocytes) > 1% indicates that a LEFT SHIFT is Present. Performed By: #### L 501.5200, L500.2500 #### [facility] [address] [place], [address] Lymphocytes/100 WBC (Bld) 29.9 % Normal 19-41 [facility] Comment on above: Performed By: #### L 501.5200, L500.2500 #### [facility] [address] [place], [address] MCH (RBC) [Entitic mass] 26.8 pg Low 27.0-32.0 [facility] Comment on above: Performed By: #### L 501.5200, L500.2500 #### [facility] [address] [place], [address] MCHC (RBC) [Mass/Vol] 31.8 g/dL Low 32-36 [facility] Comment on above: Performed By: #### L 501.5200, L500.2500 #### [facility] [address] [place], [address] MCV (RBC) [Entitic vol] 84.1 fL Normal 81-99 [facility] Comment on above: Performed By: #### L 501.5200, L500.2500 #### [facility] [address] [place], [address] Monocytes/100 WBC (Bld) 8.6 % Normal 0-10 [facility] Comment on above: Performed By: #### L 501.5200, L500.2500 #### [facility] [address] [place], [address] Neutrophils/100 WBC (Bld) 56.9 % Normal 47-70 [facility] Comment on above: Performed By: #### L 501.5200, L500.2500 #### [facility] [address] [place], [address] Nucleated RBC (Bld) [#/Vol] 0 10*3/uL Normal 0-5 [facility] Comment on above: Performed By: #### L 501.5200, L500.2500 #### [facility] [address] [place], [address] Platelet mean volume (Bld) [Entitic vol] 11.1 fL Normal 6.2-12.0 [facility] Comment on above: Performed By: #### L 501.5200, L500.2500 #### [facility] [address] [place], [address] Platelets (Bld) [#/Vol] 238 10*3/uL Normal 150-450 [facility] Comment on above: Performed By: #### L 501.5200, L500.2500 #### [facility] [address] [place], [address] RBC (Bld) [#/Vol] 5.53 10*6/uL High 4.2-5.4 [facility] Comment on above: Performed By: #### L 501.5200, L500.2500 #### [facility] [address] [place], [address] RDW SD 41.9 fl Normal 35.1-43.9 [facility] Comment on above: Performed By: #### L 501.5200, L500.2500 #### [facility] [address] [place], [address] WBC (Bld) [#/Vol] 7.8 10*3/uL Normal 4.4-11.0 [facility] Comment on above: Performed By: #### L 501.5200, L500.2500 #### [facility] [address] [place], [address] Carbon dioxide, total [Moles /volume] in Central venous bloodOrdered By: Hugh Hooker on 08-15-2024 CO2 [Moles/Vol] 27.8 mmol/L 21.0-32.0 [facility] Chloride assayOrdered By: Peterson Hooker on 08-15-2024 Chloride [Moles/Vol] 100 mmol/L 98-108 [facility] Emergency Department Summary on 08-15-2024 Emergency Department Summary [facility] Medical Records Department [address] [place] [address] Emergency Department Summary 08/15/24 MR#: [id number] Acct: [id number] Name: AMANDA REYNA Rep #: [id number] : 1955 69 From: Hugh Gayle PCP: Dr. Ottoniel Page, Status:REG ER Location: ED HPI History of Present Illness Chief Complaint: Palpitations Informant: patient Narrative Narrative: Palpitations recurrent A-fib waking her at 11:30 PM 2.5 hours ago. Went to bed feeling fine. History of paroxysmal A-fib followed by principal scientist Dr. Keane. She states she had a brain tumor craniotomy 2003 therefore she election was not to do anticoagulants. She has no recent illness no cough no recent vomiting or diarrhea. No coronary disease history. She is on sotalol she took extra half dose of sotalol at midnight as treatment plans with her principal scientist. She still feels symptoms. Prior similar symptoms: Yes PFSH PFS Medical History History of steroid therapy History [...] (more content not included)... Normal [facility] Eosinophil percentageOrdered By: Hugh Hooker on 08-15-2024 Eosinophils/100 WBC (Bld) 3.3 % 0-5 [facility] Erythrocyte distribution wid th ratioOrdered By: Hugh Hooker on 08-15-2024 Erythrocyte distribution width (RBC) [Ratio] 13.7 % 11.6-14.6 [facility] Erythrocyte distribution wid th standard deviationOrdered By: Hugh Hooker on 08-15-2024 Erythrocyte distribution width (RBC) [Ratio] 41.9 fl 35.1-43.9 [facility] Glomerular filtration rate ( GFR) estimation/1.73 sq m using serum, plasma, or whole bOrdered By: Hugh Hooker on 08-15-2024 GFR/1.73 sq M.predicted among non-blacks MDRD (S/P/Bld) [Vol rate/Area] 94 mL/min/{1.73_m2} >60 [facility] Comment on above: mL/min/1.73m2 CKD-EP I Creatinine Equation (2020) Hematocrit Auto (Bld) [Volum e fraction]Ordered By: Hugh Hooker on 08-15-2024 Hematocrit (Bld) [Volume fraction] 46.5 % 37-47 [facility] Hemoglobin measurementOrdere d By: Hugh Hooker on 08-15-2024 Hemoglobin (Bld) [Mass/Vol] 14.8 g/dL 12.0-15.0 [facility] Immature granulocytes/100 WB C Auto (Bld)Ordered By: Hugh Hooker on 08-15-2024 Immature granulocytes/100 WBC (Bld) 0.300 % 0.0-0.9 [facility] Comment on above: IG% - Immature Granu locytes (promyelocytes, myelocytes and metamyelocytes) > 1% indicates that a LEFT SHIFT is Present. International normalized rat io (INR) calculationOrdered By: Hugh Hooker on 08-15-2024 INR Coag (Bld) [Relative time] 0.9 {INR} [facility] MCV (mean corpuscular volume ) determinationOrdered By: Hugh Hooker on 08-15-2024 MCV (RBC) [Entitic vol] 84.1 fL 81-99 [facility] Mean corpuscular hemoglobin (MCH) determinationOrdered By: Hugh Hooker 08-15-2024 MCH (RBC) [Entitic mass] 26.8 pg Low 27.0-32.0 [facility] Mean corpuscular hemoglobin concentration (MCHC) determinationOrdered By: Hugh Hooker 08-15-2024 MCHC (RBC) [Mass/Vol] 31.8 g/dL Low 32-36 [facility] Mean platelet volume determi nationOrdered By: Hugh Jess on 08-15-2024 Platelet mean volume (Bld) [Entitic vol] 11.1 fL 6.2-12.0 [facility] Monocyte percentageOrdered B y: Hugh Hooker on 08-15-2024 Monocytes/100 WBC (Bld) 8.6 % 0-10 [facility] Neutrophil percentageOrdered By: Hugh Le on 08-15-2024 Neutrophils/100 WBC (Bld) 56.9 % 47-70 [facility] Nucleated red blood cell per centageOrdered By: Hugh Le on 08-15-2024 Nucleated RBC/100 WBC (Bld) [Ratio] 0 % 0-5 [facility] Partial Thromboplast Timeon 08-15-2024 aPTT Coag (Bld) [Time] 22.6 s Low 24.1-36.2 [facility] Comment on above: Performed By: #### L 501.5200, L500.2500 #### [facility] [address] [place], [address] Platelet countOrdered By: Peterson khoury Jess on 08-15-2024 Platelets (Bld) [#/Vol] 238 10*3/uL 150-450 [facility] Potassium measurement (mass/ volume)Ordered By: Hugh Le on 08-15-2024 Potassium (Unsp spec) [Mass/Vol] 3.6 mmol/L 3.3-5.1 [facility] Prothrombin Time w/INRon INR Coag (PPP) [Relative time] 0.9 {INR} Normal [facility] Comment on above: Performed By: #### L 501.5200, L500.2500 #### [facility] [address] [place], [address] PT Coag (PPP) [Time] 12.3 s Normal 11.7-14.9 [facility] Comment on above: Performed By: #### L 501.5200, L500.2500 #### [facility] [address] [place], [address] Prothrombin timeOrdered By: Hugh Hooker on 08-15-2024 PT Coag (PPP) [Time] 12.3 s 11.7-14.9 [facility] RBC Auto (Bld) [#/Vol]Ordere d By: Hugh Hooker on 08-15-2024 RBC (Bld) [#/Vol] 5.53 10*6/uL High 4.2-5.4 [facility] Serum creatinine measurement (mass/volume)Ordered By: Hugh Hooker on 08-15-2024 Creatinine [Mass/Vol] 0.70 mg/dL 0.70-1.20 [facility] Serum glucose measurement (m ass/volume)Ordered By: Hugh Hooker on 08-15-2024 Glucose [Mass/Vol] 138 mg/dL High 70-99 [facility] Serum or plasma calcium [place] urement (mass/volume)Ordered By: Hugh Hooker on 08-15-2024 Calcium [Mass/Vol] 9.1 mg/dL 7.6-11.0 [facility] Serum or plasma urea nitroge n measurement (mass/volume)Ordered By: Hugh Hooker on 08-15-2024 Urea nitrogen [Mass/Vol] 9 mg/dL 4-19 [facility] Sodium levelOrdered By: Hugh Hooker on 08-15-2024 Sodium [Moles/Vol] 139 mmol/L 133-145 [facility] White blood cell (WBC) count Ordered By: Hugh Hooker on 08-15-2024 WBC (Bld) [#/Vol] 7.8 10*3/uL 4.4-11.0 [facility] Cardiology Visit Reporton Cardiology Visit Report [facility] [address] [place], [place] [id number] OFFICE VISIT Date of Service: 08/10/24 MR#: [id number] Acct: [id number] Name: AMANDA REYNA Rep #: [id number] : 1955 Provider: KIMBERLY Casey Age/Sex: 69/F [place] [facility] Status: Signed HPI HPI History of Present Illness Details: AMANDA REYNA, is a 69 F who presents [...] NIBP Intake Visit Reasons: 1 Y FU Import/Export Specialist Required: No Is patient in pain?: No [...] (more content not included)... Normal [facility] Breast imaging reportOrdered By: Basilia Estrada on 08-04-2024 Study report [facility] Imaging Services [address] [place] [address] SCRN MAMM (CAD)W/PATEL BILAT MR#: [id number] Acct: [id number] Name: AMANDA REYNA Rep #: [id number] : 1955 F 69 From: Miroslava Estrada MD PCP: Dr. Ottoniel Page DO Status: REG CLI Study:SCRN MAMM (CAD)W/PATEL BILAT Date of Exa m: 08/04/24 Exam# [id number] Ordering Dr: Ottoniel Page DO EXAM: SCRN [...] be mailed to the patient. Reading Location: [facility] CC: Dr. Ottoniel Page DO ~ Automatic Die Cutting Machine Operator: Signed [facility] SCRN MAMM (CAD)W/PATEL BILATo n 08-04-2024 SCRN MAMM (CAD)W/PATEL BILAT [facility] Imaging Services [address] [place], [place] [id number] SCRN MAMM (CAD)W/PATEL BILAT MR#: [id number] Acct: [id number] Name: AMANDA REYNA Rep #: [id number] : 1955 F 69 From: Basilia Estrada MD PCP: Dr. Ottoniel Page DO Status: REG CLI Study: SCRN MAMM (CAD)W/PATEL BILAT Date of Exam: 07/09 11/01 Exam# [id number] Ordering Dr: Ottoniel Page DO EXAM: SCRN [...] be mailed to the patient. Reading Location: [id number] CC: Dr. Ottoniel Page DO Automatic Die Cutting Machine Operator: Signed Normal [facility] Re-Evalution OTon 07-20-2024 Re-Evalution OT [facility] Occupational Therapy Health[address] [place] [address] / REEVALUATION / MEDICARE RECERTIFICATION OCCUPATIONAL THERAPY MR#: [id number] Acct: [id number] Name: AMANDA REYNA Rep #: [id number] : 1955 69 From: Janeth Nash OTR/L, CHT Referring Dr.: Dr. Bruno Avila DO Status: REG RCR Insurance: [facility] Date: SELF PAY INSURANCE Re-Evaluation Intro: Dr. 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 Sincerely, CHARLES Durant CHT 07/20/24 1201 CC: Dr. Ottoniel Page DO; Dr. Bruno Avila DO MK Signed For Medicare only, by signing this I certify the plan of care. Physicians Signature Date Normal [facility] OT General Evaluationon 06-09 OT General Evaluation [facility] Occupational Therapy Health[address] [place] [address] / REHABILITATION SERVICES INITIAL EVALUATION MR#: [id number] Acct: [id number] Name: AMANDA REYNA Rep #: [id number] : 1955 69 From: Janeth SOTO CHT Referring Dr.: Dr. Bruno Avila DO Status: REG R Insurance: [facility] Date: SELF PAY INSURANCE Patient's Visit Information Visit Information Visit Information: AMANDA REYNA is a 69 year old F, referred to Occupational Therapy by Dr. Bruno Avila DO, with a diagnosis of right primary OA cmcJ. Date of Evaluation: 06/28/24 Occupational Therapist: CHARLES Durant CHT Subjective Subjective: This 69 year old female [...] 60 IP: right 20 left 60 Strength Field Research Associate: right NT left 65# Lateral Pinch: right NT left 12# Tripod Pinch: right NT left 16# Sensation Sensation Comments: denies Goals Goal:Daily scar massage when approriate: Yes Goal:ROM equal to unaffected hand: Yes Goal:Field Research Associate/Pinch strength at least 75% of unaffected hand: Yes Comment: will not initiate until week 6 for child care teacher/pinch at week 8 or later Goal:No pain [...] optimum results slight decrease in pinch and child care teacher strength generally, gain 70% of strength and motion of unoperated hand. TEXT: Thank you for the opportunity to evaluate your patient. For Medicare and Medicare HMO plans, please review the plan of care and approve it. It will need to be FAXED BACK to us at [phone] for Medicare purposes. Please let me know if there are questions or concerns regarding this plan of care. Physician Signature: Date: 06/28/24 1746 CC: Dr. Ottoniel Page DO; Dr. Bruno Avila DO MK Signed For Medicare only, by signing this I certify the plan of care. _ (more content not included)... Normal [facility] Hand 2 Viewson 05-27-2024 Hand 2 Views [facility] Imaging Services [address] [place], [place] [id number] Hand 2 Views MR#: [id number] Acct: [id number] Name: AMANDA REYNA Rep #: [id number] : 1955 F 68 From: Ottoniel Hooker MD PCP: Dr. Ottoniel Page DO Status: REG SDC Study: Hand 2 Views Date of Exam: 05/27/24 Exam# [id number] Ordering Dr: Bruno Avila DO EXAM: XR [...] operative note for further details. Reading Location[facility] CC: Dr. Ottoniel Page DO; Dr. Bruno Avila DO Automatic Die Cutting Machine Operator: Signed [facility] MR/POSTOP.[facility] 05-27-2024 MR/POSTOP.[facility] Medical Records Department [address] [place] [address] Anesthesia Postop Eval I 05/27/24 1346 MR#: [id number] Acct: [id number] Name: AMANDA REYNA Rep #: [id number] : 1955 68 From: Gatito Jiménez CRNA PCP: Dr. Ottoniel Page DO Status:REG SDC Y Race: C Location: [place] [address] Anesthesia: Postop Eval I Current Vital Signs [...] completed: Yes 05/27/24 1347 Date Gatito Jiménez MIXOLOGIST Cosigner Signature: CC: Signed Normal [facility] [id number] 05-27-2024 MR/POSTOPAN2 [facility] Medical Records Department [address] [place] [address] Anesthesia Postop Eval II 05/27/24 1441 MR#: [id number] Acct: [id number] Name: AMANDA REYNA Rep #: [id number] : 1955 68 From: Zuri Copeland PCP: Dr. Ottoniel Page, DO Status:REG [facility] Y Race: C Location: [place] [address] Anesthesia Postop Eval I Sum Postop Eval Completion status Anesthesia document: Postop Eval 1 completed: Yes Anesthesia Postop Eval I Summary Anesthesia Postop Eval I Summary: Anesthesia Postop Eval I: Assessment Summary Airway patent Yes 05/27/24 13:47 [email or web address] Spontaneous unlabored Yes 05/27/24 13:47 [email or web address].[facility]OS respirations Mental status Awake,Calm 05/27/24 13:47 [email or web address].BHOS nausea No 05/27/24 13:47 MIXOLOGIST.[facility]OS Vomiting No 05/27/24 13:47 [email or web address].[facility]OS Anesthesia Postop Eval I: Fluid Summary Crystalloid volume administer 800 05/27/24 13:47 [email or web address].BHOS (ml) Colloids volume administered ( ml) Blood Product volume administered (ml) Total IV fluid infused 800 05/27/24 13:47 [email or web address].BHOS Anesthesia Postop Eval I: Summary Notes Anesthesia Complication No 05/27/24 13:47 [email or web address].BHOS Anesthesia Complication Comment: Post-operative progress note Anesthesia: Postop Eval II Evaluation Mental status: Awake Pain Level: 1 nausea: No Vomiting: No 05/27/24 1441 Date Zuri Sirca Cosigner Signature: Date CC: Signed Normal [facility] Operative Reporton 5 Operative Report [facility] Medical Records Department [address] [place] [address] Operative Report 05/27/24 1341 MR#: [id number] Acct: [id number] Name: AMANDA REYNA Rep #: [id number] : 1955 68 From: Bruno Avila DO PCP: Dr. Ottoniel Page DO Status:[facility] Location: [place] [address] Operative Report (Standard) Operative Information Date of Procedure: 05/27/24 Pre-Operative Diagnosis: Right first carpal metacarpal joint osteoarthritis Post-Operative Diagnosis: Right first carpal metacarpal joint osteoarthritis Surgery/Procedure Performed: Right first carpometacarpal joint arthroplasty with trapezium excision, ligament reconstruction tendon interposition change number operator: Yes Salesperson Floor Coverings: Makeda Hermosillo Tasks completed by miller first: Opening closing and Implanting device Type of [...] (more content not included)... Normal [facility] Electrocardiogram reportOrde red By: Daphne Manuel on 05-24-2024 EKG study [facility] Cardiovascular Services [address] [place] [address] 12 Lead EKG 05/21/24 0753 MR#: [id number] Acct: [id number] Name: AMANDA REYNA Rep #:[id number] : 1955 68 From: Daphne marie MD Attending Dr: Dr. Bruno Avila DO Status: PRE SDC Ordering Dr: Bruno Avila DO Date: 05/21/24 Location: [facility] Sex: F C Admitted: Test Reason : PRE OP Blood Pressure : */* mmHG Vent. Rate : 63 BPM Atrial Rate : 63 BPM P-R Int : 194 ms QRS Dur : 92 ms QT Int : 414 ms P-R-T Axes : 51 45 41 degrees QTcB Int : 423 ms Normal sinus rhythm Normal ECG Confirmed by BYRON RICK, BENJAMIN ([id number]), associate editor ATUL MARINO ([id number]) on 05/24/2024 10:51:06 AM Referred By: Bruno Avila Confirmed By: BENJAMIN MANUEL MD 05/24/24 1051 Date _ Daphne Manuel MD CC: Dr. Ottoniel Page DO; Dr. Bruno Avila DO ~ Signed [facility] Work Phone: 12 Lead EKGon 05-21-2024 12 Lead EKG [facility] Cardiovascular Services [address] [place] [address] 12 Lead EKG 05/21/24 0755 MR#: [id number] Acct: [id number] Name: AMANDA REYNA Rep #: [id number] : 1955 68 From: Daphne Manuel MD Attending Dr: Dr. Bruno Avila DO Status: PRE SDC Ordering Dr: Bruno Avila DO Date: 05/21/24 Location: [facility] Sex: F C Admitted: Test Reason : PRE OP Blood Pressure : */* mmHG Vent. Rate : 63 BPM Atrial Rate : 63 BPM P-R Int : 194 ms QRS Dur : 92 ms QT Int : 414 ms P-R-T Axes : 51 45 41 degrees QTcB Int : 423 ms Normal sinus rhythm Normal ECG Confirmed by BYRON RICK, BENJAMIN ([id number]), associate editor ATUL MARINO ([id number]) on 05/24/2024 10:51:06 AM Referred By: Bruno Avila Confirmed By: BENJAMIN MANUEL MD 05/24/24 105 Date Daphne Manuel MD CC: Dr. Ottoniel Page DO; Dr. Bruno Avila DO Signed [facility] MR/PAT.ANEon 05-12-2024 MR/PAT.[facility] Medical Records Department [address] [place] [address] PAT - Anesthesia 05/12/24 1148 MR#: [id number] Acct: [id number] Name: AMANDA REYNA Rep #: [id number] : 1955 68 From: Lars Dela Cruz MD PCP: Dr. 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 Hx Hospitalization No 05/12/24 11:05 Any Problems [...] take am of surgery PONV PONV - mexican food machine tender: PONV - mexican food machine tender Female Yes 05/12/24 11:05 HX of Motion [...] 08/11/23 08:29 Respiratory Assessment Respiratory Assessment - mexican food machine tender: Respiratory Tract Infection Hx - mexican food machine tender Hx Respiratory Tract Infection No 05/12/24 11:05 STOP Sleep Apnea STOP Sleep Apnea - mexican food machine tender: STOP Sleep Apnea - mexican food machine tender Hx Hypertension Yes: CONTROLLED WITH MEDS 05/12/24 [...] Tobacco Use History Tobacco Use History - mexican food machine tender: Tobacco Use History - mexican food machine tender Tobacco Use Smoking Status Former smoker 05/12/24 11:05 Hx Tobacco Use No 05/12/24 11:05 Years Smoking Packs Smoked per Day Smoking Cessation Date was No - quit smoking greater 05/12/24 11:05 within the last 15 years than 15 years ago Hx Smoking Cessation Date 03/10/99 05/12/24 11:05 Hx Smoking Cessation Counseling Hematologic Medial History Hematologic Hx - mexican food machine tender: Hematologic Medical Hx - certified drug counselor Hx of Blood Transfusion No 05/12/24 11:05 [...] confused, unrespo /Reproduction History /Reproductive History - mexican food machine tender: /Reproductive Hx- mexican food machine tender Hx Now Gestational Age (in weeks): EDC: Hx Hx Para Hx Section SAB No 02/20/21 08:22 [facility] Medical History (Updated 05/12/24 @ 11:13 by [...] (more content not included)... Normal [facility] Absolute lymphocyte countOrd ered By: Bruno Avila on 05-10-2024 Lymphocytes Auto (Unsp spec) [#/Vol] 1.60 10*3/uL 0.83-4.51 [facility] Absolute neutrophil countOrd ered By: Bruno Avila on 05-10-2024 Neutrophils (Bld) [#/Vol] 4.7 10*3/uL 2.0-7.7 [facility] Automated lymphocyte count a s percentage of total leukocytesOrdered By: Bruno Avila on 05-10-2024 Lymphocytes/100 WBC Auto (Unsp spec) 22.3 % 19-41 [facility] BUN/creatinine ratioOrdered By: Bruno Avila on 05-10-2024 Urea nitrogen/Creatinine [Mass ratio] 13.5 mg/mg 10-20 [facility] Basic Metabolic Profile (BMP )on 05-10-2024 Anion gap [Moles/Vol] 10 mmol/L Normal 5-15 [facility] Comment on above: Order Comment: DR PAL STOKES NEEDS RESULTS OF CBC ALSO Performed By: #### L 501.5200, L500.2500 #### [facility] [address] [place], [address] BUN/CRE 13.5 RATIO Normal 10-20 [facility] Comment on above: Order Comment: DR PAL STOKES NEEDS RESULTS OF CBC ALSO Performed By: #### L 501.5200, L500.2500 #### [facility] [address] [place], [address] Calcium [Mass/Vol] 9.5 mg/dL Normal 7.6-11.0 [facility] Comment on above: Order Comment: DR PAL STOKES NEEDS RESULTS OF CBC ALSO Performed By: #### L 501.5200, L500.2500 #### [facility] [address] [place], [address] Chloride [Moles/Vol] 97 mmol/L Normal 96-108 [facility] Comment on above: Order Comment: DR PAL STOKES NEEDS RESULTS OF CBC ALSO Performed By: #### L 501.5200, L500.2500 #### [facility] [address] [place], [address] CO2 [Moles/Vol] 30.3 mmol/L High 22.0-29.0 [facility] Comment on above: Order Comment: DR PAL STOKES NEEDS RESULTS OF CBC ALSO Performed By: #### L 501.5200, L500.2500 #### [facility] [address] [place], [address] Creatinine [Mass/Vol] 0.65 mg/dL Low 0.70-1.20 [facility] Comment on above: Order Comment: DR PAL STOKES NEEDS RESULTS OF CBC ALSO Performed By: #### L 501.5200, L500.2500 #### [facility] [address] [place], [address] GFR/1.73 sq M.predicted among non-blacks MDRD (S/P/Bld) [Vol rate/Area] 96 mL/min/{1.73_m2} Normal >60 [facility] Comment on above: Order Comment: DR PAL STOKES NEEDS RESULTS OF CBC ALSO Result Comment: mL/m in/1.73m2 CKD-EPI Creatinine Equation (2020) Performed By: #### L 501.5200, L500.2500 #### [facility] [address] [place], [address] Glucose [Mass/Vol] 114 mg/dL High 70-99 [facility] Comment on above: Order Comment: DR PAL STOKES NEEDS RESULTS OF CBC ALSO Performed By: #### L 501.5200, L500.2500 #### [facility] [address] [place], [address] Potassium [Moles/Vol] 4.0 mmol/L Normal 3.3-5.1 [facility] Comment on above: Order Comment: DR PAL STOKES NEEDS RESULTS OF CBC ALSO Performed By: #### L 501.5200, L500.2500 #### [facility] [address] [place], [address] Sodium [Moles/Vol] 137 mmol/L Normal 133-145 [facility] Comment on above: Order Comment: DR PAL STOKES NEEDS RESULTS OF CBC ALSO Performed By: #### L 501.5200, L500.2500 #### [facility] [address] [place], [address] Urea nitrogen [Mass/Vol] 9 mg/dL Normal 4-19 [facility] Comment on above: Order Comment: DR PAL STOKES NEEDS RESULTS OF CBC ALSO Performed By: #### L 501.5200, L500.2500 #### [facility] [address] [place], [address] Anion Gap Normal 5-15 [facility] Comment on above: Result Comment: WRON G V ACCOUNT Performed By: #### L 501.5200, L500.2500 #### [facility] [address] [place], [address] BUN Normal 4-19 [facility] Comment on above: Result Comment: WRON G V ACCOUNT Performed By: #### L 501.5200, L500.2500 #### [facility] [address] [place], [address] BUN/CRE Normal 10-20 [facility] Comment on above: Result Comment: WRON G V ACCOUNT Performed By: #### L 501.5200, L500.2500 #### [facility] [address] [place], [address] Calcium Normal 7.6-11.0 [facility] Comment on above: Result Comment: WRON G V ACCOUNT Performed By: #### L 501.5200, L500.2500 #### [facility] [address] [place], [address] Chloride Normal 96-108 [facility] Comment on above: Result Comment: WRON G V ACCOUNT Performed By: #### L 501.5200, L500.2500 #### [facility] [address] [place], [address] CO2 Normal 22.0-29.0 [facility] Comment on above: Result Comment: WRON G V ACCOUNT Performed By: #### L 501.5200, L500.2500 #### [facility] [address] [place], [address] CREAT,SERUM Normal 0.70-1.20 [facility] Comment on above: Result Comment: WRON G V ACCOUNT Performed By: #### L 501.5200, L500.2500 #### [facility] [address] [place], [address] eGFR Normal >60 [facility] Comment on above: Result Comment: WRON G V ACCOUNT Performed By: #### L 501.5200, L500.2500 #### [facility] [address] [place], [address] GLU Normal 70-99 [facility] Comment on above: Result Comment: WRON G V ACCOUNT Performed By: #### L 501.5200, L500.2500 #### [facility] [address] [place], [address] Potassium Normal 3.3-5.1 [facility] Comment on above: Result Comment: WRON G V ACCOUNT Performed By: #### L 501.5200, L500.2500 #### [facility] [address] [place], [address] Sodium Normal 133-145 [facility] Comment on above: Result Comment: WRON G V ACCOUNT Performed By: #### L 501.5200, L500.2500 #### [facility] [address] [place], [address] Basophil percentageOrdered B y: Brunoscott Avila on 05-10-2024 Basophils/100 WBC (Bld) 1.4 % High 0-1 [facility] CBC W/ Manual Differentialon 05-10-2024 Absolute Neut Normal 2.0-7.7 [facility] Comment on above: Result Comment: WRON G V ACCOUNT Performed By: #### L 100.0125 #### [facility] [address] [place], [address] HCT Normal 37-47 [facility] Comment on above: Result Comment: WRON G V ACCOUNT Performed By: #### L 100.0125 #### [facility] [address] [place], [address] HGB Normal 12.0-15.0 [facility] Comment on above: Result Comment: WRON G V ACCOUNT Performed By: #### L 100.0125 #### [facility] [address] [place], [address] MCH Normal 27.0-32.0 [facility] Comment on above: Result Comment: WRON G V ACCOUNT Performed By: #### L 100.0125 #### [facility] [address] [place], [address] MCHC Normal 32-36 [facility] Comment on above: Result Comment: WRON G V ACCOUNT Performed By: #### L 100.0125 #### [facility] [address] [place], [address] MCV Normal 81-99 [facility] Comment on above: Result Comment: WRON G V ACCOUNT Performed By: #### L 100.0125 #### [facility] [address] [place], [address] PLT Normal 150-450 [facility] Comment on above: Result Comment: WRON G V ACCOUNT Performed By: #### L 100.0125 #### [facility] [address] [place], [address] RBC Normal 4.2-5.4 [facility] Comment on above: Result Comment: WRON G V ACCOUNT Performed By: #### L 100.0125 #### [facility] [address] [place], [address] RDW Normal 11.6-14.6 [facility] Comment on above: Result Comment: WRON G V ACCOUNT Performed By: #### L 100.0125 #### [facility] [address] [place], [address] WBC Normal 4.4-11.0 [facility] Comment on above: Result Comment: WRON G V ACCOUNT Performed By: #### L 100.0125 #### [facility] [address] [place], [address] CBC W/Diff, Automatedon 03-0 -2024 Absolute Lymph 1.60 X10 3/uL Normal 0.83-4.51 [facility] Comment on above: Order Comment: DR. Alpa DONOVAN NEEDS RESULTS OF CBC ALSO Performed By: #### L 501.5200, L500.2500 #### [facility] [address] [place], [address] Absolute Neut 4.7 X10 3/uL Normal 2.0-7.7 [facility] Comment on above: Order Comment: DR. Alpa DONOVAN NEEDS RESULTS OF CBC ALSO Performed By: #### L 501.5200, L500.2500 #### [facility] [address] [place], [address] Basophils/100 WBC (Bld) 1.4 % High 0-1 [facility] Comment on above: Order Comment: DR. Alpa DONOVAN NEEDS RESULTS OF CBC ALSO Performed By: #### L 501.5200, L500.2500 #### [facility] [address] [place], [address] Eosinophils/100 WBC (Bld) 3.9 % Normal 0-5 [facility] Comment on above: Order Comment: DR. Alpa DONOVAN NEEDS RESULTS OF CBC ALSO Performed By: #### L 501.5200, L500.2500 #### [facility] [address] [place], [address] Erythrocyte distribution width (RBC) [Ratio] 13.8 % Normal 11.6-14.6 [facility] Comment on above: Order Comment: DR. Alpa DONOVAN NEEDS RESULTS OF CBC ALSO Performed By: #### L 501.5200, L500.2500 #### [facility] [address] [place], [address] Hematocrit (Bld) [Volume fraction] 45.9 % Normal 37-47 [facility] Comment on above: Order Comment: DR. Alpa DONOVAN NEEDS RESULTS OF CBC ALSO Performed By: #### L 501.5200, L500.2500 #### [facility] [address] [place], [address] Hemoglobin (Bld) [Mass/Vol] 14.7 g/dL Normal 12.0-15.0 [facility] Comment on above: Order Comment: DR. Alpa DONOVAN NEEDS RESULTS OF CBC ALSO Performed By: #### L 501.5200, L500.2500 #### [facility] [address] [place], [address] IG% 0.400 Normal 0.0-0.9 [facility] Comment on above: Order Comment: DR. Alpa DONOVAN NEEDS RESULTS OF CBC ALSO Result Comment: IG% - Immature Granulocytes (promyelocytes, myelocytes and metamyelocytes) > 1% indicates that a LEFT SHIFT is Present. Performed By: #### L 501.5200, L500.2500 #### [facility] [address] [place], [address] Lymphocytes/100 WBC (Bld) 22.3 % Normal 19-41 [facility] Comment on above: Order Comment: DR. Alpa DONOVAN NEEDS RESULTS OF CBC ALSO Performed By: #### L 501.5200, L500.2500 #### [facility] [address] [place], [address] MCH (RBC) [Entitic mass] 27.0 pg Normal 27.0-32.0 [facility] Comment on above: Order Comment: DR. Alpa DONOVAN NEEDS RESULTS OF CBC ALSO Performed By: #### L 501.5200, L500.2500 #### [facility] [address] [place], [address] MCHC (RBC) [Mass/Vol] 32.0 g/dL Normal 32-36 [facility] Comment on above: Order Comment: DR. Alpa DONOVAN NEEDS RESULTS OF CBC ALSO Performed By: #### L 501.5200, L500.2500 #### [facility] [address] [place], [address] MCV (RBC) [Entitic vol] 84.2 fL Normal 81-99 [facility] Comment on above: Order Comment: DR. Alpa DONOVAN NEEDS RESULTS OF CBC ALSO Performed By: #### L 501.5200, L500.2500 #### [facility] [address] [place], [address] Monocytes/100 WBC (Bld) 6.8 % Normal 0-10 [facility] Comment on above: Order Comment: DR. Alpa DONOVAN NEEDS RESULTS OF CBC ALSO Performed By: #### L 501.5200, L500.2500 #### [facility] [address] [place], [address] Neutrophils/100 WBC (Bld) 65.2 % Normal 47-70 [facility] Comment on above: Order Comment: DR. Alpa DONOVAN NEEDS RESULTS OF CBC ALSO Performed By: #### L 501.5200, L500.2500 #### [facility] [address] [place], [address] Nucleated RBC (Bld) [#/Vol] 0 10*3/uL Normal 0-5 [facility] Comment on above: Order Comment: DR. Alpa DONOVAN NEEDS RESULTS OF CBC ALSO Performed By: #### L 501.5200, L500.2500 #### [facility] [address] [place], [address] Platelet mean volume (Bld) [Entitic vol] 11.5 fL Normal 6.2-12.0 [facility] Comment on above: Order Comment: DR. Alpa DONOVAN NEEDS RESULTS OF CBC ALSO Performed By: #### L 501.5200, L500.2500 #### [facility] [address] [place], [address] Platelets (Bld) [#/Vol] 241 10*3/uL Normal 150-450 [facility] Comment on above: Order Comment: DR. Alpa DONOVAN NEEDS RESULTS OF CBC ALSO Performed By: #### L 501.5200, L500.2500 #### [facility] [address] [place], [address] RBC (Bld) [#/Vol] 5.45 10*6/uL High 4.2-5.4 [facility] Comment on above: Order Comment: DR. Alpa DONOVAN NEEDS RESULTS OF CBC ALSO Performed By: #### L 501.5200, L500.2500 #### [facility] [address] [place], [address] RDW SD 42.1 fl Normal 35.1-43.9 [facility] Comment on above: Order Comment: DR. Alpa DONOVAN NEEDS RESULTS OF CBC ALSO Performed By: #### L 501.5200, L500.2500 #### [facility] [address] [place], [address] WBC (Bld) [#/Vol] 7.2 10*3/uL Normal 4.4-11.0 [facility] Comment on above: Order Comment: DR. Alpa DONOVAN NEEDS RESULTS OF CBC ALSO Performed By: #### L 501.5200, L500.2500 #### [facility] [address] [place], [address] Absolute Neut Normal 2.0-7.7 [facility] Comment on above: Result Comment: WRON G V ACCOUNT Performed By: #### L 501.5200, L500.2500 #### [facility] [address] [place], [address] HCT Normal 37-47 [facility] Comment on above: Result Comment: WRON G V ACCOUNT Performed By: #### L 501.5200, L500.2500 #### [facility] [address] [place], [address] HGB Normal 12.0-15.0 [facility] Comment on above: Result Comment: WRON G V ACCOUNT Performed By: #### L 501.5200, L500.2500 #### [facility] [address] [place], [address] MCH Normal 27.0-32.0 [facility] Comment on above: Result Comment: WRON G V ACCOUNT Performed By: #### L 501.5200, L500.2500 #### [facility] [address] [place], [address] MCHC Normal 32-36 [facility] Comment on above: Result Comment: WRON G V ACCOUNT Performed By: #### L 501.5200, L500.2500 #### [facility] [address] [place], [address] MCV Normal 81-99 [facility] Comment on above: Result Comment: WRON G V ACCOUNT Performed By: #### L 501.5200, L500.2500 #### [facility] [address] [place], [address] NEUT% Normal 47-70 [facility] Comment on above: Result Comment: WRON G V ACCOUNT Performed By: #### L 501.5200, L500.2500 #### [facility] [address] [place], [address] PLT Normal 150-450 [facility] Comment on above: Result Comment: WRON G V ACCOUNT Performed By: #### L 501.5200, L500.2500 #### [facility] [address] [place], [address] RBC Normal 4.2-5.4 [facility] Comment on above: Result Comment: WRON G V ACCOUNT Performed By: #### L 501.5200, L500.2500 #### [facility] [address] [place], [address] RDW CV Normal 11.6-14.6 [facility] Comment on above: Result Comment: WRON G V ACCOUNT Performed By: #### L 501.5200, L500.2500 #### [facility] [address] [place], [address] RDW SD Normal 35.1-43.9 [facility] Comment on above: Result Comment: WRON G V ACCOUNT Performed By: #### L 501.5200, L500.2500 #### [facility] [address] [place], [address] WBC Normal 4.4-11.0 [facility] Comment on above: Result Comment: WRON G V ACCOUNT Performed By: #### L 501.5200, L500.2500 #### [facility] [address] [place], [address] Carbon dioxide measurementOr dered By: Bruno Avila on 05-10-2024 CO2 [Moles/Vol] 30.3 mmol/L High 22.0-29.0 [facility] Chloride measurementOrdered By: Bruno Avila on 05-10-2024 Chloride [Moles/Vol] 97 mmol/L 96-108 [facility] Eosinophil percentageOrdered By: Bruno Avila on 05-10-2024 Eosinophils/100 WBC (Bld) 3.9 % 0-5 [facility] Erythrocyte distribution wid th ratioOrdered By: Bruno Avila on 05-10-2024 Erythrocyte distribution width (RBC) [Ratio] 13.8 % 11.6-14.6 [facility] Erythrocyte distribution wid th standard deviationOrdered By: Bruno Avila on 05-10-2024 Erythrocyte distribution width (RBC) [Entitic vol] 42.1 fL 35.1-43.9 [facility] Erythrocyte distribution width (RBC) [Ratio] 42.1 fl 35.1-43.9 [facility] GFR/1.73 sq M.predicted nikki g non-blacks MDRD (S/P/Bld) [Vol rate/Area]Ordered By: Bruno Avila on 05-10-2024 Estimated GFR (MDRD) Non-Af Amer 96 >60 [facility] Comment on above: mL/min/1.73m2 CKD-EP I Creatinine Equation (2020) Glomerular filtration rate ( GFR) estimation/1.73 sq m using serum, plasma, or whole bOrdered By: Bruno Avila on 05-10-2024 GFR/1.73 sq M.predicted among non-blacks MDRD (S/P/Bld) [Vol rate/Area] 96 mL/min/{1.73_m2} >60 [facility] Comment on above: mL/min/1.73m2 CKD-EP I Creatinine Equation (2020) Hematocrit Auto (Bld) [Volum e fraction]Ordered By: Bruno Avila on 05-10-2024 Hematocrit (Bld) [Volume fraction] 45.9 % 37-47 [facility] Hemoglobin measurementOrdere d By: Bruno Avila on 05-10-2024 Hemoglobin (Bld) [Mass/Vol] 14.7 g/dL 12.0-15.0 [facility] Immature granulocytes/100 WB C Auto (Bld)Ordered By: Bruno Avila on 05-10-2024 Immature granulocytes/100 WBC (Bld) 0.400 % 0.0-0.9 [facility] Comment on above: IG% - Immature Granu locytes (promyelocytes, myelocytes and metamyelocytes) > 1% indicates that a LEFT SHIFT is Present. Lymphocytes Auto (Unsp spec) [#/Vol]Ordered By: Bruno Avila on 05-10-2024 Lymphocytes (Bld) [#/Vol] 1.60 10*3/uL 0.83-4.51 [facility] Lymphocytes/100 WBC Auto (Un sp spec)Ordered By: Bruno Avila on 05-10-2024 Lymphocytes/100 WBC (Bld) 22.3 % 19-41 [facility] MCV (mean corpuscular volume ) determinationOrdered By: Bruno Avila on 05-10-2024 MCV (RBC) [Entitic vol] 84.2 fL 81-99 [facility] Mean corpuscular hemoglobin (MCH) determinationOrdered By: Bruno Avila on 05-10-2024 MCH (RBC) [Entitic mass] 27.0 pg 27.0-32.0 [facility] Mean corpuscular hemoglobin concentration (MCHC) determinationOrdered By: Bruno Avila on 05-10-2024 MCHC (RBC) [Mass/Vol] 32.0 g/dL 32-36 [facility] Mean platelet volume determi nationOrdered By: Bruno Avila on 05-10-2024 Platelet mean volume (Bld) [Entitic vol] 11.5 fL 6.2-12.0 [facility] Monocyte percentageOrdered B y: Bruno Avila on 05-10-2024 Monocytes/100 WBC (Bld) 6.8 % 0-10 [facility] Neutrophil percentageOrdered By: Bruno Avila on 05-10-2024 Neutrophils/100 WBC (Bld) 65.2 % 47-70 [facility] Nucleated red blood cell per centageOrdered By: Bruno Avila on 05-10-2024 Nucleated RBC/100 WBC (Bld) [Ratio] 0 % 0-5 [facility] Platelet countOrdered By: Rosita Avila on 05-10-2024 Platelets (Bld) [#/Vol] 241 10*3/uL 150-450 [facility] RBC Auto (Bld) [#/Vol]Ordere d By: Bruno Avila on 05-10-2024 RBC (Bld) [#/Vol] 5.45 10*6/uL High 4.2-5.4 [facility] Serum creatinine measurement (mass/volume)Ordered By: Bruno Avila on 05-10-2024 Creatinine [Mass/Vol] 0.65 mg/dL Low 0.70-1.20 [facility] Serum glucose measurement (m ass/volume)Ordered By: Bruno Avila on 05-10-2024 Glucose [Mass/Vol] 114 mg/dL High 70-99 [facility] Serum or plasma anion gap de termination (moles/volume)Ordered By: Bruno Avila on 05-10-2024 Anion gap [Moles/Vol] 10 mmol/L 5-15 [facility] Serum or plasma calcium [place] urement (mass/volume)Ordered By: Bruno Avila on 05-10-2024 Calcium [Mass/Vol] 9.5 mg/dL 7.6-11.0 [facility] Serum or plasma potassium me asurementOrdered By: Bruno Avila on 05-10-2024 Potassium [Moles/Vol] 4.0 mmol/L 3.3-5.1 [facility] [facility] Serum or plasma sodium measu rement (moles/volume)Ordered By: Bruno Avila on 05-10-2024 Sodium [Moles/Vol] 137 mmol/L 133-145 [facility] Serum or plasma urea nitroge n measurement (mass/volume)Ordered By: Bruno Avila on 05-10-2024 Urea nitrogen [Mass/Vol] 9 mg/dL 4-19 [facility] White blood cell (WBC) count Ordered By: Bruno Avila on 05-10-2024 WBC (Bld) [#/Vol] 7.2 10*3/uL 4.4-11.0 [facility] HIP, UNI W/ Pelvis 2-3 Views on 04-20-2024 HIP, UNI W/ Pelvis 2-3 Views [facility] Imaging Services [address] [place] [address] HIP, UNI W/ Pelvis 2-3 Views MR#: [id number] Acct: [id number] Name: AMANDA REYNA Rep #: [id number] : 1955 F 68 From: Bob amaro MD PCP: Dr. Ottoniel Page, DO Status: REG CLI Study: HIP, UNI W/ Pelvis 2-3 Views Date of Exam: 02/01 Exam# [id number] Ordering Dr: Daly Del Rio EXAM: HIP, [...] IMPRESSION: Degenerative changes as described. Reading Location: [place] [address] CC: Daly Del Rio; Dr. 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 Ottoniel Page DO Status: REG CLI Study: L/S Spine Min 4 Views Date of Exam: 04/20/24 Exam# [id number] Ordering Dr: Daly Del Rio PROCEDURE: L/S SPINE MIN 4 VIEWS REASON FOR EXAM: Pain. TECHNIQUE: 6 view lumbar spine series including bilateral oblique and lateral flexion and extension views. COMPARISON: None. RAD/L/S Spine Min 4 Views IMPRESSION: Right upper quadrant abdominal surgical clips are noted. Mild right and vryr-kv-mdfcywpz left sacroiliac joint degenerative changes are noted. No evidence of spondylolysis. Slight anterolisthesis of L4 upon L5 is noted. No dynamic instability is seen on lateral flexion and extension views. Rcwu-jo-ojjugxzp degenerative changes are seen throughout the lumbar spine, most prominent at the mid to lower lumbar posterior facets. Moderate disc narrowing is seen at L4-L5 and L5-S1 levels. No fracture site is evident. Reading Location: [id number] CC: Daly Del Rio; Dr. 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, [address] Absolute Neut 4.4 X10 3/uL Normal 2.0-7.7 [facility] Comment on above: Performed By: #### L 501.5200, L500.2500 #### [facility] Laboratory [address] [place], [address] Basophils/100 WBC (Bld) 1.0 % Normal 0-1 [facility] Comment on above: Performed By: #### L 501.5200, L500.2500 #### [facility] Laboratory [address] [place], [address] Eosinophils/100 WBC (Bld) 4.1 % Normal 0-5 [facility] Comment on above: Performed By: #### L 501.5200, L500.2500 #### [facility] Laboratory [address] [place], [address] Erythrocyte distribution width (RBC) [Ratio] 14.3 % Normal 11.6-14.6 [facility] Comment on above: Performed By: #### L 501.5200, L500.2500 #### [facility] Laboratory [address] [place], [address] Hematocrit (Bld) [Volume fraction] 45.9 % Normal 37-47 [facility] Comment on above: Performed By: #### L 501.5200, L500.2500 #### [facility] Laboratory [address] [place], [address] Hemoglobin (Bld) [Mass/Vol] 14.3 g/dL Normal 12.0-15.0 [facility] Comment on above: Performed By: #### L 501.5200, L500.2500 #### [facility] Laboratory [address] [place], [address] IG% 0.300 Normal 0.0-0.9 [facility] Comment on above: Result Comment: IG% - Immature Granulocytes (promyelocytes, myelocytes and metamyelocytes) > 1% indicates that a LEFT SHIFT is Present. Performed By: #### L 501.5200, L500.2500 #### [facility] Laboratory [address] [place], [address] Lymphocytes/100 WBC (Bld) 22.2 % Normal 19-41 [facility] Comment on above: Performed By: #### L 501.5200, L500.2500 #### [facility] Laboratory [address] [place], [address] MCH (RBC) [Entitic mass] 26.7 pg Low 27.0-32.0 [facility] Comment on above: Performed By: #### L 501.5200, L500.2500 #### [facility] Laboratory [address] [place], [address] MCHC (RBC) [Mass/Vol] 31.2 g/dL Low 32-36 [facility] Comment on above: Performed By: #### L 501.5200, L500.2500 #### [facility] Laboratory [address] [place], [address] MCV (RBC) [Entitic vol] 85.8 fL Normal 81-99 [facility] Comment on above: Performed By: #### L 501.5200, L500.2500 #### [facility] Laboratory [address] [place], [address] Monocytes/100 WBC (Bld) 7.6 % Normal 0-10 [facility] Comment on above: Performed By: #### L 501.5200, L500.2500 #### [facility] Laboratory [address] [place], [address] Neutrophils/100 WBC (Bld) 64.8 % Normal 47-70 [facility] Comment on above: Performed By: #### L 501.5200, L500.2500 #### [facility] Laboratory [address] [place], [address] Nucleated RBC (Bld) [#/Vol] 0 10*3/uL Normal 0-5 [facility] Comment on above: Performed By: #### L 501.5200, L500.2500 #### [facility] Laboratory [address] [place], [address] Platelet mean volume (Bld) [Entitic vol] 11.8 fL Normal 6.2-12.0 [facility] Comment on above: Performed By: #### L 501.5200, L500.2500 #### [facility] Laboratory [address] [place], [address] Platelets (Bld) [#/Vol] 218 10*3/uL Normal 150-450 [facility] Comment on above: Performed By: #### L 501.5200, L500.2500 #### [facility] Laboratory [address] [place], [address] RBC (Bld) [#/Vol] 5.35 10*6/uL Normal 4.2-5.4 [facility] Comment on above: Performed By: #### L 501.5200, L500.2500 #### [facility] Laboratory [address] [place], [address] RDW SD 43.8 fl Normal 35.1-43.9 [facility] Comment on above: Performed By: #### L 501.5200, L500.2500 #### [facility] Laboratory [address] [place], [address] WBC (Bld) [#/Vol] 6.8 10*3/uL Normal 4.4-11.0 [facility] Comment on above: Performed By: #### L 501.5200, L500.2500 #### [facility] Laboratory [address] [place], [address] HIP, UNI W/ Pelvis 2-3 Views on 01-05-2024 HIP, UNI W/ Pelvis 2-3 Views [facility] Imaging Services [address] [place] [address] HIP, UNI W/ Pelvis 2-3 Views MR#: [id number] Acct: [id number] Name: AMANDA REYNA Rep #: [id number] : 1955 F 68 From: Chavez Rogers PCP: Dr. Ottoniel Page, DO Status: [facility] RCR Study: HIP, UNI W/ Pelvis 2-3 Views Date of Exam: Exam# [id number] Ordering Dr: Daly Del Rio [id number] EXAM: XR LEFT HIP WITH PELVIS WHEN [...] CC: Daly Del Rio; Dr. 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 Laboratory - Chemistry and C hemistry - challengeOrdered By: Facundo Kat on 07-05-2023 Ferritin [Mass/Vol] 24 ng/mL 8-252 [facility] No Panel InformationOrdered By: Facundo Kat on 07-05-2023 C-Reactive Protein Extended Range 7.67 mg/L 0.0-3.0 [facility] Comment on above: C-Reactive Protein ( CRP) provides useful information for thediagnosis, therapy and monitoring of inflammatory processesand associated diseases. For the evaluation of Relative Riskfor Cardiovascular Disease, a High Sensitivity CRP (HSCRP)should be ordered. Total Iron Binding Capacity 486 ug/dL 250-450 [facility] Comment on above: Moderate Hemolysis, Result may be falsely increased. Serum or plasma iron saturat ion measurement (mass fraction)Ordered By: Facundo Kat on 07-05-2023 Iron saturation [Mass fraction] 11.3 % 15.0-55.0 [facility] Absolute lymphocyte countOrd ered By: Facundo Kat on 06-20-2023 Lymphocytes Auto (Unsp spec) [#/Vol] 2.04 10*3/uL 0.83-4.51 [facility] Automated lymphocyte count a s percentage of total leukocytesOrdered By: Facundo Kat on 06-20-2023 Lymphocytes/100 WBC Auto (Unsp spec) 25.3 % 19-41 [facility] Basophil percentageOrdered B y: Facundo Kat on 06-20-2023 Basophils/100 WBC (Bld) 1.6 % 0-1 [facility] Eosinophils/100 WBC (Bld) 3.2 % 0-5 [facility] Hemoglobin (Bld) [Mass/Vol] 12.6 g/dL 12.0-15.0 [facility] Monocytes/100 WBC (Bld) 8.1 % 0-10 [facility] Neutrophils (Bld) [#/Vol] 4.9 10*3/uL 2.0-7.7 [facility] Neutrophils/100 WBC (Bld) 61.4 % 47-70 [facility] WBC (Bld) [#/Vol] 8.1 10*3/uL 4.4-11.0 [facility] Blood manual differential co mment interpretation (narrative result)Ordered By: Facundo Kat on 06-20-2023 Manual differential comment Popeye (Bld) [Interp] SCANNED [facility] Comment on above: Please note: For thi [...] 06-20-2023 Platelets LM Ql (Bld) ADEQUATE ADEQ [facility] Determination of erythrocyte mean corpuscular volume (MCV)Ordered By: Facundo Kat on 06-20-2023 MCV (RBC) [Entitic vol] 75.5 fL 81-99 [facility] Erythrocyte distribution wid th ratioOrdered By: Facundo Kat on 06-20-2023 Erythrocyte distribution width (RBC) [Ratio] 15.9 % 11.6-14.6 [facility] Erythrocyte distribution wid th standard deviationOrdered By: Facundo Kat on 06-20-2023 Erythrocyte distribution width (RBC) [Entitic vol] 42.6 fL 35.1-43.9 [facility] Hematocrit Auto (Bld) [Volum e fraction]Ordered By: Facundo Kat on 06-20-2023 Hematocrit (Bld) [Volume fraction] 43.4 % 37-47 [facility] Immature granulocytes/100 WB C Auto (Bld)Ordered By: Facundo Kat on 06-20-2023 Immature granulocytes/100 WBC (Bld) 0.400 % 0.0-0.9 [facility] Comment on above: IG% - Immature Granu locytes (promyelocytes, myelocytes and metamyelocytes) > 1% indicates that a LEFT SHIFT is Present. Laboratory - Hematology and Cell countsOrdered By: Facundo Kat on 06-20-2023 MCH (RBC) [Entitic mass] 21.9 pg 27.0-32.0 [facility] MCHC (RBC) [Mass/Vol] 29.0 g/dL 32-36 [facility] Nucleated RBC/100 WBC (Bld) [Ratio] 0 % 0-5 [facility] Platelet mean volume (Bld) [Entitic vol] 11.9 fL 6.2-12.0 [facility] No Panel InformationOrdered By: Facundo Kat on 06-20-2023 Platelet Count TNP [facility] Comment on above: Test not performedPl ease note: For this sample, a platelet estimate is provided rather than a platelet count due to platelet clumping. Other parameters associated with this sample are not affected by platelet clumping. If a more accurate platelet count is required, a redraw of the patient will be necessary.Previous reported result: 263 [id number] by: CHRISTIN on 06/20/23:1818 AMENDED REPORT 06/20/231817 PLT previously reported as: 263 K/mm3 RBC Auto (Bld) [#/Vol]Ordere d By: Facundo Kat on 06-20-2023 RBC (Bld) [#/Vol] 5.75 10*6/uL 4.2-5.4 [facility] Absolute lymphocyte countOrd ered By: Ottoniel Page on 11-22-2022 Lymphocytes Auto (Unsp spec) [#/Vol] 1.60 10*3/uL 0.83-4.51 [facility] Basophil percentageOrdered B y: Ottoniel Page on 11-22-2022 Basophils/100 WBC (Bld) 1.2 % 0-1 [facility] Bilirubin [Mass/Vol] 0.50 mg/dL 0.20-1.00 [facility] Comment on above: For patients on eltr ombopag therapy, use of Dimension [place] TBIL is not recommended. Chloride [Moles/Vol] 101 mmol/L 98-107 [facility] Eosinophils/100 WBC (Bld) 1.9 % 0-5 [facility] Glucose [Mass/Vol] 110 mg/dL 74-106 [facility] Comment on above: Fasting Glucose resu lt from 100 to 125 mg/dL suggests IMPAIRED HOMEOSTASIS per A.D.A. criteria. Neutrophils (Bld) [#/Vol] 4.4 10*3/uL 2.0-7.7 [facility] Neutrophils/100 WBC (Bld) 64.6 % 47-70 [facility] Potassium [Moles/Vol] 3.3 mmol/L 3.5-5.1 [facility] Protein [Mass/Vol] 7.2 g/dL 6.4-8.2 [facility] Sodium [Moles/Vol] 139 mmol/L 136-145 [facility] WBC (Bld) [#/Vol] 6.8 10*3/uL 4.4-11.0 [facility] Blood erythrocytes count (nu mber/volume)Ordered By: Ottoniel Page on 11-22-2022 RBC (Bld) [#/Vol] 5.74 10*6/uL 4.2-5.4 [facility] Blood hemoglobin measurement (mass/volume)Ordered By: Ottoniel Page on 11-22-2022 Hemoglobin (Bld) [Mass/Vol] 13.5 g/dL 12.0-15.0 [facility] Blood lymphocytes/100 leukoc ytesOrdered By: Ottoniel Page on 11-22-2022 Lymphocytes/100 WBC (Bld) 23.4 % 19-41 [facility] Blood monocytes/100 leukocyt esOrdered By: Ottoniel Page on 11-22-2022 Monocytes/100 WBC (Bld) 8.5 % 0-10 [facility] Blood platelet mean volumeOr dered By: Ottoniel Page on 11-22-2022 Platelet mean volume (Bld) [Entitic vol] 11.6 fL 6.2-12.0 [facility] Determination of erythrocyte mean corpuscular volume (MCV)Ordered By: Ottoniel Page on 11-22-2022 MCV (RBC) [Entitic vol] 80.3 fL 81-99 [facility] Hematocrit Auto (Bld) [Volum e fraction]Ordered By: Ottoniel Page on 11-22-2022 Hematocrit (Bld) [Volume fraction] 46.1 % 37-47 [facility] Laboratory - Chemistry and C hemistry - challengeOrdered By: Ottoniel Page on 11-22-2022 ALP [Catalytic activity/Vol] 61 U/L 45-117 [facility] ALT [Catalytic activity/Vol] 49 U/L 13-56 [facility] CO2 [Moles/Vol] 33.0 mmol/L 21.0-32.0 [facility] Globulin (S) [Mass/Vol] 3.9 g/dL 2.2-4.2 [facility] Urea nitrogen/Creatinine [Mass ratio] 15.9 mg/mg 10-20 [facility] Laboratory - Hematology and Cell countsOrdered By: Ottoniel Page on 11-22-2022 Erythrocyte distribution width (RBC) [Entitic vol] 46.4 fL 35.1-43.9 [facility] Erythrocyte distribution width (RBC) [Ratio] 16.1 % 11.6-14.6 [facility] Immature granulocytes/100 WBC (Bld) 0.400 % 0.0-0.9 [facility] Comment on above: IG% - Immature Granu locytes (promyelocytes, myelocytes and metamyelocytes) > 1% indicates that a LEFT SHIFT is Present. MCH (RBC) [Entitic mass] 23.5 pg 27.0-32.0 [facility] Nucleated RBC/100 WBC (Bld) [Ratio] 0 % 0-5 [facility] MCHC Auto (RBC) [Mass/Vol]Or dered By: Ottoniel Page on 11-22-2022 MCHC (RBC) [Mass/Vol] 29.3 g/dL 32-36 [facility] No Panel InformationOrdered By: Ottoniel Page on 11-22-2022 Estimated GFR (MDRD) Amer 109 mL/min >60 [facility] Comment on above: GFR Calc Estimated GFR (MDRD) Non-Af Amer 90 mL/min >60 [facility] Comment on above: Non- GFR Calc Thyroid Stimulating Hormone (TSH) 2.11 uIU/mL 0.358-3.74 [facility] Platelets bldOrdered By: Mckenzie Page on 11-22-2022 Platelets (Bld) [#/Vol] 297 10*3/uL 150-450 [facility] Serum or plasma albumin [place] urement (mass/volume)Ordered By: Ottoniel Page on 11-22-2022 Albumin [Mass/Vol] 3.3 g/dL 3.2-5.0 [facility] Serum or plasma albumin/glob ulin mass ratioOrdered By: Ottoniel Page on 11-22-2022 Albumin/Globulin [Mass ratio] 0.8 {ratio} 0.9-2.4 [facility] Serum or plasma calcium [place] urement (mass/volume)Ordered By: Ottoniel Page on 11-22-2022 Calcium [Mass/Vol] 9.1 mg/dL 8.5-10.1 [facility] Serum or plasma creatinine m easurement (mass/volume)Ordered By: Ottoniel Page on 11-22-2022 Creatinine [Mass/Vol] 0.69 mg/dL 0.55-1.02 [facility] Comment on above: The validity of the calculated GFR & GFRAA in patients over 70 years has not been determined. Clinical correlation is essential. Serum or plasma urea nitroge n measurement (mass/volume)Ordered By: Ottoniel Page on 11-22-2022 Urea nitrogen [Mass/Vol] 11 mg/dL 7-18 [facility] Thin prep Papanicolaou smear with manual screeningOrdered By: Ottoniel Page on 11-22-2022 Thin prep Papanicolaou smear with manual screening 36 U/L 15-37 [facility] Thin prep Papanicolaou smear with manual screening 5 5-15 [facility] Absolute lymphocyte countOrd ered By: Fiorella Vidal on 09-20-2022 Lymphocytes Auto (Unsp spec) [#/Vol] 1.49 10*3/uL 0.83-4.51 [facility] Basophil percentageOrdered B y: Fiorella Vidal on 09-20-2022 Basophils/100 WBC (Bld) 1.5 % 0-1 [facility] Chloride [Moles/Vol] 103 mmol/L 98-107 [facility] Eosinophils/100 WBC (Bld) 3.3 % 0-5 [facility] Glucose [Mass/Vol] 114 mg/dL 74-106 [facility] Comment on above: Fasting Glucose resu lt from 100 to 125 mg/dL suggests IMPAIRED HOMEOSTASIS per A.D.A. criteria. Neutrophils (Bld) [#/Vol] 3.3 10*3/uL 2.0-7.7 [facility] Neutrophils/100 WBC (Bld) 59.1 % 47-70 [facility] Potassium [Moles/Vol] 4.1 mmol/L 3.5-5.1 [facility] Sodium [Moles/Vol] 138 mmol/L 136-145 [facility] WBC (Bld) [#/Vol] 5.5 10*3/uL 4.4-11.0 [facility] Blood erythrocytes count (nu mber/volume)Ordered By: Fiorella Vidal on 09-20-2022 RBC (Bld) [#/Vol] 5.46 10*6/uL 4.2-5.4 [facility] Blood hemoglobin measurement (mass/volume)Ordered By: Fiorella Vidal on 09-20-2022 Hemoglobin (Bld) [Mass/Vol] 13.0 g/dL 12.0-15.0 [facility] Blood lymphocytes/100 leukoc ytesOrdered By: Fiorella Vidal on 09-20-2022 Lymphocytes/100 WBC (Bld) 27.0 % 19-41 [facility] Blood monocytes/100 leukocyt esOrdered By: Fiorella Vidal on 09-20-2022 Monocytes/100 WBC (Bld) 8.9 % 0-10 [facility] Blood platelet mean volumeOr dered By: Fiorella Vidal on 09-20-2022 Platelet mean volume (Bld) [Entitic vol] 11.4 fL 6.2-12.0 [facility] Determination of erythrocyte mean corpuscular volume (MCV)Ordered By: Fiorella Vidal on 09-20-2022 MCV (RBC) [Entitic vol] 79.5 fL 81-99 [facility] Hematocrit Auto (Bld) [Volum e fraction]Ordered By: Fiorella Vidal on 09-20-2022 Hematocrit (Bld) [Volume fraction] 43.4 % 37-47 [facility] Laboratory - Chemistry and C hemistry - challengeOrdered By: Fiorella Vidal on 09-20-2022 CO2 [Moles/Vol] 32.0 mmol/L 21.0-32.0 [facility] Urea nitrogen/Creatinine [Mass ratio] 16.4 mg/mg 10-20 [facility] Laboratory - Hematology and Cell countsOrdered By: Fiorella Vidal on 09-20-2022 Erythrocyte distribution width (RBC) [Entitic vol] 44.6 fL 35.1-43.9 [facility] Erythrocyte distribution width (RBC) [Ratio] 15.7 % 11.6-14.6 [facility] Immature granulocytes/100 WBC (Bld) 0.200 % 0.0-0.9 [facility] Comment on above: IG% - Immature Granu locytes (promyelocytes, myelocytes and metamyelocytes) > 1% indicates that a LEFT SHIFT is Present. MCH (RBC) [Entitic mass] 23.8 pg 27.0-32.0 [facility] Nucleated RBC/100 WBC (Bld) [Ratio] 0 % 0-5 [facility] MCHC Auto (RBC) [Mass/Vol]Or dered By: Fiorella Vidal on 09-20-2022 MCHC (RBC) [Mass/Vol] 30.0 g/dL 32-36 [facility] No Panel InformationOrdered By: Fiorella Vidal on 09-20-2022 Estimated GFR (MDRD) Amer 93 mL/min >60 [facility] Comment on above: GFR Calc Estimated GFR (MDRD) Non-Af Amer 77 mL/min >60 [facility] Comment on above: Non- GFR Calc Platelets bldOrdered By: Anat Vidal on 09-20-2022 Platelets (Bld) [#/Vol] 252 10*3/uL 150-450 [facility] Serum or plasma calcium [place] urement (mass/volume)Ordered By: Fiorella Vidal on 09-20-2022 Calcium [Mass/Vol] 9.0 mg/dL 8.5-10.1 [facility] Serum or plasma creatinine m easurement (mass/volume)Ordered By: Fiorella Vidal on 09-20-2022 Creatinine [Mass/Vol] 0.79 mg/dL 0.55-1.02 [facility] Comment on above: The validity of the calculated GFR & GFRAA in patients over 70 years has not been determined. Clinical correlation is essential. Serum or plasma urea nitroge n measurement (mass/volume)Ordered By: Fiorella Vidal on 09-20-2022 Urea nitrogen [Mass/Vol] 13 mg/dL 7-18 [facility] Thin prep Papanicolaou smear with manual screeningOrdered By: Fiorella Vidal on 09-20-2022 Thin prep Papanicolaou smear with manual screening 3 5-15 [facility] Absolute lymphocyte countOrd ered By: Dr. Vinson on 04-22-2022 Lymphocytes Auto (Unsp spec) [#/Vol] 2.15 10*3/uL 0.83-4.51 [facility] Basophil percentageOrdered B y: Dr. Vinson on 04-22-2022 Basophils/100 WBC (Bld) 0.8 % 0-1 [facility] Eosinophils/100 WBC (Bld) 0.9 % 0-5 [facility] Neutrophils (Bld) [#/Vol] 7.2 10*3/uL 2.0-7.7 [facility] Neutrophils/100 WBC (Bld) 69.6 % 47-70 [facility] WBC (Bld) [#/Vol] 10.3 10*3/uL 4.4-11.0 [facility] Blood erythrocytes count (nu mber/volume)Ordered By: Dr. Vinson on 04-22-2022 RBC (Bld) [#/Vol] 5.97 10*6/uL 4.2-5.4 [facility] Blood hemoglobin measurement (mass/volume)Ordered By: Dr. Vinson on 04-22-2022 Hemoglobin (Bld) [Mass/Vol] 14.8 g/dL 12.0-15.0 [facility] Blood lymphocytes/100 leukoc ytesOrdered By: Dr. Vinson on 04-22-2022 Lymphocytes/100 WBC (Bld) 20.9 % 19-41 [facility] Blood monocytes/100 leukocyt esOrdered By: Dr. Vinson on 04-22-2022 Monocytes/100 WBC (Bld) 7.5 % 0-10 [facility] Blood platelet mean volumeOr dered By: Dr. Vinson on 04-22-2022 Platelet mean volume (Bld) [Entitic vol] 10.9 fL 6.2-12.0 [facility] Determination of erythrocyte mean corpuscular volume (MCV)Ordered By: Dr. Vinson on 04-22-2022 MCV (RBC) [Entitic vol] 79.4 fL 81-99 [facility] Hematocrit Auto (Bld) [Volum e fraction]Ordered By: Dr. Vinson on 04-22-2022 Hematocrit (Bld) [Volume fraction] 47.4 % 37-47 [facility] Laboratory - Hematology and Cell countsOrdered By: Dr. Vinson on 04-22-2022 Erythrocyte distribution width (RBC) [Entitic vol] 40.9 fL 35.1-43.9 [facility] Erythrocyte distribution width (RBC) [Ratio] 14.2 % 11.6-14.6 [facility] Immature granulocytes/100 WBC (Bld) 0.300 % 0.0-0.9 [facility] Comment on above: IG% - Immature Granu locytes (promyelocytes, myelocytes and metamyelocytes) > 1% indicates that a LEFT SHIFT is Present. MCH (RBC) [Entitic mass] 24.8 pg 27.0-32.0 [facility] Nucleated RBC/100 WBC (Bld) [Ratio] 0 % 0-5 [facility] MCHC Auto (RBC) [Mass/Vol]Or dered By: Dr. Vinson on 04-22-2022 MCHC (RBC) [Mass/Vol] 31.2 g/dL 32-36 [facility] No Panel InformationOrdered By: Dr. Vinson on 04-22-2022 Follicle Stimulating Hormone 29.7 mIU/mL [facility] Comment on above: NORMAL REFERENCE RAN [facility] FEMALE FOLLICULAR 2.3 - 12.6 mIU/mL MID-CYCLE PEAK 5.2 - 17.5 mIU/mL LUTEAL 1.7 - 12.9 mIU/mL POST-MENOPAUSAL ON MHT 5.9 - 72.8 mIU/mL NOT ON MHT 12.7 - 132.2 mlU/mL MALE 0.7 - 10.8 mIU/mL Luteinizing Hormone 18.3 mIU/mL [facility] Comment on above: NORMAL REFERENCE RAN [facility] FEMALE FOLLICULAR 1.9 - 26.2 mIU/mL MID-CYCLE PEAK 22.8 - 76.1 mIU/mL LUTEAL 0.6 - 16.6 mIU/mL POST-MENOPAUSAL ON MHT 1.1 - 52.4 mIU/mL NOT ON MHT 8.6 - 61.8 mIU/mL MALE 1.2 - 10.6 mIU/mL Thyroid Stimulating Hormone (TSH) 3.24 uIU/mL 0.358-3.74 [facility] Platelets bldOrdered By: Dr. Vinson on 04-22-2022 Platelets (Bld) [#/Vol] 278 10*3/uL 150-450 [facility] Serum or plasma estradiol (E 2) measurement (mass/volume)Ordered By: Dr. Vinson on 04-22-2022 E2 [Mass/Vol] pg/mL [facility] Comment on above: NORMAL REFERENCE RAN GES [...] Progesterone [Mass/Vol] ng/mL See Comment [facility] Comment on above: Progesterone Referen ce Table: [...] spec) [#/Vol] 1.85 10*3/uL 0.83-4.51 [facility] Basophil percentageOrdered B y: Dr. Kat on 03-21-2022 Basophils/100 WBC (Bld) 1.7 % 0-1 [facility] Eosinophils/100 WBC (Bld) 3.3 % 0-5 [facility] Neutrophils (Bld) [#/Vol] 3.3 10*3/uL 2.0-7.7 [facility] Neutrophils/100 WBC (Bld) 55.2 % 47-70 [facility] WBC (Bld) [#/Vol] 6.0 10*3/uL 4.4-11.0 [facility] Blood erythrocytes count (nu mber/volume)Ordered By: Dr. Kat on 03-21-2022 RBC (Bld) [#/Vol] 5.41 10*6/uL 4.2-5.4 [facility] Blood hemoglobin measurement (mass/volume)Ordered By: Dr. Kat on 03-21-2022 Hemoglobin (Bld) [Mass/Vol] 13.3 g/dL 12.0-15.0 [facility] Blood lymphocytes/100 leukoc ytesOrdered By: Dr. Kat on 03-21-2022 Lymphocytes/100 WBC (Bld) 30.9 % 19-41 [facility] Blood monocytes/100 leukocyt esOrdered By: Dr. Kat on 03-21-2022 Monocytes/100 WBC (Bld) 8.7 % 0-10 [facility] Blood platelet mean volumeOr dered By: Dr. Kat on 03-21-2022 Platelet mean volume (Bld) [Entitic vol] 11.9 fL 6.2-12.0 [facility] Determination of erythrocyte mean corpuscular volume (MCV)Ordered By: Dr. Kat on 03-21-2022 MCV (RBC) [Entitic vol] 81.3 fL 81-99 [facility] Hematocrit Auto (Bld) [Volum e fraction]Ordered By: Dr. Kat on 03-21-2022 Hematocrit (Bld) [Volume fraction] 44.0 % 37-47 [facility] Laboratory - Hematology and Cell countsOrdered By: Dr. Kat on 03-21-2022 Erythrocyte distribution width (RBC) [Entitic vol] 41.1 fL 35.1-43.9 [facility] Erythrocyte distribution width (RBC) [Ratio] 14.1 % 11.6-14.6 [facility] Immature granulocytes/100 WBC (Bld) 0.200 % 0.0-0.9 [facility] Comment on above: IG% - Immature Granu locytes (promyelocytes, myelocytes and metamyelocytes) > 1% indicates that a LEFT SHIFT is Present. MCH (RBC) [Entitic mass] 24.6 pg 27.0-32.0 [facility] Nucleated RBC/100 WBC (Bld) [Ratio] 0 % 0-5 [facility] MCHC Auto (RBC) [Mass/Vol]Or dered By: Dr. Kat on 03-21-2022 MCHC (RBC) [Mass/Vol] 30.2 g/dL 32-36 [facility] Platelets bldOrdered By: Dr. Kat on 03-21-2022 Platelets (Bld) [#/Vol] 250 10*3/uL 150-450 [facility] Absolute lymphocyte countOrd ered By: Makeda Hermosillo on 01-02-2022 Lymphocytes Auto (Unsp spec) [#/Vol] 1.81 10*3/uL 0.83-4.51 [facility] Basophil percentageOrdered B y: Makeda Hermosillo on 01-02-2022 Basophils/100 WBC (Bld) 1.0 % 0-1 [facility] Chloride [Moles/Vol] 99 mmol/L 98-107 [facility] Eosinophils/100 WBC (Bld) 2.7 % 0-5 [facility] Glucose [Mass/Vol] 165 mg/dL 74-106 [facility] Comment on above: Fasting Glucose resu lt greater than or equal to 126 mg/dL suggests DIABETES MELLITUS per A.D.A. criteria. Neutrophils (Bld) [#/Vol] 4.9 10*3/uL 2.0-7.7 [facility] Neutrophils/100 WBC (Bld) 64.7 % 47-70 [facility] Potassium [Moles/Vol] 3.3 mmol/L 3.5-5.1 [facility] Comment on above: Slight Hemolysis, Re sult may be falsely increased. Sodium [Moles/Vol] 137 mmol/L 136-145 [facility] WBC (Bld) [#/Vol] 7.6 10*3/uL 4.4-11.0 [facility] Blood erythrocytes count (nu mber/volume)Ordered By: Makeda Hermosillo on 01-02-2022 RBC (Bld) [#/Vol] 5.37 10*6/uL 4.2-5.4 [facility] Blood hemoglobin measurement (mass/volume)Ordered By: Makeda Hermosillo on 01-02-2022 Hemoglobin (Bld) [Mass/Vol] 14.1 g/dL 12.0-15.0 [facility] Blood lymphocytes/100 leukoc ytesOrdered By: Makeda Hermosillo on 01-02-2022 Lymphocytes/100 WBC (Bld) 23.7 % 19-41 [facility] Blood monocytes/100 leukocyt esOrdered By: Makeda Hermosillo on 01-02-2022 Monocytes/100 WBC (Bld) 7.5 % 0-10 [facility] Blood platelet mean volumeOr dered By: Makeda Hermosillo on 01-02-2022 Platelet mean volume (Bld) [Entitic vol] 11.2 fL 6.2-12.0 [facility] Determination of erythrocyte mean corpuscular volume (MCV)Ordered By: Makeda Hermosillo on 01-02-2022 MCV (RBC) [Entitic vol] 82.1 fL 81-99 [facility] Hematocrit Auto (Bld) [Volum e fraction]Ordered By: Makeda Hermosillo on 01-02-2022 Hematocrit (Bld) [Volume fraction] 44.1 % 37-47 [facility] Laboratory - Chemistry and C hemistry - challengeOrdered By: Makeda Hermosillo on 01-02-2022 CO2 [Moles/Vol] 34.0 mmol/L 21.0-32.0 [facility] Urea nitrogen/Creatinine [Mass ratio] 21.7 mg/mg 10-20 [facility] Laboratory - Hematology and Cell countsOrdered By: Makeda Hermosillo on 01-02-2022 Erythrocyte distribution width (RBC) [Entitic vol] 43.2 fL 35.1-43.9 [facility] Erythrocyte distribution width (RBC) [Ratio] 14.4 % 11.6-14.6 [facility] Immature granulocytes/100 WBC (Bld) 0.400 % 0.0-0.9 [facility] Comment on above: IG% - Immature Granu locytes (promyelocytes, myelocytes and metamyelocytes) > 1% indicates that a LEFT SHIFT is Present. MCH (RBC) [Entitic mass] 26.3 pg 27.0-32.0 [facility] Nucleated RBC/100 WBC (Bld) [Ratio] 0 % 0-5 [facility] MCHC Auto (RBC) [Mass/Vol]Or dered By: Makeda Hermosillo on 01-02-2022 MCHC (RBC) [Mass/Vol] 32.0 g/dL 32-36 [facility] No Panel InformationOrdered By: Makeda Hermosillo on 01-02-2022 Estimated GFR (MDRD) Amer 101 mL/min >60 [facility] Comment on above: GFR Calc Estimated GFR (MDRD) Non-Af Amer 83 mL/min >60 [facility] Comment on above: Non- GFR Calc Platelets bldOrdered By: Kim Hermosillo on 01-02-2022 Platelets (Bld) [#/Vol] 255 10*3/uL 150-450 [facility] Serum or plasma calcium [place] urement (mass/volume)Ordered By: Makeda Hermosillo on 01-02-2022 Calcium [Mass/Vol] 9.1 mg/dL 8.5-10.1 [facility] Serum or plasma creatinine m easurement (mass/volume)Ordered By: Makeda Hermosillo on 01-02-2022 Creatinine [Mass/Vol] 0.74 mg/dL 0.55-1.02 [facility] Comment on above: The validity of the calculated GFR & GFRAA in patients over 70 years has not been determined. Clinical correlation is essential. Serum or plasma urea nitroge n measurement (mass/volume)Ordered By: Makeda Hermosillo on 01-02-2022 Urea nitrogen [Mass/Vol] 16 mg/dL 7-18 [facility] Thin prep Papanicolaou smear with manual screeningOrdered By: Makeda Hermosillo on 01-02-2022 Thin prep Papanicolaou smear with manual screening 4 5-15 [facility] Basophil percentageon 2021 Basophil percentage < 0.9 mg/dL 0.55-1.02 [facility] Work Phone: No Panel Informationon 09-14 Bedside Estimated GFR (eGFR) > 60.0000 mL/min >60 [facility] Work Phone: No Panel Informationon 08-15 Miscellaneous Test See comment [facility] Work Phone: Comment on above: Scanned image report available in EMR No Panel Informationon 08-08 Stool Calprotectin 199 ug/g 0-120 [facility] Work Phone: Comment on above: Concentration Interp retation Follow-Up<16 - 50 ug/g Normal None>50 -120 ug/g Borderline Re-evaluate in 4-6 weeks >120 ug/g Abnormal Repeat as clinically indicatedPerformed at: [facility] [id number] Director: Medardo Garcia MD, Phone: [phone] Absolute lymphocyte counton 08-02-2021 Lymphocytes Auto (Unsp spec) [#/Vol] 1.50 10*3/uL 0.83-4.51 [facility] Work Phone: Basophil percentageon 2021 Basophils/100 WBC (Bld) 1.4 % 0-1 [facility] Work Phone: Eosinophils/100 WBC (Bld) 4.1 % 0-5 [facility] Work Phone: [phone] Neutrophils (Bld) [#/Vol] 3.5 10*3/uL 2.0-7.7 [facility] Work Phone: Neutrophils/100 WBC (Bld) 58.9 % 47-70 [facility] Work Phone: WBC (Bld) [#/Vol] 5.9 10*3/uL 4.4-11.0 [facility] Work Phone: [phone] Blood erythrocytes count (nu mber/volume)on 08-02-2021 RBC (Bld) [#/Vol] 5.45 10*6/uL 4.2-5.4 [facility] Work Phone: Blood hemoglobin measurement (mass/volume)on 08-02-2021 Hemoglobin (Bld) [Mass/Vol] 13.7 g/dL 12.0-15.0 [facility] Work Phone: Blood lymphocytes/100 leukoc yteson 08-02-2021 Lymphocytes/100 WBC (Bld) 25.5 % 19-41 [facility] Work Phone: Blood monocytes/100 leukocyt eson 08-02-2021 Monocytes/100 WBC (Bld) 9.8 % 0-10 [facility] Work Phone: [phone] Blood platelet mean volumeon 08-02-2021 Platelet mean volume (Bld) [Entitic vol] 12.6 fL 6.2-12.0 [facility] Work Phone: [phone] Determination of erythrocyte mean corpuscular volume (MCV)on 08-02-2021 MCV (RBC) [Entitic vol] 81.5 fL 81-99 [facility] Work Phone: [phone] Hematocrit Auto (Bld) [Volum e fraction]on 08-02-2021 Hematocrit (Bld) [Volume fraction] 44.4 % 37-47 [facility] Work Phone: Laboratory - Hematology and Cell countson 08-02-2021 Erythrocyte distribution width (RBC) [Entitic vol] 42.5 fL 35.1-43.9 [facility] Work Phone: [phone] Erythrocyte distribution width (RBC) [Ratio] 14.5 % 11.6-14.6 [facility] Work Phone: [phone] Immature granulocytes/100 WBC (Bld) 0.300 % 0.0-0.9 [facility] Work Phone: Comment on above: IG% - Immature Granu locytes (promyelocytes, myelocytes and metamyelocytes) > 1% indicates that a LEFT SHIFT is Present. MCH (RBC) [Entitic mass] 25.1 pg 27.0-32.0 [facility] Work Phone: [phone] Nucleated RBC/100 WBC (Bld) [Ratio] 0 % 0-5 [facility] Work Phone: [phone] MCHC Auto (RBC) [Mass/Vol]on 08-02-2021 MCHC (RBC) [Mass/Vol] 30.9 g/dL 32-36 [facility] Work Phone: Platelets bldon 08-02-2021 Platelets (Bld) [#/Vol] 232 10*3/uL 150-450 [facility] Work Phone: Serum or plasma C reactive p rotein measurement (mass/volume)on 08-02-2021 CRP [Mass/Vol] 11.90 mg/L 0.0-3.0 [facility] Work Phone: Comment on above: C-Reactive Protein ( CRP) provides useful information for thediagnosis, therapy and monitoring of inflammatory processesand associated diseases. For the evaluation of Relative Riskfor Cardiovascular Disease, a High Sensitivity CRP (HSCRP)should be ordered. Final Surgical Pathology Rep riley 06-13-2021 Final Surgical Pathology Report . Pathology Reports Accession: Collected Date/Time: Received Date/Time: Pathologist: [id number] 06/11/2021 12:41 EDT 06/11/2021 14:28 EDT TANIYA [...] cm. Endometrium lining measur ing 0.1 cm [id number] measuring up to 1.8 cm with no [...] Reports Accession: Collected Date/Time: Received Date/Time: Pathologist: [id number] 06/11/2021 12:41 EDT 06/11/2021 14:28 EDT TANIYA HOLMAN MD Electronically Signed by Pathology Report verified by [facility] Electronically signed by TANIYA HOLMAN Sign out Date: 06/13/2021 14:26 Performing Lab: [address] Normal [facility] ([place]) ABO/Rh (Gel)on 06-11-2021 ABO/Rh Interp Positive Invalid Interpretation Code [facility] ([place]) Comment on above: Performed By: #### A AAKASH GRANGER #### [place] [address] ABS (Gel)on 06-11-2021 ABSC Interp (Gel) Negative Normal [facility] ([place]) Comment on above: Performed By: #### A AAKASH GRANGER #### [place] [address] LABORATORYOrdered By: Mitch Flores on 06-11-2021 ABO [...] Sign Date: 05/29/2021 2:15:07 PM Ordering Provider: MAYRA RICHARDSON [facility] ([place]) .Auto Diffon 05-28-2021 Basophil, Absolute 0.10 10 3/mcL Normal 0.00-0.27 [facility] ([place]) Comment on above: Performed By: #### A YOAN GRANGERGEL, ANEU, CBC, GFR, ADIFF, CMP #### [address] [address] Basophils/100 WBC (Bld) 1.5 % Normal 0.0-2.5 [facility] ([place]) Comment on above: Performed By: #### A ELKIN ABSGEL, ANEU, CBC, GFR, ADIFF, CMP #### [address] [address] Eosinophil, Absolute 0.20 10 3/mcL Normal 0.00-0.65 [facility] ([place]) Comment on above: Performed By: #### A JODIEEL ABSGEL, ANEU, CBC, GFR, ADIFF, CMP #### [address] [address] Eosinophils/100 WBC (Bld) 3.4 % Normal 0.0-6.0 [facility] ([place]) Comment on above: Performed By: #### A BOGEL, ABSGEL, ANEU, CBC, GFR, ADIFF, CMP #### [address] [address] Lymphocyte, Absolute 1.30 10 3/mcL Normal 0.90-4.32 [facility] ([place]) Comment on above: Performed By: #### A BOGEL, ABSGEL, ANEU, CBC, GFR, ADIFF, CMP #### [address] [address] Lymphocytes/100 WBC (Bld) 20.6 % Normal 20.0-40.0 [facility] ([place]) Comment on above: Performed By: #### A BOGEL, ABSGEL, ANEU, CBC, GFR, ADIFF, CMP #### [address] [address] Monocyte, Absolute 0.60 10 3/mcL Normal 0.09-1.40 [facility] ([place]) Comment on above: Performed By: #### A BOGEL, ABSGEL, ANEU, CBC, GFR, ADIFF, CMP #### [address] [address] Monocytes/100 WBC (Bld) 8.8 % Normal 2.0-13.0 [facility] ([place]) Comment on above: Performed By: #### A BOGEL, ABSGEL, ANEU, CBC, GFR, ADIFF, CMP #### [address] [address] Neutrophils/100 WBC (Bld) 65.7 % Normal 50.0-75.0 [facility] ([place]) Comment on above: Performed By: #### A BOGEL, ABSGEL, ANEU, CBC, GFR, ADIFF, CMP #### [address] [address] .GFRon 05-28-2021 GFR >60 Normal [facility] ([place]) Comment on above: Result Comment: GFR Population [...] ABSGEL, ANEU, CBC, GFR, ADIFF, CMP #### [address] [address] GFR Non- >60 Normal [facility] ([place]) Comment on above: Result Comment: GFR Population [...] ABSGEL, ANEU, CBC, GFR, ADIFF, CMP #### [address] [address] .NEUABSon 05-28-2021 Neutrophil, Absolute 4.20 10 3/mcL Normal 2.25-8.10 [facility] ([place]) Comment on above: Performed By: #### A ELKIN ABSGEL, ANEU, CBC, GFR, ADIFF, CMP #### [address] [address] ABO/Rh (Gel)on 05-28-2021 ABO/Rh Interp Positive Invalid Interpretation Code [facility] ([place]) Comment on above: Performed By: #### A ELKIN ABSGEL, ANEU, CBC, GFR, ADIFF, CMP #### [address] [address] ABS (Gel)on 05-28-2021 ABSC Interp (Gel) Negative Normal [facility] ([place]) Comment on above: Performed By: #### A YOAN GRANGERGEL, ANEU, CBC, GFR, ADIFF, CMP #### [address] [address] CBCon 05-28-2021 Erythrocyte distribution width (RBC) [Ratio] 15.9 % High 11.5-15.5 [facility] ([place]) Comment on above: Performed By: #### A ELKIN ABSGEL, ANEU, CBC, GFR, ADIFF, CMP #### [place] [address] Hematocrit (Bld) [Volume fraction] 44.5 % Normal 34.0-46.0 [facility] ([place]) Comment on above: Performed By: #### A AAKASH GRANGER, ANEU, CBC, GFR, ADIFF, CMP #### [place] [address] Hgb 14.5 G/dL Normal 12.0-16.0 [facility] ([place]) Comment on above: Performed By: #### A ELKIN ABSGEL, ANEU, CBC, GFR, ADIFF, CMP #### [place] [address] MCH (RBC) [Entitic mass] 25.8 pg Low 27.0-33.0 [facility] ([place]) Comment on above: Performed By: #### A ELKIN ABSGEL, ANEU, CBC, GFR, ADIFF, CMP #### [place] [address] MCHC 32.5 G/dL Normal 32.0-36.0 [facility] ([place]) Comment on above: Performed By: #### A ELKIN ABSGEL, ANEU, CBC, GFR, ADIFF, CMP #### [place] [id number] MCV (RBC) [Entitic vol] 79.2 fL Low 80.0-99.0 [facility] ([place]) Comment on above: Performed By: #### A ELKIN ABSGEL, ANEU, CBC, GFR, ADIFF, CMP #### [address] [address] Platelet 228 10 3/mcL Normal 150-450 [facility] ([place]) Comment on above: Performed By: #### A AAKASH GRANGER, ANEU, CBC, GFR, ADIFF, CMP #### [address] [address] Platelet mean volume (Bld) [Entitic vol] 9.7 fL Normal 6.6-10.5 [facility] ([place]) Comment on above: Performed By: #### A ELKIN ABSNI, ANEU, CBC, GFR, ADIFF, CMP #### [address] [address] RBC 5.62 10 6/mcL High 4.10-5.30 [facility] ([place]) Comment on above: Performed By: #### A AAKASH GRANGER, ANEU, CBC, GFR, ADIFF, CMP #### [place] [id number] WBC 6.50 10 3/mcL Normal 4.50-10.80 [facility] ([place]) Comment on above: Performed By: #### A AAKASH GRANGER, ANEU, CBC, GFR, ADIFF, CMP #### [address] [address] CMPon 05-28-2021 Albumin Level 3.4 G/dL Normal 3.2-4.8 [facility] ([place]) Comment on above: Performed By: #### A AAKASH GRANGER, ANEU, CBC, GFR, ADIFF, CMP #### [place] [address] Albumin/Globulin [Mass ratio] 1.0 {ratio} Normal 0.9-1.6 [facility] ([place]) Comment on above: Performed By: #### A AAKASH GRANGER, ANEU, CBC, GFR, ADIFF, CMP #### [address] [address] ALP [Catalytic activity/Vol] 59 U/L Normal 38-126 [facility] ([place]) Comment on above: Performed By: #### A ELKIN ABSGEL, ANEU, CBC, GFR, ADIFF, CMP #### [address] [address] ALT [Catalytic activity/Vol] 26 U/L Normal 10-49 [facility] ([place]) Comment on above: Performed By: #### A ELKIN ABSGEL, ANEU, CBC, GFR, ADIFF, CMP #### [address] [address] AST [Catalytic activity/Vol] 24 U/L Normal 8-34 [facility] ([place]) Comment on above: Performed By: #### A ELKIN ABSGEL, ANEU, CBC, GFR, ADIFF, CMP #### [address] [address] Bili Total 0.50 mg/dL Normal 0.20-1.20 [facility] ([place]) Comment on above: Result Comment: Use of this assay is not recommended for patients undergoing treatment with eltrombopag due to the potential for falsely elevated results. Performed By: #### A ELKIN, ABSGEL, ANEU, CBC, GFR, ADIFF, CMP #### [address] [address] BUN/Creatinine Ratio 19.0 ratio Normal 10.0-22.0 [facility] ([place]) Comment on above: Performed By: #### A ELKIN ABSGEL, ANEU, CBC, GFR, ADIFF, CMP #### [place] [id number] Calcium [Mass/Vol] 10.2 mg/dL Normal 8.7-10.4 [facility] ([place]) Comment on above: Result Comment: No te - New Reference Range in effect 19 Performed By: #### A BOGLEONIE, ABSGEL, ANEU, CBC, GFR, ADIFF, CMP #### [place] [id number] Chloride [Moles/Vol] 101 mmol/L Normal 98-110 [facility] ([place]) Comment on above: Performed By: #### A BOGEL, ABSGEL, ANEU, CBC, GFR, ADIFF, CMP #### [address] [address] CO2 [Moles/Vol] 36 mmol/L High 22-32 [facility] ([place]) Comment on above: Performed By: #### A ELKIN ABSNI, ANEU, CBC, GFR, ADIFF, CMP #### [address] [address] Creatinine [Mass/Vol] 0.84 mg/dL Normal 0.50-1.20 [facility] ([place]) Comment on above: Performed By: #### A BOGEL, ABSGEL, ANEU, CBC, GFR, ADIFF, CMP #### [address] [address] Electrolyte Balance 5.0 mEq/L Normal 4.0-15.0 [facility] ([place]) Comment on above: Performed By: #### A ELKIN ABSNI, ANEU, CBC, GFR, ADIFF, CMP #### [address] [address] Globulin 3.3 G/dL Normal 1.5-3.8 [facility] ([place]) Comment on above: Performed By: #### A ELKIN ABSGEL, ANEU, CBC, GFR, ADIFF, CMP #### [place] [id number] Glucose [Mass/Vol] 105 mg/dL Normal 82-115 [facility] ([place]) Comment on above: Performed By: #### A ELKIN ABSGEL, ANEU, CBC, GFR, ADIFF, CMP #### [address] [address] Potassium [Moles/Vol] 4.3 mmol/L Normal 3.5-5.0 [facility] ([place]) Comment on above: Result Comment: Spec imen slightly hemolyzed. Performed By: #### A ELKIN, ABSGEL, ANEU, CBC, GFR, ADIFF, CMP #### [address] [address] Sodium [Moles/Vol] 142 mmol/L Normal 136-145 [facility] ([place]) Comment on above: Performed By: #### A BOGEL, ABSGEL, ANEU, CBC, GFR, ADIFF, CMP #### [place] [id number] [address] [place] [address] Total Protein 6.7 G/dL Normal 5.7-8.2 [facility] ([place]) Comment on above: Result Comment: No te - New Reference Range in effect 19 Performed By: #### A AAKASH GRANGER, RICHARD, CBC, GFR, ADIFF, CMP #### [facility] [address] [place] [id number] Urea nitrogen [Mass/Vol] 16.0 mg/dL Normal 8.0-22.0 [facility] ([place]) Comment on above: Performed By: #### A AAKASH GRANGER ANEU, CBC, GFR, ADIFF, CMP #### [place] [id number] [place] [phone] LABORATORYOrdered By: Mitch Flores on 05-28-2021 ABO and Rh group Nom (Bld) Blood group A Rh(D) positive Invalid Interpretation Code AH BB Auto SS Blood group antibody screen Ql NEG (05/28/21 7:34 AM) Invalid Interpretation Code AH BB Auto SS LABORATORYOrdered By: ALLGOOB SYSTEM on 05-28-2021 Albumin BCP dye [Mass/Vol] 3.4 G/dL Invalid Interpretation Code 3.2 - 4.8 G/dL ADM SS Albumin/Globulin [Mass ratio] 1.0 {ratio} Invalid Interpretation Code 0.9 - 1.6 ratio AH ADM SS ALP [Catalytic activity/Vol] 59 U/L [...] Invalid Interpretation Code 4.0 - 15.0 mEq/L AH ADM SS Eosinophils (Bld) [#/Vol] 0.20 103/mcL Invalid Interpretation Code 0.00 - 0.65 10^3/mcL AH Remisol SS Eosinophils/100 WBC (Bld) 3.4 % Invalid Interpretation Code 0.0 - 6.0 % AH Remisol SS Erythrocyte distribution width (RBC) [Ratio] 15.9 % Invalid Interpretation Code 11.5 - 15.5 % AH Remisol SS GFR/1.73 sq M.predicted among blacks MDRD (S/P/Bld) [Vol rate/Area] ml/min/1.73sqm Invalid Interpretation Code AH Chemistry S GFR/1.73 sq M.predicted among non-blacks [...] CNOVSPon 09-21-2018 CNOVSP Visit (SP) Office ([place]) AMANDA REYNA ([id number]) 1955 F Date Time Provider Department 09/21/18 8:50 AM TIMI PARSONS During your visit today, we recorded the following information about you: Temperature Pulse Blood pressure Weight 97.2 degrees 68/minute 135/64 110.9 kg Timi Parsons MD 09/22/2018 7:20 AM Signed PATIENT NAME: Amanda Reyna. CLINIC NO: [id number]. ATTENDING PHYSICIAN: Timi Parsons MD. DATE OF [...] Robin 3.70 - 11.00 k/uL 4.38 RBC, [place] 3.90 - 5.20 m/uL 5.24 (H) Hemoglobin, Robin 11.5 - 15.5 g/dL 14.3 Hematocrit, Robin 36.0 - 46.0 % 44.5 MCV, Robin 80.0 - 100.0 fL 84.9 MCH, [place] 26.0 - 34.0 pg 27.3 MCHC, [place] 30.5 - 36.0 g/dL 32.1 RDW, [place] 11.5 - 15.0 % 14.1 Platelet Cnt, Robin 150 - 400 k/uL 213 MPV, [place] 9.0 - 12.7 fL 11.6 Absol Gran [...] Dr. Ottoniel Page Referring Provider: TIMI PARSONS [[id number]] Allergies As of Date: 09/21/2018 Noted Allergy [...] of Service: EST PATIENT VISIT LEVEL 3 [[id number]] Disposition: Return if symptoms worsen or fail [...] More... 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 Author Type: Physician Type: Progress Notes Filed: 09/22/2018 7:20 AM Note Text: PATIENT NAME: Amanda Reyna. CLINIC NO: [id number]. ATTENDING PHYSICIAN: Timi Parsons MD. DATE OF [...] Latest Ref Rng AND Units 09/17/2018 WBC, [place] 3.70 - 11.00 k/uL 4.38 RBC, Robin 3.90 - 5.20 m/uL 5.24 (H) Hemoglobin, [place] 11.5 - 15.5 g/dL 14.3 Hematocrit, [place] 36.0 - 46.0 % 44.5 MCV, [place] 80.0 - 100.0 fL 84.9 MCH, Robin 26.0 - 34.0 pg 27.3 MCHC, [place] 30.5 - 36.0 g/dL 32.1 RDW, Robin 11.5 - 15.0 % 14.1 Platelet Cnt, Robin 150 - 400 k/uL 213 MPV, Robin [...] Parsons MD Cc: Dr. Ottoniel Page Normal [facility] Ferritinon 09-17-2018 Ferritin [Mass/Vol] 41.4 ng/mL Normal 14.7-205.1 [facility] Comment on above: Performed By: #### I GABRIELLE CAMILO ####[address] [phone] Iron and TIBCon 09-17-2018 Iron [Mass/Vol] 39 ug/dL Low 41-186 [facility] Comment on above: Performed By: #### I GABRIELLE CAMILO ####[place] [id number] [place], [place] [phone] TIBC 354 ug/dL Normal 232-386 [facility] Comment on above: Performed By: #### I GABRIELLE CAMILO ####[facility] [place], [place] [phone] Transferrin Saturatn 11 % Low 15-57 [facility] Comment on above: Performed By: #### I LESLEE, FERR ####[facility] [id number] [place], [place] [phone] Robin Abs Gr + CBCon 09-17 Absol Gran Count 3.01 k/uL Normal 1.45-7.50 [facility] Erythrocyte distribution width (RBC) [Ratio] 14.1 % Normal 11.5-15.0 [facility] Hematocrit (Bld) [Volume fraction] 44.5 % Normal 36.0-46.0 [facility] Hemoglobin (Bld) [Mass/Vol] 14.3 g/dL Normal 11.5-15.5 [facility] MCH (RBC) [Entitic mass] 27.3 pg Normal 26.0-34.0 [facility] MCHC (RBC) [Mass/Vol] 32.1 g/dL Normal 30.5-36.0 [facility] MCV (RBC) [Entitic vol] 84.9 fL Normal 80.0-100.0 [facility] Platelet mean volume (Bld) [Entitic vol] 11.6 fL Normal 9.0-12.7 [facility] Comment on above: Result Comment: Test performed by: [facility] Robin, [address] [place] [address]. RBC (Bld) [#/Vol] 5.24 10*6/uL High 3.90-5.20 [facility] WBC (Bld) [#/Vol] 4.38 10*3/uL Normal 3.70-11.00 [facility] Platelet Cnt 213 k/uL Normal 150-400 [facility] Basic Metabolic Panlon 06-12 Anion gap [Moles/Vol] 10 mmol/L Normal [facility] Calcium [Mass/Vol] 9.0 mg/dL Normal 8.5-10.2 [facility] Chloride [Moles/Vol] 103 mmol/L Normal 97-105 [facility] CO2 [Moles/Vol] 26 mmol/L Normal 22-30 [facility] Creatinine [Mass/Vol] 0.60 mg/dL Normal 0.58-0.96 [facility] eGFR- Amer. >60 Normal [facility] GFR/1.73 sq M predicted among non-blacks MDRD (S/P/Bld) [Vol rate/Area] mL/min/{1.73_m2} Normal [facility] Comment on above: Result Comment: eGFR [...] GFR. Glucose [Mass/Vol] 105 mg/dL High 74-99 [facility] Potassium [Moles/Vol] 3.6 mmol/L Low 3.7-5.1 [facility] Sodium [Moles/Vol] 139 mmol/L Normal 136-144 [facility] Urea nitrogen [Mass/Vol] 8 mg/dL Normal 7-21 [facility] CNOVSPon 06-12-2018 CNOVSP Visit (SP) Office ([place]) AMANDA REYNA ([id number]) 1955 F Date Time Provider Department 06/12/18 10:00 AM TIMI PARSONS During your visit today, we recorded the following information about you: Temperature Pulse Blood pressure Weight 98.8 degrees 70/minute 114/60 108.9 kg Height 1.778 m Daniella Burden LPN, LPN 06/12/2018 10:16 AM Signed New patient, rubenuu diagnosis : iron defeincy anemia Daniella MILTON Miranda MD 06/13/2018 10:04 AM Signed Hematology and Medical Oncology PATIENT NAME: Amanda Reyna. CLINIC NO: [id number]. ATTENDING PHYSICIAN: Timi Parsons MD. DATE OF [...] Laterality Date - COLONOSCOP W/ OR W/O [facility] SPEC 04/17/2007 Colonoscopy - COLONOSCOP W/ OR W/O [facility] SPEC 09/18/2012 Colonoscopy - ERCP stone removal - LAPAROSCOPIC CHOLEYCYSTECTOMY 1989 BILE DUCT BLOCKED AND TRANSFERRED TO [place] FOR FUTHER SURGERY - PAST SURGICAL HISTORY [...] Robin 3.70 - 11.00 k/uL 4.43 RBC, [place] 3.90 - 5.20 m/uL 4.76 Hemoglobin, Robin 11.5 - 15.5 g/dL 12.6 Hematocrit, [place] 36.0 - 46.0 % 40.8 MCV, [place] 80.0 - 100.0 fL 85.7 MCH, Robin 26.0 - 34.0 pg 26.5 MCHC, Robin 30.5 - 36.0 g/dL 30.9 RDW, Robin 11.5 - 15.0 % 16.4 (H) Platelet Cnt, Robin 150 - 400 k/uL 273 MPV, [place] 9.0 - 12.7 fL 11.0 Neut%, [place] % 74.5 Lymp%, [place] % 13.1 [place]%, Robin % 8.1 Eos%, [place] % 3.2 Baso%, Robin % 1.1 Abs Neut, Robin 1.45 - 7.50 k/uL 3.30 Abs Lymp, Robin 1.00 - 4.00 k/uL 0.58 (L) Abs [place], Robin <0.87 k/uL 0.36 Abs Eos, Robin [...] with more than 50% of the total shet-rh-brnh time of the visit in counseling / coordination of care. Timi Parsons MD. ELECTRONICALLY SIGNED Cc: Dr. Arvin Danielle Referring Provider: FACUNDO KAT [[id number]] Allergies As of Date: 06/12/2018 Noted Allergy [...] type [D64.9] Order(s):FERRITIN BLD [SQFERR] Order #: [id number] FUTURE FOLATE SERUM [SQSERFOL] Order #: [id number] FUTURE METHYLMALONIC ACID [SQMMA] Order #: [id number] FUTURE RETIC COUNT [SQRETIC] Order #: [id number] FUTURE VITAMIN B12 BLOOD [SQB12] Order #: [id number] FUTURE VITAMIN B6/PYRIDOXIN [SQVITB6] Order #: [id number] FUTURE IRON + TIBC [SQIRON] Order #: [id number] FUTURE CELIAC SCREEN WITH REFLEX [SQCELSCR] Order #: [id number] FUTURE BASIC METABOLIC PNL [SQBMP] Order #: [id number] FUTURE Level of Service: NEW PATIENT VISIT LEVEL 4 [[id number]] Disposition: Return in about 1 month (around [...] MG CAPSULE,DELAYED RELEASE >> Daniella Burden LPN, LPN 06/12/2018 9:59 AM >> DANIELLA BURDEN FriJun 12, 2018 9:59 AM discontinued Problem List As Of Date 06/12/2018 Noted Resolved ESOPHAGEAL REFLUX [K21.9] More... 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 REGIONAL ENTERITIS NOS [K50.90] More... PALPITATIONS [R00.2] MYALGIA AND MYOSITIS NOS [[id number]] INVALID FOR* PLANTAR NERVE LESION [G57.60] INVALID [...] Status:Closed by TIMI PARSONS MD on 06/13/18 [facility] Celiac Scr w Reflexon 2018 IgA [Mass/Vol] 187 mg/dL Normal 78-391 [facility] Comment on above: Performed By: #### S ERFOL, MMA, IRON, B12, RETIC, FERR, CELSCR #### [place] [phone] #### VITB6 #### [place] [address] [phone] Interpretation No serologic evidenc e of celiac disease. Normal No serologic evidence of celiac disease. [facility] Comment on above: Performed By: #### S ERFOL, MMA, IRON, B12, RETIC, FERR, CELSCR #### [place] [phone] #### VITB6 #### [place] [address] [phone] Transglutaminase IgA 4 Units Normal <20 [facility] Comment on above: Result Comment: Nega tive : < 20 Units Weak Positive : 20 - 30 Units Moderate Pos to Strong Pos: >30 Units The following results were obtained with the [employer] QUANTA Lite h-tTG IgA JOHN. h-tTG IgA values obtained with different manufacturers' assay methods may not be used interchangeably. The magnitude of the reported IgA levels cannot be correlated to an endpoint titer. Performed By: #### S ERFOL, MMA, IRON, B12, RETIC, FERR, CELSCR #### [place] [phone] #### VITB6 #### [facility] [address] [place] [address] [phone] Ferritinon 06-12-2018 Ferritin [Mass/Vol] 34.6 ng/mL Normal 14.7-205.1 [facility] Comment on above: Performed By: #### S ERFOL, MMA, IRON, B12, RETIC, FERR, CELSCR #### [place] [phone] #### VITB6 #### [facility] [address] [place] [address] [phone] Folate, Serumon 06-12-2018 Folate [Mass/Vol] ng/mL Normal >4.7 [facility] Comment on above: Result Comment: A re sult of > 20 ng/mL is not necessarily indicative of a pathologic or treatable condition: it reflects a limitation of the test methodology. Assay reference range: 4.8 to 24.2 ng/mL. Suitable for detection of folate deficiency. Reference: Folate III (Folate III) [package insert V 2.0 [employer]]. [facility], [place], [place]: January 2015. Performed By: #### S ERFOL, MMA, IRON, B12, RETIC, FERR, CELSCR #### [place] [phone] #### VITB6 #### [place] [address] [phone] Iron and TIBCon 06-12-2018 Iron [Mass/Vol] 94 ug/dL Normal 41-186 [facility] Comment on above: Performed By: #### S ERFOL, MMA, IRON, B12, RETIC, FERR, CELSCR #### [place] [phone] #### VITB6 #### [place] [address] 2278 TIBC 406 ug/dL High 232-386 [facility] Comment on above: Performed By: #### S ERFOL, MMA, IRON, B12, RETIC, FERR, CELSCR #### [place] [phone] #### VITB6 #### [facility] [address] [place] [address] [phone] Transferrin Saturatn 23 % Normal 15-57 [facility] Comment on above: Performed By: #### S ERFOL, MMA, IRON, B12, RETIC, FERR, CELSCR #### [facility] [address] [place], [place] [address] #### VITB6 #### [facility] [address] [place] [address] [phone] Methylmalonic Acidon 019 Methylmalonic Acid 143 nmol/L Normal 79-376 [facility] Comment on above: Result Comment: This test was developed and its performance characteristics determined by [facility] [place] ([facility]). It has not been cleared or approved by the FDA. -[facility] is regulated under CLIA as qualified to perform high-complexity testing. This test is used for clinical purposes. It should not be regarded as investigational or for research. Performed By: #### S ERFOL, MMA, IRON, B12, RETIC, FERR, CELSCR ####[facility] [address] [place], [place] [phone]#### VITB6 ####[facility] [address] [place], [place] [phone] PROGRESSon 06-12-2018 PROGRESS HNO ID: [id number] Author: Timi Parsons Service: ? Author Type: Physician Type: Progress Notes Filed: 06/13/2018 10:04 AM Note Text: Hematology and Medical Oncology PATIENT NAME: Amanda Reyna. CLINIC NO: [id number]. ATTENDING PHYSICIAN: Timi Parsons MD. DATE OF [...] Laterality Date - COLONOSCOP W/ OR W/O [facility] SPEC 04/17/2007 Colonoscopy - COLONOSCOP W/ OR W/O [facility] SPEC 09/18/2012 Colonoscopy - ERCP stone removal - LAPAROSCOPIC CHOLEYCYSTECTOMY 1989 BILE DUCT BLOCKED AND TRANSFERRED TO [place] FOR FUTHER SURGERY - PAST SURGICAL HISTORY [...] Robin 3.90 - 5.20 m/uL 4.76 Hemoglobin, [place] 11.5 - 15.5 g/dL 12.6 Hematocrit, [place] 36.0 - 46.0 % 40.8 MCV, [place] 80.0 - 100.0 fL 85.7 MCH, Robin 26.0 - 34.0 pg 26.5 MCHC, Robin 30.5 - 36.0 g/dL 30.9 RDW, [place] 11.5 - 15.0 % 16.4 (H) Platelet Cnt, [place] 150 - 400 k/uL 273 MPV, [place] 9.0 - 12.7 fL 11.0 Neut%, [place] % 74.5 Lymp%, [place] % 13.1 [place]%, Robin % 8.1 Eos%, [place] % 3.2 Baso%, Robin % 1.1 Abs Neut, Robin 1.45 - 7.50 k/uL 3.30 Abs Lymp, [place] 1.00 - 4.00 k/uL 0.58 (L) Abs [place], Robin <0.87 k/uL 0.36 Abs Eos, Robin [...] with more than 50% of the total tyww-vt-xedr time of the visit in counseling / coordination of care. Timi Parsons MD. ELECTRONICALLY SIGNED Cc: Dr. Arvin Danielle Normal [facility] Reticulocyteon 06-12-2018 Abs Retic 0.086 M/uL Normal 0.0180-0.10 00 [facility] Comment on above: Performed By: #### S ERFOL, MMA, IRON, B12, RETIC, FERR, CELSCR #### [facility] [employer] [address] [place] [phone] #### VITB6 #### [facility] [address] [place] [address] [phone] Retic% 1.8 % Normal 0.4-2.0 [facility] Comment on above: Performed By: #### S ERFOL, MMA, IRON, B12, RETIC, FERR, CELSCR #### [facility] [employer] [address] [place] [phone] #### VITB6 #### [facility] [address] [place] [address] [phone] Staff Rev w CBCDIFon 019 Abs Baso 0.09 k/uL Normal <0.11 [facility] Comment on above: Performed By: #### S ANTHONY #### [place] [phone] Abs [place] 0.40 k/uL Normal <0.87 [facility] Comment on above: Performed By: #### S ANTHONY #### [place] [phone] Abs Neut 3.04 k/uL Normal 1.45-7.50 [facility] Comment on above: Performed By: #### S ANTHONY #### [facility] [address] [place] [phone] Absolute nRBC <0.01 Normal <0.01 [facility] Comment on above: Performed By: #### S ANTHONY #### [facility] [employer] [address] [place] [phone] Basophils/100 WBC (Bld) 2.1 % Normal [facility] Comment on above: Performed By: #### S ANTHONY #### [place] [address] [place] [phone] DTYPE Auto Diff Normal [facility] Comment on above: Performed By: #### S ANTHONY #### [facility] [employer] [facility] [place] [phone] Eosinophils (Bld) [#/Vol] 0.16 10*3/uL Normal <0.46 [facility] Comment on above: Performed By: #### S ANTHONY #### [place] [address] [place] [phone] Eosinophils/100 WBC (Bld) 3.7 % Normal [facility] Comment on above: Performed By: #### S ANTHONY #### [place] [address] [place] [phone] Erythrocyte distribution width (RBC) [Ratio] 16.0 % High 11.5-15.0 [facility] Comment on above: Performed By: #### S ANTHONY #### [place] [address] [place] [phone] Hematocrit (Bld) [Volume fraction] 42.0 % Normal 36.0-46.0 [facility] Comment on above: Performed By: #### S ANTHONY #### [facility] [employer] [facility] [place] [phone] Hemoglobin (Bld) [Mass/Vol] 12.5 g/dL Normal 11.5-15.5 [facility] Comment on above: Performed By: #### S ANTHONY #### [place] [address] [place], [place] [address] Lymphocytes (Bld) [#/Vol] 0.59 10*3/uL Low 1.00-4.00 [facility] Comment on above: Performed By: #### S ANTHONY #### [address] [address] Lymphocytes/100 WBC (Bld) 13.7 % Normal [facility] Comment on above: Performed By: #### S ANTHONY #### [address] [address] MCH (RBC) [Entitic mass] 26.0 pG Normal 26.0-34.0 [facility] Comment on above: Performed By: #### S ANTHONY #### [address] [address] MCHC (RBC) [Mass/Vol] 29.8 g/dL Low 30.5-36.0 [facility] Comment on above: Performed By: #### S ANTHONY #### [address] [address] MCV (RBC) [Entitic vol] 87.5 fL Normal 80.0-100.0 [facility] Comment on above: Performed By: #### S ANTHONY #### [place] [address] [place], [place] [address] Monocytes/100 WBC (Bld) 9.3 % Normal C [facility] Comment on above: Performed By: #### S ANTHONY #### [place] [address] [place], [place] [address] Neutrophils/100 WBC (Bld) 71.2 % Normal [facility] Comment on above: Performed By: #### S ANTHONY #### [facility] [employer] [facility] [place] [address] NRBCs 0.0 /100 WBC Normal 0 [facility] Comment on above: Performed By: #### S ANTHONY #### [place] [address] Pathologist Cyto stain Nom (Cvx/Vag) [ID] The Staff Review on this sample was cancelled because the hematology analyzer did not flag any parameters as requiring manual review. If there is a specific clinical concern for which you would like a staff pathologist to review the blood smear, please call Lab Client Services within 28 days. Normal [facility] Comment on above: Result Comment: Acco unt Credited Performed By: #### S ANTHONY #### [place] [phone] Platelet mean volume (Bld) [Entitic vol] 11.8 fL Normal 9.0-12.7 [facility] Comment on above: Performed By: #### S ANTHONY #### [place] [address] Platelets (Bld) [#/Vol] 296 10*3/uL Normal 150-400 [facility] Comment on above: Performed By: #### S ANTHONY #### [place] [phone] RBC (Bld) [#/Vol] 4.80 10*6/uL Normal 3.90-5.20 [facility] Comment on above: Performed By: #### S ANTHONY #### [place] [address] Staff Review SEE COMMENT Normal [facility] Comment on above: Result Comment: The Staff Review on this sample was cancelled because the hematology analyzer did not flag any parameters as requiring manual review. If there is a specific clinical concern for which you would like a staff pathologist to review the blood smear, please call Lab Client Services within 28 days. Account Credited Performed By: #### S ANTHONY #### [facility] [address] [place] [address] WBC (Bld) [#/Vol] 4.30 10*3/uL Normal 3.70-11.00 [facility] Comment on above: Performed By: #### S ANTHONY #### [place] [address] Vitamin B12on 06-12-2018 Cobalamin (Vitamin B12) [Mass/Vol] 807 pg/mL Normal 232-1245 [facility] Comment on above: Performed By: #### S ERFOL, MMA, IRON, B12, RETIC, FERR, CELSCR #### [place] [address] #### VITB6 #### [employer] [address] [address] [phone] Vitamin B6 Plasmaon 06-13-19 19 Vitamin B6 Plasma 48.4 nmol/L Normal 20.0-125.0 [facility] Comment on above: Result Comment: (NOT E) INTERPRETIVE INFORMATION: Vitamin B6 (Pyridoxal 5-Phosphate) Pyridoxal 5'-phosphate measured in a specimen collected following an 8-hour or overnight fast accurately indicates vitamin B6 nutritional status. Non-fasting specimen concentration reflects recent vitamin intake. Test developed and characteristics determined by [employer]. See Compliance Statement B: [employer] Performed by [employer], [address] [place] [id number] [email or web address], Eulogio Briones MD, Lab. Director Performed By: #### S ERFOL, MMA, IRON, B12, RETIC, FERR, CELSCR #### [place] [address] #### VITB6 #### [employer] [address] [address] [phone] Robin CBC and Diffon 06-12 Basophils/100 WBC (Bld) 1.1 % Normal [facility] Eosinophils/100 WBC (Bld) 3.2 % Normal [facility] Erythrocyte distribution width (RBC) [Ratio] 16.4 % High 11.5-15.0 [facility] Hematocrit (Bld) [Volume fraction] 40.8 % Normal 36.0-46.0 [facility] Hemoglobin (Bld) [Mass/Vol] 12.6 g/dL Normal 11.5-15.5 [facility] Lymphocytes/100 WBC (Bld) 13.1 % Normal [facility] MCH (RBC) [Entitic mass] 26.5 pg Normal 26.0-34.0 [facility] MCHC (RBC) [Mass/Vol] 30.9 g/dL Normal 30.5-36.0 [facility] MCV (RBC) [Entitic vol] 85.7 fL Normal 80.0-100.0 [facility] Neutrophils/100 WBC (Bld) 74.5 % Normal [facility] Platelet mean volume (Bld) [Entitic vol] 11.0 fL Normal 9.0-12.7 [facility] Comment on above: Result Comment: Test performed by: [facility], [address] [place] [address]. [place] [address]. RBC (Bld) [#/Vol] 4.76 10*6/uL Normal 3.90-5.20 [facility] WBC (Bld) [#/Vol] 4.43 10*3/uL Normal 3.70-11.00 [facility] Abs Baso 0.05 k/uL Normal <0.11 [facility] Abs Eos 0.14 k/uL Normal <0.46 [facility] Abs Lymp 0.58 k/uL Low 1.00-4.00 [facility] Abs [place] 0.36 k/uL Normal <0.87 [facility] Abs Neut 3.30 k/uL Normal 1.45-7.50 [facility] [place]% 8.1 % Normal [facility] Platelet Cnt 273 k/uL Normal 150-400 [facility] Vital Signs Date Time Vital Sign Value Performing Clinician Facility 09-21-2024 09:01-0400 Body height 177.8 cm Dominik Medeiros [employer] Work Phone: [place] 09-21-2024 09:01-0400 Body mass index (BMI) [Ratio] 35.87 kg/m2 Dominik Brandsus [employer] Work Phone: [place] 09-21-2024 09:01-0400 Body temperature 97 [degF] Dominik Brandsus [employer] Work Phone: [place] 09-21-2024 09:01-0400 Body weight 113.4 kg Dominik Pisanos [employer] Work Phone: [place] 09-21-2024 09:01-0400 Diastolic blood pressure 64 mm[Hg] Dominik Pisanos [employer] Work Phone: [place] 09-21-2024 09:01-0400 Heart rate 61 /min Dominik Brandsus [employer] Work Phone: [place] 09-21-2024 09:01-0400 Respiratory rate 19 /min Dominik Brandsus [employer] Work Phone: [place] 09-21-2024 09:01-0400 SaO2% (BldA) [Mass fraction] 98 % Dominik Brandsus [employer] Work Phone: [place] 09-21-2024 09:01-0400 Systolic blood pressure 136 mm[Hg] Dominik Brandsus [employer] Work Phone: [place] 09-10-2024 05:09-0400 Body mass index (BMI) [Ratio] 35.4 kg/m2 Dr. Ottoniel Page DO Work Phone: [facility] 09-10-2024 05:09-0400 Body temperature 98 [degF] Dr. Ottoniel Page DO Work Phone: [facility] 09-10-2024 05:09-0400 Body weight 112.[address] Ottoniel Page DO Work Phone: [facility] [facility]24 05:09-0400 Diastolic blood pressure 58 mm[Hg] Dr. Ottoniel Page DO Work Phone: [facility] 09-10-2024 05:09-0400 Heart rate 69 /min Dr. Ottoniel Page DO Work Phone: [facility] 09-10-2024 05:09-0400 Respiratory rate 18 /min Dr. Ottoniel Page DO Work Phone: [facility] 09-10-2024 05:09-0400 SaO2% (BldA) [Mass fraction] 96 % Dr. Ottoniel Page DO Work Phone: [facility] 09-10-2024 05:09-0400 Systolic blood pressure 115 mm[Hg] Dr. Ottoniel Page DO Work Phone: [facility] 09-09-2024 21:56-0400 Inhaled oxygen concentration 21 % Dr. Ottoniel Page DO Work Phone: [facility] 09-09-2024 06:32-0400 Inhaled oxygen flow rate 2 L/min Dr. Ottoniel Page DO Work Phone: [facility] 09-06-2024 14:26-0400 Body height 177.[address] Ottoniel Page DO Work Phone: [facility] 08-29-2024 07:59-0400 Body temperature 98.1 [degF] Magalie Brown DO Work Phone: [place] 08-29-2024 07:59-0400 Diastolic blood pressure 55 mm[Hg] Magalie Brown DO Work Phone: [place] 08-29-2024 07:59-0400 Heart rate 65 /min Magalie Kevin DO Work Phone: [place] 08-29-2024 07:59-0400 Respiratory rate 18 /min Magalie Kevin DO Work Phone: 4(031)[phone] [address] 08-29-2024 07:59-0400 SaO2% (BldA) [Mass fraction] 95 % Magalie Kevin DO Work Phone: 2(081)[phone] [address] 08-29-2024 07:59-0400 Systolic blood pressure 113 mm[Hg] Magalie Kevin DO Work Phone: 4(596)[phone] [place] [address] 08-18-2024 01:15-0400 Body height 177.8 cm Magalie Kevin DO Work Phone: 1(232)[phone] [place] [address] 08-18-2024 01:15-0400 Body mass index (BMI) [Ratio] 33.06 kg/m2 Magalie Kevin DO Work Phone: 1(846)[phone] [address] 08-18-2024 01:15-0400 Body weight 104.51 kg Magaliejess ParnellKevin DO Work Phone: 3(543)[phone] [address] 08-17-2024 20:32-0400 Body height 177.[address] Ottoniel Page DO Work Phone: [facility] 08-17-2024 20:32-0400 Body mass index (BMI) [Ratio] 36.8 kg/m2 Dr. Ottoniel Page DO Work Phone: [facility] 08-17-2024 20:32-0400 Body weight 116.[address] Ottoniel Page DO Work Phone: [facility] 08-17-2024 20:23-0400 Body temperature 98 [degF] Dr. Ottoniel Page DO Work Phone: [facility] 08-17-2024 20:23-0400 Diastolic blood pressure 67 mm[Hg] Dr. Ottoniel Page DO Work Phone: [facility] 08-17-2024 20:23-0400 Heart rate 77 /min Dr. Ottoniel Page DO Work Phone: [facility] 08-17-2024 20:23-0400 Respiratory rate 19 /min Dr. Ottoniel Page DO Work Phone: [facility] 08-17-2024 20:23-0400 SaO2% (BldA) [Mass fraction] 99 % Dr. Ottoniel Page DO Work Phone: [facility] 08-17-2024 20:23-0400 Systolic blood pressure 130 mm[Hg] Dr. Ottoniel Page DO Work Phone: [facility] 08-15-2024 02:58-0400 Body temperature 98.2 [degF] Dr. Ottoniel Page DO Work Phone: [facility] 08-15-2024 02:58-0400 Diastolic blood pressure 55 mm[Hg] Dr. Ottoniel Page DO Work Phone: [facility] 08-15-2024 02:58-0400 Heart rate 75 /min Dr. Ottoniel Page DO Work Phone: [facility] 08-15-2024 02:58-0400 Respiratory rate 16 /min Dr. Ottoniel Page DO Work Phone: [facility] 08-15-2024 02:58-0400 SaO2% (BldA) [Mass fraction] 95 % Dr. Ottoniel Page DO Work Phone: [facility] 08-15-2024 02:58-0400 Systolic blood pressure 102 mm[Hg] Dr. Ottoniel Page DO Work Phone: [facility] 08-15-2024 01:47-0400 Body height 177.[address] Ottoniel Page DO Work Phone: [facility] 08-15-2024 01:47-0400 Body mass index (BMI) [Ratio] 37.5 kg/m2 Dr. Ottoniel Page DO Work Phone: [facility] 08-15-2024 01:47-0400 Body weight 118.[address] Ottoniel Page DO Work Phone: [facility] 08-10-2024 08:31-0400 Body height 177.[address] Ottoniel Page DO Work Phone: [facility] 08-10-2024 08:31-0400 Body mass index (BMI) [Ratio] 36.3 kg/m2 Dr. Ottoniel Page DO Work Phone: [facility] 08-10-2024 08:31-0400 Body weight 114.[address] Ottoniel Page DO Work Phone: [facility] 08-10-2024 08:31-0400 Diastolic blood pressure 73 mm[Hg] Dr. Ottoniel Page DO Work Phone: [facility] 08-10-2024 08:31-0400 Heart rate 74 /min Dr. Ottoniel Page DO Work Phone: [facility] 08-10-2024 08:31-0400 Respiratory rate 16 /min Dr. Ottoniel Page DO Work Phone: [facility] 08-10-2024 08:31-0400 Systolic blood pressure 117 mm[Hg] Dr. Ottoniel Page DO Work Phone: [facility] 05-27-2024 14:51-0400 Body temperature 97.9 [degF] Dr. Ottoniel Page DO Work Phone: [facility] 05-27-2024 14:51-0400 Diastolic blood pressure 51 mm[Hg] Dr. Ottoniel Page DO Work Phone: [facility] 05-27-2024 14:51-0400 Heart rate 69 /min Dr. Ottoniel Page DO Work Phone: [facility] 05-27-2024 14:51-0400 Respiratory rate 16 /min Dr. Ottoniel Page DO Work Phone: [facility] 05-27-2024 14:51-0400 SaO2% (BldA) [Mass fraction] 93 % Dr. Ottoniel Page DO Work Phone: [facility] 05-27-2024 14:51-0400 Systolic blood pressure 104 mm[Hg] Dr. Ottoniel Page DO Work Phone: [facility] 05-27-2024 14:00-0400 Inhaled oxygen flow rate 2 L/min Dr. Ottoniel Page DO Work Phone: [facility] 05-27-2024 10:40-0400 Body height 177.[address] Ottoniel Page DO Work Phone: [facility] 05-27-2024 10:40-0400 Body mass index (BMI) [Ratio] 36 kg/m2 Dr. Ottoniel Page DO Work Phone: [facility] 05-27-2024 10:40-0400 Body weight 113.[address] Ottoniel Page DO Work Phone: [facility] 08-08-2022 08:38-0400 Body height 177.[address] Ottoniel Page Work Phone: [facility] 08-08-2022 08:38-0400 Body mass index (BMI) [Ratio] 37.4 kg/m2 Dr. Ottoniel Page Work Phone: [facility] 08-08-2022 08:38-0400 Body weight 118.[address] Ottoniel Page Work Phone: [facility] 08-08-2022 08:38-0400 Diastolic blood pressure 79 mm[Hg] Dr. Ottoniel Page Work Phone: [facility] 08-08-2022 08:38-0400 Heart rate 80 /min Dr. Ottoniel Page Work Phone: [facility] 08-08-2022 08:38-0400 Respiratory rate 20 /min Dr. Ottoniel Page Work Phone: [facility] 08-08-2022 08:38-0400 SaO2% (BldA) [Mass fraction] 97 % Dr. Ottoniel Page Work Phone: [facility] 08-08-2022 08:38-0400 Systolic blood pressure 130 mm[Hg] Dr. Ottoniel Page Work Phone: [facility] 08-07-2021 13:16-0400 Body height 177.[address] Ottoniel Page Work Phone: [facility] Work Phone: 08-07-2021 13:16-0400 Body mass index (BMI) [Ratio] 37 kg/m2 Dr. Ottoniel Page Work Phone: [facility] Work Phone: 08-07-2021 13:16-0400 Body weight 117.[address] Ottoniel Page Work Phone: [facility] Work Phone: 08-07-2021 13:16-0400 Diastolic blood pressure 80 mm[Hg] Dr. Ottoniel Page Work Phone: [facility] Work Phone: 08-07-2021 13:16-0400 Heart rate 63 /min Dr. Ottoniel Page Work Phone: [facility] Work Phone: 08-07-2021 13:16-0400 Respiratory rate 18 /min Dr. Ottoniel Page Work Phone: [facility] Work Phone: 08-07-2021 13:16-0400 SaO2% (BldA) [Mass fraction] 95 % Dr. Ottoniel Page Work Phone: [facility] Work Phone: 08-07-2021 13:16-0400 Systolic blood pressure 124 mm[Hg] Dr. Ottoniel Page Work Phone: [facility] Work Phone: 08-07-2021 13:16-0400 Body height 177.[address] Ottoniel Page Work Phone: [facility] Work Phone: 08-07-2021 13:16-0400 Body mass index (BMI) [Ratio] 37 kg/m2 Dr. Ottoniel Page Work Phone: [facility] Work Phone: 08-07-2021 13:16-0400 Body weight 117.[address] Ottoniel Page Work Phone: [facility] Work Phone: 08-07-2021 13:16-0400 Diastolic blood pressure 80 mm[Hg] Dr. Ottoniel Page Work Phone: [facility] Work Phone: 08-07-2021 13:16-0400 Heart rate 63 /min Dr. Ottoniel Page Work Phone: [facility] Work Phone: 08-07-2021 13:16-0400 Respiratory rate 18 /min Dr. Ottoniel Page Work Phone: [facility] Work Phone: 08-07-2021 13:16-0400 SaO2% (BldA) [Mass fraction] 95 % Dr. Ottoniel Page Work Phone: [facility] Work Phone: 08-07-2021 13:16-0400 Systolic blood pressure 124 mm[Hg] Dr. Ottoniel Page Work Phone: [facility] Work Phone: 06-11-2021 18:55-0400 Body temperature 97.88 [degF] GERARDO OHOKS MD [facility] 06-11-2021 18:55-0400 Diastolic blood pressure 65 mm[Hg] GERRADO HOOKS MD [facility] 06-11-2021 18:55-0400 Heart rate 70 /min GERARDO HOOKS MD [facility] 06-11-2021 18:55-0400 Respiratory rate 18 /min GERARDO HOOKS MD [facility] 06-11-2021 18:55-0400 Systolic blood pressure 111 mm[Hg] GERARDO HOOKS MD [facility] 06-11-2021 15:20-0400 Body temperature 97.7 [degF] GERARDO HOOKS MD [facility] 06-11-2021 15:20-0400 Diastolic blood pressure 70 mm[Hg] GERARDO HOOKS MD [facility] 06-11-2021 15:20-0400 Heart rate 68 /min GERARDO HOOKS MD [facility] 06-11-2021 15:20-0400 Mean blood pressure 85 mm[Hg] GERARDO HOOKS MD [facility] 06-11-2021 15:20-0400 Reason For Taking VItal Signs GERARDO HOOKS MD [facility] 06-11-2021 15:20-0400 Respiratory rate 16 /min GERARDO HOOKS MD [facility] 06-11-2021 15:20-0400 Systolic blood pressure 114 mm[Hg] GERARDO HOOKS MD [facility] 06-11-2021 14:56-0400 Body temperature 97.52 [degF] GERARDO HOOKS MD [facility] 06-11-2021 14:56-0400 Diastolic Blood Pressure NBP 58 1 GERARDO HOOKS MD [facility] 06-11-2021 14:56-0400 Heart rate 74 /min GERARDO HOOKS MD [facility] 06-11-2021 14:56-0400 Mean blood pressure 71 mm[Hg] GERARDO HOOKS MD [facility] 06-11-2021 14:56-0400 Respiratory rate 16 /min GERARDO HOOKS MD [facility] 06-11-2021 14:56-0400 Systolic Blood Pressure NBP 110 1 GERARDO HOOKS MD [facility] 06-11-2021 14:25-0400 Diastolic Blood Pressure NBP 52 1 GERARDO HOOKS MD [facility] 06-11-2021 14:25-0400 Heart rate 70 /min GERARDO HOOKS MD [facility] 06-11-2021 14:25-0400 Mean blood pressure 67 mm[Hg] GERARDO HOOKS MD [facility] 06-11-2021 14:25-0400 Systolic Blood Pressure NBP 114 1 GERARDO HOOKS MD [facility] 06-11-2021 14:08-0400 Diastolic Blood Pressure NBP 58 1 GERARDO HOOKS MD [facility] 06-11-2021 14:08-0400 Mean blood pressure 74 mm[Hg] GERARDO HOOKS MD [facility] 06-11-2021 14:08-0400 Systolic Blood Pressure NBP 123 1 GERARDO HOOKS MD [facility] 06-11-2021 13:38-0400 Body temperature 97.52 [degF] GERARDO HOOKS MD [facility] 06-11-2021 13:05-0400 Body temperature 98.42 [degF] GERARDO HOOKS MD [facility] 06-11-2021 13:00-0400 Body temperature 98.58 [degF] GERARDO HOOKS MD [facility] 06-11-2021 12:55-0400 Body temperature 98.67 [degF] GERARDO HOOKS MD [facility] 06-11-2021 08:34-0400 Body height 177.8 cm GERARDO HOOKS MD [facility] 06-11-2021 08:34-0400 Body weight 117.1 kg GERARDO HOOKS MD [facility] 06-11-2021 08:34-0400 Diastolic blood pressure 70 mm[Hg] GERARDO HOOKS MD [facility] 06-11-2021 08:34-0400 Heart rate 70 /min GERARDO HOOKS MD [facility] 06-11-2021 08:34-0400 Systolic blood pressure 123 mm[Hg] GERARDO HOOKS MD [facility] 05-28-2021 07:48-0400 Body height 177 cm GERARDO HOOKS MD [facility] 05-28-2021 07:48-0400 Body temperature 97.88 [degF] GERARDO HOOKS MD [facility] 05-28-2021 07:48-0400 Body weight 119.5 kg GERARDO HOOKS MD [facility] 05-28-2021 07:48-0400 diastolic 75 mm[Hg] GERARDO HOOKS MD [facility] 05-28-2021 07:48-0400 Heart rate 75 /min GERARDO HOOKS MD [facility] 05-28-2021 07:48-0400 systolic 124 mm[Hg] GERARDO HOOKS MD [facility] Encounters Encounter Date Encounter Type Care Provider Facility Start: 11-03-2024 End: 11-03-2024 ambulatory Daly Eliane Facility:[facility] Start: 11-01-2024 ambulatory [facility] Facility: [facility] Start: 10-14-2024 End: 10-14-2024 ambulatory [facility] [place] Start: 10-08-2024 End: 10-08-2024 ambulatory [facility] [place] Start: 10-01-2024 End: 10-01-2024 ambulatory [facility] Facility:[facility] Start: 09-23-2024 End: 09-23-2024 ambulatory [facility] Facility:[facility] Start: 09-21-2024 End: 09-21-2024 Postop follow up visit related to original px Dominikbrad Medeiros [employer]ER DELIVERER Work Phone: [facility] Comment on above: Cerebral AVM (Primar y Dx); Vestibular schwannoma; AVM (arteriovenous malformation) Start: 09-21-2024 ambulatory [facility] y:[facility] Start: 09-20-2024 End: 09-20-2024 ambulatory [facility] Facility:[facility] Start: 09-17-2024 End: 09-17-2024 ambulatory Vicenta Adrienne Facility:[facility] Start: 09-09-2024 Non-patient / Non-visit Dr. Gerald Deleon [facility] Work Phone: Start: 09-07-2024 Non-patient / Non-visit Dr. Gerald Deleon [facility] Work Phone: Start: 09-06-2024 Non-patient / Non-visit Dr. Gerald Deleon [facility] Work Phone: Start: 09-03-2024 Non-patient / Non-visit Dr. Gerald Deleon [facility] Work Phone: Start: 09-02-2024 Non-patient / Non-visit Dr. Gerald Deleon [facility] Work Phone: Start: 08-31-2024 Non-patient / Non-visit Dr. Gerald Deleon [facility] Work Phone: Start: 08-30-2024 Non-patient / Non-visit Dr. Gerald Deleon [facility] Work Phone: Start: 08-29-2024 ambulatory Debi Deleon [place] Start: 08-29-2024 End: 09-10-2024 Evaluation and management of inpatient Dr. Debi Deleon DO -Rehab Unit Work Phone: Start: 08-17-2024 End: 08-29-2024 Evaluation and management of inpatient Magalie Castillollister DO Work Phone: [facility] Start: 08-17-2024 End: 08-17-2024 ambulatory UNKNOWN PROVIDER Facility:[facility] Start: 08-17-2024 End: 08-17-2024 Emergency department patient visit Dr. Ottoniel Page DO Work Phone: -Emergency Department Work Phone: Start: 08-15-2024 End: 08-15-2024 Emergency department patient visit Dr. Ottoniel Page DO Work Phone: -Emergency Department Work Phone: Start: 08-10-2024 End: 08-10-2024 Patient encounter procedure Janeth Wilcox DC -[facility] Work Phone: Start: 08-10-2024 End: 08-10-[address] Ottoniel Page DO Work Phone: [facility] Work Phone: Start: 08-04-2024 End: 08-04-[address] Ottoniel Page DO Work Phone: [facility] Work Phone: Start: 08-04-2024 End: 08-04-[address] Ottoniel Page DO -Outpatient Breast Imaging Work Phone: Start: 08-04-2024 End: 08-04-2024 ambulatory [facility] Facility:[facility] Start: 07-20-2024 ambulatory [facility]: [facility] Start: 07-20-[address] Jethro Avila DO -Occupational Therapy Work Phone: Start: 06-08-2024 ambulatory [facility] Facility: [facility] Start: 05-27-2024 End: 05-27-2024 Admission to same day surgery center Dr. Bruno Avila DO -Surgical Day Care Start: 05-27-2024 End: 05-27-[address] Ottoniel Page DO Work Phone: [facility] Work Phone: Start: 05-21-2024 End: 05-21-2024 ambulatory [facility] Start: 05-21-2024 End: 05-21-2024 Non-patient / Non-visit Dr. Daphne Manuel MD -[facility] Work Phone: Start: 05-10-2024 End: 05-10-[address] [facility] Start: 05-10-[address] Facundo win MD -Laboratory, [place] Work Phone: Start: 05-10-2024 End: 05-10-[address] Ottoniel Page DO Work Phone: [facility] Work Phone: Start: 04-20-2024 End: 04-20-2024 Patient encounter procedure Daly Del Rio -Radiology, [place] Work Phone: Start: 04-20-2024 End: 04-20-2024 ambulatory [facility] Facility:[facility] Start: 01-05-2024 End: 01-05-2024 ambulatory [facility] Facility:[facility] Start: 07-05-2023 End: 07-05-2023 ambulatory [facility] Work Phone: Start: 07-05-2023 End: 07-05-2023 Patient encounter procedure [facility]-Laboratory Work Phone: Start: 06-20-2023 End: 07-08-2023 ambulatory [facility] Work Phone: Start: 06-20-2023 End: 07-08-2023 Discharged Recurring [facility]-Laboratory, [place] Work Phone: Start: 02-21-2023 Non-patient / Non-visit Dr. Gerald Page Work Phone: [facility] Start: 02-21-2023 End: 02-21-[address] Ottoniel Page Work Phone: [facility] Work Phone: Start: 02-21-2023 End: 02-21-[address] Ottoniel Page Work Phone: [facility]-Cardiovascula r Services Work Phone: Start: 11-22-2022 End: 11-22-[address] Ottoniel Page Work Phone: [facility] Work Phone: Start: 11-22-2022 End: 11-22-[address] Ottoniel Page Work Phone: [facility]-Laboratory, Nba Rosenthal [facility] Start: 10-21-2022 End: 10-21-[address] Ottoniel Page Work Phone: [facility] Work Phone: Start: 10-21-2022 End: 10-21-[address] Ottoniel Page Work Phone: [facility]-Ultrasound, [facility] Work Phone: Start: 09-20-2022 End: 09-20-[address] Ottoniel Page Work Phone: [facility] Work Phone: Start: 09-20-2022 End: 09-20-[address] Ottoniel Page Work Phone: [facility] Work Phone: Start: 08-08-2022 End: 08-08-[address] Ottoniel Page Work Phone: [facility] Work Phone: Start: 04-22-2022 End: 04-22-[address] Ottoniel Page Work Phone: [facility] Work Phone: Start: 04-22-2022 End: 04-22-[address] Ottoniel Page Work Phone: [facility] [place] art objects repairer Off Start: 03-21-2022 End: 03-21-[address] Ottoniel Page Work Phone: [facility] Work Phone: Start: 03-21-2022 End: 03-21-[address] Ottoniel Page Work Phone: [facility] Start: 01-02-2022 End: 01-02-2022 ambulatory [facility] Work Phone: Start: 01-02-2022 End: 01-02-2022 Patient encounter procedure [facility]-Pulmonary Services/Neurology Start: 01-02-2022 Non-patient / Non-visit Dr. Gerald Page Work Phone: [facility] Start: 11-27-2021 End: 11-27-[address] Ottoniel Page Work Phone: [facility] Work Phone: Start: 11-27-2021 End: 11-27-[address] Ottoniel Page Work Phone: [facility]-Laboratory, Specimen Start: 09-14-2021 End: 09-14-[address] Ottoniel Page Work Phone: [facility] Start: 08-15-2021 End: 08-15-[address] Ottoniel Page Work Phone: [facility] Start: 08-08-2021 End: 08-08-[address] [facility] Start: 08-07-2021 End: 08-08-[address] Ottoniel Page Work Phone: [facility] Start: 08-02-2021 End: 08-02-[address] Ottoniel Page Work Phone: [facility] Start: 06-27-2021 End: 06-27-2021 Patient encounter procedure GERARDO HOOKS MD [facility] Start: 06-11-2021 End: 06-11-2021 SAME DAY STAY GERARDO HOOKS MD [facility] Start: 05-28-2021 End: 05-28-2021 Admission to [facility] GERARDO HOOKS MD [facility] Start: 04-25-2021 End: 04-25-2021 Patient encounter procedure GERARDO HOOKS MD [facility] Procedures Date Procedure Procedure Detail Performing Clinician Start: 09-07-2024 Folic acid measurement, RBC Dr. Ottoniel yee DO Work Phone: Comment on above: Performed at: [facility] [place], [place] [id number] Director: Facundo Gray PhD, Phone: [phone] Start: 09-03-[address] Ottoniel Page DO Work Phone: Start: 08-30-2024 Serum inorganic phosphate measurement Dr. Ottoniel Page DO Work Phone: Start: 08-30-2024 Total iron binding capacity measurement Dr. Ottoniel Page DO Work Phone: Start: 08-29-2024 Assay of magnesium Luci D Dye [employer] AGENT-PAPER DELIVERER Work Phone: Start: 08-28-2024 Assay of magnesium Luci D Dye [employer] AGENT-PAPER DELIVERER Work Phone: Start: 08-27-2024 Assay of magnesium Luci D Dye [employer] AGENT-PAPER DELIVERER Work Phone: Start: 08-26-2024 Ct head/brain w/o contrast material Arvin Guillaume MD Work Phone: Start: 08-26-2024 Assay of magnesium Luci D Dye [employer] FI[employer] AGENT-PAPER DELIVERER Work Phone: Start: 08-25-2024 Assay of magnesium Luci D Dye [employer] FI[employer] AGENT-PAPER DELIVERER Work Phone: Start: 08-24-2024 Electroencephalogram w/rec awake&drowsy Arvin Guillaume MD Work Phone: Start: 08-24-2024 Mri brain brain stem w/o w/contrast material Arvin Guillaume MD Work Phone: Start: 08-24-2024 Ct head/brain w/o contrast material Arvin Guillaume MD Work Phone: Start: 08-24-2024 Assay of magnesium Luci D Dye [employer] AGENT-PAPER DELIVERER Work Phone: Start: 08-24-2024 Culture bct isol&prsmptv id isolate ea urine Raul Bernard MD Work Phone: Start: 08-24-2024 EXTRA MICRO Raul Bernard MD Work Phone: Start: 08-24-2024 URINALYSIS REFLEX TO CULTURE Raul hyman MD Work Phone: Start: 08-22-2024 Assay of magnesium Luci D Dye [employer] FI[employer] AGENT-PAPER DELIVERER Work Phone: Start: 08-22-2024 Assay of magnesium Luci D Dye [employer] FI[employer] AGENT-PAPER DELIVERER Work Phone: Start: 08-21-2024 Radiologic exam chest single view Gladys Gaston MD Work Phone: Start: 08-21-2024 Assay of magnesium Luci D Dye [employer] AGENT-PAPER DELIVERER Work Phone: Start: 08-20-2024 Ct head/brain w/o contrast material Iker Morris MD Work Phone: Start: 08-20-2024 Glucose measurement, blood Pratibha Victor MD Work Phone: Start: 08-20-2024 CARDIAC RHYTHM (SCANNED) Other Other OT Start: 08-20-2024 IMPLANT RECORD (SCANNED) Other Other OT Start: 08-20-2024 Level iv surg pathology gross&microscopic exam Marian Mcdonald MD Work Phone: Start: 08-20-2024 Glucose measurement, blood Pratibha Victor MD Work Phone: Start: 08-20-2024 End: 08-20-2024 Antibody screen Magalie Brown DO Work Phone: Comment on above: Performed By: #### XM #### [facility] ([facility] [address] [place] [address] Start: 08-20-2024 Assay of magnesium Zena Hurley DO Work Phone: Start: 08-20-2024 Blood typing serologic abo Arvin Guillaume MD Work Phone: Start: 08-20-2024 Glucose measurement, blood Pratibha Victor MD Work Phone: Start: 08-19-2024 Glucose measurement, blood Pratibha Victor MD Work Phone: Start: 08-19-2024 Assay of magnesium Zena Hurley DO Work Phone: Start: 08-18-2024 Glucose measurement, blood Pratibha Victor MD Work Phone: Start: 08-18-2024 Ct head/brain w/o contrast material Miguelito Watts MD Work Phone: Start: 08-18-2024 Glucose measurement, blood Pratibha Victor MD Work Phone: Start: 08-18-2024 Electroencephalogram w/rec awake&drowsy Miguelito Watts MD Work Phone: Start: 08-18-2024 Drug tst prsmv instrmnt chem analyzers pr date Magalie Daren Brown DO Work Phone: Start: 08-18-2024 EXTRA MICRO Zena Hurley DO Work Phone: Start: 08-18-2024 URINALYSIS REFLEX TO CULTURE Zena bob DO Work Phone: Start: 08-18-2024 Urnls dip stick/tablet reagent auto microscopy Zena Hurley DO Work Phone: Start: 08-18-2024 Glucose measurement, blood Pratibha Victor MD Work Phone: Start: 08-18-2024 ABORH TYPE RECONFIRMATION Rosana TYLER Work Phone: Start: 08-18-2024 Assay of magnesium Zena Hurley DO Work Phone: Start: 08-18-2024 CBC AND ELECTRONIC DIFF Zena Frieda DO Work Phone: Start: 08-18-2024 Complete blood count with white cell differential, automated Zena Hurley DO Work Phone: Start: 08-18-2024 Mri brain brain stem w/o w/contrast material Zena Frieda DO Work Phone: Start: 08-18-2024 Ct head/brain w/o contrast material Magalie T Kevin DO Work Phone: Start: 08-18-2024 Glucose measurement, blood Pratibha Victor MD Work Phone: Start: 08-17-2024 IP CONSULT TO SPEECH THERAPY Zena bob DO Work Phone: Start: 08-17-2024 Antibody screen Magalie Kevin DO Work Phone: Start: 08-17-2024 Antibody screen OTTONIEL PAGE Comment on above: Performed By: #### XM #### [facility] ([facility] [address] [place] [address] Start: 08-17-2024 CBC AND ELECTRONIC DIFF Magalie T Kevin DO Work Phone: Start: 08-17-2024 Complete blood count with white cell differential, automated Magalie T Kevin DO Work Phone: Start: 08-17-2024 GOLD TOP TUBE Magalie T Kevin DO Work Phone: Start: 08-17-2024 Hemoglobin glycosylated a1c Zena Overton maa DO Work Phone: Start: 08-17-2024 Hepatic function panel Magalie T Kevin DO Work Phone: Start: 08-17-2024 LAVENDER TOP TUBE Magalie T Kevin DO Work Phone: Start: 08-17-2024 LT BLUE TOP TUBE Magalie T Kevin DO Work Phone: Start: 08-17-2024 MINT GREEN TOP TUBE Magalie Brown DO Work Phone: Start: 08-17-2024 RAINBOW DRAW Magalie Brown DO Work Phone: Start: 08-17-2024 Ecg routine ecg w/least 12 lds trcg only w/o i&r Magaliejess Brown DO Work Phone: Start: 08-17-2024 End: 08-17-2024 Ct head/brain w/o contrast material Magalie Brown DO Work Phone: Start: 08-17-2024 Glucose measurement, blood Magalie Brown DO Work Phone: Start: 08-17-[address] Ottoniel Page DO Work Phone: Start: 08-17-2024 CT of head without contrast Dr. Ottoniel yee DO Work Phone: Start: 08-17-2024 Lipid 1996 panel - Serum or Plasma Rosita sa Medeiros FBI FIELD AGENT-PAPER DELIVERER Work Phone: Start: 08-15-2024 Estimated creatinine clearance [...] hysterectomy GERARDO HOOKS MD Start: 02-22-2021 Hysteroscopy EGRARDO HOOKS MD Start: 04-10-2020 Excision of lumbar [...] Treatment Date Care Activity Detail Author Start: 12-31-2033 Tetanus vaccination [place] Start: 08-17-2029 Lipid panel [place] Start: 08-29-2025 Finding of potassium level (finding) [place] Start: 11-08-2024 Influenza vaccination INFLUENZA VACCINE (#1) [place] Start: 09-10-2024 Patient discharge [facility] Start: 09-07-2024 [facility] Start: 09-05-2024 [facility] Start: 09-04-2024 [facility] Start: 09-02-2024 End: 09-03-2024 [facility] Start: 09-02-2024 End: 09-02-2024 ambulatory [facility] Start: 08-31-2024 Following clinical pathway protocol [facility] Start: 08-31-2024 [facility] Start: 08-31-2024 Catheterization of vein [facility] Start: 08-29-2024 Recommendation to continue with treatment [facility] Start: 08-29-2024 Urinary bladder training [facility] Start: 08-29-2024 Referral to service [facility] Start: 08-29-2024 Admission procedure [facility] Start: 08-29-2024 Measuring intake and output [facility] Start: 08-29-2024 End: 08-30-2024 Patient referral to dietitian [facility] Start: 08-29-2024 Referral to occupational therapist [facility] Start: 08-29-2024 Vital signs measurements [facility] Start: 08-29-2024 End: 08-29-2024 [facility] Start: 08-29-2024 Speech therapy assessment [facility] Start: 08-17-2024 Oxygen therapy [facility] Start: 08-17-2024 End: 08-17-2024 [facility] Start: 08-15-2024 [facility] Start: 06-01-2024 COVID-19 VACCINE ( season) COVID-19 VACCINE ( season) [place] Start: 06-01-2024 [place] Start: 05-27-2024 Anes arthrs/endscpy dstl radius ulna/wrist/hand ANESTH LOWER ARM SURGERY [facility] Start: 05-27-2024 Arthrp interpos intercarpal/metacarpal joints ARTHRP NTRCRP/CRP/MTCR NTRPS [facility] Start: 05-27-2024 Application of ice collar, cap or bag [facility] Start: 05-27-2024 Catheterization of vein [facility] Start: 05-27-2024 Following clinical pathway protocol [facility] Start: 05-27-2024 Patient discharge [facility] Start: 05-27-2024 Procedure discontinued [facility] Start: 05-27-2024 Taking patient vital signs [facility] Start: 05-27-2024 Vital signs measurements [facility] Start: 05-27-2024 [facility] Start: 05-27-2024 Medication education [facility] Start: 09-18-2013 Screening for malignant neoplasm of colon [place] Start: 06-01-2005 Pneumococcal vaccination [facility] Start: 06-01-2005 Zoster vaccine hzv live for subcutaneous use ZOSTER (SHINGLES) VACCINE (1 of 2) [place] Start: 06-01-2005 [place] Start: 1995 Screening for malignant neoplasm of breast [place] Start: 06-01-1976 Screening for malignant neoplasm of cervix [place] Start: 1955 Hepatitis C screening [place] Start: 1955 Screening for osteoporosis [facility] Basic metabolic 2008 panel with ionized calcium - Serum or Plasma [facility] Electrocardiographic procedure [facility] Magnesium measurement [facility] Patient Education [facility] Work Phone: Patient referral [facility] Work Phone: End: 08-20-2024 PLACEMENT CATH SELECTIVE INTERNAL CAROTID ARTERY W/ ANGIO IPSILAT INTRACRANIAL CAROTID W/ RAD S&I [facility] End: 08-19-2024 PV FLUOROSCOPY OR [facility] End: 08-20-2024 PV FLUOROSCOPY OR [facility] Slctv cath intrnl ca rotid art angio intrcrnl art PLACEMENT CATH SELECTIVE INTERNAL CAROTID ARTERY W/ ANGIO IPSILAT INTRACRANIAL CAROTID W/ RAD S&I AVM (arteriovenous malformation) brain [facility] Immunizations Immunization Date Immunization Notes [facility] RSV Adult Recombinan t (Arexvy) Dr. Ottoniel Page DO Work Phone: [facility] 01-01-2024 tetanus toxoid, redu andrew diphtheria toxoid, and acellular pertussis vaccine, adsorbed Dr. Ottoniel Page DO Work Phone: [facility] 12-03-2023 influenza virus vaccine, unspecified formulation Dominik Medeiros APRN-PAPER DELIVERER Work Phone: [place] 12-24-2022 Covid (Spikevax) Dr. Ottoniel House DO Work Phone: [facility] 03-07-2021 SARS-CoV-2 (COVID-19 ) mRNA-1273 vaccine GERARDO HOOKS MD [facility] 11-14-2020 influenza virus vaccine, unspecified formulation GERARDO HOOKS MD [facility] 08-06-2020 SARS-CoV-2 (COVID-19 ) mRNA-1273 vaccine GERARDO HOOKS MD [facility] 07-06-2020 SARS-CoV-2 (COVID-19 ) mRNA-1273 vaccine GERARDO HOOKS MD [facility] 12-27-2019 influenza virus vaccine, unspecified formulation GERARDO HOOKS MD [facility] 11-24-2017 influenza, injectabl e, quadrivalent, preservative free Dr. Ottoniel Page Work Phone: [facility] 11-24-2017 influenza, seasonal, injectable Dr. Ottoniel Page Work Phone: [facility] 12-21-2012 influenza virus vaccine, unspecified formulation GERARDO HOOKS MD [facility] Payers Date Payer Category Payer Self-pay [id number] 2020 Medicare [id number] 0.315 2020 Medicare [id number] 2011 Private Health Insurance [id number] 2010 Managed Care (unspecified) [id number] 0.315 2010 Unknown [id number] 1955 Unknown [id number] 2.. [id number] 1955 Unknown [id number] 2.. [id number] 1955 Unknown [id number] 2.. [id number] Unknown [id number] 2.16.8 40.1.773666.3.579.2.462 Unknown [id number] 2.16.8 40.1.490362.3.579.2.462 Unknown [id number] 2.16.8 40.1.586989.3.579.2.462 Unknown [id number] 2.16.8 40.1.309176.3.579.2.462 Unknown [id number] 2.16.8 40.1.964021.3.579.2.462 Unknown [id number] 2.16.8 40.1.928159.3.579.2.462 Unknown [id number] 2.16.8 40.1.249907.3.579.2.462 Unknown [id number] 2.16.8 40.1.431667.3.579.2.462 Unknown [id number] 2.16.8 40.1.243524.3.579.2.462 Unknown [id number] 2.16.8 40.1.969516.3.579.2.462 Unknown [id number] 2.16.8 40.1.815829.3.579.2.462 Unknown [id number] 2.16.8 40.1.365749.3.579.2.462 Unknown [id number] 2.16.8 40.1.330671.3.579.2.462 Unknown [id number] 2.16.8 40.1.552912.3.579.2.462 Unknown [id number] 2.16.8 40.1.405187.3.579.2.462 Unknown [id number] 2.16.8 40.1.734157.3.579.2.462 Unknown [id number] 2.16.8 40.1.833512.3.579.2.462 Unknown [id number] 2.16.8 40.1.696951.3.579.2.462 Unknown [id number] 2.16.8 40.1.671927.3.579.2.462 Unknown [id number] 2.16.8 40.1.850144.3.579.2.462 Unknown [id number] 2.16.8 40.1.606004.3.579.2.462 Unknown [id number] 2.16.8 40.1.199253.3.579.2.462 Unknown [id number] 2.16.8 40.1.533066.3.579.2.462 Unknown [id number] 2.16.8 40.1.062662.3.579.2.462 Unknown [id number] 2.16.8 40.1.365245.3.579.2.462 Unknown [id number] 2.16.8 40.1.529629.3.579.2.462 Unknown [id number] 2.16.8 40.1.788615.3.579.2.462 Social History Date Type Detail Facility Start: 04-24-2021 End: 08-17-2024 Ex-smoker (finding) [facility] Comment on above: Quit in 1999 Sex Assigned At [facility] Start: 08-07-2021 End: 08-08-2022 Tobacco smoking status RIIS Unknown if ever smoked [facility] Start: 04-27-[address] [facility] Start: 04-09-2018 Spouse/ Signif icant Other [facility] Start: 04-13-[address] [facility] Start: 1955 Sex Assigned At Female [facility] Start: 05-27-2024 End: 08-17-2024 Sex Female (finding) [facility] History of tobacco use Current smoker [place] History of tobacco use Cigarette Smoker [facility] Start: 08-17-2024 Tobacco use and exposure Smokeless tobacco non-user [place] Start: 08-18-2024 End: 09-21-2024 Alcoholic beverage intake Ex-drinker (finding) [place] Start: 08-17-2024 End: 08-18-2024 History of Social function [place] Start: 08-17-2024 End: 08-18-2024 Tobacco use panel [facility] Start: 1955 Sex assigned at [facility] Start: 09-18-2024 Gender identity Identifies as female gender (finding) [place] Start: 09-18-2024 Sexual orientation Heterosexual (lily heaton) [place] Medical Equipment Procedure Code Equipment Code Equipment Origin al Text Equipment Identifier Dates Arthroplasty, CMC joint ([id number]) Orthopaedic bone screw, non-bioabsorbable, sterile [id number] FDA Start: 05-27-2024 DRESSING,FIBRILL AR 1X2 1960 [...] 1960 FDA Start: 04-27-2020 DRESSING,FIBRILL AR 1X2 1961 FDA Start: 04-27-2020 SEALANT,FLOSEAL HEMOSTATIC 5ML FDA Start: 04-27-2020 SEALANT,TISSEEL 2ML FDA Start : 04-27-2020 DRESSING,FIBRILL AR 1X2 1961 FDA Start: 04-27-2020 DRESSING,FIBRILL AR 1X2 1960 FDA Start: 04-27-2020 SEALANT,FLOSEAL HEMOSTATIC 5ML FDA Start: 04-27-2020 SEALANT,TISSEEL 2ML FDA Start : 04-27-2020 DRESSING,FIBRILL AR 1X2 196 FDA Start: 04-27-2020 DRESSING,FIBRILL AR 1X2 1960 FDA Start: 04-27-2020 SEALANT,FLOSEAL HEMOSTATIC 5ML FDA Start: 04-27-2020 SEALANT,TISSEEL 2ML FDA Start : 04-27-2020 DRESSING,FIBRILL AR 1X2 1960 FDA Start: 04-27-2020 DRESSING,FIBRILL AR 1X2 1960 FDA Start: 04-27-2020 SEALANT,FLOSEAL HEMOSTATIC 5ML FDA Start: 04-27-2020 SEALANT,TISSEEL 2ML FDA Start : 04-27-2020 DRESSING,FIBRILL AR 1X2 1 FDA Start: 04-27-2020 DRESSING,FIBRILL AR 1X2 1 FDA Start: 04-27-2020 SEALANT,FLOSEAL HEMOSTATIC 5ML FDA Start: 04-27-2020 SEALANT,TISSEEL 2ML FDA Start : 04-27-2020 DRESSING,FIBRILL AR 1X2 1 FDA Start: 04-27-2020 DRESSING,FIBRILL AR 1X2 1 FDA Start: 04-27-2020 SEALANT,FLOSEAL HEMOSTATIC 5ML FDA Start: 04-27-2020 SEALANT,TISSEEL 2ML FDA Start : 04-27-2020 DRESSING,FIBRILL AR 1X2 1 FDA Start: 04-27-2020 DRESSING,FIBRILL AR 1X2 1 [...] 04-27-2020 SEALANT,TISSEEL 2ML FDA Start : 04-27-2020 [id number] Start: 08-19-2024 [id number] Start: 08-20-2024 [id number] Start: 08-20-2024 [id number] Start: 08-20-2024 [id number] Start: 08-20-2024 [id number] Start: 08-20-2024 [id number] Start: 08-20-2024 [id number] Start: 08-20-2024 [id number] Start: 08-20-2024 [id number] Start: 08-20-2024 [id number] Start: 08-20-2024 [id number] Start: 08-20-2024 [id number] Start: 08-20-2024 [id number] Start: 08-20-2024 [id number] Start: 08-20-2024 [id number] Start: 08-20-2024 [id number] Start: 08-20-2024 [id number] Start: 08-20-2024 DRESSING,FIBRILL AR 1X2 1 FDA Start: 04-27-2020 DRESSING,FIBRILL AR 1X2 1 FDA Start: 04-27-2020 SEALANT,FLOSEAL HEMOSTATIC 5ML FDA Start: 04-27-2020 SEALANT,TISSEEL 2ML FDA Start : 04-27-2020 Goals Date Patient Goal Desired Activity /State Functional Status Date Assessment Result Facility 09-10-[address] [facility] Work Phone: 08-18-2024 Are you deaf, or do you have serious difficulty hearing No [place] 08-18-2024 Are you blind, or do you have serious difficulty seeing, even when wearing glasses [facility] 08-18-2024 Do you have serious difficulty walking or climbing stairs [facility] 08-18-2024 Do you have difficul ty dressing or bathing [facility] 08-18-2024 Because of a physica l, mental, or emotional condition, do you have difficulty doing errands alone such as visiting a physician's office or shopping [facility] 06-11-2021 [facility] 06-[facility]21 Functional Status [facility] 06-11-2021 [facility] Mental Status Date Assessment Result Facility 09-10-2024 Cognitive function Voice/Name [facility] Work Phone: 08-18-2024 Because of a physica l, mental, or emotional condition, do you have serious difficulty concentrating, remembering, or making decisions No [facility] 08-17-2024 Cognitive function Voice/Name [facility] Work Phone: 08-15-2024 Cognitive function Voice/Name [facility] Work Phone: 05-27-2024 Cognitive function Voice/Name [facility] Work Phone: 06-11-2021 Mental Status [facility] 06-11-2021 Mental Status [facility] Clinical Notes 06-11-2021 to 09-21-2024 Dominik Medeiros APRN-PAPER DELIVERER - 09/21/2024 10:00 AM EDTPatient Instructions Note Date & Type Note Facility 09-21-2024 History of Present illness Narrative Images from the original note were not included. Amanda Reyna is a 69 y.o. 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 She had had a left parietal meningioma resected in 09/2009 at [facility]. She presented on 08/17/2024 with new right face, RUE/RLE numbness and paresthesias. She was taken to the OR on 08/20/2024 for left craniotomy for obliteration of AVF by Dr. Mcdonald. She was discharged to [facility] on 08/29/2024. They removed her dheeraj there. Since being home, she continues to do home therapies and is progressing to outpatient therapies. She and pleased with her progress. She has a spot on the top of head along the incision line that is firm, no drainage, no pain. ROS: Yes No Condition Details [] [x] Headache [] [x] Dizziness/lightheaded [] [x] Vision loss [] [x] Double vision [x] [] Tinnitus Decades [] [x] Hearing loss [] [x] Eating/abdominal issues [] [x] Diarrhea/constipation/black/ bloody stools [] [x] Bladder issues [] [x] Shortness of breath [] [x] Chest pain/cardiac issues [] [x] Ankle swelling [x] [] Strength problems Feels right hand still a little weak. [] [x] Balance/fall problems Cane at baseline [] [x] Numbness [x] [] Memory problems Slight fog [] [x] Seizures [] [x] Anxiety/depression problems [] [x] Fatigue [] [x] Sleep disturbance Xanax as needed Neurologist: Nam Rock, scheduled Medications/allergies reviewed and updated in chart Current Outpatient Medications Medication Instructions ALPRAZolam (XANAX) 0.25 mg, DAILY AT BEDTIME NEEDED augmented betamethasone dipropionate 0.05 % Cream 1 Application, 2 TIMES DAILY betamethasone dipropionate 0.05 % Ointment 1 Application, DAILY cephALEXin (KEFLEX) 250 mg, Nightly clobetasol 0.05 % Cream 1 Application, 2 TIMES DAILY Clotrimazole 1 % Cream 1 Application, 2 TIMES DAILY Cyclobenzaprine (FLEXERIL) 10 mg, DAILY AT BEDTIME NEEDED estradiol (ESTRACE) 1 g, Vaginal, TWICE WEEKLY ferrous sulfate 325 mg, 2 TIMES DAILY Gabapentin (NEURONTIN) 400 mg, 3 TIMES DAILY hyoscyamine (ANASPAZ) 0.125 mg, EVERY 6 HOURS NEEDED Latanoprost 0.005 % Solution ophthalmic solution 1 drop, Nightly oxyCODONE-acetaminophen 5-325 MG per tablet EVERY 8 HOURS NEEDED Pantoprazole (PROTONIX) 40 mg, DAILY potassium chloride 10 MEQ Tab CR tablet ER 20 mEq, DAILY Primidone (MYSOLINE) 50 mg, 2 TIMES DAILY Promethazine (PHENERGAN) 25 mg, EVERY 6 HOURS NEEDED Sertraline (ZOLOFT) 100 mg, DAILY SlowMag Mg Muscle/Heart 71.5-[address] 1 tablet, DAILY Sotalol (BETAPACE) 80 mg, 2 TIMES DAILY Timolol maleate 0.5 % Solution ophthalmic solution 1 drop, DAILY Ustekinumab (STELARA) 90 mg, Subcutaneous, EVERY 90 DAYS Medical comorbidities:Crohn's, atrial supraventricular tachycardia, essential tremor No smoking, alcohol, drugs Lives with spouse Independent with ADLs, finances, medications. Currently not driving. PE: BP 136/64 (BP Location: Right arm, BP Position: Sitting) Pulse 61 Temp 97 F (36.1 C) (Infrared) Resp 19 Ht 1.778 m (5' 10) Wt 113.4 kg (250 lb) SpO2 98% BMI 35.87 kg/m Smoking Status Former Right handed Alert and oriented x 3, pleasant. Speech fluent and appropriate. Initiates conversation. Can read/write. Follows commands in all extremities. Able to name simple objects and their purpose. Able to perform simple calculations. Recall intact. Face symmetric, tongue midline. +PERRL, EOMI. Gross vision/hearing intact. Incision to head well approximated, well healed. See pic below. I think there is a suture knot protrudin through. It is dry, non tender. Neck supple, no lymphadenopathy. ROM intact. Full ROM/Strength/sensation in all extremities. + tremor bilateral upper. No dysmetria/ataxia in upper or lower. Gait/balance intact with cane. No peripheral edema. Pulses present in periphery. Abd soft, non tender. Breathing unlabored. A/P AVM, left parietal, s/p craniotomy. COntinue therapies. May resume driving, no restrictions on activity. COntinue wound care. Discussed that I would prefer to let the suture dissolve, but certainly if she develops redness, drainage, she should notify us. Will plan for angiogram in [address] Mcdonald. If stable, likely to obtain periodic non-invasive imaging in future. Right IAC schwannoma (non-global). She reports she was unaware of this. Will retrieve imaging from [facility] from [id number] to see if this was present or changed. We discussed that if stable, will either refer to neuro-onc for continued monitoring/management or obtain surveillance imaging to coincide with AVM follow up. documented in this encounter [facility] 09-21-2024 Instructions KERI Ac - 09/21/2024 10:00 AM EDT Images from the original note were not included. Due 02/[address] Mcdonald. Primarily do on . Understanding Cerebral Angiography This test makes X-ray images of blood vessels in your brain. During the test, the vascular neurosurgeon puts a long, thin, flexible tube (catheter) into a groin blood vessel and follows it up past your heart to look at the vessels in your brain. He or she uses a special contrast fluid to make the blood vessels in the brain show up on the X-rays. This test is also called arteriography. Why cerebral angiography is done This test is done to help find problems with the blood vessels in the brain. These may include: Weakened area of blood vessel (aneurysm) Tangle of arteries and veins (arteriovenous malformation or AVM) Blood clots or bleeding. This may have caused a stroke or another problem. Brain tumor Inflammation of the blood vessels (vasculitis) Evaluation of arteries before surgery Before you have this test, tell your provider if you: Have bleeding problems Take medicines that thin your blood such as warfarin or aspirin Have allergies to X-ray contrast dye or iodine May be Have problems with your kidney function How cerebral angiography is done The test is done in a hospital or procedure center. You will likely go home the same day. You lie on an exam table. An IV (intravenous) line is put into a vein in your arm or hand. This provides fluids and medicines. You may be given a medicine that helps you relax (sedative). The staff will watch your heart activity with an electrocardiogram (ECG) machine. They will put sticky patches on your chest, arms and legs and attach those with wires to the ECG machine. The doctor will prepare the site where the catheter will be inserted. The insertion site is usually in the groin or above the wrist. The site is cleaned. It is also numbed with an injection of anesthetic. The doctor makes a small incision or puncture into the artery at the insertion site. He or she puts the catheter into the artery. Using X-ray images as a guide, the doctor carefully moves the catheter through the artery to the brain. The doctor injects contrast fluid through the catheter into the artery. You may feel warmth or pressure in your neck, face, or head. The doctor takes X-rays. When the procedure is complete, the catheter is removed. The staff will put pressure on the insertion site for a time to stop any bleeding. We may leave a closure device to help control bleeding. This can cause some swelling and discomfort to the area which may last a few weeks. When you are released to go home, have an adult family member or friend drive you. You will resume normal activities within 24-48 hours. You should not swim, soak in hottub or pool for 7 days while the incision site heals. You may shower as you normally do. You will know your results immediately and we will discuss plans for care after your test. Risks of cerebral angiography Bleeding Blood clots Blood vessel damage Allergic reaction to the contrast fluid Kidney damage from the contrast fluid Access site (groin or wrist) bruising or swelling Date Last Reviewed: 08/09/201519994327-0665 [employer]. [address] [place] [address]. All rights reserved. This information is not intended as a substitute for professional medical care. Always follow your healthcare professional's instructions. documented in this encounter [place] 09-10-2024 Discharge summary Note Date/Time September 10, 2024 9:47am [facility] Medical Records Department [address] [place] [id number] Discharge Summary 09/09/245 MR#: [id number] Acct: [id number] Name: AMANDA REYNA Rep #:[id number] : 1955 69 From: Debi Deleon DO PCP: Dr. Ottoniel Page DO Status:ADM IN Location: [id number] Providers Date of Admission: 08/29/24 Date of Discharge: 09/10/24 Primary Care Physician: Dr. 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 (4) Essential tremor: Status: Chronic Code(s): G25.0 - Essential tremor Plan: Will continue Mysoline. (5) Paroxysmal atrial fibrillation: Status: Chronic Code(s): I48.0 - Paroxysmal atrial fibrillation Plan: Will continue to follow with [facility]. She was in the ED a few days prior to the intracerebral hemorrhage for atrial fibrillation with rapid ventricular response. The episode was prolonged but she spontaneously convertedwhile in the emergency department. She is on metoprolol. She is not on an anticoagulant. (6) Essential (primary) hypertension: Status: Chronic Code(s): I10 - Essential (primary) hypertension Plan: BP is well controlled. (7) Hyperlipidemia: Status: Chronic Code(s): E78.5 - Hyperlipidemia, unspecified Qualifiers: Hyperlipidemia type: pure hypercholesterolemia Qualified Code(s): E78.00 - Pure hypercholesterolemia, unspecified; E78.0 - Pure hypercholesterolemia Plan: Not on a statin. Defer treatment to Dr. Page. (8) Anxiety and depression: Status: Chronic Code(s): F41.9 - Anxiety disorder, unspecified; F32.9 - Major depressive disorder, singleepisode, unspecified Plan: Predominantly anxious. She has a hx of panic attacks in the past and was on Benzo's. Wellbutrin was discontinued and she was started on Sertraline and is tolerating well with less anxiety. Now sleeping well at night. RAre use of lowdose PRN Xanax. Is agreeable to following up with behavioral health for counselling. (9) Restless legs: Status: Chronic Code(s): G25.81 - Restless legs syndrome Plan: Ropinirole was weaned off due to chronic nausea, diarrhea and fatigue. Iron studies revealed iron deficiency and she received IV iron sucrose. She is chronically on a PPI and even though she takes the oral iron supplement with orange juice she may not be absorbing the iron. An overnight trending pulse ox was done and the O2 sat was <89% 75% of the time she was monitored. She was placed on supplemental oxygen at night and since then the restless leg has markedly improved. She has been c/o R leg pain at the end of the day and she will relate this to restless leg but, it resolves with Oxycodone. I suspect thepain is related to chronic low back pain with radicular pain that has been exacerbated because she has been doing 3 hours of therapy daily and not due to RLS. She will continue to follow with Dr. Hernandez post DC from rehab. (10) Hypoxemia associated with sleep: Status: Chronic Code(s): G47.36 - Sleep related hypoventilation in conditions classified elsewhere Plan: Overnight trending pulse ox was repeated the night prior to DC from rehab and formerly [facility] to show hypoxemia with sleep. 47.91% of the time the pulse ox was 89 or less and she had 16 desaturations lasting 60 sec.......the longest desauration event lasted 18 minutes. (11) JANNETH (obstructive sleep apnea): Status: Suspected Code(s): G47.33 - Obstructive sleep apnea (adult) (pediatric) Plan: arranged for home O2 at DC. 2 LPM. The sleep lab has an order for a sleep study and all documentation for the test has been completed. The sleep lab willcontact her to schedule a formal sleep study and then she will follow up with pulmonary medicine for treatment. (12) Anxiety: Status: Chronic Code(s): F41.9 - Anxiety disorder, unspecified Plan: Chronic long standing anxiety. Recommend psychotherapy......pt agreeable to referral to behavioral health. Referral was made. Started on Sertraline at admission to rehab. she did not feel the Wellbutrin was helping and she had chronic TADEO's. Wellbutrin does not treat anxiety and can actually increase anxiety. She is tolerating Sertraline well. No longer has chronic nausea. Sheis sleeping well. Rare use of Xanax 0.25 mg. TADEO's are much better. (13) Glaucoma: Status: Chronic Code(s): H40.9 - Unspecified glaucoma Qualifiers: Glaucoma type: unspecified Laterality: bilateral Qualified Code(s): H40.9 - Unspecified glaucoma (14) IBS (irritable bowel syndrome): Status: Chronic Code(s): K58.9 - Irritable bowel syndrome, unspecified Qualifiers: Irritable bowel syndrome type: with diarrhea Qualified Code(s): K58.0 -Irritable bowel syndrome with diarrhea Plan: Has had loose stool on rehab.......much less at the time of DC. Has had 0-2 BM's daily the 72 hours preceding DC from rehab. The diarrhea mostly occurs in the AM. She has not had any stools at night. She has not had any blood in the stool or mucous. This is most likely due to IBS and not to exacerbation of Crohn's dissease. (15) History of Crohn's disease: Status: Chronic Code(s): Z87.19 - Personal history of other diseases of the digestive system Plan: She will continue to follow with Dr. Kat. (16) Hypokalemia: Status: Acute Code(s): E87.6 - Hypokalemia Plan: Hypokalemia persisted even after the HCTZ was discontinued. She is being discharged on 10 mEq of potassium daily. Will need follow-up labs in 7 to 10 days. (17) Hypomagnesemia: Status: Chronic Code(s): E83.42 - Hypomagnesemia Plan: She was started on a magnesium supplement. Would like to keep the MAG at about 2 since she is known to have PAF. (18) Nodule of ear canal: Status: Acute Code(s): H61.899 - Other specified disorders of external ear, unspecified ear Qualifiers: Laterality: right Qualified Code(s): H61.891 - Other specified disorders of right external ear Plan: She also has a indeterminate R frontal bone lesion that mildly enhances with contrast. Plan 1. DC home on 09/10/24. 2. Supplemental oxygen when sleeping arranged by SW. 2 LPM 3. She will follow up with the neurosurgeon, Janeth Craig (cardiology for AF), Dr. Kat and behavioral Health 4. The sleep lab will contact her to arrange a time for the sleep study to be done. They will arrange an appt with pulmonary medicine to go over the results of the study and discuss treatment options. 5. She should have a BMP and MAG level in 1 week. A lab requisition was given to the patient and we requested the results be sent to Dr. Page. 6. Follow up with neurosurgery for the R frontal bone lesion and the nodule in the R auditory canal. Medications at Discharge Home Medications pantoprazole 40 mg tablet,delayed release (Protonix) 40 mg PO DAILY GERD 10/13/18 cephalexin 250 mg tablet 250 mg PO QHS Antibiotic 09/23/19 latanoprost 0.005 % eye drops 1 drp EACH EYE QHS eye drops 04/13/20 promethazine 25 mg tablet 25 mg PO Q6H PRN Nausea 08/24/20 betamethasone dipropionate 0.05 % topical ointment 1 applic topical QDAY PRN skin irritation 08/10/24 clobetasol 0.05 % topical cream 1 applic topical 0600,2200 PRN Skin irritation 08/10/24 clotrimazole 1 % topical cream 1 applic topical 0600,2200 PRN Skin irritation 08/10/24 hyoscyamine sulfate 0.125 mg disintegrating tablet 0.125 mg PO Q6 PRN nausea/vomiting 08/10/24 primidone 50 mg tablet 100 mg PO BID Essential tremors 08/10/24 timolol maleate 0.5 % eye drops 1 drp ophthalmic (eye) DAILY eye drops 08/10/24 sotalol 80 mg tablet 80 mg PO BID BP #180 TABLETS 08/17/24 acetaminophen 325 mg tablet 650 mg (2 x 325 mg) PO Q6H PRN PRN Pain Score 1-10 #100 tabs 09/09/24 alprazolam 0.25 mg tablet 0.25 mg PO Q6H PRN PRN Anxiety/Restlessness/Sleep 1 week #15 tabs 09/09/24 ferrous sulfate 325 mg (65 mg iron) tablet,delayed release 325 mg PO DAILY supplement #1 TAB 09/09/24 fluticasone propionate 50 mcg/actuation nasal spray,suspension 2 spray NASAL DAILY #1 BOTTLE 09/09/24 gabapentin 400 mg capsule 400 mg PO TID Nerve pain #90 caps 09/09/24 loperamide 2 mg capsule 2 mg PO Q4H PRN PRN diarrhea #1 cap 09/09/24 magnesium chloride 64 mg (magnesium chloride) tablet,delayed release (Mag 64) 128 mg (2 x 64 mg) PO DAILY #30 tabs 09/09/24 oxycodone 5 mg tablet 5 mg PO Q6H PRN pain 1 week #15 tabs 09/09/24 potassium chloride 10 mEq tablet,extended release(part/cryst) 10 meq PO DAILYCM #30 tabs 09/09/24 sertraline 100 mg tablet 100 mg PO DAILY #30 tabs 09/09/24 aspirin 81 mg tablet 81 mg PO DAILY #1 TAB 09/10/24 Hospital Course Operations - (craniectomy 08/20/24 for excision of AV fistula and drainage of intracerebral hematoma. ) Summary of Care Provided Minutes Spent on Discharge: 45 Hospital Course: AMANDA REYNA, is a 69 YO F with a PMH of SVT, paroxysmal atrial fibrillation (not on anticoagulation), history of wide-complex tachycardia, coronary artery disease, Crohn's disease (follows with Dr. Kat), irritable bowel syndrome, essential tremor (on Mysoline and was referred to neurology by Dr. Page but, has not seen neurology yet) , resection of a meningioma in 2009, obesity, history of pulmonary embolism (unprovoked), RLS, HLD, GERD, iron deficiency, tobacco dependence in remission, hypertension, anxiety/depression (with hx of panic attacks in past) and glaucoma who presented to the emergency department at [facility] on 08/17/2024 complaining of numbness onthe right side of her body. A stat noncontrast CT brain showed a left parietal intraparenchymal hemorrhage measuring up to 2.6 cm. Teleneurology was consultedand recommended transfer to [facility] for hemorrhagic stroke. They also recommended discussing with neurosurgery. CT was repeated at [facility] and demonstrated a left parietal hemorrhage measuring 2.4 cm x 1.9 cm x 2.5 cm without an underlying vascular malformation or aneurysm on CTA and with no midline shift. She was started on Keppra for seizure prophylaxis and an MRI of the brain was ordered. ASA was placed on hold. MRI of the brain on 08/18/2024 showed grossly stable size of the left parietal intraparenchymal hematoma with mild surrounding vasogenic edema with minimal local mass effect. There was an indeterminate rightfrontal bone lesion with mild associated contrast-enhancement and a small contrast-enhancing nodule in the right internal auditory canal suggestive of a small schwannoma. 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 She was taken to the OR on 08/20/2024 for resection of SM II AVF and evacuation of the hematoma. While in the hospital she was seen by PT/OT and ST. She was requiring MOD to total assist with ADL's and acute rehab was recommended [facility]. She was transferred to the acute inpt rehab unit at [facility] on 08/29/24 for 3 hours of therapy daily to restore function/independence at or her level prior to the stroke. Amanda had many somatic complaints at presentation to rehab. She complained of chronic fatigue with the need to nap during the day, chronic headaches, chronic nausea, diarrhea and restless legs. She was taking both gabapentin and ropinirole. Iron studies were checked to rule out iron deficiency as the etiology of restless leg syndrome. She was iron deficient and she was given intravenous iron sucrose. She is on an oral iron supplement which she takes with orange juice but she is chronically on a PPI and still may not be able to absorb oral iron. Following iron sucrose we restarted ferrous sulfate with 1000mg of ascorbic acid once daily with a meal. An overnight trending pulse ox was ordered looking for obstructive sleep apnea as etiology of restless leg. The overnight trending pulse ox showed that 74. For 1% of the time her pulse ox was89% or less. She had 40 desaturation events lasting 60 seconds or longer. The longest desaturation event was 9 minutes and 48 seconds. She was started on oxygen supplementation at 2 L/min anytime she is sleeping. The restless leg symptoms improved greatly and the Ropinirole was weaned off. She c/o restless leg on in the evening but, it only involved the R leg and the symptoms were stiffness and muscle soreness. The sx resolved with Oxycodone and ambulation and then she could go to sleep and has been sleeping well through the night and awakening feeling refreshed in the AM. She has chronic back pain with radicularsymptoms send she sees Dr. Hernandez for pain management. I suspect the pain in the right leg is secondary to chronic back pain/radicular pain and not due to restless leg. Somatic complaints are much less at DC from rehab. She was having loose stool but she only had diarrhea during the day and never woke up to have a bowel movement at night. She denies any mucus or blood in her stools and she did not have any significant abdominal pain. I suspect the loose stool was secondary to uncontrolled anxiety/irritable bowel syndrome. She had been taking Wellbutrin for anxiety/depression but Wellbutrin does not treat anxiety. She has a long history of anxiety and has had severe panic attacks in the past requiring benzodiazepines. Wellbutrin was discontinued and she was started on sertraline 50 mg daily. She tolerated this dose well and prior to discharge it was increased to 100 mg daily. At times she feels much more anxious and so Xanax was ordered as needed and she is taken only 2 doses since it was ordered. It is helpful when she does take it. The BM's have decreased. On 09/09/24 she had no BM's. Her chronic TADEO's have resolved. She hasa good appetite and she is sleeping well at night. She denies felling depressed. She is much more alert during the day and not always napping. Potassium and mag were both low at admission. HCTZ was discontinued (she was taking this for leg edema due to venous insufficiency) and K and MAG were supplemented for a few days but, on follow up labs the Mag and K were both low after the supplementation was stopped. She was restarted on potassium chloride 10 mEq daily and magnesium chloride 128 mg daily. At discharge she was given a lab requisition to obtain a BMP and magnesium in 1 week with the results to go to Dr. Page. She has had no atrial fibrillation anytime I have examined [facility] and she denies palpitations. Amanda did very well in rehab. Her modified Talbotton score has gone from 4 at admission to rehab to 2 at discharge. She is able to ascend/descend 816 steps with 1 handrail and a straight cane at standby assist. She has ambulated up to 600 feet on various surfaces using a straight cane at standby assist. She has been ambulating on the rehab unit with a straight cane independently with no loss of balance. She is independent with eating, grooming, dressing, bathing, toileting and toilet transfer. We recommend supervision with tub/shower transfer for at least 1 week postdischarge. Amanda was discharged from acute inpatient rehab on 09/10/2024 to her home. She will have outpatient physical therapy at [facility]. The sleep lab will contact her to arrange an appointment for an overnight sleep study in the sleep lab at [facility]. All the documentation has been completed andthey have an order for the study. Messages were left with Dr. Page's officeand behavioral health and we requested they call her to schedule an appointment. She has an appointment with Dominik Medeiros on 09/21/2024 at 10 AM and I assume this is for follow-up at [facility] with neurosurgery. We will defer follow-up of the right frontal bone lesion and the nodule in the right auditory canal to neurosurgery. All dheeraj have been removed from the craniectomy incision and the incision is intact with no dehiscence, no discharge, no ngozi-incisional erythema and no significant swelling around the incision. She denies cephalgia. She will continue to follow-up with Dr. Kat for Crohn's disease and KIMBERLY Leyva for cardiology/A-fib. Physical Exam Const alert, oriented x3 and no apparent distress Constitutional Narrative: Making good eye contact, appropriate General Appearance: cooperative, comfortable and well kempt HEENT HEENT Narrative: Very dry MM. Scalp incision is healing well. There is no dehiscence, no discharge, no ngozi-incisional erythema and no significant swelling. She had no pain with palpation around the incision and she denied cephalgia today. Eyes PERRL, EOMs intact bilaterally, conjunctivae normal and no scleral icterus Eyes Narrative: No discharge from the eyes and no mattering of the eyelashes. General Eye: normal appearance of both eyes Neck no lymphadenopathy, supple, no JVD, No nodes and no carotid bruits Neck Narrative: Brisk carotid upstroke with good pulse volume. General: trachea midline Chest Chest: symmetrical chest wall rise Resp normal respiratory effort, normal air movement, no use of accessory muscles and clear to auscultation bilaterally Resp Narrative: Not tachypneic and no conversational dyspnea. Effort and Inspection: able to speak in complete sentences Cardio regular rate, regular rhythm, S1 normal heart sound, S2 normal heart sound, no murmurs, no rub and no gallops Cardio Narrative: No ectopy. She has been in normal sinus rhythm every time I have examined her on rehab. She denies palpitations and lightheadedness. GI normal to inspection, nondistended, normoactive bowel sounds, soft to palpation and non-tender GI Narrative: No guarding with palpation. Denies nausea, abdominal cramping and had no bowel movements on 09/09/2024. At the time I spoke to her on 09/10/2024 if she had not had any bowel movements that morning either. no CVA tenderness Narrative: Denies dysuria. Back/Spine Back/Spine Narrative: She has kyphosis. Has not had a BMD test in many years. The last bone mineral density at [facility] was in 2017 and at that time she had normal bone density. Extremity no clubbing, cyanosis or edema, no calf tenderness and no pedal edema Extremity Narrative: Negative Hardy's and Sandi's signs. SARA hose are in place. Skin Skin Narrative: No rashes, no skin breakdown. Rashes: no rashes Wound Narrative: The craniotomy incision is intact and sutured. There is no dehiscence. No purulent discharge. No ngozi-incisional erythema and no significant swelling around the incision. Neuro oriented x3, CN's II-XII intact bilaterally and no focal motor deficits Neuro Narrative: Tongue protrudes on the midline. Pupils are equal round and reactive to light and accommodation. Smooth pursuit but a few beats of nystagmus. Denies vertigo. Good strength in the arms and legs......no drift. Numbness R side. She had a recent surgery on the R thumb for severe OA.......has a scar. Good plantar flexion and dorsiflexion. No ataxia, No extinction. No visual field cuts. Normal speech. No aphasia or dysarthria. Psych affect normal, denies hallucinations, denies homicidal ideation and denies suicidal ideation Psych Narrative: Appropriate, making good eye contact. Able to stay on topic and focus. No flight of ideas. Does not appear anxious or depressed. Conversant and relating well to staff. Sleeping through the night now and feels much more rested in themorning. She is alert during the day and I see her up in the recliner rather than napping between therapy sessions. When she is anxious she does not outwardly appear very anxious but, diarrhea increases and she has more somatic complaints when she is anxious. Appearance: grossly normal and well kempt Attitude: calm and engaged Activity / Motor Behavior: appropriate eye contact Weight / BMI Weight Weight: 247 lb 3 oz Body Mass Index (BMI) 35.4 ABG / Lab / Microbiology Data 09/03/24 06:49 09/07/24 07:29 D/C Instructions Discharge Diet: - (Low-fat, low-salt) Weight Bearing Status: Full weight bearing Keep extremity elevated above heart level: Legs Call your doctor if your incision/area has: Continuous Slow Oozing, Sudden Increased Bleeding, Increased Pain/ Swelling, Increased Redness, Foul Smelling Discharge and Swelling at the incision site Call your doctor if you observe: Fever of 101 or Higher, Shortness of breath, Dizziness, Fainting spells, Swelling in the ankles, Chest pain, Increased palpitations (irregular heartbeat), Calf discomfort, Uncontrolled pain and - (STROKE symptoms: facial droop, slurred speech, inability to get words out, weakness on 1 side of the body and not the other, numbness on 1 side of the bodyand not the other, inability to maintain your balance sitting or standing, vertigo. ) Suture Line Care: Avoid Pulling/Pushing and Avoid Pinching/Bending Cleanse incision/area with: Soap & Water Additional Dressing/Incision Instructions: No dressing is need. Leave the incision open to air. DC O2, CPAP, BIPAP Needs Home O2 Discharge instructions: Yes Type of respiratory needs?: Oxygen Oxygen frequency: With Sleeping Oxygen liters per minute when sleepin DC home with Oxygen: Yes Home O2 MD Review: I have reviewed the oxygen testing, and the patient qualifies for home oxygen equipment and portability. The patient is mobile in the home and the community. Pending Tests Upon Discharge: none Please Follow Up With: Ottoniel Page When: a message was left with the office to call you with and appt. You should be seen within 7-10 days post discharge from rehab. Other appts need to be made.....listed at the end of the discharge instructions. 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 * Patients 75 years or YOUNGER should receive HIGH intensity statin dose unless contraindicated. You will be required to document reason for non-treatment if statin daily dose does not meet guidelines. HIGH DOSE STATIN THERAPY DAILY Atorvastatin > than or = to 40 mg Rosuvastatin > than or = to 20 mg Amlodipine + Atorvastatin > than or = to 2.5/40 mg Ezetimibe + Simvastatin 10/80 mg Simvastatin 80mg Discharge Plan Admission Admit Date/Time: 08/29/24 12:48 Primary Reason for Your Visit: Debility secondary to craniotomy for left parietal intraparenchymal hemorrh Attending Provider: Debi Deleon Primary Care Provider: Ottoniel Page Instructions Patient Instructions: Caring for Your Incision Additional Instructions / Restrictions: 1. I believe the restless leg was due to untreated sleep apnea and iron deficiency. I also believe the Ropinirole was causing augmentation and makingthings worse. I believe the Ropinirole was contributing to chronic nausea, lightheadedness, fatigue and headache. Since the ropinirole has been decreasedand we have been applying oxygen anytime you are sleeping and we have given you IV iron the restless less is much better. Actually I think the soreness/stiffness and pain in the legs you are having at the end of the day aredue to your chronic back problems and the increased amount of exercise you have been doing. I think it would be a good idea to continue to use Oxycodone in theening to treat this. since the oxygen you are sleeping good at night and you are very alert during the day and taking less naps. The sleep lab will call youto schedule a sleep study and we have ordered oxygen for you to have at home anytime you are sleeping. 2. Outwardly you do not appear very anxious but, you have a lot of anxiety and you have even been treated for panic attacks in the past. Wellbutrin is a good antidepressant but, it does not treat anxiety and in fact it can cause increasedanxiety, insomnia and headaches. WE have discontinued Wellbutrin and started you a medication called Sertraline that treats both anxiety and depression. It takes this medication 3-4 weeks to get the full effect. In the meantime I am giving you a prescription for Xanax (also called alprazolam) to take every 4-6 hours as needed for anxiety/panic attacks. You have not had to take much of this while on rehab. I think the diarrhea has more to do with irritable bowel syndrome (IBS) rather than Crohn's. Anxiety increase IBS sx. With IBS the diarrhea happens usually only during the day and does not wake you up at night. With IBS you will not have mucous or blood in the stool. I always think medication and counselling work much better together than either alone. I thinkyou may benefit from follow up with behavioral health at Discharge. 3. I discontinued the hydrochlorothiazide (HCTZ) that you were taking. Your potassium and magnesium have both been low despite discontinuing hydrochlorothiazide. You will now take a potassium supplement and a magnesium supplement. We should recheck your lab in approximately 1 week to make sure that potassium/magnesium are now within normal limits. The swelling in your legs is very well-controlled with compression stockings. Swelling is always worse in the summer because it is hot and this leads to dilation of the veins and increased swelling in the legs, especially if you are not elevating them. Watch your salt intake because a high salt diet will increase peripheral edema. Diuretics generally only help once you are dehydrated and diuretics also decrease potassium and magnesium and low potassium and magnesium can lead to a problem with the rhythm of your heart called atrial fibrillation. Losing weightwill help a lot with swollen ankles and it will also help with the chronic back pain. 4. You have done very well in therapy and we have all appreciated your hard work and your willingness to do whatever we have asked of you.....with a smile on your face. If you or any of your family have questions after you leave rehabplease do not hesitate to call me. OFFICE: [phone] CELL: [phone] NURSES STATION ON REHAB: [phone] Discharge Orders/Prescriptions Prescriptions: New acetaminophen 325 mg Tablet 650 mg PO Q6H PRN PRN (Reason: Pain Score 1-10) Qty: 100 0RF alprazolam 0.25 mg Tablet 0.25 mg PO Q6H PRN PRN (Reason: Anxiety/Restlessness/Sleep) 7 Days Qty: 15 0RF loperamide 2 mg Capsule 2 mg PO Q4H PRN PRN (Reason: diarrhea) Qty: 1 0RF fluticasone propionate 50 mcg/actuation [place],Suspension 2 spray NASAL DAILY Qty: 1 0RF magnesium chloride [Mag 64] 64 mg Tablet,Delayed Release (Dr/Ec) 128 mg PO DAILY Qty: 30 0RF sertraline 100 mg Tablet 100 mg PO DAILY Qty: 30 0RF potassium chloride 10 mEq Tablet,Er Particles/Crystals 10 meq PO DAILYCM Qty: 30 0RF aspirin 81 mg tablet 81 mg PO DAILY Qty: 1 0RF Continued pantoprazole [Protonix] 40 mg tablet,delayed release (DR/EC) 40 mg PO DAILY cephalexin 250 mg tablet 250 mg PO QHS primidone 50 mg tablet 100 mg PO BID hyoscyamine sulfate 0.125 mg tablet,disintegrating 0.125 mg PO Q6 PRN (Reason: nausea/vomiting) clotrimazole 1 % cream 1 applic topical 0600,2200 PRN (Reason: Skin irritation) Rx Instructions: Abdominal folds betamethasone dipropionate 0.05 % ointment 1 applic topical QDAY PRN (Reason: skin irritation) Rx Instructions: Apply to hands clobetasol 0.05 % cream 1 applic topical 0600,2200 PRN (Reason: Skin irritation) Rx Instructions: Apply to vaginal area timolol maleate 0.5 % drops 1 drp ophthalmic (eye) DAILY Rx Instructions: Apply to Left eye latanoprost 1 DROP bottle 1 drp EACH EYE QHS promethazine 25 mg Tablet 25 mg PO Q6H PRN (Reason: Nausea) gabapentin 400 mg capsule 400 mg PO TID Qty: 90 0RF ferrous sulfate 325 mg (65 mg iron) tablet,delayed release (DR/EC) 325 mg PO DAILY Qty: 1 0RF Rx Instructions: Take this with 1,000 mg of Vitamin C. TAke with a meal. oxycodone 5 mg tablet 5 mg PO Q6H PRN (Reason: pain) 7 Days Qty: 15 0RF sotalol 80 mg tablet 80 mg PO BID Qty: 180 3RF Discontinued ropinirole 0.5 mg tablet 0.5 mg PO TID bupropion HCl 150 mg tablet extended release 24 hr 150 mg PO QDAY hydrochlorothiazide 25 MG tablet 25 mg PO DAILY enoxaparin [Lovenox] 40 mg/0.4 mL syringe 40 mg subcut DAILY Other Ambulatory Orders: Basic Metabolic Profile (BMP) (Routine) Timeframe: 1 Week Facility: [facility] - Location: Laboratory Ordered By: Dr. Debi Deleon Magnesium (Routine) Timeframe: 1 Week Facility: [facility] - Location: Laboratory Ordered By: Dr. Debi Deleon Referrals / Follow Up: sleep study [Other] (Hospital will call you to set up appointment ) Ottoniel Page DO [Primary Care Provider] - (message left with office) Jayson Baker DO [Med Staff - Child Monitor] - (message left for office to call and make appointment ) Dominik Medeiros NP-C [Non-Staff] - 09/21/24 10:00 am Disposition Disposition (needs filled in before D/C Order can be placed): Home, Self Care Charges/Coding Visit Charges Inpatient E&M: 27915 Disch Hosp >30min 09/10/24 0947 <Electronically signed by Debi Deleon DO> Cosigner Signature (if applicable): CC: LUBA Medeiros; Dr. Ottoniel Page DO; Dr. Debi Deleon DO; Dr. Jayson Baker DO; Dr. Facundo aKt MD; Dr. Davdi Tyson MD; KIMBERLY Seo~ Signed [facility] Work Phone: [phone] Discharge summary [facility] Medical Records Department [address] [place] [address] Discharge Summary 09/09/24 1655 MR#: [id number] Acct: [id number] Name: AMANDA REYNA Rep #:[id number] : 1955 69 From: Debi Deleon DO PCP: Dr. Ottoniel Page DO Status:ADM IN Location: [id number] Providers Date of Admission: 08/29/24 Date of Discharge: 09/10/24 Primary Care Physician: Dr. 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 (4) Essential tremor: Status: Chronic Code(s): G25.0 - Essential tremor Plan: Will continue Mysoline. (5) Paroxysmal atrial fibrillation: Status: Chronic Code(s): I48.0 - Paroxysmal atrial fibrillation Plan: Will continue to follow with [facility]. She was in the ED a few days prior to the intracerebral hemorrhage for atrial fibrillation with rapid ventricular response. The episode was prolongedbut she spontaneously convertedwhile in the emergency department. She is on metoprolol. She is not on an anticoagulant. (6) Essential (primary) hypertension: Status: Chronic Code(s): I10 - Essential (primary) hypertension Plan: BP is well controlled. (7) Hyperlipidemia: Status: Chronic Code(s): E78.5 - Hyperlipidemia, unspecified Qualifiers: Hyperlipidemia type: pure hypercholesterolemia Qualified Code(s): E78.00 - Pure hypercholesterolemia, unspecified; E78.0 - Pure hypercholesterolemia Plan: Not on a statin. Defer treatment to Dr. Page. (8) Anxiety and depression: Status: Chronic Code(s): F41.9 - Anxiety disorder, unspecified; F32.9 - Major depressive disorder, singleepisode, unspecified Plan: Predominantly anxious. She has a hx of panic attacks in the past and was on Benzo's. Wellbutrin wasdiscontinued and she was started on Sertraline and is tolerating well with less anxiety. Now sleeping well at night. RAre use of lowdose PRN Xanax. Is agreeable to following up with behavioral healthfor counselling. (9) Restless legs: Status: Chronic Code(s): G25.81 - Restless legs syndrome Plan: Ropinirole was weaned off due to chronic nausea, diarrhea and fatigue. Iron studies revealed iron deficiency and she received IV iron sucrose. She is chronically on a PPI and even though she takes the oral iron supplement with orange juice she may not be absorbing the iron. An overnight trending pulse ox was done and the O2 sat was <89% 75% of the time she was monitored. She was placed on supplemental oxygen at night and since then the restless leg has markedly improved. She has been c/o R leg pain at the end of the day and she will relate this to restless leg but, it resolves with Oxycodone. I suspect thepain is related to chronic low back pain with radicular pain that has been exacerbated because she has been doing 3 hours of therapy daily and not due to RLS. She will continue to follow with Dr. Hernandez post DC from rehab. (10) Hypoxemia associated with sleep: Status: Chronic Code(s): G47.36 - Sleep related hypoventilation in conditions classified elsewhere Plan: Overnight trending pulse ox was repeated the night prior to DC from [facility] to show hypoxemia with sleep. 47.91% of the time the pulse ox was 89 or less and she had 16 desaturations lasting 60 sec.......the longest desauration event lasted 18 minutes. (11) JANNETH (obstructive sleep apnea): Status: Suspected Code(s): G47.33 - Obstructive sleep apnea (adult) (pediatric) Plan: arranged for home O2 at DC. 2 LPM. The sleep lab has an order for a sleep study and all documentation for the test has been completed. The sleep lab willcontact her to schedule a formal sleep study and then she will follow up with pulmonary medicine for treatment. (12) Anxiety: Status: Chronic Code(s): F41.9 - Anxiety disorder, unspecified Plan: Chronic long standing anxiety. Recommend psychotherapy......pt agreeable to referral to behavioral health. Referral was made. Started on Sertraline at admission to rehab. she did not feel the Wellbutrin was helping and she had chronic TADEO's. Wellbutrin does not treat anxiety and can actually increase anxiety. She is tolerating Sertraline well. No longer has chronic nausea. Sheis sleeping well. Rare use of Xanax 0.25 mg. TADEO's are much better. (13) Glaucoma: Status: Chronic Code(s): H40.9 - Unspecified glaucoma Qualifiers: Glaucoma type: unspecified Laterality: bilateral Qualified Code(s): H40.9 - Unspecified glaucoma (14) IBS (irritable bowel syndrome): Status: Chronic Code(s): K58.9 - Irritable bowel syndrome, unspecified Qualifiers: Irritable bowel syndrome type: with diarrhea Qualified Code(s): K58.0 -Irritable bowel syndrome with diarrhea Plan: Has had loose stool on rehab.......much less at the time of DC. Has had 0-2 BM's daily the 72 hourspreceding DC from rehab. The diarrhea mostly occurs in the AM. She has not had any stools at night.She has not had any blood in the stool or mucous. This is most likely due to IBS and not to exacerbation of Crohn's dissease. (15) History of Crohn's disease: Status: Chronic Code(s): Z87.19 - Personal history of other diseases of the digestive system Plan: She will continue to follow with Dr. Kat. (16) Hypokalemia: Status: Acute Code(s): E87.6 - Hypokalemia Plan: Hypokalemia persisted even after the HCTZ was discontinued. She is being discharged on 10 mEq of potassium daily. Will need follow-up labs in 7 to 10 days. (17) Hypomagnesemia: Status: Chronic Code(s): E83.42 - Hypomagnesemia Plan: She was started on a magnesium supplement. Would like to keep the MAG at about 2 since she is knownto have PAF. (18) Nodule of ear canal: Status: Acute Code(s): H61.899 - Other specified disorders of external ear, unspecified ear Qualifiers: Laterality: right Qualified Code(s): H61.891 - Other specified disorders of right external ear Plan: She also has a indeterminate R frontal bone lesion that mildly enhances with contrast. Plan 1. DC home on 09/10/24. 2. Supplemental oxygen when sleeping arranged by SW. 2 LPM 3. She will follow up with the neurosurgeon, Dr. Page, Janeth HARRIS (cardiology for AF), Dr. Kat and behavioral Health 4. The sleep lab will contact her to arrange a time for the sleep study to be done. They will arrange an appt with pulmonary medicine to go over the results of the study and discuss treatment options. 5. She should have a BMP and MAG level in 1 week. A lab requisition was given to the patient and werequested the results be sent to Dr. Page. 6. Follow up with neurosurgery for the R frontal bone lesion and the nodule in the R auditory canal. Medications at Discharge Home Medications pantoprazole 40 mg tablet,delayed release (Protonix) 40 mg PO DAILY GERD 10/13/18 cephalexin 250 mg tablet 250 mg PO QHS Antibiotic 09/23/19 latanoprost 0.005 % eye drops 1 drp EACH EYE QHS eye drops 04/13/20 promethazine 25 mg tablet 25 mg PO Q6H PRN Nausea 08/24/20 betamethasone dipropionate 0.05 % topical ointment 1 applic topical QDAY PRN skin irritation 08/10/24 clobetasol 0.05 % topical cream 1 applic topical 0600,2200 PRN Skin irritation 08/10/24 clotrimazole 1 % topical cream 1 applic topical 0600,2200 PRN Skin irritation 08/10/24 hyoscyamine sulfate 0.125 mg disintegrating tablet 0.125 mg PO Q6 PRN nausea/vomiting 08/10/24 primidone 50 mg tablet 100 mg PO BID Essential tremors 08/10/24 timolol maleate 0.5 % eye drops 1 drp ophthalmic (eye) DAILY eye drops 08/10/24 sotalol 80 mg tablet 80 mg PO BID BP #180 TABLETS 08/17/24 acetaminophen 325 mg tablet 650 mg (2 x 325 mg) PO Q6H PRN PRN Pain Score 1-10 #100 tabs 09/09/24 alprazolam 0.25 mg tablet 0.25 mg PO Q6H PRN PRN Anxiety/Restlessness/Sleep 1 week #15 tabs 09/09/24 ferrous sulfate 325 mg (65 mg iron) tablet,delayed release 325 mg PO DAILY supplement #1 TAB 09/09/24 fluticasone propionate 50 mcg/actuation nasal spray,suspension 2 spray NASAL DAILY #1 BOTTLE 09/09/24 gabapentin 400 mg capsule 400 mg PO TID Nerve pain #90 caps 09/09/24 loperamide 2 mg capsule 2 mg PO Q4H PRN PRN diarrhea #1 cap 07/03/25 magnesium chloride 64 mg (magnesium chloride) tablet,delayed release (Mag 64) 128 mg (2 x 64 mg) PODAILY #30 tabs 09/09/24 oxycodone 5 mg tablet 5 mg PO Q6H PRN pain 1 week #15 tabs 09/09/24 potassium chloride 10 mEq tablet,extended release(part/cryst) 10 meq PO DAILYCM #30 tabs 09/09/24 sertraline 100 mg tablet 100 mg PO DAILY #30 tabs 09/09/24 aspirin 81 mg tablet 81 mg PO DAILY #1 TAB 09/10/24 Hospital Course Operations - (craniectomy 08/20/24 for excision of AV fistula and drainage of intracerebral hematoma. ) Summary of Care Provided Minutes Spent on Discharge: 45 Hospital Course: AMANDA REYNA, is a 69 YO F with a PMH of SVT, paroxysmal atrial fibrillation (not on anticoagulation), history of wide-complex tachycardia, coronary artery disease, Crohn's disease (follows with Dr. Kat), irritable bowel syndrome, essential tremor (on Mysoline and was referred to neurology by Dr. Page but, has not seen neurology yet) , resection of a meningioma in 2009, obesity, history ofpulmonary embolism (unprovoked), RLS, HLD, GERD, iron deficiency, tobacco dependence in remission, hypertension, anxiety/depression (with hx of panic attacks in past) and glaucoma who presented to the emergency department at [facility] on 08/17/2024 complaining of numbness onthe right side of her body. A stat noncontrast CT brain showed a left parietal intraparenchymal hemorrhage measuring up to 2.6 cm. Teleneurology was consultedand recommended transfer to [facility] for hemorrhagic stroke. They also recommended discussing with neurosurgery. CT was repeated at [facility] and demonstrated a left parietal hemorrhage measuring 2.4 cm x 1.9 cm x 2.5 cm without an underlying vascular malformation or aneurysm on CTA and with no midline shift. She was started on Keppra for seizure prophylaxis and an MRI of the brain was ordered. ASA was placed on hold. MRI of the brain on 08/18/2024 showed grossly stable size of the left parietal intraparenchymal hematoma with mild surrounding vasogenic edema with minimal local mass effect. There was an indeterminate rightfrontal bone lesion with mild associated contrast-enhancement and a small contrast-enhancing nodule in the right internal auditory canal suggestive of a small schwannoma. 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 She was taken to the OR on 08/20/2024 for resection of SM II AVF and evacuation of the hematoma. While in the hospital she was seen by PT/OT and ST. She was requiring MOD to total assist with ADL's and acute rehab was recommended at [place] from [facility]. She was transferred to the acute inpt rehab unit at [facility] on 08/29/24 for 3 hours of therapy daily to restore function/independence at or her level prior to the stroke. Amanda had many somatic complaints at presentation to rehab. She complained of chronic fatigue with the need to nap during the day, chronic headaches, chronic nausea, diarrhea and restless legs. She was taking both gabapentin and ropinirole. Iron studies were checked to rule out iron deficiency as the etiology of restless leg syndrome. She was iron deficient and she was given intravenous iron sucrose. She is on an oral iron supplement which she takes with orange juice but she is chronically on a PPI and still may not be able to absorb oral iron. Following iron sucrose we restarted ferrous sulfate with 1000mg of ascorbic acid once daily with a meal. An overnight trending pulse ox was ordered looking for obstructive sleep apnea as etiology of restless leg. The overnight trending pulse ox showed that 74. For 1% of the time her pulse ox was89% or less. She had 40 desaturation events lasting 60 seconds or longer. The longest desaturation event was 9 minutes and 48 seconds. She was started onoxygen supplementation at 2 L/min anytime she is sleeping. The restless leg symptoms improved greatly and the Ropinirole was weaned off. She c/o restless leg on in the evening but, it only involvedthe R leg and the symptoms were stiffness and muscle soreness. The sx resolved with Oxycodone and ambulation and then she could go to sleep and has been sleeping well through the night and awakening f eeling refreshed in the AM. She has chronic back pain with radicularsymptoms send she sees Dr. Hernandez for pain management. I suspect the pain in the right leg is secondary to chronic back pain/radicular pain and not due to restless leg. Somatic complaints are much less at [place] from rehab. She was having loose stool but she only had diarrhea during the day and never woke up to have a bowel movement at night. She denies any mucus or blood in her stools and she did not have any significant abdominal pain. I suspect the loose stool was secondary to uncontrolled anxiety/irritable bowel syndrome. She had been taking Wellbutrin for anxiety/depression but Wellbutrin does not treat anxiety. She has a long history of anxiety and has had severe panic attacks in the past requiring benzodiazepines. Wellbutrin was discontinued and she was started on sertraline 50 mg daily. She tolerated this dose well and prior to discharge it was increased to 100 mg daily. At times she feels much more anxious and so Xanax was ordered as needed and she is taken only 2 doses since it was ordered. It is helpful when she does take it. The BM's have decreased. On 09/09/24 she had no BM's. Her chronic TADEO's have resolved. She hasa good appetite and she is sleeping well at night. She denies felling depressed. She is much more alert during the day and not always napping. Potassium and mag were both low at admission. HCTZ was discontinued (she was taking this for leg edema due to venous insufficiency) and K and MAG were supplemented for a few days but, on follow up labs the Mag and K were both low after the supplementation was stopped. She was restarted on potassiumchloride 10 mEq daily and magnesium chloride 128 mg daily. At discharge she was given a lab requisition to obtain a BMP and magnesium in 1 week with the results to go to Dr. Page. She has had no atrial fibrillation anytime I have examined [facility] rehab and she denies palpitations. Amanda did very well in rehab. Her modified [place] score has gone from 4 at admission to rehab to 2 at discharge. She is able to ascend/descend 816 steps with 1 handrail and a straight cane at standby assist. She has ambulated up to 600 feet on various surfaces using a straight cane at standby assist. She has been ambulating on the rehab unit with a straight cane independently with no loss of balance. She is independent with eating, grooming, dressing, bathing, toileting and toilet transfer. We recommend supervision with tub/shower transfer for at least 1 week postdischarge. Amanda was discharged from acute inpatient rehab on 09/10/2024 to her home. She will have outpatient physical therapy at [facility] [facility]. The sleep lab will contact her to arrange an appointment for an overnight sleep study in the sleep lab at [facility]. All the documentation has been completed andthey have an order for the study. Messages were left with Dr. Page's officeand behavioral health and we requested they call her to schedule an appointment. She has an appointment with Dominik Medeiros on 09/21/2024 at 10 AM and I assume this is for follow-up at [facility] with neurosurgery. We will defer follow-up of the right frontal bone lesion and the nodule in the right auditory canal to neurosurgery. All dheeraj have been removed from the craniectomy incision and the incision is intact with no dehiscence, no discharge, no ngozi-incisional erythema and no significant swelling around theincision. She denies cephalgia. She will continue to follow-up with Dr. Kat for Crohn's disease and KIMBERLY Leyva for cardiology/A-fib. Physical Exam Const alert, oriented x3 and no apparent distress Constitutional Narrative: Making good eye contact, appropriate General Appearance: cooperative, comfortable and well kempt HEENT HEENT Narrative: Very dry MM. Scalp incision is healing well. There is no dehiscence, no discharge, no ngozi-incisional erythema and no significant swelling. She had no pain with palpation around the incision and she denied cephalgia today. Eyes PERRL, EOMs intact bilaterally, conjunctivae normal and no scleral icterus Eyes Narrative: No discharge from the eyes and no mattering of the eyelashes. General Eye: normal appearance of both eyes Neck no lymphadenopathy, supple, no JVD, No nodes and no carotid bruits Neck Narrative: Brisk carotid upstroke with good pulse volume. General: trachea midline Chest Chest: symmetrical chest wall rise Resp normal respiratory effort, normal air movement, no use of accessory muscles and clear to auscultation bilaterally Resp Narrative: Not tachypneic and no conversational dyspnea. Effort and Inspection: able to speak in complete sentences Cardio regular rate, regular rhythm, S1 normal heart sound, S2 normal heart sound, no murmurs, no rub and no gallops Cardio Narrative: No ectopy. She has been in normal sinus rhythm every time I have examined her on rehab. She denies palpitations and lightheadedness. GI normal to inspection, nondistended, normoactive bowel sounds, soft to palpation and non-tender GI Narrative: No guarding with palpation. Denies nausea, abdominal cramping and had no bowel movements on 09/09/2024. At the time I spoke to her on 09/10/2024 if she had not had any bowel movements that morning either. no CVA tenderness Narrative: Denies dysuria. Back/Spine Back/Spine Narrative: She has kyphosis. Has not had a BMD test in many years. The last bone mineral density at [facility] was in 2017 and at that time she had normal bone density. Extremity no clubbing, cyanosis or edema, no calf tenderness and no pedal edema Extremity Narrative: Negative Hardy's and Sandi's signs. SARA hose are in place. Skin Skin Narrative: No rashes, no skin breakdown. Rashes: no rashes Wound Narrative: The craniotomy incision is intact and sutured. There is no dehiscence. No purulent discharge. No ngozi-incisional erythema and no significant swelling around the incision. Neuro oriented x3, CN's II-XII intact bilaterally and no focal motor deficits Neuro Narrative: Tongue protrudes on the midline. Pupils are equal round and reactive to light and accommodation. Smooth pursuit but a few beats of nystagmus. Denies vertigo. Good strength in the arms and legs......no drift. Numbness R side. She had a recent surgery on the R thumb for severe OA.......has a scar. Good plantar flexion and dorsiflexion. No ataxia, No extinction. No visual field cuts. Normal speech. No aphasia or dysarthria. Psych affect normal, denies hallucinations, denies homicidal ideation and denies suicidal ideation Psych Narrative: Appropriate, making good eye contact. Able to stay on topic and focus. No flight of ideas. Does notappear anxious or depressed. Conversant and relating well to staff. Sleeping through the night now and feels much more rested in themorning. She is alert during the day and I see her up in the recliner rather than napping between therapy sessions. When she is anxious she does not outwardly appear very anxious but, diarrhea increases and she has more somatic complaints when she is anxious. Appearance: grossly normal and well kempt Attitude: calm and engaged Activity / Motor Behavior: appropriate eye contact Weight / BMI Weight Weight: 247 lb 3 oz Body Mass Index (BMI) 35.4 ABG / Lab / Microbiology Data 09/03/24 06:49 09/07/24 07:29 D/C Instructions Discharge Diet: - (Low-fat, low-salt) Weight Bearing Status: Full weight bearing Keep extremity elevated above heart level: Legs Call your doctor if your incision/area has: Continuous Slow Oozing, Sudden Increased Bleeding, Increased Pain/ Swelling, Increased Redness, Foul Smelling Discharge and Swelling at the incision site Call your doctor if you observe: Fever of 101 or Higher, Shortness of breath, Dizziness, Fainting spells, Swelling in the ankles, Chest pain, Increased palpitations (irregular heartbeat), Calf discomfort, Uncontrolled pain and - (STROKE symptoms: facial droop, slurred speech, inability to get wordsout, weakness on 1 side of the body and not the other, numbness on 1 side of the bodyand not the other, inability to maintain your balance sitting or standing, vertigo. ) Suture Line Care: Avoid Pulling/Pushing and Avoid Pinching/Bending Cleanse incision/area with: Soap & Water Additional Dressing/Incision Instructions: No dressing is need. Leave the incision open to air. DC O2, CPAP, BIPAP Needs Home O2 Discharge instructions: Yes Type of respiratory needs?: Oxygen Oxygen frequency: With Sleeping Oxygen liters per minute when sleepin DC home with Oxygen: Yes Home O2 MD Review: I have reviewed the oxygen testing, and the patient qualifies for home oxygen equipment and portability. The patient is mobile in the home and the community. Pending Tests Upon Discharge: none Please Follow Up With: Ottoniel Page When: a message was left with the office to call you with and appt. You should be seen within 7-10 days post discharge from rehab. Other appts need to be made.....listed at the end of the discharge instructions. 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 * Patients 75 years or YOUNGER should receive HIGH intensity statin dose unless contraindicated. You will be required to document reason for non-treatment if statin daily dose does not meet guidelines. HIGH DOSE STATIN THERAPY DAILY Atorvastatin > than or = to 40 mg Rosuvastatin > than or = to 20 mg Amlodipine + Atorvastatin > than or = to 2.5/40 mg Ezetimibe + Simvastatin 10/80 mg Simvastatin 80mg Discharge Plan Admission Admit Date/Time: 08/29/24 12:48 Primary Reason for Your Visit: Debility secondary to craniotomy for left parietal intraparenchymal hemorrh Attending Provider: Debi Deleon Primary Care Provider: Ottoniel Page Instructions Patient Instructions: Caring for Your Incision Additional Instructions / Restrictions: 1. I believe the restless leg was due to untreated sleep apnea and iron deficiency. I also believe the Ropinirole was causing augmentation and makingthings worse. I believe the Ropinirole was contributing to chronic nausea, lightheadedness, fatigue and headache. Since the ropinirole has been decre asedand we have been applying oxygen anytime you are sleeping and we have given you IV iron the restless less is much better. Actually I think the soreness/stiffness and pain in the legs you are having at the end of the day aredue to your chronic back problems and the increased amount of exercise you have been doing. I think it would be a good idea to continue to use Oxycodone in theevening to treat this. since the oxygen you are sleeping good at night and you are very alert during the day and taking less naps. The sleep lab will call youto schedule a sleep study and we have ordered oxygen for you to have at home anytime you are sleeping. 2. Outwardly you do not appear very anxious but, you have a lot of anxiety and you have even been treated for panic attacks in the past. Wellbutrin is a good antidepressant but, it does not treat anxiety and in fact it can cause increasedanxiety, insomnia and headaches. WE have discontinued Wellbutrin and started you a medication called Sertraline that treats both anxiety and depression. It takesthis medication 3-4 weeks to get the full effect. In the meantime I am giving you a prescription for Xanax (also called alprazolam) to take every 4-6 hours as needed for anxiety/panic attacks. You have not had to take much of this while on rehab. I think the diarrhea has more to do with irritable bowel syndrome (IBS) rather than Crohn's. Anxiety increase IBS sx. With IBS the diarrhea happens usually only during the day and does not wake you up at night. With IBS you will not have mucous or blood in the stool. I always think medication and counselling work much better together than either alone. I thinkyou may benefit from follow up with behavioral health at [facility]. 3. I discontinued the hydrochlorothiazide (HCTZ) that you were taking. Your potassium and magnesiumhave both been low despite discontinuing hydrochlorothiazide. You will now take a potassium supplement and a magnesium supplement. We should recheck your lab in approximately 1 week to make sure that potassium/magnesium are now within normal limits. The swelling in your legs is very well-controlledwith compression stockings. Swelling is always worse in the summer because it is hot and this leadsto dilation of the veins and increased swelling in the legs, especially if you are not elevating them. Watch your salt intake because a high salt diet will increase peripheral edema. Diuretics generally only help once you are dehydrated and diuretics also decrease potassium and magnesium and low potassium and magnesium can lead to a problem with the rhythm of your heart called atrial fibrillation. Losing weightwill help a lot with swollen ankles and it will also help with the chronic back pain. 4. You have done very well in therapy and we have all appreciated your hard work and your willingness to do whatever we have asked of you.....with a smile on your face. If you or any of your family have questions after you leave rehabplease do not hesitate to call me. OFFICE: [phone] CELL: [phone] NURSES STATION ON REHAB: [phone] Discharge Orders/Prescriptions Prescriptions: New acetaminophen 325 mg Tablet 650 mg PO Q6H PRN PRN (Reason: Pain Score 1-10) Qty: 100 0RF alprazolam 0.25 mg Tablet 0.25 mg PO Q6H PRN PRN (Reason: Anxiety/Restlessness/Sleep) 7 Days Qty: 15 0RF loperamide 2 mg Capsule 2 mg PO Q4H PRN PRN (Reason: diarrhea) Qty: 1 0RF fluticasone propionate 50 mcg/actuation [place],Suspension 2 spray NASAL DAILY Qty: 1 0RF magnesium chloride [Mag 64] 64 mg Tablet,Delayed Release (Dr/Ec) 128 mg PO DAILY Qty: 30 0RF sertraline 100 mg Tablet 100 mg PO DAILY Qty: 30 0RF potassium chloride 10 mEq Tablet,Er Particles/Crystals 10 meq PO DAILYCM Qty: 30 0RF aspirin 81 mg tablet 81 mg PO DAILY Qty: 1 0RF Continued pantoprazole [Protonix] 40 mg tablet,delayed release (DR/EC) 40 mg PO DAILY cephalexin 250 mg tablet 250 mg PO QHS primidone 50 mg tablet 100 mg PO BID hyoscyamine sulfate 0.125 mg tablet,disintegrating 0.125 mg PO Q6 PRN (Reason: nausea/vomiting) clotrimazole 1 % cream 1 applic topical 0600,2200 PRN (Reason: Skin irritation) Rx Instructions: Abdominal folds betamethasone dipropionate 0.05 % ointment 1 applic topical QDAY PRN (Reason: skin irritation) Rx Instructions: Apply to hands clobetasol 0.05 % cream 1 applic topical 0600,2200 PRN (Reason: Skin irritation) Rx Instructions: Apply to vaginal area timolol maleate 0.5 % drops 1 drp ophthalmic (eye) DAILY Rx Instructions: Apply to Left eye latanoprost 1 DROP bottle 1 drp EACH EYE QHS promethazine 25 mg Tablet 25 mg PO Q6H PRN (Reason: Nausea) gabapentin 400 mg capsule 400 mg PO TID Qty: 90 0RF ferrous sulfate 325 mg (65 mg iron) tablet,delayed release (DR/EC) 325 mg PO DAILY Qty: 1 0RF Rx Instructions: Take this with 1,000 mg of Vitamin C. TAke with a meal. oxycodone 5 mg tablet 5 mg PO Q6H PRN (Reason: pain) 7 Days Qty: 15 0RF sotalol 80 mg tablet 80 mg PO BID Qty: 180 3RF Discontinued ropinirole 0.5 mg tablet 0.5 mg PO TID bupropion HCl 150 mg tablet extended release 24 hr 150 mg PO QDAY hydrochlorothiazide 25 MG tablet 25 mg PO DAILY enoxaparin [Lovenox] 40 mg/0.4 mL syringe 40 mg subcut DAILY Other Ambulatory Orders: Basic Metabolic Profile (BMP) (Routine) Timeframe: 1 Week Facility: [facility] - Location: Laboratory Ordered By: Dr. Debi Deleon Magnesium (Routine) Timeframe: 1 Week Facility: [facility] - Location: Laboratory Ordered By: Dr. Debi Deleon Referrals / Follow Up: sleep study [Other] (Hospital will call you to set up appointment ) Ottoniel Page DO [Primary Care Provider] - (message left with office) Jayson Baker DO [Med Staff - Child Monitor] - (message left for office to call and make appointment ) Dominik Medeiros NP-C [Non-Staff] - 09/21/24 10:00 am Disposition Disposition (needs filled in before D/C Order can be placed): Home, Self Care Charges/Coding Visit Charges Inpatient E&M: 44395 Disch Hosp >30min 09/10/24 0947 Cosigner Signature (if applicable): CC: LUBA Medeiros; Dr. Ottoniel Page DO; Dr. Debi Deleon DO; Dr. Jayson Baker DO; Dr. Facundo Kat MD; Dr. David Tyson MD; KIMBERLY Seo~ Signed [facility]07-03-2025 Discharge summary Author [facility] Note Date/Time September 09, 2024 4:57p m [facility] Medical Records Department [address] [place] [address] Instructions for Home/Discharge Instructions 09/09/24 1225 MR#: [id number] Acct: [id number] Name: AMANDA REYNA Rep #:[id number] : 1955 69 From: Debi Deleon DO PCP: Dr. Ottoniel Page DO Status:ADM IN Discharge Instructions Diet Discharge Diet: - (Low-fat, low-salt) DC O2, CPAP, BIPAP needs Home O2 Discharge instructions: Yes Type of respiratory needs?: Oxygen Oxygen frequency: With Sleeping Oxygen liters per minute when sleepin Dressing / Incision Discharge Activity: May Not Drive and - (use a cane or a Walker for ambulation. ) Weight Bearing Status: Full weight bearing Keep extremity elevated above heart level: Legs Dressing / Incision Call your doctor if your incision/area has: Continuous Slow Oozing, Sudden Increased Bleeding, Increased Pain/ Swelling, Increased Redness, Foul Smelling Discharge and Swelling at the incision site Call your doctor if you observe: Fever of 101 or Higher, Shortness of breath, Dizziness, Fainting spells, Swelling in the ankles, Chest pain, Increased palpitations (irregular heartbeat), Calf discomfort, Uncontrolled pain and - (STROKE symptoms: facial droop, slurred speech, inability to get words out, weakness on 1 side of the body and not the other, numbness on 1 side of the bodyand not the other, inability to maintain your balance sitting or standing, vertigo. ) Suture Line Care: Avoid Pulling/Pushing and Avoid Pinching/Bending Cleanse incision/area with: Soap & Water Additional Dressing/Incision Instructions:: No dressing is need. Leave the incision open to air. Follow Up Care Please Follow Up With: Ottoniel Page OLS When: a message was left with the office to call you with and appt. You should be seen within 7-10 days post discharge from rehab. Other appts need to be made.....listed at the end of the discharge instructions. Test Results: Test results from this visit will be discussed in further detail at your follow- up appointment, if applicable. Pending Tests Upon Discharge: none Discharge Plan Admission Admit Date/Time: 08/29/24 12:48 Primary Reason for Your Visit: Debility secondary to craniotomy for left parietal intraparenchymal hemorrh Attending Provider: Debi Deleon Primary Care Provider: Ottoniel Page Instructions Patient Instructions: Caring for Your Incision Additional Instructions / Restrictions: 1. I believe the restless leg was due to untreated sleep apnea and iron deficiency. I also believe the Ropinirole was causing augmentation and makingthings worse. I believe the Ropinirole was contributing to chronic nausea, lightheadedness, fatigue and headache. Since the ropinirole has been decreasedand we have been applying oxygen anytime you are sleeping and we have given you IV iron the restless less is much better. Actually I think the soreness/stiffness and pain in the legs you are having at the end of the day aredue to your chronic back problems and the increased amount of exercise you have been doing. I think it would be a [facility]. since the oxygen you are sleeping good at night and you are very alert during the day and taking less naps. The sleep lab will call youto schedule a sleep study and we have ordered oxygen for you to have at home anytime you are sleeping. 2. Outwardly you do not appear very anxious but, you have a lot of anxiety and you have even been treated for panic attacks in the past. Wellbutrin is a good antidepressant but, it does not treat anxiety and in fact it can cause increasedanxiety, insomnia and headaches. WE have discontinued Wellbutrin and started you a medication called Sertraline that treats both anxiety and depression. It takes this medication 3-4 weeks to get the full effect. In the meantime I am giving you a prescription for Xanax (also called alprazolam) to take every 4-6 hours as needed for anxiety/panic attacks. You have not had to take much of this while on rehab. I think the diarrhea has more to do with irritable bowel syndrome (IBS) rather than Crohn's. Anxiety increase IBS sx. With IBS the diarrhea happens usually only during the day and does not wake you up at night. With IBS you will not have mucous or blood in the stool. I always think medication and counselling work much better together than either alone. I thinkyou may benefit from follow up with behavioral health at [facility]. 3. I discontinued the hydrochlorothiazide (HCTZ) that you were taking. Your potassium and magnesium have both been low despite discontinuing hydrochlorothiazide. You will now take a potassium supplement and a magnesium supplement. We should recheck your lab in approximately 1 week to make sure that potassium/magnesium are now within normal limits. The swelling in your legs is very well-controlled with compression stockings. Swelling is always worse in the summer because it is hot and this leads to dilation of the veins and increased swelling in the legs, especially if you are not elevating them. Watch your salt intake because a high salt diet will increase peripheral edema. Diuretics generally only help once you are dehydrated and diuretics also decrease potassium and magnesium and low potassium and magnesium can lead to a problem with the rhythm of your heart called atrial fibrillation. Losing weightwill help a lot with swollen ankles and it will also help with the chronic back pain. 4. You have done very well in therapy and we have all appreciated your hard work and your willingness to do whatever we have asked of you.....with a smile on your face. If you or any of your family have questions after you leave rehabplease do not hesitate to call me. OFFICE: [phone] CELL: [phone] NURSES STATION ON REHAB: [phone] Discharge Orders/Prescriptions Prescriptions: New acetaminophen 325 mg Tablet 650 mg PO Q6H PRN PRN (Reason: Pain Score 1-10) Qty: 100 0RF alprazolam 0.25 mg Tablet 0.25 mg PO Q6H PRN PRN (Reason: Anxiety/Restlessness/Sleep) 7 Days Qty: 15 0RF loperamide 2 mg Capsule 2 mg PO Q4H PRN PRN (Reason: diarrhea) Qty: 1 0RF fluticasone propionate 50 mcg/actuation [place],Suspension 2 spray NASAL DAILY Qty: 1 0RF magnesium chloride [Mag 64] 64 mg Tablet,Delayed Release (Dr/Ec) 128 mg PO DAILY Qty: 30 0RF sertraline 100 mg Tablet 100 mg PO DAILY Qty: 30 0RF potassium chloride 10 mEq Tablet,Er Particles/Crystals 10 meq PO DAILYCM Qty: 30 0RF Continued pantoprazole [Protonix] 40 mg tablet,delayed release (DR/EC) 40 mg PO DAILY cephalexin 250 mg tablet 250 mg PO QHS primidone 50 mg tablet 100 mg PO BID hyoscyamine sulfate 0.125 mg tablet,disintegrating 0.125 mg PO Q6 PRN (Reason: nausea/vomiting) clotrimazole 1 % cream 1 applic topical 0600,2200 PRN (Reason: Skin irritation) Rx Instructions: Abdominal folds betamethasone dipropionate 0.05 % ointment 1 applic topical QDAY PRN (Reason: skin irritation) Rx Instructions: Apply to hands clobetasol 0.05 % cream 1 applic topical 0600,2200 PRN (Reason: Skin irritation) Rx Instructions: Apply to vaginal area timolol maleate 0.5 % drops 1 drp ophthalmic (eye) DAILY Rx Instructions: Apply to Left eye latanoprost 1 DROP bottle 1 drp EACH EYE QHS promethazine 25 mg Tablet 25 mg PO Q6H PRN (Reason: Nausea) gabapentin 400 mg capsule 400 mg PO TID Qty: 90 0RF ferrous sulfate 325 mg (65 mg iron) tablet,delayed release (DR/EC) 325 mg PO DAILY Qty: 1 0RF Rx Instructions: Take this with 1,000 mg of Vitamin C. TAke with a meal. oxycodone 5 mg tablet 5 mg PO Q6H PRN (Reason: pain) 7 Days Qty: 15 0RF sotalol 80 mg tablet 80 mg PO BID Qty: 180 3RF Discontinued ropinirole 0.5 mg tablet 0.5 mg PO TID bupropion HCl 150 mg tablet extended release 24 hr 150 mg PO QDAY hydrochlorothiazide 25 MG tablet 25 mg PO DAILY enoxaparin [Lovenox] 40 mg/0.4 mL syringe 40 mg subcut DAILY Referrals / Follow Up: sleep study [Other] (Hospital will call you to set up appointment ) Ottoniel Page DO [Primary Care Provider] - (message left with office) Jayson Baker DO [Med Staff - Child Monitor] - (message left for office to call and make appointment ) Dominik Medeiros NP-C [Non-Staff] - 09/21/24 10:00 am Disposition Disposition (needs filled in before D/C Order can be placed): Home, Self Care 09/09/24 1657<Electronically signed by Debi Deleon DO>Debi Deleon DO CC: Dr. Ottoniel Page DO ~ Signed [facility] Work Phone: 1(388) 993-832707-03-2025 Discharge summary [facility] Medical Records Department [address] [place] [id number] Instructions for Home/Discharge Instructions 09/09/24 1225 MR#: [id number] Acct: [id number] Name: AMANDA REYNA Rep #:[id number] : 1955 69 From: Debi Deleon DO PCP: Dr. Ottoniel Page DO Status:ADM IN Discharge Instructions Diet Discharge Diet: - (Low-fat, low-salt) DC O2, CPAP, BIPAP needs Home O2 Discharge instructions: Yes Type of respiratory needs?: Oxygen Oxygen frequency: With Sleeping Oxygen liters per minute when sleepin Dressing / Incision Discharge Activity: May Not Drive and - (use a cane or a Walker for ambulation. ) Weight Bearing Status: Full weight bearing Keep extremity elevated above heart level: Legs Dressing / Incision Call your doctor if your incision/area has: Continuous Slow Oozing, Sudden Increased Bleeding, Increased Pain/ Swelling, Increased Redness, Foul Smelling Discharge and Swelling at the incision site Call your doctor if you observe: Fever of 101 or Higher, Shortness of breath, Dizziness, Fainting spells, Swelling in the ankles, Chest pain, Increased palpitations (irregular heartbeat), Calf discomfort, Uncontrolled pain and - (STROKE symptoms: facial droop, slurred speech, inability to get wordsout, weakness on 1 side of the body and not the other, numbness on 1 side of the bodyand not the other, inability to maintain your balance sitting or standing, vertigo. ) Suture Line Care: Avoid Pulling/Pushing and Avoid Pinching/Bending Cleanse incision/area with: Soap & Water Additional Dressing/Incision Instructions:: No dressing is need. Leave the incision open to air. Follow Up Care Please Follow Up With: Ottoniel Page When: a message was left with the office to call you with and appt. You should be seen within 7-10 days post discharge from rehab. Other appts need to be made.....listed at the end of the discharge instructions. Test Results: Test results from this visit will be discussed in further detail at your follow- up appointment, if applicable. Pending Tests Upon Discharge: none Discharge Plan Admission Admit Date/Time: 08/29/24 12:48 Primary Reason for Your Visit: Debility secondary to craniotomy for left parietal intraparenchymal hemorrh Attending Provider: Debi Deleon Primary Care Provider: Ottoniel Page Instructions Patient Instructions: Caring for Your Incision Additional Instructions / Restrictions: 1. I believe the restless leg was due to untreated sleep apnea and iron deficiency. I also believe the Ropinirole was causing augmentation and makingthings worse. I believe the Ropinirole was contributing to chronic nausea, lightheadedness, fatigue and headache. Since the ropinirole has been decre asedand we have been applying oxygen anytime you are sleeping and we have given you IV iron the restless less is much better. Actually I think the soreness/stiffness and pain in the legs you are having at the end of the day aredue to your chronic back problems and the increased amount of exercise you have been doing. I think it would be a good idea to continue to use Oxycodone in theevening to treat this. since the oxygen you are sleeping good at night and you are very alert during the day and taking less naps. The sleep lab will call youto schedule a sleep study and we have ordered oxygen for you to have at home anytime you are sleeping. 2. Outwardly you do not appear very anxious but, you have a lot of anxiety and you have even been treated for panic attacks in the past. Wellbutrin is a good antidepressant but, it does not treat anxiety and in fact it can cause increasedanxiety, insomnia and headaches. WE have discontinued Wellbutrin and started you a medication called Sertraline that treats both anxiety and depression. It takesthis medication 3-4 weeks to get the full effect. In the meantime I am giving you a prescription for Xanax (also called alprazolam) to take every 4-6 hours as needed for anxiety/panic attacks. You have not had to take much of this while on rehab. I think the diarrhea has more to do with irritable bowel syndrome (IBS) rather than Crohn's. Anxiety increase IBS sx. With IBS the diarrhea happens usually only during the day and does not wake you up at night. With IBS you will not have mucous or blood in the stool. I always think medication and counselling work much better together than either alone. I thinkyou may benefit from follow up with behavioral health at Discharge. 3. I discontinued the hydrochlorothiazide (HCTZ) that you were taking. Your potassium and magnesiumhave both been low despite discontinuing hydrochlorothiazide. You will now take a potassium supplement and a magnesium supplement. We should recheck your lab in approximately 1 week to make sure that potassium/magnesium are now within normal limits. The swelling in your legs is very well-controlledwith compression stockings. Swelling is always worse in the summer because it is hot and this leadsto dilation of the veins and increased swelling in the legs, especially if you are not elevating them. Watch your salt intake because a high salt diet will increase peripheral edema. Diuretics generally only help once you are dehydrated and diuretics also decrease potassium and magnesium and low potassium and magnesium can lead to a problem with the rhythm of your heart called atrial fibrillation. Losing weightwill help a lot with swollen ankles and it will also help with the chronic back pain. 4. You have done very well in therapy and we have all appreciated your hard work and your willingness to do whatever we have asked of you.....with a smile on your face. If you or any of your family have questions after you leave rehabplease do not hesitate to call me. OFFICE: [phone] CELL: [phone] NURSES STATION ON REHAB: [phone] Discharge Orders/Prescriptions Prescriptions: New acetaminophen 325 mg Tablet 650 mg PO Q6H PRN PRN (Reason: Pain Score 1-10) Qty: 100 0RF alprazolam 0.25 mg Tablet 0.25 mg PO Q6H PRN PRN (Reason: Anxiety/Restlessness/Sleep) 7 Days Qty: 15 0RF loperamide 2 mg Capsule 2 mg PO Q4H PRN PRN (Reason: diarrhea) Qty: 1 0RF fluticasone propionate 50 mcg/actuation [place],Suspension 2 spray NASAL DAILY Qty: 1 0RF magnesium chloride [Mag 64] 64 mg Tablet,Delayed Release (Dr/Ec) 128 mg PO DAILY Qty: 30 0RF sertraline 100 mg Tablet 100 mg PO DAILY Qty: 30 0RF potassium chloride 10 mEq Tablet,Er Particles/Crystals 10 meq PO DAILYCM Qty: 30 0RF Continued pantoprazole [Protonix] 40 mg tablet,delayed release (DR/EC) 40 mg PO DAILY cephalexin 250 mg tablet 250 mg PO QHS primidone 50 mg tablet 100 mg PO BID hyoscyamine sulfate 0.125 mg tablet,disintegrating 0.125 mg PO Q6 PRN (Reason: nausea/vomiting) clotrimazole 1 % cream 1 applic topical 0600,2200 PRN (Reason: Skin irritation) Rx Instructions: Abdominal folds betamethasone dipropionate 0.05 % ointment 1 applic topical QDAY PRN (Reason: skin irritation) Rx Instructions: Apply to hands clobetasol 0.05 % cream 1 applic topical 0600,2200 PRN (Reason: Skin irritation) Rx Instructions: Apply to vaginal area timolol maleate 0.5 % drops 1 drp ophthalmic (eye) DAILY Rx Instructions: Apply to Left eye latanoprost 1 DROP bottle 1 drp EACH EYE QHS promethazine 25 mg Tablet 25 mg PO Q6H PRN (Reason: Nausea) gabapentin 400 mg capsule 400 mg PO TID Qty: 90 0RF ferrous sulfate 325 mg (65 mg iron) tablet,delayed release (DR/EC) 325 mg PO DAILY Qty: 1 0RF Rx Instructions: Take this with 1,000 mg of Vitamin C. TAke with a meal. oxycodone 5 mg tablet 5 mg PO Q6H PRN (Reason: pain) 7 Days Qty: 15 0RF sotalol 80 mg tablet 80 mg PO BID Qty: 180 3RF Discontinued ropinirole 0.5 mg tablet 0.5 mg PO TID bupropion HCl 150 mg tablet extended release 24 hr 150 mg PO QDAY hydrochlorothiazide 25 MG tablet 25 mg PO DAILY enoxaparin [Lovenox] 40 mg/0.4 mL syringe 40 mg subcut DAILY Referrals / Follow Up: sleep study [Other] (Hospital will call you to set up appointment ) Ottoniel Page DO [Primary Care Provider] - (message left with office) Jayson Baker DO [Med Staff - Child Monitor] - (message left for office to call and make appointment ) Dominik Medeiros NP-C [Non-Staff] - 09/21/24 10:00 am Disposition Disposition (needs filled in before D/C Order can be placed): Home, Self Care 09/09/24 1657Debi Deleon DO CC: Dr. Ottoniel Page DO ~ Signed [facility]07-03-2025 [facility] Medical Records Department [address] [place] [address] Discharge Summary 09/09/24 1655 MR#: [id number] Acct: [id number] Name: AMANDA REYNA Rep #: [id number] : 1955 69 From: Debi Deleon DO PCP: Dr. Ottoniel Page DO Status:ADM IN Location: [place] [address] Providers Date of Admission: 08/29/24 Date of Discharge: 09/10/24 Primary Care Physician: Dr. 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 (4) Essential tremor: Status: Chronic Code(s): G25.0 - Essential tremor Plan: Will continue Mysoline. (5) Paroxysmal atrial fibrillation: Status: Chronic Code(s): I48.0 - Paroxysmal atrial fibrillation Plan: Will continue to follow with [facility]. She was in the ED a few days prior to the intracerebral hemorrhage for atrial fibrillation with rapid ventricular response. The episode was prolonged but she spontaneously converted while in the emergency department. She is on metoprolol. She is not on an anticoagulant. (6) Essential (primary) hypertension: Status: Chronic Code(s): I10 - Essential (primary) hypertension Plan: BP is well controlled. (7) Hyperlipidemia: Status: Chronic Code(s): E78.5 - Hyperlipidemia, unspecified Qualifiers: Hyperlipidemia type: pure hypercholesterolemia Qualified Code(s): E78.00 - Pure hypercholesterolemia, unspecified; E78.0 - Pure hypercholesterolemia Plan: Not on a statin. Defer treatment to Dr. Page. (8) Anxiety and depression: Status: Chronic Code(s): F41.9 - Anxiety disorder, unspecified; F32.9 - Major depressive disorder, single episode, unspecified Plan: Predominantly anxious. She has a hx of panic attacks in the past and was on Benzo's. Wellbutrin was discontinued and she was started on Sertraline and is tolerating well with less anxiety. Now sleeping well at night. RAre use of low dose PRN Xanax. Is agreeable to following up with behavioral health for counselling. (9) Restless legs: Status: Chronic Code(s): G25.81 - Restless legs syndrome Plan: Ropinirole was weaned off due to chronic nausea, diarrhea and fatigue. Iron studies revealed iron deficiency and she received IV iron sucrose. She is chronically on a PPI and even though she takes the oral iron supplement with orange juice she may not be absorbing the iron. An overnight trending pulse ox was done and the O2 sat was <89% 75% of the time she was monitored. She was placed on supplemental oxygen at night and since then the restless leg has markedly improved. She has been c/o R leg pain at the end of the day and she will relate this to restless leg but, it resolves with Oxycodone. I suspect the pain is related to chronic low back pain with radicular pain that has been exacerbated because she has been doing 3 hours of therapy daily and not due to RLS. She will continue to follow with Dr. Hernandez post DC from rehab. (10) Hypoxemia associated with sleep: Status: Chronic Code(s): G47.36 - Sleep related hypoventilation in conditions classified elsewhere Plan: Overnight trending pulse ox was repeated the night prior to DC from rehab and it continues to show hypoxemia with sleep. 47.91% of the time the pulse ox was 89 or less and she had 16 desaturations lasting 60 sec.......the longest desauration event lasted 18 minutes. (11) JANNETH (obstructive sleep apnea): Status: Suspected Code(s): G47.33 - Obstructive sleep apnea (adult) (pediatric) Plan: arranged for home O2 at DC. 2 LPM. The sleep lab has an order for a sleep study and all documentation for the test has been completed. The sleep lab will contact her to schedule a formal sleep study and then she will follow up with pulmonary medicine for treatment. (12) Anxiety: Status: Chronic Code(s): F41.9 - Anxiety disorder, unspecified Plan: Chronic long standing anxiety. Recommend psychotherapy......pt agreeable to referral to behavioral health. Referral was made. Started on Sertraline at admission to rehab. she did not feel the Wellbutrin was helping and she had chronic TADEO's. Wellbutrin does not treat anxiety and can actually increase anxiety. She is tolerating Sertraline well. No longer has chronic nausea. She is sleeping well. Rare use of Xanax 0.25 mg. TADEO's are much better. (13) Glaucoma: Status: Chronic Code(s): H40.9 - Unspecified glaucoma Qualifiers: Glaucoma type: unspecified Laterality: bilateral Qualified Code(s): (more content not included)...[facility]07-03-2025 Progress note Author Debi Deleon [facility] Note Date/Time September 09, 2024 10:42 am [facility] Medical Records Department [address] [place] [address] Progress Note 09/09/24 1018 MR#: [id number] Acct: [id number] Name: AMANDA REYNA Rep #:[id number] : 1955 69 From: Debi Densonrowdy PCP: Dr. Ottoniel Page, DO Status:ADM IN Location: [place] [address] Subjective Subjective Сергей was seen on team rounds today. Afebrile VSS -blood pressure is well-controlled. Maintaining appropriate oxygen saturation on RA Oral intake - FOOD good FLUIDS good Had 3 BM's yesterday.....she generally takes 2 mg of Imodium with each BM. She has not had any BM's yet today.......she has usually had 2 by this time of the day. Discussed with nursing - no problems that need addressed Reviewed the THERAPY notes Medication list reviewed. Took and Oxycodone around 8 last night and went to sleep about 10:30. Slept through the night and awoke feeling refreshed today. Denies nausea. No TADEO, lightheadedness, CP, SOB, palpitations, N/V/dysuria or calf pain. It is not really restless leg she is having at night......she has chronic back pain and radicular pain and she has been doing 3 hours of therapy daily and the pain is more likely than not due to increased activity rather than restless leg. Did not have to take a Xanax for the past 24H....has only taken 1 since it was ordered. She is very alert during the day and not frequently napping since the oxygen wasordered anytime she was sleeping. Objective Data Objective Data Vital Signs: Vital Signs Temp Pulse Resp BP Pulse Ox O2 Del Method O2 Flow Rate 98.6 F 63 16 124/67 H 96 Nasal Cannula 2 09/09/24 05:38 09/09/24 05:38 09/09/24 05:38 09/09/24 05:38 09/09/24 05:38 09/09/24 05:38 09/09/24 06:32 FiO2 21 08/30/24 21:37 Oxygen Flow Rate (L/min) 2 Oxygen Delivery Method Nasal Cannula Weight: 244 lb 11.41 oz Body Mass Index (BMI) 35.0 Intake & Output: Intake and Output for Last 24 Hours 09/07/24 09/08/24 09/09/24 23:59 23:59 23:59 Intake Total 1140 / 1140 1840 / 1840 760 / 760 Output Total 600 / 600 200 / 200 Balance 540 / 540 1640 / 1640 760 / 760 Lab / Micro Data 09/03/24 06:49 09/07/24 07:29 Labs: Laboratory Results - last 24 hr 09/07/24 07:29: RBC Folate Hemolysate 499.0, RBC Folate 1251, Hematocrit 39.9 Physical Exam Const alert, oriented x3 and no apparent distress General Appearance: cooperative Neck supple Resp clear to auscultation bilaterally Cardio regular rate, regular rhythm and no gallops GI normal to inspection, nondistended, normoactive bowel sounds, soft to palpation and non-tender GI Narrative: Denies nausea and abdominal pain today. Has had no bowel movements today yet. Extremity no calf tenderness General Extremity: Negative for edema Skin Skin Narrative: Cranial incision is intact with no dehiscence, no ngozi-incisional erythema and no discharge. Psych cooperative Psych Narrative: Less anxious. Somatic complaints have diminished significantly since we have discontinued Wellbutrin and instituted an SSRI and as needed Xanax. I suspect the Wellbutrin was exacerbating the anxiety. She also has a hx of panic attacksin the past. Making good eye contact with me. Interacting well with staff. Talkative, pleasant, engaged in our conversations. 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 PLAN: Plan 1. Continue therapy 2. DC ropinirole at at bedtime 3. Sertraline was increased to 100 mg daily today 4. We will need an outpatient sleep study at discharge or following discharge from rehab 5. Will need an overnight trending pulse ox the night before planned discharge to qualify her for home oxygen until she can be treated for suspected JANNETH we have been able to discontinue ropinirole while she has been on rehab. Ropinirole likely contributed to chronic nausea and diarrhea. If may be very difficult to arrange home O2 over the holiday weekend if she gets cut. She is doing well and will likely be ready for DC early next week. 6. We have treated her for iron deficiency which contributes to restless leg while she is on rehab. 7. I feel the sertraline is helping with control of anxiety. Will continue Xanax as needed for breakthrough anxiety. Recommend follow-up with behavioral health postdischarge from rehab. 8. Craniotomy incision is intact with no dehiscence, no discharge and no ngozi-incisional erythema. She denies headache. No lightheadedness. Charges/Coding Visit Charges Inpatient E&M: 27543 Subs Hosp L2 09/09/24 1042 <Electronically signed by Debi Deleon DO> Debi Deleon DO Cosigner Signature (if applicable): CC: ~ Signed [facility] Work Phone: 1([phone]) 569-637607-03-2025 Progress note [facility] Medical Records Department [address] [place] [id number] Progress Note 09/09/24 1018 MR#: [id number] Acct: [id number] Name: AMANDA REYNA Rep #:[id number] : 1955 69 From: Debi Deleon DO PCP: Dr. Ottoniel Page, DO Status:ADM IN Location: [id number] Subjective Subjective Сергей was seen on team rounds today. Afebrile VSS -blood pressure is well-controlled. Maintaining appropriate oxygen saturation on RA Oral intake - FOOD good FLUIDS good Had 3 BM's yesterday.....she generally takes 2 mg of Imodium with each BM. She has not had any BM'syet today.......she has usually had 2 by this time of the day. Discussed with nursing - no problems that need addressed Reviewed the THERAPY notes Medication list reviewed. Took and Oxycodone around 8 last night and went to sleep about 10:30. Slept through the night and awoke feeling refreshed today. Denies nausea. No TADEO, lightheadedness, CP, SOB, palpitations, N/V/dysuria or calf pain. It is not really restless leg she is having at night......she has chronic back pain and radicular pain and she has been doing 3 hours of therapy daily and the pain is more likely than not due to increased activity rather than restless leg. Did not have to take a Xanax for the past 24H....has only taken 1 since it was ordered. She is very alert during the day and not frequently napping since the oxygen wasordered anytime shewas sleeping. Objective Data Objective Data Vital Signs: Vital Signs Temp Pulse Resp BP Pulse Ox O2 Del Method O2 Flow Rate 98.6 F 63 16 124/67 H 96 Nasal Cannula 2 09/09/24 05:38 09/09/24 05:38 09/09/24 05:38 09/09/24 05:38 09/09/24 05:38 09/09/24 05:38 09/09/24 06:32 FiO2 21 08/30/24 21:37 Oxygen Flow Rate (L/min) 2 Oxygen Delivery Method Nasal Cannula Weight: 244 lb 11.41 oz Body Mass Index (BMI) 35.0 Intake & Output: Intake and Output for Last 24 Hours 09/07/24 09/08/24 09/09/24 23:59 23:59 23:59 Intake Total 1140 / 1140 1840 / 1840 760 / 760 Output Total 600 / 600 200 / 200 Balance 540 / 540 1640 / 1640 760 / 760 Lab / Micro Data 09/03/24 06:49 09/07/24 07:29 Labs: Laboratory Results - last 24 hr 09/07/24 07:29: RBC Folate Hemolysate 499.0, RBC Folate 1251, Hematocrit 39.9 Physical Exam Const alert, oriented x3 and no apparent distress General Appearance: cooperative Neck supple Resp clear to auscultation bilaterally Cardio regular rate, regular rhythm and no gallops GI normal to inspection, nondistended, normoactive bowel sounds, soft to palpation and non-tender GI Narrative: Denies nausea and abdominal pain today. Has had no bowel movements today yet. Extremity no calf tenderness General Extremity: Negative for edema Skin Skin Narrative: Cranial incision is intact with no dehiscence, no ngozi-incisional erythema and no discharge. Psych cooperative Psych Narrative: Less anxious. Somatic complaints have diminished significantly since we have discontinued Wellbutrin and instituted an SSRI and as needed Xanax. I suspect the Wellbutrin was exacerbating the anxiety.She also has a hx of panic attacksin the past. Making good eye contact with me. Interacting well with staff. Talkative, pleasant, engaged in our conversations. 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 PLAN: Plan 1. Continue therapy 2. DC ropinirole at at bedtime 3. Sertraline was increased to 100 mg daily today 4. We will need an outpatient sleep study at discharge or following discharge from rehab 5. Will need an overnight trending pulse ox the night before planned discharge to qualify her for home oxygen until she can be treated for suspected JANNETH we have been able to discontinue ropinirole while she has been on rehab. Ropinirole likely contributed to chronic nausea and diarrhea. If may be very difficult to arrange home O2 over the holiday weekend if she gets cut. She is doing well and will likely be ready for DC early next week. 6. We have treated her for iron deficiency which contributes to restless leg while she is on rehab. 7. I feel the sertraline is helping with control of anxiety. Will continue Xanax as needed for breakthrough anxiety. Recommend follow-up with behavioral health postdischarge from rehab. 8. Craniotomy incision is intact with no dehiscence, no discharge and no ngozi- incisional erythema. She denies headache. No lightheadedness. Charges/Coding Visit Charges Inpatient E&M: 04492 Subs Hosp L2 09/09/24 1042 Debi Deleon DO Cosigner Signature (if applicable): CC: ~ Signed [facility]07-01-2025 Progress note Author Debi Deleon [facility] Note Date/Time September 07, 2024 3:00p m [facility] Medical Records Department [address] [place] [address] Progress Note 09/07/24 1015 MR#: [id number] Acct: [id number] Name: AMANDA REYNA Rep #:[id number] : 1955 69 From: Debi Deleon DO PCP: Dr. Ottoniel Page, DO Status:ADM IN Location: [place] [address] Subjective Subjective Afebrile VSS - Maintaining appropriate oxygen saturation on RA Oral intake - FOOD good FLUIDS good Discussed with nursing - no problems that need addressed Reviewed the THERAPY notes Medication list reviewed. Had stiffness, aching in her legs last night and to her they felt restless. Shegot up and walked and that helped and she had an Oxycodone. I suspect this restlessness is actually due to increased activity than she has been doing at home, fatigue and stiffness and not due to RLS. It resolved with oxycodone. She is also c/o nausea and diarrhea....mostly in the AM......she does not wake up with this at night. I suspect this is also related to anxiety. She admits to being anxious about getting home....missing her animals, getting out of rehab. She denies lightheadedness, chest pain, cough, shortness of breath, palpitations, calf pain, dysuria. Objective Data Objective Data Vital Signs: Vital Signs Temp Pulse Resp BP Pulse Ox O2 Del Method O2 Flow Rate 96.2 F L 63 16 115/58 L 95 Room Air 2 09/07/24 06:00 09/07/24 06:00 09/07/24 06:00 09/07/24 06:00 09/07/24 06:00 09/07/24 07:20 09/05/24 21:19 FiO2 21 08/30/24 21:37 Oxygen Flow Rate (L/min) 2 Oxygen Delivery Method Room Air Weight: 244 lb 11.41 oz Body Mass Index (BMI) 35.0 Intake & Output: Intake and Output for Last 24 Hours 09/05/24 09/06/24 09/07/24 23:59 23:59 23:59 Intake Total 750 / 750 1680 / 1680 500 / 500 Output Total 200 / 200 700 / 700 300 / 300 Balance 550 / 550 980 / 980 200 / 200 Lab / Micro Data 09/03/24 06:49 09/07/24 07:29 Labs: Laboratory Results - last 24 hr 09/07/24 07:29: Potassium 3.4 Physical Exam Const oriented x3 and no apparent distress General Appearance: cooperative Resp normal respiratory effort, normal air movement and clear to auscultation bilaterally Effort and Inspection: Negative for tachypneic Cardio regular rate, regular rhythm and no gallops Cardio Narrative: No ectopy GI normal to inspection, nondistended, normoactive bowel sounds, soft to palpation and non-tender Extremity no calf tenderness General Extremity: Negative for edema Skin Wound Narrative: The cranial incision is intact with no dehiscence. There is no erythema and no discharge from the incision. Ngozi-incisional swelling has significantly decreased. 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 Continue therapy 2. Supplement potassium 3. Start Xanax PRN while Sertraline is being initiated. I think the restlessleg that starts around 9 at night is actually related more to fatigue, increased activity during the day and anxiety (she is not distracted with PT or other therapies at 9 PM at night). She has been on Xanax in the past.......this is temporary until we can increase the sertraline. 4. Recheck a BMP in a few days. 5. Discuss follow up with behavioral health post DC from rehab. Charges/Coding Visit Charges Inpatient E&M: 26523 Subs Hosp L1 09/07/24 1500 <Electronically signed by Debi Deleon DO> Debi Deleon DO Cosigner Signature (if applicable): CC: ~ Signed [facility] Work Phone: [phone]) 664-849507-01-2025 Progress note [facility] Medical Records Department [address] [place] [address] Progress Note 09/07/24 1015 MR#: [id number] Acct: [id number] Name: AMANDA REYNA Rep #:[id number] : 1955 69 From: Debi Deleon DO PCP: Dr. Ottoniel Page, Status:ADM IN Location: [place] [address] Subjective Subjective Afebrile VSS - Maintaining appropriate oxygen saturation on RA Oral intake - FOOD good FLUIDS good Discussed with nursing - no problems that need addressed Reviewed the THERAPY notes Medication list reviewed. Had stiffness, aching in her legs last night and to her they felt restless. Shegot up and walked and that helped and she had an Oxycodone. I suspect this restlessness is actually due to increased activity than she has been doing at home, fatigue and stiffness and not due to RLS. It resolved with oxycodone. She is also c/o nausea and diarrhea....mostly in the AM......she does not wake up with this at night. I suspect this is also related to anxiety. She admits to being anxious about getting home....missing her animals, getting out of rehab. She denies lightheadedness, chest pain, cough, shortness of breath, palpitations, calf pain, dysuria. Objective Data Objective Data Vital Signs: Vital Signs Temp Pulse Resp BP Pulse Ox O2 Del Method O2 Flow Rate 96.2 F L 63 16 115/58 L 95 Room Air 2 09/07/24 06:00 09/07/24 06:00 09/07/24 06:00 09/07/24 06:00 09/07/24 06:00 09/07/24 07:20 09/05/24 21:19 FiO2 21 08/30/24 21:37 Oxygen Flow Rate (L/min) 2 Oxygen Delivery Method Room Air Weight: 244 lb 11.41 oz Body Mass Index (BMI) 35.0 Intake & Output: Intake and Output for Last 24 Hours 09/05/24 09/06/24 09/07/24 23:59 23:59 23:59 Intake Total 750 / 750 1680 / 1680 500 / 500 Output Total 200 / 200 700 / 700 300 / 300 Balance 550 / 550 980 / 980 200 / 200 Lab / Micro Data 09/03/24 06:49 09/07/24 07:29 Labs: Laboratory Results - last 24 hr 09/07/24 07:29: Potassium 3.4 Physical Exam Const oriented x3 and no apparent distress General Appearance: cooperative Resp normal respiratory effort, normal air movement and clear to auscultation bilaterally Effort and Inspection: Negative for tachypneic Cardio regular rate, regular rhythm and no gallops Cardio Narrative: No ectopy GI normal to inspection, nondistended, normoactive bowel sounds, soft to palpation and non-tender Extremity no calf tenderness General Extremity: Negative for edema Skin Wound Narrative: The cranial incision is intact with no dehiscence. There is no erythema and no discharge from the incision. Ngozi-incisional swelling has significantly decreased. 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 Continue therapy 2. Supplement potassium 3. Start Xanax PRN while Sertraline is being initiated. I think the restlessleg that starts around 9 at night is actually related more to fatigue, increased activity during the day and anxiety (sheis not distracted with PT or other therapies at 9 PM at night). She has been on Xanax in the past.......this is temporary until we can increase the sertraline. 4. Recheck a BMP in a few days. 5. Discuss follow up with behavioral health post DC from rehab. Charges/Coding Visit Charges Inpatient E&M: 72519 Subs Hosp L1 09/07/24 1500 Debi Deleon DO Cosigner Signature (if applicable): CC: ~ Signed [facility]06-30-2025 Progress note Author Debi Deleon [facility] Note Date/Time September 06, 2024 11:3 9am [facility] Medical Records Department [address] [place] [address] Progress Note 09/06/24 0949 MR#: [id number] Acct: [id number] Name: AMANDA REYNA Rep #:[id number] : 1955 69 From: Debi Deleon DO PCP: Dr. Ottoniel Page, DO Status:ADM IN Location: [place] [address] Subjective Subjective Afebrile VSS - Maintaining appropriate oxygen saturation on RA Oral intake - FOOD good FLUIDS I&O not accurate for 09/05 Discussed with nursing - no problems that need addressed Reviewed the THERAPY notes Medication list reviewed. TElls me that only her RLE was restless last night. She got 5 mg of Oxycodone and Tylenol and in about 45 minutes the restlessness had resolved and she slept well for the rest of the night. She is wearing oxygen even when napping now. Does not feel so tired during the day and less napping. Very alert this morning. Denies cephalgia, lightheadedness, chest pain, palpitations, nausea (m,uch improved with the discontinuation of Ropinirole. 2 BM's yesterday.......none at night. Denies abd pain. Not having RLS sx during the day. Objective Data Objective Data Vital Signs: Vital Signs Temp Pulse Resp BP Pulse Ox O2 Del Method O2 Flow Rate 98.6 F 60 16 140/60 H 2 Nasal Cannula 2 09/06/24 06:42 09/06/24 06:42 09/06/24 06:42 09/06/24 06:42 09/06/24 06:42 09/06/24 06:42 09/05/24 21:19 FiO2 21 08/30/24 21:37 Oxygen Flow Rate (L/min) 2 Oxygen Delivery Method Nasal Cannula Weight: 244 lb 11.41 oz Body Mass Index (BMI) 35.0 Intake & Output: Intake and Output for Last 24 Hours 09/04/24 09/05/24 09/06/24 23:59 23:59 23:59 Intake Total 1950 / 1950 750 / 750 200 / 200 Output Total 700 / 700 200 / 200 Balance 1250 / 1250 550 / 550 200 / 200 Lab / Micro Data 09/03/24 06:49 09/03/24 06:41 Physical Exam Const oriented x3 and no apparent distress General Appearance: cooperative Resp normal respiratory effort, normal air movement and clear to auscultation bilaterally Effort and Inspection: Negative for tachypneic Cardio regular rate, regular rhythm and no gallops Cardio Narrative: No ectopy GI normal to inspection, nondistended, normoactive bowel sounds, soft to palpation and non-tender Extremity no calf tenderness General Extremity: Negative for edema Skin Wound Narrative: The cranial incision is intact with no dehiscence. There is no erythema and no discharge from the incision. Ngozi-incisional swelling has significantly decreased. Psych Psych Narrative: appears more rested and is not fidgety today. Tolerating Sertraline for anxiety/depression. 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 Continue therapy 2. No changes to the drug regimen today 3. Check a potassium and folate in the a.m. Charges/Coding Visit Charges Inpatient E&M: 00794 Subs Hosp L1 09/06/24 1135 <Electronically signed by Debi Deleon DO> Debi Deleon DO Cosigner Signature (if applicable): CC: ~ Signed [facility] Work Phone: [phone]) 761-225306-30-2025 Progress note [facility] Medical Records Department [address] [place] [address] Progress Note 09/06/24 0949 MR#: [id number] Acct: [id number] Name: AMANDA REYNA Rep #:[id number] : 1955 69 From: Debi Deleon DO PCP: Dr. Ottoniel Page, DO Status:ADM IN Location: [place] [address] Subjective Subjective Afebrile VSS - Maintaining appropriate oxygen saturation on RA Oral intake - FOOD good FLUIDS I&O not accurate for 09/05 Discussed with nursing - no problems that need addressed Reviewed the THERAPY notes Medication list reviewed. TElls me that only her RLE was restless last night. She got 5 mg of Oxycodone and Tylenol and in about 45 minutes the restlessness had resolved and she slept well for the rest of the night. She is wearing oxygen even when napping now. Does not feel so tired during the day and less napping. Very alert this morning. Denies cephalgia, lightheadedness, chest pain, palpitations, nausea (m,uch improvedwith the discontinuation of Ropinirole. 2 BM's yesterday.......none at night. Denies abd pain. Not having RLS sx during the day. Objective Data Objective Data Vital Signs: Vital Signs Temp Pulse Resp BP Pulse Ox O2 Del Method O2 Flow Rate 98.6 F 60 16 140/60 H 2 Nasal Cannula 2 09/06/24 06:42 09/06/24 06:42 09/06/24 06:42 09/06/24 06:42 09/06/24 06:42 09/06/24 06:42 09/05/24 21:19 FiO2 21 08/30/24 21:37 Oxygen Flow Rate (L/min) 2 Oxygen Delivery Method Nasal Cannula Weight: 244 lb 11.41 oz Body Mass Index (BMI) 35.0 Intake & Output: Intake and Output for Last 24 Hours 09/04/24 09/05/24 09/06/24 23:59 23:59 23:59 Intake Total 1950 / 1950 750 / 750 200 / 200 Output Total 700 / 700 200 / 200 Balance 1250 / 1250 550 / 550 200 / 200 Lab / Micro Data 09/03/24 06:49 09/03/24 06:41 Physical Exam Const oriented x3 and no apparent distress General Appearance: cooperative Resp normal respiratory effort, normal air movement and clear to auscultation bilaterally Effort and Inspection: Negative for tachypneic Cardio regular rate, regular rhythm and no gallops Cardio Narrative: No ectopy GI normal to inspection, nondistended, normoactive bowel sounds, soft to palpation and non-tender Extremity no calf tenderness General Extremity: Negative for edema Skin Wound Narrative: The cranial incision is intact with no dehiscence. There is no erythema and no discharge from the incision. Ngozi-incisional swelling has significantly decreased. Psych Psych Narrative: appears more rested and is not fidgety today. Tolerating Sertraline for anxiety/depression. 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 Continue therapy 2. No changes to the drug regimen today 3. Check a potassium and folate in the a.m. Charges/Coding Visit Charges Inpatient E&M: 87750 Subs Hosp L1 09/06/24 1139 Debi Deleon DO Cosigner Signature (if applicable): CC: ~ Signed [facility]06-28-2025 Progress note Author Debi Deleon [facility] Note Date/Time September 04, 2024 12:0 1pm [facility] Medical Records Department [address] [place] [address] Progress Note 09/03/24 1030 MR#: [id number] Acct: [id number] Name: AMANDA REYNA Rep #:[id number] : 1955 69 From: Debi Deleon DO PCP: Dr. Ottoniel Page, DO Status:ADM IN Location: [place] [address]1 Subjective Subjective Afebrile Vital signs are stable and blood pressure is well-controlled. He had a total of 3 bowel movements yesterday and has had 2 today. No bowel movements at night. Suspect the loose stool is due to IBS and no to Crohn's. May also be related to ropinirole. All lab drawn this morning was personally reviewed. Hemoglobin is within normallimits at 12.5. Sodium is 136 and the potassium is 3.5. BUN is 8 and a creatinine is stable at 0.58. Calcium is 9.8 and urinary magnesium is 1.9. Amanda tells me that she had some RLS sx last night. She denies cephalgia, lightheadedness, chest pain, shortness of breath, abdominal pain, dysuria and calf tenderness. She tends to have loose stool early in the morning and then nobowel movements until the following day. Objective Data Objective Data Vital Signs: Vital Signs Temp Pulse Resp BP Pulse Ox O2 Del Method O2 Flow Rate 97.8 F 64 18 108/54 L 94 Room Air 2 09/03/24 06:00 09/03/24 06:00 09/03/24 06:00 09/03/24 06:00 09/03/24 06:00 09/03/24 06:00 09/01/24 05:00 FiO2 21 08/30/24 21:37 Oxygen Flow Rate (L/min) 2 Oxygen Delivery Method Room Air Weight: 244 lb 11.41 oz Body Mass Index (BMI) 35.0 Intake & Output: Intake and Output for Last 24 Hours 09/01/24 09/02/24 09/03/24 23:59 23:59 23:59 Intake Total 1270 / 1270 1550 / 1950 640 / 640 Output Total 350 / 650 1000 / 1000 Balance 1270 / 1270 1200 / 1300 -360 / -360 Lab / Micro Data 09/03/24 06:49 09/03/24 06:41 Labs: Laboratory Results - last 24 hr 09/03/24 06:41: Sodium 136, Potassium 3.5, Chloride 102, Carbon Dioxide 21.3, Anion Gap 13, BUN 8, Creatinine 0.58 L, Estim Creat Clear Calc 89.58, Est GFR (MDRD) Non-Af 98, BUN/Creatinine Ratio 13.8, Glucose 107 H, Calcium 9.1, Magnesium 1.9 09/03/24 06:49: Hgb 12.5, Hct 40.3 Physical Exam Const oriented x3 and no apparent distress General Appearance: cooperative Resp normal respiratory effort, normal air movement and clear to auscultation bilaterally Effort and Inspection: Negative for tachypneic Cardio regular rate, regular rhythm and no gallops Cardio Narrative: No ectopy GI normal to inspection, nondistended, normoactive bowel sounds, soft to palpation and non-tender Extremity no calf tenderness General Extremity: Negative for edema Psych Psych Narrative: appears more rested and is not fidgety today. 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 Continue with ropinirole 0.25 mg at at bedtime. If she continues to complain RLS symptoms at night (she is not having any RLS during the day) we will DC ropinirole and increase gabapentin at at bedtime. I suspect the ropinirole has been contributing to chronic nausea as this is much better since we have been tapering ropinirole off. 3. We discussed the loose stool and since she is only having 2 bowel movements early in the day and she has no bowel movements at night I suspect this is due to irritable bowel syndrome rather than Crohn's disease. She admits to feelinganxious and she has had panic attacks in the past that were incapacitating. Wellbutrin has been been discontinued because it exacerbates anxiety and a lot of people and also contributes to insomnia. She is agreeable to a trial of sertraline. Will start 50 mg daily today. Charges/Coding Visit Charges Inpatient E&M: 27991 Subs Hosp L1 09/04/24 1201 <Electronically signed by Debi Deleon DO> Debi Deleon DO Cosigner Signature (if applicable): CC: ~ Signed [facility] Work Phone: [phone]) 204-304806-28-2025 Progress note Author Debi Deleon [facility] Note Date/Time September 04, 2024 11:5 6am [facility] Medical Records Department [address] [place] [address] Progress Note 09/02/24 1204 MR#: [id number] Acct: [id number] Name: AMANDA REYNA Rep #:[id number] : 1955 69 From: Debi Deleon DO PCP: Dr. Ottoniel Page, DO Status:ADM IN Location: [place] [address] Subjective Subjective Jennifer was seen on team rounds today. Afebrile VSS -blood pressure is well-controlled and she denies lightheadedness. Maintaining appropriate oxygen saturation on RA Oral intake - FOOD good FLUIDS fair Discussed with nursing - no problems that need addressed Reviewed the THERAPY notes Medication list reviewed. She tolerated iron sucrose 100 mg without any adverseeffects. Will order 2 additional doses and continue ferrous sulfate and VitaminC. Denies restless leg. She is complaining of some nausea today and took Phenergan. 2 bowel movements this morning. She had 1 bowel movement yesterday. Denies restless leg. No lightheadedness. No vomiting. No CP, palpitations, dysuria, calf tenderness. Objective Data Objective Data Vital Signs: Vital Signs Temp Pulse Resp BP Pulse Ox O2 Del Method O2 Flow Rate 97.5 F L 69 16 103/48 L 94 Room Air 2 09/02/24 06:00 09/02/24 06:00 09/02/24 06:00 09/02/24 06:00 09/02/24 06:00 09/02/24 09:19 09/01/24 05:00 FiO2 21 08/30/24 21:37 Oxygen Flow Rate (L/min) 2 Oxygen Delivery Method Room Air Weight: 244 lb 14.937 oz Body Mass Index (BMI) 35.1 Intake & Output: Intake and Output for Last 24 Hours 08/31/24 09/01/24 09/02/24 23:59 23:59 23:59 Intake Total 1254.75 / 1254.75 1270 / 1270 500 / 500 Balance 1254.75 / 1254.75 1270 / 1270 500 / 500 Lab / Micro Data 09/03/24 06:49 09/03/24 06:41 Physical Exam Const oriented x3 and no apparent distress General Appearance: cooperative Resp normal respiratory effort, normal air movement and clear to auscultation bilaterally Effort and Inspection: Negative for tachypneic Cardio regular rate, regular rhythm and no gallops Cardio Narrative: No ectopy GI normal to inspection, nondistended, normoactive bowel sounds, soft to palpation and non-tender Extremity no calf tenderness General Extremity: Negative for edema Assessment & Plan Assessment/Plan (1) Physical debility: (2) 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 Continue therapy 2. Decrease ropinirole to twice daily at 0700 and 2100. the goal is to taper this off. RLS related to untreated JANNETH and iron deficiency. She takes Gabapentin for radular pain and this should also treat RLS. 3. Recheck lab in the AM 4. sleep study at [place] from rehab. Will need to go home with O2 for sleeping. Repeat an overnight trending pulse ox prior to [place]. 5. Iron sucrose 200 mg daily x 2 doses and then continue ferrous sulfate with vitamin C. Charges/Coding Visit Charges Inpatient E&M: 41539 Subs Hosp L2 09/04/24 1156 <Electronically signed by Debi Deleon DO> Debi Deleon DO Cosigner Signature (if applicable): CC: ~ Signed [facility] Work Phone: [phone]) 702-798906-28-2025 Progress note [facility] Medical Records Department [address] [place] [address] Progress Note 09/03/24 1030 MR#: [id number] Acct: [id number] Name: AMANDA REYNA Rep #:[id number] : 1955 69 From: Debi Deleon DO PCP: Dr. Ottoniel Page, DO Status:ADM IN Location: [place]8 Subjective Subjective Afebrile Vital signs are stable and blood pressure is well-controlled. He had a total of 3 bowel movements yesterday and has had 2 today. No bowel movements at night. Suspect the loose stool is due to IBS and no to Crohn's. May also be related to ropinirole. All lab drawn this morning was personally reviewed. Hemoglobin is within normallimits at 12.5. Sodium is 136 and the potassium is 3.5. BUN is 8 and a creatinine is stable at 0.58. Calcium is 9.8 and urinary magnesium is 1.9. Amanda tells me that she had some RLS sx last night. She denies cephalgia, lightheadedness, chest pain, shortness of breath, abdominal pain, dysuria and calf tenderness. She tends to have loose stool early in the morning and then nobowel movements until the following day. Objective Data Objective Data Vital Signs: Vital Signs Temp Pulse Resp BP Pulse Ox O2 Del Method O2 Flow Rate 97.8 F 64 18 108/54 L 94 Room Air 2 09/03/24 06:00 09/03/24 06:00 09/03/24 06:00 09/03/24 06:00 09/03/24 06:00 09/03/24 06:00 09/01/24 05:00 FiO2 21 08/30/24 21:37 Oxygen Flow Rate (L/min) 2 Oxygen Delivery Method Room Air Weight: 244 lb 11.41 oz Body Mass Index (BMI) 35.0 Intake & Output: Intake and Output for Last 24 Hours 09/01/24 09/02/24 09/03/24 23:59 23:59 23:59 Intake Total 1270 / 1270 1550 / 1950 640 / 640 Output Total 350 / 650 1000 / 1000 Balance 1270 / 1270 1200 / 1300 -360 / -360 Lab / Micro Data 09/03/24 06:49 09/03/24 06:41 Labs: Laboratory Results - last 24 hr 09/03/24 06:41: Sodium 136, Potassium 3.5, Chloride 102, Carbon Dioxide 21.3, Anion Gap 13, BUN 8, Creatinine 0.58 L, Estim Creat Clear Calc 89.58, Est GFR (MDRD) Non-Af 98, BUN/Creatinine Ratio 13.8, Glucose 107 H, Calcium 9.1, Magnesium 1.9 09/03/24 06:49: Hgb 12.5, Hct 40.3 Physical Exam Const oriented x3 and no apparent distress General Appearance: cooperative Resp normal respiratory effort, normal air movement and clear to auscultation bilaterally Effort and Inspection: Negative for tachypneic Cardio regular rate, regular rhythm and no gallops Cardio Narrative: No ectopy GI normal to inspection, nondistended, normoactive bowel sounds, soft to palpation and non-tender Extremity no calf tenderness General Extremity: Negative for edema Psych Psych Narrative: appears more rested and is not fidgety today. 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 Continue with ropinirole 0.25 mg at at bedtime. If she continues to complain RLS symptoms at night (she is not having any RLS during the day) we will DC ropinirole and increase gabapentin at at bedtime. I suspect the ropinirole has been contributing to chronic nausea as this is much better sincewe have been tapering ropinirole off. 3. We discussed the loose stool and since she is only having 2 bowel movements early in the day andshe has no bowel movements at night I suspect this is due to irritable bowel syndrome rather than Crohn's disease. She admits to feelinganxious and she has had panic attacks in the past that were inca pacitating. Wellbutrin has been been discontinued because it exacerbates anxiety and a lot of people and also contributes to insomnia. She is agreeable to a trial of sertraline. Will start 50 mg daily today. Charges/Coding Visit Charges Inpatient E&M: 14827 Subs Hosp L1 09/04/24 1201 Debi Deleon DO Cosigner Signature (if applicable): CC: ~ Signed [facility]06-28-2025 Progress note [facility] Medical Records Department [address] [place] [address] Progress Note 09/02/24 1204 MR#: [id number] Acct: [id number] Name: AMANDA REYNA Rep #:[id number] : 1955 69 From: Debi Deleon DO PCP: Dr. Ottoniel Page, DO Status:ADM IN Location: [place] [address] Subjective Subjective Jennifer was seen on team rounds today. Afebrile VSS -blood pressure is well-controlled and she denies lightheadedness. Maintaining appropriate oxygen saturation on RA Oral intake - FOOD good FLUIDS fair Discussed with nursing - no problems that need addressed Reviewed the THERAPY notes Medication list reviewed. She tolerated iron sucrose 100 mg without any adverseeffects. Will order 2 additional doses and continue ferrous sulfate and VitaminC. Denies restless leg. She is complaining of some nausea today and took Phenergan. 2 bowel movements this morning. She had 1 bowel movement yesterday. Denies restless leg. No lightheadedness. No vomiting. No CP, palpitations, dysuria, calf tenderness. Objective Data Objective Data Vital Signs: Vital Signs Temp Pulse Resp BP Pulse Ox O2 Del Method O2 Flow Rate 97.5 F L 69 16 103/48 L 94 Room Air 2 09/02/24 06:00 09/02/24 06:00 09/02/24 06:00 09/02/24 06:00 09/02/24 06:00 09/02/24 09:19 09/01/24 05:00 FiO2 21 08/30/24 21:37 Oxygen Flow Rate (L/min) 2 Oxygen Delivery Method Room Air Weight: 244 lb 14.937 oz Body Mass Index (BMI) 35.1 Intake & Output: Intake and Output for Last 24 Hours 08/31/24 09/01/24 09/02/24 23:59 23:59 23:59 Intake Total 1254.75 / 1254.75 1270 / 1270 500 / 500 Balance 1254.75 / 1254.75 1270 / 1270 500 / 500 Lab / Micro Data 09/03/24 06:49 09/03/24 06:41 Physical Exam Const oriented x3 and no apparent distress General Appearance: cooperative Resp normal respiratory effort, normal air movement and clear to auscultation bilaterally Effort and Inspection: Negative for tachypneic Cardio regular rate, regular rhythm and no gallops Cardio Narrative: No ectopy GI normal to inspection, nondistended, normoactive bowel sounds, soft to palpation and non-tender Extremity no calf tenderness General Extremity: Negative for edema Assessment & Plan Assessment/Plan (1) Physical debility: (2) 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 Continue therapy 2. Decrease ropinirole to twice daily at 0700 and 2100. the goal is to taper this off. RLS related to untreated JANNETH and iron deficiency. She takes Gabapentin for radular pain and this should also treat RLS. 3. Recheck lab in the AM 4. sleep study at [place] from rehab. Will need to go home with O2 for sleeping. Repeat an overnight trending pulse ox prior to [place]. 5. Iron sucrose 200 mg daily x 2 doses and then continue ferrous sulfate with vitamin C. Charges/Coding Visit Charges Inpatient E&M: 66940 Subs Hosp L2 09/04/24 1156 Debi Deleon DO Cosigner Signature (if applicable): CC: ~ Signed [facility]06-24-2025 History and physical note Author Debi Deleon [facility] Note Date/Time August 31, 2024 10:2 7am [facility] Medical Records Department [address] [place] [address] History & Physical Exam 08/30/24 1211 MR#: [id number] Acct: [id number] Name: AMANDA REYNA Rep #:[id number] : 1955 69 From: Debi Deleon DO PCP: Dr. Ottoniel Page, DO Status:ADM IN Location: [place] [address]-1 HPI - General General Date of Admission: 08/29/24 Date of Service: 08/30/24 Chief Complaint: POST STROKE DEBILITY HPI Narrative AMANDA REYNA, is a 69 YO F with a PMH of SVT, coronary artery disease, Crohn's disease (follows with Dr. Kat), irritable bowel syndrome, essential tremor (on Mysoline and was referred to neurology by Dr. Page) , resection of a meningioma in 2009, obesity, or, history of pulmonary embolism (unprovoked), RLS, HLD, GERD, iron deficiency, tobacco dependence in remission, hypertension, anxiety/depression, glaucoma, wide-complex tachycardia and paroxysmal atrial fibrillation who presented to the emergency department at [facility] on 08/17/2024 complaining of numbness on the right side of her body. A stat noncontrast CT brain showed a left parietal intraparenchymal hemorrhage measuring up to 2.6 cm. Teleneurology was consultedand recommended transfer to [facility] for hemorrhagic stroke. They also recommended discussing with neurosurgery. CT was repeated at [facility] and demonstrated a left parietal hemorrhage measuring 2.4 cm x 1.9 cm x 2.5 cm without an underlying vascular malformation or aneurysm on CTA and with no midline shift. She was started on Keppra for seizure prophylaxis and an MRI of the brain was ordered. ASA was placed on hold. MRI of the brain on 08/18/2024 showed grossly stable size of the left parietal intraparenchymal hematoma with mild surrounding vasogenic edema with minimal local mass effect. There was an indeterminate rightfrontal bone lesion with mild associated contrast-enhancement and a small contrast-enhancing nodule in the right internal auditory canal suggestive of a small schwannoma. 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 She was taken to the OR on 08/20/2024 for resection of SM II AVF and evacuation of the hematoma. While ihn the hospital she was seen by PT/OT and ST. She was requiring MOD to total assist with ADL's and acute rehab was recommended at [facility] from [facility]. She was transferred to the acute inpt rehab unit at [facility] on 08/29/24 for 3 hours of therapy daily to restore function/independence at or her level prior to the stroke. I reviewed the last cardiology note from 08/10/2024 and the results of the last echocardiogram which was in 2020 showed a left ventricular ejection fraction of 65% with a PA systolic estimated at 23. There was stage I diastolic dysfunction. She denied any long episodes of palpitations but has an occasionalshort run of palpitations. She was maintained on low-dose metoprolol but if theepisodes become longer we will have a repeat Holter monitor. EEG at [facility] was negative for seizures. All lab drawn this morning was personally reviewed. The white blood cell count is 7.2 hemoglobin is 13.2. MCV is 84. Platelets are within normal limits. Sodium is 136 and the potassium is 3.9. BUN is 8 with a creatinine of 0.58 which is actually below her baseline. Calcium is 9.3 and the phosphorus is 4.0. Magnesium is 1.8. Blood pressure has ranged from 96/69 to 126/57. The heart rate is ranged from 72-77. Afebrile Maintaining appropriate oxygen saturation on room air. She tells me that she was seen in the ED a few days before the stroke for sustained AF with RVR.....she spontaneously converted in the ED prior to plannedcardioversion. [facility] Medical History (Updated 08/30/24 @ 16:[address] Debi Deleon, ) Loud snoring Essential tremor Obesity (BMI 35.0-39.9 without comorbidity) Glaucoma Urge incontinence Stroke/cerebrovascular accident History of steroid therapy History of Holter monitoring Cardiology follow-up encounter Wears glasses Wears dentures Arthritis Pulmonary embolism Restless legs Back pain History of IBS History of Crohn's disease Gastric reflux Former smoker Leg cramps History of stress test Hx of echocardiogram History of trigger finger Wide-complex tachycardia (04/27/20) COVID-19 virus detected (01/24/20) Lumbar stenosis without neurogenic claudication Essential (primary) hypertension Thyroid goiter History of meningioma of the brain Anxiety and depression Hyperlipidemia Paroxysmal atrial fibrillation Home Medications ?Medication ?Instructions ?Recorded ?Last Taken ?Type pantoprazole 40 mg tablet,delayed 40 mg PO DAILY GERD 10/13/18 08/29/24 History release (Protonix) cephalexin 250 mg tablet 250 mg PO QHS Antibiotic 05/26/24 History hydrochlorothiazide 25 mg tablet 25 mg PO DAILY BP 06/28 Unknown History latanoprost 0.005 % eye drops 1 drp EACH EYE QHS eye d rops 04/13/20 Unknown History promethazine 25 mg tablet 25 mg PO Q6H PRN Nausea 08/08 09/27 Unknown History gabapentin 400 mg capsule 400 mg PO TID Nerve pain 08/0105/27/24 07:30 History betamethasone dipropionate 0.05 % 1 applic topical QDA Y PRN skin 08/10/24 08/29/24 History topical ointment irritation bupropion HCl 150 mg 24 hr tablet, 150 mg PO QDAY Mood 08/10/24 08/29/24 History extended release clobetasol 0.05 % topical cream 1 applic topical 0600, 2200 PRN 08/10/24 Unknown History Skin irritation clotrimazole 1 % topical cream 1 applic topical 0600,2 200 PRN 08/10/24 Unknown History Skin irritation ferrous sulfate 325 mg (65 mg 325 mg PO DAILY suppleme nt 08/10/24 Unknown History iron) tablet,delayed release hyoscyamine sulfate 0.125 mg 0.125 mg PO Q6 PRN nausea /vomiting 08/10/24 Unknown History disintegrating tablet primidone 50 mg tablet 100 mg PO BID Essential trem ors 08/10/24 08/29/24 History ropinirole 0.5 mg tablet 0.5 mg PO TID Restless leg 0 08/10/24 08/29/24 History timolol maleate 0.5 % eye drops 1 drp ophthalmic (eye) DAILY eye 08/10/24 08/29/24 History drops sotalol 80 mg tablet 80 mg PO BID BP #180 TABLETS 08/17/24 08/29/24 Rx enoxaparin 40 mg/0.4 mL 40 mg subcut DAILY Blood thi nner 08/29/24 Unknown History subcutaneous syringe (Lovenox) oxycodone 5 mg tablet 5 mg PO Q6H PRN pain 5 Unknown History Allergy/AdvReac Type Severity Reaction Status Date / Time prednisone Allergy Itching Verified 08/17/24 19:11 hydrocodone (From Vicodin) AdvReac Severe GI upset Verified 08/17/24 19:11 propoxyphene (From AdvReac Severe GI upset Verified 08/17/24 19:11 Darvocet-N) cortisone AdvReac Intermediate Unknown Verified 08/17/24 19:11 Family History (Updated 08/30/24 @ 16:[address] Debi Deleon DO) Mother CAD (coronary artery disease) Myocardial infarction VTE (venous thromboembolism) Father Hypertension Brother CAD (coronary artery disease) Surgical History (Updated 08/30/24 @ 16:[address] Debi Deleon DO) History of cataract extraction History of craniectomy History of thumb surgery (~05/2024) History of cystoscopy History of tonsillectomy and adenoidectomy Hx laparoscopic cholecystectomy History of carpal tunnel surgery of right wrist Hx of bilateral breast reduction surgery History of back surgery (04/2020) History of lobectomy of thyroid Hx of craniotomy Social History (Updated 08/30/24 @ 16:[address] Debi Deleon DO) household members: spouse housing: house number of children: 4 Smoking Status: Former smoker how long ago did patient quit smokin-25 years ago. alcohol intake: never substance use type: does not use caffeine: Yes Type: carbonated beverages Number of servings: 2 what type of physical activity do you participate in: walking frequency: 3-4 times per week duration: 30-45 minutes/day seatbelt use: always do you feel safe at home: Yes ROS Review of Systems ROS Unobtainable: Denies due to encephalopathy, due to endotracheal tube, due tomental condition or due to mental status Constitutional Constitutional: Reports fatigue, snoring and weakness; Denies anorexia, change in weight, chills, fever(s) or night sweats Eyes Eyes: Denies blurry vision, change in vision, eye pain or loss of vision ENT HEENT: Denies abnormal hearing, dysphagia, headache(s), hearing loss, nasal congestion or sore throat Cardiovascular Cardiovascular: Reports edema, lightheadedness and racing heartbeat; Denies chest pain, dyspnea on exertion, orthopnea, palpitations, paroxysmal nocturnal dyspnea or syncope Respiratory/Chest Respiratory/Chest: Denies cough, dyspnea, shortness of breath at rest, shortnessof breath with exertion or wheezing Gastrointestinal Gastrointestinal: Reports diarrhea, loose stools and other Details: She is having 3-4 loose BM's a day. Rare BM in the middle of the night. She has crohn's and also IBS. Denies abd pain today and has no blood or mucous in her stool. No abd pain. No N/V. ; Denies abdominal pain, constipation, dyspepsia, hematemesis, hematochezia, melena, nausea, odynophagia, rectal bleeding or vomiting Genitourinary Genitourinary: Denies dysuria, hematuria, nocturia, urinary frequency, urinary hesitancy, urinary incontinence or urinary urgency Musculoskeletal Musculoskeletal: Reports back pain, difficulty walking, numbness, radiating paininto limb and other Details: Sees Dr. Hernandez for epidurals. She is having numbness of the R face, arm and leg but, she denies weakness. ; Denies joint pain, joint swelling or neck pain Neurologic Neurologic: Reports headache(s), numbness, radicular pain and restless legs; Denies abnormal speech, confusion, disequilibrium, dizziness, focal weakness, loss of vision, memory loss, paresthesias, seizures or tremor(s) Psychiatric Psychiatric: Denies anxiety, depression, homicidal ideation or suicidal ideation Endocrine Endocrinology: Denies change in body appearance, polydipsia or polyuria Hematologic/Lymphatic Hematologic/Lymphatic: Denies easy bleeding, easy bruising or lymphadenopathy Allergic/Immunologic Allergic/Immunologic: Denies rhinitis, eczemia or asthma Vital Signs Vital Signs Vital Signs: 08/29/24 13:08 08/29/24 16:43 08/29/24 17:48 Temperature 98 F 97.3 F L Temperature Source Temporal Temporal Pulse Rate 77 74 Respiratory Rate 17 16 Respiratory Effort Normal Non-Labored Respiratory Depth Normal Respiratory Pattern Normal Blood Pressure 117/72 126/57 H Blood Pressure Mean 87 80 Blood Pressure Source Monitor Monitor Blood Pressure Position Semi-Fowlers Semi-Fowlers Blood Pressure Location Right Arm Right Arm Pulse Ox 96 96 Oxygen Delivery Method Room Air Room Air Room Air 08/29/24 22:00 08/30/24 06:46 08/30/24 07:08 Temperature 98.5 F Temperature Source Oral Pulse Rate 72 Respiratory Rate 16 Respiratory Effort Normal Non-Labored Respiratory Depth Normal Respiratory Pattern Normal Blood Pressure 96/69 Blood Pressure Mean 78 Blood Pressure Source Monitor Blood Pressure Position Sitting Blood Pressure Location Left Arm Pulse Ox 97 Oxygen Delivery Method Room Air Room Air Room Air Weight Weight: 244 lb 14.937 oz Body Mass Index (BMI) 35.1 Physical Exam Const alert, oriented x3 and no apparent distress Constitutional Narrative: Making good eye contact, appropriate General Appearance: cooperative, comfortable and well kempt HEENT HEENT Narrative: Very dry MM. Eyes PERRL, EOMs intact bilaterally, conjunctivae normal and no scleral icterus Eyes Narrative: No discharge from the eyes and no mattering of the eyelashes. General Eye: normal appearance of both eyes Neck no lymphadenopathy, supple, no JVD, No nodes and no carotid bruits Neck Narrative: Brisk carotid upstroke with good pulse volume. Chest Chest: symmetrical chest wall rise Resp normal respiratory effort, normal air movement, no use of accessory muscles and clear to auscultation bilaterally Resp Narrative: Not tachypneic and no conversational dyspnea. Effort and Inspection: able to speak in complete sentences Cardio regular rate, regular rhythm, S1 normal heart sound, S2 normal heart sound, no murmurs, no rub and no gallops Cardio Narrative: No ectopy GI normal to inspection, nondistended, normoactive bowel sounds, soft to palpation and non-tender GI Narrative: No guarding with palpation. no CVA tenderness Back/Spine Back/Spine Narrative: She has kyphosis. Has not had a BMD test in many years. The last bone mineral density at [facility] was in 2017 and at that time she had normal bone density. Extremity no clubbing, cyanosis or edema, no calf tenderness and no pedal edema Extremity Narrative: Negative Hardy's and Sandi's signs. SARA hose are in place. Skin Skin Narrative: No rashes, no skin breakdown. Rashes: no rashes Wound Narrative: The craniotomy incision is intact and sutured. There is no dehiscence. No purulent discharge. No ngozi-incisional erythema and no significant swelling around the incision. Neuro oriented x3, CN's II-XII intact bilaterally and no focal motor deficits Neuro Narrative: Tongue protrudes on the midline. Pupils are equal round and reactive to light and accommodation. Smooth pursuit but a few beats of nystagmus. Denies vertigo. Good strength in the arms and legs......no drift. Numbness R side. She had a recent surgery on the R thumb for severe OA.......has a scar. Good plantar flexion and dorsiflexion. No ataxia, No extinction. No visual field cuts. Normal speech. No aphasia or dysarthria. Psych affect normal, denies hallucinations, denies homicidal ideation and denies suicidal ideation Psych Narrative: Appropriate, making good eye contact. Able to stay on topic and focus. No flight of ideas. Does not appear anxious or depressed. Conversant and relating well to staff. Appearance: grossly normal and well kempt Attitude: calm and engaged Results Lab / Micro Data 08/30/24 05:30 08/30/24 05:30 Labs: Laboratory Results - last 24 hr 08/30/24 05:30: WBC 7.4, RBC 4.92, Hgb 13.2, Hct 41.5, MCV 84.3, MCH 26.8 L, MCHC 31.8 L, RDW Std Deviation 42.5, RDW Coeff of Laura 13.8, Plt Count 195, MPV 11.8, Immature Gran % (Auto) 0.500, Neut % (Auto) 62.6, Lymph % (Auto) 23.1, [place] % (Auto) 10.3 H, Eos % (Auto) 2.6, Baso % (Auto) 0.9, Absolute Neuts (auto) 4.6, Absolute Lymphs (auto) 1.70, Nucleated RBC % 0, Sodium 136, Potassium 3.9, Chloride 99, Carbon Dioxide 25.8, Anion Gap 11, BUN 8, Creatinine 0.58 L, Estim Creat Clear Calc 89.62, Est GFR (MDRD) Non-Af 98, BUN/Creatinine Ratio 13.8, Glucose 116 H, Calcium 9.3, Phosphorus 4.0, Magnesium 1.8 Assessment & Plan Assessment/Plan (1) Physical debility: (2) 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: (3) History of craniectomy: (4) Essential tremor: (5) Paroxysmal atrial fibrillation: (6) Essential (primary) hypertension: (7) Hyperlipidemia: QUALIFIERS: Hyperlipidemia type: pure hypercholesterolemia Qualified Code(s): E78.00 - Pure hypercholesterolemia, unspecified; E78.0 - Pure hypercholesterolemia (8) Glaucoma: QUALIFIERS: Glaucoma type: unspecified (9) Obesity (BMI 35.0-39.9 without comorbidity): (10) Anxiety and depression: (11) Restless legs: (12) Loud snoring: (13) Kyphosis: QUALIFIERS: Kyphosis type: postural Spinal region: cervicothoracic Qualified Code(s): M40.03 - Postural kyphosis, cervicothoracic region PLAN: Plan PLAN PT for gait stability OT for ADL's ST for evaluation Analgesics as needed Bowel protocol Fall precautions Assess for Anxiety/Depression GI prophylaxis -pantoprazole DVT prophylaxis with Lovenox Follow up with neurosurgery, Dr. Dodge, Dr. Hernandez, Dr. Rock for neurology and Dr. Ottoniel Page following DC from Rehab AM lab including CMP, CBC, Mag and Phos - all reviewed. Check iron studies Overnight trending pulse ox for suspected JANNETH Increase the ropinirole dose to 0.25 mg every morning, 0.5 mg in the afternoon and 0.5 mg at bedtime.......this is what she has been taking at home. Takes Neurontin for back pain and radicular pain. Would like to wean Keppra down and possibly off prior to DC Will need to reschedule her appt with neurosurgery on 09/02 because she will still be on acute rehab. Imodium PRN for diarrhea........she has no abdominal pain, no blood or mucus in her stool, no bowel movements at night and no nausea or vomiting so I suspect the loose stool was secondary to her irritable bowel syndrome rather than Crohn's disease. If it continues and does not respond to Imodium we will discuss with Dr. Kat. She had a prolonged episode of atrial fibrillation just 2 days prior to her stroke. I reviewed the last cardiology note from [facility] and she will likely need a Holter monitor or event monitor to see if she is having significant episodes of AF. Will discuss with cardiology. Continue Sotalol fornow. She is on Wellbutrin for depression but, she also has anxiety and Wellbutrin does not treat anxiety. Consider an SSRI rather than Wellbutrin? This would also treat anxiety and possibly IBS. Weight loss recommended - would like to see th BMI at least less than 30 Encouraged her to increase her water intake......MM are very dry and intake is poor. Lightheadedness with standing is likely related to IV volume depletion. Will check orthostatics in the AM........DC HCTZ. BP is on the low side today........likely due to dehydration. 1. Do you snore loudly? Yes 2. Do you often feel tired, fatigued or sleepy during the day? Yes 3. Has anyone ever observed you stop breathing during sleep? No 4. Do you have (or are you being treated for) HTN? Yes BMI 35 AGE 69 Neck circumference [ ] Gender female Total [ ] She falls asleep watching TV and reading a book. She also falls asleep after meals. She frequently feels fatigued during the day. Charges/Coding Visit Charges Inpatient E&M: 40482 Init Hosp L3 08/30/24 1745 <Electronically signed by Debi Deleon DO> Cosigner Signature (if applicable): CC: Dr. Ottoniel Page DO; Dr. Debi Deleon DO~ Signed ADDENDUM by Dr. Debi Deleon DO on 08/31/24 at 1027 Addendum The neck circumference is 44cm which brings the STOP BANG score to a total of 6 which is high risk for JANNETH. D/W sleep lab.....ordered placed for a sleep study. Will try and arrange for the night of DC from rehab. 08/31/24 1027<Electronically signed by Debi Deleon DO> Cosigner Signature (if applicable): cc: Dr. Ottoniel Page DO; Dr. Debi Deleon DO ~* Signed [facility] Work Phone: [phone] 394-753906-24-2025 Progress note Author Debi Deleon [facility] Note Date/Time August 31, 2024 10:2 3am [facility] Medical Records Department [address] [place] [address] Progress Note 08/31/24 0847 MR#: [id number] Acct: [id number] Name: AMANDA REYNA Rep #:[id number] : 1955 69 From: Debi Deleon DO PCP: Dr. Ottoniel Page DO Status:ADM IN Location: [place] [address] Subjective Subjective Afebrile Blood pressure over the past 24 hours has ranged from 96/69 yesterday at 7 AM to169/55. Blood pressure this a.m. is 131/62. Heart rate is within normal limits. Maintaining appropriate oxygen saturation on room air while awake. Oral fluid intake yesterday was 1780. Ate 75 to 100% of all the meals she has had on rehab. She complained of nausea last night and received Phenergan. Also tells me that she slept from about 10:30 to 2:30 and then had to use the RR......then could not go back to sleep. Ate 75-100% of breakfast today and denies nausea. she also took and Imodium to help with loose stool........she has had 2 stools todayalready. there is only 1 stool recorded for yesterday. No CP, SOB, hemoptysis,no vomiting, no dysuria, no calf tenderness. she is requesting Flonase.......she takes it at home. Nausea and TADEO are regular complaints. Overnight trending pulse ox shows she is hypoxic 75% of the time she was monitored. She had 40 desaturation events. Objective Data Objective Data Vital Signs: Vital Signs Temp Pulse Resp BP Pulse Ox O2 Del Method O2 Flow Rate 97.0 F L 77 17 131/62 H 96 Room Air 0 08/31/24 06:00 08/31/24 06:00 08/31/24 06:00 08/31/24 06:00 08/31/24 06:00 08/31/24 06:00 08/30/24 21:37 FiO2 21 08/30/24 21:37 Oxygen Flow Rate (L/min) 0 Oxygen Delivery Method Room Air Weight: 244 lb 14.937 oz Body Mass Index (BMI) 35.1 Intake & Output: Intake and Output for Last 24 Hours 08/29/24 08/30/24 08/31/24 23:59 23:59 23:59 Intake Total 1780 / 1780 300 / 300 Output Total 200 / 200 400 / 400 Balance -200 / -200 1380 / 1380 300 / 300 Lab / Micro Data 08/30/24 05:30 08/30/24 05:30 Labs: Laboratory Results - last 24 hr 08/30/24 05:30: Iron 34 L, TIBC 281, Iron Saturation 12.0 L, Unsaturated IBC 247, Ferritin 213, Total Bilirubin 0.59, Direct Bilirubin 0.21, AST 21, ALT 25, Alkaline Phosphatase 69, Total Protein 6.4, Albumin 3.5, Globulin 2.9 Physical Exam Const oriented x3 and no apparent distress General Appearance: cooperative HEENT Mouth: dry mucous membranes Resp normal respiratory effort, normal air movement and clear to auscultation bilaterally Effort and Inspection: Negative for tachypneic Cardio regular rate, regular rhythm and no gallops GI normal to inspection, nondistended, normoactive bowel sounds, soft to palpation and non-tender Extremity no calf tenderness General Extremity: Negative for edema Skin Skin Narrative: Eczematous rash on the palm of her hand. Has a steroid cream that she uses PRN. 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 Continue therapy 2. Apply supplemental oxygen anytime she is sleeping. Sleep study at [facility] from rehab. 3. Discontinue Wellbutrin -I suspect this contributes to her chronic headaches,insomnia and anxiety. She tells me that she does not feel this medication helpsher. Depression and anxiety may not improve with medication because the sx are related to sleep deprivation. IF she needs a medication for anxiety/depression after she is treated for AJNNETH would favor an SSRI to help with both anxiety and depression. 4. Wean Ropinirole off.....I suspect she is experiencing Augmentation and it does not really help because the RLS is due to a combination of iron deficiency and JANNETH. She is chronically on a PPI and likely not absorbing oral iron. will give Iron sucrose. 5. It will be interesting to see if the JANNETH is treated whether or not she stillhas PAF. She is using 2 antifungal creams and a steroid cream.........why 2 different antifungals? She tells me that one of the creams is for vaginal dryness? Charges/Coding Visit Charges Inpatient E&M: 65619 Subs Hosp L2 08/31/24 1023 <Electronically signed by Debi Deleon DO> Debi Deleon DO Cosigner Signature (if applicable): CC: ~ Signed [facility] Work Phone: [phone] History and physical note [facility] Medical Records Department [address] [place] [address] History & Physical Exam 08/30/24 1211 MR#: [id number] Acct: [id number] Name: AMANDA REYNA Rep #:[id number] : 1955 69 From: Debi Deleon DO PCP: Dr. Ottoniel Page, DO Status:ADM IN Location: [address] HPI - General General Date of Admission: 08/29/24 Date of Service: 08/30/24 Chief Complaint: POST STROKE DEBILITY HPI Narrative AMANDA REYNA, is a 69 YO F with a PMH of SVT, coronary artery disease, Crohn's disease (follows with Dr. Kat), irritable bowel syndrome, essential tremor (on Mysoline and was referred to neurologyby Dr. Page) , resection of a meningioma in 2009, obesity, or, history of pulmonary embolism (unprovoked), RLS, HLD, GERD, iron deficiency, tobacco dependence in remission, hypertension, anxiety/depression, glaucoma, wide-complex tachycardia and paroxysmal atrial fibrillation who presented to the emergency department at [facility] on 08/17/2024 complaining of numbness on the right side of her body. A stat noncontrast CT brain showed a left parietal intraparenchymal hemorrhage measuring up to 2.6 cm. Teleneurology was consultedand recommended transfer to [facility] for hemorrhagic stroke. They also recommended discussing with neurosurgery. CT was repeated at [facility] and demonstrated a left parietal hemorrhage measuring 2.4 cm x 1.9 cm x 2.5 cm without an underlying vascular malformation or aneurysm on CTA and with no midline shift. She was started on Keppra for seizure prophylaxis and an MRI of the brain was ordered. ASA was placed on hold. MRI of the brain on 08/18/2024 showed grossly stable size of the left parietal intraparenchymal hematoma with mild surrounding vasogenic edema with minimal local mass effect. There was an indeterminate rightfrontal bone lesion with mild associated contrast-enhancement and a small contrast-enhancing nodule in the right internal auditory canal suggestive of a small schwannoma. 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 She was taken to the OR on 08/20/2024 for resection of SM II AVF and evacuation of the hematoma. While ihn the hospital she was seen by PT/OT and ST. She was requiring MOD to total assist with ADL's and acute rehab was recommended at [facility] from [facility]. She was transferred to the acute inpt rehab unit at [facility] on 08/29/24 for 3 hours of therapy daily to restore function/independence at or her level prior to the stroke. I reviewed the last cardiology note from 08/10/2024 and the results of the last echocardiogram which was in 2020 showed a left ventricular ejection fraction of 65% with a PA systolic estimated at 23. There was stage I diastolic dysfunction. She denied any long episodes of palpitations but has an occasionalshort run of palpitations. She was maintained on low-dose metoprolol but if theepisodes becomelonger we will have a repeat Holter monitor. EEG at [facility] was negative for seizures. All lab drawn this morning was personally reviewed. The white blood cell count is 7.2 hemoglobin is13.2. MCV is 84. Platelets are within normal limits. Sodium is 136 and the potassium is 3.9. BUN is8 with a creatinine of 0.58 which is actually below her baseline. Calcium is 9.3 and the phosphorusis 4.0. Magnesium is 1.8. Blood pressure has ranged from 96/69 to 126/57. The heart rate is ranged from 72-77. Afebrile Maintaining appropriate oxygen saturation on room air. She tells me that she was seen in the ED a few days before the stroke for sustained AF with RVR.....she spontaneously converted in the ED prior to plannedcardioversion. [facility] Medical History (Updated 08/30/24 @ 16:[address] Debi Deleon DO) Loud snoring Essential tremor Obesity (BMI 35.0-39.9 without comorbidity) Glaucoma Urge incontinence Stroke/cerebrovascular accident History of steroid therapy History of Holter monitoring Cardiology follow-up encounter Wears glasses Wears dentures Arthritis Pulmonary embolism Restless legs Back pain History of IBS History of Crohn's disease Gastric reflux Former smoker Leg cramps History of stress test Hx of echocardiogram History of trigger finger Wide-complex tachycardia (04/27/20) COVID-19 virus detected (01/24/20) Lumbar stenosis without neurogenic claudication Essential (primary) hypertension Thyroid goiter History of meningioma of the brain Anxiety and depression Hyperlipidemia Paroxysmal atrial fibrillation Home Medications ?Medication ?Instructions ?Recorded ?Last Taken ?Type pantoprazole 40 mg tablet,delayed 40 mg PO DAILY GERD 10/13/18 08/29/24 History release (Protonix) cephalexin 250 mg tablet 250 mg PO QHS Antibiotic 05/26/24 History hydrochlorothiazide 25 mg tablet 25 mg PO DAILY BP 06/28 Unknown History latanoprost 0.005 % eye drops 1 drp EACH EYE QHS eye d rops 04/13/20 Unknown History promethazine 25 mg tablet 25 mg PO Q6H PRN Nausea 08/08 09/27 Unknown History gabapentin 400 mg capsule 400 mg PO TID Nerve pain 08/0105/27/24 07:30 History betamethasone dipropionate 0.05 % 1 applic topical QDA Y PRN skin 08/10/24 08/29/24 History topical ointment irritation bupropion HCl 150 mg 24 hr tablet, 150 mg PO QDAY Mood 08/10/24 08/29/24 History extended release clobetasol 0.05 % topical cream 1 applic topical 0600, 2200 PRN 08/10/24 Unknown History Skin irritation clotrimazole 1 % topical cream 1 applic topical 0600,2 200 PRN 08/10/24 Unknown History Skin irritation ferrous sulfate 325 mg (65 mg 325 mg PO DAILY suppleme nt 08/10/24 Unknown History iron) tablet,delayed release hyoscyamine sulfate 0.125 mg 0.125 mg PO Q6 PRN nausea /vomiting 08/10/24 Unknown History disintegrating tablet primidone 50 mg tablet 100 mg PO BID Essential trem ors 08/10/24 08/29/24 History ropinirole 0.5 mg tablet 0.5 mg PO TID Restless leg 0 08/10/24 08/29/24 History timolol maleate 0.5 % eye drops 1 drp ophthalmic (eye) DAILY eye 08/10/24 08/29/24 History drops sotalol 80 mg tablet 80 mg PO BID BP #180 TABLETS 08/17/24 08/29/24 Rx enoxaparin 40 mg/0.4 mL 40 mg subcut DAILY Blood thi nner 08/29/24 Unknown History subcutaneous syringe (Lovenox) oxycodone 5 mg tablet 5 mg PO Q6H PRN pain 5 Unknown History Allergy/AdvReac Type Severity Reaction Status Date / Time prednisone Allergy Itching Verified 08/17/24 19:11 hydrocodone (From Vicodin) AdvReac Severe GI upset Verified 08/17/24 19:11 propoxyphene (From AdvReac Severe GI upset Verified 08/17/24 19:11 Darvocet-N) cortisone AdvReac Intermediate Unknown Verified 08/17/24 19:11 Family History (Updated 08/30/24 @ 16:[address] Debi Deleon DO) Mother CAD (coronary artery disease) Myocardial infarction VTE (venous thromboembolism) Father Hypertension Brother CAD (coronary artery disease) Surgical History (Updated 08/30/24 @ 16:[address] eDbi Deleon DO) History of cataract extraction History of craniectomy History of thumb surgery (~05/2024) History of cystoscopy History of tonsillectomy and adenoidectomy Hx laparoscopic cholecystectomy History of carpal tunnel surgery of right wrist Hx of bilateral breast reduction surgery History of back surgery (04/2020) History of lobectomy of thyroid Hx of craniotomy Social History (Updated 08/30/24 @ 16:[address] Debi Deleon DO) household members: spouse housing: house number of children: 4 Smoking Status: Former smoker how long ago did patient quit smokin-25 years ago. alcohol intake: never substance use type: does not use caffeine: Yes Type: carbonated beverages Number of servings: 2 what type of physical activity do you participate in: walking frequency: 3-4 times per week duration: 30-45 minutes/day seatbelt use: always do you feel safe at home: Yes ROS Review of Systems ROS Unobtainable: Denies due to encephalopathy, due to endotracheal tube, due tomental condition ordue to mental status Constitutional Constitutional: Reports fatigue, snoring and weakness; Denies anorexia, change in weight, chills, fever(s) or night sweats Eyes Eyes: Denies blurry vision, change in vision, eye pain or loss of vision ENT HEENT: Denies abnormal hearing, dysphagia, headache(s), hearing loss, nasal congestion or sore throat Cardiovascular Cardiovascular: Reports edema, lightheadedness and racing heartbeat; Denies chest pain, dyspnea on exertion, orthopnea, palpitations, paroxysmal nocturnal dyspnea or syncope Respiratory/Chest Respiratory/Chest: Denies cough, dyspnea, shortness of breath at rest, shortnessof breath with exertion or wheezing Gastrointestinal Gastrointestinal: Reports diarrhea, loose stools and other Details: She is having 3-4 loose BM's a day. Rare BM in the middle of the night. She has crohn's and also IBS. Denies abd pain today and hasno blood or mucous in her stool. No abd pain. No N/V. ; Denies abdominal pain, constipation, dyspepsia, hematemesis, hematochezia, melena, nausea, odynophagia, rectal bleeding or vomiting Genitourinary Genitourinary: Denies dysuria, hematuria, nocturia, urinary frequency, urinary hesitancy, urinary incontinence or urinary urgency Musculoskeletal Musculoskeletal: Reports back pain, difficulty walking, numbness, radiating paininto limb and otherDetails: Sees Dr. Hernandez for epidurals. She is having numbness of the R face, arm and leg but, shedenies weakness. ; Denies joint pain, joint swelling or neck pain Neurologic Neurologic: Reports headache(s), numbness, radicular pain and restless legs; Denies abnormal speech, confusion, disequilibrium, dizziness, focal weakness, loss of vision, memory loss, paresthesias, seizures or tremor(s) Psychiatric Psychiatric: Denies anxiety, depression, homicidal ideation or suicidal ideation Endocrine Endocrinology: Denies change in body appearance, polydipsia or polyuria Hematologic/Lymphatic Hematologic/Lymphatic: Denies easy bleeding, easy bruising or lymphadenopathy Allergic/Immunologic Allergic/Immunologic: Denies rhinitis, eczemia or asthma Vital Signs Vital Signs Vital Signs: 08/29/24 13:08 08/29/24 16:43 08/29/24 17:48 Temperature 98 F 97.3 F L Temperature Source Temporal Temporal Pulse Rate 77 74 Respiratory Rate 17 16 Respiratory Effort Normal Non-Labored Respiratory Depth Normal Respiratory Pattern Normal Blood Pressure 117/72 126/57 H Blood Pressure Mean 87 80 Blood Pressure Source Monitor Monitor Blood Pressure Position Semi-Fowlers Semi-Fowlers Blood Pressure Location Right Arm Right Arm Pulse Ox 96 96 Oxygen Delivery Method Room Air Room Air Room Air 08/29/24 22:00 08/30/24 06:46 08/30/24 07:08 Temperature 98.5 F Temperature Source Oral Pulse Rate 72 Respiratory Rate 16 Respiratory Effort Normal Non-Labored Respiratory Depth Normal Respiratory Pattern Normal Blood Pressure 96/69 Blood Pressure Mean 78 Blood Pressure Source Monitor Blood Pressure Position Sitting Blood Pressure Location Left Arm Pulse Ox 97 Oxygen Delivery Method Room Air Room Air Room Air Weight Weight: 244 lb 14.937 oz Body Mass Index (BMI) 35.1 Physical Exam Const alert, oriented x3 and no apparent distress Constitutional Narrative: Making good eye contact, appropriate General Appearance: cooperative, comfortable and well kempt HEENT HEENT Narrative: Very dry MM. Eyes PERRL, EOMs intact bilaterally, conjunctivae normal and no scleral icterus Eyes Narrative: No discharge from the eyes and no mattering of the eyelashes. General Eye: normal appearance of both eyes Neck no lymphadenopathy, supple, no JVD, No nodes and no carotid bruits Neck Narrative: Brisk carotid upstroke with good pulse volume. Chest Chest: symmetrical chest wall rise Resp normal respiratory effort, normal air movement, no use of accessory muscles and clear to auscultation bilaterally Resp Narrative: Not tachypneic and no conversational dyspnea. Effort and Inspection: able to speak in complete sentences Cardio regular rate, regular rhythm, S1 normal heart sound, S2 normal heart sound, no murmurs, no rub and no gallops Cardio Narrative: No ectopy GI normal to inspection, nondistended, normoactive bowel sounds, soft to palpation and non-tender GI Narrative: No guarding with palpation. no CVA tenderness Back/Spine Back/Spine Narrative: She has kyphosis. Has not had a BMD test in many years. The last bone mineral density at [facility] was in 2017 and at that time she had normal bone density. Extremity no clubbing, cyanosis or edema, no calf tenderness and no pedal edema Extremity Narrative: Negative Hardy's and Sandi's signs. SARA hose are in place. Skin Skin Narrative: No rashes, no skin breakdown. Rashes: no rashes Wound Narrative: The craniotomy incision is intact and sutured. There is no dehiscence. No purulent discharge. No ngozi-incisional erythema and no significant swelling around the incision. Neuro oriented x3, CN's II-XII intact bilaterally and no focal motor deficits Neuro Narrative: Tongue protrudes on the midline. Pupils are equal round and reactive to light and accommodation. Smooth pursuit but a few beats of nystagmus. Denies vertigo. Good strength in the arms and legs......no drift. Numbness R side. She had a recent surgery on the R thumb for severe OA.......has a scar. Good plantar flexion and dorsiflexion. No ataxia, No extinction. No visual field cuts. Normal speech. No aphasia or dysarthria. Psych affect normal, denies hallucinations, denies homicidal ideation and denies suicidal ideation Psych Narrative: Appropriate, making good eye contact. Able to stay on topic and focus. No flight of ideas. Does notappear anxious or depressed. Conversant and relating well to staff. Appearance: grossly normal and well kempt Attitude: calm and engaged Results Lab / Micro Data 08/30/24 05:30 08/30/24 05:30 Labs: Laboratory Results - last 24 hr 08/30/24 05:30: WBC 7.4, RBC 4.92, Hgb 13.2, Hct 41.5, MCV 84.3, MCH 26.8 L, MCHC 31.8 L, RDW Std Deviation 42.5, RDW Coeff of Laura 13.8, Plt Count 195, MPV 11.8, Immature Gran % (Auto) 0.500, Neut % (Auto) 62.6, Lymph % (Auto) 23.1, [place] % (Auto) 10.3 H, Eos % (Auto) 2.6, Baso % (Auto) 0.9, Absolute Neuts (auto) 4.6, Absolute Lymphs (auto) 1.70, Nucleated RBC % 0, Sodium 136, Potassium 3.9, Chloride 99, Carbon Dioxide 25.8, Anion Gap 11, BUN 8, Creatinine 0.58 L, Estim Creat Clear Calc 89.62, Est GFR (MDRD) Non-Af 98, BUN/Creatinine Ratio 13.8, Glucose 116 H, Calcium 9.3, Phosphorus 4.0, Magnesium 1.8 Assessment & Plan Assessment/Plan (1) Physical debility: (2) 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: (3) History of craniectomy: (4) Essential tremor: (5) Paroxysmal atrial fibrillation: (6) Essential (primary) hypertension: (7) Hyperlipidemia: QUALIFIERS: Hyperlipidemia type: pure hypercholesterolemia Qualified Code(s): E78.00 - Pure hypercholesterolemia, unspecified; E78.0 - Pure hypercholesterolemia (8) Glaucoma: QUALIFIERS: Glaucoma type: unspecified (9) Obesity (BMI 35.0-39.9 without comorbidity): (10) Anxiety and depression: (11) Restless legs: (12) Loud snoring: (13) Kyphosis: QUALIFIERS: Kyphosis type: postural Spinal region: cervicothoracic Qualified Code(s): M40.03 - Postural kyphosis, cervicothoracic region PLAN: Plan PLAN PT for gait stability OT for ADL's ST for evaluation Analgesics as needed Bowel protocol Fall precautions Assess for Anxiety/Depression GI prophylaxis -pantoprazole DVT prophylaxis with Lovenox Follow up with neurosurgery, Dr. Dodge, Dr. Hernandez, Dr. Rock for neurology and Dr. Ottoniel Bauman [facility] from [facility] AM lab including CMP, CBC, Mag and Phos - all reviewed. Check iron studies Overnight trending pulse ox for suspected JANNETH Increase the ropinirole dose to 0.25 mg every morning, 0.5 mg in the afternoon and 0.5 mg at bedtime.......this is what she has been taking at home. Takes Neurontin for back pain and radicular pain. Would like to wean Keppra down and possibly off prior to DC Will need to reschedule her appt with neurosurgery on 09/02 because she will still be on acute rehab. Imodium PRN for diarrhea........she has no abdominal pain, no blood or mucus in her stool, no bowelmovements at night and no nausea or vomiting so I suspect the loose stool was secondary to her irritable bowel syndrome rather than Crohn's disease. If it continues and does not respond to Imodium wewill discuss with Dr. Kat. She had a prolonged episode of atrial fibrillation just 2 days prior to her stroke. I reviewed the last cardiology note from [facility] and she will likely need a Holter monitor or event monitor to see if she is having significant episodes of AF. Will discuss with cardiology. Continue Sotalol fornow. She is on Wellbutrin for depression but, she also has anxiety and Wellbutrin does not treat anxiety. Consider an SSRI rather than Wellbutrin? This would also treat anxiety and possibly IBS. Weight loss recommended - would like to see th BMI at least less than 30 Encouraged her to increase her water intake......MM are very dry and intake is poor. Lightheadedness with standing is likely related to IV volume depletion. Will check orthostatics in the AM........DC HCTZ. BP is on the low side today........likely due to dehydration. 1. Do you snore loudly? Yes 2. Do you often feel tired, fatigued or sleepy during the day? Yes 3. Has anyone ever observed you stop breathing during sleep? No 4. Do you have (or are you being treated for) HTN? Yes BMI 35 AGE 69 Neck circumference [ ] Gender female Total [ ] She falls asleep watching TV and reading a book. She also falls asleep after meals. She frequently feels fatigued during the day. Charges/Coding Visit Charges Inpatient E&M: 60021 Init Hosp L3 08/30/24 1745 Cosigner Signature (if applicable): CC: Dr. Ottoniel Page DO; Dr. Debi Deleon DO~ Signed ADDENDUM by Dr. Debi Deleon DO on 08/31/24 at 1027 Addendum The neck circumference is 44cm which brings the STOP BANG score to a total of 6 which is high risk for JANNETH. D/W sleep lab.....ordered placed for a sleep study. Will try and arrange for the night of DC from rehab. 08/31/24 1027 Cosigner Signature (if applicable): cc: Dr. Ottoniel Page DO; Dr. Debi Deleon DO ~* Signed [facility]06-24-2025 Progress note [facility] Medical Records Department [address] [place] [address] Progress Note 08/31/24 0814 MR#: [id number] Acct: [id number] Name: AMANDA ERYNA Rep #:[id number] : 1955 69 From: Debi Deleon DO PCP: Dr. Ottoniel Page, DO Status:ADM IN Location: [place] [address] Subjective Subjective Afebrile Blood pressure over the past 24 hours has ranged from 96/69 yesterday at 7 AM to169/55. Blood pressure this a.m. is 131/62. Heart rate is within normal limits. Maintaining appropriate oxygen saturation on room air while awake. Oral fluid intake yesterday was 1780. Ate 75 to 100% of all the meals she has had on rehab. She complained of nausea last night and received Phenergan. Also tells me that she slept from about10:30 to 2:30 and then had to use the RR......then could not go back to sleep. Ate 75-100% of breakfast today and denies nausea. she also took and Imodium to help with loose stool........she has had 2 stools todayalready. there is only 1 stool recorded for yesterday. No CP, SOB, hemoptysis,no vomiting, no dysuria, no calf tenderness. she is requesting Flonase.......she takes it at home. Nausea and TADEO are regular complaints. Overnight trending pulse ox shows she is hypoxic 75% of the time she was monitored. She had 40 desaturation events. Objective Data Objective Data Vital Signs: Vital Signs Temp Pulse Resp BP Pulse Ox O2 Del Method O2 Flow Rate 97.0 F L 77 17 131/62 H 96 Room Air 0 08/31/24 06:00 08/31/24 06:00 08/31/24 06:00 08/31/24 06:00 08/31/24 06:00 08/31/24 06:00 08/30/24 21:37 FiO2 21 08/30/24 21:37 Oxygen Flow Rate (L/min) 0 Oxygen Delivery Method Room Air Weight: 244 lb 14.937 oz Body Mass Index (BMI) 35.1 Intake & Output: Intake and Output for Last 24 Hours 08/29/24 08/30/24 08/31/24 23:59 23:59 23:59 Intake Total 1780 / 1780 300 / 300 Output Total 200 / 200 400 / 400 Balance -200 / -200 1380 / 1380 300 / 300 Lab / Micro Data 08/30/24 05:30 08/30/24 05:30 Labs: Laboratory Results - last 24 hr 08/30/24 05:30: Iron 34 L, TIBC 281, Iron Saturation 12.0 L, Unsaturated IBC 247, Ferritin 213, Total Bilirubin 0.59, Direct Bilirubin 0.21, AST 21, ALT 25, Alkaline Phosphatase 69, Total Protein 6.4, Albumin 3.5, Globulin 2.9 Physical Exam Const oriented x3 and no apparent distress General Appearance: cooperative HEENT Mouth: dry mucous membranes Resp normal respiratory effort, normal air movement and clear to auscultation bilaterally Effort and Inspection: Negative for tachypneic Cardio regular rate, regular rhythm and no gallops GI normal to inspection, nondistended, normoactive bowel sounds, soft to palpation and non-tender Extremity no calf tenderness General Extremity: Negative for edema Skin Skin Narrative: Eczematous rash on the palm of her hand. Has a steroid cream that she uses PRN. 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 Continue therapy 2. Apply supplemental oxygen anytime she is sleeping. Sleep study at [place] from rehab. 3. Discontinue Wellbutrin -I suspect this contributes to her chronic headaches,insomnia and anxiety. She tells me that she does not feel this medication helpsher. Depression and anxiety may not improve with medication because the sx are related to sleep deprivation. IF she needs a medication for anxiety/depression after she is treated for JANNETH would favor an SSRI to help with both anxiety and depression. 4. Wean Ropinirole off.....I suspect she is experiencing Augmentation and it does not really help because the RLS is due to a combination of iron deficiency and JANNETH. She is chronically on a PPI and likely not absorbing oral iron. will give Iron sucrose. 5. It will be interesting to see if the JANNETH is treated whether or not she stillhas PAF. She is using 2 antifungal creams and a steroid cream.........why 2 different antifungals? She tellsme that one of the creams is for vaginal dryness? Charges/Coding Visit Charges Inpatient E&M: 58822 Subs Hosp L2 08/31/24 1023 Debi Deleon DO Cosigner Signature (if applicable): CC: ~ Signed [facility]06-23-2025 History and physical note Author Debi Deleon [facility] Note Date/Time August 30, 2024 5:08 pm [facility] Medical Records Department [address] [place] [address] Post Admission Physician Thierry 08/30/24 1702 MR#: [id number] Acct: [id number] Name: AMANDA REYNA Rep #:[id number] : 1955 69 From: Debi Deleon DO PCP: Dr. Ottoniel Page, DO Status:ADM IN Location: [place] [address] Admission Information Primary Diagnosis:: Poststroke debility Status Changes from Prescreening?: No changes Identified Actual Problem List:: Skin Intergrity, Pain, ALteration in Cmfrt, Alteration in Sleep, Mobility Impaired, Self Care Deficit, Fluid Change-Dehydration and Alteration-Leisure Activ. Potential Problem List:: DVT, Bleeding, Infection, UTI, Aspiration, Falls, Skin Integrity and Depression Risk of Complications DVT: LMWH and SARA Hose Bleeding: Monitor Lab Values, Nursing to Teach Precautions for anti-coagulation therapy., Wound, if applicable, to be assessed every shift. and Stroke patients assessed for lethargy or change in status. Infection: Clinical Staff to Monitor for S/S of infection: and S/S of infection include fever, redness, warmth, etc. Urinary Tract Infection: Monitor for frequency, burning, discomfort, or incontinence. and Nursing will obtain urine sample for urinalysis and C&S when ordered. Aspiration: Clinical staff will monitor for coughing, drooling, congestion., Speech will evaluate swallowing and dsyphasia. and Nursing will monitor patient swallowing during meals. Falls: Patient will be evaluated for Fall Precautions and Patient will be placedon Fall Precautions as indicated per protocol. Skin Breakdown: Nursing will assess skin daily using assessment tool. and Nursing will place on Skin Breakdown Precautions as indicated. Pain: Clinical staff will assess patient's pain level per protocol., Medicationswill be given, if needed, and the pain level reassessed. and Other methods: Massage, distraction, decrease stimulus, etc. used PRN. Plan of Care Patient requires physician specializing in physical medicine and rehab oversightto provide close medical supervision of rehab issues including: Pain Management,Sleep Problems, Bowel and Bladder, Medical and co-morbidity Management, DVT prophylaxis, Rehabilitation Leadership and Coordination of treatment team Patient needs Physical Therapy: For a minimum of 1 hour and At least 5 out of 7 days Patient needs Physical Therapy to improve:: Mobility, Strengthening, Transfers, Stretching, ROM, Endurance, Stairs, Gait and Balance Patient needs Occupational Therapy: For a minimum of 1 hour and At least 5 out of 7 days Patient needs Occupational Therapy to improve ADL's incl.: Eating, Grooming, Bathing, Dressing, Toileting, Toilet transfers, Community Reintegration, Higher functioning activities, Household tasks, Adaptive Equipment, Splinting and Otheractivities as determined Patient requires 24/7 Rehabilitation Nursing for: Pain Issues, Identifying and preventing risk factors, Monitoring and reporting current medical conditions, Assisting with ambulation, transfer, and all ADL's, Teaching patients about disease process and medications, Family teaching, Providing safe environment, Bowel and Bladder Issues, Skin integrity and Medication Management Patient needs Stave And Bolt Equalizer/ Case Management for: Discharge Planning, Arranging Home Equipment or Services and Family Interventions Patient needs Dietary and Nutrition Services for: Adequate Nutrition, Nutritional Supplements and Nutritional Education Goals Goals Patient will remain: free from falls Patient will perform eating at: MOD I level of assist. Patient will perform bed mobility at: MOD I level of assist. Patient will complete transfers from bed to chair at: MOD I level of assist. Patient will ambulate: - (500 feet with least restrictive device at mod I) Patient will complete upper body dressing at: MOD I level of assist. Patient will complete lower body dressing at: MOD I level of assist. Patient will complete toilet transfer at: MOD I level of assist. Patient will complete toileting at: MOD I level of assist. Patient will perform bathing at: MOD I level of assist. (With adaptive this equipment as needed) Patient will perform Tub/Shower transfer at: - (Supervision) Patient will complete grooming at: MOD I level of assist. (While standing at thesink) Patient will achieve: - (At least 4 steps with a handrail at standby assist) Patient will have pain level of: of 3 or less Patient's skin will: remain intact Patient will receive: adequate nutrition. Discharge Planning Pt Prognosis for Sig. Practical Improv. w/in Reasonable Time: Good Estimated Length of stay (days): 21 Anticipated D/C Destination: Home with Outpt Therapy Was Preadmission Assessment Accurate?: Yes 08/30/241707 <Electronically signed by Debi Deleon DO> Cosigner Signature (if applicable): CC: ~ Signed [facility] Work Phone: [phone]) 380-341306-23-2025 History and physical note [facility] Medical Records Department [address] [place] [id number] Post Admission Physician Thierry 08/30/241701 MR#: [id number] Acct: [id number] Name: AMANDA REYNA Rep #:[id number] : 1955 69 From: Debi Deleon DO PCP: Dr. Ottoniel Page, Status:ADM IN Location: [place] [address] Admission Information Primary Diagnosis:: Poststroke debility Status Changes from Prescreening?: No changes Identified Actual Problem List:: Skin Intergrity, Pain, ALteration in Cmfrt, Alteration in Sleep, Mobility Impaired, Self Care Deficit, Fluid Change-Dehydration and Alteration-Leisure Activ. Potential Problem List:: DVT, Bleeding, Infection, UTI, Aspiration, Falls, Skin Integrity and Depression Risk of Complications DVT: LMWH and SARA Hose Bleeding: Monitor Lab Values, Nursing to Teach Precautions for anti-coagulation therapy., Wound, ifapplicable, to be assessed every shift. and Stroke patients assessed for lethargy or change in status. Infection: Clinical Staff to Monitor for S/S of infection: and S/S of infection include fever, redness, warmth, etc. Urinary Tract Infection: Monitor for frequency, burning, discomfort, or incontinence. and Nursing will obtain urine sample for urinalysis and C&S when ordered. Aspiration: Clinical staff will monitor for coughing, drooling, congestion., Speech will evaluate swallowing and dsyphasia. and Nursing will monitor patient swallowing during meals. Falls: Patient will be evaluated for Fall Precautions and Patient will be placedon Fall Precautionsas indicated per protocol. Skin Breakdown: Nursing will assess skin daily using assessment tool. and Nursing will place on Skin Breakdown Precautions as indicated. Pain: Clinical staff will assess patient's pain level per protocol., Medicationswill be given, if needed, and the pain level reassessed. and Other methods: Massage, distraction, decrease stimulus, etc. used PRN. Plan of Care Patient requires physician specializing in physical medicine and rehab oversightto provide close medical supervision of rehab issues including: Pain Management,Sleep Problems, Bowel and Bladder, Medical and co-morbidity Management, DVT prophylaxis, Rehabilitation Leadership and Coordination of treat ment team Patient needs Physical Therapy: For a minimum of 1 hour and At least 5 out of 7 days Patient needs Physical Therapy to improve:: Mobility, Strengthening, Transfers, Stretching, ROM, Endurance, Stairs, Gait and Balance Patient needs Occupational Therapy: For a minimum of 1 hour and At least 5 out of 7 days Patient needs Occupational Therapy to improve ADL's incl.: Eating, Grooming, Bathing, Dressing, Toileting, Toilet transfers, Community Reintegration, Higher functioning activities, Household tasks, Adaptive Equipment, Splinting and Otheractivities as determined Patient requires 24/7 Rehabilitation Nursing for: Pain Issues, Identifying and preventing risk factors, Monitoring and reporting current medical conditions, Assisting with ambulation, transfer, and all ADL's, Teaching patients about disease process and medications, Family teaching, Providing safe environment, Bowel and Bladder Issues, Skin integrity and Medication Management Patient needs Stave And Bolt Equalizer/ Case Management for: Discharge Planning, Arranging Home Equipment orServices and Family Interventions Patient needs Dietary and Nutrition Services for: Adequate Nutrition, Nutritional Supplements and Nutritional Education Goals Goals Patient will remain: free from falls Patient will perform eating at: MOD I level of assist. Patient will perform bed mobility at: MOD I level of assist. Patient will complete transfers from bed to chair at: MOD I level of assist. Patient will ambulate: - (500 feet with least restrictive device at mod I) Patient will complete upper body dressing at: MOD I level of assist. Patient will complete lower body dressing at: MOD I level of assist. Patient will complete toilet transfer at: MOD I level of assist. Patient will complete toileting at: MOD I level of assist. Patient will perform bathing at: MOD I level of assist. (With adaptive this equipment as needed) Patient will perform Tub/Shower transfer at: - (Supervision) Patient will complete grooming at: MOD I level of assist. (While standing at thesink) Patient will achieve: - (At least 4 steps with a handrail at standby assist) Patient will have pain level of: of 3 or less Patient's skin will: remain intact Patient will receive: adequate nutrition. Discharge Planning Pt Prognosis for Sig. Practical Improv. w/in Reasonable Time: Good Estimated Length of stay (days): 21 Anticipated D/C Destination: Home with Outpt Therapy Was Preadmission Assessment Accurate?: Yes 08/30/241707 Cosigner Signature (if applicable): CC: ~ Signed [facility]06-23-2025 [facility] Medical Records Department [address] [place] [id number] History Physical Exam 08/30/24 1211 MR#: [id number] Acct: [id number] Name: AMANDA REYNA Rep #: [id number] : 1955 69 From: Debi Deleon DO PCP: Dr. Ottoniel Page, DO Status:ADM IN Location: [address] HPI - General General Date of Admission: 08/29/24 Date of Service: 08/30/24 Chief Complaint: POST STROKE DEBILITY HPI Narrative AMANDA REYNA, is a 69 YO F with a PMH of SVT, coronary artery disease, Crohn's disease (follows with Dr. Kat), irritable bowel syndrome, essential tremor (on Mysoline and was referred to neurology by Dr. Page) , resection of a meningioma in 2009, obesity, or, history of pulmonary embolism (unprovoked), RLS, HLD, GERD, iron deficiency, tobacco dependence in remission, hypertension, anxiety/depression, glaucoma, wide-complex tachycardia and paroxysmal atrial fibrillation who presented to the emergency department at [facility] on 08/17/2024 complaining of numbness on the right side of her body. A stat noncontrast CT brain showed a left parietal intraparenchymal hemorrhage measuring up to 2.6 cm. Teleneurology was consulted and recommended transfer to [facility] for hemorrhagic stroke. They also recommended discussing with neurosurgery. CT was repeated at [facility] and demonstrated a left parietal hemorrhage measuring 2.4 cm x 1.9 cm x 2.5 cm without an underlying vascular malformation or aneurysm on CTA and with no midline shift. She was started on Keppra for seizure prophylaxis and an MRI of the brain was ordered. ASA was placed on hold. MRI of the brain on 08/18/2024 showed grossly stable size of the left parietal intraparenchymal hematoma with mild surrounding vasogenic edema with minimal local mass effect. There was an indeterminate right frontal bone lesion with mild associated contrast-enhancement and a small contrast-enhancing nodule in the right internal auditory canal suggestive of a small schwannoma. 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 She was taken to the OR on 08/20/2024 for resection of SM II AVF and evacuation of the hematoma. While ihn the hospital she was seen by PT/OT and ST. She was requiring MOD to total assist with ADL's and acute rehab was recommended at [place] from [facility]. She was transferred to the acute inpt rehab unit at [facility] on 08/29/24 for 3 hours of therapy daily to restore function/independence at or her level prior to the stroke. I reviewed the last cardiology note from 08/10/2024 and the results of the last echocardiogram which was in 2020 showed a left ventricular ejection fraction of 65% with a PA systolic estimated at 23. There was stage I diastolic dysfunction. She denied any long episodes of palpitations but has an occasional short run of palpitations. She was maintained on low-dose metoprolol but if the episodes become longer we will have a repeat Holter monitor. EEG at [facility] was negative for seizures. All lab drawn this morning was personally reviewed. The white blood cell count is 7.2 hemoglobin is 13.2. MCV is 84. Platelets are within normal limits. Sodium is 136 and the potassium is 3.9. BUN is 8 with a creatinine of 0.58 which is actually below her baseline. Calcium is 9.3 and the phosphorus is 4.0. Magnesium is 1.8. Blood pressure has ranged from 96/69 to 126/57. The heart rate is ranged from 72-77. Afebrile Maintaining appropriate oxygen saturation on room air. She tells me that she was seen in the ED a few days before the stroke for sustained AF with RVR.....she spontaneously converted in the ED prior to planned cardioversion. [facility] Medical History (Updated 08/30/24 @ 16:[address] Debi Deleon, DO) Loud snoring Essential tremor Obesity (BMI 35.0-39.9 without comorbidity) Glaucoma Urge incontinence Stroke/cerebrovascular accident History of steroid therapy History of Holter monitoring Cardiology follow-up encounter Wears glasses Wears dentures Arthritis Pulmonary embolism Restless legs Back pain History of IBS History of Crohn's disease Gastric reflux Former smoker Leg cramps History of stress test Hx of echocardiogram History of trigger finger Wide-complex tachycardia (04/27/20) COVID-19 virus detected (01/24/20) Lumbar stenosis without neurogenic claudication Essential (primary) hypertension Thyroid goiter History of meningioma of the brain Anxiety and depression Hyperlipidemia Paroxysmal atrial fibrillation Home Medications ???Medication ???Instructions ???Recorded ???Last Taken ???Type pantoprazole 40 mg tablet,delayed 40 mg PO DAILY GERD 10/13/1808/09 History release (Protonix) cephalexin 250 mg tablet 250 mg PO QHS Antibiotic 09/23/19 05/26/24 History hydrochlorothiazide 25 mg tablet 25 mg PO DAILY BP (more content not included)...[facility]06-22-2025 Miscellaneous Notes* Nursing Notes - Micaela Tejada RN - 08/29/2024 11:30 AM EDT AVS reviewed with patient. Prescriptions sent to home pharmacy. Patient acknowledges understanding of discharge instructions and denies questions at this time. PIV removed per policy. Patient transported via [facility] to [place] via EMS. Micaela Tejada RN * Nursing Notes - Micaela Tejada RN - 08/29/2024 11:30 AM EDT This nurse attempted to call report to [facility] with no respond to give report. Micaela Tejada RN * Plan of Care - Micaela Tejada RN - 08/29/2024 9:42 AM EDT Problem: Adult Inpatient Plan of Care Goal: Plan of Care Review Outcome: Adequate for Discharge Goal: Patient-Specific Goal (Individualized) Outcome: Adequate for Discharge Goal: Absence of Hospital-Acquired Illness or Injury Outcome: Adequate for Discharge Goal: Optimal Comfort and Wellbeing Outcome: Adequate for Discharge Goal: Readiness for Transition of Care Outcome: Adequate for Discharge Problem: Stroke, Intracerebral Hemorrhage Goal: Optimal Coping Outcome: Adequate for Discharge Goal: Effective Bowel Elimination Outcome: Adequate for Discharge Goal: Optimal Cerebral Tissue Perfusion Outcome: Adequate for Discharge Goal: Optimal Cognitive Function Outcome: Adequate for Discharge Goal: Effective Communication Skills Outcome: Adequate for Discharge Goal: Optimal Functional Ability Outcome: Adequate for Discharge Goal: Optimal Nutrition Intake Outcome: Adequate for Discharge Goal: Optimal Pain Control and Function Outcome: Adequate for Discharge Goal: Effective Oxygenation and Ventilation Outcome: Adequate for Discharge Goal: Improved Sensorimotor Function Outcome: Adequate for Discharge Goal: Safe and Effective Swallow Outcome: Adequate for Discharge Goal: Effective Urinary Elimination Outcome: Adequate for Discharge Problem: PT - General Goals Goal: Supine <-> Sit Transfers - Patient will perform supine to/from sit transfers with min Aand without use of hospital bed features in order to improve functional mobility and safety. Outcome: Adequate for Discharge Goal: Standing Endurance/Balance - Patient will perform standing balance tasks for 2 min with Min Aand least restrictive assistive device Outcome: Adequate for Discharge Goal: Ambulation - Patient will ambulate 50 feet with min A and with an assistive device to improveability to safely navigate home and community. Outcome: Adequate for Discharge Goal: Sit <-> Stand Transfers - Patient will perform sit to/from stand transfers with min A and with an assistive device in order to improve functional mobility and safety. Outcome: Adequate for Discharge Problem: OT - ADLs Goal: Bathing - Patient will perform full body bathing routine with minimal assistance while seatedfor improved ability to complete self-care activities Outcome: Adequate for Discharge Problem: Cardiac Catheterization (Diagnostic/Interventional) Goal: Absence of Bleeding Outcome: Adequate for Discharge Goal: Absence of Contrast-Induced Injury Outcome: Adequate for Discharge Goal: Stable Heart Rate and Rhythm Outcome: Adequate for Discharge Goal: Absence of Embolism Signs and Symptoms Outcome: Adequate for Discharge Goal: Anesthesia/Sedation Recovery Outcome: Adequate for Discharge Goal: Optimal Pain Control and Function Outcome: Adequate for Discharge Goal: Absence of Vascular Access Complication Outcome: Adequate for Discharge Problem: OT - Strength/ROM Goal: Neuro Re-education - Patient will participate in neuro re-ed of right upper extremity with minimal assistance and 75% accuracy for improved functional use in ADLs. Outcome: Adequate for Discharge Goal: Fine Motor Coordination - Patient will participate in fine motor coordination functional taskcompleting 10/10 reps with minimal assistance for improved fine motor strength and coordination required to complete self-care tasks. Outcome: Adequate for Discharge * Plan of Care - Micaela Tejada RN - 08/27/2024 6:40 PM EDT Problem: Adult Inpatient Plan of Care Goal: Plan of Care Review Outcome: Progressing Goal: Patient-Specific Goal (Individualized) Outcome: Progressing Goal: Absence of Hospital-Acquired Illness or Injury Outcome: Progressing Goal: Optimal Comfort and Wellbeing Outcome: Progressing Goal: Readiness for Transition of Care Outcome: Progressing Problem: Stroke, Intracerebral Hemorrhage Goal: Optimal Coping Outcome: Progressing Goal: Effective Bowel Elimination Outcome: Progressing Goal: Optimal Cerebral Tissue Perfusion Outcome: Progressing Goal: Optimal Cognitive Function Outcome: Progressing Goal: Effective Communication Skills Outcome: Progressing Goal: Optimal Functional Ability Outcome: Progressing Goal: Optimal Nutrition Intake Outcome: Progressing Goal: Optimal Pain Control and Function Outcome: Progressing Goal: Effective Oxygenation and Ventilation Outcome: Progressing Goal: Improved Sensorimotor Function Outcome: Progressing Goal: Safe and Effective Swallow Outcome: Progressing Goal: Effective Urinary Elimination Outcome: Progressing Problem: PT - General Goals Goal: Supine <-> Sit Transfers - Patient will perform supine to/from sit transfers with min Aand without use of hospital bed features in order to improve functional mobility and safety. Outcome: Progressing Goal: Standing Endurance/Balance - Patient will perform standing balance tasks for 2 min with Min Aand least restrictive assistive device Outcome: Progressing Goal: Ambulation - Patient will ambulate 50 feet with min A and with an assistive device to improveability to safely navigate home and community. Outcome: Progressing Goal: Sit <-> Stand Transfers - Patient will perform sit to/from stand transfers with min A and with an assistive device in order to improve functional mobility and safety. Outcome: Progressing Problem: OT - ADLs Goal: Bathing - Patient will perform full body bathing routine with minimal assistance while seatedfor improved ability to complete self-care activities Outcome: Progressing Problem: Cardiac Catheterization (Diagnostic/Interventional) Goal: Absence of Bleeding Outcome: Progressing Goal: Absence of Contrast-Induced Injury Outcome: Progressing Goal: Stable Heart Rate and Rhythm Outcome: Progressing Goal: Absence of Embolism Signs and Symptoms Outcome: Progressing Goal: Anesthesia/Sedation Recovery Outcome: Progressing Goal: Optimal Pain Control and Function Outcome: Progressing Goal: Absence of Vascular Access Complication Outcome: Progressing Problem: OT - Strength/ROM Goal: Neuro Re-education - Patient will participate in neuro re-ed of right upper extremity with minimal assistance and 75% accuracy for improved functional use in ADLs. Outcome: Progressing Goal: Fine Motor Coordination - Patient will participate in fine motor coordination functional taskcompleting 10/10 reps with minimal assistance for improved fine motor strength and coordination required to complete self-care tasks. Outcome: Progressing * Nursing Notes - Zee Kearney RN - 08/27/2024 2:44 PM EDT Images from the original note were not included. WOC/ET Nursing Consult/Evaluation Note Evaluated Amanda Reyna for wound located on gluteal. Patient seen sitting up in chair. Therapy currently at bedside and assisted patient to standing position so I could assess patient's wound. Description of wound: Gluteal (POA): gluteal cleft pink, yellow, moist and blanchable with a possible underlying fungal component. Periwound edges pink and blanchable. No drainage. No odor. Patient states with her historyof Chron's disease, getting fungal in folds in not uncommon for her. Recommendation: Gluteal: Keep area clean and dry. Utilize gentle cleansing with foam cleanser and soft wipes (no CHG), pat dry. Apply Aloe Roberts Antifungal ointment (red top) BID and with incontinent episodes. Bed Surface: Standard mattress Discharge Recommendations: Patient may continue care as described above at discharge. See image(s) below: Gluteal: Vincent Skin Assessment: Vincent Risk Assessment Sensory Perception: 3-->slightly limited Moisture: 3-->occasionally moist Activity: 2-->chairfast Mobility: 3-->slightly limited Nutrition: 3-->adequate Friction and Shear: 2-->potential problem Vincent Score: 16 Vincent Score: Vincent Score: 16 Body mass index is 33.06 kg/m . Total time spent in assessment and treatment of patient: 20 minutes LABS: Albumin Date Value Ref Range Status 08/17/2024 3.4 (L) 3.5 - 5.0 g/dL Final No results found for: PREALBUMIN Wound Documentation: 08/27/24 1400 Wound Irritant Contact Dermatitis Fungal Dermatitis 08/20/24 1400 Buttocks Date First Assessed/Time First Assessed: 08/20/24 1400 Primary Wound Type: Irritant Contact Dermatitis Secondary Wound Type - Irritant Contact Dermatitis: Fungal Dermatitis Location: Buttocks Wound Image Dressing Status Open to Air Assessment [place];Blanchable;Moist [place]-Wound Assessment Dry;Intact Drainage Amount None Periwound Care Applied antifungal Plan Problem dermatitis WOCT Visit Frequency PRN Last Date Seen 08/27/24 RN notified of assessment and plan. Please page #[phone] or reconsult with any further needs. * Plan of Care - Adela Zaldivar OT - 08/27/2024 2:14 PM EDT Problem: OT - ADLs Goal: Grooming - Patient will complete grooming edge of bed with minimal assistance for improved ability to safely complete ADLs. Outcome: Met Note: To brush dentures Problem: OT - Transfers Goal: Transfers Toilet/ Bedside Commode - Patient will transfer to/from toilet/bedside commode withmoderate assistance for improved ability to safely complete ADLs. Outcome: Met Problem: OT - Strength/ROM Goal: Neuro Re-education - Patient will participate in neuro re-ed of right upper extremity with minimal assistance and 75% accuracy for improved functional use in ADLs. Outcome: Progressing Goal: Fine Motor Coordination - Patient will participate in fine motor coordination functional taskcompleting 10/10 reps with minimal assistance for improved fine motor strength and coordination required to complete self-care tasks. Outcome: Progressing * Plan of Care - Layla Ramon RN - 08/26/2024 4:21 PM EDT Problem: Adult Inpatient Plan of Care Goal: Plan of Care Review Outcome: Progressing Goal: Patient-Specific Goal (Individualized) Outcome: Progressing Goal: Absence of Hospital-Acquired Illness or Injury Outcome: Progressing Goal: Optimal Comfort and Wellbeing Outcome: Progressing Goal: Readiness for Transition of Care Outcome: Progressing Problem: Stroke, Intracerebral Hemorrhage Goal: Optimal Coping Outcome: Progressing Goal: Effective Bowel Elimination Outcome: Progressing Goal: Optimal Cerebral Tissue Perfusion Outcome: Progressing Goal: Optimal Cognitive Function Outcome: Progressing Goal: Effective Communication Skills Outcome: Progressing Goal: Optimal Functional Ability Outcome: Progressing Goal: Optimal Nutrition Intake Outcome: Progressing Goal: Optimal Pain Control and Function Outcome: Progressing Goal: Effective Oxygenation and Ventilation Outcome: Progressing Goal: Improved Sensorimotor Function Outcome: Progressing Goal: Safe and Effective Swallow Outcome: Progressing Goal: Effective Urinary Elimination Outcome: Progressing Problem: Cardiac Catheterization (Diagnostic/Interventional) Goal: Absence of Bleeding Outcome: Progressing Goal: Absence of Contrast-Induced Injury Outcome: Progressing Goal: Stable Heart Rate and Rhythm Outcome: Progressing Goal: Absence of Embolism Signs and Symptoms Outcome: Progressing Goal: Anesthesia/Sedation Recovery Outcome: Progressing Goal: Optimal Pain Control and Function Outcome: Progressing Goal: Absence of Vascular Access Complication Outcome: Progressing * Plan of Care - Idalia Alvarez PT - 08/25/2024 2:54 PM EDT Problem: PT - General Goals Goal: Supine <-> Sit Transfers - Patient will perform supine to/from sit transfers with min Aand without use of hospital bed features in order to improve functional mobility and safety. Outcome: Progressing Goal: Standing Endurance/Balance - Patient will perform standing balance tasks for 2 min with Min Aand least restrictive assistive device Outcome: Progressing Goal: Ambulation - Patient will ambulate 50 feet with min A and with an assistive device to improveability to safely navigate home and community. Outcome: Progressing Goal: Sit <-> Stand Transfers - Patient will perform sit to/from stand transfers with min A and with an assistive device in order to improve functional mobility and safety. Outcome: Progressing * Plan of Care - Joseluis Beverly OT - 08/25/2024 11:30 AM EDT Problem: OT - ADLs Goal: Grooming - Patient will complete grooming edge of bed with minimal assistance for improved ability to safely complete ADLs. Outcome: Progressing Problem: OT - Transfers Goal: Transfers Toilet/ Bedside Commode - Patient will transfer to/from toilet/bedside commode withmoderate assistance for improved ability to safely complete ADLs. Outcome: Progressing Problem: OT - Strength/ROM Goal: Neuro Re-education - Patient will participate in neuro re-ed of right upper extremity with minimal assistance and 75% accuracy for improved functional use in ADLs. Outcome: Progressing Goal: Fine Motor Coordination - Patient will participate in fine motor coordination functional taskcompleting 10/10 reps with minimal assistance for improved fine motor strength and coordination required to complete self-care tasks. Outcome: Progressing * Plan of Care - Deann Lopez RN - 08/24/2024 2:49 PM EDT Problem: Adult Inpatient Plan of Care Goal: Plan of Care Review Outcome: Progressing Flowsheets (Taken 08/24/2024 1446) Progress: improving Plan of Care Reviewed With: patient Problem: Adult Inpatient Plan of Care Goal: Patient-Specific Goal (Individualized) Outcome: Progressing Problem: Adult Inpatient Plan of Care Goal: Absence of Hospital-Acquired Illness or Injury Outcome: Progressing Problem: Adult Inpatient Plan of Care Goal: Optimal Comfort and Wellbeing Outcome: Progressing Problem: Adult Inpatient Plan of Care Goal: Readiness for Transition of Care Outcome: Progressing Problem: Stroke, Intracerebral Hemorrhage Goal: Optimal Coping Outcome: Progressing Problem: Stroke, Intracerebral Hemorrhage Goal: Effective Bowel Elimination Outcome: Progressing Problem: Stroke, Intracerebral Hemorrhage Goal: Optimal Cerebral Tissue Perfusion Outcome: Progressing Problem: Stroke, Intracerebral Hemorrhage Goal: Optimal Cognitive Function Outcome: Progressing Problem: Stroke, Intracerebral Hemorrhage Goal: Effective Communication Skills Outcome: Progressing Problem: Stroke, Intracerebral Hemorrhage Goal: Optimal Functional Ability Outcome: Progressing Problem: Stroke, Intracerebral Hemorrhage Goal: Optimal Nutrition Intake Outcome: Progressing Problem: Stroke, Intracerebral Hemorrhage Goal: Optimal Pain Control and Function Outcome: Progressing Problem: Stroke, Intracerebral Hemorrhage Goal: Effective Oxygenation and Ventilation Outcome: Progressing Problem: Stroke, Intracerebral Hemorrhage Goal: Improved Sensorimotor Function Outcome: Progressing Problem: Stroke, Intracerebral Hemorrhage Goal: Safe and Effective Swallow Outcome: Progressing Problem: Stroke, Intracerebral Hemorrhage Goal: Effective Urinary Elimination Outcome: Progressing * Plan of Care - Tino Swann RN - 08/24/2024 5:56 AM EDT Problem: Adult Inpatient Plan of Care Goal: Plan of Care Review Outcome: Progressing Goal: Patient-Specific Goal (Individualized) Outcome: Progressing Goal: Absence of Hospital-Acquired Illness or Injury Outcome: Progressing Goal: Optimal Comfort and Wellbeing Outcome: Progressing Goal: Readiness for Transition of Care Outcome: Progressing Problem: Stroke, Intracerebral Hemorrhage Goal: Optimal Coping Outcome: Progressing Goal: Effective Bowel Elimination Outcome: Progressing Goal: Optimal Cerebral Tissue Perfusion Outcome: Progressing Goal: Optimal Cognitive Function Outcome: Progressing Goal: Effective Communication Skills Outcome: Progressing Goal: Optimal Functional Ability Outcome: Progressing Goal: Optimal Nutrition Intake Outcome: Progressing Goal: Optimal Pain Control and Function Outcome: Progressing Goal: Effective Oxygenation and Ventilation Outcome: Progressing Goal: Improved Sensorimotor Function Outcome: Progressing Goal: Safe and Effective Swallow Outcome: Progressing Goal: Effective Urinary Elimination Outcome: Progressing Problem: PT - General Goals Goal: Supine <-> Sit Transfers - Patient will perform supine to/from sit transfers with min Aand without use of hospital bed features in order to improve functional mobility and safety. Outcome: Progressing Goal: Standing Endurance/Balance - Patient will perform standing balance tasks for 2 min with Min Aand least restrictive assistive device Outcome: Progressing Goal: Ambulation - Patient will ambulate 50 feet with min A and with an assistive device to improveability to safely navigate home and community. Outcome: Progressing Goal: Sit <-> Stand Transfers - Patient will perform sit to/from stand transfers with min A and with an assistive device in order to improve functional mobility and safety. Outcome: Progressing Problem: OT - ADLs Goal: Grooming - Patient will complete grooming edge of bed with minimal assistance for improved ability to safely complete ADLs. Outcome: Progressing Goal: Bathing - Patient will perform full body bathing routine with minimal assistance while seatedfor improved ability to complete self-care activities Outcome: Progressing Problem: Cardiac Catheterization (Diagnostic/Interventional) Goal: Absence of Bleeding Outcome: Progressing Goal: Absence of Contrast-Induced Injury Outcome: Progressing Goal: Stable Heart Rate and Rhythm Outcome: Progressing Goal: Absence of Embolism Signs and Symptoms Outcome: Progressing Goal: Anesthesia/Sedation Recovery Outcome: Progressing Goal: Optimal Pain Control and Function Outcome: Progressing Goal: Absence of Vascular Access Complication Outcome: Progressing Problem: OT - Transfers Goal: Transfers Toilet/ Bedside Commode - Patient will transfer to/from toilet/bedside commode withmoderate assistance for improved ability to safely complete ADLs. Outcome: Progressing Problem: OT - Strength/ROM Goal: Neuro Re-education - Patient will participate in neuro re-ed of right upper extremity with minimal assistance and 75% accuracy for improved functional use in ADLs. Outcome: Progressing Goal: Fine Motor Coordination - Patient will participate in fine motor coordination functional taskcompleting 10/10 reps with minimal assistance for improved fine motor strength and coordination required to complete self-care tasks. Outcome: Progressing * Plan of Care - Roxie Tuttle PT - 08/23/2024 12:31 PM EDT Problem: PT - General Goals Goal: Ambulation - Patient will ambulate 50 feet with min A and with an assistive device to improveability to safely navigate home and community. Outcome: Ongoing Problem: PT - General Goals Goal: Supine <-> Sit Transfers - Patient will perform supine to/from sit transfers with min Aand without use of hospital bed features in order to improve functional mobility and safety. Outcome: Progressing Goal: Standing Endurance/Balance - Patient will perform standing balance tasks for 2 min with Min Aand least restrictive assistive device Outcome: Progressing Problem: PT - General Goals Goal: Sit <-> Stand Transfers - Patient will perform sit to/from stand transfers with min A and with an assistive device in order to improve functional mobility and safety. Outcome: Progressing * Plan of Care - Joseluis Beverly OT - 08/23/2024 12:23 PM EDT Problem: OT - ADLs Goal: Grooming - Patient will complete grooming edge of bed with minimal assistance for improved ability to safely complete ADLs. Outcome: Ongoing Goal: Bathing - Patient will perform full body bathing routine with minimal assistance while seatedfor improved ability to complete self-care activities Outcome: Ongoing Problem: OT - Strength/ROM Goal: Fine Motor Coordination - Patient will participate in fine motor coordination functional taskcompleting 10/10 reps with minimal assistance for improved fine motor strength and coordination required to complete self-care tasks. Outcome: Ongoing Problem: OT - Transfers Goal: Transfers Toilet/ Bedside Commode - Patient will transfer to/from toilet/bedside commode withmoderate assistance for improved ability to safely complete ADLs. Outcome: Progressing Problem: OT - Strength/ROM Goal: Neuro Re-education - Patient will participate in neuro re-ed of right upper extremity with minimal assistance and 75% accuracy for improved functional use in ADLs. Outcome: Progressing * Plan of Care - Tino Swann RN - 08/23/2024 4:51 AM EDT Problem: Adult Inpatient Plan of Care Goal: Plan of Care Review Outcome: Progressing Goal: Patient-Specific Goal (Individualized) Outcome: Progressing Goal: Absence of Hospital-Acquired Illness or Injury Outcome: Progressing Goal: Optimal Comfort and Wellbeing Outcome: Progressing Goal: Readiness for Transition of Care Outcome: Progressing Problem: Stroke, Intracerebral Hemorrhage Goal: Optimal Coping Outcome: Progressing Goal: Effective Bowel Elimination Outcome: Progressing Goal: Optimal Cerebral Tissue Perfusion Outcome: Progressing Goal: Optimal Cognitive Function Outcome: Progressing Goal: Effective Communication Skills Outcome: Progressing Goal: Optimal Functional Ability Outcome: Progressing Goal: Optimal Nutrition Intake Outcome: Progressing Goal: Optimal Pain Control and Function Outcome: Progressing Goal: Effective Oxygenation and Ventilation Outcome: Progressing Goal: Improved Sensorimotor Function Outcome: Progressing Goal: Safe and Effective Swallow Outcome: Progressing Goal: Effective Urinary Elimination Outcome: Progressing Problem: PT - General Goals Goal: Supine <-> Sit Transfers - Patient will perform supine to/from sit transfers with supervision and without use of hospital bed features in order to improve functional mobility and safety. Outcome: Progressing Goal: Sit <-> Stand Transfers - Patient will perform sit to/from stand transfers with supervision and without an assistive device in order to improve functional mobility and safety. Outcome: Progressing Goal: Standing Endurance/Balance - Patient will perform standing balance tasks for 8 min with supervision and without an assistive device Outcome: Progressing Goal: Ambulation - Patient will ambulate 150 feet with supervision and without an assistive device to improve ability to safely navigate home and community. Outcome: Progressing Goal: Stairs - Patient will ascend/descend 3 stairs with supervision, without an assistive device, and single railing(s) to improve ability to safely navigate home and community. Outcome: Progressing Problem: OT - ADLs Goal: Grooming - Patient will complete grooming in standing with supervision for improved ability to safely complete ADLs. Outcome: Progressing Problem: Cardiac Catheterization (Diagnostic/Interventional) Goal: Absence of Bleeding Outcome: Progressing Goal: Absence of Contrast-Induced Injury Outcome: Progressing Goal: Stable Heart Rate and Rhythm Outcome: Progressing Goal: Absence of Embolism Signs and Symptoms Outcome: Progressing Goal: Anesthesia/Sedation Recovery Outcome: Progressing Goal: Optimal Pain Control and Function Outcome: Progressing Goal: Absence of Vascular Access Complication Outcome: Progressing * Plan of Care - Ottoniel Arechiga RN - 08/22/2024 6:19 PM EDT Problem: Adult Inpatient Plan of Care Goal: Plan of Care Review Outcome: Progressing Goal: Patient-Specific Goal (Individualized) Outcome: Progressing Goal: Absence of Hospital-Acquired Illness or Injury Outcome: Progressing Goal: Optimal Comfort and Wellbeing Outcome: Progressing Goal: Readiness for Transition of Care Outcome: Progressing Problem: Stroke, Intracerebral Hemorrhage Goal: Optimal Coping Outcome: Progressing Goal: Effective Bowel Elimination Outcome: Progressing Goal: Optimal Cerebral Tissue Perfusion Outcome: Progressing Goal: Optimal Cognitive Function Outcome: Progressing Goal: Effective Communication Skills Outcome: Progressing Goal: Optimal Functional Ability Outcome: Progressing Goal: Optimal Nutrition Intake Outcome: Progressing Goal: Optimal Pain Control and Function Outcome: Progressing Goal: Effective Oxygenation and Ventilation Outcome: Progressing Goal: Improved Sensorimotor Function Outcome: Progressing Goal: Safe and Effective Swallow Outcome: Progressing Goal: Effective Urinary Elimination Outcome: Progressing Problem: Cardiac Catheterization (Diagnostic/Interventional) Goal: Absence of Bleeding Outcome: Progressing Goal: Absence of Contrast-Induced Injury Outcome: Progressing Goal: Stable Heart Rate and Rhythm Outcome: Progressing Goal: Absence of Embolism Signs and Symptoms Outcome: Progressing Goal: Anesthesia/Sedation Recovery Outcome: Progressing Goal: Optimal Pain Control and Function Outcome: Progressing Goal: Absence of Vascular Access Complication Outcome: Progressing * Plan of Care - Ottoniel Arechiga RN - 08/21/2024 5:49 PM EDT Problem: Adult Inpatient Plan of Care Goal: Plan of Care Review Outcome: Progressing Goal: Patient-Specific Goal (Individualized) Outcome: Progressing Goal: Absence of Hospital-Acquired Illness or Injury Outcome: Progressing Goal: Optimal Comfort and Wellbeing Outcome: Progressing Goal: Readiness for Transition of Care Outcome: Progressing Problem: Stroke, Intracerebral Hemorrhage Goal: Optimal Coping Outcome: Progressing Goal: Effective Bowel Elimination Outcome: Progressing Goal: Optimal Cerebral Tissue Perfusion Outcome: Progressing Goal: Optimal Cognitive Function Outcome: Progressing Goal: Effective Communication Skills Outcome: Progressing Goal: Optimal Functional Ability Outcome: Progressing Goal: Optimal Nutrition Intake Outcome: Progressing Goal: Optimal Pain Control and Function Outcome: Progressing Goal: Effective Oxygenation and Ventilation Outcome: Progressing Goal: Improved Sensorimotor Function Outcome: Progressing Goal: Safe and Effective Swallow Outcome: Progressing Goal: Effective Urinary Elimination Outcome: Progressing Problem: Cardiac Catheterization (Diagnostic/Interventional) Goal: Absence of Bleeding Outcome: Progressing Goal: Absence of Contrast-Induced Injury Outcome: Progressing Goal: Stable Heart Rate and Rhythm Outcome: Progressing Goal: Absence of Embolism Signs and Symptoms Outcome: Progressing Goal: Anesthesia/Sedation Recovery Outcome: Progressing Goal: Optimal Pain Control and Function Outcome: Progressing Goal: Absence of Vascular Access Complication Outcome: Progressing * Nursing Notes - Ottoniel Arechiga RN - 08/21/2024 3:00 PM EDT On admission to [facility], from another [facility] inpatient unit a dual RN initial assessment of skin conditionwas performed by Ottoniel Arechiga RN and Micaela Tejada RN. Skin Assessment: Skin not within defined limits. - Photo taken and uploaded into notes in [facility]: Yes Bruising/swelling under L. Armpit. Blanchable pinkness of buttocks. Vincent Score: 17 LDA Added:No Ottoniel Arechiga RN * Plan of Care - Mary Conway RN - 08/21/2024 3:59 AM EDT Problem: Adult Inpatient Plan of Care Goal: Plan of Care Review Outcome: Progressing Goal: Patient-Specific Goal (Individualized) Outcome: Progressing Goal: Optimal Comfort and Wellbeing Outcome: Progressing Goal: Readiness for Transition of Care Outcome: Progressing Problem: Stroke, Intracerebral Hemorrhage Goal: Optimal Cognitive Function Outcome: Progressing Goal: Effective Urinary Elimination Outcome: Progressing * Nursing Notes - Kenrick Mariscal RN - 08/20/2024 6:51 PM EDT On admission to [facility], from another [facility] inpatient unit a dual RN initial assessment of skin condition was performed by Kenrick Mariscal RN and WON Meyer. Skin Assessment: Skin not within defined limits. - Pressure Injury suspected: Yes Vincent Score: 16 LDA Added:Yes Kenrick Mariscal RN * Op Note - Marian Mcdonald MD - 08/20/2024 2:10 PM EDT Patient: Amanda Reyna Procedure Date: 08/20/24 Attending: Marian Mcdonald MD Slot Floor Supervisor: none Preoperative diagnosis: 1. Left parietal intraparenchymal hemorrhage with associated fistula vs. AVM 2. Right hemisensory changes 3. Brain compression 4. Cytotoxic brain edema 5. History of supraventricular tachycardia 6. Coronary artery disease 7. Crohn's disease 8. Left parietal meningioma s/p craniotomy and resection 9. Obesity (Body mass index is 33.06 kg/m .) Post-operative diagnosis: 1. 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 Right hemisensory changes 3. Brain compression 4. Cytotoxic brain edema 5. History of supraventricular tachycardia 6. Coronary artery disease 7. Crohn's disease 8. Left parietal meningioma s/p craniotomy and resection 9. Obesity (Body mass index is 33.06 kg/m .) Procedure: 1. Ultrasound-guided percutaneous access of the left common femoral artery and placement of a 5 [place] short sheath 2. Left internal carotid artery arteriogram 3. Use of intraoperative fluoroscopy Equipment: 1. 5F short sheath 2. Vertebral diagnostic catheter 3. Angled glidewire Anesthesia: General EBL: Minimal Specimens: None Complications: None Indications: Amanda Reyna is a 69-year-old female with a past medical history of supraventricular tachycardia, coronary artery disease on aspirin, Crohn's disease, obesity, and left parietal convexity meningioma status post resection 2009 who presented with a left intraparenchymal hemorrhage. She underwent a diagnostic angiogram that revealed a underlying vascular malformation. She was taken to the OR for craniotomy for resection, and it was recommended she undergo intraoperative angiography. The procedure/surgery was discussed in detail with the patient's . All benefits and risks, including but not limited to - seizure, stroke, coma, , infection, bleeding, weakness, numbness, tingling, nondiagnostic, no improvement, need for further surgery, vessel injury, kidney injury, limb ischemia/loss - were discussed. All questions were answered. The patient's agreed to surgery and signed informed consent. Procedure in detail: The patient was already in the operating room undergoing her craniotomy. Please refer to separate dictation. Once that was completed, her left groin was clipped, prepped, and draped in the appropriate sterile fashion. A time-out was then called. Ultrasound guidance was used to obtain percutaneous access of the left common femoral artery, and a5 [place] short sheath was placed. Next, the diagnostic catheter over the angled Glidewire was advanced through the sheath and into the arch. The left internal carotid artery was catheterized. Two left internal carotid artery arteriograms were performed. The catheter was then removed. The sheath wasremoved, and a Mynx was placed for closure device. The patient was awoken from general endotracheal anesthesia in stable condition and transported to the ICU. Findings: Left internal carotid artery arteriogram-this demonstrates antegrade flow in the anterior and middle cerebral arteries. There is no early venous drainage. There is obliteration of the previously seensmall AVM Spetzler Raymond grade 2. Assessment/Plan: Successful intraoperative angiogram. Flat 2 hours. 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] PROCEDURE PERFORMED Procedure(s) (LRB): EVACUATION BRAIN HEMATOMA BY CRANIECTOMY/CRANIOTOMY SUPRATENTORIAL (Left) PLACEMENT CATH SELECTIVE INTERNAL CAROTID ARTERY W/ ANGIO IPSILAT INTRACRANIAL CAROTID W/ RAD S&I (N/A) PRIMARY CLOSURE Yes INTRAOPERATIVE FINDINGS L parietal craniotomy for resection of SM2 AVM Negative intra-op angiogram following resection SURGEON Surgeons and Role: * Marian Mcdonald MD - Primary ANESTHESIOLOGIST Anesthesiologist: Tomas Lang MD MIXOLOGIST: Davon Lala APRN-MIXOLOGIST Photographer Portrait: WHITNEY Roca Student Anesthesiologist Slot Floor Supervisor: Sarah River SURGICAL STAFF Cartridge Belt Puncher: Latoya Marrufo RN Relief Cartridge Belt Puncher: Armen Dickson RN Relief Scrub: Jeremy Ramirez RN Scrub Person: Kusum [place]; Amol Márquez Resident Assisting: Iker Morris MD Heel Nailing Machine Operator: Marco Antonio Vaca COMPLICATIONS None ESTIMATED BLOOD LOSS 50 ml SPECIMENS ID Type Source Tests Collected by Time Destination 1 : left parietal lesion Permanent SURG PATH SURG PATH REQUEST Marian Mcdonald MD 08/20/2024 1118 2 : left parietal hematoma Permanent SURG PATH SURG PATH REQUEST Marian Mcdonald MD 08/20/2024 1143 3 : left parietal vascular malformation Permanent SURG PATH SURG PATH REQUEST Marian Mcdonald MD 08/20/2024 1152 Iker Morris MD August 20, 2024 1:32 PM Cosigned by Marian Mcdonald MD at 08/20/2024 2:05 PM EDT * Op Note - Iker Morris MD - 08/20/2024 12:00 PM EDT Operative Report DATE PERFORMED: 08/20/2024 SURGEON(S): Marian Mcdonald MD. RESIDENT ASSISTING: Iker Morris MD. PREOPERATIVE DIAGNOSES: 1. Left parietal intraparenchymal hemorrhage. 2. Right hemisensory changes. 3. Brain compression. 4. Cytotoxic brain edema. 5. History of supraventricular tachycardia. 6. Coronary artery disease. 7. Crohn disease. 8. Left parietal meningioma, status post craniotomy and resection. 9. Obesity with a body mass index of 33. 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 POSTOPERATIVE DIAGNOSES: 1. Left parietal intraparenchymal hemorrhage with associated Spetzler-Raymond Grade II AVM. 2. Right hemisensory changes. 3. Brain compression. 4. Cytotoxic brain edema. 5. History of supraventricular tachycardia. 6. Coronary artery disease. 7. Crohn disease. 8. Left parietal meningioma, status post craniotomy and resection. 9. Obesity with a body mass index of 33. 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 11. 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 PROCEDURES PERFORMED: 1. Redo left parietal craniotomy for resection of Spetzler-Raymond grade 2 arteriovenous malformation. 2. Evacuation of intraparenchymal hematoma. 3. Use and interpretation of intraoperative ultrasound. 4. Use and interpretation of intradural neuronavigation. 5. Intraoperative angiography (dictated separately). COMPLICATIONS: None. ESTIMATED BLOOD LOSS: 50 mL. ANESTHESIA: General endotracheal. SPECIMENS: Left parietal lesion, left parietal hematoma, left parietal vascular malformation, all for permanent specimen. INDICATIONS FOR PROCEDURE: Ms. Amanda Reyna is a 69-year-old female with a history of a parietal-convexity meningioma that was previously resected by craniotomy who presented with hemisensory deficits and an intraparenchymal hematoma but was found to have an MCA branch to cortical vein arteriovenous fistula on diagnostic angiography. We discussed the risks, rationale, possible benefits, and possible alternatives to craniotomy for disconnection of the fistula with the patient, and she wished to proceed and provided informed consent. DESCRIPTION OF PROCEDURE: She was brought to the operating room on 08/20/2024, where she was identified in an Anesthesia sign-in. Appropriate IV access was obtained. General anesthesia was induced. She was intubated without difficulty. An arterial line and Jalloh catheter were placed. Her head was fixed in a [place] head inspector and secured to the bed. Her preoperative MRI and CT angiograms were registered to her scalp using the [employer] neuronavigation system. We identified the previous incision and clipped the hair over this incision. We prepped and draped in the usual sterile fashion. We performed a surgical time-out. We gave preincisional antibiotics. We opened up the prior incision with a #10 blade and carried this down to the skull. We exposed the previous craniotomy. We removed the screws and plates from the previous craniotomy. We noted that the craniotomy was already fused, so we used a combination of curettes, Kerrison rongeurs, and a B1 drill bit to turn our craniotomy along the lines of the previous craniotomy. We noted that there was a large dural defect underneath where the previous meningioma had been resected. There was an abnormal-appearing lesion just on the medial aspect of the dural exposure that we removed en bloc and passed off for permanent specimen. Next, we noted that there was a fistulous connection between a tangle of vessels and a cortical vein on the posterolateral aspect of the craniotomy/durotomy. We noted that there was an arterialized venous flow of the vein distal to this connection. We dissected along the arachnoid and skeletonized this connection as much as we could. We coagulated the connection but noted that there was continued bleeding from this region. We obtained as best hemostasis as we could and then turned our attention to hematoma evacuation. We used ultrasound to verify that the hematoma was underneath our exposure and localized the appropriate spot for corticectomy. We used neuronavigation to assist us in this planning as well. We used bipolar forceps to perform a corticotomy over the parietal lobe. We dissected around the hematoma, evacuated it in a piecemeal fashion, and sent this for permanent specimen. At the lateral posterior aspect of the hematoma, we noted that there was a firm ball and tangle of abnormal-appearing blood vessels. We dissected around this in a circumferential fashion and freed up many attachments to the cortical vein. We divided these vessels and coagulated all of the abnormal arterial connections that we could see. We removed the nidus of abnormal blood vessels in 1 piece and sent this for permanent specimen as well. We irrigated the wound copiously. We obtained hemostasis. We coagulated any remaining abnormal vessels. We lined the surgical cavity with a single layer of Surgicel. We placed some Tisseal into the surgical cavity as well. We turned our attention to closing. We placed DuraGen inlay and onlay. We placed Tisseal over this. We reaffixed the bone flap to the skull using a Synthes cranial fixation set. We irrigated the wound copiously again. We closed the scalp in a layered fashion using Vicryls for the galea and running 3-0 nylon for the skin. We applied a sterile dressing. We removed the patient from the [place] head inspector and turned our attention to the intraoperative angiography, which will be dictated separately. She was woken up from general anesthesia and extubated without difficulty. She was transferred to the neuro ICU in stable condition at her neurologic baseline. All counts were correct. Dr. Mcdonald was present for the entirety of this case. Dictated By: MD Marian Worrell MD ATTENDING JLW/Med JOB: [id number] DOC: [id number] Cosigned by Marian Mcdonald MD at 08/23/2024 1:59 PM EDT Associated attestation - Marian Mcdonald MD - 08/23/2024 1:59 PM EDT I was present and immediately available for all critical portions of the case. I agree with the documentation below. Left parietal Spetzler-Raymond Grade II AVM. Marian Mcdonald MD Wardrobe Supervisor of Neurological Surgery [id number] * Medical Student - Letty Hill - 08/20/2024 7:38 AM EDT Images from the original note were not included. NEUROVASCULAR STROKE SERVICE DAILY PROGRESS NOTE IDENTIFYING INFORMATION Amanda Reyna 08/20/2024 HISTORY OF PRESENT ILLNESS Amanda Reyna is a 69 y.o. 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 LKW 1630 08/17. Pt was working on her car and her came home. She first developed a shocking sensation from her shoulder down to all her fingers. Fifteen minutes later, she developed right facenumbness and right outer thigh tingling. Has also been dropping objects with her right arm, having trouble with fine motor movements. Denies headache, nausea, vomiting, photophobia, slurred speech, word-finding difficulties, or facial droop. Went to OSH. CTH showed left parietal ICH. Initial BP reportedly was 130s. Telestroke done without NIH, transferred to [facility]. On arrival to [facility], CTH was stable and CTA unrevealing. No acute events overnight. Met patient today while she was getting ready for transport to the OR. She was feeling quite good today and was ready to go to surgery. INTERVAL HISTORY 08/17/24: Admitted to MD, stable CTH 08/18/24: MRI with L parietal ICH, request DCA from NS 08/19/24: DCA today, shows AV fistula 08/20/24: Open AVF ligation procedure PHYSICAL EXAM General Physical Exam Note: Examination limited by ongoing transport to surgery. General: No acute distress, lying comfortably in bed HENT: Normal oropharynx and mucosa CV/Chest: Regular rate and rhythm per telemetry Lungs: No audible wheezing or accessory muscle use, normal work of breathing Abdomen: Not assessed Extremities: Warm, no appreciable edema or cyanosis Neurologic Examination Note: Neurologic examination not performed this morning due to ongoing transport to surgery. NIHSS 08/20/2024 Provider NIH Stroke Scale NIH Interval (Provider): daily NIH Level of Conciousness (Provider): 0 NIH LOC Questions (Provider): 0 NIH LOC Commands (Provider): 0 NIH Best Gaze (Provider): 0 NIH Visual (Provider): 0 NIH Facial Palsy (Provider): 0 NIH Left Arm Motor (Provider): 0 NIH Right Arm Motor (Provider): 0 NIH Left Leg Motor (Provider): 0 NIH Right Leg Motor (Provider): 0 NIH Limb Ataxia (Provider): 0 NIH Sensory (Provider): 1 NIH Best Language (Provider): 0 NIH Dysarthria (Provider): 0 NIH Extinction and Inattention (Provider): 0 NIH Total Score (Provider): 1 ASSESSMENT AND PLAN Left parietal ICH (08/17/24): No intervention Etiology: Left AV fistula of distal MCA branch CT head: Acute left parietal intraparenchymal hematoma near vertex. CTA brain/neck: Patent vasculature. Repeat CTH 6H: Stable Repeat CTH 24H: Stable MRI: Shows left parietal ICH with mild brain edema and w/o mass effect. SBP: < 140 LDL: 83 A1C: 6.1% TTE: Not ordered Statin therapy: Held; recs per NSG Antiplatelet therapy: Recs per NSG Anticoagulation: Not on AC at home, will be able to start once AV fistula secured DVT ppx: Recs per NSG NSG consulted for DCA to evaluate for vascular malformation, shows AV fisutla OR today for ligation Refer to Neurosurgery for recommendations regarding monitoring of prior noted brain edema and any changes Ischemic Stroke Core Measures NIHSS on admission: 1 ICH volume: 3.31, ICH score: 0 Started on mechanical (SCDs) DVT prophylaxis; --- pharmacological (SQ heparin/Lovenox) prophylaxis can be started after NSG approval Antiplatelet and anticoagulation therapy not indicated LDL (83) and HgbA1c (6.1) were checked and the patient will be discharged on a lipid lowering statin medication if LDL > 70 Dysphagia screening ordered, and will be completed prior to patient receiving oral intake Stroke education booklet has been ordered and will be provided by the RN that includes both writtenand verbal education to the patient and/or family regarding hemorrhagic strokes. We have reviewed the patient's personal modifiable risk factors, and will provide education on reducing these risk factors Patient will be assessed for rehab by PT/OT/Speech and PM&R if indicated Concern for seizure Patient with progressive positive phenomenon in RUE>RLE and R face, fluctuating EEG unrevealing Continue Keppra 1000 mg BID Chronic medical conditions These plans are subject to change post-operatively per neurosurgery recommendations. HTN Hold hydrochlorothiazide 25 mg daily, fold in as able Afib Continue sotalol 80 mg BID, hold home ASA 81 mg Glaucoma Continue latanoprost and timolol eye drops Mood disorder Hold wellbutrin 150 mg XL for now, okay to restart when AV fistula secured RLS Continue ropinirole 0.25 mg in AM and 0.5 mg in afternoon and night GERD Continue pantoprazole Chronic LBP Continue gabapentin 400 mg TID, Percocet Q6H PRN ET Continue Primidone 50 mg 4x daily Crohn's disease Continue Stelara Eczema, vaginal dryness, recurrent fungal infection 2/2 stellara Clotrimazole, clobetazole, and betamethasone creams as needed Diet: DIET NPO with meds DVT prophylaxis: SCDs, Lovenox post-24h CT Code status: Full Code Dispo: IPR Patient seen and discussed with neurovascular attending Pratibha Victor MD. TABATHA Metcalf MS4 [facility] VITAL SIGNS Temp: [97.3 F (36.3 C)-98.6 F (37 C)] 98.4 F (36.9 C) Pulse (Heart Rate): [62-76] 63 Resp Rate: [14-27] 23 BP: (100-135)/(50-71) 104/52 O2 Sat (%): [90 %-100 %] 95 % Oxygen Therapy: Oxygen Therapy O2 Sat (%): 95 % O2 Device: nasal cannula Flow (L/min): 2 Intake/Output: Intake/Output Summary (Last 24 hours) at 08/20/2024 0739 Last data filed at 08/20/2024 0625 Gross per 24 hour Intake 1645.83 ml Output -- Net 1645.83 ml LABS/CULTURES Lab Results Component Value Date WBC 6.45 08/20/2024 HGB 13.5 08/20/2024 HCT 45.1 (H) 08/20/2024 PLATELET 190 08/20/2024 MCV 88.4 08/20/2024 Lab Results Component Value Date SODIUM 140 08/20/2024 POTASSIUM 4.2 08/20/2024 CHLORIDE 104 08/20/2024 CO2 25 08/20/2024 BUN 8 08/20/2024 CREATSERUM 0.66 08/20/2024 GLUCOSE 99 08/20/2024 Lab Results Component Value Date CHOLESTEROL 159 08/17/2024 TRIG 138 08/17/2024 HDL 48 08/17/2024 LDLCALC 83 08/17/2024 Lab Results Component Value Date HGBA1C 6.1 (H) 08/17/2024 Lab Results Component Value Date ALBUMIN 3.4 (L) 08/17/2024 , No results found for: CPK, TROP IMAGING/DIAGNOSTIC STUDIES PV FLUOROSCOPY OR CT HEAD WITHOUT CONTRAST Final Result IMPRESSION: No significant interval change. Stable left parietal lobe hematoma. BRAIN WITH AND WITHOUT CONTRAST Final Result IMPRESSION: 1. Grossly stable size of left [...] I have reviewed and approved this report. HEAD WITHOUT CONTRAST Final Result IMPRESSION: Stable intraparenchymal hematoma involving the left parietal lobe. No new hemorrhage. STROKE ANGIO BRAIN/NECK Final Result IMPRESSION: 1. Widely patent cervical and intracranial arterial vasculature. 2. No evidence of aneurysm, vascular malformation, or active bleeding. I personally viewed and interpreted these images and I have reviewed and approved this report. STROKE HEAD-STROKE ALERT ONLY Final Result IMPRESSION: 1. Acute left parietal intraparenchymal hematoma near vertex. 2. No significant midline shift, herniation, hydrocephalus. 3. Suspect remote left basal ganglial lacunar insults. Correlate with outside imaging to ensure stability. Findings were discussed with Ana Lilia Hurley DO at 2157 on 08/17/2024. I personally viewed and interpreted these images and I have reviewed and approved this report. BRAIN WITH AND WITHOUT CONTRAST (Results Pending) MEDICATIONS Gabapentin 400 mg Oral TID Latanoprost 1 drop Both Eyes QHS levETIRAcetam 1,000 mg Oral Q12H Pantoprazole 40 mg Oral Daily Primidone 50 mg Oral 4x daily rOPINIRole 0.25 mg Oral QAM rOPINIRole 0.5 mg Oral 2 times per day Senna 8.6 mg Oral Daily Or Senna 8.6 mg Per NG tube Daily Sotalol 80 mg Oral Q12HNS Timolol maleate 1 drop Left Eye Daily Cosigned by Pratibha Victor MD at 08/23/2024 6:01 PM EDT * Op Note - Marian Mcdonald MD - 08/19/2024 2:24 PM EDT Patient: Amanda Reyna Procedure Date: 08/19/24 Attending: Marian Mcdonald MD Slot Floor Supervisor: none Preoperative diagnosis: 1. Left parietal intraparenchymal hemorrhage 2. Right hemisensory changes 3. Brain compression 4. Cytotoxic brain edema 5. History of supraventricular tachycardia 6. Coronary artery disease 7. Crohn's disease 8. Left parietal meningioma s/p craniotomy and resection 9. Obesity (Body mass index is 33.06 kg/m .) Post-operative diagnosis: 1. Left parietal intraparenchymal hemorrhage 2. Right hemisensory changes 3. Brain compression 4. Cytotoxic brain edema 5. History of supraventricular tachycardia 6. Coronary artery disease 7. Crohn's disease 8. Left parietal meningioma s/p craniotomy and resection 9. Obesity (Body mass index is 33.06 kg/m .) Procedure: 1. Right common femoral artery arteriogram 2. Right external carotid artery arteriogram 3. Right internal carotid artery arteriogram 4. Right vertebral artery arteriogram 5. Right common carotid artery arteriogram, intracranial circulation 6. Left external carotid artery arteriogram 7. Left internal carotid artery arteriogram 8. Left common carotid artery arteriogram, intracranial circulation 9. Left vertebral artery arteriogram Equipment: 1. 6F short sheath 2. Vertebral diagnostic catheter 3. Angled glidewire Anesthesia: MAC EBL: minimal Specimens: none Complications: none Indications: Amanda Reyna is a 69-year-old female with a past medical history of supraventricular tachycardia, coronary artery disease on aspirin, Crohn's disease, obesity, and left parietal convexity meningioma status post resection in 2009 who presented with a left parietal intraparenchymal hemorrhage underneath the previous craniotomy site. It was recommended that she undergo diagnostic angiogram for further evaluation. The procedure/surgery was discussed in detail with the patient. All benefits and risks, including but not limited to - seizure, stroke, coma, , infection, bleeding, weakness, numbness, tingling, nondiagnostic, no improvement, need for further surgery, vessel i njury, kidney injury, limb ischemia/loss - were discussed. All questions were answered. The patientagreed to surgery and signed informed consent. Procedure in detail: The patient was brought into the operating room placed supine on the operatingtable. All pressure points were padded appropriately. Monitored anesthesia care was induced. Once under anesthesia, the bilateral groins were clipped, prepped, and draped in the appropriate sterile fashion. A time-out was then called. Percutaneous access was obtained of the right common femoral artery, and a 5 [place] short sheath was placed. A right common femoral artery arteriogram was performed. Next, the diagnostic catheter with angled Glidewire was advanced through the sheath into the arch. Under roadmap guidance, the right external carotid artery was catheterized. Multiple right external carotid artery arteriograms were performed. The catheter was withdrawn into the right common carotid artery, and the right internal carotid artery was catheterized. Multiple right internal carotid artery arteriograms were performed. The catheter was withdrawn into the brachiocephalic artery, and under roadmap guidance the catheterwas navigated over the angled Glidewire into the right vertebral artery. Multiple right vertebral artery arteriograms were performed. The catheter was then withdrawn into the brachiocephalic artery and advanced over the wire into the right common carotid artery. A right common carotid artery arteriogram of the intracranial circulation was performed. The catheter was withdrawn into the arch, and the left common carotid artery was catheterized. The catheter was navigated over the angled Glidewire into the left external carotid artery. Multiple left external carotid artery arteriograms were performed. The catheter was withdrawn into the common carotid artery, and the left internal carotid artery was catheterized. Multiple left internal carotid a rtery arteriograms were performed. The catheter was then withdrawn into the common carotid artery, and a common carotid artery arteriogram of the intracranial circulation was performed. The catheter was withdrawn into the arch, and the left vertebral artery was catheterized. A left vertebral artery arteriogram was performed. The catheter was then removed. The sheath was removed, and a Mynx was placed for closure device. The patient was awoken from monitored anesthesia care in stable condition and transported to recovery. Findings: Right common femoral artery arteriogram-this demonstrates a puncture site above the bifurcation butbelow the inferior epigastric artery that is amenable to a radial approach. Right external carotid artery arteriogram-this demonstrates antegrade flow in the external carotid artery and its branches. There is no evidence of early venous drainage. Right internal carotid artery arteriogram-this demonstrates antegrade flow in the anterior and middle cerebral arteries. There was no evidence of early venous drainage. There is a patent anterior communicating artery. Right vertebral artery arteriogram-this demonstrates antegrade flow in the right vertebral artery, basilar artery, and bilateral posterior cerebral arteries with reflux down the left vertebral artery. The right P1 is extremely hypoplastic. There is no early venous drainage. Right common carotid artery arteriogram, intracranial circulation-this demonstrates antegrade flow without evidence of early venous drainage. Left external carotid artery arteriogram-this demonstrates antegrade flow in the external carotid artery and its branches. There was no evidence of early venous drainage. Left internal carotid artery arteriogram-this demonstrates antegrade flow in the anterior and middle cerebral arteries. Distally there is an arteriovenous fistula with feeders from the distal middle cerebral artery that fills a cortical vein that then drains into the sagittal sinus. There was no definitive dural filling and no definitive nidus. This was underneath the old craniotomy site. Left common carotid artery arteriogram, intracranial circulation-this again demonstrates this arteriovenous fistula. There was no contribution from the external carotid artery circulation. Left vertebral artery arteriogram-this demonstrates antegrade flow in the left vertebral artery, basilar artery, bilateral posterior cerebral arteries. There was no evidence of early venous drainage.The right P1 is hypoplastic. Assessment/Plan: Successful diagnostic angiogram with arteriovenous fistula underneath the old leftparietal craniotomy site. This is not able to be treated endovascularly. We will plan for open surgery tomorrow. Flat 2 hours. Marian Mcdonald MD Wardrobe Supervisor of Neurological Surgery [id number] * Brief Op Note - Marian Mcdonald MD - 08/19/2024 2:23 PM EDT Amanda Reyna ([id number]) PRE OPERATIVE DIAGNOSIS Nontraumatic intracerebral hemorrhage of cerebellum, unspecified laterality [I61.4] POST OPERATIVE DIAGNOSIS Nontraumatic intracerebral hemorrhage of cerebellum, unspecified laterality [I61.4] PROCEDURE PERFORMED Procedure(s) (LRB): DIAGNOSTIC CEREBRAL ANGIOGRAM (N/A) PRIMARY CLOSURE No INTRAOPERATIVE FINDINGS Left arteriovenous fistula of distal MCA branch to cortical vein draining to sagittal sinus. SURGEON Surgeons and Role: * Marian Mcdonald MD - Primary ANESTHESIOLOGIST Anesthesiologist: Deepak Deluca MD MIXOLOGIST: Francisco López APRN-MIXOLOGIST SURGICAL STAFF Cartridge Belt Puncher: Adriana Waller RN Bag Sewer: Celina Hill; Janeth Carrasco; Abhishek Díaz; Amol Márquez COMPLICATIONS None ESTIMATED BLOOD LOSS Minimal SPECIMENS No specimen sent * No specimens in log * Marian Mcdonald MD August 19, 2024 2:23 PM * Plan of Care - Amol Barakat RN - 08/19/2024 8:44 AM EDT Problem: Adult Inpatient Plan of Care Goal: Plan of Care Review Outcome: Progressing Goal: Patient-Specific Goal (Individualized) Outcome: Progressing Problem: Stroke, Intracerebral Hemorrhage Goal: Optimal Coping Outcome: Progressing * Plan of Care - Valerie Marques RN - 08/18/2024 7:39 PM EDT Problem: Adult Inpatient Plan of Care Goal: Plan of Care Review Outcome: Progressing Goal: Patient-Specific Goal (Individualized) Outcome: Progressing Goal: Absence of Hospital-Acquired Illness or Injury Outcome: Progressing Goal: Optimal Comfort and Wellbeing Outcome: Progressing Goal: Readiness for Transition of Care Outcome: Progressing * Plan of Care - Joseluis Beverly OT - 08/18/2024 2:33 PM EDT Problem: OT - ADLs Goal: Grooming - Patient will complete grooming in standing with supervision for improved ability to safely complete ADLs. Outcome: Ongoing * Plan of Care - Arvin Guillaume MD - 08/18/2024 1:28 PM EDT Neurosurgery Update: 69 y.o. female w/ a phx of Crohn's, L parietal craniotomy for meningioma resection (2009) currentlyon ASA for CAD, LD 6/10 AM who presents as a hemorrhagic stroke alert, ICH score of 0 and HCT demonstrating a 2.4 x 1.9 x 2.5 cm L parietal ICH w/o MLS or ME. She is intact on exam except intermittent numbness on the R side ranging from the chin to the lateral thigh. NIH 1. MRI brain completed and reviewed confirming no underlying contrast enhancement. Plan: -- Neurosurgery signing off, no follow-up recommended at this time Arvin Guillaume MD, Neurosurgery NS2 ([id number]) In response to query: Resolved * Plan of Care - Idalia Alvarez, PT - 08/18/2024 8:14 AM EDT Problem: PT - General Goals Goal: Supine <-> Sit Transfers - Patient will perform supine to/from sit transfers with supervision and without use of hospital bed features in order to improve functional mobility and safety. Outcome: Ongoing Goal: Sit <-> Stand Transfers - Patient will perform sit to/from stand transfers with supervision and without an assistive device in order to improve functional mobility and safety. Outcome: Ongoing Goal: Standing Endurance/Balance - Patient will perform standing balance tasks for 8 min with supervision and without an assistive device Outcome: Ongoing Goal: Ambulation - Patient will ambulate 150 feet with supervision and without an assistive device to improve ability to safely navigate home and community. Outcome: Ongoing Goal: Stairs - Patient will ascend/descend 3 stairs with supervision, without an assistive device, and single railing(s) to improve ability to safely navigate home and community. Outcome: Ongoing * Nursing Notes - Jessica Rincon RN - 08/18/2024 3:01 AM EDT Assessment Patient seen and evaluated for peripheral IV insertion using ultrasound guidance. ID band present, allergies verified and patient/nurse questioned of limb precautions. Skin integrity within normal limits at time of insertion. No evidence of ecchymosis, infiltration, hematoma, or any condition that would prevent safe insertion of a peripheral IV with ultrasound. Procedure explained to patient. Education Patient/family informed to notify nurse of any complications including pain, redness, swelling, or leakage post insertion. Insertion: Ultrasound guided PIV: 20 gauge 1.75 length Nexiva catheter inserted into left cephalic site. Peripheral IV placed per aseptic technique under ultrasound guidance on 1 attempt(s). [] Obtained labs. (labeled labs taken to [facility] in biohazard bag ) [X] Call light in reach. [X] Bed low and locked position. [X] Tray table within reach. [X] Physician and rehabilitation supervisor notified of the above Reassessment: Positive blood return noted, flushes easily, no edema, or leakage noted. Stabilization of device Statlock used to secure IV, occlusive dressing applied. Denies pain at site. Patient tolerated procedure well. Site dated and initialed. Education: Patient/Family informed to notify nurse of any complications including pain, redness, swelling, or leakage post insertion. Extra insertion Note if applicable: Jessica Rincon RN * Nursing Notes - Jessica Rincon RN - 08/18/2024 1:36 AM EDT On admission to B10E, from ED a dual RN initial assessment of skin condition was performed by WON Pardo and Lavonne Ghosh RN. Skin Assessment: Skin within defined limits:Yes Vincent Score: 19 LDA Added:No Jessica Rincon RN documented in this encounter[place]06-[place]-2025 History of Present illness Narrative* Guy Lambert MD - 08/29/2024 7:18 AM EDT Subjective NAEON, plan for discharge today Objective Temp: [98.1 F (36.7 C)-98.2 F (36.8 C)] 98.1 F (36.7 C) Pulse (Heart Rate): [69-72] 69 Resp Rate: [16-18] 18 BP: (103-119)/(56-70) 114/56 O2 Sat (%): [93 %-94 %] 94 % PHYSICAL EXAM -- AOx3 -- FCx4 -- PERRL, EOMI -- FS, TM -- RUE: 4+/5 -- RLE: 4+/5 -- 5/5 on left -- Incision c/d/i WBC/Hgb/Hct/Plts: 9.05/13.4/42.4/192 (08/29 2328) Na/K+/Phos/Mg/Ca: 135/3.6/3.7/1.7/-- (08/29 0001) Bun/Creat/Cl/CO2/Glucose: 10/0.54/98/26/105 (08/29 2328) Lab Results Component Value Date INR 0.9 08/20/2024 INR 1.0 08/19/2024 INR 1.1 08/18/2024 PT 12.5 08/20/2024 PT 13.2 08/19/2024 PT 13.9 08/18/2024 Intake/Output Summary (Last 24 hours) at 08/29/2024 0718 Last data filed at 08/29/2024 0700 Gross per 24 hour Intake 500 ml Output 1050 ml Net -550 ml Medications augmented betamethasone dipropionate 1 Application Topical BID buPROPion 150 mg Oral QAM clobetasol 1 Application Topical BID Clotrimazole 1 Application Topical BID enoxaparin 40 mg Subcutaneous Daily Gabapentin 400 mg Oral TID [Held by provider] hydroCHLOROthiazide 25 mg Oral Daily Latanoprost 1 drop Both Eyes QHS levETIRAcetam 1,000 mg Oral Q12H Pantoprazole 40 mg Oral Daily Primidone 50 mg Oral 4x daily rOPINIRole 0.25 mg Oral QAM rOPINIRole 0.5 mg Oral 2 times per day Senna 8.6 mg Oral Daily Or Senna 8.6 mg Per NG tube Daily Sotalol 80 mg Oral Q12HNS Timolol maleate 1 drop Left Eye Daily Assessment/Plan 69 y.o. female w/ a phx of Crohn's, L parietal craniotomy for meningioma resection (2009) currentlyon ASA for CAD, LD 610 AM who presents as a hemorrhagic stroke alert, ICH score of 0 and HCT demonstrating a 2.4 x 1.9 x 2.5 cm L parietal ICH w/o MLS or ME. She is intact on exam except intermittent numbness on the R side ranging from the chin to the lateral thigh. NIH 1. MRI brain completed and reviewed confirming no underlying contrast enhancement. 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 Hypocalcemia - Continue to monitor and replete. Obesity, class I Body mass index is 33.06 kg/m . - Follow with PCP for dietary and lifestyle modifications. Wound Documentation Wound Surgical Sheath Site 08/19/24 1344 Right Femoral (Active) Date First Assessed/Time First Assessed: 08/19/24 1344 Primary Wound Type: Surgical Secondary WoundType - Surgical: Sheath Site Incision Closure/Dressing: Gauze;Tegaderm Wound Location Orientation: Right Location: Femoral Wound Surgical 08/20/24 1046 Posterior;Upper Head (Active) Date First Assessed/Time First Assessed: 08/20/24 1046 Primary Wound Type: Surgical Present on Original Admission: No Wound Location Orientation: Posterior;Upper Location: Head Wound Surgical Sheath Site 08/20/24 1314 Left Femoral (Active) Date First Assessed/Time First Assessed: 08/20/24 1314 Primary Wound Type: Surgical Secondary WoundType - Surgical: Sheath Site Present on Original Admission: No Incision Closure/Dressing: (c) Tegaderm;Gauze Wound Location Orientation: Left Lo... Wound Irritant Contact Dermatitis Fungal Dermatitis 08/20/24 1400 Buttocks (Active) Date First Assessed/Time First Assessed: 08/20/24 1400 Primary Wound Type: Irritant Contact Dermatitis Secondary Wound Type - Irritant Contact Dermatitis: Fungal Dermatitis Location: Buttocks Any conditions listed below are present on admission unless otherwise specified. . * Guy Lambert MD - 08/28/2024 11:23 AM EDT Subjective NAEON, eager to discharge Objective Temp: [98 F (36.7 C)-98.2 F (36.8 C)] 98.1 F (36.7 C) Pulse (Heart Rate): [69-71] 69 Resp Rate: [16] 16 BP: (106-119)/(52-67) 119/56 O2 Sat (%): [92 %-94 %] 94 % PHYSICAL EXAM -- AOx3 -- FCx4 -- PERRL, EOMI -- FS, TM -- RUE: 4+/5 -- RLE: 4+/5 -- 5/5 on left -- Incision c/d/i WBC/Hgb/Hct/Plts: 8.35/13.5/43.0/195 (08/28 20) Na/K+/Phos/Mg/Ca: 137/3.8/3.9/1.7/-- (08/28 20) Bun/Creat/Cl/CO2/Glucose: 13/0.60/101/25/115 (06/21 0021) Lab Results Component Value Date INR 0.9 08/20/2024 INR 1.0 08/19/2024 INR 1.1 08/18/2024 PT 12.5 08/20/2024 PT 13.2 08/19/2024 PT 13.9 08/18/2024 Intake/Output Summary (Last 24 hours) at 08/28/2024 1123 Last data filed at 08/28/2024 1029 Gross per 24 hour Intake -- Output 800 ml Net -800 ml Medications augmented betamethasone dipropionate 1 Application Topical BID buPROPion 150 mg Oral QAM clobetasol 1 Application Topical BID Clotrimazole 1 Application Topical BID enoxaparin 40 mg Subcutaneous Daily Gabapentin 400 mg Oral TID [Held by provider] hydroCHLOROthiazide 25 mg Oral Daily Latanoprost 1 drop Both Eyes QHS levETIRAcetam 1,000 mg Oral Q12H Pantoprazole 40 mg Oral Daily Primidone 50 mg Oral 4x daily rOPINIRole 0.25 mg Oral QAM rOPINIRole 0.5 mg Oral 2 times per day Senna 8.6 mg Oral Daily Or Senna 8.6 mg Per NG tube Daily Sotalol 80 mg Oral Q12HNS Timolol maleate 1 drop Left Eye Daily Assessment/Plan 69 y.o. female w/ a phx of Crohn's, L parietal craniotomy for meningioma resection (2009) currentlyon ASA for CAD, LD 6/10 AM who presents as a hemorrhagic stroke alert, ICH score of 0 and HCT demonstrating a 2.4 x 1.9 x 2.5 cm L parietal ICH w/o MLS or ME. She is intact on exam except intermittent numbness on the R side ranging from the chin to the lateral thigh. NIH 1. MRI brain completed and reviewed confirming no underlying contrast enhancement. 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 Obesity, class I Body mass index is 33.06 kg/m . - Follow with PCP for dietary and lifestyle modifications. Wound Documentation Wound Surgical Sheath Site 08/19/24 1344 Right Femoral (Active) Date First Assessed/Time First Assessed: 08/19/24 1344 Primary Wound Type: Surgical Secondary WoundType - Surgical: Sheath Site Incision Closure/Dressing: Gauze;Tegaderm Wound Location Orientation: Right Location: Femoral Wound Surgical 08/20/24 1046 Posterior;Upper Head (Active) Date First Assessed/Time First Assessed: 08/20/24 1046 Primary Wound Type: Surgical Present on Original Admission: No Wound Location Orientation: Posterior;Upper Location: Head Wound Surgical Sheath Site 08/20/24 1314 Left Femoral (Active) Date First Assessed/Time First Assessed: 08/20/24 1314 Primary Wound Type: Surgical Secondary WoundType - Surgical: Sheath Site Present on Original Admission: No Incision Closure/Dressing: (c) Tegaderm;Gauze Wound Location Orientation: Left Lo... Wound Irritant Contact Dermatitis Fungal Dermatitis 08/20/24 1400 Buttocks (Active) Date First Assessed/Time First Assessed: 08/20/24 1400 Primary Wound Type: Irritant Contact Dermatitis Secondary Wound Type - Irritant Contact Dermatitis: Fungal Dermatitis Location: Buttocks Any conditions listed below are present on admission unless otherwise specified. . * Adela Zaldivar OT - 08/27/2024 2:21 PM EDT Acute Occupational Therapy Treatment Prior Gross Functional Mobility: independent Current AM-PAC score(s): CURRENT AM-PAC Activity Raw Score: 13 Based on the above AM-PAC score(s), and OT clinical judgment, discharge destination recommendation is: Inpatient Rehab Facility Barriers to discharge home: Patient needs assistance with medication management, Patient needs assistance with ADLs, Patient needs assistance with IADLs (see note below) Supporting Factors (would benefit from skilled therapy services): Impaired self- care abilities, Decreased endurance Mobility equipment available at home: straight cane, rollator ADL equipment available at home: shower chair, grab bars Equipment recommendations for discharge: none Equipment issued: none Current therapy frequency recommendation(s) in acute: 5 times a week Activity Recommendations for outside of rehab session: x2 person pivot to L Precautions and Weightbearing Status: OT Existing Precautions/Restrictions: fall No critical lines at this time (external urine collection) Patient Safety Communication Prior to Visit: Nursing Subjective: Look, I can movemy (left) leg Pain: General Pain Documentation (Adult, OB, Peds) Presence of Pain: denies pain/discomfort Presence of Pain Score (Auto-calculated): 0 Objective/Observation: Vitals/Vitals Responses to Treatment: stable, no SOB noted O2 Device: room air Vision Screen Currently wearing corrective lenses: Reading only Speech Speech: no gross deficits noted Hearing Hearing: no gross deficits noted Cognition Overall Cognitive Status: Within Functional Limits Arousal/Alertness: Appropriate responses to stimuli ADL Assessment/Intervention: ADLs: Eating Assistance: Grooming Assistance: Set up supervision Grooming Location: edge of bed Grooming Deficit: Oral care, Wash/dry face, Denture care Bathing Assistance: UE Dressing Assistance: LE Dressing Assistance: Maximal LE Dressing Location: edge of bed LE Dressing Deficit: Don/doff R sock, Don/doff L sock Toilet Assistance: Toileting Intervention/Details: purwick in place Extremity Assessments: See OT Evaluation flowsheet for Extremity Measurement updates. Balance: Sitting Balance Static Sitting-Level of Assistance: Supervision Dynamic Sitting-Level of Assistance: Contact guard Standing Balance Static Standing-Level of Assistance: Modified independent Dynamic Standing-Level of Assistance: Maximum assistance Standing-Balance Support: Gait belt, Hand-held assist Skin and Edema: Mobility Assessment/Intervention: Supine to Sit Mobility [place] Level: Supine->Sit: minimum assist (75% patient effort) Physical Assist: Supine->Sit: (1person) Bed Features/Set-up: Supine->Sit: Head of bed elevated, Use of bed rail Skilled Intervention/Details: Supine->Sit: assist for R LE Transfer Assessment/Intervention: Sit to Stand Transfer [place] Level: Sit->Stand: moderate assist (50% patient effort) Physical Assist: Sit->Stand: (1 person) Assistive Device: Sit->Stand: gait belt, hand held assist Skilled Rationale: Positioning, Hand placement, Patellar block Stand to Sit Transfer [place] Level: Stand->Sit: moderate assist (50% patient effort) Physical Assist: Stand->Sit: (1 person) Assistive Device: Stand->Sit: gait belt, hand held assist, armed chair Skilled Rationale: Positioning, Hand placement, Patellar block Bed-Chair Transfer [place] Level: Bed<->Chair: moderate assist (50% patient effort) Physical Assist: Bed<->Chair: (1 person) Assistive Device: Bed<->Chair: gait belt, armed chair, hand held assist Skilled Rationale: Arm in arm, Patellar block Skilled Intervention/Details: Bed<->Chair: pivot to L, assist to move L LE toward chair Functional Mobility: Functional Mobility [place] Level: Functional Mobility/Gait: moderate assist (50% patient effort) Assistive Device: Functional Mobility/Gait: gait belt, hand held assist Functional Mobility Distance: Distance needed to access BSC/chair Outcome Score(s): CURRENT [facility] Daily Activity Inpatient Short Form Putting on/Taking Off Lower Body Clothin - A Lot of Assistance Bathin - A Lot of Assistance Toiletin - Total Assistance Putting on/Taking Off Upper Body Clothin - A Lot of Assistance Groomin - A Little Assistance Eatin - A Little Assistance CURRENT [facility] Activity Raw Score: 13 CURRENT -[facility] Activity Functional Limitation/Modifier: 63.03% Currently Impaired in Daily Activity- CL Interventions: Intervention 1 Intervention Name: fine motor ther ex Sets/Reps/Duration: 1 set of 10 reps Details: pt able to oppose thumb to digits 3 and 2, almost able to reach 4th digits Intervention 2 Intervention Name: education on proprioception deficits and use of vision and repetition to accomodate for deficits Details: returned demonstration, verbalized understanding, able to clap both hands together after practice Assessment & Plan: Amanda Reyna is a 69 y/o female admitted for hemorrhagic stroke with PMH notable for Crohn's, L parietal craniotomy for meningioma resection . Pt participated in direct skilled OT services toaddress deficits which limit his ability to participate in self care tasks of grooming and dressingat bed side with addition of balance and endurance during these tasks at EOB and during transfer tochair to increase functional positioning and independence. Pt presents to OT at this time with improved/increased balance and use of R side during self care tasks with resulting good progress toward established goals as listed below, specifically the transfer to BSC goal. Pt con't to demonstrate dec reased strength, balance, and endurance which limits ability to complete ADLs and care for self. Ptwould con't to benefit from direct skilled OT services to address these deficits and needs while inthe hospital and s/p disch with 24 hr supervision and assistance. Patient Instruction/Education this session: Learners: Patient Education provided: Activity outside of therapy, Compensatory strategies, Discharge recommendations, Energy conservation strategies, Fall precautions, Functional transfers, Gait belt use, Plan of care, Positioning, Role of this discipline Teaching method: Audiovisual, Verbal Education/Instruction Learner response: Applies knowledge, States/Identifies/Teaches back, Needs review Learning considerations: No barriers/ready to learn Stroke education: Role of rehabilitation discipline, Recovery process Plan for next session: bilateral hand integration into dressing and transfers for toileting Acute OT Goals Plan of Care by Adela Zaldivar OT at 08/27/2024 2:14 PM Version 1 of 1 Problem: OT - ADLs Goal: Grooming - Patient will complete grooming edge of bed with minimal assistance for improved ability to safely complete ADLs. Outcome: Met Note: To brush dentures Problem: OT - Transfers Goal: Transfers Toilet/ Bedside Commode - Patient will transfer to/from toilet/bedside commode withmoderate assistance for improved ability to safely complete ADLs. Outcome: Met Problem: OT - Strength/ROM Goal: Neuro Re-education - Patient will participate in neuro re-ed of right upper extremity with minimal assistance and 75% accuracy for improved functional use in ADLs. Outcome: Progressing Goal: Fine Motor Coordination - Patient will participate in fine motor coordination functional taskcompleting 10/10 reps with minimal assistance for improved fine motor strength and coordination required to complete self-care tasks. Outcome: Progressing OT treatment consisted of the following to work and progress towards the above goal(s): OT Evaluation and Treatment Time Self Care/Home Management (ADLs) Time Entry: 32 Treating Therapist: Adela Zaldivar OT Additional Details: OT Co-Eval/Treatment Information Co-evaluation/co-treatment performed?: No simultaneous skilled care performed Assisted by during session: none PPE used during patient interaction: facemask, gloves Patient location at end of session: chair Alarms on at end of session: chair alarm, RN aware Needs in reach. Time In: 1338 Time Out: 1410 Total Visit Time: 32 minutes Total Treatment Time (skilled, billable minutes): 32 minutes Upon discontinuation of Acute Care Occupational Therapy Services or patient discharge from the hospital this note represents the current Occupational Therapy Discharge Summary. Adela Zaldivar OTD MS OTR/L License [id number] * Jessica Sanchez RN - 08/27/2024 2:05 PM EDT Images from the original note were not included. Final Discharge Planning and Transportation Final Discharge Planning Discharge Disposition: Inpatient Rehab Facility Services at Discharge: Occupational Therapy, Physical Therapy, Custodial Selected Continued Care - Admitted Since 08/17/2024 Destination Coordination complete. Service Provider Services Address Phone Fax Patient Preferred [facility] Inpatient Rehabilitation [address] [address] [phone] -- Community Agency Name(s) For Handoff: [facility] IPR Name For Handoff: Nurse to Nurse is [phone]. Phone For Handoff: Fax For Handoff: [phone] Nurse will need to [facility] LEXY MAXWELL summary and AMARA to facility . Plan Follow UP. NSGY 09/02 Transportation Medcare 10:00 AM On Tuesday 08/29 CM had conversation with patient/caregiver related to specialty care follow-up. 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 -- RLE: 4/5 HF, 4+/5 KE/DF/PF -- 5/5 on left -- Incision c/d/i WBC/Hgb/Hct/Plts: 6.79/13.5/43.0/189 (08/27 101) Na/K+/Phos/Mg/Ca: 136/3.9/4.2/1.9/-- (08/27 101) Bun/Creat/Cl/CO2/Glucose: 11/0.54/101/26/118 (08/27 101) Lab Results Component Value Date INR 0.9 08/20/2024 INR 1.0 08/19/2024 INR 1.1 08/18/2024 PT 12.5 08/20/2024 PT 13.2 08/19/2024 PT 13.9 08/18/2024 Intake/Output Summary (Last 24 hours) at 08/27/2024 0638 Last data filed at 08/27/2024 0600 Gross per 24 hour Intake 0 ml Output 1100 ml Net -1100 ml Medications augmented betamethasone dipropionate 1 Application Topical BID buPROPion 150 mg Oral QAM cephALEXin 250 mg Oral Nightly clobetasol 1 Application Topical BID Clotrimazole 1 Application Topical BID enoxaparin 40 mg Subcutaneous Daily Gabapentin 400 mg Oral TID [Held by provider] hydroCHLOROthiazide 25 mg Oral Daily Latanoprost 1 drop Both Eyes QHS levETIRAcetam 1,000 mg Oral Q12H Pantoprazole 40 mg Oral Daily Primidone 50 mg Oral 4x daily rOPINIRole 0.25 mg Oral QAM rOPINIRole 0.5 mg Oral 2 times per day Senna 8.6 mg Oral Daily Or Senna 8.6 mg Per NG tube Daily Sotalol 80 mg Oral Q12HNS Timolol maleate 1 drop Left Eye Daily Assessment/Plan 69 y.o. female w/ a phx of Crohn's, L parietal craniotomy for meningioma resection (2009) currentlyon ASA for CAD, LD 6/10 AM who presents as a hemorrhagic stroke alert, ICH score of 0 and HCT demonstrating a 2.4 x 1.9 x 2.5 cm L parietal ICH w/o MLS or ME. She is intact on exam except intermittent numbness on the R side ranging from the chin to the lateral thigh. NIH 1. MRI brain completed and reviewed confirming no underlying contrast enhancement. Now s/p DCA 08/19 showing a left dural AVF of distal MCA branch to cortical vein draining to sagittal sinus Now s/p L parietal crani for resection of SM II AVM with a negative intraoperative angiogram following the resection 08/20 Neuro: -- Continue neuro checks -- Advance as tolerated -- Repeat CTH completed overnight - appears grossly stable pending final radiology read -- Keppra CVS: -- SBP<160 Respiratory: -- O2 as needed, IS FEN/GI: -- ADAT ID: -- Bactrim for UTI Prophy: -- SCDs, SQ DVT prophy Dispo: medically clear for IPR discharge pending CT read Please page NS2 ([id number]) with questions Complexity. Hypocalcemia - Continue to monitor and replete. Obesity, class I Body mass index is 33.06 kg/m . - Follow with PCP for dietary and lifestyle modifications. Wound Documentation Wound Surgical Sheath Site 08/19/24 1344 Right Femoral (Active) Date First Assessed/Time First Assessed: 08/19/24 1344 Primary Wound Type: Surgical Secondary WoundType - Surgical: Sheath Site Incision Closure/Dressing: Gauze;Tegaderm Wound Location Orientation: Right Location: Femoral Wound Surgical 08/20/24 1046 Posterior;Upper Head (Active) Date First Assessed/Time First Assessed: 08/20/24 1046 Primary Wound Type: Surgical Present on Original Admission: No Wound Location Orientation: Posterior;Upper Location: Head Wound Surgical Sheath Site 08/20/24 1314 Left Femoral (Active) Date First Assessed/Time First Assessed: 08/20/24 1314 Primary Wound Type: Surgical Secondary WoundType - Surgical: Sheath Site Present on Original Admission: No Incision Closure/Dressing: (c) Tegaderm;Gauze Wound Location Orientation: Left Lo... Wound Pressure Injury Suspected 08/20/24 1400 Buttocks (Active) Date First Assessed/Time First Assessed: 08/20/24 1400 Primary Wound Type: Pressure Injury Secondary Wound Type - Pressure Injury: Suspected Location: Buttocks Any conditions listed below are present on admission unless otherwise specified. . 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 -- RLE: 4/5 throughout except 4+/5 distally -- Incision c/d/i WBC/Hgb/Hct/Plts: 7.77/14.0/44.9/211 (08/26 38) Na/K+/Phos/Mg/Ca: 138/4.0/4.4/1.9/-- (08/26 38) Bun/Creat/Cl/CO2/Glucose: 14/0.56/101/27/101 (08/26 38) Lab Results Component Value Date INR 0.9 08/20/2024 INR 1.0 08/19/2024 INR 1.1 08/18/2024 PT 12.5 08/20/2024 PT 13.2 08/19/2024 PT 13.9 08/18/2024 Intake/Output Summary (Last 24 hours) at 08/26/2024 0507 Last data filed at 08/26/2024 0146 Gross per 24 hour Intake 240 ml Output 800 ml Net -560 ml Medications augmented betamethasone dipropionate 1 Application Topical BID buPROPion 150 mg Oral QAM cephALEXin 250 mg Oral Nightly clobetasol 1 Application Topical BID Clotrimazole 1 Application Topical BID enoxaparin 40 mg Subcutaneous Daily Gabapentin 400 mg Oral TID [Held by provider] hydroCHLOROthiazide 25 mg Oral Daily Latanoprost 1 drop Both Eyes QHS levETIRAcetam 1,000 mg Oral Q12H Pantoprazole 40 mg Oral Daily Primidone 50 mg Oral 4x daily rOPINIRole 0.25 mg Oral QAM rOPINIRole 0.5 mg Oral 2 times per day Senna 8.6 mg Oral Daily Or Senna 8.6 mg Per NG tube Daily Sotalol 80 mg Oral Q12HNS Timolol maleate 1 drop Left Eye Daily Assessment/Plan 69 y.o. female w/ a phx of Crohn's, L parietal craniotomy for meningioma resection (2009) currentlyon ASA for CAD, LD 6/10 AM who presents as a hemorrhagic stroke alert, ICH score of 0 and HCT demonstrating a 2.4 x 1.9 x 2.5 cm L parietal ICH w/o MLS or ME. She is intact on exam except intermittent numbness on the R side ranging from the chin to the lateral thigh. NIH 1. MRI brain completed and reviewed confirming no underlying contrast enhancement. 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 Hypocalcemia - Continue to monitor and replete. Obesity, class I Body mass index is 33.06 kg/m . - Follow with PCP for dietary and lifestyle modifications. Wound Documentation Wound Surgical Sheath Site 08/19/24 1344 Right Femoral (Active) Date First Assessed/Time First Assessed: 08/19/24 1344 Primary Wound Type: Surgical Secondary WoundType - Surgical: Sheath Site Incision Closure/Dressing: Gauze;Tegaderm Wound Location Orientation: Right Location: Femoral Wound Surgical 08/20/24 1046 Posterior;Upper Head (Active) Date First Assessed/Time First Assessed: 08/20/24 1046 Primary Wound Type: Surgical Present on Original Admission: No Wound Location Orientation: Posterior;Upper Location: Head Wound Surgical Sheath Site 08/20/24 1314 Left Femoral (Active) Date First Assessed/Time First Assessed: 08/20/24 1314 Primary Wound Type: Surgical Secondary WoundType - Surgical: Sheath Site Present on Original Admission: No Incision Closure/Dressing: (c) Tegaderm;Gauze Wound Location Orientation: Left Lo... Wound Pressure Injury Suspected 08/20/24 1400 Buttocks (Active) Date First Assessed/Time First Assessed: 08/20/24 1400 Primary Wound Type: Pressure Injury Secondary Wound Type - Pressure Injury: Suspected Location: Buttocks Any conditions listed below are present on admission unless otherwise specified. . * Jammie Cope - 08/25/2024 11:38 AM EDT Acute Occupational Therapy Treatment Prior Gross Functional Mobility: independent Current AM-PAC score(s): CURRENT AM-PAC Activity Raw Score: 13 Based on the above AM-PAC score(s), and OT clinical judgment, discharge destination recommendation is: Inpatient Rehab Facility Barriers to discharge home: Patient needs assistance with medication management, Patient needs assistance with ADLs, Patient needs assistance with IADLs (see note below) Supporting Factors (would benefit from skilled therapy services): Impaired self- care abilities, Decreased endurance Mobility equipment available at home: straight cane, rollator ADL equipment available at home: shower chair, grab bars Equipment recommendations for discharge: none Equipment issued: none Current therapy frequency recommendation(s) in acute: 5 times a week Activity Recommendations for outside of rehab session: x2 person pivot to L Precautions and Weightbearing Status: OT Existing Precautions/Restrictions: fall Telemetry Patient Safety Communication Prior to Visit: Nursing Subjective: Agreeable to therapy Pain: General Pain Documentation (Adult, OB, Peds) Presence of Pain: denies pain/discomfort Presence of Pain Score (Auto-calculated): 0 DVPRS (Defense and Veterans Pain Rating Scale) DVPRS: Rest: 0- no pain DVPRS: Activity: 0- no pain Objective/Observation: Vitals/Vitals Responses to Treatment: VSS Cognition Overall Cognitive Status: Within Functional Limits Arousal/Alertness: Appropriate responses to stimuli Orientation Level: Oriented X4 Following Commands: Follows all commands and directions without difficulty Safety Judgment: Good awareness of safety precautions Awareness of Errors: Good awareness of errors made Deficits: Fully aware of deficits Attention Span: Appears intact Memory: Appears intact Problem Solving: Able to problem solve independently ADL Assessment/Intervention: ADLs: ADL Assessment: Grooming Deficit ADL Anticipated Performance (ADLs not directly observed this session): Eating, Bathing, UE Dressing, LE Dressing, Toileting Eating Assistance: Grooming Assistance: Moderate Grooming Location: standing at sink Grooming Deficit: Oral care, Wash/dry face, Denture care Grooming Skilled Rationale (Verbal/Tactile/Visual/Demonstration): Technique of activity, Setup Grooming Intervention/Details: Completed face washing and denture care standing at sink with LUE support on sink, completed oral care standing with set up completed in sitting, pt used RUE for all grooming, pt required frequent cues for balance and posture. Bathing Assistance: UE Dressing Assistance: LE Dressing Assistance: Toilet Assistance: Extremity Assessments: See OT Evaluation flowsheet for Extremity Measurement updates. Balance: Sitting Balance Static Sitting-Level of Assistance: Contact guard Dynamic Sitting-Level of Assistance: Contact guard Skilled Rationale: Technique of activity Sitting Balance Skilled Intervention/Details: (UE support on bed) Standing Balance Static Standing-Level of Assistance: (Min to Mod x2) Dynamic Standing-Level of Assistance: Moderate assistance, 2-person assist Standing-Balance Support: Gait belt Skilled Rationale: Hand placement, Verbal cues, Technique of activity Standing Balance Skilled Intervention/Details: x4 throughout session bilateral knee buckling, multimodal cues for upright posture Skin and Edema: Mobility Assessment/Intervention: Supine to Sit Mobility [place] Level: Supine->Sit: moderate assist (50% patient effort) Bed Features/Set-up: Supine->Sit: Head of bed elevated Skilled Rationale: Hand placement Skilled Intervention/Details: Supine->Sit: (increased time, assist with scooting to EOB) Transfer Assessment/Intervention: Sit to Stand Transfer [place] Level: Sit->Stand: moderate assist (50% patient effort) Physical Assist: Sit->Stand: 2 person assist Assistive Device: Sit->Stand: gait belt, hand held assist Skilled Rationale: Hand placement, Verbal cues, Technique of activity Skilled Intervention/Details: Sit->Stand: (completed x4 stands throughout session with Mod A x2,cues for sequencing, bilateral knee buckling, max cues for upright posture) Bed-Chair Transfer [place] Level: Bed<->Chair: moderate assist (50% patient effort) Assistive Device: Bed<->Chair: gait belt, armed chair Skilled Rationale: Verbal cues Skilled Intervention/Details: Bed<->Chair: (pivot to the L to recliner, step by step cues) Functional Mobility: Outcome Score(s): CURRENT [facility] Daily Activity Inpatient Short Form Putting on/Taking Off Lower Body Clothin - A Lot of Assistance Bathin - A Lot of Assistance Toiletin - Total Assistance Putting on/Taking Off Upper Body Clothin - A Lot of Assistance Groomin - A Little Assistance Eatin - A Little Assistance CURRENT [facility] Activity Raw Score: 13 CURRENT [facility] Activity Functional Limitation/Modifier: 63.03% Currently Impaired in Daily Activity- CL Interventions: Assessment & Plan: Pt is making good progress towards goals. Pt completed ADLs with RUE at sink. Pt's bed mobility improved to Mod A and sit to stand improved to Mod x2. Pt continues to be limited by balance, endurance, strength, and R side weakness. Pt continues to benefit from skilled OT to address ADLs, RUE NMR, balance, and endurance. Patient Instruction/Education this session: Learners: Patient Education provided: Role of this discipline Teaching method: Verbal Education/Instruction Learner response: Applies knowledge Learning preferences: Auditory Learning considerations: No barriers/ready to learn Stroke education: Role of rehabilitation discipline Plan for next session: (ADLs at sink, balance, endurance) Acute OT Goals Plan of Care by Joseluis Beverly OT at 08/25/2024 11:30 AM Version 1 of 1 Problem: OT - ADLs Goal: Grooming - Patient will complete grooming edge of bed with minimal assistance for improved ability to safely complete ADLs. Outcome: Progressing Problem: OT - Transfers Goal: Transfers Toilet/ Bedside Commode - Patient will transfer to/from toilet/bedside commode withmoderate assistance for improved ability to safely complete ADLs. Outcome: Progressing Problem: OT - Strength/ROM Goal: Neuro Re-education - Patient will participate in neuro re-ed of right upper extremity with minimal assistance and 75% accuracy for improved functional use in ADLs. Outcome: Progressing Goal: Fine Motor Coordination - Patient will participate in fine motor coordination functional taskcompleting 10/10 reps with minimal assistance for improved fine motor strength and coordination required to complete self-care tasks. Outcome: Progressing OT treatment consisted of the following to work and progress towards the above goal(s): OT Evaluation and Treatment Time Self Care/Home Management (ADLs) Time Entry: 8 Therapeutic Activity Time Entry: 16 Treating Therapist: Jammie Cope Additional Details: OT Co-Eval/Treatment Information Co-evaluation/co-treatment performed?: Yes, simultaneous billable skilled care was necessary due tomedical complexity and functional deficits Other discipline: PT Rationale for need to co-eval/treat: cognition, coordination, postural control Co-treatment goal focus: balance, mobility, transfer, endurance, self-care, strength PPE used during patient interaction: gloves Patient location at end of session: chair Alarms on at end of session: chair alarm Needs in reach. Time In: 1114 Time Out: 1138 Total Visit Time: 24 minutes Total Treatment Time (skilled, billable minutes): 24 minutes Upon discontinuation of Acute Care Occupational Therapy Services or patient discharge from the hospital this note represents the current Occupational Therapy Discharge Summary. Cosigned by Joseluis Beverly OT at 08/25/2024 1:53 PM EDT Associated attestation - Joseluis Beverly OT - 08/25/2024 1:53 PM EDT I, Joseluis Beverly OT, provided direct guidance in the room during this patient care session. I attest that all documentation reflects accurate skilled clinical decisions and judgements. This note was reviewed and edited as needed to better reflect the patient's clinical status and thetreatment plan Read and Co-signed by: Joseluis Beverly OTR/L License #: [id number] Pager: [phone] Upon discontinuation of Acute Care Occupational Therapy Services or patient discharge from the hospital this note represents the current Occupational Therapy Discharge Summary. * Idalia Alvarez, PT - 08/25/2024 11:14 AM EDT Acute Physical Therapy Treatment Prior Gross Functional Mobility: independent Current AM-PAC score(s): CURRENT AM-PAC Mobility Raw Score: 10 Based on the above AM-PAC score(s) and PT clinical judgment, patient is a good candidate for discharge to Inpatient Rehab Facility Supporting Factors (would benefit from skilled therapy services): Recent decline in functional mobility Mobility equipment available at home: straight cane, rollator ADL equipment available at home: shower chair, grab bars Equipment needed for discharge: to be determined Current therapy frequency recommendation in acute: PT Therapy Frequency: 5 times a week Activity Recommendations for outside of rehab session: 2 person stand pivot with gait belt to the LEFT Precautions and Weightbearing Status: Existing Precautions/Restrictions: fall Telemetry Patient Safety Communication Prior to Visit: Nursing Subjective: Pt agreed to PT Pain: General Pain Documentation (Adult, OB, Peds) Presence of Pain: reports pain/discomfort Pain Location: head DVPRS (Defense and Veterans Pain Rating Scale) DVPRS: Rest: 8- severe pain DVPRS: Activity: 8- severe pain Objective/Observation: Vitals/Vitals Responses to Treatment: no adverse response to PT O2 Device: room air Cognition Overall Cognitive Status: Within Functional Limits Arousal/Alertness: Appropriate responses to stimuli Orientation Level: Oriented X4 Following Commands: Follows all commands and directions without difficulty Safety Judgment: Good awareness of safety precautions Awareness of Errors: Good awareness of errors made Extremity Assessments: See PT Evaluation flowsheet for Extremity Measurement updates. Skin and Edema: Balance: Sitting Balance Static Sitting-Level of Assistance: Contact guard Skilled Rationale: Verbal cues, Tactile cues, Hand placement, Full extension to upright positioning/posture, Technique of activity Sitting Balance Skilled Intervention/Details: static sitting balance on EOB with verbal/tactile cues for upright posture. Standing Balance Static Standing-Level of Assistance: (min to mod A x 2) Standing-Balance Support: Gait belt Skilled Rationale: Verbal cues, Tactile cues, Hand placement, Full extension to upright positioning/posture, Finding/maintaining midline positioning, Technique of activity Standing Balance Skilled Intervention/Details: x4 trials throughout session (x2 were in front of mirror for visual feedback). Verbal/tactile cues for upright posture, correction of left lean, midlineawareness, and blocking right knee. Pt able to initaite correction of left lean and flexed posture after cues but continued to require min to mod A x 2. Mobility Assessment/Intervention: Supine to Sit Mobility [place] Level: Supine->Sit: moderate assist (50% patient effort) Bed Features/Set-up: Supine->Sit: Head of bed elevated Skilled Rationale: Verbal cues, Tactile cues, Hand placement, Technique of activity Skilled Intervention/Details: Supine->Sit: verbal/tactile cues for instruction on transfer technique and mod A for LE And trunk management. Transfer Assessment/Intervention: Sit to Stand Transfer [place] Level: Sit->Stand: moderate assist (50% patient effort) Physical Assist: Sit->Stand: 2 person assist Assistive Device: Sit->Stand: gait belt Skilled Rationale: Verbal cues, Tactile cues, Hand placement, Full extension to upright positioning/posture, Technique of activity Skilled Intervention/Details: Sit->Stand: x4 trials throughout session with verbal/tactile cues for instruction on transfer technique, hand/foot placement for transfer set-up, faciliation of anterior weight shift requried to initiate transfer, and full extension into standing. Bed-Chair Transfer [place] Level: Bed<->Chair: moderate assist (50% patient effort) Physical Assist: Bed<->Chair: 2 person assist Assistive Device: Bed<->Chair: gait belt Skilled Rationale: Verbal cues, Tactile cues, Hand placement, Technique of activity Skilled Intervention/Details: Bed<->Chair: x1 trial stand pivot transfer from EOB to chair tothe left. Verbal/tactile cues for instruction on transfer technique, sequencing, blocking right knee. Outcome Score(s): CURRENT [facility] Basic Mobility Inpatient Short Form Turning over in bed: 2 - A Lot of Assistance Moving from lying on back to sittin - A Lot of Assistance Moving to and from bed to chair: 2 - A Lot of Assistance Sitting/standing from chair: 2 - A Lot of Assistance Walk in hospital room: 1 - Total Assistance Climbing 3-5 steps with a railin - Total Assistance CURRENT [facility] Mobility Raw Score: 10 CURRENT [facility] Mobility Functional Limitation: 76.75% Impaired in Basic Mobility Assessment & Plan: Pt tolerated PT session well with focus on sitting balance, sit to/from stand transfers, standing balance, stand pivot transfers, and supine to sit transfer. Pt would benefit from continued PT services to address deficits/impairments including: decreased strength, decreased balance, decreased functional endurance, impaired bed mobility, and altered gait mechanics in order to progress I with functional mobility. Patient Instruction/Education this session: Learners: Patient Education provided: Plan of care Plan for next session: progress transfers, gait, balance Acute PT Goals Plan of Care by Idalia Alvarez PT at 08/25/2024 2:54 PM Version 1 of 1 Problem: PT - General Goals Goal: Supine <-> Sit Transfers - Patient will perform supine to/from sit transfers with min Aand without use of hospital bed features in order to improve functional mobility and safety. Outcome: Progressing Goal: Standing Endurance/Balance - Patient will perform standing balance tasks for 2 min with Min Aand least restrictive assistive device Outcome: Progressing Goal: Ambulation - Patient will ambulate 50 feet with min A and with an assistive device to improveability to safely navigate home and community. Outcome: Progressing Goal: Sit <-> Stand Transfers - Patient will perform sit to/from stand transfers with min A and with an assistive device in order to improve functional mobility and safety. Outcome: Progressing PT treatment consisted of the following to progress towards the above goal(s): PT Evaluation and Treatment Time Therapeutic Activity Time Entry: 12 Neuromuscular Re-Education Time Entry: 12 Treating Therapist: Idalia Alvarez PT Additional Details: PT Co-Eval/Treatment Information Co-evaluation/co-treatment performed?: Yes, simultaneous billable skilled care was necessary due tomedical complexity and functional deficits Other discipline: OT Rationale for need to co-eval/treat: postural control Co-treatment goal focus: balance, mobility, transfer PPE used during patient interaction: gloves Patient location at end of session: chair Alarms on at end of session: chair alarm, RN aware Needs in reach. Time In: 1114 Time Out: 1138 Total Visit Time: 24 minutes Total Treatment Time (skilled, billable minutes): 24 minutes Upon discontinuation of Acute Care Physical Therapy Services or patient discharge from the hospitalthis note represents the current Physical Therapy Discharge Summary. * Mishel Swift RN - 08/25/2024 11:04 AM EDT Care Management Progress Note The patient has chosen [facility] as their preferred custodial facility. Case Management has reserved the placement. Facility Information: [facility] [address] [place] [address] Asmae. Thomas [employer] Clinical [employer] Helper * Arvin Guillaume MD - 08/25/2024 5:30 AM EDT Subjective No acute overnight events, fluctuating exam (stronger this morning, could be related to normal perfusion breakthrough) Objective Temp: [97.8 F (36.6 C)-98.1 F (36.7 C)] 97.9 F (36.6 C) Pulse (Heart Rate): [62-68] 65 Resp Rate: [14-16] 16 BP: (113-114)/(56-63) 114/59 O2 Sat (%): [93 %-97 %] 97 % PHYSICAL EXAM -- AOx3 -- FCx4 -- PERRL, EOMI -- FS, TM -- MAEW, symmetric -- RUE: antigravity proximally, 4+ in hand child care teacher (seemingly neglectful and improved when looking at extremities) -- RLE: antigravity throughout, 5/5 distally -- Some paresthesias noted to the RUE -- Incision c/d/i WBC/Hgb/Hct/Plts: 6.86/13.5/44.0/200 (08/25 117) Na/K+/Phos/Mg/Ca: 139/4.0/3.8/1.8/-- (08/25 117) Bun/Creat/Cl/CO2/Glucose: 13/0.56/101/26/113 (08/25 117) Lab Results Component Value Date INR 0.9 08/20/2024 INR 1.0 08/19/2024 INR 1.1 08/18/2024 PT 12.5 08/20/2024 PT 13.2 08/19/2024 PT 13.9 08/18/2024 Intake/Output Summary (Last 24 hours) at 08/25/2024 0547 Last data filed at 08/25/2024 0100 Gross per 24 hour Intake 940 ml Output 1500 ml Net -560 ml Medications augmented betamethasone dipropionate 1 Application Topical BID buPROPion 150 mg Oral QAM cephALEXin 250 mg Oral Nightly clobetasol 1 Application Topical BID Clotrimazole 1 Application Topical BID enoxaparin 40 mg Subcutaneous Daily Gabapentin 400 mg Oral TID [Held by provider] hydroCHLOROthiazide 25 mg Oral Daily Latanoprost 1 drop Both Eyes QHS levETIRAcetam 1,000 mg Oral Q12H Pantoprazole 40 mg Oral Daily Primidone 50 mg Oral 4x daily rOPINIRole 0.25 mg Oral QAM rOPINIRole 0.5 mg Oral 2 times per day Senna 8.6 mg Oral Daily Or Senna 8.6 mg Per NG tube Daily Sotalol 80 mg Oral Q12HNS Timolol maleate 1 drop Left Eye Daily Assessment/Plan 69 y.o. female w/ a phx of Crohn's, L parietal craniotomy for meningioma resection (2009) currentlyon ASA for CAD, LD 6/10 AM who presents as a hemorrhagic stroke alert, ICH score of 0 and HCT demonstrating a 2.4 x 1.9 x 2.5 cm L parietal ICH w/o MLS or ME. She is intact on exam except intermittent numbness on the R side ranging from the chin to the lateral thigh. NIH 1. MRI brain completed and reviewed confirming no underlying contrast enhancement. 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 Hypocalcemia - Continue to monitor and replete. Obesity, class I Body mass index is 33.06 kg/m . - Follow with PCP for dietary and lifestyle modifications. Wound Documentation Wound Surgical Sheath Site 08/19/24 1344 Right Femoral (Active) Date First Assessed/Time First Assessed: 08/19/24 1344 Primary Wound Type: Surgical Secondary WoundType - Surgical: Sheath Site Incision Closure/Dressing: Gauze;Tegaderm Wound Location Orientation: Right Location: Femoral Wound Surgical 08/20/24 1046 Posterior;Upper Head (Active) Date First Assessed/Time First Assessed: 08/20/24 1046 Primary Wound Type: Surgical Present on Original Admission: No Wound Location Orientation: Posterior;Upper Location: Head Wound Surgical Sheath Site 08/20/24 1314 Left Femoral (Active) Date First Assessed/Time First Assessed: 08/20/24 1314 Primary Wound Type: Surgical Secondary WoundType - Surgical: Sheath Site Present on Original Admission: No Incision Closure/Dressing: (c) Tegaderm;Gauze Wound Location Orientation: Left Lo... Wound Pressure Injury Suspected 08/20/24 1400 Buttocks (Active) Date First Assessed/Time First Assessed: 08/20/24 1400 Primary Wound Type: Pressure Injury Secondary Wound Type - Pressure Injury: Suspected Location: Buttocks Any conditions listed below are present on admission unless otherwise specified. . Cosigned by Marian Mcdonald MD at 08/25/2024 6:54 PM EDT Associated attestation - Marian Mcdonald MD - 08/25/2024 6:54 PM EDT I reviewed all pertinent notes, imaging, and laboratory work in the medical record. I personally saw and examined the patient and discussed the case with resident. I agree with the findings and plan,as stated below. Strength improving. Continue PT/OT. Dispo planning. EEG negative Marian Mcdonald MD [employer] Supervisor [employer] Neurological [employer] [id number] * MILAN Valderrama - 08/24/2024 9:34 AM EDT Brief Initial Screening Note 08/24/24 0933 Nutrition Screening Nutrition Screen Indicator admission 7 days or greater Nutrition Interview at bedside Appetite fair (Per flowsheets eating 100% of meals, per patient eating 80% of meals) Patient c/o diarrhea Chewing / Swallowing Problems no issues with chewing and/or swallowing;dentures Weight Changes no Malnutrition weight loss criteria no significant weight changes Cultural or Advent Restrictions/Preferences Denies Skin Integrity / Vincent Score Reviewed yes Nutrition Risk Nutrition Risk Factors Identified current admit;past medical history;prolonged hospital stay Plan Diet Order continue current diet order Oral Supplement no oral supplements warranted at this time Follow up monitor for significant weight changes;monitor skin integrity;compliance technician to follow;monitorfor GI symptoms;encourage PO intake with goal of 75% Dietary - Nutrition Risk Assignment Nutrition Risk Standard Who will continue to follow the patient [employer] Nutrition Plan of Care Nutrition Plan of Care NR-S 08/24* MILAN ValderramaR Pager #[phone] * Jessica Sanchez RN - 08/24/2024 8:39 AM EDT Images from the original note were not included. 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 CM sent updated notes. One accepting, 2 have yet to review. [facility] Inpatient Rehab- Under Review [address] Rehab Unit Barriers: Medical stability, CTH results, Improvement in weakness. Facility acceptance and choice Precert CM will continue to follow for support and DC planning. Please reach out for urgent needs or concerns Jessica AYOUB RN, CDM Clinical Case Management [facility] * Arvin Guillaume MD - 08/24/2024 5:30 AM EDT I reviewed all pertinent notes, imaging, and laboratory work in the medical record. I personally saw and examined the patient and discussed the case with resident. I agree with the findings and plan,as stated below. Stable today. RUE/RLE strength fluctuating. Good this AM. CTH with edema - no large CVA on MRI. Spot EEG due to fluctuation. 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 neglectful and improved when looking at extremities) -- RLE: less than antigravity proximally, wiggles toes -- Some paresthesias noted to the RUE -- Incision c/d/i WBC/Hgb/Hct/Plts: 6.61/13.3/42.8/195 (08/24 0020) Lab Results Component Value Date INR 0.9 08/20/2024 INR 1.0 08/19/2024 INR 1.1 08/18/2024 PT 12.5 08/20/2024 PT 13.2 08/19/2024 PT 13.9 08/18/2024 Intake/Output Summary (Last 24 hours) at 08/24/2024 0548 Last data filed at 08/24/2024 0500 Gross per 24 hour Intake 655 ml Output 1000 ml Net -345 ml Medications augmented betamethasone dipropionate 1 Application Topical BID buPROPion 150 mg Oral QAM cephALEXin 250 mg Oral Nightly clobetasol 1 Application Topical BID Clotrimazole 1 Application Topical BID enoxaparin 40 mg Subcutaneous Daily Gabapentin 400 mg Oral TID [Held by provider] hydroCHLOROthiazide 25 mg Oral Daily Latanoprost 1 drop Both Eyes QHS levETIRAcetam 1,000 mg Oral Q12H Pantoprazole 40 mg Oral Daily Primidone 50 mg Oral 4x daily rOPINIRole 0.25 mg Oral QAM rOPINIRole 0.5 mg Oral 2 times per day Senna 8.6 mg Oral Daily Or Senna 8.6 mg Per NG tube Daily Sotalol 80 mg Oral Q12HNS Timolol maleate 1 drop Left Eye Daily Assessment/Plan 69 y.o. female w/ a phx of Crohn's, L parietal craniotomy for meningioma resection (2009) currentlyon ASA for CAD, LD 6/10 AM who presents as a hemorrhagic stroke alert, ICH score of 0 and HCT demonstrating a 2.4 x 1.9 x 2.5 cm L parietal ICH w/o MLS or ME. She is intact on exam except intermittent numbness on the R side ranging from the chin to the lateral thigh. NIH 1. MRI brain completed and reviewed confirming no underlying contrast enhancement. 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 Hypocalcemia - Continue to monitor and replete. Obesity, class I Body mass index is 33.06 kg/m . - Follow with PCP for dietary and lifestyle modifications. Wound Documentation Wound Surgical Sheath Site 08/19/24 1344 Right Femoral (Active) Date First Assessed/Time First Assessed: 08/19/24 1344 Primary Wound Type: Surgical Secondary WoundType - Surgical: Sheath Site Incision Closure/Dressing: Gauze;Tegaderm Wound Location Orientation: Right Location: Femoral Wound Surgical 08/20/24 1046 Posterior;Upper Head (Active) Date First Assessed/Time First Assessed: 08/20/24 1046 Primary Wound Type: Surgical Present on Original Admission: No Wound Location Orientation: Posterior;Upper Location: Head Wound Surgical Sheath Site 08/20/24 1314 Left Femoral (Active) Date First Assessed/Time First Assessed: 08/20/24 1314 Primary Wound Type: Surgical Secondary WoundType - Surgical: Sheath Site Present on Original Admission: No Incision Closure/Dressing: (c) Tegaderm;Gauze Wound Location Orientation: Left Lo... Wound Pressure Injury Suspected 08/20/24 1400 Buttocks (Active) Date First Assessed/Time First Assessed: 08/20/24 1400 Primary Wound Type: Pressure Injury Secondary Wound Type - Pressure Injury: Suspected Location: Buttocks Any conditions listed below are present on admission unless otherwise specified. . Cosigned by Marian Mcdonald MD at 08/25/2024 6:55 PM EDT Associated attestation - Marian Mcdonald MD - 08/25/2024 6:55 PM EDT I reviewed all pertinent notes, imaging, and laboratory work in the medical record. I personally saw and examined the patient and discussed the case with resident. I agree with the findings and plan,as stated below. CTH with edema. MRI no CVA. Spot EEG. Marian Mcdonald MD [employer] Supervisor of Neurological Surgery [id number] * Jessica Sanchez RN - 08/23/2024 4:03 PM EDT Images from the original note were not included. Reason for Consult: IPR Consulted By: Medical team Level(s) of Care Discussed: Home with HHC vs IPR Patient and/or [employer]'s Preferred Geographic Area for Discharge: [address] Patient and/or [employer]'s Preference for Providers to Include? [id number] Patient and/or [employer]'s Preference for Providers to Exclude? 1.N/A Patient and/or [employer]'s Discussion: Discussed referral process with the patient and/or open claims representative. Patient and/or open claims representative isagreeable to have placement referral initiated. Jessica AYOUB RN, CDM Clinical Case Management [facility] * Roxie Tuttle, PT - 08/23/2024 12:31 PM EDT Acute Physical Therapy Re-Evaluation Prior Gross Functional Mobility: independent Current AM-PAC score(s): CURRENT AM-PAC Mobility Raw Score: 8 Based on the above AM-PAC score(s) and PT clinical judgment, patient is a good candidate for discharge to Inpatient Rehab Facility Supporting Factors (would benefit from skilled therapy services): Recent decline in functional mobility Mobility equipment available at home: straight cane, rollator ADL equipment available at home: shower chair, grab bars Equipment needed for discharge: to be determined Current therapy frequency recommendation in acute: PT Therapy Frequency: 5 times a week Activity Recommendations for outside of rehab session: 2 person pivot to L side Precautions and Weightbearing Status: Existing Precautions/Restrictions: fall Patient Safety Communication Prior to Visit: Nursing Lines/Tubes/Drains (Rehab Status): Telemetry O2 Device: room air Subjective: Patient sitting in chair with spouse present upon arrival of PT. Patient reports her right side is much weaker and more tingly compared to before surgery. Agreeable to therapy session Pain: General Pain Documentation (Adult, OB, Peds) Presence of Pain: reports pain/discomfort Pain Location: head DVPRS (Defense and Veterans Pain Rating Scale) DVPRS: Rest: 6- moderate pain General Pain Descriptors Pain Frequency: constant Pain Quality: other (see comments) (heavy; intermittent throbbing) Home Setting Residence: House Lives With: spouse First floor setup: bedroom, walk-in shower Number of stairs to enter home: 3 with rail Mobility Equipment Available: straight cane, rollator ADL Equipment Available: shower chair, grab bars Previous Level of Function Gross Functional Mobility: independent Assistive Device: none used Prior level ADL Overview: Independent with all ADLs Dominant Hand: Right Bed Mobility: independent Transfers: independent Stairs: independent Ambulation: independent with all needs Objective/Observation: Vitals/Vitals Responses to Treatment: no adverse response noted Cognition Overall Cognitive Status: Within Functional Limits Arousal/Alertness: Appropriate responses to stimuli Orientation Level: Oriented X4 Following Commands: Follows all commands and directions without difficulty Safety Judgment: Good awareness of safety precautions Awareness of Errors: Good awareness of errors made Deficits: Fully aware of deficits Vision Screen Currently wearing corrective lenses: Reading only Visual Impairments Observed?: Yes Ocular (Smooth) Pursuits - Descripton: Smooth Ocular Saccades - Quality: Fair Ocular Saccades - Description: Undershooting Speech Speech: no gross deficits noted Hearing Hearing: no gross deficits noted Extremity Assessments: RLE Assessment RLE Assessment: Strength Impaired, PROM WFL Strength RLE R Hip Flexion: 2-/5 R Knee Flexion: 2+/5 R Knee Extension: 3/5 R Ankle Dorsiflexion: 3+/5 LLE Assessment LLE Assessment: Strength WFL, AROM WFL Sensation Overall Sensation: Impaired Light Touch: Right, Upper extremity, Lower extremity Sharp/Dull: Diminished, Lower extremity, Upper extremity, Right Extinction: Negative Inattention/Neglect: intact Temperature: Diminished, Right, Lower extremity Sensation Comments: reports diminished with paresthesias to R UE and LE Mobility Assessment: Rolling/Turning Mobility Skilled Intervention/Details: Rolling/Turning: not performed in chair upon entry Supine to Sit Mobility Skilled Intervention/Details: Supine->Sit: not performed in chair upon entry Sit to Supine Mobility Skilled Intervention/Details: Sit->Supine: not performed in chair at end of session Balance: Sitting Balance Static Sitting-Level of Assistance: Contact guard Dynamic Sitting-Level of Assistance: Contact guard Skilled Rationale: Verbal cues Sitting Balance Skilled Intervention/Details: in backed chair in preparation for STS transition Standing Balance Static Standing-Level of Assistance: Maximum assistance Dynamic Standing-Level of Assistance: Maximum assistance Standing-Balance Support: Gait belt Skilled Rationale: Hand placement Standing Balance Skilled Intervention/Details: x1 attempt with cues for upright and R LE engagementfor muslce re-activation Transfer Assessment: Sit to Stand Transfer [place] Level: Sit->Stand: maximum assist (25% patient effort) Assistive Device: Sit->Stand: gait belt Skilled Rationale: Hand placement, Verbal cues Skilled Intervention/Details: Sit->Stand: R UE supported by thearpist, x2 trials, fatigues with second attempt an unable to achieve full uprgith; R LE buckling Stand to Sit Transfer [place] Level: Stand->Sit: maximum assist (25% patient effort) Assistive Device: Stand->Sit: gait belt Skilled Rationale: Positioning, Verbal cues, Technique of activity, Controlled descent for sitting Bed-Chair Transfer Skilled Intervention/Details: Bed<->Chair: not performed in chair upon entry Gait/Functional Mobility: Gait Assessment [place] Level: Gait: not tested Skilled Intervention/Details - Gait: unable to perform at this time Stairs: Stairs Assessment [place] Level: Stair Negotiation: not tested Outcome Score(s): CURRENT [facility] Basic Mobility Inpatient Short Form Turning over in bed: 2 - A Lot of Assistance Moving from lying on back to sittin - A Lot of Assistance Moving to and from bed to chair: 1 - Total Assistance Sitting/standing from chair: 1 - Total Assistance Walk in hospital room: 1 - Total Assistance Climbing 3-5 steps with a railin - Total Assistance CURRENT [facility] Mobility Raw Score: 8 CURRENT [facility] Mobility Functional Limitation: 86.62% Impaired in Basic Mobility Interventions: Intervention 1 Intervention Name: Education provided findings of re-evaualtion and difference from initial evaluation Sets/Reps/Duration: x5 mins Intervention 2 Intervention Name: Eduction on IPR with x3 hours of skilled needs and deferred selection to care management x5 mins Assessment & Plan: Pt previously evaluated by Physical Therapy on 08/18. Pt now with functional status change secondary to craniotomy, necessitating a re-evaluation. Previously established Physical Therapy Plan of Carerevised to reflect patient's current functional status. Re-exam findings include impairments in: Strength, Balance, Transfers, Gait/Locomotion, Motor control, Aerobic capacity/endurance. These impairments contribute to functional limitations including Increased fall risk, Decreased ambulation distance/endurance. Re-evaluation completd with s/p surgery for AVM on 08/20. Patient demonstrates decline in functional strength to R UE and LE impacting her independence with gait, transfers, standing tasks, and R LE motor control. Patient is at a high fall risk and not at her funcitonal baseline. She has supportive spouse, would tolerate 3 hours of skilledtherapy, and extremely motivated to work with therapy making her an excellen IPR candidate. Planned Therapy Interventions: balance training, bed mobility training, caregiver training/education, functional activity tolerance, gait training, neuromuscular re-education, strengthening, transfertraining Patient Instruction/Education this session: Learners: Patient Education provided: Activity outside of therapy Learner response: States/Identifies/Teaches back Learning preferences: Auditory Learning considerations: No barriers/ready to learn Stroke education: Role of rehabilitation discipline Patient Instruction/Education comments: education on LE and UE for frequent movement throughout theday and attention to R UE and LE for neuroplasticity Plan for next session: progress with standing and R LE weight bearing Acute PT Goals Plan of Care by Roxie Tuttle PT at 08/23/2024 12:31 PM Version 1 of 1 Problem: PT - General Goals Goal: Ambulation - Patient will ambulate 50 feet with min A and with an assistive device to improveability to safely navigate home and community. Outcome: Ongoing Problem: PT - General Goals Goal: Supine <-> Sit Transfers - Patient will perform supine to/from sit transfers with min Aand without use of hospital bed features in order to improve functional mobility and safety. Outcome: Progressing Goal: Standing Endurance/Balance - Patient will perform standing balance tasks for 2 min with Min Aand least restrictive assistive device Outcome: Progressing Problem: PT - General Goals Goal: Sit <-> Stand Transfers - Patient will perform sit to/from stand transfers with min A and with an assistive device in order to improve functional mobility and safety. Outcome: Progressing PT treatment consisted of the following to progress towards the above goal(s): PT Evaluation and Treatment Time PT Re-Evaluation Time Entry: 32 Evaluating Therapist: Roxie Tuttle PT Additional Details: PT Co-Eval/Treatment Information Co-evaluation/co-treatment performed?: No simultaneous skilled care performed Time In: 1231 Time Out: 1303 Total Visit Time: 32 minutes Total Treatment Time (skilled, billable minutes): 32 minutes PPE used during patient interaction: gloves Patient location at end of session: chair Alarms on at end of session: chair alarm Needs in reach. Upon discontinuation of Acute Care Physical Therapy Services or patient discharge from the hospitalthis note represents the current Physical Therapy Discharge Summary. * Joseluis Beverly OT - 08/23/2024 12:05 PM EDT Acute Occupational Therapy Re-Evaluation Prior Gross Functional Mobility: independent Current AM-PAC score(s): CURRENT AM-PAC Activity Raw Score: 10 Based on the above AM-PAC score(s) and OT clinical judgment, discharge destination recommendation is: Inpatient Rehab Facility Barriers to discharge home: Patient needs assistance with medication management, Patient needs assistance with ADLs, Patient needs assistance with IADLs (see note below) Supporting Factors (would benefit from skilled therapy services): Impaired self- care abilities, Decreased endurance Mobility equipment available at home: straight cane, rollator ADL equipment available at home: shower chair, grab bars Equipment recommendations for discharge: none Current therapy frequency recommendation(s) in acute: 5 times a week Activity Recommendations for outside of rehab session: 2 person pivot to L side Precautions and Weightbearing Status: OT Existing Precautions/Restrictions: fall Patient Safety Communication Prior to Visit: Nursing Lines/Tubes/Drains (Rehab Status): Telemetry Subjective: that would make me feel so much better when talking about rehab stay Pain: General Pain Documentation (Adult, OB, Peds) Presence of Pain: reports pain/discomfort Pain Location: head DVPRS (Defense and Veterans Pain Rating Scale) DVPRS: Rest: 2- mild pain Home Setting Residence: House Lives With: spouse First floor setup: bedroom, walk-in shower Number of stairs to enter home: 3 with rail Mobility Equipment Available: straight cane, rollator ADL Equipment Available: shower chair, grab bars Previous Level of Function Gross Functional Mobility: independent Assistive Device: none used Prior level ADL Overview: Independent with all ADLs Dominant Hand: Right Bed Mobility: independent Transfers: independent Stairs: independent Ambulation: independent with all needs IADL History IADLs: independent Objective/Observation: Vitals/Vitals Responses to Treatment: VSS Vision Screen Currently wearing corrective lenses: Reading only Visual Impairments Observed?: Yes Ocular (Smooth) Pursuits - Descripton: Smooth Ocular Saccades - Quality: Fair Ocular Saccades - Description: Undershooting Speech Speech: no gross deficits noted Hearing Hearing: no gross deficits noted Cognition Overall Cognitive Status: Within Functional Limits Arousal/Alertness: Appropriate responses to stimuli Orientation Level: Oriented X4 Following Commands: Follows all commands and directions without difficulty Safety Judgment: Good awareness of safety precautions Awareness of Errors: Good awareness of errors made Deficits: Fully aware of deficits ADLs: ADL Assessment: Toileting Deficit, LE Dressing Deficit ADL Anticipated Performance (ADLs not directly observed this session): Eating, Grooming, Bathing, UE Dressing Eating Assistance: Maximal Eating Intervention/Details: with RUE Grooming Assistance: Maximal Bathing Assistance: Maximal UE Dressing Assistance: Moderate LE Dressing Assistance: Maximal LE Dressing Location: edge of bed LE Dressing Deficit: Don/doff R shoe, Don/doff L shoe LE Dressing Skilled Rationale (Verbal/Tactile/Visual/Demonstration): Supervision, Setup, Cues for increased safety, Technique of activity Toilet Assistance: Total Toileting Location: bedside commode Toileting Deficit: Activity tolerance, Balance, Generalized weakness Toilet Skilled Rationale (Verbal/Tactile/Visual/Demonstration): Supervision, Setup, Cues for increased safety, Technique of activity Toileting Intervention/Details: Assist for standing with R knee blocked and additional person for pericare Extremity Assessments: RUE Assessment RUE Assessment: (Shoulder to 90 degrees, elbow PWFL, 2-/5, hand 1/5) LUE Assessment LUE Assessment: Within Functional Limits, Strength WFL Balance: Sitting Balance Static Sitting-Level of Assistance: Contact guard Dynamic Sitting-Level of Assistance: Contact guard Skilled Rationale: Hand placement, Verbal cues Standing Balance Static Standing-Level of Assistance: Maximum assistance Dynamic Standing-Level of Assistance: Maximum assistance Standing-Balance Support: Gait belt Skilled Rationale: Hand placement, Sequencing, Positioning, Verbal cues Neuro: Sensation Overall Sensation: Intact Reported it feels different, but intact to light touch Fine Motor Coordination Left Hand Thumb/Finger Opposition Skills: normal performance Right Hand Thumb/Finger Opposition Skills: unable to perform Mobility Assessment: Supine to Sit Mobility [place] Level: Supine->Sit: maximum assist (25% patient effort) Bed Features/Set-up: Supine->Sit: Head of bed elevated Skilled Rationale: Hand placement, Verbal cues, Tactile cues Skilled Intervention/Details: Supine->Sit: Cues for RLE off of the bed Transfer Assessment: Sit to Stand Transfer [place] Level: Sit->Stand: maximum assist (25% patient effort) Assistive Device: Sit->Stand: gait belt Skilled Rationale: Hand placement, Verbal cues, Tactile cues Skilled Intervention/Details: Sit->Stand: arm in arm assist, X 3 trials. Momentum strategies Bed-Chair Transfer [place] Level: Bed<->Chair: maximum assist (25% patient effort) Assistive Device: Bed<->Chair: gait belt Skilled Rationale: Verbal cues, Hand placement, Sequencing, Positioning Skilled Intervention/Details: Bed<->Chair: modified stand pivot to BSC and then to recliner chair CURRENT [facility] Daily Activity Inpatient Short Form Putting on/Taking Off Lower Body Clothin - Total Assistance Bathin - A Lot of Assistance Toiletin - Total Assistance Putting on/Taking Off Upper Body Clothin - A Lot of Assistance Groomin - A Lot of Assistance Eatin - A Lot of Assistance CURRENT [facility] Activity Raw Score: 10 CURRENT [facility] Activity Functional Limitation/Modifier: 74.70% Currently Impaired in Daily Activity- CL Interventions: Assessment & Plan: Pt previously evaluated by Occupational Therapy on 08/18. Patient now with functional status change secondary to Craniotomy, necessitating re-evaluation. Previous established Occupational Therapy Planof Care revised to reflect patient's current functional status. Exam findings include impairments in: aerobic capacity, attention, balance, endurance, ROM, transfers, strength. These impairments contribute to occupational performance limitations including bathing, dressing, toileting, functional mobility, ADL transfers, grooming. Planned Therapy Interventions (OT Eval): ADL retraining, IADL retraining, balance training, bed mobility training, transfer training, ROM (range of motion), neuromuscular re-education, functional activity tolerance, fine motor coordination training Learners: Patient Education provided: Activity outside of therapy Teaching method: Verbal Education/Instruction Learner response: States/Identifies/Teaches back Stroke education: Role of rehabilitation discipline Plan for next session: Address [facility] Acute OT Goals Plan of Care by Joseluis Beverly OT at 08/23/2024 12:23 PM Version 1 of 1 Problem: OT - ADLs Goal: Grooming - Patient will complete grooming edge of bed with minimal assistance for improved ability to safely complete ADLs. Outcome: Ongoing Goal: Bathing - Patient will perform full body bathing routine with minimal assistance while seatedfor improved ability to complete self-care activities Outcome: Ongoing Problem: OT - Strength/ROM Goal: Fine Motor Coordination - Patient will participate in fine motor coordination functional taskcompleting 10/10 reps with minimal assistance for improved fine motor strength and coordination required to complete self-care tasks. Outcome: Ongoing Problem: OT - Transfers Goal: Transfers Toilet/ Bedside Commode - Patient will transfer to/from toilet/bedside commode withmoderate assistance for improved ability to safely complete ADLs. Outcome: Progressing Problem: OT - Strength/ROM Goal: Neuro Re-education - Patient will participate in neuro re-ed of right upper extremity with minimal assistance and 75% accuracy for improved functional use in ADLs. Outcome: Progressing OT treatment consisted of the following to work and progress towards the above goal(s): OT Evaluation and Treatment Time OT Re-Evaluation Time Entry: 20 Self Care/Home Management (ADLs) Time Entry: 14 Evaluating Therapist: Joseluis Beverly OT Additional Details: Co-evaluation/co-treatment performed?: No simultaneous skilled care performed OT Co-Eval/Treatment Information Co-evaluation/co-treatment performed?: No simultaneous skilled care performed PPE used during patient interaction: gloves Time In: 1131 Time Out: 1205 Total Visit Time: 34 minutes Total Treatment Time (skilled, billable minutes): 34 minutes Patient location at end of session: chair Alarms on at end of session: RN aware Needs in reach. Upon discontinuation of Acute Care Occupational Therapy Services or patient discharge from the hospital this note represents the current Occupational Therapy Discharge Summary. * Arvin Guillaume MD - 08/23/2024 5:03 AM EDT Subjective No acute overnight events Objective Temp: [97.9 F (36.6 C)-99.6 F (37.6 C)] 98.2 F (36.8 C) Pulse (Heart Rate): [62-66] 65 Resp Rate: [15-18] 15 BP: (108-143)/(55-66) 138/65 O2 Sat (%): [93 %-94 %] 94 % PHYSICAL EXAM -- AOx3 -- FCx4 -- PERRL, EOMI -- FS, TM -- MAEW, symmetric -- Spontaneous and antigravity movement L > R -- Some paresthesias noted to the RUE -- Incision c/d/i WBC/Hgb/Hct/Plts: 6.11/12.8/42.7/188 (08/224) Na/K+/Phos/Mg/Ca: 139/4.4/3.7/1.9/-- (08/23 2323) Bun/Creat/Cl/CO2/Glucose: 10/0.60/102/29/94 (08/23 2323) Lab Results Component Value Date INR 0.9 08/20/2024 INR 1.0 08/19/2024 INR 1.1 08/18/2024 PT 12.5 08/20/2024 PT 13.2 08/19/2024 PT 13.9 08/18/2024 Intake/Output Summary (Last 24 hours) at 08/23/2024 0503 Last data filed at 08/23/2024 0343 Gross per 24 hour Intake 240 ml Output 2005 ml Net -1765 ml Medications augmented betamethasone dipropionate 1 Application Topical BID buPROPion 150 mg Oral QAM cephALEXin 250 mg Oral Nightly clobetasol 1 Application Topical BID Clotrimazole 1 Application Topical BID enoxaparin 40 mg Subcutaneous Daily Gabapentin 400 mg Oral TID [Held by provider] hydroCHLOROthiazide 25 mg Oral Daily Latanoprost 1 drop Both Eyes QHS levETIRAcetam 1,000 mg Oral Q12H Pantoprazole 40 mg Oral Daily Primidone 50 mg Oral 4x daily rOPINIRole 0.25 mg Oral QAM rOPINIRole 0.5 mg Oral 2 times per day Senna 8.6 mg Oral Daily Or Senna 8.6 mg Per NG tube Daily Sotalol 80 mg Oral Q12HNS Timolol maleate 1 drop Left Eye Daily Assessment/Plan 69 y.o. female w/ a phx of Crohn's, L parietal craniotomy for meningioma resection (2009) currentlyon ASA for CAD, LD 6/10 AM who presents as a hemorrhagic stroke alert, ICH score of 0 and HCT demonstrating a 2.4 x 1.9 x 2.5 cm L parietal ICH w/o MLS or ME. She is intact on exam except intermittent numbness on the R side ranging from the chin to the lateral thigh. NIH 1. MRI brain completed and reviewed confirming no underlying contrast enhancement. 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 Hypocalcemia - Continue to monitor and replete. Obesity, class I Body mass index is 33.06 kg/m . - Follow with PCP for dietary and lifestyle modifications. Wound Documentation Wound Surgical Sheath Site 08/19/24 1344 Right Femoral (Active) Date First Assessed/Time First Assessed: 08/19/24 1344 Primary Wound Type: Surgical Secondary WoundType - Surgical: Sheath Site Incision Closure/Dressing: Gauze;Tegaderm Wound Location Orientation: Right Location: Femoral Wound Surgical 08/20/24 1046 Posterior;Upper Head (Active) Date First Assessed/Time First Assessed: 08/20/24 1046 Primary Wound Type: Surgical Present on Original Admission: No Wound Location Orientation: Posterior;Upper Location: Head Wound Surgical Sheath Site 08/20/24 1314 Left Femoral (Active) Date First Assessed/Time First Assessed: 08/20/24 1314 Primary Wound Type: Surgical Secondary WoundType - Surgical: Sheath Site Present on Original Admission: No Incision Closure/Dressing: (c) Tegaderm;Gauze Wound Location Orientation: Left Lo... Wound Pressure Injury Suspected 08/20/24 1400 Buttocks (Active) Date First Assessed/Time First Assessed: 08/20/24 1400 Primary Wound Type: Pressure Injury Secondary Wound Type - Pressure Injury: Suspected Location: Buttocks Any conditions listed below are present on admission unless otherwise specified. . * Arvin Guillaume MD - 08/22/2024 7:47 AM EDT Subjective Transferred out of ICU 08/21, doing well on floor Objective Temp: [97.6 F (36.4 C)-98.3 F (36.8 C)] 97.7 F (36.5 C) Pulse (Heart Rate): [57-67] 61 Resp Rate: [16-21] 16 BP: (103-134)/(53-63) 103/59 O2 Sat (%): [93 %-98 %] 95 % PHYSICAL EXAM -- AOx3 -- FCx4 -- PERRL, EOMI -- FS, TM -- MAEW, symmetric -- Spontaneous and antigravity movement L > R -- Some paresthesias noted to the RUE -- L cranial dressing taken down, incision c/d/i WBC/Hgb/Hct/Plts: 6.45/11.7/38.1/164 (08/22 52) Na/K+/Phos/Mg/Ca: 139/3.9/3.8/2.0/-- (08/22 52) Bun/Creat/Cl/CO2/Glucose: 10/0.61/101/31/122 (08/22 52) Lab Results Component Value Date INR 0.9 08/20/2024 INR 1.0 08/19/2024 INR 1.1 08/18/2024 PT 12.5 08/20/2024 PT 13.2 08/19/2024 PT 13.9 08/18/2024 Intake/Output Summary (Last 24 hours) at 08/22/2024 0747 Last data filed at 08/22/2024 0557 Gross per 24 hour Intake 760.93 ml Output 1275 ml Net -514.07 ml Medications augmented betamethasone dipropionate 1 Application Topical BID buPROPion 150 mg Oral QAM cephALEXin 250 mg Oral Nightly clobetasol 1 Application Topical BID Clotrimazole 1 Application Topical BID enoxaparin 40 mg Subcutaneous Daily Gabapentin 400 mg Oral TID [Held by provider] hydroCHLOROthiazide 25 mg Oral Daily Latanoprost 1 drop Both Eyes QHS levETIRAcetam 1,000 mg Oral Q12H Pantoprazole 40 mg Oral Daily Primidone 50 mg Oral 4x daily rOPINIRole 0.25 mg Oral QAM rOPINIRole 0.5 mg Oral 2 times per day Senna 8.6 mg Oral Daily Or Senna 8.6 mg Per NG tube Daily Sotalol 80 mg Oral Q12HNS Timolol maleate 1 drop Left Eye Daily Assessment/Plan 69 y.o. female w/ a phx of Crohn's, L parietal craniotomy for meningioma resection (2009) currentlyon ASA for CAD, LD 6/10 AM who presents as a hemorrhagic stroke alert, ICH score of 0 and HCT demonstrating a 2.4 x 1.9 x 2.5 cm L parietal ICH w/o MLS or ME. She is intact on exam except intermittent numbness on the R side ranging from the chin to the lateral thigh. NIH 1. MRI brain completed and reviewed confirming no underlying contrast enhancement. 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 Hypocalcemia - Continue to monitor and replete. Obesity, class I Body mass index is 33.06 kg/m . - Follow with PCP for dietary and lifestyle modifications. Wound Documentation Wound Surgical Sheath Site 08/19/24 1344 Right Femoral (Active) Date First Assessed/Time First Assessed: 08/19/24 1344 Primary Wound Type: Surgical Secondary WoundType - Surgical: Sheath Site Incision Closure/Dressing: Gauze;Tegaderm Wound Location Orientation: Right Location: Femoral Wound Surgical 08/20/24 1046 Posterior;Upper Head (Active) Date First Assessed/Time First Assessed: 08/20/24 1046 Primary Wound Type: Surgical Present on Original Admission: No Wound Location Orientation: Posterior;Upper Location: Head Wound Surgical Sheath Site 08/20/24 1314 Left Femoral (Active) Date First Assessed/Time First Assessed: 08/20/24 1314 Primary Wound Type: Surgical Secondary WoundType - Surgical: Sheath Site Present on Original Admission: No Incision Closure/Dressing: (c) Tegaderm;Gauze Wound Location Orientation: Left Lo... Wound Pressure Injury Suspected 08/20/24 1400 Buttocks (Active) Date First Assessed/Time First Assessed: 08/20/24 1400 Primary Wound Type: Pressure Injury Secondary Wound Type - Pressure Injury: Suspected Location: Buttocks Any conditions listed below are present on admission unless otherwise specified. . Cosigned by Marian Mcdonald MD at 08/23/2024 2:00 PM EDT Associated attestation - Marian Mcdonald MD - 08/23/2024 2:00 PM EDT I reviewed all pertinent notes, imaging, and laboratory work in the medical record. I personally saw and examined the patient and discussed the case with resident. I agree with the findings and plan,as stated below. Doing well today. Continue to work with PT/OT. Recommending IPR. Incision healing well. 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 No seizures or epileptiform discharges seen Cont home Primidone and requiept Cont home wellbutrin Pulm: On 3l CXR now ISQ1h Cards: hydrochlorothiazide SBP<140, labetalol and hydralazine prn, EKG Renal: Is and Os, discont IV fluid Daily chem 10 Remove jalloh GI: Po diet Last BM:12/20 Endo: ISS PocGlu<180 ID: chronic UTI Cont home Kelflex periop abx as per NSGY. Monitor fever curve, Tylenol prn for Temp>100.4 Hem: CBC, Plt>100, INR<1.4, SCD,Lovenox when cleared by nsgy Recent Labs 08/19/24 0548 08/20/24 0300 08/21/24 0205 SODIUM 140 140 139 POTASSIUM 4.2 4.2 4.1 CHLORIDE 103 104 101 CO2 30 25 32* BUN 9 8 8 CREATSERUM 0.61 0.66 0.57 MAGNESIUM 1.9 1.9 1.8 PHOSPHORUS 4.5 4.2 3.6 ICA -- -- 4.52* No results for input(s): ALBUMIN, PREALBUMIN, CRP, BILIDIRECT, BILITOTAL, ALKPHOS, ALT, AST, TP, AMYLASE, LIPASE in the last 72 hours. - DIET REGULAR AAT - [place] Swallow Screening Result: passed=cleared for oral intake Recent Labs 08/20/24 0300 08/20/24 0651 08/20/24 1408 08/21/24 0205 GLUCOSE 101 99 120 125 Recent Labs 08/19/24 0548 08/20/24 0300 08/21/24 0205 WBC 5.76 6.45 11.05 HGB 13.0 13.5 12.1 HCT 42.1 45.1* 39.1 PLATELET 174 190 191 PT 13.2 12.5 -- PTT 25.4 24.8 -- INR 1.0 0.9 -- augmented betamethasone dipropionate 1 Application Topical BID buPROPion 150 mg Oral QAM ceFAZolin 2 g Intravenous Q8H cephALEXin 250 mg Oral Nightly clobetasol 1 Application Topical BID Clotrimazole 1 Application Topical BID Gabapentin 400 mg Oral TID hydroCHLOROthiazide 25 mg Oral Daily Latanoprost 1 drop Both Eyes QHS levETIRAcetam 1,000 mg Oral Q12H Pantoprazole 40 mg Oral Daily Primidone 50 mg Oral 4x daily rOPINIRole 0.25 mg Oral QAM rOPINIRole 0.5 mg Oral 2 times per day Senna 8.6 mg Oral Daily Or Senna 8.6 mg Per NG tube Daily Sotalol 80 mg Oral Q12HNS Timolol maleate 1 drop Left Eye Daily Lactated ringers 75 mL/hr at 08/21/24 0800 Acetaminophen OR Acetaminophen OR Acetaminophen OR Acetaminophen, Calcium Gluconate OR calcium gluconate, fluticasone, hydrALAZINE OR hydrALAZINE, HYDROmorphone, Labetalol OR Labetalol, magnesium sulfate, Ondansetron 4mg/2ml OR Ondansetron, oxyCODONE, Polyethylene glycolOR Polyethylene glycol, potassium chloride OR Potassium chloride OR Potassium Bicarb-Citric Acid OR potassium chloride, sodium phosphate OR sodium phosphate Cleveland Saleem MD * Cici Go APRN-PAPER DELIVERER - 08/21/2024 8:47 AM EDT NEUROCRITICAL CARE DAILY PROGRESS NOTE HOSPITAL VISIT DEMOGRAPHICS Patient: Amanda Reyna Code status: Full Code Admission date: 08/17/2024 9:41 PM Hospital days: LOS: 4 days HISTORY OF PRESENT ILLNESS Amanda Reyna is a 69 y.o. 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 She was transferred the the [facility]U 08/20/24 s/p repair of AV fistula. Ms. Reyna presented 08/17/24 with numbness and parasthesias on the right face and RUE/RLE. LKW 1630 08/17. Pt was working on her car and her came home. She first developed a shocking sensation from her shoulder down to all her fingers. Fifteen minutes later, she developed right face numbness and right outer thigh tingling. Has also been dropping objects with her right arm, having trouble with fine motor movements. She went to OSH. CTH showed left parietal ICH. Initial BP reportedly was 130s. Telestroke done without NIH, transferred to [facility]. On arrival to [facility], CTH was stable and CTA unrevealing. She was admitted to [facility] and had a DCA on 08/19 which showed a AVF. She went to OR for AVF repair on 08/20 and was admitted to [facility] post-op. INTERVAL HISTORY SINCE ADMISSION 08/17: Admitted to MD, stable CTH 08/18: MRI with L parietal ICH, request DCA from [facility] [place] 08/19: DCA today, shows AV fistula 08/20: OR to repair AV fistula 08/21: increase mobility, incentive spirometry, CXR, stop MIVF, remove jalloh. Transfer to NSGY and floor. PHYSICAL EXAM GENERAL: awake, alert, lying in bed, no acute distress HEENT: face grossly symmetric CARDIO/VASCULAR: +S1S2, NSR on telemetry; no edema; 2+ distal pulses; capillary refill <3 seconds; PULM: clear to auscultation bilaterally, equal chest rise; ABDOMINAL: soft, nontender, nondistended, active bowel sounds NEURO: Mental status: alert; oriented to person, place, year, and month; good attention Speech/language: fluent; comprehension intact Motor: RUE 4/5, 5/5 strength of all extremities Sensation: Extremity sensation intact throughout. Coordination: without ataxia/dysmetria on FTS NIH Stroke Scale: NIH Level of Conciousness (Provider): 0 NIH LOC Questions (Provider): 0 NIH LOC Commands (Provider): 0 NIH Best Gaze (Provider): 0 NIH Visual (Provider): 0 NIH Facial Palsy (Provider): 0 NIH Left Arm Motor (Provider): 0 NIH Right Arm Motor (Provider): 1 NIH Left Leg Motor (Provider): 0 NIH Right Leg Motor (Provider): 0 NIH Limb Ataxia (Provider): 0 NIH Sensory (Provider): 0 NIH Best Language (Provider): 0 NIH Dysarthria (Provider): 0 NIH Extinction and Inattention (Provider): 0 NIH Total Score (Provider): 1 ASSESSMENT AND PLAN Neuro: 08/17/2024 - 08/20/2024 1 Day Post-Op AVF s/p left parietal craniotomy resection of SM2 AVM Hx 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 Negative intra-op angiogram following resection - Imaging: - 08/17 CT head: Acute left parietal intraparenchymal hematoma near vertex. - 08/17 CTA brain/neck: Patent vasculature. - 08/18 Repeat CTH 6H: Stable - 08/18 MRI: Shows left parietal ICH - 08/20 CTH: post op changes - Hemorrhage presumably 2/2 AV fistula etiology; evaluation for cause and source: - 08/17 LDL level 83; consider statin therapy (see cards) - 08/17 HA1C level 6.1 (see endo) - Start therapeutic anticoagulation when safe - TTE, urine drug screen, and hypercoagulability panel not indicated - Initiate VTE prophylaxis after bleed stability established (see heme) Concern for seizure: - 08/18 EEG unremarkable - Continue Keppra 1G BID, consider wean post AVF repair. Left parietal convexity fibrous meningioma s/p craniotomy/resection (09/13/09): - Hx of grade 1 L parietal convexity meningioma that was found incidentally during workup for dizziness and subsequently resected in 2009, had followup surveillance MRIs for ~2 years which were stable. Essential tremor: - Continue home primidone 50 mg QID - Continue home ropinirole Glaucoma: -Continue home latanoprost - Continue home timolol Pain/Sedation management: - Continue home gabapentin 400 mg TID - Tylenol 650mg Q4H PRN - Oxycodone 5 - 10 mg Q4H PRN Psych: Depression - Continue home bupropion 150 mg daily Pulm: No current issues O2 Sat (%): 96 % (08/21 0800) O2 Device: nasal cannula (08/21 1999) Flow (L/min): 3 (08/21 1999) - [id number], encourage pulmonary hygiene, mobility Cards: Afib RVR (improved) Temp: [97.8 F (36.6 C)-98.6 F (37 C)] 98 F (36.7 C) Pulse (Heart Rate): [52-80] 57 Resp Rate: [12-29] 19 BP: (90-169)/(48-85) 105/53 Arterial Line (1) BP: (92-145)/(54-72) 92/61 O2 Sat (%): [87 %-98 %] 96 % Blood pressure management: - Goal SBP <160, MAP >65 - Home antihypertensives: - Hydrochlorothiazide 25 mg daily - Current regimen: - PRN labetalol and hydralazine Afib: - 08/15 in the ER for a couple of hours due to A-Fib/RVR, they had considered cardioversion but she converted back spontaneously - Home regimen: - Rate/rhythm control: sotalol 80 mg BID (takes additional doses when she feels like she is in Afib) - Anticoagulation: none - Current regimen: - Rate/rhythm control: sotalol 80 mg BID - Anticoagulation: none HLD: No results for input(s): CHOLESTEROL, TRIG, HDL, LDLDIRECT in the last 72 hours. Diagnostics: - 08/17 ECG: NSR No results for input(s): HSTROP in the last 72 hours. Renal/: No current issues Fluid Balance: - removed Jalloh 08/21 (indication: I&O monitoring) - Maintenance: none Intake/Output Summary (Last 24 hours) at 08/21/2024 0847 Last data filed at 08/21/2024 0600 Gross per 24 hour Intake 3446.08 ml Output 5300 ml Net -1853.92 ml Net IO Since Admission: -50.87 mL [08/21/24 0847] Electrolyte balance: - Daily Chem 10; electrolytes replaced per NCCU protocol Recent Labs 08/20/24 0300 08/21/24 0205 SODIUM 140 139 POTASSIUM 4.2 4.1 CHLORIDE 104 101 CO2 25 32* BUN 8 8 CREATSERUM 0.66 0.57 MAGNESIUM 1.9 1.8 PHOSPHORUS 4.2 3.6 ICA -- 4.52* GI/Nutrition: Ulcerative colitis No results for input(s): ALBUMIN, BILIDIRECT, BILITOTAL, ALKPHOS, ALT, AST, TP, AMYLASE, LIPASE in the last 72 hours. Swallow/Nutrition management: - [place] Swallow Screening Result: passed=cleared for oral intake - DIET REGULAR - This patient does not have an active medication from one of the medication groupers. Bowel regimen: - Last Bowel Movement: 08/20/24 (per patient) - Senna 8.6 mg daily - Miralax daily UC: - takes ustekinumab (Stelara) outpatient - takes hyoscyamine 0.125 mg Q6H PRN Stress ulcer prophylaxis: - Pantoprazole (home med) Endo: No current issues Glycemic management: - Goal blood glucose 140-180 Recent Labs 08/20/24 0300 08/20/24 0651 08/20/24 1408 08/21/24 0205 GLUCOSE 101 99 120 125 ID: Chronic UTIs (on Keflex) Recent Labs 08/20/24 0300 08/21/24 0205 WBC 6.45 11.05 Temp (24hrs), Av.2 F (36.8 C), Min:97.8 F (36.6 C), Max:98.6 F (37 C) - Most recent and positive cultures: Date Collected Source Result Date Finalized - Antiinfectives: Start Date Antiinfective Coverage Course Length Stop Date 08/20 Ancef empiric 3 doses 08/21 08/21 keflex Chronic UTI Tbd- takes outpatient Heme/Onc: No current issues Recent Labs 08/19/24 0548 08/20/24 0300 08/21/24 0205 WBC 5.76 6.45 11.05 RBC 4.90 5.10* 4.57 HGB 13.0 13.5 12.1 HCT 42.1 45.1* 39.1 PLATELET 174 190 191 PT 13.2 12.5 -- PTT 25.4 24.8 -- INR 1.0 0.9 -- - Goal plt >100, INR <1.4, Hgb >7 DVT prophylaxis: - SCDs - lovenox pending nsgy Musc/Trauma: Acute deconditioning Risk for falls Deconditioning: - PT/OT consulted and following - Current Activity Order: AAT Fall Risk: - Assessed for patient fall risk and discussed safety measures during rounding. Complexity. Hypocalcemia - Continue to monitor and replete. Obesity, class I Body mass index is 33.06 kg/m . - Follow with PCP for dietary and lifestyle modifications. Wound Documentation Wound Surgical Sheath Site 08/19/24 1344 Right Femoral (Active) Date First Assessed/Time First Assessed: 08/19/24 1344 Primary Wound Type: Surgical Secondary WoundType - Surgical: Sheath Site Incision Closure/Dressing: Gauze;Tegaderm Wound Location Orientation: Right Location: Femoral Wound Surgical 08/20/24 1046 Posterior;Upper Head (Active) Date First Assessed/Time First Assessed: 08/20/24 1046 Primary Wound Type: Surgical Present on Original Admission: No Wound Location Orientation: Posterior;Upper Location: Head Wound Surgical Sheath Site 08/20/24 1314 Left Femoral (Active) Date First Assessed/Time First Assessed: 08/20/24 1314 Primary Wound Type: Surgical Secondary WoundType - Surgical: Sheath Site Present on Original Admission: No Incision Closure/Dressing: (c) Tegaderm;Gauze Wound Location Orientation: Left Lo... Wound Pressure Injury Suspected 08/20/24 1400 Buttocks (Active) Date First Assessed/Time First Assessed: 08/20/24 1400 Primary Wound Type: Pressure Injury Secondary Wound Type - Pressure Injury: Suspected Location: Buttocks Social/Dispo: - Code status: Full Code - Discharge planning per PCRM/SW. - 08/17: Medications reconciled ICU Checklist: [x] Assess pain Presence of Pain: reports pain/discomfort Presence of Pain Score (Auto-calculated): 0 [x] Both SAT & SBT [x] Choice of analgesia/ sedation See neuro [x] Delirium Overall CAM-ICU: Negative [x] Early mobility PT/OT consulted?: Yes CURRENT AM-PAC Mobility Raw Score: 8 CURRENT AM-PAC Mobility Functional Limitation: 86.62% Impaired in Basic Mobility [x] Family Engagement Primary Emergency Contact: farzaneh reyna Last updated: 08/21 at bedside [x] Get lines out [place]: inserted 08/20, (indication: HD monitoring), removed 08/20 Jalloh: inserted 08/20, (indication: I&O monitoring), removed 08/21 Rectal tube: inserted , (indication:) Enteral access: inserted /, [ ] gastric; [ ] post-pyloric CENTRAL LINES: Central Line Daily Indication(s) and Daily Review of Necessity 08/21/2024: If multiple lines, pleaseuse order shown above as reference when selecting line to be removed No central line in place Discussed with NCCU Attending, Dr. Saleem. KERI Shelton 08/21/24 8:47 AM Check the treatment team to find the assigned neurocritical care provider (resident, fellow, SUPERVISOR HOT DIP TINNING, orPA) or page/call the corresponding number below NCC1 (Beds [phone]): [place] # [phone], pager #[phone] NCC2 (Beds [phone], [address], and overflow): [place] #: [phone], pager #[phone] * Janis Liang MD - 08/20/2024 5:50 PM EDT The patient was seen and examined on 08/20/2024. The plan was formulated on the same day. Please refer to the MECHELLE note from the same day for additional details. Interval events: 08/17: NV admission for ICH 08/20 NCCU admission post AV fistula embolization. Examination: Awake, alert oriented and following commands Plan: Neurological: ICH S/P AVF embolization, Close neurological monitoring in the NCCU\ Postoperative blood pressure control < 140 Acute postoperative pain control Respiratory: RA Cardiology: Afib history No anticoagulation currently Hypertension management The patient is critically ill due to ICH S/P AVF embolization requiring close neurological and hemodynamic monitoring in the NCCU. Critical care time spent is 32 minutes. * Luci Granados APRN-PAPER DELIVERER - 08/20/2024 10:57 AM EDT NEUROCRITICAL CARE DAILY PROGRESS NOTE HOSPITAL VISIT DEMOGRAPHICS Patient: Amanda Reyna Code status: Full Code Admission date: 08/17/2024 9:41 PM Hospital days: LOS: 3 days HISTORY OF PRESENT ILLNESS Amanda Reyna is a 69 y.o. 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 She was transferred the the NCCU 08/20/24 s/p repair of AV fistula. Ms. Reyna presented 08/17/24 with numbness and parasthesias on the right face and RUE/RLE. LKW 1630 08/17. Pt was working on her car and her came home. She first developed a shocking sensation from her shoulder down to all her fingers. Fifteen minutes later, she developed right face numbness and right outer thigh tingling. Has also been dropping objects with her right arm, having trouble with fine motor movements. She went to OSH. CTH showed left parietal ICH. Initial BP reportedly was 130s. Telestroke done without NIH, [facility]. On arrival [facility], CTH was stable and CTA unrevealing. She was [facility] and had a DCA on 08/19 which showed a AVF. She went to OR for AVF repair on 08/20 and was admitted to NCCU post-op. INTERVAL HISTORY SINCE ADMISSION 08/17: Admitted to MD, stable CTH 08/18: MRI with L parietal ICH, request DCA from NS[facility] 08/19: DCA today, shows AV fistula 08/20: OR to repair AV fistula PHYSICAL EXAM GENERAL: awake, alert, lying in bed HEENT: face grossly symmetric CARDIO/VASCULAR: +S1S2, NSR on telemetry; no edema; 2+ distal pulses; capillary refill <3 seconds; PULM: clear to auscultation bilaterally, equal chest rise; ABDOMINAL: soft, nontender, nondistended, active bowel sounds NEURO: Mental status: alert; oriented to person, place, year, and month; good attention Speech/language: fluent; comprehension intact Motor: RUE 4/5, 5/5 strength of all extremities Sensation: Extremity sensation intact throughout. Coordination: without ataxia/dysmetria on FTS NIH Stroke Scale: NIH Level of Conciousness (Provider): 0 NIH LOC Questions (Provider): 0 NIH LOC Commands (Provider): 0 NIH Best Gaze (Provider): 0 NIH Visual (Provider): 0 NIH Facial Palsy (Provider): 0 NIH Left Arm Motor (Provider): 0 NIH Right Arm Motor (Provider): 1 NIH Left Leg Motor (Provider): 0 NIH Right Leg Motor (Provider): 0 NIH Limb Ataxia (Provider): 0 NIH Sensory (Provider): 0 NIH Best Language (Provider): 0 NIH Dysarthria (Provider): 0 NIH Extinction and Inattention (Provider): 0 NIH Total Score (Provider): 1 ASSESSMENT AND PLAN Neuro: 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 - 08/17 CTA brain/neck: Patent vasculature. - 08/18 Repeat CTH 6H: Stable - 08/18 MRI: Shows left parietal ICH - 08/19 CTH: post op changes - Hemorrhage presumably 2/2 AV fistula etiology; evaluation for cause and source: - 08/17 LDL level 83; consider statin therapy (see cards) - 08/17 HA1C level 6.1 (see endo) - Start therapeutic anticoagulation when safe - TTE, urine drug screen, and hypercoagulability panel not indicated - Initiate VTE prophylaxis after bleed stability established (see heme) Concern for seizure: - 08/18 EEG unremarkable - Continue Keppra 1G BID - can discontinue after AVF secured left parietal convexity fibrous meningioma s/p craniotomy/resection (09/13/09): - Hx of grade 1 L parietal convexity meningioma that was found incidentally during workup for dizziness and subsequently resected in 2009, had followup surveillance MRIs for ~2 years which were stable. Essential tremor: - Continue home primidone 50 mg QID - Continue home ropinirole Glaucoma: -Continue home latanoprost - Continue home timolol Pain/Sedation management: - Continue home gabapentin 400 mg TID - Tylenol 650mg Q4H PRN - Oxycodone 5 - 10 mg Q4H PRN Psych: Depression - Continue home bupropion 150 mg daily Pulm: No current issues O2 Sat (%): 96 % (08/20 1500) O2 Device: room air (08/20 1404) Cards: Afib RVR Temp: [97.3 F (36.3 C)-98.6 F (37 C)] 98.6 F (37 C) Pulse (Heart Rate): [61-80] 71 Resp Rate: [12-27] 12 BP: (100-169)/(50-85) 169/85 Arterial Line (1) BP: (141-145)/(64-72) 145/64 O2 Sat (%): [87 %-100 %] 96 % Blood pressure management: - Goal SBP <140, MAP >65 - Home antihypertensives: - Hydrochlorothiazide 25 mg daily - Current regimen: - PRN labetalol and hydralazine Afib: - 08/15 in the ER for a couple of hours due to A-Fib/RVR, they had considered cardioversion but she converted back spontaneously - Home regimen: - Rate/rhythm control: sotalol 80 mg BID (takes additional doses when she feels like she is in Afib) - Anticoagulation: none - Current regimen: - Rate/rhythm control: sotalol 80 mg BID - Anticoagulation: none HLD: Recent Labs 08/17/242201 CHOLESTEROL 159 TRIG 138 HDL 48 Diagnostics: - 08/17 ECG: NSR Recent Labs 08/17/242201 HSTROP <3 Renal/: No current issues Fluid Balance: - Continue Jalloh (indication: I&O monitoring) - Maintenance: 0.9NS w/ 20 KCl @ 75 mL/hr Intake/Output Summary (Last 24 hours) at 08/20/2024 1546 Last data filed at 08/20/2024 1415 Gross per 24 hour Intake 3745.83 ml Output 4200 ml Net -454.17 ml Net IO Since Admission: -396.82 mL [08/20/24 1546] Electrolyte balance: - Daily Chem 10; electrolytes replaced per NCCU protocol Recent Labs 08/19/24 0548 08/20/24 0300 SODIUM 140 140 POTASSIUM 4.2 4.2 CHLORIDE 103 104 CO2 30 25 BUN 9 8 CREATSERUM 0.61 0.66 MAGNESIUM 1.9 1.9 PHOSPHORUS 4.5 4.2 GI/Nutrition: Ulcerative colitis Recent Labs 08/17/242201 ALBUMIN 3.4* BILIDIRECT 0.1 BILITOTAL 0.4 ALKPHOS 46 ALT 16 AST 17 TP 5.7* Swallow/Nutrition management: - [place] Swallow Screening Result: passed=cleared for oral intake - DIET REGULAR - This patient does not have an active medication from one of the medication groupers. Bowel regimen: - Last Bowel Movement: 08/17/24 - Senna 8.6 mg daily - Miralax daily UC: - takes ustekinumab (Stelara) outpatient - takes hyoscyamine 0.125 mg Q6H PRN Stress ulcer prophylaxis: - Pantoprazole (home med) Endo: No current issues Glycemic management: - Goal blood glucose 140-180 Recent Labs 08/17/24 2202 08/18/24 0239 08/19/24 0601 08/20/24 0001 08/20/24 0300 08/20/24 0651 GLUCOSE 109 < > 109 111 101 99 HGBA1C 6.1* -- -- -- -- -- < > = values in this interval not displayed. ID: No current issues Recent Labs 08/19/24 0548 08/20/24 0300 WBC 5.76 6.45 Temp (24hrs), Av.2 F (36.8 C), Min:97.3 F (36.3 C), Max:98.6 F (37 C) - Most recent and positive cultures: Date Collected Source Result Date Finalized - Antiinfectives: Start Date Antiinfective Coverage Course Length Stop Date Heme/Onc: No current issues Recent Labs 08/19/24 0548 08/20/24 0300 WBC 5.76 6.45 RBC 4.90 5.10* HGB 13.0 13.5 HCT 42.1 45.1* PLATELET 174 190 PT 13.2 12.5 PTT 25.4 24.8 INR 1.0 0.9 - Goal plt >100, INR <1.4, Hgb >7 DVT prophylaxis: - SCDs Musc/Trauma: Acute deconditioning Risk for falls Deconditioning: - PT/OT consulted and following - Current Activity Order: AAT Fall Risk: - Assessed for patient fall risk and discussed safety measures during rounding. Complexity. Hypocalcemia - Continue to monitor and replete. Obesity, class I Body mass index is 33.06 kg/m . - Follow with PCP for dietary and lifestyle modifications. Wound Documentation Wound Surgical Sheath Site 08/19/24 1344 Right Femoral (Active) Date First Assessed/Time First Assessed: 08/19/24 1344 Primary Wound Type: Surgical Secondary WoundType - Surgical: Sheath Site Incision Closure/Dressing: Gauze;Tegaderm Wound Location Orientation: Right Location: Femoral Wound Surgical Sheath Site 08/20/24 1314 Left Femoral (Active) Date First Assessed/Time First Assessed: 08/20/24 1314 Primary Wound Type: Surgical Secondary WoundType - Surgical: Sheath Site Present on Original Admission: No Incision Closure/Dressing: (c) Tegaderm;Gauze Wound Location Orientation: Left Lo... Social/Dispo: - Code status: Full Code - Discharge planning per PCRM/SW. - 08/17: Medications reconciled ICU Checklist: [x] Assess pain Presence of Pain: reports pain/discomfort Presence of Pain Score (Auto-calculated): 0 [x] Both SAT & SBT [x] Choice of analgesia/ sedation See neuro [x] Delirium Overall CAM-ICU: Negative [x] Early mobility PT/OT consulted?: Yes CURRENT AM-PAC Mobility Raw Score: 19 CURRENT AM-PAC Mobility Functional Limitation: 41.77% Impaired in Basic Mobility [x] Family Engagement Primary Emergency Contact: farzaneh reyna Last updated: 08/20 at bedside [x] Get lines out [place]: inserted 08/20, (indication: HD monitoring) Jalloh: inserted 08/20, (indication: I&O monitoring) Rectal tube: inserted , (indication:) Enteral access: inserted /, [ ] gastric; [ ] post-pyloric CENTRAL LINES: Central Line Daily Indication(s) and Daily Review of Necessity 08/20/2024: If multiple lines, pleaseuse order shown above as reference when selecting line to be removed No central line in place Discussed with NCCU Attending, Dr. Liang. KERI Lundberg 08/20/24 3:46 PM Check the treatment team to find the assigned neurocritical care provider (resident, fellow, SUPERVISOR HOT DIP TINNING, orPA) or page/call the corresponding number below NCC1 (Beds [phone]): Kyle # [phone], pager #[phone] NCC2 (Beds [phone], [address], and overflow): [place] #: [phone], pager #[phone] * Jammie Cope - 08/20/2024 10:21 AM EDT Occupational Therapy Attempt Note 08/20/2024 OT Therapy Completed: Attempted Attempted Reason: Patient is unavailable due to test/procedure Jammie Cope Time In: 1021 Time Out: 1021 Total Visit Time: 0 minutes Total Treatment Time (skilled, billable minutes): 0 minutes Cosigned by Joseluis Beverly OT at 08/20/2024 10:49 AM EDT * ENRIQUETA Jensen - 08/20/2024 10:02 AM EDT Patient off the floor for procedure. Spouse and son in room and spouse preferred [facility] location in [place] for the OP PT. Referral will need to be faxed to [phone] at discharge. Facility location and contact added toAVS. Patient will probably will need a post hospital follow up with Neurosurgery and cooresponding\ MRI. CM reached out to Neurosurgery and no MRI needed, CM requested NV discontinue the order. Neurosurgery to schedule 2 week follow up. HODAN Jensen, ENRIQUETA [employer] Available by Secure Chat * Idalia Alvarez PT - 08/20/2024 8:06 AM EDT Physical Therapy Attempt Note 08/20/2024 PT Therapy Completed: Attempted Attempted Reason: Patient is unavailable due to test/procedure (OR) Idalia Alvarez PT Time In: 805 Time Out: 0806 Total Visit Time: 0 minutes Total Treatment Time (skilled, billable minutes): 0 minutes * Miguelito Watts MD - 08/20/2024 7:35 AM EDT Images from the original note were not included. NEUROVASCULAR STROKE SERVICE Daily Progress Note IDENTIFYING INFORMATION Amanda Reyna MR# [id number] 08/20/2024 HISTORY OF PRESENT ILLNESS Amanda Reyna is a 69 y.o. 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 LKW 1630 08/17. Pt was working on her car and her came home. She first developed a shocking sensation from her shoulder down to all her fingers. Fifteen minutes later, she developed right facenumbness and right outer thigh tingling. Has also been dropping objects with her right arm, having trouble with fine motor movements. Denies headache, nausea, vomiting, photophobia, slurred speech, word-finding difficulties, or facial droop. Went to OSH. CTH showed left parietal ICH. Initial BP reportedly was 130s. Telestroke done without NIH, [facility]. On [facility], CTH was stable and CTA unrevealing. Aykaa Of note, takes ASA 81 mg daily. Previously took Eliquis for PE, reportedly not A-Fib but was told by her principal scientist that she was too high risk to take Eliquis due to her history of craniotomy. Had two falls in Jul, 2024 without head strike. She notes that last Friday she was in the ER for a couple of hours due to A-Fib/RVR, they had considered cardioversion but she converted back spontaneously.She takes sotalol for this and has been told to take an extra dose when she feels like she is in A-Fib. No hx of malignancy. Hx of grade 1 L parietal convexity meningioma that was found incidentally during workup for dizziness and subsequently resected in 2009, had followup surveillance MRIs for ~2years which were stable. No known personal or family history of bleeding or clotting disorders. No personal history of bleed or stroke. INTERVAL HISTORY 08/17: Admitted to MD, stable CTH 08/18: MRI with L parietal ICH, request DCA from [facility] [place] 08/19: DCA today, shows AV fistula 08/20: Plan for OR to repair AV fistula VITAL SIGNS Temp: [97.3 F (36.3 C)-98.6 F (37 C)] 98.4 F (36.9 C) Pulse (Heart Rate): [62-76] 63 Resp Rate: [14-27] 23 BP: (100-135)/(50-71) 104/52 O2 Sat (%): [90 %-100 %] 95 % Oxygen Therapy: Oxygen Therapy O2 Sat (%): 95 % O2 Device: nasal cannula Flow (L/min): 2 Intake/Output: Intake/Output Summary (Last 24 hours) at 08/20/2024 0736 Last data filed at 08/20/2024 0625 Gross per 24 hour Intake 1645.83 ml Output -- Net 1645.83 ml PHYSICAL EXAM Did not examine prior going to OR, below is exam from 08/19 General Physical Exam General: NAD, lying comfortably in chair HENT: Normal oropharynx and mucosa. Normal external appearance of ears and nose. CV/Chest: Regular rate and rhythm, normal S1S2 Lungs: No audible wheezing. Normal work of breathing. No accessory muscle use Abdomen: Non distended, non tender Extremities: Warm and well perfused. No appreciable edema, cyanosis or deformity. Skin: No rash. Normal palpation of skin. Musculoskeletal: No joint tenderness. Normal digits and nails by inspection. No clubbing. Neurologic Examination Mental status/Cognition: alert; oriented to month and age; good attention; no apparent neglect Speech/language: fluent; comprehension intact; object naming intact; repetition intact Cranial nerves: CN II Visual muhammad full to confrontation without visual extinction CN III,IV, PERRL. EOMI. CN V Facial sensation intact to light touch bilaterally in V1, V2, V3 CN VII Face, Smile, Eyebrow raise/closure symmetric. CN VIII Hearing grossly intact to voice CN IX & X Soft palate elevates symmetrically in the midline, no dysarthria CN XI Shoulder shrug with full strength CN XII Tongue protrudes midline Motor: Normal bulk and tone. Reduced finger tapping on right side. No drift in all extremities, butdid have pronator drift on RUE. SA EE EF WE WF DI HF KE KF DF PF Right 4 4 4 5 5 5 5 5 Left 5 5 5 5 5 5 5 5 Sensation: intact to light touch throughout without extinction Coordination/Complex Motor: - Pchzjc-aw-bhey intact bilaterally without dysmetria - Zdha-jo-fvfi intact bilaterally without dysmetria NIHSS 08/20/2024 Provider NIH Stroke Scale NIH Interval (Provider): daily NIH Level of Conciousness (Provider): 0 NIH LOC Questions (Provider): 0 NIH LOC Commands (Provider): 0 NIH Best Gaze (Provider): 0 NIH Visual (Provider): 0 NIH Facial Palsy (Provider): 0 NIH Left Arm Motor (Provider): 0 NIH Right Arm Motor (Provider): 0 NIH Left Leg Motor (Provider): 0 NIH Right Leg Motor (Provider): 0 NIH Limb Ataxia (Provider): 0 NIH Sensory (Provider): 1 NIH Best Language (Provider): 0 NIH Dysarthria (Provider): 0 NIH Extinction and Inattention (Provider): 0 NIH Total Score (Provider): 1 MEDICATIONS Gabapentin 400 mg Oral TID Latanoprost 1 drop Both Eyes QHS levETIRAcetam 1,000 mg Oral Q12H Pantoprazole 40 mg Oral Daily Primidone 50 mg Oral 4x daily rOPINIRole 0.25 mg Oral QAM rOPINIRole 0.5 mg Oral 2 times per day Senna 8.6 mg Oral Daily Or Senna 8.6 mg Per NG tube Daily Sotalol 80 mg Oral Q12HNS Timolol maleate 1 drop Left Eye Daily LABS/CULTURES Lab Results Component Value Date WBC 6.45 08/20/2024 HGB 13.5 08/20/2024 HCT 45.1 (H) 08/20/2024 PLATELET 190 08/20/2024 MCV 88.4 08/20/2024 Lab Results Component Value Date SODIUM 140 08/20/2024 POTASSIUM 4.2 08/20/2024 CHLORIDE 104 08/20/2024 CO2 25 08/20/2024 BUN 8 08/20/2024 CREATSERUM 0.66 08/20/2024 GLUCOSE 99 08/20/2024 Lab Results Component Value Date CHOLESTEROL 159 08/17/2024 TRIG 138 08/17/2024 HDL 48 08/17/2024 LDLCALC 83 08/17/2024 Lab Results Component Value Date HGBA1C 6.1 (H) 08/17/2024 Lab Results Component Value Date ALBUMIN 3.4 (L) 08/17/2024 , No results found for: CPK, TROP IMAGING/DIAGNOSTIC STUDIES PV FLUOROSCOPY OR CT HEAD WITHOUT CONTRAST Final Result IMPRESSION: No significant interval change. Stable left parietal lobe hematoma. BRAIN WITH AND WITHOUT CONTRAST Final Result IMPRESSION: 1. Grossly stable size of left [...] I have reviewed and approved this report. HEAD WITHOUT CONTRAST Final Result IMPRESSION: Stable intraparenchymal hematoma involving the left parietal lobe. No new hemorrhage. STROKE ANGIO BRAIN/NECK Final Result IMPRESSION: 1. Widely patent cervical and intracranial arterial vasculature. 2. No evidence of aneurysm, vascular malformation, or active bleeding. I personally viewed and interpreted these images and I have reviewed and approved this report. STROKE HEAD-STROKE ALERT ONLY Final Result IMPRESSION: 1. Acute left parietal intraparenchymal hematoma near vertex. 2. No significant midline shift, herniation, hydrocephalus. 3. Suspect remote left basal ganglial lacunar insults. Correlate with outside imaging to ensure stability. Findings were discussed with Ana Lilia Hurley DO at 2157 on 08/17/2024. I personally viewed and interpreted these images and I have reviewed and approved this report. 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 - CTA brain/neck: Patent vasculature. - Repeat CTH 6H: Stable - Repeat CTH 24H: Stable - MRI: Shows left parietal ICH - SBP: <140 - LDL: 83 - A1C: 6.1 - TTE: Not ordered - Statin therapy: Start if vascular malformation eval unrevealing - Antiplatelet therapy: Recs per NSG - Anticoagulation: Not on AC at home, will be able to start once AV fistula secured - DVT ppx: Recs per NSG - Dispo: Home - NSG consulted for DCA to evaluate for vascular malformation, shows AV fisutla - Plan for OR tomorrow Hemorrhagic stroke core measures - NIHSS on admission: 1 - ICH volume: 3.31, ICH score: 0 - Started on mechanical (SCDs) DVT prophylaxis; --- pharmacological (SQ heparin/Lovenox) prophylaxis can be started after repeat CTH stable and NS approval - Antiplatelet and anticoagulation therapy not indicated - LDL (83) and HgbA1c (6.1) were checked and the patient will be discharged on a lipid lowering statin medication if LDL > 70 - Dysphagia screening ordered, and will be completed prior to patient receiving oral intake - Stroke education booklet has been ordered and will be provided by the RN that includes both written and verbal education to the patient and/or family regarding hemorrhagic strokes. We have reviewedthe patient's personal modifiable risk factors, and will provide education on reducing these risk factors - Patient will be assessed for rehab by PT/OT/Speech and PM&R if indicated Acute Medical Conditions Concern for seizure - Pt with progressive positive phenomenon in RUE>RLE and R face, ?fluctuating - EEG unrevealing - Start Keppra 1000 mg BID, can discontinue after fistula is secured Laboratory Abnormalities Chronic Medical Conditions HTN - hold hydrochlorothiazide 25 mg daily, fold in if needed Afib - continue sotalol 80 mg BID, hold home ASA 81 mg Glaucoma - Cont latanoprost and timolol eye drops Mood disorder - Hold wellbutrin 150 mg XL for now, okay to restart when AV fistula secured RLS - cont ropinirole 0.25 mg in AM and 0.5 mg in afternoon and night GERD - cont pantoprazole Chronic LBP - cont gabapentin 400 mg TID, Percocet Q6H PRN ET - cont primidone 50 mg 4x daily Crohn's disease - on Stelara Eczema, vaginal dryness, 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 Victor, during daily rounds. 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 draining to sagittal sinus Objective Temp: [97.3 F (36.3 C)-98.6 F (37 C)] 98.4 F (36.9 C) Pulse (Heart Rate): [62-76] 63 Resp Rate: [14-27] 23 BP: (100-135)/(50-71) 104/52 O2 Sat (%): [90 %-100 %] 95 % PHYSICAL EXAM -- AOx3 -- FCx4 -- PERRL, EOMI -- FS, TM -- MAEW, symmetric -- 5/5 strength in BUE/BLE -- Some paresthesias noted to the RUE -- R groin soft, dressing taken down WBC/Hgb/Hct/Plts: 6.45/13.5/45.1/190 (08/20 299) Na/K+/Phos/Mg/Ca: 140/4.2/4.2/1.9/-- (08/20 299) Bun/Creat/Cl/CO2/Glucose: 8/0.66/104/25/101 (08/20 299) Lab Results Component Value Date INR 0.9 08/20/2024 INR 1.0 08/19/2024 INR 1.1 08/18/2024 PT 12.5 08/20/2024 PT 13.2 08/19/2024 PT 13.9 08/18/2024 Intake/Output Summary (Last 24 hours) at 08/20/2024 0546 Last data filed at 08/20/2024 0500 Gross per 24 hour Intake 0 ml Output -- Net 0 ml Medications Lactated ringers 75 mL/hr at 08/19/24 2141 Gabapentin 400 mg Oral TID Latanoprost 1 drop Both Eyes QHS levETIRAcetam 1,000 mg Oral Q12H Magnesium sulfate 1 g Intravenous Once Pantoprazole 40 mg Oral Daily Primidone 50 mg Oral 4x daily rOPINIRole 0.25 mg Oral QAM rOPINIRole 0.5 mg Oral 2 times per day Senna 8.6 mg Oral Daily Or Senna 8.6 mg Per NG tube Daily Sotalol 80 mg Oral Q12HNS Timolol maleate 1 drop Left Eye Daily Assessment/Plan 69 y.o. female w/ a phx of Crohn's, L parietal craniotomy for meningioma resection (2009) currentlyon ASA for CAD, LD 08/17 AM who presents as a hemorrhagic stroke alert, ICH score of 0 and HCT demonstrating a 2.4 x 1.9 x 2.5 cm L parietal ICH w/o MLS or ME. She is intact on exam except intermittent numbness on the R side ranging from the chin to the lateral thigh. NIH 1. MRI brain completed and reviewed confirming no underlying contrast enhancement. 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 Mcdonald CVS: -- SBP<160 Respiratory: -- O2 as needed, IS FEN/GI: -- NPO Prophy: -- SCDs, SQ DVT prophy held Dispo: pend OR Please page NS2 ([phone]) with questions Complexity. Hypocalcemia - Continue to monitor and replete. Obesity, class I Body mass index is 33.06 kg/m . - Follow with PCP for dietary and lifestyle modifications. Wound Documentation Wound Surgical Sheath Site 08/19/24 1344 Right Femoral (Active) Date First Assessed/Time First Assessed: 08/19/24 1344 Primary Wound Type: Surgical Secondary WoundType - Surgical: Sheath Site Incision Closure/Dressing: Gauze;Tegaderm Wound Location Orientation: Right Location: Femoral Any conditions listed below are present on admission unless otherwise specified. . Cosigned by Marian Mcdonald MD at 08/20/2024 7:40 AM EDT Associated attestation - Marian Mcdonald MD - 08/20/2024 7:40 AM EDT I reviewed all pertinent notes, imaging, and laboratory work in the medical record. I personally saw and examined the patient and discussed the case with resident. I agree with the findings and plan,as stated below. MCA to cortical vein fistula - no definitive nidus or dural fistulous point. Plan for open ligationtoday. NPO. Marian Mcdonald MD Wardrobe Supervisor of Neurological Surgery [id number] * Miguelito Watts MD - 08/19/2024 2:41 PM EDT Images from the original note were not included. NEUROVASCULAR STROKE SERVICE Daily Progress Note IDENTIFYING INFORMATION Amanda Reyna MR# [id number] 08/19/2024 HISTORY OF PRESENT ILLNESS Amanda Reyna is a 69 y.o. 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 LKW 1630 08/17. Pt was working on her car and her came home. She first developed a shocking sensation from her shoulder down to all her fingers. Fifteen minutes later, she developed right facenumbness and right outer thigh tingling. Has also been dropping objects with her right arm, having trouble with fine motor movements. Denies headache, nausea, vomiting, photophobia, slurred speech, word-finding difficulties, or facial droop. Went to OSH. CTH showed left parietal ICH. Initial BP reportedly was 130s. Telestroke done without NIH, transferred to [facility]. On arrival to [facility], CTH was stable and CTA unrevealing. Amitte Of note, takes ASA 81 mg daily. Previously took Eliquis for PE, reportedly not A-Fib but was told by her principal scientist that she was too high risk to take Eliquis due to her history of craniotomy. Had two falls in Jul, 2024 without head strike. She notes that last Friday she was in the ER for a couple of hours due to A-Fib/RVR, they had considered cardioversion but she converted back spontaneously.She takes sotalol for this and has been told to take an extra dose when she feels like she is in A-Fib. No hx of malignancy. Hx of grade 1 L parietal convexity meningioma that was found incidentally during workup for dizziness and subsequently resected in 2009, had followup surveillance MRIs for ~2years which were stable. No known personal or family history of bleeding or clotting disorders. No personal history of bleed or stroke. INTERVAL HISTORY 08/17: Admitted to [facility], stable CTH 08/18: MRI with L parietal ICH, request DCA from [facility] [place] 08/19: DCA today, shows AV fistula VITAL SIGNS Temp: [97.8 F (36.6 C)-98.2 F (36.8 C)] 97.8 F (36.6 C) Pulse (Heart Rate): [60-77] 74 Resp Rate: [16-24] 16 BP: (93-115)/(50-58) 115/57 O2 Sat (%): [92 %-100 %] 96 % Oxygen Therapy: Oxygen Therapy O2 Sat (%): 96 % O2 Device: room air Flow (L/min): 2 Intake/Output: No intake or output data in the 24 hours ending 08/19/24 1441 PHYSICAL EXAM General Physical Exam General: NAD, lying comfortably in chair HENT: Normal oropharynx and mucosa. Normal external appearance of ears and nose. CV/Chest: Regular rate and rhythm, normal S1S2 Lungs: No audible wheezing. Normal work of breathing. No accessory muscle use Abdomen: Non distended, non tender Extremities: Warm and well perfused. No appreciable edema, cyanosis or deformity. Skin: No rash. Normal palpation of skin. Musculoskeletal: No joint tenderness. Normal digits and nails by inspection. No clubbing. Neurologic Examination Mental status/Cognition: alert; oriented to month and age; good attention; no apparent neglect Speech/language: fluent; comprehension intact; object naming intact; repetition intact Cranial nerves: CN II Visual muhammad full to confrontation without visual extinction CN III,IV, PERRL. EOMI. CN V Facial sensation intact to light touch bilaterally in V1, V2, V3 CN VII Face, Smile, Eyebrow raise/closure symmetric. CN VIII Hearing grossly intact to voice CN IX & X Soft palate elevates symmetrically in the midline, no dysarthria CN XI Shoulder shrug with full strength CN XII Tongue protrudes midline Motor: Normal bulk and tone. Reduced finger tapping on right side. No drift in all extremities, butdid have pronator drift on RUE. SA EE EF WE WF DI HF KE KF DF PF Right 4 4 4 5 5 5 5 5 Left 5 5 5 5 5 5 5 5 Sensation: intact to light touch throughout without extinction Coordination/Complex Motor: - [id number] intact bilaterally without dysmetria - Lgyg-wz-pokp intact bilaterally without dysmetria NIHSS 08/19/2024 Provider NIH Stroke Scale NIH Interval (Provider): daily NIH Level of Conciousness (Provider): 0 NIH LOC Questions (Provider): 0 NIH LOC Commands (Provider): 0 NIH Best Gaze (Provider): 0 NIH Visual (Provider): 0 NIH Facial Palsy (Provider): 0 NIH Left Arm Motor (Provider): 0 NIH Right Arm Motor (Provider): 0 NIH Left Leg Motor (Provider): 0 NIH Right Leg Motor (Provider): 0 NIH Limb Ataxia (Provider): 0 NIH Sensory (Provider): 1 NIH Best Language (Provider): 0 NIH Dysarthria (Provider): 0 NIH Extinction and Inattention (Provider): 0 NIH Total Score (Provider): 1 MEDICATIONS [Transfer Hold] Gabapentin 400 mg Oral TID [Transfer Hold] Lactated ringers 500 mL Intravenous Once [Transfer Hold] Latanoprost 1 drop Both Eyes QHS [Transfer Hold] levETIRAcetam 1,000 mg Oral Q12H [Transfer Hold] Pantoprazole 40 mg Oral Daily [Transfer Hold] Primidone 50 mg Oral 4x daily [Transfer Hold] rOPINIRole 0.25 mg Oral QAM [Transfer Hold] rOPINIRole 0.5 mg Oral 2 times per day [Transfer Hold] Senna 8.6 mg Oral Daily Or [Transfer Hold] Senna 8.6 mg Per NG tube Daily [Transfer Hold] Sotalol 80 mg Oral Q12HNS [Transfer Hold] Timolol maleate 1 drop Left Eye BID LABS/CULTURES Lab Results Component Value Date WBC 5.76 08/19/2024 HGB 13.0 08/19/2024 HCT 42.1 08/19/2024 PLATELET 174 08/19/2024 MCV 85.9 08/19/2024 Lab Results Component Value Date SODIUM 140 08/19/2024 POTASSIUM 4.2 08/19/2024 CHLORIDE 103 08/19/2024 CO2 30 08/19/2024 BUN 9 08/19/2024 CREATSERUM 0.61 08/19/2024 GLUCOSE 109 08/19/2024 Lab Results Component Value Date CHOLESTEROL 159 08/17/2024 TRIG 138 08/17/2024 HDL 48 08/17/2024 LDLCALC 83 08/17/2024 Lab Results Component Value Date HGBA1C 6.1 (H) 08/17/2024 Lab Results Component Value Date ALBUMIN 3.4 (L) 08/17/2024 , No results found for: CPK, TROP IMAGING/DIAGNOSTIC STUDIES CT HEAD WITHOUT CONTRAST Final Result IMPRESSION: No significant interval change. Stable left parietal lobe hematoma. BRAIN WITH AND WITHOUT CONTRAST Final Result IMPRESSION: 1. Grossly stable size of left [...] I have reviewed and approved this report. HEAD WITHOUT CONTRAST Final Result IMPRESSION: Stable intraparenchymal hematoma involving the left parietal lobe. No new hemorrhage. STROKE ANGIO BRAIN/NECK Final Result IMPRESSION: 1. Widely patent cervical and intracranial arterial vasculature. 2. No evidence of aneurysm, vascular malformation, or active bleeding. I personally viewed and interpreted these images and I have reviewed and approved this report. STROKE HEAD-STROKE ALERT ONLY Final Result IMPRESSION: 1. Acute left parietal intraparenchymal hematoma near vertex. 2. No significant midline shift, herniation, hydrocephalus. 3. Suspect remote left basal ganglial lacunar insults. Correlate with outside imaging to ensure stability. Findings were discussed with Ana Lilia Hurley DO at 2157 on 08/17/2024. I personally viewed and interpreted these images and I have reviewed and approved this report. 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 - CTA brain/neck: Patent vasculature. - Repeat CTH 6H: Stable - Repeat CTH 24H: Stable - MRI: Shows left parietal ICH - SBP: <140 - LDL: 83 - A1C: 6.1 - TTE: Not ordered - Statin therapy: Start if vascular malformation eval unrevealing - Antiplatelet therapy: Recs per NSG - Anticoagulation: Not on AC at home, will be able to start once AV fistula secured - DVT ppx: Recs per NSG - Dispo: Home - NSG consulted for DCA to evaluate for vascular malformation, shows AV fisutla - Plan for OR tomorrow Hemorrhagic stroke core measures - NIHSS on admission: 1 - ICH volume: 3.31, ICH score: 0 - Started on mechanical (SCDs) DVT prophylaxis; --- pharmacological (SQ heparin/Lovenox) prophylaxis can be started after repeat CTH stable and NS approval - Antiplatelet and anticoagulation therapy not indicated - LDL (83) and HgbA1c (6.1) were checked and the patient will be discharged on a lipid lowering statin medication if LDL > 70 - Dysphagia screening ordered, and will be completed prior to patient receiving oral intake - Stroke education booklet has been ordered and will be provided by the RN that includes both written and verbal education to the patient and/or family regarding hemorrhagic strokes. We have reviewedthe patient's personal modifiable risk factors, and will provide education on reducing these risk factors - Patient will be assessed for rehab by PT/OT/Speech and PM&R if indicated Acute Medical Conditions Concern for seizure - Pt with progressive positive phenomenon in RUE>RLE and R face, ?fluctuating - EEG unrevealing - Start Keppra 1000 mg BID Laboratory Abnormalities Chronic Medical Conditions HTN - hold hydrochlorothiazide 25 mg daily, fold in as able Afib - continue sotalol 80 mg BID, hold home ASA 81 mg Glaucoma - Cont latanoprost and timolol eye drops Mood disorder - Hold wellbutrin 150 mg XL for now, okay to restart when AV fistula secured RLS - cont ropinirole 0.25 mg in AM and 0.5 mg in afternoon and night GERD - cont pantoprazole Chronic LBP - cont gabapentin 400 mg TID, Percocet Q6H PRN ET - cont primidone 50 mg 4x daily Crohn's disease - on Stelara Eczema, vaginal dryness, 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 Victor, during daily rounds. Signed, Miguelito Watts MD Neurology, PGY2 Cosigned by Pratibha Victor MD at 08/23/2024 6:00 PM EDT * Pratibha Victor MD - 08/19/2024 11:37 AM EDT I saw and independently examined the patient on 08/19/2024. I agree with the history, examination, and medical decision making as outlined. In addition, please see below. Neurosynopsis Briefly, this is a 69 y.o. yo female with a PMH of afib (not on AC, unclear reasons), PE, prior L parietal meningioma s/p crani in 2009 presenting with R hemibody hypoaesthesia found to have a R parietal ICH . At baseline, patient has no deficits with an mRS of 0. LKW 4:30 pm on 08/17. Neuroexam upon arrival had decreased sensation of L face/arm /leg. CTH showed a L parietal lobar ICH . CTA head/neck showed no actue findings 24 hour events: DSA today confirmed dAVF. Plan for OR tomorrow. EEG without ED. Exam Vitals: Temp: [97.8 F (36.6 C)-98.2 F (36.8 C)] 97.8 F (36.6 C) Pulse (Heart Rate): [60-77] 74 Resp Rate: [16-25] 16 BP: (93-115)/(50-78) 115/57 O2 Sat (%): [92 %-100 %] 96 % Gen: NAD, comfortable. Neuro: (not able to be examined as patient in DSA), exam per resident MS- Awake, alert, oriented x 3, attentive. Able to name and repeat. Follows commands. Normal fluency. No dysathria. No apraxia. No signs of neglect. CN- VFF, EOMI, no facial weakness, nml facial sensation. M- nml bulk/tone. LUE 5/5, RUE 5/5, LLE 5/5, RLE 5/5. R parietal ICH S- dysaesthesia of LUE. C- no appendicular dysmetria. Medications [Transfer Hold] Gabapentin 400 mg Oral TID [Transfer Hold] Lactated ringers 500 mL Intravenous Once [Transfer Hold] Latanoprost 1 drop Both Eyes QHS [Transfer Hold] levETIRAcetam 1,000 mg Oral Q12H [Transfer Hold] Pantoprazole 40 mg Oral Daily [Transfer Hold] Primidone 50 mg Oral 4x daily [Transfer Hold] rOPINIRole 0.25 mg Oral QAM [Transfer Hold] rOPINIRole 0.5 mg Oral 2 times per day [Transfer Hold] Senna 8.6 mg Oral Daily Or [Transfer Hold] Senna 8.6 mg Per NG tube Daily [Transfer Hold] Sotalol 80 mg Oral Q12HNS [Transfer Hold] Timolol maleate 1 drop Left Eye BID Assessment/Plan #L parietal lobar 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 -negative routine EEG -obtain 6 hour and 24 hour CTH: stable -fu MRI brain w/wo contrast negative. -CTA normal. DSA confirmed dAVF, -plan for crani tomorrow for obliteralition of dAVF -SBP<160, map >65 -no AC/AP -platelts >100, INR <1.5 #glaucomea - cot eye drops #depresion -hold well butrin given concern for seizure #afib -CHADSVASC is 3 -no AC for now, will need to discuss watchman vs AC as an outpatient. Will depend on determination of casue fo ICH -continue home sotalol #HTN -restart home meds #RLS -cont home ropirnole #ET -cont homeprimidone #crohns disease #? JANNETH -outpatien sleep study #prophylaxis: DVT-SCDs, continue to hold chem proph ; GI-bowel reg Pratibha Victor MD Vascular Neurology [facility] * Idalia Alvarez, PT - 08/19/2024 10:40 AM EDT Physical Therapy Attempt Note 08/19/2024 PT Therapy Completed: Attempted Attempted Reason: Patient is unavailable due to test/procedure Idalia Alvarez, PT Time In: 1040 Time Out: 1040 Total Visit Time: 0 minutes Total Treatment Time (skilled, billable minutes): 0 minutes * Arvin Guillaume MD - 08/19/2024 6:05 AM EDT Subjective No acute overnight events Objective Temp: [98.1 F (36.7 C)-98.2 F (36.8 C)] 98.2 F (36.8 C) Pulse (Heart Rate): [60-77] 65 Resp Rate: [20-25] 24 BP: (93-114)/(49-78) 108/52 O2 Sat (%): [92 %-99 %] 96 % PHYSICAL EXAM -- AOx3 -- FCx4 -- PERRL, EOMI -- FS, TM -- MAEW, symmetric -- 5/5 strength in BUE/BLE -- Sensation to light touch intact in BLE/BUE WBC/Hgb/Hct/Plts: 6.26/12.7/41.5/194 (08/18 638) Na/K+/Phos/Mg/Ca: 137/3.6/4.5/1.5/8.0 (08/18 638) Bun/Creat/Cl/CO2/Glucose: 8/0.54/103/25/109 (08/18 638-08/19 600) Lab Results Component Value Date INR 1.1 08/18/2024 INR 1.0 08/17/2024 PT 13.9 08/18/2024 PT 13.5 08/17/2024 Intake/Output Summary (Last 24 hours) at 08/19/2024 0605 Last data filed at 08/18/2024 1300 Gross per 24 hour Intake 100 ml Output 280 ml Net -180 ml Medications Lactated ringers 75 mL/hr (08/19/24 0034) Gabapentin 400 mg Oral TID Lactated ringers 500 mL Intravenous Once Latanoprost 1 drop Both Eyes QHS levETIRAcetam 1,000 mg Oral Q12H Pantoprazole 40 mg Oral Daily Primidone 50 mg Oral 4x daily rOPINIRole 2.5 mg Oral QHS Senna 8.6 mg Oral Daily Or Senna 8.6 mg Per NG tube Daily Sotalol 80 mg Oral Q12HNS Timolol maleate 1 drop Left Eye BID Assessment/Plan 69 y.o. female w/ a phx of Crohn's, L parietal craniotomy for meningioma resection (2009) currentlyon ASA for CAD, LD 6/10 AM who presents as a hemorrhagic stroke alert, ICH score of 0 and HCT demonstrating a 2.4 x 1.9 x 2.5 cm L parietal ICH w/o MLS or ME. She is intact on exam except intermittent numbness on the R side ranging from the chin to the lateral thigh. NIH 1. MRI brain completed and reviewed confirming no underlying contrast enhancement. Neuro: -- Continue neuro checks -- Advance as tolerated -- DCA today with Dr. Mcdonald CVS: -- SBP<160 Respiratory: -- O2 as needed, IS FEN/GI: -- NPO Prophy: -- SCDs, SQ DVT prophy Dispo: pend primary team Please page [phone] ([phone]) with questions Complexity. Hypomagnesemia - Continue to monitor and replete. Hypocalcemia - Continue to monitor and replete. Obesity, class I Body mass index is 33.06 kg/m . - Follow with PCP for dietary and lifestyle modifications. Wound Documentation Any conditions listed below are present on admission unless otherwise specified. . Cosigned by Marian Mcdonald MD at 08/20/2024 7:36 AM EDT Associated attestation - Marian Mcdonald MD - 08/20/2024 7:36 AM EDT I reviewed all pertinent notes, imaging, and laboratory work in the medical record. I personally saw and examined the patient and discussed the case with resident. I agree with the findings and plan,as stated below. Doing well. Stable right sensory changes. Plan for angiogram today. NPO. Marian Mcdonald MD Wardrobe Supervisor of Neurological Surgery [id number] * Deann Pruitt, REBECA - 08/18/2024 1:02 PM EDT Acute Care FLAGSETTER Speech/Language/Cognitive Evaluation Best mode of Communication: spoken language (regular speech) Discharge Recommendations: Based on the below outcome measures/assessment score(s) and FLAGSETTER clinicaljudgment, discharge destination recommendation is: Skilled FLAGSETTER services not warranted at discharge Acute FLAGSETTER Outcomes Tracking Communicate basic wants and needs?: yes Demo insight/appreciation of deficits?: yes Complete basic problem solving?: yes Current therapy frequency recommendation in acute: Speech/Lang/Cog Therapy Frequency: no acute therapy warranted Clinical Impression: Amanda Reyna presents with motor speech, expressive/receptive language, and cognitive-linguistic skills within functional limits. Patient feels at her cognitive baseline. No additional FLAGSETTER services indicated; please re-consult as needed. Patient Education/Instruction Learners: Patient Education provided: Role of this discipline Teaching method: Verbal Education/Instruction Learner response: Applies knowledge, States/Identifies/Teaches back Learning preferences: Auditory Learning considerations: No barriers/ready to learn Stroke education: Role of rehabilitation discipline Plan for next session: N/A Subjective information: Awake, alert, cooperative, pleasant. Pain: General Pain Documentation (Adult, OB, Peds) Presence of Pain: reports pain/discomfort Presence of Pain Score (Auto-calculated): 0 Comfort/Acceptable General Pain Level/Goal: 0 DVPRS (Defense and Veterans Pain Rating Scale) DVPRS: Rest: 8- severe pain DVPRS: Activity: 8- severe pain Precautions: Patient Safety Communication Prior to Visit: Nursing Lines/Tubes/Drains (Rehab Status): Telemetry Patient History Comments: Amanda Reyna is a 69 y.o. female with a history of PE, pAF not onAC, and L parietal convexity fibrous meningioma s/p craniotomy/resection 09/13/09 who presents with Rface, RUE/RLE numbness/paresthesias. LKW 1630 08/17. Pt was working on her car and her came home. She first developed a shocking sensation from her shoulder down to all her fingers. Fifteen minutes later, she developed right facenumbness and right outer thigh tingling. Has also been dropping objects with her right arm, having trouble with fine motor movements. Denies headache, nausea, vomiting, photophobia, slurred speech, word-finding difficulties, or facial droop. Went to [facility]. CTH showed left parietal ICH. Initial BP reportedly was 130s. Telestroke done without NIH, transferred to [facility]. On arrival to [facility], CTH was stable and CTA unrevealing. Ayaka Of note, takes ASA 81 mg daily. Previously took Eliquis for PE, reportedly not A-Fib but was told by her principal scientist that she was too high risk to take Eliquis due to her history of craniotomy. Had two falls in Jul, 2024 without head strike. She notes that last Friday she was in the ER for a couple of hours due to A-Fib/RVR, they had considered cardioversion but she converted back spontaneously.She takes sotalol for this and has been told to take an extra dose when she feels like she is in A-Fib. No hx of malignancy. Hx of grade 1 L parietal convexity meningioma that was found incidentally during workup for dizziness and subsequently resected in 2009, had followup surveillance MRIs for ~2years which were stable. No known personal or family history of bleeding or clotting disorders. No personal history of bleed or stroke. INTERVAL HISTORY 08/17: Admitted to [facility], stable CTH 08/18: MRI with L parietal ICH, request DCA from [facility] Prior Level of Function: Home Setting Residence: House Lives With: spouse First floor setup: bedroom, walk-in shower Number of stairs to enter home: 3 with rail Mobility Equipment Available: straight cane, rollator ADL Equipment Available: shower chair, grab bars Previous Level of Function Gross Functional Mobility: independent Assistive Device: none used Prior level ADL Overview: Independent with all ADLs Dominant Hand: Right Bed Mobility: independent Transfers: independent Stairs: independent Ambulation: independent with all needs Residence: House Lives With: spouse IADL History IADLs: independent Primary Language: Turkmen Home Management Skills: independent Medication Management: independent IADL Comments: wears glasses, denies hearing loss. Enjoys crafting. Respiratory Status O2 Device: room air O2 Sat (%): 92 % Resp Rate: (!) 25 EXPRESSIVE LANGUAGE: Intact (fluent speech with no evidence of anomia or paraphasias) RECEPTIVE LANGUAGE: Intact (followed all commands, answered all questions appropriately) READING: Intact WRITING: Unable to assess (UE weakness in dominant hand; do not anticipate agraphia) SOCIAL INTERACTION/PRAGMATICS: Intact COGNITION: Within Functional Limits Task: Arousal/Alertness Appropriate responses to stimuli Orientation Level Oriented X4 Safety Judgment Good awareness of safety precautions Awareness of Errors Good awareness of errors made Deficits Fully aware of deficits Attention Span Appears intact Memory Appears intact Problem Solving Able to problem solve independently Cognition Comments ORAL MECHANISM EXAMINATION: Oral Mucosa Healthy appearing mucosa Oral Secretions Normal Dentition Natural Face: Sensory Function Maxillary (V2) - right Face: Motor Function Symmetrical at rest Mandible Functional bilateral symmetry, range of motion and perceived strength of masseter and temporal muscles Lips Symmetrical at rest and during movement Tongue Symmetrical, functional range of motion in all planes Soft Palate Symmetrical, bilateral elevation with speech tasks Gag Response Did not test Neck and Shoulders Did not test Cranial Nerve Impairments CN V Trigeminal Nerve MOTOR SPEECH TASKS: Intact Task: Imitate Motor Movements Imitate Sounds and Words Rapid Alternating Movements Speech Intelligibility Intact Fluency Intact Saliva Management Intact VOCAL PARAMETERS: Intact Task: Breath Support Intact Coordination of Respiration and Phonation Coordination of respiration and phonation: Intact Duration of Phonation Pitch Control Intact Loudness Intact Vocal Quality WDL Subjective Voice Evaluation Grade of dysphonia (G): 0 Roughness (R): 0 Breathiness (B): 0 Asthenia (A): 0 Strain (S): 0 FLAGSETTER Outcomes: FLAGSETTER Outcomes / Standardized Measures Score The Orientation Log (O-Log) & The Cognitive Log (Cog-Log) Orientation Log City: correct spontaneously or upon first free recall attempt Kind of Place: correct spontaneously or upon first free recall attempt Name of Hospital: correct spontaneously or upon first free recall attempt Month: correct spontaneously or upon first free recall attempt Date: correct spontaneously or upon first free recall attempt Year: correct spontaneously or upon first free recall attempt Day of Week: correct spontaneously or upon first free recall attempt Clock Time: correct spontaneously or upon first free recall attempt Etiology / Event: correct spontaneously or upon first free recall attempt Pathology Deficits: correct spontaneously or upon first free recall attempt Total Score: 30 Cognitive Log Date: points given for a spontaneous correct response Time: points given for a spontaneous correct response Name of Hospital: points given for a spontaneous correct response Repeat Address: repeated accurately three times 20-1: without error Months Reversed: without error 30 Seconds: 25-35 seconds Hslt-Epix-Vadv: three correct repetitions Go / No-Go: correct response on each trial Address Recall: full, accurate recall Total Score: 30 Acute FLAGSETTER Goals Notes from 08/18/2024 1:25 AM through 08/18/2024 1:25 PM Goal 1: Patient will demonstrate understanding regarding Speech-Language Pathology role and plan ofcare and evaluation results/recommendations to improve awareness of condition/FLAGSETTER role by the time of discharge. Results and recommendations described above reviewed with pt. Pt verbalized understanding. Goal met. Speech Language Pathologist: REBECA Mcneal Time In: 1302 Time Out: 1316 Total Visit Time: 14 minutes Total Treatment Time (skilled, billable minutes): 14 minutes Non-billable assistance during session: NA Assisted by during session: NA PPE used during patient interaction: no PPE used Patient location/status at end of session: bed with head of bed elevated Patient alarms at end of session: RN aware Needs in reach. FLAGSETTER Evaluation and Treatment Time Speech Eval - Sound Production W/Lang Comp and Exp 32894: 14 Upon discontinuation of Acute Care Speech Therapy Services or patient discharge from the hospital this note represents the current Speech Therapy Discharge Summary * REBECA Mcenal - 08/18/2024 12:55 PM EDT Received consult for swallow evaluation. However, patient passed [place] Swallow Screening by nursing.Swallow eval by FLAGSETTER will not be completed at this time unless this service notified of change in status or re-consult for swallow eval placed. FLAGSETTER to proceed with speech/language/cognitive evaluationper order. Thank you. No charge SRIDHAR Mcneal, [facility]-FLAGSETTER, [place] License # [id number] Pager #: [phone] * Pratibha Victor MD - 08/18/2024 11:25 AM EDT I saw and independently examined the patient on 08/18/2024. I agree with the history, examination, and medical decision making as outlined. In addition, please see below. Neurosynopsis Briefly, this is a 69 y.o. yo female with a PMH of afib (not on AC, unclear reasons), PE, prior L parietal meningioma s/p crani in 2009 presenting with R hemibody hypoaesthesia found to have a R parietal ICH . At baseline, patient has no deficits with an mRS of 0. LKW 4:30 pm on 08/17. Neuroexam upon arrival had decreased sensation of L face/arm /leg. CTH showed a L parietal lobar ICH . CTA head/neck showed no actue findings 24 hour events: admitted overnight. Exam Vitals: Temp: [97.8 F (36.6 C)-98.1 F (36.7 C)] 98.1 F (36.7 C) Pulse (Heart Rate): [65-76] 69 Resp Rate: [17-27] 24 BP: (96-140)/(49-66) 111/56 O2 Sat (%): [87 %-98 %] 98 % Weight: [104.5 kg (230 lb 6.4 oz)] 104.5 kg (230 lb 6.4 oz) Gen: NAD, comfortable. Neuro: MS- Awake, alert, oriented x 3, attentive. Able to name and repeat. Follows commands. Normal fluency. No dysathria. No apraxia. No signs of neglect. CN- VFF, EOMI, no facial weakness, nml facial sensation. M- nml bulk/tone. LUE 5/5, RUE 5/5, LLE 5/5, RLE 5/5. R parietal ICH S- dysaesthesia of LUE. C- no appendicular dysmetria. Medications Gabapentin 400 mg Oral TID Latanoprost 1 drop Both Eyes QHS Magnesium sulfate 4 g Intravenous Once Pantoprazole 40 mg Oral Daily Primidone 50 mg Oral 4x daily rOPINIRole 2.5 mg Oral QHS Senna 8.6 mg Oral Daily Or Senna 8.6 mg Per NG tube Daily Sotalol 80 mg Oral Q12HNS Timolol maleate 1 drop Both Eyes BID Assessment/Plan #L parietal lobar ICH- ddx vascular lesion, CAA, hypertensive, ischem cw hemm tx, hemm tumor, vasculaitis, #question of sensory seizures -start LVT 1 g bid. -obtain routine EEG -obtain 6 hour and 24 hour CTH -fu MRI brain w/wo contrast -CTA showed no vascular lesion -Consult Neurosurgery for DSA for possble dAVF given hemorrhage at site of prior crani and no otheretiology seen for bleed on MRI -SBP<160, map >65 -no AC/AP -platelts >100, INR <1.5 #glaucomea - cot eye drops #depresion -hold well butrin given concern for seizure #afib -CHADSVASC is 3 -no AC for now, will need to discuss watchman vs AC as an outpatient. Will depend on determination of casue fo ICH -continue home sotalol #HTN -restart home meds #RLS -cont home ropirnole #ET -cont homeprimidone #crohns disease #prophylaxis: DVT-SCDs only ; GI-bowel reg Pratibha Victor MD Vascular Neurology [facility] * ENRIQUETA Jensen - 08/18/2024 10:58 AM EDT Discharge Planning Assessment Is the patient able to participate in the assessment?: Yes Care Management Plan CM met with patient, her spouse and son at bedside. Current recommendation is for IPR with probability to progress to home. Patient is open to IPR but prefers home with OP services, family can provide transportation. CM will update treatment team. CM will continue to follow and assist patient and family through discharge planning process. Initial Discharge Planning Expected Discharge Disposition: Home Transportation Available for Discharge: Family or Friend Anticipated DME: none Anticipated Services at Discharge: Physical Therapy, Occupational Therapy, Outpatient follow up Patient Assessment Completed: Initial Legal Next of Kin Does the patient have a Guardian?: No Spouse: Yes Name and Contact information: Farzaneh Reyna [phone] Adult Child(robert), List All Adult Children: Yes Name and Contact information: Jayson Reyna [phone] Would you like to add additional adult children?: No Parent(s) - List All Living Parents: No Reviewed and Updated in Demographics? : Yes Advanced Care Planning Has the patient completed Advance Directives?: Completed, Not Available in Medical Record Copy of Advance Directives was requested?: Yes Advance Directives Requested From: Patient and family at bedside - doc requested Medication Management Does the patient have prescription insurance coverage? : Yes Is the patient on Anticoagulation? : Yes Provider or Clinic that manages Anticoagulation?: ASA 81mg [facility] [address] [place], [place] [phone] - [address] [phone] Living Environment and Support System Is the patient from a facility or prison?: No Living Environment: House Patient Caregiving Responsibilities: Self Patient-identified caregiver/support network: Family Who does the patient identify as a teachable caregiver(s)?: Spouse or Partner, Child(robert) - Independent Services Does the patient use a home health or hospice agency?: No Current with dialysis?: No Does the patient use any community programs or services?: No Does patient use DME? : walker, rollator, wheelchair, tub bench/seat, quad cane (Patient has accessto DME but does not currently use.) Would you like to add additional DME providers?: No Does the patient use oxygen?: No Does patient use medical supplies? : none Anticipated Changes Related to Illness/Injury? : Yes Inability to care for self?: Yes Inability to care for dependents?: N/A Inability to return to school/work?: N/A Initial ADLs Prior to Arrival What is the patient's reported baseline physical functioning prior to this acute illness?: independent What is the patient's reported baseline cognitive functioning prior to this acute illness?: independent Is the patient's baseline functioning changed by this acute illness? : Yes Changes observed : Physical Concerns with patient being able to care for themselves at home? : No HODAN Jensen, ENRIQUETA [employer] Available by Secure Chat * Miguelito Watts MD - 08/18/2024 9:07 AM EDT Images from the original note were not included. NEUROVASCULAR STROKE SERVICE Daily Progress Note IDENTIFYING INFORMATION Amanda Reyna MR# [id number] 08/18/2024 HISTORY OF PRESENT ILLNESS Amanda Reyna is a 69 y.o. 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 LKW 1630 08/17. Pt was working on her car and her came home. She first developed a shocking sensation from her shoulder down to all her fingers. Fifteen minutes later, she developed right facenumbness and right outer thigh tingling. Has also been dropping objects with her right arm, having trouble with fine motor movements. Denies headache, nausea, vomiting, photophobia, slurred speech, word-finding difficulties, or facial droop. Went to OSH. CTH showed left parietal ICH. Initial BP reportedly was 130s. Telestroke done without NIH, transferred to [facility]. On arrival to [facility], CTH was stable and CTA unrevealing. Dianawallaceumer Of note, takes ASA 81 mg daily. Previously took Eliquis for PE, reportedly not A-Fib but was told by her principal scientist that she was too high risk to take Eliquis due to her history of craniotomy. Had two falls in Jul, 2024 without head strike. She notes that last Friday she was in the ER for a couple of hours due to A-Fib/RVR, they had considered cardioversion but she converted back spontaneously.She takes sotalol for this and has been told to take an extra dose when she feels like she is in A-Fib. No hx of malignancy. Hx of grade 1 L parietal convexity meningioma that was found incidentally during workup for dizziness and subsequently resected in 2009, had followup surveillance MRIs for ~2years which were stable. No known personal or family history of bleeding or clotting disorders. No personal history of bleed or stroke. INTERVAL HISTORY 08/17: Admitted to MD, stable CTH 08/18: MRI with L parietal ICH, request DCA from [facility] [place] VITAL SIGNS Temp: [97.8 F (36.6 C)-98.1 F (36.7 C)] 98.1 F (36.7 C) Pulse (Heart Rate): [65-76] 69 Resp Rate: [17-27] 24 BP: (96-140)/(49-66) 111/56 O2 Sat (%): [87 %-98 %] 98 % Weight: [104.5 kg (230 lb 6.4 oz)] 104.5 kg (230 lb 6.4 oz) Oxygen Therapy: Oxygen Therapy O2 Sat (%): 98 % O2 Device: room air Flow (L/min): 2 Oxygen Delivery/Consumption Hemodynamics BSA (Calculated - sq m): 2.22 m2 Intake/Output: Intake/Output Summary (Last 24 hours) at 08/18/2024 1246 Last data filed at 08/18/2024 0601 Gross per 24 hour Intake 237.35 ml Output -- Net 237.35 ml PHYSICAL EXAM General Physical Exam General: NAD, lying comfortably in chair HENT: Normal oropharynx and mucosa. Normal external appearance of ears and nose. CV/Chest: Regular rate and rhythm, normal S1S2 Lungs: No audible wheezing. Normal work of breathing. No accessory muscle use Abdomen: Non distended, non tender Extremities: Warm and well perfused. No appreciable edema, cyanosis or deformity. Skin: No rash. Normal palpation of skin. Musculoskeletal: No joint tenderness. Normal digits and nails by inspection. No clubbing. Neurologic Examination Mental status/Cognition: alert; oriented to month and age; good attention; no apparent neglect Speech/language: fluent; comprehension intact; object naming intact; repetition intact Cranial nerves: CN II Visual muhammad full to confrontation without visual extinction CN III,IV, PERRL. EOMI. CN V Facial sensation intact to light touch bilaterally in V1, V2, V3 CN VII Face, Smile, Eyebrow raise/closure symmetric. CN VIII Hearing grossly intact to voice CN IX & X Soft palate elevates symmetrically in the midline, no dysarthria CN XI Shoulder shrug with full strength CN XII Tongue protrudes midline Motor: Normal bulk and tone. Reduced finger tapping on right side. No drift in all extremities, butdid have pronator drift on RUE. SA EE EF WE WF DI HF KE KF DF PF Right 4 4 4 5 5 5 5 5 Left 5 5 5 5 5 5 5 5 Sensation: intact to light touch throughout without extinction Coordination/Complex Motor: - Diwhoq-cv-exxr intact bilaterally without dysmetria - Ksds-mx-okpa intact bilaterally without dysmetria NIHSS 08/18/2024 Provider NIH Stroke Scale NIH Interval (Provider): daily NIH Level of Conciousness (Provider): 0 NIH LOC Questions (Provider): 0 NIH LOC Commands (Provider): 0 NIH Best Gaze (Provider): 0 NIH Visual (Provider): 0 NIH Facial Palsy (Provider): 0 NIH Left Arm Motor (Provider): 0 NIH Right Arm Motor (Provider): 0 NIH Left Leg Motor (Provider): 0 NIH Right Leg Motor (Provider): 0 NIH Limb Ataxia (Provider): 0 NIH Sensory (Provider): 1 NIH Best Language (Provider): 0 NIH Dysarthria (Provider): 0 NIH Extinction and Inattention (Provider): 0 NIH Total Score (Provider): 1 MEDICATIONS Gabapentin 400 mg Oral TID Latanoprost 1 drop Both Eyes QHS Magnesium sulfate 4 g Intravenous Once Pantoprazole 40 mg Oral Daily Primidone 50 mg Oral 4x daily rOPINIRole 2.5 mg Oral QHS Senna 8.6 mg Oral Daily Or Senna 8.6 mg Per NG tube Daily Sotalol 80 mg Oral Q12HNS Timolol maleate 1 drop Both Eyes BID LABS/CULTURES Lab Results Component Value Date WBC 6.26 08/18/2024 HGB 12.7 08/18/2024 HCT 41.5 08/18/2024 PLATELET 194 08/18/2024 MCV 86.1 08/18/2024 Lab Results Component Value Date SODIUM 137 08/18/2024 POTASSIUM 3.6 08/18/2024 CHLORIDE 103 08/18/2024 CO2 25 08/18/2024 BUN 8 08/18/2024 CREATSERUM 0.54 08/18/2024 GLUCOSE 123 08/18/2024 Lab Results Component Value Date CHOLESTEROL 159 08/17/2024 TRIG 138 08/17/2024 HDL 48 08/17/2024 LDLCALC 83 08/17/2024 Lab Results Component Value Date HGBA1C 6.1 (H) 08/17/2024 Lab Results Component Value Date ALBUMIN 3.4 (L) 08/17/2024 , No results found for: CPK, TROP IMAGING/DIAGNOSTIC STUDIES MRI BRAIN WITH AND WITHOUT CONTRAST CT HEAD WITHOUT CONTRAST CT STROKE ANGIO BRAIN/NECK Final Result IMPRESSION: 1. Widely patent cervical and intracranial arterial vasculature. 2. No evidence of aneurysm, vascular malformation, or active bleeding. I personally viewed and interpreted these images and I have reviewed and approved this report. STROKE HEAD-STROKE ALERT ONLY Final Result IMPRESSION: 1. Acute left parietal intraparenchymal hematoma near vertex. 2. No significant midline shift, herniation, hydrocephalus. 3. Suspect remote left basal ganglial lacunar insults. Correlate with outside imaging to ensure stability. Findings were discussed with Ana Lilia Hurley DO at 2157 on 08/17/2024. I personally viewed and interpreted these images and I have reviewed and approved this report. HEAD WITHOUT CONTRAST (Results Pending) ASSESSMENT AND PLAN Left parietal ICH (08/17/24): No intervention - Etiology: Consider ischemic stroke with hemorrhagic conversion with hx A-Fib not on AC. Low suspicion for CAA given no microbleeds although pt is >50 with lobar bleed. Less likely HTN due to BP 130 on presentation, no known trauma, no coagulopathy, no known malignancy. 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 - CT head: Acute left parietal intraparenchymal hematoma near vertex. - CTA brain/neck: Patent vasculature. - Repeat CTH 6H: Stable on my read - Repeat CTH 24H: p - MRI: Shows left parietal ICH, pending read - SBP: <140 - LDL: 83 - A1C: 6.1 - TTE: p - Statin therapy: Start if vascular malformation eval unrevealing - Antiplatelet therapy: Hold home ASA 81 mg daily - Anticoagulation: Not on AC at home, hold for ICH but will need in technician support engineer - DVT ppx: Hold off until DCA - Dispo: IPR vs home - NSG consulted for DCA to evaluate for vascular malformation Hemorrhagic stroke core measures - NIHSS on admission: 1 - ICH volume: 3.31, ICH score: 0 - Started on mechanical (SCDs) DVT prophylaxis; --- pharmacological (SQ heparin/Lovenox) prophylaxis can be started after repeat CTH stable and NS approval - Antiplatelet and anticoagulation therapy not indicated - LDL (83) and HgbA1c (6.1) were checked and the patient will be discharged on a lipid lowering statin medication if LDL > 70 - Dysphagia screening ordered, and will be completed prior to patient receiving oral intake - Stroke education booklet has been ordered and will be provided by the RN that includes both written and verbal education to the patient and/or family regarding hemorrhagic strokes. We have reviewedthe patient's personal modifiable risk factors, and will provide education on reducing these risk factors - Patient will be assessed for rehab by PT/OT/Speech and PM&R if indicated Acute Medical Conditions Concern for seizure - Pt with progressive positive phenomenon in RUE>RLE and R face, ?fluctuating - Ordered EEG - Start Keppra 1000 mg BID Laboratory Abnormalities Chronic Medical Conditions HTN - hold hydrochlorothiazide 25 mg daily, fold in as able Afib - continue sotalol 80 mg BID, hold home ASA 81 mg Glaucoma - Cont latanoprost and timolol eye drops Mood disorder - Hold wellbutrin 150 mg XL for now to avoid lowering seizure threshold in acute phase, consider resuming in next couple days RLS - cont ropinirole 2.5 mg at bedtime GERD - cont pantoprazole Chronic LBP - cont gabapentin 400 mg TID, Percocet Q6H PRN ET - cont primidone 50 mg 4x daily Crohn's disease - on Stelara Eczema, vaginal dryness, 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 Victor, during daily rounds. Signed, Miguelito Watts MD Neurology, PGY2 Cosigned by Pratibha Victor MD at 08/23/2024 6:01 PM EDT * Jammie Cope - 08/18/2024 8:20 AM EDT Acute Occupational Therapy Evaluation Prior Gross Functional Mobility: independent Current AM-PAC score(s): CURRENT AM-PAC Activity Raw Score: 21 Based on the above AM-PAC score(s) and OT clinical judgment, discharge destination recommendation is: Home Barriers to discharge home: Patient needs assistance with IADLs (see note below) Mobility equipment available at home: straight cane, rollator ADL equipment available at home: shower chair, grab bars Equipment recommendations for discharge: none Equipment issued: none Current therapy frequency recommendation(s) in acute: 1 time a week Activity Recommendations for outside of rehab session: 1 person gait belt Precautions and Weightbearing Status: OT Existing Precautions/Restrictions: fall Telemetry Patient Safety Communication Prior to Visit: Nursing Subjective: Agreeable to therapy Pain: General Pain Documentation (Adult, OB, Peds) Presence of Pain: denies pain/discomfort Presence of Pain Score (Auto-calculated): 0 DVPRS (Defense and Veterans Pain Rating Scale) DVPRS: Rest: 0- no pain DVPRS: Activity: 0- no pain Home Setting Residence: House Lives With: spouse First floor setup: bedroom, walk-in shower Number of stairs to enter home: 3 with rail Mobility Equipment Available: straight cane, rollator ADL Equipment Available: shower chair, grab bars Previous Level of Function Gross Functional Mobility: independent Assistive Device: none used Prior level ADL Overview: Independent with all ADLs Dominant Hand: Right Bed Mobility: independent Transfers: independent Stairs: independent Ambulation: independent with all needs IADL History IADLs: independent Primary Language: Turkmen Home Management Skills: independent Medication Management: independent Objective/Observation: Vitals/Vitals Responses to Treatment: VSS Vision Screen Currently wearing corrective lenses: Reading only Subjective Patient Complaints: (reports foggy vision) Ocular (Smooth) Pursuits - Descripton: Smooth Ocular Saccades - Quality: Good Ocular Saccades - Description: Accurate Speech Speech: no gross deficits noted Hearing Hearing: no gross deficits noted Cognition Overall Cognitive Status: Within Functional Limits Arousal/Alertness: Appropriate responses to stimuli Orientation Level: Oriented X4 Following Commands: Follows all commands and directions without difficulty Safety Judgment: Good awareness of safety precautions Awareness of Errors: Good awareness of errors made Deficits: Fully aware of deficits Attention Span: Appears intact Memory: Appears intact Problem Solving: Able to problem solve independently ADLs: ADL Assessment: Grooming Deficit, Toileting Deficit, LE Dressing Deficit ADL Anticipated Performance (ADLs not directly observed this session): Eating, Bathing, UE Dressing Eating Assistance: Independent Grooming Assistance: Contact guard assist Grooming Location: standing at sink Grooming Deficit: Oral care, Wash/dry hands, Denture care Grooming Skilled Rationale (Verbal/Tactile/Visual/Demonstration): Facilitate postural control Grooming Intervention/Details: (completed oral care, denture care, and hand washing standing at sink with CGA, verbal cue for upright posture.) Bathing Assistance: Contact guard assist UE Dressing Assistance: Independent LE Dressing Assistance: Contact guard assist LE Dressing Location: standing LE Dressing Deficit: Pull up over hips LE Dressing Intervention/Details: (pt managed LB clothing before and after toileting, pt able to pull pants down and back up over hips) Toilet Assistance: Minimal Toileting Location: toilet Toileting Deficit: Clothing management down, Clothing management up, Perineal hygiene, Grab bar use Toilet Skilled Rationale (Verbal/Tactile/Visual/Demonstration): Cues for increased safety Toileting Intervention/Details: (pt able to manage clothing both up and down, pt required assistance for perineal hygiene due to pt normally using AE to assist with wiping. cue for grab bar use when standing up from toileting.) Extremity Assessments: RUE Assessment RUE Assessment: Within Functional Limits Right UE Assessment Details: elbow 5/5, shoulder 4/5 LUE Assessment LUE Assessment: Within Functional Limits Left UE Assessment Details: elbow 5/5, shoulder 4/5 Balance: Sitting Balance Static Sitting-Level of Assistance: Supervision Dynamic Sitting-Level of Assistance: Supervision Standing Balance Static Standing-Level of Assistance: Contact guard Dynamic Standing-Level of Assistance: Contact guard Standing-Balance Support: Gait belt Skilled Rationale: Full extension to upright positioning/posture Standing Balance Skilled Intervention/Details: (cues for upright posture standing at sink and when transferring off of the commode.) Neuro: Sensation Overall Sensation: Impaired Sensation Comments: (N/T on R side of body from head to knee) Fine Motor Coordination Left Hand Thumb/Finger Opposition Skills: normal performance Right Hand Thumb/Finger Opposition Skills: normal performance Left Hand, Diadochokinesis Skills: normal performance Right Hand, Diadochokinesis Skills: normal performance Skin and Edema: Mobility Assessment: Supine to Sit Mobility [place] Level: Supine->Sit: stand-by assist Bed Features/Set-up: Supine->Sit: Head of bed elevated Skilled Rationale: Verbal cues Transfer Assessment: Sit to Stand Transfer [place] Level: Sit->Stand: contact guard assist Assistive Device: Sit->Stand: gait belt Skilled Rationale: Verbal cues, Technique of activity Skilled Intervention/Details: Sit->Stand: (x1 from EOB, x1 from toilet) Stand to Sit Transfer [place] Level: Stand->Sit: contact guard assist Assistive Device: Stand->Sit: gait belt Skilled Rationale: Positioning, Verbal cues Toilet Transfer [place] Level: Toilet: contact guard assist Assistive Device: Toilet: gait belt, grab bars Skilled Rationale: Hand placement, Verbal cues Skilled Intervention/Details: Toilet: (cue for grab bar use) Functional Mobility: Functional Mobility [place] Level: Functional Mobility/Gait: contact guard assist Assistive Device: Functional Mobility/Gait: gait belt Functional Mobility Distance: Distance needed for common household mobility Functional Mobility Deficits: Decreased step length, Slowed gait speed Functional Mobility Skilled Rationale: Technique of activity Skilled Intervention/Details - Functional Mobility/Gait: (ambulated in room, hallway, and to bathroom with slowed gait and decreased step length.) Wheelchair Assessment Patient currently uses wheelchair?: No Outcome Score(s): CURRENT AM-PAC Daily Activity Inpatient Short Form Putting on/Taking Off Lower Body Clothin - A Little Assistance Bathin - A Little Assistance Toiletin - A Little Assistance Putting on/Taking Off Upper Body Clothin - No Assistance Groomin - No Assistance Eatin - No Assistance CURRENT AM-[facility] Activity Raw Score: 21 CURRENT AM-[facility] Activity Functional Limitation/Modifier: 32.79% Currently Impaired in Daily Activity- CJ Interventions: Intervention 1 Intervention Name: Educated on Fine Motor Tasks Details: Pt provided with objects to promote fine motor skills to prepare for ADL participation with R hand. Assessment & Plan: Patient was admitted for R side numb and tingling and seen for therapy evaluation related to ADL performance. Exam findings include impairments in: transfers. These impairments contribute to occupational performance limitations including toileting, functional mobility, ADL transfers. The following factors impact the plan of care: Psychosocial Factors Positive indicators for performance: Adequate support system Patient will benefit from skilled occupational therapy to address these impairments, occupational performance limitations, and participation restrictions. Patient's rehab potential is: excellent. Planned Therapy Interventions (OT Eval): ADL retraining, IADL retraining, transfer training Patient Instruction/Education this session: Learners: Patient Education provided: Role of this discipline Teaching method: Verbal Education/Instruction Learner response: Applies knowledge Learning preferences: Auditory Learning considerations: No barriers/ready to learn Plan for next session: (ADLs, endurance, balance) Acute OT Goals Plan of Care by Joseluis Beverly OT at 08/18/2024 2:33 PM Version 1 of 1 Problem: OT - ADLs Goal: Grooming - Patient will complete grooming in standing with supervision for improved ability to safely complete ADLs. Outcome: Ongoing OT treatment consisted of the following to work and progress towards the above goal(s): OT Evaluation and Treatment Time OT Evaluation (Moderate) Time Entry: 31 Self Care/Home Management (ADLs) Time Entry: 8 Evaluating Therapist: Jammie Cope Additional Details: OT Co-Eval/Treatment Information Co-evaluation/co-treatment performed?: Yes, simultaneous billable skilled care was necessary due tomedical complexity and functional deficits Other discipline: PT Rationale for need to co-eval/treat: cognition, coordination, postural control, alertness/arousal OT Evaluation Complexity Occupational Profile and Client History: Moderate - expanded history Assessment of Occupational Performance: Moderate (3-5 performance deficits) Clinical Decision/Performance Deficits: Moderate (detailed assessments w/several treatment options) Time In: 07 Time Out: 08 Total Visit Time: 39 minutes Total Treatment Time (skilled, billable minutes): 39 minutes PPE used during patient interaction: gloves Patient location at end of session: chair Alarms on at end of session: chair alarm Needs in reach. Upon discontinuation of Acute Care Occupational Therapy Services or patient discharge from the hospital this note represents the current Occupational Therapy Discharge Summary. Cosigned by Joseluis Beverly OT at 08/18/2024 2:39 PM EDT Associated attestation - Joseluis Beverly OT - 08/18/2024 2:39 PM EDT I, Joseluis Beverly OT, provided direct guidance in the room during this patient care session. I attest that all documentation reflects accurate skilled clinical decisions and judgements. This note was reviewed and edited as needed to better reflect the patient's clinical status and thetreatment plan Read and Co-signed by: Joseluis Beverly OTR/L License #: [id number] Pager: [phone] Upon discontinuation of Acute Care Occupational Therapy Services or patient discharge from the hospital this note represents the current Occupational Therapy Discharge Summary. * Idalia Alvarez, PT - 08/18/2024 7:41 AM EDT Acute Physical Therapy Evaluation Prior Gross Functional Mobility: independent Current AM-PAC score(s): CURRENT AM-PAC Mobility Raw Score: 17 Based on the above AM-PAC score(s) and PT clinical judgment, patient is a good candidate for discharge to Inpatient Rehab Facility (possible progression to home) Supporting Factors (would benefit from skilled therapy services): Fall risk, Recent decline in functional mobility, Impaired balance Mobility equipment available at home: straight cane, rollator ADL equipment available at home: shower chair, grab bars Equipment needed for discharge: to be determined Current therapy frequency recommendation in acute: PT Therapy Frequency: 5 times a week Activity Recommendations for outside of rehab session: 1 person, gait belt, amb in hallway 3x/day Precautions and Weightbearing Status: Existing Precautions/Restrictions: fall Telemetry Patient Safety Communication Prior to Visit: Nursing Subjective: Pt agreed to PT Pain: General Pain Documentation (Adult, OB, Peds) Presence of Pain: denies pain/discomfort Presence of Pain Score (Auto-calculated): 0 Home Setting Residence: House Lives With: spouse First floor setup: bedroom, walk-in shower Number of stairs to enter home: 3 with rail Mobility Equipment Available: straight cane, rollator ADL Equipment Available: shower chair, grab bars Previous Level of Function Gross Functional Mobility: independent Assistive Device: none used Prior level ADL Overview: Independent with all ADLs Dominant Hand: Right Bed Mobility: independent Transfers: independent Stairs: independent Ambulation: independent with all needs Objective/Observation: Vitals/Vitals Responses to Treatment: no adverse response to PT O2 Device: room air Cognition Overall Cognitive Status: Within Functional Limits Arousal/Alertness: Appropriate responses to stimuli Orientation Level: Oriented X4 Following Commands: Follows all commands and directions without difficulty Safety Judgment: Good awareness of safety precautions Awareness of Errors: Good awareness of errors made Deficits: Fully aware of deficits Vision Screen Currently wearing corrective lenses: Reading only Subjective Patient Complaints: (pt reports fomr foggy vision x 1 month) Speech Speech: no gross deficits noted Hearing Hearing: no gross deficits noted Extremity Assessments: RLE Assessment Right LE Assessment Details: strength: 4-/5 hip flexion, 4+/5 knee extension/ankle dorsiflexion LLE Assessment Left LE Assessment Details: strength: 4+/5 Sensation Sensation Comments: numbness right arm, right face, and right leg/thigh per pt. Pt able to identifylight touch bilat LE but endorses diminished right thigh compared to left Mobility Assessment: Supine to Sit Mobility [place] Level: Supine->Sit: stand-by assist Bed Features/Set-up: Supine->Sit: Head of bed elevated Skilled Rationale: Verbal cues, Technique of activity Balance: Sitting Balance Static Sitting-Level of Assistance: Standby Standing Balance Static Standing-Level of Assistance: Contact guard Standing-Balance Support: Gait belt Skilled Rationale: Verbal cues, Full extension to upright positioning/posture Transfer Assessment: Sit to Stand Transfer [place] Level: Sit->Stand: contact guard assist Assistive Device: Sit->Stand: gait belt Skilled Rationale: Verbal cues, Tactile cues, Hand placement, Technique of activity Stand to Sit Transfer [place] Level: Stand->Sit: contact guard assist Assistive Device: Stand->Sit: gait belt Skilled Rationale: Verbal cues, Tactile cues, Hand placement, Technique of activity Gait/Functional Mobility: Gait Assessment [place] Level: Gait: contact guard assist Assistive Device: Gait: gait belt Ambulation Distance (Feet): 120 Gait Deviations Identified: decreased amanda, decreased gait speed, decreased heel strike, decreased step length, decreased stride length, shuffling Gait Skilled Rationale: verbal, tactile, upright posture, increase step length, improve foot placement, increase foot clearance Skilled Intervention/Details - Gait: pt reports feeling amb is 40% impaired compared to normal Outcome Score(s): CURRENT [facility] Basic Mobility Inpatient Short Form Turning over in bed: 3 - A Little Assistance Moving from lying on back to sittin - A Little Assistance Moving to and from bed to chair: 3 - A Little Assistance Sitting/standing from chair: 3 - A Little Assistance Walk in hospital room: 3 - A Little Assistance Climbing 3-5 steps with a railin - A Lot of Assistance CURRENT [facility] Mobility Raw Score: 17 CURRENT [facility] Mobility Functional Limitation: 50.57% Impaired in Basic Mobility Assessment & Plan: Patient was admitted for 69 y.o. 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 (per chart review) and seen for therapy evaluation related to mobility concerns. Exam findings include impairments in: Strength, Balance, Posture, Transfers, Sensation, Aerobic capacity/endurance, Gait/Locomotion. These impairments contribute to functional limitations including Difficulty with transfers, Difficulty with bed mobility, Decreased functional mobility. Current clinical presentation is Evolving - changing/inconsistent clinical characteristics (Moderate). Patient history factors impacting Plan Of Care include . Patient will benefit from skilled physical therapy to address these impairments, functional limitations, and participation restrictions andhas good rehab potential to achieve therapy goals. Planned Therapy Interventions: balance training, bed mobility training, endurance, functional activity tolerance, gait training, neuromuscular re- education, strengthening, transfer training Patient Instruction/Education this session: Learners: Patient Education provided: Plan of care Teaching method: Verbal Education/Instruction Learner response: States/Identifies/Teaches back Learning preferences: Auditory Learning considerations: No barriers/ready to learn Stroke education: Role of rehabilitation discipline Plan for next session: progress transfers, gait, balance, stairs Acute PT Goals Plan of Care by Idalia Alvarez PT at 08/18/2024 8:14 AM Version 1 of 1 Problem: PT - General Goals Goal: Supine <-> Sit Transfers - Patient will perform supine to/from sit transfers with supervision and without use of hospital bed features in order to improve functional mobility and safety. Outcome: Ongoing Goal: Sit <-> Stand Transfers - Patient will perform sit to/from stand transfers with supervision and without an assistive device in order to improve functional mobility and safety. Outcome: Ongoing Goal: Standing Endurance/Balance - Patient will perform standing balance tasks for 8 min with supervision and without an assistive device Outcome: Ongoing Goal: Ambulation - Patient will ambulate 150 feet with supervision and without an assistive device to improve ability to safely navigate home and community. Outcome: Ongoing Goal: Stairs - Patient will ascend/descend 3 stairs with supervision, without an assistive device, and single railing(s) to improve ability to safely navigate home and community. Outcome: Ongoing PT treatment consisted of the following to progress towards the above goal(s): PT Evaluation and Treatment Time PT Evaluation (Moderate) Time Entry: 38 Evaluating Therapist: Idalia Alvarez PT Additional Details: PT Co-Eval/Treatment Information Co-evaluation/co-treatment performed?: Yes, simultaneous billable skilled care was necessary due tomedical complexity and functional deficits Other discipline: OT Rationale for need to co-eval/treat: (functional mobility conerns) Evaluation Complexity Components History: Moderate (1-2 personal factors and/or comorbidities) Body Systems Review: Moderate (Addressing a total of 3 or more elements) Clinical Presentation: Evolving - changing/inconsistent clinical characteristics (Moderate) Clinical Decision Making Complexity: Moderate Time In: 740 Time Out: 818 Total Visit Time: 38 minutes Total Treatment Time (skilled, billable minutes): 38 minutes PPE used during patient interaction: gloves Patient location at end of session: chair Alarms on at end of session: chair alarm, RN aware Needs in reach. Upon discontinuation of Acute Care Physical Therapy Services or patient discharge from the hospitalthis note represents the current Physical Therapy Discharge Summary. * Giovana Yang [facility] - 08/17/2024 9:47 PM EDT Department of Pharmacy Emergency Department Stroke Alert Response Note Patient Name: Amanda Renya Room/Bed: E038/E038 A Pharmacist responded to the stroke alert. The patient was determined to be having a hemorrhagic stroke. The IHIS order set ED: Confirmed Stroke/ICH - Secondary was placed by Dr. Crawley for ongoing care. Pertinent medications received prior to arrival: labetolol x1 Patient takes only aspirin 81 mg at home. After discussion with neurology, SBP goal is to be between 120 and 140 mmHg. SBP is currently at goal and no interventions were required. Verified orders for PRN anti-hypertensives with correct bloodpressure goal (SBP 120-140 mmHg) have been ordered for ongoing care.. Please feel free to contact me with any further questions. Name: Giovana Yang RPH Phone: [phone] Date/Time: 08/17/2024 9:47 PM documented in this encounterOS[facility] Procedure note* Fior Mcclure MD - 08/24/2024 9:04 PM EDTAssociated Order(s): EEG, ROUTINE Inpatient Routine EEG Report History: 69 y.o. 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 Indication: Concern for seizure DOS: 08/24/24 Technical Description: This is a 21-channel digital EEG recording with time- locked video and single-channel electrocardiogram. Electrodes are placed according to the 10 to 20 International System. Portions of this record are reviewed using bandpass filters of 1 to 70 Hz and sensitivity of 7mV/mm EEG Findings Background: Background is continuous with predominant 6-8Hz theta activity. There is a slow 7-8Hz posterior dominant rhythm best seen over the right hemisphere. During drowsiness there is a drop of the PDR and slow roving eye movements and slowing of the background. Sleeping background: Present with normal stage 2 sleep transients Voltage: Normal Focal Slowing: There is continuous focal slowing with loss of faster frequencies over the left hemisphere. Reactivity: Yes Sporadic ED's: None Electrographic seizures: None Clinical Events: None Hyperventilation: Not performed Photic stimulation: Not performed Breach rhythm: None EKG: Normal Sinus Rhythm Impression: EEG Result This is an abnormal inpatient routine vEEG that is characterized by a slowing over the left hemisphere consistent with focal cortical dysfunction in this region. In addition, there is a mild degree of background slowing consistent with nonspecific cerebral dysfunction. No seizures or epileptiform discharges seen. Fior Mcclure MD Neurophysiology Fellow (EEG track) PGY-5 Department of Neurology Cosigned by Stephon Bonilla MD at 08/25/2024 6:24 PM EDT Associated attestation - Stephon Bonilla MD - 08/25/2024 6:24 PM EDT I have personally reviewed the EEG/cEEG with the resident/fellow. I agree with the report as outlined by the resident/fellow and edited by me Stephon Bonilla MD EEG Attending Wardrobe Supervisor Department of Neurology, Epilepsy Division [facility] * Fior Mcclure MD - 08/18/2024 5:17 PM EDTAssociated Order(s): EEG, ROUTINE Inpatient Routine EEG Report History: 69 y.o. 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 Indication: Concern for seizure DOS: 6/11/25 Technical Description: This is a 21-channel digital EEG recording with time- locked video and single-channel electrocardiogram. Electrodes are placed according to the 10 to 20 International System. Portions of this record are reviewed using bandpass filters of 1 to 70 Hz and sensitivity of 7mV/mm EEG Findings Background: There is a slow 8Hz posterior dominant rhythm that is reactive to eye opening and eye closure. During drowsiness there is a drop of the PDR and slow roving eye movements and slowing of the background. Sleeping background: Absent Voltage: Normal Focal Asymmetry: None Reactivity: Yes Sporadic ED's: None Electrographic seizures: None Clinical Events: None Hyperventilation: Not performed Photic stimulation: Not performed Breach rhythm: None EKG: Normal Sinus Rhythm Impression: EEG Result This is an abnormal inpatient routine vEEG that is characterized by a mild degree of background slowing consistent with nonspecific cerebral dysfunction. No seizures or epileptiform discharges seen. Fior Mcclure MD Neurophysiology Fellow (EEG track) PGY-5 Department of Neurology Attending Physician Note - Procedure I discussed the indications for this procedure and personally reviewed the EEG study with Dr. Gramajo (PAPER DELIVERER fellow). I agree with the interpretation and confirm the procedure report as documented in the note. Saroj Hooks MD Wardrobe Supervisor of Neurology [facility] Department of Neurology - Epilepsy Division [address] [place] [address] - [facility] floor [place] [id number] Cosigned by Saroj Hooks MD at 08/20/2024 9:55 AM EDT documented in this encounterOS[facility] Nurse Note* Latoya Marrufo RN - 08/20/2024 1:57 PM EDT Mynx closure device deployed at 1336 by . documented in this encounterOS[facility] Hospital Discharge instructions* Discharge Instructions* Elaina Jordan, [employer] FIELD AGENT-PAPER DELIVERER - 08/19/2024 9:39 AM EDT Please take these discharge instructions to your primary care doctor follow appointment to show them,keep them for your reference and refer to them often for follow up appointments. It is best to write your appointments on a personal calendar so you do not miss them. Call if you need to change any appointments please. Keep an up-to-date medication list with you at all times. Stroke Education: visit [email or web address] What are the most common symptoms of stroke? The following are the most common symptoms of stroke. However, each individual may experience symptoms differently. If any of these symptoms are present, call 911 (or your local ambulance service) immediately. Treatment is most effective when started immediately. Symptoms may be sudden and include: -Weakness or numbness of the face, arm, or leg, especially on one side of the body -Confusion or difficulty speaking or understanding -Problems with vision such as dimness or loss of vision in one or both eyes -Dizziness or problems with balance or coordination -Problems with movement or walking -Severe headaches with no other known cause, especially if sudden onset All of the above warning signs may not occur with each stroke. Do not ignore any of the warning signs, even if they go away - take action immediately. The symptoms of stroke may resemble other medical conditions or problems. Always consult your physician for a diagnosis. We have provided both written and verbal education to the patient and family regarding ischemic andhemorrhagic strokes. We have discussed the warning signs/symptoms as well as causes of stroke. We have discussed the importance of activating 911/EMS in the event of these symptoms. We have reviewed the patient's personal risk factors as well as education on reducing these risk factors. [facility] Personalized Stroke Treatment Plan My Stroke Type: [] Ischemic Stroke (Blockage of blood flow to the brain) [x] Hemorrhagic Stroke (Bleeding in the brain) [] TIA- Transient Ischemic Attack (mini-stroke) My Risk Factors Include: [x] High Blood Pressure [] Diabetes [] High Cholesterol [] Heart Disease [x] Atrial Fibrillation (Irregular Heart Rate) [] Smoking/Vaping/E-Cigarettes [] Obesity [] Clotting Disorder [] Alcohol Abuse [] Drug Abuse [] Prior History [] Family History [] Obstructive Sleep Apnea My Follow-Up Treatment Goals: [x] Blood Pressure < 140/90 [] Stop Smoking, Vaping, and/or using E-Cigarettes Immediately [] LDL < 70 [] HgA1C levels < 7% [x] Decrease BMI to < 25 [x] Take all ordered medications [] Avoid non-prescription or [id number] medication not cleared by your physician [x] Limit Alcohol use to no more than 1 drink per day for females and 2 drinks per day for males [] Do not drive until cleared [x] Follow up with PCP (Primary Care Provider) within a week of discharge to home [x] Follow-up with Neurovascular (Stroke Doctor) [x] Follow-up with Occupational,physical and speech therapy if ordered [x] Watch out for depression and seek treatment if needed Patient Stroke Resources CONTACTS FOR NEUROVASCULAR SERVICE: - Please first consider reaching out to your PCP (Primary Care Provider) for ongoing care needs andguidance. - You may call the neurovascular doctors office at [phone], if you have questions Fri-Fri between 8:30 am and 4:30 pm. - For off hours or the weekend you may call the office or the hospital wastewater treatment operator at and ask for the stroke resident environmental issues instructor to be paged. - If you have any other questions or needs, please call Rukhsana AYOUB, RN, Stroke Nurse Navigator at [phone] Mon-Fri between 7:00am and 3:00pm. - Additional assistance may be found by reaching out to our Case Management Office at [phone]. *In the event of an Emergency: If you have a physical or psychiatric emergency call 211 or go to your local emergency department. You should also call your outpatient provider's emergency number. Other reference numbers: [facility] Intake Office at [phone]; [facility] at 641-386-3131; or Suicide Prevention Hotline at 531-525-0854. *Helpful phone numbers: Free Crisis Hotline: 4-112-418-TALK ( ) Suicide Hotline: 285.100.4964 Seniors Suicide Hotline: 580.881.5560 [facility]: 419.666.4404 [facility] [place]: 725.708.3333 (free counseling) [facility] Access Hotline: 705-680-WZSH (000-491-5713) 24-hour crisis text hotline: Text the word 4hope to 973-295 for crisis support. Texting this number is free if you have [employer], [employer], [employer] or Sprint. [facility] Financial Assistance: If you want to learn more about these programs, please call .There are three programsto help you with the cost of your medical care: Medicaid, Hospital Care Assurance Program (HCAP) & virgie If you are without Insurance and believe you may qualify for Medicaid/public assistance: The [facility] Department of Job and Family Services can now process phillips (TANF), food (SNAP) and Medicaid Applications over the phone. Please call 9-638-055[facility] (4665) and apply over the phone or apply online at www.benefits.[place].gov. Friday-Friday 8am-12pm noon. Medication Assistance Programs [employer] members can buy 100+ common prescriptions for FREE, $3 or $6. Annual membership is $36 for individuals and $72 for families (up to 6 people, including pets). Sign up online or enroll at your nearest pharmacy! [employer], web site can provide a significant number of coupons for medications at a much lower [place]. [place] Department of Aging The Department of Aging administers programs and services to meet the needs of older [place]. Services and resources offered per county may include transportation, housekeeping, meals and nutrition, personal care, case management, safety monitoring, home medical equipment, legal services, junior financial analyst, health and wellness, education, caregiver support, respite care, etc. Call to be connected to the area agency on aging serving your community or visit aging.[place].gov/find-services. Request a consultation with a community resource expert at ltssi.age.[place].gov/ [facility] Stroke Support [facility] Stroke Support Group is for stroke survivors, friends, and family members. Meets on the Friday of each month from 6:30pm-7:30pm at [facility] ([address]; [place] [address]). Contact Azeb Sin, at [phone] or [email or web address]. If you are outside of the [place] area, contact [employer] at www.stroke.org or 0-244-6-STROKE or for support groups in your area. You may also refer to the Your Care after a Stroke education booklet at go.[facility]/ffcf0607 for additional resources. POSTOPERATIVE CRANIOTOMY DISCHARGE INSTRUCTIONS: Education Regarding your Medication: If you are taking aspirin, clopidogrel (Plavix), warfarin (Coumadin) or other blood thinners, you must talk to your surgeon about when to restart these medicines. Unless approved by your surgeon, do not take any non-steroidal anti-inflammatory drugs, called NSAIDs. These medicines include ibuprofen (Motrin or Advil), naprosyn (Naproxen or Aleve), and arthritismedications such as Celebrex for several weeks following surgery. Please discuss with your neurosurgeon prior to taking any of these medications. PAIN MEDICATION: As first line pain medication, please use: Tylenol Extra-strength/Acetaminophen, 2 tablets every 4-6 hours as needed for mild pain. DO NOT TAKE MORE THAN 4000MG PER DAY. A prescription for a stronger pain medicine has been sent home with you. Please use this as needed as a second pain medication for breakthrough pain between Tylenol doses. Pain medication is typically not refilled by your neurosurgeon. If your pain continues for longer than 1-2 weeks after surgery, please see your primary care physician for ongoing pain management. Narcotic pain medication may cause constipation. Be sure to take stool softeners or laxatives whileyou are on narcotic pain medication. Take pain medication with food to prevent nausea. Wean yourself off narcotics as soon as you are able. These can cause rebound headaches and may evenmake headaches worse. Do not drink any alcoholic beverages until approved by your surgeon. This may thin your blood and increase your risk of bleeding. Do not drive after taking prescription pain medicine as it can make you drowsy. Activity: To protect your health, follow these guidelines from your surgeon: For 2 weeks after surgery, keep your head elevated to prevent swelling. Use extra pillows while sleeping and do not lie flat. Walk as you are able. Start with short distances and work up to longer times standing and walking. Tell your surgeon about your progress at your follow-up visit. Use the hand railing for support when going up and down stairs. It is normal for your energy level and sleep patterns to change after surgery. These things slowly return to normal as you start your usual activities. Get extra sleep at night and take naps during the day while you heal. Remember, everyone s recovery is different, so don t get discouraged. You may do light housework, such as dusting, but not vacuuming. Limit lifting, pushing or pulling to 5 pounds or less. This is about gallon of milk. A gallon weighs 8 pounds and will be too heavy. Do not do any activity or exercise that makes your sweat or bend over so your head is lower than your heart. Do not drive or operative power tools or machinery until approved by your surgeon. For one month following surgery, do not sit in a car for more than 45 minutes. If you take a longertrip than 60 minutes, stop every hour and get out and walk around for a few minutes. Avoid all tub baths, hot tubs and swimming pools until your surgeon has given approval to soak the incision in water. Your surgeon will instruct you when it is safe to return to work. Diet: You may resume your home diet. It is important to get enough fluid to stay hydrated to prevent dizziness and falling. If you are diabetic, it is important to maintain tight blood sugar control to promote wound healing. When to call your Surgeon's Office: If you have one or more of these signs call your surgeon s office. The phone number will be under the follow up section of your discharge instructions: Temperature of 100.4 degrees Fahrenheit or greater (38 degrees Celsius) Drainage from your incision Skin around the incision becomes red, warm, swollen or painful Feeling any fluid dripping from your nose or your ears When to go to the Emergency Department: If you have any of these signs go to the nearest emergency department or call 911 right away: Any change in alertness; feel more sleepy than usual, restless and/or confused Breathing problems Chest pain (including chest pressure or tightness) Vision problems or a change in vision New problems with weakness, numbness, balance, walking or inability to move an arm or leg. Problemsmay be only on one side of the body. Change in face appearance, such as drooping on one side of the face Not able to speak or problems when talking Trouble swallowing Seizures Nausea and vomiting that continues or gets worse Severe headache or headache with a stiff neck Staple/stitches Removal: Your dheeraj/sutures need to remain in place for approximately 10-14 days. To have them removed you can: Call your surgeon s office to schedule a time Call your primary care doctor to have them removed at least 10 days after surgery, if approved by your surgeon. Incision Care: Check your incision every day for redness or drainage. It is normal to have some bruising, swellingor tenderness around the incision. NEVER leave a wet or dirty dressing on your incision. If your incision is damp or dirty it can delay healing and lead to infection. Do not scratch or pick at the incision as it heals. Protect your incision by: Cleaning the area around the wound and putting on a new dressing Taking a shower if it has been 3 or more days after surgery Do not take a tub bath or submerge your incision under water Dry the wound completely Do not apply any of these products to the wound unless told to do so by your surgeon: lotions, creams, ointments (such as Neosporin), alcohol, hydrogen peroxide, powder, or sunscreen Protect your wound from sun exposure and avoid all sun if possible. If you do go out in the sun, wear a CLEAN, very loose fitting hat or scarf and immediately remove if when you are inside. Tobacco use delays healing. If you need help with quitting tobacco, please talk with your doctor. Showering: For the first 2 days or 48 hours after surgery, do sponge baths. Avoid getting the incision and dressing wet. For example, if you had your surgery on Friday, do only sponge baths until Friday. Beginning the third day after surgery: If you are sent home with a dressing covering your incision, you may remove the dressing once you are home. Your wound may be left open to air after that. You may take a shower and wash your hair. Do not take a tub bath. Use baby shampoo and gently wash your hair and the incision. Then rinse it well with water. When drying off, use a clean towel. Very gently pat the wound dry. Do not rub with a towel. It is also okay to let the wound air dry. If your wound is closed with sutures or dheeraj, they need to be removed in 10- 14 days. You can use a business division chair on the lowest, coolest setting to help dry your incision after showering. Do not use a high heat setting to avoid burning the skin. Contact Information: You may call your neurosurgeon s office, , Friday through Friday between 8:30am and 4:30pm if you have questions. The outpatient nurse may also be available to answer questions at that time. For after hours or the weekend, you may call the office which will take you to the answering service. Patient experience survey reminder You may receive a survey in the mail within a few weeks regarding your hospitalization. This helps us to improve the care and services we provide at [facility]. We truly appreciate you taking the time to fill this out. We particularly welcome any specific comments you may have (positive or constructive regarding yourexperience at [facility] so that we may continue to strive towards excellence for our patients. * Attachments The following attachments cannot be sent through Care Everywhere. * Angiogram: General: Post-op (Turkmen) documented in this [facility] Emergency department Note* Bc Looney MD - 08/17/2024 11:24 PM EDT Images from the original note were not included. Signout: Amanda Avendano Justice 69 y.o. female received in sign-out as per below. ED Course as of 08/18/241909Aug 17, 20246 SO: R sided paresthesias, at OSH L parietal intraparenchymal hematoma, x1 labetalol then. Transferred. - Pending: NSGY recs then admit 2323 Per neuro: If no acute intervention from NSGY, will admit [facility] PCU under Dr. Valente Looney MD, MS Emergency Medicine, PGY-2 Bc Looney MD Resident 08/18/241909 * Magalie Brown, DO - 08/17/2024 10:00 PM EDT Images from the original note were not included. EMERGENCY DEPARTMENT ENCOUNTER CHIEF COMPLAINT Stroke alert HPI Amanda Reyna is a 69 y.o. female who has no past medical history on file. This patient presents as a stroke alert. 69 yo F with Pmhx of Crohn's, HOWIE, intracranial cancer (s/p craniotomy 14 years ago) presents for cva. At 4:30 p.m. today, patient started having right-sided paresthesias to include extremities and face. She went to outside hospital and was found to have a left parietal hemorrhagic stroke. They gave 1 dose of labetalol as she had 1 blood pressure with a systolic greater than 140, and then transferred her here for evaluation. PAST MEDICAL HISTORY No past medical history on file. SURGICAL HISTORY No past surgical history on file. CURRENT MEDICATIONS No current outpatient medications on file. ALLERGIES Not on File FAMILY HISTORY No family history on file. SOCIAL HISTORY Social History Socioeconomic History Marital status: Spouse name: Not on file Number of children: Not on file Years of education: Not on file Highest education level: Not on file Occupational History Not on file Tobacco Use Smoking status: Not on file Smokeless tobacco: Not on file Substance and Sexual Activity Alcohol use: Not on file Drug use: Not on file Sexual activity: Not on file Other Topics Concern Not on file Social History Narrative Not on file Social Drivers of Health Financial Resource Strain: Not on file Food Insecurity: Not on file Transportation Needs: Not on file Physical Activity: Not on file Stress: Not on file Social Connections: Not on file Personal Safety: Not on file Housing Stability: Not on file PHYSICAL EXAM Vital Signs:BP 140/66 Pulse 75 Resp 19 SpO2 97% Constitutional: Well appearing, in no acute distress. HENT: Normocephalic and atraumatic. Cardiovascular: Normal rate and regular rhythm. Pulmonary: Effort normal, non-labored. Abdominal: Abdomen soft, non-distended. There is no tenderness. No rebound or guarding. MSK: No deformities, joint effusions. Neurological: Oriented to person, place, and time. NIHSS (Provider) Flowsheet Row First Filed Value Provider NIH Stroke Scale NIH Interval (Provider) admission filed on 08/17/20242148 NIH Level of Conciousness (Provider) 0 [Fully alert and oriented x 4] filed on 08/17/20242148 NIH LOC Questions (Provider) 0 filed on 08/17/20242148 NIH LOC Commands (Provider) 0 filed on 08/17/20242148 NIH Best Gaze (Provider) 0 filed on 08/17/20242148 NIH Visual (Provider) 0 filed on 08/17/20242148 NIH Facial Palsy (Provider) 0 filed on 08/17/20242148 NIH Left Arm Motor (Provider) 0 filed on 08/17/20242148 NIH Right Arm Motor (Provider) 0 filed on 08/17/20242148 NIH Left Leg Motor (Provider) 0 filed on 08/17/20242148 NIH Right Leg Motor (Provider) 0 filed on 08/17/20242148 NIH Limb Ataxia (Provider) 0 filed on 08/17/20242148 NIH Sensory (Provider) 1 [RUE tingling with light touch. Intact in R face and RLE at this time] filed on 08/17/20242148 NIH Best Language (Provider) 0 filed on 08/17/20242148 NIH Dysarthria (Provider) 0 filed on 08/17/20242148 NIH Extinction and Inattention (Provider) 0 filed on 08/17/20242148 NIH Total Score (Provider) 1 filed on 08/17/20242148 Is NIH=0 Within 180 min of Last Known Well Time? -- Skin: Skin is warm and dry. No rashes or wounds noted. Psychiatric: Appropriate mood and affect. Rhythm: normal sinus Rate: normal [place]: normal Ectopy: none Conduction: normal ST Segments: normal T Waves: normal Q Waves: none Clinical Impression: no acute changes Labs: Results for orders placed or performed during the hospital encounter of 08/17/24 [facility] 7 - ED Result Value Ref Range Sodium 135 135 - 145 mmol/L Potassium 3.6 3.5 - 5.0 mmol/L Chloride 99 98 - 108 mmol/L CO2 29 21 - 31 mmol/L Glucose 109 Nonfastin-179 mg/dL; Fastin-99 mg/dL BUN 10 7 - 25 mg/dL Creatinine 0.64 0.50 - 1.20 mg/dL Bun/Crea Ratio 16 Osmolality (Calculated) 282 278 - 305 mOsm/kg Anion Gap 11 7 - 17 mmol/L eGFR, CKD-EPI, Female >90 >=60 mL/min/1.73m2 HEPATIC FUNCTION PANEL Result Value Ref Range Albumin 3.4 (L) 3.5 - 5.0 g/dL Bilirubin Direct 0.1 <0.3 mg/dL Bilirubin Total 0.4 <1.5 mg/dL ALP 46 32 - 126 U/L ALT 16 9 - 48 U/L AST 17 10 - 39 U/L Total Protein 5.7 (L) 6.4 - 8.3 g/dL PTINR-STROKE Result Value Ref Range PT 13.5 11.9 - 14.2 sec INR 1.0 0.9 - 1.1 PTT Result Value Ref Range PTT 25.1 24.0 - 34.3 sec CBC AND ELECTRONIC DIFF Result Value Ref Range WBC Count 7.85 3.99 - 11.19 K/uL RBC Count 4.81 3.91 - 5.04 M/uL Hemoglobin 12.8 11.4 - 15.2 g/dL Hematocrit 39.8 34.9 - 44.3 % Mean Cell Volume 82.7 79.6 - 97.7 fL Mean Cell Hgb 26.6 25.9 - 33.9 pg Mean Cell Hgb Conc 32.2 31.4 - 35.9 g/dL RBC Distribution 13.6 10.8 - 14.9 % Platelet Count 198 150 - 393 K/uL Mean Platelet Volume 11.3 8.5 - 12.2 fL DIFF STATUS Electronic Differential Segs + Bands Auto 63.3 % Immature Grans % 0.4 % Lymphocyte % Auto 25.0 % Monocyte % Auto 8.0 % Eosinophil % Auto 2.3 % Basophil % Auto 1.0 % Nucleated RBC 0.0 <=0.2 /100 WBC Segs + Bands,Absolute Auto 4.97 1.64 - 7.28 K/uL Immature Grans Absolute <0.04 <=0.08 K/uL Abs Lymph Auto 1.96 1.16 - 3.51 K/uL Abs [place] Auto 0.63 0.22 - 0.87 K/uL Abs Eos Auto 0.18 0.00 - 0.42 K/uL Abs Baso Auto 0.08 0.00 - 0.15 K/uL GLUCOSE POC Result Value Ref Range Glucose (POC Device) 99 Nonfasting Glucose: 70-179 mg/dL POC Sample Type CAPBL Radiology: CT STROKE HEAD-STROKE ALERT ONLY Final Result IMPRESSION: 1. Acute left parietal intraparenchymal hematoma near vertex. 2. No significant midline shift, herniation, hydrocephalus. 3. Suspect remote left basal ganglial lacunar insults. Correlate with outside imaging to ensure stability. Findings were discussed with Ana Lilia Hurley DO at 2157 on 08/17/2024. I personally viewed and interpreted these images and I have reviewed and approved this report. STROKE ANGIO BRAIN/NECK (Results Pending) ED COURSE & MEDICAL DECISION MAKING Assessment: Amanda Reyna is a 69 y.o. female who presents with: Level A stroke alert Ddx is broad and includes ischemic stroke, hemorrhagic stroke, TIA, complex migraine, carotid dissection, other neurologic etiology, acs. Will discuss with neurology, obtain stroke labs including cbc, chemistry, troponin, ekg, UA. Will get CT head, CTA and Ctperfusion. Pending this, discussion with neurology on final disposition, CDU v admit to neurovascular. Medical Decision Making Patient is alert and oriented upon arrival and vital signs have been stable. Medication ordered to keep her blood pressure in range. Neuro saw patient at bedside and we were unable to find a CTA so that was ordered for here along with a repeat CT head. Neurosurgery was consulted. Transferred care to to Dr Baer at shift change with the plan as pending where to admit this patient Amount and/or Complexity of Data Reviewed Independent Historian: EMS External Data Reviewed: labs, radiology and notes. Labs: ordered. Decision-making details documented in ED Course. Radiology: ordered. Decision-making details documented in ED Course. ECG/medicine tests: ordered and independent interpretation performed. Decision- making details documented in ED Course. Risk Prescription drug management. On 08/17/2024 I saw and examined the patient. I discussed the history and examination with the resident and agree with the plan of care. I reviewed imaging and labs that were obtained. Note was written using voice recognition software. Please excuse any misspellings or word substitutions. Magalie Brown DO 08/17/24 2238 * Sultana Crawley MD - 08/17/2024 9:51 PM EDT Images from the original note were not included. DEPARTMENT OF EMERGENCY MEDICINE CHIEF COMPLAINT No chief complaint on file. HPI Amanda Reyna is a 69 y.o. female with history of atrial fibrillation, prior craniotomy 2/2 brain mass 14 years ago who presents as a transfer from an outside hospital as a hemorrhagic stroke alert. LKW 1630 today, acute onset of R-sided numbness to face and extremities. Found to have L parietal intracranial hemorrhage. She takes 81mg ASA but otherwise takes no blood thinners. PAST MEDICAL HISTORY reviewed and noncontributory other than as per HPI and: No past medical history on file. SURGICAL HISTORY reviewed and noncontributory other than as per HPI and: No past surgical history on file. CURRENT MEDICATIONS reviewed and noncontributory other than as per HPI and: Current Facility-Administered Medications Medication Dose Route Frequency Provider Last Rate Last Admin hydrALAZINE (APRESOLINE) injection 10 mg 10 mg Intravenous Q10 MIN PRN Magalie T Kevin, DO Labetalol (NORMODYNE) injection 20 mg 20 mg Intravenous Q10 MIN PRN Magalie T Kevin, DO No current outpatient medications on file. ALLERGIES Not on File Patient denies further drug allergies FAMILY HISTORY reviewed and noncontributory other than as per HPI and: No family history on file. SOCIAL HISTORY reviewed and noncontributory other than as per HPI and: Social History Socioeconomic History Marital status: Spouse name: Not on file Number of children: Not on file Years of education: Not on file Highest education level: Not on file Occupational History Not on file Tobacco Use Smoking status: Not on file Smokeless tobacco: Not on file Substance and Sexual Activity Alcohol use: Not on file Drug use: Not on file Sexual activity: Not on file Other Topics Concern Not on file Social History Narrative Not on file Social Drivers of Health Financial Resource Strain: Not on file Food Insecurity: Not on file Transportation Needs: Not on file Physical Activity: Not on file Stress: Not on file Social Connections: Not on file Personal Safety: Not on file Housing Stability: Not on file PHYSICAL EXAM BP 140/66 Pulse 75 Resp 19 SpO2 97% GENERAL: Well-appearing. Appears stated age. No acute distress. EYES: No conjunctival injection or pallor. No scleral icterus. No eye discharge. PERRLA. EOMI. HENT: Atraumatic, Normocephalic. Trachea midline. CV: Regular rate and rhythm, nl S1/S2, no m/r/g. No peripheral edema or JVD. Brisk cap refill and 2+ pulses in all extremities. RESP: Appropriate effort. CTAB without wheezes rales or rhonchi. Symmetric breath sounds. GI: Soft, not distended. Nontender. Normoactive bowel sounds. No obvious masses. MSK: No obvious injuries, lacerations, or deformities. SKIN: Warm and dry. No obvious rashes. NEURO: AOx3. Answers questions appropriately. GCS 15. CN II-XII intact. 5/5 strength in all extremities. Decreased sensation to R face and extremities. Coordination intact on finger to nose and heel to conde. PSYCH: Appropriate mood and affect. NIHSS (Provider) Flowsheet Row First Filed Value Provider NIH Stroke Scale NIH Interval (Provider) admission filed on 08/17/20242148 NIH Level of Conciousness (Provider) 0 [Fully alert and oriented x 4] filed on 08/17/20242148 NIH LOC Questions (Provider) 0 filed on 08/17/20242148 NIH LOC Commands (Provider) 0 filed on 08/17/20242148 NIH Best Gaze (Provider) 0 filed on 08/17/20242148 NIH Visual (Provider) 0 filed on 08/17/20242148 NIH Facial Palsy (Provider) 0 filed on 08/17/20242148 NIH Left Arm Motor (Provider) 0 filed on 08/17/20242148 NIH Right Arm Motor (Provider) 0 filed on 08/17/20242148 NIH Left Leg Motor (Provider) 0 filed on 08/17/20242148 NIH Right Leg Motor (Provider) 0 filed on 08/17/20242148 NIH Limb Ataxia (Provider) 0 filed on 08/17/20242148 NIH Sensory (Provider) 1 [RUE tingling with light touch. Intact in R face and RLE at this time] filed on 08/17/20242148 NIH Best Language (Provider) 0 filed on 08/17/20242148 NIH Dysarthria (Provider) 0 filed on 08/17/20242148 NIH Extinction and Inattention (Provider) 0 filed on 08/17/20242148 NIH Total Score (Provider) 1 filed on 08/17/20242148 Is NIH=0 Within 180 min of Last Known Well Time? -- ED COURSE & MEDICAL DECISION MAKING Assessment: Amanda Reyna is a 69 y.o. female who presents as a Level 2 stroke alert with the following neurological deficits: R face and extremity numbness. The patient was met in the CT scanner by myself and the neurology resident. The patient was found to be hemodynamically stable and protecting airway. NIH by my exam was 1. DDx: ICH Plan: - Stroke Alert - Labs: CBC, chemistries, coags, LFTs, POC glucose - Imaging: CT Head w/o contrast, CTA - BP control with prn Labetalol/Hydralazine - Neuro checks - Neurovascular consult, NSGY ED Course and Medical Decision-Making: I anticipate pt will require admission to NSGY and regular monitoring. ED Course as of 08/17/242328Aug 17, 20242216 CT STROKE HEAD-STROKE ALERT ONLY 1. Acute left parietal intraparenchymal hematoma near vertex. 2. No significant midline shift, herniation, hydrocephalus. 3. Suspect remote left basal ganglial lacunar insults. Correlate with outside imaging to ensure stability. Disposition: Admit This patient was discussed with the attending physician who was in the immediate care area during the evaluation and decision making process. Sultana Crawley MD Resident 08/17/24 1874 * Jakob Talamantes RN - 08/17/2024 9:41 PM EDT Pt arrives at this time to CT scanner as stroke alert. BG on arrival 99. Pt initially had full right side numbness, NIH was 1, received labetalol for BP control. Outside scans positive for intraparenchymal hemorrhage. Transfer note as listed below: Symptoms: right sided tingling and numbness LKW: 1630 Any anticoagulant use: 81 mg ASA Pt in CT. RH to call back once pt returns. L parietal hemorrhage Transfer to ED LEVEL A Hemorrhagic stroke * Jackson Najera RN - 08/17/2024 9:41 PM EDT Bed: E038 Expected date: 08/17/24 Expected time: 12:00 AM Means of arrival: Comments[facility]* Talat Arnold MD - 08/17/2024 10:08 PM EDT Neurosurgery Consult Note Reason for Consultation -- Hemorrhagic stroke Chief Complaint: bleed HPI Ms. Amanda Reyna is a 69 y.o. female w/ a phx of anemia, SVT. CAD, Crohn's disease, s/p L parietal convexity meningioma resection at [facility] 2009 (previously on Eliquis but discontinued followingcranial surgery) now on ASA 81 mg for CAD (LD 6/10 AM) who presents to the ED as a hemorrhagic stroke alert. CT head demonstrates a L parietal hemorrhage (without underlying vascular malformation or aneurysm on CTA) measuring 2.4 x 1.9 x 2.5. No MLS or local ME. ICH score GCS: Vol. >30mL: IVH: Infratentorial: Age >=80: 0 - GCS 13-15 0 - no 0 - no 0 - no 0 - no Total: 0 She takes ASA for CAD, LD this AM ROS: All other systems are negative except as mentioned in HPI No past medical history on file. No past surgical history on file. No family history on file. Allergies Not on File Infusions Scheduled Meds PRN Meds: hydrALAZINE, Labetalol Home Meds Prior to Admission medications Not on File Vitals Temp: [98 F (36.7 C)] 98 F (36.7 C) Pulse (Heart Rate): [72-75] 72 Resp Rate: [19-21] 21 BP: (133-140)/(58-66) 133/58 O2 Sat (%): [97 %] 97 % Physical General: NAD Cards: no obvious JVD Resp: no stridor or retractions Abd: soft NTND Ext: no edema Mental Status: Awake, alert, oriented x3. Cooperative, follows commands. Language fluent. Cranial Nerves: PERRL, EOMI bilaterally. Facial sensation intact in all 3 branches. Facial movementintact and symmetric. SCM/Trap strength 5/5 bilaterally. Tongue is midline. Motor Function: SA EF EE WF WE FG DI HF KF KE PF DF Right 5 5 5 5 5 5 5 5 5 5 5 5 Left 5 5 5 5 5 5 5 5 5 5 5 5 Sensory Function: Sensation is intact to light touch and painful stimulation throughout except R chin to lateral thigh numbness Coordination: Rvjnbz-tp-[id number] intact bilaterally. Labs Bun/Creat/Cl/CO2/Glucose: --/--/--/--/99 (08/18 2139) No results for input(s): PT, INR in the last 72 hours. Imaging: CT STROKE HEAD-STROKE ALERT ONLY (Results Pending) CT STROKE ANGIO BRAIN/NECK (Results Pending) A/P: Amanda Reyna is a 69 y.o. female w/ a phx of Crohn's, L parietal craniotomy for meningioma resection (2009) currently on ASA for CAD, LD 6/10 AM who presents as a hemorrhagic stroke alert, ICH score of 0 and HCT demonstrating a 2.4 x 1.9 x 2.5 cm L parietal ICH w/o MLS or ME. She is intact on exam except intermittent numbness on the R side ranging from the chin to the lateral thigh. NIH 1. Plan: - Goal SBP<140, INR<1.4, Platelets >100k - Hold all antiplatelet agents and anticoagulation - Recommend repeat HCT for interval examination/stability - Neurovascular admission - No reversal at this point; No longer taking Eliquis - recommend Keppra 1g x 7 days bid for seizure prophylaxis - recommend MRI brain without when able - NSGY to follow for imaging Staff: Dr. Mcdonald Covering: NS2 ([phone]) ## neurosurgery coverage changes at 0530/1730; if 0530 or 1730 has passed since original consult note placed, please page covering pager above ## Complexity. Wound Documentation Any conditions listed below are present on admission unless otherwise specified. . Cosigned by Marian Mcdonald MD at 08/18/2024 4:40 PM EDT Associated attestation - Marian Mcdonald MD - 08/18/2024 4:40 PM EDT I reviewed all pertinent notes, imaging, and laboratory work in the medical record. I personally saw and examined the patient and discussed the case with resident. I agree with the findings and plan,as stated below. History of left parietal meningioma resection. Presented with left parietal hemorrhage with right sensory deficits. No obvious underlying lesion on MRI - plan for diagnostic angiogram. NPO at midnight. Marian Mcdonald MD Wardrobe Supervisor of Neurological Surgery [id number] * Zena Hurley, - 08/17/2024 8:42 PM EDT Images from the original note were not included. Neurovascular Evaluation Note Evaluation Date: 08/17/2024 Unit: [id number] Consultation was requested by Dr. Pratibha Victor MD Patient status: Inpatient Length of stay: 0 days Reason for Consult/Chief Complaint R sided numbness and tingling History of Present Illness Amanda Reyna is a 69 y.o. 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 A stroke alert was called for STAT consultation. LKW 1630 08/17. Around this time the patient developed acute onset of numbness in the R side of her face, her R arm, and her R leg down to her thigh. Patient endorses mild headache in the back of her head rated 1/10 which has been stable, not worsening. No blurry, double, or loss of vision. No traumatic injuries (did have a fall last February withheadstrike and brief LOC but nothing recent). Feels numb and a little clumsy in the R arm but not necessarily weak. She takes ASA 81 mg daily. Last dose was last night about 9 pm. She has taken all her morning and afternoon meds but not evening. She notes that last Friday she was in the ER for a couple of hours due to afib/RVR, they had considered cardioversion but she converted back spontaneously. She takes sotalol for this and has been told to take an extra dose when she feels like she is in afib. No hx of malignancy. Hx of grade 1 L parietal convexity meningioma that was found incidentally during workup for dizziness and subsequently resected in 2009, had followup surveillance MRIs for ~2 years which were stable. History of PE years ago as well, she reports she was on Eliquis for about 3 months but they took her off and put on aspirin. Reason for being taken off AC is unclear but she thinks related to her craniotomy. No known personal or Fhx of bleeding or clotting disorders. No personal hx of bleed or CVA. Initial BP was reportedly 130s, she did get a dose of labetalol for SBP in 140s en route. CTH at [facility] with L hemispheric ICH. She was transferred to [facility] as level A hemorrhagic stroke alert. She takes BP at home and it usually runs low to normal, never high unless she is in a lot of pain. Time of Level 1 Stroke Alert Activation (Or In House): 2129 Arrival Time of Stroke Team : 2129 Patient Location - Onset of Symptoms: Not in a healthcare setting Patient first presented to an [facility] ED facility: no Last Known Well: Date: 08/17/24 Last Known Well: Time: 163 Source of information: patient Review of Systems See HPI Neurovascular-specific History / Information Home antiplatelet/anticoagulation therapy: ASA 81 mg Patient Current Risk Factors: Stroke risk factors include hypertension or atrial fibrillation. Prior stroke history: no. Family Hx of Stroke: Parents: unknown Siblings: unknown Stroke Diagnostic/Treatment Eligibility Information TPA not recommended due to ICH Stroke Clinical Assessment Information: NIHSS (Provider) Flowsheet Row First Filed Value Provider NIH Stroke Scale NIH Interval (Provider) admission filed on 08/17/20242148 NIH Level of Conciousness (Provider) 0 [Fully alert and oriented x 4] filed on 08/17/20242148 NIH LOC Questions (Provider) 0 filed on 08/17/20242148 NIH LOC Commands (Provider) 0 filed on 08/17/20242148 NIH Best Gaze (Provider) 0 filed on 08/17/20242148 NIH Visual (Provider) 0 filed on 08/17/20242148 NIH Facial Palsy (Provider) 0 filed on 08/17/20242148 NIH Left Arm Motor (Provider) 0 filed on 08/17/20242148 NIH Right Arm Motor (Provider) 0 filed on 08/17/20242148 NIH Left Leg Motor (Provider) 0 filed on 08/17/20242148 NIH Right Leg Motor (Provider) 0 filed on 08/17/20242148 NIH Limb Ataxia (Provider) 0 filed on 08/17/20242148 NIH Sensory (Provider) 1 [RUE tingling with light touch. Intact in R face and RLE at this time] filed on 08/17/20242148 NIH Best Language (Provider) 0 filed on 08/17/20242148 NIH Dysarthria (Provider) 0 filed on 08/17/20242148 NIH Extinction and Inattention (Provider) 0 filed on 08/17/20242148 NIH Total Score (Provider) 1 filed on 08/17/20242148 Is NIH=0 Within 180 min of Last Known Well Time? -- Stroke Scales Flowsheet Row Most Recent Value ICH Score (Calculated) 0 filed on 08/17/20242157 ICH Volume (ml) (Calculated Score) 3.31 filed on 08/17/20242157 NIH Total Score (Provider) 1 filed on 08/17/20242148 Past Medical History Medical History: Past Medical History: Diagnosis Date Atrial fibrillation Crohn's disease Restless leg syndrome SURGICAL HISTORY: No past surgical history on file. SOCIAL HISTORY: Social History Tobacco Use Smoking status: Former Types: Cigarettes Smokeless tobacco: Never Vaping Use Vaping status: Never Used Substance Use Topics Alcohol use: Not Currently Drug use: Never Medications PRIOR TO ARRIVAL MEDS: Prior to Admission medications Not on File Current Meds: Current Facility Administered Meds: Current Facility-Administered Medications Medication Dose Route Frequency Provider Last Rate Last Admin Acetaminophen (TYLENOL) tablet 325 mg 325 mg Oral Q4H PRN [facility], DO Or Acetaminophen (TYLENOL) tablet 325 mg 325 mg Per NG tube Q4H PRN [facility], DO Or Acetaminophen (TYLENOL) tablet 650 mg 650 mg Oral Q4H PRN [facility], DO Or Acetaminophen (TYLENOL) tablet 650 mg 650 mg Per NG tube Q4H PRN [facility], DO [START ON 08/18/2024] Gabapentin (NEURONTIN) capsule 400 mg 400 mg Oral TID [facility], DO hydrALAZINE (APRESOLINE) injection 10 mg 10 mg Intravenous Q1H PRN [facility], DO Or hydrALAZINE (APRESOLINE) injection 20 mg 20 mg Intravenous Q1H PRN [facility], DO Labetalol (NORMODYNE) injection 10 mg 10 mg Intravenous Q1H PRN [facility], DO Or Labetalol (NORMODYNE) injection 20 mg 20 mg Intravenous Q1H PRN [facility], DO [START ON 08/18/2024] Latanoprost (XALATAN) 0.005 % ophthalmic solution 1 drop 1 drop Both Eyes QHS [facility], Ondansetron 4mg/2ml (ZOFRAN) injection 4 mg 4 mg Intravenous Q6H PRN [facility], Or Ondansetron (ZOFRAN) tablet 4 mg 4 mg Oral Q6H PRN [facility], DO oxyCODONE-acetaminophen (PERCOCET) 5-325 MG per tablet 1 tablet 1 tablet Oral Q6H PRN [facility], DO [START ON 08/18/2024] Pantoprazole (PROTONIX) tablet DR 40 mg 40 mg Oral Daily [facility], Polyethylene glycol (MIRALAX) packet 17 g 17 g Oral Daily PRN [facility], DO Or Polyethylene glycol (MIRALAX) packet 17 g 17 g Per NG tube Daily PRN [facility], DO [START ON 08/18/2024] Primidone (MYSOLINE) tablet 50 mg 50 mg Oral 4x daily [facility], DO [START ON 08/18/2024] rOPINIRole (REQUIP) tablet 2.5 mg 2.5 mg Oral QHS laya Hurley DO [START ON 08/18/2024] Senna (SENOKOT) tablet 8.6 mg 8.6 mg Oral Daily laya Hurley DO Or [START ON 08/18/2024] Senna (SENOKOT) tablet 8.6 mg 8.6 mg Per NG tube Daily Zena Hurley DO [START ON 08/18/2024] sodium chloride 0.9% 1,000 ml with potassium chloride 20 mEq premix IV solution Intravenous Continuous [facility] Tony DO Xavi [START ON 08/18/2024] Sotalol (BETAPACE) tablet 80 mg 80 mg Oral Q12HNS laya Tony DO Xavi [START ON 08/18/2024] Timolol maleate (TIMOPTIC) 0.5 % ophthalmic solution 1 drop 1 drop Both Eyes BID laya Jimenez DO Xavi Current Outpatient Medications Medication Sig Dispense Refill augmented betamethasone dipropionate 0.05 % Cream Apply 1 Application topically 2 times daily. betamethasone dipropionate 0.05 % Ointment Apply 1 Application topically daily. buPROPion 150 MG tablet XL Take 1 tablet by mouth daily every morning. cephALEXin 250 MG capsule Take 1 capsule by mouth at bedtime. clobetasol 0.05 % Cream Apply 1 Application topically 2 times daily. Clotrimazole 1 % Cream Apply 1 Application topically 2 times daily. Gabapentin 400 MG capsule Take 1 capsule by mouth 3 times daily. hydroCHLOROthiazide 25 MG tablet Take 1 tablet by mouth daily. hyoscyamine 0.125 MG Tab Dispersible tablet Take 1 tablet by mouth every 6 hours as needed. Latanoprost 0.005 % Solution ophthalmic solution Place 1 drop in both eyes at bedtime. oxyCODONE 5 MG tablet Take 1 tablet by mouth every 6 hours as needed. Primidone 50 MG tablet Take 1 tablet by mouth 2 times daily. Promethazine 25 MG tablet Take 1 tablet by mouth every 6 hours as needed. rOPINIRole 0.5 MG tablet Take 1 tablet by mouth 3 times daily. Sotalol 80 MG tablet Take 1 tablet by mouth 2 times daily. Timolol maleate 0.5 % Solution ophthalmic solution Place 1 drop in left eye daily. ferrous sulfate 325 (65 Fe) MG tablet Take 1 tablet by mouth 2 times daily. Pantoprazole [address] tablet DR Take 1 tablet by mouth daily. Scheduled Meds: [START ON 08/18/2024] Gabapentin 400 mg Oral TID [START ON 08/18/2024] Latanoprost 1 drop Both Eyes QHS [START ON 08/18/2024] Pantoprazole 40 mg Oral Daily [START ON 08/18/2024] Primidone 50 mg Oral 4x daily [START ON 08/18/2024] rOPINIRole 2.5 mg Oral QHS [START ON 08/18/2024] Senna 8.6 mg Oral Daily Or [START ON 08/18/2024] Senna 8.6 mg Per NG tube Daily [START ON 08/18/2024] Sotalol 80 mg Oral Q12HNS [START ON 08/18/2024] Timolol maleate 1 drop Both Eyes BID Continuous Infusions: [START ON 08/18/2024] Sodium chloride 0.9% w/potassium cl PRN Meds:Acetaminophen OR Acetaminophen OR Acetaminophen OR Acetaminophen, hydrALAZINE OR hydrALAZINE, Labetalol OR Labetalol, Ondansetron 4mg/2ml OR Ondansetron, oxyCODONE-acetaminophen, Polyethylene glycol OR Polyethylene glycol Vitals Objective Findings: Vital Signs (24hrs): Temp: [98 F (36.7 C)] 98 F (36.7 C) Pulse (Heart Rate): [67-76] 67 Resp Rate: [19-27] 27 BP: (107-140)/(56-66) 107/57 O2 Sat (%): [92 %-97 %] 92 % There is no height or weight on file to calculate BMI. Lines/Drains/Airways/Wounds: Patient Lines/Drains/Airways Status Active Lines, Drains, Airways, & Wound Overview None Physical Exam General: Laying comfortably in bed; in no acute distress. CV: RRR. Pulmonary: No increased work of breathing, Equal chest rise bilaterally, no audible wheezing. Abdomen: soft, non-tender Ext: No cyanosis, edema, or deformity Skin: No rash Neurological Examination Psych and Mental status: alert; oriented to person, place, year, and month; good attention Speech/language: fluent; comprehension intact; object naming intact; repetition intact Cranial nerves: CN II visual muhammad full to confrontation without visual extinction CN III, IV, PERRL. EOMI. CN V facial sensation intact to light touch bilaterally in V1, V2, V3 CN VII face, smile, eyebrow raise/closure symmetric CN VIII hearing grossly intact to voice CN IX & X soft palate elevates symmetrically in the midline, no dysarthria CN XI shoulder shrug full strength bilaterally CNXII tongue protrudes midline Motor: Normal bulk and tone. No drift in extremities. Coordination: Yoijcm-qk-laea intact bilaterally. Sensation: Tingling sensation in RUE with light touch Laboratory Results Diagnostics/Procedures: Labs-CBC WBC/Hgb/Hct/Plts: 7.85/12.8/39.8/198 (08/17 2201) Labs-Chem 7([facility]) Bun/Creat/Cl/CO2/Glucose: 10/0.64/99/29/109 (08/17 2201) Na/K+/Phos/Mg/Ca: 135/3.6/--/--/-- (08/17 2201) Labs-Coags Ptt/Pt/Inr: 25.1/13.5/1.0 (08/17 2201) Additional Labs No results found for: CHOLESTEROL, TRIG, HDL, LDLCALC, LDLDIRECT Labs-Hemoglobin A1C No results found for: HGBA1C Imaging CT Stroke Head: L parietal lobar IPH with mild edema and local mass effect with no MLS, appears grossly stable from[facility] CTH earlier today CTA Brain/Neck: No obvious spot sign, aneurysm, or flow limiting stenosis Assessment/Impression Amanda Colt Axel present with R sided parethesias likely due to L parietal IPH. NIH 1, GCS 15, CTH with findings as above, CTA with no active contrast extravasation. Location of hemorrhage in postcentral gyrus correlates to her symptoms of R facial and RUE > RLE paresthesias. Reportedly not very hypertensive on initial eval with SBP 130s-140s, which is stable here with BP 140/66. H/o afib with recent ER visit for same, EKG NSR here. Unclear etiology for hemorrhage but differential would include ischemic stroke in the setting of afib not on AC with hemorrhagic conversion, as well as CAA, mass or other lesion. Neurosurgery consulted and no acute intervention at this time, so will admitto PCU. Plan -Please admit to neurovascular service PCU, attending Dr. Victor. A hemorrhagic stroke order set hasbeen signed and held. ICH score 0 -Neurosurgery consulted. Appreciate recommendations -Check PT/INR/PTT and reverse any coagulopathy -Blood pressure goals with SBP less than 140 -Repeat a head CT [address] -Vital signs and neuro assessments q 2 -No anticoagulation, antiplatelet therapy and pharmacological DVT prophylaxis until a follow up head CT/MRI has been completed to ensure stability of hemorrhage. Discuss initiating AC for afib at that time. -Obtain brain MRI with and without contrast unless contraindicated -Swallow evaluation prior to any oral intake -ECHO to evaluate cardiac function -Lipid panel, LFTs and HgbA1c to evaluate secondary risk factors -Baseline EKG, if not done in ED. Continuous telemetry -PT, OT, Speech and social media executive consults Other problems: Complexity. Wound Documentation Any conditions listed below are present on admission unless otherwise specified. . Other medical problems: HTN - hold hydrochlorothiazide 25 mg daily Afib - cont sotalol 80 mg BID, hold home ASA 81 mg Glaucoma - Cont latanoprost and timolol eye drops Mood disorder - Hold wellbutrin 150 mg XL for now to avoid lowering seizure threshold in acute phase, consider resuming in next couple days RLS - cont ropinirole 2.5 mg at bedtime GERD - cont pantoprazole Chronic LBP - cont gabapentin 400 mg TID, Percocet Q6H PRN, ET - cont primidone 50 mg 4x daily Crohn's disease - on Stelara Eczema, vaginal dryness, recurrent fungal infection 2/2 stellara - uses clotrimazole, clobetazole, and betamethasone creams as needed, defer ordering for now Code Status: Full Code DVT prophylaxis: SCDs Diet: DIET NPO WITHOUT meds Patient and plan discussed with neurovascular fellow Dr. Hanks. Plan is preliminary until cosigned byattending. Signed, Nichole Hurley DO PGY-2, Neurology Cosigned by Pratibha Victor MD at 08/18/2024 6:11 PM EDT Associated attestation - Pratibha Victor MD - 08/18/2024 6:11 PM EDT See my full attestation for this date on my separate note on 08/18/2024. [facility] Diagnostic study note [facility] Imaging Services [address] [place], [place] [address] STROKE Brain/Head without Cont MR#: [id number] Acct: [id number] Name: AMANDA REYNA Rep #: [id number] : 1955 F 69 From: Queenie Howe MD PCP: Dr. Ottoniel Page DO Status: REG ER Study:STROKE Brain/Head without Cont Date of Exam: 08/17/24 Exam# [id number] Ordering Dr: Jordon Edwards MD PROCEDURE: STROKE [...] intraparenchymal hemorrhage in the left parietal lobe measuring1.3 x 2.5 x 2.6 cm (AP x [...] by telephone to Young Edwards on 08/17/2024 at7:50 pm with readback verification. Reading Location: [id number] CC: Dr. Ottoniel Page DO; Dr. Young Edwards MD ~ Automatic Die Cutting Machine Operator: Signed [facility]06-08-2025 Discharge summary [facility] Medical Records Department [address] [place] [address] Emergency Department Summary 08/15/24 MR#: [id number] Acct: [id number] Name: AMANDA REYNA Rep #:[id number] : 1955 69 From: Hugh Gayle PCP: Dr. Ottoniel Page DO Status:REG ER Location: ED HPI History of Present Illness Chief Complaint: Palpitations Informant: patient Narrative Narrative: Palpitations recurrent A-fib waking her at 11:30 PM 2.5 hours ago. Went to bed feeling fine. History of paroxysmal A-fib followed by principal scientist Dr. Keane. She states she had a brain tumor craniotomy 2003 therefore she election was not to do anticoagulants. She has no recent illness no cough no recent vomiting or diarrhea. No coronary disease history. She is on sotalol she took extra half dose of sotalol at midnight as treatment plans with her principal scientist. She stillfeels symptoms. Prior similar symptoms: Yes [...] hours ago. 0200: I spoke with on-call principal scientist Dr. Manuel, with patient's known feeling symptomatic 2 and half hours ago, discussed no current anticoagulants. Reports since symptoms are known, cardioversion can be performed discussing riskand benefits with the patient. She agrees to pursue. Will set upfor cardioversion. Written consent. Risk and benefits discussed. [...] Patient continue home medications. Follow-up with her principal scientist. All questions were answered. Re-evaluation: stable Disposition discussed with patient/family/significant other: Case discussed with consulting clinician: Cardiology This note was generated with [employer] dictation software. It may contain incorrectwords, spelling, [...] % (Auto) 56.9 Lymph % (Auto) 29.9 [place] % (Auto) 8.6 Eos % (Auto) 3.3 [...] Triage Chief Complaint: Palpitations ED Provider: Hugh Hooker Dx/Rx/DC Orders Clinical Impression: Paroxysmal atrial fibrillation, [...] medications. Follow-up with Dr. Keane. Print Language: Turkmen Disposition Disposition: Home, Self Care What to do if you have Problems For any increased pain, shortness of breath, bleeding, nausea or vomiting, chestpain, or any unexpected problems, contact your Primary Care Provider. Call [facility] ([phone]) or report tothe closest Emergency Room. Call 911 if necessary. 08/15/24 0257 Cosigner Signature (if applicable): CC: Andrew Keane MD; Dr. Ottoniel Page DO ~ Signed [facility]06-03-2025 Evaluation note* Diagnosis Onset Date Resolution Status Admit Date Essential (primary) hypertension chr onic August 10, 2024 8:20am Paroxysmal atrial fibrillation chron ic August 10, 2024 8:20am [facility] Work Phone: 1(494) 882-792306-03-2025 Evaluation note* Diagnosis Onset Date Resolution Status Admit Date Essential (primary) hypertension chronic August 10, 2024 8 :20am Paroxysmal atrial fibrillation chron ic August 10, 2024 8:20am History of craniectomy acute [facility] 2024 12:48pm Hypokalemia acute August 29 12:48pm Loud snoring acute August 29, 025 12:48pm Nodule of ear canal acute August 29, 2024 12:48pm Physical debility acute August 292024 12:48pm Anxiety chronic August 29 12:48pm Anxiety and depression chronic [facility] 2024 12:48pm Essential (primary) hypertension chronic August 29, 2024 12:48pm Essential tremor chronic August 12:48pm Glaucoma chronic August 29 12:48pm History of Crohn's disease chronic August 29, 2024 12:48pm Hyperlipidemia chronic August 29, 2024 12:48pm Hypomagnesemia chronic August 29, 2024 12:48pm Hypoxemia associated with sleep manager category tae August 29, 2024 12:48pm IBS (irritable bowel syndrome) chron ic August 29, 2024 12:48pm Kyphosis chronic August 29 12:48pm Obesity (BMI 35.0-39.9 witho ut comorbidity) chronic August 29, 2024 12:48pm Paroxysmal atrial fibrillation chron ic August 29, 2024 12:48pm Restless legs chronic August 29, 2024 12:48pm JANNETH (obstructive sleep apnea) suspec sara August 29, 2024 12:48pm 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 Ottoniel Page, DO Status:REG SDC Y Race: C Location: [place] [address] Anesthesia Postop Eval I Sum Postop Eval Completion status Anesthesia document: Postop Eval 1 completed: Yes Anesthesia Postop Eval I Summary Anesthesia Postop Eval I Summary: Anesthesia Postop Eval I: Assessment Summary Airway patent Yes 05/27/24 13:47 [email or web address] Spontaneous unlabored Yes 05/27/24 13:47 [email or web address] respirations Mental status Awake,Calm 05/27/24 13:47 [email or web address] nausea No 05/27/24 13:47 [email or web address] Vomiting No 05/27/24 13:47 [email or web address] Anesthesia Postop Eval I: Fluid Summary Crystalloid volume administer 800 05/27/24 13:47 [email or web address] (ml) Colloids volume administered ( ml) Blood Product volume administered (ml) Total IV fluid infused 800 05/27/24 13:47 [email or web address] Anesthesia Postop Eval I: Summary Notes Anesthesia Complication No 05/27/24 13:47 [email or web address] Anesthesia Complication Comment: Post-operative progress note Anesthesia: Postop Eval II Evaluation Mental status: Awake Pain Level: 1 nausea: No Vomiting: No 05/27/24 1441 a> Date _ Zuri Madrid Signature: Date CC: ~ Signed [facility]03-20-2025 Procedure note [facility] Medical Records Department [address] [place] [address] Operative Report 05/27/24 1341 MR#: [id number] Acct: [id number] Name: AMANDA REYNA Rep #:[id number] : 1955 68 From: Bruno gold DO PCP: Dr. Ottoniel Page, DO Status:REG SDC Location: [facility] [place] [address]-1 Operative Report (Standard) Operative Information Date of Procedure: 05/27/24 Pre-Operative Diagnosis: Right first carpal metacarpal joint osteoarthritis Post-Operative Diagnosis: Right first carpal metacarpal joint osteoarthritis Surgery/Procedure Performed: Right first carpometacarpal joint arthroplasty withtrapezium excision,ligament reconstruction tendon interposition change number operator: Yes Salesperson Floor Coverings: Makeda Hermosillo Tasks completed by miller first: Opening & closing and Implanting device Type [...] table attached to the right side of [facility]. We spun the bed 90 degrees. The [...] PACU in stable condition. Need for skilled assistant to the dean: Makeda Hermosillo PA-C was critical to the outcome of thecase. During the course of the procedure the physician assistant to the dean played a vitalrole. Her intimate knowledge of [...] SCD's VTE Pharm Prophylaxis ordered?: Yes 05/27/24 2451 Cosigner Signature (if applicable): CC: Dr. Ottoniel Page, DO; Dr. Bruno Avila, DO; KIMBERLY Resendez~ Signed [facility]03-20-2025 Consult note [facility] Medical Records Department [address] [place] [address] Anesthesia Postop Eval I 05/27/24 1346 MR#: [id number] Acct: [id number] Name: AMANDA REYNA Rep #:[id number] : 1955 68 From: Gatito mata MIXOLOGIST PCP: Dr. Ottoniel Page, DO Status:REG SDC Y Race: C Location: [place] [address] Anesthesia: Postop Eval I Current Vital Signs [...] Eval 1 completed: Yes 05/27/24 1347 tler MIXOLOGIST> Date _ Gatito Jiménez MIXOLOGIST Cosigner Signature: Date CC: ~ Signed [facility]03-20-2025 Radiology Diagnostic study note [facility] Imaging Services [address] [place] [address] Hand 2 Views MR#: [id number] Acct: [id number] Name: AMANDA REYNA Rep #: [id number] : 1955 F 68 From: Mckenzie Hooker MD PCP: Dr. Ottoniel Page, DO Status: REG SDC Study:Hand 2 Views Date of Exam: 5 Exam# [id number] Ordering Dr: Bruno Avila DO EXAM: XR [...] the operative notefor further details. Reading [facility] CC: Dr. Ottoniel Page DO; Dr. Bruno Avila DO ~ Automatic Die Cutting Machine Operator: Signed [facility]03-20-2025 Consult note Author Tom Roger [facility] Note Date/Time May 27, 2024 11: 17am [facility] Medical Records Department [address] [place] [address] Pre-Anesthesia Evaluation 05/27/24 1105 MR#: [id number] Acct: [id number] Name: AMANDA REYNA Rep #:[id number] : 1955 68 From: Tom Roger MD PCP: Dr. Ottoniel Page DO Status:REG SDC Y Race: C Location: [place] [address] ASA Classification* ASA Classification ASA Classification: 3 [...] TENDON INTERPOSITION Anesthesia History Anesthesia History - mexican food machine tender: Anesthesia History - mexican food machine tender Hx Hospitalization No 05/12/24 11:05 Any Problems [...] take am of surgery PONV PONV - mexican food machine tender: PONV - mexican food machine tender Female Yes 05/12/24 11:05 HX of Motion [...] 05/27/24 10:40 Respiratory Assessment Respiratory Assessment - mexican food machine tender: Respiratory Tract Infection Hx - mexican food machine tender Hx Respiratory Tract Infection No 05/12/24 11:05 STOP Sleep Apnea STOP Sleep Apnea - mexican food machine tender: STOP Sleep Apnea - mexican food machine tender Hx Hypertension Yes: CONTROLLED WITH MEDS 05/12/24 [...] Tobacco Use History Tobacco Use History - mexican food machine tender: Tobacco Use History - mexican food machine tender Tobacco Use Smoking Status Former smoker 05/12/24 11:05 Hx Tobacco Use No 05/12/24 11:05 Years Smoking Packs Smoked per Day Smoking Cessation Date was No - quit smoking greater 05/12/24 11:05 within the last 15 years than 15 years ago Hx Smoking Cessation Date 03/10/99 05/12/24 11:05 Hx Smoking Cessation Counseling Hematologic Medial History Hematologic Hx - mexican food machine tender: Hematologic Medical Hx - certified drug counselor Hx of Blood Transfusion No 05/12/24 11:05 [...] confused, unrespo /Reproduction History /Reproductive History - mexican food machine tender: /Reproductive Hx- mexican food machine tender Hx Now Gestational Age (in weeks): EDC: [...] Signature: Date CC: ~ Signed [facility] Work Phone: 1(136) 310-588103-20-2025 Consult note [facility] Medical Records Department [address] [place] [address] Pre-Anesthesia Evaluation 05/27/24 1105 MR#: [id number] Acct: [id number] Name: AMANDA REYNA Rep #:[id number] : 1955 68 From: Tom Roger MD PCP: Dr. 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 tender: Anesthesia History - mexican food machine tender Hx Hospitalization No 05/12/24 11:05 Any Problems [...] take am of surgery PONV PONV - mexican food machine tender: PONV - mexican food machine tender Female Yes 05/12/24 11:05 HX of Motion [...] 05/27/24 10:40 Respiratory Assessment Respiratory Assessment - mexican food machine tender: Respiratory Tract Infection Hx - mexican food machine tender Hx Respiratory Tract Infection No 05/12/24 11:05 STOP Sleep Apnea STOP Sleep Apnea - mexican food machine tender: STOP Sleep Apnea - mexican food machine tender Hx Hypertension Yes: CONTROLLED WITH MEDS 05/12/24 [...] Tobacco Use History Tobacco Use History - mexican food machine tender: Tobacco Use History - mexican food machine tender Tobacco Use Smoking Status Former smoker 05/12/24 11:05 Hx Tobacco Use No 05/12/24 11:05 Years Smoking Packs Smoked per Day Smoking Cessation Date was No - quit smoking greater 05/12/24 11:05 within the last 15 years than 15 years ago Hx Smoking Cessation Date 03/10/99 05/12/24 11:05 Hx Smoking Cessation Counseling Hematologic Medial History Hematologic Hx - mexican food machine tender: Hematologic Medical Hx - certified drug counselor Hx of Blood Transfusion No 05/12/24 11:05 [...] confused, unrespo /Reproduction History /Reproductive History - mexican food machine tender: /Reproductive Hx- mexican food machine tender Hx Now Gestational Age (in weeks): EDC: [...] 05/27/24 1117 hayley RICK> Date _ Tom Hoskinsignadolfo Signature: Date CC: ~ Signed [facility]03-14-2025 Hospital Discharge instructionsAmbulatory Orders* 12 Lead EKG [[facility]] Time Frame: 05/21/24, Location: None Selected [facility] Work Phone: 1(872) 948-849404-04-2022 Hospital Discharge instructions Patient Education 06/11/2021 15:45:44 [...] us better serve our patients. Form: [id number]) R: 06/1606/11/2021 15:44:54 Total Laparoscopic Hysterectomy, Care [...] and water are not available, use hand director of manufacturing operations. ?Change your dressing as told by your [...] told by your health care provider. Take bmnr-wkf-hjflapf and prescription medicines only as told by [...] your urine clear or pale yellow. ?Take tpof-faq-hchvbab or prescription medicines. ?Eat foods that are [...] 12/15/2013 Document Revised: 02/06/2018 Document Reviewed: 05/07/2017 [employer] Patient Education 2020 [employer]. Follow Up Care 04/25/2021 12:00:50 With:GERARDO HOOKS MD, ADVERTISING COLUMNIST-ONC Address: When: Unknown Comments:Follow-up as scheduled [facility] Consult note Author Gatito Jiménez [facility] Note Date/Time May 27, 2024 1:4 7pm [facility] Medical Records Department [address] [place] [address] Anesthesia Postop Eval I 05/27/24 1346 MR#: [id number] Acct: [id number] Name: AXELAMANDA HOUGHETTE Rep #:[id number] : 1955 68 From: Gatito mata CRNA PCP: Dr. Ottoniel Page, DO Status:REG SDC Y Race: C Location: [address] Anesthesia: Postop Eval I Current Vital Signs [...] 05/27/24 1347 <Electronically signed by Gatito mortensen MIXOLOGIST> Date _ Gatito Jiménez MIXOLOGIST Cosigner Signature: Date CC: ~ Signed [facility] Work Phone: Consult note Author Zuri [facility] Note Date/Time May 27, 2024 3:0 5pm [facility] Medical Records Department [address] [place] [address] Anesthesia Postop Eval II 05/27/24 1441 MR#: [id number] Acct: [id number] Name: AMANDA REYNA Rep #:[id number] : 1955 68 From: Zuri Copeland PCP: Dr. Ottoniel Page, DO Status:REG SDC Y Race: C Location: [place] [address] Anesthesia Postop Eval I Sum Postop Eval Completion status Anesthesia document: Postop Eval 1 completed: Yes Anesthesia Postop Eval I Summary Anesthesia Postop Eval I Summary: Anesthesia Postop Eval I: Assessment Summary Airway patent Yes 05/27/24 13:47 [email or web address] Spontaneous unlabored Yes 05/27/24 13:47 [email or web address] respirations Mental status Awake,Calm 05/27/24 13:47 [email or web address] nausea No 05/27/24 13:47 [email or web address] Vomiting No 05/27/24 13:47 [email or web address] Anesthesia Postop Eval I: Fluid Summary Crystalloid volume administer 800 05/27/24 13:47 [email or web address] (ml) Colloids volume administered ( ml) Blood Product volume administered (ml) Total IV fluid infused 800 05/27/24 13:47 [email or web address] Anesthesia Postop Eval I: Summary Notes Anesthesia Complication No 05/27/24 13:47 [email or web address] Anesthesia Complication Comment: Post-operative progress note Anesthesia: Postop Eval II Evaluation Mental status: Awake Pain Level: 1 nausea: No Vomiting: No 05/27/24 1441 <Electronically signed by Zuri salinas> Date _ Zuri Madrid Signature: Date CC: ~ Signed [facility] Work Phone: Discharge summary Author Hugh Hooker [facility] Note Date/Time August 15, 2024 2:57a m [facility] Medical Records Department [address] [place] [address] Emergency Department Summary 08/15/24 MR#: [id number] Acct: [id number] Name: AMANDA REYNA Rep #:[id number] : 1955 69 From: Hugh Gayle PCP: Dr. Ottoniel Page, DO Status:REG ER Location: ED HPI History of Present Illness Chief Complaint: Palpitations Informant: patient Narrative Narrative: Palpitations recurrent A-fib waking her at 11:30 PM 2.5 hours ago. Went to bed feeling fine. History of paroxysmal A-fib followed by principal scientist Dr. Keane. She states she had a brain tumor craniotomy 2003 therefore she election was not to do anticoagulants. She has no recent illness no cough no recent vomiting or diarrhea. No coronary disease history. She is on sotalol she took extra half dose of sotalol at midnight as treatment plans with her principal scientist. She stillfeels symptoms. Prior similar symptoms: Yes [...] hours ago. 0200: I spoke with on-call principal scientist Dr. Manuel, with patient's known feeling symptomatic [...] Patient continue home medications. Follow-up with her principal scientist. All questions were answered. Re-evaluation: stable Disposition discussed with patient/family/significant other: Case discussed with consulting clinician: Cardiology This note was generated with [employer] dictation software. It may contain incorrectwords, spelling, [...] % (Auto) 56.9 Lymph % (Auto) 29.9 [place] % (Auto) 8.6 Eos % (Auto) 3.3 [...] Triage Chief Complaint: Palpitations ED Provider: Hugh Hooker Dx/Rx/DC Orders Clinical Impression: Paroxysmal atrial fibrillation, [...] medications. Follow-up with Dr. Keane. Print Language: Turkmen Disposition Disposition: Home, Self Care What to do if you have Problems For any increased pain, shortness of breath, bleeding, nausea or vomiting, chestpain, or any unexpected problems, contact your Primary Care Provider. Call [facility] ([phone]) or report to the closest Emergency Room. Call 911 if necessary. 08/15/24 0257 <Electronically signed by Hugh Gayle> Cosigner Signature (if applicable): CC: Andrew Keane MD; Dr. Ottoniel Page DO ~ Signed [facility] Work Phone: Evaluation + Plan note Future Appointments [facility] Evaluation + Plan note Future Appointments Appointment Date:06/27/2021 11:00:00 AM Scheduled Provider:GERARDO HOOKS MD Location:[facility]VERT[facility] Appointment Type:SO OV Post Op [facility] Evaluation + Plan note Future Appointments Appointment Date:07/25/2021 11:30:00 AM Scheduled Provider:GERARDO HOOKS MD Location:[facility] Appointment Type:SO OV Post Op [facility] evaluation note* Diagnosis Onset Date Resolution Status Essential (primary) hypertension chronic Paroxysmal atrial fibrillation chronic [facility] Work Phone: Evaluation noteNo assessment information available [facility] Work Phone: Evaluiqles note* Diagnosis Onset Date Resolution Status Admit Date Essential (primary) hypertension chr onic August 10, 2024 8:20am Paroxysmal atrial fibrillation chron ic August 10, 2024 8:20am [facility] Work Phone: Evaluation note* Diagnosis Hemorrhagic stroke- Primary Intracerebral hemorrhage Hemorrhagic stroke Intracerebral hemorrhage Fistula Unspecified local infection of skin and subcutaneous tissue [facility] Diagnosis 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 Continue your home medications. Follow-up with Dr. Keane.[facility] Work Phone: Hospital Discharge instructionsAdditional Instructions 1. I believe the restless leg was due to untreated sleep apnea and iron deficiency. I also believe the Ropinirole was causing augmentation and making things worse. I believe the Ropinirole was contributing to chronic nausea, lightheadedness, fatigue and headache. Since the ropinirole has been decreased and we have been applying oxygen anytime you are sleeping and we have given you IV iron the restless less is much better. Actually I think the soreness/stiffness and pain in the legs you are having at the end of the day are due to your chronic back problems and the increased amount of exercise you have been doing. I think it would be a good idea to continue to use Oxycodone in the evening to treat this. since the oxygen you are sleeping good at night and you are very alert during the day and taking less naps. The sleep lab will call you to schedule a sleep study and we have ordered oxygen for you to have at home anytime you are sleeping. 2. Outwardly you do not appear very anxious but, you have a lot of anxiety and you have even been treated for panic attacks in the past. Wellbutrin is a good antidepressant but, it does not treat anxiety and in fact it can cause increased anxiety, insomnia and headaches. WE have discontinued Wellbutrin and started you a medication called Sertraline that treats both anxiety and depression. It takes this medication 3-4 weeks to get the full effect. In the meantime I am giving you a prescription for Xanax (also called alprazolam) to take every 4-6 hours as needed for anxiety/panic attacks. You have not had to take much of this while on rehab. I think the diarrhea has more to do with irritable bowel syndrome (IBS) rather than Crohn's. Anxiety increase IBS sx. With IBS the diarrhea happens usually only during the day and does not wake you up at night. With IBS you will not have mucous or blood in the stool. I always think medication and counselling work much better together than either alone. I think you may benefit from follow up with behavioral health at Discharge. 3. I discontinued the hydrochlorothiazide (HCTZ) that you were taking. Your potassium and magnesium have both been low despite discontinuing hydrochlorothiazide. You will now take a potassium supplement and a magnesium supplement. We should recheck your lab in approximately 1 week to make sure that potassium/magnesium are now within normal limits. The swelling in your legs is very well-controlled with compression stockings. Swelling is always worse in the summer because it is hot and this leads to dilation of the veins and increased swelling in the legs, especially if you are not elevating them. Watch your salt intake because a high salt diet will increase peripheral edema. Diuretics generally only help once you are dehydrated and diuretics also decrease potassium and magnesium and low potassium and magnesium can lead to a problem with the rhythm of your heart called atrial fibrillation. Losing weight will help a lot with swollen ankles and it will also help with the chronic back pain. 4. You have done very well in therapy and we have all appreciated your hard work and your willingness to do whatever we have asked of you.....with a smile on your face. If you or any of your family have questions after you leave rehab please do not hesitate to call me. OFFICE: [phone] CELL: [phone] NURSES STATION ON REHAB: [phone] [facility]: [facility] Phone: Progress note No data available for this section [facility] Reason for referral (narrative)No reason for referral [facility] Work Phone: Remltd for visit Narrative* Auth/Cert Specialty Diagnoses / Procedures Referred By Gilberto t Referred To Contact Diagnoses Hemorrhagic stroke Stroke (LEVEL A HEMORRHAGIC) Pratibha Victor MD [address] [place] [address] Phone: tel: fax: [facility] [address] [place] [address] Referral ID Status Reason Start Date Expiration Date Visits Re quested Visits Authorized [id number] 1 1 [facility] Summary Purpose Family History No Family History Records Found Relationship Condition Age at Onset Recorded Date/T blanca mother Coronary artery disease Unknown Myocardial infarction Unknown father Hypertension Unknown brother Coronary artery disease Unknown Relationship Condition Age at Onset Recorded Date/T blanca mother Coronary artery disease Unknown Myocardial infarction Unknown Venous thromboembolism (VTE) Unknown father Hypertension Unknown brother Coronary artery disease Unknown Advance Directives No Advanced Directives Records Found Advance Directive Response Recorded Date/ Time Living Will Yes February 20 9:22am Power of Pantograph Engraver Yes February 20, 2021 9:22am Advance Directive Response Recorded Date/ Time Living Will Yes February 20 8:22am Power of Pantograph Engraver Yes February 20, 2021 8:22am Advance Directive Response Recorded Date/ Time Living Will Yes February 20 9:22am Do you have a Healthcare Pow er of Pantograph Engraver? Yes February 20, 2021 9:22am Living Will Yes May 12, 2024 12:05pm Do you have a Healthcare Pow er of Pantograph Engraver? Yes May 12, 2024 12:05pm Name of Medical Power of Pantograph Engraver - ELLA REYNA May 12, 2024 12:05pm Advance Directive Response Recorded Date/ Time Living Will Yes February 20 9:22am Do you have a Healthcare Pow er of Pantograph Engraver? Yes February 20, 2021 9:22am Living Will Yes May 12, 2024 12:05pm Do you have a Healthcare Pow er of Pantograph Engraver? Yes May 12, 2024 12:05pm Name of Medical Power of Pantograph Engraver - ELLA REYNA May 12, 2024 12:05pm Do you have a Healthcare Pow er of Pantograph Engraver? Yes August 15, 2024 1:49am Advance Directive Response Recorded Date/ Time Living Will Yes February 20 9:22am Do you have a Healthcare Pow er of Pantograph Engraver? Yes February 20, 2021 9:22am Living Will Yes May 12, 2024 12:05pm Do you have a Healthcare Pow er of Pantograph Engraver? Yes May 12, 2024 12:05pm Name of Medical Power of Pantograph Engraver - ELLA L JUSTICE May 12, 2024 12:05pm Do you have a Healthcare Pow er of Pantograph Engraver? Yes August 17, 2024 8:09pm Do you have a Healthcare Pow er of Pantograph Engraver? Yes August 15, 2024 1:49am Date Activated Date Inactivated Comments 08/20/2024 2:10 PM Date Activated Date Inactivated Comments 08/17/2024 11:56 PM 08/20/2024 2:10 PM Advance Directive Response Recorded Date/ Time Living Will Yes February 20 9:22am Do you have a Healthcare Pow er of Pantograph Engraver? Yes February 20, 2021 9:22am Living Will Yes May 12, 2024 12:05pm Do you have a Healthcare Pow er of Pantograph Engraver? Yes May 12, 2024 12:05pm Name of Medical Power of Pantograph Engraver Indu REYNA May 12, 2024 12:05pm Do you have a Healthcare Pow er of Pantograph Engraver? Yes August 17, 2024 8:09pm Do you have a Healthcare Pow er of Pantograph Engraver? Yes August 30, 2024 3:10pm Name of Medical Power of Pantograph Engraver emily Roca August 30, 2024 3:10pm Do you have a Healthcare Pow er of Pantograph Engraver? Yes August 15, 2024 1:49am Date Activated Date Inactivated Comments 08/20/2024 2:10 PM Date Activated Date Inactivated Comments 08/17/2024 11:56 PM 08/20/2024 2:10 PM Chief Complaint and Reason for Visit Chief [...] AND TINGLING August 17, 2024 7: 05pm Chief Complaint Admit Date PREOP May 21, 2024 7:5 3am Carpal Metacarpal Arthroplasty, Trapezie ctomy, Li May 27, 2024 10:05am S/P WRIST SURGERY,[facility] JT RT FLORES Parker FAX July 20, 2024 11:30am SCREENING August 04, 2024 8:11a m 1 Y FU August 10, 2024 8:20a m palpitations August 15, 2024 1:45a m NUMBNESS AND TINGLING August 17, 2024 7: 05pm HEMORRHAGIC STROKE August 29, 2024 12:4 8pm HEMORRHAGIC STROKE August 30, 2024 5:02 pm HEMORRHAGIC STROKE August 31, 2024 8:47 am HEMORRHAGIC STROKE September 02, 2024 12:0 4pm HEMORRHAGIC STROKE September 03, 2024 10:3 0am HEMORRHAGIC STROKE September 06, 2024 9:49 am HEMORRHAGIC STROKE September 07, 2024 10:15 am HEMORRHAGIC STROKE September 09, 2024 10:18 am Reason for Visit Admit Date Essential (primary) hypertension August 8:20am Paroxysmal atrial fibrillation August 10, 2024 8:20am History of craniectomy August 29, 2024 1 2:48pm Hypokalemia August 29, 2024 12:4 8pm Loud snoring August 29, 2024 12:4 8pm Nodule of ear canal August 29, 2024 12:4 8pm Physical debility August 29, 2024 12:4 8pm Anxiety August 29, 2024 12:4 8pm Anxiety and depression August 29, 2024 1 2:48pm Essential (primary) hypertension August 292024 12:48pm Essential tremor August 29, 2024 12:4 8pm Glaucoma August 29, 2024 12:4 8pm History of Crohn's disease August 29 12:48pm Hyperlipidemia August 29, 2024 12:4 8pm Hypomagnesemia August 29, 2024 12:4 8pm Hypoxemia associated with sleep August 12:48pm IBS (irritable bowel syndrome) August 12:48pm Kyphosis August 29, 2024 12:4 8pm Obesity (BMI 35.0-39.9 without comorbidi ty) August 29, 2024 12:48pm Paroxysmal atrial fibrillation August 12:48pm Restless legs August 29, 2024 12:4 8pm JANNETH (obstructive sleep apnea) August 29, 2024 12:48pm 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 [facility] DATE CREATED AUTHOR AUTHOR'S ORGANIZ ATION 09/24/2024 [facility] DATE CREATED AUTHOR AUTHOR'S ORGANIZ ATION 11/13/2024 [facility] Care Team (unrecognized sect ion and content) Team Status: Active Member Role Status Dates Dr. Ottoniel Page DO Family Provider Active Dr. Ottoniel Page DO Primary Care Provider Active Team Status: Active Member Role Status Dates Dr. Ottoniel Page DO Primary Care Provider Active Dr. Andrew Keane MD Attending Provider Active KIMBERLY Resendez Referring Provider Active Team Status: Inactive Member Role Status Dates Dr. Ottoniel Page DO Primary Care Provider Active KIMBERLY Resendez Attending Provider, Referring Provide r Active Team Status: Inactive Member Role Status Dates Dr. Ottoniel Page DO Primary Care Provider Active Dr. Facundo Kat MD Attending Provider, Referring Provider Active Team Status: Inactive Member Role Status Dates Dr. Ottoniel Page DO Primary Care Provider Active Dr. Mayra Vinson , DO Attending Provider Active Team Status: Inactive Member Role Status Dates Dr. Ottoniel Page DO Primary Care Provider, Referrin g Provider Active Janeth Wilcox PA, PA Attending Provider Active Team Status: Inactive Member Role Status Dates Dr. Ottoniel Page DO Primary Care Provider Active Dr. Facundo Kat MD Attending Provider, Referring Provider Active Fiorella Vidal [employer] Other Provider Active Team Status: Inactive Member [...] Active Start: May 10, 2024 Dr. Facundo Kta MD Attending Provider Active Start: May 10, [...] 2024 KIMBERLY Resendez Other Provider Active Start: [facility] 2024 End: May 27, 2024 Team [...] 10, 2024 End: August 10, 2024 Janeth HARRIS, PA Attending Provider Active Start: August 10, 2024 End: August 10, 2024 Team Status: Inactive Member Role Status Dates Dr. Ottoniel Page DO Primary Care Provider Active Start: August 15, 2024 End: August 15, 2024 Dr. Hugh Hooker DO Emergency Provider Active Start : August 15, 2024 End: August 15, 2024 Team Status: Inactive Member Role Status Dates Dr. Ottoniel Page DO Primary Care Provider Active Start: August 17, 2024 End: August 17, 2024 Dr. Young Edwards MD Emergency Provider Active Sta rt: August 17, 2024 End: August 17, 2024 [employer] Relationship [employer]ty Start Date End Date Ottoniel Page DO [address] [place] [id number] PCP - General Family Medicine 08/17/24 Team Status: Active Member Role/Relationship Status Dates Dr. Ottoniel Page DO Primary Care Provider Active Team Status: Active Member Role/Relationship Status Dates Dr. Ottoniel Page DO Primary Care Provider Active Start: May 21, 2024 End: May 21, 2024 Dr. Daphne Manuel MD Attending Provider Activ e Start: May 21, 2024 End: May 21, 2024 Dr. Bruno Avila DO Referring Provider Active Start: May 21, 2024 End: May 21, 2024 Team Status: Inactive Member Role/Relationship Status Dates Dr. Ottoniel Page DO Primary Care Provider Active Start: May 27, 2024 End: May 27, 2024 Dr. Bruno Avila DO Attending Provider Active Start: May 27, 2024 End: May 27, 2024 Dr. Bruno Avila DO Referring Provider Active Start: May 27, 2024 End: May 27, 2024 KIMBERLY Resendez Other Provider Active Start: [facility] 2024 End: May 27, 2024 Team Status: Active Member Role/Relationship Status Dates Dr. Ottoniel Page DO Primary Care Provider Active Start: July 20, 2024 Dr. Bruno Avila DO Attending Provider Active Start: July 20, 2024 Dr. Bruno Avila DO Referring Provider Active Start: July 20, 2024 Team Status: Inactive Member Role/Relationship Status Dates Dr. Ottoniel Page DO Primary Care Provider Active Start: August 04, 2024 End: August 04, 2024 Dr. Ottoniel Page DO Attending Provider Active Start: August 04, 2024 End: August 04, 2024 Dr. Ottoniel Page DO Referring Provider Active Start: August 04, 2024 End: August 04, 2024 Team Status: Inactive Member Role/Relationship Status Dates Dr. Ottoniel Page DO Primary Care Provider Active Start: August 10, 2024 End: August 10, 2024 Dr. Ottoniel Page DO Referring Provider Active Start: August 10, 2024 End: August 10, 2024 Janeth Wilcox PA, PA Attending Provider Active Start: August 10, 2024 End: August 10, 2024 Team Status: Inactive Member Role/Relationship Status Dates Dr. Ottoniel Page DO Primary Care Provider Active Start: August 15, 2024 End: August 15, 2024 Dr. Hugh Hooker DO Attending Provider Active Start : August 15, 2024 End: August 15, 2024 Dr. Hugh Hooker DO Emergency Provider Active Start : August 15, 2024 End: August 15, 2024 Team Status: Inactive Member Role/Relationship Status Dates Dr. Ottoniel Pgae DO Primary Care Provider Active Start: August 17, 2024 End: August 17, 2024 Dr. Young Edwards MD Attending Provider Active Sta rt: August 17, 2024 End: August 17, 2024 Dr. Young Edwards MD Emergency Provider Active Sta rt: August 17, 2024 End: August 17, 2024 Team Status: Inactive Member Role/Relationship Status Dates Dr. Ottoniel Page DO Primary Care Provider Active Start: August 29, 2024 End: September 10, 2024 Dr. Debi Deleon DO Admit Provider Active Start: August 29, 2024 End: September 10, 2024 Dr. Debi Deleon DO Attending Provider Act francis Start: August 29, 2024 End: September 10, 2024 Team Status: Active Member Role/Relationship Status Dates Dr. Ottoniel Page DO Primary Care Provider Active Start: August 30, 2024 Dr. Debi Deleon DO Admit Provider Active Start: August 30, 2024 Dr. Debi Deleon DO Attending Provider Act francis Start: August 30, 2024 Dr. Debi Deleon DO Other Provider Active Start: August 30, 2024 Team Status: Active Member Role/Relationship Status Dates Dr. Ottoniel Page DO Primary Care Provider Active Start: August 31, 2024 Dr. Vicenta Sementi , DO Admit Provider Active Start: August 31, 2024 Dr. Debi Deleon , DO Attending Provider Act francis Start: August 31, 2024 Dr. Debi Deleon , DO Other Provider Active Start: August 31, 2024 Team Status: Active Member Role/Relationship Status Dates Dr. Ottoniel Page , DO Primary Care Provider Active Start: September 02, 2024 Dr. Debi Deleon , DO Admit Provider Active Start: September 02, 2024 Dr. Debi Deleon , DO Attending Provider Act francis Start: September 02, 2024 Dr. Debi Deleon , DO Other Provider Active Start: September 02, 2024 Team Status: Active Member Role/Relationship Status Dates Dr. Ottoniel Page , DO Primary Care Provider Active Start: September 03, 2024 Dr. Debi Deleon , DO Admit Provider Active Start: September 03, 2024 Dr. Debi Deleon , DO Attending Provider Act francis Start: September 03, 2024 Dr. Debi Deleon , DO Other Provider Active Start: September 03, 2024 Team Status: Active Member Role/Relationship Status Dates Dr. Ottoniel Page , DO Primary Care Provider Active Start: September 06, 2024 Dr. Debi Deleon , DO Admit Provider Active Start: September 06, 2024 Dr. Debi Deleon , DO Attending Provider Act francis Start: September 06, 2024 Dr. Debi Deleon , DO Other Provider Active Start: September 06, 2024 Team Status: Active Member Role/Relationship Status Dates Dr. Ottoniel Page , DO Primary Care Provider Active Start: September 07, 2024 Dr. Debi Deleon , DO Admit Provider Active Start: September 07, 2024 Dr. Debi Deleon , DO Attending Provider Act francis Start: September 07, 2024 Dr. Debi Deleon , DO Other Provider Active Start: September 07, 2024 Team Status: Active Member Role/Relationship Status Dates Dr. Ottoniel Page , DO Primary Care Provider Active Start: September 09, 2024 Dr. Debi Deleon DO Admit Provider Active Start: September 09, 2024 Dr. Debi Deleon , DO Attending Provider Act francis Start: September 09, 2024 Dr. Debi Deleon DO Other Provider Active Start: September 09, 2024 Tube P[employer]her Relationship Specialty Start Date End Date Ottoniel Page [address] [address] PCP - General Family Medicine 08/17/24 Goals (unrecognized section and content) Goals may be documented in a n alternate section Scheduled Active and Recently Administ ered Medications (unrecognized section and content) Medication Order 08/27/2024 08/28/2024 08/29/2024 augmented betamethasone dipropionate (DIPROLENE-AF) 0.05 % cream 1 Application 1 Application, Topical, 2 TIMES DAILY, First dose on Fri08/20/24 at 1700, Until Discontinued, Apply to inguinal creases, Post-op/Post-Proc 0838 (Not Given - Provider: Micaela Tejada RN - Reason: Patient/family refused)1752 (Not Given - Provider: Mciaela Tejada RN - Reason: Patient/family refused) 0831 (Not Given - Provider: Micaela Tejada RN - Reason: Patient/family refused)1728 (Not Given - Provider: Micaela Tejada RN - Reason: Patient/family refused) 0822 (Not Given - Provider: Micaela Tejada RN - Reason: Patient/family refused) buPROPion (WELLBUTRIN) tablet XL 150 mg 150 mg, Oral, DAILY EVERY MORNING, First dose on Fri08/20/24 at 1500, Until Discontinued, Do not crush, chew, or divide., Post-op/Post-Proc 0836 (Given - Provider: Micaela Tejada RN) 0830 (Given - Provider: Micaela Tejada RN) 0819 (Given - Provider: Micaela Tejada RN) cephALEXin (KEFLEX) capsule 250 mg (COMPLETED) 250 mg, Oral, Nightly, 7 doses, First dose on Fri08/21/24 at 2100, Last dose on Fri08/27/24 at 2100, Post-op/Post-Proc 2136 (Given - Provider: Ann Marie Johns RN) clobetasol (TEMOVATE) 0.05 % cream 1 Application 1 Application, Topical, 2 TIMES DAILY, First dose on Fri08/20/24 at 1700, Until Discontinued, Apply to inguinal creases, Post-op/Post-Proc 0838 (Not Given - Provider: Micaela Tejada RN - Reason: Patient/family refused)1752 (Not Given - Provider: Micaela Tejada RN - Reason: Patient/family refused) 0831 (Not Given - Provider: Micaela Tejada RN - Reason: Patient/family refused)1728 (Not Given - Provider: Micaela Tejada RN - Reason: Patient/family refused) 0822 (Not Given - Provider: Micaela Tejada RN - Reason: Patient/family refused) Clotrimazole (LOTRIMIN) 1 % cream 1 Application 1 Application, Topical, 2 TIMES DAILY, First dose on Fri08/20/24 at 1700, Until Discontinued, Apply to inguinal creases, Post-op/Post-Proc 0838 (Not Given - Provider: Micaela Tejada RN - Reason: Patient/family refused)1752 (Not Given - Provider: Micaela Tejada RN - Reason: Patient/family refused) 0832 (Not Given - Provider: Micaela Tejada RN - Reason: Patient/family refused)1728 (Not Given - Provider: Micaela Tejada RN - Reason: Patient/family refused) 0822 (Not Given - Provider: Micaela Tejada RN - Reason: Patient/family refused) Enoxaparin Sodium (LOVENOX) injection 40 mg(Linked Group 1) 40 mg, Subcutaneous, DAILY, First dose on Fri08/22/24 at 0900, Until Discontinued, For SUBCUTANEOUS route ONLY: alternate injection sites between left and right abdominal wall, pinching location and avoiding area around navel. If unable to use abdominal sites, may use the front or side of thighs., Indications: DVT/PE prophylaxis 0836 (Given - Provider: Micaela Tejada RN) 0829 (Given - Provider: Micaela Tejada RN) 0819 (Given - Provider: Micaela Tejada RN) Gabapentin (NEURONTIN) capsule 400 mg 400 mg, Oral, 3 TIMES DAILY, First dose on Fri08/18/24 at 0000, Until Discontinued 0837 (Given - Provider: Micaela Tejada RN)1330 (Given - Provider: Micaela Tejada RN)2136 (Given - Provider: Ann Marie Johns RN) 829 (Given - Provider: Micaela Tejada RN)1325 (Given - Provider: Micaela Tejada RN)2016 (Given - Provider: Quentin Glasgow RN) 08 (Given - Provider: Micaela Tejada RN) hydroCHLOROthiazide (HYDRODIURIL) tablet 25 mg 25 mg, Oral, DAILY, First dose on Fri08/21/24 at 0900, Until Discontinued, Post-op/Post-Proc, On hold since 08/21/2024 at 1026 until manually unheld 0900 (Automatically Held) 0900 (Automatically Held) 0900 (Automatically Held)1330 (Unheld by provider - Provider: System Discharge) Latanoprost (XALATAN) 0.005 % ophthalmic solution 1 drop 1 drop, Both Eyes, DAILY AT BEDTIME, First dose on Fri08/18/24 at 0000, Until Discontinued, Remove contact lenses 2136 (Given - Provider: Ann Marie Johns RN) 2016 (Given - Provider: Quentin Glasgow RN) levETIRAcetam (KEPPRA) tablet 1,000 mg 1,000 mg, Oral, EVERY 12 HOURS, First dose on Fri08/18/24 at 2100, Until Discontinued 0837 (Given - Provider: Micaela Tejada RN)2136 (Given - Provider: Ann Marie Johns RN) 829 (Given - Provider: Micaela Tejada RN)2016 (Given - Provider: Quentin Glasgow RN) 08 (Given - Provider: Micaela Tejada RN) Pantoprazole (PROTONIX) tablet DR 40 mg 40 mg, Oral, DAILY, First dose on Fri08/18/24 at 0900, Until Discontinued, Swallow whole; do not crush or chew., Indications: Continuation of Home Therapy, GERD 0837 (Given - Provider: Micalea Tejada RN) 08 (Given - Provider: Micaela Tejada RN) 08 (Given - Provider: Micaela Tejada RN) Primidone (MYSOLINE) tablet 50 mg 50 mg, Oral, 4 TIMES DAILY, First dose on Fri08/18/24 at 0000, Until Discontinued 0837 (Given - Provider: Micaela Tejada RN)1330 (Given - Provider: Micaela Tejada RN)1751 (Given - Provider: Micaela Tejada RN)2137 (Given - Provider: Ann Marie Johns RN) 0830 (Given - Provider: Micaela Tejada RN)1325 (Given - Provider: Micaela Tejada RN)1728 (Given - Provider: Micaela Tejada RN)2017 (Given - Provider: Quentin Glasgow RN) 0819 (Given - Provider: Micaela Tejada RN)1300 (Canceled Entry - Provider: System Discharge - Comment: Automatically canceled at discontinue of medication order) rOPINIRole (REQUIP) tablet 0.25 mg 0.25 mg, Oral, DAILY EVERY MORNING, First dose (after last modification) on Fri08/20/24 at 0900, Until Discontinued, Maximum dose of 24 mg/day 0837 (Given - Provider: Micaela Tejada RN) 0829 (Given - Provider: Micaela Tejada RN) 0820 (Given - Provider: Micaela Tejada RN) rOPINIRole (REQUIP) tablet 0.5 mg 0.5 mg, Oral, CUSTOM FREQUENCY (2 times per day), First dose on Fri08/19/24 at 1400, Until Discontinued, Maximum dose of 24 mg/day 1330 (Given - Provider: Micaela Tejada RN)2137 (Given - Provider: Ann Marie Johns RN) 1325 (Given - Provider: Micaela Tejada RN)2150 (Given - Provider: Tina New RN) Senna (SENOKOT) tablet 8.6 mg(Linked Group 2) 8.6 mg, Oral, DAILY, First dose on Fri08/18/24 at 0900, Until Discontinued 0836 (Not Given - Provider: Micaela Tejada RN - Reason: Patient/family refused) 0830 (Not Given - Provider: Micaela Tejada RN - Reason: Patient/family refused) 0819 (Not Given - Provider: Micaela Tejada RN - Reason: Patient/family refused) Senna (SENOKOT) tablet 8.6 mg(Linked Group 2) 8.6 mg, Per NG tube, DAILY, First dose on Fri08/18/24 at 0900, Until Discontinued 0836 (See Alternative - Provider: Micaela Tejada RN) 0830 (See Alternative - Provider: Micaela Tejada RN) 0819 (See Alternative - Provider: Micaela Tejada RN) Sotalol (BETAPACE) tablet 80 mg 80 mg, Oral, EVERY 12 HOURS NON-STANDARD, First dose on Fri08/18/24 at 0030, Until Discontinued, Doses should be by at least 10 hours from last administration. Please contact pharmacy/ordering provider for questions about timing of doses. 0055 (Given - Provider: Ann Marie Johns RN)1330 (Given - Provider: Micaela Tejada RN) 0036 (Given - Provider: Ann Marie Johns RN)1326 (Given - Provider: Micaela Tejada RN) 0006 (Given - Provider: Quentin Glasgow RN)1230 (Canceled Entry - Provider: System Discharge - Comment: Automatically canceled at discontinue of medication order) Timolol maleate (TIMOPTIC) 0.5 % ophthalmic solution 1 drop 1 drop, Left Eye, DAILY, First dose (after last modification) on Fri08/20/24 at 0900, Until Discontinued 0838 (Given - Provider: Micalea Tejada RN) 0832 (Given - Provider: Micaela Tejada RN) 0822 (Given - Provider: Micaela Tejada RN) PRN Medication Order 08/27/2024 08/28/2024 08/29/2024 Acetaminophen (TYLENOL) tablet 325 mg(Linked Group 3) 325 mg, Oral, EVERY 4 HOURS NEEDED, Starting on Fri08/17/24 at 2341, Until Fri08/29/24 at 1330, Mild Pain, Moderate Pain, Maximum dose of acetaminophen is 4000 mg from all sources in 24 hours. 0036 (See Alternative - Provider: Ann Marie Johns RN)0830 (See Alternative - Provider: Micaela Tejada RN)2150 (See Alternative - Provider: Tina New RN) Acetaminophen (TYLENOL) tablet 325 mg(Linked Group 3) 325 mg, Per NG tube, EVERY 4 HOURS NEEDED, Starting on Fri08/17/24 at 2341, Until 08/29/24 at 1330, Mild Pain, Moderate Pain, Maximum dose of acetaminophen is 4000 mg from all sources in 24 hours. 0036 (See Alternative - Provider: Ann Marie Johns RN)0830 (See Alternative - Provider: Micaela Tejada, WON)2150 (See Alternative - Provider: Tina New, RN) Acetaminophen (TYLENOL) tablet 650 mg(Linked Group 3) 650 mg, Oral, EVERY 4 HOURS NEEDED, Starting on Fri08/17/24 at 2341, Until 08/29/24 at 1330, Severe Pain, Oral temp > 99.5, Maximum dose of acetaminophen is 4000 mg from all sources in 24 hours. 0036 (Given - Provider: Ann Marie Johns RN)0830 (Given - Provider: Micaela Tejada, WON)2150 (Given - Provider: Tina New, RN) Acetaminophen (TYLENOL) tablet 650 mg(Linked Group 3) 650 mg, Per NG tube, EVERY 4 HOURS NEEDED, Starting on Fri08/17/24 at 2341, Until 08/29/24 at 1330, Severe Pain, Oral temp > 99.5, Maximum dose of acetaminophen is 4000 mg from all sources in 24 hours. 0036 (See Alternative - Provider: Ann Marie Johns RN)0830 (See Alternative - Provider: Micaela Tejada, WON)2150 (See Alternative - Provider: Tina New, RN) fluticasone (FLONASE) 50 MCG/ACT nasal spray 1 spray 1 spray, Nasal, 2 TIMES DAILY NEEDED, Starting on Fri08/18/24 at 0525, Until Fri08/29/24 at 1330, Rhinitis, Allergies, Dose is for each nostril. 0838 (Given - Provider: Micaela Tejada, WON) hydrALAZINE (APRESOLINE) injection 10 mg(Linked Group 4) 10 mg, Intravenous, EVERY 1 HOUR NEEDED, Starting on 08/21/24 at 1210, Until 08/29/24 at 1330, Other, SBP > 160 mmHg with HR < 60 bpm, Use as initial dose. Use if Heart Rate LESS THAN 60 beats per minute. Higher dose may be administered if lower dose was previously documented as ineffective 10 minutes after administration and did not result in adverse effects (HR>90). hydrALAZINE (APRESOLINE) injection 20 mg(Linked Group 4) 20 mg, Intravenous, EVERY 1 HOUR NEEDED, Starting on 08/21/24 at 1210, Until 08/29/24 at 1330, Other, SBP > 160 mmHg with HR < 60 bpm, Use if Heart Rate LESS THAN 60 beats per minute. Higher dose may be administered if lower dose was previously documented as ineffective 10 minutes after administration and did not result in adverse effects (HR>90). Decrease back to lower dose if patient has adverse effects, or no PRN used in previous 3 hours. HYDROmorphone (DILAUDID) injection 0.2 mg 0.2 mg, Intravenous, EVERY 4 HOURS NEEDED, 2 doses, Starting on 08/21/24 at 0018, Until 08/29/24 at 1330, Severe Pain Labetalol (NORMODYNE) injection 10 mg(Linked Group 5) 10 mg, Intravenous, EVERY 1 HOUR NEEDED, Starting on 08/21/24 at 1210, Until 08/29/24 at 1330, SBP > 160 mmHg with HR >60 bpm, Use as initial dose. Use if Heart Rate GREATER THAN 60 beats per minute. Higher dose may be administered if lower dose was previously documented as ineffective 10 minutes after administration and did not result in adverse effects (HR<60). For vials: labetalol should be treated as a SINGLE USE VIAL. Discard remaining contents after one use. Labetalol (NORMODYNE) injection 20 mg(Linked Group 5) 20 mg, Intravenous, EVERY 1 HOUR NEEDED, Starting on 08/21/24 at 1210, Until 08/29/24 at 1330, SBP > 160 mmHg with HR >60 bpm, Use if Heart Rate GREATER THAN 60 beats per minute. Higher dose may be administered if lower dose was previously documented as ineffective 10 minutes after administration and did not result in adverse effects (HR<60). Decrease back to lower dose if patient has adverse effects, or no PRN used in previous 3 hours. For vials: labetalol should be treated as a SINGLE USE VIAL. Discard remaining contents after one use. Ondansetron (ZOFRAN) tablet 4 mg(Linked Group 6) 4 mg, Oral, EVERY 6 HOURS NEEDED, Starting on Fri08/17/24 at 2341, Until Fri08/29/24 at 1330, Nausea / Vomiting Ondansetron 4mg/2ml (ZOFRAN) injection 4 mg(Linked Group 6) 4 mg, Intravenous, EVERY 6 HOURS NEEDED, Starting on Fri08/17/24 at 2341, Until Fri08/29/24 at 1330, Nausea / Vomiting oxyCODONE (ROXICODONE) tablet 5 mg 5 mg, Oral, EVERY 4 HOURS NEEDED, Starting on Fri08/21/24 at 0018, Until Fri08/29/24 at 1330, Severe Pain, Moderate Pain 2150 (Given - Provider: Tina New RN) 0819 (Given - Provider: Micaela Tejada RN) Polyethylene glycol (MIRALAX) packet 17 g(Linked Group 7) 17 g, Oral, DAILY NEEDED, Starting on Fri08/17/24 at 2341, Until Fri08/29/24 at 1330, Constipation If No Bowel Movement in 48 Hours Polyethylene glycol (MIRALAX) packet 17 g(Linked Group 7) 17 g, Per NG tube, DAILY NEEDED, Starting on Fri08/17/24 at 2341, Until Fri08/29/24 at 1330, Constipation If No Bowel Movement in 48 Hours Linked Groups Order Group 1: Enoxaparin Sodium (LOVENOX) injection 40 mgJump to med 40 mg, Subcutaneous, DAILY, First dose on Fri08/22/24 at 0900, Until Discontinued, For SUBCUTANEOUS route ONLY: alternate injection sites between left and right abdominal wall, pinching location and avoiding area around navel. If unable to use abdominal sites, may use the front or side of thighs., Indications: DVT/PE prophylaxis And PLATELET COUNT (CANCELED) Routine, EVERY 3 DAYS AM LAB, First occurrence on Fri08/24/24 at 0500, Until Specified, New collection Group 2: Senna (SENOKOT) tablet 8.6 mgJump to med 8.6 mg, Oral, DAILY, First dose on Fri08/18/24 at 0900, Until Discontinued Or Senna (SENOKOT) tablet 8.6 mgJump to med 8.6 mg, Per NG tube, DAILY, First dose on Fri08/18/24 at 0900, Until Discontinued Group 3: Acetaminophen (TYLENOL) tablet 325 mgJump to med 325 mg, Oral, EVERY 4 HOURS NEEDED, Starting on Fri08/17/24 at 2341, Until 08/29/24 at 1330, Mild Pain, Moderate Pain, Maximum dose of acetaminophen is 4000 mg from all sources in 24 hours. Or Acetaminophen (TYLENOL) tablet 325 mgJump to med 325 mg, Per NG tube, EVERY 4 HOURS NEEDED, Starting on Fri08/17/24 at 2341, Until 08/29/24 at 1330, Mild Pain, Moderate Pain, Maximum dose of acetaminophen is 4000 mg from all sources in 24 hours. Or Acetaminophen (TYLENOL) tablet 650 mgJump to med 650 mg, Oral, EVERY 4 HOURS NEEDED, Starting on Fri08/17/24 at 2341, Until Fri08/29/24 at 1330, Severe Pain, Oral temp > 99.5, Maximum dose of acetaminophen is 4000 mg from all sources in 24 hours. Or Acetaminophen (TYLENOL) tablet 650 mgJump to med 650 mg, Per NG tube, EVERY 4 HOURS NEEDED, Starting on Fri08/17/24 at 2341, Until 08/29/24 at 1330, Severe Pain, Oral temp > 99.5, Maximum dose of acetaminophen is 4000 mg from all sources in 24 hours. Group 4: hydrALAZINE (APRESOLINE) injection 10 mgJump to med 10 mg, Intravenous, EVERY 1 HOUR NEEDED, Starting on 08/21/24 at 1210, Until 08/29/24 at 1330, Other, SBP > 160 mmHg with HR < 60 bpm, Use as initial dose. Use if Heart Rate LESS THAN 60 beats per minute. Higher dose may be administered if lower dose was previously documented as ineffective 10 minutes after administration and did not result in adverse effects (HR>90). Or hydrALAZINE (APRESOLINE) injection 20 mgJump to med 20 mg, Intravenous, EVERY 1 HOUR NEEDED, Starting on 08/21/24 at 1210, Until 08/29/24 at 1330, Other, SBP > 160 mmHg with HR < 60 bpm, Use if Heart Rate LESS THAN 60 beats per minute. Higher dose may be administered if lower dose was previously documented as ineffective 10 minutes after administration and did not result in adverse effects (HR>90). Decrease back to lower dose if patient has adverse effects, or no PRN used in previous 3 hours. Group 5: Labetalol (NORMODYNE) injection 10 mgJump to med 10 mg, Intravenous, EVERY 1 HOUR NEEDED, Starting on 08/21/24 at 1210, Until 08/29/24 at 1330, SBP > 160 mmHg with HR >60 bpm, Use as initial dose. Use if Heart Rate GREATER THAN 60 beats per minute. Higher dose may be administered if lower dose was previously documented as ineffective 10 minutes after administration and did not result in adverse effects (HR<60). For vials: labetalol should be treated as a SINGLE USE VIAL. Discard remaining contents after one use. Or Labetalol (NORMODYNE) injection 20 mgJump to med 20 mg, Intravenous, EVERY 1 HOUR NEEDED, Starting on 08/21/24 at 1210, Until 08/29/24 at 1330, SBP > 160 mmHg with HR >60 bpm, Use if Heart Rate GREATER THAN 60 beats per minute. Higher dose may be administered if lower dose was previously documented as ineffective 10 minutes after administration and did not result in adverse effects (HR<60). Decrease back to lower dose if patient has adverse effects, or no PRN used in previous 3 hours. For vials: labetalol should be treated as a SINGLE USE VIAL. Discard remaining contents after one use. Group 6: Ondansetron 4mg/2ml (ZOFRAN) injection 4 mgJump to med 4 mg, Intravenous, EVERY 6 HOURS NEEDED, Starting on Tu08/17/24 at 2341, Until 08/29/24 at 1330, Nausea / Vomiting Or Ondansetron (ZOFRAN) tablet 4 mgJump to med 4 mg, Oral, EVERY 6 HOURS NEEDED, Starting on 08/17/24 at 2341, Until 08/29/24 at 1330, Nausea / Vomiting Group 7: Polyethylene glycol (MIRALAX) packet 17 gJump to med 17 g, Oral, DAILY NEEDED, Starting on 08/17/24 at 2341, Until 08/29/24 at 1330, Constipation If No Bowel Movement in 48 Hours Or Polyethylene glycol (MIRALAX) packet 17 gJump to med 17 g, Per NG tube, DAILY NEEDED, Starting on e 08/17/24 at 2341, Until 08/29/24 at 1330, Constipation If No Bowel Movement in 48 Hours Reason for Visit (unrecogniz ed section and content) Reason Comments Follow-up FOR RECORDS PERTAINING TO PATIENTS WHO ARE [...] BE BASED ON THE PRIMARY CLINICAL RECORDS. [employer] provides no warranty or guarantee of the accuracy or completeness of information in this document.
--- NOTE | 2024-11-19 08:48 | MRI_ITS ---
PROCEDURE: SPINE THORACIC (ROUTINE) 11/19/2024 REASON FOR EXAM: SUSPECTED COMPRESSION FRACTURE FROM RECENT THORACIC XRAY TECHNIQUE: Procedure Code: MRISPT Modality: MR Procedure: SPINE THORACIC (ROUTINE) Multiplanar and multisequence images were obtained. COMPARISON: Thoracic spine series of 11/03/2024. FINDINGS: No abnormal osseous signal is seen, and no subluxation is evident. Again seen are multiple anterior bridging syndesmophytes, similar to the plain film comparison. Mild wedge compression of the T7 vertebral body is seen, at its anterior aspect, chronic in appearance. Partial fusion of the anterior aspects of the T6 and T7 vertebral bodies is noted. A very mild degree of kyphosis is also present. No significant disc bulge or herniation is seen. No evidence of spinal canal stenosis. No significant degree of neural foraminal narrowing is appreciated. No paraspinous fluid collection is seen. MRI/Spine Thoracic (Routine) IMPRESSION: Chronic appearing wedge compression of the T7 vertebral body, but no acute proc ess is seen. No subluxation is noted. Additional findings as noted. Reading Location: [place] [id number]
== END | disposition home or self-care (01) ==
LOC: MRI 08:13
PROVIDERS: PCP Family Medicine; Referring Provider Clinical Nurse Specialist Adult Health; Visit Provider Clinical Nurse Specialist Adult Health
DX: M48.54XA Collapsed vertebra, not elsewhere classified, thoracic region, initial encounter for fracture (principal)
CPT/HCPCS: 72146

== ENCOUNTER → 2024-12-08 | Outpatient (CLI) | payer OTHER, SELFPAY ==
[2024-12-08 09:36] LABS: Hematocrit 44.5 % (37-47); Hemoglobin 13.8 g/dL (12.0-15.0); Immature Granulocytes Count 0.030 X10^3/uL (0.0-0.0); Mean Corp Hgb Conc 31.0 g/dL (32-36); Mean Corpuscular Volume 85.1 fL (81-99); Mean Platelet Vol. 12.3 fl (6.2-12.0); NRBC Flagged by Analyzer 0 % (0-5); Platelet Count 235 K/mm3 (150-450); RBC Distribution Width CV 14.0 % (11.6-14.6); RBC Distribution Width SD 43.3 fl (35.1-43.9); Red Blood Count 5.23 M/mm3 (4.2-5.4); White Blood Count 8.0 K/mm3 (4.4-11.0)
== END | disposition home or self-care (01) ==
LOC: LAB 08:55
PROVIDERS: PCP Family Medicine; Referring Provider Internal Medicine Gastroenterology; Visit Provider Internal Medicine Gastroenterology
DX: K50.90 Crohn's disease, unspecified, without complications (principal)
CPT/HCPCS: 36415; 85025

== ENCOUNTER → 2024-12-17 | Outpatient (CLI) | payer OTHER, SELFPAY | END | disposition home or self-care (01) | LOC: LAB.FUTURE 08:29 | PROVIDERS: PCP Family Medicine; Referring Provider Family Medicine; Visit Provider Family Medicine | DX: R05.9 Cough, unspecified (principal) | CPT/HCPCS: 87070; 87077; 87205 ==

== ENCOUNTER → 2025-01-19 | Outpatient (CLI) | payer OTHER, SELFPAY ==
[2025-01-19 11:00] LABS: Cholesterol 181 mg/dL (<=200); Low Density Lipoprotein Calc. 96 mg/dL; Triglycerides 188 mg/dL; Very Low Density Lipoprotein 38 mg/dL (5-40); Vitamin B12 324 pg/mL (180-914); cholesterol:hdl ratio screen 3.45
== END | disposition home or self-care (01) ==
LOC: MTLAB 09:08
PROVIDERS: PCP Family Medicine; Referring Provider Family Medicine; Visit Provider Family Medicine
DX: E78.5 Hyperlipidemia, unspecified (principal); E53.8 Deficiency of other specified B group vitamins; R53.83 Other fatigue
CPT/HCPCS: 36415; 80061; 82607; 84443